=== PATIENT | female | born 1955 | race Caucasian/White ===

== ENCOUNTER 2021-04-16 10:25 | Outpatient (REF) | payer MEDICARE, MEDICAID, SELFPAY ==
--- NOTE | ~2021-04-16 | CT_ITS ---
EXAMINATION: CT HEAD WITHOUT CONTRAST CLINICAL INFORMATION: Hyponatremia. COMPARISON: None TECHNIQUE: Contiguous axial imaging was performed from the skull base to vertex without intravenous administration of contrast. This CT examination was performed using dose optimization techniques as appropriate, variously including the following: *Automated exposure control *Adjustment of mA and/or kV according to patient size (this includes techniques or standardized protocols for targeted exams where dose is matched to indication/reason for exam; i.e. extremities or head) *Use of iterative reconstruction technique DLP: 783 mGy-cm FINDINGS: There is no evidence of acute intracranial hemorrhage or territorial infarction. No abnormal mass effect or midline shift is seen. Sawyer to white matter differentiation is well preserved. No extra-axial fluid collections are identified. The ventricles are normal in size. There is no abnormal attenuation within the brain parenchyma. Cavernous carotid calcifications. The osseous structures and soft tissues are normal. Right maxillary sinus hyperostosis. Mucosal thickening partially imaged within the inferior maxillary sinus, polypoid. Remainder of the paranasal sinuses are clear. Mastoid air cells are pneumatized. CT/CT head/brain wo con IMPRESSION: Unremarkable CT imaging appearance of the brain. Chronic changes of the right maxillary sinus indicative of chronic sinusitis, without significant active inflammation.
== END 2021-04-16 10:26 | disposition home or self-care (01) ==
LOC: HO.CT 10:25
PROVIDERS: PCP Hospitalist; Visit Provider Hospitalist
DX: E87.1 Hypo-osmolality and hyponatremia (principal)
CPT/HCPCS: 70450

== ENCOUNTER 2021-04-23 12:23 | Outpatient (REF) | payer MEDICARE, MEDICAID, SELFPAY ==
--- NOTE | ~2021-04-23 | MM_ITS ---
EXAMINATION: MM SCREENING DIGITAL BREAST TOMOSYNTHESIS, BILATERAL CLINICAL INFORMATION: Screening. Asymptomatic. Benign left breast surgery 2008. The lifetime risk of breast cancer based on the Tyrer-Cuzick Model is 5%. COMPARISON: Mammography: 07/25/2019, 07/10/2018, 05/26/2017 TECHNIQUE: Digital breast tomosynthesis is performed in both the craniocaudal and mediolateral oblique views along with computer-aided detection (CAD). Synthesized 2D images are generated from the tomosynthesis. FINDINGS: There are scattered areas of fibroglandular density (ACR BI-RADS breast composition Category b). There are no significant masses, abnormal calcifications, or other abnormalities. Parenchymal pattern is similar to prior exams. There is no developing density. No significant changes. The axilla are unremarkable. MM/MM tomosynthesis screening BI IMPRESSION: No mammographic evidence of malignancy. ASSESSMENT: BI-RADS 1: Negative RECOMMENDATION: Routine annual mammography screening. This patient's information was entered into a reminder system with a target due date for their next mammogram.
== END 2021-04-23 12:24 | disposition home or self-care (01) ==
LOC: HO.MAMMO 12:23
PROVIDERS: Visit Provider Hospitalist
DX: Z12.31 Encounter for screening mammogram for malignant neoplasm of breast (principal)
CPT/HCPCS: 77063; 77067

== ENCOUNTER 2021-11-24 19:43 | Inpatient (IN) | payer MEDICARE, MEDICAID, SELFPAY ==
--- NOTE | ~2021-11-24 | CT_ITS ---
EXAMINATION: CT HEAD WITHOUT CONTRAST CLINICAL INFORMATION: Encephalopathy. Rule out intracranial process. COMPARISON: 04/16/2021 TECHNIQUE: Contiguous axial imaging was performed from the skull base to vertex without intravenous contrast. This CT examination was performed using dose optimization techniques as appropriate, variously including the following: * Automated exposure control * Adjustment of mA and/or kV according to patient size (this includes techniques or standardized protocols for targeted exams where dose is matched to indication/reason for exam; i.e. extremities or head) Use of iterative reconstruction technique DLP: 748 mGy-cm. FINDINGS: There is no evidence of acute intracranial hemorrhage or territorial infarction. No abnormal mass effect or midline shift is seen. Sawyer to white matter differentiation is well preserved. No extra-axial fluid collections are identified. No hydrocephalus. Proportional prominence of the ventricles and sulcal spaces is consistent with mild volume loss. There is no abnormal attenuation within the brain parenchyma. The osseous structures and soft tissues are normal. Mild opacification of the right maxillary sinus and right ethmoid air cells. Significant opacification of the frontal sinuses. The mastoid air cells and visualized portions of the paranasal sinuses are otherwise well aerated. CT/CT head/brain wo con IMPRESSION: No acute intracranial pathology. Paranasal sinus opacification.
--- NOTE | ~2021-11-24 | XR_ITS ---
EXAMINATION: XR CHEST CLINICAL INFORMATION: Respiratory distress COMPARISON: Chest 11/27/2021 TECHNIQUE: Frontal view of the chest was obtained. FINDINGS: The lungs are hypoexpanded with bilateral parahilar increased markings and opacification likely CHF. Underlying interstitial pneumonitis cannot be excluded. There is dense left lower lobe opacity at this time could be secondary to underexposure. There is a right central venous catheter with its tip in proximal to mid SVC. Endotracheal tube and enteric tube have been removed. XR/XR chest 1V IMPRESSION: Findings suggestive of CHF. Interstitial pneumonitis cannot be excluded. There is dense levels lower lobe consolidation. Endotracheal tube and enteric tube have been removed. Right jugular central venous catheter tip remains in proximal to mid SVC.
--- NOTE | ~2021-11-24 | CT_ITS ---
EXAMINATION: CT ABDOMEN AND PELVIS WITH CONTRAST CLINICAL INFORMATION: Query fistula COMPARISON: CT abdomen pelvis 12/08/2021 TECHNIQUE: Multidetector volumetric images were obtained from the superior aspect of the liver through the pubic symphysis following administration 85 mL of Omnipaque 350 intravenous contrast. Sagittal and coronal reformatted images were obtained on the technologist's workstation. Oral contrast: No This CT examination was performed using dose optimization techniques as appropriate, variously including the following: *Automated exposure control *Adjustment of mA and/or kV according to patient size (this includes techniques or standardized protocols for targeted exams where dose is matched to indication/reason for exam; i.e. extremities or head) *Use of iterative reconstruction technique DLP: 678 mGy-cm FINDINGS: LUNG BASES: Trace right pleural effusion, decreased from prior. ABDOMINAL AND PELVIC WALL: Skin thickening over the ventral abdominal and pelvic wall with infiltration of the underlying subcutaneous fat, recommend correlation with direct visualization to exclude soft tissue infection. Subcutaneous defect with surgical drain and presumed packing material noted in the gluteal cleft soft tissues overlying the sacrum with multiple foci of subcutaneous gas, without sai underlying fluid collection. LIVER AND BILIARY TREE: The liver is normal in size, shape, and attenuation. GALLBLADDER: Cholelithiasis. Motion degradation somewhat limits evaluation of the gallbladder, making wall thickening or subtle inflammatory change difficult to exclude. PANCREAS: Unremarkable SPLEEN: Unremarkable ADRENAL GLANDS: Unremarkable. KIDNEYS AND URETERS: Unremarkable. UPPER GASTROINTESTINAL TRACT: Small hiatal hernia. VASCULAR: Unremarkable. LYMPH NODES/PERITONEUM: No lymphadenopathy. FREE FLUID: No free fluid. BLADDER: Arias catheter decompresses the bladder. PELVIC VISCERA: A 4.7 x 3.7 cm unilocular right adnexal simple cyst, previously 5.1 x 2.4 cm. LOWER GASTROINTESTINAL TRACT: A tract of soft tissue with subtle gas is noted tracking posteriorly from the rectum at 6:00, 3:77 into the gluteal musculature, left lateral to the sacrum suggestive of a fistulous track, communicating with the gluteal defect. OSSEOUS STRUCTURES: Unremarkable. CT/CT abdomen pelvis w con IMPRESSION: Subcutaneous defect with surgical drain and presumed packing material noted in the gluteal cleft soft tissues overlying the sacrum with multiple foci of subcutaneous gas, without sai underlying fluid collection. A tract of soft tissue with subtle gas is noted tracking posteriorly from the rectum at 6:00 into the gluteal musculature, left lateral to the sacrum suggestive of a fistulous track, communicating with the gluteal defect. Skin thickening over the ventral abdominal and pelvic wall with infiltration of the underlying subcutaneous fat, recommend correlation with direct visualization to exclude soft tissue infection. Cholelithiasis. Motion degradation somewhat limits evaluation of the gallbladder, making wall thickening or subtle inflammatory change difficult to exclude on the basis of this exam and if any clinical concern an ultrasound could be obtained. A 4.7 cm unilocular simple appearing right adnexal cyst. Recommend follow-up ultrasound in 6-12 months. Trace right pleural effusion decreased from prior.
--- NOTE | ~2021-11-24 | XR_ITS ---
EXAMINATION: XR CHEST CLINICAL INFORMATION: NG tube. ET tube. COMPARISON: None TECHNIQUE: Frontal portable view of the chest was obtained. 8:43 PM FINDINGS: Tubes and lines: 1. Endotracheal tube catheter 2.5 cm above gisselle. 2. Right IJ catheter. 4 cm above the cavoatrial junction. This is unchanged since prior study. 3. NG tube. Catheter passes down into the stomach. Catheter tip below lower margin of the film. There is continued dense left mid and lower lung with silhouetting of the left diaphragm. Central pulmonary vascular prominence remains unchanged. No pneumothorax. XR/XR chest 1V IMPRESSION: 1. Endotracheal tube catheter 2.5 cm above gisselle. 2. Right IJ catheter. 4 cm above the cavoatrial junction. 3. NG tube. Catheter passes down into the stomach. Catheter tip below lower margin of the film. 4. Persistent pulmonary vascular congestion. 5. Persistent dense left mid and lower lung.
--- NOTE | ~2021-11-24 | XR_ITS ---
EXAMINATION: XR CHEST CLINICAL INFORMATION: Chest COMPARISON: 06/24/2012 TECHNIQUE: Frontal view of the chest was obtained. FINDINGS: Since 2012, the heart size is increased but is still within normal limits. Increased patchy density seen at the right lung base and to a lesser extent left. A small left pleural effusion may be present. There is mild upper zone redistribution suggesting mild pulmonary vascular congestion but no gross edema. XR/XR chest 1V IMPRESSION: Mild pulmonary vascular congestion with right basilar patchy opacity in question of small left pleural effusion.
--- NOTE | ~2021-11-24 | CT_ITS ---
EXAMINATION: CT ABDOMEN AND PELVIS WITHOUT CONTRAST CLINICAL INFORMATION: Abdominal pain COMPARISON: 06/27/2018 TECHNIQUE: Multidetector volumetric imaging was performed from the superior aspect of the liver through the pubic symphysis. Sagittal and coronal reformatted images were obtained on the technologist's workstation. This CT examination was performed using dose optimization techniques as appropriate, variously including the following: *Automated exposure control *Adjustment of mA and/or kV according to patient size (this includes techniques or standardized protocols for targeted exams where dose is matched to indication/reason for exam; i.e. extremities or head) *Use of iterative reconstruction technique DLP: 1238 mGy-cm FINDINGS: LUNG BASES: Small right pleural effusion with accompanying atelectasis. LIVER, GALLBLADDER, AND BILIARY TREE: The liver is normal in size, shape, and attenuation. No focal hepatic lesion or biliary ductal dilatation is present. Cholelithiasis.. Small perihepatic ascites. PANCREAS: Unremarkable. SPLEEN: Unremarkable. ADRENAL GLANDS: Unremarkable. KIDNEYS AND URETERS: The kidneys are normal in size, shape, and attenuation. No hydronephrosis, hydroureter, or calculi seen. No perinephric stranding. BLADDER: Unremarkable. GASTROINTESTINAL TRACT: No bowel related abnormalities. Small ascites. ABDOMINAL WALL: No hernias. Anasarca. LYMPH NODES: Normal. VASCULAR: Aorta is mildly atherosclerotic but normal caliber. PELVIC VISCERA: Uterus and left adnexa unremarkable. Interval increase in size of a cyst within the right adnexa measuring 5.2 x 3.9 x 4.5 cm, previously 3.2 x 2.2 x 2.8 cm by my measurements. Small volume pelvic free fluid OSSEOUS STRUCTURES: Unremarkable. CT/CT abdomen pelvis wo con IMPRESSION: * No acute findings within the abdomen or pelvis to definitively explain the patient's symptomatology. * Cholelithiasis. If there is concern for cholecystitis, consider right upper quadrant ultrasound. * Anasarca and small ascites. * Small right pleural effusion with accompanying atelectasis. * Interval increase in size of a simple fluid attenuating cyst within the right adnexa now measuring up to 5.2 cm, previously 3.2 cm in 2018. Recommend pelvic ultrasound for further evaluation.
--- NOTE | ~2021-11-24 | XR_ITS ---
EXAMINATION: XR CHEST CLINICAL INFORMATION: TLC placement COMPARISON: Chest x-ray 11/27/2019 TECHNIQUE: Frontal portable view of the chest was obtained. 2100 hours FINDINGS: Tubes and lines: 1. CVP catheter tip in superior vena cava approximately 4 cm proximal to the caval atrial junction. There is no pneumothorax. 2. Gastric tube tip and sidehole in stomach. Persistent moderate central pulmonary vascular prominence. Persistent hazy opacity at the mid and right lower lung. This may be due to airspace disease and pleural effusion. XR/XR chest 1V IMPRESSION: 1. CVP catheter tip in superior vena cava approximately 4 cm proximal to the caval atrial junction. There is no pneumothorax. 2. Gastric tube tip and sidehole in stomach. 3. Persistent hazy density right lung base due to airspace disease and pleural effusion.
--- NOTE | ~2021-11-24 | XR_ITS ---
EXAMINATION: XR CHEST CLINICAL INFORMATION: Hypoxia COMPARISON: None TECHNIQUE: Frontal view of the chest was obtained. FINDINGS: There is cardiomegaly with prominent pulmonary vascularity suggestive of CHF/pulmonary edema. Right jugular central venous catheter tip remains in mid SVC. The lungs are expanded and clear. No gross bony abnormality seen. XR/XR chest 1V IMPRESSION: Cardiomegaly with mild CHF. Right jugular central venous catheter is in proximal SVC. No change from previous exam 12/17/2021.
--- NOTE | ~2021-11-24 | XR_ITS ---
EXAMINATION: XR CHEST CLINICAL INFORMATION: Hypoxia COMPARISON: Previous chest x-ray most recent 12/31/[address] 12/08/2021 TECHNIQUE: Frontal view of the chest was obtained. FINDINGS: The cardiac silhouette is enlarged but stable. There is volume loss to the left hemithorax. There is improvement in the previously identified left lower lobe pneumonia. There is right-sided pulmonary venous redistribution and increased perihilar markings. Findings are questionable for mild CHF versus pneumonia. There is no pleural effusion. There is no pneumothorax. There is a right upper extremity PICC line with tip projecting over the distal right subclavian vein/very proximal SVC. There are degenerative changes of the spine. XR/XR chest 1V IMPRESSION: Volume loss to the left hemithorax. Improving left lower lobe pneumonia. Stable enlargement of the cardiac silhouette. Right perihilar airspace disease. Differential would include pulmonary edema and pneumonia.
--- NOTE | ~2021-11-24 | XR_ITS ---
EXAMINATION: XR CHEST CLINICAL INFORMATION: Shortness of breath COMPARISON: 12/13/2021 TECHNIQUE: Frontal view of the chest was obtained. FINDINGS: Right IJ central line tip lies in the region of the upper to mid SVC. Lung volumes are symmetric. Central vasculature appears mildly prominent. Possible small left pleural effusion. No appreciable pneumothorax. The cardiomediastinal silhouette is stable. No acute osseous findings are seen. XR/XR chest 1V IMPRESSION: Mild prominence of the central vasculature may reflect a degree of congestion. Possible small left pleural effusion.
--- NOTE | ~2021-11-24 | XR_ITS ---
EXAMINATION: XR CHEST CLINICAL INFORMATION: Shortness of breath COMPARISON: Chest x-rays of 11/24/2021 and 06/24/2012 TECHNIQUE: Frontal view of the chest was obtained. FINDINGS: The cardiomediastinal silhouette is unchanged. The patient is mildly rotated to the left. No abnormal tracheal deviation. Lungs are hypoexpanded. Hazy opacification in the right mid and lower lung zone is not significantly changed compared to last x-ray of 11/24/2021. Small right pleural effusion is noted on the CT scan of the abdomen and pelvis of 11/25/2021. No evidence of from pulmonary edema or pneumothorax. No acute osseous abnormality. XR/XR chest 1V IMPRESSION: No significant interval change is noted in the appearance of the chest compared to previous x-ray of 11/24/2021. Hazy opacification in the right mid and lower lung zone likely represent combination of layering pleural effusion and associated airspace opacities.
--- NOTE | ~2021-11-24 | XR_ITS ---
EXAMINATION: XR CHEST CLINICAL INFORMATION: Follow-up bronchoscopy for mucous plug of the left lower lobe COMPARISON: 12/06/2021 and 12/08/2021 TECHNIQUE: Frontal view of the chest was obtained. FINDINGS: Endotracheal tube terminates 4 cm above the gisselle. Enteric tube extends into the stomach. Right internal jugular central venous catheter terminates over the mid SVC. Cardiac leads overlie the chest. The lungs are well expanded. There is a persistent retrocardiac opacity which may represent left lower lobe atelectasis. There is improved aeration of the left midlung. Patchy opacity of the right midlung again noted, as seen on prior. No pneumothorax. The cardiomediastinal silhouette it is unchanged. XR/XR chest 1V IMPRESSION: Improved aeration of the left midlung with persistent retrocardiac opacity which may represent residual left lower lobe atelectasis. Similar right lung opacities. Endotracheal tube terminates 4 cm above the gisselle.
--- NOTE | ~2021-11-24 | XR_ITS ---
EXAMINATION: XR CHEST CLINICAL INFORMATION: Dyspnea. COMPARISON: Chest 12/11/2021 TECHNIQUE: Frontal view of the chest was obtained. FINDINGS: The lungs are well-expanded with prominent bilateral interstitial markings question mild CHF versus interstitial pneumonitis. Patchy opacity in the left lung base is stable. There is a right jugular central venous catheter stable. Endotracheal tube and enteric tube have been removed. No gross bony abnormality seen. XR/XR chest 1V IMPRESSION: Endotracheal tube and enteric tube have been removed. Bilateral parahilar prominent interstitial markings and patchy opacity in the left lung base is unchanged.
--- NOTE | ~2021-11-24 | XR_ITS ---
EXAMINATION: XR CHEST CLINICAL INFORMATION: Increased work of breathing. COMPARISON: Chest radiograph from earlier today at 4:38 AM. TECHNIQUE: AP view of the chest was obtained. FINDINGS: A right IJ CVC terminates at the level of the cavoatrial junction. Stable cardiomegaly. Mildly increased central vasculature engorgement, more apparent in the right hilum. No large pleural effusion. No pneumothorax. No acute osseous abnormalities. XR/XR chest 1V IMPRESSION: Suspect worsening pulmonary edema manifested by increased interstitial and vascular markings centrally.
--- NOTE | ~2021-11-24 | XR_ITS ---
EXAMINATION: XR CHEST CLINICAL INFORMATION: Right internal jugular replacement COMPARISON: 12/09/2021 TECHNIQUE: Frontal view of the chest was obtained. FINDINGS: Endotracheal tube terminates 5 cm above the gisselle. Enteric tube extends into the stomach. Right internal jugular central venous catheter terminates over the mid SVC. Cardiac leads overlie the chest. The lungs are well expanded. Persistent small left pleural effusion with retrocardiac opacity. Hazy opacity at the right base is unchanged. Increasing opacification of the right upper lung. No pneumothorax. The cardiomediastinal silhouette remains prominent. XR/XR chest 1V IMPRESSION: Endotracheal tube terminates 5 cm above the gisselle. There is a right internal jugular central venous catheter terminating over the mid SVC. No pneumothorax. Increasing hazy opacification of the right upper lung with persistent right basilar opacity. Persistent retrocardiac opacity likely representing comminution of pleural effusion with atelectasis/pneumonia.
--- NOTE | ~2021-11-24 | CT_ITS ---
EXAMINATION: CT CHEST, ABDOMEN AND PELVIS WITHOUT CONTRAST CLINICAL INFORMATION: Worsening hypoxia and abdominal distention COMPARISON: CT abdomen pelvis 11/25/2021 and multiple prior chest radiographs TECHNIQUE: Multidetector volumetric imaging was performed from the thoracic inlet through the pubic symphysis without IV contrast. Sagittal and coronal reformatted images were obtained on the technologist's workstation. This CT examination was performed using dose optimization techniques as appropriate, variously including the following: *Automated exposure control *Adjustment of mA and/or kV according to patient size (this includes techniques or standardized protocols for targeted exams where dose is matched to indication/reason for exam; i.e. extremities or head) *Use of iterative reconstruction technique DLP: 1545 mGy-cm FINDINGS: CHEST: Lung: The endotracheal tube protrudes just slightly into the very proximal portion of the right mainstem bronchus and should be pulled back by at least 3 cm. There is left lower lobe collapse/consolidation with diffuse patchy infiltrates involving the right upper lobe and right lower lobe. Some focal patchy infiltrates also present in the left upper lobe. Mediastinum: Endotracheal tube as above. Right IJ line with tip in SVC. Main pulmonary artery dilated at 3.5 cm suggesting pulmonary hypertension. Small mediastinal lymph nodes are present but there is no mediastinal or hilar lymphadenopathy seen. Pericardium/Pleura: A small left pleural effusion is seen and a trace right pleural effusion is present. Chest Wall/Axilla: Unremarkable ABDOMEN/PELVIS: Peritoneal Space: A small amount of ascites is present. Liver, Gallbladder, Biliary Tree: The liver is normal in size, shape, and attenuation. No focal hepatic lesion or biliary ductal dilatation is present. The gallbladder contains at least one dependent gallstone but is otherwise unremarkable with no evidence of gallbladder wall thickening, or obvious pericholecystic inflammatory changes. Pancreas: Unremarkable Spleen: Unremarkable Adrenal Glands: Unremarkable Kidneys and Ureters: The kidneys are normal in size, shape, and attenuation. No hydronephrosis, hydroureter, or calculi seen. No perinephric stranding. Bladder: Arias catheter in the bladder which is empty. Gastrointestinal Tract: The NG tube is present with its tip in the duodenum. A rectal tube is in place. A large amount of fluid is present in a dilated right colon measuring about 9 cm. There is mild gaseous distention of the transverse colon. A focal point of obstruction is not seen. Large amount of fluid is present in distal jejunal loops as well. No focal point of obstruction is not seen. Findings more suggestive of ileus. The appendix is not seen but there is no evidence of appendicitis. Abdominal Wall: No significant hernia is appreciated. Lymph Nodes: No lymphadenopathy. Vascular: The aorta demonstrates calcific atherosclerotic plaque without aneurysm... The IVC appears unremarkable. PELVIC VISCERA: Surgically absent OSSEUS STRUCTURES: Mild degenerative changes are noted in the spine. No bony destructive lesions are seen. CT/CT abdomen pelvis wo con IMPRESSION: * ET tube protrudes into the right mainstem bronchus slightly and should be pulled back at least 3 cm. * Bilateral multifocal infiltrates with small left effusion and trace right effusion. Collapse/consolidation left lower lobe. * Cholelithiasis. * Dilated fluid-filled colon and some mildly dilated. Small is small bowel. Focal point of obstruction is not seen. Findings may represent an ileus. This critical result was discussed with Dr. Mehta, at 12:45 AM on 12/08/2021 and it was ascertained that the content and urgency of the report was understood at the time of direct communication.
--- NOTE | ~2021-11-24 | IR_ITS ---
PROCEDURE: IR INSERTION OF PICC CLINICAL INFORMATION: Difficult patient failed attempt of PICC line insertion by nursing. COMPARISON: None TECHNIQUE: Following obtaining consent from the referring physician, patient was placed on fluoroscopy table and limited ultrasound imaging was obtained through the right arm. An optimal site was selected and marked on the upper arm. The marked site was cleaned and draped in usual sterile manner 1% lidocaine was injected at the puncture site. Under sterile ultrasound guidance a single wall needle was advanced and right basilic vein was punctured. After obtaining venous return a thin guidewire was advanced under fluoroscopy and placed in SVC and the needle withdrawn. A 5-Chilean dilator sheath was introduced over the guidewire. The guidewire and the dilator were removed and a precut 5-Chilean single-lumen PICC catheter was advanced over the guidewire and through the peel-away sheath into the SVC. The guidewire and the peel-away sheath were removed and a single image obtained over the chest for documentation. The catheter was flushed with saline followed by heparin. Simple dressing applied at the puncture site. All elements of maximal sterile barrier technique followed including use of cap, mask, sterile gown, sterile gloves, a sterile full body drape and hand hygiene. Also followed skin preparation with 2% chlorhexidine for cutaneous antisepsis, and sterile ultrasound preparation with sterile gel and probe cover when applicable. Dr. Rony Hogan was present during the exam for sedation. FLUOROSCOPY TIME: 0.7 minutes. DOSE AREA PRODUCT: 275 cGycm2 FINDINGS: On preliminary ultrasound imaging there is a very small cephalic vein. The basilic vein and the brachial veins are patent. Approximately 35 cm long single-lumen PICC catheter was advanced through the right basilic vein with its tip in proximal SVC. Patient tolerated procedure extremely well. IR/IR cvc insert peripheral IMPRESSION: Successful ultrasound and fluoroscopy-guided placement of right PICC catheter, 35 cm long, with its tip in proximal SVC, ready for use.
[2021-11-24 20:03] VITALS: BP 125/89; BP 170/110; PULSE 149; PULSE 150; RESP 25; TEMP 37; O2SAT 97; O2SAT 98; BMI 61.2
--- NOTE | 2021-11-24 20:09 | ECG_ITS ---
Test Reason : DYSRYTHMIA Blood Pressure : / mmHG Vent. Rate : 134 BPM Atrial Rate : 000 BPM P-R Int : 000 ms QRS Dur : 076 ms QT Int : 266 ms P-R-T Axes : 000 080 095 degrees QTc Int : 397 ms Atrial flutter with rapid rate Low voltage QRS Abnormal ECG When compared with ECG of 14-APR-2018 00:09, rhythm change Referred By: Generic ED Physician Electronically Signed By:NAZANIN GARDNER
--- NOTE | 2021-11-24 20:12 | ED.CHESTPAIN ---
HPI - Chest Pain General Chief Complaint: Chest Pain Stated Complaint: Weakness Time Seen by Provider: 11/24/21 20:12 Source: patient Mode of arrival: EMS Limitations: no limitations History of Present Illness HPI narrative: Patient's history of alcoholic cirrhosis dementia hyponatremia and chronic renal disease schizoaffective disorder asthma came from the shelter for palpitation and shortness of breath started prior to arrival when EMS reached was between 90-150 AFib. Patient felt dizzy and lightheaded never had similar episode in the past palpitations started before the chest pain no fever no chills also patient has leg swelling which is going on for last few days Related Data Allergies Allergy/AdvReac Type Severity Reaction Status Date / Time Sulfa (Sulfonamide Allergy Intermediate HIVES Verified 11/24/21 20:49 Antibiotics) Review of Systems Review of Systems: Yes all other systems are reviewed and are negative [facility] Social History Social History Advance Directives: No Physical Exam Vital Signs: Vital Signs: Last Vital Signs Temp 98.6 F 11/24/21 20:03 Pulse 79 11/24/21 22:11 Resp 24 H 11/24/21 22:11 BP 106/62 11/24/21 22:11 Pulse Ox 92 11/24/21 22:11 BMI result Body Mass Index 61.2 Appearance: Alert. Oriented X3. No acute distress. Eyes: No pallor/icterus ENT: Pharynx normal. Oral Mucosa moist Neck: Normal inspection. Neck supple. CVS: Tachycardia irregular irregular no murmur rub or gallop, Pulses normal. Respiratory: No respiratory distress. Equal air entry bilateral, no wheezing/rales/rhonchi Abdomen: Soft and nontender. Bowel sounds are present, no mass palpable, no CVA tenderness Skin: Skin warm and dry. Normal skin color. Normal skin turgor. Extremities: 2+ lower extremity edema. No calf tenderness Neuro: Oriented X 3. No motor deficit. No sensory deficit.No cerebellar signs , cranial nerves II-XII intact MDM - Chest Pain MDM Narrative Medical decision making narrative: 00 Patient new onset of atrial fibrillation heart rate 162 at 8 am [place] feeling much better will give him got CardizemX2 plan to admit had a Blake score of 3 will start her on Eliquis patient labs showed elevated potassium and low sodium patient never had high potassium in the past looks like lab error will repeat the potassium also check the magnesium and TSH 0030 patient received 2 doses of Cardizem is still heart rate increased to 140 will start on Cardizem drip patient has elevated WBC count chest x-ray showed possible infiltrate likely pneumonia patient been complaining of cough for last 2 days with mucopurulent phlegm but will start her on antibiotics for possible pneumonia will do the CT scan of the abdomen as patient also complaining of diffuse abdominal pain. Patient has low sodium which seems to be chronic with SIADH will do the fluid restrictions had hyperkalemia of a potassium 5.8 was given calcium gluconate Lab Data Attestation: I reviewed the patient's lab results. Result diagrams: 11/24/21 20:38 11/24/21 22:10 Labs: Lab Results 11/24/21 11/24/21 11/24/21 Range/Units 20:38 20:38 20:38 WBC 17.9 H (4.8-10.8) X10*3/uL RBC 5.14 (4.20-5.50) X10*6/uL Hgb 9.8 L (12.0-16.0) g/dl Hct 33.7 L (37.0-47.0) % MCV 65.6 L (80.0-98.0) fL MCH 19.1 L (27.0-33.0) pg MCHC 29.1 L (31.0-35.0) g/dl RDW 20.6 H (11.0-16.0) % Plt Count 395 (160-400) X10*3/uL MPV 8.8 L (9.4-12.3) fL Immature Gran % (Auto) Cancelled Neut % (Auto) Cancelled Lymph % (Auto) Cancelled [place] % (Auto) Cancelled Eos % (Auto) Cancelled Baso % (Auto) Cancelled Lymph # (Auto) Cancelled [place] # (Auto) Cancelled Eos # (Auto) Cancelled Baso # (Auto) Cancelled Abs Immat Gran (auto) Cancelled Absolute Neuts (auto) Cancelled Absolute Nucleated RBC 0.140 H (0.0-0.012) X10*3/uL Nucleated RBC % (auto) 0.8 H (0.0-0.2) /100WBC Neutrophils % (Manual) 89 H (45-73) % Band Neutrophils % 2 L (3-5) % Lymphocytes % (Manual) 6 L (20-40) % Monocytes % (Manual) 3 (2-11) % Abs Neuts (Manual) 16.3 H (2.0-8.3) X10*3/uL Lymphocytes # (Manual) 1.1 L (1.2-4.9) X10*3/uL Monocytes # (Manual) 0.5 (0.1-1.2) X10*3/uL Platelet Estimate NORMAL (NORMAL) Plt Morphology Comment NORMAL RBC Morphology NOTED Acanthocytes (Spur) 1+ (0-2) /OIF PT (9.9-13.0) SEC INR (0.9-1.1) APTT (24.1-38.0) SEC Sodium 122 L (135-145) mmol/L Potassium 6.5 H* (3.3-5.1) mmol/L Chloride 89 L (96-108) mmol/L Carbon Dioxide 27 (22-29) mmol/L Anion Gap 13 (12-20) BUN 14 (9-16) mg/dL Creatinine 0.84 (0.5-1.4) mg/dL Estim Creat Clear Calc 81.9 Estimated GFR > 60 Random Glucose 90 (60-115) mg/dL Osmolality (281-305) mosm/kg Calcium 8.8 (8.4-10.2) mg/dL Magnesium 1.9 (1.6-2.6) mg/dL Troponin I High Sens 4.1 (<3.5-17.0) ng/L B-Natriuretic Peptide 78 (<100) pg/mL TSH 1.76 (0.32-4.0) uIU/mL Urine Color Urine Appearance Urine pH (5.0-8.0) Ur Specific [place] (1.005-1.025) Urine Protein (NEG-TRACE) MG/DL Urine Glucose (UA) (NEG) MG/DL Urine Ketones (NEG) MG/DL Urine Blood (NEG) Urine Nitrite (NEG) Ur Leukocyte Esterase (NEG) Urine RBC (0) /HPF Urine WBC (0-4) /HPF Ur Squamous Epith Cells /LPF Urine Bacteria /LPF Urine Mucus /LPF COVID-19 (JESSY) (Negative) COVID-19 Clin Com 11/24/21 11/24/21 11/24/21 Range/Units 20:38 20:38 20:38 WBC (4.8-10.8) X10*3/uL RBC (4.20-5.50) X10*6/uL Hgb (12.0-16.0) g/dl Hct (37.0-47.0) % MCV (80.0-98.0) fL MCH (27.0-33.0) pg MCHC (31.0-35.0) g/dl RDW (11.0-16.0) % Plt Count (160-400) X10*3/uL MPV (9.4-12.3) fL Immature Gran % (Auto) Neut % (Auto) Lymph % (Auto) [place] % (Auto) Eos % (Auto) Baso % (Auto) Lymph # (Auto) [place] # (Auto) Eos # (Auto) Baso # (Auto) Abs Immat Gran (auto) Absolute Neuts (auto) Absolute Nucleated RBC (0.0-0.012) X10*3/uL Nucleated RBC % (auto) (0.0-0.2) /100WBC Neutrophils % (Manual) (45-73) % Band Neutrophils % (3-5) % Lymphocytes % (Manual) (20-40) % Monocytes % (Manual) (2-11) % Abs Neuts (Manual) (2.0-8.3) X10*3/uL Lymphocytes # (Manual) (1.2-4.9) X10*3/uL Monocytes # (Manual) (0.1-1.2) X10*3/uL Platelet Estimate (NORMAL) Plt Morphology Comment RBC Morphology Acanthocytes (Spur) /OIF PT 14.7 H (9.9-13.0) SEC INR 1.3 H (0.9-1.1) APTT 38.7 H (24.1-38.0) SEC Sodium (135-145) mmol/L Potassium (3.3-5.1) mmol/L Chloride (96-108) mmol/L Carbon Dioxide (22-29) mmol/L Anion Gap (12-20) BUN (9-16) mg/dL Creatinine (0.5-1.4) mg/dL Estim Creat Clear Calc Estimated GFR Random Glucose (60-115) mg/dL Osmolality 256 L (281-305) mosm/kg Calcium (8.4-10.2) mg/dL Magnesium (1.6-2.6) mg/dL Troponin I High Sens (<3.5-17.0) ng/L B-Natriuretic Peptide (<100) pg/mL TSH (0.32-4.0) uIU/mL Urine Color Urine Appearance Urine pH (5.0-8.0) Ur Specific [place] (1.005-1.025) Urine Protein (NEG-TRACE) MG/DL Urine Glucose (UA) (NEG) MG/DL Urine Ketones (NEG) MG/DL Urine Blood (NEG) Urine Nitrite (NEG) Ur Leukocyte Esterase (NEG) Urine RBC (0) /HPF Urine WBC (0-4) /HPF Ur Squamous Epith Cells /LPF Urine Bacteria /LPF Urine Mucus /LPF COVID-19 (JESSY) Negative (Negative) COVID-19 Clin Com See Note 11/24/21 11/25/21 Range/Units 22:10 00:40 WBC (4.8-10.8) X10*3/uL RBC (4.20-5.50) X10*6/uL Hgb (12.0-16.0) g/dl Hct (37.0-47.0) % MCV (80.0-98.0) fL MCH (27.0-33.0) pg MCHC (31.0-35.0) g/dl RDW (11.0-16.0) % Plt Count (160-400) X10*3/uL MPV (9.4-12.3) fL Immature Gran % (Auto) Neut % (Auto) Lymph % (Auto) [place] % (Auto) Eos % (Auto) Baso % (Auto) Lymph # (Auto) [place] # (Auto) Eos # (Auto) Baso # (Auto) Abs Immat Gran (auto) Absolute Neuts (auto) Absolute Nucleated RBC (0.0-0.012) X10*3/uL Nucleated RBC % (auto) (0.0-0.2) /100WBC Neutrophils % (Manual) (45-73) % Band Neutrophils % (3-5) % Lymphocytes % (Manual) (20-40) % Monocytes % (Manual) (2-11) % Abs Neuts (Manual) (2.0-8.3) X10*3/uL Lymphocytes # (Manual) (1.2-4.9) X10*3/uL Monocytes # (Manual) (0.1-1.2) X10*3/uL Platelet Estimate (NORMAL) Plt Morphology Comment RBC Morphology Acanthocytes (Spur) /OIF PT (9.9-13.0) SEC INR (0.9-1.1) APTT (24.1-38.0) SEC Sodium 121 L (135-145) mmol/L Potassium 5.8 H (3.3-5.1) mmol/L Chloride 89 L (96-108) mmol/L Carbon Dioxide 27 (22-29) mmol/L Anion Gap 11 L (12-20) BUN (9-16) mg/dL Creatinine (0.5-1.4) mg/dL Estim Creat Clear Calc Estimated GFR Random Glucose (60-115) mg/dL Osmolality (281-305) mosm/kg Calcium (8.4-10.2) mg/dL Magnesium (1.6-2.6) mg/dL Troponin I High Sens (<3.5-17.0) ng/L B-Natriuretic Peptide (<100) pg/mL TSH (0.32-4.0) uIU/mL Urine Color DK YELLOW Urine Appearance HAZY Urine pH 5.5 (5.0-8.0) Ur Specific [place] >= 1.030 H (1.005-1.025) Urine Protein 2+ H (NEG-TRACE) MG/DL Urine Glucose (UA) NEG (NEG) MG/DL Urine Ketones NEG (NEG) MG/DL Urine Blood NEG (NEG) Urine Nitrite NEG (NEG) Ur Leukocyte Esterase NEG (NEG) Urine RBC 0 (0) /HPF Urine WBC 10-14 H (0-4) /HPF Ur Squamous Epith Cells 3+ /LPF Urine Bacteria 3+ /LPF Urine Mucus 2+ /LPF COVID-19 (JESSY) (Negative) COVID-19 Clin Com ECG Data ECG #1: Attestation: I personally reviewed and interpreted this ECG as follows: Interpretation: Atrial fibrillation with heart rate 134 beats per minute low voltage no acute STT wave changes no acute ischemia Critical Care Time Critical Care Time Critical Care Time: Yes Total Critical Care Time: 60 Attestation: I spent 60 minutes of critical care, with interventions, assessments, speaking to patient, consultants, Discharge Plan Discharge Clinical Impression: Atrial fibrillation with RVR, Chronic hyponatremia, Acute hyperkalemia Pneumonia Qualifiers: Pneumonia type: due to unspecified organism Laterality: right Lung location: lower lobe of lung Qualified Code(s): J18.9 - Pneumonia, unspecified organism Patient Disposition: Admitted As Inpatient
[2021-11-24 20:45] LABS: Hematocrit 33.7 % (37.0-47.0); Hemoglobin 9.8 g/dl (12.0-16.0); Mean Corpuscular HGB Conc 29.1 g/dl (31.0-35.0); Mean Corpuscular Hemoglobin 19.1 pg (27.0-33.0); Mean Corpuscular Volume 65.6 fL (80.0-98.0); Mean Platelet Volume 8.8 fL (9.4-12.3); NRBC Pct Auto 0.8 /100WBC (0.0-0.2); Platelet Count 395 X10*3/uL (160-400); Red Blood Count 5.14 X10*6/uL (4.20-5.50); Red Cell Distribution Width 20.6 % (11.0-16.0)
[2021-11-24] MEDS: dilTIAZem HCL 50 MG/10 ML VIAL 10 MG IVPUSH ×2 (20:50→22:02)
[2021-11-24 20:51] LABS: WBC ABN SCTR FOR CBC 1
[2021-11-24 20:53] VITALS: BP 125/70; PULSE 92; RESP 19; O2SAT 95
--- NOTE | 2021-11-24 20:56 | PC.NURSE ---
PT medicated with Diltiazem. PT reported decreased CP and SOB at this time. PT VSS.
[2021-11-24 21:00] LABS: COVID-19 Test Negative (Negative)
[2021-11-24 21:03] LABS: Band Neutrophils Percent 2 % (3-5); Lymphocytes Absolute Manual 1.1 X10*3/uL (1.2-4.9); Lymphocytes Percent Manual 6 % (20-40); Monocytes Absolute Manual 0.5 X10*3/uL (0.1-1.2); Monocytes Percent Manual 3 % (2-11); Neutrophils Absolute Manual 16.3 X10*3/uL (2.0-8.3); Neutrophils Percent Manual 89 % (45-73); White Blood Count 17.9 X10*3/uL (4.8-10.8)
[2021-11-24 21:04] LABS: Acanthocytes 1+ (0-2) /OIF; Platelet Estimate NORMAL (NORMAL); Platelet Morphology Comment NORMAL; RBC Morphology NOTED; Troponin-I High Sensitivity 4.1 ng/L (<3.5-17.0)
[2021-11-24 21:08] LABS: Anion Gap 13 (12-20); Blood Urea Nitrogen 14 mg/dL (9-16); Calcium 8.8 mg/dL (8.4-10.2); Carbon Dioxide 27 mmol/L (22-29); Chloride 89 mmol/L (96-108); Creatinine Clr Calc Pharmacy 81.9; Estimated Glomerular Filt Rate > 60; Glucose Random 90 mg/dL (60-115); Potassium 6.5 mmol/L (3.3-5.1); Sodium 122 mmol/L (135-145)
[2021-11-24 21:12] LABS: INTERNATIONAL NORM RATIO 1.3 (0.9-1.1); Prothrombin Time 14.7 SEC (9.9-13.0)
[2021-11-24 21:14] LABS: Partial Thromboplastin Time 38.7 SEC (24.1-38.0)
[2021-11-24 21:35] VITALS: PULSE 102; RESP 18; O2SAT 96
[2021-11-24 21:57] LABS: Magnesium 1.9 mg/dL (1.6-2.6)
[2021-11-24] MEDS: Apixaban 5 MG TABLET PO (22:01)
[2021-11-24 22:05] VITALS: BP 116/80; PULSE 130; RESP 22; O2SAT 94
[2021-11-24 22:11] VITALS: BP 106/62; PULSE 79; RESP 24; O2SAT 92
[2021-11-24 22:17] LABS: Thyroid Stimulating Hormone 1.76 uIU/mL (0.32-4.0)
[2021-11-24 22:32] LABS: Anion Gap 11 (12-20); Carbon Dioxide 27 mmol/L (22-29); Chloride 89 mmol/L (96-108); Potassium 5.8 mmol/L (3.3-5.1); Sodium 121 mmol/L (135-145)
[2021-11-24 22:37] LABS: Osmolality, Serum 256 mosm/kg (281-305)
[2021-11-24] MEDS: Calcium Gluconate/NaCl,Iso-Osm 2 GM/100 ML PLAST..BAG IV (23:31)
[2021-11-25] VITALS (8 sets, daily range): BP systolic 108–146; BP diastolic 50–92; PULSE 77–159; RESP 17–30; TEMP 36.4–36.6; O2SAT 91–97
[2021-11-25 00:09] LABS: B Type Natriuretic Peptide 78 pg/mL (<100)
[2021-11-25 00:46] LABS: Appearance Urine HAZY; Color Urine DK YELLOW; Glucose Urine UA NEG (NEG); Leukocyte Esterase Urine NEG (NEG); Nitrite Urine NEG (NEG); PH 5.5 (5.0-8.0); Specific Gravity - Urine >= 1.030 (1.005-1.025); UACC Culture Trigger NO; Urine Blood NEG (NEG); Urine Ketones NEG (NEG); Urine Protein 2+ MG/DL (NEG-TRACE)
[2021-11-25 00:53] LABS: Bacteria Urine 3+ /LPF; RBC Urine 0 /HPF (0); Squamous Epithelial Cell Urine 3+ /LPF
[2021-11-25 00:54] LABS: Mucus Urine 2+ /LPF; UACC CULT NO
[2021-11-25 02:07] LABS: Lactic Acid 1.2 mmol/L (0.5-2.0)
--- NOTE | 2021-11-25 02:14 | P.HPHOSP_ITS ---
History of Present Illness Date of Service: 11/25/21 Chief Complaint: shortness of breath, palpitations this is a 58-year-old female past medical history of alcoholic cirrhosis, dementia, hyponatremia, chronic renal disease, schizoaffective disorder, asthma who presents to the hospital from care home with complaints of palpitations and shortness of breath. Patient is also complaining back and abdominal pain that started today. she is vague about her symptoms but reports chronic back pain that is causing her a lot of pain now. She reports dyspnea on minimal exertion, lower extremity swelling for the past few days, denies any orthopnea or PND. She denies any cough, no fever or chills. no nausea or vomiting. no diarhea or constipation. No urinary symptoms/ On arrival of EMS at care home pt found to have HR ranging from 90-150s in A fib with RVR. No hx of such On arrival to ED pt found to have HR of 149, no other abnormal vitals. labs are significant for WBC count of 17.9, hemoglobin of 9.8 with dropped from 11.2, no problem INR of 1.3, potassium of 6.8, sodium of 121, potassium of 6.5 that improved to 5.8 see if no EKG changes glucose of 30 had, asthma of 256, UA positive for WBC with no nitrites or leukocyte Estrace. Abdominal CT shows no acute finding within the abdomen or pelvis, cholelithiasis, anasarca and small ascites. Small right pleural effusion with accompanying atelectasis. pt given one dose of Lovenox as well as diltiazem and will be admitted for further managemen Review of Systems Review of Systems: Yes all other systems are reviewed and are negative PENDING SALE TO [facility] Medical History (Updated 11/25/21 @ 07:11 by Tia Clay MD) Alcoholic cirrhosis of liver Asthma CKD (chronic kidney disease) Hyponatremia Schizoaffective disorder Pertinent family history: No history of CAD Surgical History (Updated 11/25/21 @ 07:10 by Tia Clay MD) No pertinent past surgical history Social History Advance Directives: No Meds Allergies Allergy/AdvReac Type Severity Reaction Status Date / Time Sulfa (Sulfonamide Allergy Intermediate HIVES Verified 11/24/21 20:49 Antibiotics) Active Medications: Current Medications Diltiazem HCl 125 mg/ Sodium (Chloride) 125 mls @ 0 mls/hr IVCONT .Q0M GINGER; Protocol Physical Exam Vital Signs and Narrative: Vital Signs: Last Vital Signs Temp 98.6 F 11/24/21 20:03 Pulse 79 11/24/21 22:11 Resp 24 H 11/24/21 22:11 BP 106/62 11/24/21 22:11 Pulse Ox 92 11/24/21 22:11 BMI result Body Mass Index 61.2 Const: General: cooperative and no acute distress Orientation/consciousness: patient oriented x3 Eyes: General: appearance normal, both eyes and all related structures Pupils: Equal, round and reactive pupils present Resp: Effort & Inspection: normal respiratory effort Auscultation: clear to auscultation bilaterally Cardio: Rate: regular rate Rhythm: regular rhythm GI: Other: no tenderness, no rebound or guarding Palpation (GI): Soft to palpation Auscultation: normal bowel sounds Skin: General skin exam: no rashes or lesions noted Neuro: General: patient oriented x3 Cranial nerves: Yes Equal, round and reactive pupils present Cognition (Neuro): normal cognition Extrem: Other: 1+ pitting edema General: Yes normal to inspection and Yes no pedal edema Results Labs CBC and Chem 7: 11/24/21 20:38 11/24/21 22:10 Labs: Laboratory Results - last 24 hr 11/24/21 11/24/21 11/24/21 20:38 20:38 20:38 MCV 65.6 L MCH 19.1 L MCHC 29.1 L RDW 20.6 H Plt Count 395 MPV 8.8 L Immature Gran % (Auto) Cancelled Neut % (Auto) Cancelled Lymph % (Auto) Cancelled [place] % (Auto) Cancelled Eos % (Auto) Cancelled Baso % (Auto) Cancelled Lymph # (Auto) Cancelled [place] # (Auto) Cancelled Eos # (Auto) Cancelled Baso # (Auto) Cancelled Abs Immat Gran (auto) Cancelled Absolute Neuts (auto) Cancelled Absolute Nucleated RBC 0.140 H Nucleated RBC % (auto) 0.8 H Neutrophils % (Manual) 89 H Band Neutrophils % 2 L Lymphocytes % (Manual) 6 L Monocytes % (Manual) 3 Abs Neuts (Manual) 16.3 H Lymphocytes # (Manual) 1.1 L Monocytes # (Manual) 0.5 Platelet Estimate NORMAL Plt Morphology Comment NORMAL RBC Morphology NOTED Acanthocytes (Spur) 1+ (0-2) PT INR APTT Anion Gap 13 Estim Creat Clear Calc 81.9 Estimated GFR > 60 Random Glucose 90 Osmolality Lactic Acid Calcium 8.8 Magnesium 1.9 Troponin I High Sens 4.1 B-Natriuretic Peptide 78 TSH 1.76 Urine Color Urine Appearance Urine pH Ur Specific [place] Urine Protein Urine Glucose (UA) Urine Ketones Urine Blood Urine Nitrite Ur Leukocyte Esterase Urine RBC Urine WBC Ur Squamous Epith Cells Urine Bacteria Urine Mucus COVID-19 (JESSY) COVID-19 Clin Com 11/24/21 11/24/21 11/24/21 20:38 20:38 20:38 MCV MCH MCHC RDW Plt Count MPV Immature Gran % (Auto) Neut % (Auto) Lymph % (Auto) [place] % (Auto) Eos % (Auto) Baso % (Auto) Lymph # (Auto) [place] # (Auto) Eos # (Auto) Baso # (Auto) Abs Immat Gran (auto) Absolute Neuts (auto) Absolute Nucleated RBC Nucleated RBC % (auto) Neutrophils % (Manual) Band Neutrophils % Lymphocytes % (Manual) Monocytes % (Manual) Abs Neuts (Manual) Lymphocytes # (Manual) Monocytes # (Manual) Platelet Estimate Plt Morphology Comment RBC Morphology Acanthocytes (Spur) PT 14.7 H INR 1.3 H APTT 38.7 H Anion Gap Estim Creat Clear Calc Estimated GFR Random Glucose Osmolality 256 L Lactic Acid Calcium Magnesium Troponin I High Sens B-Natriuretic Peptide TSH Urine Color Urine Appearance Urine pH Ur Specific [place] Urine Protein Urine Glucose (UA) Urine Ketones Urine Blood Urine Nitrite Ur Leukocyte Esterase Urine RBC Urine WBC Ur Squamous Epith Cells Urine Bacteria Urine Mucus COVID-19 (JESSY) Negative COVID-19 Clin Com See Note 11/24/21 11/25/21 11/25/21 22:10 00:40 01:47 MCV MCH MCHC RDW Plt Count MPV Immature Gran % (Auto) Neut % (Auto) Lymph % (Auto) [place] % (Auto) Eos % (Auto) Baso % (Auto) Lymph # (Auto) [place] # (Auto) Eos # (Auto) Baso # (Auto) Abs Immat Gran (auto) Absolute Neuts (auto) Absolute Nucleated RBC Nucleated RBC % (auto) Neutrophils % (Manual) Band Neutrophils % Lymphocytes % (Manual) Monocytes % (Manual) Abs Neuts (Manual) Lymphocytes # (Manual) Monocytes # (Manual) Platelet Estimate Plt Morphology Comment RBC Morphology Acanthocytes ([place]) PT INR APTT Anion Gap 11 L Estim Creat Clear Calc Estimated GFR Random Glucose Osmolality Lactic Acid 1.2 Calcium Magnesium Troponin I High Sens B-Natriuretic Peptide TSH Urine Color DK YELLOW Urine Appearance HAZY Urine pH 5.5 Ur Specific [place] >= 1.030 H Urine Protein 2+ H Urine Glucose (UA) NEG Urine Ketones NEG Urine Blood NEG Urine Nitrite NEG Ur Leukocyte Esterase NEG Urine RBC 0 Urine WBC 10-14 H Ur Squamous Epith Cells 3+ Urine Bacteria 3+ Urine Mucus 2+ COVID-19 (JESSY) COVID-19 Clin Com ECG Interpretation: AFib with RVR Imaging Radiologist's Impressions: Impressions Chest X-Ray 11/24/21 20:16 IMPRESSION: Mild pulmonary vascular congestion with right basilar patchy opacity in question of small left pleural effusion. Abdomen/Pelvis CT 11/25/21 00:50 IMPRESSION: * No acute findings within the abdomen or pelvis to definitively explain the patient's symptomatology. * Cholelithiasis. If there is concern for cholecystitis, consider right upper quadrant ultrasound. * Anasarca and small ascites. * Small right pleural effusion with accompanying atelectasis. * Interval increase in size of a simple fluid attenuating cyst within the right adnexa now measuring up to 5.2 cm, previously 3.2 cm in 2018. Recommend pelvic ultrasound for further evaluation. Assessment and Plan (1) Atrial fibrillation with RVR: Status: Acute (2) Hyponatremia: Status: Acute (3) Acute hyperkalemia: Status: Acute (4) Dyspnea: Status: Acute 66-year-old female with past medical history of alcoholic liver cirrhosis, dementia, hyponatremia presents to the hospital with AFib with RVR # AFib with RVR - new onset - CHADSVASC score of 2 - recevied dilt IV pushes with improvement in HR - will start her on PO metoprolol - ECho - cardiology consulted # Dyspnea - possibly 2/2 CHF although uncertain - has edema, pleural effusion on chest xray - no hx of CHF documented - BNP is not elevated - will give one dose of Lasix and hold off further treatment of CHF until evaluated by Cardiology - echocardiogram # hyperkalemia - no EKG changes - unclear etiology - will give kayexalate - follow BMP # Hyponatremia - likely 2/2 SIADH as well as psych meds - will fluid restrict - consult nephrology - follow bmp dvt ppx; lovenox Quality Stroke Does the patient have a stroke diagnosis?: No VTE Prior VTE?: No VTE Risk Level:: Medical - moderate - high VTE Device Contraindication: Treatment Not Indicated VTE Drug Contraindication: N/A - Med Ordered
--- NOTE | 2021-11-25 02:28 | PC.NURSE ---
PT found to be diaphoretic and complaining of extreme hunger. PT POC checked and found to be 30. PT given 2 orange juices and a turkey sandwich. Hospitalist notified.
[2021-11-25] MEDS: cefTRIAXone sodium 1 GM in 0.9 % Sodium Chloride 50 ML IV ×2 (03:21→21:45)
[2021-11-25 03:26] LABS: Glucose, Whole Blood 30 mg/dL (60-115)
[2021-11-25 03:38] LABS: Glucose, Whole Blood 29 mg/dL (60-115)
[2021-11-25] MEDS: dilTIAZem HCL 125 MG in 0.9 % Sodium Chloride 100 ML 10 MG IVCONT (05:21)
--- NOTE | 2021-11-25 05:25 | PC.NURSE ---
PT's HR started to fluctuate between 100 and 130. Diltiazem drip started at 10 mL/hr.
[2021-11-25 05:50] LABS: Glucose, Whole Blood 72 mg/dL (60-115)
--- NOTE | 2021-11-25 07:42 | PHA.MEDREC ---
Pharmacy Consult ? Medication Reconciliation Pharmacy has completed the medication reconciliation. Patient came from [facility] with a medication list. Wendy Weir, AvD
[2021-11-25] MEDS: Furosemide 40 MG/4 ML VIAL IVPUSH (07:59)
[2021-11-25] MEDS: Sodium Polystyrene Sulfon/Sorb 15 GM/60 ML ORAL.SUSP 30 GM PO (07:59)
[2021-11-25] MEDS: oxyCODONE HCl Immed Release 5 MG TABLET PO ×2 (08:00→14:34)
[2021-11-25] MEDS: Metoprolol Tartrate 12.5 MG HALFTAB PO ×2 (08:00→21:45)
[2021-11-25] MEDS: Acetaminophen 325 MG TABLET 650 MG PO (08:01)
[2021-11-25 08:44] LABS: Glucose, Whole Blood 107 mg/dL (60-115)
[2021-11-25 08:50] LABS: MANUAL DIFF FLAG NO
[2021-11-25 08:54] LABS: Basophils Percent Auto 0.2 % (0-2); Eosinophils Absolute Auto 0.1 X10*3/uL (0.0-0.4); Eosinophils Percent Auto 0.3 % (0-4); Hematocrit 32.4 % (37.0-47.0); Hemoglobin 9.3 g/dl (12.0-16.0); Imm Gran Abs Auto 0.18 X10*3/uL (0.00-0.03); Imm Gran Pct Auto 1.1 % (0.0-0.4); Lymphocytes Absolute Auto 1.4 X10*3/uL (1.2-4.9); Lymphocytes Percent Auto 8.6 % (20-40); Mean Corpuscular HGB Conc 28.7 g/dl (31.0-35.0); Mean Corpuscular Hemoglobin 19.1 pg (27.0-33.0); Mean Corpuscular Volume 66.7 fL (80.0-98.0); Mean Platelet Volume 9.6 fL (9.4-12.3); Monocytes Absolute Auto 1.1 X10*3/uL (0.1-1.2); Monocytes Percent Auto 6.4 % (2-11); NRBC Pct Auto 0.4 /100WBC (0.0-0.2); Neutrophils Absolute Auto 13.9 x10*3/uL (2.0-8.3); Neutrophils Percent Auto 83.4 % (45-73); Platelet Count 372 X10*3/uL (160-400); Red Blood Count 4.86 X10*6/uL (4.20-5.50); Red Cell Distribution Width 20.8 % (11.0-16.0); White Blood Count 16.6 X10*3/uL (4.8-10.8)
[2021-11-25] MEDS: Azithromycin 500 MG in 0.9 % Sodium Chloride 250 ML 125 MG IV ×2 (09:27→22:48)
[2021-11-25 09:29] LABS: Anion Gap 12 (12-20); Blood Urea Nitrogen 13 mg/dL (9-16); Calcium 9.1 mg/dL (8.4-10.2); Carbon Dioxide 26 mmol/L (22-29); Chloride 87 mmol/L (96-108); Creatinine Clr Calc Pharmacy 89.3; Estimated Glomerular Filt Rate > 60; Glucose Random 96 mg/dL (60-115); Potassium 5.4 mmol/L (3.3-5.1); Sodium 120 mmol/L (135-145)
--- NOTE | 2021-11-25 11:00 | PM.CNNEP ---
History of Present Illness Reason for Consult Consult date: 11/25/21 Chief Complaint Chief complaint: Hyponatremia History of Present Illness Narrative: 58-year-old female past medical history of alcoholic cirrhosis, dementia, hyponatremia, chronic renal disease, schizoaffective disorder, asthma who presents to the hospital from longterm with complaints of palpitations and shortness of breath.? Patient? is also complaining back and abdominal pain that started today. she is vague about her symptoms but reports chronic back pain that is causing her a lot of pain now. She reports dyspnea on minimal exertion, lower extremity swelling for the past few days, denies any orthopnea or PND. She denies any cough, no fever or chills. no nausea or vomiting. no diarhea or constipation. No urinary symptoms/ Usually sees h/o chronic hyponatremia Review of Systems Review of Systems Yes all other systems are reviewed and are negative [facility] Past Medical History Medical History (Updated 11/25/21 @ 07:11 by Tia Clay MD) Alcoholic cirrhosis of liver Asthma CKD (chronic kidney disease) Hyponatremia Schizoaffective disorder Family History Pertinent family history: No history of CAD Surgical History Surgical History (Updated 11/25/21 @ 07:10 by Tia Clay MD) No pertinent past surgical history Social History Social History Advance Directives: No Meds Allergies Allergy/AdvReac Type Severity Reaction Status Date / Time Sulfa (Sulfonamide Allergy Intermediate HIVES Verified 11/24/21 20:49 Antibiotics) Active Medications: Current Medications Acetaminophen (Acetaminophen 325 Mg Tablet) 650 mg PO Q6H PRN PRN Reason: Pain, Mild (Pain Scale 1-3) Last Admin: 11/25/21 08:01 Dose: 650 mg Documented by: Dextrose (Dextrose 50 % 25 Gm/50 Ml Vial) 25 gm IVPUSH Q15M PRN PRN Reason: per Hypoglycemia Standing Ord. Diltiazem HCl 125 mg/ Sodium (Chloride) 125 mls @ 0 mls/hr IVCONT .Q0M GINGER; Protocol Last Admin: 11/25/21 05:21 Dose: 10 mg/hr, 10 mls/hr Documented by: Ceftriaxone Sodium 1 gm/ (Sodium Chloride) 50 mls @ 100 mls/hr IV Q24H GINGER Azithromycin 500 mg/ Sodium (Chloride) 250 mls @ 125 mls/hr IV Q24H [facility] Metoprolol Tartrate (Metoprolol Tartrate 12.5 Mg Halftab) 12.5 mg PO BID [facility]; Protocol Last Admin: 11/25/21 08:00 Dose: 12.5 mg Documented by: Ondansetron HCl (Ondansetron Hcl 4 Mg/2 Ml Vial) 4 mg IVPUSH Q8H PRN PRN Reason: Nausea and Vomiting Oxycodone HCl (Oxycodone Hcl Immed Release 5 Mg Tablet) 5 mg PO Q6H PRN PRN Reason: Pain, Severe (Pain Scale 7-10) Last Admin: 11/25/21 08:00 Dose: 5 mg Documented by: Pharmacy Consult (Consult Rx Perform Med Rec) 1 each MISCELLANE ONCE PRN PRN Reason: Consult order Sodium Chloride (0.9 % Sodium Chloride Flush 3 Ml Syringe) 3 ml IVFLUSH QSHIFT [facility] Last Admin: 11/25/21 09:31 Dose: Not Given Documented by: Home Medications Medication Instructions Recorded Confirmed Last Taken Type Saccharomyces boulardii 250 mg 250 mg PO BID 11/25/21 11/25/21 11/24/21 History capsule (Florastor) acetaminophen 325 mg tablet 650 mg PO Q4H PRN 11/25/21 11/25/21 11/23/21 History albuterol sulfate 90 mcg/actuation 2 puff INHALATION Q4H PRN 11/25/21 11/25/21 11/22/21 History aerosol inhaler (ProAir HFA) aluminum-mag hydroxide-simethicone 30 ml PO Q4H PRN 11/25/21 11/25/21 11/16/21 History 200 mg-200 mg-20 mg/5 mL oral susp ([place]) atorvastatin 10 mg tablet 1 tab PO DAILY 11/25/21 11/25/21 11/24/21 History azathioprine 50 mg tablet 2 tab PO DAILY 11/25/21 11/25/21 11/24/21 History calcitonin (salmon) 200 1 spray INTRANASAL DAILY 11/25/21 11/25/21 11/24/21 History unit/actuation nasal spray calcium carbonate 600 mg-vitamin 1 tab PO DAILY 11/25/21 11/25/21 11/24/21 History D3 5 mcg (200 unit) tablet (Calcium 600 + D(3)) cranberry fruit 450 mg tablet 450 mg PO BID 11/25/21 11/25/21 11/24/21 History (cranberry) cyclobenzaprine 10 mg tablet 1 tab PO Q24H PRN 11/25/21 11/25/21 11/21/21 History docusate sodium 100 mg tablet 100 mg PO BID 11/25/21 11/25/21 11/24/21 History dulaglutide 1.5 mg/0.5 mL 1.5 mg SUBCUT TU 11/25/21 11/25/21 11/23/21 History subcutaneous pen injector (Trulicity) gabapentin 100 mg capsule 1 cap PO TID 11/25/21 11/25/21 11/24/21 History haloperidol 5 mg tablet 5 mg PO BID 11/25/21 11/25/21 11/24/21 History hydroxyzine HCl 25 mg tablet 25 mg PO QID 11/25/21 11/25/21 11/24/21 History insulin detemir U-100 100 unit/mL 110 unit SUBCUT BID@0630,1630 11/25/21 11/25/21 11/24/21 History (3 mL) subcutaneous pen insulin regular human 100 unit/mL 1 sliding scale dose SUBCUT 11/25/21 11/25/21 11/24/21 History injection solution (Novolin R USEASDIRECTD Regular U-100 Insulin) ipratropium 20 mcg-albuterol 100 1 puff INHALATION BID 11/25/21 11/25/21 11/24/21 History mcg/actuation mist for inhalation (Combivent Respimat) lanolin alcohols-mineral 1 appl TOPICAL DAILY 11/25/21 11/25/21 Unknown History oil-w.petrolatum-ceresin topical cream (Minerin Creme) lisinopril 5 mg tablet 5 mg PO DAILY 11/25/21 11/25/21 11/24/21 History menthol 5 % topical patch (Bengay 1 patch TOPICAL DAILY PRN 11/25/21 11/25/21 Unknown History Ultra Strength (menthol)) metformin 1,000 mg tablet 1,000 mg PO BID 11/25/21 11/25/21 11/24/21 History mirtazapine 15 mg tablet 1 tab PO BEDTIME 11/25/21 11/25/21 11/23/21 History multivitamin 1 tab PO DAILY 11/25/21 11/25/21 11/24/21 History nicotine 7 mg/24 hr daily 1 patch TRANSDERMAL Q24H PRN 11/25/21 11/25/21 Unknown History transdermal patch nitrofurantoin macrocrystal 50 mg 1 cap PO BEDTIME 11/25/21 11/25/21 11/23/21 History capsule nitroglycerin 0.4 mg sublingual 0.4 mg SUBLINGUAL Q5M PRN 11/25/21 11/25/21 Unknown History tablet nystatin 100,000 unit/gram topical 1 appl TOPICAL BID 11/25/21 11/25/21 Unknown History powder omeprazole 20 mg tablet,delayed 20 mg PO BID 11/25/21 11/25/21 11/24/21 History release oxycodone-acetaminophen 5 mg-325 1 tab PO QID 11/25/21 11/25/21 11/24/21 History mg tablet sennosides 8.6 mg tablet (senna) 8.6 mg PO DAILY 11/25/21 11/25/21 11/24/21 History sennosides 8.6 mg tablet (senna) 17.2 mg PO BEDTIME 11/25/21 11/25/21 11/23/21 History sitagliptin 100 mg tablet (Januvia) 100 mg PO DAILY 11/25/21 11/25/21 11/24/21 History sodium chloride 0.65 % nasal spray 2 spray INTRANASAL Q4H PRN 11/25/21 11/25/21 11/24/21 History aerosol ([place] Nasal) sodium chloride 1,000 mg soluble 1,000 mg PO TID 11/25/21 11/25/21 11/24/21 History tablet tolterodine 4 mg capsule,extended 4 mg PO DAILY 11/25/21 11/25/21 11/24/21 History release 24 hr Physical Exam Vital Signs: Last Vital Signs Temp 97.5 F 11/25/21 08:35 Pulse 77 11/25/21 08:35 Resp 17 11/25/21 08:35 BP 144/58 H 11/25/21 08:35 Pulse Ox 97 11/25/21 08:35 BMI result Body Mass Index 61.2 Const General: cooperative and no acute distress Orientation/consciousness: patient oriented x3 Eyes General: appearance normal, both eyes and all related structures Pupils: Equal, round and reactive pupils present Resp Effort & Inspection: normal respiratory effort Auscultation: clear to auscultation bilaterally Cardio Rate: regular rate Rhythm: regular rhythm GI Other: no tenderness, no rebound or guarding Palpation (GI): Soft to palpation Auscultation: normal bowel sounds Skin General skin exam: no rashes or lesions noted Neuro General: patient oriented x3 Cranial nerves: Yes Equal, round and reactive pupils present Cognition (Neuro): normal cognition Extrem Other: 1+ pitting edema General: Yes normal to inspection and Yes no pedal edema Results Lab Results Result Diagrams: 11/26/21 06:32 11/26/21 06:32 Lab results: Chemistry 11/24/21 11/24/21 11/25/21 20:38 22:10 08:24 Sodium 122 L 121 L 120 L* Potassium 6.5 H* 5.8 H 5.4 H Carbon Dioxide 27 27 26 BUN 14 13 Creatinine 0.84 0.77 Calcium 8.8 9.1 Hematology 11/24/21 11/25/21 20:38 08:24 WBC 17.9 H 16.6 H Hgb 9.8 L 9.3 L Plt Count 395 372 Urinalysis 11/25/21 00:40 Urine Color DK YELLOW Urine Appearance HAZY Urine pH 5.5 Ur Specific [place] >= 1.030 H Urine Protein 2+ H Urine Glucose (UA) NEG Urine Ketones NEG Urine Blood NEG Urine Nitrite NEG Ur Leukocyte Esterase NEG Urine RBC 0 Urine WBC 10-14 H Ur Squamous Epith Cells 3+ Assessment and Plan (1) Atrial fibrillation with RVR: Status: Acute (2) Hyponatremia: Status: Acute (3) Acute hyperkalemia: Status: Acute (4) Dyspnea: Status: Acute 66-year-old female with past medical history of alcoholic liver cirrhosis, dementia, hyponatremia presents to the hospital with AFib with RVR Chronic hypnatremia Most likely has euvolemic hyponatremia Keep PO water restriction Hyperkalemia due to decreased K excretion Suggest Check Urine Na/Osm Serum Osm and TSH, Cortisol Restrict PO waer intake to 1 L per 24 hrs Goal Na > 130 over next 24- 24 hours Add Urea powder 15 gm qd x2 doses ( done) Procedures Date of Service Date of Service: 11/25/21
--- NOTE | 2021-11-25 11:35 | P.CONCA_ITS ---
History of Present Illness History of Present Illness Date of Service: 11/25/21 Chief complaint: Hyponatremia Narrative: This is a cardiology consultation regarding atrial fibrillation. Per history, has a history of alcoholic cirrhosis, dementia, hyponatremia and chronic kidney disease. Also apparently has schizoaffective disorder. Per H and P, described to have palpitations and shortness of breath. However, when I questioned her about any cardiac symptoms she is denying them. Apparently rare sensations of heart fluttering but otherwise she has no shortness of breath or chest pain or in fact any cardiac symptoms at all. Hence history is very variable. Denies any previous cardiac issues including coronary disease or myocardial infarction or cardiomyopathy. Review of Systems Review of Systems: Yes all other systems are reviewed and are negative Cardiovascular: Cardiovascular: Reports as per HPI, Reports no additional cardiovascular complaints, Denies acrocyanosis, Denies cool extremities, Denies painful fingertips, Denies chest pain, Denies chest pain at rest, Denies diaphoresis, Denies syncope, Denies irregular heart rhythm, Denies claudication, Denies leg edema, Denies lightheadedness, Reports palpitations and Denies dyspnea Respiratory: Respiratory: Denies dyspnea Neurologic: Denies syncope Endocrine: Endocrine: Reports palpitations PMFSH Past Medical History Medical History (Updated 11/25/21 @ 07:11 by Tia Clay MD) Alcoholic cirrhosis of liver Asthma CKD (chronic kidney disease) Hyponatremia Schizoaffective disorder Family History Pertinent family history: Denies any significant family history of cardiac issues. Surgical History Surgical History (Updated 11/25/21 @ 07:10 by Tia Clay MD) No pertinent past surgical history Social History Social History Advance Directives: No Meds Allergies Allergy/AdvReac Type Severity Reaction Status Date / Time Sulfa (Sulfonamide Allergy Intermediate HIVES Verified 11/24/21 20:49 Antibiotics) Active Medications: Current Medications Acetaminophen (Acetaminophen 325 Mg Tablet) 650 mg PO Q6H PRN PRN Reason: Pain, Mild (Pain Scale 1-3) Last Admin: 11/25/21 08:01 Dose: 650 mg Documented by: Dextrose (Dextrose 50 % 25 Gm/50 Ml Vial) 25 gm IVPUSH Q15M PRN PRN Reason: per Hypoglycemia Standing Ord. Diltiazem HCl 125 mg/ Sodium (Chloride) 125 mls @ 0 mls/hr IVCONT .Q0M [facility]; Protocol Last Admin: 11/25/21 05:21 Dose: 10 mg/hr, 10 mls/hr Documented by: Ceftriaxone Sodium 1 gm/ (Sodium Chloride) 50 mls @ 100 mls/hr IV Q24H [facility] Azithromycin 500 mg/ Sodium (Chloride) 250 mls @ 125 mls/hr IV Q24H [facility] Metoprolol Tartrate (Metoprolol Tartrate 12.5 Mg Halftab) 12.5 mg PO BID [facility]; Protocol Last Admin: 11/25/21 08:00 Dose: 12.5 mg Documented by: Ondansetron HCl (Ondansetron Hcl 4 Mg/2 Ml Vial) 4 mg IVPUSH Q8H PRN PRN Reason: Nausea and Vomiting Oxycodone HCl (Oxycodone Hcl Immed Release 5 Mg Tablet) 5 mg PO Q6H PRN PRN Reason: Pain, Severe (Pain Scale 7-10) Last Admin: 11/25/21 08:00 Dose: 5 mg Documented by: Pharmacy Consult (Consult Rx Perform Med Rec) 1 each MISCELLANE ONCE PRN PRN Reason: Consult order Sodium Chloride (0.9 % Sodium Chloride Flush 3 Ml Syringe) 3 ml IVFLUSH QSHIFT [facility] Last Admin: 11/25/21 09:31 Dose: Not Given Documented by: Urea (Urea 15 Gm Powder) 15 gm PO DAILY [facility] Stop: 11/27/21 23:59 Home Medications Medication Instructions Recorded Confirmed Last Taken Type Saccharomyces boulardii 250 mg 250 mg PO BID 11/25/21 11/25/21 11/24/21 History capsule (Florastor) acetaminophen 325 mg tablet 650 mg PO Q4H PRN 11/25/21 11/25/21 11/23/21 History albuterol sulfate 90 mcg/actuation 2 puff INHALATION Q4H PRN 11/25/21 11/25/21 11/22/21 History aerosol inhaler (ProAir HFA) aluminum-mag hydroxide-simethicone 30 ml PO Q4H PRN 11/25/21 11/25/21 11/16/21 History 200 mg-200 mg-20 mg/5 mL oral susp (Morena-Lanta) atorvastatin 10 mg tablet 1 tab PO DAILY 11/25/21 11/25/21 11/24/21 History azathioprine 50 mg tablet 2 tab PO DAILY 11/25/21 11/25/21 11/24/21 History calcitonin (salmon) 200 1 spray INTRANASAL DAILY 11/25/21 11/25/21 11/24/21 History unit/actuation nasal spray calcium carbonate 600 mg-vitamin 1 tab PO DAILY 11/25/21 11/25/21 11/24/21 History D3 5 mcg (200 unit) tablet (Calcium 600 + D(3)) cranberry fruit 450 mg tablet 450 mg PO BID 11/25/21 11/25/21 11/24/21 History (cranberry) cyclobenzaprine 10 mg tablet 1 tab PO Q24H PRN 11/25/21 11/25/21 11/21/21 History docusate sodium 100 mg tablet 100 mg PO BID 11/25/21 11/25/21 11/24/21 History dulaglutide 1.5 mg/0.5 mL 1.5 mg SUBCUT TU 11/25/21 11/25/21 11/23/21 History subcutaneous pen injector (Trulicity) gabapentin 100 mg capsule 1 cap PO TID 11/25/21 11/25/21 11/24/21 History haloperidol 5 mg tablet 5 mg PO BID 11/25/21 11/25/21 11/24/21 History hydroxyzine HCl 25 mg tablet 25 mg PO QID 11/25/21 11/25/21 11/24/21 History insulin detemir U-100 100 unit/mL 110 unit SUBCUT BID@0630,1630 11/25/21 11/25/21 11/24/21 History (3 mL) subcutaneous pen insulin regular human 100 unit/mL 1 sliding scale dose SUBCUT 11/25/21 11/25/21 11/24/21 History injection solution (Novolin R USEASDIRECTD Regular U-100 Insulin) ipratropium 20 mcg-albuterol 100 1 puff INHALATION BID 11/25/21 11/25/21 11/24/21 History mcg/actuation mist for inhalation (Combivent Respimat) lanolin alcohols-mineral 1 appl TOPICAL DAILY 11/25/21 11/25/21 Unknown History oil-w.petrolatum-ceresin topical cream (Minerin Creme) lisinopril 5 mg tablet 5 mg PO DAILY 11/25/21 11/25/21 11/24/21 History menthol 5 % topical patch (Bengay 1 patch TOPICAL DAILY PRN 11/25/21 11/25/21 Unknown History Ultra Strength (menthol)) metformin 1,000 mg tablet 1,000 mg PO BID 11/25/21 11/25/21 11/24/21 History mirtazapine 15 mg tablet 1 tab PO BEDTIME 11/25/21 11/25/21 11/23/21 History multivitamin 1 tab PO DAILY 11/25/21 11/25/21 11/24/21 History nicotine 7 mg/24 hr daily 1 patch TRANSDERMAL Q24H PRN 11/25/21 11/25/21 Unknown History transdermal patch nitrofurantoin macrocrystal 50 mg 1 cap PO BEDTIME 11/25/21 11/25/21 11/23/21 History capsule nitroglycerin 0.4 mg sublingual 0.4 mg SUBLINGUAL Q5M PRN 11/25/21 11/25/21 Unknown History tablet nystatin 100,000 unit/gram topical 1 appl TOPICAL BID 11/25/21 11/25/21 Unknown History powder omeprazole 20 mg tablet,delayed 20 mg PO BID 11/25/21 11/25/21 11/24/21 History release oxycodone-acetaminophen 5 mg-325 1 tab PO QID 11/25/21 11/25/21 11/24/21 History mg tablet sennosides 8.6 mg tablet (senna) 8.6 mg PO DAILY 11/25/21 11/25/21 11/24/21 History sennosides 8.6 mg tablet (senna) 17.2 mg PO BEDTIME 11/25/21 11/25/21 11/23/21 History sitagliptin 100 mg tablet (Januvia) 100 mg PO DAILY 11/25/21 11/25/21 11/24/21 H istory sodium chloride 0.65 % nasal spray 2 spray INTRANASAL Q4H PRN 11/25/21 11/25/21 11/24/21 History aerosol (Deep Sea Nasal) sodium chloride 1,000 mg soluble 1,000 mg PO TID 11/25/21 11/25/21 11/24/21 History tablet tolterodine 4 mg capsule,extended 4 mg PO DAILY 11/25/21 11/25/21 11/24/21 History release 24 hr Physical Exam Vital Signs: Vital Signs: Last Vital Signs Temp 97.5 F 11/25/21 08:35 Pulse 77 11/25/21 08:35 Resp 17 11/25/21 08:35 BP 144/58 H 11/25/21 08:35 Pulse Ox 97 11/25/21 08:35 BMI result Body Mass Index 61.2 Const: General: no acute distress HENMT: Other: Unremarkable Neck: Neck: Yes normal visual inspection Chest: Chest palpation & inspection: normal inspection of the chest Resp: Auscultation: no crackles and no wheezes Cardio: Palpation: normal PMI Heart sounds: S1 normal heart sound present, S2 normal heart sound present, no gallops, Murmur heart sound present (2/6 MAGDY+; 1/6 EDM) and no rubs GI: Palpation (GI): Soft to palpation Back/Spine/Pelvis: Other: unremarkable Skin: Lesions: other Neuro: Cranial nerves: Yes Other cranial nerve findings present Extrem: General: Yes pedal edema (1+) Psych: Mental Status: other Objective Labs and Meds Result diagrams: 11/25/21 08:24 11/25/21 08:24 Lab results: Laboratory Results - last 24 hr 11/24/21 11/24/21 11/24/21 20:38 20:38 20:38 WBC 17.9 H RBC 5.14 Hgb 9.8 L Hct 33.7 L MCV 65.6 L MCH 19.1 L MCHC 29.1 L RDW 20.6 H Plt Count 395 MPV 8.8 L Immature Gran % (Auto) Cancelled Neut % (Auto) Cancelled Lymph % (Auto) Cancelled Reagan % (Auto) Cancelled Eos % (Auto) Cancelled Baso % (Auto) Cancelled Lymph # (Auto) Cancelled Reagan # (Auto) Cancelled Eos # (Auto) Cancelled Baso # (Auto) Cancelled Abs Immat Gran (auto) Cancelled Absolute Neuts (auto) Cancelled Absolute Nucleated RBC 0.140 H Nucleated RBC % (auto) 0.8 H Neutrophils % (Manual) 89 H Band Neutrophils % 2 L Lymphocytes % (Manual) 6 L Monocytes % (Manual) 3 Abs Neuts (Manual) 16.3 H Lymphocytes # (Manual) 1.1 L Monocytes # (Manual) 0.5 Platelet Estimate NORMAL Plt Morphology Comment NORMAL RBC Morphology NOTED Acanthocytes (Spur) 1+ (0-2) PT INR APTT Sodium 122 L Potassium 6.5 H* Chloride 89 L Carbon Dioxide 27 Anion Gap 13 BUN 14 Creatinine 0.84 Estim Creat Clear Calc 81.9 Estimated GFR > 60 POC Glucose Random Glucose 90 Osmolality Lactic Acid Calcium 8.8 Magnesium 1.9 Troponin I High Sens 4.1 B-Natriuretic Peptide 78 TSH 1.76 Urine Color Urine Appearance Urine pH Ur Specific [place] Urine Protein Urine Glucose (UA) Urine Ketones Urine Blood Urine Nitrite Ur Leukocyte Esterase Urine RBC Urine WBC Ur Squamous Epith Cells Urine Bacteria Urine Mucus COVID-19 (JESSY) COVID-19 [facility] 11/24/21 11/24/21 11/24/21 20:38 20:38 20:38 WBC RBC Hgb Hct MCV MCH MCHC RDW Plt Count MPV Immature Gran % (Auto) Neut % (Auto) Lymph % (Auto) Reagan % (Auto) Eos % (Auto) Baso % (Auto) Lymph # (Auto) Reagan # (Auto) Eos # (Auto) Baso # (Auto) Abs Immat Gran (auto) Absolute Neuts (auto) Absolute Nucleated RBC Nucleated RBC % (auto) Neutrophils % (Manual) Band Neutrophils % Lymphocytes % (Manual) Monocytes % (Manual) Abs Neuts (Manual) Lymphocytes # (Manual) Monocytes # (Manual) Platelet Estimate Plt Morphology Comment RBC Morphology Acanthocytes (Spur) PT 14.7 H INR 1.3 H APTT 38.7 H Sodium Potassium Chloride Carbon Dioxide Anion Gap BUN Creatinine Estim Creat Clear Calc Estimated GFR POC Glucose Random Glucose Osmolality 256 L Lactic Acid Calcium Magnesium Troponin I High Sens B-Natriuretic Peptide TSH Urine Color Urine Appearance Urine pH Ur Specific [place] Urine Protein Urine Glucose (UA) Urine Ketones Urine Blood Urine Nitrite Ur Leukocyte Esterase Urine RBC Urine WBC Ur Squamous Epith Cells Urine Bacteria Urine Mucus COVID-19 (JESSY) Negative COVID-19 [employer] [facility] See Note 11/24/21 11/25/21 11/25/21 22:10 00:40 01:47 WBC RBC Hgb Hct MCV MCH MCHC RDW Plt Count MPV Immature Gran % (Auto) Neut % (Auto) Lymph % (Auto) Reagan % (Auto) Eos % (Auto) Baso % (Auto) Lymph # (Auto) Reagan # (Auto) Eos # (Auto) Baso # (Auto) Abs Immat Gran (auto) Absolute Neuts (auto) Absolute Nucleated RBC Nucleated RBC % (auto) Neutrophils % (Manual) Band Neutrophils % Lymphocytes % (Manual) Monocytes % (Manual) Abs Neuts (Manual) Lymphocytes # (Manual) Monocytes # (Manual) Platelet Estimate Plt Morphology Comment RBC Morphology Acanthocytes (Spur) PT INR APTT Sodium 121 L Potassium 5.8 H Chloride 89 L Carbon Dioxide 27 Anion Gap 11 L BUN Creatinine Estim Creat Clear Calc Estimated GFR POC Glucose Random Glucose Osmolality Lactic Acid 1.2 Calcium Magnesium Troponin I High Sens B-Natriuretic Peptide TSH Urine Color DK YELLOW Urine Appearance HAZY Urine pH 5.5 Ur Specific [place] >= 1.030 H Urine Protein 2+ H Urine Glucose (UA) NEG Urine Ketones NEG Urine Blood NEG Urine Nitrite NEG Ur Leukocyte Esterase NEG Urine RBC 0 Urine WBC 10-14 H Ur Squamous Epith Cells 3+ Urine Bacteria 3+ Urine Mucus 2+ COVID-19 (JESSY) COVID-19 [facility] 11/25/21 11/25/21 11/25/21 02:24 03:34 05:46 WBC RBC Hgb Hct MCV MCH MCHC RDW Plt Count MPV Immature Gran % (Auto) Neut % (Auto) Lymph % (Auto) Reagan % (Auto) Eos % (Auto) Baso % (Auto) Lymph # (Auto) Reagan # (Auto) Eos # (Auto) Baso # (Auto) Abs Immat Gran (auto) Absolute Neuts (auto) Absolute Nucleated RBC Nucleated RBC % (auto) Neutrophils % (Manual) Band Neutrophils % Lymphocytes % (Manual) Monocytes % (Manual) Abs Neuts (Manual) Lymphocytes # (Manual) Monocytes # (Manual) Platelet Estimate Plt Morphology Comment RBC Morphology Acanthocytes (Spur) PT INR APTT Sodium Potassium Chloride Carbon Dioxide Anion Gap BUN Creatinine Estim Creat Clear Calc Estimated GFR POC Glucose 30 L* 29 L* 72 Random Glucose Osmolality Lactic Acid Calcium Magnesium Troponin I High Sens B-Natriuretic Peptide TSH Urine Color Urine Appearance Urine pH Ur Specific [place] Urine Protein Urine Glucose (UA) Urine Ketones Urine Blood Urine Nitrite Ur Leukocyte Esterase Urine RBC Urine WBC Ur Squamous Epith Cells Urine Bacteria Urine Mucus COVID-19 (JESSY) COVID-19 [facility] 11/25/21 11/25/21 11/25/21 08:24 08:24 08:29 WBC 16.6 H RBC 4.86 Hgb 9.3 L Hct 32.4 L MCV 66.7 L MCH 19.1 L MCHC 28.7 L RDW 20.8 H Plt Count 372 MPV 9.6 Immature Gran % (Auto) 1.1 H Neut % (Auto) 83.4 H Lymph % (Auto) 8.6 L Reagan % (Auto) 6.4 Eos % (Auto) 0.3 Baso % (Auto) 0.2 Lymph # (Auto) 1.4 Reagan # (Auto) 1.1 Eos # (Auto) 0.1 Baso # (Auto) 0.0 Abs Immat Gran (auto) 0.18 H Absolute Neuts (auto) 13.9 H Absolute Nucleated RBC 0.070 H Nucleated RBC % (auto) 0.4 H Neutrophils % (Manual) Band Neutrophils % Lymphocytes % (Manual) Monocytes % (Manual) Abs Neuts (Manual) Lymphocytes # (Manual) Monocytes # (Manual) Platelet Estimate Plt Morphology Comment RBC Morphology Acanthocytes (Spur) PT INR APTT Sodium 120 L* Potassium 5.4 H Chloride 87 L Carbon Dioxide 26 Anion Gap 12 BUN 13 Creatinine 0.77 Estim Creat Clear Calc 89.3 Estimated GFR > 60 POC Glucose 107 Random Glucose 96 Osmolality Lactic Acid Calcium 9.1 Magnesium Troponin I High Sens B-Natriuretic Peptide TSH Urine Color Urine Appearance Urine pH Ur Specific [place] Urine Protein Urine Glucose (UA) Urine Ketones Urine Blood Urine Nitrite Ur Leukocyte Esterase Urine RBC Urine WBC Ur Squamous Epith Cells Urine Bacteria Urine Mucus COVID-19 (JESSY) COVID-19 Clin Com ECG Interpretation: EKG with a narrow complex tachycardia at 134/Min. Possibly atrial flutter based on atrial rate of about 300. Imaging Radiologist's impression: Impressions Chest X-Ray 11/24/21 20:16 IMPRESSION: Mild pulmonary vascular congestion with right basilar patchy opacity in question of small left pleural effusion. Abdomen/Pelvis CT 11/25/21 00:50 IMPRESSION: * No acute findings within the abdomen or pelvis to definitively explain the patient's symptomatology. * Cholelithiasis. If there is concern for cholecystitis, consider right upper quadrant ultrasound. * Anasarca and small ascites. * Small right pleural effusion with accompanying atelectasis. * Interval increase in size of a simple fluid attenuating cyst within the right adnexa now measuring up to 5.2 cm, previously 3.2 cm in 2018. Recommend pelvic ultrasound for further evaluation. Assessment and Plan (1) Atrial fibrillation with RVR: Status: Acute EKG/telemetry difficult to assess. Some areas look like atrial fibrillation with rapid rate. In the EKG itself, atrial rate is about 300 which could indicate atrial flutter. Less likely multifocal atrial tachycardia with a could also be possible or mixed in with the above. There are some sinus with PACs as well. Can use oral diltiazem for rate control. If no clear contraindications for anticoagulation, then Eliquis. Echocardiogram. We will follow up with you. Procedures Date of Service Date of Service: 11/25/21
[2021-11-25 11:45] LABS: Potassium Urine Random 79.7 mmol/L; Sodium Urine Random < 20.0 mmol/L
[2021-11-25 11:53] LABS: Osmolality Urine 549 mosm/kg (373-1093)
--- NOTE | 2021-11-25 14:12 | PC.NURSE ---
called pharmacy for cardizem 60mg
[2021-11-25] MEDS: Apixaban 5 MG TABLET PO ×2 (14:34→21:45)
[2021-11-25] MEDS: dilTIAZem HCL 60 MG TABLET PO ×3 (14:58→21:45)
--- NOTE | 2021-11-25 15:08 | PM.EVENT ---
Event Note Date of Service: 11/25/21 Event Note: Chart reviewed patient examined; Exam essentially unchanged from this a.m.. Has been off Cardizem drip as heart rate was controlled however now that ambulatory heart rate is poorly controlled with exertion. Appreciate Cardiology input; oral diltiazem added. Follow-up was response. May need to be digitalized. Seen by Renal for sodium of 120; appreciate input. Urea started. Will restrict fluid to 1 L for 24 hours and follow sodium in a.m.. Patient well known to me from [facility]; chronic pain issue. Will treat aggressively here and follow-up care 1.
[2021-11-25] MEDS: Digoxin 0.5 MG/2 ML AMPUL 0.25 MG IVPUSH ×2 (16:20→22:48)
[2021-11-25] MEDS: Morphine Sulfate 4 MG/ML CARTRIDGE IVPUSH (16:20)
--- NOTE | 2021-11-25 16:21 | PC.NURSE ---
PT HR ONE-TEENS TO ONE-SIXTY, md ZHANG MADE AWARE. INNA ORDERED
[2021-11-25 17:32] LABS: Osmolality, Serum 255 mosm/kg (281-305)
[2021-11-25 17:39] LABS: Thyroid Stimulating Hormone 1.33 uIU/mL (0.32-4.0)
[2021-11-25] MEDS: 0.9 % Sodium Chloride Flush 3 ML SYRINGE IVFLUSH (18:05)
[2021-11-25 20:26] LABS: Glucose, Whole Blood 50 mg/dL (60-115)
[2021-11-25 21:09] LABS: Glucose, Whole Blood 75 mg/dL (60-115)
[2021-11-25 22:40] LABS: Glucose, Whole Blood 99 mg/dL (60-115)
[2021-11-26] VITALS (7 sets, daily range): BP systolic 129–165; BP diastolic 52–79; PULSE 76–89; RESP 16–20; TEMP 36.4; O2SAT 93–99; BMI 48.9
--- NOTE | 2021-11-26 00:19 | PC.NURSE ---
RN made aware by [facility] RN passing by that the patient was up out of bed. Upon arrival to bedside the patient was found sitting on her bedside commode, bilateral bed rails still up and in place with the pt's respirations noted to be labored. Pt's IV tubing was noted to be pulled taughtly and disconnected by this RN in an attempt to save the IV line. Pt was provided with verbal redirection and education regarding need to ask for assistance prior to getting OOB as staff can assist with the process to make it less taxing on the patient and her respiratory status. Pt verbalized understanding. The pt is alert, able to confirm/verify her name and however is unaware of her current location and/or month/year. Pt reports frequency and urgency. Plan at this time is to get the patient settled back in the bed and then provide report to overflow RN for transfer.
[2021-11-26 00:34] LABS: Glucose, Whole Blood 116 mg/dL (60-115)
--- NOTE | 2021-11-26 01:41 | PC.NURSE ---
pt transported via ed stretcher to overflow unit bed 6. Nurse to nurse previously reported by phone to Darlene HANNA. Verbal report provided to Cristiane BANKS
[2021-11-26] MEDS: Digoxin 0.5 MG/2 ML AMPUL 0.25 MG IVPUSH ×2 (03:58→14:14)
--- NOTE | 2021-11-26 05:28 | PC.NURSE ---
This RN took over patient's care at 0150, patient transfered from ED to overflow ED, Room 6. Patient alert, oriented to self, disoriented to place, time, and situation. Patient requires frequent redirection, patient attempts to get oob to bedside commode, does not always ring for assistance. Educated patient on safety and using callbell for assistance when needed.
[2021-11-26 06:36] LABS: MANUAL DIFF FLAG NO
[2021-11-26 06:42] LABS: Basophils Percent Auto 0.1 % (0-2); Eosinophils Percent Auto 0.3 % (0-4); Hematocrit 31.2 % (37.0-47.0); Hemoglobin 9.2 g/dl (12.0-16.0); Imm Gran Abs Auto 0.13 X10*3/uL (0.00-0.03); Imm Gran Pct Auto 0.8 % (0.0-0.4); Lymphocytes Absolute Auto 1.1 X10*3/uL (1.2-4.9); Mean Corpuscular HGB Conc 29.5 g/dl (31.0-35.0); Mean Platelet Volume 9.1 fL (9.4-12.3); Monocytes Absolute Auto 1.3 X10*3/uL (0.1-1.2); Monocytes Percent Auto 8.2 % (2-11); NRBC Pct Auto 0.6 /100WBC (0.0-0.2); Neutrophils Absolute Auto 13.1 x10*3/uL (2.0-8.3); Neutrophils Percent Auto 83.6 % (45-73); Platelet Count 392 X10*3/uL (160-400); Red Blood Count 4.85 X10*6/uL (4.20-5.50); Red Cell Distribution Width 20.1 % (11.0-16.0); White Blood Count 15.7 X10*3/uL (4.8-10.8)
[2021-11-26 07:03] LABS: Mean Corpuscular Volume 64.3 fL (80.0-98.0)
[2021-11-26 07:12] LABS: Alanine Aminotransferase 25 U/L (0-31); Albumin Level 3.7 g/dL (3.5-5.0); Alkaline Phosphatase 114 U/L (39-117); Aspartate Amino Transferase 28 U/L (5-31); Bilirubin Total 0.4 mg/dL (0.0-1.0); Blood Urea Nitrogen 15 mg/dL (9-16); Calcium 8.7 mg/dL (8.4-10.2); Creatinine Clr Calc Pharmacy 88.1; Estimated Glomerular Filt Rate > 60; Glucose Fasting 64 mg/dL (60-99); Total Protein 6.7 g/dL (6.5-8.0)
[2021-11-26 07:31] LABS: Anion Gap 12 (12-20); Carbon Dioxide 27 mmol/L (22-29); Chloride 87 mmol/L (96-108); Sodium 121 mmol/L (135-145)
--- NOTE | 2021-11-26 08:19 | PC.NURSE ---
Pt. ripped off [employer], attempted to re-attach, pt. was non-compliant saying she can't breathe with it on.
--- NOTE | 2021-11-26 08:24 | P.CDIC_ITS ---
CDI Concurrent Query Documentation Clarification: PHYSICIAN'S DOCUMENTATION REQUEST Date of Query: 11/26/21 0825 Patient Name: Valentine Reddy Admit Date: 11/25/21 Dear Doctor, A review of the medical record indicates additional documentation may be needed. Please review below and update the documentation accordingly. Risk Factors/Clinical Indicators/Treatments Body mass index: 61.3 4ft 11in If possible, please provide an associated diagnosis related to the abnormal BMI, such as: For a BMI >= 40: * Overweight * Obesity * Due to excess calories * Drug induced * Due to other cause * Severe or Morbid Obesity * With alveolar hypoventilation * Without alveolar hypoventilation Or: * BMI is not significant * Other (please specify) * Unable to determine Use of terms such as suspected, likely, concern for, or probable (associated with a specific diagnosis that is being evaluated, monitored, or treated as if it exists) are acceptable and can be coded in the inpatient setting, when documented at the time of discharge. Thank you, Claudia Franklin [facility], CDIS Extension: [phone] Please use your independent medical judgment in providing your response. THIS QUERY IS PART OF THE PERMANENT MEDICAL RECORD Provider Response: Other Other Diagnosis: patient is a resident of [facility] where there are no dietary restrictions; BMI greater than 40 is obesity due to excess calories
--- NOTE | 2021-11-26 08:24 | MHC.CDI.CONC ---
CDI Concurrent Query Documentation Clarification: PHYSICIAN'S DOCUMENTATION REQUEST Date of Query: 11/26/21 0825 Patient Name: Valentine Reddy Admit Date: 11/25/21 Dear Doctor, A review of the medical record indicates additional documentation may be needed. Please review below and update the documentation accordingly. Risk Factors/Clinical Indicators/Treatments Body mass index: 61.3 4ft 11in If possible, please provide an associated diagnosis related to the abnormal BMI, such as: For a BMI >= 40: Overweight Obesity Due to excess calories Drug induced Due to other cause Severe or Morbid Obesity With alveolar hypoventilation Without alveolar hypoventilation Or: BMI is not significant Other (please specify) Unable to determine Use of terms such as suspected, likely, concern for, or probable (associated with a specific diagnosis that is being evaluated, monitored, or treated as if it exists) are acceptable and can be coded in the inpatient setting, when documented at the time of discharge. Thank you, Claudia Franklin [facility], CDIS Extension: [phone] Please use your independent medical judgment in providing your response. THIS QUERY IS PART OF THE PERMANENT MEDICAL RECORD Provider Response: Other Other Diagnosis: patient is a resident of [facility] where there are no dietary restrictions; BMI greater than 40 is obesity due to excess calories
--- NOTE | 2021-11-26 09:29 | P.CDIC_ITS ---
CDI Concurrent Query Documentation Clarification: PHYSICIAN'S DOCUMENTATION REQUEST Date of Query: 11/26/21 0929 Patient Name: Valentine Reddy Admit Date: 11/25/21 Dear Doctor, A review of the medical record indicates additional documentation may be needed. Please review below and update the documentation accordingly. Clinical Indicators: The diagnosis of [Diagnosis] was documented on [date] but is not consistently noted in subsequent documentation. Risk Factors/Clinical Indicators/Treatments ED: 11/24 - possible pneumonia, start antibiotics. Chest Xray shows possible infiltrate likely pneumonia. Ceftriaxone, Azithromycin, IV fluids, Cardizem Please clarify the following: Pneumonia - treat, rule out etc. * [Diagnosis] was present on admission and is now resolved * [Diagnosis] was present on admission and is still being monitored, evaluated, or treated * [Diagnosis] was ruled out * [Diagnosis] is still a likely, suspected, probable diagnosis * Other (please specify) * Unable to determine Use of terms such as suspected, likely, concern for, or probable (associated with a specific diagnosis that is being evaluated, monitored, or treated as if it exists) are acceptable and can be coded in the inpatient setting, when documented at the time of discharge. Thank you, Claudia Franklin [facility], CDIS Extension: [phone] Please use your independent medical judgment in providing your response. THIS QUERY IS PART OF THE PERMANENT MEDICAL RECORD Provider Response: Other Other Diagnosis: pneumonia was present on admission is still being monitored and treated
--- NOTE | 2021-11-26 11:33 | P.PNNP_ITS ---
Subjective Subjective Date of Service: 11/26/21 Interval history: Events noted Na remans low Physical Exam Vital Signs: Vital Signs: Last Vital Signs Temp 97.8 F 11/25/21 15:45 Pulse 89 11/26/21 06:00 Resp 20 11/26/21 06:00 BP 146/52 H 11/26/21 06:00 Pulse Ox 94 11/26/21 06:00 BMI result Body Mass Index 61.2 Const: General: cooperative and no acute distress Orientation/consciousness: patient oriented x3 Eyes: General: appearance normal, both eyes and all related structures P upils: Equal, round and reactive pupils present Resp: Effort & Inspection: normal respiratory effort Auscultation: clear to auscultation bilaterally Cardio: Rate: regular rate Rhythm: regular rhythm GI: Other: no tenderness, no rebound or guarding Palpation (GI): Soft to palpation Auscultation: normal bowel sounds Skin: General skin exam: no rashes or lesions noted Neuro: General: patient oriented x3 Cranial nerves: Yes Equal, round and reactive pupils present Cognition (Neuro): normal cognition Extrem: Other: 1+ pitting edema General: Yes normal to inspection and Yes no pedal edema Objective Data Labs CBC & Chem 7: 11/26/21 06:32 11/26/21 06:32 Labs: Laboratory Results - last 24 hr 11/25/21 11/25/21 11/25/21 11:28 11:28 16:51 WBC RBC Hgb Hct MCV MCH MCHC RDW Plt Count MPV Immature Gran % (Auto) Neut % (Auto) Lymph % (Auto) [place] % (Auto) Eos % (Auto) Baso % (Auto) Lymph # (Auto) [place] # (Auto) Eos # (Auto) Baso # (Auto) Abs Immat Gran (auto) Absolute Neuts (auto) Absolute Nucleated RBC Nucleated RBC % (auto) Smear Path Review Sodium Potassium Chloride Carbon Dioxide Anion Gap BUN Creatinine Estim Creat Clear Calc Estimated GFR POC Glucose Fasting Glucose Osmolality 255 L Calcium Total Bilirubin AST ALT Alkaline Phosphatase Total Protein Albumin TSH Urine Osmolality 549 Ur Random Sodium < 20.0 Ur Random Potassium 79.7 11/25/21 11/25/21 11/25/21 16:51 20:22 21:06 WBC RBC Hgb Hct MCV MCH MCHC RDW Plt Count MPV Immature Gran % (Auto) Neut % (Auto) Lymph % (Auto) [place] % (Auto) Eos % (Auto) Baso % (Auto) Lymph # (Auto) [place] # (Auto) Eos # (Auto) Baso # (Auto) Abs Immat Gran (auto) Absolute Neuts (auto) Absolute Nucleated RBC Nucleated RBC % (auto) Smear Path Review Sodium Potassium Chloride Carbon Dioxide Anion Gap BUN Creatinine Estim Creat Clear Calc Estimated GFR POC Glucose 50 L* 75 Fasting Glucose Osmolality Calcium Total Bilirubin AST ALT Alkaline Phosphatase Total Protein Albumin TSH 1.33 Urine Osmolality Ur Random Sodium Ur Random Potassium 11/25/21 11/26/21 11/26/21 22:36 00:18 06:32 WBC 15.7 H RBC 4.85 Hgb 9.2 L Hct 31.2 L MCV 64.3 L MCH 19.0 L MCHC 29.5 L RDW 20.1 H Plt Count 392 MPV 9.1 L Immature Gran % (Auto) 0.8 H Neut % (Auto) 83.6 H Lymph % (Auto) 7.0 L [place] % (Auto) 8.2 Eos % (Auto) 0.3 Baso % (Auto) 0.1 Lymph # (Auto) 1.1 L [place] # (Auto) 1.3 H Eos # (Auto) 0.0 Baso # (Auto) 0.0 Abs Immat Gran (auto) 0.13 H Absolute Neuts (auto) 13.1 H Absolute Nucleated RBC 0.100 H Nucleated RBC % (auto) 0.6 H Smear Path Review SEE NOTE Sodium Potassium Chloride Carbon Dioxide Anion Gap BUN Creatinine Estim Creat Clear Calc Estimated GFR POC Glucose 99 116 H Fasting Glucose Osmolality Calcium Total Bilirubin AST ALT Alkaline Phosphatase Total Protein Albumin TSH Urine Osmolality Ur Random Sodium Ur Random Potassium 11/26/21 06:32 WBC RBC Hgb Hct MCV MCH MCHC RDW Plt Count MPV Immature Gran % (Auto) Neut % (Auto) Lymph % (Auto) [place] % (Auto) Eos % (Auto) Baso % (Auto) Lymph # (Auto) [place] # (Auto) Eos # (Auto) Baso # (Auto) Abs Immat Gran (auto) Absolute Neuts (auto) Absolute Nucleated RBC Nucleated RBC % (auto) Smear Path Review Sodium 121 L Potassium 5.0 Chloride 87 L Carbon Dioxide 27 Anion Gap 12 BUN 15 Creatinine 0.78 Estim Creat Clear Calc 88.1 Estimated GFR > 60 POC Glucose Fasting Glucose 64 Osmolality Calcium 8.7 Total Bilirubin 0.4 AST 28 ALT 25 Alkaline Phosphatase 114 Total Protein 6.7 Albumin 3.7 TSH Urine Osmolality Ur Random Sodium Ur Random Potassium Microbiology Microbiology Results: Microbiology 11/25/21 01:42 Blood - Venous Blood Culture - Preliminary No growth after 24 hours. 11/25/21 01:47 Blood - Venous Blood Culture - Preliminary No growth after 24 hours. Procedures Date of Service Date of Service: 11/26/21 Assessment & Plan Assessment and plan (1) Atrial fibrillation with RVR: Status: Acute (2) Hyponatremia: Status: Acute (3) Acute hyperkalemia: Status: Acute (4) Dyspnea: Status: Acute Assessment and Plan: 66-year-old female with past medical history of alcoholic liver cirrhosis, dementia, hyponatremia presents to the hospital with AFib with RVR Chronic hypnatremia Most likely has euvolemic hyponatremia Keep PO water restriction Hyperkalemia due to decreased K excretion Low Jeancarlos sugestive of hypoperfusion Suggest Check cortisol ( pauline with low Gluocose and low BP) Restrict PO water intake to 1 L per 24 hrs Goal Na > 130 over next 24- 24 hours Urea powder 15 gm qd x2 doses ( done) Lokelma PRN Time Spent With Patient Time: Total time spent is greater than 50% in coordination of care (as documented) at patient's floor/unit and/or counseling patient: Time with patient: 15 - 24 minutes Progress Note: Quality Stroke Does the patient have a stroke diagnosis?: No
--- NOTE | 2021-11-26 12:04 | PM.PNCARD ---
Subjective Subjective Date of Service: 11/26/21 Interval history: States that she feels ok. Denies any cardiac complaints. Review of Systems Review of Systems Yes all other systems are reviewed and are negative Cardiovascular: Reports as per HPI, Reports no additional cardiovascular complaints, Denies acrocyanosis, Denies cool extremities, Denies painful fingertips, Denies chest pain, Denies chest pain at rest, Denies diaphoresis, Denies syncope, Denies irregular heart rhythm, Denies claudication, Denies leg edema, Denies lightheadedness, Reports palpitations and Denies dyspnea Respiratory: Denies dyspnea Denies syncope Endocrine: Reports palpitations Physical Exam Vital Signs: Last Vital Signs Temp 97.8 F 11/25/21 15:45 Pulse 89 11/26/21 06:00 Resp 20 11/26/21 06:00 BP 146/52 H 11/26/21 06:00 Pulse Ox 94 11/26/21 06:00 BMI result Body Mass Index 61.2 Const General: no acute distress HENMT Other: Unremarkable Neck Neck: Yes normal visual inspection Chest Chest palpation & inspection: normal inspection of the chest Resp Auscultation: no crackles and no wheezes Cardio Palpation: normal PMI Heart sounds: S1 normal heart sound present, S2 normal heart sound present, no gallops, Murmur heart sound present (2/6 MAGDY+; 1/6 EDM) and no rubs GI Palpation (GI): Soft to palpation Back/Spine/Pelvis Other: unremarkable Skin Lesions: other Neuro Cranial nerves: Yes Other cranial nerve findings present Extrem General: Yes pedal edema (1+) Psych Mental Status: other Objective Labs and Meds Result diagrams: 11/26/21 06:32 11/26/21 06:32 Lab results: Laboratory Results - last 24 hr 11/25/21 11/25/21 11/25/21 16:51 16:51 20:22 WBC RBC Hgb Hct MCV MCH MCHC RDW Plt Count MPV Immature Gran % (Auto) Neut % (Auto) Lymph % (Auto) [place] % (Auto) Eos % (Auto) Baso % (Auto) Lymph # (Auto) [place] # (Auto) Eos # (Auto) Baso # (Auto) Abs Immat Gran (auto) Absolute Neuts (auto) Absolute Nucleated RBC Nucleated RBC % (auto) Smear Path Review Sodium Potassium Chloride Carbon Dioxide Anion Gap BUN Creatinine Estim Creat Clear Calc Estimated GFR POC Glucose 50 L* Fasting Glucose Osmolality 255 L Calcium Total Bilirubin AST ALT Alkaline Phosphatase Total Protein Albumin TSH 1.33 11/25/21 11/25/21 11/26/21 21:06 22:36 00:18 WBC RBC Hgb Hct MCV MCH MCHC RDW Plt Count MPV Immature Gran % (Auto) Neut % (Auto) Lymph % (Auto) [place] % (Auto) Eos % (Auto) Baso % (Auto) Lymph # (Auto) [place] # (Auto) Eos # (Auto) Baso # (Auto) Abs Immat Gran (auto) Absolute Neuts (auto) Absolute Nucleated RBC Nucleated RBC % (auto) Smear Path Review Sodium Potassium Chloride Carbon Dioxide Anion Gap BUN Creatinine Estim Creat Clear Calc Estimated GFR POC Glucose 75 99 116 H Fasting Glucose Osmolality Calcium Total Bilirubin AST ALT Alkaline Phosphatase Total Protein Albumin [facility] 11/26/21 11/26/21 06:32 06:32 WBC 15.7 H RBC 4.85 Hgb 9.2 L Hct 31.2 L MCV 64.3 L MCH 19.0 L MCHC 29.5 L RDW 20.1 H Plt Count 392 MPV 9.1 L Immature Gran % (Auto) 0.8 H Neut % (Auto) 83.6 H Lymph % (Auto) 7.0 L [place] % (Auto) 8.2 Eos % (Auto) 0.3 Baso % (Auto) 0.1 Lymph # (Auto) 1.1 L [place] # (Auto) 1.3 H Eos # (Auto) 0.0 Baso # (Auto) 0.0 Abs Immat Gran (auto) 0.13 H Absolute Neuts (auto) 13.1 H Absolute Nucleated RBC 0.100 H Nucleated RBC % (auto) 0.6 H Smear Path Review SEE NOTE Sodium 121 L Potassium 5.0 Chloride 87 L Carbon Dioxide 27 Anion Gap 12 BUN 15 Creatinine 0.78 Estim Creat Clear Calc 88.1 Estimated GFR > 60 POC Glucose Fasting Glucose 64 Osmolality Calcium 8.7 Total Bilirubin 0.4 AST 28 ALT 25 Alkaline Phosphatase 114 Total Protein 6.7 Albumin 3.7 TSH Progress Note: A&P Assessment and plan (1) Atrial fibrillation with RVR: Status: Acute Assessment and Plan: EKG/telemetry difficult to assess. Some areas look like atrial fibrillation with rapid rate. In the initial EKG itself, atrial rate is about 300 which could indicate atrial flutter. Currently, looks like atrial fibrillation. Less likely multifocal atrial tachycardia with a could be mixed in with the above. There are some sinus with PACs as well. Can use oral diltiazem for rate control. Digoxin. If no clear contraindications for anticoagulation, then Eliquis. Unable to tolerate echocardiogram. Discussed with , who will follow at facility post discharge. Fall Risk Details Current Medications: Current Medications Acetaminophen (Acetaminophen 325 Mg Tablet) 650 mg PO Q6H PRN PRN Reason: Pain, Mild (Pain Scale 1-3) Last Admin: 11/25/21 08:01 Dose: 650 mg Documented by: Apixaban (Apixaban 5 Mg Tablet) 5 mg PO BID [facility] Last Admin: 11/25/21 21:45 Dose: 5 mg Documented by: Dextrose (Dextrose 50 % 25 Gm/50 Ml Vial) 25 gm IVPUSH Q15M PRN PRN Reason: per Hypoglycemia Standing Ord. Diltiazem HCl (Diltiazem Hcl 60 Mg Tablet) 60 mg PO QID [facility]; Protocol Last Admin: 11/25/21 21:45 Dose: 60 mg Documented by: Ceftriaxone Sodium 1 gm/ (Sodium Chloride) 50 mls @ 100 mls/hr IV Q24H [facility] Last Infusion: 11/25/21 22:25 Dose: Infused Documented by: Azithromycin 500 mg/ Sodium (Chloride) 250 mls @ 125 mls/hr IV Q24H [facility] Last Infusion: 11/26/21 01:51 Dose: Infused Documented by: Metoprolol Tartrate (Metoprolol Tartrate 12.5 Mg Halftab) 12.5 mg PO BID [facility]; Protocol Last Admin: 11/25/21 21:45 Dose: 12.5 mg Documented by: Ondansetron HCl (Ondansetron Hcl 4 Mg/2 Ml Vial) 4 mg IVPUSH Q8H PRN PRN Reason: Nausea and Vomiting Oxycodone HCl (Oxycodone Hcl Immed Release 5 Mg Tablet) 5 mg PO Q6H PRN PRN Reason: Pain, Severe (Pain Scale 7-10) Last Admin: 11/25/21 14:34 Dose: 5 mg Documented by: Pharmacy Consult (Consult Rx Perform Med Rec) 1 each MISCELLANE ONCE PRN PRN Reason: Consult order Sodium Chloride (0.9 % Sodium Chloride Flush 3 Ml Syringe) 3 ml IVFLUSH QSHIFT [facility] Last Admin: 11/26/21 00:14 Dose: Not Given Documented by: Urea (Urea 15 Gm Powder) 15 gm PO DAILY [facility] Stop: 11/27/21 23:59 Time Spent With Patient Time: Total time spent is greater than 50% in coordination of care (as documented) at patient's floor/unit and/or counseling patient: Time with patient: less than 15 minutes Progress Note: Quality Stroke Does the patient have a stroke diagnosis?: No Procedures Date of Service Date of Service: 11/26/21
[2021-11-26] MEDS: Apixaban 5 MG TABLET PO ×2 (12:32→23:07)
[2021-11-26] MEDS: Urea 15 GM POWDER PO (12:32)
[2021-11-26] MEDS: Metoprolol Tartrate 12.5 MG HALFTAB PO ×2 (12:32→23:07)
[2021-11-26] MEDS: 0.9 % Sodium Chloride Flush 3 ML SYRINGE IVFLUSH ×2 (12:33→17:32)
--- NOTE | 2021-11-26 13:18 | MHC.CM.PN ---
PT IS A LTC RESIDENT OF [facility] LEFT A VM MESSAGE FOR PTS LEGAL [facility], JAG VILLA ([phone]) INFORMING HIM OF ADMISSION, MEDICARE RIGHTS, AND PLAN TO DC TOMORROW. IMM ORIGINAL WILL BE MAILED TO [facility], COPY WAS SENT TO [facility] CURRENT DC PLAN IS RETURN TO [facility] [place] TOMORROW VIA S
[2021-11-26 13:30] LABS: Cortisol Random 19.8 ug/dL
--- NOTE | 2021-11-26 14:06 | PC.NURSE ---
PT. continues to be noncompliant with O2 and monitoring of Telementary and O2 Sats. Redirecting as much as possible
[2021-11-26] MEDS: dilTIAZem HCL 60 MG TABLET PO ×2 (14:14→23:07)
--- NOTE | 2021-11-26 15:48 | HO.PM.IMPN ---
Subjective Subjective Date of Service: 11/26/21 Interval History: no acute issues overnight remains in AFib with varied response based on movement Review of Systems denies chest pain Denies shortness of breath Denies nausea vomiting diarrhea Physical Exam Vital Signs: Vital Signs: Last Vital Signs Temp 97.5 F 11/26/21 12:18 Pulse 76 11/26/21 12:18 Resp 19 11/26/21 12:18 BP 147/79 H 11/26/21 12:18 Pulse Ox 99 11/26/21 12:18 BMI result Body Mass Index 61.2 Const: Other: no acute distress Resp: Other: scattered expiratory wheezes all field Cardio: Other: irregularly irregular; no S4 positive S1-S2 no S3 without murmurs or gallops Extrem: Other: no edema bilaterally Objective Data Active Medications Acetaminophen (Acetaminophen 325 Mg Tablet) 650 mg PO Q6H PRN PRN Reason: Pain, Mild (Pain Scale 1-3) Last Admin: 11/25/21 08:01 Dose: 650 mg Documented by: RAMIRO Apixaban (Apixaban 5 Mg Tablet) 5 mg PO BID [facility] Last Admin: 11/26/21 12:32 Dose: 5 mg Documented by: LASHONDA Dextrose (Dextrose 50 % 25 Gm/50 Ml Vial) 25 gm IVPUSH Q15M PRN PRN Reason: per Hypoglycemia Standing Ord. Diltiazem HCl (Diltiazem Hcl 60 Mg Tablet) 60 mg PO QID [facility]; Protocol Last Admin: 11/26/21 14:14 Dose: 60 mg Documented by: LASHONDA Ceftriaxone Sodium 1 gm/ (Sodium Chloride) 50 mls @ 100 mls/hr IV Q24H [facility] Last Infusion: 11/25/21 22:25 Dose: 0 mls/hr Documented by: ANDREW Azithromycin 500 mg/ Sodium (Chloride) 250 mls @ 125 mls/hr IV Q24H [facility] Last Infusion: 11/26/21 01:51 Dose: 0 mls/hr Documented by: DELILAH Metoprolol Tartrate (Metoprolol Tartrate 12.5 Mg Halftab) 12.5 mg PO BID [facility]; Protocol Last Admin: 11/26/21 12:32 Dose: 12.5 mg Documented by: LASHONDA Ondansetron HCl (Ondansetron Hcl 4 Mg/2 Ml Vial) 4 mg IVPUSH Q8H PRN PRN Reason: Nausea and Vomiting Oxycodone HCl (Oxycodone Hcl Immed Release 5 Mg Tablet) 5 mg PO Q6H PRN PRN Reason: Pain, Severe (Pain Scale 7-10) Last Admin: 11/25/21 14:34 Dose: 5 mg Documented by: ANDREW Pharmacy Consult (Consult Rx Perform Med Rec) 1 each MISCELLANE ONCE PRN PRN Reason: Consult order Sodium Chloride (0.9 % Sodium Chloride Flush 3 Ml Syringe) 3 ml IVFLUSH QSHIFT [facility] Last Admin: 11/26/21 12:33 Dose: 3 ml Documented by: LASHONDA Urea (Urea 15 Gm Powder) 15 gm PO DAILY [facility] Stop: 11/27/21 23:59 Last Admin: 11/26/21 12:32 Dose: 15 gm Documented by: LASHONDA Labs CBC & Chem 7: 11/26/21 06:32 11/26/21 06:32 Labs: Laboratory Results - last 24 hr 11/25/21 11/25/21 11/25/21 16:51 16:51 20:22 MCV MCH MCHC RDW Plt Count MPV Immature Gran % (Auto) Neut % (Auto) Lymph % (Auto) [place] % (Auto) Eos % (Auto) Baso % (Auto) Lymph # (Auto) [place] # (Auto) Eos # (Auto) Baso # (Auto) Abs Immat Gran (auto) Absolute Neuts (auto) Absolute Nucleated RBC Nucleated RBC % (auto) Smear Path Review Anion Gap Estim Creat Clear Calc Estimated GFR POC Glucose 50 L* Fasting Glucose Osmolality 255 L Calcium Total Bilirubin AST ALT Alkaline Phosphatase Total Protein Albumin TSH 1.33 Random Cortisol 11/25/21 11/25/21 11/26/21 21:06 22:36 00:18 MCV MCH MCHC RDW Plt Count MPV Immature Gran % (Auto) Neut % (Auto) Lymph % (Auto) [place] % (Auto) Eos % (Auto) Baso % (Auto) Lymph # (Auto) [place] # (Auto) Eos # (Auto) Baso # (Auto) Abs Immat Gran (auto) Absolute Neuts (auto) Absolute Nucleated RBC Nucleated RBC % (auto) Smear Path Review Anion Gap Estim Creat Clear Calc Estimated GFR POC Glucose 75 99 116 H Fasting Glucose Osmolality Calcium Total Bilirubin AST ALT Alkaline Phosphatase Total Protein Albumin TSH Random Cortisol 11/26/21 11/26/21 11/26/21 06:32 06:32 06:32 MCV 64.3 L MCH 19.0 L MCHC 29.5 L RDW 20.1 H Plt Count 392 MPV 9.1 L Immature Gran % (Auto) 0.8 H Neut % (Auto) 83.6 H Lymph % (Auto) 7.0 L [place] % (Auto) 8.2 Eos % (Auto) 0.3 Baso % (Auto) 0.1 Lymph # (Auto) 1.1 L [place] # (Auto) 1.3 H Eos # (Auto) 0.0 Baso # (Auto) 0.0 Abs Immat Gran (auto) 0.13 H Absolute Neuts (auto) 13.1 H Absolute Nucleated RBC 0.100 H Nucleated RBC % (auto) 0.6 H Smear Path Review SEE NOTE Anion Gap 12 Estim Creat Clear Calc 88.1 Estimated GFR > 60 POC Glucose Fasting Glucose 64 Osmolality Calcium 8.7 Total Bilirubin 0.4 AST 28 ALT 25 Alkaline Phosphatase 114 Total Protein 6.7 Albumin 3.7 TSH Random Cortisol 19.8 Microbiology Microbiology Results: Microbiology 11/25/21 01:42 Blood Culture - Preliminary Blood - Venous No growth after 24 hours. 11/25/21 01:47 Blood Culture - Preliminary Blood - Venous No growth after 24 hours. Assessment and Plan (1) Atrial fibrillation with RVR: Status: Acute (2) Hyponatremia: Status: Acute (3) Pneumonia: Status: Acute Assessment and Plan: 66-year-old female with past medical history of alcoholic liver cirrhosis, dementia, hyponatremia presents to the hospital with AFib with RVR and hyponatremia. 1. AFib with RVR -Will continue Cardizem CD as ordered along with Eliquis to. -IV dig load complete, will follow-up with digoxin - echocardiogram as outpatient 2. Hyponatremia - a.m. cortisol added and normal. - urea given. . . Await response - fluid restriction 1 L per 24 hours 3. COPD exacerbated by pneumonia - diffuse wheezing noted; will order pulse dose steroids and follow-up response - continue antibiotics as ordered 4. DM II - sugars drastically changed from [facility]; will cover with sliding scale only and adjust as appropriate Eliquis Full code Quality Stroke Does the patient have a stroke diagnosis?: No VTE Prior VTE?: No VTE Risk Level:: Medical - moderate - high VTE Device Contraindication: Treatment Not Indicated VTE Drug Contraindication: N/A - Med Ordered
--- NOTE | 2021-11-26 16:18 | PC.NURSE ---
Audible wheezing heard upon first assessment. Plan at this time: MD morrow to order nebs and solumedrol. RT AWARE>
--- NOTE | 2021-11-26 17:20 | PC.NURSE ---
Pt during shift assessment, pt was orientated to room and call rosa. Pt continued to refuse education attempts the use of monitoring equipment, and subsequently continued to undress self. Pt began screaming at me saying I KNOW ALL THIS STUFF STOP TELLING ME. Pt was asked multiple times to utilize call rosa and ask for assistance. After the second time the patient was found screaming i need help, and ambulating around ultimating the elevation of a High fall risk status. Due to the escalating behaviors, and inability to maintaing plan of safety, Pt was moved to a high visibility room to RN station and camera on of safety. Nursing mail handlers supervisor notified.
[2021-11-26] MEDS: Morphine Sulfate 4 MG/ML CARTRIDGE IVPUSH (18:15)
[2021-11-26] MEDS: methylPREDNISolone Sod Succ 125 MG/2 ML VIAL 60 MG IVPUSH (18:20)
[2021-11-26] MEDS: Albuterol/Iprat 2.5/0.5MG 3 ML AMPUL.NEB INHALE ×2 (18:20→23:23)
--- NOTE | 2021-11-26 18:26 | PC.NURSE ---
attempted to call report. No answer at special weapons unit officer desk.
--- NOTE | 2021-11-26 18:35 | PC.NURSE ---
Report given. No questions.
[2021-11-26] MEDS: cefTRIAXone sodium 1 GM in 0.9 % Sodium Chloride 50 ML IV (23:02)
[2021-11-26] MEDS: oxyCODONE HCl Immed Release 5 MG TABLET PO (23:07)
[2021-11-26] MEDS: Azithromycin 500 MG in 0.9 % Sodium Chloride 250 ML 125 MG IV (23:47)
[2021-11-27] VITALS (10 sets, daily range): BP systolic 87–166; BP diastolic 33–105; PULSE 70–130; RESP 17–24; TEMP 36.3–36.4; O2SAT 90–100
[2021-11-27] MEDS: methylPREDNISolone Sod Succ 125 MG/2 ML VIAL 60 MG IVPUSH ×5 (00:51→19:15)
[2021-11-27] MEDS: 0.9 % Sodium Chloride Flush 3 ML SYRINGE IVFLUSH ×3 (00:52→16:12)
[2021-11-27] MEDS: LORazepam 2 MG/ML VIAL 1 MG IVPUSH ×3 (03:23→17:08)
[2021-11-27] MEDS: Morphine Sulfate 4 MG/ML CARTRIDGE IVPUSH ×4 (04:49→19:15)
[2021-11-27] MEDS: Albuterol/Iprat 2.5/0.5MG 3 ML AMPUL.NEB INHALE ×3 (06:27→20:27)
--- NOTE | 2021-11-27 06:37 | PM.EVENT ---
Event Note Date of Service: 11/27/21 Event Note: Pt wheezing, increase work of breathing, increased RR pt refusing to have breathing tx. i pleaded with her. she is alert and oriented but cannot tolerate the mask Sating 90% on RA and refusing NC Will obtain chest xray and give morphine to help reduce respiratory work
--- NOTE | 2021-11-27 07:32 | PC.NURSE ---
Pt admitted from the ED overflow at shift change, O2 at 2-3l/min via NC, pt is resless and impulsive and removing O2 cannula most of the time, oriented x2 but cant comprehend compliance to care and safety, very dim LS throughoutand audible wheezing and rhonchi noted, o2 sats on the low 90s and can desats to high 80s if O2 cannula is off, AF on tele can be uncontrolled if pt is resltess, and pt is hardly complying to it also, pt RT early last noc for neb, but pt refused to finished it, redirected frequently, PRN Lorazepam given with shorrt effect, then pt was back to being restless, prn Morphine given also and pt sleptfora few minutes and waking up restless and more comfused, noted with circumoral cyanosis and desating on the low 80s, Dr. Clay was paged to come see the pt, RT called also to come try give neb, MD and RT tried to convince pt but still not tolerating and refusing neb, Morphine 4 mg IV ordered STAT and given, STAT CXR ordered, pt left on the recliner with TABS alarm on.
[2021-11-27] MEDS: Haloperidol Lactate 5 MG/ML VIAL IM ×2 (08:44→17:09)
[2021-11-27] MEDS: Metoprolol Tartrate 12.5 MG HALFTAB PO (08:44)
[2021-11-27] MEDS: dilTIAZem HCL 60 MG TABLET PO ×2 (08:44→14:10)
[2021-11-27] MEDS: Apixaban 5 MG TABLET PO (08:45)
[2021-11-27] MEDS: HaloperidoL 5 MG TABLET PO (08:45)
[2021-11-27] MEDS: Gabapentin 100 MG CAPSULE PO ×2 (08:45→16:12)
[2021-11-27] MEDS: Urea 15 GM POWDER PO (08:45)
[2021-11-27 08:47] LABS: Basophils Percent Auto 0.1 % (0-2); Hematocrit 32.8 % (37.0-47.0); Hemoglobin 9.7 g/dl (12.0-16.0); Imm Gran Abs Auto 0.15 X10*3/uL (0.00-0.03); Imm Gran Pct Auto 1.5 % (0.0-0.4); Lymphocytes Absolute Auto 0.3 X10*3/uL (1.2-4.9); Lymphocytes Percent Auto 2.7 % (20-40); MANUAL DIFF FLAG SCAN; Mean Corpuscular HGB Conc 29.6 g/dl (31.0-35.0); Mean Corpuscular Hemoglobin 18.9 pg (27.0-33.0); Mean Platelet Volume 9.1 fL (9.4-12.3); Monocytes Absolute Auto 0.1 X10*3/uL (0.1-1.2); Monocytes Percent Auto 0.8 % (2-11); NRBC Pct Auto 0.7 /100WBC (0.0-0.2); Neutrophils Absolute Auto 9.8 x10*3/uL (2.0-8.3); Neutrophils Percent Auto 94.9 % (45-73); Platelet Count 401 X10*3/uL (160-400); Red Blood Count 5.13 X10*6/uL (4.20-5.50); Red Cell Distribution Width 20.3 % (11.0-16.0); SCAN SMEAR FLAG 1; White Blood Count 10.3 X10*3/uL (4.8-10.8)
[2021-11-27 08:50] LABS: Mean Corpuscular Volume 63.9 fL (80.0-98.0)
[2021-11-27 09:23] LABS: Alanine Aminotransferase 30 U/L (0-31); Albumin Level 3.8 g/dL (3.5-5.0); Alkaline Phosphatase 121 U/L (39-117); Anion Gap 17 (12-20); Aspartate Amino Transferase 31 U/L (5-31); Bilirubin Total 0.5 mg/dL (0.0-1.0); Blood Urea Nitrogen 26 mg/dL (9-16); Carbon Dioxide 25 mmol/L (22-29); Chloride 88 mmol/L (96-108); Creatinine Clr Calc Pharmacy 92.7; Estimated Glomerular Filt Rate > 60; Glucose Fasting 193 mg/dL (60-99); Potassium 5.7 mmol/L (3.3-5.1); Sodium 124 mmol/L (135-145); Total Protein 6.8 g/dL (6.5-8.0)
[2021-11-27 09:25] LABS: SLIDE REVIEW VERIFIED
--- NOTE | 2021-11-27 12:39 | HO.PM.IMPN ---
Subjective Subjective Date of Service: 11/27/21 Interval History: events of last 24 hours reviewed; worsening behavior related to acute shortness of breath. Responded well to redirection and ultimately medication. Resting comfortably today Review of Systems denies chest pain Breathing improved Denies nausea vomiting diarrhea Physical Exam Vital Signs: Vital Signs: Last Vital Signs Temp 97.4 F 11/27/21 07:32 Pulse 108 H 11/27/21 09:21 Resp 24 H 11/27/21 09:21 BP 156/74 H 11/27/21 07:32 Pulse Ox 94 11/27/21 07:32 BMI result Body Mass Index 48.9 Const: Other: no acute distress Resp: Other: dense expiratory wheezes all martinez Cardio: Other: irregularly irregular; no S4 positive S1-S2 no S3 without murmurs or gallops Extrem: Other: no edema bilaterally Objective Data Active Medications Acetaminophen (Acetaminophen 325 Mg Tablet) 650 mg PO Q6H PRN PRN Reason: Pain, Mild (Pain Scale 1-3) Last Admin: 11/25/21 08:01 Dose: 650 mg Documented by: RAMIRO Albuterol/Ipratropium (Albuterol/Iprat 2.5/0.5mg 3 Ml Ampul.Neb) 3 ml INHALE Q4H PRN PRN Reason: Wheezing Last Admin: 11/27/21 09:21 Dose: 3 ml Documented by: DAYANARA Apixaban (Apixaban 5 Mg Tablet) 5 mg PO BID [facility] Last Admin: 11/27/21 08:45 Dose: 5 mg Documented by: LASHONDA Dextrose (Dextrose 50 % 25 Gm/50 Ml Vial) 25 gm IVPUSH Q15M PRN PRN Reason: per Hypoglycemia Standing Ord. Diltiazem HCl (Diltiazem Hcl 60 Mg Tablet) 60 mg PO QID [facility]; Protocol Last Admin: 11/27/21 08:44 Dose: 60 mg Documented by: LASHONDA Gabapentin (Gabapentin 100 Mg Capsule) 100 mg PO TID [facility] Last Admin: 11/27/21 08:45 Dose: 100 mg Documented by: LASHONDA Haloperidol (Haloperidol 5 Mg Tablet) 5 mg PO BID [facility] Last Admin: 11/27/21 08:45 Dose: 5 mg Documented by: LASHONDA Hydroxyzine HCl (Hydroxyzine Hcl 25 Mg Tablet) 25 mg PO QID [facility] Last Admin: 11/27/21 11:40 Dose: Not Given Documented by: LASHONDA Non-Admin Reason: Patient Refused Ceftriaxone Sodium 1 gm/ (Sodium Chloride) 50 mls @ 100 mls/hr IV Q24H [facility] Last Infusion: 11/26/21 23:56 Dose: 0 mls/hr Documented by: FAUSTINO Azithromycin 500 mg/ Sodium (Chloride) 250 mls @ 125 mls/hr IV Q24H [facility] Last Infusion: 11/27/21 02:01 Dose: 0 mls/hr Documented by: FAUSTINO Lorazepam (Lorazepam 2 Mg/Ml Vial) 1 mg IVPUSH Q4H PRN PRN Reason: anxiety/restlessness Last Admin: 11/27/21 03:23 Dose: 1 mg Documented by: FAUSTINO Methylprednisolone Sodium Succinate (Methylprednisolone Sod Succ 125 Mg/2 Ml Vial) 60 mg IVPUSH Q6H [facility] Last Admin: 11/27/21 06:23 Dose: 60 mg Documented by: FAUSTINO Metoprolol Tartrate (Metoprolol Tartrate 12.5 Mg Halftab) 12.5 mg PO BID [facility]; Protocol Last Admin: 11/27/21 08:44 Dose: 12.5 mg Documented by: LASHONDA Mirtazapine (Mirtazapine 15 Mg Tablet) 15 mg PO BEDTIME [facility] Morphine Sulfate (Morphine Sulfate 4 Mg/Ml Cartridge) 4 mg IVPUSH Q3H PRN; Protocol PRN Reason: Restlessness Last Admin: 11/27/21 04:49 Dose: 4 mg Documented by: Ondansetron HCl (Ondansetron Hcl 4 Mg/2 Ml Vial) 4 mg IVPUSH Q8H PRN PRN Reason: Nausea and Vomiting Oxycodone HCl (Oxycodone Hcl Immed Release 5 Mg Tablet) 5 mg PO Q6H PRN PRN Reason: Pain, Severe (Pain Scale 7-10) Last Admin: 11/26/21 23:07 Dose: 5 mg Documented by: FAUSTINO Pharmacy Consult (Consult Rx Perform Med Rec) 1 each MISCELLANE ONCE PRN PRN Reason: Consult order Sodium Chloride (0.9 % Sodium Chloride Flush 3 Ml Syringe) 3 ml IVFLUSH QSHIFT [facility] Last Admin: 01/15/22 08:45 Dose: 3 ml Documented by: LASHONDA Urea (Urea 15 Gm Powder) 15 gm PO DAILY GINGER Stop: 11/27/21 23:59 Last Admin: 11/27/21 08:45 Dose: 15 gm Documented by: LASHONDA Labs CBC & Chem 7: 11/27/21 08:14 11/27/21 08:14 Labs: Laboratory Results - last 24 hr 11/24/21 11/24/21 11/25/21 20:38 22:10 08:24 MCV MCH MCHC RDW Plt Count MPV Immature Gran % (Auto) Neut % (Auto) Lymph % (Auto) [place] % (Auto) Eos % (Auto) Baso % (Auto) Lymph # (Auto) [place] # (Auto) Eos # (Auto) Baso # (Auto) Abs Immat Gran (auto) Absolute Neuts (auto) Absolute Nucleated RBC Nucleated RBC % (auto) Smear Tech's Comments Potassium 6.5 H* 5.8 H 5.4 H Anion Gap Estim Creat Clear Calc Estimated GFR Fasting Glucose Calcium Total Bilirubin AST ALT Alkaline Phosphatase Total Protein Albumin Random Cortisol 11/26/21 11/26/21 11/27/21 06:32 06:32 08:14 MCV 63.9 L MCH 18.9 L MCHC 29.6 L RDW 20.3 H Plt Count 401 H MPV 9.1 L Immature Gran % (Auto) 1.5 H Neut % (Auto) 94.9 H Lymph % (Auto) 2.7 L [place] % (Auto) 0.8 L Eos % (Auto) 0.0 Baso % (Auto) 0.1 Lymph # (Auto) 0.3 L [place] # (Auto) 0.1 Eos # (Auto) 0.0 Baso # (Auto) 0.0 Abs Immat Gran (auto) 0.15 H Absolute Neuts (auto) 9.8 H Absolute Nucleated RBC 0.070 H Nucleated RBC % (auto) 0.7 H Smear Tech's Comments VERIFIED Potassium 5.0 Anion Gap Estim Creat Clear Calc Estimated GFR Fasting Glucose Calcium Total Bilirubin AST ALT Alkaline Phosphatase Total Protein Albumin Random Cortisol 19.8 11/27/21 08:14 MCV MCH MCHC RDW Plt Count MPV Immature Gran % (Auto) Neut % (Auto) Lymph % (Auto) [place] % (Auto) Eos % (Auto) Baso % (Auto) Lymph # (Auto) [place] # (Auto) Eos # (Auto) Baso # (Auto) Abs Immat Gran (auto) Absolute Neuts (auto) Absolute Nucleated RBC Nucleated RBC % (auto) Smear Tech's Comments Potassium 5.7 H Anion Gap 17 Estim Creat Clear Calc 92.7 Estimated GFR > 60 Fasting Glucose 193 H Calcium 9.0 Total Bilirubin 0.5 AST 31 ALT 30 Alkaline Phosphatase 121 H Total Protein 6.8 Albumin 3.8 Random Cortisol Microbiology Microbiology Results: Microbiology 11/25/21 01:42 Blood Culture - Preliminary Blood - Venous No growth after 48 hours. 11/25/21 01:47 Blood Culture - Preliminary Blood - Venous No growth after 48 hours. Assessment and Plan (1) Atrial fibrillation with RVR: Status: Acute (2) Hyponatremia: Status: Acute (3) Pneumonia: Status: Acute (4) Acute hyperkalemia: Status: Acute Assessment and Plan: 66-year-old female with past medical history of alcoholic liver cirrhosis, dementia, hyponatremia presents to the hospital with AFib with RVR and hyponatremia. return to sinus rhythm over last 24 hours 1. AFib with RVR -Will continue Cardizem CD as ordered along with Eliquis to. - will hold on digitalis dosing - check echo as outpatient; if depressed EF may need Coreg 2. Hyponatremia - a.m. cortisol added and normal. - urea given. . . sodium slowly responding - fluid restriction 1 L per 24 hours 3. COPD exacerbated by pneumonia - diffuse wheezing noted; will order pulse dose steroids and follow-up response - continue antibiotics as ordered 4. DM II - sugars drastically changed from [facility]; will cover with sliding scale only and adjust as appropriate 5. Schizoaffective disorder -Haldol restarted. IM dose given secondary to agitated episode with excellent response Eliquis Full code Quality Stroke Does the patient have a stroke diagnosis?: No VTE Prior VTE?: No VTE Risk Level:: Medical - moderate - high VTE Device Contraindication: Treatment Not Indicated VTE Drug Contraindication: N/A - Med Ordered
--- NOTE | 2021-11-27 12:50 | PM.PNNEP ---
Subjective Subjective Date of Service: 11/28/21 Interval history: Events noted Physical Exam Vital Signs: Vital Signs: Last Vital Signs Temp 97.4 F 11/27/21 07:32 Pulse 108 H 11/27/21 09:21 Resp 24 H 11/27/21 09:21 BP 156/74 H 11/27/21 07:32 Pulse Ox 94 11/27/21 07:32 BMI result Body Mass Index 48.9 Const: General: cooperative and no acute distress Orientation/consciousness: patient oriented x3 Eyes: General: appearance normal, both eyes and all related structures Pupils: Equal, round and reactive pupils present Resp: Effort & Inspection: normal respiratory effort Auscultation: clear to auscultation bilaterally Cardio: Rate: regular rate Rhythm: regular rhythm GI: Other: no tenderness, no rebound or guarding Palpation (GI): Soft to palpation Auscultation: normal bowel sounds Skin: General skin exam: no rashes or lesions noted Neuro: General: patient oriented x3 Cranial nerves: Yes Equal, round and reactive pupils present Cognition (Neuro): normal cognition Extrem: Other: 1+ pitting edema General: Yes normal to inspection and Yes no pedal edema Objective Data Labs CBC & Chem 7: 11/28/21 05:30 11/28/21 05:30 Labs: Laboratory Results - last 24 hr 11/26/21 11/27/21 11/27/21 06:32 08:14 08:14 WBC 10.3 RBC 5.13 Hgb 9.7 L Hct 32.8 L MCV 63.9 L MCH 18.9 L MCHC 29.6 L RDW 20.3 H Plt Count 401 H MPV 9.1 L Immature Gran % (Auto) 1.5 H Neut % (Auto) 94.9 H Lymph % (Auto) 2.7 L [place] % (Auto) 0.8 L Eos % (Auto) 0.0 Baso % (Auto) 0.1 Lymph # (Auto) 0.3 L [place] # (Auto) 0.1 Eos # (Auto) 0.0 Baso # (Auto) 0.0 Abs Immat Gran (auto) 0.15 H Absolute Neuts (auto) 9.8 H Absolute Nucleated RBC 0.070 H Nucleated RBC % (auto) 0.7 H Smear Tech's Comments VERIFIED Sodium 124 L Potassium 5.7 H Chloride 88 L Carbon Dioxide 25 Anion Gap 17 BUN 26 H D Creatinine 0.83 Estim Creat Clear Calc 92.7 Estimated GFR > 60 Fasting Glucose 193 H Calcium 9.0 Total Bilirubin 0.5 AST 31 ALT 30 Alkaline Phosphatase 121 H Total Protein 6.8 Albumin 3.8 Random Cortisol 19.8 Microbiology Microbiology Results: Microbiology 11/25/21 01:42 Blood - Venous Blood Culture - Preliminary No growth after 48 hours. 11/25/21 01:47 Blood - Venous Blood Culture - Preliminary No growth after 48 hours. Procedures Date of Service Date of Service: 11/27/21 Assessment & Plan Assessment and plan (1) Atrial fibrillation with RVR: Status: Acute (2) Hyponatremia: Status: Acute (3) Acute hyperkalemia: Status: Acute (4) Dyspnea: Status: Acute (5) Acute anaphylaxis: Status: Acute Assessment and Plan: 66-year-old female with past medical history of alcoholic liver cirrhosis, dementia, hyponatremia presents to the hospital with AFib with RVR Chronic hypnatremia Most likely has euvolemic hyponatremia Keep PO water restriction Hyperkalemia due to decreased K excretion Low Jeancarlos sugestive of hypoperfusion cortisol 19 Suggest Restrict PO water intake to 1 L per 24 hrs Goal Na > 130 over next 24- 24 hours Urea powder 15 gm QD x2 doses ( done) Kayexalate 15 mg QD 2gm potassium diet Time Spent With Patient Time: Total time spent is greater than 50% in coordination of care (as documented) at patient's floor/unit and/or counseling patient: Time with patient: 15 - 24 minutes Progress Note: Quality Stroke Does the patient have a stroke diagnosis?: No
[2021-11-27] MEDS: hydrOXYzine HCL 25 MG TABLET PO (14:10)
[2021-11-27] MEDS: Sodium Zirconium Cyclosilicate 10 GM POWD.PACK PO (14:10)
[2021-11-27] MEDS: Sodium Polystyrene Sulfon/Sorb 15 GM/60 ML ORAL.SUSP PO (16:12)
[2021-11-27] MEDS: propofoL 200 MG/20 ML VIAL 100 MG IVPUSH (19:20)
[2021-11-27] MEDS: Rocuronium Bromide 50 MG/5 ML VIAL IVPUSH (19:24)
--- NOTE | 2021-11-27 19:32 | MHC.PIE ---
Pt attempting to climb OOB. This RN assisted pt BTB. This RN noticed pt to have severe eye and facial edema bilaterally and pt to be in stridor and wheezing. When asked her name or difficulty breathing, pt did not answer. Rapid response called. Dr Clay present along with [employer]OUN[employer]IP[employer] MECH[employer]IC, resp therapy, and superviser. Benadryl , solumedrol, and morphine IV given by FOUN[employer] EQUIP[employer] MECHANIC per MD order. O2 sats 96-98% on 2L NC. HR via telemonitor 130's. Pt transported to ICU via bed by MD, FOUN[employer] EQUIP[employer] MECHANIC, and Resp therapy.
[2021-11-27] MEDS: EPINEPHrine 1 MG/10 ML SYRINGE IVPUSH (19:36)
[2021-11-27] MEDS: propofoL 1,000 MG/100 ML VIAL 24.77 MG IVCONT (19:50)
--- NOTE | 2021-11-27 19:57 | PM.EVENT ---
Event Note Date of Service: 11/27/21 Event Note: a rapid response was called on the pt due to difficulty breathing, wheezing, as well as swelling around her eyes. pt is having increased respiratory rate, significant expiratory wheezing throughout the lungs,. RT placed pt on NRB, with O2 improving to 97%. Pt given 50 of benadryl, 40 of pepcid and 125 of solu-medrol and morphine. Pt is being transferred to ICU for possible intubation given her angioedema
--- NOTE | 2021-11-27 19:58 | PM.CCN ---
Critical Care Event Note Summary Date of Service: 11/27/21 <Coreen TONY Tian - Last Filed: 11/28/21 03:13> Code activated: No <Coreen Tian TONY - Last Filed: 11/28/21 03:13> Narrative: This case had a high probability of a clinically significant, sudden, or life threatening deterioration of this patient's condition which required my full and direct attention, intervention and personal management. <Coreen Tian PA-C - Last Filed: 11/28/21 03:13> Critical Care Time (minutes): 60 <Coreen Tian PA-C - Last Filed: 11/28/21 03:13> Comment: Patient is a 58-year-old female with a past medical history of alcoholic cirrhosis, dementia, hyponatremia, chronic kidney disease, schizoaffective disorder, morbid obesity and asthma who was admitted to this hospital on November 25 for hyperkalemia, hyponatremia, AFib with RVR and PNA. Patient has been refusing breathing treatments and was found by her nurse this evening wheezing heavily, difficulty breathing and her eyes and lips were extremely swollen. A rapid response was called around 7:15pm, Dr. Mora was at the bedside when I arrived. Soluemdrol, Benadryl and Pepcid were ordered. Pt vitals were not readily available. Physical exam revealed stridor and diffuse inspiratory and expiratory wheezes, pt in respiratory distress but not allowing oxygen mask to be placed on her. Patient was becoming slightly obtunded although this could be her baseline dementia. I decided to bring the patient to the ICU in intubate. Patient was given 1 mg racemic epi in the ICU. Patient was a difficult intubation, Dr. Negro assisted. Pt is currently intubated, sedated and stable. Pt is on lisinopril at home but it doesn't appear she has rec'd it since she has been admitted. Upon investigation with pharmacy, the only new medications she rec'd this afternoon were lokelma/sodium zirconium cyclosilicate and kayexelate. Will have Dr Zee discuss with nephrology tomorrow. Will hold meds for now. Could have been from her dinner as well however the patient ordered a cheeseburger, mashed potatoes and chicken noodle soup but her dinner tray was not touched. Overnight, pt's facial swelling has been reduced. Dr Zee aware of assessment and plan. <Coreen Tian PA-C - Last Filed: 11/28/21 03:13> Critical Care Time Critical Care Time (minutes): 60 <Coreen Tian PA-C - Last Filed: 11/28/21 03:13>
--- NOTE | 2021-11-27 20:48 | W.PM.CCHP ---
Procedures Date of Service Date of Service: 11/27/21 <Coreen Tian PA-C - Last Filed: 11/27/21 20:50> Central Line Placement Right IJ: Central Line Comments: venous access needed <Coreen Tian PA-C - Last Filed: 11/27/21 20:50> Consent for Procedure: Emergent-no informed consent obtained <Coreen Tian PA-C - Last Filed: 11/27/21 20:50> Time out performed: Yes <TONY Watts Last Filed: 11/27/21 20:50> Sterile Technique Used: Yes <Coreen Tian PA-C - Last Filed: 11/27/21 20:50> Patient placed on monitor/pulse ox: Yes <Coreen Tian PA-C - Last Filed: 11/27/21 20:50> MD prep: mask, gown and gloves <Coreen Tian PA-C - Last Filed: 11/27/21 20:50> Central line prep: Chlorhexidine scrub and sterile drapes applied <TONY Watts Last Filed: 11/27/21 20:50> Ultrasound used for placement: Yes <TONY Watts Last Filed: 11/27/21 20:50> Central line lumen inserted: triple <Coreen Tian PA-C - Last Filed: 11/27/21 20:50> Post procedure: sutured in place, good blood return, all ports aspirated, flushed, capped and sterile dressing applied <TONY Watts Last Filed: 11/27/21 20:50> Post procedure x-ray: tip of catheter in good position and no pneumothorax seen <TONY Watts Last Filed: 11/27/21 20:50> Patient tolerated procedure: well and no complications <Coreen Tian PA-C - Last Filed: 11/27/21 20:50> Complications: none <TONY Watts Last Filed: 11/27/21 20:50> Intubation Intubation Comments: Dr real performed as pt had difficult airway <Coreen Tian PA-C - Last Filed: 11/27/21 20:50> Consent for Procedure: Emergent-no informed consent obtained <TONY Watts Last Filed: 11/27/21 20:50> Sedative: propofol <TONY Watts Last Filed: 11/27/21 20:50> Mg given: 100 <Coreen Tian PA-C - Last Filed: 11/27/21 20:50> Paralytic: rocuronium <TONY Watts Last Filed: 11/27/21 20:50> Mg given: 50 <TONY Watts Last Filed: 11/27/21 20:50> Laryngoscope: Tubbs and fiber optic video scope <TONY Watts Last Filed: 11/27/21 20:50> Assist device used: Bougie <TONY Watts Last Filed: 11/27/21 20:50> ET tube size: 7.5 <TONY Watts Last Filed: 11/27/21 20:50> Tube placement confirmation: visualized tube passing through cords, equal breath sounds bilaterally, no breath sounds over epigastrium and confirmation by capnometry <TONY Watts Last Filed: 11/27/21 20:50> Patient tolerated procedure: well and no complications <TONY Watts Last Filed: 11/27/21 20:50> Intubation complications: difficult intubation <TONY Watts Last Filed: 11/27/21 20:50>
[2021-11-27] MEDS: fentaNYL citrate/NS 1,000 MCG/100 ML PLAST..BAG 5 MCG IVCONT (20:56)
[2021-11-27] MEDS: propofoL 1,000 MG/100 ML VIAL 41.28 MG IVCONT ×2 (21:33→23:56)
[2021-11-27 21:39] LABS: Hemoglobin 8.6 g/dl (12.0-16.0); Imm Gran Abs Auto 0.07 X10*3/uL (0.00-0.03); Imm Gran Pct Auto 0.7 % (0.0-0.4); Lymphocytes Absolute Auto 0.2 X10*3/uL (1.2-4.9); Lymphocytes Percent Auto 2.4 % (20-40); MANUAL DIFF FLAG SCAN; Mean Corpuscular HGB Conc 29.7 g/dl (31.0-35.0); Mean Platelet Volume 9.3 fL (9.4-12.3); Monocytes Absolute Auto 0.3 X10*3/uL (0.1-1.2); Monocytes Percent Auto 2.6 % (2-11); Neutrophils Absolute Auto 9.3 x10*3/uL (2.0-8.3); Neutrophils Percent Auto 94.3 % (45-73); Platelet Count 341 X10*3/uL (160-400); Red Blood Count 4.52 X10*6/uL (4.20-5.50); Red Cell Distribution Width 19.9 % (11.0-16.0); SCAN SMEAR FLAG 1; White Blood Count 9.9 X10*3/uL (4.8-10.8)
[2021-11-27 21:42] LABS: Mean Corpuscular Volume 64.2 fL (80.0-98.0)
[2021-11-27 21:45] LABS: INTERNATIONAL NORM RATIO 2.3 (0.9-1.1); Prothrombin Time 26.2 SEC (9.9-13.0)
[2021-11-27 22:10] LABS: Alanine Aminotransferase 26 U/L (0-31); Albumin Level 3.3 g/dL (3.5-5.0); Alkaline Phosphatase 99 U/L (39-117); Anion Gap 16 (12-20); Aspartate Amino Transferase 27 U/L (5-31); Bilirubin Direct 0.3 mg/dL (0.0-0.5); Bilirubin Total 0.5 mg/dL (0.0-1.0); Blood Urea Nitrogen 37 mg/dL (9-16); Calcium 8.7 mg/dL (8.4-10.2); Carbon Dioxide 26 mmol/L (22-29); Chloride 86 mmol/L (96-108); Estimated Glomerular Filt Rate 55; Glucose Random 269 mg/dL (60-115); Phosphorus 3.6 mg/dL (2.7-4.5); Sodium 123 mmol/L (135-145); Total Protein 5.9 g/dL (6.5-8.0)
[2021-11-27 22:10] LABS: Glucose, Whole Blood 215 mg/dL (60-115)
[2021-11-27 22:17] LABS: SLIDE REVIEW VERIFIED
[2021-11-27] MEDS: cefTRIAXone sodium 1 GM in 0.9 % Sodium Chloride 50 ML IV (23:00)
--- NOTE | 2021-11-27 23:23 | PC.NURSE ---
rapid response called at about 1815, this RN to bed side, pt face swollen, wheezing and stidorous. per hospitalist, IVP morphine, solumedrol, and bendryl given. pt put on 15L NRB, pt transfered to ICU. Rocuronium and propofol IVP given per EMAR. Pt intuabted by ER , 1mg IVP epinepherine given per PA. Pt intuyabted at 1930, + color change, vent settings AC rate 18, TV 400, peep 8, fio2 50, 7.5, 25 at the lip. Pt not following commands, difficulty tolerating vent, propofol titrated per emar, fentanyl gtt started. Difficult IV access, multiple RNs attempted, TLC put in by PA,, og and mehta placed by rn, CXR ti confirm placement. Afib on tele, VSS- levophed gtt started per emar. Fungal rash in abd folds, glen area and under breast.
[2021-11-28] VITALS (31 sets, daily range): BP systolic 106–144; BP diastolic 29–59; PULSE 69–113; RESP 17–20; TEMP 34–36; O2SAT 91–100
[2021-11-28] MEDS: methylPREDNISolone Sod Succ 125 MG/2 ML VIAL 60 MG IVPUSH ×4 (00:10→18:16)
[2021-11-28] MEDS: Azithromycin 500 MG in 0.9 % Sodium Chloride 250 ML 125 MG IV (00:10)
[2021-11-28] MEDS: 0.9 % Sodium Chloride Flush 3 ML SYRINGE IVFLUSH ×4 (00:10→20:18)
[2021-11-28 00:31] LABS: Glucose, Whole Blood 225 mg/dL (60-115)
[2021-11-28] MEDS: Albuterol/Iprat 2.5/0.5MG 3 ML AMPUL.NEB INHALE ×6 (01:03→20:44)
[2021-11-28 01:10] LABS: VBG Base Excess 1.6 mmol/L; VBG HCO3 25 mmol/L (22-26); VBG pCO2 35 mmHg; VBG pH 7.46 (7.32-7.43); VBG pO2 40 mmHg
[2021-11-28 01:23] LABS: Venous Blood Gas Refer to POC result
[2021-11-28] MEDS: propofoL 1,000 MG/100 ML VIAL 33.02 MG IVCONT ×7 (02:18→22:19)
[2021-11-28 04:43] LABS: Sodium Urine Random < 20.0 mmol/L
[2021-11-28 05:29] LABS: VBG Base Excess 2.4 mmol/L; VBG HCO3 24 mmol/L (22-26); VBG pCO2 29 mmHg; VBG pH 7.52 (7.32-7.43); VBG pO2 45 mmHg
[2021-11-28 05:38] LABS: Venous Blood Gas Refer to POC result
[2021-11-28 05:41] LABS: MANUAL DIFF FLAG NO
[2021-11-28 05:51] LABS: Basophils Percent Auto 0.1 % (0-2); Hematocrit 28.2 % (37.0-47.0); Hemoglobin 8.5 g/dl (12.0-16.0); Imm Gran Abs Auto 0.12 X10*3/uL (0.00-0.03); Imm Gran Pct Auto 1.1 % (0.0-0.4); Lymphocytes Absolute Auto 0.4 X10*3/uL (1.2-4.9); Mean Corpuscular HGB Conc 30.1 g/dl (31.0-35.0); Mean Corpuscular Hemoglobin 18.9 pg (27.0-33.0); Monocytes Absolute Auto 0.5 X10*3/uL (0.1-1.2); Monocytes Percent Auto 4.8 % (2-11); Neutrophils Absolute Auto 9.7 x10*3/uL (2.0-8.3); Platelet Count 308 X10*3/uL (160-400); Red Cell Distribution Width 19.6 % (11.0-16.0); White Blood Count 10.8 X10*3/uL (4.8-10.8)
[2021-11-28 06:09] LABS: Anion Gap 16 (12-20); Blood Urea Nitrogen 33 mg/dL (9-16); Calcium 8.7 mg/dL (8.4-10.2); Carbon Dioxide 24 mmol/L (22-29); Chloride 88 mmol/L (96-108); Creatinine Clr Calc Pharmacy 93.9; Estimated Glomerular Filt Rate > 60; Glucose Random 238 mg/dL (60-115); Magnesium 1.9 mg/dL (1.6-2.6); Phosphorus 2.6 mg/dL (2.7-4.5); Sodium 123 mmol/L (135-145)
[2021-11-28 06:12] LABS: Mean Corpuscular Volume 62.7 fL (80.0-98.0); NRBC Pct Auto 1.2 /100WBC (0.0-0.2)
[2021-11-28 06:13] LABS: B Type Natriuretic Peptide 170 pg/mL (<100)
[2021-11-28] MEDS: hydrOXYzine HCL 25 MG TABLET PO (09:32)
[2021-11-28] MEDS: Chlorhexidine Gluc Oral Rinse 15 ML MOUTHWASH BUCCAL ×3 (09:32→20:15)
[2021-11-28] MEDS: dilTIAZem HCL 60 MG TABLET PO (09:33)
[2021-11-28] MEDS: Gabapentin 100 MG CAPSULE PO (09:33)
[2021-11-28] MEDS: Apixaban 5 MG TABLET PO ×2 (09:33→20:18)
[2021-11-28 10:10] LABS: Osmolality Urine 539 mosm/kg (373-1093)
--- NOTE | 2021-11-28 10:31 | P.PNCC_ITS ---
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 history of schizoaffective dis. and COPD and hypertension stopped ceftriaxone and lisinopril lung issue looked more like interstitial edema rather than infection ready to wean vent-just need leak test to establish airway adequacy Critical Care Time (minutes): 60 Physical Exam Vital Signs: Vital Signs: Last Vital Signs Temp 96.1 F L 11/28/21 10:00 Pulse 99 11/28/21 10:00 Resp 18 11/28/21 10:00 BP 106/49 L 11/28/21 10:00 Pulse Ox 91 L 11/28/21 10:00 BMI result Body Mass Index 48.9 sedated/intubated-nonfocal NSR with n ormal bedside echo for LV/RV fx. lungs without adventitious sounds abd benign Objective Data Labs CBC & Chem 7: 12/01/21 05:15 12/01/21 05:15 Labs: Laboratory Results - last 24 hr 11/27/21 11/27/21 11/27/21 21:21 21:31 21:31 WBC 9.9 RBC 4.52 Hgb 8.6 L Hct 29.0 L MCV 64.2 L MCH 19.0 L MCHC 29.7 L RDW 19.9 H Plt Count 341 MPV 9.3 L Immature Gran % (Auto) 0.7 H Neut % (Auto) 94.3 H Lymph % (Auto) 2.4 L [place] % (Auto) 2.6 Eos % (Auto) 0.0 Baso % (Auto) 0.0 Lymph # (Auto) 0.2 L [place] # (Auto) 0.3 Eos # (Auto) 0.0 Baso # (Auto) 0.0 Abs Immat Gran (auto) 0.07 H Absolute Neuts (auto) 9.3 H Absolute Nucleated RBC 0.100 H Nucleated RBC % (auto) 1.0 H Smear Tech's Comments VERIFIED PT 26.2 H INR 2.3 H VBG pH VBG pCO2 VBG pO2 VBG HCO3 VBG O2 Saturation VBG Base Excess Sodium Potassium Chloride Carbon Dioxide Anion Gap BUN Creatinine Estim Creat Clear Calc Estimated GFR POC Glucose 215 H Random Glucose Calcium Phosphorus Magnesium Total Bilirubin Direct Bilirubin AST ALT Alkaline Phosphatase B-Natriuretic Peptide Total Protein Albumin Urine Osmolality Ur Random Sodium 11/27/21 11/28/21 11/28/21 21:31 00:19 01:02 WBC RBC Hgb Hct MCV MCH MCHC RDW Plt Count MPV Immature Gran % (Auto) Neut % (Auto) Lymph % (Auto) [place] % (Auto) Eos % (Auto) Baso % (Auto) Lymph # (Auto) [place] # (Auto) Eos # (Auto) Baso # (Auto) Abs Immat Gran (auto) Absolute Neuts (auto) Absolute Nucleated RBC Nucleated RBC % (auto) Smear Tech's Comments PT INR VBG pH 7.46 H VBG pCO2 35 VBG pO2 40 VBG HCO3 25 VBG O2 Saturation 58.0 VBG Base Excess 1.6 Sodium 123 L Potassium 5.0 Chloride 86 L Carbon Dioxide 26 Anion Gap 16 BUN 37 H Creatinine 1.00 Estim Creat Clear Calc 77.0 Estimated GFR 55 POC Glucose 225 H Random Glucose 269 H Calcium 8.7 Phosphorus 3.6 Magnesium 2.0 Total Bilirubin 0.5 Direct Bilirubin 0.3 AST 27 ALT 26 Alkaline Phosphatase 99 B-Natriuretic Peptide Total Protein 5.9 L Albumin 3.3 L Urine Osmolality Ur Random Sodium 11/28/21 11/28/21 11/28/21 03:36 03:37 05:21 WBC RBC Hgb Hct MCV MCH MCHC RDW Plt Count MPV Immature Gran % (Auto) Neut % (Auto) Lymph % (Auto) [place] % (Auto) Eos % (Auto) Baso % (Auto) Lymph # (Auto) [place] # (Auto) Eos # (Auto) Baso # (Auto) Abs Immat Gran (auto) Absolute Neuts (auto) Absolute Nucleated RBC Nucleated RBC % (auto) Smear Tech's Comments PT INR VBG pH 7.52 H VBG pCO2 29 VBG pO2 45 VBG HCO3 24 VBG O2 Saturation 71.0 VBG Base Excess 2.4 Sodium Potassium Chloride Carbon Dioxide Anion Gap BUN Creatinine Estim Creat Clear Calc Estimated GFR POC Glucose Random Glucose Calcium Phosphorus Magnesium Total Bilirubin Direct Bilirubin AST ALT Alkaline Phosphatase B-Natriuretic Peptide Total Protein Albumin Urine Osmolality 539 Ur Random Sodium < 20.0 11/28/21 11/28/21 11/28/21 05:30 05:30 05:30 WBC 10.8 RBC 4.50 Hgb 8.5 L Hct 28.2 L MCV 62.7 L MCH 18.9 L MCHC 30.1 L RDW 19.6 H Plt Count 308 MPV 9.0 L Immature Gran % (Auto) 1.1 H Neut % (Auto) 90.0 H Lymph % (Auto) 4.0 L [place] % (Auto) 4.8 Eos % (Auto) 0.0 Baso % (Auto) 0.1 Lymph # (Auto) 0.4 L [place] # (Auto) 0.5 Eos # (Auto) 0.0 Baso # (Auto) 0.0 Abs Immat Gran (auto) 0.12 H Absolute Neuts (auto) 9.7 H Absolute Nucleated RBC 0.130 H Nucleated RBC % (auto) 1.2 H Smear Tech's Comments PT INR VBG pH VBG pCO2 VBG pO2 VBG HCO3 VBG O2 Saturation VBG Base Excess Sodium 123 L Potassium 5.0 Chloride 88 L Carbon Dioxide 24 Anion Gap 16 BUN 33 H Creatinine 0.82 Estim Creat Clear Calc 93.9 Estimated GFR > 60 POC Glucose Random Glucose 238 H Calcium 8.7 Phosphorus 2.6 L Magnesium 1.9 Total Bilirubin Direct Bilirubin AST ALT Alkaline Phosphatase B-Natriuretic Peptide 170 H Total Protein Albumin Urine Osmolality Ur Random Sodium Microbiology Microbiology Results: Microbiology 11/25/21 01:42 Blood - Venous Blood Culture - Preliminary No growth after 48 hours. 11/25/21 01:47 Blood - Venous Blood Culture - Preliminary No growth after 48 hours. Progress Note: A&P Assessment and plan (1) Acute encephalopathy: Status: Acute (2) Acute respiratory failure: Status: Acute (3) Schizoaffective disorder: Status: Acute (4) CKD (chronic kidney disease): Status: Acute (5) Alcoholic cirrhosis of liver: Status: Acute (6) Angioedema: Status: Acute (7) Acute anaphylaxis: Status: Acute (8) Dyspnea: Status: Acute (9) Hyponatremia: Status: Acute (10) Atrial fibrillation with RVR: Status: Acute (11) Pneumonia: Status: Acute (12) Chronic hyponatremia: Status: Acute (13) Acute hyperkalemia: Status: Acute Assessment and Plan: for hyponatremia, which appears to be inappropriate ADH, started po urea a. fib seems to chronic vent wean in AM if leak test is adequate Quality Stroke Does the patient have a stroke diagnosis?: No VTE Prior VTE?: No VTE Risk Level:: Medical - moderate - high VTE Device Contraindication: Treatment Not Indicated VTE Drug Contraindication: N/A - Med Ordered
[2021-11-28] MEDS: Urea 15 GM POWDER PO (10:42)
[2021-11-28 11:55] LABS: Glucose, Whole Blood 243 mg/dL (60-115)
[2021-11-28] MEDS: propofoL 1,000 MG/100 ML VIAL 41.28 MG IVCONT (12:44)
--- NOTE | 2021-11-28 16:51 | PM.PNNEP ---
Subjective Subjective Date of Service: 11/28/21 Interval history: Events noted Transfered to ICU Intubated Physical Exam Vital Signs: Vital Signs: Last Vital Signs Temp 96.1 F L 11/28/21 15:58 Pulse 105 H 11/28/21 15:58 Resp 18 11/28/21 15:58 BP 134/52 L 11/28/21 15:58 Pulse Ox 99 11/28/21 15:58 BMI result Body Mass Index 48.9 Const: Other: Intubated Objective Data Labs CBC & Chem 7: 11/28/21 05:30 11/28/21 05:30 Labs: Laboratory Results - last 24 hr 11/27/21 11/27/21 11/27/21 21:21 21:31 21:31 WBC 9.9 RBC 4.52 Hgb 8.6 L Hct 29.0 L MCV 64.2 L MCH 19.0 L MCHC 29.7 L RDW 19.9 H Plt Count 341 MPV 9.3 L Immature Gran % (Auto) 0.7 H Neut % (Auto) 94.3 H Lymph % (Auto) 2.4 L [place] % (Auto) 2.6 Eos % (Auto) 0.0 Baso % (Auto) 0.0 Lymph # (Auto) 0.2 L [place] # (Auto) 0.3 Eos # (Auto) 0.0 Baso # (Auto) 0.0 Abs Immat Gran (auto) 0.07 H Absolute Neuts (auto) 9.3 H Absolute Nucleated RBC 0.100 H Nucleated RBC % (auto) 1.0 H Smear Tech's Comments VERIFIED PT 26.2 H INR 2.3 H VBG pH VBG pCO2 VBG pO2 VBG HCO3 VBG O2 Saturation VBG Base Excess Sodium Potassium Chloride Carbon Dioxide Anion Gap BUN Creatinine Estim Creat Clear Calc Estimated GFR POC Glucose 215 H Random Glucose Calcium Phosphorus Magnesium Total Bilirubin Direct Bilirubin AST ALT Alkaline Phosphatase B-Natriuretic Peptide Total Protein Albumin Urine Osmolality Ur Random Sodium 11/27/21 11/28/21 11/28/21 21:31 00:19 01:02 WBC RBC Hgb Hct MCV MCH MCHC RDW Plt Count MPV Immature Gran % (Auto) Neut % (Auto) Lymph % (Auto) [place] % (Auto) Eos % (Auto) Baso % (Auto) Lymph # (Auto) [place] # (Auto) Eos # (Auto) Baso # (Auto) Abs Immat Gran (auto) Absolute Neuts (auto) Absolute Nucleated RBC Nucleated RBC % (auto) Smear Tech's Comments PT INR VBG pH 7.46 H VBG pCO2 35 VBG pO2 40 VBG HCO3 25 VBG O2 Saturation 58.0 VBG Base Excess 1.6 Sodium 123 L Potassium 5.0 Chloride 86 L Carbon Dioxide 26 Anion Gap 16 BUN 37 H Creatinine 1.00 Estim Creat Clear Calc 77.0 Estimated GFR 55 POC Glucose 225 H Random Glucose 269 H Calcium 8.7 Phosphorus 3.6 Magnesium 2.0 Total Bilirubin 0.5 Direct Bilirubin 0.3 AST 27 ALT 26 Alkaline Phosphatase 99 B-Natriuretic Peptide Total Protein 5.9 L Albumin 3.3 L Urine Osmolality Ur Random Sodium 11/28/21 11/28/21 11/28/21 03:36 03:37 05:21 WBC RBC Hgb Hct MCV MCH MCHC RDW Plt Count MPV Immature Gran % (Auto) Neut % (Auto) Lymph % (Auto) [place] % (Auto) Eos % (Auto) Baso % (Auto) Lymph # (Auto) [place] # (Auto) Eos # (Auto) Baso # (Auto) Abs Immat Gran (auto) Absolute Neuts (auto) Absolute Nucleated RBC Nucleated RBC % (auto) Smear Tech's Comments PT INR VBG pH 7.52 H VBG pCO2 29 VBG pO2 45 VBG HCO3 24 VBG O2 Saturation 71.0 VBG Base Excess 2.4 Sodium Potassium Chloride Carbon Dioxide Anion Gap BUN Creatinine Estim Creat Clear Calc Estimated GFR POC Glucose Random Glucose Calcium Phosphorus Magnesium Total Bilirubin Direct Bilirubin AST ALT Alkaline Phosphatase B-Natriuretic Peptide Total Protein Albumin Urine Osmolality 539 Ur Random Sodium < 20.0 11/28/21 11/28/21 11/28/21 05:30 05:30 05:30 WBC 10.8 RBC 4.50 Hgb 8.5 L Hct 28.2 L MCV 62.7 L MCH 18.9 L MCHC 30.1 L RDW 19.6 H Plt Count 308 MPV 9.0 L Immature Gran % (Auto) 1.1 H Neut % (Auto) 90.0 H Lymph % (Auto) 4.0 L [place] % (Auto) 4.8 Eos % (Auto) 0.0 Baso % (Auto) 0.1 Lymph # (Auto) 0.4 L [place] # (Auto) 0.5 Eos # (Auto) 0.0 Baso # (Auto) 0.0 Abs Immat Gran (auto) 0.12 H Absolute Neuts (auto) 9.7 H Absolute Nucleated RBC 0.130 H Nucleated RBC % (auto) 1.2 H Smear Tech's Comments PT INR VBG pH VBG pCO2 VBG pO2 VBG HCO3 VBG O2 Saturation VBG Base Excess Sodium 123 L Potassium 5.0 Chloride 88 L Carbon Dioxide 24 Anion Gap 16 BUN 33 H Creatinine 0.82 Estim Creat Clear Calc 93.9 Estimated GFR > 60 POC Glucose Random Glucose 238 H Calcium 8.7 Phosphorus 2.6 L Magnesium 1.9 Total Bilirubin Direct Bilirubin AST ALT Alkaline Phosphatase B-Natriuretic Peptide 170 H Total Protein Albumin Urine Osmolality Ur Random Sodium 11/28/21 11:51 WBC RBC Hgb Hct MCV MCH MCHC RDW Plt Count MPV Immature Gran % (Auto) Neut % (Auto) Lymph % (Auto) [place] % (Auto) Eos % (Auto) Baso % (Auto) Lymph # (Auto) [place] # (Auto) Eos # (Auto) Baso # (Auto) Abs Immat Gran (auto) Absolute Neuts (auto) Absolute Nucleated RBC Nucleated RBC % (auto) Smear Tech's Comments PT INR VBG pH VBG pCO2 VBG pO2 VBG HCO3 VBG O2 Saturation VBG Base Excess Sodium Potassium Chloride Carbon Dioxide Anion Gap BUN Creatinine Estim Creat Clear Calc Estimated GFR POC Glucose 243 H Random Glucose Calcium Phosphorus Magnesium Total Bilirubin Direct Bilirubin AST ALT Alkaline Phosphatase B-Natriuretic Peptide Total Protein Albumin Urine Osmolality Ur Random Sodium Microbiology Microbiology Results: Microbiology 11/28/21 09:32 Sputum - Suctioned Gram Stain - Final 11/25/21 01:42 Blood - Venous Blood Culture - Preliminary No growth after 48 hours. 11/25/21 01:47 Blood - Venous Blood Culture - Preliminary No growth after 48 hours. Procedures Date of Service Date of Service: 11/28/21 Assessment & Plan Assessment and plan (1) Atrial fibrillation with RVR: Status: Acute (2) Hyponatremia: Status: Acute (3) Acute hyperkalemia: Status: Acute (4) Dyspnea: Status: Acute (5) Acute anaphylaxis: Status: Acute Assessment and Plan: 66-year-old female with past medical history of alcoholic liver cirrhosis, dementia, hyponatremia presents to the hospital with AFib with RVR Chronic hypnatremia Most likely has euvolemic hyponatremia Keep PO water restriction Hyperkalemia due to decreased K excretion Low Jeancarlos sugestive of hypoperfusion cortisol 19 Suggest Restrict PO water intake to 1 L per 24 hrs Goal Na > 130 over next 24- 24 hours Urea powder 15 gm QD x2 doses ( done) Kayexalate 15 mg QD Check urine chloride in view of elevated pH Time Spent With Patient Time: Total time spent is greater than 50% in coordination of care (as documented) at patient's floor/unit and/or counseling patient: Time with patient: 15 - 24 minutes Progress Note: Quality Stroke Does the patient have a stroke diagnosis?: No
[2021-11-28 17:40] LABS: Glucose, Whole Blood 242 mg/dL (60-115)
[2021-11-28] MEDS: Digoxin 0.5 MG/2 ML AMPUL IVPUSH (18:16)
[2021-11-28 20:09] LABS: Chloride Urine Random < 20.0 mmol/L
[2021-11-28 20:27] LABS: Anion Gap 13 (12-20); Blood Urea Nitrogen 36 mg/dL (9-16); Carbon Dioxide 29 mmol/L (22-29); Chloride 88 mmol/L (96-108); Creatinine Clr Calc Pharmacy 90.6; Estimated Glomerular Filt Rate > 60; Glucose Random 282 mg/dL (60-115); Potassium 4.4 mmol/L (3.3-5.1); Sodium 126 mmol/L (135-145)
[2021-11-28] MEDS: fentaNYL citrate/NS 1,000 MCG/100 ML PLAST..BAG 2.5 MCG IVCONT (21:29)
[2021-11-29] VITALS (33 sets, daily range): BP systolic 92–125; BP diastolic 39–78; PULSE 67–159; RESP 15–35; TEMP 34–37.4; O2SAT 85–100; BMI 48.9
[2021-11-29] MEDS: Albuterol/Iprat 2.5/0.5MG 3 ML AMPUL.NEB INHALE ×6 (00:29→22:38)
[2021-11-29] MEDS: methylPREDNISolone Sod Succ 125 MG/2 ML VIAL 60 MG IVPUSH ×2 (00:32→05:20)
[2021-11-29] MEDS: propofoL 1,000 MG/100 ML VIAL 41.28 MG IVCONT ×4 (00:32→07:18)
[2021-11-29] MEDS: dilTIAZem HCL 125 MG in 0.9 % Sodium Chloride 100 ML IVCONT (01:44)
[2021-11-29 05:09] LABS: VBG Base Excess 4.5 mmol/L; VBG HCO3 26 mmol/L (22-26); VBG pCO2 29 mmHg; VBG pH 7.55 (7.32-7.43); VBG pO2 47 mmHg
[2021-11-29 05:29] LABS: Venous Blood Gas Refer to POC result
[2021-11-29 05:50] LABS: Basophils Percent Auto 0.1 % (0-2); Hematocrit 27.9 % (37.0-47.0); Hemoglobin 8.6 g/dl (12.0-16.0); Imm Gran Pct Auto 0.8 % (0.0-0.4); Lymphocytes Absolute Auto 0.2 X10*3/uL (1.2-4.9); Lymphocytes Percent Auto 1.3 % (20-40); MANUAL DIFF FLAG SCAN; Mean Corpuscular HGB Conc 30.8 g/dl (31.0-35.0); Mean Platelet Volume 9.6 fL (9.4-12.3); Monocytes Absolute Auto 0.6 X10*3/uL (0.1-1.2); NRBC Pct Auto 0.8 /100WBC (0.0-0.2); Neutrophils Percent Auto 92.8 % (45-73); Platelet Count 313 X10*3/uL (160-400); Red Blood Count 4.53 X10*6/uL (4.20-5.50); Red Cell Distribution Width 19.9 % (11.0-16.0); SCAN SMEAR FLAG 1; White Blood Count 11.8 X10*3/uL (4.8-10.8)
[2021-11-29 06:00] LABS: Mean Corpuscular Volume 61.6 fL (80.0-98.0)
[2021-11-29 06:06] LABS: B Type Natriuretic Peptide 161 pg/mL (<100)
[2021-11-29 06:11] LABS: Anion Gap 13 (12-20); Blood Urea Nitrogen 33 mg/dL (9-16); Calcium 8.9 mg/dL (8.4-10.2); Carbon Dioxide 28 mmol/L (22-29); Chloride 92 mmol/L (96-108); Creatinine Clr Calc Pharmacy 88.5; Estimated Glomerular Filt Rate > 60; Glucose Random 271 mg/dL (60-115); Magnesium 2.1 mg/dL (1.6-2.6); Phosphorus 2.7 mg/dL (2.7-4.5); Potassium 4.7 mmol/L (3.3-5.1); Sodium 128 mmol/L (135-145)
[2021-11-29 06:18] LABS: SLIDE REVIEW VERIFIED
[2021-11-29] MEDS: Apixaban 5 MG TABLET PO (08:20)
[2021-11-29] MEDS: Chlorhexidine Gluc Oral Rinse 15 ML MOUTHWASH BUCCAL (08:20)
[2021-11-29] MEDS: 0.9 % Sodium Chloride Flush 3 ML SYRINGE IVFLUSH ×3 (08:20→20:36)
[2021-11-29] MEDS: Famotidine/PF 20 MG/2 ML VIAL IVPUSH (08:33)
[2021-11-29] MEDS: Racepinephrine HCL 0.5 ML VIAL.NEB INHALE (10:24)
[2021-11-29] MEDS: Digoxin 0.5 MG/2 ML AMPUL 0.25 MG IVPUSH (10:27)
[2021-11-29] MEDS: methylPREDNISolone Sod Succ 125 MG/2 ML VIAL 40 MG IVPUSH (11:21)
[2021-11-29] MEDS: dexmedeTOMIDidine HCL/NS 400 MCG/100 ML INFUS..BTL 34.4 MCG IVCONT ×3 (11:25→21:39)
[2021-11-29] MEDS: Amiodarone/Dextrose 150 MG/100 ML PLAST..BAG 600 MG IV (11:25)
--- NOTE | 2021-11-29 11:52 | PM.CCPN ---
Subjective Subjective Date of Service: 11/29/21 Interval History: 66-year-old lady with underlying alcoholic cirrhosis, dementia, chronic hypernatremia, chronic renal disease, schizoaffective disorder, asthma [facility] admitted with dyspnea likely secondary to CHF exacerbation on 11/25/2021. Treated with diuresis with improvement in her symptoms but with development of AFib with RVR, hospital course further complicated by development of angioedema on 11/27/2021 requiring intubation and transfer to intensive care unit. Treated with systemic glucocorticoids sent H2 blockers with significant improvement. Extubated on 11/29/2021. However, still with significant AFib with RVR. Critical Care Time (minutes): 45 Physical Exam Vital Signs: Vital Signs: Last Vital Signs Temp 99.3 F 11/29/21 11:00 Pulse 159 H 11/29/21 11:42 Resp 22 H 11/29/21 11:42 BP 99/78 11/29/21 11:00 Pulse Ox 92 11/29/21 11:00 BMI result Body Mass Index 48.9 Const: General: no acute distress, awake and other ( follows commands) Nutritional Appearance: obese Eyes: Sclerae: sclerae normal EOM: EOMs intact bilaterally Neck: Neck: Yes no lymphadenopathy, Yes trachea midline and Yes supple Resp: Effort & Inspection: normal respiratory effort and no respiratory distress Auscultation: crackles ( bibasilar) Cardio: Rate: tachycardic Rhythm: abnormal rhythm irregularly irregular Heart sounds: no gallops, no murmurs and no rubs GI: Palpation (GI): Soft to palpation and Other GI palpation findings present ( Nontender) Auscultation: normal bowel sounds Extrem: General: No clubbing, No cyanosis and Yes pedal edema ( 1+ bilateral) Objective Data Labs CBC & Chem 7: 11/29/21 05:02 11/29/21 05:02 Labs: Laboratory Results - last 24 hr 11/28/21 11/28/21 11/28/21 11:51 13:27 17:30 WBC RBC Hgb Hct MCV MCH MCHC RDW Plt Count MPV Immature Gran % (Auto) Neut % (Auto) Lymph % (Auto) [place] % (Auto) Eos % (Auto) Baso % (Auto) Lymph # (Auto) [place] # (Auto) Eos # (Auto) Baso # (Auto) Abs Immat Gran (auto) Absolute Neuts (auto) Absolute Nucleated RBC Nucleated RBC % (auto) Smear Tech's Comments VBG pH VBG pCO2 VBG pO2 VBG HCO3 VBG O2 Saturation VBG Base Excess Sodium Potassium Chloride Carbon Dioxide Anion Gap BUN Creatinine Estim Creat Clear Calc Estimated GFR POC Glucose 243 H 242 H Random Glucose Calcium Phosphorus Magnesium B-Natriuretic Peptide Ur Random Chloride < 20.0 11/28/21 11/29/21 11/29/21 18:09 05:02 05:02 WBC 11.8 H RBC 4.53 Hgb 8.6 L Hct 27.9 L MCV 61.6 L MCH 19.0 L MCHC 30.8 L RDW 19.9 H Plt Count 313 MPV 9.6 Immature Gran % (Auto) 0.8 H Neut % (Auto) 92.8 H Lymph % (Auto) 1.3 L [place] % (Auto) 5.0 Eos % (Auto) 0.0 Baso % (Auto) 0.1 Lymph # (Auto) 0.2 L [place] # (Auto) 0.6 Eos # (Auto) 0.0 Baso # (Auto) 0.0 Abs Immat Gran (auto) 0.10 H Absolute Neuts (auto) 11.0 H Absolute Nucleated RBC 0.090 H Nucleated RBC % (auto) 0.8 H Smear Tech's Comments VERIFIED VBG pH VBG pCO2 VBG pO2 VBG HCO3 VBG O2 Saturation VBG Base Excess Sodium 126 L 128 L Potassium 4.4 4.7 Chloride 88 L 92 L Carbon Dioxide 29 28 Anion Gap 13 13 BUN 36 H 33 H Creatinine 0.85 0.87 Estim Creat Clear Calc 90.6 88.5 Estimated GFR > 60 > 60 POC Glucose Random Glucose 282 H 271 H Calcium 9.0 8.9 Phosphorus 2.7 Magnesium 2.1 B-Natriuretic Peptide Ur Random Chloride 11/29/21 11/29/21 05:02 05:03 WBC RBC Hgb Hct MCV MCH MCHC RDW Plt Count MPV Immature Gran % (Auto) Neut % (Auto) Lymph % (Auto) [place] % (Auto) Eos % (Auto) Baso % (Auto) Lymph # (Auto) [place] # (Auto) Eos # (Auto) Baso # (Auto) Abs Immat Gran (auto) Absolute Neuts (auto) Absolute Nucleated RBC Nucleated RBC % (auto) Smear Tech's Comments VBG pH 7.55 H VBG pCO2 29 VBG pO2 47 VBG HCO3 26 VBG O2 Saturation 77.0 VBG Base Excess 4.5 Sodium Potassium Chloride Carbon Dioxide Anion Gap BUN Creatinine Estim Creat Clear Calc Estimated GFR POC Glucose Random Glucose Calcium Phosphorus Magnesium B-Natriuretic Peptide 161 H Ur Random Chloride Microbiology Microbiology Results: Microbiology 11/28/21 09:32 Sputum - Suctioned Gram Stain - Final 11/28/21 09:32 Sputum - Suctioned Sputum Culture - Preliminary Yeast 11/25/21 01:42 Blood - Venous Blood Culture - Preliminary No growth after 48 hours. 11/25/21 01:47 Blood - Venous Blood Culture - Preliminary No growth after 48 hours. Progress Note: A&P Assessment and plan (1) Atrial fibrillation with RVR: Status: Acute (2) Angioedema: Status: Acute (3) Chronic hyponatremia: Status: Acute (4) Alcoholic cirrhosis of liver: Status: Acute (5) CKD (chronic kidney disease): Status: Acute (6) Schizoaffective disorder: Status: Acute (7) Acute respiratory failure: Status: Acute Assessment and Plan: Assessment: 66-year-old lady with underlying alcoholic cirrhosis, dementia, schizoaffective disorder a admitted with acute exacerbation of underlying congestive heart failure further complicated by AFib with RVR, and development of angioedema requiring intubation for ventilatory support, extubated 09/29/2022 Plan: Neuro: No acute issues. Cardiac: AFib with RVR, continue with amiodarone, calcium channel geovanny, and digoxin. Continue with diuresis. Pulmonary: Acute respiratory failure secondary to angioedema requiring intubation and ventilatory support for airway protection, intubated this a.m.. Continue to titrate off supplemental oxygen as tolerated. Renal: No acute issues. Chronic hyponatremia. Endo: No acute issues. GI: No acute issues. ID: No acute issues Heme/Onc: No acute issues. Psych: No acute issues. Underlying schizoaffective disorder, continue haldol. Miscellaneous: No acute issues. Prophylaxis: apixaban Diet: pending swallow evaluation Critical care time spent: 45 minutes Quality Stroke Does the patient have a stroke diagnosis?: No VTE Prior VTE?: No VTE Risk Level:: Medical - moderate - high VTE Device Contraindication: Treatment Not Indicated VTE Drug Contraindication: N/A - Med Ordered
[2021-11-29] MEDS: dilTIAZem HCL 125 MG in 0.9 % Sodium Chloride 100 ML 15 MG IVCONT (12:16)
[2021-11-29] MEDS: Amiodarone HCL 900 MG in 0.9 % Sodium Chloride 500 ML 34.53 MG IVCONT (12:16)
--- NOTE | 2021-11-29 13:26 | MHC.CM.PN ---
Pt extubated today and continues with high rate Afib - on amiodorone gtt. Pt is a [facility] resident from [facility] - clincial updates sent: message left for pt's guardian re: d/c plan
[2021-11-29] MEDS: Nystatin Powder 15 GM BOTTLE 1 APPL TOPICAL ×2 (15:00→20:36)
--- NOTE | 2021-11-29 16:38 | PC.NURSE ---
patient awake alert follows simple commands. On precidex gtt. Lungs wheezes throughout on venti mask 55% sao2 95% no distress noted. HR afib rates 70-80's on amioderone gtt. skin has fungal rash abd folds and breast nystatin ordered. mehta patent 5cc/hr dark parvez urine. continue to moniotr.
--- NOTE | 2021-11-29 18:19 | P.PNNP_ITS ---
Subjective Subjective Date of Service: 12/16/21 Interval history: 66-year-old lady with underlying alcoholic cirrhosis, dementia, chronic hypernatremia, chronic renal disease, schizoaffective disorder, In ICU intubated Physical Exam 2 Verdana 4l Vital Signs: Verdana 4d Verdana 4d Vital Signs: Verdana 4d Verdana 4Bd Last Vital Signs Verdana 4d Permit Agent New 4d Permit Agent New 4d Temp 99.3 F 11/29/21 11:00 Permit Agent New 4d Pulse 80 11/29/21 17:27 Permit Agent New 4d Resp 26 H 11/29/21 17:27 BP 93/65 11/29/21 17:27 Pulse Ox 97 11/29/21 17:27 BMI result Body Mass Index 48.9 Const: Other: Intubated General: cooperative and no acute distress Orientation/consciousness: patient oriented x3 Eyes: General: appearance normal, both eyes and all related structures Pupils: Equal, round and reactive pupils present Resp: Effort & Inspection: normal respiratory effort Auscultation: clear to auscultation bilaterally Cardio: Rate: regular rate Rhythm: regular rhythm GI: Other: no tenderness, no rebound or guarding Palpation (GI): Soft to palpation Auscultation: normal bowel sounds Skin: General skin exam: no rashes or lesions noted Neuro: General: patient oriented x3 Cranial nerves: Yes Equal, round and reactive pupils present Cognition (Neuro): normal cognition Extrem: Other: 1+ pitting edema General: Yes normal to inspection and Yes no pedal edema Objective Data Labs CBC & Chem 7: 12/16/21 06:09 12/16/21 06:09 Labs: Laboratory Results - last 24 hr 11/28/21 11/28/21 11/29/21 13:27 18:09 05:02 WBC 11.8 H RBC 4.53 Hgb 8.6 L Hct 27.9 L MCV 61.6 L MCH 19.0 L MCHC 30.8 L RDW 19.9 H Plt Count 313 MPV 9.6 Immature Gran % (Auto) 0.8 H Neut % (Auto) 92.8 H Lymph % (Auto) 1.3 L [place] % (Auto) 5.0 Eos % (Auto) 0.0 Baso % (Auto) 0.1 Lymph # (Auto) 0.2 L [place] # (Auto) 0.6 Eos # (Auto) 0.0 Baso # (Auto) 0.0 Abs Immat Gran (auto) 0.10 H Absolute Neuts (auto) 11.0 H Absolute Nucleated RBC 0.090 H Nucleated RBC % (auto) 0.8 H Smear Tech's Comments VERIFIED VBG pH VBG pCO2 VBG pO2 VBG HCO3 VBG O2 Saturation VBG Base Excess Sodium 126 L Potassium 4.4 Chloride 88 L Carbon Dioxide 29 Anion Gap 13 BUN 36 H Creatinine 0.85 Estim Creat Clear Calc 90.6 Estimated GFR > 60 Random Glucose 282 H Calcium 9.0 Phosphorus Magnesium B-Natriuretic Peptide Ur Random Chloride < 20.0 11/29/21 11/29/21 11/29/21 05:02 05:02 05:03 WBC RBC Hgb Hct MCV MCH MCHC RDW Plt Count MPV Immature Gran % (Auto) Neut % (Auto) Lymph % (Auto) [place] % (Auto) Eos % (Auto) Baso % (Auto) Lymph # (Auto) [place] # (Auto) Eos # (Auto) Baso # (Auto) Abs Immat Gran (auto) Absolute Neuts (auto) Absolute Nucleated RBC Nucleated RBC % (auto) Smear Tech's Comments VBG pH 7.55 H VBG pCO2 29 VBG pO2 47 VBG HCO3 26 VBG O2 Saturation 77.0 VBG Base Excess 4.5 Sodium 128 L Potassium 4.7 Chloride 92 L Carbon Dioxide 28 Anion Gap 13 BUN 33 H Creatinine 0.87 Estim Creat Clear Calc 88.5 Estimated GFR > 60 Random Glucose 271 H Calcium 8.9 Phosphorus 2.7 Magnesium 2.1 B-Natriuretic Peptide 161 H Ur Random Chloride Microbiology Microbiology Results: Microbiology 11/28/21 09:32 Sputum - Suctioned Gram Stain - Final 11/28/21 09:32 Sputum - Suctioned Sputum Culture - Preliminary Yeast 11/25/21 01:42 Blood - Venous Blood Culture - Preliminary No growth after 48 hours. 11/25/21 01:47 Blood - Venous Blood Culture - Preliminary No growth after 48 hours. Procedures Date of Service Date of Service: 12/30/21 Assessment & Plan Assessment and plan (1) Atrial fibrillation with RVR: Status: Acute (2) Hyponatremia: Status: Acute (3) Acute hyperkalemia: Status: Acute (4) Dyspnea: Status: Acute (5) Acute anaphylaxis: Status: Acute Plan 66-year-old female with past medical history of alcoholic liver cirrhosis, dementia, hyponatremia presents to the hospital with AFib with RVR Chronic hyponatremia Most likely has euvolemic hyponatremia Keep PO water restriction Na remains stable. Hyperkalemia due to decreased K excretion K has normalized Low Jeancarlos sugestive of hypoperfusion cortisol 19 Suggest Restrict PO water intake to 1 L per 24 hrs Goal pNa > 130 If pNA stays below 125, can add few doses of Urea powder. Kayexalate PRN if K > 5.2 Time Spent With Patient Time: Total time spent is greater than 50% in coordination of care (as documented) at patient's floor/unit and/or counseling patient: Time with patient: 15 - 24 minutes Progress Note: Quality Stroke Does the patient have a stroke diagnosis?: No
[2021-11-29] MEDS: dexmedeTOMIDidine HCL/NS 400 MCG/100 ML INFUS..BTL 24.08 MCG IVCONT (18:38)
[2021-11-29] MEDS: Haloperidol Lactate 5 MG/ML VIAL IV (20:07)
[2021-11-29] MEDS: LORazepam 2 MG/ML VIAL 1 MG IVPUSH (20:07)
[2021-11-30] VITALS (35 sets, daily range): BP systolic 101–153; BP diastolic 58–87; PULSE 65–153; RESP 14–155; TEMP 36.5–38.2; O2SAT 9–100
[2021-11-30] MEDS: dexmedeTOMIDidine HCL/NS 400 MCG/100 ML INFUS..BTL 41.28 MCG IVCONT (00:18)
[2021-11-30] MEDS: Albuterol/Iprat 2.5/0.5MG 3 ML AMPUL.NEB INHALE ×6 (00:46→20:27)
[2021-11-30] MEDS: LORazepam 2 MG/ML VIAL 1 MG IVPUSH ×4 (00:58→20:30)
[2021-11-30] MEDS: dexmedeTOMIDidine HCL/NS 400 MCG/100 ML INFUS..BTL 51.6 MCG IVCONT ×5 (02:23→14:46)
[2021-11-30 06:03] LABS: Venous Blood Gas Refer to POC result
[2021-11-30 06:03] LABS: VBG Base Excess 3.7 mmol/L; VBG HCO3 28 mmol/L (22-26); VBG pCO2 45 mmHg; VBG pO2 49 mmHg
[2021-11-30 06:16] LABS: Albumin Level 3.4 g/dL (3.5-5.0); Anion Gap 13 (12-20); Blood Urea Nitrogen 43 mg/dL (9-16); Calcium 8.7 mg/dL (8.4-10.2); Carbon Dioxide 30 mmol/L (22-29); Chloride 93 mmol/L (96-108); Creatinine Clr Calc Pharmacy 65.2; Estimated Glomerular Filt Rate 46; Magnesium 2.3 mg/dL (1.6-2.6); Phosphorus 3.8 mg/dL (2.7-4.5); Potassium 5.6 mmol/L (3.3-5.1); Sodium 130 mmol/L (135-145)
[2021-11-30 06:18] LABS: Glucose Random 358 mg/dL (60-115)
[2021-11-30 06:19] LABS: Basophils Percent Auto 0.1 % (0-2); Hematocrit 31.4 % (37.0-47.0); Hemoglobin 9.2 g/dl (12.0-16.0); Imm Gran Abs Auto 0.12 X10*3/uL (0.00-0.03); Imm Gran Pct Auto 0.9 % (0.0-0.4); Lymphocytes Absolute Auto 0.3 X10*3/uL (1.2-4.9); MANUAL DIFF FLAG SCAN; Mean Corpuscular HGB Conc 29.3 g/dl (31.0-35.0); Mean Corpuscular Hemoglobin 18.7 pg (27.0-33.0); Mean Platelet Volume 9.7 fL (9.4-12.3); Monocytes Absolute Auto 0.9 X10*3/uL (0.1-1.2); Monocytes Percent Auto 6.7 % (2-11); NRBC Pct Auto 0.3 /100WBC (0.0-0.2); Neutrophils Absolute Auto 12.3 x10*3/uL (2.0-8.3); Neutrophils Percent Auto 90.3 % (45-73); Platelet Count 295 X10*3/uL (160-400); Red Blood Count 4.91 X10*6/uL (4.20-5.50); Red Cell Distribution Width 20.5 % (11.0-16.0); SCAN SMEAR FLAG 1; White Blood Count 13.7 X10*3/uL (4.8-10.8)
[2021-11-30 06:54] LABS: SLIDE REVIEW VERIFIED
[2021-11-30] MEDS: Furosemide 40 MG/4 ML VIAL IVPUSH (08:23)
[2021-11-30] MEDS: Haloperidol Lactate 5 MG/ML VIAL 10 MG IVPUSH (08:23)
[2021-11-30] MEDS: 0.9 % Sodium Chloride Flush 3 ML SYRINGE IVFLUSH ×2 (08:23→14:48)
--- NOTE | 2021-11-30 09:09 | P.CDIC_ITS ---
CDI Concurrent Query Documentation Clarification: PHYSICIAN'S DOCUMENTATION REQUEST Date of Query: 11/30/21 0909 Patient Name: Valentine Reddy Admit Date: 11/25/21 Dear Doctor, A review of the medical record indicates additional documentation may be needed. Please review below and update the documentation accordingly. Risk Factors/Clinical Indicators/Treatments H&P: 11/25- Dyspnea possibly 2/2 CHF leg swelling, edema BNP 78 170 161 Lasix ICU note 11/29- admitted with dyspnea likely secondary to CHF exacerbation on 11/25. Please provide further specificity regarding the most likely type and acuity of CHF you are evaluating, treating, or monitoring. Examples include: Type: * Systolic * Diastolic * Combined Systolic/Diastolic * Other ? please specify * Unable to determine Acuity: * Acute * Chronic * Acute on chronic * Unable to determine Use of terms such as suspected, likely, concern for, or probable (associated with a specific diagnosis that is being evaluated, monitored, or treated as if it exists) are acceptable and can be coded in the inpatient setting, when documented at the time of discharge. Thank you, Claudia Franklin [facility], [facility] Extension: [phone] Please use your independent medical judgment in providing your response. THIS QUERY IS PART OF THE PERMANENT MEDICAL RECORD Provider Response: Acute-Chronic Diastolic CHF
[2021-11-30] MEDS: Lactulose 20 GM/30 ML SOLUTION 30 GM PO (09:40)
[2021-11-30] MEDS: Nystatin Powder 15 GM BOTTLE 1 APPL TOPICAL ×3 (09:44→20:32)
--- NOTE | 2021-11-30 10:37 | PM.PNNEP ---
Subjective Subjective Date of Service: 11/30/21 Interval history: 66-year-old lady with underlying alcoholic cirrhosis, dementia noted hypoNa and hyperK Physical Exam Vital Signs: Vital Signs: Last Vital Signs Temp 99.0 F 11/30/21 10:00 Pulse 84 11/30/21 10:00 Resp 17 11/30/21 10:00 BP 133/70 11/30/21 10:00 Pulse Ox 95 11/30/21 10:00 BMI result Body Mass Index 48.9 Const: Other: Intubated General: cooperative and no acute distress Orientation/consciousness: patient oriented x3 Eyes: General: appearance normal, both eyes and all related structures Pupils: Equal, round and reactive pupils present Resp: Effort & Inspection: normal respiratory effort Auscultation: clear to auscultation bilaterally Cardio: Rate: regular rate Rhythm: regular rhythm GI: Other: no tenderness, no rebound or guarding Palpation (GI): Soft to palpation Auscultation: normal bowel sounds Skin: General skin exam: no rashes or lesions noted Neuro: General: patient oriented x3 Cranial nerves: Yes Equal, round and reactive pupils present Cognition (Neuro): normal cognition Extrem: Other: 1+ pitting edema General: Yes normal to inspection and Yes no pedal edema Objective Data Labs CBC & Chem 7: 11/30/21 05:46 11/30/21 05:46 Labs: Laboratory Results - last 24 hr 11/30/21 11/30/21 11/30/21 05:46 05:46 05:57 WBC 13.7 H RBC 4.91 Hgb 9.2 L Hct 31.4 L MCV 64.0 L MCH 18.7 L MCHC 29.3 L RDW 20.5 H Plt Count 295 MPV 9.7 Immature Gran % (Auto) 0.9 H Neut % (Auto) 90.3 H Lymph % (Auto) 2.0 L [place] % (Auto) 6.7 Eos % (Auto) 0.0 Baso % (Auto) 0.1 Lymph # (Auto) 0.3 L [place] # (Auto) 0.9 Eos # (Auto) 0.0 Baso # (Auto) 0.0 Abs Immat Gran (auto) 0.12 H Absolute Neuts (auto) 12.3 H Absolute Nucleated RBC 0.040 H Nucleated RBC % (auto) 0.3 H Smear Tech's Comments VERIFIED VBG pH 7.40 VBG pCO2 45 VBG pO2 49 VBG HCO3 28 H VBG O2 Saturation 73.0 VBG Base Excess 3.7 Sodium 130 L Potassium 5.6 H Chloride 93 L Carbon Dioxide 30 H Anion Gap 13 BUN 43 H Creatinine 1.18 Estim Creat Clear Calc 65.2 Estimated GFR 46 Random Glucose 358 H* Calcium 8.7 Phosphorus 3.8 Magnesium 2.3 Albumin 3.4 L Microbiology Microbiology Results: Microbiology 11/28/21 09:32 Sputum - Suctioned Gram Stain - Final 11/28/21 09:32 Sputum - Suctioned Sputum Culture - Preliminary Yeast 11/25/21 01:47 Blood - Venous Blood Culture - Final No growth after 5 days. 11/25/21 01:42 Blood - Venous Blood Culture - Final No growth after 5 days. Procedures Date of Service Date of Service: 11/30/21 Assessment & Plan Assessment and plan (1) Atrial fibrillation with RVR: Status: Acute (2) Hyponatremia: Status: Acute (3) Acute hyperkalemia: Status: Acute (4) Dyspnea: Status: Acute (5) Acute anaphylaxis: Status: Acute Assessment and Plan: 66-year-old female with past medical history of alcoholic liver cirrhosis, dementia, hyponatremia presents to the hospital with AFib with RVR 1. HypoNA: SNa cont to incr gradually; ? h/o chronic hyponatremia 2. HyperK: recurred this am; multifact 3. Resp Failure: angioedema req intubation REC: recejhck K and if cont > 5.3 then give lokelma; track SNa and K level Time Spent With Patient Time: Total time spent is greater than 50% in coordination of care (as documented) at patient's floor/unit and/or counseling patient: Progress Note: Quality Stroke Does the patient have a stroke diagnosis?: No
--- NOTE | 2021-11-30 11:21 | MHC.CLN ---
F/U PT EXTUBATED; NOW ON BIPAP DIET RX: F/L-APPROPRIATE PT WITH INCREASED NUTRITION RISK R/T FRAGILE SKIN MONITOR PO INTAKE CLOSELY IF PO POOR; ADD GLUCERNA BID FOLLOWING
[2021-11-30] MEDS: dexmedeTOMIDidine HCL/NS 400 MCG/100 ML INFUS..BTL 27.52 MCG IVCONT (12:12)
[2021-11-30 12:43] LABS: Anion Gap 14 (12-20); Blood Urea Nitrogen 41 mg/dL (9-16); Calcium 8.7 mg/dL (8.4-10.2); Carbon Dioxide 30 mmol/L (22-29); Chloride 93 mmol/L (96-108); Creatinine Clr Calc Pharmacy 66.4; Estimated Glomerular Filt Rate 46; Glucose Random 351 mg/dL (60-115); Potassium 5.1 mmol/L (3.3-5.1); Sodium 132 mmol/L (135-145)
[2021-11-30] MEDS: Amiodarone HCL 900 MG in 0.9 % Sodium Chloride 500 ML 34.53 MG IVCONT (13:15)
[2021-11-30] MEDS: Insulin Lispro 100 UNIT/ML 3 ML VIAL SUBCUT ×2 (13:20→16:50)
--- NOTE | 2021-11-30 13:39 | PM.CCPN ---
Subjective Subjective Date of Service: 11/30/21 Interval History: 66-year-old lady with underlying alcoholic cirrhosis, dementia, chronic hypernatremia, chronic renal disease, schizoaffective disorder, asthma resident of residential facility admitted with dyspnea likely secondary to CHF exacerbation on 11/25/2021. Treated with diuresis with improvement in her symptoms but with development of AFib with RVR, hospital course further complicated by development of angioedema on 11/27/2021 requiring intubation and transfer to intensive care unit. Treated with systemic glucocorticoids sent H2 blockers with significant improvement. Extubated on 11/29/2021. However, still with significant AFib with RVR requiring amiodarone drip and with significant encephalopathy, likely related to underlying suboptimally controlled schizoaffective disorder. Continues to require Precedex and amiodarone drips. Critical Care Time (minutes): 45 Physical Exam Vital Signs: Vital Signs: Last Vital Signs Temp 99.5 F 11/30/21 13:00 Pulse 100 11/30/21 13:00 Resp 27 H 11/30/21 13:00 BP 103/66 11/30/21 13:00 Pulse Ox 97 11/30/21 13:00 BMI result Body Mass Index 48.9 Const: General: no acute distress and other ( somnolent, arousable to painful stimuli, does not follow commands) Nutritional Appearance: obese Eyes: Sclerae: sclerae normal EOM: EOMs intact bilaterally Neck: Neck: Yes no lymphadenopathy, Yes trachea midline and Yes supple Resp: Effort & Inspection: normal respiratory effort and no respiratory distress Auscultation: clear to auscultation bilaterally Cardio: Rate: regular rate Rhythm: regular rhythm Heart sounds: no gallops, no murmurs and no rubs GI: Palpation (GI): Soft to palpation and Other GI palpation findings present ( Nontender) Auscultation: normal bowel sounds Extrem: General: No clubbing, No cyanosis and Yes pedal edema ( 1+ bilateral) Objective Data Labs CBC & Chem 7: 11/30/21 05:46 11/30/21 12:15 Labs: Laboratory Results - last 24 hr 11/30/21 11/30/21 11/30/21 05:46 05:46 05:57 WBC 13.7 H RBC 4.91 Hgb 9.2 L Hct 31.4 L MCV 64.0 L MCH 18.7 L MCHC 29.3 L RDW 20.5 H Plt Count 295 MPV 9.7 Immature Gran % (Auto) 0.9 H Neut % (Auto) 90.3 H Lymph % (Auto) 2.0 L [place] % (Auto) 6.7 Eos % (Auto) 0.0 Baso % (Auto) 0.1 Lymph # (Auto) 0.3 L [place] # (Auto) 0.9 Eos # (Auto) 0.0 Baso # (Auto) 0.0 Abs Immat Gran (auto) 0.12 H Absolute Neuts (auto) 12.3 H Absolute Nucleated RBC 0.040 H Nucleated RBC % (auto) 0.3 H Smear Tech's Comments VERIFIED VBG pH 7.40 VBG pCO2 45 VBG pO2 49 VBG HCO3 28 H VBG O2 Saturation 73.0 VBG Base Excess 3.7 Sodium 130 L Potassium 5.6 H Chloride 93 L Carbon Dioxide 30 H Anion Gap 13 BUN 43 H Creatinine 1.18 Estim Creat Clear Calc 65.2 Estimated GFR 46 Random Glucose 358 H* Calcium 8.7 Phosphorus 3.8 Magnesium 2.3 Albumin 3.4 L 11/30/21 12:15 WBC RBC Hgb Hct MCV MCH MCHC RDW Plt Count MPV Immature Gran % (Auto) Neut % (Auto) Lymph % (Auto) [place] % (Auto) Eos % (Auto) Baso % (Auto) Lymph # (Auto) [place] # (Auto) Eos # (Auto) Baso # (Auto) Abs Immat Gran (auto) Absolute Neuts (auto) Absolute Nucleated RBC Nucleated RBC % (auto) Smear Tech's Comments VBG pH VBG pCO2 VBG pO2 VBG HCO3 VBG O2 Saturation VBG Base Excess Sodium 132 L Potassium 5.1 Chloride 93 L Carbon Dioxide 30 H Anion Gap 14 BUN 41 H Creatinine 1.16 Estim Creat Clear Calc 66.4 Estimated GFR 46 Random Glucose 351 H* Calcium 8.7 Phosphorus Magnesium Albumin Microbiology Microbiology Results: Microbiology 11/28/21 09:32 Sputum - Suctioned Gram Stain - Final 11/28/21 09:32 Sputum - Suctioned Sputum Culture - Preliminary Yeast 11/25/21 01:47 Blood - Venous Blood Culture - Final No growth after 5 days. 11/25/21 01:42 Blood - Venous Blood Culture - Final No growth after 5 days. Progress Note: A&P Assessment and plan (1) Acute respiratory failure: Status: Acute (2) Schizoaffective disorder: Status: Acute (3) Alcoholic cirrhosis of liver: Status: Acute (4) Angioedema: Status: Acute (5) Atrial fibrillation with RVR: Status: Acute (6) Acute encephalopathy: Status: Acute Assessment and Plan: Assessment: 66-year-old lady with underlying alcoholic cirrhosis, dementia, schizoaffective disorder a admitted with acute exacerbation of underlying congestive heart failure further complicated by AFib with RVR, and development of angioedema requiring intubation for ventilatory support, extubated 09/29/2022 Plan: Neuro: Encephalopathy, I the acute metabolic or related to underlying schizoaffective disorder. Continues to require Precedex drip. Continue to titrate off as tolerated. Cardiac: AFib with RVR, continue with amiodarone. underlying acute on chronic diastolic congestive heart failure improving with diuresis. Pulmonary: Acute respiratory failure secondary to angioedema requiring intubation and ventilatory support for airway protection, extubated 11/29/2021. Continue to titrate off supplemental oxygen as tolerated. Renal: No acute issues. Chronic hyponatremia , improving. Endo: No acute issues. GI: No acute issues. ID: No acute issues Heme/Onc: No acute issues. Psych: No acute issues. Underlying schizoaffective disorder, continue haldol. Miscellaneous: No acute issues. Prophylaxis: apixaban Diet: pending swallow evaluation Critical care time spent: 45 minutes Quality Stroke Does the patient have a stroke diagnosis?: No VTE Prior VTE?: No VTE Risk Level:: Medical - moderate - high VTE Device Contraindication: Treatment Not Indicated VTE Drug Contraindication: N/A - Med Ordered
[2021-11-30] MEDS: Insulin Glargine,Hum.rec.anlog 100 UNIT/ML 10 ML VIAL 20 UNIT SUBCUT (14:00)
[2021-11-30 14:08] LABS: Ammonia 29 umol/L (13-55)
[2021-11-30 16:46] LABS: Glucose, Whole Blood 260 mg/dL (60-115)
[2021-11-30] MEDS: fentaNYL citrate/PF 100 MCG/2 ML VIAL 50 MCG IVPUSH ×2 (19:36→22:26)
[2021-11-30 19:54] LABS: Glucose, Whole Blood 175 mg/dL (60-115)
[2021-11-30] MEDS: Digoxin 0.5 MG/2 ML AMPUL 0.125 MG IVPUSH (20:28)
[2021-11-30] MEDS: Digoxin 0.5 MG/2 ML AMPUL 0.25 MG IVPUSH (22:24)
[2021-12-01] VITALS (30 sets, daily range): BP systolic 99–182; BP diastolic 58–98; PULSE 112–177; RESP 20–48; TEMP 36.3–37.9; O2SAT 88–95
[2021-12-01] MEDS: fentaNYL citrate/PF 100 MCG/2 ML VIAL 50 MCG IVPUSH ×3 (01:27→19:26)
[2021-12-01] MEDS: dilTIAZem HCL 50 MG/10 ML VIAL 10 MG IVPUSH (02:04)
[2021-12-01] MEDS: Amiodarone HCL 900 MG in 0.9 % Sodium Chloride 500 ML 34.53 MG IVCONT ×2 (04:54→19:28)
--- NOTE | 2021-12-01 05:32 | PC.NURSE ---
Pt alert but lethargic, moans- unable to assess orientation, does not follow commands. Afib on tele, HR 120-170s- on amiodarone gtt per emar, given 10 mg IVP cardizem, 0.125mg and 0.25mg IVP digoxin, all with no effect on HR- MOOSE HUNTER aware. Tolerated BiPAP overnight, currently on 26/06/28%, RR 30-40s, new order for 50 mcg IVP fentanyl with some effect. Arias in place, UOP approx 50 ml/hr. Skin- fungal to folds, and bruising throughout. Repositioned as tolerated.
[2021-12-01 05:34] LABS: VBG Base Excess 7.9 mmol/L; VBG HCO3 33 mmol/L (22-26); VBG pCO2 51 mmHg; VBG pH 7.41 (7.32-7.43); VBG pO2 55 mmHg
[2021-12-01 05:37] LABS: Venous Blood Gas Refer to POC result
[2021-12-01 05:42] LABS: Basophils Percent Auto 0.1 % (0-2); Eosinophils Percent Auto 0.1 % (0-4); Hematocrit 32.9 % (37.0-47.0); Hemoglobin 9.5 g/dl (12.0-16.0); Imm Gran Abs Auto 0.16 X10*3/uL (0.00-0.03); Imm Gran Pct Auto 0.8 % (0.0-0.4); Lymphocytes Percent Auto 5.1 % (20-40); MANUAL DIFF FLAG SCAN; Mean Corpuscular HGB Conc 28.9 g/dl (31.0-35.0); Mean Corpuscular Hemoglobin 18.7 pg (27.0-33.0); Mean Platelet Volume 9.1 fL (9.4-12.3); Monocytes Absolute Auto 2.1 X10*3/uL (0.1-1.2); Monocytes Percent Auto 10.2 % (2-11); NRBC Pct Auto 0.4 /100WBC (0.0-0.2); Neutrophils Absolute Auto 16.8 x10*3/uL (2.0-8.3); Neutrophils Percent Auto 83.7 % (45-73); Platelet Count 325 X10*3/uL (160-400); Red Blood Count 5.09 X10*6/uL (4.20-5.50); Red Cell Distribution Width 20.2 % (11.0-16.0); SCAN SMEAR FLAG 1; White Blood Count 20.1 X10*3/uL (4.8-10.8)
[2021-12-01 05:52] LABS: Alanine Aminotransferase 31 U/L (0-31); Albumin Level 3.7 g/dL (3.5-5.0); Alkaline Phosphatase 81 U/L (39-117); Anion Gap 14 (12-20); Aspartate Amino Transferase 32 U/L (5-31); Blood Urea Nitrogen 32 mg/dL (9-16); Calcium 8.9 mg/dL (8.4-10.2); Carbon Dioxide 31 mmol/L (22-29); Chloride 98 mmol/L (96-108); Estimated Glomerular Filt Rate > 60; Glucose Random 110 mg/dL (60-115); Magnesium 2.2 mg/dL (1.6-2.6); Mean Corpuscular Volume 64.6 fL (80.0-98.0); Potassium 4.6 mmol/L (3.3-5.1); Sodium 138 mmol/L (135-145); Total Protein 6.4 g/dL (6.5-8.0)
[2021-12-01 06:28] LABS: SLIDE REVIEW VERIFIED
[2021-12-01] MEDS: 0.9 % Sodium Chloride Flush 3 ML SYRINGE IVFLUSH ×2 (07:29→15:12)
[2021-12-01 07:33] LABS: Glucose, Whole Blood 119 mg/dL (60-115)
[2021-12-01] MEDS: modafiniL 100 MG TABLET 200 MG PO (09:19)
[2021-12-01] MEDS: Insulin Glargine,Hum.rec.anlog 100 UNIT/ML 10 ML VIAL 20 UNIT SUBCUT (10:12)
[2021-12-01] MEDS: Nystatin Powder 15 GM BOTTLE 1 APPL TOPICAL ×3 (10:13→19:32)
--- NOTE | 2021-12-01 10:47 | MHC.CLN ---
F/U PT REMAINS ON BIPAP DISCUSSED AT ROUNDS DIET RX: F/L PT NOT ABLE TO TAKE PO AT THIS TIME DAY 5 OF POOR PO; NOTED ALBUMIN 3.7 CONSIDER PRE-ALBUMIN LEVEL TO MONITOR NUTRITION STATUS MAY NEED PPN FOLLOWING WITH TEAM
[2021-12-01] MEDS: dilTIAZem HCL 125 MG in 0.9 % Sodium Chloride 100 ML IVCONT (11:01)
[2021-12-01 11:48] LABS: Glucose, Whole Blood 150 mg/dL (60-115)
--- NOTE | 2021-12-01 13:17 | P.PNCC_ITS ---
Subjective Subjective Date of Service: 12/01/21 Interval History: 66-year-old lady with underlying alcoholic cirrhosis, dementia, chronic hypernatremia, chronic renal disease, schizoaffective disorder, asthma resident of [facility] facility admitted with dyspnea likely secondary to CHF exacerbation on 11/25/2021. Treated with diuresis with improvement in her symptoms but with development of AFib with RVR, hospital course further complicated by development of angioedema on 11/27/2021 requiring intubation and transfer to intensive care unit. Treated with systemic glucocorticoids sent H2 blockers with significant improvement. Extubated on 11/29/2021. However, still with significant AFib with RVR requiring amiodarone drip and with significant encephalopathy, likely related to underlying suboptimally controlled schizoaffective disorder. No events overnight. In and out AFib with RVR. Mental status improved, however still significantly lethargic. Critical Care Time (minutes): 45 Physical Exam Vital Signs: Vital Signs: Last Vital Signs Temp 135 F H 12/01/21 13:00 Pulse 140 H 12/01/21 13:00 Resp 26 H 12/01/21 13:00 BP 162/81 H 12/01/21 13:00 Pulse Ox 91 L 12/01/21 13:00 BMI result Body Mass Index 48.9 Const: General: no acute distress and lethargic (But follows commands) Orientation/consciousness: lethargic (But follows commands) Eyes: Sclerae: sclerae normal EOM: EOMs intact bilaterally Neck: Neck: Yes no lymphadenopathy, Yes trachea midline and Yes supple Resp: Effort & Inspection: normal respiratory effort and no respiratory distress Auscultation: crackles (Bibasilar) Cardio: Rate: tachycardic Rhythm: abnormal rhythm irregularly irregular Heart sounds: no gallops, no murmurs and no rubs GI: Palpation (GI): Soft to palpation and Other GI palpation findings present ( Nontender) Auscultation: normal bowel sounds Extrem: General: No clubbing, No cyanosis and Yes pedal edema (1+ bilateral) Objective Data Labs CBC & Chem 7: 12/01/21 05:15 12/01/21 05:15 Labs: Laboratory Results - last 24 hr 11/30/21 11/30/21 11/30/21 13:50 16:43 19:50 WBC RBC Hgb Hct MCV MCH MCHC RDW Plt Count MPV Immature Gran % (Auto) Neut % (Auto) Lymph % (Auto) [place] % (Auto) Eos % (Auto) Baso % (Auto) Lymph # (Auto) [place] # (Auto) Eos # (Auto) Baso # (Auto) Abs Immat Gran (auto) Absolute Neuts (auto) Absolute Nucleated RBC Nucleated RBC % (auto) Smear Tech's Comments VBG pH VBG pCO2 VBG pO2 VBG HCO3 VBG O2 Saturation VBG Base Excess Sodium Potassium Chloride Carbon Dioxide Anion Gap BUN Creatinine Estim Creat Clear Calc Estimated GFR POC Glucose 260 H 175 H Random Glucose Calcium Phosphorus Magnesium Total Bilirubin AST ALT Alkaline Phosphatase Ammonia 29 Total Protein Albumin 12/01/21 12/01/21 12/01/21 05:15 05:15 05:29 WBC 20.1 H RBC 5.09 Hgb 9.5 L Hct 32.9 L MCV 64.6 L MCH 18.7 L MCHC 28.9 L RDW 20.2 H Plt Count 325 MPV 9.1 L Immature Gran % (Auto) 0.8 H Neut % (Auto) 83.7 H Lymph % (Auto) 5.1 L [place] % (Auto) 10.2 Eos % (Auto) 0.1 Baso % (Auto) 0.1 Lymph # (Auto) 1.0 L [place] # (Auto) 2.1 H Eos # (Auto) 0.0 Baso # (Auto) 0.0 Abs Immat Gran (auto) 0.16 H Absolute Neuts (auto) 16.8 H Absolute Nucleated RBC 0.090 H Nucleated RBC % (auto) 0.4 H Smear Tech's Comments VERIFIED VBG pH 7.41 VBG pCO2 51 VBG pO2 55 VBG HCO3 33 H VBG O2 Saturation 81.0 VBG Base Excess 7.9 Sodium 138 Potassium 4.6 Chloride 98 Carbon Dioxide 31 H Anion Gap 14 BUN 32 H Creatinine 0.81 Estim Creat Clear Calc 95.0 Estimated GFR > 60 POC Glucose Random Glucose 110 Calcium 8.9 Phosphorus 3.0 Magnesium 2.2 Total Bilirubin 1.0 AST 32 H ALT 31 Alkaline Phosphatase 81 Ammonia Total Protein 6.4 L Albumin 3.7 12/01/21 12/01/21 07:29 11:39 WBC RBC Hgb Hct MCV MCH MCHC RDW Plt Count MPV Immature Gran % (Auto) Neut % (Auto) Lymph % (Auto) [place] % (Auto) Eos % (Auto) Baso % (Auto) Lymph # (Auto) [place] # (Auto) Eos # (Auto) Baso # (Auto) Abs Immat Gran (auto) Absolute Neuts (auto) Absolute Nucleated RBC Nucleated RBC % (auto) Smear Tech's Comments VBG pH VBG pCO2 VBG pO2 VBG HCO3 VBG O2 Saturation VBG Base Excess Sodium Potassium Chloride Carbon Dioxide Anion Gap BUN Creatinine Estim Creat Clear Calc Estimated GFR POC Glucose 119 H 150 H Random Glucose Calcium Phosphorus Magnesium Total Bilirubin AST ALT Alkaline Phosphatase Ammonia Total Protein Albumin Microbiology Microbiology Results: Microbiology 11/28/21 09:32 Sputum - Suctioned Gram Stain - Final 11/28/21 09:32 Sputum - Suctioned Sputum Culture - Final Kimberly albicans 11/25/21 01:47 Blood - Venous Blood Culture - Final No growth after 5 days. 11/25/21 01:42 Blood - Venous Blood Culture - Final No growth after 5 days. Progress Note: A&P Assessment and plan (1) Acute encephalopathy: Status: Acute (2) Acute respiratory failure: Status: Acute (3) Schizoaffective disorder: Status: Acute (4) Alcoholic cirrhosis of liver: Status: Acute (5) Atrial fibrillation with RVR: Status: Acute (6) CKD (chronic kidney disease): Status: Acute Assessment and Plan: Assessment: 66-year-old lady with underlying alcoholic cirrhosis, dementia, schizoaffective disorder a admitted with acute exacerbation of underlying congestive heart failure further complicated by AFib with RVR, and development of angioedema requiring intubation for ventilatory support, extubated 09/29/2022 Plan: Neuro: Encephalopathy, improved related to underlying schizoaffective disorder. Now off Precedex drip. Cardiac: AFib with RVR, continue with amiodarone. underlying acute on chronic diastolic congestive heart failure improving with diuresis. Pulmonary: Acute respiratory failure secondary to angioedema requiring intubation and ventilatory support for airway protection, extubated 11/29/2021. Continue to titrate off supplemental oxygen as tolerated. Renal: No acute issues. Chronic hyponatremia , improving. Endo: No acute issues. GI: No acute issues. ID: No acute issues Heme/Onc: No acute issues. Psych: No acute issues. Underlying schizoaffective disorder, continue haldol. Miscellaneous: No acute issues. Prophylaxis: apixaban Diet: pending swallow evaluation Critical care time spent: 45 minutes Quality Stroke Does the patient have a stroke diagnosis?: No VTE Prior VTE?: No VTE Risk Level:: Medical - moderate - high VTE Device Contraindication: Treatment Not Indicated VTE Drug Contraindication: N/A - Med Ordered
--- NOTE | 2021-12-01 14:31 | MHC.CM.PN ---
Pt extubated but with continued a fib and elevated HR: 130's. to consider med adjustments including Haldol. Pt is a LTC resident from [facility] and a bed hold. CM to follow for changes in d/c plan
[2021-12-01 16:40] LABS: Glucose, Whole Blood 149 mg/dL (60-115)
[2021-12-01] MEDS: dilTIAZem HCL 125 MG in 0.9 % Sodium Chloride 100 ML 10 MG IVCONT (19:27)
[2021-12-01] MEDS: Haloperidol Lactate 5 MG/ML VIAL 3 MG IVPUSH (20:28)
[2021-12-01 21:02] LABS: Glucose, Whole Blood 161 mg/dL (60-115)
[2021-12-01] MEDS: Albuterol/Iprat 2.5/0.5MG 3 ML AMPUL.NEB INHALE (21:30)
[2021-12-02] VITALS (28 sets, daily range): BP systolic 134–180; BP diastolic 51–84; PULSE 102–131; RESP 18–180; TEMP 36.6–38.1; O2SAT 85–93
[2021-12-02] MEDS: fentaNYL citrate/PF 100 MCG/2 ML VIAL 50 MCG IVPUSH ×2 (00:53→05:21)
[2021-12-02] MEDS: Albuterol/Iprat 2.5/0.5MG 3 ML AMPUL.NEB INHALE ×2 (01:51→05:42)
[2021-12-02] MEDS: dilTIAZem HCL 125 MG in 0.9 % Sodium Chloride 100 ML 15 MG IVCONT (03:56)
[2021-12-02 05:43] LABS: Basophils Percent Auto 0.1 % (0-2); Hematocrit 33.2 % (37.0-47.0); Hemoglobin 9.5 g/dl (12.0-16.0); Imm Gran Abs Auto 0.23 X10*3/uL (0.00-0.03); Lymphocytes Absolute Auto 0.5 X10*3/uL (1.2-4.9); Lymphocytes Percent Auto 2.2 % (20-40); MANUAL DIFF FLAG SCAN; Mean Corpuscular HGB Conc 28.6 g/dl (31.0-35.0); Mean Corpuscular Volume 66.4 fL (80.0-98.0); Mean Platelet Volume 9.2 fL (9.4-12.3); Monocytes Absolute Auto 2.3 X10*3/uL (0.1-1.2); Monocytes Percent Auto 10.2 % (2-11); NRBC Pct Auto 0.4 /100WBC (0.0-0.2); Neutrophils Absolute Auto 19.5 x10*3/uL (2.0-8.3); Neutrophils Percent Auto 86.5 % (45-73); Platelet Count 326 X10*3/uL (160-400); Red Cell Distribution Width 21.2 % (11.0-16.0); SCAN SMEAR FLAG 1; White Blood Count 22.6 X10*3/uL (4.8-10.8)
[2021-12-02 06:00] LABS: Albumin Level 3.7 g/dL (3.5-5.0); Anion Gap 16 (12-20); Blood Urea Nitrogen 25 mg/dL (9-16); Calcium 8.9 mg/dL (8.4-10.2); Carbon Dioxide 31 mmol/L (22-29); Chloride 102 mmol/L (96-108); Creatinine Clr Calc Pharmacy 98.7; Estimated Glomerular Filt Rate > 60; Glucose Random 155 mg/dL (60-115); Magnesium 2.4 mg/dL (1.6-2.6); Phosphorus 3.2 mg/dL (2.7-4.5); Potassium 4.6 mmol/L (3.3-5.1); Sodium 144 mmol/L (135-145)
[2021-12-02 07:17] LABS: Glucose, Whole Blood 162 mg/dL (60-115)
[2021-12-02 07:39] LABS: VBG Base Excess 9.9 mmol/L; VBG HCO3 36 mmol/L (22-26); VBG pCO2 61 mmHg; VBG pH 7.38 (7.32-7.43); VBG pO2 46 mmHg
[2021-12-02] MEDS: Insulin Glargine,Hum.rec.anlog 100 UNIT/ML 10 ML VIAL 20 UNIT SUBCUT (07:50)
[2021-12-02] MEDS: lamoTRIgine 25 MG TABLET 50 MG PO ×2 (07:50→21:01)
[2021-12-02] MEDS: Apixaban 5 MG TABLET PO ×2 (07:50→21:01)
[2021-12-02] MEDS: Insulin Lispro 100 UNIT/ML 3 ML VIAL SUBCUT ×3 (07:50→21:16)
[2021-12-02] MEDS: Nystatin Powder 15 GM BOTTLE 1 APPL TOPICAL ×3 (07:58→21:01)
[2021-12-02] MEDS: 0.9 % Sodium Chloride Flush 3 ML SYRINGE IVFLUSH ×2 (08:00→17:11)
[2021-12-02 08:25] LABS: Venous Blood Gas Refer to POC result
[2021-12-02] MEDS: dilTIAZem HCL 60 MG TABLET PO ×4 (08:39→21:01)
[2021-12-02] MEDS: Amiodarone HCL 200 MG TABLET 400 MG PO (08:39)
[2021-12-02 08:40] LABS: SLIDE REVIEW VERIFIED
[2021-12-02] MEDS: Albuterol Sulfate (0.083%) 2.5 MG/3 ML VIAL.NEB INHALE ×2 (08:41→15:22)
[2021-12-02 11:34] LABS: Glucose, Whole Blood 150 mg/dL (60-115)
[2021-12-02] MEDS: Ampicillin Sodium/Sulbactam Na 3 GM in 0.9 % Sodium Chloride 100 ML IV ×3 (11:40→23:45)
--- NOTE | 2021-12-02 13:27 | PM.CCPN ---
Subjective Subjective Date of Service: 12/02/21 Interval History: 66-year-old lady with underlying alcoholic cirrhosis, dementia, chronic hypernatremia, chronic renal disease, schizoaffective disorder, asthma resident of nursing home facility admitted with dyspnea likely secondary to CHF exacerbation on 11/25/2021. Treated with diuresis with improvement in her symptoms but with development of AFib with RVR, hospital course further complicated by development of angioedema on 11/27/2021 requiring intubation and transfer to intensive care unit. Treated with systemic glucocorticoids sent H2 blockers with significant improvement. Extubated on 11/29/2021. Patient still with significant AFib with RVR breakthrough episodes and improving encephalopathy. No events overnight. In and out AFib. Transition to p.o. ME underlying/capped 7. Mental status has significantly improved. Critical Care Time (minutes): 0 Physical Exam Vital Signs: Vital Signs: Last Vital Signs Temp 98.5 F 12/02/21 13:00 Pulse 120 H 12/02/21 13:00 Resp 42 H 12/02/21 13:00 BP 161/69 H 12/02/21 13:00 Pulse Ox 90 L 12/02/21 13:00 Oxygen Flow Rate 30 12/02/21 00:00 BMI result Body Mass Index 48.9 Const: General: no acute distress, alert and awake Nutritional Appearance: obese Eyes: Sclerae: sclerae normal EOM: EOMs intact bilaterally Neck: Neck: Yes no lymphadenopathy, Yes trachea midline and Yes supple Resp: Effort & Inspection: normal respiratory effort and no respiratory distress Auscultation: crackles (Bibasilar) Cardio: Rate: tachycardic Rhythm: abnormal rhythm irregularly irregular Heart sounds: no gallops, no murmurs and no rubs GI: Palpation (GI): Soft to palpation and Other GI palpation findings present ( Nontender) Auscultation: normal bowel sounds Extrem: General: No clubbing, No cyanosis and Yes pedal edema (1+ bilateral) Objective Data Labs CBC & Chem 7: 12/02/21 05:18 12/02/21 05:18 Labs: Laboratory Results - last 24 hr 12/01/21 12/01/21 12/02/21 16:33 20:59 05:18 WBC 22.6 H RBC 5.00 Hgb 9.5 L Hct 33.2 L MCV 66.4 L MCH 19.0 L MCHC 28.6 L RDW 21.2 H Plt Count 326 MPV 9.2 L Immature Gran % (Auto) 1.0 H Neut % (Auto) 86.5 H Lymph % (Auto) 2.2 L [place] % (Auto) 10.2 Eos % (Auto) 0.0 Baso % (Auto) 0.1 Lymph # (Auto) 0.5 L [place] # (Auto) 2.3 H Eos # (Auto) 0.0 Baso # (Auto) 0.0 Abs Immat Gran (auto) 0.23 H Absolute Neuts (auto) 19.5 H Absolute Nucleated RBC 0.090 H Nucleated RBC % (auto) 0.4 H Smear Tech's Comments VERIFIED VBG pH VBG pCO2 VBG pO2 VBG HCO3 VBG O2 Saturation VBG Base Excess Sodium Potassium Chloride Carbon Dioxide Anion Gap BUN Creatinine Estim Creat Clear Calc Estimated GFR POC Glucose 149 H 161 H Random Glucose Calcium Phosphorus Magnesium Albumin 12/02/21 12/02/21 12/02/21 05:18 05:25 07:14 WBC RBC Hgb Hct MCV MCH MCHC RDW Plt Count MPV Immature Gran % (Auto) Neut % (Auto) Lymph % (Auto) [place] % (Auto) Eos % (Auto) Baso % (Auto) Lymph # (Auto) [place] # (Auto) Eos # (Auto) Baso # (Auto) Abs Immat Gran (auto) Absolute Neuts (auto) Absolute Nucleated RBC Nucleated RBC % (auto) Smear Tech's Comments VBG pH 7.38 VBG pCO2 61 VBG pO2 46 VBG HCO3 36 H VBG O2 Saturation 70.0 VBG Base Excess 9.9 Sodium 144 Potassium 4.6 Chloride 102 Carbon Dioxide 31 H Anion Gap 16 BUN 25 H Creatinine 0.78 Estim Creat Clear Calc 98.7 Estimated GFR > 60 POC Glucose 162 H Random Glucose 155 H Calcium 8.9 Phosphorus 3.2 Magnesium 2.4 Albumin 3.7 12/02/21 11:30 WBC RBC Hgb Hct MCV MCH MCHC RDW Plt Count MPV Immature Gran % (Auto) Neut % (Auto) Lymph % (Auto) [place] % (Auto) Eos % (Auto) Baso % (Auto) Lymph # (Auto) [place] # (Auto) Eos # (Auto) Baso # (Auto) Abs Immat Gran (auto) Absolute Neuts (auto) Absolute Nucleated RBC Nucleated RBC % (auto) Smear Tech's Comments VBG pH VBG pCO2 VBG pO2 VBG HCO3 VBG O2 Saturation VBG Base Excess Sodium Potassium Chloride Carbon Dioxide Anion Gap BUN Creatinine Estim Creat Clear Calc Estimated GFR POC Glucose 150 H Random Glucose Calcium Phosphorus Magnesium Albumin Microbiology Microbiology Results: Microbiology 11/28/21 09:32 Sputum - Suctioned Gram Stain - Final 11/28/21 09:32 Sputum - Suctioned Sputum Culture - Final Kimberly albicans 11/25/21 01:47 Blood - Venous Blood Culture - Final No growth after 5 days. 11/25/21 01:42 Blood - Venous Blood Culture - Final No growth after 5 days. Progress Note: A&P Assessment and plan (1) Acute encephalopathy: Status: Acute (2) Acute respiratory failure: Status: Acute (3) Schizoaffective disorder: Status: Acute (4) CKD (chronic kidney disease): Status: Acute (5) Alcoholic cirrhosis of liver: Status: Acute (6) Angioedema: Status: Acute (7) Atrial fibrillation with RVR: Status: Acute Assessment and Plan: Assessment: 66-year-old lady with underlying alcoholic cirrhosis, dementia, schizoaffective disorder a admitted with acute exacerbation of underlying congestive heart failure further complicated by AFib with RVR, and development of angioedema requiring intubation for ventilatory support, extubated 09/29/2022 Plan: Neuro: Encephalopathy, improved significantly, likely related to underlying schizoaffective disorder. Now off Precedex drip. Cardiac: AFib with RVR, continue with amiodarone. underlying acute on chronic diastolic congestive heart failure improving with diuresis. Pulmonary: Acute respiratory failure secondary to angioedema requiring intubation and ventilatory support for airway protection, extubated 11/29/2021. Continue to titrate off supplemental oxygen as tolerated. Renal: No acute issues. Chronic hyponatremia , improving. Endo: No acute issues. GI: No acute issues. ID: Empirically covered for aspiration with Unasyn, to reassess in 48 hours. Heme/Onc: No acute issues. Psych: No acute issues. Underlying schizoaffective disorder, continue haldol and Lamictal Miscellaneous: No acute issues. Prophylaxis: apixaban Diet: Full liquids Critical care time spent: 45 minutes Quality Stroke Does the patient have a stroke diagnosis?: No VTE Prior VTE?: No VTE Risk Level:: Medical - moderate - high VTE Device Contraindication: Treatment Not Indicated VTE Drug Contraindication: N/A - Med Ordered
[2021-12-02] MEDS: Furosemide 20 MG/2 ML VIAL IVPUSH (14:25)
--- NOTE | 2021-12-02 15:31 | PC.NURSE ---
P patient found in respiratory distress by respiratory therapist,resp rate 40 ,sat 84% I patient placed on bipap,30% oxygen,sat 92%,A-fib on a monitor HR 110,patient drowsy but easily aurosable,Dr. James at the bedside assessing patient E will monitor
--- NOTE | 2021-12-02 15:51 | PC.NURSE ---
patient is being transferred back to ICU with assistance of respiratory therapy,RN and nursing script supervisor
[2021-12-02 16:39] LABS: Glucose, Whole Blood 235 mg/dL (60-115)
[2021-12-02 21:17] LABS: Glucose, Whole Blood 179 mg/dL (60-115)
[2021-12-03] VITALS (12 sets, daily range): BP systolic 140–183; BP diastolic 56–86; PULSE 102–124; RESP 13–36; TEMP 36.8–38.4; O2SAT 92–97
[2021-12-03] MEDS: 0.9 % Sodium Chloride Flush 3 ML SYRINGE IVFLUSH ×4 (00:19→21:40)
[2021-12-03] MEDS: Ampicillin Sodium/Sulbactam Na 3 GM in 0.9 % Sodium Chloride 100 ML IV ×4 (05:37→21:40)
[2021-12-03 05:40] LABS: VBG Base Excess 18.9 mmol/L; VBG HCO3 45 mmol/L (22-26); VBG pCO2 62 mmHg; VBG pH 7.47 (7.32-7.43); VBG pO2 53 mmHg
[2021-12-03 05:50] LABS: Basophils Percent Auto 0.1 % (0-2); Eosinophils Percent Auto 0.1 % (0-4); Hematocrit 31.7 % (37.0-47.0); Hemoglobin 8.8 g/dl (12.0-16.0); Imm Gran Abs Auto 0.17 X10*3/uL (0.00-0.03); Imm Gran Pct Auto 0.8 % (0.0-0.4); Lymphocytes Absolute Auto 0.6 X10*3/uL (1.2-4.9); Lymphocytes Percent Auto 3.1 % (20-40); MANUAL DIFF FLAG SCAN; Mean Corpuscular HGB Conc 27.8 g/dl (31.0-35.0); Mean Corpuscular Hemoglobin 18.5 pg (27.0-33.0); Mean Corpuscular Volume 66.7 fL (80.0-98.0); Mean Platelet Volume 9.3 fL (9.4-12.3); Monocytes Absolute Auto 2.1 X10*3/uL (0.1-1.2); Monocytes Percent Auto 10.1 % (2-11); NRBC Pct Auto 0.1 /100WBC (0.0-0.2); Neutrophils Absolute Auto 17.9 x10*3/uL (2.0-8.3); Neutrophils Percent Auto 85.8 % (45-73); Platelet Count 299 X10*3/uL (160-400); Red Blood Count 4.75 X10*6/uL (4.20-5.50); Red Cell Distribution Width 21.1 % (11.0-16.0); SCAN SMEAR FLAG 1; White Blood Count 20.8 X10*3/uL (4.8-10.8)
[2021-12-03 06:15] LABS: Albumin Level 3.2 g/dL (3.5-5.0); Anion Gap 10 (12-20); Blood Urea Nitrogen 21 mg/dL (9-16); Carbon Dioxide 38 mmol/L (22-29); Chloride 106 mmol/L (96-108); Creatinine Clr Calc Pharmacy 108.5; Estimated Glomerular Filt Rate > 60; Glucose Random 151 mg/dL (60-115); Magnesium 2.4 mg/dL (1.6-2.6); Phosphorus 2.3 mg/dL (2.7-4.5); Potassium 4.2 mmol/L (3.3-5.1); Sodium 150 mmol/L (135-145)
[2021-12-03 06:39] LABS: Venous Blood Gas Refer to POC result
[2021-12-03 07:12] LABS: Glucose, Whole Blood 141 mg/dL (60-115)
[2021-12-03] MEDS: Insulin Glargine,Hum.rec.anlog 100 UNIT/ML 10 ML VIAL 20 UNIT SUBCUT (07:50)
[2021-12-03] MEDS: Amiodarone HCL 200 MG TABLET 400 MG PO (07:54)
[2021-12-03] MEDS: Furosemide 20 MG/2 ML VIAL IVPUSH (07:54)
[2021-12-03] MEDS: dilTIAZem HCL 60 MG TABLET PO ×4 (07:54→21:39)
[2021-12-03] MEDS: lamoTRIgine 25 MG TABLET 50 MG PO ×2 (07:54→21:39)
[2021-12-03] MEDS: Apixaban 5 MG TABLET PO ×2 (07:54→21:39)
[2021-12-03] MEDS: Atorvastatin Calcium 10 MG TABLET PO (07:55)
[2021-12-03 08:28] LABS: SLIDE REVIEW VERIFIED
[2021-12-03] MEDS: acetaZOLAMIDE sodium 500 MG VIAL IVPUSH ×2 (09:04→21:39)
[2021-12-03] MEDS: Nystatin Powder 15 GM BOTTLE 1 APPL TOPICAL ×3 (10:20→21:40)
--- NOTE | 2021-12-03 10:47 | MHC.CLN ---
F/U DAY 7 WITH MINIMAL PO INTAKE PT IS ON AND OFF BIPAP WITH DIFFICULTY TAKING PO IF PPN NEEDED; PLEASE CONSULT RD DIET RX: F/L-PT MAY NEED WEEKEND CAREGIVER EVAL R/T CHEWING/SWALLOWING PROBLEMS NOTED CONSIDER PREALBUMIN TO FURTHER ASSESS VISCERAL PROTEIN STORES FOLLOWING
[2021-12-03 11:45] LABS: Glucose, Whole Blood 198 mg/dL (60-115)
[2021-12-03] MEDS: Insulin Lispro 100 UNIT/ML 3 ML VIAL SUBCUT ×3 (11:47→21:39)
--- NOTE | 2021-12-03 12:16 | MHC.CM.PN ---
Patient remains in ICU as [facility] patient. Patient is from [facility]. Patient has guardian. Patient is still on Bipap. Continue to monitor for d/c needs.
[2021-12-03] MEDS: amLODIPine Besylate 10 MG TABLET PO (13:14)
--- NOTE | 2021-12-03 13:36 | P.PNIM_ITS ---
Subjective Subjective Date of Service: 12/03/21 Interval History: Seen in f/u for acute hypoxic resp failure d/t angioedema, and exacerbation of COPD, her respiratory status is much better. She is more alert and more interactive today. She used bipap all night Review of Systems no fever, no cough, +sob Physical Exam Vital Signs: Vital Signs: Last Vital Signs Temp 100.9 F H 12/03/21 12:00 Pulse 120 H 12/03/21 12:00 Resp 30 H 12/03/21 12:00 BP 183/68 H 12/03/21 12:00 Pulse Ox 94 12/03/21 12:00 Oxygen Flow Rate 30 12/02/21 00:00 BMI result Body Mass Index 48.9 Const: Other: General: Alert, oriented to self, not in acute distress, morbidly obese Resp: dimished sounds bilaterally CVS: S1,S2, iregular iregular GI: +BS, NT, no distention Skin: No rash Neuro: motor grossly intact Psych: appropriate affect Objective Data Active Medications Acetazolamide (Acetazolamide Sodium 500 Mg Vial) 500 mg IVPUSH BID [facility] Last Admin: 12/03/21 09:04 Dose: 500 mg Documented by: VERONICA Albuterol Sulfate (Albuterol Sulfate (0.083%) 2.5 Mg/3 Ml Vial.Neb) 2.5 mg INHALE Q6H PRN PRN Reason: wheezing Last Admin: 12/02/21 08:41 Dose: 2.5 mg Documented by: KEM Amiodarone HCl (Amiodarone Hcl 200 Mg Tablet) 400 mg PO DAILY [facility] Last Admin: 12/03/21 07:54 Dose: 400 mg Documented by: VERONICA Amlodipine Besylate (Amlodipine Besylate 10 Mg Tablet) 10 mg PO DAILY [facility]; Protocol Last Admin: 12/03/21 13:14 Dose: 10 mg Documented by: VERONICA Comments: start now per Apixaban (Apixaban 5 Mg Tablet) 5 mg PO BID [facility] Last Admin: 12/03/21 07:54 Dose: 5 mg Documented by: VERONICA Atorvastatin Calcium (Atorvastatin Calcium 10 Mg Tablet) 10 mg PO DAILY [facility] Last Admin: 12/03/21 07:55 Dose: 10 mg Documented by: VERONICA Dextrose (Dextrose 50 % 25 Gm/50 Ml Vial) 25 gm IVPUSH Q15M PRN PRN Reason: per Hypoglycemia Standing Ord. Diltiazem HCl (Diltiazem Hcl 60 Mg Tablet) 60 mg PO QID [facility]; Protocol Last Admin: 12/03/21 13:14 Dose: 60 mg Documented by: VERONICA Fentanyl (Fentanyl Citrate/Pf 100 Mcg/2 Ml Vial) 12.5 mcg IVPUSH Q4H PRN; Protocol PRN Reason: Tachypnea Furosemide (Furosemide 20 Mg/2 Ml Vial) 20 mg IVPUSH DAILY [facility]; Protocol Last Admin: 12/03/21 07:54 Dose: 20 mg Documented by: VERONICA Haloperidol Lactate (Haloperidol Lactate 5 Mg/Ml Vial) 3 mg IVPUSH TID PRN PRN Reason: Anxiety Last Admin: 12/01/21 20:28 Dose: 3 mg Documented by: SOTO Ampicillin Sodium/Sulbactam (Sodium 3 gm/ Sodium Chloride) 100 mls @ 200 mls/hr IV Q6H [facility] Last Infusion: 12/03/21 12:26 Dose: 0 mls/hr Documented by: SHANELL Potassium Phosphate 15 mmol/ (Sodium Chloride) 255 mls @ 63.75 mls/hr IV Q4H [facility] Stop: 12/03/21 16:14 Last Admin: 12/03/21 13:11 Dose: 63.75 mls/hr Documented by: VERONICA Insulin Glargine (Insulin Glargine,Hum.Rec.Anlog 100 Unit/Ml 10 Ml Vial) 20 unit SUBCUT DAILY [facility] Last Admin: 12/03/21 07:50 Dose: 1 unit Documented by: VERONICA Insulin Human Lispro (Insulin Lispro 100 Unit/Ml 3 Ml Vial) 0 unit SUBCUT QIDACHS [facility]; Protocol Last Admin: 12/03/21 11:47 Dose: 2 unit Documented by: SHANELL Lamotrigine (Lamotrigine 25 Mg Tablet) 50 mg PO BID [facility] Last Admin: 12/03/21 07:54 Dose: 50 mg Documented by: VERONICA Naloxone HCl (Naloxone Hcl 0.4 Mg/Ml Vial) 0.2 mg IVPUSH Q2M PRN PRN Reason: Excessive sedation or RR < 8 Nitroglycerin (Nitroglycerin 0.4 Mg Tab.Subl) 0.4 mg SUBLINGUAL Q5M PRN PRN Reason: Chest Pain Nystatin (Nystatin Powder 15 Gm Bottle) 1 appl TOPICAL TID [facility]; Protocol Last Admin: 12/03/21 10:20 Dose: 1 appl Documented by: VERONICA Pharmacy Consult (Consult Rx Perform Med Rec) 1 each MISCELLANE ONCE PRN PRN Reason: Consult order Sodium Chloride (0.9 % Sodium Chloride Flush 3 Ml Syringe) 3 ml IVFLUSH QSHIFT [facility] Last Admin: 12/03/21 07:55 Dose: 3 ml Documented by: VERONICA Labs CBC & Chem 7: 12/03/21 05:30 12/03/21 15:25 Labs: Laboratory Results - last 24 hr 12/02/21 12/02/21 12/03/21 16:35 21:14 05:30 MCV 66.7 L MCH 18.5 L MCHC 27.8 L RDW 21.1 H Plt Count 299 MPV 9.3 L Immature Gran % (Auto) 0.8 H Neut % (Auto) 85.8 H Lymph % (Auto) 3.1 L [place] % (Auto) 10.1 Eos % (Auto) 0.1 Baso % (Auto) 0.1 Lymph # (Auto) 0.6 L [place] # (Auto) 2.1 H Eos # (Auto) 0.0 Baso # (Auto) 0.0 Abs Immat Gran (auto) 0.17 H Absolute Neuts (auto) 17.9 H Absolute Nucleated RBC 0.020 H Nucleated RBC % (auto) 0.1 Smear Tech's Comments VERIFIED VBG pH VBG pCO2 VBG pO2 VBG HCO3 VBG O2 Saturation VBG Base Excess Anion Gap Estim Creat Clear Calc Estimated GFR POC Glucose 235 H 179 H Random Glucose Calcium Phosphorus Magnesium Albumin 12/03/21 12/03/21 12/03/21 05:30 05:33 07:05 MCV MCH MCHC RDW Plt Count MPV Immature Gran % (Auto) Neut % (Auto) Lymph % (Auto) [place] % (Auto) Eos % (Auto) Baso % (Auto) Lymph # (Auto) [place] # (Auto) Eos # (Auto) Baso # (Auto) Abs Immat Gran (auto) Absolute Neuts (auto) Absolute Nucleated RBC Nucleated RBC % (auto) Smear Tech's Comments VBG pH 7.47 H VBG pCO2 62 VBG pO2 53 VBG HCO3 45 H VBG O2 Saturation 83.0 VBG Base Excess 18.9 Anion Gap 10 L Estim Creat Clear Calc 108.5 Estimated GFR > 60 POC Glucose 141 H Random Glucose 151 H Calcium 9.0 Phosphorus 2.3 L Magnesium 2.4 Albumin 3.2 L 12/03/21 11:42 MCV MCH MCHC RDW Plt Count MPV Immature Gran % (Auto) Neut % (Auto) Lymph % (Auto) [place] % (Auto) Eos % (Auto) Baso % (Auto) Lymph # (Auto) [place] # (Auto) Eos # (Auto) Baso # (Auto) Abs Immat Gran (auto) Absolute Neuts (auto) Absolute Nucleated RBC Nucleated RBC % (auto) Smear Tech's Comments VBG pH VBG pCO2 VBG pO2 VBG HCO3 VBG O2 Saturation VBG Base Excess Anion Gap Estim Creat Clear Calc Estimated GFR POC Glucose 198 H Random Glucose Calcium Phosphorus Magnesium Albumin Assessment and Plan (1) Acute encephalopathy: Status: Acute (2) Acute respiratory failure: Status: Acute Assessment and Plan: ? 66-year-old lady with underlying alcoholic cirrhosis, dementia, schizoaffective disorder a admitted with acute? exacerbation of underlying congestive heart failure further complicated by AFib with RVR, and development of angioedema requiring intubation for ventilatory support, extubated 09/29/2022.. #Acute respiratory failure secondary to angioedema requiring intubation and ventilatory support for airway protection,? extubated 11/29/2021.? Continue to titrate off supplemental oxygen as tolerated -BiPAP at night time # AFib with RVR--better -Continue Cardizem CD -Continue Amio -if needed to add dig for better control -Eliquis for stroke prevention #Hyponatremia--corrected and now Hypernatremia--Oral water and follow sodium level #COPD? exacerbated by pneumonia -Bronchodilators, steroid and Unassyn for pneumonia #DM II--Lantus, SSI and follow sugars #. Schizoaffective disorder ?-Haldol restarted. IM dose given secondary to agitated episode with excellent response #Metabolic Alkalosis--Diamox #HLD--Lipitor #leukocytosis--d/t steroid,, monitor # fever, monitor , check for covid Quality Stroke Does the patient have a stroke diagnosis?: No VTE Prior VTE?: No VTE Risk Level:: Medical - moderate - high VTE Device Contraindication: Treatment Not Indicated VTE Drug Contraindication: N/A - Med Ordered
--- NOTE | 2021-12-03 14:59 | P.PNNP_ITS ---
Subjective Subjective Date of Service: 12/03/21 Principal diagnosis: dysnatremia Interval history: seen and examined, events noted Physical Exam Vital Signs: Vital Signs: Last Vital Signs Temp 100.9 F H 12/03/21 12:00 Pulse 120 H 12/03/21 12:00 Resp 30 H 12/03/21 12:00 BP 183/68 H 12/03/21 12:00 Pulse Ox 94 12/03/21 12:00 Oxygen Flow Rate 30 12/02/21 00:00 BMI result Body Mass Index 48.9 Const: Other: Intubated General: cooperative and no acute distress Nutritional Appearance: obese Orientation/consciousness: patient oriented x3 Eyes: General: appearance normal, both eyes and all related structures Sclerae: sclerae normal Pupils: Equal, round and reactive pupils present EOM: EOMs intact bilaterally Neck: Neck: Yes normal visual inspection, Yes no lymphadenopathy, Yes trachea midline and Yes supple Chest: Chest palpation & inspection: normal inspection of the chest Resp: Effort & Inspection: normal respiratory effort Auscultation: clear to auscultation bilaterally Cardio: Palpation: normal PMI Rate: regular rate Rhythm: regular rhythm Heart sounds: S1 normal heart sound present, S2 normal heart sound present, no gallops, no murmurs and no rubs GI: Other: no tenderness, no rebound or guarding Palpation (GI): Soft to p alpation Auscultation: normal bowel sounds Skin: General skin exam: no rashes or lesions noted Lesions: other Neuro: General: patient oriented x3 Cranial nerves: Yes Equal, round and reactive pupils present Cognition (Neuro): normal cognition Extrem: Other: 1+ pitting edema General: Yes normal to inspection and Yes no pedal edema Psych: Mental Status: other Objective Data Labs CBC & Chem 7: 12/03/21 05:30 12/03/21 05:30 Labs: Laboratory Results - last 24 hr 12/02/21 12/02/21 12/03/21 16:35 21:14 05:30 WBC 20.8 H RBC 4.75 Hgb 8.8 L Hct 31.7 L MCV 66.7 L MCH 18.5 L MCHC 27.8 L RDW 21.1 H Plt Count 299 MPV 9.3 L Immature Gran % (Auto) 0.8 H Neut % (Auto) 85.8 H Lymph % (Auto) 3.1 L [place] % (Auto) 10.1 Eos % (Auto) 0.1 Baso % (Auto) 0.1 Lymph # (Auto) 0.6 L [place] # (Auto) 2.1 H Eos # (Auto) 0.0 Baso # (Auto) 0.0 Abs Immat Gran (auto) 0.17 H Absolute Neuts (auto) 17.9 H Absolute Nucleated RBC 0.020 H Nucleated RBC % (auto) 0.1 Smear Tech's Comments VERIFIED VBG pH VBG pCO2 VBG pO2 VBG HCO3 VBG O2 Saturation VBG Base Excess Sodium Potassium Chloride Carbon Dioxide Anion Gap BUN Creatinine Estim Creat Clear Calc Estimated GFR POC Glucose 235 H 179 H Random Glucose Calcium Phosphorus Magnesium Albumin 12/03/21 12/03/21 12/03/21 05:30 05:33 07:05 WBC RBC Hgb Hct MCV MCH MCHC RDW Plt Count MPV Immature Gran % (Auto) Neut % (Auto) Lymph % (Auto) [place] % (Auto) Eos % (Auto) Baso % (Auto) Lymph # (Auto) [place] # (Auto) Eos # (Auto) Baso # (Auto) Abs Immat Gran (auto) Absolute Neuts (auto) Absolute Nucleated RBC Nucleated RBC % (auto) Smear Tech's Comments VBG pH 7.47 H VBG pCO2 62 VBG pO2 53 VBG HCO3 45 H VBG O2 Saturation 83.0 VBG Base Excess 18.9 Sodium 150 H Potassium 4.2 Chloride 106 Carbon Dioxide 38 H Anion Gap 10 L BUN 21 H Creatinine 0.71 Estim Creat Clear Calc 108.5 Estimated GFR > 60 POC Glucose 141 H Random Glucose 151 H Calcium 9.0 Phosphorus 2.3 L Magnesium 2.4 Albumin 3.2 L 12/03/21 11:42 WBC RBC Hgb Hct MCV MCH MCHC RDW Plt Count MPV Immature Gran % (Auto) Neut % (Auto) Lymph % (Auto) [place] % (Auto) Eos % (Auto) Baso % (Auto) Lymph # (Auto) [place] # (Auto) Eos # (Auto) Baso # (Auto) Abs Immat Gran (auto) Absolute Neuts (auto) Absolute Nucleated RBC Nucleated RBC % (auto) Smear Tech's Comments VBG pH VBG pCO2 VBG pO2 VBG HCO3 VBG O2 Saturation VBG Base Excess Sodium Potassium Chloride Carbon Dioxide Anion Gap BUN Creatinine Estim Creat Clear Calc Estimated GFR POC Glucose 198 H Random Glucose Calcium Phosphorus Magnesium Albumin Microbiology Microbiology Results: Microbiology 11/28/21 09:32 Sputum - Suctioned Gram Stain - Final 11/28/21 09:32 Sputum - Suctioned Sputum Culture - Final Kimberly albicans 11/25/21 01:47 Blood - Venous Blood Culture - Final No growth after 5 days. 11/25/21 01:42 Blood - Venous Blood Culture - Final No growth after 5 days. Procedures Date of Service Date of Service: 12/03/21 Assessment & Plan Assessment and plan (1) Atrial fibrillation with RVR: Status: Acute (2) Hyponatremia: Status: Acute (3) Acute hyperkalemia: Status: Acute (4) Dyspnea: Status: Acute (5) Acute anaphylaxis: Status: Acute Assessment and Plan: 66-year-old female with past medical history of alcoholic liver cirrhosis, dementia, hyponatremia presents to the hospital with AFib with RVR 1. HypoNA: SNa cont to incr gradually and now hyperNa ? h/o chronic hyponatremia 2. HyperK: recurred this am; multifact 3. Resp Failure: angioedema req intubation REC: IV D5W cautiously; repeat SNa and track Time Spent With Patient Time: Total time spent is greater than 50% in coordination of care (as documented) at patient's floor/unit and/or counseling patient: Progress Note: Quality Stroke Does the patient have a stroke diagnosis?: No
[2021-12-03] MEDS: Albuterol Sulfate (0.083%) 2.5 MG/3 ML VIAL.NEB INHALE (15:52)
[2021-12-03 15:54] LABS: Anion Gap 9 (12-20); Carbon Dioxide 40 mmol/L (22-29); Chloride 106 mmol/L (96-108); Potassium 3.9 mmol/L (3.3-5.1); Sodium 151 mmol/L (135-145)
[2021-12-03 16:52] LABS: Glucose, Whole Blood 197 mg/dL (60-115)
[2021-12-03 20:25] LABS: Glucose, Whole Blood 213 mg/dL (60-115)
[2021-12-03 22:27] LABS: COVID-19 Test Negative (Negative)
[2021-12-04] VITALS (11 sets, daily range): BP systolic 125–176; BP diastolic 58–80; PULSE 87–124; RESP 18–28; TEMP 36.9–38.4; O2SAT 93–96
[2021-12-04] MEDS: Ampicillin Sodium/Sulbactam Na 3 GM in 0.9 % Sodium Chloride 100 ML IV ×4 (05:38→23:05)
[2021-12-04 08:06] LABS: Glucose, Whole Blood 168 mg/dL (60-115)
[2021-12-04] MEDS: acetaZOLAMIDE sodium 500 MG VIAL IVPUSH ×2 (08:23→19:35)
[2021-12-04] MEDS: Insulin Lispro 100 UNIT/ML 3 ML VIAL SUBCUT ×3 (08:32→17:41)
[2021-12-04] MEDS: Insulin Glargine,Hum.rec.anlog 100 UNIT/ML 10 ML VIAL 20 UNIT SUBCUT (08:33)
[2021-12-04] MEDS: Apixaban 5 MG TABLET PO ×2 (10:14→19:35)
[2021-12-04] MEDS: amLODIPine Besylate 10 MG TABLET PO (10:14)
[2021-12-04] MEDS: Amiodarone HCL 200 MG TABLET 400 MG PO (10:14)
[2021-12-04] MEDS: dilTIAZem HCL 60 MG TABLET PO ×4 (10:14→19:36)
[2021-12-04] MEDS: lamoTRIgine 25 MG TABLET 50 MG PO ×2 (10:15→19:36)
[2021-12-04] MEDS: Nystatin Powder 15 GM BOTTLE 1 APPL TOPICAL ×3 (10:15→20:23)
[2021-12-04] MEDS: 0.9 % Sodium Chloride Flush 3 ML SYRINGE IVFLUSH ×2 (10:15→23:53)
[2021-12-04 12:18] LABS: Glucose, Whole Blood 168 mg/dL (60-115)
--- NOTE | 2021-12-04 12:33 | P.PNIM_ITS ---
Subjective Subjective Date of Service: 12/05/21 Interval History: Seen in f/u for acute hypoxic resp failure d/t angioedema, and exacerbation of COPD, her respiratory status is much better. She is more alert and more interactive today. She used bipap all night Review of Systems no fever, no cough, +sob Physical Exam Vital Signs: Vital Signs: Last Vital Signs Temp 98.5 F 12/04/21 11:50 Pulse 114 H 12/04/21 11:50 Resp 20 12/04/21 11:50 BP 135/64 12/04/21 11:50 Pulse Ox 94 12/04/21 11:50 Oxygen Flow Rate 30 12/02/21 00:00 BMI result Body Mass Index 48.9 Const: Other: General: Alert, oriented to self, not in acute distress, morbidly obese Resp: dimished sounds bilaterally CVS: S1,S2, iregular iregular GI: +BS, NT, no distention Skin: No rash Neuro: motor grossly intact Psych: appropriate affect Objective Data Active Medications Acetazolamide (Acetazolamide Sodium 500 Mg Vial) 500 mg IVPUSH BID [facility] Last Admin: 12/04/21 08:23 Dose: 500 mg Documented by: DONTRELL Albuterol Sulfate (Albuterol Sulfate (0.083%) 2.5 Mg/3 Ml Vial.Neb) 2.5 mg INHALE Q6H PRN PRN Reason: wheezing Last Admin: 12/03/21 15:52 Dose: 2.5 mg Documented by: DAYANARA Amiodarone HCl (Amiodarone Hcl 200 Mg Tablet) 400 mg PO DAILY [facility] Last Admin: 12/04/21 10:14 Dose: 400 mg Documented by: DONTRELL Amlodipine Besylate (Amlodipine Besylate 10 Mg Tablet) 10 mg PO DAILY [facility]; Protocol Last Admin: 12/04/21 10:14 Dose: 10 mg Documented by: DONTRELL Apixaban (Apixaban 5 Mg Tablet) 5 mg PO BID [facility] Last Admin: 12/04/21 10:14 Dose: 5 mg Documented by: DONTRELL Atorvastatin Calcium (Atorvastatin Calcium 10 Mg Tablet) 10 mg PO DAILY [facility] Last Admin: 12/03/21 07:55 Dose: 10 mg Documented by: VERONICA Dextrose (Dextrose 50 % 25 Gm/50 Ml Vial) 25 gm IVPUSH Q15M PRN PRN Reason: per Hypoglycemia Standing Ord. Diltiazem HCl (Diltiazem Hcl 60 Mg Tablet) 60 mg PO QID [facility]; Protocol Last Admin: 12/04/21 10:14 Dose: 60 mg Documented by: DONTRELL Fentanyl (Fentanyl Citrate/Pf 100 Mcg/2 Ml Vial) 12.5 mcg IVPUSH Q4H PRN; Protocol PRN Reason: Tachypnea Furosemide (Furosemide 20 Mg/2 Ml Vial) 20 mg IVPUSH DAILY [facility]; Protocol Last Admin: 12/03/21 07:54 Dose: 20 mg Documented by: VERONICA Haloperidol Lactate (Haloperidol Lactate 5 Mg/Ml Vial) 3 mg IVPUSH TID PRN PRN Reason: Anxiety Last Admin: 12/01/21 20:28 Dose: 3 mg Documented by: SOTO Ampicillin Sodium/Sulbactam (Sodium 3 gm/ Sodium Chloride) 100 mls @ 200 mls/hr IV Q6H [facility] Last Infusion: 12/04/21 11:44 Dose: 0 mls/hr Documented by: DONTRELL Dextrose (D5w) 1,000 mls @ 75 mls/hr IVCONT .[id number] [facility] Last Admin: 12/04/21 05:32 Dose: Not Given Documented by: PATRIA Non-Admin Reason: HELD MED Insulin Glargine (Insulin Glargine,Hum.Rec.Anlog 100 Unit/Ml 10 Ml Vial) 20 unit SUBCUT DAILY [facility] Last Admin: 12/04/21 08:33 Dose: 20 unit Documented by: DONTRELL Insulin Human Lispro (Insulin Lispro 100 Unit/Ml 3 Ml Vial) 0 unit SUBCUT QIDACHS [facility]; Protocol Last Admin: 12/04/21 08:32 Dose: 2 unit Documented by: DONTRELL Lamotrigine (Lamotrigine 25 Mg Tablet) 50 mg PO BID [facility] Last Admin: 12/04/21 10:15 Dose: 50 mg Documented by: DONTRELL Naloxone HCl (Naloxone Hcl 0.4 Mg/Ml Vial) 0.2 mg IVPUSH Q2M PRN PRN Reason: Excessive sedation or RR < 8 Nitroglycerin (Nitroglycerin 0.4 Mg Tab.Subl) 0.4 mg SUBLINGUAL Q5M PRN PRN Reason: Chest Pain Nystatin (Nystatin Powder 15 Gm Bottle) 1 appl TOPICAL TID [facility]; Protocol Last Admin: 12/04/21 10:15 Dose: 1 appl Documented by: DONTRELL Pharmacy Consult (Consult Rx Perform Med Rec) 1 each MISCELLANE ONCE PRN PRN Reason: Consult order Sodium Chloride (0.9 % Sodium Chloride Flush 3 Ml Syringe) 3 ml IVFLUSH QSHIFT [facility] Last Admin: 12/04/21 10:15 Dose: 3 ml Documented by: DONTRELL Labs CBC & Chem 7: 12/05/21 07:27 12/05/21 07:27 Labs: Laboratory Results - last 24 hr 12/03/21 12/03/21 12/03/21 15:25 16:48 20:18 Anion Gap 9 L POC Glucose 197 H 213 H COVID-19 (JESSY) COVID-19 Clin Com 12/03/21 12/04/21 12/04/21 21:30 07:58 11:44 Anion Gap POC Glucose 168 H 168 H COVID-19 (JESSY) Negative COVID-19 Clin Com See Note Assessment and Plan (1) Acute encephalopathy: Status: Acute (2) Acute respiratory failure: Status: Acute Assessment and Plan: ? 66-year-old lady with underlying alcoholic cirrhosis, dementia, schizoaffective disorder a admitted with acute? exacerbation of underlying congestive heart failure further complicated by AFib with RVR, and development of angioedema requiring intubation for ventilatory support, extubated 09/29/2022.. #Acute respiratory failure secondary to angioedema requiring intubation and ventilatory support for airway protection,? extubated 11/29/2021.? Continue to titrate off supplemental oxygen as tolerated -BiPAP at night time # AFib with RVR--variable rate, prsently in 110s -Continue Cardizem CD -Continue Amio -if needed to add dig for better control -Eliquis for stroke prevention #Hyponatremia--corrected and now Hypernatremia--check sodium level #COPD? exacerbated by pneumonia -Bronchodilators, steroid and Unassyn for pneumonia, had fever yesterday but now resolved #DM II--Lantus, SSI and follow sugars #. Schizoaffective disorder ?-Haldol restarted. IM dose given secondary to agitated episode with excellent response #Metabolic Alkalosis--Diamox #HLD--Lipitor #leukocytosis--d/t steroid,, monitor # fever, monitor , check for covid Quality Stroke Does the patient have a stroke diagnosis?: No VTE Prior VTE?: No VTE Risk Level:: Medical - moderate - high VTE Device Contraindication: Treatment Not Indicated VTE Drug Contraindication: N/A - Med Ordered
--- NOTE | 2021-12-04 12:52 | PM.PNNEP ---
Subjective Subjective Date of Service: 12/04/21 Principal diagnosis: dysnatremia Interval history: Seen and examined, events noted Physical Exam Vital Signs: Vital Signs: Last Vital Signs Temp 98.5 F 12/04/21 11:50 Pulse 114 H 12/04/21 11:50 Resp 20 12/04/21 11:50 BP 135/64 12/04/21 11:50 Pulse Ox 94 12/04/21 11:50 Oxygen Flow Rate 30 12/02/21 00:00 BMI result Body Mass Index 48.9 Const: General: cooperative and no acute distress Nutritional Appearance: obese Orientation/consciousness: patient oriented x3 Eyes: General: appearance normal, both eyes and all related structures Sclerae: sclerae normal Pupils: Equal, round and reactive pupils present EOM: EOMs intact bilaterally Neck: Neck: Yes normal visual inspection, Yes no lymphadenopathy, Yes trachea midline and Yes supple Chest: Chest palpation & inspection: normal inspection of the chest Resp: Effort & Inspection: normal respiratory effort Auscultation: clear to auscultation bilaterally Cardio: Palpation: normal PMI Rate: regular rate Rhythm: regular rhythm Heart sounds: S1 normal heart sound present, S2 normal heart sound present, no gallops, no murmurs and no rubs GI: Palpation (GI): Soft to palpation Auscultation: normal bowel sounds Skin: General skin exam: no rashes or lesions noted Lesions: other Neuro: General: patient oriented x3 Cranial nerves: Yes Equal, round and reactive pupils present Cognition (Neuro): normal cognition Extrem: General: Yes normal to inspection and Yes no pedal edema Psych: Mental Status: other Objective Data Labs CBC & Chem 7: 12/03/21 05:30 12/03/21 15:25 Labs: Laboratory Results - last 24 hr 12/03/21 12/03/21 12/03/21 15:25 16:48 20:18 Sodium 151 H Potassium 3.9 Chloride 106 Carbon Dioxide 40 H* Anion Gap 9 L POC Glucose 197 H 213 H COVID-19 (JESSY) COVID-19 Clin Com 12/03/21 12/04/21 12/04/21 21:30 07:58 11:44 Sodium Potassium Chloride Carbon Dioxide Anion Gap POC Glucose 168 H 168 H COVID-19 (JESSY) Negative COVID-19 Clin Com See Note Microbiology Microbiology Results: Microbiology 11/28/21 09:32 Sputum - Suctioned Gram Stain - Final 11/28/21 09:32 Sputum - Suctioned Sputum Culture - Final Kimberly albicans 11/25/21 01:47 Blood - Venous Blood Culture - Final No growth after 5 days. 11/25/21 01:42 Blood - Venous Blood Culture - Final No growth after 5 days. Procedures Date of Service Date of Service: 12/04/21 Assessment & Plan Assessment and plan (1) Atrial fibrillation with RVR: Status: Acute (2) Hyponatremia: Status: Acute (3) Acute hyperkalemia: Status: Acute (4) Dyspnea: Status: Acute (5) Acute anaphylaxis: Status: Acute Assessment and Plan: 66-year-old female with past medical history of alcoholic liver cirrhosis, dementia, hyponatremia presents to the hospital with AFib with RVR 1. HyperNA: earlier in hosp course was hypoNa with grad correction and now hyperNa--poor po intake and on lasix 2. Metabolic alkalosis: c/w contraction alk 3. Resp Failure: angioedema req intubation REC: hold lasix; cont IV D5W and add 1/2 NS; track SNa and HCO3; cont diamox for now Time Spent With Patient Time: Total time spent is greater than 50% in coordination of care (as documented) at patient's floor/unit and/or counseling patient: Progress Note: Quality Stroke Does the patient have a stroke diagnosis?: No
[2021-12-04 13:05] LABS: Hematocrit 33.7 % (37.0-47.0); Hemoglobin 9.2 g/dl (12.0-16.0); Mean Corpuscular HGB Conc 27.3 g/dl (31.0-35.0); Mean Corpuscular Volume 69.8 fL (80.0-98.0); Mean Platelet Volume 9.3 fL (9.4-12.3); NRBC Pct Auto 0.1 /100WBC (0.0-0.2); Platelet Count 314 X10*3/uL (160-400); Red Blood Count 4.83 X10*6/uL (4.20-5.50); Red Cell Distribution Width 22.2 % (11.0-16.0)
[2021-12-04 14:07] LABS: Anion Gap 10 (12-20); Blood Urea Nitrogen 19 mg/dL (9-16); Calcium 8.6 mg/dL (8.4-10.2); Carbon Dioxide 40 mmol/L (22-29); Chloride 107 mmol/L (96-108); Creatinine Clr Calc Pharmacy 96.2; Estimated Glomerular Filt Rate > 60; Glucose Random 175 mg/dL (60-115); Potassium 3.6 mmol/L (3.3-5.1); Sodium 153 mmol/L (135-145)
[2021-12-04] MEDS: Sodium Chloride 0.45 % 1,000 ML 100 ML IVCONT ×2 (14:36→23:04)
[2021-12-04 17:08] LABS: Glucose, Whole Blood 168 mg/dL (60-115)
[2021-12-04] MEDS: Ibuprofen 400 MG TABLET PO (19:35)
[2021-12-04 20:13] LABS: Glucose, Whole Blood 138 mg/dL (60-115)
[2021-12-04 21:57] LABS: Anion Gap 10 (12-20); Carbon Dioxide 38 mmol/L (22-29); Chloride 109 mmol/L (96-108); Potassium 3.8 mmol/L (3.3-5.1); Sodium 153 mmol/L (135-145)
[2021-12-05] VITALS (9 sets, daily range): BP systolic 136–143; BP diastolic 64–68; PULSE 109–135; RESP 16–45; TEMP 36.3–38.7; O2SAT 91–97
[2021-12-05] MEDS: Ampicillin Sodium/Sulbactam Na 3 GM in 0.9 % Sodium Chloride 100 ML IV ×4 (05:07→23:36)
[2021-12-05 07:37] LABS: Glucose, Whole Blood 138 mg/dL (60-115)
[2021-12-05 07:53] LABS: Hematocrit 33.8 % (37.0-47.0); Hemoglobin 8.9 g/dl (12.0-16.0); Mean Corpuscular HGB Conc 26.3 g/dl (31.0-35.0); Mean Corpuscular Hemoglobin 18.6 pg (27.0-33.0); Mean Corpuscular Volume 70.7 fL (80.0-98.0); Platelet Count 290 X10*3/uL (160-400); Red Blood Count 4.78 X10*6/uL (4.20-5.50); Red Cell Distribution Width 22.1 % (11.0-16.0); White Blood Count 18.8 X10*3/uL (4.8-10.8)
[2021-12-05 08:23] LABS: Anion Gap 10 (12-20); Blood Urea Nitrogen 24 mg/dL (9-16); Calcium 8.4 mg/dL (8.4-10.2); Carbon Dioxide 38 mmol/L (22-29); Chloride 109 mmol/L (96-108); Creatinine Clr Calc Pharmacy 88.5; Estimated Glomerular Filt Rate > 60; Glucose Random 131 mg/dL (60-115); Potassium 3.7 mmol/L (3.3-5.1); Sodium 153 mmol/L (135-145)
[2021-12-05] MEDS: dilTIAZem HCL 60 MG TABLET PO ×4 (09:09→21:31)
[2021-12-05] MEDS: lamoTRIgine 25 MG TABLET 50 MG PO ×2 (09:10→21:31)
[2021-12-05] MEDS: Amiodarone HCL 200 MG TABLET 400 MG PO (09:10)
[2021-12-05] MEDS: Insulin Glargine,Hum.rec.anlog 100 UNIT/ML 10 ML VIAL 20 UNIT SUBCUT (09:11)
[2021-12-05] MEDS: Apixaban 5 MG TABLET PO ×2 (09:11→21:31)
[2021-12-05] MEDS: acetaZOLAMIDE sodium 500 MG VIAL IVPUSH ×2 (09:11→21:32)
[2021-12-05] MEDS: 0.9 % Sodium Chloride Flush 3 ML SYRINGE IVFLUSH (09:19)
[2021-12-05] MEDS: Sodium Chloride 0.45 % 1,000 ML 100 ML IVCONT (09:20)
[2021-12-05] MEDS: Nystatin Powder 15 GM BOTTLE 1 APPL TOPICAL ×3 (09:23→21:32)
--- NOTE | 2021-12-05 10:08 | HO.PM.IMPN ---
Subjective Subjective Date of Service: 12/05/21 Interval History: Seen in f/u for acute hypoxic resp failure d/t angioedema, and exacerbation of COPD, her respiratory status if stable, persistent hypernatremia, and tachycardia Review of Systems no fever, no cough, +sob Physical Exam Vital Signs: Vital Signs: Last Vital Signs Temp 98.6 F 12/05/21 08:00 Pulse 135 H 12/05/21 08:00 Resp 20 12/05/21 08:00 BP 139/65 12/05/21 08:00 Pulse Ox 97 12/05/21 08:00 Oxygen Flow Rate 30 12/02/21 00:00 BMI result Body Mass Index 48.9 Const: Other: General: Alert, oriented to self, not in acute distress, morbidly obese Resp: dimished sounds bilaterally CVS: S1,S2, iregular iregular, swelling in the arms, particulary on the left side GI: +BS, NT, no distention Skin: No rash Neuro: motor grossly intact Psych: appropriate affect Objective Data Active Medications Acetazolamide (Acetazolamide Sodium 500 Mg Vial) 500 mg IVPUSH BID [facility] Last Admin: 12/05/21 09:11 Dose: 500 mg Documented by: LATOSHA Amiodarone HCl (Amiodarone Hcl 200 Mg Tablet) 400 mg PO DAILY [facility] Last Admin: 12/05/21 09:10 Dose: 400 mg Documented by: LATOSHA Amlodipine Besylate (Amlodipine Besylate 10 Mg Tablet) 10 mg PO DAILY [facility]; Protocol Last Admin: 12/04/21 10:14 Dose: 10 mg Documented by: DONTRELL Apixaban (Apixaban 5 Mg Tablet) 5 mg PO BID [facility] Last Admin: 12/05/21 09:11 Dose: 5 mg Documented by: LATOSHA Atorvastatin Calcium (Atorvastatin Calcium 10 Mg Tablet) 10 mg PO DAILY [facility] Last Admin: 12/03/21 07:55 Dose: 10 mg Documented by: VERONICA Dextrose (Dextrose 50 % 25 Gm/50 Ml Vial) 25 gm IVPUSH Q15M PRN PRN Reason: per Hypoglycemia Standing Ord. Diltiazem HCl (Diltiazem Hcl 60 Mg Tablet) 60 mg PO QID [facility]; Protocol Last Admin: 12/05/21 09:09 Dose: 60 mg Documented by: LATOSHA Fentanyl (Fentanyl Citrate/Pf 100 Mcg/2 Ml Vial) 12.5 mcg IVPUSH Q4H PRN; Protocol PRN Reason: Tachypnea Haloperidol Lactate (Haloperidol Lactate 5 Mg/Ml Vial) 3 mg IVPUSH TID PRN PRN Reason: Anxiety Last Admin: 12/01/21 20:28 Dose: 3 mg Documented by: SOTO Ampicillin Sodium/Sulbactam (Sodium 3 gm/ Sodium Chloride) 100 mls @ 200 mls/hr IV Q6H [facility] Last Infusion: 12/05/21 05:40 Dose: 0 mls/hr Documented by: ANDREW Dextrose (D5w) 1,000 mls @ 75 mls/hr IVCONT .[id number] [facility] Last Admin: 12/05/21 09:20 Dose: Not Given Documented by: LATOSHA Non-Admin Reason: Physician Held Med Insulin Glargine (Insulin Glargine,Hum.Rec.Anlog 100 Unit/Ml 10 Ml Vial) 20 unit SUBCUT DAILY [facility] Last Admin: 12/05/21 09:11 Dose: 20 unit Documented by: LATOSHA Insulin Human Lispro (Insulin Lispro 100 Unit/Ml 3 Ml Vial) 0 unit SUBCUT QIDACHS [facility]; Protocol Last Admin: 12/05/21 09:19 Dose: Not Given Documented by: LATOSHA Non-Admin Reason: No Insulin Coverage Lamotrigine (Lamotrigine 25 Mg Tablet) 50 mg PO BID [facility] Last Admin: 12/05/21 09:10 Dose: 50 mg Documented by: LATOSHA Naloxone HCl (Naloxone Hcl 0.4 Mg/Ml Vial) 0.2 mg IVPUSH Q2M PRN PRN Reason: Excessive sedation or RR < 8 Nitroglycerin (Nitroglycerin 0.4 Mg Tab.Subl) 0.4 mg SUBLINGUAL Q5M PRN PRN Reason: Chest Pain Nystatin (Nystatin Powder 15 Gm Bottle) 1 appl TOPICAL TID [facility]; Protocol Last Admin: 12/05/21 09:23 Dose: 1 appl Documented by: LATOSHA Pharmacy Consult (Consult Rx Perform Med Rec) 1 each MISCELLANE ONCE PRN PRN Reason: Consult order Sodium Chloride (0.9 % Sodium Chloride Flush 3 Ml Syringe) 3 ml IVFLUSH QSHIFT [facility] Last Admin: 12/05/21 09:19 Dose: 3 ml Documented by: LATOSHA Labs CBC & Chem 7: 12/05/21 07:27 12/05/21 07:27 Labs: Laboratory Results - last 24 hr 12/04/21 12/04/21 12/04/21 11:44 12:44 12:44 MCV 69.8 L MCH 19.0 L MCHC 27.3 L RDW 22.2 H Plt Count 314 MPV 9.3 L Absolute Nucleated RBC 0.020 H Nucleated RBC % (auto) 0.1 Anion Gap 10 L Estim Creat Clear Calc 96.2 Estimated GFR > 60 POC Glucose 168 H Random Glucose 175 H Calcium 8.6 12/04/21 12/04/21 12/04/21 17:03 20:10 21:30 MCV MCH MCHC RDW Plt Count MPV Absolute Nucleated RBC Nucleated RBC % (auto) Anion Gap 10 L Estim Creat Clear Calc Estimated GFR POC Glucose 168 H 138 H Random Glucose Calcium 12/05/21 12/05/21 12/05/21 07:27 07:27 07:30 MCV 70.7 L MCH 18.6 L MCHC 26.3 L RDW 22.1 H Plt Count 290 MPV 10.0 Absolute Nucleated RBC 0.000 Nucleated RBC % (auto) 0.0 Anion Gap 10 L Estim Creat Clear Calc 88.5 Estimated GFR > 60 POC Glucose 138 H Random Glucose 131 H Calcium 8.4 Assessment and Plan (1) Acute encephalopathy: Status: Acute (2) Acute respiratory failure: Status: Acute Assessment and Plan: ? 66-year-old lady with underlying alcoholic cirrhosis, dementia, schizoaffective disorder a admitted with acute? exacerbation of underlying congestive heart failure further complicated by AFib with RVR, and development of angioedema requiring intubation for ventilatory support, extubated 09/29/2022.. #Acute respiratory failure secondary to angioedema requiring intubation and ventilatory support for airway protection,? extubated 11/29/2021.? Continue to titrate off supplemental oxygen as tolerated -BiPAP at night time # AFib with RVR--variable rate, prsently in 110s -Continue Cardizem CD -Continue Amio -if needed to add dig for better control -Eliquis for stroke prevention -ask cardiology to help with rate control #Hyponatremia--resolved. #HypERnatremia--likely from fluid water deficit, lasix #COPD? exacerbated by pneumonia -Bronchodilators, steroid and Unassyn for pneumonia, had fever yesterday but now resolved #DM II--Lantus, SSI and follow sugars #. Schizoaffective disorder ?-Haldol restarted. IM dose given secondary to agitated episode with excellent response #Metabolic Alkalosis--Diamox #HLD--Lipitor #leukocytosis--d/t steroid,, monitor, no more fever Quality Stroke Does the patient have a stroke diagnosis?: No VTE Prior VTE?: No VTE Risk Level:: Medical - moderate - high VTE Device Contraindication: Treatment Not Indicated VTE Drug Contraindication: N/A - Med Ordered
[2021-12-05 10:53] LABS: Glucose, Whole Blood 131 mg/dL (60-115)
--- NOTE | 2021-12-05 11:34 | PM.PNNEP ---
Subjective Subjective Date of Service: 12/05/21 Principal diagnosis: dysnatremia Interval history: Seen and examined, events noted Physical Exam Vital Signs: Vital Signs: Last Vital Signs Temp 98.6 F 12/05/21 08:00 Pulse 135 H 12/05/21 08:00 Resp 20 12/05/21 08:00 BP 139/65 12/05/21 08:00 Pulse Ox 97 12/05/21 08:00 Oxygen Flow Rate 30 12/02/21 00:00 BMI result Body Mass Index 48.9 Const: General: cooperative and no acute distress Nutritional Appearance: obese Orientation/consciousness: patient oriented x3 Eyes: General: appearance normal, both eyes and all related structures Sclerae: sclerae normal Pupils: Equal, round and reactive pupils present EOM: EOMs intact bilaterally Neck: Neck: Yes normal visual inspection, Yes no lymphadenopathy, Yes trachea midline and Yes supple Chest: Chest palpation & inspection: normal inspection of the chest Resp: Effort & Inspection: normal respiratory effort Auscultation: clear to auscultation bilaterally Cardio: Palpation: normal PMI Rate: regular rate Rhythm: regular rhythm Heart sounds: S1 normal heart sound present, S2 normal heart sound present, no gallops, no murmurs and no rubs GI: Palpation (GI): Soft to palpation Auscultation: normal bowel sounds Skin: General skin exam: no rashes or lesions noted Lesions: other Neuro: General: patient oriented x3 Cranial nerves: Yes Equal, round and reactive pupils present Cognition (Neuro): normal cognition Extrem: General: Yes normal to inspection and Yes no pedal edema Psych: Mental Status: other Objective Data Labs CBC & Chem 7: 12/05/21 07:27 12/05/21 07:27 Labs: Laboratory Results - last 24 hr 12/04/21 12/04/21 12/04/21 11:44 12:44 12:44 WBC 22.0 H RBC 4.83 Hgb 9.2 L Hct 33.7 L MCV 69.8 L MCH 19.0 L MCHC 27.3 L RDW 22.2 H Plt Count 314 MPV 9.3 L Absolute Nucleated RBC 0.020 H Nucleated RBC % (auto) 0.1 Sodium 153 H Potassium 3.6 Chloride 107 Carbon Dioxide 40 H* Anion Gap 10 L BUN 19 H Creatinine 0.80 Estim Creat Clear Calc 96.2 Estimated GFR > 60 POC Glucose 168 H Random Glucose 175 H Calcium 8.6 12/04/21 12/04/21 12/04/21 17:03 20:10 21:30 WBC RBC Hgb Hct MCV MCH MCHC RDW Plt Count MPV Absolute Nucleated RBC Nucleated RBC % (auto) Sodium 153 H Potassium 3.8 Chloride 109 H Carbon Dioxide 38 H Anion Gap 10 L BUN Creatinine Estim Creat Clear Calc Estimated GFR POC Glucose 168 H 138 H Random Glucose Calcium 12/05/21 12/05/21 12/05/21 07:27 07:27 07:30 WBC 18.8 H RBC 4.78 Hgb 8.9 L Hct 33.8 L MCV 70.7 L MCH 18.6 L MCHC 26.3 L RDW 22.1 H Plt Count 290 MPV 10.0 Absolute Nucleated RBC 0.000 Nucleated RBC % (auto) 0.0 Sodium 153 H Potassium 3.7 Chloride 109 H Carbon Dioxide 38 H Anion Gap 10 L BUN 24 H Creatinine 0.87 Estim Creat Clear Calc 88.5 Estimated GFR > 60 POC Glucose 138 H Random Glucose 131 H Calcium 8.4 12/05/21 10:39 WBC RBC Hgb Hct MCV MCH MCHC RDW Plt Count MPV Absolute Nucleated RBC Nucleated RBC % (auto) Sodium Potassium Chloride Carbon Dioxide Anion Gap BUN Creatinine Estim Creat Clear Calc Estimated GFR POC Glucose 131 H Random Glucose Calcium Microbiology Microbiology Results: Microbiology 11/28/21 09:32 Sputum - Suctioned Gram Stain - Final 11/28/21 09:32 Sputum - Suctioned Sputum Culture - Final Kimberly albicans 11/25/21 01:47 Blood - Venous Blood Culture - Final No growth after 5 days. 11/25/21 01:42 Blood - Venous Blood Culture - Final No growth after 5 days. Procedures Date of Service Date of Service: 12/05/21 Assessment & Plan Assessment and plan (1) Atrial fibrillation with RVR: Status: Acute (2) Hyponatremia: Status: Acute (3) Acute hyperkalemia: Status: Acute (4) Dyspnea: Status: Acute (5) Acute anaphylaxis: Status: Acute Assessment and Plan: 66-year-old female with past medical history of alcoholic liver cirrhosis, dementia, hyponatremia presents to the hospital with AFib with RVR 1. HyperNA: earlier in hosp course was hypoNa with grad correction and now hyperNa--poor po intake and on lasix 2. Metabolic alkalosis: c/w contraction alk 3. Resp Failure: angioedema req intubation REC: cont to hold lasix; cont IV D5W at incr rate; track SNa and HCO3 Time Spent With Patient Time: Total time spent is greater than 50% in coordination of care (as documented) at patient's floor/unit and/or counseling patient: Progress Note: Quality Stroke Does the patient have a stroke diagnosis?: No
[2021-12-05] MEDS: Metoprolol Tartrate 25 MG TABLET PO ×2 (11:44→21:31)
[2021-12-05] MEDS: amLODIPine Besylate 10 MG TABLET PO (11:45)
[2021-12-05] MEDS: Dextrose 5 % 1,000 ML 75 ML IVCONT ×2 (12:58→21:31)
[2021-12-05 16:55] LABS: Glucose, Whole Blood 208 mg/dL (60-115)
[2021-12-05] MEDS: Insulin Lispro 100 UNIT/ML 3 ML VIAL SUBCUT (17:47)
[2021-12-05 20:16] LABS: Glucose, Whole Blood 148 mg/dL (60-115)
[2021-12-05] MEDS: Ibuprofen 400 MG TABLET PO (21:32)
[2021-12-06] VITALS (19 sets, daily range): BP systolic 94–143; BP diastolic 41–76; PULSE 91–125; RESP 20–49; TEMP 36.4–39.5; O2SAT 90–96; BMI 43.1
--- NOTE | 2021-12-06 04:44 | PC.NURSE ---
at 2100 Patient had a temperature of 101.6. Dr. House notified. Order placed for Ibuprofen and administered by this RN. Ice packs placed on patient. Blood cultures ordered and drawn. Upon reassessment, temperature 98.7.
[2021-12-06] MEDS: Ampicillin Sodium/Sulbactam Na 3 GM in 0.9 % Sodium Chloride 100 ML IV ×4 (04:58→23:47)
[2021-12-06 06:39] LABS: Hematocrit 33.2 % (37.0-47.0); Hemoglobin 8.8 g/dl (12.0-16.0); Mean Corpuscular HGB Conc 26.5 g/dl (31.0-35.0); Mean Corpuscular Hemoglobin 19.2 pg (27.0-33.0); Mean Corpuscular Volume 72.5 fL (80.0-98.0); Mean Platelet Volume 9.8 fL (9.4-12.3); Platelet Count 249 X10*3/uL (160-400); Red Blood Count 4.58 X10*6/uL (4.20-5.50); Red Cell Distribution Width 22.5 % (11.0-16.0); White Blood Count 17.1 X10*3/uL (4.8-10.8)
[2021-12-06 06:48] LABS: Anion Gap 10 (12-20); Blood Urea Nitrogen 33 mg/dL (9-16); Calcium 8.3 mg/dL (8.4-10.2); Carbon Dioxide 38 mmol/L (22-29); Chloride 108 mmol/L (96-108); Creatinine Clr Calc Pharmacy 65.2; Estimated Glomerular Filt Rate 46; Glucose Random 155 mg/dL (60-115); Potassium 3.9 mmol/L (3.3-5.1); Sodium 152 mmol/L (135-145)
[2021-12-06 07:19] LABS: Glucose, Whole Blood 157 mg/dL (60-115)
[2021-12-06] MEDS: acetaZOLAMIDE sodium 500 MG VIAL IVPUSH ×2 (08:36→21:56)
[2021-12-06] MEDS: Insulin Lispro 100 UNIT/ML 3 ML VIAL SUBCUT ×2 (08:37→11:26)
[2021-12-06] MEDS: Metoprolol Tartrate 25 MG TABLET PO ×2 (08:38→21:56)
[2021-12-06] MEDS: dilTIAZem HCL 60 MG TABLET PO ×2 (08:39→21:56)
[2021-12-06] MEDS: amLODIPine Besylate 10 MG TABLET PO (08:39)
[2021-12-06] MEDS: Apixaban 5 MG TABLET PO ×2 (08:39→21:56)
[2021-12-06] MEDS: lamoTRIgine 25 MG TABLET 50 MG PO ×2 (08:39→21:56)
[2021-12-06] MEDS: 0.9 % Sodium Chloride Flush 3 ML SYRINGE IVFLUSH ×2 (08:39→17:56)
[2021-12-06] MEDS: Nystatin Powder 15 GM BOTTLE 1 APPL TOPICAL ×2 (08:47→21:56)
--- NOTE | 2021-12-06 09:44 | PC.NURSE ---
Skin/wound assessment completed today. Patient has fungal rash to breast, groin and abdominal folds. Interdry applied to all areas to wick away moisture and heal rash. No other skin issues noted at this time.
[2021-12-06] MEDS: Dextrose 5 % 1,000 ML 150 ML IVCONT (10:44)
--- NOTE | 2021-12-06 10:54 | PC.NURSE ---
At 1023, nephrology into see patient as well as myself. Patient continues to to be altered and simply moans and does not follow commands. Spoke with Dr. James this morning about the need for a MEREDITH swallow evaluation (did not take pills well. needed prompting and coughed immediately after. i am worried about aspiration.) I made her NPO until swallow eval to be done) Patient now seems more tachypnic and with weak cough. o2 sats 94 % 5LNC. Dr. James aware and ABG done at this time. CXR ordered as well. Will continue to monitor closely.
[2021-12-06 11:02] LABS: ABG Base Excess 17.2 mmol/L; ABG HCO3 46 mmol/L (22-26); ABG pCO2 85 mmHg (32-45); ABG pCO2 TC 84 mmHg (32-45); ABG pH 7.34 (7.35-7.45); ABG pH TC 7.34 (7.35-7.45); ABG pO2 81 mmHg (83-108); ABG pO2 TC 80 (83-108)
--- NOTE | 2021-12-06 11:05 | PC.NURSE ---
Dr. Noh up to evaluate patient status. IVF paused and 40mg lasix ordered/given. Portable CXR done as well
[2021-12-06 11:09] LABS: Glucose, Whole Blood 180 mg/dL (60-115)
--- NOTE | 2021-12-06 11:11 | P.PNIM_ITS ---
Subjective Subjective Date of Service: 12/06/21 Interval History: Seen in f/u for acute hypoxic resp failure d/t angioedema, and exacerbation of COPD. Respiratory status is tenous she is tachypnic, decrease responsivenss, breathing hard. ABG shows increased CO2 85, stat CXR requested. Review of Systems Review of Systems: Yes Unobtainable due to mental status Physical Exam Vital Signs: Vital Signs: Last Vital Signs Temp 99.6 F 12/06/21 11:04 Pulse 99 12/06/21 11:04 Resp 20 12/06/21 07:22 BP 104/55 L 12/06/21 11:04 Pulse Ox 90 L 12/06/21 11:04 Oxygen Flow Rate 30 12/02/21 00:00 BMI result Body Mass Index 48.9 General: decrease responsive, speech hard to understand Resp: rhonchi bilaterally, decrease sound, shallow breaths, markedly edematous especially in the upper extremities. CVS: iregular iregular GI: +BS, NT, no distention Skin: No rash Neuro: motor grossly intact Psych: flat Objective Data Active Medications Acetazolamide (Acetazolamide Sodium 500 Mg Vial) 500 mg IVPUSH BID [facility] Last Admin: 12/06/21 08:36 Dose: 500 mg Documented by: AMANDA Amlodipine Besylate (Amlodipine Besylate 10 Mg Tablet) 10 mg PO DAILY [facility]; Protocol Last Admin: 12/06/21 08:39 Dose: 10 mg Documented by: AMANDA Apixaban (Apixaban 5 Mg Tablet) 5 mg PO BID [facility] Last Admin: 12/06/21 08:39 Dose: 5 mg Documented by: AMANDA Atorvastatin Calcium (Atorvastatin Calcium 10 Mg Tablet) 10 mg PO DAILY [facility] Last Admin: 12/03/21 07:55 Dose: 10 mg Documented by: VERONICA Dextrose (Dextrose 50 % 25 Gm/50 Ml Vial) 25 gm IVPUSH Q15M PRN PRN Reason: per Hypoglycemia Standing Ord. Diltiazem HCl (Diltiazem Hcl 60 Mg Tablet) 60 mg PO QID [facility]; Protocol Last Admin: 12/06/21 08:39 Dose: 60 mg Documented by: AMANDA Fentanyl (Fentanyl Citrate/Pf 100 Mcg/2 Ml Vial) 12.5 mcg IVPUSH Q4H PRN; Protocol PRN Reason: Tachypnea Haloperidol Lactate (Haloperidol Lactate 5 Mg/Ml Vial) 3 mg IVPUSH TID PRN PRN Reason: Anxiety Last Admin: 12/01/21 20:28 Dose: 3 mg Documented by: SOTO Ampicillin Sodium/Sulbactam (Sodium 3 gm/ Sodium Chloride) 100 mls @ 200 mls/hr IV Q6H [facility] Last Infusion: 12/06/21 05:47 Dose: 0 mls/hr Documented by: DONTRELL Dextrose (D5w) 1,000 mls @ 150 mls/hr IVCONT .Q6H40M [facility] Last Infusion: 12/06/21 11:05 Dose: 0 mls/hr Documented by: AMANDA Insulin Glargine (Insulin Glargine,Hum.Rec.Anlog 100 Unit/Ml 10 Ml Vial) 20 unit SUBCUT DAILY [facility] Last Admin: 12/06/21 08:46 Dose: Not Given Documented by: AMANDA Non-Admin Reason: not taking much po. swallow eval ordered Insulin Human Lispro (Insulin Lispro 100 Unit/Ml 3 Ml Vial) 0 unit SUBCUT QIDACHS [facility]; Protocol Last Admin: 12/06/21 08:37 Dose: 2 unit Documented by: AMANDA Lamotrigine (Lamotrigine 25 Mg Tablet) 50 mg PO BID [facility] Last Admin: 12/06/21 08:39 Dose: 50 mg Documented by: AMANDA Metoprolol Tartrate (Metoprolol Tartrate 25 Mg Tablet) 25 mg PO BID [facility]; Protocol Last Admin: 12/06/21 08:38 Dose: 25 mg Documented by: AMANDA Naloxone HCl (Naloxone Hcl 0.4 Mg/Ml Vial) 0.2 mg IVPUSH Q2M PRN PRN Reason: Excessive sedation or RR < 8 Nitroglycerin (Nitroglycerin 0.4 Mg Tab.Subl) 0.4 mg SUBLINGUAL Q5M PRN PRN Reason: Chest Pain Nystatin (Nystatin Powder 15 Gm Bottle) 1 appl TOPICAL TID [facility]; Protocol Last Admin: 12/06/21 08:47 Dose: 1 appl Documented by: AMANDA Pharmacy Consult (Consult Rx Perform Med Rec) 1 each MISCELLANE ONCE PRN PRN Reason: Consult order Sodium Chloride (0.9 % Sodium Chloride Flush 3 Ml Syringe) 3 ml IVFLUSH QSHIFT [facility] Last Admin: 12/06/21 08:39 Dose: 3 ml Documented by: AMANDA Labs CBC & Chem 7: 12/06/21 05:52 12/06/21 05:52 Labs: Laboratory Results - last 24 hr 12/05/21 12/05/21 12/06/21 16:22 20:10 05:52 MCV 72.5 L MCH 19.2 L MCHC 26.5 L RDW 22.5 H Plt Count 249 MPV 9.8 Absolute Nucleated RBC 0.000 Nucleated RBC % (auto) 0.0 O2 Saturation ABG pH at Pt Temp ABG pH (Temp Correct) ABG pCO2 at Pt Temp ABG pCO2 (Temp Corrct ABG pO2 at Pt Temp ABG pO2 (Temp Correct ABG HCO3 ABG Base Excess (Actual) Anion Gap Estim Creat Clear Calc Estimated GFR POC Glucose 208 H 148 H Random Glucose Calcium 12/06/21 12/06/21 12/06/21 05:52 07:13 10:55 MCV MCH MCHC RDW Plt Count MPV Absolute Nucleated RBC Nucleated RBC % (auto) O2 Saturation 95.0 ABG pH at Pt Temp 7.34 L ABG pH (Temp Correct) 7.34 L ABG pCO2 at Pt Temp 85 H* ABG pCO2 (Temp Corrct 84 H* ABG pO2 at Pt Temp 81 L ABG pO2 (Temp Correct 80 L ABG HCO3 46 H ABG Base Excess (Actual) 17.2 Anion Gap 10 L Estim Creat Clear Calc 65.2 Estimated GFR 46 POC Glucose 157 H Random Glucose 155 H Calcium 8.3 L 12/06/21 11:05 MCV MCH MCHC RDW Plt Count MPV Absolute Nucleated RBC Nucleated RBC % (auto) O2 Saturation ABG pH at Pt Temp ABG pH (Temp Correct) ABG pCO2 at Pt Temp ABG pCO2 (Temp Corrct ABG pO2 at Pt Temp ABG pO2 (Temp Correct ABG HCO3 ABG Base Excess (Actual) Anion Gap Estim Creat Clear Calc Estimated GFR POC Glucose 180 H Random Glucose Calcium Assessment and Plan (1) Acute encephalopathy: Status: Acute (2) Acute respiratory failure: Status: Acute Assessment and Plan: ? 66-year-old lady with underlying alcoholic cirrhosis, dementia, schizoaffective disorder a admitted with acute? exacerbation of underlying congestive heart failure further complicated by AFib with RVR, and development of angioedema requiring intubation for ventilatory support, extubated 09/29/2022.. #Acute respiratory failure secondary to angioedema requiring intubation and ventilatory support for airway protection,? extubated 11/29/2021, respiratory status is declining again ABG 7.33/85/95 BE: 17, get CXR rule out aspiration, tried on BiPAP and yet continue to be very somnolent and therefore discussed with ICU for closer monitoring and may need mechanical ventilation, I discussed this with guardian over the phone I spoke to sign board erector Zia and updated him. # AFib with RVR--variable rate, prsently in 110s -Continue Cardizem CD -Cardiology advises d/c Amio -if needed to add dig for better control -Eliquis for stroke prevention -ask cardiology to help with rate control #Hyponatremia--resolved. #HypERnatremia--likely from fluid water deficit, she has been on IVF with D5 #COPD? exacerbated by pneumonia -Bronchodilators, steroid and Unassyn for pneumonia, fever resolved #DM II--Lantus, SSI and follow sugars #. Schizoaffective disorder ?-Haldol restarted. IM dose given secondary to agitated episode with excellent response #Metabolic Alkalosis--Diamox #HLD--Lipitor #leukocytosis--d/t steroid,, monitor, no more fever #Fluid overload--? heart failure--IV Lasix Discussing with ICU Quality Stroke Does the patient have a stroke diagnosis?: No VTE Prior VTE?: No VTE Risk Level:: Medical - moderate - high VTE Device Contraindication: Treatment Not Indicated VTE Drug Contraindication: N/A - Med Ordered
[2021-12-06 11:13] LABS: ABG Refer to POC result
[2021-12-06] MEDS: Furosemide 40 MG/4 ML VIAL IVPUSH (11:24)
--- NOTE | 2021-12-06 11:31 | PC.NURSE ---
patient placed back on BiPap by RT
--- NOTE | 2021-12-06 11:32 | P.PNNP_ITS ---
Subjective Subjective Date of Service: 12/06/21 Principal diagnosis: dysnatremia Interval history: Seen and edxamined, events noted Sever resp distress this am--RN thinks she may have aspirated Physical Exam Vital Signs: Vital Signs: Last Vital Signs Temp 99.6 F 12/06/21 11:04 Pulse 99 12/06/21 11:04 Resp 45 H 12/06/21 11:15 BP 104/55 L 12/06/21 11:04 Pulse Ox 90 L 12/06/21 11:04 Oxygen Flow Rate 30 12/02/21 00:00 BMI result Body Mass Index 48.9 Const: Other: looks very sick with RR 40, tachypnic rhnochi/wheezes RRR abd obses edema General: cooperative and no acute distress Nutritional Appearance: obese Orientation/consciousness: patient oriented x3 Eyes: General: appearance normal, both eyes and all related structures Sclerae: sclerae normal Pupils: Equal, round and reactive pupils present EOM: EOMs intact bilaterally Neck: Neck: Yes normal visual inspection, Yes no lymphadenopathy, Yes trachea midline and Yes supple Chest: Chest palpation & inspection: normal inspection of the chest Resp: Effort & Inspection: normal respiratory effort Auscultation: clear to auscultation bilaterally Cardio: Palpation: normal PMI Rate: regular rate Rhythm: regular rhythm Heart sounds: S1 normal heart sound present, S2 normal heart sound present, no gallops, no murmurs and no rubs GI: Palpation (GI): Soft to palpation Auscultation: normal bowel sounds Skin: General skin exam: no rashes or lesions noted Lesions: other Neuro: General: patient oriented x3 Cranial nerves: Yes Equal, round and reactive pupils present Cognition (Neuro): normal cognition Extrem: General: Yes normal to inspection and Yes no pedal edema Psych: Mental Status: other Objective Data Labs CBC & Chem 7: 12/06/21 05:52 12/06/21 05:52 Labs: Laboratory Results - last 24 hr 12/05/21 12/05/21 12/06/21 16:22 20:10 05:52 WBC 17.1 H RBC 4.58 Hgb 8.8 L Hct 33.2 L MCV 72.5 L MCH 19.2 L MCHC 26.5 L RDW 22.5 H Plt Count 249 MPV 9.8 Absolute Nucleated RBC 0.000 Nucleated RBC % (auto) 0.0 O2 Saturation ABG pH at Pt Temp ABG pH (Temp Correct) ABG pCO2 at Pt Temp ABG pCO2 (Temp Corrct ABG pO2 at Pt Temp ABG pO2 (Temp Correct ABG HCO3 ABG Base Excess (Actual) Sodium Potassium Chloride Carbon Dioxide Anion Gap BUN Creatinine Estim Creat Clear Calc Estimated GFR POC Glucose 208 H 148 H Random Glucose Calcium 12/06/21 12/06/21 12/06/21 05:52 07:13 10:55 WBC RBC Hgb Hct MCV MCH MCHC RDW Plt Count MPV Absolute Nucleated RBC Nucleated RBC % (auto) O2 Saturation 95.0 ABG pH at Pt Temp 7.34 L ABG pH (Temp Correct) 7.34 L ABG pCO2 at Pt Temp 85 H* ABG pCO2 (Temp Corrct 84 H* ABG pO2 at Pt Temp 81 L ABG pO2 (Temp Correct 80 L ABG HCO3 46 H ABG Base Excess (Actual) 17.2 Sodium 152 H Potassium 3.9 Chloride 108 Carbon Dioxide 38 H Anion Gap 10 L BUN 33 H Creatinine 1.18 Estim Creat Clear Calc 65.2 Estimated GFR 46 POC Glucose 157 H Random Glucose 155 H Calcium 8.3 L 12/06/21 11:05 WBC RBC Hgb Hct MCV MCH MCHC RDW Plt Count MPV Absolute Nucleated RBC Nucleated RBC % (auto) O2 Saturation ABG pH at Pt Temp ABG pH (Temp Correct) ABG pCO2 at Pt Temp ABG pCO2 (Temp Corrct ABG pO2 at Pt Temp ABG pO2 (Temp Correct ABG HCO3 ABG Base Excess (Actual) Sodium Potassium Chloride Carbon Dioxide Anion Gap BUN Creatinine Estim Creat Clear Calc Estimated GFR POC Glucose 180 H Random Glucose Calcium Microbiology Microbiology Results: Microbiology 11/28/21 09:32 Sputum - Suctioned Gram Stain - Final 11/28/21 09:32 Sputum - Suctioned Sputum Culture - Final Kimberly albicans 11/25/21 01:47 Blood - Venous Blood Culture - Final No growth after 5 days. 11/25/21 01:42 Blood - Venous Blood Culture - Final No growth after 5 days. Procedures Date of Service Date of Service: 12/06/21 Assessment & Plan Assessment and plan (1) Atrial fibrillation with RVR: Status: Acute (2) Hyponatremia: Status: Acute (3) Acute hyperkalemia: Status: Acute (4) Dyspnea: Status: Acute (5) Acute anaphylaxis: Status: Acute Assessment and Plan: 66-year-old female with past medical history of alcoholic liver cirrhosis, dementia, hyponatremia presents to the hospital with AFib with RVR Developed HyperNa and getting D5W with SNa remainsing 150 and now acute resp distress 1. HyperNA: earlier in hosp course was hypoNa with grad correction and now hyperNa--poor po intake and on lasix 2. Resp Failure: asp vs CHF vs both REC: IV lasix, abg, ICU eval, cont D5W will follow with team Time Spent With Patient Time: Total time spent is greater than 50% in coordination of care (as trudi chahal) at patient's floor/unit and/or counseling patient: Progress Note: Quality Stroke Does the patient have a stroke diagnosis?: No
--- NOTE | 2021-12-06 12:01 | MHC.CLN ---
F/U DAY 10 WITH MINIMAL PO INTAKE PT IS ON AND OFF BIPAP WITH DIFFICULTY TAKING PO DIET RX: F/L-RECOMMEND PINNER PRINTED CIRCUIT BOARDS EVAL R/T CHEWING/SWALLOWING PROBLEMS NOTED RECOMMEND PPN D10 AA4.25 AT 40ML/HR TO START TO PROVIDE 490KCALS, 41G PROTEIN REPLETE LYTES NEEDED; CHECK TRIG LEVELS
--- NOTE | 2021-12-06 12:07 | PC.NURSE ---
Patient appears more restful with less labored breathing. Seems to be tolerating BiPap well. MD aware.
--- NOTE | 2021-12-06 12:20 | MHC.SL.SWA ---
Speech Pathologist Impression Risk of Aspiration Oralpharyngeal Dysphagia Risk of Aspiration Due to: Poor PO Intake Hx of Recent Extubation Reduced Cognition Dysphasia Diet Status: Downgrade Liquid Consistency and Strategies for Safe Swallow: Liquid Intake Recommendation: NPO Solid Food Consistency: Dietary Recommendations: NPO Additional Modifications to Solid Foods: Recommend NPO strict at this time d/t severe oropharyngeal dysphagia and high aspiration risk. Elevate head of bed 30 degrees to reduce risk of microaspiration and continue frequent oral care at least 4 times daily. INSIDE POLISHER will re-evaluate tomorrow morning. Oral Medication Intake: NPO Supervision While Eating and Drinking for Safe Swallow: PO with INSIDE POLISHER Swallowing Recommended Treatments: Compens. Strategy Educat. Recommendation for Speech: Inpatient Speech Therapy Comment: Frequency/Duration: M-F Certified Histologic Technician Clinican/Clinical Fellow: No Supervisory Statement: I have reviewed and agree with the student/clinical fellow's documentation: N/A Speech Language Pathologist: Lisa Bolton M.A., [facility]
--- NOTE | 2021-12-06 16:06 | W.PM.CCCN ---
History of Present Illness Data of Consult Service Date: 12/06/21 Requesting physician: Fidel James Primary Care Provider: Rony Hogan, DO HPI I was asked by Dr. James to look at Mrs. Reddy [facility] of hypercarbia.? She will be transferred down to the ICU bec of altered mental status with gross ventilatory insufficiency. The patient is a 66-year-old female with past medical history of schizoaffective disorder, obesity, alcoholic cirrhosis, dementia, hyponatremia, CKD, and asthma.? She lives at a longterm and has a guardian. The patient was BIBA to the ED from the longterm on November 24 because palpitations and shortness of breath.? At the scene, EMS found a heart rate between 90-150 in atrial fibrillation. In the ED, she was afebrile, tachycardic in Afib, normotensive, and mildly tachypneic, with a sat of 92% on room air.? White count was 17, hemoglobin 9.8, PT 14/1.3, sodium was 122, BUN and creatinine 14/0.8, bicarb 27, potassium 6.5, BNP was 78. CXR showed mild pulmonary vascular congestion with right basilar patchy opacity and possibly a small left pleural effusion.? Abdom, CT done bec of c/o belly pain showed? no acute findings within the abdomen or pelvis.? Compared to the previous CT in 2018, there was interval increase in size of a fluid attenuating cyst within the right adnexa, measuring up to 5.2 cm,? There was cholelithiasis, anasarca and small ascites.? The lung martinez showed small right pleural effusion with accompanying atelectasis. The patient was admitted to Medicine for management of atrial fibrillation with RVR, possible CHF, hyperkalemia, and hyponatremia.? The atrial fibrillation was managed with diltiazem, metoprolol and Eliquis, the hyponatremia was managed with water restriction and urea, and the hyperkalemia in the usual fashion. Hosp course was marked by agitation that responded well to Haldol.? On November 27, she developed what seemed to be angioedema with respiratory distress and required tracheal intubation.? The precipitating factor was unable to be determined.? Treated in the usual fashion.? Able to be extubated on November 29.? She had persistent AFib with RVR, and significant encephalopathy, thought related to underlying suboptimally controlled schizoaffective disorder.? Amiodarone was added resulting in improved rate control.? Lamictal was added to Haldol resulting in improved behavior.? She was started on Unasyn for aspiration on December 02 and started on Diamox.? The patient was transferred out of the ICU on December 02.? S In Dr. James?s note yesterday, he described her respiratory status as much better and commented that she was more alert and more interactive.? She was using her BiPAP at night.? Sat was 94% on 30% oxygen.? On his exam this morning however her respiratory status was tenuous, she was tachypneic with decreased responsiveness.? Arterial blood gas this morning showed 7.34/85/81/+17 (uncertain FiO2). At Dr. James?s request,? I want up to see her this afternoon.? She is awake but lethargic and completely altered.? I can barely get her to respond to any questions.? Chest excursion with each breath that is minimal.? I checked her sat, in was 93% on 5 L oxygen by nasal cannula.? Frankly I was surprised was that good.? The patient was coughing; I advanced a Yankauer down her throat and she basically had no gag.? Neuro exam was nonfocal. I transfer the patient down to ICU for further resp mx. LABORATORY DATA:? Below.? Notably, white count is 17.1, trending down.? Hemoglobin is 8.8, sodium is 152 (steady since December 03), BUN/creatinine 33/1.1 (slightly increased).? Ammonia level was normal on November 30.? Last LFTs on December 01 were normal. IMPRESSION: 1. Underlying schizoaffective disorder and dementia.? I?m told that at baseline, the patient walks and talks. 2. Clearly now acutely encephalopathic.? Most likely toxic/metabolic.? Identifiable contributing factors include her antipsychotics, the hypercarbia, and the hypernatremia.? No clinical evidence to suggest an acute intracranial event. 3. Acute hypercarbic respiratory failure.? Serum bicarb and venous blood gas pCO2 levels from the 1st days of her hospitalization here suggest that the patient is not a CO2 retainer.? The cause of her hypercarbia is undoubtedly the fact that she?s barely breathing.? Why the latter is the case is unclear at this time.? Certainly, her depressed mental status contributes. 4. KIARA.? It looks to me like her renal indices tania with diuresis.? She needs an echo to look at her right heart and volume status. 5. Given her obesity and head and neck habitus, I would not be surprised if the patient has ANGEL and pulmonary hypertension. Given that her mental status is altered, and that she has minimal gag reflex, she is not a candidate for noninvasive ventilation.? She needs to be intubated. Critical care time (including multiple discussions with Dr. James, extended chart review, and full hospital course summary):? 120+ min [facility] Past Medical History Medical History (Updated 11/30/21 @ 13:42 by Parminder Green MD) Alcoholic cirrhosis of liver Asthma CKD (chronic kidney disease) Hyponatremia Schizoaffective disorder Surgical History Surgical History (Updated 11/25/21 @ 07:10 by Tia Clay MD) No pertinent past surgical history Social History Social History Household Members: None Housing: House Patient Tobacco Use Status: Current everyday Tobacco user service: No Meds Allergies Allergy/AdvReac Type Severity Reaction Status Date / Time lisinopril Allergy Severe Angioedema Verified 12/02/21 16:07 Sulfa (Sulfonamide Allergy Intermediate HIVES Verified 11/24/21 20:49 Antibiotics) Active Medications: Current Medications Acetazolamide (Acetazolamide Sodium 500 Mg Vial) 500 mg IVPUSH BID [facility] Last Admin: 12/06/21 08:36 Dose: 500 mg Documented by: Amlodipine Besylate (Amlodipine Besylate 10 Mg Tablet) 10 mg PO DAILY [facility]; Protocol Last Admin: 12/06/21 08:39 Dose: 10 mg Documented by: Apixaban (Apixaban 5 Mg Tablet) 5 mg PO BID [facility] Last Admin: 12/06/21 08:39 Dose: 5 mg Documented by: Atorvastatin Calcium (Atorvastatin Calcium 10 Mg Tablet) 10 mg PO DAILY [facility] Last Admin: 12/03/21 07:55 Dose: 10 mg Documented by: Dextrose (Dextrose 50 % 25 Gm/50 Ml Vial) 25 gm IVPUSH Q15M PRN PRN Reason: per Hypoglycemia Standing Ord. Diltiazem HCl (Diltiazem Hcl 60 Mg Tablet) 60 mg PO QID [facility]; Protocol Last Admin: 12/06/21 13:55 Dose: Not Given Documented by: Fentanyl (Fentanyl Citrate/Pf 100 Mcg/2 Ml Vial) 12.5 mcg IVPUSH Q4H PRN; Protocol PRN Reason: Tachypnea Haloperidol Lactate (Haloperidol Lactate 5 Mg/Ml Vial) 3 mg IVPUSH TID PRN PRN Reason: Anxiety Last Admin: 12/01/21 20:28 Dose: 3 mg Documented by: Ampicillin Sodium/Sulbactam (Sodium 3 gm/ Sodium Chloride) 100 mls @ 200 mls/hr IV Q6H [facility] Last Infusion: 12/06/21 11:45 Dose: Infused Documented by: Multivitamins 21 ml/ Trace Metals 2 ml/ Amino Acids/Electrolytes/Dextrose 960 mls @ 40 mls/hr IV DAILY@1800 [facility] Stop: 12/07/21 17:59 Insulin Glargine (Insulin Glargine,Hum.Rec.Anlog 100 Unit/Ml 10 Ml Vial) 20 unit SUBCUT DAILY [facility] Last Admin: 12/06/21 08:46 Dose: Not Given Documented by: Insulin Human Lispro (Insulin Lispro 100 Unit/Ml 3 Ml Vial) 0 unit SUBCUT QIDACHS [facility]; Protocol Last Admin: 12/06/21 11:26 Dose: 2 unit Documented by: Lamotrigine (Lamotrigine 25 Mg Tablet) 50 mg PO BID [facility] Last Admin: 12/06/21 08:39 Dose: 50 mg Documented by: Metoprolol Tartrate (Metoprolol Tartrate 25 Mg Tablet) 25 mg PO BID [facility]; Protocol Last Admin: 12/06/21 08:38 Dose: 25 mg Documented by: Naloxone HCl (Naloxone Hcl 0.4 Mg/Ml Vial) 0.2 mg IVPUSH Q2M PRN PRN Reason: Excessive sedation or RR < 8 Nitroglycerin (Nitroglycerin 0.4 Mg Tab.Subl) 0.4 mg SUBLINGUAL Q5M PRN PRN Reason: Chest Pain Nystatin (Nystatin Powder 15 Gm Bottle) 1 appl TOPICAL TID [facility]; Protocol Last Admin: 12/06/21 16:03 Dose: Not Given Documented by: Pharmacy Consult (Consult Rx Perform Med Rec) 1 each MISCELLANE ONCE PRN PRN Reason: Consult order Sodium Chloride (0.9 % Sodium Chloride Flush 3 Ml Syringe) 3 ml IVFLUSH QSHIFT [facility] Last Admin: 12/06/21 08:39 Dose: 3 ml Documented by: Home Medications Medication Instructions Recorded Confirmed Last Taken Type Saccharomyces boulardii 250 mg 250 mg PO BID 11/25/21 11/25/21 11/24/21 History capsule (Florastor) acetaminophen 325 mg tablet 650 mg PO Q4H PRN 11/25/21 11/25/21 11/23/21 History albuterol sulfate 90 mcg/actuation 2 puff INHALATION Q4H PRN 11/25/21 11/25/21 11/22/21 History aerosol inhaler (ProAir HFA) aluminum-mag hydroxide-simethicone 30 ml PO Q4H PRN 11/25/21 11/25/21 11/16/21 History 200 mg-200 mg-20 mg/5 mL oral susp (Morena-Lanta) atorvastatin 10 mg tablet 1 tab PO DAILY 11/25/21 11/25/21 11/24/21 History azathioprine 50 mg tablet 2 tab PO DAILY 11/25/21 11/25/21 11/24/21 History calcitonin (salmon) 200 1 spray INTRANASAL DAILY 11/25/21 11/25/21 11/24/21 History unit/actuation nasal spray calcium carbonate 600 mg-vitamin 1 tab PO DAILY 11/25/21 11/25/21 11/24/21 History D3 5 mcg (200 unit) tablet (Calcium 600 + D(3)) cranberry fruit 450 mg tablet 450 mg PO BID 11/25/21 11/25/21 11/24/21 History (cranberry) cyclobenzaprine 10 mg tablet 1 tab PO Q24H PRN 11/25/21 11/25/21 11/21/21 History docusate sodium 100 mg tablet 100 mg PO BID 11/25/21 11/25/21 11/24/21 History dulaglutide 1.5 mg/0.5 mL 1.5 mg SUBCUT TU 11/25/21 11/25/21 11/23/21 History subcutaneous pen injector (Trulicity) gabapentin 100 mg capsule 1 cap PO TID 11/25/21 11/25/21 11/24/21 History haloperidol 5 mg tablet 5 mg PO BID 11/25/21 11/25/21 11/24/21 History hydroxyzine HCl 25 mg tablet 25 mg PO QID 11/25/21 11/25/21 11/24/21 History insulin detemir U-100 100 unit/mL 110 unit SUBCUT BID@0630,1630 11/25/21 11/25/21 11/24/21 History (3 mL) subcutaneous pen insulin regular human 100 unit/mL 1 sliding scale dose SUBCUT 11/25/21 11/25/21 11/24/21 History injection solution (Novolin R USEASDIRECTD Regular U-100 Insulin) ipratropium 20 mcg-albuterol 100 1 puff INHALATION BID 11/25/21 11/25/21 11/24/21 History mcg/actuation mist for inhalation (Combivent Respimat) lanolin alcohols-mineral 1 appl TOPICAL DAILY 11/25/21 11/25/21 Unknown History oil-w.petrolatum-ceresin topical cream (Minerin Creme) lisinopril 5 mg tablet 5 mg PO DAILY 11/25/21 11/25/21 11/24/21 History menthol 5 % topical patch (Bengay 1 patch TOPICAL DAILY PRN 11/25/21 11/25/21 Unknown History Ultra Strength (menthol)) metformin 1,000 mg tablet 1,000 mg PO BID 11/25/21 11/25/21 11/24/21 History mirtazapine 15 mg tablet 1 tab PO BEDTIME 11/25/21 11/25/21 11/23/21 History multivitamin 1 tab PO DAILY 11/25/21 11/25/21 11/24/21 History nicotine 7 mg/24 hr daily 1 patch TRANSDERMAL Q24H PRN 11/25/21 11/25/21 Unknown History transdermal patch nitrofurantoin macrocrystal 50 mg 1 cap PO BEDTIME 11/25/21 11/25/21 11/23/21 History capsule nitroglycerin 0.4 mg sublingual 0.4 mg SUBLINGUAL Q5M PRN 11/25/21 11/25/21 Unknown History tablet nystatin 100,000 unit/gram topical 1 appl TOPICAL BID 11/25/21 11/25/21 Unknown History powder omeprazole 20 mg tablet,delayed 20 mg PO BID 11/25/21 11/25/21 11/24/21 History release oxycodone-acetaminophen 5 mg-325 1 tab PO QID 11/25/21 11/25/21 11/24/21 History mg tablet sennosides 8.6 mg tablet (senna) 8.6 mg PO DAILY 11/25/21 11/25/21 11/24/21 History sennosides 8.6 mg tablet (senna) 17.2 mg PO BEDTIME 11/25/21 11/25/21 11/23/21 History sitagliptin 100 mg tablet (Januvia) 100 mg PO DAILY 11/25/21 11/25/21 11/24/21 History sodium chloride 0.65 % nasal spray 2 spray INTRANASAL Q4H PRN 11/25/21 11/25/21 11/24/21 History aerosol (Deep Sea Nasal) sodium chloride 1,000 mg soluble 1,000 mg PO TID 11/25/21 11/25/21 11/24/21 History tablet tolterodine 4 mg capsule,extended 4 mg PO DAILY 11/25/21 11/25/21 11/24/21 History release 24 hr Physical Exam Vital Signs: Vital Signs: Last Vital Signs Temp 98.8 F 12/06/21 13:53 Pulse 103 H 12/06/21 13:53 Resp 24 H 12/06/21 13:53 BP 104/57 L 12/06/21 13:53 Pulse Ox 93 12/06/21 13:53 Oxygen Flow Rate 30 12/02/21 00:00 BMI result Body Mass Index 48.9 Results Labs CBC & Chem 7: 12/06/21 05:52 12/06/21 05:52 Labs: Short CBC 12/06/21 Range/Units 05:52 WBC 17.1 H (4.8-10.8) X10*3/uL Hgb 8.8 L (12.0-16.0) g/dl Hct 33.2 L (37.0-47.0) % Plt Count 249 (160-400) X10*3/uL BMP 12/06/21 05:52 Sodium 152 H Potassium 3.9 Chloride 108 Carbon Dioxide 38 H BUN 33 H Creatinine 1.18 Calcium 8.3 L Microbiology Microbiology Results: Microbiology 11/28/21 09:32 Sputum - Suctioned Gram Stain - Final 11/28/21 09:32 Sputum - Suctioned Sputum Culture - Final Kimberly albicans 11/25/21 01:47 Blood - Venous Blood Culture - Final No growth after 5 days. 11/25/21 01:42 Blood - Venous Blood Culture - Final No growth after 5 days. Critical Care Time Critical Care Time (minutes): 120
[2021-12-06 16:33] LABS: Glucose, Whole Blood 92 mg/dL (60-115)
--- NOTE | 2021-12-06 16:47 | PC.NURSE ---
Report given to Candace Robledo at 3pm. Dr. Wilson up to evaluate patient for transfer to ICU.
[2021-12-06 18:17] LABS: VBG Base Excess 17.3 mmol/L; VBG HCO3 46 mmol/L (22-26); VBG pCO2 81 mmHg; VBG pH 7.35 (7.32-7.43); VBG pO2 39 mmHg
[2021-12-06 18:32] LABS: Appearance Urine HAZY; Color Urine YELLOW; Glucose Urine UA NEG (NEG); Leukocyte Esterase Urine NEG (NEG); Nitrite Urine NEG (NEG); Specific Gravity - Urine 1.015 (1.005-1.025); Urine Blood 3+ (NEG); Urine Ketones NEG (NEG); Urine Protein TRACE MG/DL (NEG-TRACE)
[2021-12-06 18:38] LABS: Lactic Acid 0.6 mmol/L (0.5-2.0)
[2021-12-06] MEDS: dilTIAZem HCL 125 MG in 0.9 % Sodium Chloride 100 ML 10 MG IVCONT (18:40)
--- NOTE | 2021-12-06 18:42 | PC.NURSE ---
TRANSFERRED TO ICU AT 1745 ON 6L SOTELO CANNULA. EYES OPEN, MOANING/LAUGHING. DOES NOT TRACK OR ANSWER ANY QUESTIONS/FOLLOW COMMANDS. WEAK COUGH, PERRLA. CORE TEMP 102.9. URINE AND LABS COLLECTED. UNABLE TO SWALLOW PO CARDIZEM - CHANGED TO CARDIZEM GTT. SEE EMAR.
[2021-12-06 18:57] LABS: Bacteria Urine TRACE /LPF; RBC Urine 50-75 /HPF (0); Squamous Epithelial Cell Urine TRACE /LPF
[2021-12-06 19:03] LABS: Venous Blood Gas Refer to POC result
--- NOTE | 2021-12-06 20:35 | W.PM.CCHP ---
Procedures Date of Service Date of Service: 12/06/21 <REBECCA Villafana Last Filed: 12/06/21 22:50> Intubation Intubation Comments: Emergent Intubation under propofol sedation for airway protection as the patient has altered mental status and NO gag reflex, likely aspirating. <REBECCA Villafana - Last Filed: 12/06/21 22:50> Consent for Procedure: Emergent-no informed consent obtained <REBECCA Villafana Last Filed: 12/06/21 22:50> Time out performed: Yes <REBECCA Villafana - Last Filed: 12/06/21 22:50> Sedative: propofol <REBECCA Villafana - Last Filed: 12/06/21 22:50> Mg given: 100 <REBECCA Villafana - Last Filed: 12/06/21 22:50> Paralytic: rocuronium <REBECCA Villafana - Last Filed: 12/06/21 22:50> Mg given: 30 <REBECCA Villafana - Last Filed: 12/06/21 22:50> Laryngoscope: fiber optic video scope <REBECCA Villafana - Last Filed: 12/06/21 22:50> ET tube size: 7.5 <REBECCA Villafana - Last Filed: 12/06/21 22:50> ET tube uncuffed: Yes <REBECCA Villafana - Last Filed: 12/06/21 22:50> Tube secured depth (cm): 24 <REBECCA Villafana Last Filed: 12/06/21 22:50> Tube secured location: lips <REBECCA Villafana - Last Filed: 12/06/21 22:50> Tube placement confirmation: visualized tube passing through cords, equal breath sounds bilaterally and confirmation by capnometry <REBECCA Villafana - Last Filed: 12/06/21 22:50> Patient tolerated procedure: well and no complications <REBECCA Villafana - Last Filed: 12/06/21 22:50> Intubation complications: none and other (cxr shows ET at about 2 cm above the gisselle) <REBECCA Villafana - Last Filed: 12/06/21 22:50>
[2021-12-06] MEDS: propofoL 200 MG/20 ML VIAL 100 MG IVPUSH (20:55)
[2021-12-06] MEDS: Rocuronium Bromide 50 MG/5 ML VIAL 30 MG IVPUSH (20:55)
[2021-12-06] MEDS: propofoL 1,000 MG/100 ML VIAL 29.09 MG IVCONT ×2 (20:56→22:44)
[2021-12-06 21:23] LABS: Glucose, Whole Blood 118 mg/dL (60-115)
[2021-12-06] MEDS: Acetaminophen 325 MG TABLET 650 MG PO (21:55)
[2021-12-06] MEDS: fentaNYL citrate/PF 100 MCG/2 ML VIAL IVPUSH (21:55)
[2021-12-06] MEDS: Chlorhexidine Gluc Oral Rinse 15 ML MOUTHWASH BUCCAL (21:56)
[2021-12-06 22:13] LABS: VBG Base Excess 14.2 mmol/L; VBG HCO3 37 mmol/L (22-26); VBG pCO2 43 mmHg; VBG pH 7.55 (7.32-7.43); VBG pO2 33 mmHg
[2021-12-07] VITALS (29 sets, daily range): BP systolic 104–141; BP diastolic 41–74; PULSE 78–108; RESP 17–24; TEMP 33.4–39.4; O2SAT 91–98; BMI 43.0
[2021-12-07 00:49] LABS: Venous Blood Gas Refer to POC result
[2021-12-07] MEDS: propofoL 1,000 MG/100 ML VIAL 25.45 MG IVCONT ×3 (01:51→09:54)
--- NOTE | 2021-12-07 03:33 | PC.NURSE ---
Upon initial assessment at 1930- pt lethargic, difficult to arouse, responds to noxious stimuli. RR 30-40s, SpO2 90 via 5L NC, respirations shallow, unable to manage secretions, no cough/gag, MD/PA aware, decision made to intubate. At approx 1999, pt given propofol 100 mg IVP and rocuronium 30 mg IVP for RSI. ETT #7.5, 24 cm at lip. On ACVC+ 24/450/+5/40%, EtCO2 initially 70s, trending down. LS wheezy throughout, new order for scheduled duonebs. Moderate amount of thick/cream inline secretions, sputum sample sent. Tmax 103.1, given 650 mg acetaminophen OGT x1 and packed with ice with some effect. Pt sedated on propofol gtt, titrated down as tolerated. Restraints placed for safety- reaches for lines/tubes. Afib on tele, HR 80-110s, cardizem gtt running per emar. Levophed gtt ordered and titrated to maintain MAP > 65. +3 generalized anasarca. TPN running per emar. Arias in place, UOP 30 ml/hr. Rectal tube placed for loose stools/skin integrity. DTI noted to B/L buttocks, macerated, pictures taken, put in chart- will update wound RN. Otherwise, fungal infection to B/L breasts/groin. Nystatin powder and interdry applied. Placed on prevalon mattress system, q2hr reposition.
[2021-12-07] MEDS: Albuterol/Iprat 2.5/0.5MG 3 ML AMPUL.NEB INHALE ×3 (04:23→20:16)
[2021-12-07] MEDS: Ampicillin Sodium/Sulbactam Na 3 GM in 0.9 % Sodium Chloride 100 ML IV ×4 (04:50→23:02)
[2021-12-07] MEDS: dilTIAZem HCL 125 MG in 0.9 % Sodium Chloride 100 ML 10 MG IVCONT ×2 (04:51→17:49)
[2021-12-07 05:28] LABS: VBG Base Excess 10.8 mmol/L; VBG HCO3 32 mmol/L (22-26); VBG pCO2 33 mmHg; VBG pH 7.59 (7.32-7.43); VBG pO2 41 mmHg
[2021-12-07 05:30] LABS: Venous Blood Gas Refer to POC result
--- NOTE | 2021-12-07 05:48 | CA_ITS ---
Transthoracic Echocardiogram Patient (Last, First, Middle): Valentine Reddy, Gender: Female Date of : 1955 Age: 66 Procedure Date: 12/07/2021 Procedure Type: Transthoracic Echocardiogram Location: ICU Height: 167.64 cm Weight: 120.66 kg BSA: 2.26 m2 Heart Rate: bpm BP: 114 / 50 mmHg Milk Pasteurizer: MELA Referring MD: Ralph Wilson MD Associate Trainer: Will Uribe MD Symptoms: Acute respiratory failure with hypotension. Study Quality: Technically Difficult due to 266 LB ECG Rhythm: Atrial Fibrillation Conclusions: - 1. Limited study performed without any valvular Dopplers 2. Normal left ventricular systolic function as well as normal RV systolic function by normal TAPSE 3. Small circumferential pericardial effusion Findings Left Ventricle Normal left ventricular size, thickness, and systolic function. The visually estimated ejection fraction is between 60-65%. Regional wall motion abnormalities can not be excluded due to suboptimal endocardial definition. E/E prime ratio is between 8 and 15 consistent with indeterminate filling pressures. Right Ventricle There is normal right ventricular systolic function. Pericardium/Pleural There is a small circumferential pericardial effusion. Measurements 2D Linear Measurements IVSd: 1.12 0.6-0.9/0.6-1.0 cm LVIDd: 4.90 3.9-5.3/4.2-5.9 cm LVIDd Index: 2.17 2.4-3.2/2.2-3.1 cm/m2 LVIDs: 3.25 2.0-3.6 cm LVPWd: 1.11 0.7-1.1 cm LV Mass: 254.61 67-162/88-224 g LV Mass Index: 112.66 43-95/49-115 g/m2 2D Systolic Function EF 4C: 59.00 >55% EF 2C: 67.20 >55% EF BiP: 63.20 >55% Mitral Valve MV Pk E: 1.33 MV Decel Time: 177.00 E'Lateral: 12.40 E'Medial: 8.92 E/E' Med: 14.90 E/E' Lat: 10.70 PHT: 52.00 MVA PHT: 4.23 Decel Sibley: 7.51 Diastolic Function MV Pk E: 1.33 E'Medial: 8.92 E/E' Med: 14.90 E' Laterial: 12.40 E/E' Lat: 10.70 Tricuspid Valve TR Pk Benson: 3.13 TR Pk Grad: 39.00 Updated in Other Vendor System with Status of Final Will Uribe MD electronically signed on 12/07/2021 1:43:17 PM with status of Final
[2021-12-07 05:50] LABS: Basophils Percent Auto 0.1 % (0-2); NRBC Pct Auto 0.1 /100WBC (0.0-0.2); PLT ABN DIST 1; SCAN SMEAR FLAG 1
[2021-12-07 05:52] LABS: Eosinophils Percent Auto 0.1 % (0-4); Hemoglobin 8.1 g/dl (12.0-16.0); Imm Gran Abs Auto 0.21 X10*3/uL (0.00-0.03); Imm Gran Pct Auto 0.9 % (0.0-0.4); Lymphocytes Absolute Auto 1.2 X10*3/uL (1.2-4.9); Lymphocytes Percent Auto 5.3 % (20-40); MANUAL DIFF FLAG SCAN; Mean Corpuscular Hemoglobin 18.9 pg (27.0-33.0); Mean Corpuscular Volume 69.9 fL (80.0-98.0); Mean Platelet Volume 10.3 fL (9.4-12.3); Monocytes Absolute Auto 1.2 X10*3/uL (0.1-1.2); Monocytes Percent Auto 5.4 % (2-11); Neutrophils Absolute Auto 20.1 x10*3/uL (2.0-8.3); Neutrophils Percent Auto 88.2 % (45-73); Platelet Count 233 X10*3/uL (160-400); Red Blood Count 4.29 X10*6/uL (4.20-5.50); Red Cell Distribution Width 22.6 % (11.0-16.0); White Blood Count 22.8 X10*3/uL (4.8-10.8)
[2021-12-07 06:07] LABS: Alanine Aminotransferase 23 U/L (0-31); Albumin Level 2.5 g/dL (3.5-5.0); Alkaline Phosphatase 54 U/L (39-117); Anion Gap 16 (12-20); Aspartate Amino Transferase 82 U/L (5-31); Bilirubin Total 0.9 mg/dL (0.0-1.0); Blood Urea Nitrogen 38 mg/dL (9-16); Calcium 7.8 mg/dL (8.4-10.2); Carbon Dioxide 32 mmol/L (22-29); Chloride 109 mmol/L (96-108); Creatinine Clr Calc Pharmacy 54.5; Estimated Glomerular Filt Rate 40; Glucose Random 257 mg/dL (60-115); Potassium 2.8 mmol/L (3.3-5.1); Sodium 154 mmol/L (135-145); Total Protein 4.9 g/dL (6.5-8.0)
[2021-12-07 06:11] LABS: SLIDE REVIEW VERIFIED
[2021-12-07] MEDS: Albumin Human 25 % 100 ML IV ×2 (06:34→07:53)
[2021-12-07] MEDS: acetaZOLAMIDE sodium 500 MG VIAL IVPUSH ×3 (06:34→21:39)
[2021-12-07] MEDS: Potassium Chloride Packet 20 MEQ PACKET 40 MEQ PO ×2 (06:42→22:58)
[2021-12-07 07:18] LABS: Glucose, Whole Blood 279 mg/dL (60-115)
[2021-12-07] MEDS: Insulin Lispro 100 UNIT/ML 3 ML VIAL SUBCUT ×4 (07:59→21:39)
[2021-12-07] MEDS: Insulin Glargine,Hum.rec.anlog 100 UNIT/ML 10 ML VIAL 20 UNIT SUBCUT ×2 (07:59→22:36)
[2021-12-07] MEDS: Apixaban 5 MG TABLET PO ×2 (08:00→21:38)
[2021-12-07] MEDS: 0.9 % Sodium Chloride Flush 3 ML SYRINGE IVFLUSH ×2 (08:00→14:51)
[2021-12-07] MEDS: Atorvastatin Calcium 10 MG TABLET PO (08:00)
[2021-12-07] MEDS: Metoprolol Tartrate 25 MG TABLET PO ×2 (08:00→21:39)
[2021-12-07] MEDS: dilTIAZem HCL 60 MG TABLET PO ×4 (08:00→21:38)
[2021-12-07] MEDS: Chlorhexidine Gluc Oral Rinse 15 ML MOUTHWASH BUCCAL ×3 (08:08→21:38)
[2021-12-07] MEDS: Nystatin Powder 15 GM BOTTLE 1 APPL TOPICAL ×3 (08:09→21:39)
[2021-12-07 08:57] LABS: Magnesium 2.4 mg/dL (1.6-2.6); Phosphorus 1.4 mg/dL (2.7-4.5)
--- NOTE | 2021-12-07 09:14 | P.CDIC_ITS ---
CDI Concurrent Query Documentation Clarification: PHYSICIAN'S DOCUMENTATION REQUEST Date of Query: 12/07/21 0914 Patient Name: Valentine Reddy Admit Date: 11/25/21 Dear Doctor, A review of the medical record indicates additional documentation may be needed. Please review below and update the documentation accordingly Verdana 4Bd Risk Factors/Clinical Indicators/Treatments Verdana 4d ICU note 11/29 - CKD Nephrology note 11/29 - CKD ICU note 12/06 - KIARA Cr. 1.18 1.31 Gfr >60 46 40 Bun 33 38 Please clarify which of the following accurately represents the patient's renal status: CKD Specifics to documentation: * Acute renal failure * Acute renal failure on Chronic Kidney Disease (CKD)Stage 1-5 etc. * Other (please specify) * Unable to determine Verdana 4Bd Criteria for KIARA* Stages of Chronic Kidney Disease* Verdana 4d 1. Verdana 4Ud c Verdana 4Bd Leve GFR Increase in serum l c Description c creatinine by ? 0.3 mg/dL A Verdana 4d (?26. G1 Normal or High > 90 5 micromol/L) within 48 hours, or 2. Increase in G2 Mildly decreased 60 ? 89 serum creatinine to ?1.5 times baseline, which is G3a Mildly to 45 ? 59 known or presumed moderately to have occurred decreased within 7 days, or 3. Urine volume G3b Moderately to 30 - 44 <0.5 mL/kg/hour severely for six hours decreased G4 Severely 15 ? 29 decreased G5 Kidney failure < 15 *Source: Kidney Disease: Improving Global Outcomes (KDIGO) 2012 Use of terms such as suspected, likely, concern for, or probable (associated with a specific diagnosis that is being evaluated, monitored, or treated as if it exists) are acceptable and can be coded in the inpatient setting, when documented at the time of discharge. Thank you, Claudia Franklin [facility], CDIS Extension: [phone] Please use your independent medical judgment in providing your response. THIS QUERY IS PART OF THE PERMANENT MEDICAL RECORD Provider Response: Other Other Diagnosis: KIARA
--- NOTE | 2021-12-07 09:14 | MHC.CDI.CONC ---
CDI Concurrent Query Documentation Clarification: PHYSICIAN'S DOCUMENTATION REQUEST Date of Query: 12/07/21 0914 Patient Name: Valentine Reddy Admit Date: 11/25/21 Dear Doctor, A review of the medical record indicates additional documentation may be needed. Please review below and update the documentation accordingly Risk Factors/Clinical Indicators/Treatments ICU note 11/29 - CKD Nephrology note 11/29 - CKD ICU note 12/06 - KIARA Cr. 1.18 1.31 Gfr >60 46 40 Bun 33 38 Please clarify which of the following accurately represents the patient's renal status: CKD Specifics to documentation: Acute renal failure Acute renal failure on Chronic Kidney Disease (CKD)Stage 1-5 etc. Other (please specify) Unable to determine Criteria for KIARA* Stages of Chronic Kidney Disease* 1. Increase in serum creatinine by ? 0.3 mg/dL Level Description GFR (?26.5 micromol/L) within 48 hours, or G1 Normal or High > 90 2. Increase in serum creatinine to ?1.5 times baseline, G2 Mildly decreased 60 ? 89 which is known or presumed to have occurred within 7 days, or G3a Mildly to moderately decreased 45 ? 59 3. Urine volume <0.5 mL/kg/hour for six hours G3b Moderately to severely decreased 30 - 44 G4 Severely decreased 15 ? 29 G5 Kidney failure < 15 *Source: Kidney Disease: Improving Global Outcomes (KDIGO) 2012 Use of terms such as suspected, likely, concern for, or probable (associated with a specific diagnosis that is being evaluated, monitored, or treated as if it exists) are acceptable and can be coded in the inpatient setting, when documented at the time of discharge. Thank you, Claudia Franklin [facility], CDIS Extension: [phone] Please use your independent medical judgment in providing your response. THIS QUERY IS PART OF THE PERMANENT MEDICAL RECORD Provider Response: Other Other Diagnosis: KIARA
--- NOTE | 2021-12-07 10:18 | MHC.CM.PN ---
Pt requuired emergent re intubation on 12/06 and is now back in ICU: Pt is full code and a LTC resident of [facility]. Her legal guardian is an city attorney in [place]. Discussed with ICU provider the need for early notification should the pts code status need to change as it will need to go through the court. Clinical updates remitted to [facility] where pt is a bed hold
[2021-12-07 11:35] LABS: Glucose, Whole Blood 289 mg/dL (60-115)
--- NOTE | 2021-12-07 11:43 | MHC.CM.PN ---
This telegraphic typewriter mechanic placed call to [employer] re: expanding guardianship for code status changes. Recommendation to call guardian and discuss his abitilies within the [place] guardianship. If needed [facility] can expand guardianship within he Cook order in [place] if needed.
--- NOTE | 2021-12-07 12:00 | P.PNNP_ITS ---
Subjective Subjective Date of Service: 12/07/21 Principal diagnosis: dysnatremia Interval history: Seen and examined, events noted Now on vent Physical Exam Vital Signs: Vital Signs: Last Vital Signs Temp 102.9 F H 12/07/21 11:00 Pulse 101 H 12/07/21 11:00 Resp 22 H 12/07/21 11:00 BP 133/44 L 12/07/21 11:00 Pulse Ox 95 12/07/21 11:00 Oxygen Flow Rate 30 12/02/21 00:00 BMI result Body Mass Index 43.0 Const: Other: looks very sick with RR 40, tachypnic rhnochi/wheezes RRR abd obses edema General: cooperative and no acute distress Nutritional Appearance: obese Orientation/consciousness: patient oriented x3 Eyes: General: appearance normal, both eyes and all related structures Sclerae: sclerae normal Pupils: Equal, round and reactive pupils present EOM: EOMs intact bilaterally Neck: Neck: Yes normal visual inspection, Yes no lymphadenopathy, Yes trachea midline and Yes supple Chest: Chest palpation & inspection: normal inspection of the chest Resp: Effort & Inspection: normal respiratory effort Auscultation: clear to auscultation bilaterally Cardio: Palpation: normal PMI Rate: regular rate Rhythm: regular rhythm Heart sounds: S1 normal heart sound present, S2 normal heart sound present, no gallops, no murmurs and no rubs GI: Palpation (GI): Soft to palpation Auscultation: normal bowel sounds Skin: General skin exam: no rashes or lesions noted Lesions: other Neuro: General: patient oriented x3 Cranial nerves: Yes Equal, round and reactive pupils present Cognition (Neuro): normal cognition Extrem: General: Yes normal to inspection and Yes no pedal edema Psych: Mental Status: other Objective Data Labs CBC & Chem 7: 12/07/21 05:20 12/07/21 05:20 Labs: Laboratory Results - last 24 hr 12/06/21 12/06/21 12/06/21 16:28 18:10 18:16 WBC RBC Hgb Hct MCV MCH MCHC RDW Plt Count MPV Immature Gran % (Auto) Neut % (Auto) Lymph % (Auto) [place] % (Auto) Eos % (Auto) Baso % (Auto) Lymph # (Auto) [place] # (Auto) Eos # (Auto) Baso # (Auto) Abs Immat Gran (auto) Absolute Neuts (auto) Absolute Nucleated RBC Nucleated RBC % (auto) Smear Tech's Comments VBG pH 7.35 VBG pCO2 81 VBG pO2 39 VBG HCO3 46 H VBG O2 Saturation 62.0 VBG Base Excess 17.3 Sodium Potassium Chloride Carbon Dioxide Anion Gap BUN Creatinine Estim Creat Clear Calc Estimated GFR POC Glucose 92 Random Glucose Lactic Acid Calcium Phosphorus Magnesium Total Bilirubin AST ALT Alkaline Phosphatase Total Protein Albumin Urine Color YELLOW Urine Appearance HAZY Urine pH 6.0 Ur Specific [place] 1.015 Urine Protein TRACE Urine Glucose (UA) NEG Urine Ketones NEG Urine Blood 3+ H Urine Nitrite NEG Ur Leukocyte Esterase NEG Urine RBC 50-75 H Urine WBC 1-4 Ur Squamous Epith Cells TRACE Urine Bacteria TRACE 12/06/21 12/06/21 12/06/21 18:17 21:19 22:01 WBC RBC Hgb Hct MCV MCH MCHC RDW Plt Count MPV Immature Gran % (Auto) Neut % (Auto) Lymph % (Auto) [place] % (Auto) Eos % (Auto) Baso % (Auto) Lymph # (Auto) [place] # (Auto) Eos # (Auto) Baso # (Auto) Abs Immat Gran (auto) Absolute Neuts (auto) Absolute Nucleated RBC Nucleated RBC % (auto) Smear Tech's Comments VBG pH 7.55 H VBG pCO2 43 VBG pO2 33 VBG HCO3 37 H VBG O2 Saturation 66.0 VBG Base Excess 14.2 Sodium Potassium Chloride Carbon Dioxide Anion Gap BUN Creatinine Estim Creat Clear Calc Estimated GFR POC Glucose 118 H Random Glucose Lactic Acid 0.6 Calcium Phosphorus Magnesium Total Bilirubin AST ALT Alkaline Phosphatase Total Protein Albumin Urine Color Urine Appearance Urine pH Ur Specific [place] Urine Protein Urine Glucose (UA) Urine Ketones Urine Blood Urine Nitrite Ur Leukocyte Esterase Urine RBC Urine WBC Ur Squamous Epith Cells Urine Bacteria 12/07/21 12/07/21 12/07/21 05:20 05:20 05:20 WBC 22.8 H RBC 4.29 Hgb 8.1 L Hct 30.0 L MCV 69.9 L MCH 18.9 L MCHC 27.0 L RDW 22.6 H Plt Count 233 MPV 10.3 Immature Gran % (Auto) 0.9 H Neut % (Auto) 88.2 H Lymph % (Auto) 5.3 L [place] % (Auto) 5.4 Eos % (Auto) 0.1 Baso % (Auto) 0.1 Lymph # (Auto) 1.2 [place] # (Auto) 1.2 Eos # (Auto) 0.0 Baso # (Auto) 0.0 Abs Immat Gran (auto) 0.21 H Absolute Neuts (auto) 20.1 H Absolute Nucleated RBC 0.030 H Nucleated RBC % (auto) 0.1 Smear Tech's Comments VERIFIED VBG pH 7.59 H VBG pCO2 33 VBG pO2 41 VBG HCO3 32 H VBG O2 Saturation 79.0 VBG Base Excess 10.8 Sodium 154 H Potassium 2.8 L D Chloride 109 H Carbon Dioxide 32 H Anion Gap 16 BUN 38 H Creatinine 1.31 Estim Creat Clear Calc 54.5 Estimated GFR 40 POC Glucose Random Glucose 257 H Lactic Acid Calcium 7.8 L D Phosphorus 1.4 L Magnesium 2.4 Total Bilirubin 0.9 AST 82 H ALT 23 Alkaline Phosphatase 54 D Total Protein 4.9 L D Albumin 2.5 L D Urine Color Urine Appearance Urine pH Ur Specific [place] Urine Protein Urine Glucose (UA) Urine Ketones Urine Blood Urine Nitrite Ur Leukocyte Esterase Urine RBC Urine WBC Ur Squamous Epith Cells Urine Bacteria 12/07/21 12/07/21 07:15 11:32 WBC RBC Hgb Hct MCV MCH MCHC RDW Plt Count MPV Immature Gran % (Auto) Neut % (Auto) Lymph % (Auto) [place] % (Auto) Eos % (Auto) Baso % (Auto) Lymph # (Auto) [place] # (Auto) Eos # (Auto) Baso # (Auto) Abs Immat Gran (auto) Absolute Neuts (auto) Absolute Nucleated RBC Nucleated RBC % (auto) Smear Tech's Comments VBG pH VBG pCO2 VBG pO2 VBG HCO3 VBG O2 Saturation VBG Base Excess Sodium Potassium Chloride Carbon Dioxide Anion Gap BUN Creatinine Estim Creat Clear Calc Estimated GFR POC Glucose 279 H 289 H Random Glucose Lactic Acid Calcium Phosphorus Magnesium Total Bilirubin AST ALT Alkaline Phosphatase Total Protein Albumin Urine Color Urine Appearance Urine pH Ur Specific [place] Urine Protein Urine Glucose (UA) Urine Ketones Urine Blood Urine Nitrite Ur Leukocyte Esterase Urine RBC Urine WBC Ur Squamous Epith Cells Urine Bacteria Microbiology Microbiology Results: Microbiology 12/06/21 18:16 Urine Catheterized - Arias Catheter Urine Culture - Preliminary No growth to date. 12/06/21 20:12 Sputum - Suctioned Gram Stain - Final 12/06/21 20:12 Sputum - Suctioned Sputum Culture - Preliminary No growth to date. 12/05/21 21:20 Blood - Venous Blood Culture - Preliminary No growth after 24 hours. 12/05/21 21:20 Blood - Venous Blood Culture - Preliminary No growth after 24 hours. 11/28/21 09:32 Sputum - Suctioned Gram Stain - Final 11/28/21 09:32 Sputum - Suctioned Sputum Culture - Final Kimberly albicans 11/25/21 01:47 Blood - Venous Blood Culture - Final No growth after 5 days. 11/25/21 01:42 Blood - Venous Blood Culture - Final No growth after 5 days. Procedures Date of Service Date of Service: 12/07/21 Assessment & Plan Assessment and plan (1) Atrial fibrillation with RVR: Status: Acute (2) Hyponatremia: Status: Acute (3) Acute hyperkalemia: Status: Acute (4) Dyspnea: Status: Acute (5) Acute anaphylaxis: Status: Acute Assessment and Plan: 66-year-old female with past medical history of alcoholic liver cirrhosis, dementia, hyponatremia presents to the hospital with AFib with RVR Developed HyperNa and getting D5W with SNa remainsing 150 and now acute resp distress 1. HyperNA: earlier in hosp course was hypoNa with grad correction and now hyp Mitzi--poor po intake and on lasix 2. Resp Failure: now on vent 3. A/B: metabolic alk with HCO3 decr now down to 32 4. HypoK 5. Vol: ongoing assessent re need for diuretics vs IVF REC: replace K; replace FWD via NGT; d/c diamox for now will follow with team Time Spent With Patient Time: Total time spent is greater than 50% in coordination of care (as documented) at patient's floor/unit and/or counseling patient: Progress Note: Quality Stroke Does the patient have a stroke diagnosis?: No
--- NOTE | 2021-12-07 12:58 | MHC.SLORD ---
Speech Language Pathology Order Status: Attempted to see PT this am for p.o. trials (pt currently npo). Pt had been intubated this a.m. was in ICU. Will follow status.
[2021-12-07] MEDS: Sodium,Potassium Phosphates POWD.PACK 2 PACKET G-TUBE ×3 (13:34→17:54)
[2021-12-07] MEDS: propofoL 1,000 MG/100 ML VIAL 21.82 MG IVCONT ×2 (14:38→17:45)
[2021-12-07 17:47] LABS: Glucose, Whole Blood 290 mg/dL (60-115)
--- NOTE | 2021-12-07 20:51 | PM.CCPN ---
Subjective Subjective Date of Service: 12/07/21 Interval History: Mrs. Reddy was transferred down to the ICU yesterday (Dec 06) bec of altered mental status with gross ventilatory insufficiency. The patient is a 66-year-old female with past medical history of schizoaffective disorder, obesity, alcoholic cirrhosis, dementia, hyponatremia, CKD, and asthma.? She lives at [facility] and has a guardian. The patient was BIBA to the ED from the longterm on November 24 because palpitations and shortness of breath.? At the scene, EMS found a heart rate between 90-150 in atrial fibrillation. In the ED, she was afebrile, tachycardic in Afib, normotensive, and mildly tachypneic, with a sat of 92% on room air.? White count was 17, hemoglobin 9.8, PT 14/1.3, sodium was 122, BUN and creatinine 14/0.8, bicarb 27, potassium 6.5, BNP was 78. CXR showed mild pulmonary vascular congestion with right basilar patchy opacity and possibly a small left pleural effusion.? Abdom, CT done bec of c/o belly pain showed? no acute findings within the abdomen or pelvis.? Compared to the previous CT in 2018, there was interval increase in size of a fluid attenuating cyst within the right adnexa, measuring up to 5.2 cm,? There was cholelithiasis, anasarca and small ascites.? The lung martinez showed small right pleural effusion with accompanying atelectasis. The patient was admitted to Medicine for management of atrial fibrillation with RVR, possible CHF, hyperkalemia, and hyponatremia.? The atrial fibrillation was managed with diltiazem, metoprolol and Eliquis, the hyponatremia was managed with water restriction and urea, and the hyperkalemia in the usual fashion. Hosp course was marked by agitation that responded well to giving her the dose of Haldol that she was taking at [facility].? On November 27, she developed what seemed to be angioedema with respiratory distress and required tracheal intubation.? The precipitating factor was unable to be determined.? Treated in the usual fashion.? Able to be extubated on November 29.? She had persistent AFib with RVR, and significant encephalopathy, thought related to underlying suboptimally controlled schizoaffective disorder.? Amiodarone was added resulting in improved rate control.? Lamictal was added to Haldol resulting in improved behavior.? She was started on Unasyn for aspiration on December 02 and started on Diamox.? The patient was transferred out of the ICU on December 02. In Dr. James?s note of Dec 05, he described her respiratory status as much better and commented that she was more alert and more interactive.? She was using her BiPAP at night.? Sat was 94% on 30% oxygen.? On his exam yesterday morning (Dec 06) however, her respiratory status was tenuous, she was tachypneic with decreased responsiveness.? Arterial blood gas showed 7.34/85/81/+17 (uncertain FiO2).? When I was called to see her, she was awake but lethargic and completely altered, barely resonding to any questions.? Chest excursion with each breath was minimal.? Sat was 93% on 5 L oxygen by nasal cannula.? The patient was coughing and had no gag response to deep sxn with a Yankauer.? Neuro exam was nonfocal. Other labs were generally unremarkable.? The patient was transferred down to the ICU and the trachea was intubated.? The post intubation CXR seems to show left mid and lower lung collapse, with central pulmonary vascular prominence.? Comparing this film to the for other films in her folder between yesterday morning and going back to November 24, each film seems to show more and more of the left mid and lower lung with the left lung most fully expanded on the film from November 24. Overnight we stopped the Lamictal and increased her Diamox.? The Unasyn was continued.? She was given IV diltiazem for rate control.? She was put on propofol and fentanyl for sedation. During the day today, on just propofol 30 mcg, she was arousable and would make eye contact and seemed angry.? Moving all her extremities.? Tmax 102.9?.? HR 90, probably Aflutter, 3:1 block.? BP 140/50 on Levophed 0.08ug, Dilt 10mg gtt.? On VC+ 22/450cc/40%/+5, RR is 22, Ve 9.5 L, PIP 30, ETCO2 31, Sat 96%.? This morning?s CVBG showed 7.59/33/+10.? PERRL, about 3mm.? No JVD at 30 degrees.? Chest is clear to auscultation, with normal expiratory phase.? Heart rate and rhythm are regular with normal-sounding S1, and S2, with no murmur or gallops.? The abdomen is obese, and benign.? She has about 2+ anasarca. LABORATORY DATA:? As below.? Notably, white count up to 22.8.? Sodium is 154, potassium down to 2.8, BUN/creatinine up slightly to 38/1.3, POCs running about 270, phosphorus 1.4, albumin 2.5. MICROBIOLOGY:? Urinalysis from 12/06 negative.? Sputum culture from 12/06 shows no polys, no organisms.? Blood cultures from 12/05 no growth so far. ECHOCARDIOGRAM done by the tool technician today.? I watched at the bedside.? My interpretation: Image quality:? Excellent.? Findings:? Normal LV wall thickness, size, function.? Normal RV size and function.? Tricuspid continuous-wave Doppler measured 3.1 m/sec (gradient 38mm).? IVC 2.2 cm with limited insp collapse.? Estim CVP 15cm.? Estim RVSP 53mm. IMPRESSION: 1. Underlying schizoaffective disorder and dementia.? I?m told that at baseline, the patient walks and talks.? Will find out more information from Dr. Hogan. 2. Clearly now acutely encephalopathic.? Most likely toxic/metabolic.? Identifiable contributing factors include her antipsychotics, the hypercarbia, and the hypernatremia.? No clinical evidence to suggest an acute intracranial event.? We d/c?d the Lamictal.? The hypecarbia is repaired.? And we?re working on the hypernatremia. ? ?The patient is going for a chest CT.? So even though I am very confident that there is nothing in her head accounting for her altered mental status, given the difficulty getting her to a head CT, we might as well do it now just to make sure. 3. Acute hypercarbic respiratory failure.? Serum bicarb and venous blood gas pCO2 levels from the 1st days of her hospitalization here suggest that the patient is not a CO2 retainer.? The cause of her hypercarbia is undoubtedly the fact that she?s barely breathing.? Why the latter is the case is unclear at this time.? Certainly, her depressed mental status contributes.? Once we correct her hypernatremia, we?ll see how she does on PSV.? Right now she?s being overventilated.? I cut the VC rate down to 14 and her spont RR is now 16-17 4. Left lower and mid lung collapse.? We?ll send her to a chest CT to make sure that she didn?t aspirate something. 5. KIARA.? Her renal indices tania with diuresis.? Echo shows moderate pulmon HTN.? It?s almost a certainty that she has right heart failure and cardiorenal syndrome.? The echo shows that her intravascular compartment is volume overloaded.? Her clinical exam shows that she is total body probably at least 10 L ahead. But I?m not sure how much we can get off.? I?ll ask renal to help. 6. Afib/flutter.? Rate is controlled on the dilt and the metoprolol.? I?m certainly not going to try to cardiovert her. 7. Given her obesity and head and neck habitus, I would not be surprised if the patient has ANGEL, and consequent pulmonary hypertension. 8. ID:? This is day 5 of the Unasyn.? Her CXRs don?t show any aspiration pneumonia, but we?ll send her for a CT.? She?s febrile with an elevated WBC.? Very unlikely that the Unasyn is doing her any good.? Will prob d/c tomorrow. 9. Metabolic:? Replete potassium and phosphate. Critical Care Time (minutes): 70 Physical Exam Vital Signs: Vital Signs: Last Vital Signs Temp 101.5 F H 12/07/21 20:00 Pulse 78 12/07/21 20:17 Resp 22 H 12/07/21 20:17 BP 137/58 L 12/07/21 20:00 Pulse Ox 96 12/07/21 20:00 Oxygen Flow Rate 30 12/02/21 00:00 BMI result Body Mass Index 43.0 Objective Data Labs CBC & Chem 7: 12/07/21 05:20 12/07/21 05:20 Labs: Laboratory Results - last 24 hr 01/24/22 01/24/22 01/25/22 21:19 22:01 05:20 WBC 22.8 H RBC 4.29 Hgb 8.1 L Hct 30.0 L MCV 69.9 L MCH 18.9 L MCHC 27.0 L RDW 22.6 H Plt Count 233 MPV 10.3 Immature Gran % (Auto) 0.9 H Neut % (Auto) 88.2 H Lymph % (Auto) 5.3 L [place] % (Auto) 5.4 Eos % (Auto) 0.1 Baso % (Auto) 0.1 Lymph # (Auto) 1.2 [place] # (Auto) 1.2 Eos # (Auto) 0.0 Baso # (Auto) 0.0 Abs Immat Gran (auto) 0.21 H Absolute Neuts (auto) 20.1 H Absolute Nucleated RBC 0.030 H Nucleated RBC % (auto) 0.1 Smear Tech's Comments VERIFIED VBG pH 7.55 H VBG pCO2 43 VBG pO2 33 VBG HCO3 37 H VBG O2 Saturation 66.0 VBG Base Excess 14.2 Sodium Potassium Chloride Carbon Dioxide Anion Gap BUN Creatinine Estim Creat Clear Calc Estimated GFR POC Glucose 118 H Random Glucose Calcium Phosphorus Magnesium Total Bilirubin AST ALT Alkaline Phosphatase Total Protein Albumin 12/07/21 12/07/21 12/07/21 05:20 05:20 07:15 WBC RBC Hgb Hct MCV MCH MCHC RDW Plt Count MPV Immature Gran % (Auto) Neut % (Auto) Lymph % (Auto) [place] % (Auto) Eos % (Auto) Baso % (Auto) Lymph # (Auto) [place] # (Auto) Eos # (Auto) Baso # (Auto) Abs Immat Gran (auto) Absolute Neuts (auto) Absolute Nucleated RBC Nucleated RBC % (auto) Smear Tech's Comments VBG pH 7.59 H VBG pCO2 33 VBG pO2 41 VBG HCO3 32 H VBG O2 Saturation 79.0 VBG Base Excess 10.8 Sodium 154 H Potassium 2.8 L D Chloride 109 H Carbon Dioxide 32 H Anion Gap 16 BUN 38 H Creatinine 1.31 Estim Creat Clear Calc 54.5 Estimated GFR 40 POC Glucose 279 H Random Glucose 257 H Calcium 7.8 L D Phosphorus 1.4 L Magnesium 2.4 Total Bilirubin 0.9 AST 82 H ALT 23 Alkaline Phosphatase 54 D Total Protein 4.9 L D Albumin 2.5 L D 12/07/21 12/07/21 11:32 17:43 WBC RBC Hgb Hct MCV MCH MCHC RDW Plt Count MPV Immature Gran % (Auto) Neut % (Auto) Lymph % (Auto) [place] % (Auto) Eos % (Auto) Baso % (Auto) Lymph # (Auto) [place] # (Auto) Eos # (Auto) Baso # (Auto) Abs Immat Gran (auto) Absolute Neuts (auto) Absolute Nucleated RBC Nucleated RBC % (auto) Smear Tech's Comments VBG pH VBG pCO2 VBG pO2 VBG HCO3 VBG O2 Saturation VBG Base Excess Sodium Potassium Chloride Carbon Dioxide Anion Gap BUN Creatinine Estim Creat Clear Calc Estimated GFR POC Glucose 289 H 290 H Random Glucose Calcium Phosphorus Magnesium Total Bilirubin AST ALT Alkaline Phosphatase Total Protein Albumin Microbiology Microbiology Results: Microbiology 12/06/21 18:16 Urine Catheterized - Arias Catheter Urine Culture - Preliminary No growth to date. 12/06/21 20:12 Sputum - Suctioned Gram Stain - Final 12/06/21 20:12 Sputum - Suctioned Sputum Culture - Preliminary No growth to date. 12/05/21 21:20 Blood - Venous Blood Culture - Preliminary No growth after 24 hours. 12/05/21 21:20 Blood - Venous Blood Culture - Preliminary No growth after 24 hours. 11/28/21 09:32 Sputum - Suctioned Gram Stain - Final 11/28/21 09:32 Sputum - Suctioned Sputum Culture - Final Kimberly albicans 11/25/21 01:47 Blood - Venous Blood Culture - Final No growth after 5 days. 11/25/21 01:42 Blood - Venous Blood Culture - Final No growth after 5 days. Quality Stroke Does the patient have a stroke diagnosis?: No VTE Prior VTE?: No VTE Risk Level:: Medical - moderate - high VTE Device Contraindication: Treatment Not Indicated VTE Drug Contraindication: N/A - Med Ordered Critical Care Time Critical Care Time (minutes): 60
[2021-12-07] MEDS: propofoL 1,000 MG/100 ML VIAL 29.09 MG IVCONT ×2 (21:11→23:27)
[2021-12-07 21:23] LABS: Glucose, Whole Blood 282 mg/dL (60-115)
[2021-12-07 21:29] LABS: Anion Gap 15 (12-20); Blood Urea Nitrogen 32 mg/dL (9-16); Calcium 7.7 mg/dL (8.4-10.2); Carbon Dioxide 29 mmol/L (22-29); Chloride 111 mmol/L (96-108); Estimated Glomerular Filt Rate 45; Glucose Random 296 mg/dL (60-115); Phosphorus 1.5 mg/dL (2.7-4.5); Potassium 2.5 mmol/L (3.3-5.1); Sodium 152 mmol/L (135-145)
[2021-12-07] MEDS: Dextrose 5 % 1,000 ML 50 ML IVCONT (22:38)
[2021-12-08] VITALS (35 sets, daily range): BP systolic 98–146; BP diastolic 41–71; PULSE 16–98; RESP 15–38; TEMP 33.8–38.8; O2SAT 5–99; BMI 58.6
[2021-12-08] MEDS: Albuterol/Iprat 2.5/0.5MG 3 ML AMPUL.NEB INHALE ×4 (00:43→23:15)
[2021-12-08 01:30] LABS: Glucose, Whole Blood 213 mg/dL (60-115)
[2021-12-08] MEDS: Potassium Chloride Packet 20 MEQ PACKET 40 MEQ PO ×3 (01:41→15:46)
[2021-12-08] MEDS: propofoL 1,000 MG/100 ML VIAL 29.09 MG IVCONT ×7 (02:52→23:44)
[2021-12-08 06:16] LABS: Alanine Aminotransferase 23 U/L (0-31); Albumin Level 2.8 g/dL (3.5-5.0); Anion Gap 12 (12-20); Aspartate Amino Transferase 72 U/L (5-31); B Type Natriuretic Peptide 117 pg/mL (<100); Bilirubin Total 0.5 mg/dL (0.0-1.0); Blood Urea Nitrogen 31 mg/dL (9-16); Calcium 7.3 mg/dL (8.4-10.2); Carbon Dioxide 29 mmol/L (22-29); Chloride 111 mmol/L (96-108); Creatinine Clr Calc Pharmacy 71.3; Estimated Glomerular Filt Rate 44; Glucose Random 268 mg/dL (60-115); Phosphorus 3.1 mg/dL (2.7-4.5); Sodium 149 mmol/L (135-145)
[2021-12-08] MEDS: dilTIAZem HCL 125 MG in 0.9 % Sodium Chloride 100 ML 10 MG IVCONT (06:16)
[2021-12-08 06:17] LABS: Alkaline Phosphatase 49 U/L (39-117)
[2021-12-08] MEDS: acetaZOLAMIDE sodium 500 MG VIAL IVPUSH ×2 (06:19→13:21)
[2021-12-08] MEDS: Ampicillin Sodium/Sulbactam Na 3 GM in 0.9 % Sodium Chloride 100 ML IV (06:23)
[2021-12-08 06:41] LABS: Glucose, Whole Blood 253 mg/dL (60-115)
[2021-12-08 07:35] LABS: Glucose, Whole Blood 254 mg/dL (60-115)
[2021-12-08] MEDS: Apixaban 5 MG TABLET PO ×2 (07:42→20:20)
[2021-12-08] MEDS: dilTIAZem HCL 60 MG TABLET PO ×4 (07:42→20:20)
[2021-12-08] MEDS: Atorvastatin Calcium 10 MG TABLET PO (07:42)
[2021-12-08] MEDS: 0.9 % Sodium Chloride Flush 3 ML SYRINGE IVFLUSH ×2 (07:42→15:43)
[2021-12-08] MEDS: Metoprolol Tartrate 25 MG TABLET PO ×2 (07:42→23:47)
[2021-12-08] MEDS: Chlorhexidine Gluc Oral Rinse 15 ML MOUTHWASH BUCCAL ×3 (07:42→20:20)
[2021-12-08] MEDS: Nystatin Powder 15 GM BOTTLE 1 APPL TOPICAL ×3 (07:43→23:54)
[2021-12-08] MEDS: amLODIPine Besylate 10 MG TABLET PO (07:43)
[2021-12-08] MEDS: Insulin Lispro 100 UNIT/ML 3 ML VIAL SUBCUT ×4 (07:46→23:45)
[2021-12-08 08:13] LABS: VBG Base Excess 6.5 mmol/L; VBG HCO3 30 mmol/L (22-26); VBG pCO2 39 mmHg; VBG pH 7.49 (7.32-7.43); VBG pO2 51 mmHg
[2021-12-08 08:30] LABS: Venous Blood Gas Refer to POC result
[2021-12-08] MEDS: Insulin Glargine,Hum.rec.anlog 100 UNIT/ML 10 ML VIAL 20 UNIT SUBCUT ×2 (09:48→20:20)
--- NOTE | 2021-12-08 10:07 | MHC.CLN ---
F/U PT IS NOW INTUBATED AND SEDATED PT IS CURRENTLY RECEIVING TF PROMOTE AT MAX GOAL RATE 30ML/HR WITH 300CC FREE WATER FLUSHES Q 4 HOURS PROVIDES 720KCALS (1488KCALS WITH SEDATION; 25KCALS/KG BASED ON IBW), 45G PROTEIN (.76G/KG), 2404ML TOTAL WATER FROM FORMULA AND FLUSHES (41ML/KG BASED ON IBW) MONITOR TOLERANCE, RESIDUALS AND LYTES PT IS AT POTENTIAL RISK FOR RE-FEEDING R/T 10 DAYS NPO STATUS-CHECK K+, PHOS AND MG NOTED DTI BILAT BUTT REPORTED BY NURSING-WILL INCREASE PROTEIN SLOWLY TO PROMOTE WOUND HEALING
--- NOTE | 2021-12-08 11:26 | P.PNCC_ITS ---
Subjective Subjective Date of Service: 12/08/21 Interval History: Mrs. Reddy was transferred down to the ICU yesterday (Dec 06) bec of altered mental status with gross ventilatory insufficiency. The patient is a 66-year-old female with past medical history of schizoaffective disorder, obesity, alcoholic cirrhosis, dementia, hyponatremia, and asthma. She lives at [facility] and has a guardian.? She is well known by Dr. Rony Hogan.? Spoke with him at length today, and the nurses spoke with the [facility] staff. They all told us that she walks and talks and is a regular person. The patient was BIBA to the ED from the alf on November 24 because palpitations and shortness of breath.? At the scene, EMS found a heart rate between 90-150 in atrial fibrillation. In the ED, she was afebrile, tachycardic in Afib, normotensive, and mildly tachypneic, with a sat of 92% on room air.? White count was 17, hemoglobin 9.8, PT 14/1.3, sodium was 122, BUN and creatinine 14/0.8, bicarb 27, potassium 6.5, BNP was 78. CXR showed mild pulmonary vascular congestion with right basilar patchy opacity and possibly a small left pleural effusion.? Abdom, CT done bec of c/o belly pain showed? no acute findings within the abdomen or pelvis.? Compared to the previous CT in 2018, there was interval increase in size of a fluid attenuating cyst within the right adnexa, measuring up to 5.2 cm,? There was cholelithiasis, anasarca and small ascites.? The lung martinez showed small right pleural effusion with accompanying atelectasis. The patient was admitted to Medicine for management of atrial fibrillation with RVR, possible CHF, hyperkalemia, and hyponatremia.? The atrial fibrillation was managed with diltiazem, metoprolol and Eliquis, the hyponatremia was managed with water restriction and urea, and the hyperkalemia in the usual fashion. Hosp course was marked by agitation that responded well to giving her the dose of Haldol that she was taking at [facility].? On November 27, she developed what seemed to be angioedema with respiratory distress and required tracheal intubation.? The precipitating factor was unable to be determined.? Treated in the usual fashion.? Able to be extubated on November 29.? She had persistent AFib with RVR, and significant encephalopathy, thought related to underlying suboptimally controlled schizoaffective disorder.? Amiodarone was added resulting in improved rate control.? Lamictal was added to Haldol resulting in improved behavior.? She was started on Unasyn for aspiration on December 02 and started on Diamox.? The patient was transferred out of the ICU on December 02. In Dr. James?s note of Dec 05, he described her respiratory status as much better and commented that she was more alert and more interactive.? She was using her BiPAP at night.? Sat was 94% on 30% oxygen.? On his exam on the morning of Dec 06, however, her respiratory status was tenuous, she was tachypneic with decreased responsiveness.? Arterial blood gas showed 7.34/85/81/+17 (uncertain FiO2).? When I was called to see her, eyes were open, but she was lethargic and completely altered, barely resonding to any questions.? Chest excursion with each breath was minimal.? Sat was 93% on 5 L oxygen by nasal cannula.? The patient was coughing and had no gag response to deep sxn with a Yankauer.? Neuro exam was nonfocal. Other labs were generally unremarkable.? The patient was transferred down to the ICU and the trachea was intubated.? The post intubation CXR showed left mid and lower lung collapse, with central pulmonary vascular prominence.? Comparing this film to the for other films in her folder between yesterday morning and going back to November 24, each film seems to show more and more of the left mid and lower lung with the left lung most fully expanded on the film from November 24. Overnight we stopped the Lamictal and the Haldol and increased her Diamox.? The Unasyn was continued.? She was given IV diltiazem for rate control.? She was put on propofol and fentanyl for sedation. Yesterday, we sent her for chest CT because of the left lower lobe collapse, and head CT because of the altered mental status.? Head CT was unremarkable.? Chest CT shows that the endotracheal tube was into the takeoff of the right mainstem bronchus.? There is left lower lobe collapse and some patchy infiltrates in the right upper lobe and right middle lobe.? The endotracheal tube was pulled back.? Incidentally noted was a dilated main pulmonary artery, suggestive of pulmonary hypertension. We turned the propofol off this afternoon.? Eyes opened fairly quickly, but she is completely noninteractive after one hour.? Eyes just staring up at the ceiling.? No tracking, no response to confrontation.? She does have purposeful withdrawal to painful stimulation.? T-max today 101.8.? HR 86, Afib.? BP 103/46 on Levophed 0.05 ug, diltiazem 10 mg/hour.? She is also on diltiazem 60 mg qid and metoprolol 25 mg bid.? On PSV 20/30%/+8, RR is 20, Vt 400cc, Ve 8 L, PIP 28 cm, ETCO2 31 mm, sat 97%.? This morning's CVBG showed 7.49/39/+6.? PER, about 4mm.? No JVD at 30 degrees.? Chest is clear to auscultation, with normal expiratory phase.? Heart rate and rhythm are irregular with normal-sounding S1, and S2, with no murmur or gallops.? The abdomen is obese, and benign.? She has about 2+ anasarca. I examined the patient?s DTI on both her midline buttocks this morning with Dr. Jiménez.? About a 4-5cm diam purpuric area on the midline of both buttocks.? No fluctulent areas.? These are pressure injuries.? The nurses are managing wound appropriately, and the patient is being followed by the wound nurse.? We took a culture today. LABORATORY DATA:? As below.? Notably, white count is down slightly.? Hb down to 7.4.? Platelet count dropping slowly.? Sodium down to 149 on the D5W, BUN/creatinine down slightly, POCs running about 250, BNP down to 117 MICROBIOLOGY:? Urinalysis from 12/06 negative.? Sputum culture from 12/06 shows no polys, no organisms.? Blood cultures from 12/05 no growth so far. ECHOCARDIOGRAM done by the technician anatomic pathology yesterday.? I watched at the bedside.? My interpretation: Image quality:? Excellent.? Findings: ??Normal LV wall thickness, size, function.? Normal RV size and function.? Tricuspid continuous-wave Doppler measured 3.1 m/sec (gradient 38mm).? IVC 2.2 cm with limited insp collapse.? Estim CVP 15cm.? Estim RVSP 53mm. IMPRESSION: 1. Underlying schizoaffective disorder and dementia.? Functional mental status at baseline. 2. Has been encephalopathic since extubation on Nov 29.? Undoubtedly toxic metabolic.? Repeat head CT is negative. ?Unclear why. ?She was given Haldol and started on Lamictal.? Seemed to improve, with a good MS report on Dec 05, but then a very depressed MS on Dec 06, which undoubtedly contributed to her ventilatory insufficiency, which lead to her requiring tracheal intubation. ??? I thought maybe the Lamictal was responsible for the depressed MS.? We stopped that on arrival to ICU.? She?s still encephalopathic.? We?ll try again tomorrow.? Discussed at length with pharmacy. 3. Acute hypercarbic respiratory failure.? Serum bicarb and venous pCO2 levels from the first days of her hospitalization here suggest that the patient is not a CO2 retainer.? The cause of her hypercarbia on Dec 06 was undoubtedly the fact that she was barely breathing.? The cause of the latter was likely rooted in MS depression and/or aspiration, and/or plugging in her left mid and lower lung (the latter of which could have been 2? to aspiration). ? ??At this point, she?s requiring full ventilatory support (PSV 20 cm) so she?s not ready to extubate.? But she?s not having an oxygenation problem. 4. Left lower and mid lung collapse.? Muc plug vs aspiration.? No sign of a foreign body on the CT scan. ?I?ll bronch her today. 5. KIARA.? Her renal indices on admission would suggest that she does not have CKD. ?Her renal indices tania with diuresis.? Echo shows moderate pulmon HTN, which is confirmed by the CT scan.? It?s pretty much a certainty that she has right heart failure and cardiorenal syndrome.? And she is hugely total body fluid overloaded. ?The question is how successful diuresis will be.? I went be surprised if we have to support her blood pressure with Levophed while we?re diuresing her.? Discussed with Dr. Jansen from renal. ?We?ll start with Lasix 40 mg bid, plus Aldactone. 6. Pulmonary HTN.? Given her obesity and head and neck habitus, I would not be surprised if the patient has ANGEL.? That and her obesity are the cause of her pulmonary hypertension. 7. Afib/flutter.? Rate is controlled on the dilt and the metoprolol.? I?m certainly not going to try to cardiovert her.? Continuing Eliquis. 8. ID:? The CT shows LLL collapse, and RUL infiltrate.? This is day 6 of the Unasyn, and she?s still febrile with a high WBC.? Unlikely that the Unasyn is doing her any good.? I?ll d/c and change to vanco and Zosyn.? We?ll also send bronch cultures.? Send stool for CDiff.? Discussed with Dr. Desai. 9. Hypernatremia. ?Resolving on the D5W. 10. Hyperglycemia.? Started her on Lantus and SS Lispro. 12. Metabolic alkalosis.? We started her on Diamox.? I?ll cut the dose way down. 13. Anemia.? Prob ICU related (mult blood draws, hematopoietic failure).? Check stool guiac. Critical care time (excluding procedures):? 75+ min Critical Care Time (minutes): 75 Physical Exam Verdana 4l Vital Signs: Verdana 4d Verdana 4d Vital Signs: Verdana 4d Verdana 4Bd Last Vital Signs Verdana 4d Mirror Department Supervisor New 4d Mirror Department Supervisor New 4d Temp 101.1 F H 12/08/21 11:00 Mirror Department Supervisor New 4d Pulse 78 12/08/21 11:00 Mirror Department Supervisor New 4d Resp 19 12/08/21 11:00 BP 116/53 L 12/08/21 11:00 Pulse Ox 97 12/08/21 11:00 Oxygen Flow Rate 30 12/02/21 00:00 BMI result Body Mass Index 58.6 Objective Data Labs CBC & Chem 7: 12/08/21 11:59 12/08/21 05:25 Labs: Laboratory Results - last 24 hr 12/07/21 12/07/21 12/07/21 11:32 17:43 18:46 WBC RBC Hgb Hct MCV MCH MCHC RDW Plt Count MPV Absolute Nucleated RBC Nucleated RBC % (auto) VBG pH VBG pCO2 VBG pO2 VBG HCO3 VBG O2 Saturation VBG Base Excess Sodium 152 H Potassium 2.5 L* Chloride 111 H Carbon Dioxide 29 Anion Gap 15 BUN 32 H Creatinine 1.19 Estim Creat Clear Calc 60.0 Estimated GFR 45 POC Glucose 289 H 290 H Random Glucose 296 H Calcium 7.7 L Phosphorus 1.5 L Total Bilirubin AST ALT Alkaline Phosphatase B-Natriuretic Peptide Total Protein Albumin 12/07/21 12/08/21 12/08/21 21:19 01:23 05:00 WBC Cancelled RBC Cancelled Hgb Cancelled Hct Cancelled MCV Cancelled MCH Cancelled MCHC Cancelled RDW Cancelled Plt Count Cancelled MPV Cancelled Absolute Nucleated RBC Cancelled Nucleated RBC % (auto) Cancelled VBG pH VBG pCO2 VBG pO2 VBG HCO3 VBG O2 Saturation VBG Base Excess Sodium Potassium Chloride Carbon Dioxide Anion Gap BUN Creatinine Estim Creat Clear Calc Estimated GFR POC Glucose 282 H 213 H Random Glucose Calcium Phosphorus Total Bilirubin AST ALT Alkaline Phosphatase B-Natriuretic Peptide Total Protein Albumin 12/08/21 12/08/21 12/08/21 05:25 05:25 06:37 WBC RBC Hgb Hct MCV MCH MCHC RDW Plt Count MPV Absolute Nucleated RBC Nucleated RBC % (auto) VBG pH VBG pCO2 VBG pO2 VBG HCO3 VBG O2 Saturation VBG Base Excess Sodium 149 H Potassium 3.0 L Chloride 111 H Carbon Dioxide 29 Anion Gap 12 BUN 31 H Creatinine 1.21 Estim Creat Clear Calc 71.3 Estimated GFR 44 POC Glucose 253 H Random Glucose 268 H Calcium 7.3 L Phosphorus 3.1 Total Bilirubin 0.5 AST 72 H ALT 23 Alkaline Phosphatase 49 B-Natriuretic Peptide 117 H Total Protein 5.0 L Albumin 2.8 L 12/08/21 12/08/21 07:32 08:07 WBC RBC Hgb Hct MCV MCH MCHC RDW Plt Count MPV Absolute Nucleated RBC Nucleated RBC % (auto) VBG pH 7.49 H VBG pCO2 39 VBG pO2 51 VBG HCO3 30 H VBG O2 Saturation 84.0 VBG Base Excess 6.5 Sodium Potassium Chloride Carbon Dioxide Anion Gap BUN Creatinine Estim Creat Clear Calc Estimated GFR POC Glucose 254 H Random Glucose Calcium Phosphorus Total Bilirubin AST ALT Alkaline Phosphatase B-Natriuretic Peptide Total Protein Albumin Microbiology Microbiology Results: Microbiology 12/06/21 18:16 Urine Catheterized - Arias Catheter Urine Culture - Final No growth. 12/05/21 21:20 Blood - Venous Blood Culture - Preliminary No growth after 48 hours. 12/05/21 21:20 Blood - Venous Blood Culture - Preliminary No growth after 48 hours. 12/06/21 20:12 Sputum - Suctioned Gram Stain - Final 12/06/21 20:12 Sputum - Suctioned Sputum Culture - Preliminary No growth to date. 11/28/21 09:32 Sputum - Suctioned Gram Stain - Final 11/28/21 09:32 Sputum - Suctioned Sputum Culture - Final Kimberly albicans 11/25/21 01:47 Blood - Venous Blood Culture - Final No growth after 5 days. 11/25/21 01:42 Blood - Venous Blood Culture - Final No growth after 5 days. Quality Stroke Does the patient have a stroke diagnosis?: No VTE Prior VTE?: No VTE Risk Level:: Medical - moderate - high VTE Device Contraindication: Treatment Not Indicated VTE Drug Contraindication: N/A - Med Ordered Critical Care Time Critical Care Time (minutes): 90
[2021-12-08 12:03] LABS: Glucose, Whole Blood 208 mg/dL (60-115)
[2021-12-08 12:13] LABS: Hematocrit 26.8 % (37.0-47.0); Hemoglobin 7.4 g/dl (12.0-16.0); Mean Corpuscular HGB Conc 27.6 g/dl (31.0-35.0); Mean Corpuscular Hemoglobin 18.9 pg (27.0-33.0); Mean Corpuscular Volume 68.4 fL (80.0-98.0); NRBC Pct Auto 0.1 /100WBC (0.0-0.2); Platelet Count 186 X10*3/uL (160-400); Red Blood Count 3.92 X10*6/uL (4.20-5.50); Red Cell Distribution Width 22.9 % (11.0-16.0); White Blood Count 19.2 X10*3/uL (4.8-10.8)
--- NOTE | 2021-12-08 12:29 | P.PNNP_ITS ---
Subjective Subjective Date of Service: 12/08/21 Principal diagnosis: dysnatremia Interval history: Seen and exmained, events noted Bedside U/S shows IVC 2.2 cm andnn-collapsing Physical Exam Verdana 4l Vital Signs: Verdana 4d Verdana 4d Vital Signs: Verdana 4d Verdana 4Bd Last Vital Signs Verdana 4d Search Specialist New 4d Search Specialist New 4d Temp 101.1 F H 12/08/21 12:00 Search Specialist New 4d Pulse 77 12/08/21 12:03 Search Specialist New 4d Resp 24 H 12/08/21 12:03 BP 115/59 L 12/08/21 12:00 Pulse Ox 97 12/08/21 12:00 Oxygen Flow Rate 30 12/02/21 00:00 BMI result Body Mass Index 58.6 on vent/pressors BS decr bases RRR abd obese edema Const: Other: looks very sick with RR 40, tachypnic rhnochi/wheezes RRR abd obses edema General: cooperative and no acute distress Nutritional Appearance: obese Orientation/consciousness: patient oriented x3 Eyes: General: appearance normal, both eyes and all related structures Sclerae: sclerae normal Pupils: Equal, round and reactive pupils present EOM: EOMs intact bilaterally Neck: Neck: Yes normal visual inspection, Yes no lymphadenopathy, Yes trachea midline and Yes supple Chest: Chest palpation & inspection: normal inspection of the chest Resp: Effort & Inspection: normal respiratory effort Auscultation: clear to auscultation bilaterally Cardio: Palpation: normal PMI Rate: regular rate Rhythm: regular rhythm Heart sounds: S1 normal heart sound present, S2 normal heart sound present, no gallops, no murmurs and no rubs GI: Palpation (GI): Soft to palpation Auscultation: normal bowel sounds Skin: General skin exam: no rashes or lesions noted Lesions: other Neuro: General: patient oriented x3 Cranial nerves: Yes Equal, round and reactive pupils present Cognition (Neuro): normal cognition Extrem: General: Yes normal to inspection and Yes no pedal edema Psych: Mental Status: other Objective Data Labs CBC & Chem 7: 12/08/21 11:59 12/08/21 05:25 Labs: Laboratory Results - last 24 hr 12/07/21 12/07/21 12/07/21 17:43 18:46 21:19 WBC RBC Hgb Hct MCV MCH MCHC RDW Plt Count MPV Absolute Nucleated RBC Nucleated RBC % (auto) VBG pH VBG pCO2 VBG pO2 VBG HCO3 VBG O2 Saturation VBG Base Excess Sodium 152 H Potassium 2.5 L* Chloride 111 H Carbon Dioxide 29 Anion Gap 15 BUN 32 H Creatinine 1.19 Estim Creat Clear Calc 60.0 Estimated GFR 45 POC Glucose 290 H 282 H Random Glucose 296 H Calcium 7.7 L Phosphorus 1.5 L Total Bilirubin AST ALT Alkaline Phosphatase B-Natriuretic Peptide Total Protein Albumin 12/08/21 12/08/21 12/08/21 01:23 05:00 05:25 WBC Cancelled RBC Cancelled Hgb Cancelled Hct Cancelled MCV Cancelled MCH Cancelled MCHC Cancelled RDW Cancelled Plt Count Cancelled MPV Cancelled Absolute Nucleated RBC Cancelled Nucleated RBC % (auto) Cancelled VBG pH VBG pCO2 VBG pO2 VBG HCO3 VBG O2 Saturation VBG Base Excess Sodium 149 H Potassium 3.0 L Chloride 111 H Carbon Dioxide 29 Anion Gap 12 BUN 31 H Creatinine 1.21 Estim Creat Clear Calc 71.3 Estimated GFR 44 POC Glucose 213 H Random Glucose 268 H Calcium 7.3 L Phosphorus 3.1 Total Bilirubin 0.5 AST 72 H ALT 23 Alkaline Phosphatase 49 B-Natriuretic Peptide Total Protein 5.0 L Albumin 2.8 L 12/08/21 12/08/21 12/08/21 05:25 06:37 07:32 WBC RBC Hgb Hct MCV MCH MCHC RDW Plt Count MPV Absolute Nucleated RBC Nucleated RBC % (auto) VBG pH VBG pCO2 VBG pO2 VBG HCO3 VBG O2 Saturation VBG Base Excess Sodium Potassium Chloride Carbon Dioxide Anion Gap BUN Creatinine Estim Creat Clear Calc Estimated GFR POC Glucose 253 H 254 H Random Glucose Calcium Phosphorus Total Bilirubin AST ALT Alkaline Phosphatase B-Natriuretic Peptide 117 H Total Protein Albumin 12/08/21 12/08/21 12/08/21 08:07 11:53 11:59 WBC 19.2 H RBC 3.92 L Hgb 7.4 L Hct 26.8 L MCV 68.4 L MCH 18.9 L MCHC 27.6 L RDW 22.9 H Plt Count 186 MPV Not Reportable Absolute Nucleated RBC 0.020 H Nucleated RBC % (auto) 0.1 VBG pH 7.49 H VBG pCO2 39 VBG pO2 51 VBG HCO3 30 H VBG O2 Saturation 84.0 VBG Base Excess 6.5 Sodium Potassium Chloride Carbon Dioxide Anion Gap BUN Creatinine Estim Creat Clear Calc Estimated GFR POC Glucose 208 H Random Glucose Calcium Phosphorus Total Bilirubin AST ALT Alkaline Phosphatase B-Natriuretic Peptide Total Protein Albumin Microbiology Microbiology Results: Microbiology 12/06/21 18:16 Urine Catheterized - Arias Catheter Urine Culture - Final No growth. 12/05/21 21:20 Blood - Venous Blood Culture - Preliminary No growth after 48 hours. 12/05/21 21:20 Blood - Venous Blood Culture - Preliminary No growth after 48 hours. 12/06/21 20:12 Sputum - Suctioned Gram Stain - Final 12/06/21 20:12 Sputum - Suctioned Sputum Culture - Preliminary No growth to date. 11/28/21 09:32 Sputum - Suctioned Gram Stain - Final 11/28/21 09:32 Sputum - Suctioned Sputum Culture - Final Kimberly albicans 11/25/21 01:47 Blood - Venous Blood Culture - Final No growth after 5 days. 11/25/21 01:42 Blood - Venous Blood Culture - Final No growth after 5 days. Procedures Date of Service Date of Service: 12/08/21 Assessment & Plan Assessment and plan (1) Atrial fibrillation with RVR: Status: Acute (2) Hyponatremia: Status: Acute (3) Acute hyperkalemia: Status: Acute (4) Dyspnea: Status: Acute (5) Acute anaphylaxis: Status: Acute Plan 66-year-old female with past medical history of alcoholic liver cirrhosis, dementia, hyponatremia presents to the hospital with AFib with RVR Developed HyperNa and getting D5W and now acute resp distress with ECHO c/w incr intravasc volume and 3 L positive fluid balance past 24 hrs 1. HyperNA: SNa 149now on D5W and NGT free water 2. Hypervol: 3L pos past 24 hrs 3. HypoK REC: replace K, d/c norvasc; [id number] ivq 8hrs; [id number] qd; track UOP/renal funcandK level will follow with team Time Spent With Patient Time: Total time spent is greater than 50% in coordination of care (as documented) at patient's floor/unit and/or counseling patient: Progress Note: Quality Stroke Does the patient have a stroke diagnosis?: No
[2021-12-08] MEDS: fentaNYL citrate/PF 100 MCG/2 ML VIAL IVPUSH (13:20)
[2021-12-08] MEDS: Spironolactone 25 MG TABLET PO (13:21)
--- NOTE | 2021-12-08 15:33 | P.CNID_ITS ---
History of Present Illness Data of Consult Service Date: 12/08/21 Requesting physician: Ralph Wilson Primary Care Provider: Rony Hogan DO HPI Reason for consult: fever of unknown origin in ICU She presents to hospital 18 days ago with lightheadedness from [facility] She also had generalized abdominal pain mentioned on admission. She has cirrhosis and CRI as well as dementia. She did have concern over aspiration pneumonia and was given amp/sulbactam 12/02- 12/07 when it was stopped. She had intermittent temperatures over 101 about every 18-24 hours over last 4-5 days and then since yesterday near constant temperatures over 101. She was transferred to ICU on 12/06/2021 due to respiratory distress and subsequently intubated. She is currently not on antibiotics Medication review was done and she has not had any psychiatric regular medication discontinued except Remeron possibly. She has had CT chest/abdomen and pelvis done overnight and showed possible ileus,some cholelithiasis with no obvious obstruction. She has slightly increased SGOT to 72 She has rectal tube with profuse liquid brown stool and Arias catheter. She also has edematous areas buttock with some drainage and Dr Berry from Surgery looked at them. Review of Systems Verdana 4l Review of Systems: Yes unobtainable due to endotracheal Verdana 4d tube PMFSH Past Medical History Medical History (Updated 12/08/21 @ 15:45 by Sabi Desai MD) Alcoholic cirrhosis of liver Asthma CKD (chronic kidney disease) Fever of unknown origin Hyponatremia Schizoaffective disorder Family History Family history: reviewed and not pertinent Surgical History Surgical History No pertinent past surgical history Social History Social History Household Members: None Housing: House Patient Tobacco Use Status: Current everyday Tobacco user service: No Meds Allergies Allergy/AdvReac Type Severity Reaction Status Date / Time lisinopril Allergy Severe Angioedema Verified 12/02/21 16:07 Sulfa (Sulfonamide Allergy Intermediate HIVES Verified 11/24/21 20:49 Antibiotics) Active Medications: Current Medications Acetazolamide (Acetazolamide Sodium 500 Mg Vial) 500 mg IVPUSH Q8H GINGER Last Admin: 12/08/21 13:21 Dose: 500 mg Documented by: Albuterol/Ipratropium (Albuterol/Iprat 2.5/0.5mg 3 Ml Ampul.Neb) 3 ml INHALE RQ6H [facility] Last Admin: 12/08/21 11:52 Dose: 3 ml Documented by: Apixaban (Apixaban 5 Mg Tablet) 5 mg PO BID [facility] Last Admin: 12/08/21 07:42 Dose: 5 mg Documented by: Atorvastatin Calcium (Atorvastatin Calcium 10 Mg Tablet) 10 mg PO DAILY [facility] Last Admin: 12/08/21 07:42 Dose: 10 mg Documented by: Chlorhexidine Gluconate (Chlorhexidine Gluc Oral Rinse 15 Ml Mouthwash) 15 ml BUCCAL TID [facility] Last Admin: 12/08/21 13:21 Dose: 15 ml Documented by: Diltiazem HCl (Diltiazem Hcl 60 Mg Tablet) 60 mg PO QID [facility]; Protocol Last Admin: 12/08/21 12:09 Dose: 60 mg Documented by: Fentanyl (Fentanyl Citrate/Pf 100 Mcg/2 Ml Vial) 50 mcg IVPUSH Q5M PRN; Protocol PRN Reason: pain or WOB Fentanyl (Fentanyl Citrate/Pf 100 Mcg/2 Ml Vial) 100 mcg IVPUSH Q5M PRN; Protocol PRN Reason: severe WOB Last Admin: 12/08/21 13:20 Dose: 100 mcg Documented by: Diltiazem HCl 125 mg/ Sodium (Chloride) 125 mls @ 0 mls/hr IVCONT .Q0M [facility]; Protocol Last Titration: 12/08/21 14:11 Dose: 5 mg/hr, 5 mls/hr Documented by: Propofol (Diprivan) 1,000 mg in 100 mls @ 0 mls/hr IVCONT .Q0M [facility]; Protocol Last Titration: 12/08/21 14:42 Dose: 40 mcg/kg/min, 29.09 mls/hr Documented by: Norepinephrine Bitartrate (Levophed) 8 mg in 250 mls @ 0 mls/hr IVCONT .Q0M [facility]; Protocol Last Titration: 12/08/21 15:31 Dose: 0.07 mcg/kg/min, 15.91 mls/hr Documented by: Dextrose (D5w) 1,000 mls @ 50 mls/hr IVCONT .Q20H [facility] Last Admin: 12/07/21 22:38 Dose: 50 mls/hr Documented by: Insulin Glargine (Insulin Glargine,Hum.Rec.Anlog 100 Unit/Ml 10 Ml Vial) 20 unit SUBCUT BID [facility] Last Admin: 12/08/21 09:48 Dose: 20 unit Documented by: Insulin Human Lispro (Insulin Lispro 100 Unit/Ml 3 Ml Vial) 0 unit SUBCUT QIDACHS [facility]; Protocol Last Admin: 12/08/21 12:11 Dose: 8 unit Documented by: Metoprolol Tartrate (Metoprolol Tartrate 25 Mg Tablet) 25 mg PO BID [facility]; Protocol Last Admin: 12/08/21 07:42 Dose: 25 mg Documented by: Nystatin (Nystatin Powder 15 Gm Bottle) 1 appl TOPICAL TID [facility]; Protocol Last Admin: 12/08/21 07:43 Dose: 1 appl Documented by: Pharmacy Consult (Consult Rx Perform Med Rec) 1 each MISCELLANE ONCE PRN PRN Reason: Consult order Sodium Chloride (0.9 % Sodium Chloride Flush 3 Ml Syringe) 3 ml IVFLUSH QSHIFT [facility] Last Admin: 12/08/21 07:42 Dose: 3 ml Documented by: Spironolactone (Spironolactone 25 Mg Tablet) 25 mg PO DAILY [facility]; Protocol Last Admin: 12/08/21 13:21 Dose: 25 mg Documented by: Home Medications Medication Instructions Recorded Confirmed Last Taken Type Saccharomyces 250 mg PO BID 11/25/21 11/25/21 11/24/21 History boulardii 250 mg capsule (Florastor) acetaminophen 325 650 mg PO Q4H 11/25/21 11/25/21 11/23/21 History mg tablet PRN albuterol sulfate 2 puff 11/25/21 11/25/21 11/22/21 History 90 mcg/actuation INHALATION Q4H PRN aerosol inhaler (ProAir HFA) aluminum-mag 30 ml PO Q4H PRN 11/25/21 11/25/21 11/16/21 History hydroxide-simethi cone 200 mg-200 mg-20 mg/5 mL oral susp (Morena-Lanta) atorvastatin 10 1 tab PO DAILY 11/25/21 11/25/21 11/24/21 History mg tablet azathioprine 50 2 tab PO DAILY 11/25/21 11/25/2111/24/22 History mg tablet calcitonin 1 spray 11/25/21 11/25/21 11/24/21 History (salmon) 200 INTRANASAL DAILY unit/actuation nasal spray calcium carbonate 1 tab PO DAILY 11/25/21 11/25/21 11/24/21 History 600 mg-vitamin D3 5 mcg (200 unit) tablet (Calcium 600 + D(3)) cranberry fruit 450 mg PO BID 11/25/21 11/25/21 11/24/21 History 450 mg tablet (cranberry) cyclobenzaprine 1 tab PO Q24H 11/25/21 11/25/21 11/21/21 History 10 mg tablet PRN docusate sodium 100 mg PO BID 11/25/21 11/25/21 11/24/21 History 100 mg tablet dulaglutide 1.5 1.5 mg SUBCUT TU 11/25/21 11/25/21 11/23/21 History mg/0.5 mL subcutaneous pen injector (Trulicity) gabapentin 100 mg 1 cap PO TID 11/25/21 11/25/21 11/24/21 History capsule haloperidol 5 mg 5 mg PO BID 11/25/21 11/25/21 11/24/21 History tablet hydroxyzine HCl 25 mg PO QID 11/25/21 11/25/21 11/24/21 History 25 mg tablet insulin detemir 110 unit SUBCUT 11/25/21 11/25/21 11/24/21 History U-100 100 unit/mL BID@0630,1630 (3 mL) subcutaneous pen insulin regular 1 sliding scale 11/25/21 11/25/21 11/24/21 History human 100 unit/mL dose SUBCUT injection USEASDIRECTD solution (Novolin R Regular U-100 Insulin) ipratropium 20 1 puff 11/25/21 11/25/21 11/24/21 History mcg-albuterol 100 INHALATION BID mcg/actuation mist for inhalation (Combivent Respimat) lanolin 1 appl TOPICAL 11/25/21 11/25/21 Unknown History alcohols-mineral DAILY oil-w.petrolatum- ceresin topical cream (Minerin Creme) lisinopril 5 mg 5 mg PO DAILY 11/25/21 11/25/21 11/24/21 History tablet menthol 5 % 1 patch TOPICAL 11/25/21 11/25/21 Unknown History topical patch DAILY PRN (Bengay Ultra Strength (menthol)) metformin 1,000 1,000 mg PO BID 11/25/21 11/25/21 11/24/21 History mg tablet mirtazapine 15 mg 1 tab PO BEDTIME 11/25/21 11/25/21 11/23/21 History tablet multivitamin 1 tab PO DAILY 11/25/21 11/25/21 11/24/21 History nicotine 7 mg/24 1 patch 11/25/21 11/25/21 Unknown History hr daily TRANSDERMAL Q24H PRN transdermal patch nitrofurantoin 1 cap PO BEDTIME 11/25/21 11/25/21 11/23/21 History macrocrystal 50 mg capsule nitroglycerin 0.4 0.4 mg 11/25/21 11/25/21 Unknown History mg sublingual SUBLINGUAL Q5M PRN tablet nystatin 100,000 1 appl TOPICAL 11/25/21 11/25/21 Unknown History unit/gram topical BID powder omeprazole 20 mg 20 mg PO BID 11/25/21 11/25/21 11/24/21 History tablet,delayed release oxycodone-acetami 1 tab PO QID 11/25/21 11/25/21 11/24/21 History nophen 5 mg-325 mg tablet sennosides 8.6 mg 8.6 mg PO DAILY 11/25/21 11/25/21 11/24/21 History tablet (senna) sennosides 8.6 mg 17.2 mg PO 11/25/21 11/25/21 11/23/21 History tablet (senna) BEDTIME sitagliptin 100 100 mg PO DAILY 11/25/21 11/25/21 11/24/21 History mg tablet (Januvia) sodium chloride 2 spray 11/25/21 11/25/21 11/24/21 History 0.65 % nasal INTRANASAL Q4H spray PRN aerosol (Deep Sea Nasal) sodium chloride 1,000 mg PO TID 11/25/21 11/25/21 11/24/21 History 1,000 mg soluble tablet tolterodine 4 mg 4 mg PO DAILY 11/25/21 11/25/21 11/24/21 History capsule,extended release 24 hr Physical Exam Verdana 4l Vital Signs: Verdana 4d Verdana 4d Vital Signs: Verdana 4d Verdana 4Bd Last Vital Signs Verdana 4d Vein Access Technician New 4d Vein Access Technician New 4d Temp 100.8 F H 12/08/21 14:00 Vein Access Technician New 4d Pulse 88 12/08/21 14:00 Vein Access Technician New 4d Resp 15 12/08/21 14:00 BP 103/46 L 12/08/21 14:00 Pulse Ox 96 12/08/21 14:00 Oxygen Flow Rate 30 12/02/21 00:00 BMI result Body Mass Index 58.6 Const: General: cooperative Eyes: Pupils: Equal, round and reactive pupils present Resp: Effort & Inspection: normal respiratory effort Cardio: Rate: regular rate Rhythm: regular rhythm Heart sounds: Murmur heart sound present (12/19) systolic GI: Palpation (GI): Soft to palpation and nontender Skin: General skin exam: no rashes or lesions noted Wounds: wounds noted (buttock area,unstageable,no deep to bone) Neuro: Cranial nerves: Yes Equal, round and reactive pupils present Results Labs CBC & Chem 7: 12/08/21 11:59 12/08/21 05:25 Labs: Short CBC 12/08/21 12/08/21 Range/Units 05:00 11:59 WBC Cancelled 19.2 H Hgb Cancelled 7.4 L Hct Cancelled 26.8 L Plt Count Cancelled 186 BMP 12/07/21 12/08/21 18:46 05:25 Sodium 152 H 149 H Potassium 2.5 L* 3.0 L Chloride 111 H 111 H Carbon Dioxide 29 29 BUN 32 H 31 H Creatinine 1.19 1.21 Calcium 7.7 L 7.3 L Liver Function 12/08/21 Range/Units 05:25 Total Bilirubin 0.5 (0.0-1.0) mg/dL AST 72 H (5-31) U/L ALT 23 (0-31) U/L Alkaline Phosphatase 49 (39-117) U/L Albumin 2.8 L (3.5-5.0) g/dL Microbiology Microbiology Results: Microbiology 12/06/21 20:12 Sputum - Suctioned Gram Stain - Final 12/06/21 20:12 Sputum - Suctioned Sputum Culture - Final 12/06/21 18:16 Urine Catheterized - Arias Catheter Urine Culture - Final No growth. 01/23/22 21:20 Blood - Venous Blood Culture - Preliminary No growth after 48 hours. 12/05/21 21:20 Blood - Venous Blood Culture - Preliminary No growth after 48 hours. 11/28/21 09:32 Sputum - Suctioned Gram Stain - Final 11/28/21 09:32 Sputum - Suctioned Sputum Culture - Final Kimberly albicans 11/25/21 01:47 Blood - Venous Blood Culture - Final No growth after 5 days. 11/25/21 01:42 Blood - Venous Blood Culture - Final No growth after 5 days. Assessment and Plan (1) Fever of unknown origin: Status: Acute This is a fever of unknown origin case in ICU. Causes particular to this patient include possible ileus possible Cdiff lines (look clear) cholecystitis drugs (doubt) pneumonia ?MRSA aspiration?ARDS developing/pulmonary fibrosis,doubt COVID since negative twice buttock ulcers Suggest Recheck COVID test with flu platform Check nares MRSA and consider empiric Vancomycin and antifungal Check stool Cdiff U/S gallbladder evaluate for possible cholelithiasis (2) Acute encephalopathy: Status: Acute (3) Acute respiratory failure: Status: Acute
--- NOTE | 2021-12-08 15:33 | W.PM.IDCN ---
History of Present Illness Data of Consult Service Date: 12/08/21 Requesting physician: Ralph Wilson Primary Care Provider: Rony Hogan DO HPI Reason for consult: fever of unknown origin in ICU She presents to hospital 18 days ago with lightheadedness from [facility] She also had generalized abdominal pain mentioned on admission. She has cirrhosis and CRI as well as dementia. She did have concern over aspiration pneumonia and was given amp/sulbactam 12/02-12/07 when it was stopped. She had intermittent temperatures over 101 about every 18-24 hours over last 4-5 days and then since yesterday near constant temperatures over 101. She was transferred to ICU on 12/06/2021 due to respiratory distress and subsequently intubated. She is currently not on antibiotics Medication review was done and she has not had any psychiatric regular medication discontinued except Remeron possibly. She has had CT chest/abdomen and pelvis done overnight and showed possible ileus,some cholelithiasis with no obvious obstruction. She has slightly increased SGOT to 72 She has rectal tube with profuse liquid brown stool and Arias catheter. She also has edematous areas buttock with some drainage and Dr Berry from Surgery looked at them. Review of Systems Review of Systems: Yes unobtainable due to endotracheal tube PMFSH Past Medical History Medical History (Updated 12/08/21 @ 15:45 by Sabi Desai MD) Alcoholic cirrhosis of liver Asthma CKD (chronic kidney disease) Fever of unknown origin Hyponatremia Schizoaffective disorder Family History Family history: reviewed and not pertinent Surgical History Surgical History No pertinent past surgical history Social History Social History Household Members: None Housing: House Patient Tobacco Use Status: Current everyday Tobacco user service: No Meds Allergies Allergy/AdvReac Type Severity Reaction Status Date / Time lisinopril Allergy Severe Angioedema Verified 12/02/21 16:07 Sulfa (Sulfonamide Allergy Intermediate HIVES Verified 11/24/21 20:49 Antibiotics) Active Medications: Current Medications Acetazolamide (Acetazolamide Sodium 500 Mg Vial) 500 mg IVPUSH Q8H [facility] Last Admin: 12/08/21 13:21 Dose: 500 mg Documented by: Albuterol/Ipratropium (Albuterol/Iprat 2.5/0.5mg 3 Ml Ampul.Neb) 3 ml INHALE RQ6H [facility] Last Admin: 12/08/21 11:52 Dose: 3 ml Documented by: Apixaban (Apixaban 5 Mg Tablet) 5 mg PO BID [facility] Last Admin: 12/08/21 07:42 Dose: 5 mg Documented by: Atorvastatin Calcium (Atorvastatin Calcium 10 Mg Tablet) 10 mg PO DAILY [facility] Last Admin: 12/08/21 07:42 Dose: 10 mg Documented by: Chlorhexidine Gluconate (Chlorhexidine Gluc Oral Rinse 15 Ml Mouthwash) 15 ml BUCCAL TID [facility] Last Admin: 12/08/21 13:21 Dose: 15 ml Documented by: Diltiazem HCl (Diltiazem Hcl 60 Mg Tablet) 60 mg PO QID [facility]; Protocol Last Admin: 12/08/21 12:09 Dose: 60 mg Documented by: Fentanyl (Fentanyl Citrate/Pf 100 Mcg/2 Ml Vial) 50 mcg IVPUSH Q5M PRN; Protocol PRN Reason: pain or WOB Fentanyl (Fentanyl Citrate/Pf 100 Mcg/2 Ml Vial) 100 mcg IVPUSH Q5M PRN; Protocol PRN Reason: severe WOB Last Admin: 12/08/21 13:20 Dose: 100 mcg Documented by: Diltiazem HCl 125 mg/ Sodium (Chloride) 125 mls @ 0 mls/hr IVCONT .Q0M [facility]; Protocol Last Titration: 12/08/21 14:11 Dose: 5 mg/hr, 5 mls/hr Documented by: Propofol (Diprivan) 1,000 mg in 100 mls @ 0 mls/hr IVCONT .Q0M [facility]; Protocol Last Titration: 12/08/21 14:42 Dose: 40 mcg/kg/min, 29.09 mls/hr Documented by: Norepinephrine Bitartrate (Levophed) 8 mg in 250 mls @ 0 mls/hr IVCONT .Q0M [facility]; Protocol Last Titration: 12/08/21 15:31 Dose: 0.07 mcg/kg/min, 15.91 mls/hr Documented by: Dextrose (D5w) 1,000 mls @ 50 mls/hr IVCONT .Q20H [facility] Last Admin: 12/07/21 22:38 Dose: 50 mls/hr Documented by: Insulin Glargine (Insulin Glargine,Hum.Rec.Anlog 100 Unit/Ml 10 Ml Vial) 20 unit SUBCUT BID [facility] Last Admin: 12/08/21 09:48 Dose: 20 unit Documented by: Insulin Human Lispro (Insulin Lispro 100 Unit/Ml 3 Ml Vial) 0 unit SUBCUT QIDACHS [facility]; Protocol Last Admin: 12/08/21 12:11 Dose: 8 unit Documented by: Metoprolol Tartrate (Metoprolol Tartrate 25 Mg Tablet) 25 mg PO BID [facility]; Protocol Last Admin: 12/08/21 07:42 Dose: 25 mg Documented by: Nystatin (Nystatin Powder 15 Gm Bottle) 1 appl TOPICAL TID [facility]; Protocol Last Admin: 12/08/21 07:43 Dose: 1 appl Documented by: Pharmacy Consult (Consult Rx Perform Med Rec) 1 each MISCELLANE ONCE PRN PRN Reason: Consult order Sodium Chloride (0.9 % Sodium Chloride Flush 3 Ml Syringe) 3 ml IVFLUSH QSHIFT [facility] Last Admin: 12/08/21 07:42 Dose: 3 ml Documented by: Spironolactone (Spironolactone 25 Mg Tablet) 25 mg PO DAILY [facility]; Protocol Last Admin: 12/08/21 13:21 Dose: 25 mg Documented by: Home Medications Medication Instructions Recorded Confirmed Last Taken Type Saccharomyces boulardii 250 mg 250 mg PO BID 11/25/21 11/25/21 11/24/21 History capsule (Florastor) acetaminophen 325 mg tablet 650 mg PO Q4H PRN 11/25/21 11/25/21 11/23/21 History albuterol sulfate 90 mcg/actuation 2 puff INHALATION Q4H PRN 11/25/21 11/25/21 11/22/21 History aerosol inhaler (ProAir HFA) aluminum-mag hydroxide-simethicone 30 ml PO Q4H PRN 11/25/21 11/25/21 11/16/21 History 200 mg-200 mg-20 mg/5 mL oral susp (Morena-Lanta) atorvastatin 10 mg tablet 1 tab PO DAILY 11/25/21 11/25/21 11/24/21 History azathioprine 50 mg tablet 2 tab PO DAILY 11/25/21 11/25/21 11/24/21 History calcitonin (salmon) 200 1 spray INTRANASAL DAILY 11/25/21 11/25/21 11/24/21 History unit/actuation nasal spray calcium carbonate 600 mg-vitamin 1 tab PO DAILY 11/25/21 11/25/21 11/24/21 History D3 5 mcg (200 unit) tablet (Calcium 600 + D(3)) cranberry fruit 450 mg tablet 450 mg PO BID 11/25/21 11/25/21 11/24/21 History (cranberry) cyclobenzaprine 10 mg tablet 1 tab PO Q24H PRN 11/25/21 11/25/21 11/21/21 History docusate sodium 100 mg tablet 100 mg PO BID 11/25/21 11/25/21 11/24/21 History dulaglutide 1.5 mg/0.5 mL 1.5 mg SUBCUT TU 11/25/21 11/25/21 11/23/21 History subcutaneous pen injector (Trulicity) gabapentin 100 mg capsule 1 cap PO TID 11/25/21 11/25/21 11/24/21 History haloperidol 5 mg tablet 5 mg PO BID 11/25/21 11/25/21 11/24/21 History hydroxyzine HCl 25 mg tablet 25 mg PO QID 11/25/21 11/25/21 11/24/21 History insulin detemir U-100 100 unit/mL 110 unit SUBCUT BID@0630,1630 11/25/21 11/25/21 11/24/21 History (3 mL) subcutaneous pen insulin regular human 100 unit/mL 1 sliding scale dose SUBCUT 11/25/21 11/25/21 11/24/21 History injection solution (Novolin R USEASDIRECTD Regular U-100 Insulin) ipratropium 20 mcg-albuterol 100 1 puff INHALATION BID 11/25/21 11/25/21 11/24/21 History mcg/actuation mist for inhalation (Combivent Respimat) lanolin alcohols-mineral 1 appl TOPICAL DAILY 11/25/21 11/25/21 Unknown History oil-w.petrolatum-ceresin topical cream (Minerin Creme) lisinopril 5 mg tablet 5 mg PO DAILY 11/25/21 11/25/21 11/24/21 History menthol 5 % topical patch (Bengay 1 patch TOPICAL DAILY PRN 11/25/21 11/25/21 Unknown History Ultra Strength (menthol)) metformin 1,000 mg tablet 1,000 mg PO BID 11/25/21 11/25/21 11/24/21 History mirtazapine 15 mg tablet 1 tab PO BEDTIME 11/25/21 11/25/21 11/23/21 History multivitamin 1 tab PO DAILY 11/25/21 11/25/21 11/24/21 History nicotine 7 mg/24 hr daily 1 patch TRANSDERMAL Q24H PRN 11/25/21 11/25/21 Unknown History transdermal patch nitrofurantoin macrocrystal 50 mg 1 cap PO BEDTIME 11/25/21 11/25/21 11/23/21 History capsule nitroglycerin 0.4 mg sublingual 0.4 mg SUBLINGUAL Q5M PRN 11/25/21 11/25/21 Unknown History tablet nystatin 100,000 unit/gram topical 1 appl TOPICAL BID 11/25/21 11/25/21 Unknown History powder omeprazole 20 mg tablet,delayed 20 mg PO BID 11/25/21 11/25/21 11/24/21 History release oxycodone-acetaminophen 5 mg-325 1 tab PO QID 11/25/21 11/25/21 11/24/21 History mg tablet sennosides 8.6 mg tablet (senna) 8.6 mg PO DAILY 11/25/21 11/25/21 11/24/21 History sennosides 8.6 mg tablet (senna) 17.2 mg PO BEDTIME 11/25/21 11/25/21 11/23/21 History sitagliptin 100 mg tablet (Januvia) 100 mg PO DAILY 11/25/21 11/25/21 11/24/21 History sodium chloride 0.65 % nasal spray 2 spray INTRANASAL Q4H PRN 11/25/21 11/25/21 11/24/21 History aerosol (Deep Sea Nasal) sodium chloride 1,000 mg soluble 1,000 mg PO TID 11/25/21 11/25/21 11/24/21 History tablet tolterodine 4 mg capsule,extended 4 mg PO DAILY 11/25/21 11/25/21 11/24/21 History release 24 hr Physical Exam Vital Signs: Vital Signs: Last Vital Signs Temp 100.8 F H 12/08/21 14:00 Pulse 88 12/08/21 14:00 Resp 15 12/08/21 14:00 BP 103/46 L 12/08/21 14:00 Pulse Ox 96 12/08/21 14:00 Oxygen Flow Rate 30 12/02/21 00:00 BMI result Body Mass Index 58.6 Const: General: cooperative Eyes: Pupils: Equal, round and reactive pupils present Resp: Effort & Inspection: normal respiratory effort Cardio: Rate: regular rate Rhythm: regular rhythm Heart sounds: Murmur heart sound present (2/6) systolic GI: Palpation (GI): Soft to palpation and nontender Skin: General skin exam: no rashes or lesions noted Wounds: wounds noted (buttock area,unstageable,no deep to bone) Neuro: Cranial nerves: Yes Equal, round and reactive pupils present Results Labs CBC & Chem 7: 12/08/21 11:59 12/08/21 05:25 Labs: Short CBC 12/08/21 12/08/21 Range/Units 05:00 11:59 WBC Cancelled 19.2 H Hgb Cancelled 7.4 L Hct Cancelled 26.8 L Plt Count Cancelled 186 BMP 12/07/21 12/08/21 18:46 05:25 Sodium 152 H 149 H Potassium 2.5 L* 3.0 L Chloride 111 H 111 H Carbon Dioxide 29 29 BUN 32 H 31 H Creatinine 1.19 1.21 Calcium 7.7 L 7.3 L Liver Function 12/08/21 Range/Units 05:25 Total Bilirubin 0.5 (0.0-1.0) mg/dL AST 72 H (5-31) U/L ALT 23 (0-31) U/L Alkaline Phosphatase 49 (39-117) U/L Albumin 2.8 L (3.5-5.0) g/dL Microbiology Microbiology Results: Microbiology 12/06/21 20:12 Sputum - Suctioned Gram Stain - Final 12/06/21 20:12 Sputum - Suctioned Sputum Culture - Final 12/06/21 18:16 Urine Catheterized - Arias Catheter Urine Culture - Final No growth. 12/05/21 21:20 Blood - Venous Blood Culture - Preliminary No growth after 48 hours. 12/05/21 21:20 Blood - Venous Blood Culture - Preliminary No growth after 48 hours. 11/28/21 09:32 Sputum - Suctioned Gram Stain - Final 11/28/21 09:32 Sputum - Suctioned Sputum Culture - Final Kimberly albicans 11/25/21 01:47 Blood - Venous Blood Culture - Final No growth after 5 days. 11/25/21 01:42 Blood - Venous Blood Culture - Final No growth after 5 days. Assessment and Plan (1) Fever of unknown origin: Status: Acute This is a fever of unknown origin case in ICU. Causes particular to this patient include possible ileus possible Cdiff lines (look clear) cholecystitis drugs (doubt) pneumonia ?MRSA aspiration?ARDS developing/pulmonary fibrosis,doubt COVID since negative twice buttock ulcers Suggest Recheck COVID test with flu platform Check nares MRSA and consider empiric Vancomycin and antifungal Check stool Cdiff U/S gallbladder evaluate for possible cholelithiasis (2) Acute encephalopathy: Status: Acute (3) Acute respiratory failure: Status: Acute
[2021-12-08 16:42] LABS: Glucose, Whole Blood 174 mg/dL (60-115)
[2021-12-08] MEDS: Piperacillin Sodium/Tazobactam 4.5 GM in 0.9 % Sodium Chloride 100 ML IV (17:00)
[2021-12-08] MEDS: Dextrose 5 % 1,000 ML 50 ML IVCONT (17:17)
[2021-12-08 17:25] LABS: OBS Int Ctl Valid YES; OBS1 POSITIVE (NEGATIVE)
[2021-12-08 17:33] LABS: Leukocytes Stool Qualitative NEGATIVE (NEGATIVE)
[2021-12-08 17:34] LABS: CDiff Gene PCR NEGATIVE (Negative)
[2021-12-08] MEDS: vancomycin HCL 1,500 MG in 0.9 % Sodium Chloride 500 ML 333.33 MG IV (17:41)
--- NOTE | 2021-12-08 18:33 | PHA.PROG ---
Admission Date/Time: November 25, 2021 02:13 Indication: Weight in k.9 kg Adjusted body weight in K.5 kg [place] body weight in K.3 kg Obesity Dosing Indication % IBW: Serum Creatinine - Last 168 Hours 12/02/21 12/03/21 12/04/21 05:18 05:30 12:44 Creatinine 0.78 0.71 0.80 12/05/21 12/06/21 12/07/21 07:27 05:52 05:20 Creatinine 0.87 1.18 1.31 12/07/21 12/08/21 18:46 05:25 Creatinine 1.19 1.21 Estimated CrCl and GFR - Last 168 Hours 12/02/21 12/03/21 12/04/21 05:18 05:30 12:44 Estim Creat Clear Calc 98.7 108.5 96.2 Estimated GFR > 60 > 60 > 60 12/05/21 12/06/21 12/07/21 07:27 05:52 05:20 Estim Creat Clear Calc 88.5 65.2 54.5 Estimated GFR > 60 46 40 12/07/21 12/08/21 18:46 05:25 Estim Creat Clear Calc 60.0 71.3 Estimated GFR 45 44 Vancomycin Loading Dose: 1500 mg Current Vancomycin Dosing Regimen: 1250 mg q24 Vancomycin Monitoring using AUC goal of 400 - 600 range with trough as surrogate marker: auc 449, trough 11.3 Date and Time for next Vancomycin Level to be drawn: 12/10 @1600 Pharmacist Comments on Vancomycin Plan: Vancomycin dosing will take advantage of [employer] as a clinical decision support tool that uses Bayesian modeling to calculate individual patient's pharmacokinetic parameters and forecast the patient's drug concentration time course with the target goal AUC 24 range of 400 - 600 mg/L/hr.
--- NOTE | 2021-12-08 19:12 | PC.NURSE ---
TMAX 101.1, BP SUPPORTED WITH LEVOPHED GTT - SEE EMAR. BRIEF SEDATION VACATION: 1307 - 1442. BEDSIDE BRONCH WITH SAMPLES COLLECTED AND SENT TO LAB. SURGEON BEDSIDE TO ASSESS SKIN - SAMPLE COLLECTED AND SENT TO LAB. RECTAL TUBE OUTPUT 1,100 ML, BROWN, LIQUID. CONTINUED TO LEAK/?HOLE IN TUBING. NEW RECTAL TUBE PLACED. NO LEAKING NOTED SINCE CHANGE. MANCIA OUTPUT DECREASED - MD AWARE, WILL CONTINUE TO MONITOR. Q2HR REPO, PREVALON MATTRESS, PILLOWS AND WEDGES USED, BARRIER/TRIAD CREAM WITH PINK FOAM TO BUTTOCK. CAREONE UPDATED BY THIS RN.
[2021-12-08 20:35] LABS: Glucose, Whole Blood 220 mg/dL (60-115)
[2021-12-08] MEDS: dilTIAZem HCL 125 MG in 0.9 % Sodium Chloride 100 ML IVCONT (23:46)
[2021-12-09] VITALS (36 sets, daily range): BP systolic 113–152; BP diastolic 49–67; PULSE 70–97; RESP 16–33; TEMP 33.6–38.4; O2SAT 93–98; BMI 57.7
[2021-12-09] MEDS: Piperacillin Sodium/Tazobactam 4.5 GM in 0.9 % Sodium Chloride 100 ML IV ×4 (00:50→19:24)
[2021-12-09] MEDS: acetaZOLAMIDE sodium 500 MG VIAL 250 MG IVPUSH ×2 (02:30→14:16)
[2021-12-09] MEDS: 0.9 % Sodium Chloride Flush 3 ML SYRINGE IVFLUSH (02:31)
[2021-12-09] MEDS: propofoL 1,000 MG/100 ML VIAL 29.09 MG IVCONT ×2 (03:19→05:43)
[2021-12-09] MEDS: Albuterol/Iprat 2.5/0.5MG 3 ML AMPUL.NEB INHALE ×3 (05:14→18:00)
[2021-12-09 05:24] LABS: VBG Base Excess 4.3 mmol/L; VBG HCO3 28 mmol/L (22-26); VBG pCO2 40 mmHg; VBG pH 7.45 (7.32-7.43); VBG pO2 42 mmHg
[2021-12-09 05:42] LABS: Mean Corpuscular Hemoglobin 18.8 pg (27.0-33.0); NRBC Pct Auto 0.2 /100WBC (0.0-0.2); PLT ABN DIST 1; Venous Blood Gas Refer to POC result
[2021-12-09 05:44] LABS: Hematocrit 25.2 % (37.0-47.0); Mean Corpuscular HGB Conc 27.8 g/dl (31.0-35.0); Mean Corpuscular Volume 67.6 fL (80.0-98.0); Platelet Count 164 X10*3/uL (160-400); Red Blood Count 3.73 X10*6/uL (4.20-5.50); Red Cell Distribution Width 22.9 % (11.0-16.0); White Blood Count 16.5 X10*3/uL (4.8-10.8)
[2021-12-09 05:48] LABS: Prothrombin Time 22.5 SEC (9.9-13.0)
[2021-12-09 06:15] LABS: Anion Gap 10 (12-20); Blood Urea Nitrogen 29 mg/dL (9-16); Calcium 7.1 mg/dL (8.4-10.2); Carbon Dioxide 29 mmol/L (22-29); Chloride 106 mmol/L (96-108); Creatinine Clr Calc Pharmacy 76.2; Estimated Glomerular Filt Rate 48; Glucose Random 268 mg/dL (60-115); Magnesium 2.1 mg/dL (1.6-2.6); Potassium 3.1 mmol/L (3.3-5.1); Sodium 142 mmol/L (135-145)
[2021-12-09] MEDS: dilTIAZem HCL 125 MG in 0.9 % Sodium Chloride 100 ML IVCONT (06:37)
[2021-12-09 07:19] LABS: Glucose, Whole Blood 255 mg/dL (60-115)
[2021-12-09 07:21] LABS: Procalcitonin 0.15 ng/mL
--- NOTE | 2021-12-09 08:31 | W.PM.CCHP ---
Procedures Date of Service Date of Service: 12/08/21 Bronchoscopy Bronchoscopy Comments: PROCEDURE NOTE:? Fiberoptic bronchoscopy INDICATIONS:? LLL collapse with acute respiratory failure. PROCEDURE:? The bronchoscope was introduced without incident.? At the junction of the lingular and LLL bronchi, mucus plugging in both lobes was immediately apparent. In the lingula, a plug was suctioned out that was so thick, it obstructed the suction channel of the bronchoscope and could not be sucked out or injected out. The suction channel needed to be cleared with a brush. The lingula and the LL were then suctioned until clear. Following that, mucus in the right side was sucked out till clear. The patient tolerated the procedure well without complications Consent for Procedure: Emergent-no informed consent obtained
[2021-12-09] MEDS: Insulin Glargine,Hum.rec.anlog 100 UNIT/ML 10 ML VIAL 20 UNIT SUBCUT (09:28)
[2021-12-09] MEDS: Insulin Lispro 100 UNIT/ML 3 ML VIAL SUBCUT ×3 (09:28→21:49)
[2021-12-09] MEDS: fentaNYL citrate/PF 100 MCG/2 ML VIAL IVPUSH (10:29)
[2021-12-09] MEDS: Furosemide 40 MG/4 ML VIAL IVPUSH ×2 (10:40→21:50)
--- NOTE | 2021-12-09 10:47 | P.PNNP_ITS ---
Subjective Subjective Date of Service: 12/09/21 Principal diagnosis: dysnatremia, hypervol Interval history: Seen and examined, evets noted Physical Exam Verdana 4l Vital Signs: Verdana 4d Verdana 4d Vital Signs: Verdana 4d Verdana 4Bd Last Vital Signs Verdana 4d Land Title Examiner New 4d Land Title Examiner New 4d Temp 100.9 F H 12/09/21 10:00 Land Title Examiner New 4d Pulse 91 12/09/21 10:00 Land Title Examiner New 4d Resp 19 12/09/21 10:00 BP 125/50 L 12/09/21 10:00 Pulse Ox 96 12/09/21 10:00 Oxygen Flow Rate 30 12/02/21 00:00 BMI result Body Mass Index 57.7 Const: Other: looks very sick with RR 40, tachypnic rhnochi/wheezes RRR abd obses edema General: cooperative and no acute distress Nutritional Appearance: obese Orientation/consciousness: patient oriented x3 Eyes: General: appearance normal, both eyes and all related structures Sclerae: sclerae normal Pupils: Equal, round and reactive pupils present EOM: EOMs intact bilaterally Neck: Neck: Yes normal visual inspection, Yes no lymphadenopathy, Yes trachea midline and Yes supple Chest: Chest palpation & inspection: normal inspection of the chest Resp: Effort & Inspection: normal respiratory effort Auscultation: clear to auscultation bilaterally Cardio: Palpation: normal PMI Rate: regular rate Rhythm: regular rhythm Heart sounds: S1 normal heart sound present, S2 normal heart sound present, no gallops, no murmurs and no rubs GI: Palpation (GI): Soft to palpation Auscultation: normal bowel sounds Skin: General skin exam: no rashes or lesions noted Lesions: other Neuro: General: patient oriented x3 Cranial nerves: Yes Equal, round and reactive pupils present Cognition (Neuro): normal cognition Extrem: General: Yes normal to inspection and Yes no pedal edema Psych: Mental Status: other Objective Data Labs CBC & Chem 7: 12/09/21 05:20 12/09/21 05:20 Labs: Laboratory Results - last 24 hr 12/08/21 12/08/21 12/08/21 11:53 11:59 15:41 WBC 19.2 H RBC 3.92 L Hgb 7.4 L Hct 26.8 L MCV 68.4 L MCH 18.9 L MCHC 27.6 L RDW 22.9 H Plt Count 186 MPV Not Reportable Absolute Nucleated RBC 0.020 H Nucleated RBC % (auto) 0.1 PT INR VBG pH VBG pCO2 VBG pO2 VBG HCO3 VBG O2 Saturation VBG Base Excess Sodium Potassium Chloride Carbon Dioxide Anion Gap BUN Creatinine Estim Creat Clear Calc Estimated GFR POC Glucose 208 H Random Glucose Calcium Phosphorus Magnesium Procalcitonin Stool Occult Blood Stool Leukocytes, Qual C. difficile Tox B Gene NEGATIVE Blood Type Antibody Screen Crossmatch 12/08/21 12/08/21 12/08/21 16:31 16:31 16:37 WBC RBC Hgb Hct MCV MCH MCHC RDW Plt Count MPV Absolute Nucleated RBC Nucleated RBC % (auto) PT INR VBG pH VBG pCO2 VBG pO2 VBG HCO3 VBG O2 Saturation VBG Base Excess Sodium Potassium Chloride Carbon Dioxide Anion Gap BUN Creatinine Estim Creat Clear Calc Estimated GFR POC Glucose 174 H Random Glucose Calcium Phosphorus Magnesium Procalcitonin Stool Occult Blood POSITIVE Stool Leukocytes, Qual NEGATIVE C. difficile Tox B Gene Blood Type Antibody Screen Crossmatch 12/08/21 12/09/21 12/09/21 20:32 05:18 05:20 WBC RBC Hgb Hct MCV MCH MCHC RDW Plt Count MPV Absolute Nucleated RBC Nucleated RBC % (auto) PT 22.5 H INR 2.0 H VBG pH 7.45 H VBG pCO2 40 VBG pO2 42 VBG HCO3 28 H VBG O2 Saturation 69.0 VBG Base Excess 4.3 Sodium Potassium Chloride Carbon Dioxide Anion Gap BUN Creatinine Estim Creat Clear Calc Estimated GFR POC Glucose 220 H Random Glucose Calcium Phosphorus Magnesium Procalcitonin Stool Occult Blood Stool Leukocytes, Qual C. difficile Tox B Gene Blood Type Antibody Screen Crossmatch 12/09/21 12/09/21 12/09/21 05:20 05:20 05:20 WBC 16.5 H RBC 3.73 L Hgb 7.0 L* Hct 25.2 L MCV 67.6 L MCH 18.8 L MCHC 27.8 L RDW 22.9 H Plt Count 164 MPV TNP Absolute Nucleated RBC 0.040 H Nucleated RBC % (auto) 0.2 PT INR VBG pH VBG pCO2 VBG pO2 VBG HCO3 VBG O2 Saturation VBG Base Excess Sodium 142 Potassium 3.1 L Chloride 106 Carbon Dioxide 29 Anion Gap 10 L BUN 29 H Creatinine 1.12 Estim Creat Clear Calc 76.2 Estimated GFR 48 POC Glucose Random Glucose 268 H Calcium 7.1 L Phosphorus 3.0 Magnesium 2.1 Procalcitonin 0.15 Stool Occult Blood Stool Leukocytes, Qual C. difficile Tox B Gene Blood Type Antibody Screen Crossmatch 12/09/21 12/09/21 06:46 07:14 WBC RBC Hgb Hct MCV MCH MCHC RDW Plt Count MPV Absolute Nucleated RBC Nucleated RBC % (auto) PT INR VBG pH VBG pCO2 VBG pO2 VBG HCO3 VBG O2 Saturation VBG Base Excess Sodium Potassium Chloride Carbon Dioxide Anion Gap BUN Creatinine Estim Creat Clear Calc Estimated GFR POC Glucose 255 H Random Glucose Calcium Phosphorus Magnesium Procalcitonin Stool Occult Blood Stool Leukocytes, Qual C. difficile Tox B Gene Blood Type A Positive Antibody Screen NEGATIVE Crossmatch See Detail Microbiology Microbiology Results: Microbiology 12/08/21 15:40 Bronch Lll Gram Stain - Final 12/08/21 Unknown Buttock Right Gram Stain - Final 12/06/21 20:12 Sputum - Suctioned Gram Stain - Final 12/06/21 20:12 Sputum - Suctioned Sputum Culture - Final 12/06/21 18:16 Urine Catheterized - Arias Catheter Urine Culture - Final No growth. 12/05/21 21:20 Blood - Venous Blood Culture - Preliminary No growth after 48 hours. 12/05/21 21:20 Blood - Venous Blood Culture - Preliminary No growth after 48 hours. 11/28/21 09:32 Sputum - Suctioned Gram Stain - Final 11/28/21 09:32 Sputum - Suctioned Sputum Culture - Final Kimberly albicans 11/25/21 01:47 Blood - Venous Blood Culture - Final No growth after 5 days. 11/25/21 01:42 Blood - Venous Blood Culture - Final No growth after 5 days. Procedures Date of Service Date of Service: 12/09/21 Assessment & Plan Assessment and plan (1) Atrial fibrillation with RVR: Status: Acute (2) Hyponatremia: Status: Acute (3) Acute hyperkalemia: Status: Acute (4) Dyspnea: Status: Acute (5) Acute anaphylaxis: Status: Acute Plan 66-year-old female with past medical history of alcoholic liver cirrhosis, dementia, hyponatremia presents to the hospital with AFib with RVR Developed HyperNa and getting D5W and now acute resp distress with ECHO c/w incr intravasc volume and 3 L positive fluid balance past 24 hrs 1. HyperNA: SNa 149now on D5W and NGT free water 2. Hypervol: again net 3.6 L pos past 24 hrs 3. HypoK REC: replace K, d/c norvasc; lasix40 ivq 8hrs; incr aldactone 50 qd; track UOP/renal func and K level will follow with team Time Spent With Patient Time: Total time spent is greater than 50% in coordination of care (as documented) at patient's floor/unit and/or counseling patient: Progress Note: Quality Stroke Does the patient have a stroke diagnosis?: No
[2021-12-09] MEDS: Apixaban 5 MG TABLET PO ×2 (11:33→21:50)
[2021-12-09] MEDS: dilTIAZem HCL 60 MG TABLET PO ×4 (11:34→21:50)
[2021-12-09] MEDS: Spironolactone 25 MG TABLET PO (11:34)
[2021-12-09] MEDS: Nystatin Powder 15 GM BOTTLE 1 APPL TOPICAL ×3 (11:34→22:13)
[2021-12-09] MEDS: Chlorhexidine Gluc Oral Rinse 15 ML MOUTHWASH BUCCAL ×3 (11:34→21:50)
[2021-12-09] MEDS: Metoprolol Tartrate 25 MG TABLET PO ×2 (11:34→21:50)
[2021-12-09] MEDS: Atorvastatin Calcium 10 MG TABLET PO (11:34)
[2021-12-09 11:47] LABS: Glucose, Whole Blood 233 mg/dL (60-115)
[2021-12-09] MEDS: Potassium Chloride Packet 20 MEQ PACKET 40 MEQ PO ×2 (11:50→14:23)
[2021-12-09] MEDS: Dextrose 5 % 1,000 ML 50 ML IVCONT (13:58)
[2021-12-09 16:15] LABS: Glucose, Whole Blood 182 mg/dL (60-115)
[2021-12-09] MEDS: dexmedeTOMIDidine HCL/NS 400 MCG/100 ML INFUS..BTL 20.3 MCG IVCONT ×2 (19:22→22:08)
--- NOTE | 2021-12-09 19:36 | PC.NURSE ---
Patient has fungal infections under breast and abdominal folds also to groin, Interdry applied. Patient has blister to right inner thigh covered with foam. Also has Stage2 to bilateral buttocks, Triad applied.
[2021-12-09] MEDS: vancomycin HCL 1,250 MG in 0.9 % Sodium Chloride 250 ML 166.67 MG IV (20:35)
[2021-12-09 21:09] LABS: Glucose, Whole Blood 220 mg/dL (60-115)
[2021-12-09] MEDS: Insulin Glargine,Hum.rec.anlog 100 UNIT/ML 10 ML VIAL 30 UNIT SUBCUT (21:49)
--- NOTE | 2021-12-09 22:38 | W.PM.CCHP ---
Procedures Date of Service Date of Service: 12/09/21 <REBECCA Villafana - Last Filed: 12/09/21 22:41> Central Line Placement Right IJ: Central Line Comments: A quick time-out was made for clarification and proper patient identification, patient was positioned, landmarks were identified, US used to locate a large compressible IJ. The right neck was widely prepped and draped in a full sterile fashion. Ultrasound was used to locate again the right IJ, the vein was cannulated on the 1st pass with an 18 gauge thin needle, dark nonpulsatile blood return was obtained. The wire was threaded, a small incision was made at its base and dilator inserted. A triple-lumen 16 F central venous catheter was advanced into the vein up to the hub without problems, wired was removed. Ports had good blood return and flushed x3. The catheter was secured with 3 sutures at 3 sites, a Biopatch and dry sterile dressing were applied. Post procedure chest x-ray showed the line to be in good position without pneumothorax. No bleeding or complications noted. <REBECCA Villafana - Last Filed: 12/09/21 22:41> Consent for Procedure: Elective - informed consent obtained (From the patient and the patient's daughter) <REBECCA Villafana Last Filed: 12/09/21 22:41> Time out performed: Yes <REBECCA Villafana Last Filed: 12/09/21 22:41> Sterile Technique Used: Yes <REBECCA Villafana Last Filed: 12/09/21 22:41> Patient placed on monitor/pulse ox: Yes <REBECCA Villafana Last Filed: 12/09/21 22:41> MD prep: mask, gown and gloves <REBECCA Villafana Last Filed: 12/09/21 22:41> Central line prep: Chlorhexidine scrub <REBECCA Villafana Last Filed: 12/09/21 22:41> Local anesthesia used: lidocaine 2% <REBECCA Villafana Last Filed: 12/09/21 22:41> Amount of anesthesia used (ml): 5 <REBECCA Villafana Last Filed: 12/09/21 22:41> Ultrasound used for placement: Yes <REBECCA Villafana - Last Filed: 12/09/21 22:41> Central line lumen inserted: triple <REBECCA Villafana - Last Filed: 12/09/21 22:41> Post procedure: sutured in place, good blood return, all ports aspirated, flushed, capped and sterile dressing applied <REBECCA Villafana - Last Filed: 12/09/21 22:41> Post procedure x-ray: tip of catheter in good position and no pneumothorax seen <REBECCA Villafana - Last Filed: 12/09/21 22:41> Patient tolerated procedure: well <REBECCA Villafana - Last Filed: 12/09/21 22:41> Complications: none <REBECCA Villafana - Last Filed: 12/09/21 22:41>
--- NOTE | 2021-12-09 23:00 | P.PNCC_ITS ---
Subjective Subjective Date of Service: 12/09/21 Interval History: Mrs. Reddy was transferred down to the ICU and intubated Dec 06 [facility] of altered mental status with gross ventilatory insufficiency. The patient is a 66-year-old female with past medical history of schizoaffective disorder, obesity, alcoholic cirrhosis, dementia, hyponatremia, and asthma. She lives at [facility] and has a guardian.? She is well known by Dr. Rony Hogan.? He and the [facility] staff told us that she walks and talks and is a regular person. The patient was [facility] ED from the [facility] on November 24 because palpitations and shortness of breath.? In the ED, she was afebrile, tachycardic in Afib, normotensive, and mildly tachypneic, with a sat of 92% on room air.? White count was 17, hemoglobin 9.8, sodium was 122, BUN and creatinine 14/0.8, BNP was 78. CXR showed mild pulmonary vascular congestion with right basilar patchy opacity and possibly a small left pleural effusion.? Abdom, CT done bec of c/o belly pain showed? no acute findings within the abdomen or pelvis.? Compared to the previous CT in 2018, there was interval increase in size of a fluid attenuating cyst within the right adnexa, measuring up to 5.2 cm,? There was cholelithiasis, anasarca, and small ascites.? The lung martinez showed small right pleural effusion with accompanying atelectasis. The patient was admitted to Medicine for management of atrial fibrillation with RVR, possible CHF, hyperkalemia, and hyponatremia.? The atrial fibrillation was managed with diltiazem, metoprolol and Eliquis, the hyponatremia was managed with water restriction and urea, and the hyperkalemia in the usual fashion. Hosp course was marked by agitation that responded well to giving her the dose of Haldol that she was taking at [facility].? On November 27, she developed what seemed to be angioedema with respiratory distress that required tracheal intubation.? The precipitating factor was unable to be determined.? Treated in the usual fashion.? Able to be extubated on November 29.? She had persistent AFib with RVR, and significant encephalopathy, thought related to underlying suboptimally controlled schizoaffective disorder.? Amiodarone was added resulting in improved rate control.? Lamictal was added to Haldol resulting in improved behavior.? She was started on Unasyn for aspiration on December 02 and started on Diamox.? The patient was transferred out of the ICU on December 02. In Dr. James?s note of Dec 05, he described her respiratory status as much better and commented that she was more alert and more interactive.? She was u sing her BiPAP at night.? Sat was 94% on 30% oxygen.? On his exam on the morning of Dec 06, however, her respiratory status was tenuous, she was tachypneic with decreased responsiveness.? Arterial blood gas showed 7.34/85/81/+17 (uncertain FiO2).? Her eyes were open, but she was lethargic and completely altered, barely resonding to any questions.? Chest excursion with each breath was minimal.? Sat was 93% on 5 L oxygen by nasal cannula.? The patient was coughing and had no gag response to deep sxn with a Yankauer.? Neuro exam was nonfocal. Other labs were generally unremarkable.? The patient was transferred down to the ICU and the trachea was intubated.? The post intubation CXR showed left mid and lower lung collapse, with central pulmonary vascular prominence.? Comparing this film to the for other films in her folder between yesterday morning and going back to November 24, each film seems to show less and less of the left mid and lower lung with the left lung most fully expanded on the film from November 24. In the ICU, the Lamictal and Haldol were discontinued and the Diamox was increased.? The Unasyn was continued.? She was given IV diltiazem for rate control.? She was put on propofol and fentanyl for sedation. A chest CT was done because of the left lower lobe collapse, and head CT because of the altered mental status.? Head CT was unremarkable.? Chest CT showed that the endotracheal tube was into the takeoff of the right mainstem bronchus.? There was left lower lobe collapse and some patchy infiltrates in the right upper lobe and right middle lobe.? The endotracheal tube was pulled back.? Incidentally noted was a dilated main pulmonary artery, suggestive of pulmonary hypertension. We gave her a long propofol holiday yesterday.? Eyes opened fairly quickly, but she was completely noninteractive.? Eyes just staring up at the ceiling.? No tracking, no response to confrontation.? She did have purposeful withdrawal to painful stimulation.? We bronch?ed her and sucked out a left sided mucus plug.? CXR this morning is much better expanded on the left. We changed her to Precedex yesterday, and turned the Precedex off for number of hours today.? Her eyes were open fairly early, but it took a couple of hours for her to start being interactive.? After a while, she reliably nodded her head yes and no to questions. ?She went on to pressure support ventilation with no problem, but required 15 cm pressure support to achieve tidal volume in the mid 300s.? Her minute volume tania.? So we terminated the trial and put her back on Precedex to try again tomorrow. Yesterday, Unasyn was d/c?d and she was changed to Vanco and Zosyn bec of persistent fever and leukocytosis.? T-max today down to 101.1.? HR 80, Afib.? BP 130/55 on Levophed 0.05 ug.? She?s also on diltiazem 60 mg qid and metoprolol 25 mg bid.? Sat 96% on 30%/+6.? This morning's CVBG showed 7.45/40/+4.? No JVD at 30 degrees.? Chest is clear to auscultation, with normal expiratory phase.? Heart rate and rhythm are irregular with normal-sounding S1, and S2, with no mu rmur or gallops.? The abdomen is obese, and benign.? She has about 2+ anasarca. LABORATORY DATA:? Below.? Notably, white count is down.? Hb down to 7.0.? Platelet count dropping slowly.? BUN/creatinine down slightly, POCs running about 250, BNP down to 117 MICROBIOLOGY:? Urinalysis from 12/06 negative.? Sputum culture from 12/06 shows no polys, no organisms.? Blood cultures from 12/05 no growth so far.? Bronch spec from 12/08 is negative.? Stool for CDiff tox was negative. ECHOCARDIOGRAM done by the computer service technician Dec 07.? My interpretation: Normal LV wall thickness, size, function.? Normal RV size and function.? Tricuspid CWD measured 3.1 m/sec (gradient 38mm).? IVC 2.2 cm with limited insp collapse.? Estim CVP 15cm.? Estim RVSP 53mm. IMPRESSION: 1. Underlying schizoaffective disorder and dementia.? Functional mental status at baseline. 2. Has been encephalopathic since extubation on Nov 29.? Unclear why.? Undoubtedly toxic metabolic.? She was given Haldol and started on Lamictal.? Her MS seemed to improve, with a good MS report on Dec 05, but then a very depressed MS on Dec 06, which undoubtedly contributed to her ventilatory insufficiency, which lead to her requiring tracheal intubation. ??? I thought maybe the Lamictal was responsible for the depressed MS.? We stopped that on arrival to ICU.? Repeat head CT was negative.? Mental status today finally became interactive.? Put her back on Precedex, pending improvement in her ventilatory capacity. 3. Acute hypercarbic respiratory failure.? Serum bicarb and venous pCO2 levels from the first days of her hospitalization here suggest that the patient is not a CO2 retainer.? The cause of her hypercarbia on Dec 06 was undoubtedly the fact that she was barely breathing.? The cause of the latter was likely rooted in MS depression and/or aspiration, and/or plugging in her left mid and lower lung (the latter of which could have been 2? to aspiration). ??? At this point, she?s requiring almost full ventilatory support (PSV > 15 cm) so she?s not ready to extubate.? But she?s not having an oxygenation problem. 4. Left lower and mid lung collapse.? Muc plug vs aspiration.? No sign of a foreign body on the CT scan.? Post bronch, her left lung aeration is considerably improved. 5. KIARA.? Her renal indices on admission would suggest that she does not have CKD.? Her renal indices tania with diuresis.? Echo shows moderate pulmon HTN, which is confirmed by the CT scan.? It?s a certainty that she has right heart failure and cardiorenal syndrome.? And she is hugely total body fluid overloaded. ?The question is how successful diuresis will be.? I wouldn?t be surprised if we have to support her blood pressure with Levophed while we?re diuresing her.? Discussed with Dr. Jansen from renal.? We?re starting with Lasix 40 mg bid, plus Aldactone. 6. Pulmonary HTN.? Given her obesity and head and neck habitus, I would not be surprised if the patient has ANGEL.? That and her obesity are the cause of her pulmonary hypertension. 7. Afib/flutter.? Rate is controlled on the diltiazem and the metoprolol.? I?m certainly not going to try to cardiovert her.? Continuing Eliquis. 8. ID:? Fever and WBC are improving on day 1 of the vanco and Zosyn.? We?ll continue that.? The source of infection, if there is any, hasn?t been identified. ?She does have a known DTI. 9. DTI on her buttocks was examined yesterday with Dr. Jiménez.? About a 4-5cm diam purpuric area on the midline of both buttocks.? No fluctulent areas.? Those are pressure injuries.? The nurses are managing the wound appropriately, and the patient is being followed by the wound nurse.? A culture grew skin sharda. 9. Hypernatremia. ?Resolved on the D5W. 10. Hyperglycemia.? Started her on Lantus and SS Lispro.? I?ll incr the Lantus to 30 u bid. 11. Metabolic alkalosis.? BE was up to 19.? We started her on Diamox.? Now much improved.? I cut the dose way down. 12. Anemia.? Stool guiac was positive yest, but stool is brown.? She?s not on any PPI.? And she? on Eliquis.? I?ll start bid PPI. Critical Care Time (minutes): 60 Physical Exam Verdana 4l Vital Signs: Verdana 4d Verdana 4d Vital Signs: Verdana 4d Verdana 4Bd Last Vital Signs Verdana 4d Mailing Section Clerk New 4d Mailing Section Clerk New 4d Temp 100.6 F H 12/09/21 21:58 Mailing Section Clerk New 4d Pulse 82 12/09/21 21:58 Mailing Section Clerk New 4d Resp 20 12/09/21 21:58 BP 152/67 H 12/09/21 21:58 Pulse Ox 96 12/09/21 21:58 Oxygen Flow Rate 30 12/02/21 00:00 BMI result Body Mass Index 57.7 Objective Data Labs CBC & Chem 7: 12/09/21 05:20 12/09/21 05:20 Labs: Laboratory Results - last 24 hr 12/09/21 12/09/21 12/09/21 05:18 05:20 05:20 WBC 16.5 H RBC 3.73 L Hgb 7.0 L* Hct 25.2 L MCV 67.6 L MCH 18.8 L MCHC 27.8 L RDW 22.9 H Plt Count 164 MPV TNP Absolute Nucleated RBC 0.040 H Nucleated RBC % (auto) 0.2 PT 22.5 H INR 2.0 H VBG pH 7.45 H VBG pCO2 40 VBG pO2 42 VBG HCO3 28 H VBG O2 Saturation 69.0 VBG Base Excess 4.3 Sodium Potassium Chloride Carbon Dioxide Anion Gap BUN Creatinine Estim Creat Clear Calc Estimated GFR POC Glucose Random Glucose Calcium Phosphorus Magnesium Procalcitonin Blood Type Antibody Screen Crossmatch 12/09/21 12/09/21 12/09/21 05:20 05:20 06:46 WBC RBC Hgb Hct MCV MCH MCHC RDW Plt Count MPV Absolute Nucleated RBC Nucleated RBC % (auto) PT INR VBG pH VBG pCO2 VBG pO2 VBG HCO3 VBG O2 Saturation VBG Base Excess Sodium 142 Potassium 3.1 L Chloride 106 Carbon Dioxide 29 Anion Gap 10 L BUN 29 H Creatinine 1.12 Estim Creat Clear Calc 76.2 Estimated GFR 48 POC Glucose Random Glucose 268 H Calcium 7.1 L Phosphorus 3.0 Magnesium 2.1 Procalcitonin 0.15 Blood Type A Positive Antibody Screen NEGATIVE Crossmatch See Detail 12/09/21 12/09/21 12/09/21 07:14 11:32 16:12 WBC RBC Hgb Hct MCV MCH MCHC RDW Plt Count MPV Absolute Nucleated RBC Nucleated RBC % (auto) PT INR VBG pH VBG pCO2 VBG pO2 VBG HCO3 VBG O2 Saturation VBG Base Excess Sodium Potassium Chloride Carbon Dioxide Anion Gap BUN Creatinine Estim Creat Clear Calc Estimated GFR POC Glucose 255 H 233 H 182 H Random Glucose Calcium Phosphorus Magnesium Procalcitonin Blood Type Antibody Screen Crossmatch 12/09/21 21:05 WBC RBC Hgb Hct MCV MCH MCHC RDW Plt Count MPV Absolute Nucleated RBC Nucleated RBC % (auto) PT INR VBG pH VBG pCO2 VBG pO2 VBG HCO3 VBG O2 Saturation VBG Base Excess Sodium Potassium Chloride Carbon Dioxide Anion Gap BUN Creatinine Estim Creat Clear Calc Estimated GFR POC Glucose 220 H Random Glucose Calcium Phosphorus Magnesium Procalcitonin Blood Type Antibody Screen Crossmatch Microbiology Microbiology Results: Microbiology 12/08/21 15:40 Bronch Lll Gram Stain - Final 12/08/21 15:40 Bronch Lll Routine Culture - Preliminary No growth to date. 12/08/21 Unknown Buttock Right Gram Stain - Final 12/08/21 Unknown Buttock Right Routine Culture - Preliminary 12/06/21 20:12 Sputum - Suctioned Gram Stain - Final 12/06/21 20:12 Sputum - Suctioned Sputum Culture - Final 12/06/21 18:16 Urine Catheterized - Arias Catheter Urine Culture - Final No growth. 12/05/21 21:20 Blood - Venous Blood Culture - Preliminary No growth after 48 hours. 12/05/21 21:20 Blood - Venous Blood Culture - Preliminary No growth after 48 hours. 11/28/21 09:32 Sputum - Suctioned Gram Stain - Final 11/28/21 09:32 Sputum - Suctioned Sputum Culture - Final Kimberly albicans 11/25/21 01:47 Blood - Venous Blood Culture - Final No growth after 5 days. 11/25/21 01:42 Blood - Venous Blood Culture - Final No growth after 5 days. Quality Stroke Does the patient have a stroke diagnosis?: No VTE Prior VTE?: No VTE Risk Level:: Medical - moderate - high VTE Device Contraindication: Treatment Not Indicated VTE Drug Contraindication: N/A - Med Ordered Critical Care Time Critical Care Time (minutes): 60
[2021-12-09] MEDS: Alteplase Cath Clear 2 MG VIAL 4 MG INTRACATH (23:30)
[2021-12-10] VITALS (37 sets, daily range): BP systolic 96–154; BP diastolic 40–70; PULSE 68–95; RESP 15–31; TEMP 33.4–38.8; O2SAT 91–97; BMI 60.2
[2021-12-10] MEDS: dexmedeTOMIDidine HCL/NS 400 MCG/100 ML INFUS..BTL 20.3 MCG IVCONT ×3 (00:42→17:45)
[2021-12-10] MEDS: Piperacillin Sodium/Tazobactam 4.5 GM in 0.9 % Sodium Chloride 100 ML IV ×5 (01:53→23:20)
[2021-12-10] MEDS: acetaZOLAMIDE sodium 500 MG VIAL 250 MG IVPUSH ×2 (02:03→15:09)
[2021-12-10] MEDS: 0.9 % Sodium Chloride Flush 3 ML SYRINGE IVFLUSH (02:04)
--- NOTE | 2021-12-10 03:53 | PC.NURSE ---
Assumed care of pt at 1900. Pt on AC vent settings and tolerating well. Lightly sedated on Precedex IV drip. Opens eyes to name but does not follow commands. Monitor shows afib, rate 70's-80's. BP stable to levophed and started to wean drip, currently 0.04 mcg/kg/min. Cardizem drip continues at 2.5 mcg/hr. Temp high 101.1 core. Tube feeds shut off due to high aspirant 280 ml. REBECCA Partida aware of tube feeds and said to leave off as the plan is to extubate in the morning, Pt turned and repos q2 hr.
[2021-12-10 05:13] LABS: Glucose, Whole Blood 193 mg/dL (60-115)
[2021-12-10] MEDS: Albuterol/Iprat 2.5/0.5MG 3 ML AMPUL.NEB INHALE ×4 (05:23→16:56)
[2021-12-10 05:44] LABS: VBG Base Excess 3.4 mmol/L; VBG HCO3 26 mmol/L (22-26); VBG pCO2 34 mmHg; VBG pH 7.49 (7.32-7.43); VBG pO2 41 mmHg
[2021-12-10 05:52] LABS: Venous Blood Gas Refer to POC result
[2021-12-10 05:54] LABS: Mean Corpuscular HGB Conc 29.8 g/dl (31.0-35.0); Mean Corpuscular Hemoglobin 20.8 pg (27.0-33.0); Mean Corpuscular Volume 69.8 fL (80.0-98.0); PLT ABN DIST 1
[2021-12-10 05:56] LABS: Hematocrit 32.2 % (37.0-47.0); Hemoglobin 9.6 g/dl (12.0-16.0); NRBC Pct Auto 0.5 /100WBC (0.0-0.2); Platelet Count 173 X10*3/uL (160-400); Red Blood Count 4.61 X10*6/uL (4.20-5.50); Red Cell Distribution Width 25.6 % (11.0-16.0); White Blood Count 16.6 X10*3/uL (4.8-10.8)
[2021-12-10 06:14] LABS: Anion Gap 12 (12-20); Blood Urea Nitrogen 18 mg/dL (9-16); Calcium 7.6 mg/dL (8.4-10.2); Carbon Dioxide 25 mmol/L (22-29); Chloride 109 mmol/L (96-108); Creatinine Clr Calc Pharmacy 98.6; Estimated Glomerular Filt Rate > 60; Glucose Random 195 mg/dL (60-115); Phosphorus 2.3 mg/dL (2.7-4.5); Sodium 143 mmol/L (135-145)
--- NOTE | 2021-12-10 07:16 | P.CDIC_ITS ---
CDI Concurrent Query Documentation Clarification: PHYSICIAN'S DOCUMENTATION REQUEST Date of Query: 12/10/21 0717 Patient Name: Valentine Reddy Admit Date: 11/25/21 Dear Doctor, A review of the medical record indicates additional documentation may be indicated. Please review below and update the documentation accordingly. Clinical Indicators: Verdana 4Bd Risk Factors/Clinical Indicators/Treatments Verdana 4d Wound care assessment notes 12/08 - Pressure Injury Stage II bilateral buttocks. deep tissue injury, edematous, peeling skin, slough. Foam dressing in place, Triad. Wound care notes 12/06 - pressure injury found after transfer to ICU from [facility] to b/l buttocks, skin purple, macerated. Based on the above, could you please provide, in the Progress Notes, further information regarding the ulcer/wound: Specifics: stage and POA * If a pressure ulcer, please also include the stage* of the ulcer: * Stage 1 * Stage 2 * Stage 3 * Stage 4 * Unstageable * Suspected deep tissue injury * Unable to determine *Source: National Pressure Ulcer Advisory Panel (NPUAP) Use of terms such as suspected, likely, concern for, or probable (associated with a specific diagnosis that is being evaluated, monitored, or treated as if it exists) are acceptable and can be coded in the inpatient setting, when documented at the time of discharge. Thank you, Claudia Franklin [facility], CDIS Extension: [phone] Please use your independent medical judgment in providing your response. THIS QUERY IS PART OF THE PERMANENT MEDICAL RECORD Provider Response: Other Other Diagnosis: It is stated clearly in my notes that the patient has a DTI.
[2021-12-10] MEDS: dilTIAZem HCL 60 MG TABLET PO ×4 (07:17→21:41)
[2021-12-10] MEDS: Metoprolol Tartrate 25 MG TABLET PO ×2 (07:17→21:41)
[2021-12-10] MEDS: Apixaban 5 MG TABLET PO ×2 (07:18→21:41)
[2021-12-10] MEDS: Atorvastatin Calcium 10 MG TABLET PO (07:18)
[2021-12-10] MEDS: Spironolactone 25 MG TABLET PO (07:18)
[2021-12-10] MEDS: Chlorhexidine Gluc Oral Rinse 15 ML MOUTHWASH BUCCAL ×3 (07:18→21:41)
[2021-12-10] MEDS: dexmedeTOMIDidine HCL/NS 400 MCG/100 ML INFUS..BTL 12.18 MCG IVCONT (07:18)
[2021-12-10] MEDS: Insulin Glargine,Hum.rec.anlog 100 UNIT/ML 10 ML VIAL 30 UNIT SUBCUT ×2 (07:19→21:41)
[2021-12-10] MEDS: Nystatin Powder 15 GM BOTTLE 1 APPL TOPICAL ×3 (07:20→22:25)
[2021-12-10] MEDS: Insulin Lispro 100 UNIT/ML 3 ML VIAL SUBCUT ×2 (07:25→13:02)
[2021-12-10 07:27] LABS: Glucose, Whole Blood 194 mg/dL (60-115)
[2021-12-10] MEDS: Potassium Chloride Packet 20 MEQ PACKET 40 MEQ PO ×3 (08:55→15:09)
[2021-12-10] MEDS: Furosemide 40 MG/4 ML VIAL IVPUSH (08:56)
[2021-12-10 11:26] LABS: Glucose, Whole Blood 173 mg/dL (60-115)
--- NOTE | 2021-12-10 12:38 | MHC.CM.PN ---
Pt is a LTC resident of [facility] and continues in ICU on ventilatory support secondary to respiratory failure. Pt will be weaned and hopefully extubated this weekend and will eventually return to [facility]. Message left for her guardian, Eden Lizarraga in [place] and clinical updates remitted to [facility]. Pt is a fullcode per her previously expressed wishes. CM to follow
--- NOTE | 2021-12-10 12:58 | P.PNNP_ITS ---
Subjective Subjective Date of Service: 12/10/21 Principal diagnosis: dysnatremia, hypervol Interval history: Mrs. Reddy was transferred down to the ICU and intubated Dec 06 [facility] of altered mental status with gross ventilatory insufficiency. The patient is a 66-year-old female with past medical history of schizoaffective disorder, obesity, alcoholic cirrhosis, dementia, hyponatremia, and asthma. She lives at [facility] and has a guardian.? She is well known by Dr. Rony Hogan.? He and the [facility] staff told us that she walks and talks and is a regular person. The [facility] because palpitations and shortness of breath.? In the ED, she was afebrile, tachycardic in Afib, normotensive, and mildly tachypneic, with a sat of 92% on room air.? White count was 17, hemoglobin 9.8, sodium was 122, BUN and creatinine 14/0.8, BNP was 78. CXR showed mild pulmonary vascular congestion with right basilar patchy opacity and possibly a small left pleural effusion.? Abdom, CT done bec of c/o belly pain showed? no acute findings within the abdomen or pelvis.? Compared to the previous CT in 2018, there was interval increase in size of a fluid attenuating cyst within the right adnexa, measuring up to 5.2 cm,? There was cholelithiasis, anasarca, and small ascites.? The lung martinez showed small right pleural effusion with accompanying atelectasis. The patient was admitted to Medicine for management of atrial fibrillation with RVR, possible CHF, hyperkalemia, and hyponatremia.? The atrial fibrillation was managed with diltiazem, metoprolol and Eliquis, the hyponatremia was managed with water restriction and urea, and the hyperkalemia in the usual fashion. Hosp course was marked by agitation that responded well to giving her the dose of Haldol that she was taking at [facility].? On November 27, she developed what seemed to be angioedema with respiratory distress that required tracheal intubation.? The precipitating factor was unable to be determined.? Treated in the usual fashion.? Able to be extubated on November 29.? She had persistent AFib with RVR, and significant encephalopathy, thought related to underlying suboptimally controlled schizoaffective disorder.? Amiodarone was added resulting in improved rate control.? Lamictal was added to Haldol resulting in improved behavior.? She was started on Unasyn for aspiration on December 02 and started on Diamox.? The patient was transferred out of the ICU on December 02. In Dr. James?s note of Dec 05, he described her respiratory status as much better and commented that she was more alert and more interactive.? She was using her BiPAP at night.? Sat was 94% on 30% oxygen.? On his exam on the morning of Dec 06, however, her respiratory status was tenuous, she was tachypneic with decreased responsiveness.? Arterial blood gas showed 7.34/85/81/+17 (uncertain FiO2).? Her eyes were open, but she was lethargic and completely altered, barely resonding to any questions.? Chest excursion with each breath was minimal.? Sat was 93% on 5 L oxygen by nasal cannula.? The patient was coughing and had no gag response to deep sxn with a Yankauer.? Neuro exam was nonfocal. Other labs were generally unremarkable.? The patient was transferred down to the ICU and the trachea was intubated.? The post intubation CXR showed left mid and lower lung collapse, with central pulmonary vascular prominence.? Comparing this film to the for other films in her folder between yesterday morning and going back to November 24, each film seems to show less and less of the left mid and lower lung with the left lung most fully expanded on the film from November 24. In the ICU, the Lamictal and Haldol were discontinued and the Diamox was increased.? The Unasyn was continued.? She was given IV diltiazem for rate control.? She was put on propofol and fentanyl for sedation. A chest CT was done because of the left lower lobe collapse, and head CT because of the altered mental status.? Head CT was unremarkable.? Chest CT showed that the endotracheal tube was into the takeoff of the right mainstem bronchus.? There was left lower lobe collapse and some patchy infiltrates in the right upper lobe and right middle lobe.? The endotracheal tube was pulled back.? Incidentally noted was a dilated main pulmonary artery, suggestive of pulmonary hypertension. We gave her a long propofol holiday yesterday.? Eyes opened fairly quickly, but she was completely noninteractive.? Eyes just staring up at the ceiling.? No tracking, no response to confrontation.? She did have purposeful withdrawal to painful stimulation.? We bronch?ed her and sucked out a left sided mucus plug.? CXR this morning is much better expanded on the left. We changed her to Precedex yesterday, and turned the Precedex off for number of hours today.? Her eyes were open fairly early, but it took a couple of hours for her to start being interactive.? After a while, she reliably nodded her head yes and no to questions. ?She went on to pressure support ventilation with no problem, but required 15 cm pressure support to achieve tidal volume in the mid 300s.? Her minute volume tania.? So we terminated the trial and put her back on Precedex to try again tomorrow. Yesterday, Unasyn was d/c?d and she was changed to Vanco and Zosyn bec of persistent fever and leukocytosis.? T-max today down to 101.1.? HR 80, Afib.? BP 130/55 on Levophed 0.05 ug.? She?s also on diltiazem 60 mg qid and metoprolol 25 mg bid.? Sat 96% on 30%/+6.? This morning's CVBG showed 7.45/40/+4.? No JVD at 30 degrees.? Chest is clear to auscultation, with normal expiratory phase.? Heart rate and rhythm are irregular with normal-sounding S1, and S2, with no murmur or gallops.? The abdomen is obese, and benign.? She has about 2+ anasarca. LABORATORY DATA:? Below.? Notably, white count is down.? Hb down to 7.0.? Platelet count dropping slowly.? BUN/creatinine down slightly, POCs running about 250, BNP down to 117 MICROBIOLOGY:? Urinalysis from 12/06 negative.? Sputum culture from 12/06 shows no polys, no organisms.? Blood cultures from 12/05 no growth so far.? Bronch spec from 12/08 is negative.? Stool for CDiff tox was negative. ECHOCARDIOGRAM done by the fish and wildlife technician Dec 07.? My interpretation: Normal LV wall thickness, size, function.? Normal RV size and function.? Tricuspid CWD measured 3.1 m/sec (gradient 38mm).? IVC 2.2 cm with limited insp collapse.? Estim CVP 15cm.? Estim RVSP 53mm. IMPRESSION: 1. Underlying schizoaffective disorder and dementia.? Functional mental status at baseline. 2. Has been encephalopathic since extubation on Nov 29.? Unclear why.? Undoubtedly toxic metabolic.? She was given Haldol and started on Lamictal.? Her MS seemed to improve, with a good MS report on Dec 05, but then a very depressed MS on Dec 06, which undoubtedly contributed to her ventilatory insufficiency, which lead to her requiring tracheal intubation. ??? I thought maybe the Lamictal was responsible for the depressed MS.? We stopped that on arrival to ICU.? Repeat head CT was negative.? Mental status today finally became interactive.? Put her back on Precedex, pending improvement in her ventilatory capacity. 3. Acute hypercarbic respiratory failure.? Serum bicarb and venous pCO2 levels from the first days of her hospitalization here suggest that the patient is not a CO2 retainer.? The cause of her hypercarbia on Dec 06 was undoubtedly the fact that she was barely breathing.? The cause of the latter was likely rooted in MS depression and/or aspiration, and/or plugging in her left mid and lower lung (the latter of which could have been 2? to aspiration). ??? At this point, she?s requiring almost full ventilatory support (PSV > 15 cm) so she?s not ready to extubate.? But she?s not having an oxygenation problem. 4. Left lower and mid lung collapse.? Muc plug vs aspiration.? No sign of a foreign body on the CT scan.? Post bronch, her left lung aeration is consider ably improved. 5. KIARA.? Her renal indices on admission would suggest that she does not have CKD.? Her renal indices tania with diuresis.? Echo shows moderate pulmon HTN, which is confirmed by the CT scan.? It?s a certainty that she has right heart failure and cardiorenal syndrome.? And she is hugely total body fluid overloaded. ?The question is how successful diuresis will be.? I wouldn?t be surprised if we have to support her blood pressure with Levophed while we?re diuresing her.? Discussed with Dr. Jansen from renal.? We?re starting with Lasix 40 mg bid, plus Aldactone. 6. Pulmonary HTN.? Given her obesity and head and neck habitus, I would not be surprised if the patient has ANGEL.? That and her obesity are the cause of her pulmonary hypertension. 7. Afib/flutter.? Rate is controlled on the diltiazem and the metoprolol.? I?m certainly not going to try to cardiovert her.? Continuing Eliquis. 8. ID:? Fever and WBC are improving on day 1 of the vanco and Zosyn.? We?ll continue that.? The source of infection, if there is any, hasn?t been identified. ?She does have a known DTI. 9. DTI on her buttocks was examined yesterday with Dr. Jiménez.? About a 4-5cm diam purpuric area on the midline of both buttocks.? No fluctulent areas.? Those are pressure injuries.? The nurses are managing the wound appropriately, and the patient is being followed by the wound nurse.? A culture grew skin sharda. 9. Hypernatremia. ?Resolved on the D5W. 10. Hyperglycemia.? Started her on Lantus and SS Lispro.? I?ll incr the Lantus to 30 u bid. 11. Metabolic alkalosis.? BE was up to 19.? We started her on Diamox.? Now much improved.? I cut the dose way down. 12. Anemia.? Stool guiac was positive yest, but stool is brown.? She?s not on any PPI.? And she? on Eliquis.? I?ll start bid PPI. Physical Exam Verdana 4l Vital Signs: Verdana 4d Verdana 4d Vital Signs: Verdana 4d Verdana 4Bd Last Vital Signs Verdana 4d Clocksmith New 4d Clocksmith New 4d Temp 100.8 F H 12/10/21 12:00 Clocksmith New 4d Pulse 93 12/10/21 12:00 Clocksmith New 4d Resp 29 H 12/10/21 12:00 BP 124/58 L 12/10/21 12:00 Pulse Ox 94 12/10/21 12:00 Oxygen Flow Rate 30 12/02/21 00:00 BMI result Body Mass Index 60.2 Const: Other: looks very sick with RR 40, tachypnic rhnochi/wheezes RRR abd obses edema General: cooperative, no acute distress, alert, awake, lethargic (But follows commands) and other ( somnolent, arousable to painful stimuli, does not follow commands) Nutritional Appearance: obese Orientation/consciousness: patient oriented x3 and lethargic (But follows commands) Eyes: General: appearance normal, both eyes and all related structures Sclerae: sclerae normal Pupils: Equal, round and reactive pupils present EOM: EOMs intact bilaterally Neck: Neck: Yes normal visual inspection, Yes no lymphadenopathy, Yes trachea midline and Yes supple Chest: Chest palpation & inspection: normal inspection of the chest Resp: Effort & Inspection: normal respiratory effort and no respiratory distress Auscultation: clear to auscultation bilaterally, crackles (Bibasilar) and no wheezes Cardio: Palpation: normal PMI Rate: regular rate and tachycardic Rhythm: regular rhythm and abnormal rhythm irregularly irregular Heart sounds: S1 normal heart sound present, S2 normal heart sound present, no gallops, no murmurs and no rubs GI: Palpation (GI): Soft to palpation, nontender and Other GI palpation findings pre sent ( Nontender) Auscultation: normal bowel sounds Skin: General skin exam: no rashes or lesions noted Lesions: other Wounds: wounds noted (buttock area,unstageable,no deep to bone) Neuro: General: patient oriented x3 Cranial nerves: Yes Equal, round and reactive pupils present and Yes Other cranial nerve findings present Cognition (Neuro): normal cognition Extrem: General: Yes normal to inspection, Yes no pedal edema, No clubbing, No cyanosis and Yes pedal edema (1+ bilateral) Psych: Mental Status: other Objective Data Labs CBC & Chem 7: 12/10/21 05:30 12/10/21 05:30 Labs: Laboratory Results - last 24 hr 12/09/21 12/09/21 12/09/21 06:46 16:12 21:05 WBC RBC Hgb Hct MCV MCH MCHC RDW Plt Count MPV Absolute Nucleated RBC Nucleated RBC % (auto) VBG pH VBG pCO2 VBG pO2 VBG HCO3 VBG O2 Saturation VBG Base Excess Sodium Potassium Chloride Carbon Dioxide Anion Gap BUN Creatinine Estim Creat Clear Calc Estimated GFR POC Glucose 182 H 220 H Random Glucose Calcium Phosphorus Magnesium Blood Type A Positive Antibody Screen NEGATIVE Crossmatch See Detail 12/10/21 12/10/21 12/10/21 05:09 05:30 05:30 WBC 16.6 H RBC 4.61 D Hgb 9.6 L D Hct 32.2 L D MCV 69.8 L MCH 20.8 L MCHC 29.8 L RDW 25.6 H Plt Count 173 MPV TNP Absolute Nucleated RBC 0.090 H Nucleated RBC % (auto) 0.5 H VBG pH VBG pCO2 VBG pO2 VBG HCO3 VBG O2 Saturation VBG Base Excess Sodium 143 Potassium 3.0 L Chloride 109 H Carbon Dioxide 25 Anion Gap 12 BUN 18 H Creatinine 0.89 Estim Creat Clear Calc 98.6 Estimated GFR > 60 POC Glucose 193 H Random Glucose 195 H Calcium 7.6 L D Phosphorus 2.3 L Magnesium 2.0 Blood Type Antibody Screen Crossmatch 12/10/21 12/10/21 12/10/21 05:37 07:23 11:22 WBC RBC Hgb Hct MCV MCH MCHC RDW Plt Count MPV Absolute Nucleated RBC Nucleated RBC % (auto) VBG pH 7.49 H VBG pCO2 34 VBG pO2 41 VBG HCO3 26 VBG O2 Saturation 70.0 VBG Base Excess 3.4 Sodium Potassium Chloride Carbon Dioxide Anion Gap BUN Creatinine Estim Creat Clear Calc Estimated GFR POC Glucose 194 H 173 H Random Glucose Calcium Phosphorus Magnesium Blood Type Antibody Screen Crossmatch Microbiology Microbiology Results: Microbiology 12/08/21 Unknown Buttock Right Gram Stain - Final 12/08/21 Unknown Buttock Right Routine Culture - Final 12/08/21 15:40 Bronch Lll Gram Stain - Final 12/08/21 15:40 Bronch Lll Routine Culture - Preliminary No growth to date. 12/06/21 20:12 Sputum - Suctioned Gram Stain - Final 12/06/21 20:12 Sputum - Suctioned Sputum Culture - Final 12/06/21 18:16 Urine Catheterized - Arias Catheter Urine Culture - Final No growth. 12/05/21 21:20 Blood - Venous Blood Culture - Preliminary No growth after 48 hours. 12/05/21 21:20 Blood - Venous Blood Culture - Preliminary No growth after 48 hours. 11/28/21 09:32 Sputum - Suctioned Gram Stain - Final 11/28/21 09:32 Sputum - Suctioned Sputum Culture - Final Kimberly albicans 11/25/21 01:47 Blood - Venous Blood Culture - Final No growth after 5 days. 11/25/21 01:42 Blood - Venous Blood Culture - Final No growth after 5 days. Procedures Date of Service Date of Service: 12/10/21 Assessment & Plan Assessment and plan (1) Atrial fibrillation with RVR: Status: Acute (2) Hyponatremia: Status: Acute Assessment and Plan: resolved (3) Acute hyperkalemia: Status: Acute Assessment and Plan: K now low needs replacement (4) Dyspnea: Status: Acute (5) Acute anaphylaxis: Status: Acute Plan 66-year-old female with past medical history of alcoholic liver cirrhosis, dementia, hyponatremia presents to the hospital with AFib with RVR Developed HyperNa and getting D5W and now acute resp distress with ECHO c/w incr intravasc volume and 3 L positive fluid balance past 24 hrs will sign off na now normal Time Spent With Patient Time: Total time spent is greater than 50% in coordination of care (as documented) at patient's floor/unit and/or counseling patient: Progress Note: Quality Stroke Does the patient have a stroke diagnosis?: No
[2021-12-10] MEDS: Furosemide 200 MG in 0.9 % Sodium Chloride 80 ML IVCONT (13:00)
[2021-12-10] MEDS: Magnesium Sulfate/D5W 1 GM/100 ML PIGGYBACK IV ×2 (13:01→15:48)
--- NOTE | 2021-12-10 14:04 | MHC.CLN ---
F/U CONTINUES TO BE INTUBATED AND SEDATED. TUBE FEED CURRENTLY PAUSED DUE TO HIGH RESIDUAL. RESUME TF WHEN ABLE. ORDER FOR PROMOTE AT MAX GOAL RATE 30 ML/HOUR, FLUSH 300 ML EVERY 4 HOURS PROVIDES: 720 KCALS, 1488 KCALS WITH SEDATION, (25 KCALS/KG BASED ON IBW), 45 G PROTEIN (.76 G/KG), 2404 ML TOTAL WATER FROM FORMULA AND FLUSHES (41 ML/KG BASED ON IBW). PER MD ROUNDS, PLAN TODAY FOR DIURESIS AND MAXIMIZE TF FLUSH. MONITOR FOR RE-FEEDING. SKIN WITH PRESSURE INJURY, STAGE II TO BILATERAL BUTTOCKS. INCREASE PROTEIN SLOWLY TO PROMOTE WOUND HEALING. MONITOR TOLERANCE, RESIDUALS, AND LYTES.
[2021-12-10] MEDS: Sodium,Potassium Phosphates POWD.PACK 2 PACKET PO ×2 (15:10→23:19)
--- NOTE | 2021-12-10 15:29 | P.PNCC_ITS ---
Subjective Subjective Date of Service: 12/10/21 Interval History: Mrs. Reddy was transferred to the ICU and intubated Dec 06 [facility] of altered mental status with gross ventilatory insufficiency. The patient is a 66-year-old female with past medical history of schizoaffective disorder, obesity, alcoholic cirrhosis, dementia, hyponatremia, and asthma. She lives at [facility] and has a guardian.? She is well known by Dr. Rony Hogan.? He and the [facility] staff told us that she walks and talks and is a regular person. The patient was BIBA to the ED from the snf on November 24 because p alpitations and shortness of breath.? In the ED, she was afebrile, tachycardic in Afib, normotensive, and mildly tachypneic, with a sat of 92% on room air.? White count was 17, sodium was 122, BUN and creatinine 14/0.8, BNP was 78. CXR showed mild pulmonary vascular congestion with right basilar patchy opacity and possibly a small left pleural effusion.? Abdom, CT done bec of c/o belly pain showed? no acute findings within the abdomen or pelvis.? Compared to the previous CT in 2018, there was interval increase in size of a fluid attenuating cyst within the right adnexa, measuring up to 5.2 cm,? There was cholelithiasis, anasarca, and small ascites.? The lung martinez showed small right pleural effusion with accompanying atelectasis. The patient was admitted to Medicine for management of atrial fibrillation with RVR, possible CHF, hyperkalemia, and hyponatremia.? The atrial fibrillation was managed with diltiazem, metoprolol and Eliquis, the hyponatremia was managed with water restriction and urea, and the hyperkalemia in the usual fashion. Hosp course was marked by agitation that responded well to giving her the dose of Haldol that she was taking at [facility].? On November 27, she developed what seemed to be angioedema with respiratory distress that required tracheal intubation.? The precipitating factor was unable to be determined.? Treated in the usual fashion.? Able to be extubated on November 29.? But she had persistent AFib with RVR, and significant encephalopathy, thought related to underlying suboptimally controlled schizoaffective disorder.? Amiodarone was added resulting in improved rate control.? Lamictal was added to Haldol resulting in improved behavior.? She was started on Unasyn for aspiration on December 02 and started on Diamox.? The patient was transferred out of the ICU on December 02. In Dr. James?s note of Dec 05, he described her respiratory status as much better and commented that she was more alert and more interactive.? She was using her BiPAP at night.? Sat was 94% on 30% oxygen.? On his exam on the morning of Dec 06, however, her respiratory status was tenuous, she was tachypneic with decreased responsiveness.? Arterial blood gas showed 7.3 4/85/81/+17 (uncertain FiO2).? Her eyes were open, but she was lethargic and completely altered, barely resonding to any questions.? Chest excursion with each breath was minimal.? Sat was 93% on 5 L oxygen by nasal cannula.? The patient was coughing and had no gag response to deep sxn with a Yankauer.? Neuro exam was nonfocal.? Other labs were generally unremarkable. The patient was transferred down to the ICU and the trachea was intubated.? The post intubation CXR showed left mid and lower lung collapse, with central pulmonary vascular prominence.? Comparing this film to the for other films in her folder starting with November 24, each film seemed to show less and less of the left mid and lower lung with the left lung most fully expanded on the film from November 24. In the ICU, the Lamictal and Haldol were discontinued and the Diamox was in creased.? The Unasyn was continued.? She was given IV diltiazem for rate control.? She was put on propofol and fentanyl for sedation. A chest CT was done because of the left lower lobe collapse, and head CT because of the altered mental status.? Head CT was unremarkable.? Chest CT showed that the endotracheal tube was into the takeoff of the right mainstem bronchus.? There was left lower lobe collapse and some patchy infiltrates in the right upper lobe and right middle lobe.? The endotracheal tube was pulled back.? Incidentally noted was a dilated main pulmonary artery, suggestive of pulmonary hypertension. She underwent bronchoscopy which suctioned out mucus plugs in the left lung.? Subsequent to that, aeration of her left lung on the chest x-ray improved significantly, as did her oxygenation. ?Subsequently, we changed her to Precedex, and during the sedation holidays, the patient has been waking up fully and been fully and appropriately responsive.? She?s been breathing easy, but has not been extubated since her tidal volumes dropped on anything less than full pressure support.? We started diuresing her, her edema is noticeably shrinking, and her renal indices are improving. Yesterday, Unasyn was discontinued and she was changed to vancomycin and Zosyn because of persistent fever and leukocytosis.? We switched her to a Lasix drip 5mg/hr this morning.? This afternoon, with the Precedex off for at least 6 ho urs, she is fully awake, responsive, and calm. ?T-max 101.3 degrees. ?Heart rate is 89, chronic atrial fibrillation.? Blood pressure is 134/41, on Levophed 0.05 mics. She?s also on diltiazem 60 mg qid and metoprolol 25 mg bid. ?On PSV , RR is 26, Vt 250-400cc, Ve7-8.5L, PIP 25cm, ETCO2 33mm, Sat 95%.? When the PSV was lowered to 15 cm, her tidal volumes dropped and her minute volume tania. ?CVBG this morning showed 7.49/34/3.? No JVD at 30 degrees.? Chest is clear to auscultation, with normal expiratory phase.? Heart rate and rhythm are irregular with normal-sounding S1, and S2, with no murmur or gallops.? The abdomen is obese, and benign.? She has still about 2+ anasarca. LABORATORY DATA:? Below.? Notably, white count steady.? Hb up to 9.6 after tx of 2 units RBCs.? BUN/creatinine down slightly, POCs running about 190. MICROBIOLOGY:? Urinalysis from 12/06 negative.? Sputum culture from 12/06 shows no polys, no organisms.? Blood cultures from 12/05 no growth so far.? Bronch spec from 12/08 is negative.? Stool for CDiff tox was negative. ECHOCARDIOGRAM done by the biosolids management technician Dec 07.? My interpretation: Normal LV wall thickness, size, function.? Normal RV size and function.? Tricuspid CWD measured 3.1 m/sec (gradient 38mm).? IVC 2.2 cm with limited insp collapse.? Estim CVP 15cm.? Estim RVSP 53mm. IMPRESSION: 1. Underlying schizoaffective disorder and dementia.? She has a functional mental status at baseline. 2. Was encephalopathic post-extubation on Nov 29.? Unclear why.? Undoubtedly toxic metabolic.? She was given Haldol and started on Lamictal.? Her MS seemed to improve, with a good MS report on Dec 05, but then a very depressed MS on Dec 06, which undoubtedly contributed to her ventilatory insufficiency, which lead to her requiring tracheal intubation. ??? I thought maybe the Lamictal was responsible for the depressed MS.? We stopped that on arrival to ICU.? Repeat head CT was negative.? Mental status today finally became interactive yesterday, and it looks fully normal today.? Hopefully she?ll be extubatable tomorrow. 3. Acute hypercarbic respiratory failure.? Serum bicarb and venous pCO2 levels from the first days of her hospitalization here suggest that the patient is not a CO2 retainer.? The cause of her hypercarbia on Dec 06 was undoubtedly the fact that she was barely breathing.? The cause of the latter was likely rooted in MS depression and/or aspiration, and/or plugging in her left mid and lower lung (the latter of which could have been 2? to aspiration). ??? Her ventilatory capacity is slightly improved today vs yesterday.? Hopefully if we diurese her another 3-5 liters over the next 24 hrs, she?ll be extubatable tomorrow.? She?s not having any oxygenation problem. 4. Left lower and mid lung collapse.? Muc plug vs aspiration. ?No sign of a foreign body on the CT scan.? Post bronch, her left lung aeration is considerably improved. 5. KIARA.? Her renal indices on admission would suggest that she does not have CKD.? Her renal indices tania with diuresis.? Echo shows moderate pulmon HTN, which is confirmed by the CT scan.? It?s a certainty that she has right heart failure and cardiorenal syndrome.? And she is hugely total body fluid overloaded. ?The question is how successful diuresis will be.? So far w Lasix and aldactone, it?s going much better than expected, renal indices are dropping with diuresis.? Not surprised that we need to support her blood pressure with Levophed while we?re diuresing her. 6. Pulmonary HTN.? Given her obesity and head and neck habitus, I would not be surprised if the patient has ANGEL.? That and her obesity are the cause of her pulmonary hypertension. 7. Afib/flutter.? Rate is controlled on the diltiazem and the metoprolol.? I?m certainly not going to try to cardiovert her.? Continuing Eliquis. 8. ID:? Fever and WBC have plateau?d on day 2 of the vanco and Zosyn.? We?ll continue that.? The source of infection, if there is any, hasn?t been identified.? She does have a known DTI. 9. DTI on her buttocks was examined May [address] Jiménez.? About a 4-5cm diameter purpuric area on the midline of both buttocks.? No fluctulent areas.? Those are DTI pressure injuries.? The nurses are managing the wound appropriately, and the patient is being followed by the wound nurse.? A culture grew skin sharda. 9. Hypernatremia. ?Resolved on the D5W. 10. Hyperglycemia.? Started her on Lantus and SS Lispro.? Lantus is at 30 u bid. 11. Metabolic alkalosis.? BE was up to 19.? We started her on Diamox.? Now much improved.? I cut the dose way down.? The BE might rise again w aggressive diuresis. 12. Anemia.? Stool guiac was positive on Dec 08, but stool is brown.? She?s on Eliquis.? I started bid PPI. Critical Care Time (minutes): 55 Physical Exam Verdana 4l Vital Signs: Verdana 4d Verdana 4d Vital Signs: Verdana 4d Verdana 4Bd Last Vital Signs Verdana 4d Telecommunications Specialist New 4d Telecommunications Specialist New 4d Temp 100.6 F H 12/10/21 15:00 Telecommunications Specialist New 4d Pulse 78 12/10/21 15:00 Telecommunications Specialist New 4d Resp 29 H 12/10/21 15:00 BP 113/66 12/10/21 15:00 Pulse Ox 95 12/10/21 15:00 Oxygen Flow Rate 30 01/20/22 00:00 BMI result Body Mass Index 60.2 Objective Data Labs CBC & Chem 7: 12/10/21 05:30 12/10/21 05:30 Labs: Laboratory Results - last 24 hr 12/09/21 12/09/21 12/09/21 06:46 16:12 21:05 WBC RBC Hgb Hct MCV MCH MCHC RDW Plt Count MPV Absolute Nucleated RBC Nucleated RBC % (auto) VBG pH VBG pCO2 VBG pO2 VBG HCO3 VBG O2 Saturation VBG Base Excess Sodium Potassium Chloride Carbon Dioxide Anion Gap BUN Creatinine Estim Creat Clear Calc Estimated GFR POC Glucose 182 H 220 H Random Glucose Calcium Phosphorus Magnesium Crossmatch See Detail 12/10/21 12/10/21 12/10/21 05:09 05:30 05:30 WBC 16.6 H RBC 4.61 D Hgb 9.6 L D Hct 32.2 L D MCV 69.8 L MCH 20.8 L MCHC 29.8 L RDW 25.6 H Plt Count 173 MPV TNP Absolute Nucleated RBC 0.090 H Nucleated RBC % (auto) 0.5 H VBG pH VBG pCO2 VBG pO2 VBG HCO3 VBG O2 Saturation VBG Base Excess Sodium 143 Potassium 3.0 L Chloride 109 H Carbon Dioxide 25 Anion Gap 12 BUN 18 H Creatinine 0.89 Estim Creat Clear Calc 98.6 Estimated GFR > 60 POC Glucose 193 H Random Glucose 195 H Calcium 7.6 L D Phosphorus 2.3 L Magnesium 2.0 Crossmatch 12/10/21 12/10/21 12/10/21 05:37 07:23 11:22 WBC RBC Hgb Hct MCV MCH MCHC RDW Plt Count MPV Absolute Nucleated RBC Nucleated RBC % (auto) VBG pH 7.49 H VBG pCO2 34 VBG pO2 41 VBG HCO3 26 VBG O2 Saturation 70.0 VBG Base Excess 3.4 Sodium Potassium Chloride Carbon Dioxide Anion Gap BUN Creatinine Estim Creat Clear Calc Estimated GFR POC Glucose 194 H 173 H Random Glucose Calcium Phosphorus Magnesium Crossmatch Microbiology Microbiology Results: Microbiology 12/08/21 Unknown Buttock Right Gram Stain - Final 12/08/21 Unknown Buttock Right Routine Culture - Final 12/08/21 15:40 Bronch Lll Gram Stain - Final 12/08/21 15:40 Bronch Lll Routine Culture - Preliminary No growth to date. 12/06/21 20:12 Sputum - Suctioned Gram Stain - Final 12/06/21 20:12 Sputum - Suctioned Sputum Culture - Final 12/06/21 18:16 Urine Catheterized - Arias Catheter Urine Culture - Final No growth. 12/05/21 21:20 Blood - Venous Blood Culture - Preliminary No growth after 48 hours. 12/05/21 21:20 Blood - Venous Blood Culture - Preliminary No growth after 48 hours. 11/28/21 09:32 Sputum - Suctioned Gram Stain - Final 11/28/21 09:32 Sputum - Suctioned Sputum Culture - Final Kimberly albicans 11/25/21 01:47 Blood - Venous Blood Culture - Final No growth after 5 days. 11/25/21 01:42 Blood - Venous Blood Culture - Final No growth after 5 days. Quality Stroke Does the patient have a stroke diagnosis?: No VTE Prior VTE?: No VTE Risk Level:: Medical - moderate - high VTE Device Contraindication: Treatment Not Indicated VTE Drug Contraindication: N/A - Med Ordered Critical Care Time Critical Care Time (minutes): 60
[2021-12-10 16:18] LABS: Glucose, Whole Blood 140 mg/dL (60-115)
[2021-12-10 16:24] LABS: Vancomycin Random 10.1 mcg/mL (15-20)
--- NOTE | 2021-12-10 17:09 | PHA.PROG ---
Admission Date/Time: November 25, 2021 02:13 Indication: Weight in k.2 kg Adjusted body weight in Kg: [place] Loring body weight in Kg: Obesity Dosing Indication % IBW: Serum Creatinine - Last 168 Hours 12/04/21 12/05/21 12/06/21 12:44 07:27 05:52 Creatinine 0.80 0.87 1.18 12/07/21 12/07/21 12/08/21 05:20 18:46 05:25 Creatinine 1.31 1.19 1.21 12/09/21 12/10/21 05:20 05:30 Creatinine 1.12 0.89 Estimated CrCl and GFR - Last 168 Hours 12/04/21 12/05/21 12/06/21 12:44 07:27 05:52 Estim Creat Clear Calc 96.2 88.5 65.2 Estimated GFR > 60 > 60 46 12/07/21 12/07/21 12/08/21 05:20 18:46 05:25 Estim Creat Clear Calc 54.5 60.0 71.3 Estimated GFR 40 45 44 12/09/21 12/10/21 05:20 05:30 Estim Creat Clear Calc 76.2 98.6 Estimated GFR 48 > 60 Vancomycin Loading Dose: Current Vancomycin Dosing Regimen: Vancomycin Monitoring using AUC goal of 400 - 600 range with trough as surrogate marker: Date and Time for next Vancomycin Level to be drawn: Pharmacist Comments on Vancomycin Plan: Increase dose to 1500 mg random trough before third dose. Predicted [id number] Vancomycin dosing will take advantage of [employer] as a clinical decision support tool that uses Bayesian modeling to calculate individual patient's pharmacokinetic parameters and forecast the patient's drug concentration time course with the target goal AUC 24 range of 400 - 600 mg/L/hr.
[2021-12-10] MEDS: vancomycin HCL 1,500 MG in 0.9 % Sodium Chloride 500 ML 333.33 MG IV (17:44)
[2021-12-10 18:23] LABS: Anion Gap 11 (12-20); Blood Urea Nitrogen 17 mg/dL (9-16); Calcium 7.6 mg/dL (8.4-10.2); Carbon Dioxide 26 mmol/L (22-29); Chloride 111 mmol/L (96-108); Creatinine Clr Calc Pharmacy 95.4; Estimated Glomerular Filt Rate > 60; Glucose Random 134 mg/dL (60-115); Magnesium 2.5 mg/dL (1.6-2.6); Phosphorus 2.3 mg/dL (2.7-4.5); Sodium 144 mmol/L (135-145)
[2021-12-10 18:30] LABS: Potassium 3.8 mmol/L (3.3-5.1)
[2021-12-10] MEDS: dexmedeTOMIDidine HCL/NS 400 MCG/100 ML INFUS..BTL 40.6 MCG IVCONT ×3 (19:42→23:20)
[2021-12-10 21:40] LABS: Glucose, Whole Blood 117 mg/dL (60-115)
[2021-12-10] MEDS: Acetaminophen 325 MG TABLET 650 MG PO (21:43)
[2021-12-10] MEDS: Potassium Chloride Packet 20 MEQ PACKET 40 MEQ G-TUBE (21:43)
[2021-12-11] VITALS (33 sets, daily range): BP systolic 89–165; BP diastolic 38–88; PULSE 68–89; RESP 14–30; TEMP 32.1–38.9; O2SAT 94–100; BMI 59.3
[2021-12-11] MEDS: Albuterol/Iprat 2.5/0.5MG 3 ML AMPUL.NEB INHALE ×4 (00:44→17:36)
[2021-12-11] MEDS: dexmedeTOMIDidine HCL/NS 400 MCG/100 ML INFUS..BTL 40.6 MCG IVCONT ×9 (00:52→19:41)
[2021-12-11] MEDS: Potassium Chloride Packet 20 MEQ PACKET 40 MEQ G-TUBE (00:53)
[2021-12-11] MEDS: acetaZOLAMIDE sodium 500 MG VIAL 250 MG IVPUSH ×2 (02:02→14:57)
[2021-12-11] MEDS: Piperacillin Sodium/Tazobactam 4.5 GM in 0.9 % Sodium Chloride 100 ML IV ×4 (04:28→23:24)
--- NOTE | 2021-12-11 06:02 | P.PCNCC_ITS ---
Procedures Date of Service Date of Service: 12/11/21 Central Line Placement Right IJ: Central Line Comments: It was informed to me? by the patient's nurse that 1 of the catheter ports (white) appears to have a leak, noted when they tried to flush it.? The decision to change these catheter was made at the time. A quick time-out was made for clarification and proper patient identification, patient was positioned, all surrounding areas of the patient's neck around the catheter,? the catheters themselves as well as the hubs were all cleaned with chlorhexidine.? ?Precedex 1 microgram/kilogram IV push x1 ( 160mcg) was given for procedure sedation while all the medications were stopped as there is no peripheral IV access. In a sterile manner I accessed the brown port of the patient's current catheter and right through it a new guidewire?was advanced.? Gently the current catheter was removed? and replaced with a 16 [place] triple-lumen catheter which was advanced into the vein up to the hub without problems, the wired was removed. Ports had? good blood return and flushed x3.? The catheter was secured with 3 sutures at 3 sites, a Biopatch and dry sterile dressing were applied. Post procedure chest x-ray showed the line to be in good position without pneumothorax.? No bleeding or complications noted. Consent for Procedure: Emergent-no informed consent obtained Time out performed: Yes Sterile Technique Used: Yes Patient placed on monitor/pulse ox: Yes prep: mask, gown and gloves Central line prep: Chlorhexidine scrub Local anesthesia used: other anesthetic (Precedex) Amount of anesthesia used (ml): 40 Ultrasound used for placement: No Central line lumen inserted: triple Post procedure: sutured in place, good blood return, all ports aspirated, flushed, capped and sterile dressing applied Post procedure x-ray: tip of catheter in good position and no pneumothorax seen Patient tolerated procedure: well Complications: none
[2021-12-11 06:36] LABS: VBG Base Excess 2.9 mmol/L; VBG HCO3 26 mmol/L (22-26); VBG pCO2 36 mmHg; VBG pH 7.46 (7.32-7.43); VBG pO2 34 mmHg
[2021-12-11 06:45] LABS: Basophils Percent Auto 0.1 % (0-2); Hemoglobin 8.6 g/dl (12.0-16.0); Monocytes Percent Auto 5.5 % (2-11); Red Cell Distribution Width 26.3 % (11.0-16.0); SCAN SMEAR FLAG 1
[2021-12-11 06:47] LABS: Eosinophils Absolute Auto 0.1 X10*3/uL (0.0-0.4); Eosinophils Percent Auto 0.9 % (0-4); Hematocrit 29.2 % (37.0-47.0); Imm Gran Abs Auto 0.13 X10*3/uL (0.00-0.03); Lymphocytes Absolute Auto 1.3 X10*3/uL (1.2-4.9); Lymphocytes Percent Auto 9.7 % (20-40); MANUAL DIFF FLAG SCAN; Mean Corpuscular HGB Conc 29.5 g/dl (31.0-35.0); Mean Corpuscular Hemoglobin 20.8 pg (27.0-33.0); Mean Corpuscular Volume 70.5 fL (80.0-98.0); Monocytes Absolute Auto 0.7 X10*3/uL (0.1-1.2); NRBC Pct Auto 0.1 /100WBC (0.0-0.2); Neutrophils Absolute Auto 11.1 x10*3/uL (2.0-8.3); Neutrophils Percent Auto 82.8 % (45-73); Platelet Count 200 X10*3/uL (160-400); Red Blood Count 4.14 X10*6/uL (4.20-5.50); White Blood Count 13.4 X10*3/uL (4.8-10.8)
[2021-12-11 06:48] LABS: PLT ABN DIST 1
--- NOTE | 2021-12-11 07:01 | PC.NURSE ---
Initial contact.Pt a&ox2. Pupils perrl, responds appropriately to most questions. As the night progressed pt became more confused. at 0500 pt was noticibly more lethargic and confused. Throughout the night pt would call for random family members or talk about things that were not relevant to current situation. Confusion progressed through the night. Cardiac, pt is in afib (100-130s) and would have small runs of 3-6 pvcs throughout the night. pt does have generalized 3-4 edema. Pt does weep in the lower ext. Provider is aware. Resp- LS clear pt on moreno NC at 5L. GI- no bm, pt does have ruq surigcal site with GISELLE drain, brown drainage with reddish tint 60mls. abd tender. pt did recieve two doese of 0.5mg dilaudid with good effect. - pt has mehta pt had total ouput for 12 hours of 5-10mls of orange concentrated urine. Skin, pt has redness on coccyx beginning of stage one. pt has large amount of bruising on left posterior forearm and arm. Pt has dark discoloration in the lower exts bilat. Pt muskulo skeletal is generally weak, pt needs frequent help repositioning.
[2021-12-11 07:07] LABS: Alanine Aminotransferase 19 U/L (0-31); Albumin Level 2.5 g/dL (3.5-5.0); Alkaline Phosphatase 52 U/L (39-117); Anion Gap 11 (12-20); Aspartate Amino Transferase 29 U/L (5-31); Bilirubin Total 0.8 mg/dL (0.0-1.0); Blood Urea Nitrogen 17 mg/dL (9-16); Calcium 7.4 mg/dL (8.4-10.2); Carbon Dioxide 26 mmol/L (22-29); Chloride 110 mmol/L (96-108); Creatinine Clr Calc Pharmacy 98.8; Estimated Glomerular Filt Rate > 60; Glucose Random 95 mg/dL (60-115); Potassium 3.6 mmol/L (3.3-5.1); Sodium 143 mmol/L (135-145); Total Protein 4.7 g/dL (6.5-8.0)
[2021-12-11 07:13] LABS: Glucose, Whole Blood 91 mg/dL (60-115)
[2021-12-11 07:29] LABS: Venous Blood Gas Refer to POC result
[2021-12-11 07:38] LABS: SLIDE REVIEW VERIFIED
[2021-12-11] MEDS: 0.9 % Sodium Chloride Flush 3 ML SYRINGE IVFLUSH ×2 (07:57→14:58)
[2021-12-11] MEDS: Atorvastatin Calcium 10 MG TABLET PO (07:59)
[2021-12-11] MEDS: Metoprolol Tartrate 25 MG TABLET PO ×2 (07:59→22:00)
[2021-12-11] MEDS: dilTIAZem HCL 60 MG TABLET PO ×4 (07:59→22:00)
[2021-12-11] MEDS: Apixaban 5 MG TABLET PO ×2 (08:00→22:00)
[2021-12-11] MEDS: Spironolactone 25 MG TABLET PO (08:00)
[2021-12-11] MEDS: Chlorhexidine Gluc Oral Rinse 15 ML MOUTHWASH BUCCAL ×3 (08:00→22:00)
[2021-12-11] MEDS: Nystatin Powder 15 GM BOTTLE 1 APPL TOPICAL ×3 (08:04→22:15)
[2021-12-11] MEDS: Insulin Glargine,Hum.rec.anlog 100 UNIT/ML 10 ML VIAL 30 UNIT SUBCUT (09:42)
[2021-12-11] MEDS: Furosemide 200 MG in 0.9 % Sodium Chloride 80 ML IVCONT (09:49)
--- NOTE | 2021-12-11 11:08 | P.PNCC_ITS ---
Subjective Subjective Date of Service: 12/11/21 Interval History: Mrs. Reddy was transferred to the ICU and intubated Dec 06 [facility] of altered mental status with gross ventilatory insufficiency. The patient is a 66-year-old female with past medical history of schizoaffective disorder, obesity, alcoholic cirrhosis, dementia, hyponatremia, and asthma. She lives at [facility] and has a guardian.? She is well known by Dr. Rony Hogan.? He and the [facility] staff told us that she walks and talks and is a regular person. The patient was [facility]IBA to the ED from the [facility] on November 24 because p alpitations and shortness of breath.? In the ED, she was afebrile, tachycardic in Afib, normotensive, and mildly tachypneic, with a sat of 92% on room air.? White count was 17, sodium was 122, BUN and creatinine 14/0.8, BNP was 78. CXR showed mild pulmonary vascular congestion with right basilar patchy opacity and possibly a small left pleural effusion.? Abdom, CT done bec of c/o belly pain showed? no acute findings within the abdomen or pelvis.? Compared to the previous CT in 2018, there was interval increase in size of a fluid attenuating cyst within the right adnexa, measuring up to 5.2 cm,? There was cholelithiasis, anasarca, and small ascites.? The lung martinez showed small right pleural effusion with accompanying atelectasis. The patient was admitted to Medicine for management of atrial fibrillation with RVR, possible CHF, hyperkalemia, and hyponatremia.? The atrial fibrillation was managed with diltiazem, metoprolol and Eliquis, the hyponatremia was managed with water restriction and urea, and the hyperkalemia in the usual fashion. Hosp course was marked by agitation that responded well to giving her the dose of Haldol that she was taking at [facility].? On November 27, she developed what seemed to be angioedema with respiratory distress that required tracheal intubation.? The precipitating factor was unable to be determined.? Treated in the usual fashion.? Able to be extubated on November 29.? But she had persistent AFib with RVR, and significant encephalopathy, thought related to underlying suboptimally controlled schizoaffective disorder.? Amiodarone was added resulting in improved rate control.? Lamictal was added to Haldol resulting in improved behavior.? She was started on Unasyn for aspiration on December 02 and started on Diamox.? The patient was transferred out of the ICU on December 02. In Dr. James?s note of Dec 05, he described her respiratory status as much better and commented that she was more alert and more interactive.? She was using her BiPAP at night.? Sat was 94% on 30% oxygen.? On his exam on the morning of Dec 06, however, her respiratory status was tenuous, she was tachypneic with decreased responsiveness.? Arterial blood gas showed 7.3 4/85/81/+17 (uncertain FiO2).? Her eyes were open, but she was lethargic and completely altered, barely resonding to any questions.? Chest excursion with each breath was minimal.? Sat was 93% on 5 L oxygen by nasal cannula.? The patient was coughing and had no gag response to deep sxn with a Yankauer.? Neuro exam was nonfocal.? Other labs were generally unremarkable. The patient was transferred down to the ICU and the trachea was intubated.? The post intubation CXR showed left mid and lower lung collapse, with central pulmonary vascular prominence.? Comparing this film to the for other films in her folder starting with November 24, each film seemed to show less and less of the left mid and lower lung with the left lung most fully expanded on the film from November 24. In the ICU, the Lamictal and Haldol were discontinued and the Diamox was in creased.? A chest CT was done because of the left lower lobe collapse, and head CT because of the altered mental status.? Head CT was unremarkable.? Chest CT showed that there was left lower lobe collapse and some patchy infiltrates in the right upper lobe and right middle lobe.? The endotracheal tube was pulled back.? Incidentally noted was a dilated main pulmonary artery, suggestive of pulmonary hypertension. She underwent bronchoscopy which suctioned out mucus plugs in the left lung.? Subsequent to that, aeration of her left lung on the chest x-ray improved significantly, as did her oxygenation.? Subsequently, we changed her to Precedex, and during the sedation holidays, the patient has been waking up fully and been fully and appropriately responsive.? She?s been breathing easy, but has not been extubated since her tidal volumes have been insufficient on anything less than full pressure support.? We started diuresing her; her edema is noticeably shrinking, and her renal indices are improving. On Dec 09, we changed the Unasyn to vancomycin and Zosyn because of persistent fever and leukocytosis, and switched her to a Lasix drip 5mg/hr.? This afternoon, with the Precedex off for 3 hours, she is fully awake, responsive, and calm.? T-max 102 degrees.? Heart rate is 73, chronic atrial fibrillation.? Blood pressure is 110/45 on Levophed 0.02ug. She?s also on diltiazem 60 mg qid and metoprolol 25 mg bid. ?On PSV 20/25/+5, RR is 14, Vt 390cc, Ve6L, PIP 25cm, ETCO2 32mm, Sat 98%.? When the PSV was lowered to 15 cm, her tidal volumes dr opped and her minute volume tania.? CVBG this morning showed 7.46/36/+2.? No JVD at 30 degrees.? Chest is clear to auscultation, with normal expiratory phase.? Heart rate and rhythm are irregular with normal-sounding S1, and S2, with no murmur or gallops.? The abdomen is obese, and benign.? She has still about 2+ anasarca. LABORATORY DATA:? Below.? Notably, white count down to 13.? Hb down 1gram again.? Last stool was positive for occ blood on 12/08.? POCs running 90-150. MICROBIOLOGY:? Urinalysis from 12/06 negative.? Sputum culture from 12/06 shows no polys, no organisms.? Blood cultures from 12/05 no growth so far.? Bronch spec from 12/08 is negative.? Stool for CDiff tox was negative. ECHOCARDIOGRAM done by the armored service technician Dec 07.? My interpretation: Normal LV wall thickness, size, function.? Normal RV size and function.? Tricuspid CWD measured 3.1 m/sec (gradient 38mm).? IVC 2.2 cm with limited insp collapse.? Estim CVP 15cm.? Estim RVSP 53mm. IMPRESSION: 1. Underlying schizoaffective disorder and dementia.? She has a functional mental status at baseline. 2. Was encephalopathic post-extubation on Nov 29.? Unclear why.? Undoubtedly toxic metabolic.? She was given Haldol and started on Lamictal.? Her MS seemed to improve, with a good MS report on Dec 05, but then a very depressed MS on Dec 06, which undoubtedly contributed to her ventilatory insufficiency, which lead to her requiring tracheal intubation. ??? I thought maybe the Lamictal was responsible for the depressed MS.? We s topped that on arrival to ICU.? Repeat head CT was negative.? Mental status finally became interactive on Dec 09, and was even better yesterday.? Hopefully she?ll be extubatable tomorrow, once we diurese her some more. 3. Acute hypercarbic respiratory failure.? Serum bicarb and venous pCO2 levels from the first days of her hospitalization here suggest that this patient is not a CO2 retainer.? The cause of her hypercarbia on Dec 06 was undoubtedly the fact that she was barely breathing.? The cause of the latter was likely rooted in MS depression and/or aspiration, and/or plugging in her left mid and lower lung (the latter of which could have been 2? to aspiration). ??? Her ventilatory capacity is slightly improved today vs yesterday.? Hopefully if we diurese her another 3-5 liters over the next 24 hrs, she?ll be extubatable tomorrow.? She?s not having any oxygenation problem. 4. Left lower and mid lung collapse.? Muc plug vs aspiration.? No sign of a foreign body on the CT scan.? Post bronch, her left lung aeration and oxygenation are considerably improved. 5. KIARA.? Her renal indices on admission would suggest that she does not have CKD.? Her renal indices initially tania with diuresis.? Echo shows moderate pulmon HTN, which is confirmed by the CT scan.? It?s a certainty that she has right heart failure and cardiorenal syndrome.? And she is hugely total body fluid overloaded. ?So far w Lasix and aldactone, diuresis is going much better than expected, and renal indices are dropping.? Not surprised that we need to support her blood pressure with Levophed while we?re diuresing her. 6. Pulmonary HTN.? Given her obesity and head and neck habitus, I would not be surprised if the patient has ANGEL.? That and her obesity are the cause of her pulmonary hypertension. 7. Afib/flutter.? Rate is controlled on the diltiazem and the metoprolol.? I?m certainly not going to try to cardiovert her.? Continuing Eliquis. 8. ID:? Still febrile altho WBC coming down.? The source of infection, if there is any, hasn?t been identified.? She does have a known DTI.? I?ll reculture turner te.? Continue vanco and Zoysn for now. 9. DTI on her buttocks was examined May [address] Jiménez.? About a 4-5cm diameter purpuric area on the midline of both buttocks.? No fluctulent areas.? T hose are DTI pressure injuries.? The nurses are managing the wound appropriately, and the patient is being followed by the wound nurse.? A culture grew skin sharda. 10. Hypernatremia. ?Resolved on the D5W. 11. Hyperglycemia.? Started her on Lantus and SS Lispro.? Drop Lantus to 25u bid. 12. Metabolic alkalosis.? BE was up to 19.? We started her on Diamox.? Now much improved.? I cut the dose way down.? The BE might rise again w aggressive diuresis. 13. Anemia.? Stool guiac was positive on Dec 08, but stool is brown.? She?s on Eliquis.? I started bid PPI. Critical Care Time (minutes): 60 Physical Exam Verdana 4l Vital Signs: Verdana 4d Verdana 4d Vital Signs: Verdana 4d Verdana 4Bd Last Vital Signs Verdana 4d Office Manager New 4d Office Manager New 4d Temp 96.9 F 12/11/21 09:00 Office Manager New 4d Pulse 69 12/11/21 10:00 Office Manager New 4d Resp 25 H 12/11/21 10:00 BP 120/46 L 12/11/21 10:00 Pulse Ox 97 12/11/21 10:00 Oxygen Flow Rate 30 12/02/21 00:00 BMI result Body Mass Index 59.3 Objective Data Labs CBC & Chem 7: 12/11/21 06:30 12/11/21 06:30 Labs: Laboratory Results - last 24 hr 12/10/21 12/10/21 12/10/21 11:22 15:53 16:14 WBC RBC Hgb Hct MCV MCH MCHC RDW Plt Count MPV Immature Gran % (Auto) Neut % (Auto) Lymph % (Auto) [place] % (Auto) Eos % (Auto) Baso % (Auto) Lymph # (Auto) [place] # (Auto) Eos # (Auto) Baso # (Auto) Abs Immat Gran (auto) Absolute Neuts (auto) Absolute Nucleated RBC Nucleated RBC % (auto) Smear Tech's Comments VBG pH VBG pCO2 VBG pO2 VBG HCO3 VBG O2 Saturation VBG Base Excess Sodium Potassium Chloride Carbon Dioxide Anion Gap BUN Creatinine Estim Creat Clear Calc Estimated GFR POC Glucose 173 H 140 H Random Glucose Calcium Phosphorus Magnesium Total Bilirubin AST ALT Alkaline Phosphatase Total Protein Albumin Random Vancomycin 10.1 L 12/10/21 12/10/21 12/11/21 17:46 21:36 06:30 WBC 13.4 H RBC 4.14 L Hgb 8.6 L Hct 29.2 L MCV 70.5 L MCH 20.8 L MCHC 29.5 L RDW 26.3 H Plt Count 200 MPV Not Reportable Immature Gran % (Auto) 1.0 H Neut % (Auto) 82.8 H Lymph % (Auto) 9.7 L [place] % (Auto) 5.5 Eos % (Auto) 0.9 Baso % (Auto) 0.1 Lymph # (Auto) 1.3 [place] # (Auto) 0.7 Eos # (Auto) 0.1 Baso # (Auto) 0.0 Abs Immat Gran (auto) 0.13 H Absolute Neuts (auto) 11.1 H Absolute Nucleated RBC 0.020 H Nucleated RBC % (auto) 0.1 Smear Tech's Comments VERIFIED VBG pH VBG pCO2 VBG pO2 VBG HCO3 VBG O2 Saturation VBG Base Excess Sodium 144 Potassium 3.8 D Chloride 111 H Carbon Dioxide 26 Anion Gap 11 L BUN 17 H Creatinine 0.92 Estim Creat Clear Calc 95.4 Estimated GFR > 60 POC Glucose 117 H Random Glucose 134 H Calcium 7.6 L Phosphorus 2.3 L Magnesium 2.5 Total Bilirubin AST ALT Alkaline Phosphatase Total Protein Albumin Random Vancomycin 12/11/21 12/11/21 12/11/21 06:30 06:30 07:10 WBC RBC Hgb Hct MCV MCH MCHC RDW Plt Count MPV Immature Gran % (Auto) Neut % (Auto) Lymph % (Auto) [place] % (Auto) Eos % (Auto) Baso % (Auto) Lymph # (Auto) [place] # (Auto) Eos # (Auto) Baso # (Auto) Abs Immat Gran (auto) Absolute Neuts (auto) Absolute Nucleated RBC Nucleated RBC % (auto) Smear Tech's Comments VBG pH 7.46 H VBG pCO2 36 VBG pO2 34 VBG HCO3 26 VBG O2 Saturation 55.0 VBG Base Excess 2.9 Sodium 143 Potassium 3.6 Chloride 110 H Carbon Dioxide 26 Anion Gap 11 L BUN 17 H Creatinine 0.88 Estim Creat Clear Calc 98.8 Estimated GFR > 60 POC Glucose 91 Random Glucose 95 Calcium 7.4 L Phosphorus Magnesium Total Bilirubin 0.8 AST 29 D ALT 19 Alkaline Phosphatase 52 Total Protein 4.7 L Albumin 2.5 L Random Vancomycin Microbiology Microbiology Results: Microbiology 12/05/21 21:20 Blood - Venous Blood Culture - Final No growth after 5 days. 12/05/21 21:20 Blood - Venous Blood Culture - Final No growth after 5 days. 12/08/21 Unknown Buttock Right Gram Stain - Final 12/08/21 Unknown Buttock Right Routine Culture - Final 12/08/21 15:40 Bronch Lll Gram Stain - Final 12/08/21 15:40 Bronch Lll Routine Culture - Preliminary No growth to date. 12/06/21 20:12 Sputum - Suctioned Gram Stain - Final 12/06/21 20:12 Sputum - Suctioned Sputum Culture - Final 12/06/21 18:16 Urine Catheterized - Arias Catheter Urine Culture - Final No growth. 11/28/21 09:32 Sputum - Suctioned Gram Stain - Final 11/28/21 09:32 Sputum - Suctioned Sputum Culture - Final Kimberly albicans 11/25/21 01:47 Blood - Venous Blood Culture - Final No growth after 5 days. 11/25/21 01:42 Blood - Venous Blood Culture - Final No growth after 5 days. Quality Stroke Does the patient have a stroke diagnosis?: No VTE Prior VTE?: No VTE Risk Level:: Medical - moderate - high VTE Device Contraindication: Treatment Not Indicated VTE Drug Contraindication: N/A - Med Ordered Critical Care Time Critical Care Time (minutes): 60
[2021-12-11 11:31] LABS: Glucose, Whole Blood 148 mg/dL (60-115)
--- NOTE | 2021-12-11 13:11 | P.PNNP_ITS ---
Subjective Subjective Date of Service: 12/11/21 Principal diagnosis: dysnatremia, hypervol Interval history: Mrs. Reddy was transferred to the ICU and intubated Dec 06 of altered mental status with gross ventilatory insufficiency. The patient is a 66-year-old female with past medical history of schizoaffective disorder, obesity, alcoholic cirrhosis, dementia, hyponatremia, and asthma. the wound nurse.? A culture grew skin sharda. 9. Hypernatremia. ?Resolved on the D5W. 10. Hyperglycemia.? Started her on Lantus and SS Lispro.? Lantus is at 30 u bid. 11. Metabolic alkalosis.? BE was up to 19.? We started her on Diamox.? Now much improved.? I cut the dose way down.? The BE might rise again w aggressive diuresis. 12. Anemia.? Stool guiac was positive on Dec 08, but stool is brown.? She?s on Eliquis.? I started bid PPI. will sign off Physical Exam Verdana 4l Vital Signs: Verdana 4d Verdana 4d Vital Signs: Verdana 4d Verdana 4Bd Last Vital Signs Verdana 4d Stem Roller Operator New 4d Stem Roller Operator New 4d Temp 96.8 F 12/11/21 12:00 Stem Roller Operator New 4d Pulse 74 12/11/21 13:00 Stem Roller Operator New 4d Resp 18 12/11/21 13:00 BP 114/41 L 12/11/21 13:00 Pulse Ox 97 12/11/21 13:00 Oxygen Flow Rate 30 12/02/21 00:00 BMI result Body Mass Index 59.3 Const: Other: looks very sick with RR 40, tachypnic rhnochi/wheezes RRR abd obses edema General: cooperative, no acute distress, alert, awake, lethargic (But follows commands) and other ( somnolent, arousable to painful stimuli, does not follow commands) Nutritional Appearance: obese Orientation/consciousness: patient oriented x3 and lethargic (But follows commands) Eyes: General: appearance normal, both eyes and all related structures Sclerae: sclerae normal Pupils: Equal, round and reactive pupils present EOM: EOMs intact bilaterally Neck: Neck: Yes normal visual inspection, Yes no lymphadenopathy, Yes trachea midline and Yes supple Chest: Chest palpation & inspection: normal inspection of the chest Resp: Effort & Inspection: normal respiratory effort and no respiratory distress Auscultation: clear to auscultation bilaterally, crackles (Bibasilar) and no wheezes Cardio: Palpation: normal PMI Rate: regular rate and tachycardic Rhythm: regular rhythm and abnormal rhythm irregularly irregular Heart sounds: S1 normal heart sound present, S2 normal heart sound present, no gallops, no murmurs and no rubs GI: Palpation (GI): Soft to palpation, nontender and Other GI palpation findings present ( Nontender) Auscultation: normal bowel sounds Skin: General skin exam: no rashes or lesions noted Lesions: other Wounds: wounds noted (buttock area,unstageable,no deep to bone) Neuro: General: patient oriented x3 Cranial nerves: Yes Equal, round and reactive pupils present and Yes Other cranial nerve findings present Cognition (Neuro): normal cognition Extrem: General: Yes normal to inspection, Yes no pedal edema, No clubbing, No cyanosis and Yes pedal edema (1+ bilateral) Psych: Mental Status: other Objective Data Labs CBC & Chem 7: 12/11/21 06:30 12/11/21 06:30 Labs: Laboratory Results - last 24 hr 12/10/21 12/10/21 12/10/21 15:53 16:14 17:46 WBC RBC Hgb Hct MCV MCH MCHC RDW Plt Count MPV Immature Gran % (Auto) Neut % (Auto) Lymph % (Auto) [place] % (Auto) Eos % (Auto) Baso % (Auto) Lymph # (Auto) [place] # (Auto) Eos # (Auto) Baso # (Auto) Abs Immat Gran (auto) Absolute Neuts (auto) Absolute Nucleated RBC Nucleated RBC % (auto) Smear Tech's Comments VBG pH VBG pCO2 VBG pO2 VBG HCO3 VBG O2 Saturation VBG Base Excess Sodium 144 Potassium 3.8 D Chloride 111 H Carbon Dioxide 26 Anion Gap 11 L BUN 17 H Creatinine 0.92 Estim Creat Clear Calc 95.4 Estimated GFR > 60 POC Glucose 140 H Random Glucose 134 H Calcium 7.6 L Phosphorus 2.3 L Magnesium 2.5 Total Bilirubin AST ALT Alkaline Phosphatase Total Protein Albumin Random Vancomycin 10.1 L 12/10/21 12/11/21 12/11/21 21:36 06:30 06:30 WBC 13.4 H RBC 4.14 L Hgb 8.6 L Hct 29.2 L MCV 70.5 L MCH 20.8 L MCHC 29.5 L RDW 26.3 H Plt Count 200 MPV Not Reportable Immature Gran % (Auto) 1.0 H Neut % (Auto) 82.8 H Lymph % (Auto) 9.7 L [place] % (Auto) 5.5 Eos % (Auto) 0.9 Baso % (Auto) 0.1 Lymph # (Auto) 1.3 [place] # (Auto) 0.7 Eos # (Auto) 0.1 Baso # (Auto) 0.0 Abs Immat Gran (auto) 0.13 H Absolute Neuts (auto) 11.1 H Absolute Nucleated RBC 0.020 H Nucleated RBC % (auto) 0.1 Smear Tech's Comments VERIFIED VBG pH VBG pCO2 VBG pO2 VBG HCO3 VBG O2 Saturation VBG Base Excess Sodium 143 Potassium 3.6 Chloride 110 H Carbon Dioxide 26 Anion Gap 11 L BUN 17 H Creatinine 0.88 Estim Creat Clear Calc 98.8 Estimated GFR > 60 POC Glucose 117 H Random Glucose 95 Calcium 7.4 L Phosphorus Magnesium Total Bilirubin 0.8 AST 29 D ALT 19 Alkaline Phosphatase 52 Total Protein 4.7 L Albumin 2.5 L Random Vancomycin 12/11/21 12/11/21 12/11/21 06:30 07:10 11:28 WBC RBC Hgb Hct MCV MCH MCHC RDW Plt Count MPV Immature Gran % (Auto) Neut % (Auto) Lymph % (Auto) [place] % (Auto) Eos % (Auto) Baso % (Auto) Lymph # (Auto) [place] # (Auto) Eos # (Auto) Baso # (Auto) Abs Immat Gran (auto) Absolute Neuts (auto) Absolute Nucleated RBC Nucleated RBC % (auto) Smear Tech's Comments VBG pH 7.46 H VBG pCO2 36 VBG pO2 34 VBG HCO3 26 VBG O2 Saturation 55.0 VBG Base Excess 2.9 Sodium Potassium Chloride Carbon Dioxide Anion Gap BUN Creatinine Estim Creat Clear Calc Estimated GFR POC Glucose 91 148 H Random Glucose Calcium Phosphorus Magnesium Total Bilirubin AST ALT Alkaline Phosphatase Total Protein Albumin Random Vancomycin Microbiology Microbiology Results: Microbiology 12/08/21 15:40 Bronch Lll Gram Stain - Final 12/08/21 15:40 Bronch Lll Routine Culture - Final No growth after 2 days 12/05/21 21:20 Blood - Venous Blood Culture - Final No growth after 5 days. 12/05/21 21:20 Blood - Venous Blood Culture - Final No growth after 5 days. 12/08/21 Unknown Buttock Right Gram Stain - Final 12/08/21 Unknown Buttock Right Routine Culture - Final 12/06/21 20:12 Sputum - Suctioned Gram Stain - Final 12/06/21 20:12 Sputum - Suctioned Sputum Culture - Final 12/06/21 18:16 Urine Catheterized - Arias Catheter Urine Culture - Final No growth. 11/28/21 09:32 Sputum - Suctioned Gram Stain - Final 11/28/21 09:32 Sputum - Suctioned Sputum Culture - Final Kimberly albicans 11/25/21 01:47 Blood - Venous Blood Culture - Final No growth after 5 days. 11/25/21 01:42 Blood - Venous Blood Culture - Final No growth after 5 days. Procedures Date of Service Date of Service: 12/11/21 Assessment & Plan Assessment and plan (1) Atrial fibrillation with RVR: Status: Acute (2) Hyponatremia: Status: Acute Assessment and Plan: resolved (3) Acute hyperkalemia: Status: Acute Assessment and Plan: K now low needs replacement (4) Dyspnea: Status: Acute (5) Acute anaphylaxis: Status: Acute Plan 66-year-old female with past medical history of alcoholic liver cirrhosis, dementia, hyponatremia presents to the hospital with AFib with RVR Developed HyperNa and getting D5W and now acute resp distress with ECHO c/w incr intravasc volume and 3 L positive fluid balance past 24 hrs will sign off na now normal Time Spent With Patient Time: Total time spent is greater than 50% in coordination of care (as documented) at patient's floor/unit and/or counseling patient: Progress Note: Quality Stroke Does the patient have a stroke diagnosis?: No
[2021-12-11 16:33] LABS: Glucose, Whole Blood 191 mg/dL (60-115)
[2021-12-11] MEDS: Insulin Lispro 100 UNIT/ML 3 ML VIAL SUBCUT ×2 (16:45→22:01)
[2021-12-11] MEDS: vancomycin HCL 1,500 MG in 0.9 % Sodium Chloride 500 ML 333.33 MG IV (17:59)
[2021-12-11] MEDS: Potassium Chloride Packet 20 MEQ PACKET 40 MEQ PO ×2 (19:41→23:24)
[2021-12-11 19:52] LABS: Influenza A PCR NEGATIVE (Negative); Influenza B PCR NEGATIVE (Negative); Resp Syncy Virus RNA Qual PCR NEGATIVE (Negative); SARS COV2 PCR INHOUSE NEGATIVE (Negative)
[2021-12-11 20:33] LABS: Lactic Acid 0.9 mmol/L (0.5-2.0)
[2021-12-11 21:41] LABS: Glucose, Whole Blood 184 mg/dL (60-115)
[2021-12-11] MEDS: dexmedeTOMIDidine HCL/NS 400 MCG/100 ML INFUS..BTL 52.78 MCG IVCONT (21:59)
[2021-12-11] MEDS: Insulin Glargine,Hum.rec.anlog 100 UNIT/ML 10 ML VIAL 25 UNIT SUBCUT (22:00)
[2021-12-12] VITALS (37 sets, daily range): BP systolic 82–165; BP diastolic 42–72; PULSE 65–119; RESP 12–28; TEMP 32.9–37.9; O2SAT 82–98; BMI 58.3
[2021-12-12] MEDS: Albuterol/Iprat 2.5/0.5MG 3 ML AMPUL.NEB INHALE ×5 (00:58→23:38)
[2021-12-12] MEDS: dexmedeTOMIDidine HCL/NS 400 MCG/100 ML INFUS..BTL 40.6 MCG IVCONT ×4 (02:11→08:13)
[2021-12-12 02:13] LABS: Appearance Urine CLEAR; Color Urine YELLOW; Glucose Urine UA NEG (NEG); Leukocyte Esterase Urine NEG (NEG); Nitrite Urine NEG (NEG); Specific Gravity - Urine 1.015 (1.005-1.025); UACC Culture Trigger NO; Urine Blood 1+ (NEG); Urine Ketones NEG (NEG); Urine Protein NEG (NEG-TRACE)
[2021-12-12] MEDS: acetaZOLAMIDE sodium 500 MG VIAL 250 MG IVPUSH ×2 (02:13→13:08)
[2021-12-12 02:47] LABS: OBS Int Ctl Valid YES; OBS1 POSITIVE (NEGATIVE)
[2021-12-12 02:50] LABS: Bacteria Urine 1+ /LPF; Squamous Epithelial Cell Urine 1+ /LPF
[2021-12-12] MEDS: Piperacillin Sodium/Tazobactam 4.5 GM in 0.9 % Sodium Chloride 100 ML IV ×2 (04:36→12:22)
[2021-12-12 05:31] LABS: VBG Base Excess 2.1 mmol/L; VBG HCO3 25 mmol/L (22-26); VBG pCO2 36 mmHg; VBG pH 7.46 (7.32-7.43); VBG pO2 37 mmHg
[2021-12-12 05:41] LABS: Hemoglobin 9.2 g/dl (12.0-16.0); Mean Corpuscular Hemoglobin 21.1 pg (27.0-33.0); Monocytes Absolute Auto 0.8 X10*3/uL (0.1-1.2); Monocytes Percent Auto 4.6 % (2-11); Red Blood Count 4.37 X10*6/uL (4.20-5.50); SCAN SMEAR FLAG 1
[2021-12-12 05:43] LABS: Basophils Absolute Auto 0.1 X10*3/uL (0.0-0.2); Basophils Percent Auto 0.3 % (0-2); Eosinophils Absolute Auto 0.2 X10*3/uL (0.0-0.4); Hematocrit 30.9 % (37.0-47.0); Imm Gran Abs Auto 0.17 X10*3/uL (0.00-0.03); Lymphocytes Absolute Auto 1.2 X10*3/uL (1.2-4.9); Lymphocytes Percent Auto 6.9 % (20-40); MANUAL DIFF FLAG SCAN; Mean Corpuscular HGB Conc 29.8 g/dl (31.0-35.0); Mean Corpuscular Volume 70.7 fL (80.0-98.0); NRBC Pct Auto 0.2 /100WBC (0.0-0.2); Neutrophils Absolute Auto 14.8 x10*3/uL (2.0-8.3); Neutrophils Percent Auto 86.2 % (45-73); Red Cell Distribution Width 27.7 % (11.0-16.0); White Blood Count 17.2 X10*3/uL (4.8-10.8)
[2021-12-12 05:48] LABS: PLT ABN DIST 1
[2021-12-12 05:55] LABS: Venous Blood Gas Refer to POC result
[2021-12-12 06:05] LABS: Alanine Aminotransferase 23 U/L (0-31); Albumin Level 2.7 g/dL (3.5-5.0); Alkaline Phosphatase 60 U/L (39-117); Anion Gap 14 (12-20); Aspartate Amino Transferase 25 U/L (5-31); Bilirubin Total 0.8 mg/dL (0.0-1.0); Blood Urea Nitrogen 19 mg/dL (9-16); Calcium 7.8 mg/dL (8.4-10.2); Carbon Dioxide 25 mmol/L (22-29); Chloride 102 mmol/L (96-108); Creatinine Clr Calc Pharmacy 90.5; Estimated Glomerular Filt Rate 58; Glucose Random 233 mg/dL (60-115); Sodium 137 mmol/L (135-145); Total Protein 5.3 g/dL (6.5-8.0)
[2021-12-12] MEDS: dexmedeTOMIDidine HCL/NS 400 MCG/100 ML INFUS..BTL 52.78 MCG IVCONT (06:08)
[2021-12-12 06:09] LABS: SLIDE REVIEW VERIFIED
[2021-12-12 07:33] LABS: Glucose, Whole Blood 219 mg/dL (60-115)
[2021-12-12] MEDS: Insulin Glargine,Hum.rec.anlog 100 UNIT/ML 10 ML VIAL 25 UNIT SUBCUT (07:56)
[2021-12-12] MEDS: Insulin Lispro 100 UNIT/ML 3 ML VIAL SUBCUT ×2 (07:57→12:24)
[2021-12-12] MEDS: dilTIAZem HCL 60 MG TABLET PO ×3 (07:58→21:27)
[2021-12-12] MEDS: 0.9 % Sodium Chloride Flush 3 ML SYRINGE IVFLUSH ×2 (07:58→15:27)
[2021-12-12] MEDS: Atorvastatin Calcium 10 MG TABLET PO (07:58)
[2021-12-12] MEDS: Apixaban 5 MG TABLET PO ×2 (07:58→21:27)
[2021-12-12] MEDS: Chlorhexidine Gluc Oral Rinse 15 ML MOUTHWASH BUCCAL ×2 (07:58→21:27)
[2021-12-12] MEDS: Metoprolol Tartrate 25 MG TABLET PO ×2 (07:59→21:27)
[2021-12-12] MEDS: Spironolactone 25 MG TABLET PO (07:59)
[2021-12-12] MEDS: Nystatin Powder 15 GM BOTTLE 1 APPL TOPICAL ×3 (07:59→21:28)
[2021-12-12] MEDS: Furosemide 200 MG in 0.9 % Sodium Chloride 80 ML IVCONT (09:17)
[2021-12-12] MEDS: dexmedeTOMIDidine HCL/NS 400 MCG/100 ML INFUS..BTL 56.84 MCG IVCONT (10:18)
[2021-12-12 10:45] LABS: Phosphorus 3.5 mg/dL (2.7-4.5)
[2021-12-12 11:15] LABS: Glucose, Whole Blood 211 mg/dL (60-115)
--- NOTE | 2021-12-12 12:22 | P.PNCC_ITS ---
Subjective Subjective Date of Service: 12/12/21 Interval History: Mrs. Reddy was transferred to the ICU and intubated Dec 06 [facility] of altered mental status with gross ventilatory insufficiency. The patient is a 66-year-old female with past medical history of schizoaffective disorder, obesity, alcoholic cirrhosis, dementia, hyponatremia, and asthma. She lives at [facility] and has a guardian.? She is well known by Dr. Rony Hogan.? He and the [facility] staff told us that she walks and talks and is a regular person. The patient was BIBA to the ED from the [facility] on November 24 because p alpitations and shortness of breath.? In the ED, she was afebrile, tachycardic in Afib, normotensive, and mildly tachypneic, with a sat of 92% on room air.? White count was 17, sodium was 122, BUN and creatinine 14/0.8, BNP was 78. CXR showed mild pulmonary vascular congestion with right basilar patchy opacity and possibly a small left pleural effusion.? Abdom, CT done bec of c/o belly pain showed? no acute findings within the abdomen or pelvis.? Compared to the previous CT in 2018, there was interval increase in size of a fluid attenuating cyst within the right adnexa, measuring up to 5.2 cm,? There was cholelithiasis, anasarca, and small ascites.? The lung martinez showed small right pleural effusion with accompanying atelectasis. The patient was admitted to Medicine for management of atrial fibrillation with RVR, possible CHF, hyperkalemia, and hyponatremia.? The atrial fibrillation was managed with diltiazem, metoprolol and Eliquis, the hyponatremia was managed with water restriction and urea, and the hyperkalemia in the usual fashion. Hosp course was marked by agitation that responded well to giving her the dose of Haldol that she was taking at [facility].? On November 27, she developed what seemed to be angioedema with respiratory distress that required tracheal intubation.? The precipitating factor was unable to be determined.? Treated in the usual fashion.? Able to be extubated on November 29.? But she had persistent AFib with RVR, and significant encephalopathy, thought related to underlying suboptimally controlled schizoaffective disorder.? Amiodarone was added resulting in improved rate control.? Lamictal was added to Haldol resulting in improved behavior.? She was started on Unasyn for aspiration on December 02 and started on Diamox.? The patient was transferred out of the ICU on December 02. In Dr. James?s note of Dec 05, he described her respiratory status as much better and commented that she was more alert and more interactive.? She was using her BiPAP at night.? Sat was 94% on 30% oxygen.? On his exam on the morning of Dec 06, however, her respiratory status was tenuous, she was tachypneic with decreased responsiveness.? Arterial blood gas showed 7.3 4/85/81/+17 (uncertain FiO2).? Her eyes were open, but she was lethargic and completely altered, barely resonding to any questions.? Chest excursion with each breath was minimal.? Sat was 93% on 5 L oxygen by nasal cannula.? The patient was coughing and had no gag response to deep sxn with a Yankauer.? Neuro exam was nonfocal.? Other labs were generally unremarkable. The patient was transferred down to the ICU and the trachea was intubated.? The post intubation CXR showed left mid and lower lung collapse, with central pulmonary vascular prominence.? Comparing this film to the for other films in her folder starting with November 24, each film seemed to show less and less of the left mid and lower lung with the left lung most fully expanded on the film from November 24. In the ICU, the Lamictal and Haldol were discontinued and the Diamox was in creased.? A chest CT was done because of the left lower lobe collapse, and head CT because of the altered mental status.? Head CT was unremarkable.? Chest CT showed that there was left lower lobe collapse and some patchy infiltrates in the right upper lobe and right middle lobe.? The endotracheal tube was pulled back.? Incidentally noted was a dilated main pulmonary artery, suggestive of pulmonary hypertension. She underwent bronchoscopy which suctioned out mucus plugs in the left lung.? Subsequent to that, aeration of her left lung on the chest x-ray improved significantly, as did her oxygenation.? Subsequently, we changed her to Precedex, and during the sedation holidays, the patient has been waking up fully and been fully and appropriately responsive.? She?s been breathing easy, but has not been extubated since her tidal volumes have been insufficient on anything less than full pressure support.? We started diuresing her; her edema is noticeably shrinking, and her renal indices are improving. On Dec 09, we changed the Unasyn to vancomycin and Zosyn because of persistent fever and leukocytosis, and switched her to a Lasix drip 5mg/hr.? Since then, during eacy daily wakeup from Precedex, she was more and more awake, and her spont tidal vols on PSV were getting better and better. This morning, on Precedex 1.4ug, HR 92, afib. ?BP 120/51.? She?s on diltiazem 60 mg qid, and metoprolol 25 mg bid. ?On PSV 20/21%/+5, RR 12, Vt 488, ETCO2 32, Sat 94%.? This morning's CVBG showed 7.46/36/2.? Tmax 100.2.? No jugular venous distention at 30 degrees.? Chest is clear to auscultation, with a normal expiratory phase.? Iregular rate and rhythm, normal-sounding S1 and S2, with no murmur or gallops.? The abdomen is benign. ?She has still at least 2+ anasarca.? Urine output averaging greater than 150 cc/hour. This afternoon, after the Precedex has been off and getting Provigil 200 mg, she was very awake, calm, and appropriately interactive.? On PSV 15cm, RR was 14-18, Vt 360cc.? We extubated to BiPAP.? On 27/03/25%, RR is 18, Vt avg 800, SpO2 96%.? She?s calm, breathing easy, and appropriately responsive. LABORATORY DATA:? Below.? Notably, white count up to 17.? Hb up slightly.? Stool today is brown, hemocc positive.? The patient is on Eliquis.? POC avg about 210. MICROBIOLOGY:? Urinalysis from last night negative.? Sputum culture from 12/06 shows no polys, no organisms.? Blood cultures from last night no growth so far.? Bronch spec from 12/08 is negative.? Stool for CDiff tox was negative.? Repeat resp panel with influenza an SARS COV 2 PCRs negative. ECHOCARDIOGRAM done by the production maintenance technician Dec 07.? My interpretation: Normal LV wall thickness, size, function.? Normal RV size and function.? Tricuspid CWD measured 3.1 m/sec (gradient 38mm).? IVC 2.2 cm with limited insp collapse.? Estim CVP 15cm.? Estim RVSP 53mm. IMPRESSION: 1. Underlying schizoaffective disorder and dementia.? She has a functional mental status at baseline.? She?s calm and appropriate at this time. 2. Was encephalopathic post-extubation on Nov 29.? Unclear why.? Undoubtedly toxic metabolic.? She was given Haldol and started on Lamictal.? Her MS seemed to improve, with a good MS report on Dec 05, but then a very depressed MS on Dec 06, which undoubtedly contributed to her ventilatory insufficiency, which lead to her requiring tracheal intubation. ??? I thought maybe the Lamictal was responsible for the depressed MS.? We stopped that on arrival to ICU.? Repeat head CT was negative.? Mental status finally became interactive on Dec 09, and was even better yesterday.? Hopefully she?ll be extubatable tomorrow, once we diurese her some more. 3. Acute hypercarbic respiratory failure.? Serum bicarb and venous pCO2 levels from the first days of her hospitalization here suggest that this patient is not a CO2 retainer.? The cause of her hypercarbia on Dec 06 was undoubtedly the fact that she was barely breathing.? The cause of the latter was likely rooted in MS depression and/or aspiration, and/or plugging in her left mid and lower lung (the latter of which could have been 2? to aspiration). ??? Her ventilatory capacity is slightly improved today vs yesterday.? Hopefully if we diurese her another 3-5 liters over the next 24 hrs, she?ll be extubatable tomorrow.? She?s not having any oxygenation problem. 4. Left lower and mid lung collapse.? Muc plug vs aspiration.? No sign of a foreign body on the CT scan.? Post bronch, her left lung aeration and oxygenation are considerably improved. 5. KIARA.? Her renal indices on admission would suggest that she does not have CKD.? Her renal indices initially tania with diuresis.? Echo shows moderate pulmon HTN, which is confirmed by the CT scan.? It?s a certainty that she has right heart failure and cardiorenal syndrome.? And she is hugely total body fluid overloaded. ?So far w Lasix and aldactone, diuresis is going much better than expected, and renal indices are dropping.? Not surprised that we need to support her blood pressure with Levophed while we?re diuresing her. 6. Pulmonary HTN.? Given her obesity and head and neck habitus, I would not be surprised if the patient has ANGEL.? That and her obesity are the cause of her pulmonary hypertension. 7. Afib/flutter.? Rate is controlled on the diltiazem and the metoprolol.? I?m certainly not going to try to cardiovert her.? Continuing Eliquis. 8. ID:? On Vanco and Zosyn.? Still febrile.? WBC waxes and wanes.? The source of infection, if there is any, hasn?t been identified.? She does have a known DTI.? Recultured yesterday, everything negative.? I?m going to stop the abx now. 9. DTI on her buttocks was examined May [address] Jiménez.? About a 4-5cm diameter purpuric area on the midline of both buttocks.? No fluctulent areas.? Those are DTI pressure injuries.? The nurses are managing the wound appropriately, and the patient is being followed by the wound nurse.? A culture grew skin sharda. 10. Hypernatremia. ?Resolved on the D5W. 11. Hyperglycemia.? Started her on Lantus and SS Lispro.? We pulled her OGT with extubation and she won?t be fed, so I?ll stop the Lantus. 12. Metabolic alkalosis.? BE was up to 19.? Started on Diamox, now much improved.? I cut the dose way down.? The BE might rise again w aggressive diuresis. 13. Anemia.? Stool guiac was positive again today, but stool is brown.? She?s on Eliquis and bid PPI. Critical care time:? 60 min. Critical Care Time (minutes): 60 Physical Exam Verdana 4l Vital Signs: Verdana 4d Verdana 4d Vital Signs: Verdana 4d Verdana 4Bd Last Vital Signs Verdana 4d Manager Terminal New 4d Manager Terminal New 4d Temp 99.1 F 12/12/21 12:00 Manager Terminal New 4d Pulse 101 H 12/12/21 12:00 Manager Terminal New 4d Resp 25 H 12/12/21 12:00 BP 120/51 L 12/12/21 12:00 Pulse Ox 93 12/12/21 12:00 Oxygen Flow Rate 30 12/02/21 00:00 BMI result Body Mass Index 58.3 Objective Data Labs CBC & Chem 7: 12/12/21 05:20 12/12/21 05:20 Labs: Laboratory Results - last 24 hr 12/11/21 12/11/21 12/11/21 01:30 16:29 19:09 WBC RBC Hgb Hct MCV MCH MCHC RDW Plt Count MPV Immature Gran % (Auto) Neut % (Auto) Lymph % (Auto) Haskell % (Auto) Eos % (Auto) Baso % (Auto) Lymph # (Auto) Haskell # (Auto) Eos # (Auto) Baso # (Auto) Abs Immat Gran (auto) Absolute Neuts (auto) Absolute Nucleated RBC Nucleated RBC % (auto) Smear Tech's Comments VBG pH VBG pCO2 VBG pO2 VBG HCO3 VBG O2 Saturation VBG Base Excess Sodium Potassium Chloride Carbon Dioxide Anion Gap BUN Creatinine Estim Creat Clear Calc Estimated GFR POC Glucose 191 H Random Glucose Lactic Acid Calcium Phosphorus Magnesium Total Bilirubin AST ALT Alkaline Phosphatase Total Protein Albumin Urine Color YELLOW Urine Appearance CLEAR Urine pH 6.0 Ur Specific Lawrence 1.015 Urine Protein NEG Urine Glucose (UA) NEG Urine Ketones NEG Urine Blood 1+ H Urine Nitrite NEG Ur Leukocyte Esterase NEG Urine RBC 5-9 H Urine WBC 1-4 Ur Squamous Epith Cells 1+ Urine Bacteria 1+ Stool Occult Blood Influenza Type A (PCR) NEGATIVE Influenza Type B (PCR) NEGATIVE RSV RNA Qual (PCR) NEGATIVE SARS-CoV-2 RNA (RT-PCR) NEGATIVE 12/11/21 12/11/21 12/12/21 19:58 21:37 02:35 WBC RBC Hgb Hct MCV MCH MCHC RDW Plt Count MPV Immature Gran % (Auto) Neut % (Auto) Lymph % (Auto) Haskell % (Auto) Eos % (Auto) Baso % (Auto) Lymph # (Auto) Haskell # (Auto) Eos # (Auto) Baso # (Auto) Abs Immat Gran (auto) Absolute Neuts (auto) Absolute Nucleated RBC Nucleated RBC % (auto) Smear Tech's Comments VBG pH VBG pCO2 VBG pO2 VBG HCO3 VBG O2 Saturation VBG Base Excess Sodium Potassium Chloride Carbon Dioxide Anion Gap BUN Creatinine Estim Creat Clear Calc Estimated GFR POC Glucose 184 H Random Glucose Lactic Acid 0.9 Calcium Phosphorus Magnesium Total Bilirubin AST ALT Alkaline Phosphatase Total Protein Albumin Urine Color Urine Appearance Urine pH Ur Specific Lawrence Urine Protein Urine Glucose (UA) Urine Ketones Urine Blood Urine Nitrite Ur Leukocyte Esterase Urine RBC Urine WBC Ur Squamous Epith Cells Urine Bacteria Stool Occult Blood POSITIVE Influenza Type A (PCR) Influenza Type B (PCR) RSV RNA Qual (PCR) SARS-CoV-2 RNA (RT-PCR) 12/12/21 12/12/21 12/12/21 05:20 05:20 05:24 WBC 17.2 H RBC 4.37 Hgb 9.2 L Hct 30.9 L MCV 70.7 L MCH 21.1 L MCHC 29.8 L RDW 27.7 H Plt Count Not Reportable MPV Not Reportable Immature Gran % (Auto) 1.0 H Neut % (Auto) 86.2 H Lymph % (Auto) 6.9 L Haskell % (Auto) 4.6 Eos % (Auto) 1.0 Baso % (Auto) 0.3 Lymph # (Auto) 1.2 Haskell # (Auto) 0.8 Eos # (Auto) 0.2 Baso # (Auto) 0.1 Abs Immat Gran (auto) 0.17 H Absolute Neuts (auto) 14.8 H Absolute Nucleated RBC 0.030 H Nucleated RBC % (auto) 0.2 Smear Tech's Comments VERIFIED VBG pH 7.46 H VBG pCO2 36 VBG pO2 37 VBG HCO3 25 VBG O2 Saturation 59.0 VBG Base Excess 2.1 Sodium 137 Potassium 4.0 Chloride 102 Carbon Dioxide 25 Anion Gap 14 BUN 19 H Creatinine 0.96 Estim Creat Clear Calc 90.5 Estimated GFR 58 POC Glucose Random Glucose 233 H Lactic Acid Calcium 7.8 L Phosphorus 3.5 Magnesium 2.0 Total Bilirubin 0.8 AST 25 ALT 23 Alkaline Phosphatase 60 Total Protein 5.3 L Albumin 2.7 L Urine Color Urine Appearance Urine pH Ur Specific Lawrence Urine Protein Urine Glucose (UA) Urine Ketones Urine Blood Urine Nitrite Ur Leukocyte Esterase Urine RBC Urine WBC Ur Squamous Epith Cells Urine Bacteria Stool Occult Blood Influenza Type A (PCR) Influenza Type B (PCR) RSV RNA Qual (PCR) SARS-CoV-2 RNA (RT-PCR) 12/12/21 12/12/21 07:28 11:11 WBC RBC Hgb Hct MCV MCH MCHC RDW Plt Count MPV Immature Gran % (Auto) Neut % (Auto) Lymph % (Auto) Haskell % (Auto) Eos % (Auto) Baso % (Auto) Lymph # (Auto) Haskell # (Auto) Eos # (Auto) Baso # (Auto) Abs Immat Gran (auto) Absolute Neuts (auto) Absolute Nucleated RBC Nucleated RBC % (auto) Smear Tech's Comments VBG pH VBG pCO2 VBG pO2 VBG HCO3 VBG O2 Saturation VBG Base Excess Sodium Potassium Chloride Carbon Dioxide Anion Gap BUN Creatinine Estim Creat Clear Calc Estimated GFR POC Glucose 219 H 211 H Random Glucose Lactic Acid Calcium Phosphorus Magnesium Total Bilirubin AST ALT Alkaline Phosphatase Total Protein Albumin Urine Color Urine Appearance Urine pH Ur Specific Lawrence Urine Protein Urine Glucose (UA) Urine Ketones Urine Blood Urine Nitrite Ur Leukocyte Esterase Urine RBC Urine WBC Ur Squamous Epith Cells Urine Bacteria Stool Occult Blood Influenza Type A (PCR) Influenza Type B (PCR) RSV RNA Qual (PCR) SARS-CoV-2 RNA (RT-PCR) Microbiology Microbiology Results: Microbiology 12/08/21 15:40 Bronch Lll Gram Stain - Final 12/08/21 15:40 Bronch Lll Routine Culture - Final No growth after 2 days 12/05/21 21:20 Blood - Venous Blood Culture - Final No growth after 5 days. 12/05/21 21:20 Blood - Venous Blood Culture - Final No growth after 5 days. 12/08/21 Unknown Buttock Right Gram Stain - Final 12/08/21 Unknown Buttock Right Routine Culture - Final 12/06/21 20:12 Sputum - Suctioned Gram Stain - Final 12/06/21 20:12 Sputum - Suctioned Sputum Culture - Final 12/06/21 18:16 Urine Catheterized - Arias Catheter Urine Culture - Final No growth. 11/28/21 09:32 Sputum - Suctioned Gram Stain - Final 11/28/21 09:32 Sputum - Suctioned Sputum Culture - Final Kimberly albicans 11/25/21 01:47 Blood - Venous Blood Culture - Final No growth after 5 days. 11/25/21 01:42 Blood - Venous Blood Culture - Final No growth after 5 days. Quality Stroke Does the patient have a stroke diagnosis?: No VTE Prior VTE?: No VTE Risk Level:: Medical - moderate - high VTE Device Contraindication: Treatment Not Indicated VTE Drug Contraindication: N/A - Med Ordered Critical Care Time Critical Care Time (minutes): 60
[2021-12-12] MEDS: modafiniL 100 MG TABLET 200 MG PO (13:06)
[2021-12-12 16:31] LABS: Glucose, Whole Blood 126 mg/dL (60-115)
[2021-12-12] MEDS: Pantoprazole Sodium 40 MG/10 ML VIAL IVPUSH (17:33)
[2021-12-12] MEDS: HYDROmorphone HCl 1 MG/ML SYRINGE 0.5 MG IVPUSH ×2 (19:18→21:41)
[2021-12-12 20:49] LABS: Glucose, Whole Blood 65 mg/dL (60-115)
[2021-12-13] VITALS (29 sets, daily range): BP systolic 95–145; BP diastolic 42–108; PULSE 87–138; RESP 13–28; TEMP 35.4–37.5; O2SAT 90–98; BMI 57.1
[2021-12-13] MEDS: 0.9 % Sodium Chloride Flush 3 ML SYRINGE IVFLUSH ×2 (00:01→08:06)
[2021-12-13] MEDS: HYDROmorphone HCl 1 MG/ML SYRINGE 0.5 MG IVPUSH (00:09)
[2021-12-13] MEDS: acetaZOLAMIDE sodium 500 MG VIAL 250 MG IVPUSH (02:19)
[2021-12-13] MEDS: Metoprolol Tartrate 5 MG/5 ML VIAL IVPUSH (04:13)
[2021-12-13] MEDS: Albuterol/Iprat 2.5/0.5MG 3 ML AMPUL.NEB INHALE ×3 (04:53→23:55)
--- NOTE | 2021-12-13 04:55 | PC.NURSE ---
CARE ASSUMED 23:15...REMAINS ON BIPAP 10/5 AND FIO2 24%..RR 24...Ve 10-12 L/M...ATRIAL FIB HR 110'S AT HS...LEVOPHED DRIP 0.02 MCG/KG/MIN WEANED OFF OVERNIGHT...CONTINUES LASIX DRIP 5 MG/HR...MEDICATED X1 WITH PRN DILAUDID IV FOR C/O BACK/LEG PAIN WITH RELIEF...INCREASED HR TO 130'S OVERNIGHT..SCHEDULED CARDIZEM/LOPRESSOR PO NOT DUE UNTIL DAY SHIFT...ICU PA PRESENT AND AWARE...LOPRESSOR 5 MG IV X1 GIVEN FOR ELEVATED HR ...REMAINS ATRIAL FIB HR 100'S-110'S POST-LOPRESSOR...RECTAL TUBE WITH LIQUIED BROWN STOOL AND SOME LEAKAGE...DENIES PAIN OR SOB AT PRESENT
[2021-12-13 05:30] LABS: VBG Base Excess 4.8 mmol/L; VBG HCO3 30 mmol/L (22-26); VBG pCO2 51 mmHg; VBG pH 7.38 (7.32-7.43); VBG pO2 42 mmHg
[2021-12-13 05:35] LABS: Venous Blood Gas Refer to POC result
[2021-12-13 05:39] LABS: MANUAL DIFF FLAG NO
[2021-12-13 05:49] LABS: Basophils Percent Auto 0.3 % (0-2); Eosinophils Absolute Auto 0.2 X10*3/uL (0.0-0.4); Eosinophils Percent Auto 1.1 % (0-4); Hematocrit 29.1 % (37.0-47.0); Hemoglobin 8.5 g/dl (12.0-16.0); Imm Gran Abs Auto 0.11 X10*3/uL (0.00-0.03); Imm Gran Pct Auto 0.7 % (0.0-0.4); Lymphocytes Absolute Auto 0.8 X10*3/uL (1.2-4.9); Lymphocytes Percent Auto 5.6 % (20-40); Mean Corpuscular HGB Conc 29.2 g/dl (31.0-35.0); Mean Platelet Volume 11.2 fL (9.4-12.3); Monocytes Absolute Auto 0.9 X10*3/uL (0.1-1.2); Monocytes Percent Auto 6.3 % (2-11); Neutrophils Absolute Auto 12.8 x10*3/uL (2.0-8.3); Platelet Count 325 X10*3/uL (160-400); Red Blood Count 4.04 X10*6/uL (4.20-5.50); Red Cell Distribution Width 27.8 % (11.0-16.0); SCAN SMEAR FLAG 1; White Blood Count 14.9 X10*3/uL (4.8-10.8)
[2021-12-13 05:50] LABS: PLT ABN DIST 1
[2021-12-13] MEDS: Pantoprazole Sodium 40 MG/10 ML VIAL IVPUSH ×2 (06:00→14:45)
[2021-12-13 06:01] LABS: Alanine Aminotransferase 25 U/L (0-31); Albumin Level 2.7 g/dL (3.5-5.0); Alkaline Phosphatase 60 U/L (39-117); Anion Gap 14 (12-20); Aspartate Amino Transferase 36 U/L (5-31); Bilirubin Total 0.7 mg/dL (0.0-1.0); Blood Urea Nitrogen 18 mg/dL (9-16); Calcium 7.9 mg/dL (8.4-10.2); Carbon Dioxide 27 mmol/L (22-29); Chloride 103 mmol/L (96-108); Creatinine Clr Calc Pharmacy 88.3; Estimated Glomerular Filt Rate 58; Glucose Random 60 mg/dL (60-115); Phosphorus 4.4 mg/dL (2.7-4.5); Potassium 3.1 mmol/L (3.3-5.1); Sodium 141 mmol/L (135-145); Total Protein 5.2 g/dL (6.5-8.0)
[2021-12-13 07:51] LABS: Glucose, Whole Blood 57 mg/dL (60-115)
[2021-12-13] MEDS: Dextrose 50 % 25 GM/50 ML SYRINGE IVPUSH ×2 (07:55→16:30)
[2021-12-13] MEDS: dilTIAZem HCL 60 MG TABLET PO (08:05)
[2021-12-13] MEDS: Atorvastatin Calcium 10 MG TABLET PO (08:05)
[2021-12-13] MEDS: Apixaban 5 MG TABLET PO ×2 (08:05→23:01)
[2021-12-13] MEDS: Metoprolol Tartrate 25 MG TABLET PO (08:05)
[2021-12-13] MEDS: Chlorhexidine Gluc Oral Rinse 15 ML MOUTHWASH BUCCAL ×2 (08:06→14:45)
[2021-12-13] MEDS: Nystatin Powder 15 GM BOTTLE 1 APPL TOPICAL ×3 (08:07→23:17)
[2021-12-13] MEDS: Spironolactone 25 MG TABLET PO (08:07)
[2021-12-13] MEDS: modafiniL 100 MG TABLET 200 MG PO (08:16)
[2021-12-13 08:32] LABS: Glucose, Whole Blood 122 mg/dL (60-115)
[2021-12-13] MEDS: Potassium Chloride/H20 10 MEQ/100 ML PIGGYBACK 100 MEQ IV ×4 (08:41→13:06)
[2021-12-13] MEDS: Digoxin 0.25 MG TABLET 0.5 MG PO (09:16)
--- NOTE | 2021-12-13 11:23 | MHC.CLN ---
RE: CONSULT PT EXTUBATED 12/12 WILL CHANGE DIET ORDER TO NPO AT THIS TIME PT WITH INCREASED NUTRITION RISK R/T PRESSURE INJURY WHEN DIET TO ADVANCE, RECOMMEND ADDING ENSURE BID TO INCREASE KCALS AND PROMOTE WOUND HEALING MONITOR PO INTAKE CLOSELY SEE ALSO CLINICAL NUTRITION ASSESSMENT
[2021-12-13 11:57] LABS: Glucose, Whole Blood 85 mg/dL (60-115)
--- NOTE | 2021-12-13 13:47 | MHC.SL.SWA ---
Speech Pathologist Impression: Risk of Aspiration Oralpharyngeal Dysphagia Risk of Aspiration Due to: Poor PO Intake Hx of Recent Extubation Reduced Cognition Dysphasia Diet Status: Upgrade Liquid Consistency and Strategies for Safe Swallow: Liquid Intake Recommendation: Honey Thick Liquid Intake Strategies: Small Sips No Straws Solid Food Consistency: Dietary Recommendations: Pureed (NDD1) Additional Modifications to Solid Foods: Recommend PUREED (NDD1) solids and HONEY THICK liquids, pills CRUSHED in PUREE. Patient requires 1:1 assistance feeding. Recommend strict aspiration precautions and close monitoring during meals. Noonan message sent to RN, RD, MD. IRON PILER will continue to follow. Oral Medication Intake: Crushed with Puree Compensatory Strategies and Precautions to be Taken for Safe Swallow: Sitting Upright (90 deg) No Straw Small Bites and Sips Rate of Ingestion Change Oral Check Supervision While Eating and Drinking for Safe Swallow: Total Assistance Swallowing Recommended Treatments: Compens. Strategy Educat. Recommendation for Speech: Inpatient Speech Therapy Log Stacker Operator Clinican/Clinical Fellow: No Supervisory Statement: I have reviewed and agree with the student/clinical fellow's documentation: N/A Speech Language Pathologist: Lisa Bolton M.A., CCC-IRON PILER
[2021-12-13 15:28] LABS: VBG Base Excess 8.3 mmol/L; VBG HCO3 31 mmol/L (22-26); VBG pCO2 38 mmHg; VBG pH 7.52 (7.32-7.43); VBG pO2 48 mmHg
[2021-12-13 16:31] LABS: Glucose, Whole Blood 57 mg/dL (60-115)
--- NOTE | 2021-12-13 16:40 | MHC.CM.PN ---
Patient remains in ICU. Extubated 12/12. Patient is intermediate card tender care resident of [place] with guardian in [place]. Continue to monitor for d/c needs.
[2021-12-13 16:47] LABS: Glucose, Whole Blood 82 mg/dL (60-115)
--- NOTE | 2021-12-13 17:36 | P.PNCC_ITS ---
Subjective Subjective Date of Service: 12/13/21 Interval History: 66-year-old female recently extubated after originally presenting with a angioneurotic edema picture compromised airway with tongue swelling we do not know the precipitating reason only that she was on lisinopril but also has evidence of a significant diastolic dysfunction and chronic atrial fibrillation probably at least class 3 diastolic dysfunction so normal ejection fraction and that it did have CHF manifestation is well she got a background of schizoaffective disorder chronic hyponatremia always presumed to be related to alcoholic cirrhosis she was reintubated after the 1st attempted extubation still has an an elevated CVP of almost 20 has a respiratory pattern that is unusual utilizing for inspiration her accessory muscles yet it appear she has got very little chest excursion so I do not know if it represents intercostal dysfunction verses diaphragmatic dysfunction which remains ill-defined in etiology but she disclaimer dyspnea maintaining good oxygen saturation on room air has a fairly clean chest x-ray and bedside cardiac function shows preserved ejection fraction with no primary valve or pericardial disease a and I maintained the continuous IV Lasix drip until the CVP did come down to a certain level and paste the back on BiPAP which allowed her to further diurese naturally because of the potassium depletion that she already had Critical Care Time (minutes): 60 Physical Exam Verdana 4l Vital Signs: Verdana 4d Verdana 4d Vital Signs: Verdana 4d Verdana 4Bd Last Vital Signs Verdana 4d C2 Tactical Analysis Technician New 4d C2 Tactical Analysis Technician New 4d Temp 97.7 F 12/13/21 16:00 C2 Tactical Analysis Technician New 4d Pulse 100 12/13/21 17:00 C2 Tactical Analysis Technician New 4d Resp 20 12/13/21 17:00 BP 129/57 L 12/13/21 17:00 Pulse Ox 98 12/13/21 17:00 Oxygen Flow Rate 30 12/02/21 00:00 BMI result Body Mass Index 57.1 awake and answering questions and nonfocal neurologically elevated CVP modestly elevated heart rate in atrial fibrillation being slowed down now with digoxin at this point and because of the accessory muscle effort and the diaphragmatic effort with prolonged next for linda time I felt that fluid overload was partly responsible and is no stridor it does not appear she is pulling against an upper airway obstruction I at think it represents weakness of her respiratory muscles and this could have been because of prolonged steroids abdomen benign soft with no organomegaly Objective Data Labs CBC & Chem 7: 12/14/21 04:48 12/14/21 04:48 Labs: Laboratory Results - last 24 hr 12/08/21 12/12/21 12/13/21 05:27 20:46 05:20 WBC 14.9 H RBC 4.04 L Hgb 8.5 L Hct 29.1 L MCV 72.0 L MCH 21.0 L MCHC 29.2 L RDW 27.8 H Plt Count 325 D MPV 11.2 Immature Gran % (Auto) 0.7 H Neut % (Auto) 86.0 H Lymph % (Auto) 5.6 L [place] % (Auto) 6.3 Eos % (Auto) 1.1 Baso % (Auto) 0.3 Lymph # (Auto) 0.8 L [place] # (Auto) 0.9 Eos # (Auto) 0.2 Baso # (Auto) 0.0 Abs Immat Gran (auto) 0.11 H Absolute Neuts (auto) 12.8 H Absolute Nucleated RBC 0.000 Nucleated RBC % (auto) 0.0 VBG pH 7.52 H VBG pCO2 38 VBG pO2 48 VBG HCO3 31 H VBG O2 Saturation 79.0 VBG Base Excess 8.3 Sodium Potassium Chloride Carbon Dioxide Anion Gap BUN Creatinine Estim Creat Clear Calc Estimated GFR POC Glucose 65 Random Glucose Calcium Phosphorus Total Bilirubin AST ALT Alkaline Phosphatase Total Protein Albumin 12/13/21 12/13/21 12/13/21 05:20 05:23 07:40 WBC RBC Hgb Hct MCV MCH MCHC RDW Plt Count MPV Immature Gran % (Auto) Neut % (Auto) Lymph % (Auto) [place] % (Auto) Eos % (Auto) Baso % (Auto) Lymph # (Auto) [place] # (Auto) Eos # (Auto) Baso # (Auto) Abs Immat Gran (auto) Absolute Neuts (auto) Absolute Nucleated RBC Nucleated RBC % (auto) VBG pH 7.38 VBG pCO2 51 VBG pO2 42 VBG HCO3 30 H VBG O2 Saturation 66.0 VBG Base Excess 4.8 Sodium 141 Potassium 3.1 L D Chloride 103 Carbon Dioxide 27 Anion Gap 14 BUN 18 H Creatinine 0.96 Estim Creat Clear Calc 88.3 Estimated GFR 58 POC Glucose 57 L* Random Glucose 60 Calcium 7.9 L Phosphorus 4.4 Total Bilirubin 0.7 AST 36 H D ALT 25 Alkaline Phosphatase 60 Total Protein 5.2 L Albumin 2.7 L 12/13/21 12/13/21 12/13/21 08:30 11:44 16:22 WBC RBC Hgb Hct MCV MCH MCHC RDW Plt Count MPV Immature Gran % (Auto) Neut % (Auto) Lymph % (Auto) [place] % (Auto) Eos % (Auto) Baso % (Auto) Lymph # (Auto) [place] # (Auto) Eos # (Auto) Baso # (Auto) Abs Immat Gran (auto) Absolute Neuts (auto) Absolute Nucleated RBC Nucleated RBC % (auto) VBG pH VBG pCO2 VBG pO2 VBG HCO3 VBG O2 Saturation VBG Base Excess Sodium Potassium Chloride Carbon Dioxide Anion Gap BUN Creatinine Estim Creat Clear Calc Estimated GFR POC Glucose 122 H 85 57 L* Random Glucose Calcium Phosphorus Total Bilirubin AST ALT Alkaline Phosphatase Total Protein Albumin 12/13/21 16:43 WBC RBC Hgb Hct MCV MCH MCHC RDW Plt Count MPV Immature Gran % (Auto) Neut % (Auto) Lymph % (Auto) [place] % (Auto) Eos % (Auto) Baso % (Auto) Lymph # (Auto) [place] # (Auto) Eos # (Auto) Baso # (Auto) Abs Immat Gran (auto) Absolute Neuts (auto) Absolute Nucleated RBC Nucleated RBC % (auto) VBG pH VBG pCO2 VBG pO2 VBG HCO3 VBG O2 Saturation VBG Base Excess Sodium Potassium Chloride Carbon Dioxide Anion Gap BUN Creatinine Estim Creat Clear Calc Estimated GFR POC Glucose 82 Random Glucose Calcium Phosphorus Total Bilirubin AST ALT Alkaline Phosphatase Total Protein Albumin Microbiology Microbiology Results: Microbiology 12/12/21 02:35 Urine Catheterized - Airas Catheter Urine Culture - Final No growth. 12/11/21 19:58 Blood - Venous Blood Culture - Preliminary No growth after 24 hours. 12/11/21 19:58 Blood - Venous Blood Culture - Preliminary No growth after 24 hours. 12/08/21 15:40 Bronch Lll Gram Stain - Final 12/08/21 15:40 Bronch Lll Routine Culture - Final No growth after 2 days 12/05/21 21:20 Blood - Venous Blood Culture - Final No growth after 5 days. 12/05/21 21:20 Blood - Venous Blood Culture - Final No growth after 5 days. 12/08/21 Unknown Buttock Right Gram Stain - Final 12/08/21 Unknown Buttock Right Routine Culture - Final 12/06/21 20:12 Sputum - Suctioned Gram Stain - Final 12/06/21 20:12 Sputum - Suctioned Sputum Culture - Final 12/06/21 18:16 Urine Catheterized - Arias Catheter Urine Culture - Final No growth. 11/28/21 09:32 Sputum - Suctioned Gram Stain - Final 11/28/21 09:32 Sputum - Suctioned Sputum Culture - Final Kimberly albicans 11/25/21 01:47 Blood - Venous Blood Culture - Final No growth after 5 days. 11/25/21 01:42 Blood - Venous Blood Culture - Final No growth after 5 days. Progress Note: A&P Assessment and plan (1) Fever of unknown origin: Status: Acute (2) Acute encephalopathy: Status: Acute (3) Acute respiratory failure: Status: Acute (4) Schizoaffective disorder: Status: Acute (5) CKD (chronic kidney disease): Status: Acute (6) Alcoholic cirrhosis of liver: Status: Acute (7) Angioedema: Status: Acute (8) Acute anaphylaxis: Status: Acute (9) Dyspnea: Status: Acute (10) Hyponatremia: Status: Acute (11) Atrial fibrillation with RVR: Status: Acute (12) Pneumonia: Status: Acute (13) Chronic hyponatremia: Status: Acute (14) Acute hyperkalemia: Status: Acute (15) CHF exacerbation: Status: Acute (16) Diastolic CHF with preserved left ventricular function, NYHA class 2: Status: Acute Plan plan is to rest her through the afternoon and introduce food that she has been cleared for by swallow in the morning to promote auto diuresis to keep her euvolemic and reassess her off BiPAP in the morning because little by little her pCO2 levels are coming down so clearly alveolar ventilation is improving Quality Stroke Does the patient have a stroke diagnosis?: No VTE Prior VTE?: No VTE Risk Level:: Medical - moderate - high VTE Device Contraindication: Treatment Not Indicated VTE Drug Contraindication: N/A - Med Ordered
[2021-12-13 18:03] LABS: Glucose, Whole Blood 108 mg/dL (60-115)
[2021-12-13 20:55] LABS: Glucose, Whole Blood 79 mg/dL (60-115)
[2021-12-13] MEDS: Digoxin 0.25 MG TABLET PO (23:01)
[2021-12-13] MEDS: Metoprolol Tartrate 50 MG TABLET PO (23:03)
[2021-12-14] VITALS (28 sets, daily range): BP systolic 105–158; BP diastolic 31–117; PULSE 89–120; RESP 13–34; TEMP 35.7–37.7; O2SAT 89–98; BMI 56.6
[2021-12-14] MEDS: 0.9 % Sodium Chloride Flush 3 ML SYRINGE IVFLUSH (00:22)
[2021-12-14 05:04] LABS: VBG Base Excess 3.5 mmol/L; VBG HCO3 28 mmol/L (22-26); VBG pCO2 42 mmHg; VBG pH 7.42 (7.32-7.43); VBG pO2 41 mmHg
[2021-12-14 05:11] LABS: MANUAL DIFF FLAG NO
[2021-12-14 05:18] LABS: Venous Blood Gas Refer to POC result
[2021-12-14 05:19] LABS: Basophils Percent Auto 0.2 % (0-2); Eosinophils Absolute Auto 0.1 X10*3/uL (0.0-0.4); Eosinophils Percent Auto 1.3 % (0-4); Hemoglobin 8.2 g/dl (12.0-16.0); Imm Gran Abs Auto 0.08 X10*3/uL (0.00-0.03); Imm Gran Pct Auto 0.8 % (0.0-0.4); Lymphocytes Absolute Auto 0.7 X10*3/uL (1.2-4.9); Lymphocytes Percent Auto 6.7 % (20-40); Mean Corpuscular HGB Conc 29.3 g/dl (31.0-35.0); Mean Corpuscular Hemoglobin 21.1 pg (27.0-33.0); Mean Platelet Volume 10.8 fL (9.4-12.3); Monocytes Absolute Auto 0.8 X10*3/uL (0.1-1.2); Monocytes Percent Auto 7.8 % (2-11); Neutrophils Absolute Auto 8.6 x10*3/uL (2.0-8.3); Neutrophils Percent Auto 83.2 % (45-73); Platelet Count 420 X10*3/uL (160-400); Red Blood Count 3.89 X10*6/uL (4.20-5.50); Red Cell Distribution Width 27.8 % (11.0-16.0); White Blood Count 10.3 X10*3/uL (4.8-10.8)
[2021-12-14 05:34] LABS: INTERNATIONAL NORM RATIO 1.9 (0.9-1.1); Prothrombin Time 22.4 SEC (9.9-13.0)
[2021-12-14 05:36] LABS: Partial Thromboplastin Time 44.5 SEC (24.1-38.0)
[2021-12-14 05:39] LABS: B Type Natriuretic Peptide 253 pg/mL (<100)
[2021-12-14 05:41] LABS: Alanine Aminotransferase 25 U/L (0-31); Albumin Level 2.6 g/dL (3.5-5.0); Alkaline Phosphatase 61 U/L (39-117); Anion Gap 8 (12-20); Aspartate Amino Transferase 30 U/L (5-31); Bilirubin Direct 0.5 mg/dL (0.0-0.5); Bilirubin Total 0.6 mg/dL (0.0-1.0); Blood Urea Nitrogen 15 mg/dL (9-16); Calcium 8.2 mg/dL (8.4-10.2); Carbon Dioxide 30 mmol/L (22-29); Chloride 105 mmol/L (96-108); Creatinine Clr Calc Pharmacy 111.5; Estimated Glomerular Filt Rate > 60; Glucose Random 66 mg/dL (60-115); Magnesium 2.1 mg/dL (1.6-2.6); Phosphorus 2.7 mg/dL (2.7-4.5); Sodium 140 mmol/L (135-145)
[2021-12-14] MEDS: Pantoprazole Sodium 40 MG/10 ML VIAL IVPUSH (06:24)
--- NOTE | 2021-12-14 06:30 | PC.NURSE ---
Shift eval 11p-7a - Patient alert, oriented to name, place - situation vague. Patient cooperative - tolerated bipap through night. Mouth care done. Patient had copious amt of liquid brown stool - incont - inserted rectal tube r/t skin integrity issues. foam dressing on coccyx changed x2. necrotic tissue noted in wound bed. Reposition Q2H.
[2021-12-14 07:26] LABS: Glucose, Whole Blood 72 mg/dL (60-115)
[2021-12-14] MEDS: Spironolactone 25 MG TABLET PO (08:53)
[2021-12-14] MEDS: Atorvastatin Calcium 10 MG TABLET PO (08:53)
[2021-12-14] MEDS: Metoprolol Tartrate 50 MG TABLET PO ×2 (08:53→20:56)
[2021-12-14] MEDS: Apixaban 5 MG TABLET PO ×2 (08:53→20:56)
[2021-12-14] MEDS: Nystatin Powder 15 GM BOTTLE 1 APPL TOPICAL ×3 (08:54→22:33)
[2021-12-14] MEDS: Potassium Chloride Packet 20 MEQ PACKET 40 MEQ PO (08:59)
[2021-12-14] MEDS: Digoxin 0.25 MG TABLET PO (09:01)
[2021-12-14 11:23] LABS: Glucose, Whole Blood 71 mg/dL (60-115)
--- NOTE | 2021-12-14 11:46 | MHC.CLN ---
F/U RESEARCH NURSE REC PUREED WITH HT LIQ SEE REC 12/13 DISCUSSED AT ROUNDS WITH MD WILL ADVANCE DIET TO PUREED WITH HT LIQ WILL START ENSURE BID TO PROVIDE 700KCALS, 40G PROTEIN SUPP TO PROMOTE WOUND HEALING MONITOR PO INTAKE CLOSELY
[2021-12-14 16:20] LABS: Glucose, Whole Blood 72 mg/dL (60-115)
--- NOTE | 2021-12-14 16:59 | P.PNCC_ITS ---
Subjective Subjective Date of Service: 12/14/21 Interval History: 66-year-old female status post angioneurotic edema with intubation for compromised airway also has background of chronic atrial fibrillation and heart failure with normal ejection fraction with severe diastolic dysfunction and currently doing well appears to be euvolemic still has a modestly elevated CVP of approximately 10 which is still much better than where she had been diuresed well just by wearing the BiPAP last night and she has been off the Lasix drip now for 24 hours pCO2 levels are coming down meaning alveolar ventilation is improving still has that pattern of inspiration using accessory muscles and I think it is compensating for weakness of her intercostals of overt or even her diaphragm to a degree nonetheless she does not complain of dyspnea not a terribly tachypneic respiratory rate stable id in the range of 20 with room air oxygen saturations in the mid 90s Critical Care Time (minutes): 45 Physical Exam Verdana 4l Vital Signs: Verdana 4d Verdana 4d Vital Signs: Verdana 4d Verdana 4Bd Last Vital Signs Verdana 4d Tread Cutter New 4d Tread Cutter New 4d Temp 98.1 F 12/14/21 15:00 Tread Cutter New 4d Pulse 106 H 12/14/21 16:00 Tread Cutter New 4d Resp 26 H 12/14/21 16:00 BP 141/117 H 12/14/21 16:00 Pulse Ox 97 12/14/21 16:00 Oxygen Flow Rate 30 12/02/21 00:00 BMI result Body Mass Index 56.6 stable cognitive function and able to answer no agitation completely oriented and n onfocal no wheezing no diaphragmatic effort but accessory muscle use I believe compensating for into costal weakness cardiac exam by bedside echo stable normal ejection fraction abdomen benign no again a megaly she has a is superficial ulcer overlying coccyx but physical therapy is now mobilizing her out of bed Objective Data Labs CBC & Chem 7: 12/14/21 04:48 12/14/21 04:48 Labs: Laboratory Results - last 24 hr 12/13/21 12/13/21 12/14/21 17:44 20:49 04:48 WBC 10.3 RBC 3.89 L Hgb 8.2 L Hct 28.0 L MCV 72.0 L MCH 21.1 L MCHC 29.3 L RDW 27.8 H Plt Count 420 H D MPV 10.8 Immature Gran % (Auto) 0.8 H Neut % (Auto) 83.2 H Lymph % (Auto) 6.7 L [place] % (Auto) 7.8 Eos % (Auto) 1.3 Baso % (Auto) 0.2 Lymph # (Auto) 0.7 L [place] # (Auto) 0.8 Eos # (Auto) 0.1 Baso # (Auto) 0.0 Abs Immat Gran (auto) 0.08 H Absolute Neuts (auto) 8.6 H Absolute Nucleated RBC 0.000 Nucleated RBC % (auto) 0.0 PT INR APTT VBG pH VBG pCO2 VBG pO2 VBG HCO3 VBG O2 Saturation VBG Base Excess Sodium Potassium Chloride Carbon Dioxide Anion Gap BUN Creatinine Estim Creat Clear Calc Estimated GFR POC Glucose 108 79 Random Glucose Calcium Phosphorus Magnesium Total Bilirubin Direct Bilirubin AST ALT Alkaline Phosphatase B-Natriuretic Peptide Total Protein Albumin 12/14/21 12/14/21 12/14/21 04:48 04:48 04:48 WBC RBC Hgb Hct MCV MCH MCHC RDW Plt Count MPV Immature Gran % (Auto) Neut % (Auto) Lymph % (Auto) [place] % (Auto) Eos % (Auto) Baso % (Auto) Lymph # (Auto) [place] # (Auto) Eos # (Auto) Baso # (Auto) Abs Immat Gran (auto) Absolute Neuts (auto) Absolute Nucleated RBC Nucleated RBC % (auto) PT 22.4 H INR 1.9 H APTT 44.5 H VBG pH VBG pCO2 VBG pO2 VBG HCO3 VBG O2 Saturation VBG Base Excess Sodium 140 Potassium 3.0 L Chloride 105 Carbon Dioxide 30 H Anion Gap 8 L BUN 15 Creatinine 0.76 Estim Creat Clear Calc 111.5 Estimated GFR > 60 POC Glucose Random Glucose 66 Calcium 8.2 L Phosphorus 2.7 Magnesium 2.1 Total Bilirubin 0.6 Direct Bilirubin 0.5 AST 30 ALT 25 Alkaline Phosphatase 61 B-Natriuretic Peptide 253 H Total Protein 5.0 L Albumin 2.6 L 12/14/21 12/14/21 12/14/21 04:57 07:13 11:20 WBC RBC Hgb Hct MCV MCH MCHC RDW Plt Count MPV Immature Gran % (Auto) Neut % (Auto) Lymph % (Auto) [place] % (Auto) Eos % (Auto) Baso % (Auto) Lymph # (Auto) [place] # (Auto) Eos # (Auto) Baso # (Auto) Abs Immat Gran (auto) Absolute Neuts (auto) Absolute Nucleated RBC Nucleated RBC % (auto) PT INR APTT VBG pH 7.42 VBG pCO2 42 VBG pO2 41 VBG HCO3 28 H VBG O2 Saturation 61.0 VBG Base Excess 3.5 Sodium Potassium Chloride Carbon Dioxide Anion Gap BUN Creatinine Estim Creat Clear Calc Estimated GFR POC Glucose 72 71 Random Glucose Calcium Phosphorus Magnesium Total Bilirubin Direct Bilirubin AST ALT Alkaline Phosphatase B-Natriuretic Peptide Total Protein Albumin 12/14/21 16:17 WBC RBC Hgb Hct MCV MCH MCHC RDW Plt Count MPV Immature Gran % (Auto) Neut % (Auto) Lymph % (Auto) [place] % (Auto) Eos % (Auto) Baso % (Auto) Lymph # (Auto) [place] # (Auto) Eos # (Auto) Baso # (Auto) Abs Immat Gran (auto) Absolute Neuts (auto) Absolute Nucleated RBC Nucleated RBC % (auto) PT INR APTT VBG pH VBG pCO2 VBG pO2 VBG HCO3 VBG O2 Saturation VBG Base Excess Sodium Potassium Chloride Carbon Dioxide Anion Gap BUN Creatinine Estim Creat Clear Calc Estimated GFR POC Glucose 72 Random Glucose Calcium Phosphorus Magnesium Total Bilirubin Direct Bilirubin AST ALT Alkaline Phosphatase B-Natriuretic Peptide Total Protein Albumin Microbiology Microbiology Results: Microbiology 12/11/21 19:58 Blood - Venous Blood Culture - Preliminary No growth after 48 hours. 12/11/21 19:58 Blood - Venous Blood Culture - Preliminary No growth after 48 hours. 12/12/21 02:35 Urine Catheterized - Arias Catheter Urine Culture - Final No growth. 12/08/21 15:40 Bronch Lll Gram Stain - Final 12/08/21 15:40 Bronch Lll Routine Culture - Final No growth after 2 days 12/05/21 21:20 Blood - Venous Blood Culture - Final No growth after 5 days. 12/05/21 21:20 Blood - Venous Blood Culture - Final No growth after 5 days. 12/08/21 Unknown Buttock Right Gram Stain - Final 12/08/21 Unknown Buttock Right Routine Culture - Final 12/06/21 20:12 Sputum - Suctioned Gram Stain - Final 12/06/21 20:12 Sputum - Suctioned Sputum Culture - Final 12/06/21 18:16 Urine Catheterized - Arias Catheter Urine Culture - Final No growth. 11/28/21 09:32 Sputum - Suctioned Gram Stain - Final 11/28/21 09:32 Sputum - Suctioned Sputum Culture - Final Kimberly albicans 11/25/21 01:47 Blood - Venous Blood Culture - Final No growth after 5 days. 11/25/21 01:42 Blood - Venous Blood Culture - Final No growth after 5 days. Progress Note: A&P Assessment and plan (1) Diastolic CHF with preserved left ventricular function, NYHA class 2: Status: Acute (2) CHF exacerbation: Status: Acute (3) Fever of unknown origin: Status: Acute (4) Acute encephalopathy: Status: Acute (5) Acute respiratory failure: Status: Acute (6) Schizoaffective disorder: Status: Acute (7) CKD (chronic kidney disease): Status: Acute (8) Alcoholic cirrhosis of liver: Status: Acute (9) Angioedema: Status: Acute (10) Acute anaphylaxis: Status: Acute (11) Dyspnea: Status: Acute (12) Hyponatremia: Status: Acute (13) Atrial fibrillation with RVR: Status: Acute (14) Pneumonia: Status: Acute (15) Chronic hyponatremia: Status: Acute (16) Acute hyperkalemia: Status: Acute Plan plan is to rest her again overnight with BiPAP and if she could stay off all day we could transfer up to the floor and were feeding her limited diet now and working with physical therapy and reassess her respiratory effort in the morning Quality Stroke Does the patient have a stroke diagnosis?: No VTE Prior VTE?: No VTE Risk Level:: Medical - moderate - high VTE Device Contraindication: Treatment Not Indicated VTE Drug Contraindication: N/A - Med Ordered
[2021-12-14 20:34] LABS: Glucose, Whole Blood 79 mg/dL (60-115)
[2021-12-15] VITALS (24 sets, daily range): BP systolic 120–175; BP diastolic 47–85; PULSE 97–126; RESP 16–36; TEMP 37.2–38.1; O2SAT 91–95; BMI 55.1
[2021-12-15] MEDS: 0.9 % Sodium Chloride Flush 3 ML SYRINGE IVFLUSH ×4 (01:04→20:57)
[2021-12-15 05:31] LABS: MANUAL DIFF FLAG NO
[2021-12-15 05:40] LABS: Basophils Percent Auto 0.2 % (0-2); Eosinophils Absolute Auto 0.1 X10*3/uL (0.0-0.4); Eosinophils Percent Auto 1.3 % (0-4); Hematocrit 30.6 % (37.0-47.0); Hemoglobin 8.9 g/dl (12.0-16.0); Imm Gran Abs Auto 0.06 X10*3/uL (0.00-0.03); Imm Gran Pct Auto 0.6 % (0.0-0.4); Lymphocytes Absolute Auto 0.7 X10*3/uL (1.2-4.9); Lymphocytes Percent Auto 7.3 % (20-40); Mean Corpuscular HGB Conc 29.1 g/dl (31.0-35.0); Mean Corpuscular Hemoglobin 21.3 pg (27.0-33.0); Mean Corpuscular Volume 73.2 fL (80.0-98.0); Mean Platelet Volume 9.8 fL (9.4-12.3); Monocytes Absolute Auto 0.8 X10*3/uL (0.1-1.2); Monocytes Percent Auto 7.8 % (2-11); Neutrophils Percent Auto 82.8 % (45-73); Platelet Count 562 X10*3/uL (160-400); Red Blood Count 4.18 X10*6/uL (4.20-5.50); Red Cell Distribution Width 28.6 % (11.0-16.0); White Blood Count 9.7 X10*3/uL (4.8-10.8)
[2021-12-15 05:47] LABS: INTERNATIONAL NORM RATIO 2.1 (0.9-1.1); Prothrombin Time 24.2 SEC (9.9-13.0)
[2021-12-15 05:50] LABS: Partial Thromboplastin Time 39.5 SEC (24.1-38.0)
[2021-12-15 05:55] LABS: B Type Natriuretic Peptide 433 pg/mL (<100)
[2021-12-15 05:58] LABS: Alanine Aminotransferase 31 U/L (0-31); Albumin Level 2.7 g/dL (3.5-5.0); Alkaline Phosphatase 65 U/L (39-117); Anion Gap 11 (12-20); Aspartate Amino Transferase 33 U/L (5-31); Bilirubin Direct 0.4 mg/dL (0.0-0.5); Bilirubin Total 0.7 mg/dL (0.0-1.0); Blood Urea Nitrogen 13 mg/dL (9-16); Calcium 8.1 mg/dL (8.4-10.2); Carbon Dioxide 26 mmol/L (22-29); Chloride 109 mmol/L (96-108); Creatinine Clr Calc Pharmacy 122.2; Estimated Glomerular Filt Rate > 60; Glucose Random 78 mg/dL (60-115); Magnesium 2.2 mg/dL (1.6-2.6); Phosphorus 2.4 mg/dL (2.7-4.5); Potassium 3.3 mmol/L (3.3-5.1); Sodium 143 mmol/L (135-145); Total Protein 5.2 g/dL (6.5-8.0)
[2021-12-15 07:31] LABS: Glucose, Whole Blood 82 mg/dL (60-115)
[2021-12-15] MEDS: Digoxin 0.25 MG TABLET PO (08:23)
[2021-12-15] MEDS: Spironolactone 25 MG TABLET PO (08:23)
[2021-12-15] MEDS: Apixaban 5 MG TABLET PO ×2 (08:23→20:53)
[2021-12-15] MEDS: Atorvastatin Calcium 10 MG TABLET PO (08:24)
[2021-12-15] MEDS: Metoprolol Tartrate 50 MG TABLET PO (08:24)
[2021-12-15] MEDS: Nystatin Powder 15 GM BOTTLE 1 APPL TOPICAL ×3 (08:25→20:57)
[2021-12-15] MEDS: Potassium Chloride/H20 10 MEQ/100 ML PIGGYBACK 100 MEQ IV (09:00)
[2021-12-15 09:46] LABS: VBG Base Excess 0.1 mmol/L; VBG HCO3 23 mmol/L (22-26); VBG pCO2 34 mmHg; VBG pH 7.44 (7.32-7.43); VBG pO2 84 mmHg
--- NOTE | 2021-12-15 10:31 | PC.NURSE ---
Skin/wound assessment completed today. patient has pressure ulcers to bilateral buttocks- edges are pink with bleeding then into stage 2 with sheldon/white areas which progresses to necrotic unstageable tissue to coccyx. A surgical consult has been entered for debridement of area. Will continue to follow.
[2021-12-15 10:59] LABS: Venous Blood Gas Refer to POC result
[2021-12-15 11:27] LABS: Glucose, Whole Blood 86 mg/dL (60-115)
--- NOTE | 2021-12-15 12:45 | P.PNCC_ITS ---
Subjective Subjective Date of Service: 12/15/21 Interval History: Year old female who is a type 2 diabetic and morbidly obese background history of smoking related COPD she has a background of alcoholic cirrhosis but has not been a drinker for a while and she has a schizoaffective disorder as well and apparently had been on azathioprine because of a background history of Crohn's disease and does have chronic anemia but a very stable hemoglobin but this continued occult blood positivity but last hemoglobin today 8.9 and and improvement over earlier in the week which she was 8.2 and she came in because of acute respiratory failure but in part based on angioneurotic edema presumed to be the lisinopril that she was taking for her of hypertension but she was also given ceftriaxone possibly before hospitalization for his presumed to have been a respiratory infection so a could be either 1 of those 2 issues treated with steroids and fresh frozen plasma in case of C1 esterase deficiency and she was extubated and then again required in it and intubation and in the beginning my theory about the the interstitial infiltrates on her chest x-ray was that she was creating a very large negative inspiratory intrapleural pressure to breathe against the obstruction and might have created a negative pressure pulmonary edema and in addition she has got significant diastolic CHF with pre served ejection fraction which I have documented bedside with multiple echoes and no primary valve or pericardial disease but the combination of atrial fibrillation and severe diastolic dysfunction of the ventricle is part of her dyspnea issue along with her COPD but there is significant question of obstructive sleep apnea so again I recommend the note that she have nocturnal BiPAP and daytime she could be on even room air with her oxygen saturations in the mid 90s she would simply need heart rate control with maintenance digoxin as well as maintenance metoprolol titrated to heart rates been 80-100 which is sufficient at rest no evidence of active Crohn's issues and she is cleared for a nectar thick liquid and puree diet as she is edentulous with no evidence of aspiration and for her schizoaffective disorder she has been doing very well behavioral Roxy very comfortable capable of answering questions etc. she was aggressively diuresed here and is only on spironolactone 25 mg daily and we are replacing her total body potassium deficit which was in induced by the Lasix that had since been discontinued Critical Care Time (minutes): 45 Physical Exam Verdana 4l Vital Signs: Verdana 4d Verdana 4d Vital Signs: Verdana 4d Verdana 4Bd Last Vital Signs Verdana 4d Fishing Hand New 4d Fishing Hand New 4d Temp 100.4 F 12/15/21 12:00 Fishing Hand New 4d Pulse 110 H 12/15/21 12:00 Fishing Hand New 4d Resp 20 12/15/21 12:00 BP 155/66 H 12/15/21 12:00 Pulse Ox 93 12/15/21 12:00 Oxygen Flow Rate 30 12/02/21 00:00 BMI result Body Mass Index 55.1 I watched her an extra 1 or 2 days post extubation because she was using accessory muscles for inspiration mental little diaphragmatic effort and I believe that was still reflecting elevated left heart filling pressure she is no longer doing that at this point peers to be very comfortable and very cooperative with nocturnal BiPAP neurologically intact abdomen benign with no again a megaly no signs of portal hypertension nor of hepatic insufficiency she is on apixaban full 5 mg b.i.d. because of chronic atrial fibrillation chest with without adventitious sounds bedside echo for cardiac shows preserved ejection fraction Objective Data Labs CBC & Chem 7: 12/15/21 05:20 12/15/21 05:20 Labs: Laboratory Results - last 24 hr 12/14/21 12/14/21 12/15/21 16:17 20:30 05:20 WBC 9.7 RBC 4.18 L Hgb 8.9 L Hct 30.6 L MCV 73.2 L MCH 21.3 L MCHC 29.1 L RDW 28.6 H Plt Count 562 H D MPV 9.8 Immature Gran % (Auto) 0.6 H Neut % (Auto) 82.8 H Lymph % (Auto) 7.3 L Churchill % (Auto) 7.8 Eos % (Auto) 1.3 Baso % (Auto) 0.2 Lymph # (Auto) 0.7 L [place] # (Auto) 0.8 Eos # (Auto) 0.1 Baso # (Auto) 0.0 Abs Immat Gran (auto) 0.06 H Absolute Neuts (auto) 8.0 Absolute Nucleated RBC 0.000 Nucleated RBC % (auto) 0.0 PT INR APTT VBG pH VBG pCO2 VBG pO2 VBG HCO3 VBG O2 Saturation VBG Base Excess Sodium Potassium Chloride Carbon Dioxide Anion Gap BUN Creatinine Estim Creat Clear Calc Estimated GFR POC Glucose 72 79 Random Glucose Calcium Phosphorus Magnesium Total Bilirubin Direct Bilirubin AST ALT Alkaline Phosphatase B-Natriuretic Peptide Total Protein Albumin 12/15/21 12/15/21 12/15/21 05:20 05:20 05:20 WBC RBC Hgb Hct MCV MCH MCHC RDW Plt Count MPV Immature Gran % (Auto) Neut % (Auto) Lymph % (Auto) Churchill % (Auto) Eos % (Auto) Baso % (Auto) Lymph # (Auto) Churchill # (Auto) Eos # (Auto) Baso # (Auto) Abs Immat Gran (auto) Absolute Neuts (auto) Absolute Nucleated RBC Nucleated RBC % (auto) PT 24.2 H INR 2.1 H APTT 39.5 H VBG pH VBG pCO2 VBG pO2 VBG HCO3 VBG O2 Saturation VBG Base Excess Sodium 143 Potassium 3.3 Chloride 109 H Carbon Dioxide 26 Anion Gap 11 L BUN 13 Creatinine 0.69 Estim Creat Clear Calc 122.2 Estimated GFR > 60 POC Glucose Random Glucose 78 Calcium 8.1 L Phosphorus 2.4 L Magnesium 2.2 Total Bilirubin 0.7 Direct Bilirubin 0.4 AST 33 H ALT 31 Alkaline Phosphatase 65 B-Natriuretic Peptide 433 H Total Protein 5.2 L Albumin 2.7 L 12/15/21 12/15/21 12/15/21 07:28 09:41 11:24 WBC RBC Hgb Hct MCV MCH MCHC RDW Plt Count MPV Immature Gran % (Auto) Neut % (Auto) Lymph % (Auto) Churchill % (Auto) Eos % (Auto) Baso % (Auto) Lymph # (Auto) Churchill # (Auto) Eos # (Auto) Baso # (Auto) Abs Immat Gran (auto) Absolute Neuts (auto) Absolute Nucleated RBC Nucleated RBC % (auto) PT INR APTT VBG pH 7.44 H VBG pCO2 34 VBG pO2 84 VBG HCO3 23 VBG O2 Saturation 96.0 VBG Base Excess 0.1 Sodium Potassium Chloride Carbon Dioxide Anion Gap BUN Creatinine Estim Creat Clear Calc Estimated GFR POC Glucose 82 86 Random Glucose Calcium Phosphorus Magnesium Total Bilirubin Direct Bilirubin AST ALT Alkaline Phosphatase B-Natriuretic Peptide Total Protein Albumin Microbiology Microbiology Results: Microbiology 12/11/21 19:58 Blood - Venous Blood Culture - Preliminary No growth after 48 hours. 12/11/21 19:58 Blood - Venous Blood Culture - Preliminary No growth after 48 hours. 12/12/21 02:35 Urine Catheterized - Arias Catheter Urine Culture - Final No growth. 12/08/21 15:40 Bronch Lll Gram Stain - Final 12/08/21 15:40 Bronch Lll Routine Culture - Final No growth after 2 days 12/05/21 21:20 Blood - Venous Blood Culture - Final No growth after 5 days. 12/05/21 21:20 Blood - Venous Blood Culture - Final No growth after 5 days. 12/08/21 Unknown Buttock Right Gram Stain - Final 12/08/21 Unknown Buttock Right Routine Culture - Final 12/06/21 20:12 Sputum - Suctioned Gram Stain - Final 12/06/21 20:12 Sputum - Suctioned Sputum Culture - Final 12/06/21 18:16 Urine Catheterized - Arias Catheter Urine Culture - Final No growth. 11/28/21 09:32 Sputum - Suctioned Gram Stain - Final 11/28/21 09:32 Sputum - Suctioned Sputum Culture - Final Kimberly albicans 11/25/21 01:47 Blood - Venous Blood Culture - Final No growth after 5 days. 11/25/21 01:42 Blood - Venous Blood Culture - Final No growth after 5 days. Progress Note: A&P Assessment and plan (1) Diastolic CHF with preserved left ventricular function, NYHA class 2: Status: Acute (2) CHF exacerbation: Status: Acute (3) Fever of unknown origin: Status: Acute (4) Acute encephalopathy: Status: Acute (5) Acute respiratory failure: Status: Acute (6) Schizoaffective disorder: Status: Acute (7) Alcoholic cirrhosis of liver: Status: Acute (8) Angioedema: Status: Acute (9) Acute anaphylaxis: Status: Acute (10) Dyspnea: Status: Acute (11) Hyponatremia: Status: Acute (12) Atrial fibrillation with RVR: Status: Acute (13) Chronic hyponatremia: Status: Acute (14) Acute hyperkalemia: Status: Acute (15) Anemia: Status: Acute (16) Hyponatremia: Status: Acute Plan the anemia has not required any therapy and she has not the been seen by a psychiatry but really has not required any religious of medications for her schizoaffective disorder she needs p.r.n. nebulized bronchodilator therapy and she is on spironolactone and she might need intermittent use of Lasix in conjunction to maintain volume and she will need digoxin and metoprolol combination for heart rate control and were starting with physical therapy to mobilize and swallow is following her on on this an ischial of puree diet hyponatremia has now resolved and she displayed features of probable appropriate ADH related to her combination of underlying cardiac issues and her cirrhosis and that has no longer been inactive problem Quality Stroke Does the patient have a stroke diagnosis?: No VTE Prior VTE?: No VTE Risk Level:: Medical - moderate - high VTE Device Contraindication: Treatment Not Indicated VTE Drug Contraindication: N/A - Med Ordered
[2021-12-15] MEDS: Metoprolol Tartrate 25 MG TABLET PO (12:53)
[2021-12-15] MEDS: Metoprolol Tartrate 5 MG/5 ML VIAL IVPUSH (12:54)
[2021-12-15 16:13] LABS: Glucose, Whole Blood 79 mg/dL (60-115)
[2021-12-15 19:33] LABS: Glucose, Whole Blood 107 mg/dL (60-115)
[2021-12-15] MEDS: Acetaminophen 325 MG TABLET 650 MG PO (20:53)
[2021-12-15] MEDS: Metoprolol Tartrate 25 MG TABLET 75 MG PO (20:53)
[2021-12-16] VITALS (9 sets, daily range): BP systolic 134–167; BP diastolic 65–79; PULSE 101–129; RESP 16–28; TEMP 36.4–37.2; O2SAT 91–95; BMI 55.2
[2021-12-16 06:21] LABS: MANUAL DIFF FLAG NO
[2021-12-16 06:23] LABS: Venous Blood Gas Refer to POC result
[2021-12-16 06:23] LABS: VBG Base Excess 1.8 mmol/L; VBG HCO3 25 mmol/L (22-26); VBG pCO2 36 mmHg; VBG pH 7.45 (7.32-7.43); VBG pO2 53 mmHg
[2021-12-16 06:28] LABS: Basophils Percent Auto 0.4 % (0-2); Eosinophils Absolute Auto 0.1 X10*3/uL (0.0-0.4); Eosinophils Percent Auto 1.4 % (0-4); Hematocrit 32.3 % (37.0-47.0); Hemoglobin 9.4 g/dl (12.0-16.0); Imm Gran Abs Auto 0.08 X10*3/uL (0.00-0.03); Imm Gran Pct Auto 0.8 % (0.0-0.4); Lymphocytes Absolute Auto 0.8 X10*3/uL (1.2-4.9); Mean Corpuscular HGB Conc 29.1 g/dl (31.0-35.0); Mean Corpuscular Hemoglobin 21.1 pg (27.0-33.0); Mean Corpuscular Volume 72.6 fL (80.0-98.0); Mean Platelet Volume 9.6 fL (9.4-12.3); Monocytes Absolute Auto 0.8 X10*3/uL (0.1-1.2); Monocytes Percent Auto 7.6 % (2-11); Neutrophils Absolute Auto 8.3 x10*3/uL (2.0-8.3); Neutrophils Percent Auto 81.8 % (45-73); Platelet Count 671 X10*3/uL (160-400); Red Blood Count 4.45 X10*6/uL (4.20-5.50); Red Cell Distribution Width 29.2 % (11.0-16.0); White Blood Count 10.1 X10*3/uL (4.8-10.8)
[2021-12-16 06:32] LABS: INTERNATIONAL NORM RATIO 2.1 (0.9-1.1); Prothrombin Time 24.2 SEC (9.9-13.0)
[2021-12-16 06:35] LABS: Partial Thromboplastin Time 41.5 SEC (24.1-38.0)
[2021-12-16 06:42] LABS: Alanine Aminotransferase 37 U/L (0-31); Albumin Level 2.9 g/dL (3.5-5.0); Alkaline Phosphatase 70 U/L (39-117); Anion Gap 13 (12-20); Aspartate Amino Transferase 34 U/L (5-31); Bilirubin Direct 0.5 mg/dL (0.0-0.5); Bilirubin Total 0.8 mg/dL (0.0-1.0); Blood Urea Nitrogen 12 mg/dL (9-16); Calcium 8.3 mg/dL (8.4-10.2); Carbon Dioxide 28 mmol/L (22-29); Chloride 110 mmol/L (96-108); Creatinine Clr Calc Pharmacy 122.1; Estimated Glomerular Filt Rate > 60; Glucose Random 118 mg/dL (60-115); Magnesium 2.3 mg/dL (1.6-2.6); Phosphorus 2.5 mg/dL (2.7-4.5); Potassium 3.6 mmol/L (3.3-5.1); Sodium 147 mmol/L (135-145); Total Protein 5.6 g/dL (6.5-8.0)
[2021-12-16 06:45] LABS: B Type Natriuretic Peptide 407 pg/mL (<100)
[2021-12-16 07:17] LABS: Glucose, Whole Blood 117 mg/dL (60-115)
--- NOTE | 2021-12-16 07:49 | P.CONGS_ITS ---
History of Present Illness Consult details Consult date: 12/16/21 Requesting physician: Fidel James Narrative: 66-year-old female patient presenting to the emergency department on 11/24/2021 with multiple medical issues including alcoholic cirrhosis, dementia, will disease, schizoaffective disorder, asthma presenting with palpitations and shortness of breath. Patient was found to be in atrial fibrillation with rapid ventricular response. She has had a prolonged hospital stay requiring ICU care and intubation. Patient was found to have an area of skin necrosis in of the sacrum and coccyx at the midline. surgical consultation is requested for possible debridement of this area of sacral skin necrosis. Patient is currently extubated and on IMC. Patient is on Eliquis for AFib. Review of Systems Verdana 4l Review of Systems: Yes Unobtainable due to mental Verdana 4d condition PMFSH Past Medical History Medical History Alcoholic cirrhosis of liver Anemia Asthma CKD (chronic kidney disease) Crohn's disease Diastolic CHF with preserved left ventricular function, NYHA class 2 Fever of unknown origin Hyponatremia Hyponatremia Schizoaffective disorder Family History Family history: reviewed and not pertinent Surgical History Surgical History No pertinent past surgical history Social History Social History Household Members: None Housing: House Patient Tobacco Use Status: Current everyday Tobacco user service: No Meds Allergies Allergy/AdvReac Type Severity Reaction Status Date / Time lisinopril Allergy Severe Angioedema Verified 12/02/21 16:07 Sulfa (Sulfonamide Allergy Intermediate HIVES Verified 11/24/21 20:49 Antibiotics) Active Medications: Current Medications Acetaminophen (Acetaminophen 325 Mg Tablet) 650 mg PO Q6H PRN PRN Reason: Fever Last Admin: 12/15/21 20:53 Dose: 650 mg Documented by: Apixaban (Apixaban 5 Mg Tablet) 5 mg PO BID [facility] Last Admin: 12/15/21 20:53 Dose: 5 mg Documented by: Atorvastatin Calcium (Atorvastatin Calcium 10 Mg Tablet) 10 mg PO DAILY [facility] Last Admin: 12/15/21 08:24 Dose: 10 mg Documented by: Digoxin (Digoxin 0.25 Mg Tablet) 0.25 mg PO DAILY [facility] Last Admin: 12/15/21 08:23 Dose: 0.25 mg Documented by: Insulin Human Lispro (Insulin Lispro 100 Unit/Ml 3 Ml Vial) 0 unit SUBCUT QIDACHS [facility]; Protocol Last Admin: 12/15/21 21:01 Dose: Not Given Documented by: Metoprolol Tartrate (Metoprolol Tartrate 25 Mg Tablet) 75 mg PO BID [facility]; Protocol Last Admin: 12/15/21 20:53 Dose: 75 mg Documented by: Nystatin (Nystatin Powder 15 Gm Bottle) 1 appl TOPICAL TID [facility]; Protocol Last Admin: 12/15/21 20:57 Dose: 1 appl Documented by: Pharmacy Consult (Consult Rx Perform Med Rec) 1 each MISCELLANE ONCE PRN PRN Reason: Consult order Sodium Chloride (0.9 % Sodium Chloride Flush 3 Ml Syringe) 3 ml IVFLUSH QSHIFT [facility] Last Admin: 12/15/21 20:57 Dose: 3 ml Documented by: Spironolactone (Spironolactone 25 Mg Tablet) 25 mg PO DAILY [facility]; Protocol Last Admin: 12/15/21 08:23 Dose: 25 mg Documented by: Home Medications Medication Instructions Recorded Confirmed Last Taken Type Saccharomyces 250 mg PO BID 11/25/21 11/25/21 11/24/21 History boulardii 250 mg capsule (Florastor) acetaminophen 325 650 mg PO Q4H 11/25/21 11/25/21 11/23/21 History mg tablet PRN albuterol sulfate 2 puff 11/25/21 11/25/21 11/22/21 History 90 mcg/actuation INHALATION Q4H PRN aerosol inhaler (ProAir HFA) aluminum-mag 30 ml PO Q4H PRN 11/25/21 11/25/21 11/16/21 History hydroxide-simethi cone 200 mg-200 mg-20 mg/5 mL oral susp (Morena-Lanta) atorvastatin 10 1 tab PO DAILY 11/25/21 11/25/21 11/24/21 History mg tablet azathioprine 50 2 tab PO DAILY 11/25/21 11/25/21 11/24/21 History mg tablet calcitonin 1 spray 11/25/21 11/25/21 11/24/21 History (salmon) 200 INTRANASAL DAILY unit/actuation nasal spray calcium carbonate 1 tab PO DAILY 11/25/21 11/25/21 11/24/21 History 600 mg-vitamin D3 5 mcg (200 unit) tablet (Calcium 600 + D(3)) cranberry fruit 450 mg PO BID 11/25/21 11/25/21 11/24/21 History 450 mg tablet (cranberry) cyclobenzaprine 1 tab PO Q24H 11/25/21 11/25/21 11/21/21 History 10 mg tablet PRN docusate sodium 100 mg PO BID 11/25/21 11/25/21 11/24/21 History 100 mg tablet dulaglutide 1.5 1.5 mg SUBCUT TU 11/25/21 11/25/21 11/23/21 History mg/0.5 mL subcutaneous pen injector (Trulicity) gabapentin 100 mg 1 cap PO TID 11/25/21 11/25/21 11/24/21 History capsule haloperidol 5 mg 5 mg PO BID 11/25/21 11/25/21 11/24/21 History tablet hydroxyzine HCl 25 mg PO QID 11/25/21 11/25/21 11/24/21 History 25 mg tablet insulin detemir 110 unit SUBCUT 11/25/21 11/25/21 11/24/21 History U-100 100 unit/mL BID@0630,1630 (3 mL) subcutaneous pen insulin regular 1 sliding scale 11/25/21 11/25/21 11/24/21 History human 100 unit/mL dose SUBCUT injection USEASDIRECTD solution (Novolin R Regular U-100 Insulin) ipratropium 20 1 puff 11/25/21 11/25/21 11/24/21 History mcg-albuterol 100 INHALATION BID mcg/actuation mist for inhalation (Combivent Respimat) lanolin 1 appl TOPICAL 11/25/21 11/25/21 Unknown History alcohols-mineral DAILY oil-w.petrolatum- ceresin topical cream (Minerin Creme) lisinopril 5 mg 5 mg PO DAILY 11/25/21 11/25/21 11/24/21 History tablet menthol 5 % 1 patch TOPICAL 11/25/21 11/25/21 Unknown History topical patch DAILY PRN (Bengay Ultra Strength (menthol)) metformin 1,000 1,000 mg PO BID 11/25/21 11/25/21 11/24/21 History mg tablet mirtazapine 15 mg 1 tab PO BEDTIME 11/25/21 11/25/21 11/23/21 History tablet multivitamin 1 tab PO DAILY 11/25/21 11/25/21 11/24/21 History nicotine 7 mg/24 1 patch 11/25/21 11/25/21 Unknown History hr daily TRANSDERMAL Q24H PRN transdermal patch nitrofurantoin 1 cap PO BEDTIME 11/25/21 11/25/21 11/23/21 History macrocrystal 50 mg capsule nitroglycerin 0.4 0.4 mg 11/25/21 11/25/21 Unknown History mg sublingual SUBLINGUAL Q5M PRN tablet nystatin 100,000 1 appl TOPICAL 11/25/21 11/25/21 Unknown History unit/gram topical BID powder omeprazole 20 mg 20 mg PO BID 11/25/21 11/25/21 11/24/21 History tablet,delayed release oxycodone-acetami 1 tab PO QID 11/25/21 11/25/21 11/24/21 History nophen 5 mg-325 mg tablet sennosides 8.6 mg 8.6 mg PO DAILY 11/25/21 11/25/21 11/24/21 History tablet (senna) sennosides 8.6 mg 17.2 mg PO 11/25/21 11/25/21 11/23/21 History tablet (senna) BEDTIME sitagliptin 100 100 mg PO DAILY 11/25/21 11/25/21 11/24/21 History mg tablet (Januvia) sodium chloride 2 spray 11/25/21 11/25/21 11/24/21 History 0.65 % nasal INTRANASAL Q4H spray PRN aerosol (Deep Sea Nasal) sodium chloride 1,000 mg PO TID 11/25/21 11/25/21 11/24/21 History 1,000 mg soluble tablet tolterodine 4 mg 4 mg PO DAILY 11/25/21 11/25/21 11/24/21 History capsule,extended release 24 hr Physical Exam Verdana 4l Vital Signs: Verdana 4d Verdana 4d Vital Signs: Verdana 4d Verdana 4Bd Last Vital Signs Verdana 4d Manager Balance New 4d Manager Balance New 4d Temp 98.9 F 12/16/21 07:09 Manager Balance New 4d Pulse 129 H 12/16/21 07:09 Manager Balance New 4d Resp 25 H 12/16/21 07:09 BP 134/75 12/16/21 07:09 Pulse Ox 93 12/16/21 07:09 Oxygen Flow Rate 30 12/02/21 00:00 BMI result Body Mass Index 55.2 Const: Other: General: ill appearing and patient obtunded Nutritional Appearance: obese Orientation/consciousness: patient obtunded Limitations: altered mental status HENMT: Head: Yes normocephalic and Yes atraumatic Resp: Effort & Inspection: tachypneic Cardio: Rhythm: abnormal rhythm GI: Inspection: Yes Abdominal panniculus present and Yes obesity Palpation (GI): Soft to palpation Back/Spine/Pelvis: Other: Large sacral decubitus with full thickness necrotic skin 15 x 16 cm, lifting at margins, fecal soilage at lower wound. Necrotic skin and subcutaneous tissue excised down to viable tissue, 15 x 16 cm. using scissors and forceps. Wounds covered with pink foam dressing. Viable tissue noted at the wound base. Neuro: General: patient obtunded Extrem: General: Yes pedal edema Results Labs Result diagrams: 12/17/21 04:47 12/17/21 04:48 Labs: Abnormal lab results 12/15/21 12/16/21 12/16/21 Range/Units 09:41 06:09 06:09 Hgb 9.4 L (12.0-16.0) g/dl Hct 32.3 L (37.0-47.0) % MCV 72.6 L (80.0-98.0) fL MCH 21.1 L (27.0-33.0) pg MCHC 29.1 L (31.0-35.0) g/dl RDW 29.2 H (11.0-16.0) % Plt Count 671 H (160-400) X10*3/uL Immature Gran % (Auto) 0.8 H (0.0-0.4) % Neut % (Auto) 81.8 H (45-73) % Lymph % (Auto) 8.0 L (20-40) % Lymph # (Auto) 0.8 L (1.2-4.9) X10*3/uL Abs Immat Gran (auto) 0.08 H (0.00-0.03) X10*3/uL PT 24.2 H (9.9-13.0) SEC INR 2.1 H (0.9-1.1) APTT 41.5 H (24.1-38.0) SEC VBG pH 7.44 H (7.32-7.43) Sodium (135-145) mmol/L Chloride (96-108) mmol/L POC Glucose (60-115) mg/dL Random Glucose (60-115) mg/dL Calcium (8.4-10.2) mg/dL Phosphorus (2.7-4.5) mg/dL AST (5-31) U/L ALT (0-31) U/L B-Natriuretic Peptide (<100) pg/mL Total Protein (6.5-8.0) g/dL Albumin (3.5-5.0) g/dL 12/16/21 12/16/21 12/16/21 Range/Units 06:09 06:09 06:15 Hgb (12.0-16.0) g/dl Hct (37.0-47.0) % MCV (80.0-98.0) fL MCH (27.0-33.0) pg MCHC (31.0-35.0) g/dl RDW (11.0-16.0) % Plt Count (160-400) X10*3/uL Immature Gran % (Auto) (0.0-0.4) % Neut % (Auto) (45-73) % Lymph % (Auto) (20-40) % Lymph # (Auto) (1.2-4.9) X10*3/uL Abs Immat Gran (auto) (0.00-0.03) X10*3/uL PT (9.9-13.0) SEC INR (0.9-1.1) APTT (24.1-38.0) SEC VBG pH 7.45 H (7.32-7.43) Sodium 147 H (135-145) mmol/L Chloride 110 H (96-108) mmol/L POC Glucose (60-115) mg/dL Random Glucose 118 H (60-115) mg/dL Calcium 8.3 L (8.4-10.2) mg/dL Phosphorus 2.5 L (2.7-4.5) mg/dL AST 34 H (5-31) U/L ALT 37 H (0-31) U/L B-Natriuretic Peptide 407 H (<100) pg/mL Total Protein 5.6 L (6.5-8.0) g/dL Albumin 2.9 L (3.5-5.0) g/dL 12/16/21 Range/Units 07:13 Hgb (12.0-16.0) g/dl Hct (37.0-47.0) % MCV (80.0-98.0) fL MCH (27.0-33.0) pg MCHC (31.0-35.0) g/dl RDW (11.0-16.0) % Plt Count (160-400) X10*3/uL Immature Gran % (Auto) (0.0-0.4) % Neut % (Auto) (45-73) % Lymph % (Auto) (20-40) % Lymph # (Auto) (1.2-4.9) X10*3/uL Abs Immat Gran (auto) (0.00-0.03) X10*3/uL PT (9.9-13.0) SEC INR (0.9-1.1) APTT (24.1-38.0) SEC VBG pH (7.32-7.43) Sodium (135-145) mmol/L Chloride (96-108) mmol/L POC Glucose 117 H (60-115) mg/dL Random Glucose (60-115) mg/dL Calcium (8.4-10.2) mg/dL Phosphorus (2.7-4.5) mg/dL AST (5-31) U/L ALT (0-31) U/L B-Natriuretic Peptide (<100) pg/mL Total Protein (6.5-8.0) g/dL Albumin (3.5-5.0) g/dL Short CBC 12/16/21 Range/Units 06:09 WBC 10.1 (4.8-10.8) X10*3/uL Hgb 9.4 L (12.0-16.0) g/dl Hct 32.3 L (37.0-47.0) % Plt Count 671 H (160-400) X10*3/uL BMP 12/16/21 06:09 Sodium 147 H Potassium 3.6 Chloride 110 H Carbon Dioxide 28 BUN 12 Creatinine 0.68 Calcium 8.3 L Liver Function 12/16/21 Range/Units 06:09 Total Bilirubin 0.8 (0.0-1.0) mg/dL Direct Bilirubin 0.5 (0.0-0.5) mg/dL AST 34 H (5-31) U/L ALT 37 H (0-31) U/L Alkaline Phosphatase 70 (39-117) U/L Albumin 2.9 L (3.5-5.0) g/dL Urine 11/25/21 12/06/21 12/11/21 Range/Units 00:40 18:16 01:30 Urine Color DK YELLOW YELLOW YELLOW Urine Appearance HAZY HAZY CLEAR Urine pH 5.5 6.0 6.0 (5.0-8.0) Ur Specific [place] >= 1.030 H 1.015 1.015 (1.005-1.025) Urine Protein 2+ H TRACE NEG (NEG-TRACE) MG/DL Urine Glucose (UA) NEG NEG NEG (NEG) MG/DL All other labs normal. Assessment and Plan (1) Sacral decubitus ulcer: Status: Acute Plan Large sacral decubitus ulcer with necrotic skin and subc, excised at the bedside today. Viable subcut. noted below. Wounds redressed with sponge dressing. Keep all pressure off the wound, roll side to side, air mattress. Change dressings daily and prn. Reevauation with wound care nurse. Procedures Date of Service Date of Service: 12/17/21
--- NOTE | 2021-12-16 07:49 | PM.CNGS ---
History of Present Illness Consult details Consult date: 12/16/21 Requesting physician: Fidel James Narrative: 66-year-old female patient presenting to the emergency department on 11/24/2021 with multiple medical issues including alcoholic cirrhosis, dementia, will disease, schizoaffective disorder, asthma presenting with palpitations and shortness of breath. Patient was found to be in atrial fibrillation with rapid ventricular response. She has had a prolonged hospital stay requiring ICU care and intubation. Patient was found to have an area of skin necrosis in of the sacrum and coccyx at the midline. surgical consultation is requested for possible debridement of this area of sacral skin necrosis. Patient is currently extubated and on IMC. Patient is on Eliquis for AFib. Review of Systems Review of Systems: Yes Unobtainable due to mental condition PMFSH Past Medical History Medical History Alcoholic cirrhosis of liver Anemia Asthma CKD (chronic kidney disease) Crohn's disease Diastolic CHF with preserved left ventricular function, NYHA class 2 Fever of unknown origin Hyponatremia Hyponatremia Schizoaffective disorder Family History Family history: reviewed and not pertinent Surgical History Surgical History No pertinent past surgical history Social History Social History Household Members: None Housing: House Patient Tobacco Use Status: Current everyday Tobacco user service: No Meds Allergies Allergy/AdvReac Type Severity Reaction Status Date / Time lisinopril Allergy Severe Angioedema Verified 12/02/21 16:07 Sulfa (Sulfonamide Allergy Intermediate HIVES Verified 11/24/21 20:49 Antibiotics) Active Medications: Current Medications Acetaminophen (Acetaminophen 325 Mg Tablet) 650 mg PO Q6H PRN PRN Reason: Fever Last Admin: 12/15/21 20:53 Dose: 650 mg Documented by: Apixaban (Apixaban 5 Mg Tablet) 5 mg PO BID [facility] Last Admin: 12/15/21 20:53 Dose: 5 mg Documented by: Atorvastatin Calcium (Atorvastatin Calcium 10 Mg Tablet) 10 mg PO DAILY [facility] Last Admin: 12/15/21 08:24 Dose: 10 mg Documented by: Digoxin (Digoxin 0.25 Mg Tablet) 0.25 mg PO DAILY [facility] Last Admin: 12/15/21 08:23 Dose: 0.25 mg Documented by: Insulin Human Lispro (Insulin Lispro 100 Unit/Ml 3 Ml Vial) 0 unit SUBCUT QIDACHS [facility]; Protocol Last Admin: 12/15/21 21:01 Dose: Not Given Documented by: Metoprolol Tartrate (Metoprolol Tartrate 25 Mg Tablet) 75 mg PO BID [facility]; Protocol Last Admin: 12/15/21 20:53 Dose: 75 mg Documented by: Nystatin (Nystatin Powder 15 Gm Bottle) 1 appl TOPICAL TID [facility]; Protocol Last Admin: 12/15/21 20:57 Dose: 1 appl Documented by: Pharmacy Consult (Consult Rx Perform Med Rec) 1 each MISCELLANE ONCE PRN PRN Reason: Consult order Sodium Chloride (0.9 % Sodium Chloride Flush 3 Ml Syringe) 3 ml IVFLUSH QSHIFT [facility] Last Admin: 12/15/21 20:57 Dose: 3 ml Documented by: Spironolactone (Spironolactone 25 Mg Tablet) 25 mg PO DAILY [facility]; Protocol Last Admin: 12/15/21 08:23 Dose: 25 mg Documented by: Home Medications Medication Instructions Recorded Confirmed Last Taken Type Saccharomyces boulardii 250 mg 250 mg PO BID 11/25/21 11/25/21 11/24/21 History capsule (Florastor) acetaminophen 325 mg tablet 650 mg PO Q4H PRN 11/25/21 11/25/21 11/23/21 History albuterol sulfate 90 mcg/actuation 2 puff INHALATION Q4H PRN 11/25/21 11/25/21 11/22/21 History aerosol inhaler (ProAir HFA) aluminum-mag hydroxide-simethicone 30 ml PO Q4H PRN 11/25/21 11/25/21 11/16/21 History 200 mg-200 mg-20 mg/5 mL oral susp (Morena-Lanta) atorvastatin 10 mg tablet 1 tab PO DAILY 11/25/21 11/25/21 11/24/21 History azathioprine 50 mg tablet 2 tab PO DAILY 11/25/21 11/25/21 11/24/21 History calcitonin (salmon) 200 1 spray INTRANASAL DAILY 11/25/21 11/25/21 11/24/21 History unit/actuation nasal spray calcium carbonate 600 mg-vitamin 1 tab PO DAILY 11/25/21 11/25/21 11/24/21 History D3 5 mcg (200 unit) tablet (Calcium 600 + D(3)) cranberry fruit 450 mg tablet 450 mg PO BID 11/25/21 11/25/21 11/24/21 History (cranberry) cyclobenzaprine 10 mg tablet 1 tab PO Q24H PRN 11/25/21 11/25/21 11/21/21 History docusate sodium 100 mg tablet 100 mg PO BID 11/25/21 11/25/21 11/24/21 History dulaglutide 1.5 mg/0.5 mL 1.5 mg SUBCUT TU 11/25/21 11/25/21 11/23/21 History subcutaneous pen injector (Trulicity) gabapentin 100 mg capsule 1 cap PO TID 11/25/21 11/25/21 11/24/21 History haloperidol 5 mg tablet 5 mg PO BID 11/25/21 11/25/21 11/24/21 History hydroxyzine HCl 25 mg tablet 25 mg PO QID 11/25/21 11/25/21 11/24/21 History insulin detemir U-100 100 unit/mL 110 unit SUBCUT BID@0630,1630 11/25/21 11/25/21 11/24/21 History (3 mL) subcutaneous pen insulin regular human 100 unit/mL 1 sliding scale dose SUBCUT 11/25/21 11/25/21 11/24/21 History injection solution (Novolin R USEASDIRECTD Regular U-100 Insulin) ipratropium 20 mcg-albuterol 100 1 puff INHALATION BID 11/25/21 11/25/21 11/24/21 History mcg/actuation mist for inhalation (Combivent Respimat) lanolin alcohols-mineral 1 appl TOPICAL DAILY 11/25/21 11/25/21 Unknown History oil-w.petrolatum-ceresin topical cream (Minerin Creme) lisinopril 5 mg tablet 5 mg PO DAILY 11/25/21 11/25/21 11/24/21 History menthol 5 % topical patch (Bengay 1 patch TOPICAL DAILY PRN 11/25/21 11/25/21 Unknown History Ultra Strength (menthol)) metformin 1,000 mg tablet 1,000 mg PO BID 11/25/21 11/25/2122 History mirtazapine 15 mg tablet 1 tab PO BEDTIME 11/25/21 11/25/21 11/23/21 History multivitamin 1 tab PO DAILY 11/25/21 11/25/21 11/24/21 History nicotine 7 mg/24 hr daily 1 patch TRANSDERMAL Q24H PRN 11/25/21 11/25/21 Unknown History transdermal patch nitrofurantoin macrocrystal 50 mg 1 cap PO BEDTIME 11/25/21 11/25/21 11/23/21 History capsule nitroglycerin 0.4 mg sublingual 0.4 mg SUBLINGUAL Q5M PRN 11/25/21 11/25/21 Unknown History tablet nystatin 100,000 unit/gram topical 1 appl TOPICAL BID 11/25/21 11/25/21 Unknown History powder omeprazole 20 mg tablet,delayed 20 mg PO BID 11/25/21 11/25/21 11/24/21 History release oxycodone-acetaminophen 5 mg-325 1 tab PO QID 11/25/21 11/25/21 11/24/21 History mg tablet sennosides 8.6 mg tablet (senna) 8.6 mg PO DAILY 11/25/21 11/25/21 11/24/21 History sennosides 8.6 mg tablet (senna) 17.2 mg PO BEDTIME 11/25/21 11/25/21 11/23/21 History sitagliptin 100 mg tablet (Januvia) 100 mg PO DAILY 11/25/21 11/25/21 11/24/21 History sodium chloride 0.65 % nasal spray 2 spray INTRANASAL Q4H PRN 11/25/21 11/25/21 11/24/21 History aerosol (Deep Sea Nasal) sodium chloride 1,000 mg soluble 1,000 mg PO TID 11/25/21 11/25/21 11/24/21 History tablet tolterodine 4 mg capsule,extended 4 mg PO DAILY 11/25/21 11/25/21 11/24/21 History release 24 hr Physical Exam Vital Signs: Vital Signs: Last Vital Signs Temp 98.9 F 12/16/21 07:09 Pulse 129 H 12/16/21 07:09 Resp 25 H 12/16/21 07:09 BP 134/75 12/16/21 07:09 Pulse Ox 93 12/16/21 07:09 Oxygen Flow Rate 30 12/02/21 00:00 BMI result Body Mass Index 55.2 Const: Other: General: ill appearing and patient obtunded Nutritional Appearance: obese Orientation/consciousness: patient obtunded Limitations: altered mental status HENMT: Head: Yes normocephalic and Yes atraumatic Resp: Effort & Inspection: tachypneic Cardio: Rhythm: abnormal rhythm GI: Inspection: Yes Abdominal panniculus present and Yes obesity Palpation (GI): Soft to palpation Back/Spine/Pelvis: Other: Large sacral decubitus with full thickness necrotic skin 15 x 16 cm, lifting at margins, fecal soilage at lower wound. Necrotic skin and subcutaneous tissue excised down to viable tissue, 15 x 16 cm. using scissors and forceps. Wounds covered with pink foam dressing. Viable tissue noted at the wound base. Neuro: General: patient obtunded Extrem: General: Yes pedal edema Results Labs Result diagrams: 12/17/21 04:47 12/17/21 04:48 Labs: Abnormal lab results 12/15/21 12/16/21 12/16/21 Range/Units 09:41 06:09 06:09 Hgb 9.4 L (12.0-16.0) g/dl Hct 32.3 L (37.0-47.0) % MCV 72.6 L (80.0-98.0) fL MCH 21.1 L (27.0-33.0) pg MCHC 29.1 L (31.0-35.0) g/dl RDW 29.2 H (11.0-16.0) % Plt Count 671 H (160-400) X10*3/uL Immature Gran % (Auto) 0.8 H (0.0-0.4) % Neut % (Auto) 81.8 H (45-73) % Lymph % (Auto) 8.0 L (20-40) % Lymph # (Auto) 0.8 L (1.2-4.9) X10*3/uL Abs Immat Gran (auto) 0.08 H (0.00-0.03) X10*3/uL PT 24.2 H (9.9-13.0) SEC INR 2.1 H (0.9-1.1) APTT 41.5 H (24.1-38.0) SEC VBG pH 7.44 H (7.32-7.43) Sodium (135-145) mmol/L Chloride (96-108) mmol/L POC Glucose (60-115) mg/dL Random Glucose (60-115) mg/dL Calcium (8.4-10.2) mg/dL Phosphorus (2.7-4.5) mg/dL AST (5-31) U/L ALT (0-31) U/L B-Natriuretic Peptide (<100) pg/mL Total Protein (6.5-8.0) g/dL Albumin (3.5-5.0) g/dL 12/16/21 12/16/21 12/16/21 Range/Units 06:09 06:09 06:15 Hgb (12.0-16.0) g/dl Hct (37.0-47.0) % MCV (80.0-98.0) fL MCH (27.0-33.0) pg MCHC (31.0-35.0) g/dl RDW (11.0-16.0) % Plt Count (160-400) X10*3/uL Immature Gran % (Auto) (0.0-0.4) % Neut % (Auto) (45-73) % Lymph % (Auto) (20-40) % Lymph # (Auto) (1.2-4.9) X10*3/uL Abs Immat Gran (auto) (0.00-0.03) X10*3/uL PT (9.9-13.0) SEC INR (0.9-1.1) APTT (24.1-38.0) SEC VBG pH 7.45 H (7.32-7.43) Sodium 147 H (135-145) mmol/L Chloride 110 H (96-108) mmol/L POC Glucose (60-115) mg/dL Random Glucose 118 H (60-115) mg/dL Calcium 8.3 L (8.4-10.2) mg/dL Phosphorus 2.5 L (2.7-4.5) mg/dL AST 34 H (5-31) U/L ALT 37 H (0-31) U/L B-Natriuretic Peptide 407 H (<100) pg/mL Total Protein 5.6 L (6.5-8.0) g/dL Albumin 2.9 L (3.5-5.0) g/dL 12/16/21 Range/Units 07:13 Hgb (12.0-16.0) g/dl Hct (37.0-47.0) % MCV (80.0-98.0) fL MCH (27.0-33.0) pg MCHC (31.0-35.0) g/dl RDW (11.0-16.0) % Plt Count (160-400) X10*3/uL Immature Gran % (Auto) (0.0-0.4) % Neut % (Auto) (45-73) % Lymph % (Auto) (20-40) % Lymph # (Auto) (1.2-4.9) X10*3/uL Abs Immat Gran (auto) (0.00-0.03) X10*3/uL PT (9.9-13.0) SEC INR (0.9-1.1) APTT (24.1-38.0) SEC VBG pH (7.32-7.43) Sodium (135-145) mmol/L Chloride (96-108) mmol/L POC Glucose 117 H (60-115) mg/dL Random Glucose (60-115) mg/dL Calcium (8.4-10.2) mg/dL Phosphorus (2.7-4.5) mg/dL AST (5-31) U/L ALT (0-31) U/L B-Natriuretic Peptide (<100) pg/mL Total Protein (6.5-8.0) g/dL Albumin (3.5-5.0) g/dL Short CBC 12/16/21 Range/Units 06:09 WBC 10.1 (4.8-10.8) X10*3/uL Hgb 9.4 L (12.0-16.0) g/dl Hct 32.3 L (37.0-47.0) % Plt Count 671 H (160-400) X10*3/uL BMP 12/16/21 06:09 Sodium 147 H Potassium 3.6 Chloride 110 H Carbon Dioxide 28 BUN 12 Creatinine 0.68 Calcium 8.3 L Liver Function 12/16/21 Range/Units 06:09 Total Bilirubin 0.8 (0.0-1.0) mg/dL Direct Bilirubin 0.5 (0.0-0.5) mg/dL AST 34 H (5-31) U/L ALT 37 H (0-31) U/L Alkaline Phosphatase 70 (39-117) U/L Albumin 2.9 L (3.5-5.0) g/dL Urine 11/25/21 12/06/21 12/11/21 Range/Units 00:40 18:16 01:30 Urine Color DK YELLOW YELLOW YELLOW Urine Appearance HAZY HAZY CLEAR Urine pH 5.5 6.0 6.0 (5.0-8.0) Ur Specific [place] >= 1.030 H 1.015 1.015 (1.005-1.025) Urine Protein 2+ H TRACE NEG (NEG-TRACE) MG/DL Urine Glucose (UA) NEG NEG NEG (NEG) MG/DL All other labs normal. Assessment and Plan (1) Sacral decubitus ulcer: Status: Acute Plan Large sacral decubitus ulcer with necrotic skin and subc, excised at the bedside today. Viable subcut. noted below. Wounds redressed with sponge dressing. Keep all pressure off the wound, roll side to side, air mattress. Change dressings daily and prn. Reevauation with wound care nurse. Procedures Date of Service Date of Service: 12/17/21
[2021-12-16] MEDS: Apixaban 5 MG TABLET PO ×2 (09:37→21:42)
[2021-12-16] MEDS: Metoprolol Tartrate 25 MG TABLET 75 MG PO ×2 (09:37→21:42)
[2021-12-16] MEDS: Digoxin 0.25 MG TABLET PO (09:37)
[2021-12-16] MEDS: Atorvastatin Calcium 10 MG TABLET PO (09:37)
[2021-12-16] MEDS: Spironolactone 25 MG TABLET PO (09:37)
[2021-12-16] MEDS: 0.9 % Sodium Chloride Flush 3 ML SYRINGE IVFLUSH ×3 (09:38→23:04)
--- NOTE | 2021-12-16 10:11 | P.PNIM_ITS ---
Subjective Subjective Date of Service: 12/16/21 Interval History: Seen in f/u for acute hypoxic resp failure d/t angioedema, and exacerbation of COPD, heart failure--Intubated and managed in ICU twice and seems better this time arounds. No respiratory distress. Review of Systems No fever no sob Physical Exam Verdana 4l Vital Signs: Verdana 4d Verdana 4d Vital Signs: Verdana 4d Verdana 4Bd Last Vital Signs Verdana 4d Tele Grout Sewer Line Repairer New 4d Tele Grout Sewer Line Repairer New 4d Temp 98.9 F 12/16/21 07:09 Tele Grout Sewer Line Repairer New 4d Pulse 129 H 12/16/21 07:09 Tele Grout Sewer Line Repairer New 4d Resp 25 H 12/16/21 07:09 BP 134/75 12/16/21 07:09 Pulse Ox 93 12/16/21 07:09 Oxygen Flow Rate 30 12/02/21 00:00 BMI result Body Mass Index 55.2 Const: Other: General: Alert, oriented to self, not in acute distress, morbidly obese Resp: dimished sounds bilaterally CVS: S1,S2, iregular iregular, swelling in the arms, no swelling in legs GI: +BS, NT, no distention Skin: No rash Neuro: motor grossly intact Psych: appropriate affect Objective Data Active Medications Acetaminophen (Acetaminophen 325 Mg Tablet) 650 mg PO Q6H PRN PRN Reason: Fever Last Admin: 12/15/21 20:53 Dose: 650 mg Documented by: KENA Apixaban (Apixaban 5 Mg Tablet) 5 mg PO BID [facility] Last Admin: 12/16/21 09:37 Dose: 5 mg Documented by: JOURDAN Atorvastatin Calcium (Atorvastatin Calcium 10 Mg Tablet) 10 mg PO DAILY [facility] Last Admin: 12/16/21 09:37 Dose: 10 mg Documented by: JOURDAN Digoxin (Digoxin 0.25 Mg Tablet) 0.25 mg PO DAILY [facility] Last Admin: 12/16/21 09:37 Dose: 0.25 mg Documented by: JOURDAN Insulin Human Lispro (Insulin Lispro 100 Unit/Ml 3 Ml Vial) 0 unit SUBCUT QIDACHS [facility]; Protocol Last Admin: 12/16/21 09:38 Dose: Not Given Documented by: JOURDAN Non-Admin Reason: No Insulin Coverage Metoprolol Tartrate (Metoprolol Tartrate 25 Mg Tablet) 75 mg PO BID [facility]; Protocol Last Admin: 12/16/21 09:37 Dose: 75 mg Documented by: JOURDAN Nystatin (Nystatin Powder 15 Gm Bottle) 1 appl TOPICAL TID [facility]; Protocol Last Admin: 12/15/21 20:57 Dose: 1 appl Documented by: KENA Pharmacy Consult (Consult Rx Perform Med Rec) 1 each MISCELLANE ONCE PRN PRN Reason: Consult order Sodium Chloride (0.9 % Sodium Chloride Flush 3 Ml Syringe) 3 ml IVFLUSH QSHIFT [facility] Last Admin: 12/16/21 09:38 Dose: 3 ml Documented by: JOURDAN Spironolactone (Spironolactone 25 Mg Tablet) 25 mg PO DAILY [facility]; Protocol Last Admin: 12/16/21 09:37 Dose: 25 mg Documented by: JOURDAN Labs CBC & Chem 7: 12/16/21 06:09 12/16/21 06:09 Labs: Laboratory Results - last 24 hr 12/15/21 12/15/21 12/15/21 11:24 16:10 19:27 MCV MCH MCHC RDW Plt Count MPV Immature Gran % (Auto) Neut % (Auto) Lymph % (Auto) [place] % (Auto) Eos % (Auto) Baso % (Auto) Lymph # (Auto) [place] # (Auto) Eos # (Auto) Baso # (Auto) Abs Immat Gran (auto) Absolute Neuts (auto) Absolute Nucleated RBC Nucleated RBC % (auto) PT INR APTT VBG pH VBG pCO2 VBG pO2 VBG HCO3 VBG O2 Saturation VBG Base Excess Anion Gap Estim Creat Clear Calc Estimated GFR POC Glucose 86 79 107 Random Glucose Calcium Phosphorus Magnesium Total Bilirubin Direct Bilirubin AST ALT Alkaline Phosphatase B-Natriuretic Peptide Total Protein Albumin 12/16/21 12/16/21 12/16/21 06:09 06:09 06:09 MCV 72.6 L MCH 21.1 L MCHC 29.1 L RDW 29.2 H Plt Count 671 H MPV 9.6 Immature Gran % (Auto) 0.8 H Neut % (Auto) 81.8 H Lymph % (Auto) 8.0 L [place] % (Auto) 7.6 Eos % (Auto) 1.4 Baso % (Auto) 0.4 Lymph # (Auto) 0.8 L [place] # (Auto) 0.8 Eos # (Auto) 0.1 Baso # (Auto) 0.0 Abs Immat Gran (auto) 0.08 H Absolute Neuts (auto) 8.3 Absolute Nucleated RBC 0.000 Nucleated RBC % (auto) 0.0 PT 24.2 H INR 2.1 H APTT 41.5 H VBG pH VBG pCO2 VBG pO2 VBG HCO3 VBG O2 Saturation VBG Base Excess Anion Gap 13 Estim Creat Clear Calc 122.1 Estimated GFR > 60 POC Glucose Random Glucose 118 H Calcium 8.3 L Phosphorus 2.5 L Magnesium 2.3 Total Bilirubin 0.8 Direct Bilirubin 0.5 AST 34 H ALT 37 H Alkaline Phosphatase 70 B-Natriuretic Peptide Total Protein 5.6 L Albumin 2.9 L 12/16/21 12/16/21 12/16/21 06:09 06:15 07:13 MCV MCH MCHC RDW Plt Count MPV Immature Gran % (Auto) Neut % (Auto) Lymph % (Auto) [place] % (Auto) Eos % (Auto) Baso % (Auto) Lymph # (Auto) [place] # (Auto) Eos # (Auto) Baso # (Auto) Abs Immat Gran (auto) Absolute Neuts (auto) Absolute Nucleated RBC Nucleated RBC % (auto) PT INR APTT VBG pH 7.45 H VBG pCO2 36 VBG pO2 53 VBG HCO3 25 VBG O2 Saturation 83.0 VBG Base Excess 1.8 Anion Gap Estim Creat Clear Calc Estimated GFR POC Glucose 117 H Random Glucose Calcium Phosphorus Magnesium Total Bilirubin Direct Bilirubin AST ALT Alkaline Phosphatase B-Natriuretic Peptide 407 H Total Protein Albumin Assessment and Plan (1) Acute encephalopathy: Status: Acute (2) Acute respiratory failure: Status: Acute Plan ? 66-year-old lady with underlying alcoholic cirrhosis, dementia, schizoaffective disorder a admitted with acute? 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 On 12/06 she again developped respiratory failure nearly obtunded with no gag reflex and was transfered yet again to ICU and again was intubated and mechanically ventilated and extubated again and transfer back to [facility] on 12/15 #Acute respiratory failure secondary to angioedema requiring intubation and ventilatory support for airway protection intubated on 11/27,? extubated 11/29/2021, reintubated on 12/06 and extubated 12/13. Respiratory failure of of multifactorial etiology including COPD, possible pneumonia and heart failure. Overall respiratoy failure has improved and presently sating 93 on room air. and Should be using BiPAP at night for underlying obesity hypoventilation at night. # AFib with RVR--variable rate, but overall high.. -She is on Metoprolol 75, and Digoxine, will get cardiology to help. Mechellequis for anticoagoagultion #Chronic diastolic heart failure--she seems compensated, she was on IV diuretic in ICU including Lasix drip, her edema looks better but the record shows that she has only diuresed 160 ml total. Will follow clinically #Hyponatremia--resolved, now hypernatremia.. Sodium 147, will follow closely #HypERnatremia--Monitor #COPD? exacerbated by pneumonia -Bronchodilators, steroid and has completed course of Zosyn and Unassyn for pneumonia, fever resolved #DM II--SSI, off Lantus sugars on low side #. Schizoaffective disorder--She was on Haldol PRN but all meds dc since ICU #Metabolic Alkalosis--Resolved #HLD--Lipitor #leukocytosis--d/t steroid,, resolved #PT eval and plan to dischcarge soon Discussing with ICU Quality Stroke Does the patient have a stroke diagnosis?: No VTE Prior VTE?: No VTE Risk Level:: Medical - moderate - high VTE Device Contraindication: Treatment Not Indicated VTE Drug Contraindication: N/A - Med Ordered
--- NOTE | 2021-12-16 10:36 | MHC.SL.SWA ---
Speech Pathologist Impression: Risk of Aspiration Oralpharyngeal Dysphagia Risk of Aspiration Due to: Poor PO Intake Hx of Recent Extubation Reduced Cognition Dysphasia Diet Status: Downgrade Liquid Consistency and Strategies for Safe Swallow: Liquid Intake Recommendation: Honey Thick Liquid Intake Strategies: Small Sips No Straws Solid Food Consistency: Dietary Recommendations: Pureed (NDD1) Additional Modifications to Solid Foods: Recommend PUREED (NDD1) solids and HONEY THICK liquids, pills CRUSHED in PUREE. Patient requires 1:1 assistance feeding. Recommend strict aspiration precautions and close monitoring during meal. Oral Medication Intake: Crushed with Puree Compensatory Strategies and Precautions to be Taken for Safe Swallow: Sitting Upright (90 deg) No Straw Small Bites and Sips Rate of Ingestion Change Oral Check Supervision While Eating and Drinking for Safe Swallow: Total Assistance Foods to Avoid: Swallowing Recommended Treatments: Compens. Strategy Educat. Recommendation for Speech: Inpatient Speech Therapy Comment: Pt seen this a.m. for re-assessment of swallow. Pt appeared to short of breath, with open mouth breathing evident. Pt did not have cannula at time of assessment. Pt began to answer y/n questions after delay, accepted trial of honey thick liquid by spoon. Pt protruded tongue on presentation of spoon, but then stripped spoon w/ lips. Pt had mild delay of oral phase, mild delay initiating swallow w/incomplete laryngeal elevation on swallow. Pt accepted second presentation w/ similar results. After two tsps, Pt requested that trials stop, continued to mouth breath, effortful breathing. Recommend continue on Diet of HONEY THICK liquids w/PUREED (NDD1) Solids. Pt will need full assist for all meals w/close supervision for signs of aspiration, periodic confirmation of swallow. Pt may need more frequent smaller meals if endurance for eating continues to be limited. TECHNICAL EXPERT will continue to follow. Frequency/Duration: M-F Date Range for Service Req: Timeline to reassess: Gm Clinican/Clinical Fellow: No Supervisory Statement: I have reviewed and agree with the student/clinical fellow's documentation: N/A Speech Language Pathologist: Gayathri Pollard M.A., [facility]-TECHNICAL EXPERT
[2021-12-16 11:02] LABS: Glucose, Whole Blood 223 mg/dL (60-115)
[2021-12-16] MEDS: Insulin Lispro 100 UNIT/ML 3 ML VIAL SUBCUT ×2 (12:10→21:43)
[2021-12-16] MEDS: Nystatin Powder 15 GM BOTTLE 1 APPL TOPICAL ×3 (12:10→22:01)
--- NOTE | 2021-12-16 12:28 | MHC.CLN ---
F/U NOTED ELEVAED SERUM NA TRIAGE ASSISTANT CONTINUES TO RECOMMEND PUREED WITH HT LIQ PT RECEIVING ENSURE BID TO PROVIDE 700KCALS, 40G PROTEIN SUPP TO PROMOTE WOUND HEALING MONITOR PO INTAKE CLOSELY
[2021-12-16 15:49] LABS: Glucose, Whole Blood 182 mg/dL (60-115)
[2021-12-16 20:14] LABS: Glucose, Whole Blood 171 mg/dL (60-115)
[2021-12-16] MEDS: Metoprolol Tartrate 5 MG/5 ML VIAL IVPUSH (23:04)
[2021-12-17] VITALS (9 sets, daily range): BP systolic 140–169; BP diastolic 62–75; PULSE 106–140; RESP 17–32; TEMP 36.1–38.6; O2SAT 87–94; BMI 55.0
--- NOTE | 2021-12-17 04:30 | PM.EVENT ---
Event Note Date of Service: 12/17/21 Event Note: acute respiratory failure: Patient removed her BiPAP, followed by appeared to be in respiratory distress. Placed her on the BiPAP back again with improvement in respiratory rate. Will give 1 dose of morphine for anxiety. Will obtain stat ABG, chest x-ray, proBNP.
[2021-12-17] MEDS: Morphine Sulfate 2 MG/ML CARTRIDGE 1 MG IVPUSH ×2 (04:41→20:42)
[2021-12-17 04:54] LABS: MANUAL DIFF FLAG NO
[2021-12-17 04:56] LABS: Basophils Percent Auto 0.3 % (0-2); Eosinophils Absolute Auto 0.1 X10*3/uL (0.0-0.4); Eosinophils Percent Auto 1.2 % (0-4); Hematocrit 33.5 % (37.0-47.0); Hemoglobin 9.6 g/dl (12.0-16.0); Imm Gran Abs Auto 0.06 X10*3/uL (0.00-0.03); Imm Gran Pct Auto 0.5 % (0.0-0.4); Lymphocytes Absolute Auto 0.9 X10*3/uL (1.2-4.9); Lymphocytes Percent Auto 7.6 % (20-40); Mean Corpuscular HGB Conc 28.7 g/dl (31.0-35.0); Mean Corpuscular Hemoglobin 21.2 pg (27.0-33.0); Mean Platelet Volume 9.2 fL (9.4-12.3); Monocytes Absolute Auto 0.8 X10*3/uL (0.1-1.2); Monocytes Percent Auto 6.4 % (2-11); Neutrophils Absolute Auto 9.9 x10*3/uL (2.0-8.3); Platelet Count 664 X10*3/uL (160-400); Red Blood Count 4.53 X10*6/uL (4.20-5.50); Red Cell Distribution Width 29.8 % (11.0-16.0); White Blood Count 11.8 X10*3/uL (4.8-10.8)
[2021-12-17 04:58] LABS: Venous Blood Gas Refer to POC result
[2021-12-17 04:58] LABS: VBG Base Excess 4.4 mmol/L; VBG HCO3 28 mmol/L (22-26); VBG pCO2 37 mmHg; VBG pH 7.48 (7.32-7.43); VBG pO2 53 mmHg
--- NOTE | 2021-12-17 04:59 | MHC.PIE ---
P: she consented to wear the bipap rather late in the night, and I went to check on her at about 4 am, and her respiratory rate was 45-50 RPM. She looked uncomfortable, we took off the bipap. Now, at 4 am, with Bipap off, her respiratory rate is 32. She is satting 92% on room air, and we added continuous oxygen sat monitoring. She looks like she cannot breathe in deeply though, and is tachypneic. She hasn't really been able to breathe in deeply all night. She denies discomfort. I wondered if maybe she needs a CXR or blood gasses? She has lung sounds bilaterally, but they are very diminished throughout, and sounds like maybe even a pleural friction rub on right side. Bipap was on from 00:00 until 04:00 per RT. settings at 04:00 IPAP 10; EPAP 5; FiO2 21%; I: contacted RT; removed Bipap; continuous sat monitor added, 92% on room air, with RR 32, and accessory muscle use/guppy-breathing. Notified Dr. House, as well as nursing lasting room supervisor, as well as ICU E: ordered stat ABG, BMP, 1 mg IV morphine; may use Bipap if respiratory distress continues; Report given to CYNDI Maria.
[2021-12-17 05:01] LABS: INTERNATIONAL NORM RATIO 2.4 (0.9-1.1); Prothrombin Time 27.6 SEC (9.9-13.0)
[2021-12-17 05:04] LABS: ABG Base Excess 6.4 mmol/L; ABG HCO3 29 mmol/L (22-26); ABG pCO2 38 mmHg (32-45); ABG pH 7.49 (7.35-7.45); ABG pO2 63 mmHg (83-108)
[2021-12-17 05:04] LABS: Partial Thromboplastin Time 44.9 SEC (24.1-38.0)
[2021-12-17 05:24] LABS: B Type Natriuretic Peptide 376 pg/mL (<100)
[2021-12-17 05:26] LABS: Alanine Aminotransferase 34 U/L (0-31); Albumin Level 2.9 g/dL (3.5-5.0); Alkaline Phosphatase 69 U/L (39-117); Anion Gap 13 (12-20); Aspartate Amino Transferase 31 U/L (5-31); Bilirubin Direct 0.4 mg/dL (0.0-0.5); Bilirubin Total 0.7 mg/dL (0.0-1.0); Blood Urea Nitrogen 9 mg/dL (9-16); Calcium 8.2 mg/dL (8.4-10.2); Carbon Dioxide 28 mmol/L (22-29); Chloride 113 mmol/L (96-108); Creatinine Clr Calc Pharmacy 125.7; Estimated Glomerular Filt Rate > 60; Glucose Random 185 mg/dL (60-115); Magnesium 2.2 mg/dL (1.6-2.6); Phosphorus 2.4 mg/dL (2.7-4.5); Potassium 3.8 mmol/L (3.3-5.1); Sodium 150 mmol/L (135-145); Total Protein 5.7 g/dL (6.5-8.0)
[2021-12-17 06:02] LABS: ABG Refer to POC result
[2021-12-17] MEDS: Metoprolol Tartrate 5 MG/5 ML VIAL IVPUSH (06:10)
[2021-12-17 07:31] LABS: Glucose, Whole Blood 178 mg/dL (60-115)
--- NOTE | 2021-12-17 07:39 | PC.NURSE ---
Patients heart elevated to 130's with rapid shallow breathing. MD made aware- 5 mg of Metorpolol ordered and given.
[2021-12-17] MEDS: Atorvastatin Calcium 10 MG TABLET PO (07:56)
[2021-12-17] MEDS: Insulin Lispro 100 UNIT/ML 3 ML VIAL SUBCUT ×4 (07:56→20:26)
[2021-12-17] MEDS: Metoprolol Tartrate 25 MG TABLET 75 MG PO ×2 (07:56→20:26)
[2021-12-17] MEDS: Digoxin 0.25 MG TABLET PO (07:56)
[2021-12-17] MEDS: Spironolactone 25 MG TABLET PO (07:56)
[2021-12-17] MEDS: 0.9 % Sodium Chloride Flush 3 ML SYRINGE IVFLUSH ×2 (07:56→20:27)
[2021-12-17] MEDS: Apixaban 5 MG TABLET PO ×2 (07:56→20:26)
[2021-12-17] MEDS: Nystatin Powder 15 GM BOTTLE 1 APPL TOPICAL ×3 (07:57→20:27)
--- NOTE | 2021-12-17 09:49 | P.PNIM_ITS ---
Subjective Subjective Date of Service: 12/18/21 Interval History: Seen in f/u for acute hypoxic resp failure d/t angioedema, and exacerbation of COPD, heart failure--Intubated and managed in ICU twice and seems better this time arounds. No respiratory distress. Review of Systems No fever no sob Physical Exam Verdana 4l Vital Signs: Verdana 4d Verdana 4d Vital Signs: Verdana 4d Verdana 4Bd Last Vital Signs Verdana 4d Chemistry Quality Control Analyst New 4d Chemistry Quality Control Analyst New 4d Temp 96.9 F 12/17/21 07:49 Chemistry Quality Control Analyst New 4d Pulse 131 H 12/17/21 07:49 Chemistry Quality Control Analyst New 4d Resp 20 12/17/21 07:49 BP 153/75 H 12/17/21 07:49 Pulse Ox 92 12/17/21 07:49 Oxygen Flow Rate 30 12/02/21 00:00 BMI result Body Mass Index 55.0 Const: Other: General: AO X 3, no acute distress Resp: CTA bilateral CVS: S1,S2,RRR GI: +BS, NT, no distention Skin: No rash, decub ulcer as in the picture Neuro: motor grossly intact Psych: appropriate affect Objective Data Active Medications Acetaminophen (Acetaminophen 325 Mg Tablet) 650 mg PO Q6H PRN PRN Reason: Fever Last Admin: 12/15/21 20:53 Dose: 650 mg Documented by: KENA Apixaban (Apixaban 5 Mg Tablet) 5 mg PO BID [facility] Last Admin: 12/17/21 07:56 Dose: 5 mg Documented by: DEBBIE Atorvastatin Calcium (Atorvastatin Calcium 10 Mg Tablet) 10 mg PO DAILY [facility] Last Admin: 12/17/21 07:56 Dose: 10 mg Documented by: DEBBIE Digoxin (Digoxin 0.25 Mg Tablet) 0.25 mg PO DAILY [facility] Last Admin: 12/17/21 07:56 Dose: 0.25 mg Documented by: DEBBIE Insulin Human Lispro (Insulin Lispro 100 Unit/Ml 3 Ml Vial) 0 unit SUBCUT QIDACHS [facility]; Protocol Last Admin: 12/17/21 07:56 Dose: 4 unit Documented by: DEBBIE Metoprolol Tartrate (Metoprolol Tartrate 25 Mg Tablet) 75 mg PO BID [facility]; Protocol Last Admin: 12/17/21 07:56 Dose: 75 mg Documented by: DEBBIE Morphine Sulfate (Morphine Sulfate 2 Mg/Ml Cartridge) 1 mg IVPUSH Q4H PRN; Protocol PRN Reason: pain/SOB Last Admin: 12/17/21 04:41 Dose: 1 mg Documented by: KATHI Nystatin (Nystatin Powder 15 Gm Bottle) 1 appl TOPICAL TID [facility]; Protocol Last Admin: 12/17/21 07:57 Dose: 1 appl Documented by: DEBBIE Pharmacy Consult (Consult Rx Perform Med Rec) 1 each MISCELLANE ONCE PRN PRN Reason: Consult order Sodium Chloride (0.9 % Sodium Chloride Flush 3 Ml Syringe) 3 ml IVFLUSH QSHIFT [facility] Last Admin: 12/17/21 07:56 Dose: 3 ml Documented by: DEBBIE Spironolactone (Spironolactone 25 Mg Tablet) 25 mg PO DAILY [facility]; Protocol Last Admin: 12/17/21 07:56 Dose: 25 mg Documented by: DEBBIE Labs CBC & Chem 7: 12/18/21 05:58 12/18/21 05:58 Labs: Laboratory Results - last 24 hr 12/16/21 12/16/21 12/16/21 10:58 15:45 20:11 MCV MCH MCHC RDW Plt Count MPV Immature Gran % (Auto) Neut % (Auto) Lymph % (Auto) [place] % (Auto) Eos % (Auto) Baso % (Auto) Lymph # (Auto) [place] # (Auto) Eos # (Auto) Baso # (Auto) Abs Immat Gran (auto) Absolute Neuts (auto) Absolute Nucleated RBC Nucleated RBC % (auto) PT INR APTT O2 Saturation ABG pH at Pt Temp ABG pCO2 at Pt Temp ABG pO2 at Pt Temp ABG HCO3 ABG Base Excess (Actual) VBG pH VBG pCO2 VBG pO2 VBG HCO3 VBG O2 Saturation VBG Base Excess Anion Gap Estim Creat Clear Calc Estimated GFR POC Glucose 223 H 182 H 171 H Random Glucose Calcium Phosphorus Magnesium Total Bilirubin Direct Bilirubin AST ALT Alkaline Phosphatase B-Natriuretic Peptide Total Protein Albumin 12/17/21 12/17/21 12/17/21 04:47 04:47 04:47 MCV 74.0 L MCH 21.2 L MCHC 28.7 L RDW 29.8 H Plt Count 664 H MPV 9.2 L Immature Gran % (Auto) 0.5 H Neut % (Auto) 84.0 H Lymph % (Auto) 7.6 L [place] % (Auto) 6.4 Eos % (Auto) 1.2 Baso % (Auto) 0.3 Lymph # (Auto) 0.9 L [place] # (Auto) 0.8 Eos # (Auto) 0.1 Baso # (Auto) 0.0 Abs Immat Gran (auto) 0.06 H Absolute Neuts (auto) 9.9 H Absolute Nucleated RBC 0.000 Nucleated RBC % (auto) 0.0 PT 27.6 H INR 2.4 H APTT 44.9 H O2 Saturation ABG pH at Pt Temp ABG pCO2 at Pt Temp ABG pO2 at Pt Temp ABG HCO3 ABG Base Excess (Actual) VBG pH VBG pCO2 VBG pO2 VBG HCO3 VBG O2 Saturation VBG Base Excess Anion Gap Cancelled Estim Creat Clear Calc Cancelled Estimated GFR Cancelled POC Glucose Random Glucose Cancelled Calcium Cancelled Phosphorus Magnesium Total Bilirubin Direct Bilirubin AST ALT Alkaline Phosphatase B-Natriuretic Peptide Total Protein Albumin 12/17/21 12/17/21 12/17/21 04:47 04:48 04:52 MCV MCH MCHC RDW Plt Count MPV Immature Gran % (Auto) Neut % (Auto) Lymph % (Auto) [place] % (Auto) Eos % (Auto) Baso % (Auto) Lymph # (Auto) [place] # (Auto) Eos # (Auto) Baso # (Auto) Abs Immat Gran (auto) Absolute Neuts (auto) Absolute Nucleated RBC Nucleated RBC % (auto) PT INR APTT O2 Saturation ABG pH at Pt Temp ABG pCO2 at Pt Temp ABG pO2 at Pt Temp ABG HCO3 ABG Base Excess (Actual) VBG pH 7.48 H VBG pCO2 37 VBG pO2 53 VBG HCO3 28 H VBG O2 Saturation 83.0 VBG Base Excess 4.4 Anion Gap 13 Estim Creat Clear Calc 125.7 Estimated GFR > 60 POC Glucose Random Glucose 185 H Calcium 8.2 L Phosphorus 2.4 L Magnesium 2.2 Total Bilirubin 0.7 Direct Bilirubin 0.4 AST 31 ALT 34 H Alkaline Phosphatase 69 B-Natriuretic Peptide 376 H Total Protein 5.7 L Albumin 2.9 L 12/17/21 12/17/21 04:57 07:16 MCV MCH MCHC RDW Plt Count MPV Immature Gran % (Auto) Neut % (Auto) Lymph % (Auto) [place] % (Auto) Eos % (Auto) Baso % (Auto) Lymph # (Auto) [place] # (Auto) Eos # (Auto) Baso # (Auto) Abs Immat Gran (auto) Absolute Neuts (auto) Absolute Nucleated RBC Nucleated RBC % (auto) PT INR APTT O2 Saturation 90.0 ABG pH at Pt Temp 7.49 H ABG pCO2 at Pt Temp 38 ABG pO2 at Pt Temp 63 L ABG HCO3 29 H ABG Base Excess (Actual) 6.4 VBG pH VBG pCO2 VBG pO2 VBG HCO3 VBG O2 Saturation VBG Base Excess Anion Gap Estim Creat Clear Calc Estimated GFR POC Glucose 178 H Random Glucose Calcium Phosphorus Magnesium Total Bilirubin Direct Bilirubin AST ALT Alkaline Phosphatase B-Natriuretic Peptide Total Protein Albumin Microbiology Microbiology Results: Microbiology 12/11/21 19:58 Blood Culture - Final Blood - Venous No growth after 5 days. 12/11/21 19:58 Blood Culture - Final Blood - Venous No growth after 5 days. Assessment and Plan (1) Acute encephalopathy: Status: Acute (2) Acute respiratory failure: Status: Acute Plan ? 66-year-old lady with underlying alcoholic cirrhosis, dementia, schizoaffective disorder a admitted with acute? 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 On 12/06 she again developped respiratory failure nearly obtunded with no gag reflex and was transfered yet again to ICU and again was intubated and mechanically ventilated and extubated again and transfer back to medical floor on 12/15 #Acute respiratory failure secondary to angioedema requiring intubation and ventilatory support for airway protection intubated on 11/27,? extubated 11/29/2021, reintubated on 12/06 and extubated 12/13. Respiratory failure of of multifactorial etiology including COPD, possible pneumonia and heart failure. Overall respiratoy failure has improved and presently sating 93 on room air. and Should be using BiPAP at night for underlying obesity hypoventilation at night. # AFib with RVR--variable rate, but overall high.. -Increase Metoprolol 100 bid, and Digoxin, will get cardiology to help. Elizaneis for anticoagoagultion #Chronic diastolic heart failure--she seems compensated, she was on IV diuretic in ICU including Lasix drip, her edema looks better but the record shows that she has only diuresed 160 ml total. Will follow clinically-- #Hyponatremia--resolved, now hypernatremia.. Sodium 147, will follow closely #HypERnatremia--sodium is trending up again, 150 now will get Nephrology involved again #COPD? exacerbated by pneumonia -Bronchodilators, steroid and has completed course of Zosyn and Unassyn for pneumonia, fever resolved #DM II--SSI, off Lantus sugars on low side #. Schizoaffective disorder--She was on Haldol PRN but all meds dc since ICU #Metabolic Alkalosis--Resolved #HLD--Lipitor #leukocytosis--d/t steroid,, resolved #PT eval and plan to dischcarge soon #Decub ulcer as noted in picture and evaluated by surgery with the following remarks:Large sacral decubitus ulcer with necrotic skin and subc, excised at the bedside today.? Viable subcut. noted below.? Wounds redressed with sponge dressing.? Keep all pressure off the wound, roll side to side, air mattress.? Change dressings daily and prn.? Reevauation with wound care nurse--Dr. Jiménez Quality Stroke Does the patient have a stroke diagnosis?: No VTE Prior VTE?: No VTE Risk Level:: Medical - moderate - high VTE Device Contraindication: Treatment Not Indicated VTE Drug Contraindication: N/A - Med Ordered
[2021-12-17 11:00] LABS: Glucose, Whole Blood 274 mg/dL (60-115)
--- NOTE | 2021-12-17 12:38 | MHC.SLORD ---
Speech Language Pathology Order Status: reduced awareness and interest in PO since admission but continues to tolerate current diet. We will DC at this time with plan to re-refer if changes occur.
--- NOTE | 2021-12-17 14:19 | MHC.CLN ---
F/U PO INTAKE VERY POOR DISCUSSED WITH NSG -ATE HER BREAKFAST BUT DIDN'T WANT LUNCH NOTED SERUM NA DIET RX: PUREED WITH HT LIQ-APPROPRIATE ENSURE BID IN PLACE PROVIDES 700KCALS, 40G PROTEIN BUT PT NOT ACCEPTING VERY MUCH PO AT THIS TIME NEPHRO CONSULTED PER STRICT PO MONITORING
--- NOTE | 2021-12-17 14:22 | P.PNNP_ITS ---
Subjective Subjective Date of Service: 12/17/21 Principal diagnosis: dysnatremia, hypervol Interval history: Seen in f/u for Hypernatremia Reconsulted Has h/o heart failure--Intubated and managed in ICU twice and seems better this time arounds. Mild respiratory distress. Physical Exam Verdana 4l Vital Signs: Verdana 4d Verdana 4d Vital Signs: Verdana 4d Verdana 4Bd Last Vital Signs Verdana 4d Gas Engine Repairer New 4d Gas Engine Repairer New 4d Temp 97.8 F 12/17/21 11:44 Gas Engine Repairer New 4d Pulse 106 H 12/17/21 11:44 Gas Engine Repairer New 4d Resp 20 12/17/21 11:44 BP 157/73 H 12/17/21 11:44 Pulse Ox 87 L 12/17/21 11:44 Oxygen Flow Rate 30 12/02/21 00:00 BMI result Body Mass Index 55.0 General: AO X 3, no acute distress Resp:? CTA bilateral CVS: S1,S2,RRR GI: +BS, NT, no distention Skin: No rash, decub ulcer as in the picture Neuro:? motor grossly intact Psych: appropriate affect Objective Data Labs CBC & Chem 7: 12/17/21 04:47 12/17/21 04:48 Labs: Laboratory Results - last 24 hr 12/16/21 12/16/21 12/17/21 15:45 20:11 04:47 WBC 11.8 H RBC 4.53 Hgb 9.6 L Hct 33.5 L MCV 74.0 L MCH 21.2 L MCHC 28.7 L RDW 29.8 H Plt Count 664 H MPV 9.2 L Immature Gran % (Auto) 0.5 H Neut % (Auto) 84.0 H Lymph % (Auto) 7.6 L [place] % (Auto) 6.4 Eos % (Auto) 1.2 Baso % (Auto) 0.3 Lymph # (Auto) 0.9 L [place] # (Auto) 0.8 Eos # (Auto) 0.1 Baso # (Auto) 0.0 Abs Immat Gran (auto) 0.06 H Absolute Neuts (auto) 9.9 H Absolute Nucleated RBC 0.000 Nucleated RBC % (auto) 0.0 PT INR APTT O2 Saturation ABG pH at Pt Temp ABG pCO2 at Pt Temp ABG pO2 at Pt Temp ABG HCO3 ABG Base Excess (Actual) VBG pH VBG pCO2 VBG pO2 VBG HCO3 VBG O2 Saturation VBG Base Excess Sodium Potassium Chloride Carbon Dioxide Anion Gap BUN Creatinine Estim Creat Clear Calc Estimated GFR POC Glucose 182 H 171 H Random Glucose Calcium Phosphorus Magnesium Total Bilirubin Direct Bilirubin AST ALT Alkaline Phosphatase B-Natriuretic Peptide Total Protein Albumin 12/17/21 12/17/21 12/17/21 04:47 04:47 04:47 WBC RBC Hgb Hct MCV MCH MCHC RDW Plt Count MPV Immature Gran % (Auto) Neut % (Auto) Lymph % (Auto) [place] % (Auto) Eos % (Auto) Baso % (Auto) Lymph # (Auto) [place] # (Auto) Eos # (Auto) Baso # (Auto) Abs Immat Gran (auto) Absolute Neuts (auto) Absolute Nucleated RBC Nucleated RBC % (auto) PT 27.6 H INR 2.4 H APTT 44.9 H O2 Saturation ABG pH at Pt Temp ABG pCO2 at Pt Temp ABG pO2 at Pt Temp ABG HCO3 ABG Base Excess (Actual) VBG pH VBG pCO2 VBG pO2 VBG HCO3 VBG O2 Saturation VBG Base Excess Sodium Cancelled Potassium Cancelled Chloride Cancelled Carbon Dioxide Cancelled Anion Gap Cancelled BUN Cancelled Creatinine Cancelled Estim Creat Clear Calc Cancelled Estimated GFR Cancelled POC Glucose Random Glucose Cancelled Calcium Cancelled Phosphorus Magnesium Total Bilirubin Direct Bilirubin AST ALT Alkaline Phosphatase B-Natriuretic Peptide 376 H Total Protein Albumin 12/17/21 12/17/21 12/17/21 04:48 04:52 04:57 WBC RBC Hgb Hct MCV MCH MCHC RDW Plt Count MPV Immature Gran % (Auto) Neut % (Auto) Lymph % (Auto) [place] % (Auto) Eos % (Auto) Baso % (Auto) Lymph # (Auto) [place] # (Auto) Eos # (Auto) Baso # (Auto) Abs Immat Gran (auto) Absolute Neuts (auto) Absolute Nucleated RBC Nucleated RBC % (auto) PT INR APTT O2 Saturation 90.0 ABG pH at Pt Temp 7.49 H ABG pCO2 at Pt Temp 38 ABG pO2 at Pt Temp 63 L ABG HCO3 29 H ABG Base Excess (Actual) 6.4 VBG pH 7.48 H VBG pCO2 37 VBG pO2 53 VBG HCO3 28 H VBG O2 Saturation 83.0 VBG Base Excess 4.4 Sodium 150 H Potassium 3.8 Chloride 113 H Carbon Dioxide 28 Anion Gap 13 BUN 9 Creatinine 0.66 Estim Creat Clear Calc 125.7 Estimated GFR > 60 POC Glucose Random Glucose 185 H Calcium 8.2 L Phosphorus 2.4 L Magnesium 2.2 Total Bilirubin 0.7 Direct Bilirubin 0.4 AST 31 ALT 34 H Alkaline Phosphatase 69 B-Natriuretic Peptide Total Protein 5.7 L Albumin 2.9 L 12/17/21 12/17/21 07:16 10:47 WBC RBC Hgb Hct MCV MCH MCHC RDW Plt Count MPV Immature Gran % (Auto) Neut % (Auto) Lymph % (Auto) [place] % (Auto) Eos % (Auto) Baso % (Auto) Lymph # (Auto) [place] # (Auto) Eos # (Auto) Baso # (Auto) Abs Immat Gran (auto) Absolute Neuts (auto) Absolute Nucleated RBC Nucleated RBC % (auto) PT INR APTT O2 Saturation ABG pH at Pt Temp ABG pCO2 at Pt Temp ABG pO2 at Pt Temp ABG HCO3 ABG Base Excess (Actual) VBG pH VBG pCO2 VBG pO2 VBG HCO3 VBG O2 Saturation VBG Base Excess Sodium Potassium Chloride Carbon Dioxide Anion Gap BUN Creatinine Estim Creat Clear Calc Estimated GFR POC Glucose 178 H 274 H Random Glucose Calcium Phosphorus Magnesium Total Bilirubin Direct Bilirubin AST ALT Alkaline Phosphatase B-Natriuretic Peptide Total Protein Albumin Microbiology Microbiology Results: Microbiology 12/11/21 19:58 Blood - Venous Blood Culture - Final No growth after 5 days. 12/11/21 19:58 Blood - Venous Blood Culture - Final No growth after 5 days. 12/12/21 02:35 Urine Catheterized - Arias Catheter Urine Culture - Final No growth. 12/08/21 15:40 Bronch Lll Gram Stain - Final 12/08/21 15:40 Bronch Lll Routine Culture - Final No growth after 2 days 12/05/21 21:20 Blood - Venous Blood Culture - Final No growth after 5 days. 12/05/21 21:20 Blood - Venous Blood Culture - Final No growth after 5 days. 12/08/21 Unknown Buttock Right Gram Stain - Final 12/08/21 Unknown Buttock Right Routine Culture - Final 12/06/21 20:12 Sputum - Suctioned Gram Stain - Final 12/06/21 20:12 Sputum - Suctioned Sputum Culture - Final 12/06/21 18:16 Urine Catheterized - Arias Catheter Urine Culture - Final No growth. 11/28/21 09:32 Sputum - Suctioned Gram Stain - Final 11/28/21 09:32 Sputum - Suctioned Sputum Culture - Final Kimberly albicans 11/25/21 01:47 Blood - Venous Blood Culture - Final No growth after 5 days. 11/25/21 01:42 Blood - Venous Blood Culture - Final No growth after 5 days. Procedures Date of Service Date of Service: 12/17/21 Assessment & Plan Assessment and plan (1) CKD (chronic kidney disease): Status: Acute Assessment and Plan: 66-year-old female with past medical history of alcoholic liver cirrhosis, dementia, hyponatremia presents to the hospital with AFib with RVR Recurrent H- Free water deficit + Loop diuretic use yperNa 150 ml of D5W Check Na in AM (2) Schizoaffective disorder: Status: Acute Time Spent With Patient Time: Total time spent is greater than 50% in coordination of care (as documented) at patient's floor/unit and/or counseling patient: Progress Note: Quality Stroke Does the patient have a stroke diagnosis?: No
[2021-12-17] MEDS: Dextrose 5 % and 0.45 % NaCl 1,000 ML 150 ML IVCONT (15:19)
--- NOTE | 2021-12-17 16:13 | MHC.CM.PN ---
pt tachardic cardiolgy adjusting meds
[2021-12-17 16:28] LABS: Glucose, Whole Blood 171 mg/dL (60-115)
[2021-12-17 20:07] LABS: Glucose, Whole Blood 197 mg/dL (60-115)
[2021-12-17] MEDS: Acetaminophen 325 MG TABLET 650 MG PO (21:00)
[2021-12-18] VITALS (15 sets, daily range): BP systolic 127–136; BP diastolic 59–77; PULSE 105–133; RESP 18–45; TEMP 36.6–37.7; O2SAT 89–97; BMI 54.7
--- NOTE | 2021-12-18 00:02 | PM.EVENT ---
Event Note Date of Service: 12/18/21 Event Note: SOB: Patient became acutely short of breath, with the respiratory rate in 30s; patient has been on IV fluids for hyponatremia. Chest x-ray showed pulmonary congestion. Ordered Lasix x1. Given morphine x1. Respiratory rate improved. Held IV fluids. Update: Resp Failure: after 2.5hours from the time the Lasix was given patient put out like 800cc of fluid. on BiPAP patient respiratory rate was 40s. given 0.5 inch nitro patch, extra dose of morphine. spoke to circulator Dr. Zee-> who suggested to change the settings on the BiPAP to 15/8, given extra [address] Zee's project manager/team coach came to assess the patient. 1/2hour after setting changes in BiPAP machine patient respiratory rate was 38. VBG pending. patient put out another 200 cc of urine-totaling 1000 cc from midnight to 03:30AM. spoke to Dr. Zee followed by, continue current management
[2021-12-18] MEDS: Furosemide 20 MG/2 ML VIAL IVPUSH ×2 (00:18→03:08)
[2021-12-18] MEDS: Morphine Sulfate 2 MG/ML CARTRIDGE 1 MG IVPUSH ×2 (00:19→03:25)
[2021-12-18 00:43] LABS: Anion Gap 10 (12-20); Blood Urea Nitrogen 8 mg/dL (9-16); Calcium 8.3 mg/dL (8.4-10.2); Carbon Dioxide 31 mmol/L (22-29); Chloride 114 mmol/L (96-108); Creatinine Clr Calc Pharmacy 127.3; Estimated Glomerular Filt Rate > 60; Glucose Random 168 mg/dL (60-115); Potassium 3.6 mmol/L (3.3-5.1); Sodium 151 mmol/L (135-145)
[2021-12-18] MEDS: Nitroglycerin 2 % Oint 1 GM Packet 0.5 INCH TRANSDERMA (02:44)
[2021-12-18 04:04] LABS: Venous Blood Gas Refer to POC result
[2021-12-18 04:05] LABS: VBG Base Excess 9.6 mmol/L; VBG HCO3 34 mmol/L (22-26); VBG pCO2 47 mmHg; VBG pH 7.46 (7.32-7.43); VBG pO2 50 mmHg
[2021-12-18 04:53] LABS: Venous Blood Gas Refer to POC result
[2021-12-18 04:53] LABS: VBG Base Excess 11.4 mmol/L; VBG HCO3 37 mmol/L (22-26); VBG pCO2 55 mmHg; VBG pH 7.43 (7.32-7.43); VBG pO2 53 mmHg
[2021-12-18 05:09] LABS: Anion Gap 12 (12-20); Blood Urea Nitrogen 9 mg/dL (9-16); Calcium 8.2 mg/dL (8.4-10.2); Carbon Dioxide 33 mmol/L (22-29); Chloride 111 mmol/L (96-108); Creatinine Clr Calc Pharmacy 119.9; Estimated Glomerular Filt Rate > 60; Glucose Random 198 mg/dL (60-115); Potassium 3.6 mmol/L (3.3-5.1); Sodium 152 mmol/L (135-145)
[2021-12-18 06:07] LABS: MANUAL DIFF FLAG NO
[2021-12-18 06:09] LABS: Venous Blood Gas Refer to POC result
[2021-12-18 06:10] LABS: VBG Base Excess 12.2 mmol/L; VBG HCO3 38 mmol/L (22-26); VBG pCO2 54 mmHg; VBG pH 7.45 (7.32-7.43); VBG pO2 71 mmHg
[2021-12-18 06:12] LABS: Basophils Absolute Auto 0.1 X10*3/uL (0.0-0.2); Basophils Percent Auto 0.6 % (0-2); Eosinophils Absolute Auto 0.2 X10*3/uL (0.0-0.4); Eosinophils Percent Auto 1.7 % (0-4); Hematocrit 33.3 % (37.0-47.0); Hemoglobin 9.4 g/dl (12.0-16.0); Imm Gran Abs Auto 0.06 X10*3/uL (0.00-0.03); Imm Gran Pct Auto 0.6 % (0.0-0.4); Lymphocytes Absolute Auto 1.1 X10*3/uL (1.2-4.9); Mean Corpuscular HGB Conc 28.2 g/dl (31.0-35.0); Mean Corpuscular Hemoglobin 21.3 pg (27.0-33.0); Mean Corpuscular Volume 75.3 fL (80.0-98.0); Mean Platelet Volume 9.4 fL (9.4-12.3); Monocytes Absolute Auto 0.6 X10*3/uL (0.1-1.2); Monocytes Percent Auto 5.4 % (2-11); Neutrophils Absolute Auto 8.4 x10*3/uL (2.0-8.3); Neutrophils Percent Auto 80.7 % (45-73); Platelet Count 593 X10*3/uL (160-400); Red Blood Count 4.42 X10*6/uL (4.20-5.50); Red Cell Distribution Width 29.4 % (11.0-16.0); White Blood Count 10.4 X10*3/uL (4.8-10.8)
[2021-12-18 06:20] LABS: INTERNATIONAL NORM RATIO 2.7 (0.9-1.1); Prothrombin Time 31.6 SEC (9.9-13.0)
[2021-12-18 06:23] LABS: Partial Thromboplastin Time 46.4 SEC (24.1-38.0)
[2021-12-18 06:32] LABS: B Type Natriuretic Peptide 185 pg/mL (<100)
[2021-12-18 06:38] LABS: Alanine Aminotransferase 27 U/L (0-31); Albumin Level 2.8 g/dL (3.5-5.0); Alkaline Phosphatase 65 U/L (39-117); Anion Gap 11 (12-20); Aspartate Amino Transferase 21 U/L (5-31); Bilirubin Direct 0.4 mg/dL (0.0-0.5); Bilirubin Total 0.7 mg/dL (0.0-1.0); Blood Urea Nitrogen 9 mg/dL (9-16); Calcium 8.1 mg/dL (8.4-10.2); Carbon Dioxide 33 mmol/L (22-29); Chloride 111 mmol/L (96-108); Creatinine Clr Calc Pharmacy 119.6; Estimated Glomerular Filt Rate > 60; Glucose Random 187 mg/dL (60-115); Magnesium 2.1 mg/dL (1.6-2.6); Potassium 3.6 mmol/L (3.3-5.1); Sodium 151 mmol/L (135-145); Total Protein 5.5 g/dL (6.5-8.0)
--- NOTE | 2021-12-18 07:02 | PC.NURSE ---
Pt overnight had increased work of breathing, RR in the 30s-40s, shallow, rhonchi throughout, moist cough, and anasarca. MD was made aware, IVF were D/Cas, PRN Morphine given, stat Chest XR showed worsening pulmonary edema. ordered one time dose of 20mg IV lasix. About 0230: Dr House, respiratory and ICU PA Rama at bedside due to continued increased work of breathing. Pt on Bipap, RR in the 40s, pt sating 89%. Lacy ordered nitro paste, a second dose of 20mg IV lasix, and VBGs. Output of 700cc since 0000. FiO2 increased to 30%, pt now sating 96%, RR 35. Pt on continuous tele and O2 monitoring.
[2021-12-18 07:39] LABS: Glucose, Whole Blood 162 mg/dL (60-115)
[2021-12-18] MEDS: Insulin Lispro 100 UNIT/ML 3 ML VIAL SUBCUT ×4 (08:20→20:56)
--- NOTE | 2021-12-18 09:04 | P.PNIM_ITS ---
Subjective Subjective Date of Service: 12/19/21 Interval History: Seen in f/u for acute hypoxic resp failure d/t angioedema, and exacerbation of COPD, heart failure, PNA--Intubated and managed in ICU twice...Has seemed better in generally but overnight reported developped acute respiratory distress attributed IVF given for Hypernatermia and given lasix and put on BiPAP with some improvement Review of Systems Still on bipap, soem sob, Physical Exam Verdana 4l Vital Signs: Verdana 4d Verdana 4d Vital Signs: Verdana 4d Verdana 4Bd Last Vital Signs Verdana 4d Insecticide Expert New 4d Insecticide Expert New 4d Temp 98.4 F 12/18/21 07:11 Insecticide Expert New 4d Pulse 126 H 12/18/21 07:11 Insecticide Expert New 4d Resp 33 H 12/18/21 07:31 BP 136/64 12/18/21 07:11 Pulse Ox 96 12/18/21 07:11 Oxygen Flow Rate 30 12/02/21 00:00 BMI result Body Mass Index 54.7 Const: Other: General: AO X 3, no acute distress Resp: CTA bilateral CVS: S1,S2,RRR GI: +BS, NT, no distention Skin: No rash, decub ulcer as in the picture Neuro: motor grossly intact Psych: appropriate affect Objective Data Active Medications Acetaminophen (Acetaminophen 325 Mg Tablet) 650 mg PO Q6H PRN PRN Reason: Fever Last Admin: 12/17/21 21:00 Dose: 650 mg Documented by: LUANA Apixaban (Apixaban 5 Mg Tablet) 5 mg PO BID [facility] Last Admin: 12/17/21 20:26 Dose: 5 mg Documented by: LUANA Atorvastatin Calcium (Atorvastatin Calcium 10 Mg Tablet) 10 mg PO DAILY [facility] Last Admin: 12/17/21 07:56 Dose: 10 mg Documented by: BROGilmer Digoxin (Digoxin 0.25 Mg Tablet) 0.25 mg PO DAILY [facility] Last Admin: 12/17/21 07:56 Dose: 0.25 mg Documented by: DEBBIE Insulin Human Lispro (Insulin Lispro 100 Unit/Ml 3 Ml Vial) 0 unit SUBCUT QIDACHS [facility]; Protocol Last Admin: 12/18/21 08:20 Dose: 4 unit Documented by: DEBBIE Metoprolol Tartrate (Metoprolol Tartrate 25 Mg Tablet) 75 mg PO BID [facility]; Protocol Last Admin: 12/17/21 20:26 Dose: 75 mg Documented by: LUANA Morphine Sulfate (Morphine Sulfate 2 Mg/Ml Cartridge) 1 mg IVPUSH Q4H PRN; Protocol PRN Reason: pain/SOB Last Admin: 12/18/21 03:25 Dose: 1 mg Documented by: LUANA Comments: johnathan House, give Morphine now Nystatin (Nystatin Powder 15 Gm Bottle) 1 appl TOPICAL TID [facility]; Protocol Last Admin: 12/17/21 20:27 Dose: 1 appl Documented by: LUANA Pharmacy Consult (Consult Rx Perform Med Rec) 1 each MISCELLANE ONCE PRN PRN Reason: Consult order Sodium Chloride (0.9 % Sodium Chloride Flush 3 Ml Syringe) 3 ml IVFLUSH QSHIFT [facility] Last Admin: 12/17/21 20:27 Dose: 3 ml Documented by: LUANA Spironolactone (Spironolactone 25 Mg Tablet) 25 mg PO DAILY [facility]; Protocol Last Admin: 12/17/21 07:56 Dose: 25 mg Documented by: DEBBIE Labs CBC & Chem 7: 12/19/21 05:53 12/19/21 05:53 Labs: Laboratory Results - last 24 hr 12/17/21 12/17/21 12/17/21 10:47 16:22 20:01 MCV MCH MCHC RDW Plt Count MPV Immature Gran % (Auto) Neut % (Auto) Lymph % (Auto) [place] % (Auto) Eos % (Auto) Baso % (Auto) Lymph # (Auto) [place] # (Auto) Eos # (Auto) Baso # (Auto) Abs Immat Gran (auto) Absolute Neuts (auto) Absolute Nucleated RBC Nucleated RBC % (auto) PT INR APTT VBG pH VBG pCO2 VBG pO2 VBG HCO3 VBG O2 Saturation VBG Base Excess Anion Gap Estim Creat Clear Calc Estimated GFR POC Glucose 274 H 171 H 197 H Random Glucose Calcium Phosphorus Magnesium Total Bilirubin Direct Bilirubin AST ALT Alkaline Phosphatase B-Natriuretic Peptide Total Protein Albumin 12/18/21 12/18/21 12/18/21 00:14 03:58 04:44 MCV MCH MCHC RDW Plt Count MPV Immature Gran % (Auto) Neut % (Auto) Lymph % (Auto) [place] % (Auto) Eos % (Auto) Baso % (Auto) Lymph # (Auto) [place] # (Auto) Eos # (Auto) Baso # (Auto) Abs Immat Gran (auto) Absolute Neuts (auto) Absolute Nucleated RBC Nucleated RBC % (auto) PT INR APTT VBG pH 7.46 H VBG pCO2 47 VBG pO2 50 VBG HCO3 34 H VBG O2 Saturation 78.0 VBG Base Excess 9.6 Anion Gap 10 L 12 Estim Creat Clear Calc 127.3 119.9 Estimated GFR > 60 > 60 POC Glucose Random Glucose 168 H 198 H Calcium 8.3 L 8.2 L Phosphorus Magnesium Total Bilirubin Direct Bilirubin AST ALT Alkaline Phosphatase B-Natriuretic Peptide Total Protein Albumin 12/18/21 12/18/21 12/18/21 04:46 05:58 05:58 MCV 75.3 L MCH 21.3 L MCHC 28.2 L RDW 29.4 H Plt Count 593 H MPV 9.4 Immature Gran % (Auto) 0.6 H Neut % (Auto) 80.7 H Lymph % (Auto) 11.0 L [place] % (Auto) 5.4 Eos % (Auto) 1.7 Baso % (Auto) 0.6 Lymph # (Auto) 1.1 L [place] # (Auto) 0.6 Eos # (Auto) 0.2 Baso # (Auto) 0.1 Abs Immat Gran (auto) 0.06 H Absolute Neuts (auto) 8.4 H Absolute Nucleated RBC 0.000 Nucleated RBC % (auto) 0.0 PT 31.6 H INR 2.7 H APTT 46.4 H VBG pH 7.43 VBG pCO2 55 VBG pO2 53 VBG HCO3 37 H VBG O2 Saturation 79.0 VBG Base Excess 11.4 Anion Gap Estim Creat Clear Calc Estimated GFR POC Glucose Random Glucose Calcium Phosphorus Magnesium Total Bilirubin Direct Bilirubin AST ALT Alkaline Phosphatase B-Natriuretic Peptide Total Protein Albumin 12/18/21 12/18/21 12/18/21 05:58 05:58 06:02 MCV MCH MCHC RDW Plt Count MPV Immature Gran % (Auto) Neut % (Auto) Lymph % (Auto) [place] % (Auto) Eos % (Auto) Baso % (Auto) Lymph # (Auto) [place] # (Auto) Eos # (Auto) Baso # (Auto) Abs Immat Gran (auto) Absolute Neuts (auto) Absolute Nucleated RBC Nucleated RBC % (auto) PT INR APTT VBG pH 7.45 H VBG pCO2 54 VBG pO2 71 VBG HCO3 38 H VBG O2 Saturation 93.0 VBG Base Excess 12.2 Anion Gap 11 L Estim Creat Clear Calc 119.6 Estimated GFR > 60 POC Glucose Random Glucose 187 H Calcium 8.1 L Phosphorus 3.0 Magnesium 2.1 Total Bilirubin 0.7 Direct Bilirubin 0.4 AST 21 ALT 27 Alkaline Phosphatase 65 B-Natriuretic Peptide 185 H Total Protein 5.5 L Albumin 2.8 L 12/18/21 07:17 MCV MCH MCHC RDW Plt Count MPV Immature Gran % (Auto) Neut % (Auto) Lymph % (Auto) [place] % (Auto) Eos % (Auto) Baso % (Auto) Lymph # (Auto) [place] # (Auto) Eos # (Auto) Baso # (Auto) Abs Immat Gran (auto) Absolute Neuts (auto) Absolute Nucleated RBC Nucleated RBC % (auto) PT INR APTT VBG pH VBG pCO2 VBG pO2 VBG HCO3 VBG O2 Saturation VBG Base Excess Anion Gap Estim Creat Clear Calc Estimated GFR POC Glucose 162 H Random Glucose Calcium Phosphorus Magnesium Total Bilirubin Direct Bilirubin AST ALT Alkaline Phosphatase B-Natriuretic Peptide Total Protein Albumin Assessment and Plan (1) Acute encephalopathy: Status: Acute (2) Acute respiratory failure: Status: Acute Plan ? 66-year-old lady with underlying alcoholic cirrhosis, dementia, schizoaffective disorder a admitted with acute? 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 On 12/06 she again developped respiratory failure nearly obtunded with no gag reflex and was transfered yet again to ICU and again was intubated and mechanically ventilated and extubated again and transfer back to medical floor on 12/15 #Acute respiratory failure secondary to angioedema requiring intubation and ventilatory support for airway protection intubated on 11/27,? extubated 11/29/2021, reintubated on 12/06 and extubated 12/13. Respiratory failure of of multifactorial etiology including COPD, possible pneumonia and heart failure and Pneumonia, Overall respiratoy failure has improved but was back on BiPAP ov ernight possibly due to fluid overload and given Lasix and put back on BiPAP.. get an ABG and if not doing well should go back to ICU # AFib with RVR--variable rate, but overall high.. -Increase Metoprolol 100 bid, and Digoxin, will get cardiology to help. Eliquis for anticoagoagultion #Chronic diastolic heart failure--she seems compensated, she was on IV diuretic in ICU including Lasix drip, her edema looks better but the record shows that she has only diuresed 160 ml total. Will follow clinically-- #Hyponatremia--resolved, now hypernatremia.. Sodium 151.. #HypERnatremia--sodium is trending up again, 151, management challenging due to IVF causing fluid overload and heart failure #COPD? exacerbated by pneumonia -Bronchodilators, steroid and has completed course of Zosyn and Unassyn for pneumonia, fever resolved #DM II--SSI, off Lantus sugars on low side #. Schizoaffective disorder--She was on Haldol PRN but all meds dc since ICU #Metabolic Alkalosis--Resolved #HLD--Lipitor #leukocytosis--d/t steroid,, resolved #PT eval and plan to dischcarge soon #Decub ulcer as noted in picture and evaluated by surgery with the following remarks:Large sacral decubitus ulcer with necrotic skin and subc, excised at the bedside today.? Viable subcut. noted below.? Wounds redressed with sponge dressing.? Keep all pressure off the wound, roll side to side, air mattress.? Change dressings daily and prn.? Reevauation with wound care nurse--Dr. Jiménez. Wound RN to follow Quality Stroke Does the patient have a stroke diagnosis?: No VTE Prior VTE?: No VTE Risk Level:: Medical - moderate - high VTE Device Contraindication: Treatment Not Indicated VTE Drug Contraindication: N/A - Med Ordered
[2021-12-18 09:30] LABS: ABG Base Excess 13.1 mmol/L; ABG HCO3 37 mmol/L (22-26); ABG pCO2 48 mmHg (32-45); ABG pH 7.49 (7.35-7.45); ABG pO2 63 mmHg (83-108)
[2021-12-18] MEDS: 0.9 % Sodium Chloride Flush 3 ML SYRINGE IVFLUSH ×2 (10:08→15:02)
[2021-12-18] MEDS: Metoprolol Tartrate 25 MG TABLET 75 MG PO ×2 (10:08→20:50)
[2021-12-18] MEDS: Digoxin 0.25 MG TABLET PO (10:09)
[2021-12-18] MEDS: Atorvastatin Calcium 10 MG TABLET PO (10:09)
[2021-12-18] MEDS: Spironolactone 25 MG TABLET PO (10:09)
[2021-12-18] MEDS: Apixaban 5 MG TABLET PO ×2 (10:09→20:50)
[2021-12-18] MEDS: Nystatin Powder 15 GM BOTTLE 1 APPL TOPICAL ×3 (10:09→20:50)
[2021-12-18 11:08] LABS: Glucose, Whole Blood 217 mg/dL (60-115)
[2021-12-18 13:29] LABS: ABG Refer to POC result
--- NOTE | 2021-12-18 14:51 | P.PNNP_ITS ---
Subjective Subjective Date of Service: 12/18/21 Principal diagnosis: dysnatremia, hypervol Interval history: Seen in f/u for Hypernatremia Pt with acute hypoxic resp failure d/t angioedema, and exacerbation of COPD, heart failure, PNA--Intubated and managed in ICU twice... D5 w as d/c'd overnight Physical Exam Verdana 4l Vital Signs: Verdana 4d Verdana 4d Vital Signs: Verdana 4d Verdana 4Bd Last Vital Signs Verdana 4d Preassembler Printed Circuit Board New 4d Preassembler [employer] New 4d Temp 98.2 F 12/18/21 10:59 Preassembler [employer]ed [employer] Board New 4d Pulse 109 H 12/18/21 10:59 Preassembler [employer]ed [employer] Board New 4d Resp 20 12/18/21 10:59 BP 132/73 12/18/21 10:59 Pulse Ox 93 12/18/21 10:59 Oxygen Flow Rate 30 12/02/21 00:00 BMI result Body Mass Index 54.7 General: AO X 3, no acute distress Resp:? CTA bilateral CVS: S1,S2,RRR GI: +BS, NT, no distention Skin: No rash, decub ulcer as in the picture Neuro:? motor grossly intact Psych: appropriate affect Objective Data Labs CBC & Chem 7: 12/18/21 05:58 12/18/21 05:58 Labs: Laboratory Results - last 24 hr 12/17/21 12/17/21 12/18/21 16:22 20:01 00:14 WBC RBC Hgb Hct MCV MCH MCHC RDW Plt Count MPV Immature Gran % (Auto) Neut % (Auto) Lymph % (Auto) [place] % (Auto) Eos % (Auto) Baso % (Auto) Lymph # (Auto) [place] # (Auto) Eos # (Auto) Baso # (Auto) Abs Immat Gran (auto) Absolute Neuts (auto) Absolute Nucleated RBC Nucleated RBC % (auto) PT INR APTT O2 Saturation ABG pH at Pt Temp ABG pCO2 at Pt Temp ABG pO2 at Pt Temp ABG HCO3 ABG Base Excess (Actual) VBG pH VBG pCO2 VBG pO2 VBG HCO3 VBG O2 Saturation VBG Base Excess Sodium 151 H Potassium 3.6 Chloride 114 H Carbon Dioxide 31 H Anion Gap 10 L BUN 8 L Creatinine 0.65 Estim Creat Clear Calc 127.3 Estimated GFR > 60 POC Glucose 171 H 197 H Random Glucose 168 H Calcium 8.3 L Phosphorus Magnesium Total Bilirubin Direct Bilirubin AST ALT Alkaline Phosphatase B-Natriuretic Peptide Total Protein Albumin 12/18/21 12/18/21 12/18/21 03:58 04:44 04:46 WBC RBC Hgb Hct MCV MCH MCHC RDW Plt Count MPV Immature Gran % (Auto) Neut % (Auto) Lymph % (Auto) [place] % (Auto) Eos % (Auto) Baso % (Auto) Lymph # (Auto) [place] # (Auto) Eos # (Auto) Baso # (Auto) Abs Immat Gran (auto) Absolute Neuts (auto) Absolute Nucleated RBC Nucleated RBC % (auto) PT INR APTT O2 Saturation ABG pH at Pt Temp ABG pCO2 at Pt Temp ABG pO2 at Pt Temp ABG HCO3 ABG Base Excess (Actual) VBG pH 7.46 H 7.43 VBG pCO2 47 55 VBG pO2 50 53 VBG HCO3 34 H 37 H VBG O2 Saturation 78.0 79.0 VBG Base Excess 9.6 11.4 Sodium 152 H Potassium 3.6 Chloride 111 H Carbon Dioxide 33 H Anion Gap 12 BUN 9 Creatinine 0.69 Estim Creat Clear Calc 119.9 Estimated GFR > 60 POC Glucose Random Glucose 198 H Calcium 8.2 L Phosphorus Magnesium Total Bilirubin Direct Bilirubin AST ALT Alkaline Phosphatase B-Natriuretic Peptide Total Protein Albumin 12/18/21 12/18/21 12/18/21 05:58 05:58 05:58 WBC 10.4 RBC 4.42 Hgb 9.4 L Hct 33.3 L MCV 75.3 L MCH 21.3 L MCHC 28.2 L RDW 29.4 H Plt Count 593 H MPV 9.4 Immature Gran % (Auto) 0.6 H Neut % (Auto) 80.7 H Lymph % (Auto) 11.0 L [place] % (Auto) 5.4 Eos % (Auto) 1.7 Baso % (Auto) 0.6 Lymph # (Auto) 1.1 L [place] # (Auto) 0.6 Eos # (Auto) 0.2 Baso # (Auto) 0.1 Abs Immat Gran (auto) 0.06 H Absolute Neuts (auto) 8.4 H Absolute Nucleated RBC 0.000 Nucleated RBC % (auto) 0.0 PT 31.6 H INR 2.7 H APTT 46.4 H O2 Saturation ABG pH at Pt Temp ABG pCO2 at Pt Temp ABG pO2 at Pt Temp ABG HCO3 ABG Base Excess (Actual) VBG pH VBG pCO2 VBG pO2 VBG HCO3 VBG O2 Saturation VBG Base Excess Sodium 151 H Potassium 3.6 Chloride 111 H Carbon Dioxide 33 H Anion Gap 11 L BUN 9 Creatinine 0.69 Estim Creat Clear Calc 119.6 Estimated GFR > 60 POC Glucose Random Glucose 187 H Calcium 8.1 L Phosphorus 3.0 Magnesium 2.1 Total Bilirubin 0.7 Direct Bilirubin 0.4 AST 21 ALT 27 Alkaline Phosphatase 65 B-Natriuretic Peptide Total Protein 5.5 L Albumin 2.8 L 12/18/21 12/18/21 12/18/21 05:58 06:02 07:17 WBC RBC Hgb Hct MCV MCH MCHC RDW Plt Count MPV Immature Gran % (Auto) Neut % (Auto) Lymph % (Auto) [place] % (Auto) Eos % (Auto) Baso % (Auto) Lymph # (Auto) [place] # (Auto) Eos # (Auto) Baso # (Auto) Abs Immat Gran (auto) Absolute Neuts (auto) Absolute Nucleated RBC Nucleated RBC % (auto) PT INR APTT O2 Saturation ABG pH at Pt Temp ABG pCO2 at Pt Temp ABG pO2 at Pt Temp ABG HCO3 ABG Base Excess (Actual) VBG pH 7.45 H VBG pCO2 54 VBG pO2 71 VBG HCO3 38 H VBG O2 Saturation 93.0 VBG Base Excess 12.2 Sodium Potassium Chloride Carbon Dioxide Anion Gap BUN Creatinine Estim Creat Clear Calc Estimated GFR POC Glucose 162 H Random Glucose Calcium Phosphorus Magnesium Total Bilirubin Direct Bilirubin AST ALT Alkaline Phosphatase B-Natriuretic Peptide 185 H Total Protein Albumin 12/18/21 12/18/21 09:23 10:57 WBC RBC Hgb Hct MCV MCH MCHC RDW Plt Count MPV Immature Gran % (Auto) Neut % (Auto) Lymph % (Auto) [place] % (Auto) Eos % (Auto) Baso % (Auto) Lymph # (Auto) [place] # (Auto) Eos # (Auto) Baso # (Auto) Abs Immat Gran (auto) Absolute Neuts (auto) Absolute Nucleated RBC Nucleated RBC % (auto) PT INR APTT O2 Saturation 90.0 ABG pH at Pt Temp 7.49 H ABG pCO2 at Pt Temp 48 H ABG pO2 at Pt Temp 63 L ABG HCO3 37 H ABG Base Excess (Actual) 13.1 VBG pH VBG pCO2 VBG pO2 VBG HCO3 VBG O2 Saturation VBG Base Excess Sodium Potassium Chloride Carbon Dioxide Anion Gap BUN Creatinine Estim Creat Clear Calc Estimated GFR POC Glucose 217 H Random Glucose Calcium Phosphorus Magnesium Total Bilirubin Direct Bilirubin AST ALT Alkaline Phosphatase B-Natriuretic Peptide Total Protein Albumin Microbiology Microbiology Results: Microbiology 12/11/21 19:58 Blood - Venous Blood Culture - Final No growth after 5 days. 12/11/21 19:58 Blood - Venous Blood Culture - Final No growth after 5 days. 12/12/21 02:35 Urine Catheterized - Arias Catheter Urine Culture - Final No growth. 12/08/21 15:40 Bronch Lll Gram Stain - Final 12/08/21 15:40 Bronch Lll Routine Culture - Final No growth after 2 days 12/05/21 21:20 Blood - Venous Blood Culture - Final No growth after 5 days. 12/05/21 21:20 Blood - Venous Blood Culture - Final No growth after 5 days. 12/08/21 Unknown Buttock Right Gram Stain - Final 12/08/21 Unknown Buttock Right Routine Culture - Final 12/06/21 20:12 Sputum - Suctioned Gram Stain - Final 12/06/21 20:12 Sputum - Suctioned Sputum Culture - Final 12/06/21 18:16 Urine Catheterized - Arias Catheter Urine Culture - Final No growth. 11/28/21 09:32 Sputum - Suctioned Gram Stain - Final 11/28/21 09:32 Sputum - Suctioned Sputum Culture - Final Kimberly albicans 11/25/21 01:47 Blood - Venous Blood Culture - Final No growth after 5 days. 11/25/21 01:42 Blood - Venous Blood Culture - Final No growth after 5 days. Procedures Date of Service Date of Service: 12/18/21 Assessment & Plan Assessment and plan (1) Hypernatremia: Status: Acute Plan (1)Hyperatremia ?Assessment and Plan: 66-year-old female with past medical history of alcoholic liver cirrhosis, dementia, hyponatremia presents to the hospital with AFib with RVR Recurrent? H- Free water deficit + Loop diuretic use ]with Hypernatremia 70- 80 ml of? D5W Check Na in AM Can use thiazide diuretic for SOB ie Diuril 250 or 500 mg IV If not available use HCTZ 50 mg Time Spent With Patient Time: Total time spent is greater than 50% in coordination of care (as documented) at patient's floor/unit and/or counseling patient: Progress Note: Quality Stroke Does the patient have a stroke diagnosis?: No
[2021-12-18] MEDS: Dextrose 5 % 1,000 ML 75 ML IVCONT (15:03)
[2021-12-18] MEDS: hydroCHLOROthiazide 25 MG TABLET PO (16:02)
[2021-12-18 16:53] LABS: Glucose, Whole Blood 208 mg/dL (60-115)
[2021-12-18 20:27] LABS: Glucose, Whole Blood 153 mg/dL (60-115)
[2021-12-19] VITALS (12 sets, daily range): BP systolic 124–154; BP diastolic 66–76; PULSE 20–122; RESP 17–93; TEMP 36.3–36.9; O2SAT 89–98; BMI 54.4
[2021-12-19] MEDS: Dextrose 5 % 1,000 ML 75 ML IVCONT ×2 (03:17→16:10)
[2021-12-19 06:00] LABS: MANUAL DIFF FLAG NO
[2021-12-19 06:06] LABS: VBG Base Excess 15.2 mmol/L; VBG HCO3 41 mmol/L (22-26); VBG pCO2 58 mmHg; VBG pH 7.45 (7.32-7.43); VBG pO2 62 mmHg
[2021-12-19 06:07] LABS: Basophils Absolute Auto 0.1 X10*3/uL (0.0-0.2); Basophils Percent Auto 0.5 % (0-2); Eosinophils Absolute Auto 0.3 X10*3/uL (0.0-0.4); Eosinophils Percent Auto 3.1 % (0-4); Hematocrit 32.4 % (37.0-47.0); Imm Gran Abs Auto 0.07 X10*3/uL (0.00-0.03); Imm Gran Pct Auto 0.6 % (0.0-0.4); Lymphocytes Absolute Auto 1.3 X10*3/uL (1.2-4.9); Lymphocytes Percent Auto 11.5 % (20-40); Mean Corpuscular HGB Conc 27.8 g/dl (31.0-35.0); Mean Corpuscular Hemoglobin 21.1 pg (27.0-33.0); Mean Corpuscular Volume 76.1 fL (80.0-98.0); Mean Platelet Volume 9.4 fL (9.4-12.3); Monocytes Absolute Auto 0.5 X10*3/uL (0.1-1.2); Monocytes Percent Auto 4.4 % (2-11); Neutrophils Absolute Auto 8.8 x10*3/uL (2.0-8.3); Neutrophils Percent Auto 79.9 % (45-73); Platelet Count 488 X10*3/uL (160-400); Red Blood Count 4.26 X10*6/uL (4.20-5.50); Red Cell Distribution Width 29.3 % (11.0-16.0); Venous Blood Gas Refer to POC result
[2021-12-19 06:12] LABS: INTERNATIONAL NORM RATIO 2.3 (0.9-1.1); Prothrombin Time 26.6 SEC (9.9-13.0)
[2021-12-19 06:15] LABS: Partial Thromboplastin Time 41.3 SEC (24.1-38.0)
[2021-12-19 06:31] LABS: B Type Natriuretic Peptide 112 pg/mL (<100)
[2021-12-19 06:37] LABS: Alanine Aminotransferase 24 U/L (0-31); Albumin Level 2.7 g/dL (3.5-5.0); Alkaline Phosphatase 60 U/L (39-117); Anion Gap 8 (12-20); Aspartate Amino Transferase 21 U/L (5-31); Bilirubin Direct 0.4 mg/dL (0.0-0.5); Bilirubin Total 0.7 mg/dL (0.0-1.0); Blood Urea Nitrogen 9 mg/dL (9-16); Calcium 8.2 mg/dL (8.4-10.2); Carbon Dioxide 36 mmol/L (22-29); Chloride 106 mmol/L (96-108); Creatinine Clr Calc Pharmacy 134.8; Estimated Glomerular Filt Rate > 60; Glucose Random 174 mg/dL (60-115); Magnesium 2.1 mg/dL (1.6-2.6); Phosphorus 2.7 mg/dL (2.7-4.5); Potassium 3.4 mmol/L (3.3-5.1); Sodium 147 mmol/L (135-145); Total Protein 5.2 g/dL (6.5-8.0)
[2021-12-19 07:21] LABS: Glucose, Whole Blood 154 mg/dL (60-115)
[2021-12-19] MEDS: Metoprolol Tartrate 25 MG TABLET 75 MG PO ×2 (08:41→20:33)
[2021-12-19] MEDS: Spironolactone 25 MG TABLET PO (08:41)
[2021-12-19] MEDS: Apixaban 5 MG TABLET PO ×2 (08:41→20:33)
[2021-12-19] MEDS: Insulin Lispro 100 UNIT/ML 3 ML VIAL SUBCUT ×3 (08:41→20:33)
[2021-12-19] MEDS: hydroCHLOROthiazide 25 MG TABLET PO (08:41)
[2021-12-19] MEDS: Digoxin 0.25 MG TABLET PO (08:41)
[2021-12-19] MEDS: Atorvastatin Calcium 10 MG TABLET PO (08:41)
[2021-12-19] MEDS: Nystatin Powder 15 GM BOTTLE 1 APPL TOPICAL ×3 (08:42→20:34)
[2021-12-19] MEDS: 0.9 % Sodium Chloride Flush 3 ML SYRINGE IVFLUSH ×2 (08:42→20:36)
--- NOTE | 2021-12-19 09:44 | P.PNIM_ITS ---
Subjective Subjective Date of Service: 12/19/21 Interval History: f/u on hypernatremia, underlying respiratory issues...afib, decub ulcer, underlying psychiatric issues. She is more alert today and breathing easy Review of Systems no sob, more alert, no confusion Physical Exam Verdana 4l Vital Signs: Verdana 4d Verdana 4d Vital Signs: Verdana 4d Verdana 4Bd Last Vital Signs Verdana 4d Drilling Contractor New 4d Drilling Contractor New 4d Temp 98.1 F 12/19/21 07:43 Drilling Contractor New 4d Pulse 107 H 12/19/21 07:43 Drilling Contractor New 4d Resp 18 12/19/21 07:46 BP 154/76 H 12/19/21 07:43 Pulse Ox 97 12/19/21 07:43 Oxygen Flow Rate 30 12/02/21 00:00 BMI result Body Mass Index 54.4 Const: Other: General: AO X 3, no acute distress Resp: CTA bilateral CVS: S1,S2,RRR GI: +BS, NT, no distention Skin: No rash, decub ulcer as in the picture Neuro: motor grossly intact Psych: appropriate affect Objective Data Active Medications Acetaminophen (Acetaminophen 325 Mg Tablet) 650 mg PO Q6H PRN PRN Reason: Fever Last Admin: 12/17/21 21:00 Dose: 650 mg Documented by: LUANA Apixaban (Apixaban 5 Mg Tablet) 5 mg PO BID [facility] Last Admin: 12/19/21 08:41 Dose: 5 mg Documented by: DEBBIE Atorvastatin Calcium (Atorvastatin Calcium 10 Mg Tablet) 10 mg PO DAILY [facility] Last Admin: 12/19/21 08:41 Dose: 10 mg Documented by: DEBBIE Digoxin (Digoxin 0.25 Mg Tablet) 0.25 mg PO DAILY [facility] Last Admin: 12/19/21 08:41 Dose: 0.25 mg Documented by: DEBBIE Hydrochlorothiazide (Hydrochlorothiazide 25 Mg Tablet) 25 mg PO DAILY [facility]; Protocol Stop: 12/20/21 09:01 Last Admin: 12/19/21 08:41 Dose: 25 mg Documented by: DEBBIE Dextrose (D5w) 1,000 mls @ 75 mls/hr IVCONT .[id number] [facility] Last Admin: 12/19/21 03:17 Dose: 75 mls/hr Documented by: LUANA Insulin Human Lispro (Insulin Lispro 100 Unit/Ml 3 Ml Vial) 0 unit SUBCUT QIDACHS [facility]; Protocol Last Admin: 12/19/21 08:41 Dose: 4 unit Documented by: DEBBIE Metoprolol Tartrate (Metoprolol Tartrate 25 Mg Tablet) 75 mg PO BID [facility]; Protocol Last Admin: 12/19/21 08:41 Dose: 75 mg Documented by: DEBBIE Morphine Sulfate (Morphine Sulfate 2 Mg/Ml Cartridge) 1 mg IVPUSH Q4H PRN; Protocol PRN Reason: pain/SOB Last Admin: 12/18/21 03:25 Dose: 1 mg Documented by: LUANA Comments: johnathan House, give Morphine now Nystatin (Nystatin Powder 15 Gm Bottle) 1 appl TOPICAL TID [facility]; Protocol Last Admin: 12/19/21 08:42 Dose: 1 appl Documented by: DEBBIE Pharmacy Consult (Consult Rx Perform Med Rec) 1 each MISCELLANE ONCE PRN PRN Reason: Consult order Sodium Chloride (0.9 % Sodium Chloride Flush 3 Ml Syringe) 3 ml IVFLUSH QSHIFT [facility] Last Admin: 12/19/21 08:42 Dose: 3 ml Documented by: DEBBIE Spironolactone (Spironolactone 25 Mg Tablet) 25 mg PO DAILY [facility]; Protocol Last Admin: 12/19/21 08:41 Dose: 25 mg Documented by: DEBBIE Labs CBC & Chem 7: 12/19/21 05:53 12/19/21 05:53 Labs: Laboratory Results - last 24 hr 12/18/21 12/18/21 12/18/21 10:57 16:25 20:16 MCV MCH MCHC RDW Plt Count MPV Immature Gran % (Auto) Neut % (Auto) Lymph % (Auto) [place] % (Auto) Eos % (Auto) Baso % (Auto) Lymph # (Auto) [place] # (Auto) Eos # (Auto) Baso # (Auto) Abs Immat Gran (auto) Absolute Neuts (auto) Absolute Nucleated RBC Nucleated RBC % (auto) PT INR APTT VBG pH VBG pCO2 VBG pO2 VBG HCO3 VBG O2 Saturation VBG Base Excess Anion Gap Estim Creat Clear Calc Estimated GFR POC Glucose 217 H 208 H 153 H Random Glucose Calcium Phosphorus Magnesium Total Bilirubin Direct Bilirubin AST ALT Alkaline Phosphatase B-Natriuretic Peptide Total Protein Albumin 12/19/21 12/19/21 12/19/21 05:53 05:53 05:53 MCV Cancelled 76.1 L MCH Cancelled 21.1 L MCHC Cancelled 27.8 L RDW Cancelled 29.3 H Plt Count Cancelled 488 H MPV Cancelled 9.4 Immature Gran % (Auto) 0.6 H Neut % (Auto) 79.9 H Lymph % (Auto) 11.5 L [place] % (Auto) 4.4 Eos % (Auto) 3.1 Baso % (Auto) 0.5 Lymph # (Auto) 1.3 [place] # (Auto) 0.5 Eos # (Auto) 0.3 Baso # (Auto) 0.1 Abs Immat Gran (auto) 0.07 H Absolute Neuts (auto) 8.8 H Absolute Nucleated RBC Cancelled 0.000 Nucleated RBC % (auto) Cancelled 0.0 PT INR APTT VBG pH VBG pCO2 VBG pO2 VBG HCO3 VBG O2 Saturation VBG Base Excess Anion Gap Cancelled Estim Creat Clear Calc Cancelled Estimated GFR Cancelled POC Glucose Random Glucose Cancelled Calcium Cancelled Phosphorus Magnesium Total Bilirubin Direct Bilirubin AST ALT Alkaline Phosphatase B-Natriuretic Peptide Total Protein Albumin 12/19/21 12/19/21 12/19/21 05:53 05:53 05:53 MCV MCH MCHC RDW Plt Count MPV Immature Gran % (Auto) Neut % (Auto) Lymph % (Auto) [place] % (Auto) Eos % (Auto) Baso % (Auto) Lymph # (Auto) [place] # (Auto) Eos # (Auto) Baso # (Auto) Abs Immat Gran (auto) Absolute Neuts (auto) Absolute Nucleated RBC Nucleated RBC % (auto) PT 26.6 H INR 2.3 H APTT 41.3 H VBG pH VBG pCO2 VBG pO2 VBG HCO3 VBG O2 Saturation VBG Base Excess Anion Gap 8 L Estim Creat Clear Calc 134.8 Estimated GFR > 60 POC Glucose Random Glucose 174 H Calcium 8.2 L Phosphorus 2.7 Magnesium 2.1 Total Bilirubin 0.7 Direct Bilirubin 0.4 AST 21 ALT 24 Alkaline Phosphatase 60 B-Natriuretic Peptide 112 H Total Protein 5.2 L Albumin 2.7 L 12/19/21 12/19/21 06:00 07:14 MCV MCH MCHC RDW Plt Count MPV Immature Gran % (Auto) Neut % (Auto) Lymph % (Auto) [place] % (Auto) Eos % (Auto) Baso % (Auto) Lymph # (Auto) [place] # (Auto) Eos # (Auto) Baso # (Auto) Abs Immat Gran (auto) Absolute Neuts (auto) Absolute Nucleated RBC Nucleated RBC % (auto) PT INR APTT VBG pH 7.45 H VBG pCO2 58 VBG pO2 62 VBG HCO3 41 H VBG O2 Saturation 88.0 VBG Base Excess 15.2 Anion Gap Estim Creat Clear Calc Estimated GFR POC Glucose 154 H Random Glucose Calcium Phosphorus Magnesium Total Bilirubin Direct Bilirubin AST ALT Alkaline Phosphatase B-Natriuretic Peptide Total Protein Albumin Assessment and Plan (1) Acute encephalopathy: Status: Acute (2) Acute respiratory failure: Status: Acute Plan ? 66-year-old lady with underlying alcoholic cirrhosis, dementia, schizoaffective disorder a admitted with acute? 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 On 12/06 she again developped respiratory failure nearly obtunded with no gag reflex and was transfered yet again to ICU and again was intubated and mechanically ventilated and extubated again and transfer back to medical floor on 12/15 #Acute respiratory failure secondary to angioedema requiring intubation and ventilatory support for airway protection intubated on 11/27,? extubated 11/29/2021, reintubated on 12/06 and extubated 12/13. Respiratory failure of of multifactorial etiology including COPD, possible pneumonia and heart failure and Pneumonia. Respiratory status is much better now, she is prone to fluid overload # AFib with RVR--variable rate, but overall seems better -Increase Metoprolol 100 bid, and continue Digoxin, will get cardiology to help. Eliquis for anticoagoagultion #Chronic diastolic heart failure--she seems compensated, she was on IV diuretic in ICU including Lasix drip, her edema looks better but the record shows that she has only diuresed 1300 ml total. Will follow clinically-- #Hyponatremia--resolved, now hypernatremia.. Sodium 151.. #HypERnatremia--sodium is improving, 147 now, continue d5 with HCTZ #COPD? exacerbated by pneumonia -Bronchodilators, steroid and has completed course of Zosyn and Unassyn for pneumonia, fever resolved #DM II--SSI, off Lantus sugars on low side #. Schizoaffective disorder--She was on Haldol PRN but all meds dc since ICU #Metabolic Alkalosis--Resolved #HLD--Lipitor #leukocytosis--d/t steroid,, resolved #PT eval and plan to dischcarge soon #Decub ulcer as noted in picture and evaluated by surgery with the following remarks:Large sacral decubitus ulcer with necrotic skin and subc, excised at the bedside today.? Viable subcut. noted below.? Wounds redressed with sponge dressing.? Keep all pressure off the wound, roll side to side, air mattress.? Change dressings daily and prn.? Reevauation with wound care nurse--Dr. Jiménez. Wound RN to follow #Malnutrition--speech/nutrition eval tomorrow Quality Stroke Does the patient have a stroke diagnosis?: No VTE Prior VTE?: No VTE Risk Level:: Medical - moderate - high VTE Device Contraindication: Treatment Not Indicated VTE Drug Contraindication: N/A - Med Ordered
--- NOTE | 2021-12-19 11:06 | P.PNCA_ITS ---
Subjective Subjective Date of Service: 12/19/21 Principal diagnosis: dysnatremia, hypervol Interval history: Denies any acute cardiac complaints at this time. Review of Systems Review of Systems Yes all other systems are reviewed and are negative Cardiovascular: Reports as per HPI, Reports no additional cardiovascular complaints, Denies acrocyanosis, Denies cool extremities, Denies chest pain, Denies diaphoresis, Denies syncope, Denies claudication, Denies leg edema, Denie s lightheadedness, Denies palpitations and Denies dyspnea Respiratory: Denies dyspnea Denies syncope Endocrine: Denies palpitations Physical Exam Vital Signs: Last Vital Signs Temp 98.5 F 12/19/21 10:53 Pulse 95 12/19/21 10:53 Resp 20 12/19/21 10:53 BP 146/66 H 12/19/21 10:53 Pulse Ox 92 12/19/21 10:53 Verdana 4 Oxygen Flow Verdana 4 30 Verdana 4 12/02/21 Rate Verdana 4 00:00 Verdana 4 Verdana 4 BMI result Verdana 4 Body Mass Index Verdana 4 54.4 Verdana 4 Verdana 4 Const General: comfortable HENMT Other: Unremarkable Neck Neck: Yes normal visual inspection Chest Chest palpation & inspection: normal inspection of the chest Resp Other: Difficult to auscultate and limited because of her body habitus as well as positioning. Possibly diminished breath sounds. Cardio Palpation: normal PMI Heart sounds: S1 normal heart sound present, S2 normal heart sound present, no gallops, no murmurs and no rubs GI Palpation (GI): Soft to palpation Back/Spine/Pelvis Other: unremarkable Skin Lesions: other Neuro General: other Extrem General: Yes other Psych Mental Status: other Objective Labs and Meds Result diagrams: 12/19/21 05:53 12/19/21 05:53 Lab results: Laboratory Results - last 24 hr 12/18/21 12/18/21 12/18/21 10:57 16:25 20:16 WBC RBC Hgb Hct MCV MCH MCHC RDW Plt Count MPV Immature Gran % (Auto) Neut % (Auto) Lymph % (Auto) [place] % (Auto) Eos % (Auto) Baso % (Auto) Lymph # (Auto) [place] # (Auto) Eos # (Auto) Baso # (Auto) Abs Immat Gran (auto) Absolute Neuts (auto) Absolute Nucleated RBC Nucleated RBC % (auto) PT INR APTT VBG pH VBG pCO2 VBG pO2 VBG HCO3 VBG O2 Saturation VBG Base Excess Sodium Potassium Chloride Carbon Dioxide Anion Gap BUN Creatinine Estim Creat Clear Calc Estimated GFR POC Glucose 217 H 208 H 153 H Random Glucose Calcium Phosphorus Magnesium Total Bilirubin Direct Bilirubin AST ALT Alkaline Phosphatase B-Natriuretic Peptide Total Protein Albumin 12/19/21 12/19/21 12/19/21 05:53 05:53 05:53 WBC Cancelled 11.0 H RBC Cancelled 4.26 Hgb Cancelled 9.0 L Hct Cancelled 32.4 L MCV Cancelled 76.1 L MCH Cancelled 21.1 L MCHC Cancelled 27.8 L RDW Cancelled 29.3 H Plt Count Cancelled 488 H MPV Cancelled 9.4 Immature Gran % (Auto) 0.6 H Neut % (Auto) 79.9 H Lymph % (Auto) 11.5 L [place] % (Auto) 4.4 Eos % (Auto) 3.1 Baso % (Auto) 0.5 Lymph # (Auto) 1.3 [place] # (Auto) 0.5 Eos # (Auto) 0.3 Baso # (Auto) 0.1 Abs Immat Gran (auto) 0.07 H Absolute Neuts (auto) 8.8 H Absolute Nucleated RBC Cancelled 0.000 Nucleated RBC % (auto) Cancelled 0.0 PT INR APTT VBG pH VBG pCO2 VBG pO2 VBG HCO3 VBG O2 Saturation VBG Base Excess Sodium Cancelled Potassium Cancelled Chloride Cancelled Carbon Dioxide Cancelled Anion Gap Cancelled BUN Cancelled Creatinine Cancelled Estim Creat Clear Calc Cancelled Estimated GFR Cancelled POC Glucose Random Glucose Cancelled Calcium Cancelled Phosphorus Magnesium Total Bilirubin Direct Bilirubin AST ALT Alkaline Phosphatase B-Natriuretic Peptide Total Protein Albumin 12/19/21 12/19/21 12/19/21 05:53 05:53 05:53 WBC RBC Hgb Hct MCV MCH MCHC RDW Plt Count MPV Immature Gran % (Auto) Neut % (Auto) Lymph % (Auto) [place] % (Auto) Eos % (Auto) Baso % (Auto) Lymph # (Auto) [place] # (Auto) Eos # (Auto) Baso # (Auto) Abs Immat Gran (auto) Absolute Neuts (auto) Absolute Nucleated RBC Nucleated RBC % (auto) PT 26.6 H INR 2.3 H APTT 41.3 H VBG pH VBG pCO2 VBG pO2 VBG HCO3 VBG O2 Saturation VBG Base Excess Sodium 147 H Potassium 3.4 Chloride 106 Carbon Dioxide 36 H Anion Gap 8 L BUN 9 Creatinine 0.61 Estim Creat Clear Calc 134.8 Estimated GFR > 60 POC Glucose Random Glucose 174 H Calcium 8.2 L Phosphorus 2.7 Magnesium 2.1 Total Bilirubin 0.7 Direct Bilirubin 0.4 AST 21 ALT 24 Alkaline Phosphatase 60 B-Natriuretic Peptide 112 H Total Protein 5.2 L Albumin 2.7 L 12/19/21 12/19/21 06:00 07:14 WBC RBC Hgb Hct MCV MCH MCHC RDW Plt Count MPV Immature Gran % (Auto) Neut % (Auto) Lymph % (Auto) [place] % (Auto) Eos % (Auto) Baso % (Auto) Lymph # (Auto) [place] # (Auto) Eos # (Auto) Baso # (Auto) Abs Immat Gran (auto) Absolute Neuts (auto) Absolute Nucleated RBC Nucleated RBC % (auto) PT INR APTT VBG pH 7.45 H VBG pCO2 58 VBG pO2 62 VBG HCO3 41 H VBG O2 Saturation 88.0 VBG Base Excess 15.2 Sodium Potassium Chloride Carbon Dioxide Anion Gap BUN Creatinine Estim Creat Clear Calc Estimated GFR POC Glucose 154 H Random Glucose Calcium Phosphorus Magnesium Total Bilirubin Direct Bilirubin AST ALT Alkaline Phosphatase B-Natriuretic Peptide Total Protein Albumin Progress Note: A&P Assessment and plan (1) Atrial fibrillation with RVR: Status: Acute (2) Acute on chronic diastolic (congestive) heart failure: Status: Acute Plan On telemetry with, she is in atrial fibrillation with controlled rate in the 80s and 90s. Complicated hospitalization course reviewed with intubations and extubations, angioedema, psychiatric issues among others. At this time, she is on beta-blockers at metoprolol as well as digoxin. Rate seems reasonable at about 90/Min at this time. Previously, it was higher at low 100s. She is also on Eliquis for anticoagulation. Check Dig level. With regard to question of congestive heart failure, it seems that she has received Lasix drip but at this time on oral hydrochlorothiazide. Clinically, difficult to assess mainly due to body habitus and comorbidities. Her cardiac BNP today's only 112. 3 days ago, it was for 433. There is also issue of hypernatremia. Hence, it seems she is on HCTZ per renal. Echocardiogram with preserved LVEF, 60-65% , small pericardial effusion and otherwise unremarkable. Fall Risk Details Current Medications: Current Medications Acetaminophen (Acetaminophen 325 Mg Tablet) 650 mg PO Q6H PRN PRN Reason: Fever Last Admin: 12/17/21 21:00 Dose: 650 mg Documented by: Apixaban (Apixaban 5 Mg Tablet) 5 mg PO BID [facility] Last Admin: 12/19/21 08:41 Dose: 5 mg Documented by: Atorvastatin Calcium (Atorvastatin Calcium 10 Mg Tablet) 10 mg PO DAILY [facility] Last Admin: 12/19/21 08:41 Dose: 10 mg Documented by: Digoxin (Digoxin 0.25 Mg Tablet) 0.25 mg PO DAILY [facility] Last Admin: 12/19/21 08:41 Dose: 0.25 mg Documented by: Hydrochlorothiazide (Hydrochlorothiazide 25 Mg Tablet) 25 mg PO DAILY [facility]; Protocol Stop: 12/20/21 09:01 Last Admin: 12/19/21 08:41 Dose: 25 mg Documented by: Dextrose (D5w) 1,000 mls @ 75 mls/hr IVCONT .[id number] [facility] Last Admin: 12/19/21 03:17 Dose: 75 mls/hr Documented by: Insulin Human Lispro (Insulin Lispro 100 Unit/Ml 3 Ml Vial) 0 unit SUBCUT QIDACHS [facility]; Protocol Last Admin: 12/19/21 08:41 Dose: 4 unit Documented by: Metoprolol Tartrate (Metoprolol Tartrate 25 Mg Tablet) 75 mg PO BID [facility]; Protocol Last Admin: 12/19/21 08:41 Dose: 75 mg Documented by: Morphine Sulfate (Morphine Sulfate 2 Mg/Ml Cartridge) 1 mg IVPUSH Q4H PRN; P rotocol PRN Reason: pain/SOB Last Admin: 12/18/21 03:25 Dose: 1 mg Documented by: Nystatin (Nystatin Powder 15 Gm Bottle) 1 appl TOPICAL TID [facility]; Protocol Last Admin: 12/19/21 08:42 Dose: 1 appl Documented by: Pharmacy Consult (Consult Rx Perform Med Rec) 1 each MISCELLANE ONCE PRN PRN Reason: Consult order Sodium Chloride (0.9 % Sodium Chloride Flush 3 Ml Syringe) 3 ml IVFLUSH QSHIFT [facility] Last Admin: 12/19/21 08:42 Dose: 3 ml Documented by: Spironolactone (Spironolactone 25 Mg Tablet) 25 mg PO DAILY [facility]; Protocol Last Admin: 12/19/21 08:41 Dose: 25 mg Documented by: Time Spent With Patient Time: Total time spent is greater than 50% in coordination of care (as documented) at patient's floor/unit and/or counseling patient: Time with patient: less than 15 minutes Progress Note: Quality Stroke Does the patient have a stroke diagnosis?: No Procedures Date of Service Date of Service: 12/19/21
[2021-12-19 11:44] LABS: Glucose, Whole Blood 163 mg/dL (60-115)
--- NOTE | 2021-12-19 13:01 | P.PNNP_ITS ---
Subjective Subjective Date of Service: 12/19/21 Principal diagnosis: dysnatremia, hypervol Interval history: f/u on hypernatremia, underlying respiratory issues...afib, decub ulcer, underlying psychiatric issues. She is more alert today and breathing easy Na is better Physical Exam Verdana 4l Vital Signs: Verdana 4d Verdana 4d Vital Signs: Verdana 4d Verdana 4Bd Last Vital Signs Verdana 4d Dragger Out New 4d Dragger Out New 4d Temp 98.5 F 12/19/21 10:53 Dragger Out New 4d Pulse 95 12/19/21 10:53 Dragger Out New 4d Resp 93 H 12/19/21 11:50 BP 146/66 H 12/19/21 10:53 Pulse Ox 92 12/19/21 10:53 Oxygen Flow Rate 30 12/02/21 00:00 BMI result Body Mass Index 54.4 Const General:?comfortable HENMT Other: Unremarkable Neck Neck:?Yes normal visual inspection Chest Chest palpation & inspection:?normal inspection of the chest Resp Other: Difficult to auscultate and limited because of her body habitus as well as positioning.? Possibly diminished breath sounds. Cardio Palpation:?normal PMI Heart sounds:?S1 normal heart sound present, S2 normal heart sound present, no gallops, no murmurs and no rubs GI Palpation (GI):?Soft to palpation Back/Spine/Pelvis Other: unremarkable Skin Lesions:?other Neuro General:?other Extrem General:?Yes other Psych Mental Status:?other Objective Data Labs CBC & Chem 7: 12/19/21 05:53 12/19/21 05:53 Labs: Laboratory Results - last 24 hr 12/18/21 12/18/21 12/19/21 16:25 20:16 05:53 WBC Cancelled RBC Cancelled Hgb Cancelled Hct Cancelled MCV Cancelled MCH Cancelled MCHC Cancelled RDW Cancelled Plt Count Cancelled MPV Cancelled Immature Gran % (Auto) Neut % (Auto) Lymph % (Auto) [place] % (Auto) Eos % (Auto) Baso % (Auto) Lymph # (Auto) [place] # (Auto) Eos # (Auto) Baso # (Auto) Abs Immat Gran (auto) Absolute Neuts (auto) Absolute Nucleated RBC Cancelled Nucleated RBC % (auto) Cancelled PT INR APTT VBG pH VBG pCO2 VBG pO2 VBG HCO3 VBG O2 Saturation VBG Base Excess Sodium Potassium Chloride Carbon Dioxide Anion Gap BUN Creatinine Estim Creat Clear Calc Estimated GFR POC Glucose 208 H 153 H Random Glucose Calcium Phosphorus Magnesium Total Bilirubin Direct Bilirubin AST ALT Alkaline Phosphatase B-Natriuretic Peptide Total Protein Albumin 12/19/21 12/19/21 12/19/21 05:53 05:53 05:53 WBC 11.0 H RBC 4.26 Hgb 9.0 L Hct 32.4 L MCV 76.1 L MCH 21.1 L MCHC 27.8 L RDW 29.3 H Plt Count 488 H MPV 9.4 Immature Gran % (Auto) 0.6 H Neut % (Auto) 79.9 H Lymph % (Auto) 11.5 L [place] % (Auto) 4.4 Eos % (Auto) 3.1 Baso % (Auto) 0.5 Lymph # (Auto) 1.3 [place] # (Auto) 0.5 Eos # (Auto) 0.3 Baso # (Auto) 0.1 Abs Immat Gran (auto) 0.07 H Absolute Neuts (auto) 8.8 H Absolute Nucleated RBC 0.000 Nucleated RBC % (auto) 0.0 PT 26.6 H INR 2.3 H APTT 41.3 H VBG pH VBG pCO2 VBG pO2 VBG HCO3 VBG O2 Saturation VBG Base Excess Sodium Cancelled Potassium Cancelled Chloride Cancelled Carbon Dioxide Cancelled Anion Gap Cancelled BUN Cancelled Creatinine Cancelled Estim Creat Clear Calc Cancelled Estimated GFR Cancelled POC Glucose Random Glucose Cancelled Calcium Cancelled Phosphorus Magnesium Total Bilirubin Direct Bilirubin AST ALT Alkaline Phosphatase B-Natriuretic Peptide Total Protein Albumin 12/19/21 12/19/21 12/19/21 05:53 05:53 06:00 WBC RBC Hgb Hct MCV MCH MCHC RDW Plt Count MPV Immature Gran % (Auto) Neut % (Auto) Lymph % (Auto) [place] % (Auto) Eos % (Auto) Baso % (Auto) Lymph # (Auto) [place] # (Auto) Eos # (Auto) Baso # (Auto) Abs Immat Gran (auto) Absolute Neuts (auto) Absolute Nucleated RBC Nucleated RBC % (auto) PT INR APTT VBG pH 7.45 H VBG pCO2 58 VBG pO2 62 VBG HCO3 41 H VBG O2 Saturation 88.0 VBG Base Excess 15.2 Sodium 147 H Potassium 3.4 Chloride 106 Carbon Dioxide 36 H Anion Gap 8 L BUN 9 Creatinine 0.61 Estim Creat Clear Calc 134.8 Estimated GFR > 60 POC Glucose Random Glucose 174 H Calcium 8.2 L Phosphorus 2.7 Magnesium 2.1 Total Bilirubin 0.7 Direct Bilirubin 0.4 AST 21 ALT 24 Alkaline Phosphatase 60 B-Natriuretic Peptide 112 H Total Protein 5.2 L Albumin 2.7 L 12/19/21 12/19/21 07:14 10:52 WBC RBC Hgb Hct MCV MCH MCHC RDW Plt Count MPV Immature Gran % (Auto) Neut % (Auto) Lymph % (Auto) [place] % (Auto) Eos % (Auto) Baso % (Auto) Lymph # (Auto) [place] # (Auto) Eos # (Auto) Baso # (Auto) Abs Immat Gran (auto) Absolute Neuts (auto) Absolute Nucleated RBC Nucleated RBC % (auto) PT INR APTT VBG pH VBG pCO2 VBG pO2 VBG HCO3 VBG O2 Saturation VBG Base Excess Sodium Potassium Chloride Carbon Dioxide Anion Gap BUN Creatinine Estim Creat Clear Calc Estimated GFR POC Glucose 154 H 163 H Random Glucose Calcium Phosphorus Magnesium Total Bilirubin Direct Bilirubin AST ALT Alkaline Phosphatase B-Natriuretic Peptide Total Protein Albumin Microbiology Microbiology Results: Microbiology 12/11/21 19:58 Blood - Venous Blood Culture - Final No growth after 5 days. 12/11/21 19:58 Blood - Venous Blood Culture - Final No growth after 5 days. 12/12/21 02:35 Urine Catheterized - Arias Catheter Urine Culture - Final No growth. 12/08/21 15:40 Bronch Lll Gram Stain - Final 12/08/21 15:40 Bronch Lll Routine Culture - Final No growth after 2 days 12/05/21 21:20 Blood - Venous Blood Culture - Final No growth after 5 days. 12/05/21 21:20 Blood - Venous Blood Culture - Final No growth after 5 days. 12/08/21 Unknown Buttock Right Gram Stain - Final 12/08/21 Unknown Buttock Right Routine Culture - Final 12/06/21 20:12 Sputum - Suctioned Gram Stain - Final 12/06/21 20:12 Sputum - Suctioned Sputum Culture - Final 12/06/21 18:16 Urine Catheterized - Arias Catheter Urine Culture - Final No growth. 11/28/21 09:32 Sputum - Suctioned Gram Stain - Final 11/28/21 09:32 Sputum - Suctioned Sputum Culture - Final Kimberly albicans 11/25/21 01:47 Blood - Venous Blood Culture - Final No growth after 5 days. 11/25/21 01:42 Blood - Venous Blood Culture - Final No growth after 5 days. Procedures Date of Service Date of Service: 12/19/21 Assessment & Plan Assessment and plan (1) Hypernatremia: Status: Acute Assessment and Plan: 66-year-old female with past medical history of alcoholic liver cirrhosis, dementia, hyponatremia presents to the hospital with AFib with RVR Recurrent? H- Free water deficit + Loop diuretic use ]with Hypernatremia 70? ml of? D5W Check Na in AM Can use thiazide diuretic for SOB OnHCTZ 25 mg/ Pt also on Aldactone (2) Acute on chronic diastolic (congestive) heart failure: Status: Acute Time Spent With Patient Time: Total time spent is greater than 50% in coordination of care (as documented) at patient's floor/unit and/or counseling patient: Progress Note: Quality Stroke Does the patient have a stroke diagnosis?: No
[2021-12-19] MEDS: Morphine Sulfate 2 MG/ML CARTRIDGE 1 MG IVPUSH ×3 (14:26→22:08)
[2021-12-19 16:06] LABS: Glucose, Whole Blood 146 mg/dL (60-115)
[2021-12-19 20:00] LABS: Glucose, Whole Blood 243 mg/dL (60-115)
[2021-12-19] MEDS: Acetaminophen 325 MG TABLET 650 MG PO (22:07)
[2021-12-20] VITALS (9 sets, daily range): BP systolic 120–168; BP diastolic 59–80; PULSE 76–95; RESP 18–31; TEMP 36.1–36.9; O2SAT 90–95
[2021-12-20] MEDS: Dextrose 5 % 1,000 ML 75 ML IVCONT (05:39)
[2021-12-20 06:20] LABS: Mean Corpuscular Hemoglobin 21.4 pg (27.0-33.0); Mean Corpuscular Volume 75.1 fL (80.0-98.0); PLT CLUMP 1; SCAN SMEAR FLAG 1
[2021-12-20 06:22] LABS: Basophils Absolute Auto 0.1 X10*3/uL (0.0-0.2); Basophils Percent Auto 0.5 % (0-2); Eosinophils Absolute Auto 0.4 X10*3/uL (0.0-0.4); Eosinophils Percent Auto 3.6 % (0-4); Hematocrit 34.1 % (37.0-47.0); Hemoglobin 9.7 g/dl (12.0-16.0); Imm Gran Abs Auto 0.06 X10*3/uL (0.00-0.03); Imm Gran Pct Auto 0.5 % (0.0-0.4); Lymphocytes Absolute Auto 1.4 X10*3/uL (1.2-4.9); Lymphocytes Percent Auto 11.7 % (20-40); Mean Corpuscular HGB Conc 28.4 g/dl (31.0-35.0); Monocytes Absolute Auto 0.6 X10*3/uL (0.1-1.2); Monocytes Percent Auto 4.9 % (2-11); Neutrophils Absolute Auto 9.3 x10*3/uL (2.0-8.3); Neutrophils Percent Auto 78.8 % (45-73); Red Blood Count 4.54 X10*6/uL (4.20-5.50); Red Cell Distribution Width 28.9 % (11.0-16.0)
[2021-12-20 06:24] LABS: Venous Blood Gas Refer to POC result
[2021-12-20 06:24] LABS: VBG Base Excess 15.5 mmol/L; VBG HCO3 41 mmol/L (22-26); VBG pCO2 53 mmHg; VBG pH 7.49 (7.32-7.43); VBG pO2 56 mmHg
[2021-12-20 06:25] LABS: INTERNATIONAL NORM RATIO 2.2 (0.9-1.1); Prothrombin Time 24.9 SEC (9.9-13.0)
[2021-12-20 06:27] LABS: Partial Thromboplastin Time 38.2 SEC (24.1-38.0)
[2021-12-20 06:29] LABS: MANUAL DIFF FLAG NO; White Blood Count 11.8 X10*3/uL (4.8-10.8)
[2021-12-20 06:45] LABS: Platelet Count 317 X10*3/uL (160-400)
[2021-12-20 06:48] LABS: B Type Natriuretic Peptide 124 pg/mL (<100)
[2021-12-20 07:06] LABS: Alanine Aminotransferase 20 U/L (0-31); Albumin Level 2.6 g/dL (3.5-5.0); Alkaline Phosphatase 64 U/L (39-117); Anion Gap 9 (12-20); Aspartate Amino Transferase 16 U/L (5-31); Bilirubin Direct 0.4 mg/dL (0.0-0.5); Bilirubin Total 0.8 mg/dL (0.0-1.0); Blood Urea Nitrogen 10 mg/dL (9-16); Calcium 8.4 mg/dL (8.4-10.2); Carbon Dioxide 37 mmol/L (22-29); Chloride 99 mmol/L (96-108); Creatinine Clr Calc Pharmacy 149.5; Estimated Glomerular Filt Rate > 60; Glucose Random 169 mg/dL (60-115); Phosphorus 2.9 mg/dL (2.7-4.5); Potassium 3.3 mmol/L (3.3-5.1); Sodium 142 mmol/L (135-145); Total Protein 5.1 g/dL (6.5-8.0)
[2021-12-20 07:22] LABS: Glucose, Whole Blood 172 mg/dL (60-115)
[2021-12-20] MEDS: Insulin Lispro 100 UNIT/ML 3 ML VIAL SUBCUT ×2 (08:23→12:36)
[2021-12-20] MEDS: Metoprolol Tartrate 25 MG TABLET 75 MG PO ×2 (08:23→21:54)
[2021-12-20] MEDS: Digoxin 0.25 MG TABLET PO (08:24)
[2021-12-20] MEDS: Spironolactone 25 MG TABLET PO (08:24)
[2021-12-20] MEDS: Atorvastatin Calcium 10 MG TABLET PO (08:25)
[2021-12-20] MEDS: Apixaban 5 MG TABLET PO ×2 (08:25→21:54)
[2021-12-20] MEDS: hydroCHLOROthiazide 25 MG TABLET PO (08:26)
[2021-12-20] MEDS: Nystatin Powder 15 GM BOTTLE 1 APPL TOPICAL ×3 (08:27→22:21)
[2021-12-20] MEDS: 0.9 % Sodium Chloride Flush 3 ML SYRINGE IVFLUSH ×2 (08:27→17:10)
--- NOTE | 2021-12-20 10:33 | P.PNIM_ITS ---
Subjective Subjective Date of Service: 12/20/21 Interval History: f/u on hypernatremia, underlying respiratory issues...afib, decub ulcer, underlying psychiatric issues. She is more alert today and breathing easy Na is normal Review of Systems no sob, more alert, no confusion Physical Exam Verdana 4l Vital Signs: Verdana 4d Verdana 4d Vital Signs: Verdana 4d Verdana 4Bd Last Vital Signs Verdana 4d Gold Leaf Gilder New 4d Gold Leaf Gilder New 4d Temp 97.9 F 12/20/21 07:58 Gold Leaf Gilder New 4d Pulse 94 12/20/21 07:58 Gold Leaf Gilder New 4d Resp 20 12/20/21 07:58 BP 130/73 12/20/21 07:58 Pulse Ox 95 12/20/21 07:58 Oxygen Flow Rate 30 12/02/21 00:00 BMI result Body Mass Index 54.4 Const: Other: General: AO X 3, no acute distress Resp: CTA bilateral CVS: S1,S2,RRR GI: +BS, NT, no distention Skin: No rash, decub ulcer as in the picture Neuro: motor grossly intact Psych: appropriate affect Objective Data Active Medications Acetaminophen (Acetaminophen 325 Mg Tablet) 650 mg PO Q6H PRN PRN Reason: Fever Last Admin: 12/19/21 22:07 Dose: 650 mg Documented by: GORAN Apixaban (Apixaban 5 Mg Tablet) 5 mg PO BID [facility] Last Admin: 12/20/21 08:25 Dose: 5 mg Documented by: MABLE Atorvastatin Calcium (Atorvastatin Calcium 10 Mg Tablet) 10 mg PO DAILY [facility] Last Admin: 12/20/21 08:25 Dose: 10 mg Documented by: MABLE Digoxin (Digoxin 0.25 Mg Tablet) 0.25 mg PO DAILY [facility] Last Admin: 12/20/21 08:24 Dose: 0.25 mg Documented by: MABLE Dextrose (D5w) 1,000 mls @ 75 mls/hr IVCONT .[id number] [facility] Last Admin: 12/20/21 05:39 Dose: 75 mls/hr Documented by: GORAN Insulin Human Lispro (Insulin Lispro 100 Unit/Ml 3 Ml Vial) 0 unit SUBCUT QIDACHS [facility]; Protocol Last Admin: 12/20/21 08:23 Dose: 4 unit Documented by: MABLE Metoprolol Tartrate (Metoprolol Tartrate 25 Mg Tablet) 75 mg PO BID [facility]; Protocol Last Admin: 12/20/21 08:23 Dose: 75 mg Documented by: MABLE Morphine Sulfate (Morphine Sulfate 2 Mg/Ml Cartridge) 1 mg IVPUSH Q4H PRN; Protocol PRN Reason: pain/SOB Last Admin: 12/19/21 22:08 Dose: 1 mg Documented by: GORAN Nystatin (Nystatin Powder 15 Gm Bottle) 1 appl TOPICAL TID [facility]; Protocol Last Admin: 12/20/21 08:27 Dose: 1 appl Documented by: MABLE Pharmacy Consult (Consult Rx Perform Med Rec) 1 each MISCELLANE ONCE PRN PRN Reason: Consult order Sodium Chloride (0.9 % Sodium Chloride Flush 3 Ml Syringe) 3 ml IVFLUSH QSHIFT [facility] Last Admin: 12/20/21 08:27 Dose: 3 ml Documented by: MABLE Spironolactone (Spironolactone 25 Mg Tablet) 25 mg PO DAILY [facility]; Protocol Last Admin: 12/20/21 08:24 Dose: 25 mg Documented by: MABLE Labs CBC & Chem 7: 12/20/21 06:10 12/20/21 06:10 Labs: Laboratory Results - last 24 hr 12/19/21 12/19/21 12/19/21 10:52 15:57 19:48 MCV MCH MCHC RDW Plt Count MPV Immature Gran % (Auto) Neut % (Auto) Lymph % (Auto) [facility] % (Auto) Eos % (Auto) Baso % (Auto) Lymph # (Auto) [facility] # (Auto) Eos # (Auto) Baso # (Auto) Abs Immat Gran (auto) Absolute Neuts (auto) Absolute Nucleated RBC Nucleated RBC % (auto) PT INR APTT VBG pH VBG pCO2 VBG pO2 VBG HCO3 VBG O2 Saturation VBG Base Excess Anion Gap Estim Creat Clear Calc Estimated GFR POC Glucose 163 H 146 H 243 H Random Glucose Calcium Phosphorus Total Bilirubin Direct Bilirubin AST ALT Alkaline Phosphatase B-Natriuretic Peptide Total Protein Albumin 12/20/21 12/20/21 12/20/21 06:10 06:10 06:10 MCV 75.1 L MCH 21.4 L MCHC 28.4 L RDW 28.9 H Plt Count 317 D MPV 10.0 Immature Gran % (Auto) 0.5 H Neut % (Auto) 78.8 H Lymph % (Auto) 11.7 L [facility] % (Auto) 4.9 Eos % (Auto) 3.6 Baso % (Auto) 0.5 Lymph # (Auto) 1.4 [facility] # (Auto) 0.6 Eos # (Auto) 0.4 Baso # (Auto) 0.1 Abs Immat Gran (auto) 0.06 H Absolute Neuts (auto) 9.3 H Absolute Nucleated RBC 0.000 Nucleated RBC % (auto) 0.0 PT 24.9 H INR 2.2 H APTT 38.2 H VBG pH VBG pCO2 VBG pO2 VBG HCO3 VBG O2 Saturation VBG Base Excess Anion Gap 9 L Estim Creat Clear Calc 149.5 Estimated GFR > 60 POC Glucose Random Glucose 169 H Calcium 8.4 Phosphorus 2.9 Total Bilirubin 0.8 Direct Bilirubin 0.4 AST 16 ALT 20 Alkaline Phosphatase 64 B-Natriuretic Peptide Total Protein 5.1 L Albumin 2.6 L 12/20/21 12/20/21 12/20/21 06:10 06:18 07:14 MCV MCH MCHC RDW Plt Count MPV Immature Gran % (Auto) Neut % (Auto) Lymph % (Auto) [facility] % (Auto) Eos % (Auto) Baso % (Auto) Lymph # (Auto) [facility] # (Auto) Eos # (Auto) Baso # (Auto) Abs Immat Gran (auto) Absolute Neuts (auto) Absolute Nucleated RBC Nucleated RBC % (auto) PT INR APTT VBG pH 7.49 H VBG pCO2 53 VBG pO2 56 VBG HCO3 41 H VBG O2 Saturation 85.0 VBG Base Excess 15.5 Anion Gap Estim Creat Clear Calc Estimated GFR POC Glucose 172 H Random Glucose Calcium Phosphorus Total Bilirubin Direct Bilirubin AST ALT Alkaline Phosphatase B-Natriuretic Peptide 124 H Total Protein Albumin Assessment and Plan (1) Acute encephalopathy: Status: Acute (2) Acute respiratory failure: Status: Acute Plan ? 66-year-old lady with underlying alcoholic cirrhosis, dementia, schizoaffective disorder a admitted with acute? 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 On 12/06 she again developped respiratory failure nearly obtunded with no gag reflex and was transfered yet again to ICU and again was intubated and mechanically ventilated and extubated again and transfer back to medical floor on 12/15 #Acute respiratory failure secondary to angioedema requiring intubation and ventilatory support for airway protection intubated on 11/27,? extubated 11/29/2021, reintubated on 12/06 and extubated 12/13. Respiratory failure of of multifactorial etiology including COPD, possible pneumonia and heart failure and Pneumonia. Respiratory status is much better now, she is prone to fluid overload # AFib with RVR--variable rate, but overall seems better -Rate is better, continue Metoprolol 75 bid, digoxin, check level #Chronic diastolic heart failure--she seems compensated, she was on IV diuretic in ICU including Lasix drip, her edema looks better but the record shows that she has only diuresed 1300 ml total. Will follow clinically-- #Hyponatremia--resolved, now hypernatremia.. Resolved #HypERnatremia--sodium is normal. Stop d5 #COPD? exacerbated by pneumonia -Bronchodilators, steroid and has completed course of Zosyn and Unassyn for pneumonia, fever resolved #DM II--SSI, off Lantus sugars on low side #. Schizoaffective disorder--She was on Haldol PRN but all meds dc since ICU #Metabolic Alkalosis--Resolved #HLD--Lipitor #leukocytosis--d/t steroid,, resolved #PT eval and plan to dischcarge soon #Decub ulcer as noted in picture and evaluated by surgery with the following remarks:Large sacral decubitus ulcer with necrotic skin and subc, excised at the bedside today.? Viable subcut. noted below.? Wounds redressed with sponge dressing.? Keep all pressure off the wound, roll side to side, air mattress.? Change dressings daily and prn.? Reevauation with wound care nurse--Dr. Jiménez. Wound RN to follow #Malnutrition--speech/nutrition eval today anticipatated dc soon Quality Stroke Does the patient have a stroke diagnosis?: No VTE Prior VTE?: No VTE Risk Level:: Medical - moderate - high VTE Device Contraindication: Treatment Not Indicated VTE Drug Contraindication: N/A - Med Ordered
[2021-12-20] MEDS: Morphine Sulfate 2 MG/ML CARTRIDGE 1 MG IVPUSH ×2 (10:54→21:58)
--- NOTE | 2021-12-20 10:57 | MHC.CLN ---
F/U PO INTAKE REMAINS VERY POOR PT RECEIVED IVF DIET RX: PUREED WITH HT LIQ-APPROPRIATE ENSURE BID IN PLACE PROVIDES 700KCALS, 40G PROTEIN BUT PT NOT ACCEPTING VERY MUCH PO AT THIS TIME RECOMMEND ADDING LELAND TO PROMOTE WOUND HEALING STRICT PO MONITORING
[2021-12-20 11:13] LABS: Glucose, Whole Blood 152 mg/dL (60-115)
[2021-12-20 11:13] LABS: Glucose, Whole Blood 152 mg/dL (60-115)
--- NOTE | 2021-12-20 11:28 | P.PNNP_ITS ---
Subjective Subjective Date of Service: 12/20/21 Principal diagnosis: dysnatremia, hypervol Interval history: Seen and examined, events noted Physical Exam Verdana 4l Vital Signs: Verdana 4d Verdana 4d Vital Signs: Verdana 4d Verdana 4Bd Last Vital Signs Verdana 4d Delivery Driver/Supervisor New 4d Delivery Driver/Supervisor New 4d Temp 97.9 F 12/20/21 07:58 Delivery Driver/Supervisor New 4d Pulse 94 12/20/21 07:58 Delivery Driver/Supervisor New 4d Resp 20 12/20/21 07:58 BP 130/73 12/20/21 07:58 Pulse Ox 95 12/20/21 07:58 Oxygen Flow Rate 30 12/02/21 00:00 BMI result Body Mass Index 54.4 Const: Other: looks very sick with RR 40, tachypnic rhnochi/wheezes RRR abd obses edema General: cooperative, no acute distress, alert, awake, lethargic (But follows commands) and other ( somnolent, arousable to painful stimuli, does not follow commands) Nutritional Appearance: obese Orientation/consciousness: patient oriented x3 and lethargic (But follows commands) Eyes: General: appearance normal, both eyes and all related structures Sclerae: sclerae normal Pupils: Equal, round and reactive pupils present EOM: EOMs intact bilaterally Neck: Neck: Yes normal visual inspection, Yes no lymphadenopathy, Yes trachea midline and Yes supple Chest: Chest palpation & inspection: normal inspection of the chest Resp: Effort & Inspection: normal respiratory effort and no respiratory distress Auscultation: clear to auscultation bilaterally, crackles (Bibasilar) and no wheezes Cardio: Palpation: normal PMI Rate: regular rate and tachycardic Rhythm: regular rhythm and abnormal rhythm irregularly irregular Heart sounds: S1 normal heart sound present, S2 normal heart sound present, no gallops, no murmurs and no rubs GI: Palpation (GI): Soft to palpation, nontender and Other GI palpation findings present ( Nontender) Auscultation: normal bowel sounds Skin: General skin exam: no rashes or lesions noted Lesions: other Wounds: wounds noted (buttock area,unstageable,no deep to bone) Neuro: General: patient oriented x3 Cranial nerves: Yes Equal, round and reactive pupils present and Yes Other cranial nerve findings present Cognition (Neuro): normal cognition Extrem: General: Yes normal to inspection, Yes no pedal edema, No clubbing, No cyanosis and Yes pedal edema (1+ bilateral) Psych: Mental Status: other Objective Data Labs CBC & Chem 7: 12/20/21 06:10 12/20/21 06:10 Labs: Laboratory Results - last 24 hr 12/19/21 12/19/21 12/19/21 10:52 15:57 19:48 WBC RBC Hgb Hct MCV MCH MCHC RDW Plt Count MPV Immature Gran % (Auto) Neut % (Auto) Lymph % (Auto) [place] % (Auto) Eos % (Auto) Baso % (Auto) Lymph # (Auto) [place] # (Auto) Eos # (Auto) Baso # (Auto) Abs Immat Gran (auto) Absolute Neuts (auto) Absolute Nucleated RBC Nucleated RBC % (auto) PT INR APTT VBG pH VBG pCO2 VBG pO2 VBG HCO3 VBG O2 Saturation VBG Base Excess Sodium Potassium Chloride Carbon Dioxide Anion Gap BUN Creatinine Estim Creat Clear Calc Estimated GFR POC Glucose 163 H 146 H 243 H Random Glucose Calcium Phosphorus Total Bilirubin Direct Bilirubin AST ALT Alkaline Phosphatase B-Natriuretic Peptide Total Protein Albumin 12/20/21 12/20/21 12/20/21 06:10 06:10 06:10 WBC 11.8 H RBC 4.54 Hgb 9.7 L Hct 34.1 L MCV 75.1 L MCH 21.4 L MCHC 28.4 L RDW 28.9 H Plt Count 317 D MPV 10.0 Immature Gran % (Auto) 0.5 H Neut % (Auto) 78.8 H Lymph % (Auto) 11.7 L [place] % (Auto) 4.9 Eos % (Auto) 3.6 Baso % (Auto) 0.5 Lymph # (Auto) 1.4 [place] # (Auto) 0.6 Eos # (Auto) 0.4 Baso # (Auto) 0.1 Abs Immat Gran (auto) 0.06 H Absolute Neuts (auto) 9.3 H Absolute Nucleated RBC 0.000 Nucleated RBC % (auto) 0.0 PT 24.9 H INR 2.2 H APTT 38.2 H VBG pH VBG pCO2 VBG pO2 VBG HCO3 VBG O2 Saturation VBG Base Excess Sodium 142 Potassium 3.3 Chloride 99 Carbon Dioxide 37 H Anion Gap 9 L BUN 10 Creatinine 0.55 Estim Creat Clear Calc 149.5 Estimated GFR > 60 POC Glucose Random Glucose 169 H Calcium 8.4 Phosphorus 2.9 Total Bilirubin 0.8 Direct Bilirubin 0.4 AST 16 ALT 20 Alkaline Phosphatase 64 B-Natriuretic Peptide Total Protein 5.1 L Albumin 2.6 L 12/20/21 12/20/21 12/20/21 06:10 06:18 07:14 WBC RBC Hgb Hct MCV MCH MCHC RDW Plt Count MPV Immature Gran % (Auto) Neut % (Auto) Lymph % (Auto) [place] % (Auto) Eos % (Auto) Baso % (Auto) Lymph # (Auto) [place] # (Auto) Eos # (Auto) Baso # (Auto) Abs Immat Gran (auto) Absolute Neuts (auto) Absolute Nucleated RBC Nucleated RBC % (auto) PT INR APTT VBG pH 7.49 H VBG pCO2 53 VBG pO2 56 VBG HCO3 41 H VBG O2 Saturation 85.0 VBG Base Excess 15.5 Sodium Potassium Chloride Carbon Dioxide Anion Gap BUN Creatinine Estim Creat Clear Calc Estimated GFR POC Glucose 172 H Random Glucose Calcium Phosphorus Total Bilirubin Direct Bilirubin AST ALT Alkaline Phosphatase B-Natriuretic Peptide 124 H Total Protein Albumin 12/20/21 12/20/21 10:51 10:56 WBC RBC Hgb Hct MCV MCH MCHC RDW Plt Count MPV Immature Gran % (Auto) Neut % (Auto) Lymph % (Auto) [place] % (Auto) Eos % (Auto) Baso % (Auto) Lymph # (Auto) [place] # (Auto) Eos # (Auto) Baso # (Auto) Abs Immat Gran (auto) Absolute Neuts (auto) Absolute Nucleated RBC Nucleated RBC % (auto) PT INR APTT VBG pH VBG pCO2 VBG pO2 VBG HCO3 VBG O2 Saturation VBG Base Excess Sodium Potassium Chloride Carbon Dioxide Anion Gap BUN Creatinine Estim Creat Clear Calc Estimated GFR POC Glucose 152 H 152 H Random Glucose Calcium Phosphorus Total Bilirubin Direct Bilirubin AST ALT Alkaline Phosphatase B-Natriuretic Peptide Total Protein Albumin Microbiology Microbiology Results: Microbiology 12/11/21 19:58 Blood - Venous Blood Culture - Final No growth after 5 days. 12/11/21 19:58 Blood - Venous Blood Culture - Final No growth after 5 days. 12/12/21 02:35 Urine Catheterized - Arias Catheter Urine Culture - Final No growth. 12/08/21 15:40 Bronch Lll Gram Stain - Final 12/08/21 15:40 Bronch Lll Routine Culture - Final No growth after 2 days 12/05/21 21:20 Blood - Venous Blood Culture - Final No growth after 5 days. 12/05/21 21:20 Blood - Venous Blood Culture - Final No growth after 5 days. 12/08/21 Unknown Buttock Right Gram Stain - Final 12/08/21 Unknown Buttock Right Routine Culture - Final 12/06/21 20:12 Sputum - Suctioned Gram Stain - Final 12/06/21 20:12 Sputum - Suctioned Sputum Culture - Final 12/06/21 18:16 Urine Catheterized - Arias Catheter Urine Culture - Final No growth. 11/28/21 09:32 Sputum - Suctioned Gram Stain - Final 11/28/21 09:32 Sputum - Suctioned Sputum Culture - Final Kimberly albicans 11/25/21 01:47 Blood - Venous Blood Culture - Final No growth after 5 days. 11/25/21 01:42 Blood - Venous Blood Culture - Final No growth after 5 days. Procedures Date of Service Date of Service: 12/20/21 Assessment & Plan Assessment and plan (1) Hypernatremia: Status: Acute Assessment and Plan: 66-year-old female with past medical history of alcoholic liver cirrhosis, dementia, hyponatremia presents to the hospital with AFib with RVR 1. HyperNa: stands corrected at this time 2. Incr HCO3: d/t ongoing diuresis as no mention of vomiting REC: check venous pH and will need to consider diamox short term (2) Acute on chronic diastolic (congestive) heart failure: Status: Acute Time Spent With Patient Time: Total time spent is greater than 50% in coordination of care (as documented) at patient's floor/unit and/or counseling patient: Progress Note: Quality Stroke Does the patient have a stroke diagnosis?: No
[2021-12-20 11:50] LABS: Digoxin 0.6 ng/mL (0.8-2.0)
[2021-12-20 12:26] LABS: VBG Base Excess 17.8 mmol/L; VBG HCO3 44 mmol/L (22-26); VBG pCO2 59 mmHg; VBG pH 7.47 (7.32-7.43); VBG pO2 47 mmHg
[2021-12-20 12:37] LABS: Venous Blood Gas Refer to POC result
--- NOTE | 2021-12-20 15:23 | MHC.CM.PN ---
per rounds md needs to check nutritional staus before pt can be dcd back to [facility]
--- NOTE | 2021-12-20 15:38 | MHC.SLORD ---
Speech Language Pathology Order Status: Patient recently discharged from [facility] on recommendation PUREED solids (NDD1)/HONEY THICK liquids. Another order for repeat bedside dysphagia evaluation placed this morning. RN approached FIRE CONTROL TECHNICIAN B on floor requesting patient to be re-evaluated for potential upgrade as patient has been refusing these consistencies. FIRE CONTROL TECHNICIAN B attempted to see patient- explained rationale of evaluation, offered several different food and drink items, but patient refused. Will re-attempt tomorrow morning.
[2021-12-20 16:16] LABS: Glucose, Whole Blood 111 mg/dL (60-115)
[2021-12-20] MEDS: Sodium Chloride 0.45 % 1,000 ML 80 ML IVCONT (17:06)
[2021-12-20 20:03] LABS: Glucose, Whole Blood 145 mg/dL (60-115)
[2021-12-21] VITALS (10 sets, daily range): BP systolic 119–176; BP diastolic 57–77; PULSE 67–89; RESP 18–31; TEMP 36.3–37; O2SAT 91–98; BMI 54.4
[2021-12-21] MEDS: 0.9 % Sodium Chloride Flush 3 ML SYRINGE IVFLUSH ×4 (00:13→21:51)
[2021-12-21] MEDS: Sodium Chloride 0.45 % 1,000 ML 80 ML IVCONT ×2 (05:54→18:05)
[2021-12-21 07:26] LABS: Glucose, Whole Blood 140 mg/dL (60-115)
--- NOTE | 2021-12-21 07:35 | PC.NURSE ---
Patient's mehta had minimal output overnight, bladder scanned for 523 ml . Hospitalist notified and ordered to irrigate; Mehta now draining dark yellow urine. 600 ml of urine in mehta bag after irrrigation. Will continue to monitor.
[2021-12-21] MEDS: Spironolactone 25 MG TABLET PO (09:00)
[2021-12-21] MEDS: Metoprolol Tartrate 25 MG TABLET 75 MG PO ×2 (09:00→21:50)
[2021-12-21] MEDS: Nystatin Powder 15 GM BOTTLE 1 APPL TOPICAL ×3 (09:01→21:51)
[2021-12-21] MEDS: Atorvastatin Calcium 10 MG TABLET PO (09:02)
[2021-12-21] MEDS: Digoxin 0.25 MG TABLET PO (09:02)
[2021-12-21] MEDS: Apixaban 5 MG TABLET PO ×2 (09:03→21:50)
[2021-12-21 11:01] LABS: Glucose, Whole Blood 277 mg/dL (60-115)
--- NOTE | 2021-12-21 11:04 | PC.NURSE ---
Skin/Wound assessment completed today. Patient has stage 3 to bilateral buttocks/coccyx. Triad applied to area covered with gauze and foam dressing. She has redness in her glen area, and groin. Barrier cream to glen area and interdry to groin and abdominal folds.
--- NOTE | 2021-12-21 11:55 | MHC.SL.SWA ---
Speech Pathologist Impression: Risk of Aspiration Oralpharyngeal Dysphagia Risk of Aspiration Due to: Poor PO Intake Hx of Recent Extubation Reduced Cognition Dysphasia Diet Status: Downgrade Liquid Consistency and Strategies for Safe Swallow: Liquid Intake Recommendation: Bowlegs Thick Liquid Intake Strategies: Small Sips No Straws Solid Food Consistency: Dietary Recommendations: Pureed (NDD1) Additional Modifications to Solid Foods: Recommend PUREED (NDD1) solids with UPGRADE to NECTAR THICK liquids, pills CRUSHED in PUREE. Patient requires 1:1 assistance feeding. Recommend strict aspiration precautions and close monitoring during meals. Liquid consistency upgraded in Diet orders by FULL STACK PHP DEVELOPER. FULL STACK PHP DEVELOPER will continue to follow. Oral Medication Intake: Crushed with Puree Compensatory Strategies and Precautions to be Taken for Safe Swallow: Sitting Upright (90 deg) No Straw Liquids from Spoon Alternate Liquids/Solids Oral Check Supervision While Eating and Drinking for Safe Swallow: Total Supervision (1:1) Foods to Avoid: Swallowing Recommended Treatments: Compens. Strategy Educat. Recommendation for Speech: Inpatient Speech Therapy Comment: Pt seen this a.m. for re-assessment of swallow. Pt continues to have open mouth breathing evident. Pt has had poor P.O. intake, MD requested re-eval to hopefully advance diet. Pt denied eating Breakfast this a.m. Pt was offered thickened juice, but it was declined. She accepted spoonful of puree (pudding), and had mild delay of oral phase, and delay initiating swallow w/ reduced laryngeal transit on swallow. Pt is edentulous. Pt had Ensure at bedside, and accepted by tsp. Pt protrudes tongue when food/liquid is presented, but then closed lips on spoon and stripped spoon. Pt had mild delay initiating swallow, no clinical signs of aspiration. Pt accepted two tsps then requested that trials stop. Recommend UPGRADE of Diet to NECTAR THICK liquids continue w/PUREED (NDD1) Solids. FULL STACK PHP DEVELOPER entered upgrade in diet orders for liquid consistencies. Pt will need full assist for all meals w/close supervision for signs of aspiration, periodic confirmation of swallow. Pt may need more frequent smaller meals if endurance for eating continues to be limited. FULL STACK PHP DEVELOPER will continue to follow. Frequency/Duration: M-F Date Range for Service Req: Timeline to reassess: Shield Operator Clinican/Clinical Fellow: No Supervisory Statement: I have reviewed and agree with the student/clinical fellow's documentation: N/A Speech Language Pathologist: Gayathri Pollard M.A., [facility]-FULL STACK PHP DEVELOPER
[2021-12-21] MEDS: Insulin Lispro 100 UNIT/ML 3 ML VIAL SUBCUT (12:38)
--- NOTE | 2021-12-21 15:11 | HO.PM.IMPN ---
Subjective Subjective Date of Service: 12/22/21 Interval History: f/u on hypernatremia, underlying respiratory issues...afib, decub ulcer, underlying psychiatric? issues. Review of Systems no sob, more alert, no confusion Physical Exam Vital Signs: Vital Signs: Last Vital Signs Temp 98.6 F 12/21/21 11:37 Pulse 78 12/21/21 11:37 Resp 18 12/21/21 11:39 BP 146/63 H 12/21/21 11:37 Pulse Ox 95 12/21/21 11:37 Oxygen Flow Rate 30 12/02/21 00:00 BMI result Body Mass Index 54.4 General: AO X 3, no acute distress Resp:? CTA bilateral CVS: S1,S2,RRR GI: +BS, NT, no distention Skin: No rash, decub ulcer as in the picture( yesterday-s/p debridement yesterday) Neuro:? motor grossly intact Psych: appropriate affect Objective Data Active Medications Acetaminophen (Acetaminophen 325 Mg Tablet) 650 mg PO Q6H PRN PRN Reason: Fever Last Admin: 12/19/21 22:07 Dose: 650 mg Documented by: GORAN Apixaban (Apixaban 5 Mg Tablet) 5 mg PO BID [facility] Last Admin: 12/21/21 09:03 Dose: 5 mg Documented by: LATOSHA Atorvastatin Calcium (Atorvastatin Calcium 10 Mg Tablet) 10 mg PO DAILY [facility] Last Admin: 12/21/21 09:02 Dose: 10 mg Documented by: LATOSHA Digoxin (Digoxin 0.25 Mg Tablet) 0.25 mg PO DAILY [facility] Last Admin: 12/21/21 09:02 Dose: 0.25 mg Documented by: LATOSHA Sodium Chloride () 1,000 mls @ 80 mls/hr IVCONT .[id number] [facility] Last Admin: 12/21/21 05:54 Dose: 80 mls/hr Documented by: JONATAN Insulin Human Lispro (Insulin Lispro 100 Unit/Ml 3 Ml Vial) 0 unit SUBCUT QIDACHS [facility]; Protocol Last Admin: 12/21/21 12:38 Dose: 12 unit Documented by: LATOSHA Metoprolol Tartrate (Metoprolol Tartrate 25 Mg Tablet) 75 mg PO BID [facility]; Protocol Last Admin: 12/21/21 09:00 Dose: 75 mg Documented by: LATOSHA Morphine Sulfate (Morphine Sulfate 2 Mg/Ml Cartridge) 1 mg IVPUSH Q4H PRN; Protocol PRN Reason: pain/SOB Last Admin: 12/20/21 21:58 Dose: 1 mg Documented by: JONATAN Nystatin (Nystatin Powder 15 Gm Bottle) 1 appl TOPICAL TID GINGER; Protocol Last Admin: 12/21/21 09:01 Dose: 1 appl Documented by: LATOSHA Pharmacy Consult (Consult Rx Perform Med Rec) 1 each MISCELLANE ONCE PRN PRN Reason: Consult order Sodium Chloride (0.9 % Sodium Chloride Flush 3 Ml Syringe) 3 ml IVFLUSH QSHIFT [facility] Last Admin: 12/21/21 09:03 Dose: 3 ml Documented by: LATOSHA Spironolactone (Spironolactone 25 Mg Tablet) 25 mg PO DAILY [facility]; Protocol Last Admin: 12/21/21 09:00 Dose: 25 mg Documented by: LATOSHA Labs CBC & Chem 7: 12/20/21 06:10 12/22/21 06:17 Labs: Laboratory Results - last 24 hr 12/20/21 12/20/21 12/21/21 16:02 19:28 07:18 POC Glucose 111 145 H 140 H 12/21/21 10:52 POC Glucose 277 H Assessment and Plan (1) Acute on chronic diastolic (congestive) heart failure: Status: Acute (2) Sacral decubitus ulcer: Status: Acute Plan 66-year-old lady with underlying alcoholic cirrhosis, dementia, schizoaffective disorder a admitted with acute? 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 On 12/06 she again developped respiratory failure nearly obtunded with no gag reflex and was transfered yet again to ICU and again was intubated and mechanically ventilated? and extubated again and transfer back to medical floor on 12/15 1.Acute respiratory failure secondary to angioedema requiring intubation and ventilatory support for airway protection intubated on 11/27,? extubated 11/29/2021, reintubated on 12/06 and extubated 12/13. Respiratory failure of of multifactorial etiology including COPD,? possible pneumonia and heart failure and Pneumonia. Respiratory status is much better now, she is prone to fluid overload 2.AFib with RVR--variable rate, but overall seems better -Rate is better, continue Metoprolol 75 bid, digoxin, check level: 0.6 (last 12/19/21) 3.Chronic diastolic heart failure--she seems compensated, she was on IV diuretic in ICU including Lasix drip, her edema looks better but the record shows that she has only diuresed 1300 ml total. ef : 60-65% limited echo 4.Hyponatremia--resolved, now hypernatremia.. Resolved 5.Hypernatremia--sodium is normal. off d5. 6.COPD? exacerbated by pneumonia-Bronchodilators, steroid and has completed course of Zosyn and? Unassyn for pneumonia, fever resolved 7.DM II--SSI, off Lantus sugars on low side 8. Schizoaffective disorder--She was on Haldol PRN but all meds dc since ICU 9.Metabolic Alkalosis--Resolved 10.HLD--Lipitor 11.leukocytosis-improving, noted to d/t steroids. 12.PT eval and plan to dischcarge soon 13.Decub ulcer as noted in picture and evaluated by surgery with the following remarks:Large sacral decubitus ulcer with necrotic skin and subc, excised at the bedside today.? Viable subcut. noted below.? Wounds redressed with sponge dressing.? Keep all pressure off the wound, roll side to side, air mattress.? Change dressings daily and prn.? Reevauation with wound care nurse--Dr. Jiménez. Wound RN to follow 14.Malnutrition--speech/nutrition eval today anticipatated dc soon Quality Stroke Does the patient have a stroke diagnosis?: No VTE Prior VTE?: No VTE Risk Level:: Medical - moderate - high VTE Device Contraindication: Treatment Not Indicated VTE Drug Contraindication: N/A - Med Ordered
--- NOTE | 2021-12-21 15:58 | MHC.CM.NN ---
pt to be dcd to [facility] 12/22 message left for guardian re anticapted dc for 12/22 imm updated
[2021-12-21 16:14] LABS: Glucose, Whole Blood 153 mg/dL (60-115)
[2021-12-21 17:41] LABS: COVID-19 Test Negative (Negative)
--- NOTE | 2021-12-21 18:36 | PM.PNNEP ---
Subjective Subjective Date of Service: 12/21/21 Principal diagnosis: dysnatremia, hypervol Interval history: seen and examined, events noted Physical Exam Vital Signs: Vital Signs: Last Vital Signs Temp 97.8 F 12/21/21 15:15 Pulse 89 12/21/21 15:15 Resp 18 12/21/21 15:15 BP 119/59 L 12/21/21 15:15 Pulse Ox 98 12/21/21 15:15 Oxygen Flow Rate 30 12/02/21 00:00 BMI result Body Mass Index 54.4 Const: Other: looks very sick with RR 40, tachypnic rhnochi/wheezes RRR abd obses edema General: cooperative, no acute distress, alert, awake, lethargic (But follows commands) and other ( somnolent, arousable to painful stimuli, does not follow commands) Nutritional Appearance: obese Orientation/consciousness: patient oriented x3 and lethargic (But follows commands) Eyes: General: appearance normal, both eyes and all related structures Sclerae: sclerae normal Pupils: Equal, round and reactive pupils present EOM: EOMs intact bilaterally Neck: Neck: Yes normal visual inspection, Yes no lymphadenopathy, Yes trachea midline and Yes supple Chest: Chest palpation & inspection: normal inspection of the chest Resp: Effort & Inspection: normal respiratory effort and no respiratory distress Auscultation: clear to auscultation bilaterally, crackles (Bibasilar) and no wheezes Cardio: Palpation: normal PMI Rate: regular rate and tachycardic Rhythm: regular rhythm and abnormal rhythm irregularly irregular Heart sounds: S1 normal heart sound present, S2 normal heart sound present, no gallops, no murmurs and no rubs GI: Palpation (GI): Soft to palpation, nontender and Other GI palpation findings present ( Nontender) Auscultation: normal bowel sounds Skin: General skin exam: no rashes or lesions noted Lesions: other Wounds: wounds noted (buttock area,unstageable,no deep to bone) Neuro: General: patient oriented x3 Cranial nerves: Yes Equal, round and reactive pupils present and Yes Other cranial nerve findings present Cognition (Neuro): normal cognition Extrem: General: Yes normal to inspection, Yes no pedal edema, No clubbing, No cyanosis and Yes pedal edema (1+ bilateral) Psych: Mental Status: other Objective Data Labs CBC & Chem 7: 12/20/21 06:10 12/20/21 06:10 Labs: Laboratory Results - last 24 hr 12/20/21 12/21/21 12/21/21 19:28 07:18 10:52 POC Glucose 145 H 140 H 277 H COVID-19 (JESSY) COVID-19 Clin Com 12/21/21 12/21/21 16:11 16:54 POC Glucose 153 H COVID-19 (JESSY) Negative COVID-19 Clin Com See Note Microbiology Microbiology Results: Microbiology 12/11/21 19:58 Blood - Venous Blood Culture - Final No growth after 5 days. 12/11/21 19:58 Blood - Venous Blood Culture - Final No growth after 5 days. 12/12/21 02:35 Urine Catheterized - Arias Catheter Urine Culture - Final No growth. 12/08/21 15:40 Bronch Lll Gram Stain - Final 12/08/21 15:40 Bronch Lll Routine Culture - Final No growth after 2 days 12/05/21 21:20 Blood - Venous Blood Culture - Final No growth after 5 days. 12/05/21 21:20 Blood - Venous Blood Culture - Final No growth after 5 days. 12/08/21 Unknown Buttock Right Gram Stain - Final 12/08/21 Unknown Buttock Right Routine Culture - Final 12/06/21 20:12 Sputum - Suctioned Gram Stain - Final 12/06/21 20:12 Sputum - Suctioned Sputum Culture - Final 12/06/21 18:16 Urine Catheterized - Arias Catheter Urine Culture - Final No growth. 11/28/21 09:32 Sputum - Suctioned Gram Stain - Final 11/28/21 09:32 Sputum - Suctioned Sputum Culture - Final Kimberly albicans 11/25/21 01:47 Blood - Venous Blood Culture - Final No growth after 5 days. 11/25/21 01:42 Blood - Venous Blood Culture - Final No growth after 5 days. Procedures Date of Service Date of Service: 12/21/21 Assessment & Plan Assessment and plan (1) Hypernatremia: Status: Acute Assessment and Plan: 66-year-old female with past medical history of alcoholic liver cirrhosis, dementia, hyponatremia presents to the hospital with AFib with RVR 1. HyperNa: stands corrected at this time 2. Incr HCO3: d/t ongoing diuresis as no mention of vomiting h/o acute pulm edema and challenging vol assessments REC: check venous pH and urine studies ( Ur chloridde), will need to consider diamox short term (2) Acute on chronic diastolic (congestive) heart failure: Status: Acute Time Spent With Patient Time: Total time spent is greater than 50% in coordination of care (as documented) at patient's floor/unit and/or counseling patient: Progress Note: Quality Stroke Does the patient have a stroke diagnosis?: No
[2021-12-21 19:44] LABS: Glucose, Whole Blood 139 mg/dL (60-115)
[2021-12-22] VITALS (10 sets, daily range): BP systolic 127–149; BP diastolic 59–67; PULSE 67–80; RESP 16–31; TEMP 36.3–36.8; O2SAT 77–100; BMI 54.6
[2021-12-22] MEDS: Sodium Chloride 0.45 % 1,000 ML 80 ML IVCONT ×2 (06:10→17:36)
[2021-12-22 06:50] LABS: Anion Gap 12 (12-20); Blood Urea Nitrogen 8 mg/dL (9-16); Carbon Dioxide 32 mmol/L (22-29); Chloride 95 mmol/L (96-108); Creatinine Clr Calc Pharmacy 155.5; Estimated Glomerular Filt Rate > 60; Potassium 4.1 mmol/L (3.3-5.1); Sodium 135 mmol/L (135-145)
[2021-12-22 07:12] LABS: Glucose, Whole Blood 118 mg/dL (60-115)
[2021-12-22] MEDS: Digoxin 0.25 MG TABLET PO (08:55)
[2021-12-22] MEDS: Metoprolol Tartrate 25 MG TABLET 75 MG PO ×2 (08:55→21:21)
[2021-12-22] MEDS: Spironolactone 25 MG TABLET PO (08:55)
[2021-12-22] MEDS: Nystatin Powder 15 GM BOTTLE 1 APPL TOPICAL ×3 (08:56→21:21)
[2021-12-22] MEDS: Apixaban 5 MG TABLET PO ×2 (08:56→21:21)
[2021-12-22] MEDS: 0.9 % Sodium Chloride Flush 3 ML SYRINGE IVFLUSH ×3 (08:56→21:26)
[2021-12-22] MEDS: Atorvastatin Calcium 10 MG TABLET PO (08:56)
[2021-12-22 11:03] LABS: Glucose, Whole Blood 133 mg/dL (60-115)
--- NOTE | 2021-12-22 11:35 | PM.PNNEP ---
Subjective Subjective Date of Service: 12/22/21 Principal diagnosis: dysnatremia, hypervol Interval history: seen and examined, events noted Physical Exam Vital Signs: Vital Signs: Last Vital Signs Temp 98.3 F 12/22/21 11:06 Pulse 72 12/22/21 11:06 Resp 20 12/22/21 11:06 BP 135/61 12/22/21 11:06 Pulse Ox 100 12/22/21 11:06 Oxygen Flow Rate 30 12/02/21 00:00 BMI result Body Mass Index 54.6 Const: Other: looks very sick with RR 40, tachypnic rhnochi/wheezes RRR abd obses edema General: cooperative, no acute distress, alert, awake, lethargic (But follows commands) and other ( somnolent, arousable to painful stimuli, does not follow commands) Nutritional Appearance: obese Orientation/consciousness: patient oriented x3 and lethargic (But follows commands) Eyes: General: appearance normal, both eyes and all related structures Sclerae: sclerae normal Pupils: Equal, round and reactive pupils present EOM: EOMs intact bilaterally Neck: Neck: Yes normal visual inspection, Yes no lymphadenopathy, Yes trachea midline and Yes supple Chest: Chest palpation & inspection: normal inspection of the chest Resp: Effort & Inspection: normal respiratory effort and no respiratory distress Auscultation: clear to auscultation bilaterally, crackles (Bibasilar) and no wheezes Cardio: Palpation: normal PMI Rate: regular rate and tachycardic Rhythm: regular rhythm and abnormal rhythm irregularly irregular Heart sounds: S1 normal heart sound present, S2 normal heart sound present, no gallops, no murmurs and no rubs GI: Palpation (GI): Soft to palpation, nontender and Other GI palpation findings present ( Nontender) Auscultation: normal bowel sounds Skin: General skin exam: no rashes or lesions noted Lesions: other Wounds: wounds noted (buttock area,unstageable,no deep to bone) Neuro: General: patient oriented x3 Cranial nerves: Yes Equal, round and reactive pupils present and Yes Other cranial nerve findings present Cognition (Neuro): normal cognition Extrem: General: Yes normal to inspection, Yes no pedal edema, No clubbing, No cyanosis and Yes pedal edema (1+ bilateral) Psych: Mental Status: other Objective Data Labs CBC & Chem 7: 12/20/21 06:10 12/22/21 06:17 Labs: Laboratory Results - last 24 hr 12/21/21 12/21/21 12/21/21 16:11 16:54 19:20 Sodium Potassium Chloride Carbon Dioxide Anion Gap BUN Creatinine Estim Creat Clear Calc Estimated GFR POC Glucose 153 H 139 H COVID-19 (JESSY) Negative COVID-19 Clin Com See Note 12/22/21 12/22/21 12/22/21 06:17 07:03 10:59 Sodium 135 Potassium 4.1 D Chloride 95 L Carbon Dioxide 32 H Anion Gap 12 BUN 8 L Creatinine 0.53 Estim Creat Clear Calc 155.5 Estimated GFR > 60 POC Glucose 118 H 133 H COVID-19 (JESSY) COVID-19 Clin Com Microbiology Microbiology Results: Microbiology 12/11/21 19:58 Blood - Venous Blood Culture - Final No growth after 5 days. 12/11/21 19:58 Blood - Venous Blood Culture - Final No growth after 5 days. 12/12/21 02:35 Urine Catheterized - Arias Catheter Urine Culture - Final No growth. 12/08/21 15:40 Bronch Lll Gram Stain - Final 12/08/21 15:40 Bronch Lll Routine Culture - Final No growth after 2 days 12/05/21 21:20 Blood - Venous Blood Culture - Final No growth after 5 days. 12/05/21 21:20 Blood - Venous Blood Culture - Final No growth after 5 days. 12/08/21 Unknown Buttock Right Gram Stain - Final 12/08/21 Unknown Buttock Right Routine Culture - Final 12/06/21 20:12 Sputum - Suctioned Gram Stain - Final 12/06/21 20:12 Sputum - Suctioned Sputum Culture - Final 12/06/21 18:16 Urine Catheterized - Arias Catheter Urine Culture - Final No growth. 11/28/21 09:32 Sputum - Suctioned Gram Stain - Final 11/28/21 09:32 Sputum - Suctioned Sputum Culture - Final Kimberly albicans 11/25/21 01:47 Blood - Venous Blood Culture - Final No growth after 5 days. 11/25/21 01:42 Blood - Venous Blood Culture - Final No growth after 5 days. Procedures Date of Service Date of Service: 12/22/21 Assessment & Plan Assessment and plan (1) Hypernatremia: Status: Acute Assessment and Plan: 66-year-old female with past medical history of alcoholic liver cirrhosis, dementia, hyponatremia presents to the hospital with AFib with RVR 1. HyperNa: stands corrected at this time 2. Incr HCO3: decr; d/t ongoing diuresis as no mention of vomiting 3. Vol status: loooks good on exam today h/o acute pulm edema and challenging vol assessments REC: r/s lasix in next 2-3 days 20 mg; no need for diamox given decr HCO3 (2) Acute on chronic diastolic (congestive) heart failure: Status: Acute Time Spent With Patient Time: Total time spent is greater than 50% in coordination of care (as documented) at patient's floor/unit and/or counseling patient: Progress Note: Quality Stroke Does the patient have a stroke diagnosis?: No
--- NOTE | 2021-12-22 11:44 | MHC.CDI.CONC ---
CDI Concurrent Query Documentation Clarification: PHYSICIAN'S DOCUMENTATION REQUEST Date of Query: 12/22/21 1144 Patient Name: Valentine Reddy Admit Date: 11/25/21 Dear Doctor, A review of the medical record indicates additional documentation may be needed. Please review below and update the documentation accordingly. Clinical Indicators: Documentation includes the diagnosis of malnutrition. Additional clinical indicators from the record include: Risk Factors/Clinical Indicators/Treatments Nutrition assessment notes 12/20 - intake remains very poor, Ensure bid in place. Recommends adding Edy to promote wound healing. PN: 12/20 Assessment/plan: malnutrition, speech/nutrition eval ASPEN Criteria* Acute Illness Chronic Illness Clinical Characteristic Non-Severe (2 or more criteria present) Severe (2 or more criteria present) Non-Severe (2 or more criteria present) Severe (2 or more criteria present) Energy Intake <75% for >7 days <=50% for >=5 days <75% for >=1 month <=75% for >=1 month Weight Loss 1 week 1 ? 2% >2% N/A N/A 1 month 5% >5% 5% >5% 3 months 7.5 % >7.5% 7.5% >7.5% 6 months N/A N/A 10% >10% 1 year N/A N/A 20% >20% Body Fat Mild Moderate Mild Severe Muscle Mass Mild Moderate Mild Severe Fluid Accumulation Mild Moderate to Severe Mild Severe Reduced Pipe Line Maintenance Supervisor Strength N/A Measurably Reduced N/A Measurably Reduced *[facility] Hospitalist, 2017 If possible, please provide in your progress notes, additional specificity regarding the severity of the malnutrition using the above information: Mild Moderate Severe Other (please specify) Unable to determine Use of terms such as suspected, likely, concern for, or probable (associated with a specific diagnosis that is being evaluated, monitored, or treated as if it exists) are acceptable and can be coded in the inpatient setting, when documented at the time of discharge. Thank you, Claudia Franklin [facility], CDIS Extension: [phone] Please use your independent medical judgment in providing your response. THIS QUERY IS PART OF THE PERMANENT MEDICAL RECORD Provider Response: Other Other Diagnosis: mild malnutrition
--- NOTE | 2021-12-22 11:45 | MHC.CM.PN ---
pts guardian notified of cancelled dc message left for ever julio [phone]
--- NOTE | 2021-12-22 12:09 | MHC.CLN ---
F/U PO INTAKE SLIGHTLY IMPROVED SERUM NA WNL DIET RX: PUREED WITH NT LIQ-APPROPRIATE ENSURE BID AND LELAND BID IN PLACE PROVIDES 860KCALS, 45G PROTEIN FOR INCREASE KCALS AND PROMOTE WOUND HEALING CONTINUE STRICT PO MONITORING
[2021-12-22] MEDS: Acetaminophen 325 MG TABLET 650 MG PO (12:16)
[2021-12-22] MEDS: ondansetron HCL 4 MG/2 ML VIAL IVPUSH (12:16)
--- NOTE | 2021-12-22 13:12 | MHC.SLORD ---
Speech Language Pathology Order Status: Attempted to see patient this morning for dysphagia treatment- Patient unavailable, receiving other care. Patient is currently on PUREED (NDD1) solids/ NECTAR THICK liquids.
--- NOTE | 2021-12-22 14:14 | P.PNIM_ITS ---
Subjective Subjective Date of Service: 12/22/21 Interval History: f/u po intake ,flactuating hypo/hypernatremia,underlying respiratory issues...afib, decub ulcer, underlying psychiatric? issues. Review of Systems seems similar yesterday, wound care at bedside denies nay new c/o Physical Exam Vital Signs: Vital Signs: Last Vital Signs Temp 98.3 F 12/22/21 11:06 Pulse 72 12/22/21 11:06 Resp 20 12/22/21 11:06 BP 135/61 12/22/21 11:06 Pulse Ox 100 12/22/21 11:06 Oxygen Flow Rate 30 12/02/21 00:00 BMI result Body Mass Index 54.6 General: AO X 3, no acute distress Resp:? CTA bilateral CVS: S1,S2,RRR GI: +BS, NT, no distention Skin: No rash, decub ulcer as in the picture( yesterday-s/p debridement 12/20) Neuro:? motor grossly intact Psych: appropriate affect Objective Data Active Medications Acetaminophen (Acetaminophen 325 Mg Tablet) 650 mg PO Q6H PRN PRN Reason: Fever Last Admin: 12/22/21 12:16 Dose: 650 mg Documented by: LISSA Apixaban (Apixaban 5 Mg Tablet) 5 mg PO BID [facility] Last Admin: 12/22/21 08:56 Dose: 5 mg Documented by: LISSA Atorvastatin Calcium (Atorvastatin Calcium 10 Mg Tablet) 10 mg PO DAILY [facility] Last Admin: 12/22/21 08:56 Dose: 10 mg Documented by: LISSA Digoxin (Digoxin 0.25 Mg Tablet) 0.25 mg PO DAILY [facility] Last Admin: 12/22/21 08:55 Dose: 0.25 mg Documented by: LISSA Sodium Chloride () 1,000 mls @ 80 mls/hr IVCONT .[id number] [facility] Last Admin: 12/22/21 06:10 Dose: 80 mls/hr Documented by: TALON Insulin Human Lispro (Insulin Lispro 100 Unit/Ml 3 Ml Vial) 0 unit SUBCUT QIDACHS [facility]; Protocol Last Admin: 12/22/21 11:23 Dose: Not Given Documented by: LISSA Non-Admin Reason: No Insulin Coverage Metoprolol Tartrate (Metoprolol Tartrate 25 Mg Tablet) 75 mg PO BID [facility]; Protocol Last Admin: 12/22/21 08:55 Dose: 75 mg Documented by: LISSA Nystatin (Nystatin Powder 15 Gm Bottle) 1 appl TOPICAL TID [facility]; Protocol Last Admin: 12/22/21 08:56 Dose: 1 appl Documented by: LISSA Ondansetron HCl (Ondansetron Hcl 4 Mg/2 Ml Vial) 4 mg IVPUSH Q8H PRN PRN Reason: Nausea Last Admin: 12/22/21 12:16 Dose: 4 mg Documented by: LISSA Pharmacy Consult (Consult Rx Perform Med Rec) 1 each MISCELLANE ONCE PRN PRN Reason: Consult order Sodium Chloride (0.9 % Sodium Chloride Flush 3 Ml Syringe) 3 ml IVFLUSH QSHIFT [facility] Last Admin: 12/22/21 08:56 Dose: 3 ml Documented by: LISSA Spironolactone (Spironolactone 25 Mg Tablet) 25 mg PO DAILY [facility]; Protocol Last Admin: 12/22/21 08:55 Dose: 25 mg Documented by: LISSA Labs CBC & Chem 7: 12/20/21 06:10 12/22/21 06:17 Labs: Laboratory Results - last 24 hr 12/21/21 12/21/21 12/21/21 16:11 16:54 19:20 Anion Gap Estim Creat Clear Calc Estimated GFR POC Glucose 153 H 139 H COVID-19 (JESSY) Negative COVID-19 Clin Com See Note 12/22/21 12/22/21 12/22/21 06:17 07:03 10:59 Anion Gap 12 Estim Creat Clear Calc 155.5 Estimated GFR > 60 POC Glucose 118 H 133 H COVID-19 (JESSY) COVID-19 Clin Com Assessment and Plan (1) Acute on chronic diastolic (congestive) heart failure: Status: Acute (2) Sacral decubitus ulcer: Status: Acute Plan 66-year-old lady with underlying alcoholic cirrhosis, dementia, schizoaffective disorder a admitted with acute? 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 On 12/06 she again developped respiratory failure nearly obtunded with no gag reflex and was transfered yet again to ICU and again was intubated and mechanically ventilated? and extubated again and transfer back to medical floor on 12/15 1.Acute respiratory failure secondary to angioedema requiring intubation and ventilatory support for airway protection intubated on 11/27,? extubated 11/29/2021, reintubated on 12/06 and extubated 12/13. Respiratory failure of of multifactorial etiology including COPD,? possible pneumonia and heart failure and Pneumonia. Respiratory status is much better now, she is prone to fluid overload 2.AFib with RVR--variable rate, but overall seems better -Rate is better, continue Metoprolol 75 bid, digoxin, check level: 0.6 (last 12/19/21) 3.Chronic diastolic heart failure--she seems compensated, she was on IV diuretic in ICU including Lasix drip, her edema looks better but the record shows that she has only diuresed 1300 ml total. ef : 60-65% limited echo 4.Hyponatremia--resolved, now hypernatremia.. Resolved 5.Hypernatremia--sodium is normal. off d5. 6.COPD? exacerbated by pneumonia-Bronchodilators, steroid and has completed course of Zosyn and? Unassyn for pneumonia, fever resolved 7.DM II--SSI, off Lantus sugars on low side 8. Schizoaffective disorder--She was on Haldol PRN but all meds dc since ICU 9.Metabolic Alkalosis--Resolved 10.HLD--Lipitor 11.leukocytosis-improving, noted to d/t steroids. 12.PT eval and plan to dischcarge soon 13.Decub ulcer as noted in picture and evaluated by surgery with the following remarks:Large sacral decubitus ulcer with necrotic skin and subc, excised at the bedside today.? Viable subcut. noted below.? Wounds redressed with sponge dressing.? Keep all pressure off the wound, roll side to side, air mattress.? Change dressings daily and prn.? Reevauation with wound care nurse--Dr. Jiménez. Wound RN to follow 14.Malnutrition--speech/nutrition eval today anticipatated dc soon Quality Stroke Does the patient have a stroke diagnosis?: No VTE Prior VTE?: No VTE Risk Level:: Medical - moderate - high VTE Device Contraindication: Treatment Not Indicated VTE Drug Contraindication: N/A - Med Ordered
--- NOTE | 2021-12-22 15:15 | PM.CCN ---
Critical Care Event Note Summary Date of Service: 12/22/21 Code activated: No Narrative: 66-year-old lady with underlying alcoholic cirrhosis, dementia, chronic hypernatremia, chronic renal disease, schizoaffective disorder, asthma obesity, and likely obstructive sleep apnea now with prolonged hospitalization secondary to AHF exacerbation and metabolic encephalopathy. Patient has significantly improved, however considering her underlying super morbid obesity with BMI of 55 and evidence of CO2 retention, she continues to require BiPAP support overnight likely secondary to underlying obstructive sleep apnea with obesity hypoventilation syndrome. Patient would benefit from outpatient sleep study and continued nocturnal support with BiPAP. Critical Care Time (minutes): 0
[2021-12-22 16:01] LABS: Glucose, Whole Blood 136 mg/dL (60-115)
[2021-12-22 19:50] LABS: VBG Base Excess 16.1 mmol/L; VBG HCO3 43 mmol/L (22-26); VBG pCO2 65 mmHg; VBG pH 7.42 (7.32-7.43); VBG pO2 61 mmHg
[2021-12-22 19:53] LABS: Venous Blood Gas Refer to POC result
[2021-12-22 19:53] LABS: Glucose, Whole Blood 138 mg/dL (60-115)
[2021-12-23] VITALS (7 sets, daily range): BP systolic 114–169; BP diastolic 57–71; PULSE 66–78; RESP 13–36; TEMP 36.1–37; O2SAT 90–96
[2021-12-23] MEDS: Sodium Chloride 0.45 % 1,000 ML 80 ML IVCONT (05:49)
[2021-12-23] MEDS: Acetaminophen 325 MG TABLET 650 MG PO (05:50)
[2021-12-23 07:00] LABS: Glucose, Whole Blood 120 mg/dL (60-115)
[2021-12-23] MEDS: Atorvastatin Calcium 10 MG TABLET PO (08:35)
[2021-12-23] MEDS: Metoprolol Tartrate 25 MG TABLET 75 MG PO ×2 (08:35→19:55)
[2021-12-23] MEDS: Apixaban 5 MG TABLET PO ×2 (08:35→19:52)
[2021-12-23] MEDS: 0.9 % Sodium Chloride Flush 3 ML SYRINGE IVFLUSH ×3 (08:35→19:55)
[2021-12-23] MEDS: Spironolactone 25 MG TABLET PO (08:36)
[2021-12-23] MEDS: Nystatin Powder 15 GM BOTTLE 1 APPL TOPICAL ×3 (08:36→19:55)
[2021-12-23] MEDS: Digoxin 0.25 MG TABLET PO (08:36)
[2021-12-23 11:06] LABS: Glucose, Whole Blood 182 mg/dL (60-115)
[2021-12-23] MEDS: Insulin Lispro 100 UNIT/ML 3 ML VIAL SUBCUT (11:18)
--- NOTE | 2021-12-23 11:24 | MHC.SLORD ---
Speech Language Pathology Order Status: Attempted to see PT this am to re-assess swallow. Pt was agitated and confused about toileting (has janine) and refused liquid/food trials. Nursing was presented to attempt to calm and orient Pt, however Pt continued agitated. Will re-attempt in the a.m.
--- NOTE | 2021-12-23 14:48 | HO.PM.IMPN ---
Subjective Subjective Date of Service: 12/23/21 Interval History: no acute issues overnight Review of Systems denies chest pain Breathing improved ...still mild SOB Denies nausea vomiting diarrhea Physical Exam Vital Signs: Vital Signs: Last Vital Signs Temp 97.8 F 12/23/21 11:03 Pulse 67 12/23/21 11:03 Resp 18 12/23/21 11:03 BP 114/64 12/23/21 11:03 Pulse Ox 95 12/23/21 11:03 Oxygen Flow Rate 30 12/02/21 00:00 BMI result Body Mass Index 54.6 Const: Other: no acute distress Resp: Other: scattered expiratory wheezes all martinez Cardio: Other: irregularly irregular; no S4 positive S1-S2 no S3 without murmurs or gallops Skin: Other: stage III sacral decub Extrem: Other: no edema bilaterally Objective Data Active Medications Acetaminophen (Acetaminophen 325 Mg Tablet) 650 mg PO Q6H PRN PRN Reason: Fever Last Admin: 12/23/21 05:50 Dose: 650 mg Documented by: TALON Apixaban (Apixaban 5 Mg Tablet) 5 mg PO BID [facility] Last Admin: 12/23/21 08:35 Dose: 5 mg Documented by: LISSA Atorvastatin Calcium (Atorvastatin Calcium 10 Mg Tablet) 10 mg PO DAILY [facility] Last Admin: 12/23/21 08:35 Dose: 10 mg Documented by: LISSA Digoxin (Digoxin 0.25 Mg Tablet) 0.25 mg PO DAILY [facility] Last Admin: 12/23/21 08:36 Dose: 0.25 mg Documented by: LISSA Sodium Chloride () 1,000 mls @ 80 mls/hr IVCONT .[id number] [facility] Last Admin: 12/23/21 05:49 Dose: 80 mls/hr Documented by: TALON Insulin Human Lispro (Insulin Lispro 100 Unit/Ml 3 Ml Vial) 0 unit SUBCUT QIDACHS [facility]; Protocol Last Admin: 12/23/21 11:18 Dose: 4 unit Documented by: LISSA Metoprolol Tartrate (Metoprolol Tartrate 25 Mg Tablet) 75 mg PO BID [facility]; Protocol Last Admin: 12/23/21 08:35 Dose: 75 mg Documented by: LISSA Morphine Sulfate (Morphine Sulfate 4 Mg/Ml Cartridge) 3 mg IVPUSH Q3H PRN; Protocol PRN Reason: Pain, Moderate (Pain Scale 4-6 Nystatin (Nystatin Powder 15 Gm Bottle) 1 appl TOPICAL TID [facility]; Protocol Last Admin: 12/23/21 08:36 Dose: 1 appl Documented by: LISSA Ondansetron HCl (Ondansetron Hcl 4 Mg/2 Ml Vial) 4 mg IVPUSH Q8H PRN PRN Reason: Nausea Last Admin: 12/22/21 12:16 Dose: 4 mg Documented by: LISSA Pharmacy Consult (Consult Rx Perform Med Rec) 1 each MISCELLANE ONCE PRN PRN Reason: Consult order Sodium Chloride (0.9 % Sodium Chloride Flush 3 Ml Syringe) 3 ml IVFLUSH QSHIFT [facility] Last Admin: 12/23/21 08:35 Dose: 3 ml Documented by: LISSA Spironolactone (Spironolactone 25 Mg Tablet) 25 mg PO DAILY [facility]; Protocol Last Admin: 12/23/21 08:36 Dose: 25 mg Documented by: LISSA Labs CBC & Chem 7: 12/20/21 06:10 12/22/21 06:17 Labs: Laboratory Results - last 24 hr 12/22/21 12/22/21 12/22/21 15:50 19:45 19:50 VBG pH 7.42 VBG pCO2 65 VBG pO2 61 VBG HCO3 43 H VBG O2 Saturation 87.0 VBG Base Excess 16.1 POC Glucose 136 H 138 H 12/23/21 12/23/21 06:57 11:02 VBG pH VBG pCO2 VBG pO2 VBG HCO3 VBG O2 Saturation VBG Base Excess POC Glucose 120 H 182 H Assessment and Plan (1) Acute respiratory failure: Status: Acute (2) Diastolic CHF with preserved left ventricular function, NYHA class 2: Status: Acute (3) Atrial fibrillation with RVR: Status: Acute Plan 66-year-old lady with underlying alcoholic cirrhosis, dementia, schizoaffective disorder a admitted with acute? 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 On 12/06 she again developped respiratory failure nearly obtunded with no gag reflex and was transfered yet again to ICU and again was intubated and mechanically ventilated? and extubated again and transfer back to medical floor on 12/15 1.Acute respiratory failure secondary to angioedema requiring intubation and ventilatory support for airway protection intubated on 11/27,? extubated 11/29/2021, reintubated on 12/06 and extubated 12/13. Respiratory failure of of multifactorial etiology including COPD,? possible pneumonia and heart failure and Pneumonia. -check overnight oximetry..will likely nee BiPAP 2.Chronic AFib -Rate conttrol adequate on Metoprolol 75 bid/Digoxin, - adjust as indicated 3.Chronic diastolic CHF ( well compensated) - Continue HCTZ/Aldactone 4COPD exacerbation -Bronchodilators/Steroids - titrate O2. Overnight oximetry 5.DMII - Acceeptable control on current therapies 8. Schizoaffective disorder - restart outpatieent meds 9.Stage III coccyx decub -return with wound vac to [facility]. -Wound care as per facility regimen Cassandra Full Code Quality Stroke Does the patient have a stroke diagnosis?: No VTE Prior VTE?: No VTE Risk Level:: Medical - moderate - high VTE Device Contraindication: Treatment Not Indicated VTE Drug Contraindication: N/A - Med Ordered
[2021-12-23] MEDS: Morphine Sulfate 4 MG/ML CARTRIDGE 3 MG IVPUSH ×2 (15:34→19:52)
[2021-12-23 16:22] LABS: Glucose, Whole Blood 117 mg/dL (60-115)
[2021-12-23 19:47] LABS: Glucose, Whole Blood 119 mg/dL (60-115)
[2021-12-24] VITALS (7 sets, daily range): BP systolic 119–175; BP diastolic 58–77; PULSE 65–83; RESP 16–22; TEMP 36.2–37.5; O2SAT 89–96; BMI 54.4
[2021-12-24 07:51] LABS: Glucose, Whole Blood 124 mg/dL (60-115)
[2021-12-24] MEDS: Apixaban 5 MG TABLET PO ×2 (08:03→20:26)
[2021-12-24] MEDS: Metoprolol Tartrate 25 MG TABLET 75 MG PO ×2 (08:03→20:26)
[2021-12-24] MEDS: Atorvastatin Calcium 10 MG TABLET PO (08:03)
[2021-12-24] MEDS: Morphine Sulfate 4 MG/ML CARTRIDGE 3 MG IVPUSH ×2 (08:03→20:25)
[2021-12-24] MEDS: Spironolactone 25 MG TABLET PO (08:03)
[2021-12-24] MEDS: Digoxin 0.25 MG TABLET PO (08:03)
[2021-12-24] MEDS: 0.9 % Sodium Chloride Flush 3 ML SYRINGE IVFLUSH ×3 (08:03→20:26)
[2021-12-24] MEDS: Nystatin Powder 15 GM BOTTLE 1 APPL TOPICAL ×2 (08:04→20:31)
--- NOTE | 2021-12-24 10:58 | MHC.SLORD ---
Speech Language Pathology Order Status: INFORMATION TECHNOLOGY ANALYST attempted to see patient for dysphagia treatment this morning. INFORMATION TECHNOLOGY ANALYST provided education and encouragement, but patient refused to participate. Patient is on pureed (NDD1) solids and nectar thick liquids- INFORMATION TECHNOLOGY ANALYST will continue to follow.
--- NOTE | 2021-12-24 11:05 | MHC.CLN ---
F/U PO INTAKE SLIGHTLY IMPROVED DIET RX: PUREED WITH NT LIQ-APPROPRIATE ENSURE BID AND [facility]ELAND BID IN PLACE PROVIDES 860KCALS, 45G PROTEIN FOR INCREASE KCALS AND PROMOTE WOUND HEALING BLUEPRINT CLERK CONTINUES TO ATTEMPT TO WORK WITH PT CONTINUE STRICT PO MONITORING
[2021-12-24 11:44] LABS: Glucose, Whole Blood 133 mg/dL (60-115)
--- NOTE | 2021-12-24 11:58 | PC.NURSE ---
Wound assessment completed. Patient has a stage 3 pressure wound on coccyx/bilateral buttocks. Veraflo wound vacuum system applied to area. To be changed M-W-. Patient has dry pink patches to the side of right breast to under breast. Cream applied.
--- NOTE | 2021-12-24 14:44 | HO.PM.IMPN ---
Subjective Subjective Date of Service: 12/24/21 Interval History: no acute issues overnight Review of Systems denies chest pain Breathing improved ...still mild SOB Denies nausea vomiting diarrhea Physical Exam Vital Signs: Vital Signs: Last Vital Signs Temp 99.5 F 12/24/21 11:41 Pulse 72 12/24/21 11:41 Resp 19 12/24/21 11:41 BP 119/58 L 12/24/21 11:41 Pulse Ox 96 12/24/21 11:41 Oxygen Flow Rate 30 12/02/21 00:00 BMI result Body Mass Index 54.4 Const: Other: no acute distress Resp: Other: scattered expiratory wheezes all martinez Cardio: Other: irregularly irregular; no S4 positive S1-S2 no S3 without murmurs or gallops Skin: Other: stage III sacral decub Extrem: Other: no edema bilaterally Objective Data Active Medications Acetaminophen (Acetaminophen 325 Mg Tablet) 650 mg PO Q6H PRN PRN Reason: Fever Last Admin: 12/23/21 05:50 Dose: 650 mg Documented by: TALON Apixaban (Apixaban 5 Mg Tablet) 5 mg PO BID [facility] Last Admin: 12/24/21 08:03 Dose: 5 mg Documented by: SHANELL Atorvastatin Calcium (Atorvastatin Calcium 10 Mg Tablet) 10 mg PO DAILY [facility] Last Admin: 12/24/21 08:03 Dose: 10 mg Documented by: SHANELL Digoxin (Digoxin 0.25 Mg Tablet) 0.25 mg PO DAILY [facility] Last Admin: 12/24/21 08:03 Dose: 0.25 mg Documented by: SHANELL Insulin Human Lispro (Insulin Lispro 100 Unit/Ml 3 Ml Vial) 0 unit SUBCUT QIDACHS [facility]; Protocol Last Admin: 12/24/21 12:12 Dose: Not Given Documented by: SHANELL Non-Admin Reason: bs 138 Metoprolol Tartrate (Metoprolol Tartrate 25 Mg Tablet) 75 mg PO BID [facility]; Protocol Last Admin: 12/24/21 08:03 Dose: 75 mg Documented by: SHANELL Morphine Sulfate (Morphine Sulfate 4 Mg/Ml Cartridge) 3 mg IVPUSH Q3H PRN; Protocol PRN Reason: Pain, Moderate (Pain Scale 4-6 Last Admin: 12/24/21 08:03 Dose: 3 mg Documented by: SHANELL Nystatin (Nystatin Powder 15 Gm Bottle) 1 appl TOPICAL TID [facility]; Protocol Last Admin: 12/24/21 08:04 Dose: 1 appl Documented by: SHANELL Ondansetron HCl (Ondansetron Hcl 4 Mg/2 Ml Vial) 4 mg IVPUSH Q8H PRN PRN Reason: Nausea Last Admin: 12/22/21 12:16 Dose: 4 mg Documented by: LISSA Pharmacy Consult (Consult Rx Perform Med Rec) 1 each MISCELLANE ONCE PRN PRN Reason: Consult order Sodium Chloride (0.9 % Sodium Chloride Flush 3 Ml Syringe) 3 ml IVFLUSH QSHIFT [facility] Last Admin: 12/24/21 08:03 Dose: 3 ml Documented by: SHANELL Spironolactone (Spironolactone 25 Mg Tablet) 25 mg PO DAILY [facility]; Protocol Last Admin: 12/24/21 08:03 Dose: 25 mg Documented by: SHANELL Labs CBC & Chem 7: 12/20/21 06:10 12/22/21 06:17 Labs: Laboratory Results - last 24 hr 12/23/21 12/23/21 12/24/21 16:13 19:40 07:14 POC Glucose 117 H 119 H 124 H 12/24/21 11:40 POC Glucose 133 H Assessment and Plan (1) Angioedema: Status: Acute (2) Atrial fibrillation with RVR: Status: Acute (3) CKD (chronic kidney disease): Status: Acute Plan 66-year-old lady with underlying alcoholic cirrhosis, dementia, schizoaffective disorder a admitted with acute? 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 On 12/06 she again developped respiratory failure nearly obtunded with no gag reflex and was transfered yet again to ICU and again was intubated and mechanically ventilated? and extubated again and transfer back to medical floor on 12/15 1.Acute respiratory failure secondary to angioedema requiring intubation and ventilatory support for airway protection intubated on 11/27,? extubated 11/29/2021, reintubated on 12/06 and extubated 12/13. Respiratory failure of of multifactorial etiology including COPD,? possible pneumonia and heart failure and Pneumonia. -overnight oximetry..will need overnight O2/likely CPaP -will arrange at [facility] 2.Chronic AFib -Rate conttrol adequate on Metoprolol 75 bid/Digoxin, - adjust as indicated 3.Chronic diastolic CHF ( well compensated) - Continue HCTZ/Aldactone 4COPD exacerbation -Bronchodilators/Steroids - titrate O2. Overnight oximetry 5.DMII - Acceeptable control on current therapies 8. Schizoaffective disorder - restart outpatieent meds 9.Stage III coccyx decub -[facility] -Wound care as per facility regimen Cassandra Full Code Quality Stroke Does the patient have a stroke diagnosis?: No VTE Prior VTE?: No VTE Risk Level:: Medical - moderate - high VTE Device Contraindication: Treatment Not Indicated VTE Drug Contraindication: N/A - Med Ordered
[2021-12-24 16:53] LABS: Glucose, Whole Blood 135 mg/dL (60-115)
[2021-12-24 20:33] LABS: Glucose, Whole Blood 112 mg/dL (60-115)
--- NOTE | 2021-12-25 | ECG_ITS ---
Test Reason : qt Blood Pressure : / mmHG Vent. Rate : 086 BPM Atrial Rate : 086 BPM P-R Int : 152 ms QRS Dur : 066 ms QT Int : 308 ms P-R-T Axes : 075 067 204 degrees QTc Int : 368 ms Normal sinus rhythm ST & T wave abnormality, consider inferolateral ischemia Abnormal ECG When compared with ECG of 24-NOV-2021 20:21, Previous ECG has undetermined rhythm, needs review T wave inversion now evident in Inferior leads T wave inversion now evident in Anterolateral leads Referred By: Tia Clay Electronically Signed By:Sebastián Helm
[2021-12-25 04:00] VITALS: BP 115/58; PULSE 85; RESP 20; TEMP 36.7; O2SAT 86
--- NOTE | 2021-12-25 06:02 | PC.NURSE ---
Patient refusing to keep on oxygen.Multiple attempts have been made between staff members and three various ways of receiving oxygen. Patient O2 staying between 83%-89%
[2021-12-25 07:14] LABS: MANUAL DIFF FLAG NO
[2021-12-25 07:18] LABS: Basophils Absolute Auto 0.1 X10*3/uL (0.0-0.2); Basophils Percent Auto 0.4 % (0-2); Eosinophils Absolute Auto 0.2 X10*3/uL (0.0-0.4); Eosinophils Percent Auto 1.6 % (0-4); Hematocrit 30.8 % (37.0-47.0); Imm Gran Abs Auto 0.23 X10*3/uL (0.00-0.03); Lymphocytes Absolute Auto 1.1 X10*3/uL (1.2-4.9); Lymphocytes Percent Auto 9.8 % (20-40); Mean Corpuscular HGB Conc 29.2 g/dl (31.0-35.0); Mean Corpuscular Hemoglobin 22.2 pg (27.0-33.0); Monocytes Absolute Auto 1.1 X10*3/uL (0.1-1.2); Monocytes Percent Auto 9.6 % (2-11); NRBC Pct Auto 0.2 /100WBC (0.0-0.2); Neutrophils Absolute Auto 8.9 x10*3/uL (2.0-8.3); Neutrophils Percent Auto 76.6 % (45-73); Platelet Count 245 X10*3/uL (160-400); Red Blood Count 4.05 X10*6/uL (4.20-5.50); Red Cell Distribution Width 28.9 % (11.0-16.0); White Blood Count 11.6 X10*3/uL (4.8-10.8)
[2021-12-25 07:26] VITALS: BP 158/69; PULSE 83; RESP 23; TEMP 36.4; O2SAT 100
[2021-12-25 08:03] LABS: Alanine Aminotransferase 11 U/L (0-31); Albumin Level 2.6 g/dL (3.5-5.0); Alkaline Phosphatase 85 U/L (39-117); Anion Gap 11 (12-20); Aspartate Amino Transferase 14 U/L (5-31); Bilirubin Total 0.8 mg/dL (0.0-1.0); Blood Urea Nitrogen 6 mg/dL (9-16); Carbon Dioxide 35 mmol/L (22-29); Chloride 95 mmol/L (96-108); Creatinine Clr Calc Pharmacy 164.6; Estimated Glomerular Filt Rate > 60; Glucose Fasting 129 mg/dL (60-99); Potassium 3.6 mmol/L (3.3-5.1); Sodium 137 mmol/L (135-145); Total Protein 5.2 g/dL (6.5-8.0)
[2021-12-25 08:03] LABS: Glucose, Whole Blood 133 mg/dL (60-115)
[2021-12-25] MEDS: Digoxin 0.25 MG TABLET PO (10:00)
[2021-12-25] MEDS: Metoprolol Tartrate 25 MG TABLET 75 MG PO ×2 (10:00→20:04)
[2021-12-25] MEDS: Atorvastatin Calcium 10 MG TABLET PO (10:01)
[2021-12-25] MEDS: Apixaban 5 MG TABLET PO ×2 (10:01→20:05)
[2021-12-25] MEDS: 0.9 % Sodium Chloride Flush 3 ML SYRINGE IVFLUSH ×2 (10:01→20:05)
[2021-12-25] MEDS: Spironolactone 25 MG TABLET PO (10:02)
[2021-12-25] MEDS: Nystatin Powder 15 GM BOTTLE 1 APPL TOPICAL ×3 (10:02→20:06)
[2021-12-25] MEDS: Morphine Sulfate 4 MG/ML CARTRIDGE 3 MG IVPUSH ×2 (10:05→20:03)
--- NOTE | 2021-12-25 11:30 | P.PNIM_ITS ---
Subjective Subjective Date of Service: 12/25/21 Interval History: no acute issues overnight Review of Systems denies chest pain Breathing improved ...still mild SOB Denies nausea vomiting diarrhea Physical Exam Vital Signs: Vital Signs: Last Vital Signs Temp 97.6 F 12/25/21 07:26 Pulse 83 12/25/21 07:26 Resp 23 H 12/25/21 07:26 BP 158/69 H 12/25/21 07:26 Pulse Ox 100 12/25/21 07:26 Oxygen Flow Rate 30 12/02/21 00:00 BMI result Body Mass Index 54.4 Const: Other: no acute distress Resp: Other: scattered expiratory wheezes all martinez Cardio: Other: irregularly irregular; no S4 positive S1-S2 no S3 without murmurs or gallops Skin: Other: stage III sacral decub Extrem: Other: no edema bilaterally Objective Data Active Medications Acetaminophen (Acetaminophen 325 Mg Tablet) 650 mg PO Q6H PRN PRN Reason: Fever Last Admin: 12/23/21 05:50 Dose: 650 mg Documented by: TALON Apixaban (Apixaban 5 Mg Tablet) 5 mg PO BID [facility] Last Admin: 12/25/21 10:01 Dose: 5 mg Documented by: CHRISTIANO Atorvastatin Calcium (Atorvastatin Calcium 10 Mg Tablet) 10 mg PO DAILY [facility] Last Admin: 12/25/21 10:01 Dose: 10 mg Documented by: CHRISTIANO Digoxin (Digoxin 0.25 Mg Tablet) 0.25 mg PO DAILY [facility] Last Admin: 12/25/21 10:00 Dose: 0.25 mg Documented by: CHRISTIANO Insulin Human Lispro (Insulin Lispro 100 Unit/Ml 3 Ml Vial) 0 unit SUBCUT QIDACHS [facility]; Protocol Last Admin: 12/25/21 08:05 Dose: Not Given Documented by: CHRISTIANO Non-Admin Reason: No Insulin Coverage Metoprolol Tartrate (Metoprolol Tartrate 25 Mg Tablet) 75 mg PO BID [facility]; Protocol Last Admin: 12/25/21 10:00 Dose: 75 mg Documented by: CHRISTIANO Morphine Sulfate (Morphine Sulfate 4 Mg/Ml Cartridge) 3 mg IVPUSH Q3H PRN; Protocol PRN Reason: Pain, Moderate (Pain Scale 4-6 Last Admin: 12/25/21 10:05 Dose: 3 mg Documented by: CHRISTIANO Nystatin (Nystatin Powder 15 Gm Bottle) 1 appl TOPICAL TID [facility]; Protocol Last Admin: 12/25/21 10:02 Dose: 1 appl Documented by: CHRISTIANO Ondansetron HCl (Ondansetron Hcl 4 Mg/2 Ml Vial) 4 mg IVPUSH Q8H PRN PRN Reason: Nausea Last Admin: 12/22/21 12:16 Dose: 4 mg Documented by: LISSA Pharmacy Consult (Consult Rx Perform Med Rec) 1 each MISCELLANE ONCE PRN PRN Reason: Consult order Sodium Chloride (0.9 % Sodium Chloride Flush 3 Ml Syringe) 3 ml IVFLUSH QSHIFT [facility] Last Admin: 12/25/21 10:01 Dose: 3 ml Documented by: CHRISTIANO Spironolactone (Spironolactone 25 Mg Tablet) 25 mg PO DAILY [facility]; Protocol Last Admin: 12/25/21 10:02 Dose: 25 mg Documented by: CHRISTIANO Labs CBC & Chem 7: 12/25/21 06:40 12/25/21 06:40 Labs: Laboratory Results - last 24 hr 12/24/21 12/24/21 12/24/21 11:40 16:49 20:24 MCV MCH MCHC RDW Plt Count MPV Immature Gran % (Auto) Neut % (Auto) Lymph % (Auto) [place] % (Auto) Eos % (Auto) Baso % (Auto) Lymph # (Auto) [place] # (Auto) Eos # (Auto) Baso # (Auto) Abs Immat Gran (auto) Absolute Neuts (auto) Absolute Nucleated RBC Nucleated RBC % (auto) Anion Gap Estim Creat Clear Calc Estimated GFR POC Glucose 133 H 135 H 112 Fasting Glucose Calcium Total Bilirubin AST ALT Alkaline Phosphatase Total Protein Albumin 12/25/21 12/25/21 12/25/21 06:40 06:40 07:30 MCV 76.0 L MCH 22.2 L MCHC 29.2 L RDW 28.9 H Plt Count 245 MPV 10.0 Immature Gran % (Auto) 2.0 H Neut % (Auto) 76.6 H Lymph % (Auto) 9.8 L [place] % (Auto) 9.6 Eos % (Auto) 1.6 Baso % (Auto) 0.4 Lymph # (Auto) 1.1 L [place] # (Auto) 1.1 Eos # (Auto) 0.2 Baso # (Auto) 0.1 Abs Immat Gran (auto) 0.23 H Absolute Neuts (auto) 8.9 H Absolute Nucleated RBC 0.020 H Nucleated RBC % (auto) 0.2 Anion Gap 11 L Estim Creat Clear Calc 164.6 Estimated GFR > 60 POC Glucose 133 H Fasting Glucose 129 H Calcium 8.0 L Total Bilirubin 0.8 AST 14 ALT 11 Alkaline Phosphatase 85 D Total Protein 5.2 L Albumin 2.6 L Assessment and Plan (1) Acute respiratory failure: Status: Acute (2) Atrial fibrillation with RVR: Status: Acute (3) Sacral decubitus ulcer: Status: Acute Plan 66-year-old lady with underlying alcoholic cirrhosis, dementia, schizoaffective disorder a admitted with acute? 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 On 12/06 she again developped respiratory failure nearly obtunded with no gag reflex and was transfered yet again to ICU and again was intubated and mechanically ventilated? and extubated again and transfer back to medical floor on 12/15 1.Acute respiratory failure secondary to angioedema requiring intubation and ventilatory support for airway protection intubated on 11/27,? extubated 11/29/2021, reintubated on 12/06 and extubated 12/13. Respiratory failure of of multifactorial etiology including COPD,? possible pneumonia and heart failure and Pneumonia. -overnight oximetry..will need overnight O2/likely CPaP -will arrange at [facility] 2.Chronic AFib -Rate conttrol adequate on Metoprolol 75 bid/Digoxin, - adjust as indicated 3.Chronic diastolic CHF ( well compensated) - Continue HCTZ/Aldactone 4COPD exacerbation -Bronchodilators/Steroids - titrate O2. Overnight oximetry 5.DMII - Acceeptable control on current therapies 8. Schizoaffective disorder - restart outpatieent meds 9.Stage III coccyx decub -return with new wound vac to [facility]...likely 12/27/20 -Wound care as per facility regimen Cassandra Full Code Quality Stroke Does the patient have a stroke diagnosis?: No VTE Prior VTE?: No VTE Risk Level:: Medical - moderate - high VTE Device Contraindication: Treatment Not Indicated VTE Drug Contraindication: N/A - Med Ordered
[2021-12-25 12:00] VITALS: BP 165/72; PULSE 74; RESP 25; TEMP 36.3; O2SAT 94
[2021-12-25 12:51] LABS: Glucose, Whole Blood 119 mg/dL (60-115)
[2021-12-25 15:13] VITALS: BP 146/64; PULSE 78; RESP 18; TEMP 36.4; O2SAT 98
[2021-12-25 16:11] LABS: Glucose, Whole Blood 144 mg/dL (60-115)
[2021-12-25 19:07] VITALS: BP 134/72; PULSE 94; RESP 19; TEMP 36.9; O2SAT 95
[2021-12-25] MEDS: Insulin Lispro 100 UNIT/ML 3 ML VIAL SUBCUT (20:05)
[2021-12-25 20:08] LABS: Glucose, Whole Blood 151 mg/dL (60-115)
[2021-12-25] MEDS: Haloperidol Lactate 5 MG/ML VIAL 2.5 MG IVPUSH (22:00)
[2021-12-25 23:27] VITALS: BP 172/74; PULSE 86; RESP 24; TEMP 36.1; O2SAT 96
[2021-12-26 03:34] VITALS: BP 139/63; PULSE 89; RESP 20; TEMP 36.4; O2SAT 92
[2021-12-26] MEDS: Morphine Sulfate 4 MG/ML CARTRIDGE 3 MG IVPUSH ×4 (03:50→21:01)
[2021-12-26 07:28] LABS: Alanine Aminotransferase 9 U/L (0-31); Albumin Level 2.7 g/dL (3.5-5.0); Alkaline Phosphatase 86 U/L (39-117); Anion Gap 11 (12-20); Aspartate Amino Transferase 12 U/L (5-31); Bilirubin Total 0.9 mg/dL (0.0-1.0); Blood Urea Nitrogen 6 mg/dL (9-16); Calcium 8.3 mg/dL (8.4-10.2); Carbon Dioxide 36 mmol/L (22-29); Chloride 95 mmol/L (96-108); Creatinine Clr Calc Pharmacy 161.3; Estimated Glomerular Filt Rate > 60; Glucose Fasting 141 mg/dL (60-99); Potassium 3.9 mmol/L (3.3-5.1); Sodium 138 mmol/L (135-145); Total Protein 5.3 g/dL (6.5-8.0)
[2021-12-26 07:32] LABS: Glucose, Whole Blood 138 mg/dL (60-115)
[2021-12-26 08:00] VITALS: BP 168/71; PULSE 94; RESP 20; TEMP 35.8; O2SAT 100
[2021-12-26] MEDS: Spironolactone 25 MG TABLET PO (09:45)
[2021-12-26] MEDS: Apixaban 5 MG TABLET PO ×2 (09:45→20:55)
[2021-12-26] MEDS: Atorvastatin Calcium 10 MG TABLET PO (09:45)
[2021-12-26] MEDS: Digoxin 0.25 MG TABLET PO (09:45)
[2021-12-26] MEDS: Metoprolol Tartrate 25 MG TABLET 75 MG PO ×2 (09:45→20:57)
[2021-12-26] MEDS: Nystatin Powder 15 GM BOTTLE 1 APPL TOPICAL ×2 (09:47→16:05)
[2021-12-26] MEDS: 0.9 % Sodium Chloride Flush 3 ML SYRINGE IVFLUSH ×3 (09:50→21:08)
[2021-12-26 11:31] LABS: Glucose, Whole Blood 140 mg/dL (60-115)
[2021-12-26 11:48] VITALS: BP 167/69; PULSE 77; RESP 20; TEMP 36.5; O2SAT 97
[2021-12-26] MEDS: ondansetron HCL 4 MG/2 ML VIAL IVPUSH (13:26)
[2021-12-26] MEDS: Acetaminophen 325 MG TABLET 650 MG PO (13:26)
--- NOTE | 2021-12-26 13:32 | P.PNIM_ITS ---
Subjective Subjective Date of Service: 12/26/21 Interval History: no acute issues overnight Review of Systems denies chest pain Breathing improved ...still mild SOB Denies nausea vomiting diarrhea Physical Exam Vital Signs: Vital Signs: Last Vital Signs Temp 97.7 F 12/26/21 11:48 Pulse 77 12/26/21 11:48 Resp 20 12/26/21 11:48 BP 167/69 H 12/26/21 11:48 Pulse Ox 97 12/26/21 11:48 Oxygen Flow Rate 30 12/02/21 00:00 BMI result Body Mass Index 54.4 Const: Other: no acute distress Resp: Other: scattered expiratory wheezes all martinez Cardio: Other: irregularly irregular; no S4 positive S1-S2 no S3 without murmurs or gallops Skin: Other: stage III sacral decub Extrem: Other: no edema bilaterally Objective Data Active Medications Acetaminophen (Acetaminophen 325 Mg Tablet) 650 mg PO Q6H PRN PRN Reason: Fever Last Admin: 12/26/21 13:26 Dose: 650 mg Documented by: CHRISTIANO Apixaban (Apixaban 5 Mg Tablet) 5 mg PO BID [facility] Last Admin: 12/26/21 09:45 Dose: 5 mg Documented by: CHRISTIANO Atorvastatin Calcium (Atorvastatin Calcium 10 Mg Tablet) 10 mg PO DAILY [facility] Last Admin: 12/26/21 09:45 Dose: 10 mg Documented by: CHRISTIANO Digoxin (Digoxin 0.25 Mg Tablet) 0.25 mg PO DAILY [facility] Last Admin: 12/26/21 09:45 Dose: 0.25 mg Documented by: CHRISTIANO Insulin Human Lispro (Insulin Lispro 100 Unit/Ml 3 Ml Vial) 0 unit SUBCUT QIDACHS [facility]; Protocol Last Admin: 12/26/21 11:43 Dose: Not Given Documented by: CHRISTIANO Non-Admin Reason: No Insulin Coverage Metoprolol Tartrate (Metoprolol Tartrate 25 Mg Tablet) 75 mg PO BID [facility]; Protocol Last Admin: 12/26/21 09:45 Dose: 75 mg Documented by: CHRISTIANO Morphine Sulfate (Morphine Sulfate 4 Mg/Ml Cartridge) 3 mg IVPUSH Q3H PRN; Protocol PRN Reason: Pain, Moderate (Pain Scale 4-6 Last Admin: 12/26/21 13:26 Dose: 3 mg Documented by: CHRISTIANO Nystatin (Nystatin Powder 15 Gm Bottle) 1 appl TOPICAL TID [facility]; Protocol Last Admin: 12/26/21 09:47 Dose: 1 appl Documented by: CHRISTIANO Ondansetron HCl (Ondansetron Hcl 4 Mg/2 Ml Vial) 4 mg IVPUSH Q8H PRN PRN Reason: Nausea Last Admin: 12/26/21 13:26 Dose: 4 mg Documented by: CHRISTIANO Pharmacy Consult (Consult Rx Perform Med Rec) 1 each MISCELLANE ONCE PRN PRN Reason: Consult order Sodium Chloride (0.9 % Sodium Chloride Flush 3 Ml Syringe) 3 ml IVFLUSH QSHIFT [facility] Last Admin: 12/26/21 09:50 Dose: 3 ml Documented by: CHRISTIANO Spironolactone (Spironolactone 25 Mg Tablet) 25 mg PO DAILY [facility]; Protocol Last Admin: 12/26/21 09:45 Dose: 25 mg Documented by: CHRISTIANO Labs CBC & Chem 7: 12/25/21 06:40 12/26/21 06:05 Labs: Laboratory Results - last 24 hr 12/25/21 12/25/21 12/26/21 15:55 19:57 06:05 Anion Gap 11 L Estim Creat Clear Calc 161.3 Estimated GFR > 60 POC Glucose 144 H 151 H Fasting Glucose 141 H Calcium 8.3 L Total Bilirubin 0.9 AST 12 ALT 9 Alkaline Phosphatase 86 Total Protein 5.3 L Albumin 2.7 L 12/26/21 12/26/21 07:21 11:24 Anion Gap Estim Creat Clear Calc Estimated GFR POC Glucose 138 H 140 H Fasting Glucose Calcium Total Bilirubin AST ALT Alkaline Phosphatase Total Protein Albumin Assessment and Plan (1) Acute respiratory failure: Status: Acute (2) Acute on chronic diastolic (congestive) heart failure: Status: Acute (3) CKD (chronic kidney disease): Status: Acute Plan 66-year-old lady with underlying alcoholic cirrhosis, dementia, schizoaffective disorder a admitted with acute? 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 On 12/06 she again developped respiratory failure nearly obtunded with no gag reflex and was transfered yet again to ICU and again was intubated and mechanically ventilated? and extubated again and transfer back to medical floor on 12/15 1.Acute respiratory failure secondary to angioedema requiring intubation and ventilatory support for airway protection intubated on 11/27,? extubated 11/29/2021, reintubated on 12/06 and extubated 12/13. Respiratory failure of of multifactorial etiology including COPD,? possible pneumonia and heart failure and Pneumonia. -overnight oximetry..will need overnight O2/likely CPaP -will arrange at [facility] 2.Chronic AFib -Rate conttrol adequate on Metoprolol 75 bid/Digoxin, - adjust as indicated 3.Chronic diastolic CHF ( well compensated) - Continue HCTZ/Aldactone 4COPD exacerbation -Bronchodilators/Steroids - titrate O2. Overnight oximetry 5.DMII - Acceeptable control on current therapies 8. Schizoaffective disorder - restart outpatieent meds 9.Stage III coccyx decub -return with new wound vac to [facility]...supplies ordered -Wound care as per facility regimen Cassandra Full Code Quality Stroke Does the patient have a stroke diagnosis?: No VTE Prior VTE?: No VTE Risk Level:: Medical - moderate - high VTE Device Contraindication: Treatment Not Indicated VTE Drug Contraindication: N/A - Med Ordered
[2021-12-26 15:41] VITALS: BP 137/63; PULSE 81; RESP 18; TEMP 37.1; O2SAT 98
[2021-12-26 15:47] LABS: Glucose, Whole Blood 139 mg/dL (60-115)
[2021-12-26 20:03] LABS: Glucose, Whole Blood 116 mg/dL (60-115)
[2021-12-26 21:01] VITALS: RESP 18
[2021-12-26 21:09] VITALS: BP 143/61; PULSE 86; RESP 18; O2SAT 99
[2021-12-27] VITALS (9 sets, daily range): BP systolic 102–162; BP diastolic 44–67; PULSE 68–94; RESP 16–26; TEMP 36.7–37.6; O2SAT 86–99
[2021-12-27] MEDS: Morphine Sulfate 4 MG/ML CARTRIDGE 3 MG IVPUSH ×3 (06:15→20:57)
[2021-12-27 07:12] LABS: Glucose, Whole Blood 120 mg/dL (60-115)
[2021-12-27 07:20] LABS: MANUAL DIFF FLAG NO
[2021-12-27 07:22] LABS: Basophils Percent Auto 0.4 % (0-2); Eosinophils Absolute Auto 0.3 X10*3/uL (0.0-0.4); Eosinophils Percent Auto 2.9 % (0-4); Hematocrit 31.4 % (37.0-47.0); Hemoglobin 8.9 g/dl (12.0-16.0); Imm Gran Abs Auto 0.25 X10*3/uL (0.00-0.03); Imm Gran Pct Auto 2.6 % (0.0-0.4); Lymphocytes Absolute Auto 0.9 X10*3/uL (1.2-4.9); Lymphocytes Percent Auto 8.9 % (20-40); Mean Corpuscular HGB Conc 28.3 g/dl (31.0-35.0); Mean Corpuscular Hemoglobin 22.3 pg (27.0-33.0); Mean Corpuscular Volume 78.7 fL (80.0-98.0); Mean Platelet Volume 10.3 fL (9.4-12.3); Monocytes Percent Auto 10.2 % (2-11); NRBC Pct Auto 0.2 /100WBC (0.0-0.2); Neutrophils Absolute Auto 7.3 x10*3/uL (2.0-8.3); Platelet Count 248 X10*3/uL (160-400); Red Blood Count 3.99 X10*6/uL (4.20-5.50); Red Cell Distribution Width 28.9 % (11.0-16.0); White Blood Count 9.8 X10*3/uL (4.8-10.8)
[2021-12-27 07:38] LABS: Alanine Aminotransferase 9 U/L (0-31); Albumin Level 2.6 g/dL (3.5-5.0); Alkaline Phosphatase 86 U/L (39-117); Anion Gap 12 (12-20); Aspartate Amino Transferase 12 U/L (5-31); Bilirubin Total 0.8 mg/dL (0.0-1.0); Blood Urea Nitrogen 7 mg/dL (9-16); Calcium 8.5 mg/dL (8.4-10.2); Carbon Dioxide 37 mmol/L (22-29); Chloride 97 mmol/L (96-108); Creatinine Clr Calc Pharmacy 164.6; Estimated Glomerular Filt Rate > 60; Glucose Fasting 123 mg/dL (60-99); Sodium 142 mmol/L (135-145); Total Protein 5.4 g/dL (6.5-8.0)
[2021-12-27] MEDS: 0.9 % Sodium Chloride Flush 3 ML SYRINGE IVFLUSH ×2 (09:37→16:19)
[2021-12-27] MEDS: Spironolactone 25 MG TABLET PO (09:37)
[2021-12-27] MEDS: Atorvastatin Calcium 10 MG TABLET PO (09:37)
[2021-12-27] MEDS: Digoxin 0.25 MG TABLET PO (09:37)
[2021-12-27] MEDS: Apixaban 5 MG TABLET PO ×2 (09:37→20:53)
[2021-12-27] MEDS: Metoprolol Tartrate 25 MG TABLET 75 MG PO ×2 (09:37→20:53)
[2021-12-27] MEDS: Morphine Sulfate 4 MG/ML CARTRIDGE IVPUSH (09:38)
[2021-12-27] MEDS: Nystatin Powder 15 GM BOTTLE 1 APPL TOPICAL ×3 (09:39→20:53)
--- NOTE | 2021-12-27 09:41 | MHC.CM.PN ---
pt to be dcd today at 9;30 TO [facility] LEFT MESSAGE FOR PTS GUARDIAN VALENTÍN JOHN BOOKED FOR 2
[2021-12-27 11:14] LABS: Glucose, Whole Blood 154 mg/dL (60-115)
--- NOTE | 2021-12-27 11:19 | P.PNGS_ITS ---
Subjective Subjective Date of Service: 12/27/21 Interval history: Patient reporting pain from decubitus ulcer on back Physical Exam Vital Signs: Vital Signs: Last Vital Signs Temp 99.2 F 12/27/21 08:00 Pulse 88 12/27/21 08:00 Resp 20 12/27/21 08:00 BP 162/63 H 12/27/21 08:00 Pulse Ox 96 12/27/21 08:00 Oxygen Flow Rate 30 12/02/21 00:00 BMI result Body Mass Index 54.4 Const: General: awake and confusion Nutritional Appearance: obese Orientation/consciousness: confusion Resp: Effort & Inspection: normal respiratory effort Back/Spine/Pelvis: Back/spine/pelvis image: 1. Site of decubitus ulcer with tunneling extending up back at the superior portion of the wound. Granulation tissue noted at the margins however central portion contains necrotic tissue. Skin: Other: As noted above Neuro: General: confusion Extrem: Right upper extremity: edema Objective Data Active Medications Acetaminophen (Acetaminophen 325 Mg Tablet) 650 mg PO Q6H PRN PRN Reason: Fever Last Admin: 12/26/21 13:26 Dose: 650 mg Documented by: CHRISTIANO Apixaban (Apixaban 5 Mg Tablet) 5 mg PO BID [facility] Last Admin: 12/27/21 09:37 Dose: 5 mg Documented by: AMANDA Atorvastatin Calcium (Atorvastatin Calcium 10 Mg Tablet) 10 mg PO DAILY [facility] Last Admin: 12/27/21 09:37 Dose: 10 mg Documented by: AMANDA Digoxin (Digoxin 0.25 Mg Tablet) 0.25 mg PO DAILY [facility] Last Admin: 12/27/21 09:37 Dose: 0.25 mg Documented by: AMANDA Insulin Human Lispro (Insulin Lispro 100 Unit/Ml 3 Ml Vial) 0 unit SUBCUT QIDACHS [facility]; Protocol Last Admin: 12/27/21 09:37 Dose: Not Given Documented by: AMANDA Non-Admin Reason: No Insulin Coverage Metoprolol Tartrate (Metoprolol Tartrate 25 Mg Tablet) 75 mg PO BID [facility]; Protocol Last Admin: 12/27/21 09:37 Dose: 75 mg Documented by: AMANDA Morphine Sulfate (Morphine Sulfate 4 Mg/Ml Cartridge) 3 mg IVPUSH Q3H PRN; Protocol PRN Reason: Pain, Moderate (Pain Scale 4-6 Last Admin: 12/27/21 06:15 Dose: 3 mg Documented by: JOE Morphine Sulfate (Morphine Sulfate 4 Mg/Ml Cartridge) 4 mg IVPUSH ONCE PRN; Protocol PRN Reason: Pain, Severe (Pain Scale 7-10) Last Admin: 12/27/21 09:38 Dose: 4 mg Documented by: AMANDA Nystatin (Nystatin Powder 15 Gm Bottle) 1 appl TOPICAL TID [facility]; Protocol Last Admin: 12/27/21 09:39 Dose: 1 appl Documented by: AMANDA Ondansetron HCl (Ondansetron Hcl 4 Mg/2 Ml Vial) 4 mg IVPUSH Q8H PRN PRN Reason: Nausea Last Admin: 12/26/21 13:26 Dose: 4 mg Documented by: CHRISTIANO Pharmacy Consult (Consult Rx Perform Med Rec) 1 each MISCELLANE ONCE PRN PRN Reason: Consult order Sodium Chloride (0.9 % Sodium Chloride Flush 3 Ml Syringe) 3 [facility] Last Admin: 12/27/21 09:37 Dose: 3 ml Documented by: AMANDA Spironolactone (Spironolactone 25 Mg Tablet) 25 mg PO DAILY [facility]; Protocol Last Admin: 12/27/21 09:37 Dose: 25 mg Documented by: AMANDA Labs CBC & Chem 7: 12/27/21 06:51 12/27/21 06:51 Labs: Laboratory Results - last 24 hr 12/26/21 12/26/21 12/26/21 11:24 15:43 19:58 MCV MCH MCHC RDW Plt Count MPV Immature Gran % (Auto) Neut % (Auto) Lymph % (Auto) [place] % (Auto) Eos % (Auto) Baso % (Auto) Lymph # (Auto) [place] # (Auto) Eos # (Auto) Baso # (Auto) Abs Immat Gran (auto) Absolute Neuts (auto) Absolute Nucleated RBC Nucleated RBC % (auto) Anion Gap Estim Creat Clear Calc Estimated GFR POC Glucose 140 H 139 H 116 H Fasting Glucose Calcium Total Bilirubin AST ALT Alkaline Phosphatase Total Protein Albumin 12/27/21 12/27/21 12/27/21 06:51 06:51 07:05 MCV 78.7 L MCH 22.3 L MCHC 28.3 L RDW 28.9 H Plt Count 248 MPV 10.3 Immature Gran % (Auto) 2.6 H Neut % (Auto) 75.0 H Lymph % (Auto) 8.9 L [place] % (Auto) 10.2 Eos % (Auto) 2.9 Baso % (Auto) 0.4 Lymph # (Auto) 0.9 L [place] # (Auto) 1.0 Eos # (Auto) 0.3 Baso # (Auto) 0.0 Abs Immat Gran (auto) 0.25 H Absolute Neuts (auto) 7.3 Absolute Nucleated RBC 0.020 H Nucleated RBC % (auto) 0.2 Anion Gap 12 Estim Creat Clear Calc 164.6 Estimated GFR > 60 POC Glucose 120 H Fasting Glucose 123 H Calcium 8.5 Total Bilirubin 0.8 AST 12 ALT 9 Alkaline Phosphatase 86 Total Protein 5.4 L Albumin 2.6 L 12/27/21 11:10 MCV MCH MCHC RDW Plt Count MPV Immature Gran % (Auto) Neut % (Auto) Lymph % (Auto) [place] % (Auto) Eos % (Auto) Baso % (Auto) Lymph # (Auto) [place] # (Auto) Eos # (Auto) Baso # (Auto) Abs Immat Gran (auto) Absolute Neuts (auto) Absolute Nucleated RBC Nucleated RBC % (auto) Anion Gap Estim Creat Clear Calc Estimated GFR POC Glucose 154 H Fasting Glucose Calcium Total Bilirubin AST ALT Alkaline Phosphatase Total Protein Albumin Procedures Date of Service Date of Service: 12/27/21 Progress Note: A&P Assessment and plan (1) Sacral decubitus ulcer: Status: Acute Plan 66-year-old female patient with multiple medical problems with a large sacral decubitus ulcer currently treated with wound VAC however central portion of the wound continues to have some necrotic tissue which cannot be easily debrided at the bedside. I discussed the finding in detail with patient's guardian, Akil Lizarraga ). After discussion of the procedure, risks, and alternatives, he consents to the surgery. She has been added onto the operative schedule for tomorrow. Fall Risk Details Current Medications: Current Medications Acetaminophen (Acetaminophen 325 Mg Tablet) 650 mg PO Q6H PRN PRN Reason: Fever Last Admin: 12/26/21 13:26 Dose: 650 mg Documented by: Apixaban (Apixaban 5 Mg Tablet) 5 mg PO BID [facility] Last Admin: 12/27/21 09:37 Dose: 5 mg Documented by: Atorvastatin Calcium (Atorvastatin Calcium 10 Mg Tablet) 10 mg PO DAILY [facility] Last Admin: 12/27/21 09:37 Dose: 10 mg Documented by: Digoxin (Digoxin 0.25 Mg Tablet) 0.25 mg PO DAILY [facility] Last Admin: 12/27/21 09:37 Dose: 0.25 mg Documented by: Insulin Human Lispro (Insulin Lispro 100 Unit/Ml 3 Ml Vial) 0 unit SUBCUT QIDACHS [facility]; Protocol Last Admin: 12/27/21 09:37 Dose: Not Given Documented by: Metoprolol Tartrate (Metoprolol Tartrate 25 Mg Tablet) 75 mg PO BID [facility]; Protocol Last Admin: 12/27/21 09:37 Dose: 75 mg Documented by: Morphine Sulfate (Morphine Sulfate 4 Mg/Ml Cartridge) 3 mg IVPUSH Q3H PRN; Protocol PRN Reason: Pain, Moderate (Pain Scale 4-6 Last Admin: 12/27/21 06:15 Dose: 3 mg Documented by: Morphine Sulfate (Morphine Sulfate 4 Mg/Ml Cartridge) 4 mg IVPUSH ONCE PRN; Protocol PRN Reason: Pain, Severe (Pain Scale 7-10) Last Admin: 12/27/21 09:38 Dose: 4 mg Documented by: Nystatin (Nystatin Powder 15 Gm Bottle) 1 appl TOPICAL TID [facility]; Protocol Last Admin: 12/27/21 09:39 Dose: 1 appl Documented by: Ondansetron HCl (Ondansetron Hcl 4 Mg/2 Ml Vial) 4 mg IVPUSH Q8H PRN PRN Reason: Nausea Last Admin: 12/26/21 13:26 Dose: 4 mg Documented by: Pharmacy Consult (Consult Rx Perform Med Rec) 1 each MISCELLANE ONCE PRN PRN Reason: Consult order Sodium Chloride (0.9 % Sodium Chloride Flush 3 Ml Syringe) [facility] Last Admin: 12/27/21 09:37 Dose: 3 ml Documented by: Spironolactone (Spironolactone 25 Mg Tablet) 25 mg PO DAILY [facility]; Protocol Last Admin: 12/27/21 09:37 Dose: 25 mg Documented by: Time Spent With Patient Time: Total time spent is greater than 50% in coordination of care (as documented) at patient's floor/unit and/or counseling patient: Time with patient: 15 - 24 minutes Quality Stroke Does the patient have a stroke diagnosis?: No VTE Prior VTE?: No VTE Risk Level:: Medical - moderate - high VTE Device Contraindication: Treatment Not Indicated VTE Drug Contraindication: N/A - Med Ordered
--- NOTE | 2021-12-27 11:28 | MHC.CM.PN ---
dc cancelled atty nori notified
[2021-12-27] MEDS: Insulin Lispro 100 UNIT/ML 3 ML VIAL SUBCUT ×2 (11:45→17:00)
--- NOTE | 2021-12-27 12:32 | P.PNIM_ITS ---
Subjective Subjective Date of Service: 12/27/21 Interval History: no acute issues overnight Physical Exam Vital Signs: Vital Signs: Last Vital Signs Temp 98.5 F 12/27/21 11:15 Pulse 80 12/27/21 11:15 Resp 16 12/27/21 11:15 BP 121/44 L 12/27/21 11:15 Pulse Ox 93 12/27/21 11:15 Oxygen Flow Rate 30 12/02/21 00:00 BMI result Body Mass Index 54.4 Const: Other: no acute distress Resp: Other: scattered expiratory wheezes all martinez Cardio: Other: irregularly irregular; no S4 positive S1-S2 no S3 without murmurs or gallops Skin: Other: stage III sacral decub Extrem: Other: no edema bilaterally Objective Data Active Medications Acetaminophen (Acetaminophen 325 Mg Tablet) 650 mg PO Q6H PRN PRN Reason: Fever Last Admin: 12/26/21 13:26 Dose: 650 mg Documented by: CHRISTIANO Apixaban (Apixaban 5 Mg Tablet) 5 mg PO BID [facility] Last Admin: 12/27/21 09:37 Dose: 5 mg Documented by: AMANDA Atorvastatin Calcium (Atorvastatin Calcium 10 Mg Tablet) 10 mg PO DAILY [facility] Last Admin: 12/27/21 09:37 Dose: 10 mg Documented by: AMANDA Digoxin (Digoxin 0.25 Mg Tablet) 0.25 mg PO DAILY [facility] Last Admin: 12/27/21 09:37 Dose: 0.25 mg Documented by: AMANDA Insulin Human Lispro (Insulin Lispro 100 Unit/Ml 3 Ml Vial) 0 unit SUBCUT QIDACHS [facility]; Protocol Last Admin: 12/27/21 11:45 Dose: 4 unit Documented by: AMANDA Metoprolol Tartrate (Metoprolol Tartrate 25 Mg Tablet) 75 mg PO BID [facility]; Protocol Last Admin: 12/27/21 09:37 Dose: 75 mg Documented by: AMANDA Morphine Sulfate (Morphine Sulfate 4 Mg/Ml Cartridge) 3 mg IVPUSH Q3H PRN; Protocol PRN Reason: Pain, Moderate (Pain Scale 4-6 Last Admin: 12/27/21 06:15 Dose: 3 mg Documented by: JOE Morphine Sulfate (Morphine Sulfate 4 Mg/Ml Cartridge) 4 mg IVPUSH ONCE PRN; Protocol PRN Reason: Pain, Severe (Pain Scale 7-10) Last Admin: 12/27/21 09:38 Dose: 4 mg Documented by: AMANDA Nystatin (Nystatin Powder 15 Gm Bottle) 1 appl TOPICAL TID [facility]; Protocol Last Admin: 12/27/21 09:39 Dose: 1 appl Documented by: AMANDA Ondansetron HCl (Ondansetron Hcl 4 Mg/2 Ml Vial) 4 mg IVPUSH Q8H PRN PRN Reason: Nausea Last Admin: 12/26/21 13:26 Dose: 4 mg Documented by: CHRISTIANO Pharmacy Consult (Consult Rx Perform Med Rec) 1 each MISCELLANE ONCE PRN PRN Reason: Consult order Sodium Chloride (0.9 % Sodium Chloride Flush 3 Ml Syringe) 3 ml IVFLUSH QSHIFT [facility] Last Admin: 12/27/21 09:37 Dose: 3 ml Documented by: AMANDA Spironolactone (Spironolactone 25 Mg Tablet) 25 mg PO DAILY [facility]; Protocol Last Admin: 12/27/21 09:37 Dose: 25 mg Documented by: AMANDA Labs CBC & Chem 7: 12/27/21 06:51 12/27/21 06:51 Labs: Laboratory Results - last 24 hr 12/26/21 12/26/21 12/27/21 15:43 19:58 06:51 MCV MCH MCHC RDW Plt Count MPV Immature Gran % (Auto) Neut % (Auto) Lymph % (Auto) [place] % (Auto) Eos % (Auto) Baso % (Auto) Lymph # (Auto) [place] # (Auto) Eos # (Auto) Baso # (Auto) Abs Immat Gran (auto) Absolute Neuts (auto) Absolute Nucleated RBC Nucleated RBC % (auto) Anion Gap 12 Estim Creat Clear Calc 164.6 Estimated GFR > 60 POC Glucose 139 H 116 H Fasting Glucose 123 H Calcium 8.5 Total Bilirubin 0.8 AST 12 ALT 9 Alkaline Phosphatase 86 Total Protein 5.4 L Albumin 2.6 L 12/27/21 12/27/21 12/27/21 06:51 07:05 11:10 MCV 78.7 L MCH 22.3 L MCHC 28.3 L RDW 28.9 H Plt Count 248 MPV 10.3 Immature Gran % (Auto) 2.6 H Neut % (Auto) 75.0 H Lymph % (Auto) 8.9 L [place] % (Auto) 10.2 Eos % (Auto) 2.9 Baso % (Auto) 0.4 Lymph # (Auto) 0.9 L [place] # (Auto) 1.0 Eos # (Auto) 0.3 Baso # (Auto) 0.0 Abs Immat Gran (auto) 0.25 H Absolute Neuts (auto) 7.3 Absolute Nucleated RBC 0.020 H Nucleated RBC % (auto) 0.2 Anion Gap Estim Creat Clear Calc Estimated GFR POC Glucose 120 H 154 H Fasting Glucose Calcium Total Bilirubin AST ALT Alkaline Phosphatase Total Protein Albumin Assessment and Plan (1) Acute respiratory failure: Status: Acute (2) Sacral decubitus ulcer: Status: Acute (3) Atrial fibrillation with RVR: Status: Acute Plan 66-year-old lady with underlying alcoholic cirrhosis, dementia, schizoaffective disorder a admitted with acute? 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 On 12/06 she again developped respiratory failure nearly obtunded with no gag reflex and was transfered yet again to ICU and again was intubated and mechanically ventilated? and extubated again and transfer back to medical floor on 12/15 1.Acute respiratory failure secondary to angioedema requiring intubation and ventilatory support for airway protection intubated on 11/27,? extubated , reintubated on 12/06 and extubated 12/13. Respiratory failure of of multifactorial etiology including COPD,? possible pneumonia and heart failure and Pneumonia. -overnight oximetry..will need overnight O2/likely CPaP -will arrange at [facility] 2.Stage III coccyx decub - worsening despite Vac. - Dr Jiménez tot take to OR in am for debridement 3.Chronic AFib -Rate conttrol adequate on Metoprolol 75 bid/Digoxin, - adjust as indicated 4.Chronic diastolic CHF ( well compensated) - Continue HCTZ/Aldactone 5.COPD exacerbation -Bronchodilators/Steroids - titrate O2. Overnight oximetry 6.DMII - Acceeptable control on current therapies 7. Schizoaffective disorder - restart outpatieent meds Cassandra Full Code Quality Stroke Does the patient have a stroke diagnosis?: No VTE Prior VTE?: No VTE Risk Level:: Medical - moderate - high VTE Device Contraindication: Treatment Not Indicated VTE Drug Contraindication: N/A - Med Ordered
--- NOTE | 2021-12-27 13:39 | MHC.SLORD ---
Speech Language Pathology Order Status: REAL ESTATE PHOTOGRAPHER spoke with RN this morning- Patient positioned on her side at this time and will be NPO at midnight for a procedure- Patient is on PUREED (NDD1) solids and NECTAR THICK liquids. REAL ESTATE PHOTOGRAPHER will continue to follow.
--- NOTE | 2021-12-27 13:47 | MHC.CLN ---
F/U PO INTAKE VERY POOR; RECORDED 0% DIET RX: NPO PENDING PROCEDURE IN OR RECOMMEND WHEN DIET TO ADVANCE, RE-START ENSURE BID AND LELAND BID TO PROVIDE [id number], 45G PROTEIN FOR INCREASE KCALS AND PROMOTE WOUND HEALING GARDENER FLORIST CONTINUES TO ATTEMPT TO WORK WITH PT CONTINUE STRICT PO MONITORING
--- NOTE | 2021-12-27 13:54 | PC.NURSE ---
Wound assessment completed. Patient has a stage 3 coccyx/ buttocks pressure ulcer. Veraflo wound vac was applied on Monday which was on all weekend. When being changed on Monday morning, there was a very strong odor and necrotic tissue in center of wound with granulation on outer edges. This nurse immediately notified Dr. Hogan and Dr. Jiménez. Both came to the room within minutes of each other and agreed with this nurse that a surgical debridement needed to be done in the OR. She is scheduled for tomorrow 10/27/22.
[2021-12-27 16:13] LABS: Glucose, Whole Blood 214 mg/dL (60-115)
[2021-12-27 20:18] LABS: Glucose, Whole Blood 131 mg/dL (60-115)
[2021-12-27] MEDS: Acetaminophen 325 MG TABLET 650 MG PO (20:53)
[2021-12-27] MEDS: 0.9 % Sodium Chloride 1,000 ML 100 ML IVCONT (20:53)
[2021-12-28] VITALS (18 sets, daily range): BP systolic 127–182; BP diastolic 45–75; PULSE 73–95; RESP 16–28; TEMP 36.7–37.3; O2SAT 97–100; BMI 54.5
[2021-12-28] MEDS: 0.9 % Sodium Chloride 1,000 ML 100 ML IVCONT ×2 (05:17→16:31)
[2021-12-28] MEDS: Morphine Sulfate 4 MG/ML CARTRIDGE 3 MG IVPUSH (06:21)
[2021-12-28 06:32] LABS: MANUAL DIFF FLAG NO
[2021-12-28 06:47] LABS: Basophils Absolute Auto 0.1 X10*3/uL (0.0-0.2); Basophils Percent Auto 0.4 % (0-2); Eosinophils Absolute Auto 0.2 X10*3/uL (0.0-0.4); Eosinophils Percent Auto 1.9 % (0-4); Hematocrit 34.3 % (37.0-47.0); Hemoglobin 9.7 g/dl (12.0-16.0); Imm Gran Pct Auto 2.4 % (0.0-0.4); Lymphocytes Percent Auto 7.9 % (20-40); Mean Corpuscular HGB Conc 28.3 g/dl (31.0-35.0); Mean Corpuscular Hemoglobin 22.2 pg (27.0-33.0); Mean Corpuscular Volume 78.7 fL (80.0-98.0); Monocytes Absolute Auto 1.1 X10*3/uL (0.1-1.2); NRBC Pct Auto 0.2 /100WBC (0.0-0.2); Neutrophils Absolute Auto 9.7 x10*3/uL (2.0-8.3); Neutrophils Percent Auto 78.4 % (45-73); Platelet Count 256 X10*3/uL (160-400); Red Blood Count 4.36 X10*6/uL (4.20-5.50); Red Cell Distribution Width 28.9 % (11.0-16.0); White Blood Count 12.4 X10*3/uL (4.8-10.8)
[2021-12-28 07:19] LABS: Alanine Aminotransferase 9 U/L (0-31); Albumin Level 2.5 g/dL (3.5-5.0); Alkaline Phosphatase 92 U/L (39-117); Anion Gap 11 (12-20); Aspartate Amino Transferase 14 U/L (5-31); Bilirubin Total 0.7 mg/dL (0.0-1.0); Blood Urea Nitrogen 11 mg/dL (9-16); Calcium 8.2 mg/dL (8.4-10.2); Carbon Dioxide 37 mmol/L (22-29); Chloride 99 mmol/L (96-108); Creatinine Clr Calc Pharmacy 158.3; Estimated Glomerular Filt Rate > 60; Glucose Fasting 129 mg/dL (60-99); Potassium 4.2 mmol/L (3.3-5.1); Sodium 143 mmol/L (135-145); Total Protein 5.3 g/dL (6.5-8.0)
[2021-12-28 07:26] LABS: Glucose, Whole Blood 134 mg/dL (60-115)
[2021-12-28] MEDS: 0.9 % Sodium Chloride Flush 3 ML SYRINGE IVFLUSH ×2 (09:40→16:32)
[2021-12-28] MEDS: Nystatin Powder 15 GM BOTTLE 1 APPL TOPICAL ×3 (09:40→21:21)
--- NOTE | 2021-12-28 10:05 | MHC.SLORD ---
Speech Language Pathology Order Status: Pt NPO this a.m. pending surgery for decubitus ulcer. Will re-attempt tomorrow.
[2021-12-28 10:52] LABS: Glucose, Whole Blood 119 mg/dL (60-115)
--- NOTE | 2021-12-28 12:11 | HO.ANESPROP2 ---
HPI - Anesthesia Eval Consult details Narrative: 66 F for debridement of Sacral Decubitis ulcer . [facility] Active Problems Active Problems: All Active Problems (Updated 12/19/21 @ 11:13 by Ibrahima Brown MD) Acute on chronic diastolic (congestive) heart failure (Acute) Hypernatremia (Acute) Sacral decubitus ulcer (Acute) Hyponatremia (Acute) Anemia (Acute) Diastolic CHF with preserved left ventricular function, NYHA class 2 (Acute) CHF exacerbation (Acute) Fever of unknown origin (Acute) Acute encephalopathy (Acute) Acute respiratory failure (Acute) Schizoaffective disorder (Acute) CKD (chronic kidney disease) (Acute) Alcoholic cirrhosis of liver (Acute) Angioedema (Acute) Acute anaphylaxis (Acute) Dyspnea (Acute) Hyponatremia (Acute) Atrial fibrillation with RVR (Acute) Pneumonia (Acute) Chronic hyponatremia (Acute) Acute hyperkalemia (Acute) Past Medical History Medical History Alcoholic cirrhosis of liver Anemia Asthma CKD (chronic kidney disease) Crohn's disease Diastolic CHF with preserved left ventricular function, NYHA class 2 Fever of unknown origin Hyponatremia Hyponatremia Schizoaffective disorder Family History Family history of problems with anesthesia: Unobtainable Surgical History Surgical History No pertinent past surgical history History of Problems with Anesthesia: No (Patient denies prior anesthesia ) Social History Social History Household Members: None Housing: House Patient Tobacco Use Status: Current everyday Tobacco user service: No Meds Allergies Allergy/AdvReac Type Severity Reaction Status Date / Time lisinopril Allergy Severe Angioedema Verified 12/02/21 16:07 Sulfa (Sulfonamide Allergy Intermediate HIVES Verified 11/24/21 20:49 Antibiotics) Active Medications: Current Medications Acetaminophen (Acetaminophen 325 Mg Tablet) 650 mg PO Q6H PRN PRN Reason: Fever Last Admin: 12/27/21 20:53 Dose: 650 mg Documented by: Apixaban (Apixaban 5 Mg Tablet) 5 mg PO BID [facility] Last Admin: 12/27/21 20:53 Dose: 5 mg Documented by: Atorvastatin Calcium (Atorvastatin Calcium 10 Mg Tablet) 10 mg PO DAILY [facility] Last Admin: 12/27/21 09:37 Dose: 10 mg Documented by: Digoxin (Digoxin 0.25 Mg Tablet) 0.25 mg PO DAILY [facility] Last Admin: 12/27/21 09:37 Dose: 0.25 mg Documented by: Sodium Chloride (Ns) 1,000 mls @ 100 mls/hr IVCONT .Q10H [facility] Last Admin: 12/28/21 05:17 Dose: 100 mls/hr Documented by: Insulin Human Lispro (Insulin Lispro 100 Unit/Ml 3 Ml Vial) 0 unit SUBCUT QIDACHS [facility]; Protocol Last Admin: 12/28/21 11:19 Dose: Not Given Documented by: Metoprolol Tartrate (Metoprolol Tartrate 25 Mg Tablet) 75 mg PO BID [facility]; Protocol Last Admin: 12/27/21 20:53 Dose: 75 mg Documented by: Morphine Sulfate (Morphine Sulfate 4 Mg/Ml Cartridge) 4 mg IVPUSH ONCE PRN; Protocol PRN Reason: Pain, Severe (Pain Scale 7-10) Last Admin: 12/27/21 09:38 Dose: 4 mg Documented by: Nystatin (Nystatin Powder 15 Gm Bottle) 1 appl TOPICAL TID [facility]; Protocol Last Admin: 12/28/21 09:40 Dose: 1 appl Documented by: Ondansetron HCl (Ondansetron Hcl 4 Mg/2 Ml Vial) 4 mg IVPUSH Q8H PRN PRN Reason: Nausea Last Admin: 12/26/21 13:26 Dose: 4 mg Documented by: Pharmacy Consult (Consult Rx Perform Med Rec) 1 each MISCELLANE ONCE PRN PRN Reason: Consult order Sodium Chloride (0.9 % Sodium Chloride Flush 3 Ml Syringe) 3 ml IVFLUSH QSHIFT [facility] Last Admin: 12/28/21 09:40 Dose: 3 ml Documented by: Spironolactone (Spironolactone 25 Mg Tablet) 25 mg PO DAILY [facility]; Protocol Last Admin: 12/27/21 09:37 Dose: 25 mg Documented by: Home Medications Medication Instructions Recorded Confirmed Last Taken Type Saccharomyces boulardii 250 mg 250 mg PO BID 11/25/21 11/25/21 11/24/21 History capsule (Florastor) acetaminophen 325 mg tablet 650 mg PO Q4H PRN 11/25/21 11/25/21 11/23/21 History albuterol sulfate 90 mcg/actuation 2 puff INHALATION Q4H PRN 11/25/21 11/25/21 11/22/21 History aerosol inhaler (ProAir HFA) aluminum-mag hydroxide-simethicone 30 ml PO Q4H PRN 11/25/21 11/25/21 11/16/21 History 200 mg-200 mg-20 mg/5 mL oral susp ([place]) atorvastatin 10 mg tablet 1 tab PO DAILY 11/25/21 11/25/21 11/24/21 History azathioprine 50 mg tablet 2 tab PO DAILY 11/25/21 11/25/21 11/24/21 History calcitonin (salmon) 200 1 spray INTRANASAL DAILY 11/25/21 11/25/21 11/24/21 History unit/actuation nasal spray calcium carbonate 600 mg-vitamin 1 tab PO DAILY 11/25/21 11/25/21 11/24/21 History D3 5 mcg (200 unit) tablet (Calcium 600 + D(3)) cranberry fruit 450 mg tablet 450 mg PO BID 11/25/21 11/25/21 11/24/21 History (cranberry) cyclobenzaprine 10 mg tablet 1 tab PO Q24H PRN 11/25/21 11/25/21 11/21/21 History docusate sodium 100 mg tablet 100 mg PO BID 11/25/21 11/25/21 11/24/21 History dulaglutide 1.5 mg/0.5 mL 1.5 mg SUBCUT TU 11/25/21 11/25/21 11/23/21 History subcutaneous pen injector (Trulicity) gabapentin 100 mg capsule 1 cap PO TID 11/25/21 11/25/21 11/24/21 History haloperidol 5 mg tablet 5 mg PO BID 11/25/21 11/25/21 11/24/21 History hydroxyzine HCl 25 mg tablet 25 mg PO QID 11/25/21 11/25/21 11/24/21 History insulin detemir U-100 100 unit/mL 110 unit SUBCUT BID@0630,1630 11/25/21 11/25/21 11/24/21 History (3 mL) subcutaneous pen insulin regular human 100 unit/mL 1 sliding scale dose SUBCUT 11/25/21 11/25/21 11/24/21 History injection solution (Novolin R USEASDIRECTD Regular U-100 Insulin) ipratropium 20 mcg-albuterol 100 1 puff INHALATION BID 11/25/21 11/25/21 11/24/21 History mcg/actuation mist for inhalation (Combivent Respimat) lanolin alcohols-mineral 1 appl TOPICAL DAILY 11/25/21 11/25/21 Unknown History oil-w.petrolatum-ceresin topical cream (Minerin Creme) lisinopril 5 mg tablet 5 mg PO DAILY 11/25/21 11/25/21 11/24/21 History menthol 5 % topical patch (Bengay 1 patch TOPICAL DAILY PRN 11/25/21 11/25/21 Unknown History Ultra Strength (menthol)) metformin 1,000 mg tablet 1,000 mg PO BID 11/25/21 11/25/21 11/24/21 History mirtazapine 15 mg tablet 1 tab PO BEDTIME 11/25/21 11/25/21 11/23/21 History multivitamin 1 tab PO DAILY 11/25/21 11/25/21 11/24/21 History nicotine 7 mg/24 hr daily 1 patch TRANSDERMAL Q24H PRN 11/25/21 11/25/21 Unknown History transdermal patch nitrofurantoin macrocrystal 50 mg 1 cap PO BEDTIME 11/25/21 11/25/21 11/23/21 History capsule nitroglycerin 0.4 mg sublingual 0.4 mg SUBLINGUAL Q5M PRN 11/25/21 11/25/21 Unknown History tablet nystatin 100,000 unit/gram topical 1 appl TOPICAL BID 11/25/21 11/25/21 Unknown History powder omeprazole 20 mg tablet,delayed 20 mg PO BID 11/25/21 11/25/21 11/24/21 History release oxycodone-acetaminophen 5 mg-325 1 tab PO QID 11/25/21 11/25/21 11/24/21 History mg tablet sennosides 8.6 mg tablet (senna) 8.6 mg PO DAILY 11/25/21 11/25/21 11/24/21 History sennosides 8.6 mg tablet (senna) 17.2 mg PO BEDTIME 11/25/21 11/25/21 11/23/21 History sitagliptin 100 mg tablet (Januvia) 100 mg PO DAILY 11/25/21 11/25/21 11/24/21 History sodium chloride 0.65 % nasal spray 2 spray INTRANASAL Q4H PRN 11/25/21 11/25/21 11/24/21 History aerosol (Deep Sea Nasal) sodium chloride 1,000 mg soluble 1,000 mg PO TID 11/25/21 11/25/21 11/24/21 History tablet tolterodine 4 mg capsule,extended 4 mg PO DAILY 11/25/21 11/25/21 11/24/21 History release 24 hr Exam Exam Date and Time: December 28, 2021 1211 Height,Weight and Vital Signs: Height 5 ft 6 in Weight 153.2 kg Last Vital Signs Temp 98.4 F 12/28/21 11:25 Pulse 94 12/28/21 11:25 Resp 18 12/28/21 11:25 BP 153/59 H 12/28/21 11:25 Pulse Ox 99 12/28/21 11:25 Oxygen Flow Rate 30 12/02/21 00:00 Pertinent Lab Results Pertinent Lab Results: Laboratory Tests 11/24/21 11/24/21 11/24/21 20:38 20:38 20:38 WBC 17.9 H RBC 5.14 Hgb 9.8 L Hct 33.7 L MCV 65.6 L MCH 19.1 L MCHC 29.1 L RDW 20.6 H Plt Count 395 MPV 8.8 L Immature Gran % (Auto) Cancelled Neut % (Auto) Cancelled Lymph % (Auto) Cancelled Bradley % (Auto) Cancelled Eos % (Auto) Cancelled Baso % (Auto) Cancelled Lymph # (Auto) Cancelled Bradley # (Auto) Cancelled Eos # (Auto) Cancelled Baso # (Auto) Cancelled Abs Immat Gran (auto) Cancelled Absolute Neuts (auto) Cancelled Absolute Nucleated RBC 0.140 H Nucleated RBC % (auto) 0.8 H Neutrophils % (Manual) 89 H Band Neutrophils % 2 L Lymphocytes % (Manual) 6 L Monocytes % (Manual) 3 Abs Neuts (Manual) 16.3 H Lymphocytes # (Manual) 1.1 L Monocytes # (Manual) 0.5 Platelet Estimate NORMAL Plt Morphology Comment NORMAL RBC Morphology NOTED Acanthocytes (Spur) 1+ (0-2) Smear Tech's Comments Smear Path Review PT INR APTT O2 Saturation ABG pH at Pt Temp ABG pH (Temp Correct) ABG pCO2 at Pt Temp ABG pCO2 (Temp Corrct ABG pO2 at Pt Temp ABG pO2 (Temp Correct ABG HCO3 ABG Base Excess (Actual) VBG pH VBG pCO2 VBG pO2 VBG HCO3 VBG O2 Saturation VBG Base Excess Sodium 122 L Potassium 6.5 H* Chloride 89 L Carbon Dioxide 27 Anion Gap 13 BUN 14 Creatinine 0.84 Estim Creat Clear Calc 81.9 Estimated GFR > 60 POC Glucose Random Glucose 90 Fasting Glucose Osmolality Lactic Acid Calcium 8.8 Phosphorus Magnesium 1.9 Total Bilirubin Direct Bilirubin AST ALT Alkaline Phosphatase Ammonia Troponin I High Sens 4.1 B-Natriuretic Peptide 78 Total Protein Albumin Procalcitonin TSH 1.76 Random Cortisol Urine Color Urine Appearance Urine pH Ur Specific [place] Urine Protein Urine Glucose (UA) Urine Ketones Urine Blood Urine Nitrite Ur Leukocyte Esterase Urine RBC Urine WBC Ur Squamous Epith Cells Urine Bacteria Urine Mucus Urine Osmolality Ur Random Sodium Ur Random Potassium Ur Random Chloride Stool Occult Blood Stool Leukocytes, Qual Random Vancomycin Digoxin C. difficile Tox B Gene COVID-19 ([facility]ESS[facility]) COVID-19 Clin Com Influenza Type A (PCR) Influenza Type B (PCR) RSV RNA Qual (PCR) SARS-CoV-2 RNA (RT-PCR) Blood Type Antibody Screen Crossmatch 11/24/21 11/24/21 11/24/21 20:38 20:38 20:38 WBC RBC Hgb Hct MCV MCH MCHC RDW Plt Count MPV Immature Gran % (Auto) Neut % (Auto) Lymph % (Auto) Bradley % (Auto) Eos % (Auto) Baso % (Auto) Lymph # (Auto) Bradley # (Auto) Eos # (Auto) Baso # (Auto) Abs Immat Gran (auto) Absolute Neuts (auto) Absolute Nucleated RBC Nucleated RBC % (auto) Neutrophils % (Manual) Band Neutrophils % Lymphocytes % (Manual) Monocytes % (Manual) Abs Neuts (Manual) Lymphocytes # (Manual) Monocytes # (Manual) Platelet Estimate Plt Morphology Comment RBC Morphology Acanthocytes (Spur) Smear Tech's Comments Smear Path Review PT 14.7 H INR 1.3 H APTT 38.7 H O2 Saturation ABG pH at Pt Temp ABG pH (Temp Correct) ABG pCO2 at Pt Temp ABG pCO2 (Temp Corrct ABG pO2 at Pt Temp ABG pO2 (Temp Correct ABG HCO3 ABG Base Excess (Actual) VBG pH VBG pCO2 VBG pO2 VBG HCO3 VBG O2 Saturation VBG Base Excess Sodium Potassium Chloride Carbon Dioxide Anion Gap BUN Creatinine Estim Creat Clear Calc Estimated GFR POC Glucose Random Glucose Fasting Glucose Osmolality 256 L Lactic Acid Calcium Phosphorus Magnesium Total Bilirubin Direct Bilirubin AST ALT Alkaline Phosphatase Ammonia Troponin I High Sens B-Natriuretic Peptide Total Protein Albumin Procalcitonin TSH Random Cortisol Urine Color Urine Appearance Urine pH Ur Specific [place] Urine Protein Urine Glucose (UA) Urine Ketones Urine Blood Urine Nitrite Ur Leukocyte Esterase Urine RBC Urine WBC Ur Squamous Epith Cells Urine Bacteria Urine Mucus Urine Osmolality Ur Random Sodium Ur Random Potassium Ur Random Chloride Stool Occult Blood Stool Leukocytes, Qual Random Vancomycin Digoxin C. difficile Tox B Gene COVID-19 (JESSY) Negative COVID-19 Clin Com See Note Influenza Type A (PCR) Influenza Type B (PCR) RSV RNA Qual (PCR) SARS-CoV-2 RNA (RT-PCR) Blood Type Antibody Screen Crossmatch 11/24/21 11/25/21 11/25/21 22:10 00:40 01:47 WBC RBC Hgb Hct MCV MCH MCHC RDW Plt Count MPV Immature Gran % (Auto) Neut % (Auto) Lymph % (Auto) Bradley % (Auto) Eos % (Auto) Baso % (Auto) Lymph # (Auto) Bradley # (Auto) Eos # (Auto) Baso # (Auto) Abs Immat Gran (auto) Absolute Neuts (auto) Absolute Nucleated RBC Nucleated RBC % (auto) Neutrophils % (Manual) Band Neutrophils % Lymphocytes % (Manual) Monocytes % (Manual) Abs Neuts (Manual) Lymphocytes # (Manual) Monocytes # (Manual) Platelet Estimate Plt Morphology Comment RBC Morphology Acanthocytes (Spur) Smear Tech's Comments Smear Path Review PT INR APTT O2 Saturation ABG pH at Pt Temp ABG pH (Temp Correct) ABG pCO2 at Pt Temp ABG pCO2 (Temp Corrct ABG pO2 at Pt Temp ABG pO2 (Temp Correct ABG HCO3 ABG Base Excess (Actual) VBG pH VBG pCO2 VBG pO2 VBG HCO3 VBG O2 Saturation VBG Base Excess Sodium 121 L Potassium 5.8 H Chloride 89 L Carbon Dioxide 27 Anion Gap 11 L BUN Creatinine Estim Creat Clear Calc Estimated GFR POC Glucose Random Glucose Fasting Glucose Osmolality Lactic Acid 1.2 Calcium Phosphorus Magnesium Total Bilirubin Direct Bilirubin AST ALT Alkaline Phosphatase Ammonia Troponin I High Sens B-Natriuretic Peptide Total Protein Albumin Procalcitonin TSH Random Cortisol Urine Color DK YELLOW Urine Appearance HAZY Urine pH 5.5 Ur Specific [place] >= 1.030 H Urine Protein 2+ H Urine Glucose (UA) NEG Urine Ketones NEG Urine Blood NEG Urine Nitrite NEG Ur Leukocyte Esterase NEG Urine RBC 0 Urine WBC 10-14 H Ur Squamous Epith Cells 3+ Urine Bacteria 3+ Urine Mucus 2+ Urine Osmolality Ur Random Sodium Ur Random Potassium Ur Random Chloride Stool Occult Blood Stool Leukocytes, Qual Random Vancomycin Digoxin C. difficile Tox B Gene COVID-19 ([facility]ESSY) COVID-19 Clin Com Influenza Type A (PCR) Influenza Type B (PCR) RSV RNA Qual (PCR) SARS-CoV-2 RNA (RT-PCR) Blood Type Antibody Screen Crossmatch 11/25/21 11/25/21 11/25/21 02:24 03:34 05:46 WBC RBC Hgb Hct MCV MCH MCHC RDW Plt Count MPV Immature Gran % (Auto) Neut % (Auto) Lymph % (Auto) Bradley % (Auto) Eos % (Auto) Baso % (Auto) Lymph # (Auto) Bradley # (Auto) Eos # (Auto) Baso # (Auto) Abs Immat Gran (auto) Absolute Neuts (auto) Absolute Nucleated RBC Nucleated RBC % (auto) Neutrophils % (Manual) Band Neutrophils % Lymphocytes % (Manual) Monocytes % (Manual) Abs Neuts (Manual) Lymphocytes # (Manual) Monocytes # (Manual) Platelet Estimate Plt Morphology Comment RBC Morphology Acanthocytes (Spur) Smear Tech's Comments Smear Path Review PT INR APTT O2 Saturation ABG pH at Pt Temp ABG pH (Temp Correct) ABG pCO2 at Pt Temp ABG pCO2 (Temp Corrct ABG pO2 at Pt Temp ABG pO2 (Temp Correct ABG HCO3 ABG Base Excess (Actual) VBG pH VBG pCO2 VBG pO2 VBG HCO3 VBG O2 Saturation VBG Base Excess Sodium Potassium Chloride Carbon Dioxide Anion Gap BUN Creatinine Estim Creat Clear Calc Estimated GFR POC Glucose 30 L* 29 L* 72 Random Glucose Fasting Glucose Osmolality Lactic Acid Calcium Phosphorus Magnesium Total Bilirubin Direct Bilirubin AST ALT Alkaline Phosphatase Ammonia Troponin I High Sens B-Natriuretic Peptide Total Protein Albumin Procalcitonin TSH Random Cortisol Urine Color Urine Appearance Urine pH Ur Specific [place] Urine Protein Urine Glucose (UA) Urine Ketones Urine Blood Urine Nitrite Ur Leukocyte Esterase Urine RBC Urine WBC Ur Squamous Epith Cells Urine Bacteria Urine Mucus Urine Osmolality Ur Random Sodium Ur Random Potassium Ur Random Chloride Stool Occult Blood Stool Leukocytes, Qual Random Vancomycin Digoxin C. difficile Tox B Gene COVID-19 (JESSY) COVID-19 Clin Com Influenza Type A (PCR) Influenza Type B (PCR) RSV RNA Qual (PCR) SARS-CoV-2 RNA (RT-PCR) Blood Type Antibody Screen Crossmatch 11/25/21 11/25/21 11/25/21 08:24 08:24 08:29 WBC 16.6 H RBC 4.86 Hgb 9.3 L Hct 32.4 L MCV 66.7 L MCH 19.1 L MCHC 28.7 L RDW 20.8 H Plt Count 372 MPV 9.6 Immature Gran % (Auto) 1.1 H Neut % (Auto) 83.4 H Lymph % (Auto) 8.6 L [place] % (Auto) 6.4 Eos % (Auto) 0.3 Baso % (Auto) 0.2 Lymph # (Auto) 1.4 [place] # (Auto) 1.1 Eos # (Auto) 0.1 Baso # (Auto) 0.0 Abs Immat Gran (auto) 0.18 H Absolute Neuts (auto) 13.9 H Absolute Nucleated RBC 0.070 H Nucleated RBC % (auto) 0.4 H Neutrophils % (Manual) Band Neutrophils % Lymphocytes % (Manual) Monocytes % (Manual) Abs Neuts (Manual) Lymphocytes # (Manual) Monocytes # (Manual) Platelet Estimate Plt Morphology Comment RBC Morphology Acanthocytes (Spur) Smear Tech's Comments Smear Path Review PT INR APTT O2 Saturation ABG pH at Pt Temp ABG pH (Temp Correct) ABG pCO2 at Pt Temp ABG pCO2 (Temp Corrct ABG pO2 at Pt Temp ABG pO2 (Temp Correct ABG HCO3 ABG Base Excess (Actual) VBG pH VBG pCO2 VBG pO2 VBG HCO3 VBG O2 Saturation VBG Base Excess Sodium 120 L* Potassium 5.4 H Chloride 87 L Carbon Dioxide 26 Anion Gap 12 BUN 13 Creatinine 0.77 Estim Creat Clear Calc 89.3 Estimated GFR > 60 POC Glucose 107 Random Glucose 96 Fasting Glucose Osmolality Lactic Acid Calcium 9.1 Phosphorus Magnesium Total Bilirubin Direct Bilirubin AST ALT Alkaline Phosphatase Ammonia Troponin I High Sens B-Natriuretic Peptide Total Protein Albumin Procalcitonin TSH Random Cortisol Urine Color Urine Appearance Urine pH Ur Specific [place] Urine Protein Urine Glucose (UA) Urine Ketones Urine Blood Urine Nitrite Ur Leukocyte Esterase Urine RBC Urine WBC Ur Squamous Epith Cells Urine Bacteria Urine Mucus Urine Osmolality Ur Random Sodium Ur Random Potassium Ur Random Chloride Stool Occult Blood Stool Leukocytes, Qual Random Vancomycin Digoxin C. difficile Tox B Gene COVID-19 (JESSY) COVID-19 Clin Com Influenza Type A (PCR) Influenza Type B (PCR) RSV RNA Qual (PCR) SARS-CoV-2 RNA (RT-PCR) Blood Type Antibody Screen Crossmatch 11/25/21 11/25/21 11/25/21 11:28 11:28 16:51 WBC RBC Hgb Hct MCV MCH MCHC RDW Plt Count MPV Immature Gran % (Auto) Neut % (Auto) Lymph % (Auto) [place] % (Auto) Eos % (Auto) Baso % (Auto) Lymph # (Auto) [place] # (Auto) Eos # (Auto) Baso # (Auto) Abs Immat Gran (auto) Absolute Neuts (auto) Absolute Nucleated RBC Nucleated RBC % (auto) Neutrophils % (Manual) Band Neutrophils % Lymphocytes % (Manual) Monocytes % (Manual) Abs Neuts (Manual) Lymphocytes # (Manual) Monocytes # (Manual) Platelet Estimate Plt Morphology Comment RBC Morphology Acanthocytes (Spur) Smear Tech's Comments Smear Path Review PT INR APTT O2 Saturation ABG pH at Pt Temp ABG pH (Temp Correct) ABG pCO2 at Pt Temp ABG pCO2 (Temp Corrct ABG pO2 at Pt Temp ABG pO2 (Temp Correct ABG HCO3 ABG Base Excess (Actual) VBG pH VBG pCO2 VBG pO2 VBG HCO3 VBG O2 Saturation VBG Base Excess Sodium Potassium Chloride Carbon Dioxide Anion Gap BUN Creatinine Estim Creat Clear Calc Estimated GFR POC Glucose Random Glucose Fasting Glucose Osmolality 255 L Lactic Acid Calcium Phosphorus Magnesium Total Bilirubin Direct Bilirubin AST ALT Alkaline Phosphatase Ammonia Troponin I High Sens B-Natriuretic Peptide Total Protein Albumin Procalcitonin TSH Random Cortisol Urine Color Urine Appearance Urine pH Ur Specific [place] Urine Protein Urine Glucose (UA) Urine Ketones Urine Blood Urine Nitrite Ur Leukocyte Esterase Urine RBC Urine WBC Ur Squamous Epith Cells Urine Bacteria Urine Mucus Urine Osmolality 549 Ur Random Sodium < 20.0 Ur Random Potassium 79.7 Ur Random Chloride Stool Occult Blood Stool Leukocytes, Qual Random Vancomycin Digoxin C. difficile Tox B Gene COVID-19 ([facility]ESSY) COVID-19 Clin Com Influenza Type A (PCR) Influenza Type B (PCR) RSV RNA Qual (PCR) SARS-CoV-2 RNA (RT-PCR) Blood Type Antibody Screen Crossmatch 11/25/21 11/25/21 11/25/21 16:51 20:22 21:06 WBC RBC Hgb Hct MCV MCH MCHC RDW Plt Count MPV Immature Gran % (Auto) Neut % (Auto) Lymph % (Auto) [place] % (Auto) Eos % (Auto) Baso % (Auto) Lymph # (Auto) [place] # (Auto) Eos # (Auto) Baso # (Auto) Abs Immat Gran (auto) Absolute Neuts (auto) Absolute Nucleated RBC Nucleated RBC % (auto) Neutrophils % (Manual) Band Neutrophils % Lymphocytes % (Manual) Monocytes % (Manual) Abs Neuts (Manual) Lymphocytes # (Manual) Monocytes # (Manual) Platelet Estimate Plt Morphology Comment RBC Morphology Acanthocytes (Spur) Smear Tech's Comments Smear Path Review PT INR APTT O2 Saturation ABG pH at Pt Temp ABG pH (Temp Correct) ABG pCO2 at Pt Temp ABG pCO2 (Temp Corrct ABG pO2 at Pt Temp ABG pO2 (Temp Correct ABG HCO3 ABG Base Excess (Actual) VBG pH VBG pCO2 VBG pO2 VBG HCO3 VBG O2 Saturation VBG Base Excess Sodium Potassium Chloride Carbon Dioxide Anion Gap BUN Creatinine Estim Creat Clear Calc Estimated GFR POC Glucose 50 L* 75 Random Glucose Fasting Glucose Osmolality Lactic Acid Calcium Phosphorus Magnesium Total Bilirubin Direct Bilirubin AST ALT Alkaline Phosphatase Ammonia Troponin I High Sens B-Natriuretic Peptide Total Protein Albumin Procalcitonin TSH 1.33 Random Cortisol Urine Color Urine Appearance Urine pH Ur Specific [place] Urine Protein Urine Glucose (UA) Urine Ketones Urine Blood Urine Nitrite Ur Leukocyte Esterase Urine RBC Urine WBC Ur Squamous Epith Cells Urine Bacteria Urine Mucus Urine Osmolality Ur Random Sodium Ur Random Potassium Ur Random Chloride Stool Occult Blood Stool Leukocytes, Qual Random Vancomycin Digoxin C. difficile Tox B Gene COVID-19 (JESSY) COVID-19 Clin Com Influenza Type A (PCR) Influenza Type B (PCR) RSV RNA Qual (PCR) SARS-CoV-2 RNA (RT-PCR) Blood Type Antibody Screen Crossmatch 11/25/21 11/26/21 11/26/21 22:36 00:18 06:32 WBC 15.7 H RBC 4.85 Hgb 9.2 L Hct 31.2 L MCV 64.3 L MCH 19.0 L MCHC 29.5 L RDW 20.1 H Plt Count 392 MPV 9.1 L Immature Gran % (Auto) 0.8 H Neut % (Auto) 83.6 H Lymph % (Auto) 7.0 L [place] % (Auto) 8.2 Eos % (Auto) 0.3 Baso % (Auto) 0.1 Lymph # (Auto) 1.1 L [place] # (Auto) 1.3 H Eos # (Auto) 0.0 Baso # (Auto) 0.0 Abs Immat Gran (auto) 0.13 H Absolute Neuts (auto) 13.1 H Absolute Nucleated RBC 0.100 H Nucleated RBC % (auto) 0.6 H Neutrophils % (Manual) Band Neutrophils % Lymphocytes % (Manual) Monocytes % (Manual) Abs Neuts (Manual) Lymphocytes # (Manual) Monocytes # (Manual) Platelet Estimate Plt Morphology Comment RBC Morphology Acanthocytes (Spur) Smear Tech's Comments Smear Path Review SEE NOTE PT INR APTT O2 Saturation ABG pH at Pt Temp ABG pH (Temp Correct) ABG pCO2 at Pt Temp ABG pCO2 (Temp Corrct ABG pO2 at Pt Temp ABG pO2 (Temp Correct ABG HCO3 ABG Base Excess (Actual) VBG pH VBG pCO2 VBG pO2 VBG HCO3 VBG O2 Saturation VBG Base Excess Sodium Potassium Chloride Carbon Dioxide Anion Gap BUN Creatinine Estim Creat Clear Calc Estimated GFR POC Glucose 99 116 H Random Glucose Fasting Glucose Osmolality Lactic Acid Calcium Phosphorus Magnesium Total Bilirubin Direct Bilirubin AST ALT Alkaline Phosphatase Ammonia Troponin I High Sens B-Natriuretic Peptide Total Protein Albumin Procalcitonin TSH Random Cortisol Urine Color Urine Appearance Urine pH Ur Specific [place] Urine Protein Urine Glucose (UA) Urine Ketones Urine Blood Urine Nitrite Ur Leukocyte Esterase Urine RBC Urine WBC Ur Squamous Epith Cells Urine Bacteria Urine Mucus Urine Osmolality Ur Random Sodium Ur Random Potassium Ur Random Chloride Stool Occult Blood Stool Leukocytes, Qual Random Vancomycin Digoxin C. difficile Tox B Gene COVID-19 (JESSY) COVID-19 Clin Com Influenza Type A (PCR) Influenza Type B (PCR) RSV RNA Qual (PCR) SARS-CoV-2 RNA (RT-PCR) Blood Type Antibody Screen Crossmatch 11/26/21 11/26/21 11/27/21 06:32 06:32 08:14 WBC 10.3 RBC 5.13 Hgb 9.7 L Hct 32.8 L MCV 63.9 L MCH 18.9 L MCHC 29.6 L RDW 20.3 H Plt Count 401 H MPV 9.1 L Immature Gran % (Auto) 1.5 H Neut % (Auto) 94.9 H Lymph % (Auto) 2.7 L [place] % (Auto) 0.8 L Eos % (Auto) 0.0 Baso % (Auto) 0.1 Lymph # (Auto) 0.3 L [place] # (Auto) 0.1 Eos # (Auto) 0.0 Baso # (Auto) 0.0 Abs Immat Gran (auto) 0.15 H Absolute Neuts (auto) 9.8 H Absolute Nucleated RBC 0.070 H Nucleated RBC % (auto) 0.7 H Neutrophils % (Manual) Band Neutrophils % Lymphocytes % (Manual) Monocytes % (Manual) Abs Neuts (Manual) Lymphocytes # (Manual) Monocytes # (Manual) Platelet Estimate Plt Morphology Comment RBC Morphology Acanthocytes (Spur) Smear Tech's Comments VERIFIED Smear Path Review PT INR APTT O2 Saturation ABG pH at Pt Temp ABG pH (Temp Correct) ABG pCO2 at Pt Temp ABG pCO2 (Temp Corrct ABG pO2 at Pt Temp ABG pO2 (Temp Correct ABG HCO3 ABG Base Excess (Actual) VBG pH VBG pCO2 VBG pO2 VBG HCO3 VBG O2 Saturation VBG Base Excess Sodium 121 L Potassium 5.0 Chloride 87 L Carbon Dioxide 27 Anion Gap 12 BUN 15 Creatinine 0.78 Estim Creat Clear Calc 88.1 Estimated GFR > 60 POC Glucose Random Glucose Fasting Glucose 64 Osmolality Lactic Acid Calcium 8.7 Phosphorus Magnesium Total Bilirubin 0.4 Direct Bilirubin AST 28 ALT 25 Alkaline Phosphatase 114 Ammonia Troponin I High Sens B-Natriuretic Peptide Total Protein 6.7 Albumin 3.7 Procalcitonin TSH Random Cortisol 19.8 Urine Color Urine Appearance Urine pH Ur Specific [place] Urine Protein Urine Glucose (UA) Urine Ketones Urine Blood Urine Nitrite Ur Leukocyte Esterase Urine RBC Urine WBC Ur Squamous Epith Cells Urine Bacteria Urine Mucus Urine Osmolality Ur Random Sodium Ur Random Potassium Ur Random Chloride Stool Occult Blood Stool Leukocytes, Qual Random Vancomycin Digoxin C. difficile Tox B Gene COVID-19 (JESSY) COVID-19 Clin Com Influenza Type A (PCR) Influenza Type B (PCR) RSV RNA Qual (PCR) SARS-CoV-2 RNA (RT-PCR) Blood Type Antibody Screen Crossmatch 11/27/21 11/27/21 11/27/21 08:14 21:21 21:31 WBC 9.9 RBC 4.52 Hgb 8.6 L Hct 29.0 L MCV 64.2 L MCH 19.0 L MCHC 29.7 L RDW 19.9 H Plt Count 341 MPV 9.3 L Immature Gran % (Auto) 0.7 H Neut % (Auto) 94.3 H Lymph % (Auto) 2.4 L [place] % (Auto) 2.6 Eos % (Auto) 0.0 Baso % (Auto) 0.0 Lymph # (Auto) 0.2 L [place] # (Auto) 0.3 Eos # (Auto) 0.0 Baso # (Auto) 0.0 Abs Immat Gran (auto) 0.07 H Absolute Neuts (auto) 9.3 H Absolute Nucleated RBC 0.100 H Nucleated RBC % (auto) 1.0 H Neutrophils % (Manual) Band Neutrophils % Lymphocytes % (Manual) Monocytes % (Manual) Abs Neuts (Manual) Lymphocytes # (Manual) Monocytes # (Manual) Platelet Estimate Plt Morphology Comment RBC Morphology Acanthocytes (Spur) Smear Tech's Comments VERIFIED Smear Path Review PT INR APTT O2 Saturation ABG pH at Pt Temp ABG pH (Temp Correct) ABG pCO2 at Pt Temp ABG pCO2 (Temp Corrct ABG pO2 at Pt Temp ABG pO2 (Temp Correct ABG HCO3 ABG Base Excess (Actual) VBG pH VBG pCO2 VBG pO2 VBG HCO3 VBG O2 Saturation VBG Base Excess Sodium 124 L Potassium 5.7 H Chloride 88 L Carbon Dioxide 25 Anion Gap 17 BUN 26 H D Creatinine 0.83 Estim Creat Clear Calc 92.7 Estimated GFR > 60 POC Glucose 215 H Random Glucose Fasting Glucose 193 H Osmolality Lactic Acid Calcium 9.0 Phosphorus Magnesium Total Bilirubin 0.5 Direct Bilirubin AST 31 ALT 30 Alkaline Phosphatase 121 H Ammonia Troponin I High Sens B-Natriuretic Peptide Total Protein 6.8 Albumin 3.8 Procalcitonin TSH Random Cortisol Urine Color Urine Appearance Urine pH Ur Specific [place] Urine Protein Urine Glucose (UA) Urine Ketones Urine Blood Urine Nitrite Ur Leukocyte Esterase Urine RBC Urine WBC Ur Squamous Epith Cells Urine Bacteria Urine Mucus Urine Osmolality Ur Random Sodium Ur Random Potassium Ur Random Chloride Stool Occult Blood Stool Leukocytes, Qual Random Vancomycin Digoxin C. difficile Tox B Gene COVID-19 (JESSY) COVID-19 Clin Com Influenza Type A (PCR) Influenza Type B (PCR) RSV RNA Qual (PCR) SARS-CoV-2 RNA (RT-PCR) Blood Type Antibody Screen Crossmatch 11/27/21 11/27/21 11/28/21 21:31 21:31 00:19 WBC RBC Hgb Hct MCV MCH MCHC RDW Plt Count MPV Immature Gran % (Auto) Neut % (Auto) Lymph % (Auto) [place] % (Auto) Eos % (Auto) Baso % (Auto) Lymph # (Auto) [place] # (Auto) Eos # (Auto) Baso # (Auto) Abs Immat Gran (auto) Absolute Neuts (auto) Absolute Nucleated RBC Nucleated RBC % (auto) Neutrophils % (Manual) Band Neutrophils % Lymphocytes % (Manual) Monocytes % (Manual) Abs Neuts (Manual) Lymphocytes # (Manual) Monocytes # (Manual) Platelet Estimate Plt Morphology Comment RBC Morphology Acanthocytes (Spur) Smear Tech's Comments Smear Path Review PT 26.2 H INR 2.3 H APTT O2 Saturation ABG pH at Pt Temp ABG pH (Temp Correct) ABG pCO2 at Pt Temp ABG pCO2 (Temp Corrct ABG pO2 at Pt Temp ABG pO2 (Temp Correct ABG HCO3 ABG Base Excess (Actual) VBG pH VBG pCO2 VBG pO2 VBG HCO3 VBG O2 Saturation VBG Base Excess Sodium 123 L Potassium 5.0 Chloride 86 L Carbon Dioxide 26 Anion Gap 16 BUN 37 H Creatinine 1.00 Estim Creat Clear Calc 77.0 Estimated GFR 55 POC Glucose 225 H Random Glucose 269 H Fasting Glucose Osmolality Lactic Acid Calcium 8.7 Phosphorus 3.6 Magnesium 2.0 Total Bilirubin 0.5 Direct Bilirubin 0.3 AST 27 ALT 26 Alkaline Phosphatase 99 Ammonia Troponin I High Sens B-Natriuretic Peptide Total Protein 5.9 L Albumin 3.3 L Procalcitonin TSH Random Cortisol Urine Color Urine Appearance Urine pH Ur Specific [place] Urine Protein Urine Glucose (UA) Urine Ketones Urine Blood Urine Nitrite Ur Leukocyte Esterase Urine RBC Urine WBC Ur Squamous Epith Cells Urine Bacteria Urine Mucus Urine Osmolality Ur Random Sodium Ur Random Potassium Ur Random Chloride Stool Occult Blood Stool Leukocytes, Qual Random Vancomycin Digoxin C. difficile Tox B Gene COVID-19 (JESSY) COVID-19 Clin Com Influenza Type A (PCR) Influenza Type B (PCR) RSV RNA Qual (PCR) SARS-CoV-2 RNA (RT-PCR) Blood Type Antibody Screen Crossmatch 11/28/21 11/28/21 11/28/21 01:02 03:36 03:37 WBC RBC Hgb Hct MCV MCH MCHC RDW Plt Count MPV Immature Gran % (Auto) Neut % (Auto) Lymph % (Auto) [place] % (Auto) Eos % (Auto) Baso % (Auto) Lymph # (Auto) [place] # (Auto) Eos # (Auto) Baso # (Auto) Abs Immat Gran (auto) Absolute Neuts (auto) Absolute Nucleated RBC Nucleated RBC % (auto) Neutrophils % (Manual) Band Neutrophils % Lymphocytes % (Manual) Monocytes % (Manual) Abs Neuts (Manual) Lymphocytes # (Manual) Monocytes # (Manual) Platelet Estimate Plt Morphology Comment RBC Morphology Acanthocytes (Spur) Smear Tech's Comments Smear Path Review PT INR APTT O2 Saturation ABG pH at Pt Temp ABG pH (Temp Correct) ABG pCO2 at Pt Temp ABG pCO2 (Temp Corrct ABG pO2 at Pt Temp ABG pO2 (Temp Correct ABG HCO3 ABG Base Excess (Actual) VBG pH 7.46 H VBG pCO2 35 VBG pO2 40 VBG HCO3 25 VBG O2 Saturation 58.0 VBG Base Excess 1.6 Sodium Potassium Chloride Carbon Dioxide Anion Gap BUN Creatinine Estim Creat Clear Calc Estimated GFR POC Glucose Random Glucose Fasting Glucose Osmolality Lactic Acid Calcium Phosphorus Magnesium Total Bilirubin Direct Bilirubin AST ALT Alkaline Phosphatase Ammonia Troponin I High Sens B-Natriuretic Peptide Total Protein Albumin Procalcitonin TSH Random Cortisol Urine Color Urine Appearance Urine pH Ur Specific [place] Urine Protein Urine Glucose (UA) Urine Ketones Urine Blood Urine Nitrite Ur Leukocyte Esterase Urine RBC Urine WBC Ur Squamous Epith Cells Urine Bacteria Urine Mucus Urine Osmolality 539 Ur Random Sodium < 20.0 Ur Random Potassium Ur Random Chloride Stool Occult Blood Stool Leukocytes, Qual Random Vancomycin Digoxin C. difficile Tox B Gene COVID-19 (JESSY) COVID-19 Clin Com Influenza Type A (PCR) Influenza Type B (PCR) RSV RNA Qual (PCR) SARS-CoV-2 RNA (RT-PCR) Blood Type Antibody Screen Crossmatch 11/28/21 11/28/21 11/28/21 05:21 05:30 05:30 WBC 10.8 RBC 4.50 Hgb 8.5 L Hct 28.2 L MCV 62.7 L MCH 18.9 L MCHC 30.1 L RDW 19.6 H Plt Count 308 MPV 9.0 L Immature Gran % (Auto) 1.1 H Neut % (Auto) 90.0 H Lymph % (Auto) 4.0 L [place] % (Auto) 4.8 Eos % (Auto) 0.0 Baso % (Auto) 0.1 Lymph # (Auto) 0.4 L [place] # (Auto) 0.5 Eos # (Auto) 0.0 Baso # (Auto) 0.0 Abs Immat Gran (auto) 0.12 H Absolute Neuts (auto) 9.7 H Absolute Nucleated RBC 0.130 H Nucleated RBC % (auto) 1.2 H Neutrophils % (Manual) Band Neutrophils % Lymphocytes % (Manual) Monocytes % (Manual) Abs Neuts (Manual) Lymphocytes # (Manual) Monocytes # (Manual) Platelet Estimate Plt Morphology Comment RBC Morphology Acanthocytes (Spur) Smear Tech's Comments Smear Path Review PT INR APTT O2 Saturation ABG pH at Pt Temp ABG pH (Temp Correct) ABG pCO2 at Pt Temp ABG pCO2 (Temp Corrct ABG pO2 at Pt Temp ABG pO2 (Temp Correct ABG HCO3 ABG Base Excess (Actual) VBG pH 7.52 H VBG pCO2 29 VBG pO2 45 VBG HCO3 24 VBG O2 Saturation 71.0 VBG Base Excess 2.4 Sodium 123 L Potassium 5.0 Chloride 88 L Carbon Dioxide 24 Anion Gap 16 BUN 33 H Creatinine 0.82 Estim Creat Clear Calc 93.9 Estimated GFR > 60 POC Glucose Random Glucose 238 H Fasting Glucose Osmolality Lactic Acid Calcium 8.7 Phosphorus 2.6 L Magnesium 1.9 Total Bilirubin Direct Bilirubin AST ALT Alkaline Phosphatase Ammonia Troponin I High Sens B-Natriuretic Peptide Total Protein Albumin Procalcitonin TSH Random Cortisol Urine Color Urine Appearance Urine pH Ur Specific [place] Urine Protein Urine Glucose (UA) Urine Ketones Urine Blood Urine Nitrite Ur Leukocyte Esterase Urine RBC Urine WBC Ur Squamous Epith Cells Urine Bacteria Urine Mucus Urine Osmolality Ur Random Sodium Ur Random Potassium Ur Random Chloride Stool Occult Blood Stool Leukocytes, Qual Random Vancomycin Digoxin C. difficile Tox B Gene COVID-19 (JESSY) COVID-19 Clin Com Influenza Type A (PCR) Influenza Type B (PCR) RSV RNA Qual (PCR) SARS-CoV-2 RNA (RT-PCR) Blood Type Antibody Screen Crossmatch 11/28/21 11/28/21 11/28/21 05:30 11:51 13:27 WBC RBC Hgb Hct MCV MCH MCHC RDW Plt Count MPV Immature Gran % (Auto) Neut % (Auto) Lymph % (Auto) [place] % (Auto) Eos % (Auto) Baso % (Auto) Lymph # (Auto) [place] # (Auto) Eos # (Auto) Baso # (Auto) Abs Immat Gran (auto) Absolute Neuts (auto) Absolute Nucleated RBC Nucleated RBC % (auto) Neutrophils % (Manual) Band Neutrophils % Lymphocytes % (Manual) Monocytes % (Manual) Abs Neuts (Manual) Lymphocytes # (Manual) Monocytes # (Manual) Platelet Estimate Plt Morphology Comment RBC Morphology Acanthocytes (Spur) Smear Tech's Comments Smear Path Review PT INR APTT O2 Saturation ABG pH at Pt Temp ABG pH (Temp Correct) ABG pCO2 at Pt Temp ABG pCO2 (Temp Corrct ABG pO2 at Pt Temp ABG pO2 (Temp Correct ABG HCO3 ABG Base Excess (Actual) VBG pH VBG pCO2 VBG pO2 VBG HCO3 VBG O2 Saturation VBG Base Excess Sodium Potassium Chloride Carbon Dioxide Anion Gap BUN Creatinine Estim Creat Clear Calc Estimated GFR POC Glucose 243 H Random Glucose Fasting Glucose Osmolality Lactic Acid Calcium Phosphorus Magnesium Total Bilirubin Direct Bilirubin AST ALT Alkaline Phosphatase Ammonia Troponin I High Sens B-Natriuretic Peptide 170 H Total Protein Albumin Procalcitonin TSH Random Cortisol Urine Color Urine Appearance Urine pH Ur Specific [place] Urine Protein Urine Glucose (UA) Urine Ketones Urine Blood Urine Nitrite Ur Leukocyte Esterase Urine RBC Urine WBC Ur Squamous Epith Cells Urine Bacteria Urine Mucus Urine Osmolality Ur Random Sodium Ur Random Potassium Ur Random Chloride < 20.0 Stool Occult Blood Stool Leukocytes, Qual Random Vancomycin Digoxin C. difficile Tox B Gene COVID-19 (JESSY) COVID-19 Clin Com Influenza Type A (PCR) Influenza Type B (PCR) RSV RNA Qual (PCR) SARS-CoV-2 RNA (RT-PCR) Blood Type Antibody Screen Crossmatch 11/28/21 11/28/21 11/29/21 17:30 18:09 05:02 WBC 11.8 H RBC 4.53 Hgb 8.6 L Hct 27.9 L MCV 61.6 L MCH 19.0 L MCHC 30.8 L RDW 19.9 H Plt Count 313 MPV 9.6 Immature Gran % (Auto) 0.8 H Neut % (Auto) 92.8 H Lymph % (Auto) 1.3 L [place] % (Auto) 5.0 Eos % (Auto) 0.0 Baso % (Auto) 0.1 Lymph # (Auto) 0.2 L [place] # (Auto) 0.6 Eos # (Auto) 0.0 Baso # (Auto) 0.0 Abs Immat Gran (auto) 0.10 H Absolute Neuts (auto) 11.0 H Absolute Nucleated RBC 0.090 H Nucleated RBC % (auto) 0.8 H Neutrophils % (Manual) Band Neutrophils % Lymphocytes % (Manual) Monocytes % (Manual) Abs Neuts (Manual) Lymphocytes # (Manual) Monocytes # (Manual) Platelet Estimate Plt Morphology Comment RBC Morphology Acanthocytes (Spur) Smear Tech's Comments VERIFIED Smear Path Review PT INR APTT O2 Saturation ABG pH at Pt Temp ABG pH (Temp Correct) ABG pCO2 at Pt Temp ABG pCO2 (Temp Corrct ABG pO2 at Pt Temp ABG pO2 (Temp Correct ABG HCO3 ABG Base Excess (Actual) VBG pH VBG pCO2 VBG pO2 VBG HCO3 VBG O2 Saturation VBG Base Excess Sodium 126 L Potassium 4.4 Chloride 88 L Carbon Dioxide 29 Anion Gap 13 BUN 36 H Creatinine 0.85 Estim Creat Clear Calc 90.6 Estimated GFR > 60 POC Glucose 242 H Random Glucose 282 H Fasting Glucose Osmolality Lactic Acid Calcium 9.0 Phosphorus Magnesium Total Bilirubin Direct Bilirubin AST ALT Alkaline Phosphatase Ammonia Troponin I High Sens B-Natriuretic Peptide Total Protein Albumin Procalcitonin TSH Random Cortisol Urine Color Urine Appearance Urine pH Ur Specific [place] Urine Protein Urine Glucose (UA) Urine Ketones Urine Blood Urine Nitrite Ur Leukocyte Esterase Urine RBC Urine WBC Ur Squamous Epith Cells Urine Bacteria Urine Mucus Urine Osmolality Ur Random Sodium Ur Random Potassium Ur Random Chloride Stool Occult Blood Stool Leukocytes, Qual Random Vancomycin Digoxin C. difficile Tox B Gene COVID-19 (JESSY) COVID-19 Clin Com Influenza Type A (PCR) Influenza Type B (PCR) RSV RNA Qual (PCR) SARS-CoV-2 RNA (RT-PCR) Blood Type Antibody Screen Crossmatch 11/29/21 11/29/21 11/29/21 05:02 05:02 05:03 WBC RBC Hgb Hct MCV MCH MCHC RDW Plt Count MPV Immature Gran % (Auto) Neut % (Auto) Lymph % (Auto) [place] % (Auto) Eos % (Auto) Baso % (Auto) Lymph # (Auto) [place] # (Auto) Eos # (Auto) Baso # (Auto) Abs Immat Gran (auto) Absolute Neuts (auto) Absolute Nucleated RBC Nucleated RBC % (auto) Neutrophils % (Manual) Band Neutrophils % Lymphocytes % (Manual) Monocytes % (Manual) Abs Neuts (Manual) Lymphocytes # (Manual) Monocytes # (Manual) Platelet Estimate Plt Morphology Comment RBC Morphology Acanthocytes (Spur) Smear Tech's Comments Smear Path Review PT INR APTT O2 Saturation ABG pH at Pt Temp ABG pH (Temp Correct) ABG pCO2 at Pt Temp ABG pCO2 (Temp Corrct ABG pO2 at Pt Temp ABG pO2 (Temp Correct ABG HCO3 ABG Base Excess (Actual) VBG pH 7.55 H VBG pCO2 29 VBG pO2 47 VBG HCO3 26 VBG O2 Saturation 77.0 VBG Base Excess 4.5 Sodium 128 L Potassium 4.7 Chloride 92 L Carbon Dioxide 28 Anion Gap 13 BUN 33 H Creatinine 0.87 Estim Creat Clear Calc 88.5 Estimated GFR > 60 POC Glucose Random Glucose 271 H Fasting Glucose Osmolality Lactic Acid Calcium 8.9 Phosphorus 2.7 Magnesium 2.1 Total Bilirubin Direct Bilirubin AST ALT Alkaline Phosphatase Ammonia Troponin I High Sens B-Natriuretic Peptide 161 H Total Protein Albumin Procalcitonin TSH Random Cortisol Urine Color Urine Appearance Urine pH Ur Specific [place] Urine Protein Urine Glucose (UA) Urine Ketones Urine Blood Urine Nitrite Ur Leukocyte Esterase Urine RBC Urine WBC Ur Squamous Epith Cells Urine Bacteria Urine Mucus Urine Osmolality Ur Random Sodium Ur Random Potassium Ur Random Chloride Stool Occult Blood Stool Leukocytes, Qual Random Vancomycin Digoxin C. difficile Tox B Gene COVID-19 (JESSY) COVID-19 Clin Com Influenza Type A (PCR) Influenza Type B (PCR) RSV RNA Qual (PCR) SARS-CoV-2 RNA (RT-PCR) Blood Type Antibody Screen Crossmatch 11/30/21 11/30/21 11/30/21 05:46 05:46 05:57 WBC 13.7 H RBC 4.91 Hgb 9.2 L Hct 31.4 L MCV 64.0 L MCH 18.7 L MCHC 29.3 L RDW 20.5 H Plt Count 295 MPV 9.7 Immature Gran % (Auto) 0.9 H Neut % (Auto) 90.3 H Lymph % (Auto) 2.0 L [place] % (Auto) 6.7 Eos % (Auto) 0.0 Baso % (Auto) 0.1 Lymph # (Auto) 0.3 L [place] # (Auto) 0.9 Eos # (Auto) 0.0 Baso # (Auto) 0.0 Abs Immat Gran (auto) 0.12 H Absolute Neuts (auto) 12.3 H Absolute Nucleated RBC 0.040 H Nucleated RBC % (auto) 0.3 H Neutrophils % (Manual) Band Neutrophils % Lymphocytes % (Manual) Monocytes % (Manual) Abs Neuts (Manual) Lymphocytes # (Manual) Monocytes # (Manual) Platelet Estimate Plt Morphology Comment RBC Morphology Acanthocytes (Spur) Smear Tech's Comments VERIFIED Smear Path Review PT INR APTT O2 Saturation ABG pH at Pt Temp ABG pH (Temp Correct) ABG pCO2 at Pt Temp ABG pCO2 (Temp Corrct ABG pO2 at Pt Temp ABG pO2 (Temp Correct ABG HCO3 ABG Base Excess (Actual) VBG pH 7.40 VBG pCO2 45 VBG pO2 49 VBG HCO3 28 H VBG O2 Saturation 73.0 VBG Base Excess 3.7 Sodium 130 L Potassium 5.6 H Chloride 93 L Carbon Dioxide 30 H Anion Gap 13 BUN 43 H Creatinine 1.18 Estim Creat Clear Calc 65.2 Estimated GFR 46 POC Glucose Random Glucose 358 H* Fasting Glucose Osmolality Lactic Acid Calcium 8.7 Phosphorus 3.8 Magnesium 2.3 Total Bilirubin Direct Bilirubin AST ALT Alkaline Phosphatase Ammonia Troponin I High Sens B-Natriuretic Peptide Total Protein Albumin 3.4 L Procalcitonin TSH Random Cortisol Urine Color Urine Appearance Urine pH Ur Specific [place] Urine Protein Urine Glucose (UA) Urine Ketones Urine Blood Urine Nitrite Ur Leukocyte Esterase Urine RBC Urine WBC Ur Squamous Epith Cells Urine Bacteria Urine Mucus Urine Osmolality Ur Random Sodium Ur Random Potassium Ur Random Chloride Stool Occult Blood Stool Leukocytes, Qual Random Vancomycin Digoxin C. difficile Tox B Gene COVID-19 (JESSY) COVID-19 Clin Com Influenza Type A (PCR) Influenza Type B (PCR) RSV RNA Qual (PCR) SARS-CoV-2 RNA (RT-PCR) Blood Type Antibody Screen Crossmatch 11/30/21 11/30/21 11/30/21 12:15 13:50 16:43 WBC RBC Hgb Hct MCV MCH MCHC RDW Plt Count MPV Immature Gran % (Auto) Neut % (Auto) Lymph % (Auto) [place] % (Auto) Eos % (Auto) Baso % (Auto) Lymph # (Auto) [place] # (Auto) Eos # (Auto) Baso # (Auto) Abs Immat Gran (auto) Absolute Neuts (auto) Absolute Nucleated RBC Nucleated RBC % (auto) Neutrophils % (Manual) Band Neutrophils % Lymphocytes % (Manual) Monocytes % (Manual) Abs Neuts (Manual) Lymphocytes # (Manual) Monocytes # (Manual) Platelet Estimate Plt Morphology Comment RBC Morphology Acanthocytes (Spur) Smear Tech's Comments Smear Path Review PT INR APTT O2 Saturation ABG pH at Pt Temp ABG pH (Temp Correct) ABG pCO2 at Pt Temp ABG pCO2 (Temp Corrct ABG pO2 at Pt Temp ABG pO2 (Temp Correct ABG HCO3 ABG Base Excess (Actual) VBG pH VBG pCO2 VBG pO2 VBG HCO3 VBG O2 Saturation VBG Base Excess Sodium 132 L Potassium 5.1 Chloride 93 L Carbon Dioxide 30 H Anion Gap 14 BUN 41 H Creatinine 1.16 Estim Creat Clear Calc 66.4 Estimated GFR 46 POC Glucose 260 H Random Glucose 351 H* Fasting Glucose Osmolality Lactic Acid Calcium 8.7 Phosphorus Magnesium Total Bilirubin Direct Bilirubin AST ALT Alkaline Phosphatase Ammonia 29 Troponin I High Sens B-Natriuretic Peptide Total Protein Albumin Procalcitonin TSH Random Cortisol Urine Color Urine Appearance Urine pH Ur Specific [place] Urine Protein Urine Glucose (UA) Urine Ketones Urine Blood Urine Nitrite Ur Leukocyte Esterase Urine RBC Urine WBC Ur Squamous Epith Cells Urine Bacteria Urine Mucus Urine Osmolality Ur Random Sodium Ur Random Potassium Ur Random Chloride Stool Occult Blood Stool Leukocytes, Qual Random Vancomycin Digoxin C. difficile Tox B Gene COVID-19 (JESSY) COVID-19 Clin Com Influenza Type A (PCR) Influenza Type B (PCR) RSV RNA Qual (PCR) SARS-CoV-2 RNA (RT-PCR) Blood Type Antibody Screen Crossmatch 11/30/21 12/01/21 12/01/21 19:50 05:15 05:15 WBC 20.1 H RBC 5.09 Hgb 9.5 L Hct 32.9 L MCV 64.6 L MCH 18.7 L MCHC 28.9 L RDW 20.2 H Plt Count 325 MPV 9.1 L Immature Gran % (Auto) 0.8 H Neut % (Auto) 83.7 H Lymph % (Auto) 5.1 L [place] % (Auto) 10.2 Eos % (Auto) 0.1 Baso % (Auto) 0.1 Lymph # (Auto) 1.0 L [place] # (Auto) 2.1 H Eos # (Auto) 0.0 Baso # (Auto) 0.0 Abs Immat Gran (auto) 0.16 H Absolute Neuts (auto) 16.8 H Absolute Nucleated RBC 0.090 H Nucleated RBC % (auto) 0.4 H Neutrophils % (Manual) Band Neutrophils % Lymphocytes % (Manual) Monocytes % (Manual) Abs Neuts (Manual) Lymphocytes # (Manual) Monocytes # (Manual) Platelet Estimate Plt Morphology Comment RBC Morphology Acanthocytes (Spur) Smear Tech's Comments VERIFIED Smear Path Review PT INR APTT O2 Saturation ABG pH at Pt Temp ABG pH (Temp Correct) ABG pCO2 at Pt Temp ABG pCO2 (Temp Corrct ABG pO2 at Pt Temp ABG pO2 (Temp Correct ABG HCO3 ABG Base Excess (Actual) VBG pH VBG pCO2 VBG pO2 VBG HCO3 VBG O2 Saturation VBG Base Excess Sodium 138 Potassium 4.6 Chloride 98 Carbon Dioxide 31 H Anion Gap 14 BUN 32 H Creatinine 0.81 Estim Creat Clear Calc 95.0 Estimated GFR > 60 POC Glucose 175 H Random Glucose 110 Fasting Glucose Osmolality Lactic Acid Calcium 8.9 Phosphorus 3.0 Magnesium 2.2 Total Bilirubin 1.0 Direct Bilirubin AST 32 H ALT 31 Alkaline Phosphatase 81 Ammonia Troponin I High Sens B-Natriuretic Peptide Total Protein 6.4 L Albumin 3.7 Procalcitonin TSH Random Cortisol Urine Color Urine Appearance Urine pH Ur Specific [place] Urine Protein Urine Glucose (UA) Urine Ketones Urine Blood Urine Nitrite Ur Leukocyte Esterase Urine RBC Urine WBC Ur Squamous Epith Cells Urine Bacteria Urine Mucus Urine Osmolality Ur Random Sodium Ur Random Potassium Ur Random Chloride Stool Occult Blood Stool Leukocytes, Qual Random Vancomycin Digoxin C. difficile Tox B Gene COVID-19 (JESSY) COVID-19 Clin Com Influenza Type A (PCR) Influenza Type B (PCR) RSV RNA Qual (PCR) SARS-CoV-2 RNA (RT-PCR) Blood Type Antibody Screen Crossmatch 12/01/21 12/01/21 12/01/21 05:29 07:29 11:39 WBC RBC Hgb Hct MCV MCH MCHC RDW Plt Count MPV Immature Gran % (Auto) Neut % (Auto) Lymph % (Auto) [place] % (Auto) Eos % (Auto) Baso % (Auto) Lymph # (Auto) [place] # (Auto) Eos # (Auto) Baso # (Auto) Abs Immat Gran (auto) Absolute Neuts (auto) Absolute Nucleated RBC Nucleated RBC % (auto) Neutrophils % (Manual) Band Neutrophils % Lymphocytes % (Manual) Monocytes % (Manual) Abs Neuts (Manual) Lymphocytes # (Manual) Monocytes # (Manual) Platelet Estimate Plt Morphology Comment RBC Morphology Acanthocytes (Spur) Smear Tech's Comments Smear Path Review PT INR APTT O2 Saturation ABG pH at Pt Temp ABG pH (Temp Correct) ABG pCO2 at Pt Temp ABG pCO2 (Temp Corrct ABG pO2 at Pt Temp ABG pO2 (Temp Correct ABG HCO3 ABG Base Excess (Actual) VBG pH 7.41 VBG pCO2 51 VBG pO2 55 VBG HCO3 33 H VBG O2 Saturation 81.0 VBG Base Excess 7.9 Sodium Potassium Chloride Carbon Dioxide Anion Gap BUN Creatinine Estim Creat Clear Calc Estimated GFR POC Glucose 119 H 150 H Random Glucose Fasting Glucose Osmolality Lactic Acid Calcium Phosphorus Magnesium Total Bilirubin Direct Bilirubin AST ALT Alkaline Phosphatase Ammonia Troponin I High Sens B-Natriuretic Peptide Total Protein Albumin Procalcitonin TSH Random Cortisol Urine Color Urine Appearance Urine pH Ur Specific [place] Urine Protein Urine Glucose (UA) Urine Ketones Urine Blood Urine Nitrite Ur Leukocyte Esterase Urine RBC Urine WBC Ur Squamous Epith Cells Urine Bacteria Urine Mucus Urine Osmolality Ur Random Sodium Ur Random Potassium Ur Random Chloride Stool Occult Blood Stool Leukocytes, Qual Random Vancomycin Digoxin C. difficile Tox B Gene COVID-19 (JESSY) COVID-19 Clin Com Influenza Type A (PCR) Influenza Type B (PCR) RSV RNA Qual (PCR) SARS-CoV-2 RNA (RT-PCR) Blood Type Antibody Screen Crossmatch 12/01/21 12/01/21 12/02/21 16:33 20:59 05:18 WBC 22.6 H RBC 5.00 Hgb 9.5 L Hct 33.2 L MCV 66.4 L MCH 19.0 L MCHC 28.6 L RDW 21.2 H Plt Count 326 MPV 9.2 L Immature Gran % (Auto) 1.0 H Neut % (Auto) 86.5 H Lymph % (Auto) 2.2 L [place] % (Auto) 10.2 Eos % (Auto) 0.0 Baso % (Auto) 0.1 Lymph # (Auto) 0.5 L [place] # (Auto) 2.3 H Eos # (Auto) 0.0 Baso # (Auto) 0.0 Abs Immat Gran (auto) 0.23 H Absolute Neuts (auto) 19.5 H Absolute Nucleated RBC 0.090 H Nucleated RBC % (auto) 0.4 H Neutrophils % (Manual) Band Neutrophils % Lymphocytes % (Manual) Monocytes % (Manual) Abs Neuts (Manual) Lymphocytes # (Manual) Monocytes # (Manual) Platelet Estimate Plt Morphology Comment RBC Morphology Acanthocytes (Spur) Smear Tech's Comments VERIFIED Smear Path Review PT INR APTT O2 Saturation ABG pH at Pt Temp ABG pH (Temp Correct) ABG pCO2 at Pt Temp ABG pCO2 (Temp Corrct ABG pO2 at Pt Temp ABG pO2 (Temp Correct ABG HCO3 ABG Base Excess (Actual) VBG pH VBG pCO2 VBG pO2 VBG HCO3 VBG O2 Saturation VBG Base Excess Sodium Potassium Chloride Carbon Dioxide Anion Gap BUN Creatinine Estim Creat Clear Calc Estimated GFR POC Glucose 149 H 161 H Random Glucose Fasting Glucose Osmolality Lactic Acid Calcium Phosphorus Magnesium Total Bilirubin Direct Bilirubin AST ALT Alkaline Phosphatase Ammonia Troponin I High Sens B-Natriuretic Peptide Total Protein Albumin Procalcitonin TSH Random Cortisol Urine Color Urine Appearance Urine pH Ur Specific [place] Urine Protein Urine Glucose (UA) Urine Ketones Urine Blood Urine Nitrite Ur Leukocyte Esterase Urine RBC Urine WBC Ur Squamous Epith Cells Urine Bacteria Urine Mucus Urine Osmolality Ur Random Sodium Ur Random Potassium Ur Random Chloride Stool Occult Blood Stool Leukocytes, Qual Random Vancomycin Digoxin C. difficile Tox B Gene COVID-19 (JESSY) COVID-19 Clin Com Influenza Type A (PCR) Influenza Type B (PCR) RSV RNA Qual (PCR) SARS-CoV-2 RNA (RT-PCR) Blood Type Antibody Screen Crossmatch 12/02/21 12/02/21 12/02/21 05:18 05:25 07:14 WBC RBC Hgb Hct MCV MCH MCHC RDW Plt Count MPV Immature Gran % (Auto) Neut % (Auto) Lymph % (Auto) [place] % (Auto) Eos % (Auto) Baso % (Auto) Lymph # (Auto) [place] # (Auto) Eos # (Auto) Baso # (Auto) Abs Immat Gran (auto) Absolute Neuts (auto) Absolute Nucleated RBC Nucleated RBC % (auto) Neutrophils % (Manual) Band Neutrophils % Lymphocytes % (Manual) Monocytes % (Manual) Abs Neuts (Manual) Lymphocytes # (Manual) Monocytes # (Manual) Platelet Estimate Plt Morphology Comment RBC Morphology Acanthocytes (Spur) Smear Tech's Comments Smear Path Review PT INR APTT O2 Saturation ABG pH at Pt Temp ABG pH (Temp Correct) ABG pCO2 at Pt Temp ABG pCO2 (Temp Corrct ABG pO2 at Pt Temp ABG pO2 (Temp Correct ABG HCO3 ABG Base Excess (Actual) VBG pH 7.38 VBG pCO2 61 VBG pO2 46 VBG HCO3 36 H VBG O2 Saturation 70.0 VBG Base Excess 9.9 Sodium 144 Potassium 4.6 Chloride 102 Carbon Dioxide 31 H Anion Gap 16 BUN 25 H Creatinine 0.78 Estim Creat Clear Calc 98.7 Estimated GFR > 60 POC Glucose 162 H Random Glucose 155 H Fasting Glucose Osmolality Lactic Acid Calcium 8.9 Phosphorus 3.2 Magnesium 2.4 Total Bilirubin Direct Bilirubin AST ALT Alkaline Phosphatase Ammonia Troponin I High Sens B-Natriuretic Peptide Total Protein Albumin 3.7 Procalcitonin TSH Random Cortisol Urine Color Urine Appearance Urine pH Ur Specific [place] Urine Protein Urine Glucose (UA) Urine Ketones Urine Blood Urine Nitrite Ur Leukocyte Esterase Urine RBC Urine WBC Ur Squamous Epith Cells Urine Bacteria Urine Mucus Urine Osmolality Ur Random Sodium Ur Random Potassium Ur Random Chloride Stool Occult Blood Stool Leukocytes, Qual Random Vancomycin Digoxin C. difficile Tox B Gene COVID-19 (JESSY) COVID-19 Clin Com Influenza Type A (PCR) Influenza Type B (PCR) RSV RNA Qual (PCR) SARS-CoV-2 RNA (RT-PCR) Blood Type Antibody Screen Crossmatch 12/02/21 12/02/21 12/02/21 11:30 16:35 21:14 WBC RBC Hgb Hct MCV MCH MCHC RDW Plt Count MPV Immature Gran % (Auto) Neut % (Auto) Lymph % (Auto) [place] % (Auto) Eos % (Auto) Baso % (Auto) Lymph # (Auto) [place] # (Auto) Eos # (Auto) Baso # (Auto) Abs Immat Gran (auto) Absolute Neuts (auto) Absolute Nucleated RBC Nucleated RBC % (auto) Neutrophils % (Manual) Band Neutrophils % Lymphocytes % (Manual) Monocytes % (Manual) Abs Neuts (Manual) Lymphocytes # (Manual) Monocytes # (Manual) Platelet Estimate Plt Morphology Comment RBC Morphology Acanthocytes (Spur) Smear Tech's Comments Smear Path Review PT INR APTT O2 Saturation ABG pH at Pt Temp ABG pH (Temp Correct) ABG pCO2 at Pt Temp ABG pCO2 (Temp Corrct ABG pO2 at Pt Temp ABG pO2 (Temp Correct ABG HCO3 ABG Base Excess (Actual) VBG pH VBG pCO2 VBG pO2 VBG HCO3 VBG O2 Saturation VBG Base Excess Sodium Potassium Chloride Carbon Dioxide Anion Gap BUN Creatinine Estim Creat Clear Calc Estimated GFR POC Glucose 150 H 235 H 179 H Random Glucose Fasting Glucose Osmolality Lactic Acid Calcium Phosphorus Magnesium Total Bilirubin Direct Bilirubin AST ALT Alkaline Phosphatase Ammonia Troponin I High Sens B-Natriuretic Peptide Total Protein Albumin Procalcitonin TSH Random Cortisol Urine Color Urine Appearance Urine pH Ur Specific [place] Urine Protein Urine Glucose (UA) Urine Ketones Urine Blood Urine Nitrite Ur Leukocyte Esterase Urine RBC Urine WBC Ur Squamous Epith Cells Urine Bacteria Urine Mucus Urine Osmolality Ur Random Sodium Ur Random Potassium Ur Random Chloride Stool Occult Blood Stool Leukocytes, Qual Random Vancomycin Digoxin C. difficile Tox B Gene COVID-19 (JESSY) COVID-19 Clin Com Influenza Type A (PCR) Influenza Type B (PCR) RSV RNA Qual (PCR) SARS-CoV-2 RNA (RT-PCR) Blood Type Antibody Screen Crossmatch 12/03/21 12/03/21 12/03/21 05:30 05:30 05:33 WBC 20.8 H RBC 4.75 Hgb 8.8 L Hct 31.7 L MCV 66.7 L MCH 18.5 L MCHC 27.8 L RDW 21.1 H Plt Count 299 MPV 9.3 L Immature Gran % (Auto) 0.8 H Neut % (Auto) 85.8 H Lymph % (Auto) 3.1 L [place] % (Auto) 10.1 Eos % (Auto) 0.1 Baso % (Auto) 0.1 Lymph # (Auto) 0.6 L [place] # (Auto) 2.1 H Eos # (Auto) 0.0 Baso # (Auto) 0.0 Abs Immat Gran (auto) 0.17 H Absolute Neuts (auto) 17.9 H Absolute Nucleated RBC 0.020 H Nucleated RBC % (auto) 0.1 Neutrophils % (Manual) Band Neutrophils % Lymphocytes % (Manual) Monocytes % (Manual) Abs Neuts (Manual) Lymphocytes # (Manual) Monocytes # (Manual) Platelet Estimate Plt Morphology Comment RBC Morphology Acanthocytes (Spur) Smear Tech's Comments VERIFIED Smear Path Review PT INR APTT O2 Saturation ABG pH at Pt Temp ABG pH (Temp Correct) ABG pCO2 at Pt Temp ABG pCO2 (Temp Corrct ABG pO2 at Pt Temp ABG pO2 (Temp Correct ABG HCO3 ABG Base Excess (Actual) VBG pH 7.47 H VBG pCO2 62 VBG pO2 53 VBG HCO3 45 H VBG O2 Saturation 83.0 VBG Base Excess 18.9 Sodium 150 H Potassium 4.2 Chloride 106 Carbon Dioxide 38 H Anion Gap 10 L BUN 21 H Creatinine 0.71 Estim Creat Clear Calc 108.5 Estimated GFR > 60 POC Glucose Random Glucose 151 H Fasting Glucose Osmolality Lactic Acid Calcium 9.0 Phosphorus 2.3 L Magnesium 2.4 Total Bilirubin Direct Bilirubin AST ALT Alkaline Phosphatase Ammonia Troponin I High Sens B-Natriuretic Peptide Total Protein Albumin 3.2 L Procalcitonin TSH Random Cortisol Urine Color Urine Appearance Urine pH Ur Specific [place] Urine Protein Urine Glucose (UA) Urine Ketones Urine Blood Urine Nitrite Ur Leukocyte Esterase Urine RBC Urine WBC Ur Squamous Epith Cells Urine Bacteria Urine Mucus Urine Osmolality Ur Random Sodium Ur Random Potassium Ur Random Chloride Stool Occult Blood Stool Leukocytes, Qual Random Vancomycin Digoxin C. difficile Tox B Gene COVID-19 (JESSY) COVID-19 Clin Com Influenza Type A (PCR) Influenza Type B (PCR) RSV RNA Qual (PCR) SARS-CoV-2 RNA (RT-PCR) Blood Type Antibody Screen Crossmatch 12/03/21 12/03/21 12/03/21 07:05 11:42 15:25 WBC RBC Hgb Hct MCV MCH MCHC RDW Plt Count MPV Immature Gran % (Auto) Neut % (Auto) Lymph % (Auto) [place] % (Auto) Eos % (Auto) Baso % (Auto) Lymph # (Auto) [place] # (Auto) Eos # (Auto) Baso # (Auto) Abs Immat Gran (auto) Absolute Neuts (auto) Absolute Nucleated RBC Nucleated RBC % (auto) Neutrophils % (Manual) Band Neutrophils % Lymphocytes % (Manual) Monocytes % (Manual) Abs Neuts (Manual) Lymphocytes # (Manual) Monocytes # (Manual) Platelet Estimate Plt Morphology Comment RBC Morphology Acanthocytes (Spur) Smear Tech's Comments Smear Path Review PT INR APTT O2 Saturation ABG pH at Pt Temp ABG pH (Temp Correct) ABG pCO2 at Pt Temp ABG pCO2 (Temp Corrct ABG pO2 at Pt Temp ABG pO2 (Temp Correct ABG HCO3 ABG Base Excess (Actual) VBG pH VBG pCO2 VBG pO2 VBG HCO3 VBG O2 Saturation VBG Base Excess Sodium 151 H Potassium 3.9 Chloride 106 Carbon Dioxide 40 H* Anion Gap 9 L BUN Creatinine Estim Creat Clear Calc Estimated GFR POC Glucose 141 H 198 H Random Glucose Fasting Glucose Osmolality Lactic Acid Calcium Phosphorus Magnesium Total Bilirubin Direct Bilirubin AST ALT Alkaline Phosphatase Ammonia Troponin I High Sens B-Natriuretic Peptide Total Protein Albumin Procalcitonin TSH Random Cortisol Urine Color Urine Appearance Urine pH Ur Specific [place] Urine Protein Urine Glucose (UA) Urine Ketones Urine Blood Urine Nitrite Ur Leukocyte Esterase Urine RBC Urine WBC Ur Squamous Epith Cells Urine Bacteria Urine Mucus Urine Osmolality Ur Random Sodium Ur Random Potassium Ur Random Chloride Stool Occult Blood Stool Leukocytes, Qual Random Vancomycin Digoxin C. difficile Tox B Gene COVID-19 (JESSY) COVID-19 Clin Com Influenza Type A (PCR) Influenza Type B (PCR) RSV RNA Qual (PCR) SARS-CoV-2 RNA (RT-PCR) Blood Type Antibody Screen Crossmatch 12/03/21 12/03/21 12/03/21 16:48 20:18 21:30 WBC RBC Hgb Hct MCV MCH MCHC RDW Plt Count MPV Immature Gran % (Auto) Neut % (Auto) Lymph % (Auto) [place] % (Auto) Eos % (Auto) Baso % (Auto) Lymph # (Auto) [place] # (Auto) Eos # (Auto) Baso # (Auto) Abs Immat Gran (auto) Absolute Neuts (auto) Absolute Nucleated RBC Nucleated RBC % (auto) Neutrophils % (Manual) Band Neutrophils % Lymphocytes % (Manual) Monocytes % (Manual) Abs Neuts (Manual) Lymphocytes # (Manual) Monocytes # (Manual) Platelet Estimate Plt Morphology Comment RBC Morphology Acanthocytes (Spur) Smear Tech's Comments Smear Path Review PT INR APTT O2 Saturation ABG pH at Pt Temp ABG pH (Temp Correct) ABG pCO2 at Pt Temp ABG pCO2 (Temp Corrct ABG pO2 at Pt Temp ABG pO2 (Temp Correct ABG HCO3 ABG Base Excess (Actual) VBG pH VBG pCO2 VBG pO2 VBG HCO3 VBG O2 Saturation VBG Base Excess Sodium Potassium Chloride Carbon Dioxide Anion Gap BUN Creatinine Estim Creat Clear Calc Estimated GFR POC Glucose 197 H 213 H Random Glucose Fasting Glucose Osmolality Lactic Acid Calcium Phosphorus Magnesium Total Bilirubin Direct Bilirubin AST ALT Alkaline Phosphatase Ammonia Troponin I High Sens B-Natriuretic Peptide Total Protein Albumin Procalcitonin TSH Random Cortisol Urine Color Urine Appearance Urine pH Ur Specific [place] Urine Protein Urine Glucose (UA) Urine Ketones Urine Blood Urine Nitrite Ur Leukocyte Esterase Urine RBC Urine WBC Ur Squamous Epith Cells Urine Bacteria Urine Mucus Urine Osmolality Ur Random Sodium Ur Random Potassium Ur Random Chloride Stool Occult Blood Stool Leukocytes, Qual Random Vancomycin Digoxin C. difficile Tox B Gene COVID-19 (JESSY) Negative COVID-19 Clin Com See Note Influenza Type A (PCR) Influenza Type B (PCR) RSV RNA Qual (PCR) SARS-CoV-2 RNA (RT-PCR) Blood Type Antibody Screen Crossmatch 12/04/21 12/04/21 12/04/21 07:58 11:44 12:44 WBC RBC Hgb Hct MCV MCH MCHC RDW Plt Count MPV Immature Gran % (Auto) Neut % (Auto) Lymph % (Auto) [place] % (Auto) Eos % (Auto) Baso % (Auto) Lymph # (Auto) [place] # (Auto) Eos # (Auto) Baso # (Auto) Abs Immat Gran (auto) Absolute Neuts (auto) Absolute Nucleated RBC Nucleated RBC % (auto) Neutrophils % (Manual) Band Neutrophils % Lymphocytes % (Manual) Monocytes % (Manual) Abs Neuts (Manual) Lymphocytes # (Manual) Monocytes # (Manual) Platelet Estimate Plt Morphology Comment RBC Morphology Acanthocytes (Spur) Smear Tech's Comments Smear Path Review PT INR APTT O2 Saturation ABG pH at Pt Temp ABG pH (Temp Correct) ABG pCO2 at Pt Temp ABG pCO2 (Temp Corrct ABG pO2 at Pt Temp ABG pO2 (Temp Correct ABG HCO3 ABG Base Excess (Actual) VBG pH VBG pCO2 VBG pO2 VBG HCO3 VBG O2 Saturation VBG Base Excess Sodium 153 H Potassium 3.6 Chloride 107 Carbon Dioxide 40 H* Anion Gap 10 L BUN 19 H Creatinine 0.80 Estim Creat Clear Calc 96.2 Estimated GFR > 60 POC Glucose 168 H 168 H Random Glucose 175 H Fasting Glucose Osmolality Lactic Acid Calcium 8.6 Phosphorus Magnesium Total Bilirubin Direct Bilirubin AST ALT Alkaline Phosphatase Ammonia Troponin I High Sens B-Natriuretic Peptide Total Protein Albumin Procalcitonin TSH Random Cortisol Urine Color Urine Appearance Urine pH Ur Specific [place] Urine Protein Urine Glucose (UA) Urine Ketones Urine Blood Urine Nitrite Ur Leukocyte Esterase Urine RBC Urine WBC Ur Squamous Epith Cells Urine Bacteria Urine Mucus Urine Osmolality Ur Random Sodium Ur Random Potassium Ur Random Chloride Stool Occult Blood Stool Leukocytes, Qual Random Vancomycin Digoxin C. difficile Tox B Gene COVID-19 (JESSY) COVID-19 Clin Com Influenza Type A (PCR) Influenza Type B (PCR) RSV RNA Qual (PCR) SARS-CoV-2 RNA (RT-PCR) Blood Type Antibody Screen Crossmatch 12/04/21 12/04/21 12/04/21 12:44 17:03 20:10 WBC 22.0 H RBC 4.83 Hgb 9.2 L Hct 33.7 L MCV 69.8 L MCH 19.0 L MCHC 27.3 L RDW 22.2 H Plt Count 314 MPV 9.3 L Immature Gran % (Auto) Neut % (Auto) Lymph % (Auto) [place] % (Auto) Eos % (Auto) Baso % (Auto) Lymph # (Auto) [place] # (Auto) Eos # (Auto) Baso # (Auto) Abs Immat Gran (auto) Absolute Neuts (auto) Absolute Nucleated RBC 0.020 H Nucleated RBC % (auto) 0.1 Neutrophils % (Manual) Band Neutrophils % Lymphocytes % (Manual) Monocytes % (Manual) Abs Neuts (Manual) Lymphocytes # (Manual) Monocytes # (Manual) Platelet Estimate Plt Morphology Comment RBC Morphology Acanthocytes (Spur) Smear Tech's Comments Smear Path Review PT INR APTT O2 Saturation ABG pH at Pt Temp ABG pH (Temp Correct) ABG pCO2 at Pt Temp ABG pCO2 (Temp Corrct ABG pO2 at Pt Temp ABG pO2 (Temp Correct ABG HCO3 ABG Base Excess (Actual) VBG pH VBG pCO2 VBG pO2 VBG HCO3 VBG O2 Saturation VBG Base Excess Sodium Potassium Chloride Carbon Dioxide Anion Gap BUN Creatinine Estim Creat Clear Calc Estimated GFR POC Glucose 168 H 138 H Random Glucose Fasting Glucose Osmolality Lactic Acid Calcium Phosphorus Magnesium Total Bilirubin Direct Bilirubin AST ALT Alkaline Phosphatase Ammonia Troponin I High Sens B-Natriuretic Peptide Total Protein Albumin Procalcitonin TSH Random Cortisol Urine Color Urine Appearance Urine pH Ur Specific [place] Urine Protein Urine Glucose (UA) Urine Ketones Urine Blood Urine Nitrite Ur Leukocyte Esterase Urine RBC Urine WBC Ur Squamous Epith Cells Urine Bacteria Urine Mucus Urine Osmolality Ur Random Sodium Ur Random Potassium Ur Random Chloride Stool Occult Blood Stool Leukocytes, Qual Random Vancomycin Digoxin C. difficile Tox B Gene COVID-19 (JESSY) COVID-19 Clin Com Influenza Type A (PCR) Influenza Type B (PCR) RSV RNA Qual (PCR) SARS-CoV-2 RNA (RT-PCR) Blood Type Antibody Screen Crossmatch 12/04/21 12/05/21 12/05/21 21:30 07:27 07:27 WBC 18.8 H RBC 4.78 Hgb 8.9 L Hct 33.8 L MCV 70.7 L MCH 18.6 L MCHC 26.3 L RDW 22.1 H Plt Count 290 MPV 10.0 Immature Gran % (Auto) Neut % (Auto) Lymph % (Auto) [place] % (Auto) Eos % (Auto) Baso % (Auto) Lymph # (Auto) [place] # (Auto) Eos # (Auto) Baso # (Auto) Abs Immat Gran (auto) Absolute Neuts (auto) Absolute Nucleated RBC 0.000 Nucleated RBC % (auto) 0.0 Neutrophils % (Manual) Band Neutrophils % Lymphocytes % (Manual) Monocytes % (Manual) Abs Neuts (Manual) Lymphocytes # (Manual) Monocytes # (Manual) Platelet Estimate Plt Morphology Comment RBC Morphology Acanthocytes (Spur) Smear Tech's Comments Smear Path Review PT INR APTT O2 Saturation ABG pH at Pt Temp ABG pH (Temp Correct) ABG pCO2 at Pt Temp ABG pCO2 (Temp Corrct ABG pO2 at Pt Temp ABG pO2 (Temp Correct ABG HCO3 ABG Base Excess (Actual) VBG pH VBG pCO2 VBG pO2 VBG HCO3 VBG O2 Saturation VBG Base Excess Sodium 153 H 153 H Potassium 3.8 3.7 Chloride 109 H 109 H Carbon Dioxide 38 H 38 H Anion Gap 10 L 10 L BUN 24 H Creatinine 0.87 Estim Creat Clear Calc 88.5 Estimated GFR > 60 POC Glucose Random Glucose 131 H Fasting Glucose Osmolality Lactic Acid Calcium 8.4 Phosphorus Magnesium Total Bilirubin Direct Bilirubin AST ALT Alkaline Phosphatase Ammonia Troponin I High Sens B-Natriuretic Peptide Total Protein Albumin Procalcitonin TSH Random Cortisol Urine Color Urine Appearance Urine pH Ur Specific [place] Urine Protein Urine Glucose (UA) Urine Ketones Urine Blood Urine Nitrite Ur Leukocyte Esterase Urine RBC Urine WBC Ur Squamous Epith Cells Urine Bacteria Urine Mucus Urine Osmolality Ur Random Sodium Ur Random Potassium Ur Random Chloride Stool Occult Blood Stool Leukocytes, Qual Random Vancomycin Digoxin C. difficile Tox B Gene COVID-19 (JESSY) COVID-19 Clin Com Influenza Type A (PCR) Influenza Type B (PCR) RSV RNA Qual (PCR) SARS-CoV-2 RNA (RT-PCR) Blood Type Antibody Screen Crossmatch 12/05/21 12/05/21 12/05/21 07:30 10:39 16:22 WBC RBC Hgb Hct MCV MCH MCHC RDW Plt Count MPV Immature Gran % (Auto) Neut % (Auto) Lymph % (Auto) [place] % (Auto) Eos % (Auto) Baso % (Auto) Lymph # (Auto) [place] # (Auto) Eos # (Auto) Baso # (Auto) Abs Immat Gran (auto) Absolute Neuts (auto) Absolute Nucleated RBC Nucleated RBC % (auto) Neutrophils % (Manual) Band Neutrophils % Lymphocytes % (Manual) Monocytes % (Manual) Abs Neuts (Manual) Lymphocytes # (Manual) Monocytes # (Manual) Platelet Estimate Plt Morphology Comment RBC Morphology Acanthocytes (Spur) Smear Tech's Comments Smear Path Review PT INR APTT O2 Saturation ABG pH at Pt Temp ABG pH (Temp Correct) ABG pCO2 at Pt Temp ABG pCO2 (Temp Corrct ABG pO2 at Pt Temp ABG pO2 (Temp Correct ABG HCO3 ABG Base Excess (Actual) VBG pH VBG pCO2 VBG pO2 VBG HCO3 VBG O2 Saturation VBG Base Excess Sodium Potassium Chloride Carbon Dioxide Anion Gap BUN Creatinine Estim Creat Clear Calc Estimated GFR POC Glucose 138 H 131 H 208 H Random Glucose Fasting Glucose Osmolality Lactic Acid Calcium Phosphorus Magnesium Total Bilirubin Direct Bilirubin AST ALT Alkaline Phosphatase Ammonia Troponin I High Sens B-Natriuretic Peptide Total Protein Albumin Procalcitonin TSH Random Cortisol Urine Color Urine Appearance Urine pH Ur Specific [place] Urine Protein Urine Glucose (UA) Urine Ketones Urine Blood Urine Nitrite Ur Leukocyte Esterase Urine RBC Urine WBC Ur Squamous Epith Cells Urine Bacteria Urine Mucus Urine Osmolality Ur Random Sodium Ur Random Potassium Ur Random Chloride Stool Occult Blood Stool Leukocytes, Qual Random Vancomycin Digoxin C. difficile Tox B Gene COVID-19 (JESSY) COVID-19 Clin Com Influenza Type A (PCR) Influenza Type B (PCR) RSV RNA Qual (PCR) SARS-CoV-2 RNA (RT-PCR) Blood Type Antibody Screen Crossmatch 12/05/21 12/06/21 12/06/21 20:10 05:52 05:52 WBC 17.1 H RBC 4.58 Hgb 8.8 L Hct 33.2 L MCV 72.5 L MCH 19.2 L MCHC 26.5 L RDW 22.5 H Plt Count 249 MPV 9.8 Immature Gran % (Auto) Neut % (Auto) Lymph % (Auto) [place] % (Auto) Eos % (Auto) Baso % (Auto) Lymph # (Auto) [place] # (Auto) Eos # (Auto) Baso # (Auto) Abs Immat Gran (auto) Absolute Neuts (auto) Absolute Nucleated RBC 0.000 Nucleated RBC % (auto) 0.0 Neutrophils % (Manual) Band Neutrophils % Lymphocytes % (Manual) Monocytes % (Manual) Abs Neuts (Manual) Lymphocytes # (Manual) Monocytes # (Manual) Platelet Estimate Plt Morphology Comment RBC Morphology Acanthocytes (Spur) Smear Tech's Comments Smear Path Review PT INR APTT O2 Saturation ABG pH at Pt Temp ABG pH (Temp Correct) ABG pCO2 at Pt Temp ABG pCO2 (Temp Corrct ABG pO2 at Pt Temp ABG pO2 (Temp Correct ABG HCO3 ABG Base Excess (Actual) VBG pH VBG pCO2 VBG pO2 VBG HCO3 VBG O2 Saturation VBG Base Excess Sodium 152 H Potassium 3.9 Chloride 108 Carbon Dioxide 38 H Anion Gap 10 L BUN 33 H Creatinine 1.18 Estim Creat Clear Calc 65.2 Estimated GFR 46 POC Glucose 148 H Random Glucose 155 H Fasting Glucose Osmolality Lactic Acid Calcium 8.3 L Phosphorus Magnesium Total Bilirubin Direct Bilirubin AST ALT Alkaline Phosphatase Ammonia Troponin I High Sens B-Natriuretic Peptide Total Protein Albumin Procalcitonin TSH Random Cortisol Urine Color Urine Appearance Urine pH Ur Specific [place] Urine Protein Urine Glucose (UA) Urine Ketones Urine Blood Urine Nitrite Ur Leukocyte Esterase Urine RBC Urine WBC Ur Squamous Epith Cells Urine Bacteria Urine Mucus Urine Osmolality Ur Random Sodium Ur Random Potassium Ur Random Chloride Stool Occult Blood Stool Leukocytes, Qual Random Vancomycin Digoxin C. difficile Tox B Gene COVID-19 (JESSY) COVID-19 Clin Com Influenza Type A (PCR) Influenza Type B (PCR) RSV RNA Qual (PCR) SARS-CoV-2 RNA (RT-PCR) Blood Type Antibody Screen Crossmatch 12/06/21 12/06/21 12/06/21 07:13 10:55 11:05 WBC RBC Hgb Hct MCV MCH MCHC RDW Plt Count MPV Immature Gran % (Auto) Neut % (Auto) Lymph % (Auto) [place] % (Auto) Eos % (Auto) Baso % (Auto) Lymph # (Auto) [place] # (Auto) Eos # (Auto) Baso # (Auto) Abs Immat Gran (auto) Absolute Neuts (auto) Absolute Nucleated RBC Nucleated RBC % (auto) Neutrophils % (Manual) Band Neutrophils % Lymphocytes % (Manual) Monocytes % (Manual) Abs Neuts (Manual) Lymphocytes # (Manual) Monocytes # (Manual) Platelet Estimate Plt Morphology Comment RBC Morphology Acanthocytes (Spur) Smear Tech's Comments Smear Path Review PT INR APTT O2 Saturation 95.0 ABG pH at Pt Temp 7.34 L ABG pH (Temp Correct) 7.34 L ABG pCO2 at Pt Temp 85 H* ABG pCO2 (Temp Corrct 84 H* ABG pO2 at Pt Temp 81 L ABG pO2 (Temp Correct 80 L ABG HCO3 46 H ABG Base Excess (Actual) 17.2 VBG pH VBG pCO2 VBG pO2 VBG HCO3 VBG O2 Saturation VBG Base Excess Sodium Potassium Chloride Carbon Dioxide Anion Gap BUN Creatinine Estim Creat Clear Calc Estimated GFR POC Glucose 157 H 180 H Random Glucose Fasting Glucose Osmolality Lactic Acid Calcium Phosphorus Magnesium Total Bilirubin Direct Bilirubin AST ALT Alkaline Phosphatase Ammonia Troponin I High Sens B-Natriuretic Peptide Total Protein Albumin Procalcitonin TSH Random Cortisol Urine Color Urine Appearance Urine pH Ur Specific [place] Urine Protein Urine Glucose (UA) Urine Ketones Urine Blood Urine Nitrite Ur Leukocyte Esterase Urine RBC Urine WBC Ur Squamous Epith Cells Urine Bacteria Urine Mucus Urine Osmolality Ur Random Sodium Ur Random Potassium Ur Random Chloride Stool Occult Blood Stool Leukocytes, Qual Random Vancomycin Digoxin C. difficile Tox B Gene COVID-19 (JESSY) COVID-19 Clin Com Influenza Type A (PCR) Influenza Type B (PCR) RSV RNA Qual (PCR) SARS-CoV-2 RNA (RT-PCR) Blood Type Antibody Screen Crossmatch 12/06/21 12/06/21 12/06/21 16:28 18:10 18:16 WBC RBC Hgb Hct MCV MCH MCHC RDW Plt Count MPV Immature Gran % (Auto) Neut % (Auto) Lymph % (Auto) [place] % (Auto) Eos % (Auto) Baso % (Auto) Lymph # (Auto) [place] # (Auto) Eos # (Auto) Baso # (Auto) Abs Immat Gran (auto) Absolute Neuts (auto) Absolute Nucleated RBC Nucleated RBC % (auto) Neutrophils % (Manual) Band Neutrophils % Lymphocytes % (Manual) Monocytes % (Manual) Abs Neuts (Manual) Lymphocytes # (Manual) Monocytes # (Manual) Platelet Estimate Plt Morphology Comment RBC Morphology Acanthocytes (Spur) Smear Tech's Comments Smear Path Review PT INR APTT O2 Saturation ABG pH at Pt Temp ABG pH (Temp Correct) ABG pCO2 at Pt Temp ABG pCO2 (Temp Corrct ABG pO2 at Pt Temp ABG pO2 (Temp Correct ABG HCO3 ABG Base Excess (Actual) VBG pH 7.35 VBG pCO2 81 VBG pO2 39 VBG HCO3 46 H VBG O2 Saturation 62.0 VBG Base Excess 17.3 Sodium Potassium Chloride Carbon Dioxide Anion Gap BUN Creatinine Estim Creat Clear Calc Estimated GFR POC Glucose 92 Random Glucose Fasting Glucose Osmolality Lactic Acid Calcium Phosphorus Magnesium Total Bilirubin Direct Bilirubin AST ALT Alkaline Phosphatase Ammonia Troponin I High Sens B-Natriuretic Peptide Total Protein Albumin Procalcitonin TSH Random Cortisol Urine Color YELLOW Urine Appearance HAZY Urine pH 6.0 Ur Specific [place] 1.015 Urine Protein TRACE Urine Glucose (UA) NEG Urine Ketones NEG Urine Blood 3+ H Urine Nitrite NEG Ur Leukocyte Esterase NEG Urine RBC 50-75 H Urine WBC 1-4 Ur Squamous Epith Cells TRACE Urine Bacteria TRACE Urine Mucus Urine Osmolality Ur Random Sodium Ur Random Potassium Ur Random Chloride Stool Occult Blood Stool Leukocytes, Qual Random Vancomycin Digoxin C. difficile Tox B Gene COVID-19 (JESSY) COVID-19 Clin Com Influenza Type A (PCR) Influenza Type B (PCR) RSV RNA Qual (PCR) SARS-CoV-2 RNA (RT-PCR) Blood Type Antibody Screen Crossmatch 12/06/21 12/06/21 12/06/21 18:17 21:19 22:01 WBC RBC Hgb Hct MCV MCH MCHC RDW Plt Count MPV Immature Gran % (Auto) Neut % (Auto) Lymph % (Auto) [place] % (Auto) Eos % (Auto) Baso % (Auto) Lymph # (Auto) [place] # (Auto) Eos # (Auto) Baso # (Auto) Abs Immat Gran (auto) Absolute Neuts (auto) Absolute Nucleated RBC Nucleated RBC % (auto) Neutrophils % (Manual) Band Neutrophils % Lymphocytes % (Manual) Monocytes % (Manual) Abs Neuts (Manual) Lymphocytes # (Manual) Monocytes # (Manual) Platelet Estimate Plt Morphology Comment RBC Morphology Acanthocytes (Spur) Smear Tech's Comments Smear Path Review PT INR APTT O2 Saturation ABG pH at Pt Temp ABG pH (Temp Correct) ABG pCO2 at Pt Temp ABG pCO2 (Temp Corrct ABG pO2 at Pt Temp ABG pO2 (Temp Correct ABG HCO3 ABG Base Excess (Actual) VBG pH 7.55 H VBG pCO2 43 VBG pO2 33 VBG HCO3 37 H VBG O2 Saturation 66.0 VBG Base Excess 14.2 Sodium Potassium Chloride Carbon Dioxide Anion Gap BUN Creatinine Estim Creat Clear Calc Estimated GFR POC Glucose 118 H Random Glucose Fasting Glucose Osmolality Lactic Acid 0.6 Calcium Phosphorus Magnesium Total Bilirubin Direct Bilirubin AST ALT Alkaline Phosphatase Ammonia Troponin I High Sens B-Natriuretic Peptide Total Protein Albumin Procalcitonin TSH Random Cortisol Urine Color Urine Appearance Urine pH Ur Specific [place] Urine Protein Urine Glucose (UA) Urine Ketones Urine Blood Urine Nitrite Ur Leukocyte Esterase Urine RBC Urine WBC Ur Squamous Epith Cells Urine Bacteria Urine Mucus Urine Osmolality Ur Random Sodium Ur Random Potassium Ur Random Chloride Stool Occult Blood Stool Leukocytes, Qual Random Vancomycin Digoxin C. difficile Tox B Gene COVID-19 (JESSY) COVID-19 Clin Com Influenza Type A (PCR) Influenza Type B (PCR) RSV RNA Qual (PCR) SARS-CoV-2 RNA (RT-PCR) Blood Type Antibody Screen Crossmatch 12/07/21 12/07/21 12/07/21 05:20 05:20 05:20 WBC 22.8 H RBC 4.29 Hgb 8.1 L Hct 30.0 L MCV 69.9 L MCH 18.9 L MCHC 27.0 L RDW 22.6 H Plt Count 233 MPV 10.3 Immature Gran % (Auto) 0.9 H Neut % (Auto) 88.2 H Lymph % (Auto) 5.3 L [place] % (Auto) 5.4 Eos % (Auto) 0.1 Baso % (Auto) 0.1 Lymph # (Auto) 1.2 Bradley # (Auto) 1.2 Eos # (Auto) 0.0 Baso # (Auto) 0.0 Abs Immat Gran (auto) 0.21 H Absolute Neuts (auto) 20.1 H Absolute Nucleated RBC 0.030 H Nucleated RBC % (auto) 0.1 Neutrophils % (Manual) Band Neutrophils % Lymphocytes % (Manual) Monocytes % (Manual) Abs Neuts (Manual) Lymphocytes # (Manual) Monocytes # (Manual) Platelet Estimate Plt Morphology Comment RBC Morphology Acanthocytes (Spur) Smear Tech's Comments VERIFIED Smear Path Review PT INR APTT O2 Saturation ABG pH at Pt Temp ABG pH (Temp Correct) ABG pCO2 at Pt Temp ABG pCO2 (Temp Corrct ABG pO2 at Pt Temp ABG pO2 (Temp Correct ABG HCO3 ABG Base Excess (Actual) VBG pH 7.59 H VBG pCO2 33 VBG pO2 41 VBG HCO3 32 H VBG O2 Saturation 79.0 VBG Base Excess 10.8 Sodium 154 H Potassium 2.8 L D Chloride 109 H Carbon Dioxide 32 H Anion Gap 16 BUN 38 H Creatinine 1.31 Estim Creat Clear Calc 54.5 Estimated GFR 40 POC Glucose Random Glucose 257 H Fasting Glucose Osmolality Lactic Acid Calcium 7.8 L D Phosphorus 1.4 L Magnesium 2.4 Total Bilirubin 0.9 Direct Bilirubin AST 82 H ALT 23 Alkaline Phosphatase 54 D Ammonia Troponin I High Sens B-Natriuretic Peptide Total Protein 4.9 L D Albumin 2.5 L D Procalcitonin TSH Random Cortisol Urine Color Urine Appearance Urine pH Ur Specific [place] Urine Protein Urine Glucose (UA) Urine Ketones Urine Blood Urine Nitrite Ur Leukocyte Esterase Urine RBC Urine WBC Ur Squamous Epith Cells Urine Bacteria Urine Mucus Urine Osmolality Ur Random Sodium Ur Random Potassium Ur Random Chloride Stool Occult Blood Stool Leukocytes, Qual Random Vancomycin Digoxin C. difficile Tox B Gene COVID-19 (JESSY) COVID-19 Clin Com Influenza Type A (PCR) Influenza Type B (PCR) RSV RNA Qual (PCR) SARS-CoV-2 RNA (RT-PCR) Blood Type Antibody Screen Crossmatch 0112/07/21 12/07/21 07:15 11:32 17:43 WBC RBC Hgb Hct MCV MCH MCHC RDW Plt Count MPV Immature Gran % (Auto) Neut % (Auto) Lymph % (Auto) [place] % (Auto) Eos % (Auto) Baso % (Auto) Lymph # (Auto) [place] # (Auto) Eos # (Auto) Baso # (Auto) Abs Immat Gran (auto) Absolute Neuts (auto) Absolute Nucleated RBC Nucleated RBC % (auto) Neutrophils % (Manual) Band Neutrophils % Lymphocytes % (Manual) Monocytes % (Manual) Abs Neuts (Manual) Lymphocytes # (Manual) Monocytes # (Manual) Platelet Estimate Plt Morphology Comment RBC Morphology Acanthocytes (Spur) Smear Tech's Comments Smear Path Review PT INR APTT O2 Saturation ABG pH at Pt Temp ABG pH (Temp Correct) ABG pCO2 at Pt Temp ABG pCO2 (Temp Corrct ABG pO2 at Pt Temp ABG pO2 (Temp Correct ABG HCO3 ABG Base Excess (Actual) VBG pH VBG pCO2 VBG pO2 VBG HCO3 VBG O2 Saturation VBG Base Excess Sodium Potassium Chloride Carbon Dioxide Anion Gap BUN Creatinine Estim Creat Clear Calc Estimated GFR POC Glucose 279 H 289 H 290 H Random Glucose Fasting Glucose Osmolality Lactic Acid Calcium Phosphorus Magnesium Total Bilirubin Direct Bilirubin AST ALT Alkaline Phosphatase Ammonia Troponin I High Sens B-Natriuretic Peptide Total Protein Albumin Procalcitonin TSH Random Cortisol Urine Color Urine Appearance Urine pH Ur Specific [place] Urine Protein Urine Glucose (UA) Urine Ketones Urine Blood Urine Nitrite Ur Leukocyte Esterase Urine RBC Urine WBC Ur Squamous Epith Cells Urine Bacteria Urine Mucus Urine Osmolality Ur Random Sodium Ur Random Potassium Ur Random Chloride Stool Occult Blood Stool Leukocytes, Qual Random Vancomycin Digoxin C. difficile Tox B Gene COVID-19 (JESSY) COVID-19 Clin Com Influenza Type A (PCR) Influenza Type B (PCR) RSV RNA Qual (PCR) SARS-CoV-2 RNA (RT-PCR) Blood Type Antibody Screen Crossmatch 12/07/21 12/07/21 12/08/21 18:46 21:19 01:23 WBC RBC Hgb Hct MCV MCH MCHC RDW Plt Count MPV Immature Gran % (Auto) Neut % (Auto) Lymph % (Auto) [place] % (Auto) Eos % (Auto) Baso % (Auto) Lymph # (Auto) [place] # (Auto) Eos # (Auto) Baso # (Auto) Abs Immat Gran (auto) Absolute Neuts (auto) Absolute Nucleated RBC Nucleated RBC % (auto) Neutrophils % (Manual) Band Neutrophils % Lymphocytes % (Manual) Monocytes % (Manual) Abs Neuts (Manual) Lymphocytes # (Manual) Monocytes # (Manual) Platelet Estimate Plt Morphology Comment RBC Morphology Acanthocytes (Spur) Smear Tech's Comments Smear Path Review PT INR APTT O2 Saturation ABG pH at Pt Temp ABG pH (Temp Correct) ABG pCO2 at Pt Temp ABG pCO2 (Temp Corrct ABG pO2 at Pt Temp ABG pO2 (Temp Correct ABG HCO3 ABG Base Excess (Actual) VBG pH VBG pCO2 VBG pO2 VBG HCO3 VBG O2 Saturation VBG Base Excess Sodium 152 H Potassium 2.5 L* Chloride 111 H Carbon Dioxide 29 Anion Gap 15 BUN 32 H Creatinine 1.19 Estim Creat Clear Calc 60.0 Estimated GFR 45 POC Glucose 282 H 213 H Random Glucose 296 H Fasting Glucose Osmolality Lactic Acid Calcium 7.7 L Phosphorus 1.5 L Magnesium Total Bilirubin Direct Bilirubin AST ALT Alkaline Phosphatase Ammonia Troponin I High Sens B-Natriuretic Peptide Total Protein Albumin Procalcitonin TSH Random Cortisol Urine Color Urine Appearance Urine pH Ur Specific [place] Urine Protein Urine Glucose (UA) Urine Ketones Urine Blood Urine Nitrite Ur Leukocyte Esterase Urine RBC Urine WBC Ur Squamous Epith Cells Urine Bacteria Urine Mucus Urine Osmolality Ur Random Sodium Ur Random Potassium Ur Random Chloride Stool Occult Blood Stool Leukocytes, Qual Random Vancomycin Digoxin C. difficile Tox B Gene COVID-19 (JESSY) COVID-19 Clin Com Influenza Type A (PCR) Influenza Type B (PCR) RSV RNA Qual (PCR) SARS-CoV-2 RNA (RT-PCR) Blood Type Antibody Screen Crossmatch 12/08/21 12/08/21 12/08/21 05:00 05:25 05:25 WBC Cancelled RBC Cancelled Hgb Cancelled Hct Cancelled MCV Cancelled MCH Cancelled MCHC Cancelled RDW Cancelled Plt Count Cancelled MPV Cancelled Immature Gran % (Auto) Neut % (Auto) Lymph % (Auto) [place] % (Auto) Eos % (Auto) Baso % (Auto) Lymph # (Auto) [place] # (Auto) Eos # (Auto) Baso # (Auto) Abs Immat Gran (auto) Absolute Neuts (auto) Absolute Nucleated RBC Cancelled Nucleated RBC % (auto) Cancelled Neutrophils % (Manual) Band Neutrophils % Lymphocytes % (Manual) Monocytes % (Manual) Abs Neuts (Manual) Lymphocytes # (Manual) Monocytes # (Manual) Platelet Estimate Plt Morphology Comment RBC Morphology Acanthocytes (Spur) Smear Tech's Comments Smear Path Review PT INR APTT O2 Saturation ABG pH at Pt Temp ABG pH (Temp Correct) ABG pCO2 at Pt Temp ABG pCO2 (Temp Corrct ABG pO2 at Pt Temp ABG pO2 (Temp Correct ABG HCO3 ABG Base Excess (Actual) VBG pH VBG pCO2 VBG pO2 VBG HCO3 VBG O2 Saturation VBG Base Excess Sodium 149 H Potassium 3.0 L Chloride 111 H Carbon Dioxide 29 Anion Gap 12 BUN 31 H Creatinine 1.21 Estim Creat Clear Calc 71.3 Estimated GFR 44 POC Glucose Random Glucose 268 H Fasting Glucose Osmolality Lactic Acid Calcium 7.3 L Phosphorus 3.1 Magnesium Total Bilirubin 0.5 Direct Bilirubin AST 72 H ALT 23 Alkaline Phosphatase 49 Ammonia Troponin I High Sens B-Natriuretic Peptide 117 H Total Protein 5.0 L Albumin 2.8 L Procalcitonin TSH Random Cortisol Urine Color Urine Appearance Urine pH Ur Specific [place] Urine Protein Urine Glucose (UA) Urine Ketones Urine Blood Urine Nitrite Ur Leukocyte Esterase Urine RBC Urine WBC Ur Squamous Epith Cells Urine Bacteria Urine Mucus Urine Osmolality Ur Random Sodium Ur Random Potassium Ur Random Chloride Stool Occult Blood Stool Leukocytes, Qual Random Vancomycin Digoxin C. difficile Tox B Gene COVID-19 (JESSY) COVID-19 Clin Com Influenza Type A (PCR) Influenza Type B (PCR) RSV RNA Qual (PCR) SARS-CoV-2 RNA (RT-PCR) Blood Type Antibody Screen Crossmatch 12/08/21 12/08/21 12/08/21 05:27 06:37 07:32 WBC RBC Hgb Hct MCV MCH MCHC RDW Plt Count MPV Immature Gran % (Auto) Neut % (Auto) Lymph % (Auto) [place] % (Auto) Eos % (Auto) Baso % (Auto) Lymph # (Auto) [place] # (Auto) Eos # (Auto) Baso # (Auto) Abs Immat Gran (auto) Absolute Neuts (auto) Absolute Nucleated RBC Nucleated RBC % (auto) Neutrophils % (Manual) Band Neutrophils % Lymphocytes % (Manual) Monocytes % (Manual) Abs Neuts (Manual) Lymphocytes # (Manual) Monocytes # (Manual) Platelet Estimate Plt Morphology Comment RBC Morphology Acanthocytes (Spur) Smear Tech's Comments Smear Path Review PT INR APTT O2 Saturation ABG pH at Pt Temp ABG pH (Temp Correct) ABG pCO2 at Pt Temp ABG pCO2 (Temp Corrct ABG pO2 at Pt Temp ABG pO2 (Temp Correct ABG HCO3 ABG Base Excess (Actual) VBG pH 7.52 H VBG pCO2 38 VBG pO2 48 VBG HCO3 31 H VBG O2 Saturation 79.0 VBG Base Excess 8.3 Sodium Potassium Chloride Carbon Dioxide Anion Gap BUN Creatinine Estim Creat Clear Calc Estimated GFR POC Glucose 253 H 254 H Random Glucose Fasting Glucose Osmolality Lactic Acid Calcium Phosphorus Magnesium Total Bilirubin Direct Bilirubin AST ALT Alkaline Phosphatase Ammonia Troponin I High Sens B-Natriuretic Peptide Total Protein Albumin Procalcitonin TSH Random Cortisol Urine Color Urine Appearance Urine pH Ur Specific [place] Urine Protein Urine Glucose (UA) Urine Ketones Urine Blood Urine Nitrite Ur Leukocyte Esterase Urine RBC Urine WBC Ur Squamous Epith Cells Urine Bacteria Urine Mucus Urine Osmolality Ur Random Sodium Ur Random Potassium Ur Random Chloride Stool Occult Blood Stool Leukocytes, Qual Random Vancomycin Digoxin C. difficile Tox B Gene COVID-19 (JESSY) COVID-19 Clin Com Influenza Type A (PCR) Influenza Type B (PCR) RSV RNA Qual (PCR) SARS-CoV-2 RNA (RT-PCR) Blood Type Antibody Screen Crossmatch 12/08/21 12/08/21 12/08/21 08:07 11:53 11:59 WBC 19.2 H RBC 3.92 L Hgb 7.4 L Hct 26.8 L MCV 68.4 L MCH 18.9 L MCHC 27.6 L RDW 22.9 H Plt Count 186 MPV Not Reportable Immature Gran % (Auto) Neut % (Auto) Lymph % (Auto) [place] % (Auto) Eos % (Auto) Baso % (Auto) Lymph # (Auto) [place] # (Auto) Eos # (Auto) Baso # (Auto) Abs Immat Gran (auto) Absolute Neuts (auto) Absolute Nucleated RBC 0.020 H Nucleated RBC % (auto) 0.1 Neutrophils % (Manual) Band Neutrophils % Lymphocytes % (Manual) Monocytes % (Manual) Abs Neuts (Manual) Lymphocytes # (Manual) Monocytes # (Manual) Platelet Estimate Plt Morphology Comment RBC Morphology Acanthocytes (Spur) Smear Tech's Comments Smear Path Review PT INR APTT O2 Saturation ABG pH at Pt Temp ABG pH (Temp Correct) ABG pCO2 at Pt Temp ABG pCO2 (Temp Corrct ABG pO2 at Pt Temp ABG pO2 (Temp Correct ABG HCO3 ABG Base Excess (Actual) VBG pH 7.49 H VBG pCO2 39 VBG pO2 51 VBG HCO3 30 H VBG O2 Saturation 84.0 VBG Base Excess 6.5 Sodium Potassium Chloride Carbon Dioxide Anion Gap BUN Creatinine Estim Creat Clear Calc Estimated GFR POC Glucose 208 H Random Glucose Fasting Glucose Osmolality Lactic Acid Calcium Phosphorus Magnesium Total Bilirubin Direct Bilirubin AST ALT Alkaline Phosphatase Ammonia Troponin I High Sens B-Natriuretic Peptide Total Protein Albumin Procalcitonin TSH Random Cortisol Urine Color Urine Appearance Urine pH Ur Specific [place] Urine Protein Urine Glucose (UA) Urine Ketones Urine Blood Urine Nitrite Ur Leukocyte Esterase Urine RBC Urine WBC Ur Squamous Epith Cells Urine Bacteria Urine Mucus Urine Osmolality Ur Random Sodium Ur Random Potassium Ur Random Chloride Stool Occult Blood Stool Leukocytes, Qual Random Vancomycin Digoxin C. difficile Tox B Gene COVID-19 (JESSY) COVID-19 Clin Com Influenza Type A (PCR) Influenza Type B (PCR) RSV RNA Qual (PCR) SARS-CoV-2 RNA (RT-PCR) Blood Type Antibody Screen Crossmatch 12/08/21 12/08/21 12/08/21 15:41 16:31 16:31 WBC RBC Hgb Hct MCV MCH MCHC RDW Plt Count MPV Immature Gran % (Auto) Neut % (Auto) Lymph % (Auto) [place] % (Auto) Eos % (Auto) Baso % (Auto) Lymph # (Auto) [place] # (Auto) Eos # (Auto) Baso # (Auto) Abs Immat Gran (auto) Absolute Neuts (auto) Absolute Nucleated RBC Nucleated RBC % (auto) Neutrophils % (Manual) Band Neutrophils % Lymphocytes % (Manual) Monocytes % (Manual) Abs Neuts (Manual) Lymphocytes # (Manual) Monocytes # (Manual) Platelet Estimate Plt Morphology Comment RBC Morphology Acanthocytes (Spur) Smear Tech's Comments Smear Path Review PT INR APTT O2 Saturation ABG pH at Pt Temp ABG pH (Temp Correct) ABG pCO2 at Pt Temp ABG pCO2 (Temp Corrct ABG pO2 at Pt Temp ABG pO2 (Temp Correct ABG HCO3 ABG Base Excess (Actual) VBG pH VBG pCO2 VBG pO2 VBG HCO3 VBG O2 Saturation VBG Base Excess Sodium Potassium Chloride Carbon Dioxide Anion Gap BUN Creatinine Estim Creat Clear Calc Estimated GFR POC Glucose Random Glucose Fasting Glucose Osmolality Lactic Acid Calcium Phosphorus Magnesium Total Bilirubin Direct Bilirubin AST ALT Alkaline Phosphatase Ammonia Troponin I High Sens B-Natriuretic Peptide Total Protein Albumin Procalcitonin TSH Random Cortisol Urine Color Urine Appearance Urine pH Ur Specific [place] Urine Protein Urine Glucose (UA) Urine Ketones Urine Blood Urine Nitrite Ur Leukocyte Esterase Urine RBC Urine WBC Ur Squamous Epith Cells Urine Bacteria Urine Mucus Urine Osmolality Ur Random Sodium Ur Random Potassium Ur Random Chloride Stool Occult Blood POSITIVE Stool Leukocytes, Qual NEGATIVE Random Vancomycin Digoxin C. difficile Tox B Gene NEGATIVE COVID-19 (JESSY) COVID-19 Clin Com Influenza Type A (PCR) Influenza Type B (PCR) RSV RNA Qual (PCR) SARS-CoV-2 RNA (RT-PCR) Blood Type Antibody Screen Crossmatch 12/08/21 12/08/21 12/09/21 16:37 20:32 05:18 WBC RBC Hgb Hct MCV MCH MCHC RDW Plt Count MPV Immature Gran % (Auto) Neut % (Auto) Lymph % (Auto) [place] % (Auto) Eos % (Auto) Baso % (Auto) Lymph # (Auto) [place] # (Auto) Eos # (Auto) Baso # (Auto) Abs Immat Gran (auto) Absolute Neuts (auto) Absolute Nucleated RBC Nucleated RBC % (auto) Neutrophils % (Manual) Band Neutrophils % Lymphocytes % (Manual) Monocytes % (Manual) Abs Neuts (Manual) Lymphocytes # (Manual) Monocytes # (Manual) Platelet Estimate Plt Morphology Comment RBC Morphology Acanthocytes (Spur) Smear Tech's Comments Smear Path Review PT INR APTT O2 Saturation ABG pH at Pt Temp ABG pH (Temp Correct) ABG pCO2 at Pt Temp ABG pCO2 (Temp Corrct ABG pO2 at Pt Temp ABG pO2 (Temp Correct ABG HCO3 ABG Base Excess (Actual) VBG pH 7.45 H VBG pCO2 40 VBG pO2 42 VBG HCO3 28 H VBG O2 Saturation 69.0 VBG Base Excess 4.3 Sodium Potassium Chloride Carbon Dioxide Anion Gap BUN Creatinine Estim Creat Clear Calc Estimated GFR POC Glucose 174 H 220 H Random Glucose Fasting Glucose Osmolality Lactic Acid Calcium Phosphorus Magnesium Total Bilirubin Direct Bilirubin AST ALT Alkaline Phosphatase Ammonia Troponin I High Sens B-Natriuretic Peptide Total Protein Albumin Procalcitonin TSH Random Cortisol Urine Color Urine Appearance Urine pH Ur Specific [place] Urine Protein Urine Glucose (UA) Urine Ketones Urine Blood Urine Nitrite Ur Leukocyte Esterase Urine RBC Urine WBC Ur Squamous Epith Cells Urine Bacteria Urine Mucus Urine Osmolality Ur Random Sodium Ur Random Potassium Ur Random Chloride Stool Occult Blood Stool Leukocytes, Qual Random Vancomycin Digoxin C. difficile Tox B Gene COVID-19 (JESSY) COVID-19 Clin Com Influenza Type A (PCR) Influenza Type B (PCR) RSV RNA Qual (PCR) SARS-CoV-2 RNA (RT-PCR) Blood Type Antibody Screen Crossmatch 12/09/21 12/09/21 12/09/21 05:20 05:20 05:20 WBC 16.5 H RBC 3.73 L Hgb 7.0 L* Hct 25.2 L MCV 67.6 L MCH 18.8 L MCHC 27.8 L RDW 22.9 H Plt Count 164 MPV TNP Immature Gran % (Auto) Neut % (Auto) Lymph % (Auto) [place] % (Auto) Eos % (Auto) Baso % (Auto) Lymph # (Auto) [place] # (Auto) Eos # (Auto) Baso # (Auto) Abs Immat Gran (auto) Absolute Neuts (auto) Absolute Nucleated RBC 0.040 H Nucleated RBC % (auto) 0.2 Neutrophils % (Manual) Band Neutrophils % Lymphocytes % (Manual) Monocytes % (Manual) Abs Neuts (Manual) Lymphocytes # (Manual) Monocytes # (Manual) Platelet Estimate Plt Morphology Comment RBC Morphology Acanthocytes (Spur) Smear Tech's Comments Smear Path Review PT 22.5 H INR 2.0 H APTT O2 Saturation ABG pH at Pt Temp ABG pH (Temp Correct) ABG pCO2 at Pt Temp ABG pCO2 (Temp Corrct ABG pO2 at Pt Temp ABG pO2 (Temp Correct ABG HCO3 ABG Base Excess (Actual) VBG pH VBG pCO2 VBG pO2 VBG HCO3 VBG O2 Saturation VBG Base Excess Sodium 142 Potassium 3.1 L Chloride 106 Carbon Dioxide 29 Anion Gap 10 L BUN 29 H Creatinine 1.12 Estim Creat Clear Calc 76.2 Estimated GFR 48 POC Glucose Random Glucose 268 H Fasting Glucose Osmolality Lactic Acid Calcium 7.1 L Phosphorus 3.0 Magnesium 2.1 Total Bilirubin Direct Bilirubin AST ALT Alkaline Phosphatase Ammonia Troponin I High Sens B-Natriuretic Peptide Total Protein Albumin Procalcitonin TSH Random Cortisol Urine Color Urine Appearance Urine pH Ur Specific [place] Urine Protein Urine Glucose (UA) Urine Ketones Urine Blood Urine Nitrite Ur Leukocyte Esterase Urine RBC Urine WBC Ur Squamous Epith Cells Urine Bacteria Urine Mucus Urine Osmolality Ur Random Sodium Ur Random Potassium Ur Random Chloride Stool Occult Blood Stool Leukocytes, Qual Random Vancomycin Digoxin C. difficile Tox B Gene COVID-19 (JESSY) COVID-19 Clin Com Influenza Type A (PCR) Influenza Type B (PCR) RSV RNA Qual (PCR) SARS-CoV-2 RNA (RT-PCR) Blood Type Antibody Screen Crossmatch 12/09/21 12/09/21 12/09/21 05:20 06:46 07:14 WBC RBC Hgb Hct MCV MCH MCHC RDW Plt Count MPV Immature Gran % (Auto) Neut % (Auto) Lymph % (Auto) [place] % (Auto) Eos % (Auto) Baso % (Auto) Lymph # (Auto) [place] # (Auto) Eos # (Auto) Baso # (Auto) Abs Immat Gran (auto) Absolute Neuts (auto) Absolute Nucleated RBC Nucleated RBC % (auto) Neutrophils % (Manual) Band Neutrophils % Lymphocytes % (Manual) Monocytes % (Manual) Abs Neuts (Manual) Lymphocytes # (Manual) Monocytes # (Manual) Platelet Estimate Plt Morphology Comment RBC Morphology Acanthocytes (Spur) Smear Tech's Comments Smear Path Review PT INR APTT O2 Saturation ABG pH at Pt Temp ABG pH (Temp Correct) ABG pCO2 at Pt Temp ABG pCO2 (Temp Corrct ABG pO2 at Pt Temp ABG pO2 (Temp Correct ABG HCO3 ABG Base Excess (Actual) VBG pH VBG pCO2 VBG pO2 VBG HCO3 VBG O2 Saturation VBG Base Excess Sodium Potassium Chloride Carbon Dioxide Anion Gap BUN Creatinine Estim Creat Clear Calc Estimated GFR POC Glucose 255 H Random Glucose Fasting Glucose Osmolality Lactic Acid Calcium Phosphorus Magnesium Total Bilirubin Direct Bilirubin AST ALT Alkaline Phosphatase Ammonia Troponin I High Sens B-Natriuretic Peptide Total Protein Albumin Procalcitonin 0.15 TSH Random Cortisol Urine Color Urine Appearance Urine pH Ur Specific [place] Urine Protein Urine Glucose (UA) Urine Ketones Urine Blood Urine Nitrite Ur Leukocyte Esterase Urine RBC Urine WBC Ur Squamous Epith Cells Urine Bacteria Urine Mucus Urine Osmolality Ur Random Sodium Ur Random Potassium Ur Random Chloride Stool Occult Blood Stool Leukocytes, Qual Random Vancomycin Digoxin C. difficile Tox B Gene COVID-19 (JESSY) COVID-19 Clin Com Influenza Type A (PCR) Influenza Type B (PCR) RSV RNA Qual (PCR) SARS-CoV-2 RNA (RT-PCR) Blood Type A Positive Antibody Screen NEGATIVE Crossmatch See Detail 12/09/21 12/09/21 12/09/21 11:32 16:12 21:05 WBC RBC Hgb Hct MCV MCH MCHC RDW Plt Count MPV Immature Gran % (Auto) Neut % (Auto) Lymph % (Auto) [place] % (Auto) Eos % (Auto) Baso % (Auto) Lymph # (Auto) [place] # (Auto) Eos # (Auto) Baso # (Auto) Abs Immat Gran (auto) Absolute Neuts (auto) Absolute Nucleated RBC Nucleated RBC % (auto) Neutrophils % (Manual) Band Neutrophils % Lymphocytes % (Manual) Monocytes % (Manual) Abs Neuts (Manual) Lymphocytes # (Manual) Monocytes # (Manual) Platelet Estimate Plt Morphology Comment RBC Morphology Acanthocytes (Spur) Smear Tech's Comments Smear Path Review PT INR APTT O2 Saturation ABG pH at Pt Temp ABG pH (Temp Correct) ABG pCO2 at Pt Temp ABG pCO2 (Temp Corrct ABG pO2 at Pt Temp ABG pO2 (Temp Correct ABG HCO3 ABG Base Excess (Actual) VBG pH VBG pCO2 VBG pO2 VBG HCO3 VBG O2 Saturation VBG Base Excess Sodium Potassium Chloride Carbon Dioxide Anion Gap BUN Creatinine Estim Creat Clear Calc Estimated GFR POC Glucose 233 H 182 H 220 H Random Glucose Fasting Glucose Osmolality Lactic Acid Calcium Phosphorus Magnesium Total Bilirubin Direct Bilirubin AST ALT Alkaline Phosphatase Ammonia Troponin I High Sens B-Natriuretic Peptide Total Protein Albumin Procalcitonin TSH Random Cortisol Urine Color Urine Appearance Urine pH Ur Specific [place] Urine Protein Urine Glucose (UA) Urine Ketones Urine Blood Urine Nitrite Ur Leukocyte Esterase Urine RBC Urine WBC Ur Squamous Epith Cells Urine Bacteria Urine Mucus Urine Osmolality Ur Random Sodium Ur Random Potassium Ur Random Chloride Stool Occult Blood Stool Leukocytes, Qual Random Vancomycin Digoxin C. difficile Tox B Gene COVID-19 (JESSY) COVID-19 Clin Com Influenza Type A (PCR) Influenza Type B (PCR) RSV RNA Qual (PCR) SARS-CoV-2 RNA (RT-PCR) Blood Type Antibody Screen Crossmatch 12/10/21 12/10/21 12/10/21 05:09 05:30 05:30 WBC 16.6 H RBC 4.61 D Hgb 9.6 L D Hct 32.2 L D MCV 69.8 L MCH 20.8 L MCHC 29.8 L RDW 25.6 H Plt Count 173 MPV TNP Immature Gran % (Auto) Neut % (Auto) Lymph % (Auto) [place] % (Auto) Eos % (Auto) Baso % (Auto) Lymph # (Auto) [place] # (Auto) Eos # (Auto) Baso # (Auto) Abs Immat Gran (auto) Absolute Neuts (auto) Absolute Nucleated RBC 0.090 H Nucleated RBC % (auto) 0.5 H Neutrophils % (Manual) Band Neutrophils % Lymphocytes % (Manual) Monocytes % (Manual) Abs Neuts (Manual) Lymphocytes # (Manual) Monocytes # (Manual) Platelet Estimate Plt Morphology Comment RBC Morphology Acanthocytes (Spur) Smear Tech's Comments Smear Path Review PT INR APTT O2 Saturation ABG pH at Pt Temp ABG pH (Temp Correct) ABG pCO2 at Pt Temp ABG pCO2 (Temp Corrct ABG pO2 at Pt Temp ABG pO2 (Temp Correct ABG HCO3 ABG Base Excess (Actual) VBG pH VBG pCO2 VBG pO2 VBG HCO3 VBG O2 Saturation VBG Base Excess Sodium 143 Potassium 3.0 L Chloride 109 H Carbon Dioxide 25 Anion Gap 12 BUN 18 H Creatinine 0.89 Estim Creat Clear Calc 98.6 Estimated GFR > 60 POC Glucose 193 H Random Glucose 195 H Fasting Glucose Osmolality Lactic Acid Calcium 7.6 L D Phosphorus 2.3 L Magnesium 2.0 Total Bilirubin Direct Bilirubin AST ALT Alkaline Phosphatase Ammonia Troponin I High Sens B-Natriuretic Peptide Total Protein Albumin Procalcitonin TSH Random Cortisol Urine Color Urine Appearance Urine pH Ur Specific [place] Urine Protein Urine Glucose (UA) Urine Ketones Urine Blood Urine Nitrite Ur Leukocyte Esterase Urine RBC Urine WBC Ur Squamous Epith Cells Urine Bacteria Urine Mucus Urine Osmolality Ur Random Sodium Ur Random Potassium Ur Random Chloride Stool Occult Blood Stool Leukocytes, Qual Random Vancomycin Digoxin C. difficile Tox B Gene COVID-19 (JESSY) COVID-19 Clin Com Influenza Type A (PCR) Influenza Type B (PCR) RSV RNA Qual (PCR) SARS-CoV-2 RNA (RT-PCR) Blood Type Antibody Screen Crossmatch 12/10/21 12/10/21 12/10/21 05:37 07:23 11:22 WBC RBC Hgb Hct MCV MCH MCHC RDW Plt Count MPV Immature Gran % (Auto) Neut % (Auto) Lymph % (Auto) [place] % (Auto) Eos % (Auto) Baso % (Auto) Lymph # (Auto) [place] # (Auto) Eos # (Auto) Baso # (Auto) Abs Immat Gran (auto) Absolute Neuts (auto) Absolute Nucleated RBC Nucleated RBC % (auto) Neutrophils % (Manual) Band Neutrophils % Lymphocytes % (Manual) Monocytes % (Manual) Abs Neuts (Manual) Lymphocytes # (Manual) Monocytes # (Manual) Platelet Estimate Plt Morphology Comment RBC Morphology Acanthocytes (Spur) Smear Tech's Comments Smear Path Review PT INR APTT O2 Saturation ABG pH at Pt Temp ABG pH (Temp Correct) ABG pCO2 at Pt Temp ABG pCO2 (Temp Corrct ABG pO2 at Pt Temp ABG pO2 (Temp Correct ABG HCO3 ABG Base Excess (Actual) VBG pH 7.49 H VBG pCO2 34 VBG pO2 41 VBG HCO3 26 VBG O2 Saturation 70.0 VBG Base Excess 3.4 Sodium Potassium Chloride Carbon Dioxide Anion Gap BUN Creatinine Estim Creat Clear Calc Estimated GFR POC Glucose 194 H 173 H Random Glucose Fasting Glucose Osmolality Lactic Acid Calcium Phosphorus Magnesium Total Bilirubin Direct Bilirubin AST ALT Alkaline Phosphatase Ammonia Troponin I High Sens B-Natriuretic Peptide Total Protein Albumin Procalcitonin TSH Random Cortisol Urine Color Urine Appearance Urine pH Ur Specific [place] Urine Protein Urine Glucose (UA) Urine Ketones Urine Blood Urine Nitrite Ur Leukocyte Esterase Urine RBC Urine WBC Ur Squamous Epith Cells Urine Bacteria Urine Mucus Urine Osmolality Ur Random Sodium Ur Random Potassium Ur Random Chloride Stool Occult Blood Stool Leukocytes, Qual Random Vancomycin Digoxin C. difficile Tox B Gene COVID-19 (JESSY) COVID-19 Clin Com Influenza Type A (PCR) Influenza Type B (PCR) RSV RNA Qual (PCR) SARS-CoV-2 RNA (RT-PCR) Blood Type Antibody Screen Crossmatch 12/10/21 12/10/21 12/10/21 15:53 16:14 17:46 WBC RBC Hgb Hct MCV MCH MCHC RDW Plt Count MPV Immature Gran % (Auto) Neut % (Auto) Lymph % (Auto) [place] % (Auto) Eos % (Auto) Baso % (Auto) Lymph # (Auto) [place] # (Auto) Eos # (Auto) Baso # (Auto) Abs Immat Gran (auto) Absolute Neuts (auto) Absolute Nucleated RBC Nucleated RBC % (auto) Neutrophils % (Manual) Band Neutrophils % Lymphocytes % (Manual) Monocytes % (Manual) Abs Neuts (Manual) Lymphocytes # (Manual) Monocytes # (Manual) Platelet Estimate Plt Morphology Comment RBC Morphology Acanthocytes (Spur) Smear Tech's Comments Smear Path Review PT INR APTT O2 Saturation ABG pH at Pt Temp ABG pH (Temp Correct) ABG pCO2 at Pt Temp ABG pCO2 (Temp Corrct ABG pO2 at Pt Temp ABG pO2 (Temp Correct ABG HCO3 ABG Base Excess (Actual) VBG pH VBG pCO2 VBG pO2 VBG HCO3 VBG O2 Saturation VBG Base Excess Sodium 144 Potassium 3.8 D Chloride 111 H Carbon Dioxide 26 Anion Gap 11 L BUN 17 H Creatinine 0.92 Estim Creat Clear Calc 95.4 Estimated GFR > 60 POC Glucose 140 H Random Glucose 134 H Fasting Glucose Osmolality Lactic Acid Calcium 7.6 L Phosphorus 2.3 L Magnesium 2.5 Total Bilirubin Direct Bilirubin AST ALT Alkaline Phosphatase Ammonia Troponin I High Sens B-Natriuretic Peptide Total Protein Albumin Procalcitonin TSH Random Cortisol Urine Color Urine Appearance Urine pH Ur Specific [place] Urine Protein Urine Glucose (UA) Urine Ketones Urine Blood Urine Nitrite Ur Leukocyte Esterase Urine RBC Urine WBC Ur Squamous Epith Cells Urine Bacteria Urine Mucus Urine Osmolality Ur Random Sodium Ur Random Potassium Ur Random Chloride Stool Occult Blood Stool Leukocytes, Qual Random Vancomycin 10.1 L Digoxin C. difficile Tox B Gene COVID-19 (JESSY) COVID-19 Clin Com Influenza Type A (PCR) Influenza Type B (PCR) RSV RNA Qual (PCR) SARS-CoV-2 RNA (RT-PCR) Blood Type Antibody Screen Crossmatch 12/10/21 12/11/21 12/11/21 21:36 01:30 06:30 WBC 13.4 H RBC 4.14 L Hgb 8.6 L Hct 29.2 L MCV 70.5 L MCH 20.8 L MCHC 29.5 L RDW 26.3 H Plt Count 200 MPV Not Reportable Immature Gran % (Auto) 1.0 H Neut % (Auto) 82.8 H Lymph % (Auto) 9.7 L [place] % (Auto) 5.5 Eos % (Auto) 0.9 Baso % (Auto) 0.1 Lymph # (Auto) 1.3 Bradley # (Auto) 0.7 Eos # (Auto) 0.1 Baso # (Auto) 0.0 Abs Immat Gran (auto) 0.13 H Absolute Neuts (auto) 11.1 H Absolute Nucleated RBC 0.020 H Nucleated RBC % (auto) 0.1 Neutrophils % (Manual) Band Neutrophils % Lymphocytes % (Manual) Monocytes % (Manual) Abs Neuts (Manual) Lymphocytes # (Manual) Monocytes # (Manual) Platelet Estimate Plt Morphology Comment RBC Morphology Acanthocytes (Spur) Smear Tech's Comments VERIFIED Smear Path Review PT INR APTT O2 Saturation ABG pH at Pt Temp ABG pH (Temp Correct) ABG pCO2 at Pt Temp ABG pCO2 (Temp Corrct ABG pO2 at Pt Temp ABG pO2 (Temp Correct ABG HCO3 ABG Base Excess (Actual) VBG pH VBG pCO2 VBG pO2 VBG HCO3 VBG O2 Saturation VBG Base Excess Sodium Potassium Chloride Carbon Dioxide Anion Gap BUN Creatinine Estim Creat Clear Calc Estimated GFR POC Glucose 117 H Random Glucose Fasting Glucose Osmolality Lactic Acid Calcium Phosphorus Magnesium Total Bilirubin Direct Bilirubin AST ALT Alkaline Phosphatase Ammonia Troponin I High Sens B-Natriuretic Peptide Total Protein Albumin Procalcitonin TSH Random Cortisol Urine Color YELLOW Urine Appearance CLEAR Urine pH 6.0 Ur Specific [place] 1.015 Urine Protein NEG Urine Glucose (UA) NEG Urine Ketones NEG Urine Blood 1+ H Urine Nitrite NEG Ur Leukocyte Esterase NEG Urine RBC 5-9 H Urine WBC 1-4 Ur Squamous Epith Cells 1+ Urine Bacteria 1+ Urine Mucus Urine Osmolality Ur Random Sodium Ur Random Potassium Ur Random Chloride Stool Occult Blood Stool Leukocytes, Qual Random Vancomycin Digoxin C. difficile Tox B Gene COVID-19 (JESSY) COVID-19 Clin Com Influenza Type A (PCR) Influenza Type B (PCR) RSV RNA Qual (PCR) SARS-CoV-2 RNA (RT-PCR) Blood Type Antibody Screen Crossmatch 12/11/21 12/11/21 12/11/21 06:30 06:30 07:10 WBC RBC Hgb Hct MCV MCH MCHC RDW Plt Count MPV Immature Gran % (Auto) Neut % (Auto) Lymph % (Auto) [place] % (Auto) Eos % (Auto) Baso % (Auto) Lymph # (Auto) [place] # (Auto) Eos # (Auto) Baso # (Auto) Abs Immat Gran (auto) Absolute Neuts (auto) Absolute Nucleated RBC Nucleated RBC % (auto) Neutrophils % (Manual) Band Neutrophils % Lymphocytes % (Manual) Monocytes % (Manual) Abs Neuts (Manual) Lymphocytes # (Manual) Monocytes # (Manual) Platelet Estimate Plt Morphology Comment RBC Morphology Acanthocytes (Spur) Smear Tech's Comments Smear Path Review PT INR APTT O2 Saturation ABG pH at Pt Temp ABG pH (Temp Correct) ABG pCO2 at Pt Temp ABG pCO2 (Temp Corrct ABG pO2 at Pt Temp ABG pO2 (Temp Correct ABG HCO3 ABG Base Excess (Actual) VBG pH 7.46 H VBG pCO2 36 VBG pO2 34 VBG HCO3 26 VBG O2 Saturation 55.0 VBG Base Excess 2.9 Sodium 143 Potassium 3.6 Chloride 110 H Carbon Dioxide 26 Anion Gap 11 L BUN 17 H Creatinine 0.88 Estim Creat Clear Calc 98.8 Estimated GFR > 60 POC Glucose 91 Random Glucose 95 Fasting Glucose Osmolality Lactic Acid Calcium 7.4 L Phosphorus Magnesium Total Bilirubin 0.8 Direct Bilirubin AST 29 D ALT 19 Alkaline Phosphatase 52 Ammonia Troponin I High Sens B-Natriuretic Peptide Total Protein 4.7 L Albumin 2.5 L Procalcitonin TSH Random Cortisol Urine Color Urine Appearance Urine pH Ur Specific [place] Urine Protein Urine Glucose (UA) Urine Ketones Urine Blood Urine Nitrite Ur Leukocyte Esterase Urine RBC Urine WBC Ur Squamous Epith Cells Urine Bacteria Urine Mucus Urine Osmolality Ur Random Sodium Ur Random Potassium Ur Random Chloride Stool Occult Blood Stool Leukocytes, Qual Random Vancomycin Digoxin C. difficile Tox B Gene COVID-19 (JESSY) COVID-19 Clin Com Influenza Type A (PCR) Influenza Type B (PCR) RSV RNA Qual (PCR) SARS-CoV-2 RNA (RT-PCR) Blood Type Antibody Screen Crossmatch 12/11/21 12/11/21 12/11/21 11:28 16:29 19:09 WBC RBC Hgb Hct MCV MCH MCHC RDW Plt Count MPV Immature Gran % (Auto) Neut % (Auto) Lymph % (Auto) [place] % (Auto) Eos % (Auto) Baso % (Auto) Lymph # (Auto) [place] # (Auto) Eos # (Auto) Baso # (Auto) Abs Immat Gran (auto) Absolute Neuts (auto) Absolute Nucleated RBC Nucleated RBC % (auto) Neutrophils % (Manual) Band Neutrophils % Lymphocytes % (Manual) Monocytes % (Manual) Abs Neuts (Manual) Lymphocytes # (Manual) Monocytes # (Manual) Platelet Estimate Plt Morphology Comment RBC Morphology Acanthocytes (Spur) Smear Tech's Comments Smear Path Review PT INR APTT O2 Saturation ABG pH at Pt Temp ABG pH (Temp Correct) ABG pCO2 at Pt Temp ABG pCO2 (Temp Corrct ABG pO2 at Pt Temp ABG pO2 (Temp Correct ABG HCO3 ABG Base Excess (Actual) VBG pH VBG pCO2 VBG pO2 VBG HCO3 VBG O2 Saturation VBG Base Excess Sodium Potassium Chloride Carbon Dioxide Anion Gap BUN Creatinine Estim Creat Clear Calc Estimated GFR POC Glucose 148 H 191 H Random Glucose Fasting Glucose Osmolality Lactic Acid Calcium Phosphorus Magnesium Total Bilirubin Direct Bilirubin AST ALT Alkaline Phosphatase Ammonia Troponin I High Sens B-Natriuretic Peptide Total Protein Albumin Procalcitonin TSH Random Cortisol Urine Color Urine Appearance Urine pH Ur Specific [place] Urine Protein Urine Glucose (UA) Urine Ketones Urine Blood Urine Nitrite Ur Leukocyte Esterase Urine RBC Urine WBC Ur Squamous Epith Cells Urine Bacteria Urine Mucus Urine Osmolality Ur Random Sodium Ur Random Potassium Ur Random Chloride Stool Occult Blood Stool Leukocytes, Qual Random Vancomycin Digoxin C. difficile Tox B Gene COVID-19 (JESSY) COVID-19 Clin Com Influenza Type A (PCR) NEGATIVE Influenza Type B (PCR) NEGATIVE RSV RNA Qual (PCR) NEGATIVE SARS-CoV-2 RNA (RT-PCR) NEGATIVE Blood Type Antibody Screen Crossmatch 12/11/21 12/11/21 12/12/21 19:58 21:37 02:35 WBC RBC Hgb Hct MCV MCH MCHC RDW Plt Count MPV Immature Gran % (Auto) Neut % (Auto) Lymph % (Auto) [place] % (Auto) Eos % (Auto) Baso % (Auto) Lymph # (Auto) [place] # (Auto) Eos # (Auto) Baso # (Auto) Abs Immat Gran (auto) Absolute Neuts (auto) Absolute Nucleated RBC Nucleated RBC % (auto) Neutrophils % (Manual) Band Neutrophils % Lymphocytes % (Manual) Monocytes % (Manual) Abs Neuts (Manual) Lymphocytes # (Manual) Monocytes # (Manual) Platelet Estimate Plt Morphology Comment RBC Morphology Acanthocytes (Spur) Smear Tech's Comments Smear Path Review PT INR APTT O2 Saturation ABG pH at Pt Temp ABG pH (Temp Correct) ABG pCO2 at Pt Temp ABG pCO2 (Temp Corrct ABG pO2 at Pt Temp ABG pO2 (Temp Correct ABG HCO3 ABG Base Excess (Actual) VBG pH VBG pCO2 VBG pO2 VBG HCO3 VBG O2 Saturation VBG Base Excess Sodium Potassium Chloride Carbon Dioxide Anion Gap BUN Creatinine Estim Creat Clear Calc Estimated GFR POC Glucose 184 H Random Glucose Fasting Glucose Osmolality Lactic Acid 0.9 Calcium Phosphorus Magnesium Total Bilirubin Direct Bilirubin AST ALT Alkaline Phosphatase Ammonia Troponin I High Sens B-Natriuretic Peptide Total Protein Albumin Procalcitonin TSH Random Cortisol Urine Color Urine Appearance Urine pH Ur Specific [place] Urine Protein Urine Glucose (UA) Urine Ketones Urine Blood Urine Nitrite Ur Leukocyte Esterase Urine RBC Urine WBC Ur Squamous Epith Cells Urine Bacteria Urine Mucus Urine Osmolality Ur Random Sodium Ur Random Potassium Ur Random Chloride Stool Occult Blood POSITIVE Stool Leukocytes, Qual Random Vancomycin Digoxin C. difficile Tox B Gene COVID-19 (EJSSY) COVID-19 Clin Com Influenza Type A (PCR) Influenza Type B (PCR) RSV RNA Qual (PCR) SARS-CoV-2 RNA (RT-PCR) Blood Type Antibody Screen Crossmatch 12/12/21 12/12/21 12/12/21 05:20 05:20 05:24 WBC 17.2 H RBC 4.37 Hgb 9.2 L Hct 30.9 L MCV 70.7 L MCH 21.1 L MCHC 29.8 L RDW 27.7 H Plt Count Not Reportable MPV Not Reportable Immature Gran % (Auto) 1.0 H Neut % (Auto) 86.2 H Lymph % (Auto) 6.9 L [place] % (Auto) 4.6 Eos % (Auto) 1.0 Baso % (Auto) 0.3 Lymph # (Auto) 1.2 [place] # (Auto) 0.8 Eos # (Auto) 0.2 Baso # (Auto) 0.1 Abs Immat Gran (auto) 0.17 H Absolute Neuts (auto) 14.8 H Absolute Nucleated RBC 0.030 H Nucleated RBC % (auto) 0.2 Neutrophils % (Manual) Band Neutrophils % Lymphocytes % (Manual) Monocytes % (Manual) Abs Neuts (Manual) Lymphocytes # (Manual) Monocytes # (Manual) Platelet Estimate Plt Morphology Comment RBC Morphology Acanthocytes (Spur) Smear Tech's Comments VERIFIED Smear Path Review PT INR APTT O2 Saturation ABG pH at Pt Temp ABG pH (Temp Correct) ABG pCO2 at Pt Temp ABG pCO2 (Temp Corrct ABG pO2 at Pt Temp ABG pO2 (Temp Correct ABG HCO3 ABG Base Excess (Actual) VBG pH 7.46 H VBG pCO2 36 VBG pO2 37 VBG HCO3 25 VBG O2 Saturation 59.0 VBG Base Excess 2.1 Sodium 137 Potassium 4.0 Chloride 102 Carbon Dioxide 25 Anion Gap 14 BUN 19 H Creatinine 0.96 Estim Creat Clear Calc 90.5 Estimated GFR 58 POC Glucose Random Glucose 233 H Fasting Glucose Osmolality Lactic Acid Calcium 7.8 L Phosphorus 3.5 Magnesium 2.0 Total Bilirubin 0.8 Direct Bilirubin AST 25 ALT 23 Alkaline Phosphatase 60 Ammonia Troponin I High Sens B-Natriuretic Peptide Total Protein 5.3 L Albumin 2.7 L Procalcitonin TSH Random Cortisol Urine Color Urine Appearance Urine pH Ur Specific [place] Urine Protein Urine Glucose (UA) Urine Ketones Urine Blood Urine Nitrite Ur Leukocyte Esterase Urine RBC Urine WBC Ur Squamous Epith Cells Urine Bacteria Urine Mucus Urine Osmolality Ur Random Sodium Ur Random Potassium Ur Random Chloride Stool Occult Blood Stool Leukocytes, Qual Random Vancomycin Digoxin C. difficile Tox B Gene COVID-19 (JESSY) COVID-19 Clin Com Influenza Type A (PCR) Influenza Type B (PCR) RSV RNA Qual (PCR) SARS-CoV-2 RNA (RT-PCR) Blood Type Antibody Screen Crossmatch 12/12/21 12/12/21 12/12/21 07:28 11:11 16:17 WBC RBC Hgb Hct MCV MCH MCHC RDW Plt Count MPV Immature Gran % (Auto) Neut % (Auto) Lymph % (Auto) [place] % (Auto) Eos % (Auto) Baso % (Auto) Lymph # (Auto) [place] # (Auto) Eos # (Auto) Baso # (Auto) Abs Immat Gran (auto) Absolute Neuts (auto) Absolute Nucleated RBC Nucleated RBC % (auto) Neutrophils % (Manual) Band Neutrophils % Lymphocytes % (Manual) Monocytes % (Manual) Abs Neuts (Manual) Lymphocytes # (Manual) Monocytes # (Manual) Platelet Estimate Plt Morphology Comment RBC Morphology Acanthocytes (Spur) Smear Tech's Comments Smear Path Review PT INR APTT O2 Saturation ABG pH at Pt Temp ABG pH (Temp Correct) ABG pCO2 at Pt Temp ABG pCO2 (Temp Corrct ABG pO2 at Pt Temp ABG pO2 (Temp Correct ABG HCO3 ABG Base Excess (Actual) VBG pH VBG pCO2 VBG pO2 VBG HCO3 VBG O2 Saturation VBG Base Excess Sodium Potassium Chloride Carbon Dioxide Anion Gap BUN Creatinine Estim Creat Clear Calc Estimated GFR POC Glucose 219 H 211 H 126 H Random Glucose Fasting Glucose Osmolality Lactic Acid Calcium Phosphorus Magnesium Total Bilirubin Direct Bilirubin AST ALT Alkaline Phosphatase Ammonia Troponin I High Sens B-Natriuretic Peptide Total Protein Albumin Procalcitonin TSH Random Cortisol Urine Color Urine Appearance Urine pH Ur Specific [place] Urine Protein Urine Glucose (UA) Urine Ketones Urine Blood Urine Nitrite Ur Leukocyte Esterase Urine RBC Urine WBC Ur Squamous Epith Cells Urine Bacteria Urine Mucus Urine Osmolality Ur Random Sodium Ur Random Potassium Ur Random Chloride Stool Occult Blood Stool Leukocytes, Qual Random Vancomycin Digoxin C. difficile Tox B Gene COVID-19 (JESSY) COVID-19 Clin Com Influenza Type A (PCR) Influenza Type B (PCR) RSV RNA Qual (PCR) SARS-CoV-2 RNA (RT-PCR) Blood Type Antibody Screen Crossmatch 12/12/21 12/13/21 12/13/21 20:46 05:20 05:20 WBC 14.9 H RBC 4.04 L Hgb 8.5 L Hct 29.1 L MCV 72.0 L MCH 21.0 L MCHC 29.2 L RDW 27.8 H Plt Count 325 D MPV 11.2 Immature Gran % (Auto) 0.7 H Neut % (Auto) 86.0 H Lymph % (Auto) 5.6 L [place] % (Auto) 6.3 Eos % (Auto) 1.1 Baso % (Auto) 0.3 Lymph # (Auto) 0.8 L [place] # (Auto) 0.9 Eos # (Auto) 0.2 Baso # (Auto) 0.0 Abs Immat Gran (auto) 0.11 H Absolute Neuts (auto) 12.8 H Absolute Nucleated RBC 0.000 Nucleated RBC % (auto) 0.0 Neutrophils % (Manual) Band Neutrophils % Lymphocytes % (Manual) Monocytes % (Manual) Abs Neuts (Manual) Lymphocytes # (Manual) Monocytes # (Manual) Platelet Estimate Plt Morphology Comment RBC Morphology Acanthocytes (Spur) Smear Tech's Comments Smear Path Review PT INR APTT O2 Saturation ABG pH at Pt Temp ABG pH (Temp Correct) ABG pCO2 at Pt Temp ABG pCO2 (Temp Corrct ABG pO2 at Pt Temp ABG pO2 (Temp Correct ABG HCO3 ABG Base Excess (Actual) VBG pH VBG pCO2 VBG pO2 VBG HCO3 VBG O2 Saturation VBG Base Excess Sodium 141 Potassium 3.1 L D Chloride 103 Carbon Dioxide 27 Anion Gap 14 BUN 18 H Creatinine 0.96 Estim Creat Clear Calc 88.3 Estimated GFR 58 POC Glucose 65 Random Glucose 60 Fasting Glucose Osmolality Lactic Acid Calcium 7.9 L Phosphorus 4.4 Magnesium Total Bilirubin 0.7 Direct Bilirubin AST 36 H D ALT 25 Alkaline Phosphatase 60 Ammonia Troponin I High Sens B-Natriuretic Peptide Total Protein 5.2 L Albumin 2.7 L Procalcitonin TSH Random Cortisol Urine Color Urine Appearance Urine pH Ur Specific [place] Urine Protein Urine Glucose (UA) Urine Ketones Urine Blood Urine Nitrite Ur Leukocyte Esterase Urine RBC Urine WBC Ur Squamous Epith Cells Urine Bacteria Urine Mucus Urine Osmolality Ur Random Sodium Ur Random Potassium Ur Random Chloride Stool Occult Blood Stool Leukocytes, Qual Random Vancomycin Digoxin C. difficile Tox B Gene COVID-19 (JESSY) COVID-19 Clin Com Influenza Type A (PCR) Influenza Type B (PCR) RSV RNA Qual (PCR) SARS-CoV-2 RNA (RT-PCR) Blood Type Antibody Screen Crossmatch 12/13/21 12/13/21 12/13/21 05:23 07:40 08:30 WBC RBC Hgb Hct MCV MCH MCHC RDW Plt Count MPV Immature Gran % (Auto) Neut % (Auto) Lymph % (Auto) [place] % (Auto) Eos % (Auto) Baso % (Auto) Lymph # (Auto) [place] # (Auto) Eos # (Auto) Baso # (Auto) Abs Immat Gran (auto) Absolute Neuts (auto) Absolute Nucleated RBC Nucleated RBC % (auto) Neutrophils % (Manual) Band Neutrophils % Lymphocytes % (Manual) Monocytes % (Manual) Abs Neuts (Manual) Lymphocytes # (Manual) Monocytes # (Manual) Platelet Estimate Plt Morphology Comment RBC Morphology Acanthocytes (Spur) Smear Tech's Comments Smear Path Review PT INR APTT O2 Saturation ABG pH at Pt Temp ABG pH (Temp Correct) ABG pCO2 at Pt Temp ABG pCO2 (Temp Corrct ABG pO2 at Pt Temp ABG pO2 (Temp Correct ABG HCO3 ABG Base Excess (Actual) VBG pH 7.38 VBG pCO2 51 VBG pO2 42 VBG HCO3 30 H VBG O2 Saturation 66.0 VBG Base Excess 4.8 Sodium Potassium Chloride Carbon Dioxide Anion Gap BUN Creatinine Estim Creat Clear Calc Estimated GFR POC Glucose 57 L* 122 H Random Glucose Fasting Glucose Osmolality Lactic Acid Calcium Phosphorus Magnesium Total Bilirubin Direct Bilirubin AST ALT Alkaline Phosphatase Ammonia Troponin I High Sens B-Natriuretic Peptide Total Protein Albumin Procalcitonin TSH Random Cortisol Urine Color Urine Appearance Urine pH Ur Specific [place] Urine Protein Urine Glucose (UA) Urine Ketones Urine Blood Urine Nitrite Ur Leukocyte Esterase Urine RBC Urine WBC Ur Squamous Epith Cells Urine Bacteria Urine Mucus Urine Osmolality Ur Random Sodium Ur Random Potassium Ur Random Chloride Stool Occult Blood Stool Leukocytes, Qual Random Vancomycin Digoxin C. difficile Tox B Gene COVID-19 (JESSY) COVID-19 Clin Com Influenza Type A (PCR) Influenza Type B (PCR) RSV RNA Qual (PCR) SARS-CoV-2 RNA (RT-PCR) Blood Type Antibody Screen Crossmatch 12/13/21 12/13/21 12/13/21 11:44 16:22 16:43 WBC RBC Hgb Hct MCV MCH MCHC RDW Plt Count MPV Immature Gran % (Auto) Neut % (Auto) Lymph % (Auto) [place] % (Auto) Eos % (Auto) Baso % (Auto) Lymph # (Auto) [place] # (Auto) Eos # (Auto) Baso # (Auto) Abs Immat Gran (auto) Absolute Neuts (auto) Absolute Nucleated RBC Nucleated RBC % (auto) Neutrophils % (Manual) Band Neutrophils % Lymphocytes % (Manual) Monocytes % (Manual) Abs Neuts (Manual) Lymphocytes # (Manual) Monocytes # (Manual) Platelet Estimate Plt Morphology Comment RBC Morphology Acanthocytes (Spur) Smear Tech's Comments Smear Path Review PT INR APTT O2 Saturation ABG pH at Pt Temp ABG pH (Temp Correct) ABG pCO2 at Pt Temp ABG pCO2 (Temp Corrct ABG pO2 at Pt Temp ABG pO2 (Temp Correct ABG HCO3 ABG Base Excess (Actual) VBG pH VBG pCO2 VBG pO2 VBG HCO3 VBG O2 Saturation VBG Base Excess Sodium Potassium Chloride Carbon Dioxide Anion Gap BUN Creatinine Estim Creat Clear Calc Estimated GFR POC Glucose 85 57 L* 82 Random Glucose Fasting Glucose Osmolality Lactic Acid Calcium Phosphorus Magnesium Total Bilirubin Direct Bilirubin AST ALT Alkaline Phosphatase Ammonia Troponin I High Sens B-Natriuretic Peptide Total Protein Albumin Procalcitonin TSH Random Cortisol Urine Color Urine Appearance Urine pH Ur Specific [place] Urine Protein Urine Glucose (UA) Urine Ketones Urine Blood Urine Nitrite Ur Leukocyte Esterase Urine RBC Urine WBC Ur Squamous Epith Cells Urine Bacteria Urine Mucus Urine Osmolality Ur Random Sodium Ur Random Potassium Ur Random Chloride Stool Occult Blood Stool Leukocytes, Qual Random Vancomycin Digoxin C. difficile Tox B Gene COVID-19 (JESSY) COVID-19 Clin Com Influenza Type A (PCR) Influenza Type B (PCR) RSV RNA Qual (PCR) SARS-CoV-2 RNA (RT-PCR) Blood Type Antibody Screen Crossmatch 12/13/21 12/13/21 12/14/21 17:44 20:49 04:48 WBC 10.3 RBC 3.89 L Hgb 8.2 L Hct 28.0 L MCV 72.0 L MCH 21.1 L MCHC 29.3 L RDW 27.8 H Plt Count 420 H D MPV 10.8 Immature Gran % (Auto) 0.8 H Neut % (Auto) 83.2 H Lymph % (Auto) 6.7 L [place] % (Auto) 7.8 Eos % (Auto) 1.3 Baso % (Auto) 0.2 Lymph # (Auto) 0.7 L [place] # (Auto) 0.8 Eos # (Auto) 0.1 Baso # (Auto) 0.0 Abs Immat Gran (auto) 0.08 H Absolute Neuts (auto) 8.6 H Absolute Nucleated RBC 0.000 Nucleated RBC % (auto) 0.0 Neutrophils % (Manual) Band Neutrophils % Lymphocytes % (Manual) Monocytes % (Manual) Abs Neuts (Manual) Lymphocytes # (Manual) Monocytes # (Manual) Platelet Estimate Plt Morphology Comment RBC Morphology Acanthocytes (Spur) Smear Tech's Comments Smear Path Review PT INR APTT O2 Saturation ABG pH at Pt Temp ABG pH (Temp Correct) ABG pCO2 at Pt Temp ABG pCO2 (Temp Corrct ABG pO2 at Pt Temp ABG pO2 (Temp Correct ABG HCO3 ABG Base Excess (Actual) VBG pH VBG pCO2 VBG pO2 VBG HCO3 VBG O2 Saturation VBG Base Excess Sodium Potassium Chloride Carbon Dioxide Anion Gap BUN Creatinine Estim Creat Clear Calc Estimated GFR POC Glucose 108 79 Random Glucose Fasting Glucose Osmolality Lactic Acid Calcium Phosphorus Magnesium Total Bilirubin Direct Bilirubin AST ALT Alkaline Phosphatase Ammonia Troponin I High Sens B-Natriuretic Peptide Total Protein Albumin Procalcitonin TSH Random Cortisol Urine Color Urine Appearance Urine pH Ur Specific [place] Urine Protein Urine Glucose (UA) Urine Ketones Urine Blood Urine Nitrite Ur Leukocyte Esterase Urine RBC Urine WBC Ur Squamous Epith Cells Urine Bacteria Urine Mucus Urine Osmolality Ur Random Sodium Ur Random Potassium Ur Random Chloride Stool Occult Blood Stool Leukocytes, Qual Random Vancomycin Digoxin C. difficile Tox B Gene COVID-19 (JESSY) COVID-19 Clin Com Influenza Type A (PCR) Influenza Type B (PCR) RSV RNA Qual (PCR) SARS-CoV-2 RNA (RT-PCR) Blood Type Antibody Screen Crossmatch 12/14/21 12/14/21 12/14/21 04:48 04:48 04:48 WBC RBC Hgb Hct MCV MCH MCHC RDW Plt Count MPV Immature Gran % (Auto) Neut % (Auto) Lymph % (Auto) [place] % (Auto) Eos % (Auto) Baso % (Auto) Lymph # (Auto) [place] # (Auto) Eos # (Auto) Baso # (Auto) Abs Immat Gran (auto) Absolute Neuts (auto) Absolute Nucleated RBC Nucleated RBC % (auto) Neutrophils % (Manual) Band Neutrophils % Lymphocytes % (Manual) Monocytes % (Manual) Abs Neuts (Manual) Lymphocytes # (Manual) Monocytes # (Manual) Platelet Estimate Plt Morphology Comment RBC Morphology Acanthocytes (Spur) Smear Tech's Comments Smear Path Review PT 22.4 H INR 1.9 H APTT 44.5 H O2 Saturation ABG pH at Pt Temp ABG pH (Temp Correct) ABG pCO2 at Pt Temp ABG pCO2 (Temp Corrct ABG pO2 at Pt Temp ABG pO2 (Temp Correct ABG HCO3 ABG Base Excess (Actual) VBG pH VBG pCO2 VBG pO2 VBG HCO3 VBG O2 Saturation VBG Base Excess Sodium 140 Potassium 3.0 L Chloride 105 Carbon Dioxide 30 H Anion Gap 8 L BUN 15 Creatinine 0.76 Estim Creat Clear Calc 111.5 Estimated GFR > 60 POC Glucose Random Glucose 66 Fasting Glucose Osmolality Lactic Acid Calcium 8.2 L Phosphorus 2.7 Magnesium 2.1 Total Bilirubin 0.6 Direct Bilirubin 0.5 AST 30 ALT 25 Alkaline Phosphatase 61 Ammonia Troponin I High Sens B-Natriuretic Peptide 253 H Total Protein 5.0 L Albumin 2.6 L Procalcitonin TSH Random Cortisol Urine Color Urine Appearance Urine pH Ur Specific [place] Urine Protein Urine Glucose (UA) Urine Ketones Urine Blood Urine Nitrite Ur Leukocyte Esterase Urine RBC Urine WBC Ur Squamous Epith Cells Urine Bacteria Urine Mucus Urine Osmolality Ur Random Sodium Ur Random Potassium Ur Random Chloride Stool Occult Blood Stool Leukocytes, Qual Random Vancomycin Digoxin C. difficile Tox B Gene COVID-19 (JESSY) COVID-19 Clin Com Influenza Type A (PCR) Influenza Type B (PCR) RSV RNA Qual (PCR) SARS-CoV-2 RNA (RT-PCR) Blood Type Antibody Screen Crossmatch 12/14/21 12/14/21 12/14/21 04:57 07:13 11:20 WBC RBC Hgb Hct MCV MCH MCHC RDW Plt Count MPV Immature Gran % (Auto) Neut % (Auto) Lymph % (Auto) [place] % (Auto) Eos % (Auto) Baso % (Auto) Lymph # (Auto) [place] # (Auto) Eos # (Auto) Baso # (Auto) Abs Immat Gran (auto) Absolute Neuts (auto) Absolute Nucleated RBC Nucleated RBC % (auto) Neutrophils % (Manual) Band Neutrophils % Lymphocytes % (Manual) Monocytes % (Manual) Abs Neuts (Manual) Lymphocytes # (Manual) Monocytes # (Manual) Platelet Estimate Plt Morphology Comment RBC Morphology Acanthocytes (Spur) Smear Tech's Comments Smear Path Review PT INR APTT O2 Saturation ABG pH at Pt Temp ABG pH (Temp Correct) ABG pCO2 at Pt Temp ABG pCO2 (Temp Corrct ABG pO2 at Pt Temp ABG pO2 (Temp Correct ABG HCO3 ABG Base Excess (Actual) VBG pH 7.42 VBG pCO2 42 VBG pO2 41 VBG HCO3 28 H VBG O2 Saturation 61.0 VBG Base Excess 3.5 Sodium Potassium Chloride Carbon Dioxide Anion Gap BUN Creatinine Estim Creat Clear Calc Estimated GFR POC Glucose 72 71 Random Glucose Fasting Glucose Osmolality Lactic Acid Calcium Phosphorus Magnesium Total Bilirubin Direct Bilirubin AST ALT Alkaline Phosphatase Ammonia Troponin I High Sens B-Natriuretic Peptide Total Protein Albumin Procalcitonin TSH Random Cortisol Urine Color Urine Appearance Urine pH Ur Specific [place] Urine Protein Urine Glucose (UA) Urine Ketones Urine Blood Urine Nitrite Ur Leukocyte Esterase Urine RBC Urine WBC Ur Squamous Epith Cells Urine Bacteria Urine Mucus Urine Osmolality Ur Random Sodium Ur Random Potassium Ur Random Chloride Stool Occult Blood Stool Leukocytes, Qual Random Vancomycin Digoxin C. difficile Tox B Gene COVID-19 (JESSY) COVID-19 Clin Com Influenza Type A (PCR) Influenza Type B (PCR) RSV RNA Qual (PCR) SARS-CoV-2 RNA (RT-PCR) Blood Type Antibody Screen Crossmatch 12/14/21 12/14/21 12/15/21 16:17 20:30 05:20 WBC 9.7 RBC 4.18 L Hgb 8.9 L Hct 30.6 L MCV 73.2 L MCH 21.3 L MCHC 29.1 L RDW 28.6 H Plt Count 562 H D MPV 9.8 Immature Gran % (Auto) 0.6 H Neut % (Auto) 82.8 H Lymph % (Auto) 7.3 L Bradley % (Auto) 7.8 Eos % (Auto) 1.3 Baso % (Auto) 0.2 Lymph # (Auto) 0.7 L [place] # (Auto) 0.8 Eos # (Auto) 0.1 Baso # (Auto) 0.0 Abs Immat Gran (auto) 0.06 H Absolute Neuts (auto) 8.0 Absolute Nucleated RBC 0.000 Nucleated RBC % (auto) 0.0 Neutrophils % (Manual) Band Neutrophils % Lymphocytes % (Manual) Monocytes % (Manual) Abs Neuts (Manual) Lymphocytes # (Manual) Monocytes # (Manual) Platelet Estimate Plt Morphology Comment RBC Morphology Acanthocytes (Spur) Smear Tech's Comments Smear Path Review PT INR APTT O2 Saturation ABG pH at Pt Temp ABG pH (Temp Correct) ABG pCO2 at Pt Temp ABG pCO2 (Temp Corrct ABG pO2 at Pt Temp ABG pO2 (Temp Correct ABG HCO3 ABG Base Excess (Actual) VBG pH VBG pCO2 VBG pO2 VBG HCO3 VBG O2 Saturation VBG Base Excess Sodium Potassium Chloride Carbon Dioxide Anion Gap BUN Creatinine Estim Creat Clear Calc Estimated GFR POC Glucose 72 79 Random Glucose Fasting Glucose Osmolality Lactic Acid Calcium Phosphorus Magnesium Total Bilirubin Direct Bilirubin AST ALT Alkaline Phosphatase Ammonia Troponin I High Sens B-Natriuretic Peptide Total Protein Albumin Procalcitonin TSH Random Cortisol Urine Color Urine Appearance Urine pH Ur Specific [place] Urine Protein Urine Glucose (UA) Urine Ketones Urine Blood Urine Nitrite Ur Leukocyte Esterase Urine RBC Urine WBC Ur Squamous Epith Cells Urine Bacteria Urine Mucus Urine Osmolality Ur Random Sodium Ur Random Potassium Ur Random Chloride Stool Occult Blood Stool Leukocytes, Qual Random Vancomycin Digoxin C. difficile Tox B Gene COVID-19 (JESSY) COVID-19 Clin Com Influenza Type A (PCR) Influenza Type B (PCR) RSV RNA Qual (PCR) SARS-CoV-2 RNA (RT-PCR) Blood Type Antibody Screen Crossmatch 12/15/21 12/15/21 12/15/21 05:20 05:20 05:20 WBC RBC Hgb Hct MCV MCH MCHC RDW Plt Count MPV Immature Gran % (Auto) Neut % (Auto) Lymph % (Auto) [place] % (Auto) Eos % (Auto) Baso % (Auto) Lymph # (Auto) [place] # (Auto) Eos # (Auto) Baso # (Auto) Abs Immat Gran (auto) Absolute Neuts (auto) Absolute Nucleated RBC Nucleated RBC % (auto) Neutrophils % (Manual) Band Neutrophils % Lymphocytes % (Manual) Monocytes % (Manual) Abs Neuts (Manual) Lymphocytes # (Manual) Monocytes # (Manual) Platelet Estimate Plt Morphology Comment RBC Morphology Acanthocytes (Spur) Smear Tech's Comments Smear Path Review PT 24.2 H INR 2.1 H APTT 39.5 H O2 Saturation ABG pH at Pt Temp ABG pH (Temp Correct) ABG pCO2 at Pt Temp ABG pCO2 (Temp Corrct ABG pO2 at Pt Temp ABG pO2 (Temp Correct ABG HCO3 ABG Base Excess (Actual) VBG pH VBG pCO2 VBG pO2 VBG HCO3 VBG O2 Saturation VBG Base Excess Sodium 143 Potassium 3.3 Chloride 109 H Carbon Dioxide 26 Anion Gap 11 L BUN 13 Creatinine 0.69 Estim Creat Clear Calc 122.2 Estimated GFR > 60 POC Glucose Random Glucose 78 Fasting Glucose Osmolality Lactic Acid Calcium 8.1 L Phosphorus 2.4 L Magnesium 2.2 Total Bilirubin 0.7 Direct Bilirubin 0.4 AST 33 H ALT 31 Alkaline Phosphatase 65 Ammonia Troponin I High Sens B-Natriuretic Peptide 433 H Total Protein 5.2 L Albumin 2.7 L Procalcitonin TSH Random Cortisol Urine Color Urine Appearance Urine pH Ur Specific [place] Urine Protein Urine Glucose (UA) Urine Ketones Urine Blood Urine Nitrite Ur Leukocyte Esterase Urine RBC Urine WBC Ur Squamous Epith Cells Urine Bacteria Urine Mucus Urine Osmolality Ur Random Sodium Ur Random Potassium Ur Random Chloride Stool Occult Blood Stool Leukocytes, Qual Random Vancomycin Digoxin C. difficile Tox B Gene COVID-19 (JESSY) COVID-19 Clin Com Influenza Type A (PCR) Influenza Type B (PCR) RSV RNA Qual (PCR) SARS-CoV-2 RNA (RT-PCR) Blood Type Antibody Screen Crossmatch 12/15/21 12/15/21 12/15/21 07:28 09:41 11:24 WBC RBC Hgb Hct MCV MCH MCHC RDW Plt Count MPV Immature Gran % (Auto) Neut % (Auto) Lymph % (Auto) [place] % (Auto) Eos % (Auto) Baso % (Auto) Lymph # (Auto) [place] # (Auto) Eos # (Auto) Baso # (Auto) Abs Immat Gran (auto) Absolute Neuts (auto) Absolute Nucleated RBC Nucleated RBC % (auto) Neutrophils % (Manual) Band Neutrophils % Lymphocytes % (Manual) Monocytes % (Manual) Abs Neuts (Manual) Lymphocytes # (Manual) Monocytes # (Manual) Platelet Estimate Plt Morphology Comment RBC Morphology Acanthocytes (Spur) Smear Tech's Comments Smear Path Review PT INR APTT O2 Saturation ABG pH at Pt Temp ABG pH (Temp Correct) ABG pCO2 at Pt Temp ABG pCO2 (Temp Corrct ABG pO2 at Pt Temp ABG pO2 (Temp Correct ABG HCO3 ABG Base Excess (Actual) VBG pH 7.44 H VBG pCO2 34 VBG pO2 84 VBG HCO3 23 VBG O2 Saturation 96.0 VBG Base Excess 0.1 Sodium Potassium Chloride Carbon Dioxide Anion Gap BUN Creatinine Estim Creat Clear Calc Estimated GFR POC Glucose 82 86 Random Glucose Fasting Glucose Osmolality Lactic Acid Calcium Phosphorus Magnesium Total Bilirubin Direct Bilirubin AST ALT Alkaline Phosphatase Ammonia Troponin I High Sens B-Natriuretic Peptide Total Protein Albumin Procalcitonin TSH Random Cortisol Urine Color Urine Appearance Urine pH Ur Specific [place] Urine Protein Urine Glucose (UA) Urine Ketones Urine Blood Urine Nitrite Ur Leukocyte Esterase Urine RBC Urine WBC Ur Squamous Epith Cells Urine Bacteria Urine Mucus Urine Osmolality Ur Random Sodium Ur Random Potassium Ur Random Chloride Stool Occult Blood Stool Leukocytes, Qual Random Vancomycin Digoxin C. difficile Tox B Gene COVID-19 (JESSY) COVID-19 Clin Com Influenza Type A (PCR) Influenza Type B (PCR) RSV RNA Qual (PCR) SARS-CoV-2 RNA (RT-PCR) Blood Type Antibody Screen Crossmatch 12/15/21 12/15/21 12/16/21 16:10 19:27 06:09 WBC 10.1 RBC 4.45 Hgb 9.4 L Hct 32.3 L MCV 72.6 L MCH 21.1 L MCHC 29.1 L RDW 29.2 H Plt Count 671 H MPV 9.6 Immature Gran % (Auto) 0.8 H Neut % (Auto) 81.8 H Lymph % (Auto) 8.0 L [place] % (Auto) 7.6 Eos % (Auto) 1.4 Baso % (Auto) 0.4 Lymph # (Auto) 0.8 L [place] # (Auto) 0.8 Eos # (Auto) 0.1 Baso # (Auto) 0.0 Abs Immat Gran (auto) 0.08 H Absolute Neuts (auto) 8.3 Absolute Nucleated RBC 0.000 Nucleated RBC % (auto) 0.0 Neutrophils % (Manual) Band Neutrophils % Lymphocytes % (Manual) Monocytes % (Manual) Abs Neuts (Manual) Lymphocytes # (Manual) Monocytes # (Manual) Platelet Estimate Plt Morphology Comment RBC Morphology Acanthocytes (Spur) Smear Tech's Comments Smear Path Review PT INR APTT O2 Saturation ABG pH at Pt Temp ABG pH (Temp Correct) ABG pCO2 at Pt Temp ABG pCO2 (Temp Corrct ABG pO2 at Pt Temp ABG pO2 (Temp Correct ABG HCO3 ABG Base Excess (Actual) VBG pH VBG pCO2 VBG pO2 VBG HCO3 VBG O2 Saturation VBG Base Excess Sodium Potassium Chloride Carbon Dioxide Anion Gap BUN Creatinine Estim Creat Clear Calc Estimated GFR POC Glucose 79 107 Random Glucose Fasting Glucose Osmolality Lactic Acid Calcium Phosphorus Magnesium Total Bilirubin Direct Bilirubin AST ALT Alkaline Phosphatase Ammonia Troponin I High Sens B-Natriuretic Peptide Total Protein Albumin Procalcitonin TSH Random Cortisol Urine Color Urine Appearance Urine pH Ur Specific [place] Urine Protein Urine Glucose (UA) Urine Ketones Urine Blood Urine Nitrite Ur Leukocyte Esterase Urine RBC Urine WBC Ur Squamous Epith Cells Urine Bacteria Urine Mucus Urine Osmolality Ur Random Sodium Ur Random Potassium Ur Random Chloride Stool Occult Blood Stool Leukocytes, Qual Random Vancomycin Digoxin C. difficile Tox B Gene COVID-19 (JESSY) COVID-19 Clin Com Influenza Type A (PCR) Influenza Type B (PCR) RSV RNA Qual (PCR) SARS-CoV-2 RNA (RT-PCR) Blood Type Antibody Screen Crossmatch 12/16/21 12/16/21 12/16/21 06:09 06:09 06:09 WBC RBC Hgb Hct MCV MCH MCHC RDW Plt Count MPV Immature Gran % (Auto) Neut % (Auto) Lymph % (Auto) [place] % (Auto) Eos % (Auto) Baso % (Auto) Lymph # (Auto) [place] # (Auto) Eos # (Auto) Baso # (Auto) Abs Immat Gran (auto) Absolute Neuts (auto) Absolute Nucleated RBC Nucleated RBC % (auto) Neutrophils % (Manual) Band Neutrophils % Lymphocytes % (Manual) Monocytes % (Manual) Abs Neuts (Manual) Lymphocytes # (Manual) Monocytes # (Manual) Platelet Estimate Plt Morphology Comment RBC Morphology Acanthocytes (Spur) Smear Tech's Comments Smear Path Review PT 24.2 H INR 2.1 H APTT 41.5 H O2 Saturation ABG pH at Pt Temp ABG pH (Temp Correct) ABG pCO2 at Pt Temp ABG pCO2 (Temp Corrct ABG pO2 at Pt Temp ABG pO2 (Temp Correct ABG HCO3 ABG Base Excess (Actual) VBG pH VBG pCO2 VBG pO2 VBG HCO3 VBG O2 Saturation VBG Base Excess Sodium 147 H Potassium 3.6 Chloride 110 H Carbon Dioxide 28 Anion Gap 13 BUN 12 Creatinine 0.68 Estim Creat Clear Calc 122.1 Estimated GFR > 60 POC Glucose Random Glucose 118 H Fasting Glucose Osmolality Lactic Acid Calcium 8.3 L Phosphorus 2.5 L Magnesium 2.3 Total Bilirubin 0.8 Direct Bilirubin 0.5 AST 34 H ALT 37 H Alkaline Phosphatase 70 Ammonia Troponin I High Sens B-Natriuretic Peptide 407 H Total Protein 5.6 L Albumin 2.9 L Procalcitonin TSH Random Cortisol Urine Color Urine Appearance Urine pH Ur Specific [place] Urine Protein Urine Glucose (UA) Urine Ketones Urine Blood Urine Nitrite Ur Leukocyte Esterase Urine RBC Urine WBC Ur Squamous Epith Cells Urine Bacteria Urine Mucus Urine Osmolality Ur Random Sodium Ur Random Potassium Ur Random Chloride Stool Occult Blood Stool Leukocytes, Qual Random Vancomycin Digoxin C. difficile Tox B Gene COVID-19 (JESSY) COVID-19 Clin Com Influenza Type A (PCR) Influenza Type B (PCR) RSV RNA Qual (PCR) SARS-CoV-2 RNA (RT-PCR) Blood Type Antibody Screen Crossmatch 12/16/21 12/16/21 12/16/21 06:15 07:13 10:58 WBC RBC Hgb Hct MCV MCH MCHC RDW Plt Count MPV Immature Gran % (Auto) Neut % (Auto) Lymph % (Auto) [place] % (Auto) Eos % (Auto) Baso % (Auto) Lymph # (Auto) [place] # (Auto) Eos # (Auto) Baso # (Auto) Abs Immat Gran (auto) Absolute Neuts (auto) Absolute Nucleated RBC Nucleated RBC % (auto) Neutrophils % (Manual) Band Neutrophils % Lymphocytes % (Manual) Monocytes % (Manual) Abs Neuts (Manual) Lymphocytes # (Manual) Monocytes # (Manual) Platelet Estimate Plt Morphology Comment RBC Morphology Acanthocytes (Spur) Smear Tech's Comments Smear Path Review PT INR APTT O2 Saturation ABG pH at Pt Temp ABG pH (Temp Correct) ABG pCO2 at Pt Temp ABG pCO2 (Temp Corrct ABG pO2 at Pt Temp ABG pO2 (Temp Correct ABG HCO3 ABG Base Excess (Actual) VBG pH 7.45 H VBG pCO2 36 VBG pO2 53 VBG HCO3 25 VBG O2 Saturation 83.0 VBG Base Excess 1.8 Sodium Potassium Chloride Carbon Dioxide Anion Gap BUN Creatinine Estim Creat Clear Calc Estimated GFR POC Glucose 117 H 223 H Random Glucose Fasting Glucose Osmolality Lactic Acid Calcium Phosphorus Magnesium Total Bilirubin Direct Bilirubin AST ALT Alkaline Phosphatase Ammonia Troponin I High Sens B-Natriuretic Peptide Total Protein Albumin Procalcitonin TSH Random Cortisol Urine Color Urine Appearance Urine pH Ur Specific [place] Urine Protein Urine Glucose (UA) Urine Ketones Urine Blood Urine Nitrite Ur Leukocyte Esterase Urine RBC Urine WBC Ur Squamous Epith Cells Urine Bacteria Urine Mucus Urine Osmolality Ur Random Sodium Ur Random Potassium Ur Random Chloride Stool Occult Blood Stool Leukocytes, Qual Random Vancomycin Digoxin C. difficile Tox B Gene COVID-19 (JESSY) COVID-19 Clin Com Influenza Type A (PCR) Influenza Type B (PCR) RSV RNA Qual (PCR) SARS-CoV-2 RNA (RT-PCR) Blood Type Antibody Screen Crossmatch 12/16/21 12/16/21 12/17/21 15:45 20:11 04:47 WBC 11.8 H RBC 4.53 Hgb 9.6 L Hct 33.5 L MCV 74.0 L MCH 21.2 L MCHC 28.7 L RDW 29.8 H Plt Count 664 H MPV 9.2 L Immature Gran % (Auto) 0.5 H Neut % (Auto) 84.0 H Lymph % (Auto) 7.6 L [place] % (Auto) 6.4 Eos % (Auto) 1.2 Baso % (Auto) 0.3 Lymph # (Auto) 0.9 L [place] # (Auto) 0.8 Eos # (Auto) 0.1 Baso # (Auto) 0.0 Abs Immat Gran (auto) 0.06 H Absolute Neuts (auto) 9.9 H Absolute Nucleated RBC 0.000 Nucleated RBC % (auto) 0.0 Neutrophils % (Manual) Band Neutrophils % Lymphocytes % (Manual) Monocytes % (Manual) Abs Neuts (Manual) Lymphocytes # (Manual) Monocytes # (Manual) Platelet Estimate Plt Morphology Comment RBC Morphology Acanthocytes (Spur) Smear Tech's Comments Smear Path Review PT INR APTT O2 Saturation ABG pH at Pt Temp ABG pH (Temp Correct) ABG pCO2 at Pt Temp ABG pCO2 (Temp Corrct ABG pO2 at Pt Temp ABG pO2 (Temp Correct ABG HCO3 ABG Base Excess (Actual) VBG pH VBG pCO2 VBG pO2 VBG HCO3 VBG O2 Saturation VBG Base Excess Sodium Potassium Chloride Carbon Dioxide Anion Gap BUN Creatinine Estim Creat Clear Calc Estimated GFR POC Glucose 182 H 171 H Random Glucose Fasting Glucose Osmolality Lactic Acid Calcium Phosphorus Magnesium Total Bilirubin Direct Bilirubin AST ALT Alkaline Phosphatase Ammonia Troponin I High Sens B-Natriuretic Peptide Total Protein Albumin Procalcitonin TSH Random Cortisol Urine Color Urine Appearance Urine pH Ur Specific [place] Urine Protein Urine Glucose (UA) Urine Ketones Urine Blood Urine Nitrite Ur Leukocyte Esterase Urine RBC Urine WBC Ur Squamous Epith Cells Urine Bacteria Urine Mucus Urine Osmolality Ur Random Sodium Ur Random Potassium Ur Random Chloride Stool Occult Blood Stool Leukocytes, Qual Random Vancomycin Digoxin C. difficile Tox B Gene COVID-19 (JESSY) COVID-19 Clin Com Influenza Type A (PCR) Influenza Type B (PCR) RSV RNA Qual (PCR) SARS-CoV-2 RNA (RT-PCR) Blood Type Antibody Screen Crossmatch 12/17/21 12/17/21 12/17/21 04:47 04:47 04:47 WBC RBC Hgb Hct MCV MCH MCHC RDW Plt Count MPV Immature Gran % (Auto) Neut % (Auto) Lymph % (Auto) [place] % (Auto) Eos % (Auto) Baso % (Auto) Lymph # (Auto) [place] # (Auto) Eos # (Auto) Baso # (Auto) Abs Immat Gran (auto) Absolute Neuts (auto) Absolute Nucleated RBC Nucleated RBC % (auto) Neutrophils % (Manual) Band Neutrophils % Lymphocytes % (Manual) Monocytes % (Manual) Abs Neuts (Manual) Lymphocytes # (Manual) Monocytes # (Manual) Platelet Estimate Plt Morphology Comment RBC Morphology Acanthocytes (Spur) Smear Tech's Comments Smear Path Review PT 27.6 H INR 2.4 H APTT 44.9 H O2 Saturation ABG pH at Pt Temp ABG pH (Temp Correct) ABG pCO2 at Pt Temp ABG pCO2 (Temp Corrct ABG pO2 at Pt Temp ABG pO2 (Temp Correct ABG HCO3 ABG Base Excess (Actual) VBG pH VBG pCO2 VBG pO2 VBG HCO3 VBG O2 Saturation VBG Base Excess Sodium Cancelled Potassium Cancelled Chloride Cancelled Carbon Dioxide Cancelled Anion Gap Cancelled BUN Cancelled Creatinine Cancelled Estim Creat Clear Calc Cancelled Estimated GFR Cancelled POC Glucose Random Glucose Cancelled Fasting Glucose Osmolality Lactic Acid Calcium Cancelled Phosphorus Magnesium Total Bilirubin Direct Bilirubin AST ALT Alkaline Phosphatase Ammonia Troponin I High Sens B-Natriuretic Peptide 376 H Total Protein Albumin Procalcitonin TSH Random Cortisol Urine Color Urine Appearance Urine pH Ur Specific [place] Urine Protein Urine Glucose (UA) Urine Ketones Urine Blood Urine Nitrite Ur Leukocyte Esterase Urine RBC Urine WBC Ur Squamous Epith Cells Urine Bacteria Urine Mucus Urine Osmolality Ur Random Sodium Ur Random Potassium Ur Random Chloride Stool Occult Blood Stool Leukocytes, Qual Random Vancomycin Digoxin C. difficile Tox B Gene COVID-19 (JESSY) COVID-19 Clin Com Influenza Type A (PCR) Influenza Type B (PCR) RSV RNA Qual (PCR) SARS-CoV-2 RNA (RT-PCR) Blood Type Antibody Screen Crossmatch 12/17/21 12/17/21 12/17/21 04:48 04:52 04:57 WBC RBC Hgb Hct MCV MCH MCHC RDW Plt Count MPV Immature Gran % (Auto) Neut % (Auto) Lymph % (Auto) [place] % (Auto) Eos % (Auto) Baso % (Auto) Lymph # (Auto) [place] # (Auto) Eos # (Auto) Baso # (Auto) Abs Immat Gran (auto) Absolute Neuts (auto) Absolute Nucleated RBC Nucleated RBC % (auto) Neutrophils % (Manual) Band Neutrophils % Lymphocytes % (Manual) Monocytes % (Manual) Abs Neuts (Manual) Lymphocytes # (Manual) Monocytes # (Manual) Platelet Estimate Plt Morphology Comment RBC Morphology Acanthocytes (Spur) Smear Tech's Comments Smear Path Review PT INR APTT O2 Saturation 90.0 ABG pH at Pt Temp 7.49 H ABG pH (Temp Correct) ABG pCO2 at Pt Temp 38 ABG pCO2 (Temp Corrct ABG pO2 at Pt Temp 63 L ABG pO2 (Temp Correct ABG HCO3 29 H ABG Base Excess (Actual) 6.4 VBG pH 7.48 H VBG pCO2 37 VBG pO2 53 VBG HCO3 28 H VBG O2 Saturation 83.0 VBG Base Excess 4.4 Sodium 150 H Potassium 3.8 Chloride 113 H Carbon Dioxide 28 Anion Gap 13 BUN 9 Creatinine 0.66 Estim Creat Clear Calc 125.7 Estimated GFR > 60 POC Glucose Random Glucose 185 H Fasting Glucose Osmolality Lactic Acid Calcium 8.2 L Phosphorus 2.4 L Magnesium 2.2 Total Bilirubin 0.7 Direct Bilirubin 0.4 AST 31 ALT 34 H Alkaline Phosphatase 69 Ammonia Troponin I High Sens B-Natriuretic Peptide Total Protein 5.7 L Albumin 2.9 L Procalcitonin TSH Random Cortisol Urine Color Urine Appearance Urine pH Ur Specific [place] Urine Protein Urine Glucose (UA) Urine Ketones Urine Blood Urine Nitrite Ur Leukocyte Esterase Urine RBC Urine WBC Ur Squamous Epith Cells Urine Bacteria Urine Mucus Urine Osmolality Ur Random Sodium Ur Random Potassium Ur Random Chloride Stool Occult Blood Stool Leukocytes, Qual Random Vancomycin Digoxin C. difficile Tox B Gene COVID-19 (JESSY) COVID-19 Clin Com Influenza Type A (PCR) Influenza Type B (PCR) RSV RNA Qual (PCR) SARS-CoV-2 RNA (RT-PCR) Blood Type Antibody Screen Crossmatch 12/17/21 12/17/21 12/17/21 07:16 10:47 16:22 WBC RBC Hgb Hct MCV MCH MCHC RDW Plt Count MPV Immature Gran % (Auto) Neut % (Auto) Lymph % (Auto) [place] % (Auto) Eos % (Auto) Baso % (Auto) Lymph # (Auto) [place] # (Auto) Eos # (Auto) Baso # (Auto) Abs Immat Gran (auto) Absolute Neuts (auto) Absolute Nucleated RBC Nucleated RBC % (auto) Neutrophils % (Manual) Band Neutrophils % Lymphocytes % (Manual) Monocytes % (Manual) Abs Neuts (Manual) Lymphocytes # (Manual) Monocytes # (Manual) Platelet Estimate Plt Morphology Comment RBC Morphology Acanthocytes (Spur) Smear Tech's Comments Smear Path Review PT INR APTT O2 Saturation ABG pH at Pt Temp ABG pH (Temp Correct) ABG pCO2 at Pt Temp ABG pCO2 (Temp Corrct ABG pO2 at Pt Temp ABG pO2 (Temp Correct ABG HCO3 ABG Base Excess (Actual) VBG pH VBG pCO2 VBG pO2 VBG HCO3 VBG O2 Saturation VBG Base Excess Sodium Potassium Chloride Carbon Dioxide Anion Gap BUN Creatinine Estim Creat Clear Calc Estimated GFR POC Glucose 178 H 274 H 171 H Random Glucose Fasting Glucose Osmolality Lactic Acid Calcium Phosphorus Magnesium Total Bilirubin Direct Bilirubin AST ALT Alkaline Phosphatase Ammonia Troponin I High Sens B-Natriuretic Peptide Total Protein Albumin Procalcitonin TSH Random Cortisol Urine Color Urine Appearance Urine pH Ur Specific [place] Urine Protein Urine Glucose (UA) Urine Ketones Urine Blood Urine Nitrite Ur Leukocyte Esterase Urine RBC Urine WBC Ur Squamous Epith Cells Urine Bacteria Urine Mucus Urine Osmolality Ur Random Sodium Ur Random Potassium Ur Random Chloride Stool Occult Blood Stool Leukocytes, Qual Random Vancomycin Digoxin C. difficile Tox B Gene COVID-19 (JESSY) COVID-19 Clin Com Influenza Type A (PCR) Influenza Type B (PCR) RSV RNA Qual (PCR) SARS-CoV-2 RNA (RT-PCR) Blood Type Antibody Screen Crossmatch 12/17/21 12/18/21 12/18/21 20:01 00:14 03:58 WBC RBC Hgb Hct MCV MCH MCHC RDW Plt Count MPV Immature Gran % (Auto) Neut % (Auto) Lymph % (Auto) [place] % (Auto) Eos % (Auto) Baso % (Auto) Lymph # (Auto) [place] # (Auto) Eos # (Auto) Baso # (Auto) Abs Immat Gran (auto) Absolute Neuts (auto) Absolute Nucleated RBC Nucleated RBC % (auto) Neutrophils % (Manual) Band Neutrophils % Lymphocytes % (Manual) Monocytes % (Manual) Abs Neuts (Manual) Lymphocytes # (Manual) Monocytes # (Manual) Platelet Estimate Plt Morphology Comment RBC Morphology Acanthocytes (Spur) Smear Tech's Comments Smear Path Review PT INR APTT O2 Saturation ABG pH at Pt Temp ABG pH (Temp Correct) ABG pCO2 at Pt Temp ABG pCO2 (Temp Corrct ABG pO2 at Pt Temp ABG pO2 (Temp Correct ABG HCO3 ABG Base Excess (Actual) VBG pH 7.46 H VBG pCO2 47 VBG pO2 50 VBG HCO3 34 H VBG O2 Saturation 78.0 VBG Base Excess 9.6 Sodium 151 H Potassium 3.6 Chloride 114 H Carbon Dioxide 31 H Anion Gap 10 L BUN 8 L Creatinine 0.65 Estim Creat Clear Calc 127.3 Estimated GFR > 60 POC Glucose 197 H Random Glucose 168 H Fasting Glucose Osmolality Lactic Acid Calcium 8.3 L Phosphorus Magnesium Total Bilirubin Direct Bilirubin AST ALT Alkaline Phosphatase Ammonia Troponin I High Sens B-Natriuretic Peptide Total Protein Albumin Procalcitonin TSH Random Cortisol Urine Color Urine Appearance Urine pH Ur Specific [place] Urine Protein Urine Glucose (UA) Urine Ketones Urine Blood Urine Nitrite Ur Leukocyte Esterase Urine RBC Urine WBC Ur Squamous Epith Cells Urine Bacteria Urine Mucus Urine Osmolality Ur Random Sodium Ur Random Potassium Ur Random Chloride Stool Occult Blood Stool Leukocytes, Qual Random Vancomycin Digoxin C. difficile Tox B Gene COVID-19 (JESSY) COVID-19 Clin Com Influenza Type A (PCR) Influenza Type B (PCR) RSV RNA Qual (PCR) SARS-CoV-2 RNA (RT-PCR) Blood Type Antibody Screen Crossmatch 12/18/21 12/18/21 12/18/21 04:44 04:46 05:58 WBC 10.4 RBC 4.42 Hgb 9.4 L Hct 33.3 L MCV 75.3 L MCH 21.3 L MCHC 28.2 L RDW 29.4 H Plt Count 593 H MPV 9.4 Immature Gran % (Auto) 0.6 H Neut % (Auto) 80.7 H Lymph % (Auto) 11.0 L [place] % (Auto) 5.4 Eos % (Auto) 1.7 Baso % (Auto) 0.6 Lymph # (Auto) 1.1 L [place] # (Auto) 0.6 Eos # (Auto) 0.2 Baso # (Auto) 0.1 Abs Immat Gran (auto) 0.06 H Absolute Neuts (auto) 8.4 H Absolute Nucleated RBC 0.000 Nucleated RBC % (auto) 0.0 Neutrophils % (Manual) Band Neutrophils % Lymphocytes % (Manual) Monocytes % (Manual) Abs Neuts (Manual) Lymphocytes # (Manual) Monocytes # (Manual) Platelet Estimate Plt Morphology Comment RBC Morphology Acanthocytes (Spur) Smear Tech's Comments Smear Path Review PT INR APTT O2 Saturation ABG pH at Pt Temp ABG pH (Temp Correct) ABG pCO2 at Pt Temp ABG pCO2 (Temp Corrct ABG pO2 at Pt Temp ABG pO2 (Temp Correct ABG HCO3 ABG Base Excess (Actual) VBG pH 7.43 VBG pCO2 55 VBG pO2 53 VBG HCO3 37 H VBG O2 Saturation 79.0 VBG Base Excess 11.4 Sodium 152 H Potassium 3.6 Chloride 111 H Carbon Dioxide 33 H Anion Gap 12 BUN 9 Creatinine 0.69 Estim Creat Clear Calc 119.9 Estimated GFR > 60 POC Glucose Random Glucose 198 H Fasting Glucose Osmolality Lactic Acid Calcium 8.2 L Phosphorus Magnesium Total Bilirubin Direct Bilirubin AST ALT Alkaline Phosphatase Ammonia Troponin I High Sens B-Natriuretic Peptide Total Protein Albumin Procalcitonin TSH Random Cortisol Urine Color Urine Appearance Urine pH Ur Specific [place] Urine Protein Urine Glucose (UA) Urine Ketones Urine Blood Urine Nitrite Ur Leukocyte Esterase Urine RBC Urine WBC Ur Squamous Epith Cells Urine Bacteria Urine Mucus Urine Osmolality Ur Random Sodium Ur Random Potassium Ur Random Chloride Stool Occult Blood Stool Leukocytes, Qual Random Vancomycin Digoxin C. difficile Tox B Gene COVID-19 (JESSY) COVID-19 Clin Com Influenza Type A (PCR) Influenza Type B (PCR) RSV RNA Qual (PCR) SARS-CoV-2 RNA (RT-PCR) Blood Type Antibody Screen Crossmatch 12/18/21 12/18/21 12/18/21 05:58 05:58 05:58 WBC RBC Hgb Hct MCV MCH MCHC RDW Plt Count MPV Immature Gran % (Auto) Neut % (Auto) Lymph % (Auto) [place] % (Auto) Eos % (Auto) Baso % (Auto) Lymph # (Auto) [place] # (Auto) Eos # (Auto) Baso # (Auto) Abs Immat Gran (auto) Absolute Neuts (auto) Absolute Nucleated RBC Nucleated RBC % (auto) Neutrophils % (Manual) Band Neutrophils % Lymphocytes % (Manual) Monocytes % (Manual) Abs Neuts (Manual) Lymphocytes # (Manual) Monocytes # (Manual) Platelet Estimate Plt Morphology Comment RBC Morphology Acanthocytes (Spur) Smear Tech's Comments Smear Path Review PT 31.6 H INR 2.7 H APTT 46.4 H O2 Saturation ABG pH at Pt Temp ABG pH (Temp Correct) ABG pCO2 at Pt Temp ABG pCO2 (Temp Corrct ABG pO2 at Pt Temp ABG pO2 (Temp Correct ABG HCO3 ABG Base Excess (Actual) VBG pH VBG pCO2 VBG pO2 VBG HCO3 VBG O2 Saturation VBG Base Excess Sodium 151 H Potassium 3.6 Chloride 111 H Carbon Dioxide 33 H Anion Gap 11 L BUN 9 Creatinine 0.69 Estim Creat Clear Calc 119.6 Estimated GFR > 60 POC Glucose Random Glucose 187 H Fasting Glucose Osmolality Lactic Acid Calcium 8.1 L Phosphorus 3.0 Magnesium 2.1 Total Bilirubin 0.7 Direct Bilirubin 0.4 AST 21 ALT 27 Alkaline Phosphatase 65 Ammonia Troponin I High Sens B-Natriuretic Peptide 185 H Total Protein 5.5 L Albumin 2.8 L Procalcitonin TSH Random Cortisol Urine Color Urine Appearance Urine pH Ur Specific [place] Urine Protein Urine Glucose (UA) Urine Ketones Urine Blood Urine Nitrite Ur Leukocyte Esterase Urine RBC Urine WBC Ur Squamous Epith Cells Urine Bacteria Urine Mucus Urine Osmolality Ur Random Sodium Ur Random Potassium Ur Random Chloride Stool Occult Blood Stool Leukocytes, Qual Random Vancomycin Digoxin C. difficile Tox B Gene COVID-19 (JESSY) COVID-19 Clin Com Influenza Type A (PCR) Influenza Type B (PCR) RSV RNA Qual (PCR) SARS-CoV-2 RNA (RT-PCR) Blood Type Antibody Screen Crossmatch 12/18/21 12/18/21 12/18/21 06:02 07:17 09:23 WBC RBC Hgb Hct MCV MCH MCHC RDW Plt Count MPV Immature Gran % (Auto) Neut % (Auto) Lymph % (Auto) [place] % (Auto) Eos % (Auto) Baso % (Auto) Lymph # (Auto) [place] # (Auto) Eos # (Auto) Baso # (Auto) Abs Immat Gran (auto) Absolute Neuts (auto) Absolute Nucleated RBC Nucleated RBC % (auto) Neutrophils % (Manual) Band Neutrophils % Lymphocytes % (Manual) Monocytes % (Manual) Abs Neuts (Manual) Lymphocytes # (Manual) Monocytes # (Manual) Platelet Estimate Plt Morphology Comment RBC Morphology Acanthocytes (Spur) Smear Tech's Comments Smear Path Review PT INR APTT O2 Saturation 90.0 ABG pH at Pt Temp 7.49 H ABG pH (Temp Correct) ABG pCO2 at Pt Temp 48 H ABG pCO2 (Temp Corrct ABG pO2 at Pt Temp 63 L ABG pO2 (Temp Correct ABG HCO3 37 H ABG Base Excess (Actual) 13.1 VBG pH 7.45 H VBG pCO2 54 VBG pO2 71 VBG HCO3 38 H VBG O2 Saturation 93.0 VBG Base Excess 12.2 Sodium Potassium Chloride Carbon Dioxide Anion Gap BUN Creatinine Estim Creat Clear Calc Estimated GFR POC Glucose 162 H Random Glucose Fasting Glucose Osmolality Lactic Acid Calcium Phosphorus Magnesium Total Bilirubin Direct Bilirubin AST ALT Alkaline Phosphatase Ammonia Troponin I High Sens B-Natriuretic Peptide Total Protein Albumin Procalcitonin TSH Random Cortisol Urine Color Urine Appearance Urine pH Ur Specific [place] Urine Protein Urine Glucose (UA) Urine Ketones Urine Blood Urine Nitrite Ur Leukocyte Esterase Urine RBC Urine WBC Ur Squamous Epith Cells Urine Bacteria Urine Mucus Urine Osmolality Ur Random Sodium Ur Random Potassium Ur Random Chloride Stool Occult Blood Stool Leukocytes, Qual Random Vancomycin Digoxin C. difficile Tox B Gene COVID-19 (JESSY) COVID-19 Clin Com Influenza Type A (PCR) Influenza Type B (PCR) RSV RNA Qual (PCR) SARS-CoV-2 RNA (RT-PCR) Blood Type Antibody Screen Crossmatch 12/18/21 12/18/21 12/18/21 10:57 16:25 20:16 WBC RBC Hgb Hct MCV MCH MCHC RDW Plt Count MPV Immature Gran % (Auto) Neut % (Auto) Lymph % (Auto) [place] % (Auto) Eos % (Auto) Baso % (Auto) Lymph # (Auto) [place] # (Auto) Eos # (Auto) Baso # (Auto) Abs Immat Gran (auto) Absolute Neuts (auto) Absolute Nucleated RBC Nucleated RBC % (auto) Neutrophils % (Manual) Band Neutrophils % Lymphocytes % (Manual) Monocytes % (Manual) Abs Neuts (Manual) Lymphocytes # (Manual) Monocytes # (Manual) Platelet Estimate Plt Morphology Comment RBC Morphology Acanthocytes (Spur) Smear Tech's Comments Smear Path Review PT INR APTT O2 Saturation ABG pH at Pt Temp ABG pH (Temp Correct) ABG pCO2 at Pt Temp ABG pCO2 (Temp Corrct ABG pO2 at Pt Temp ABG pO2 (Temp Correct ABG HCO3 ABG Base Excess (Actual) VBG pH VBG pCO2 VBG pO2 VBG HCO3 VBG O2 Saturation VBG Base Excess Sodium Potassium Chloride Carbon Dioxide Anion Gap BUN Creatinine Estim Creat Clear Calc Estimated GFR POC Glucose 217 H 208 H 153 H Random Glucose Fasting Glucose Osmolality Lactic Acid Calcium Phosphorus Magnesium Total Bilirubin Direct Bilirubin AST ALT Alkaline Phosphatase Ammonia Troponin I High Sens B-Natriuretic Peptide Total Protein Albumin Procalcitonin TSH Random Cortisol Urine Color Urine Appearance Urine pH Ur Specific [place] Urine Protein Urine Glucose (UA) Urine Ketones Urine Blood Urine Nitrite Ur Leukocyte Esterase Urine RBC Urine WBC Ur Squamous Epith Cells Urine Bacteria Urine Mucus Urine Osmolality Ur Random Sodium Ur Random Potassium Ur Random Chloride Stool Occult Blood Stool Leukocytes, Qual Random Vancomycin Digoxin C. difficile Tox B Gene COVID-19 (JESSY) COVID-19 Clin Com Influenza Type A (PCR) Influenza Type B (PCR) RSV RNA Qual (PCR) SARS-CoV-2 RNA (RT-PCR) Blood Type Antibody Screen Crossmatch 12/19/21 12/19/21 12/19/21 05:53 05:53 05:53 WBC Cancelled 11.0 H RBC Cancelled 4.26 Hgb Cancelled 9.0 L Hct Cancelled 32.4 L MCV Cancelled 76.1 L MCH Cancelled 21.1 L MCHC Cancelled 27.8 L RDW Cancelled 29.3 H Plt Count Cancelled 488 H MPV Cancelled 9.4 Immature Gran % (Auto) 0.6 H Neut % (Auto) 79.9 H Lymph % (Auto) 11.5 L [place] % (Auto) 4.4 Eos % (Auto) 3.1 Baso % (Auto) 0.5 Lymph # (Auto) 1.3 [place] # (Auto) 0.5 Eos # (Auto) 0.3 Baso # (Auto) 0.1 Abs Immat Gran (auto) 0.07 H Absolute Neuts (auto) 8.8 H Absolute Nucleated RBC Cancelled 0.000 Nucleated RBC % (auto) Cancelled 0.0 Neutrophils % (Manual) Band Neutrophils % Lymphocytes % (Manual) Monocytes % (Manual) Abs Neuts (Manual) Lymphocytes # (Manual) Monocytes # (Manual) Platelet Estimate Plt Morphology Comment RBC Morphology Acanthocytes (Spur) Smear Tech's Comments Smear Path Review PT INR APTT O2 Saturation ABG pH at Pt Temp ABG pH (Temp Correct) ABG pCO2 at Pt Temp ABG pCO2 (Temp Corrct ABG pO2 at Pt Temp ABG pO2 (Temp Correct ABG HCO3 ABG Base Excess (Actual) VBG pH VBG pCO2 VBG pO2 VBG HCO3 VBG O2 Saturation VBG Base Excess Sodium Cancelled Potassium Cancelled Chloride Cancelled Carbon Dioxide Cancelled Anion Gap Cancelled BUN Cancelled Creatinine Cancelled Estim Creat Clear Calc Cancelled Estimated GFR Cancelled POC Glucose Random Glucose Cancelled Fasting Glucose Osmolality Lactic Acid Calcium Cancelled Phosphorus Magnesium Total Bilirubin Direct Bilirubin AST ALT Alkaline Phosphatase Ammonia Troponin I High Sens B-Natriuretic Peptide Total Protein Albumin Procalcitonin TSH Random Cortisol Urine Color Urine Appearance Urine pH Ur Specific [place] Urine Protein Urine Glucose (UA) Urine Ketones Urine Blood Urine Nitrite Ur Leukocyte Esterase Urine RBC Urine WBC Ur Squamous Epith Cells Urine Bacteria Urine Mucus Urine Osmolality Ur Random Sodium Ur Random Potassium Ur Random Chloride Stool Occult Blood Stool Leukocytes, Qual Random Vancomycin Digoxin C. difficile Tox B Gene COVID-19 (JESSY) COVID-19 Clin Com Influenza Type A (PCR) Influenza Type B (PCR) RSV RNA Qual (PCR) SARS-CoV-2 RNA (RT-PCR) Blood Type Antibody Screen Crossmatch 12/19/21 12/19/21 12/19/21 05:53 05:53 05:53 WBC RBC Hgb Hct MCV MCH MCHC RDW Plt Count MPV Immature Gran % (Auto) Neut % (Auto) Lymph % (Auto) [place] % (Auto) Eos % (Auto) Baso % (Auto) Lymph # (Auto) [place] # (Auto) Eos # (Auto) Baso # (Auto) Abs Immat Gran (auto) Absolute Neuts (auto) Absolute Nucleated RBC Nucleated RBC % (auto) Neutrophils % (Manual) Band Neutrophils % Lymphocytes % (Manual) Monocytes % (Manual) Abs Neuts (Manual) Lymphocytes # (Manual) Monocytes # (Manual) Platelet Estimate Plt Morphology Comment RBC Morphology Acanthocytes (Spur) Smear Tech's Comments Smear Path Review PT 26.6 H INR 2.3 H APTT 41.3 H O2 Saturation ABG pH at Pt Temp ABG pH (Temp Correct) ABG pCO2 at Pt Temp ABG pCO2 (Temp Corrct ABG pO2 at Pt Temp ABG pO2 (Temp Correct ABG HCO3 ABG Base Excess (Actual) VBG pH VBG pCO2 VBG pO2 VBG HCO3 VBG O2 Saturation VBG Base Excess Sodium 147 H Potassium 3.4 Chloride 106 Carbon Dioxide 36 H Anion Gap 8 L BUN 9 Creatinine 0.61 Estim Creat Clear Calc 134.8 Estimated GFR > 60 POC Glucose Random Glucose 174 H Fasting Glucose Osmolality Lactic Acid Calcium 8.2 L Phosphorus 2.7 Magnesium 2.1 Total Bilirubin 0.7 Direct Bilirubin 0.4 AST 21 ALT 24 Alkaline Phosphatase 60 Ammonia Troponin I High Sens B-Natriuretic Peptide 112 H Total Protein 5.2 L Albumin 2.7 L Procalcitonin TSH Random Cortisol Urine Color Urine Appearance Urine pH Ur Specific [place] Urine Protein Urine Glucose (UA) Urine Ketones Urine Blood Urine Nitrite Ur Leukocyte Esterase Urine RBC Urine WBC Ur Squamous Epith Cells Urine Bacteria Urine Mucus Urine Osmolality Ur Random Sodium Ur Random Potassium Ur Random Chloride Stool Occult Blood Stool Leukocytes, Qual Random Vancomycin Digoxin C. difficile Tox B Gene COVID-19 (JESSY) COVID-19 Clin Com Influenza Type A (PCR) Influenza Type B (PCR) RSV RNA Qual (PCR) SARS-CoV-2 RNA (RT-PCR) Blood Type Antibody Screen Crossmatch 12/19/21 12/19/21 12/19/21 06:00 07:14 10:52 WBC RBC Hgb Hct MCV MCH MCHC RDW Plt Count MPV Immature Gran % (Auto) Neut % (Auto) Lymph % (Auto) [place] % (Auto) Eos % (Auto) Baso % (Auto) Lymph # (Auto) [place] # (Auto) Eos # (Auto) Baso # (Auto) Abs Immat Gran (auto) Absolute Neuts (auto) Absolute Nucleated RBC Nucleated RBC % (auto) Neutrophils % (Manual) Band Neutrophils % Lymphocytes % (Manual) Monocytes % (Manual) Abs Neuts (Manual) Lymphocytes # (Manual) Monocytes # (Manual) Platelet Estimate Plt Morphology Comment RBC Morphology Acanthocytes (Spur) Smear Tech's Comments Smear Path Review PT INR APTT O2 Saturation ABG pH at Pt Temp ABG pH (Temp Correct) ABG pCO2 at Pt Temp ABG pCO2 (Temp Corrct ABG pO2 at Pt Temp ABG pO2 (Temp Correct ABG HCO3 ABG Base Excess (Actual) VBG pH 7.45 H VBG pCO2 58 VBG pO2 62 VBG HCO3 41 H VBG O2 Saturation 88.0 VBG Base Excess 15.2 Sodium Potassium Chloride Carbon Dioxide Anion Gap BUN Creatinine Estim Creat Clear Calc Estimated GFR POC Glucose 154 H 163 H Random Glucose Fasting Glucose Osmolality Lactic Acid Calcium Phosphorus Magnesium Total Bilirubin Direct Bilirubin AST ALT Alkaline Phosphatase Ammonia Troponin I High Sens B-Natriuretic Peptide Total Protein Albumin Procalcitonin TSH Random Cortisol Urine Color Urine Appearance Urine pH Ur Specific [place] Urine Protein Urine Glucose (UA) Urine Ketones Urine Blood Urine Nitrite Ur Leukocyte Esterase Urine RBC Urine WBC Ur Squamous Epith Cells Urine Bacteria Urine Mucus Urine Osmolality Ur Random Sodium Ur Random Potassium Ur Random Chloride Stool Occult Blood Stool Leukocytes, Qual Random Vancomycin Digoxin C. difficile Tox B Gene COVID-19 (JESSY) COVID-19 Clin Com Influenza Type A (PCR) Influenza Type B (PCR) RSV RNA Qual (PCR) SARS-CoV-2 RNA (RT-PCR) Blood Type Antibody Screen Crossmatch 12/19/21 12/19/21 12/20/21 15:57 19:48 06:10 WBC 11.8 H RBC 4.54 Hgb 9.7 L Hct 34.1 L MCV 75.1 L MCH 21.4 L MCHC 28.4 L RDW 28.9 H Plt Count 317 D MPV 10.0 Immature Gran % (Auto) 0.5 H Neut % (Auto) 78.8 H Lymph % (Auto) 11.7 L [place] % (Auto) 4.9 Eos % (Auto) 3.6 Baso % (Auto) 0.5 Lymph # (Auto) 1.4 [place] # (Auto) 0.6 Eos # (Auto) 0.4 Baso # (Auto) 0.1 Abs Immat Gran (auto) 0.06 H Absolute Neuts (auto) 9.3 H Absolute Nucleated RBC 0.000 Nucleated RBC % (auto) 0.0 Neutrophils % (Manual) Band Neutrophils % Lymphocytes % (Manual) Monocytes % (Manual) Abs Neuts (Manual) Lymphocytes # (Manual) Monocytes # (Manual) Platelet Estimate Plt Morphology Comment RBC Morphology Acanthocytes (Spur) Smear Tech's Comments Smear Path Review PT INR APTT O2 Saturation ABG pH at Pt Temp ABG pH (Temp Correct) ABG pCO2 at Pt Temp ABG pCO2 (Temp Corrct ABG pO2 at Pt Temp ABG pO2 (Temp Correct ABG HCO3 ABG Base Excess (Actual) VBG pH VBG pCO2 VBG pO2 VBG HCO3 VBG O2 Saturation VBG Base Excess Sodium Potassium Chloride Carbon Dioxide Anion Gap BUN Creatinine Estim Creat Clear Calc Estimated GFR POC Glucose 146 H 243 H Random Glucose Fasting Glucose Osmolality Lactic Acid Calcium Phosphorus Magnesium Total Bilirubin Direct Bilirubin AST ALT Alkaline Phosphatase Ammonia Troponin I High Sens B-Natriuretic Peptide Total Protein Albumin Procalcitonin TSH Random Cortisol Urine Color Urine Appearance Urine pH Ur Specific [place] Urine Protein Urine Glucose (UA) Urine Ketones Urine Blood Urine Nitrite Ur Leukocyte Esterase Urine RBC Urine WBC Ur Squamous Epith Cells Urine Bacteria Urine Mucus Urine Osmolality Ur Random Sodium Ur Random Potassium Ur Random Chloride Stool Occult Blood Stool Leukocytes, Qual Random Vancomycin Digoxin C. difficile Tox B Gene COVID-19 (JESSY) COVID-19 Clin Com Influenza Type A (PCR) Influenza Type B (PCR) RSV RNA Qual (PCR) SARS-CoV-2 RNA (RT-PCR) Blood Type Antibody Screen Crossmatch 12/20/21 12/20/21 12/20/21 06:10 06:10 06:10 WBC RBC Hgb Hct MCV MCH MCHC RDW Plt Count MPV Immature Gran % (Auto) Neut % (Auto) Lymph % (Auto) [place] % (Auto) Eos % (Auto) Baso % (Auto) Lymph # (Auto) [place] # (Auto) Eos # (Auto) Baso # (Auto) Abs Immat Gran (auto) Absolute Neuts (auto) Absolute Nucleated RBC Nucleated RBC % (auto) Neutrophils % (Manual) Band Neutrophils % Lymphocytes % (Manual) Monocytes % (Manual) Abs Neuts (Manual) Lymphocytes # (Manual) Monocytes # (Manual) Platelet Estimate Plt Morphology Comment RBC Morphology Acanthocytes (Spur) Smear Tech's Comments Smear Path Review PT 24.9 H INR 2.2 H APTT 38.2 H O2 Saturation ABG pH at Pt Temp ABG pH (Temp Correct) ABG pCO2 at Pt Temp ABG pCO2 (Temp Corrct ABG pO2 at Pt Temp ABG pO2 (Temp Correct ABG HCO3 ABG Base Excess (Actual) VBG pH VBG pCO2 VBG pO2 VBG HCO3 VBG O2 Saturation VBG Base Excess Sodium 142 Potassium 3.3 Chloride 99 Carbon Dioxide 37 H Anion Gap 9 L BUN 10 Creatinine 0.55 Estim Creat Clear Calc 149.5 Estimated GFR > 60 POC Glucose Random Glucose 169 H Fasting Glucose Osmolality Lactic Acid Calcium 8.4 Phosphorus 2.9 Magnesium Total Bilirubin 0.8 Direct Bilirubin 0.4 AST 16 ALT 20 Alkaline Phosphatase 64 Ammonia Troponin I High Sens B-Natriuretic Peptide 124 H Total Protein 5.1 L Albumin 2.6 L Procalcitonin TSH Random Cortisol Urine Color Urine Appearance Urine pH Ur Specific [place] Urine Protein Urine Glucose (UA) Urine Ketones Urine Blood Urine Nitrite Ur Leukocyte Esterase Urine RBC Urine WBC Ur Squamous Epith Cells Urine Bacteria Urine Mucus Urine Osmolality Ur Random Sodium Ur Random Potassium Ur Random Chloride Stool Occult Blood Stool Leukocytes, Qual Random Vancomycin Digoxin C. difficile Tox B Gene COVID-19 (JESSY) COVID-19 Clin Com Influenza Type A (PCR) Influenza Type B (PCR) RSV RNA Qual (PCR) SARS-CoV-2 RNA (RT-PCR) Blood Type Antibody Screen Crossmatch 12/20/21 12/20/21 12/20/21 06:14 06:18 07:14 WBC RBC Hgb Hct MCV MCH MCHC RDW Plt Count MPV Immature Gran % (Auto) Neut % (Auto) Lymph % (Auto) [place] % (Auto) Eos % (Auto) Baso % (Auto) Lymph # (Auto) [place] # (Auto) Eos # (Auto) Baso # (Auto) Abs Immat Gran (auto) Absolute Neuts (auto) Absolute Nucleated RBC Nucleated RBC % (auto) Neutrophils % (Manual) Band Neutrophils % Lymphocytes % (Manual) Monocytes % (Manual) Abs Neuts (Manual) Lymphocytes # (Manual) Monocytes # (Manual) Platelet Estimate Plt Morphology Comment RBC Morphology Acanthocytes (Spur) Smear Tech's Comments Smear Path Review PT INR APTT O2 Saturation ABG pH at Pt Temp ABG pH (Temp Correct) ABG pCO2 at Pt Temp ABG pCO2 (Temp Corrct ABG pO2 at Pt Temp ABG pO2 (Temp Correct ABG HCO3 ABG Base Excess (Actual) VBG pH 7.49 H VBG pCO2 53 VBG pO2 56 VBG HCO3 41 H VBG O2 Saturation 85.0 VBG Base Excess 15.5 Sodium Potassium Chloride Carbon Dioxide Anion Gap BUN Creatinine Estim Creat Clear Calc Estimated GFR POC Glucose 172 H Random Glucose Fasting Glucose Osmolality Lactic Acid Calcium Phosphorus Magnesium Total Bilirubin Direct Bilirubin AST ALT Alkaline Phosphatase Ammonia Troponin I High Sens B-Natriuretic Peptide Total Protein Albumin Procalcitonin TSH Random Cortisol Urine Color Urine Appearance Urine pH Ur Specific [place] Urine Protein Urine Glucose (UA) Urine Ketones Urine Blood Urine Nitrite Ur Leukocyte Esterase Urine RBC Urine WBC Ur Squamous Epith Cells Urine Bacteria Urine Mucus Urine Osmolality Ur Random Sodium Ur Random Potassium Ur Random Chloride Stool Occult Blood Stool Leukocytes, Qual Random Vancomycin Digoxin 0.6 L C. difficile Tox B Gene COVID-19 (JESSY) COVID-19 Clin Com Influenza Type A (PCR) Influenza Type B (PCR) RSV RNA Qual (PCR) SARS-CoV-2 RNA (RT-PCR) Blood Type Antibody Screen Crossmatch 12/20/21 12/20/21 12/20/21 10:51 10:56 12:21 WBC RBC Hgb Hct MCV MCH MCHC RDW Plt Count MPV Immature Gran % (Auto) Neut % (Auto) Lymph % (Auto) [place] % (Auto) Eos % (Auto) Baso % (Auto) Lymph # (Auto) [place] # (Auto) Eos # (Auto) Baso # (Auto) Abs Immat Gran (auto) Absolute Neuts (auto) Absolute Nucleated RBC Nucleated RBC % (auto) Neutrophils % (Manual) Band Neutrophils % Lymphocytes % (Manual) Monocytes % (Manual) Abs Neuts (Manual) Lymphocytes # (Manual) Monocytes # (Manual) Platelet Estimate Plt Morphology Comment RBC Morphology Acanthocytes (Spur) Smear Tech's Comments Smear Path Review PT INR APTT O2 Saturation ABG pH at Pt Temp ABG pH (Temp Correct) ABG pCO2 at Pt Temp ABG pCO2 (Temp Corrct ABG pO2 at Pt Temp ABG pO2 (Temp Correct ABG HCO3 ABG Base Excess (Actual) VBG pH 7.47 H VBG pCO2 59 VBG pO2 47 VBG HCO3 44 H VBG O2 Saturation 75.0 VBG Base Excess 17.8 Sodium Potassium Chloride Carbon Dioxide Anion Gap BUN Creatinine Estim Creat Clear Calc Estimated GFR POC Glucose 152 H 152 H Random Glucose Fasting Glucose Osmolality Lactic Acid Calcium Phosphorus Magnesium Total Bilirubin Direct Bilirubin AST ALT Alkaline Phosphatase Ammonia Troponin I High Sens B-Natriuretic Peptide Total Protein Albumin Procalcitonin TSH Random Cortisol Urine Color Urine Appearance Urine pH Ur Specific [place] Urine Protein Urine Glucose (UA) Urine Ketones Urine Blood Urine Nitrite Ur Leukocyte Esterase Urine RBC Urine WBC Ur Squamous Epith Cells Urine Bacteria Urine Mucus Urine Osmolality Ur Random Sodium Ur Random Potassium Ur Random Chloride Stool Occult Blood Stool Leukocytes, Qual Random Vancomycin Digoxin C. difficile Tox B Gene COVID-19 (JESSY) COVID-19 Clin Com Influenza Type A (PCR) Influenza Type B (PCR) RSV RNA Qual (PCR) SARS-CoV-2 RNA (RT-PCR) Blood Type Antibody Screen Crossmatch 12/20/21 12/20/21 12/21/21 16:02 19:28 07:18 WBC RBC Hgb Hct MCV MCH MCHC RDW Plt Count MPV Immature Gran % (Auto) Neut % (Auto) Lymph % (Auto) [place] % (Auto) Eos % (Auto) Baso % (Auto) Lymph # (Auto) [place] # (Auto) Eos # (Auto) Baso # (Auto) Abs Immat Gran (auto) Absolute Neuts (auto) Absolute Nucleated RBC Nucleated RBC % (auto) Neutrophils % (Manual) Band Neutrophils % Lymphocytes % (Manual) Monocytes % (Manual) Abs Neuts (Manual) Lymphocytes # (Manual) Monocytes # (Manual) Platelet Estimate Plt Morphology Comment RBC Morphology Acanthocytes (Spur) Smear Tech's Comments Smear Path Review PT INR APTT O2 Saturation ABG pH at Pt Temp ABG pH (Temp Correct) ABG pCO2 at Pt Temp ABG pCO2 (Temp Corrct ABG pO2 at Pt Temp ABG pO2 (Temp Correct ABG HCO3 ABG Base Excess (Actual) VBG pH VBG pCO2 VBG pO2 VBG HCO3 VBG O2 Saturation VBG Base Excess Sodium Potassium Chloride Carbon Dioxide Anion Gap BUN Creatinine Estim Creat Clear Calc Estimated GFR POC Glucose 111 145 H 140 H Random Glucose Fasting Glucose Osmolality Lactic Acid Calcium Phosphorus Magnesium Total Bilirubin Direct Bilirubin AST ALT Alkaline Phosphatase Ammonia Troponin I High Sens B-Natriuretic Peptide Total Protein Albumin Procalcitonin TSH Random Cortisol Urine Color Urine Appearance Urine pH Ur Specific [place] Urine Protein Urine Glucose (UA) Urine Ketones Urine Blood Urine Nitrite Ur Leukocyte Esterase Urine RBC Urine WBC Ur Squamous Epith Cells Urine Bacteria Urine Mucus Urine Osmolality Ur Random Sodium Ur Random Potassium Ur Random Chloride Stool Occult Blood Stool Leukocytes, Qual Random Vancomycin Digoxin C. difficile Tox B Gene COVID-19 (JESSY) COVID-19 Clin Com Influenza Type A (PCR) Influenza Type B (PCR) RSV RNA Qual (PCR) SARS-CoV-2 RNA (RT-PCR) Blood Type Antibody Screen Crossmatch 12/21/21 12/21/21 12/21/21 10:52 16:11 16:54 WBC RBC Hgb Hct MCV MCH MCHC RDW Plt Count MPV Immature Gran % (Auto) Neut % (Auto) Lymph % (Auto) [place] % (Auto) Eos % (Auto) Baso % (Auto) Lymph # (Auto) [place] # (Auto) Eos # (Auto) Baso # (Auto) Abs Immat Gran (auto) Absolute Neuts (auto) Absolute Nucleated RBC Nucleated RBC % (auto) Neutrophils % (Manual) Band Neutrophils % Lymphocytes % (Manual) Monocytes % (Manual) Abs Neuts (Manual) Lymphocytes # (Manual) Monocytes # (Manual) Platelet Estimate Plt Morphology Comment RBC Morphology Acanthocytes (Spur) Smear Tech's Comments Smear Path Review PT INR APTT O2 Saturation ABG pH at Pt Temp ABG pH (Temp Correct) ABG pCO2 at Pt Temp ABG pCO2 (Temp Corrct ABG pO2 at Pt Temp ABG pO2 (Temp Correct ABG HCO3 ABG Base Excess (Actual) VBG pH VBG pCO2 VBG pO2 VBG HCO3 VBG O2 Saturation VBG Base Excess Sodium Potassium Chloride Carbon Dioxide Anion Gap BUN Creatinine Estim Creat Clear Calc Estimated GFR POC Glucose 277 H 153 H Random Glucose Fasting Glucose Osmolality Lactic Acid Calcium Phosphorus Magnesium Total Bilirubin Direct Bilirubin AST ALT Alkaline Phosphatase Ammonia Troponin I High Sens B-Natriuretic Peptide Total Protein Albumin Procalcitonin TSH Random Cortisol Urine Color Urine Appearance Urine pH Ur Specific [place] Urine Protein Urine Glucose (UA) Urine Ketones Urine Blood Urine Nitrite Ur Leukocyte Esterase Urine RBC Urine WBC Ur Squamous Epith Cells Urine Bacteria Urine Mucus Urine Osmolality Ur Random Sodium Ur Random Potassium Ur Random Chloride Stool Occult Blood Stool Leukocytes, Qual Random Vancomycin Digoxin C. difficile Tox B Gene COVID-19 (JESSY) Negative COVID-19 Clin Com See Note Influenza Type A (PCR) Influenza Type B (PCR) RSV RNA Qual (PCR) SARS-CoV-2 RNA (RT-PCR) Blood Type Antibody Screen Crossmatch 12/21/21 12/22/21 12/22/21 19:20 06:17 07:03 WBC RBC Hgb Hct MCV MCH MCHC RDW Plt Count MPV Immature Gran % (Auto) Neut % (Auto) Lymph % (Auto) [place] % (Auto) Eos % (Auto) Baso % (Auto) Lymph # (Auto) [place] # (Auto) Eos # (Auto) Baso # (Auto) Abs Immat Gran (auto) Absolute Neuts (auto) Absolute Nucleated RBC Nucleated RBC % (auto) Neutrophils % (Manual) Band Neutrophils % Lymphocytes % (Manual) Monocytes % (Manual) Abs Neuts (Manual) Lymphocytes # (Manual) Monocytes # (Manual) Platelet Estimate Plt Morphology Comment RBC Morphology Acanthocytes (Spur) Smear Tech's Comments Smear Path Review PT INR APTT O2 Saturation ABG pH at Pt Temp ABG pH (Temp Correct) ABG pCO2 at Pt Temp ABG pCO2 (Temp Corrct ABG pO2 at Pt Temp ABG pO2 (Temp Correct ABG HCO3 ABG Base Excess (Actual) VBG pH VBG pCO2 VBG pO2 VBG HCO3 VBG O2 Saturation VBG Base Excess Sodium 135 Potassium 4.1 D Chloride 95 L Carbon Dioxide 32 H Anion Gap 12 BUN 8 L Creatinine 0.53 Estim Creat Clear Calc 155.5 Estimated GFR > 60 POC Glucose 139 H 118 H Random Glucose Fasting Glucose Osmolality Lactic Acid Calcium Phosphorus Magnesium Total Bilirubin Direct Bilirubin AST ALT Alkaline Phosphatase Ammonia Troponin I High Sens B-Natriuretic Peptide Total Protein Albumin Procalcitonin TSH Random Cortisol Urine Color Urine Appearance Urine pH Ur Specific [place] Urine Protein Urine Glucose (UA) Urine Ketones Urine Blood Urine Nitrite Ur Leukocyte Esterase Urine RBC Urine WBC Ur Squamous Epith Cells Urine Bacteria Urine Mucus Urine Osmolality Ur Random Sodium Ur Random Potassium Ur Random Chloride Stool Occult Blood Stool Leukocytes, Qual Random Vancomycin Digoxin C. difficile Tox B Gene COVID-19 (JESSY) COVID-19 Clin Com Influenza Type A (PCR) Influenza Type B (PCR) RSV RNA Qual (PCR) SARS-CoV-2 RNA (RT-PCR) Blood Type Antibody Screen Crossmatch 12/22/21 12/22/21 12/22/21 10:59 15:50 19:45 WBC RBC Hgb Hct MCV MCH MCHC RDW Plt Count MPV Immature Gran % (Auto) Neut % (Auto) Lymph % (Auto) [place] % (Auto) Eos % (Auto) Baso % (Auto) Lymph # (Auto) [place] # (Auto) Eos # (Auto) Baso # (Auto) Abs Immat Gran (auto) Absolute Neuts (auto) Absolute Nucleated RBC Nucleated RBC % (auto) Neutrophils % (Manual) Band Neutrophils % Lymphocytes % (Manual) Monocytes % (Manual) Abs Neuts (Manual) Lymphocytes # (Manual) Monocytes # (Manual) Platelet Estimate Plt Morphology Comment RBC Morphology Acanthocytes (Spur) Smear Tech's Comments Smear Path Review PT INR APTT O2 Saturation ABG pH at Pt Temp ABG pH (Temp Correct) ABG pCO2 at Pt Temp ABG pCO2 (Temp Corrct ABG pO2 at Pt Temp ABG pO2 (Temp Correct ABG HCO3 ABG Base Excess (Actual) VBG pH 7.42 VBG pCO2 65 VBG pO2 61 VBG HCO3 43 H VBG O2 Saturation 87.0 VBG Base Excess 16.1 Sodium Potassium Chloride Carbon Dioxide Anion Gap BUN Creatinine Estim Creat Clear Calc Estimated GFR POC Glucose 133 H 136 H Random Glucose Fasting Glucose Osmolality Lactic Acid Calcium Phosphorus Magnesium Total Bilirubin Direct Bilirubin AST ALT Alkaline Phosphatase Ammonia Troponin I High Sens B-Natriuretic Peptide Total Protein Albumin Procalcitonin TSH Random Cortisol Urine Color Urine Appearance Urine pH Ur Specific [place] Urine Protein Urine Glucose (UA) Urine Ketones Urine Blood Urine Nitrite Ur Leukocyte Esterase Urine RBC Urine WBC Ur Squamous Epith Cells Urine Bacteria Urine Mucus Urine Osmolality Ur Random Sodium Ur Random Potassium Ur Random Chloride Stool Occult Blood Stool Leukocytes, Qual Random Vancomycin Digoxin C. difficile Tox B Gene COVID-19 (JESSY) COVID-19 Clin Com Influenza Type A (PCR) Influenza Type B (PCR) RSV RNA Qual (PCR) SARS-CoV-2 RNA (RT-PCR) Blood Type Antibody Screen Crossmatch 12/22/21 12/23/21 12/23/21 19:50 06:57 11:02 WBC RBC Hgb Hct MCV MCH MCHC RDW Plt Count MPV Immature Gran % (Auto) Neut % (Auto) Lymph % (Auto) [place] % (Auto) Eos % (Auto) Baso % (Auto) Lymph # (Auto) [place] # (Auto) Eos # (Auto) Baso # (Auto) Abs Immat Gran (auto) Absolute Neuts (auto) Absolute Nucleated RBC Nucleated RBC % (auto) Neutrophils % (Manual) Band Neutrophils % Lymphocytes % (Manual) Monocytes % (Manual) Abs Neuts (Manual) Lymphocytes # (Manual) Monocytes # (Manual) Platelet Estimate Plt Morphology Comment RBC Morphology Acanthocytes (Spur) Smear Tech's Comments Smear Path Review PT INR APTT O2 Saturation ABG pH at Pt Temp ABG pH (Temp Correct) ABG pCO2 at Pt Temp ABG pCO2 (Temp Corrct ABG pO2 at Pt Temp ABG pO2 (Temp Correct ABG HCO3 ABG Base Excess (Actual) VBG pH VBG pCO2 VBG pO2 VBG HCO3 VBG O2 Saturation VBG Base Excess Sodium Potassium Chloride Carbon Dioxide Anion Gap BUN Creatinine Estim Creat Clear Calc Estimated GFR POC Glucose 138 H 120 H 182 H Random Glucose Fasting Glucose Osmolality Lactic Acid Calcium Phosphorus Magnesium Total Bilirubin Direct Bilirubin AST ALT Alkaline Phosphatase Ammonia Troponin I High Sens B-Natriuretic Peptide Total Protein Albumin Procalcitonin TSH Random Cortisol Urine Color Urine Appearance Urine pH Ur Specific [place] Urine Protein Urine Glucose (UA) Urine Ketones Urine Blood Urine Nitrite Ur Leukocyte Esterase Urine RBC Urine WBC Ur Squamous Epith Cells Urine Bacteria Urine Mucus Urine Osmolality Ur Random Sodium Ur Random Potassium Ur Random Chloride Stool Occult Blood Stool Leukocytes, Qual Random Vancomycin Digoxin C. difficile Tox B Gene COVID-19 (JESSY) COVID-19 Clin Com Influenza Type A (PCR) Influenza Type B (PCR) RSV RNA Qual (PCR) SARS-CoV-2 RNA (RT-PCR) Blood Type Antibody Screen Crossmatch 12/23/21 12/23/21 12/24/21 16:13 19:40 07:14 WBC RBC Hgb Hct MCV MCH MCHC RDW Plt Count MPV Immature Gran % (Auto) Neut % (Auto) Lymph % (Auto) [place] % (Auto) Eos % (Auto) Baso % (Auto) Lymph # (Auto) [place] # (Auto) Eos # (Auto) Baso # (Auto) Abs Immat Gran (auto) Absolute Neuts (auto) Absolute Nucleated RBC Nucleated RBC % (auto) Neutrophils % (Manual) Band Neutrophils % Lymphocytes % (Manual) Monocytes % (Manual) Abs Neuts (Manual) Lymphocytes # (Manual) Monocytes # (Manual) Platelet Estimate Plt Morphology Comment RBC Morphology Acanthocytes (Spur) Smear Tech's Comments Smear Path Review PT INR APTT O2 Saturation ABG pH at Pt Temp ABG pH (Temp Correct) ABG pCO2 at Pt Temp ABG pCO2 (Temp Corrct ABG pO2 at Pt Temp ABG pO2 (Temp Correct ABG HCO3 ABG Base Excess (Actual) VBG pH VBG pCO2 VBG pO2 VBG HCO3 VBG O2 Saturation VBG Base Excess Sodium Potassium Chloride Carbon Dioxide Anion Gap BUN Creatinine Estim Creat Clear Calc Estimated GFR POC Glucose 117 H 119 H 124 H Random Glucose Fasting Glucose Osmolality Lactic Acid Calcium Phosphorus Magnesium Total Bilirubin Direct Bilirubin AST ALT Alkaline Phosphatase Ammonia Troponin I High Sens B-Natriuretic Peptide Total Protein Albumin Procalcitonin TSH Random Cortisol Urine Color Urine Appearance Urine pH Ur Specific [place] Urine Protein Urine Glucose (UA) Urine Ketones Urine Blood Urine Nitrite Ur Leukocyte Esterase Urine RBC Urine WBC Ur Squamous Epith Cells Urine Bacteria Urine Mucus Urine Osmolality Ur Random Sodium Ur Random Potassium Ur Random Chloride Stool Occult Blood Stool Leukocytes, Qual Random Vancomycin Digoxin C. difficile Tox B Gene COVID-19 (JESSY) COVID-19 Clin Com Influenza Type A (PCR) Influenza Type B (PCR) RSV RNA Qual (PCR) SARS-CoV-2 RNA (RT-PCR) Blood Type Antibody Screen Crossmatch 02/10/0412/24/21 12/24/21 11:40 16:49 20:24 WBC RBC Hgb Hct MCV MCH MCHC RDW Plt Count MPV Immature Gran % (Auto) Neut % (Auto) Lymph % (Auto) [place] % (Auto) Eos % (Auto) Baso % (Auto) Lymph # (Auto) [place] # (Auto) Eos # (Auto) Baso # (Auto) Abs Immat Gran (auto) Absolute Neuts (auto) Absolute Nucleated RBC Nucleated RBC % (auto) Neutrophils % (Manual) Band Neutrophils % Lymphocytes % (Manual) Monocytes % (Manual) Abs Neuts (Manual) Lymphocytes # (Manual) Monocytes # (Manual) Platelet Estimate Plt Morphology Comment RBC Morphology Acanthocytes (Spur) Smear Tech's Comments Smear Path Review PT INR APTT O2 Saturation ABG pH at Pt Temp ABG pH (Temp Correct) ABG pCO2 at Pt Temp ABG pCO2 (Temp Corrct ABG pO2 at Pt Temp ABG pO2 (Temp Correct ABG HCO3 ABG Base Excess (Actual) VBG pH VBG pCO2 VBG pO2 VBG HCO3 VBG O2 Saturation VBG Base Excess Sodium Potassium Chloride Carbon Dioxide Anion Gap BUN Creatinine Estim Creat Clear Calc Estimated GFR POC Glucose 133 H 135 H 112 Random Glucose Fasting Glucose Osmolality Lactic Acid Calcium Phosphorus Magnesium Total Bilirubin Direct Bilirubin AST ALT Alkaline Phosphatase Ammonia Troponin I High Sens B-Natriuretic Peptide Total Protein Albumin Procalcitonin TSH Random Cortisol Urine Color Urine Appearance Urine pH Ur Specific [place] Urine Protein Urine Glucose (UA) Urine Ketones Urine Blood Urine Nitrite Ur Leukocyte Esterase Urine RBC Urine WBC Ur Squamous Epith Cells Urine Bacteria Urine Mucus Urine Osmolality Ur Random Sodium Ur Random Potassium Ur Random Chloride Stool Occult Blood Stool Leukocytes, Qual Random Vancomycin Digoxin C. difficile Tox B Gene COVID-19 (JESSY) COVID-19 Clin Com Influenza Type A (PCR) Influenza Type B (PCR) RSV RNA Qual (PCR) SARS-CoV-2 RNA (RT-PCR) Blood Type Antibody Screen Crossmatch 12/25/21 12/25/21 12/25/21 06:40 06:40 07:30 WBC 11.6 H RBC 4.05 L Hgb 9.0 L Hct 30.8 L MCV 76.0 L MCH 22.2 L MCHC 29.2 L RDW 28.9 H Plt Count 245 MPV 10.0 Immature Gran % (Auto) 2.0 H Neut % (Auto) 76.6 H Lymph % (Auto) 9.8 L [place] % (Auto) 9.6 Eos % (Auto) 1.6 Baso % (Auto) 0.4 Lymph # (Auto) 1.1 L [place] # (Auto) 1.1 Eos # (Auto) 0.2 Baso # (Auto) 0.1 Abs Immat Gran (auto) 0.23 H Absolute Neuts (auto) 8.9 H Absolute Nucleated RBC 0.020 H Nucleated RBC % (auto) 0.2 Neutrophils % (Manual) Band Neutrophils % Lymphocytes % (Manual) Monocytes % (Manual) Abs Neuts (Manual) Lymphocytes # (Manual) Monocytes # (Manual) Platelet Estimate Plt Morphology Comment RBC Morphology Acanthocytes (Spur) Smear Tech's Comments Smear Path Review PT INR APTT O2 Saturation ABG pH at Pt Temp ABG pH (Temp Correct) ABG pCO2 at Pt Temp ABG pCO2 (Temp Corrct ABG pO2 at Pt Temp ABG pO2 (Temp Correct ABG HCO3 ABG Base Excess (Actual) VBG pH VBG pCO2 VBG pO2 VBG HCO3 VBG O2 Saturation VBG Base Excess Sodium 137 Potassium 3.6 Chloride 95 L Carbon Dioxide 35 H Anion Gap 11 L BUN 6 L Creatinine 0.50 Estim Creat Clear Calc 164.6 Estimated GFR > 60 POC Glucose 133 H Random Glucose Fasting Glucose 129 H Osmolality Lactic Acid Calcium 8.0 L Phosphorus Magnesium Total Bilirubin 0.8 Direct Bilirubin AST 14 ALT 11 Alkaline Phosphatase 85 D Ammonia Troponin I High Sens B-Natriuretic Peptide Total Protein 5.2 L Albumin 2.6 L Procalcitonin TSH Random Cortisol Urine Color Urine Appearance Urine pH Ur Specific [place] Urine Protein Urine Glucose (UA) Urine Ketones Urine Blood Urine Nitrite Ur Leukocyte Esterase Urine RBC Urine WBC Ur Squamous Epith Cells Urine Bacteria Urine Mucus Urine Osmolality Ur Random Sodium Ur Random Potassium Ur Random Chloride Stool Occult Blood Stool Leukocytes, Qual Random Vancomycin Digoxin C. difficile Tox B Gene COVID-19 (JESSY) COVID-19 Clin Com Influenza Type A (PCR) Influenza Type B (PCR) RSV RNA Qual (PCR) SARS-CoV-2 RNA (RT-PCR) Blood Type Antibody Screen Crossmatch 12/25/21 12/25/21 12/25/21 12:47 15:55 19:57 WBC RBC Hgb Hct MCV MCH MCHC RDW Plt Count MPV Immature Gran % (Auto) Neut % (Auto) Lymph % (Auto) [place] % (Auto) Eos % (Auto) Baso % (Auto) Lymph # (Auto) [place] # (Auto) Eos # (Auto) Baso # (Auto) Abs Immat Gran (auto) Absolute Neuts (auto) Absolute Nucleated RBC Nucleated RBC % (auto) Neutrophils % (Manual) Band Neutrophils % Lymphocytes % (Manual) Monocytes % (Manual) Abs Neuts (Manual) Lymphocytes # (Manual) Monocytes # (Manual) Platelet Estimate Plt Morphology Comment RBC Morphology Acanthocytes (Spur) Smear Tech's Comments Smear Path Review PT INR APTT O2 Saturation ABG pH at Pt Temp ABG pH (Temp Correct) ABG pCO2 at Pt Temp ABG pCO2 (Temp Corrct ABG pO2 at Pt Temp ABG pO2 (Temp Correct ABG HCO3 ABG Base Excess (Actual) VBG pH VBG pCO2 VBG pO2 VBG HCO3 VBG O2 Saturation VBG Base Excess Sodium Potassium Chloride Carbon Dioxide Anion Gap BUN Creatinine Estim Creat Clear Calc Estimated GFR POC Glucose 119 H 144 H 151 H Random Glucose Fasting Glucose Osmolality Lactic Acid Calcium Phosphorus Magnesium Total Bilirubin Direct Bilirubin AST ALT Alkaline Phosphatase Ammonia Troponin I High Sens B-Natriuretic Peptide Total Protein Albumin Procalcitonin TSH Random Cortisol Urine Color Urine Appearance Urine pH Ur Specific [place] Urine Protein Urine Glucose (UA) Urine Ketones Urine Blood Urine Nitrite Ur Leukocyte Esterase Urine RBC Urine WBC Ur Squamous Epith Cells Urine Bacteria Urine Mucus Urine Osmolality Ur Random Sodium Ur Random Potassium Ur Random Chloride Stool Occult Blood Stool Leukocytes, Qual Random Vancomycin Digoxin C. difficile Tox B Gene COVID-19 (JESSY) COVID-19 Clin Com Influenza Type A (PCR) Influenza Type B (PCR) RSV RNA Qual (PCR) SARS-CoV-2 RNA (RT-PCR) Blood Type Antibody Screen Crossmatch 12/26/21 12/26/21 12/26/21 06:05 07:21 11:24 WBC RBC Hgb Hct MCV MCH MCHC RDW Plt Count MPV Immature Gran % (Auto) Neut % (Auto) Lymph % (Auto) [place] % (Auto) Eos % (Auto) Baso % (Auto) Lymph # (Auto) [place] # (Auto) Eos # (Auto) Baso # (Auto) Abs Immat Gran (auto) Absolute Neuts (auto) Absolute Nucleated RBC Nucleated RBC % (auto) Neutrophils % (Manual) Band Neutrophils % Lymphocytes % (Manual) Monocytes % (Manual) Abs Neuts (Manual) Lymphocytes # (Manual) Monocytes # (Manual) Platelet Estimate Plt Morphology Comment RBC Morphology Acanthocytes (Spur) Smear Tech's Comments Smear Path Review PT INR APTT O2 Saturation ABG pH at Pt Temp ABG pH (Temp Correct) ABG pCO2 at Pt Temp ABG pCO2 (Temp Corrct ABG pO2 at Pt Temp ABG pO2 (Temp Correct ABG HCO3 ABG Base Excess (Actual) VBG pH VBG pCO2 VBG pO2 VBG HCO3 VBG O2 Saturation VBG Base Excess Sodium 138 Potassium 3.9 Chloride 95 L Carbon Dioxide 36 H Anion Gap 11 L BUN 6 L Creatinine 0.51 Estim Creat Clear Calc 161.3 Estimated GFR > 60 POC Glucose 138 H 140 H Random Glucose Fasting Glucose 141 H Osmolality Lactic Acid Calcium 8.3 L Phosphorus Magnesium Total Bilirubin 0.9 Direct Bilirubin AST 12 ALT 9 Alkaline Phosphatase 86 Ammonia Troponin I High Sens B-Natriuretic Peptide Total Protein 5.3 L Albumin 2.7 L Procalcitonin TSH Random Cortisol Urine Color Urine Appearance Urine pH Ur Specific [place] Urine Protein Urine Glucose (UA) Urine Ketones Urine Blood Urine Nitrite Ur Leukocyte Esterase Urine RBC Urine WBC Ur Squamous Epith Cells Urine Bacteria Urine Mucus Urine Osmolality Ur Random Sodium Ur Random Potassium Ur Random Chloride Stool Occult Blood Stool Leukocytes, Qual Random Vancomycin Digoxin C. difficile Tox B Gene COVID-19 (JESSY) COVID-19 Clin Com Influenza Type A (PCR) Influenza Type B (PCR) RSV RNA Qual (PCR) SARS-CoV-2 RNA (RT-PCR) Blood Type Antibody Screen Crossmatch 12/26/21 12/26/21 12/27/21 15:43 19:58 06:51 WBC RBC Hgb Hct MCV MCH MCHC RDW Plt Count MPV Immature Gran % (Auto) Neut % (Auto) Lymph % (Auto) [place] % (Auto) Eos % (Auto) Baso % (Auto) Lymph # (Auto) [place] # (Auto) Eos # (Auto) Baso # (Auto) Abs Immat Gran (auto) Absolute Neuts (auto) Absolute Nucleated RBC Nucleated RBC % (auto) Neutrophils % (Manual) Band Neutrophils % Lymphocytes % (Manual) Monocytes % (Manual) Abs Neuts (Manual) Lymphocytes # (Manual) Monocytes # (Manual) Platelet Estimate Plt Morphology Comment RBC Morphology Acanthocytes (Spur) Smear Tech's Comments Smear Path Review PT INR APTT O2 Saturation ABG pH at Pt Temp ABG pH (Temp Correct) ABG pCO2 at Pt Temp ABG pCO2 (Temp Corrct ABG pO2 at Pt Temp ABG pO2 (Temp Correct ABG HCO3 ABG Base Excess (Actual) VBG pH VBG pCO2 VBG pO2 VBG HCO3 VBG O2 Saturation VBG Base Excess Sodium 142 Potassium 4.0 Chloride 97 Carbon Dioxide 37 H Anion Gap 12 BUN 7 L Creatinine 0.50 Estim Creat Clear Calc 164.6 Estimated GFR > 60 POC Glucose 139 H 116 H Random Glucose Fasting Glucose 123 H Osmolality Lactic Acid Calcium 8.5 Phosphorus Magnesium Total Bilirubin 0.8 Direct Bilirubin AST 12 ALT 9 Alkaline Phosphatase 86 Ammonia Troponin I High Sens B-Natriuretic Peptide Total Protein 5.4 L Albumin 2.6 L Procalcitonin TSH Random Cortisol Urine Color Urine Appearance Urine pH Ur Specific [place] Urine Protein Urine Glucose (UA) Urine Ketones Urine Blood Urine Nitrite Ur Leukocyte Esterase Urine RBC Urine WBC Ur Squamous Epith Cells Urine Bacteria Urine Mucus Urine Osmolality Ur Random Sodium Ur Random Potassium Ur Random Chloride Stool Occult Blood Stool Leukocytes, Qual Random Vancomycin Digoxin C. difficile Tox B Gene COVID-19 (JESSY) COVID-19 Clin Com Influenza Type A (PCR) Influenza Type B (PCR) RSV RNA Qual (PCR) SARS-CoV-2 RNA (RT-PCR) Blood Type Antibody Screen Crossmatch 12/27/21 12/27/21 12/27/21 06:51 07:05 11:10 WBC 9.8 RBC 3.99 L Hgb 8.9 L Hct 31.4 L MCV 78.7 L MCH 22.3 L MCHC 28.3 L RDW 28.9 H Plt Count 248 MPV 10.3 Immature Gran % (Auto) 2.6 H Neut % (Auto) 75.0 H Lymph % (Auto) 8.9 L [place] % (Auto) 10.2 Eos % (Auto) 2.9 Baso % (Auto) 0.4 Lymph # (Auto) 0.9 L [place] # (Auto) 1.0 Eos # (Auto) 0.3 Baso # (Auto) 0.0 Abs Immat Gran (auto) 0.25 H Absolute Neuts (auto) 7.3 Absolute Nucleated RBC 0.020 H Nucleated RBC % (auto) 0.2 Neutrophils % (Manual) Band Neutrophils % Lymphocytes % (Manual) Monocytes % (Manual) Abs Neuts (Manual) Lymphocytes # (Manual) Monocytes # (Manual) Platelet Estimate Plt Morphology Comment RBC Morphology Acanthocytes (Spur) Smear Tech's Comments Smear Path Review PT INR APTT O2 Saturation ABG pH at Pt Temp ABG pH (Temp Correct) ABG pCO2 at Pt Temp ABG pCO2 (Temp Corrct ABG pO2 at Pt Temp ABG pO2 (Temp Correct ABG HCO3 ABG Base Excess (Actual) VBG pH VBG pCO2 VBG pO2 VBG HCO3 VBG O2 Saturation VBG Base Excess Sodium Potassium Chloride Carbon Dioxide Anion Gap BUN Creatinine Estim Creat Clear Calc Estimated GFR POC Glucose 120 H 154 H Random Glucose Fasting Glucose Osmolality Lactic Acid Calcium Phosphorus Magnesium Total Bilirubin Direct Bilirubin AST ALT Alkaline Phosphatase Ammonia Troponin I High Sens B-Natriuretic Peptide Total Protein Albumin Procalcitonin TSH Random Cortisol Urine Color Urine Appearance Urine pH Ur Specific [place] Urine Protein Urine Glucose (UA) Urine Ketones Urine Blood Urine Nitrite Ur Leukocyte Esterase Urine RBC Urine WBC Ur Squamous Epith Cells Urine Bacteria Urine Mucus Urine Osmolality Ur Random Sodium Ur Random Potassium Ur Random Chloride Stool Occult Blood Stool Leukocytes, Qual Random Vancomycin Digoxin C. difficile Tox B Gene COVID-19 (JESSY) COVID-19 Clin Com Influenza Type A (PCR) Influenza Type B (PCR) RSV RNA Qual (PCR) SARS-CoV-2 RNA (RT-PCR) Blood Type Antibody Screen Crossmatch 12/27/21 12/27/21 12/28/21 15:58 20:00 06:09 WBC 12.4 H RBC 4.36 Hgb 9.7 L Hct 34.3 L MCV 78.7 L MCH 22.2 L MCHC 28.3 L RDW 28.9 H Plt Count 256 MPV 10.0 Immature Gran % (Auto) 2.4 H Neut % (Auto) 78.4 H Lymph % (Auto) 7.9 L [place] % (Auto) 9.0 Eos % (Auto) 1.9 Baso % (Auto) 0.4 Lymph # (Auto) 1.0 L [place] # (Auto) 1.1 Eos # (Auto) 0.2 Baso # (Auto) 0.1 Abs Immat Gran (auto) 0.30 H Absolute Neuts (auto) 9.7 H Absolute Nucleated RBC 0.020 H Nucleated RBC % (auto) 0.2 Neutrophils % (Manual) Band Neutrophils % Lymphocytes % (Manual) Monocytes % (Manual) Abs Neuts (Manual) Lymphocytes # (Manual) Monocytes # (Manual) Platelet Estimate Plt Morphology Comment RBC Morphology Acanthocytes (Spur) Smear Tech's Comments Smear Path Review PT INR APTT O2 Saturation ABG pH at Pt Temp ABG pH (Temp Correct) ABG pCO2 at Pt Temp ABG pCO2 (Temp Corrct ABG pO2 at Pt Temp ABG pO2 (Temp Correct ABG HCO3 ABG Base Excess (Actual) VBG pH VBG pCO2 VBG pO2 VBG HCO3 VBG O2 Saturation VBG Base Excess Sodium Potassium Chloride Carbon Dioxide Anion Gap BUN Creatinine Estim Creat Clear Calc Estimated GFR POC Glucose 214 H 131 H Random Glucose Fasting Glucose Osmolality Lactic Acid Calcium Phosphorus Magnesium Total Bilirubin Direct Bilirubin AST ALT Alkaline Phosphatase Ammonia Troponin I High Sens B-Natriuretic Peptide Total Protein Albumin Procalcitonin TSH Random Cortisol Urine Color Urine Appearance Urine pH Ur Specific [place] Urine Protein Urine Glucose (UA) Urine Ketones Urine Blood Urine Nitrite Ur Leukocyte Esterase Urine RBC Urine WBC Ur Squamous Epith Cells Urine Bacteria Urine Mucus Urine Osmolality Ur Random Sodium Ur Random Potassium Ur Random Chloride Stool Occult Blood Stool Leukocytes, Qual Random Vancomycin Digoxin C. difficile Tox B Gene COVID-19 (JESSY) COVID-19 Clin Com Influenza Type A (PCR) Influenza Type B (PCR) RSV RNA Qual (PCR) SARS-CoV-2 RNA (RT-PCR) Blood Type Antibody Screen Crossmatch 12/28/21 12/28/21 12/28/21 06:09 07:17 10:48 WBC RBC Hgb Hct MCV MCH MCHC RDW Plt Count MPV Immature Gran % (Auto) Neut % (Auto) Lymph % (Auto) [place] % (Auto) Eos % (Auto) Baso % (Auto) Lymph # (Auto) [place] # (Auto) Eos # (Auto) Baso # (Auto) Abs Immat Gran (auto) Absolute Neuts (auto) Absolute Nucleated RBC Nucleated RBC % (auto) Neutrophils % (Manual) Band Neutrophils % Lymphocytes % (Manual) Monocytes % (Manual) Abs Neuts (Manual) Lymphocytes # (Manual) Monocytes # (Manual) Platelet Estimate Plt Morphology Comment RBC Morphology Acanthocytes (Spur) Smear Tech's Comments Smear Path Review PT INR APTT O2 Saturation ABG pH at Pt Temp ABG pH (Temp Correct) ABG pCO2 at Pt Temp ABG pCO2 (Temp Corrct ABG pO2 at Pt Temp ABG pO2 (Temp Correct ABG HCO3 ABG Base Excess (Actual) VBG pH VBG pCO2 VBG pO2 VBG HCO3 VBG O2 Saturation VBG Base Excess Sodium 143 Potassium 4.2 Chloride 99 Carbon Dioxide 37 H Anion Gap 11 L BUN 11 D Creatinine 0.52 Estim Creat Clear Calc 158.3 Estimated GFR > 60 POC Glucose 134 H 119 H Random Glucose Fasting Glucose 129 H Osmolality Lactic Acid Calcium 8.2 L Phosphorus Magnesium Total Bilirubin 0.7 Direct Bilirubin AST 14 ALT 9 Alkaline Phosphatase 92 Ammonia Troponin I High Sens B-Natriuretic Peptide Total Protein 5.3 L Albumin 2.5 L Procalcitonin TSH Random Cortisol Urine Color Urine Appearance Urine pH Ur Specific [place] Urine Protein Urine Glucose (UA) Urine Ketones Urine Blood Urine Nitrite Ur Leukocyte Esterase Urine RBC Urine WBC Ur Squamous Epith Cells Urine Bacteria Urine Mucus Urine Osmolality Ur Random Sodium Ur Random Potassium Ur Random Chloride Stool Occult Blood Stool Leukocytes, Qual Random Vancomycin Digoxin C. difficile Tox B Gene COVID-19 (JESSY) COVID-19 Clin Com Influenza Type A (PCR) Influenza Type B (PCR) RSV RNA Qual (PCR) SARS-CoV-2 RNA (RT-PCR) Blood Type Antibody Screen Crossmatch Airway Mallampati Class: III Neck ROM: Full Loose/Missing/Broken Teeth: Yes Heart: irregular Lungs: distant breath sounds Assessment and Plan Assessment Anesthesia Assessment: Anesthesia Plan Discussed (With Guardian) and Chart Reviewed Final Anesthetic Review Family History of Problems with Anesthesia: Unobtainable History of Problems with Anesthesia: No (Patient denies prior anesthesia ) NPO: Yes ASA Class: IV Final Preanesthetic Review: Meds/Allgs Chart Reviewed, Consent Obtained/Reviewed (court appointed guardian ) and Anes Risks/Benef Reviewed Patient Risk: High Procedure Risk: Intermediate Anesthetic Plan Anesthetic Plan: MAC: Disposition: Inp. Admit - Standard Bed
--- NOTE | 2021-12-28 12:28 | PC.NURSE ---
pt arrived to [facility] at 1120. pt yelling out I need to go, I need to pee. Reassured pt she has mehta catheter and to just go. pt insisted she has to use the bathroom. Mehta catheter upon assessment not draining, tubing blocked at site of mehta closest to balloon inserted into patient with thick yellow drainage. odorous smell coming from mehta and vaginal area. Pt complaining of discomfort of mehta. bladder scanned for 847. Mehta catheter pulled and placed in red bag. Ramírez Hniojosa, employment law specialist notified and specimen given to her.
--- NOTE | 2021-12-28 13:27 | P.PNIM_ITS ---
Subjective Subjective Date of Service: 12/28/21 Interval History: no acute issues overnight Review of Systems denies chest pain Breathing improved ...still mild SOB Denies nausea vomiting diarrhea Physical Exam Vital Signs: Vital Signs: Last Vital Signs Temp 98.4 F 12/28/21 11:25 Pulse 94 12/28/21 11:25 Resp 18 12/28/21 11:25 BP 153/59 H 12/28/21 11:25 Pulse Ox 99 12/28/21 11:25 Oxygen Flow Rate 30 12/02/21 00:00 BMI result Body Mass Index 54.5 Const: Other: no acute distress Resp: Other: scattered expiratory wheezes all martinez Cardio: Other: irregularly irregular; no S4 positive S1-S2 no S3 without murmurs or gallops Skin: Other: stage III sacral decub Extrem: Other: no edema bilaterally Objective Data Active Medications Acetaminophen (Acetaminophen 325 Mg Tablet) 650 mg PO Q6H PRN PRN Reason: Fever Last Admin: 12/27/21 20:53 Dose: 650 mg Documented by: CHRISTIANO Apixaban (Apixaban 5 Mg Tablet) 5 mg PO BID [facility] Last Admin: 12/27/21 20:53 Dose: 5 mg Documented by: CHRISTIANO Atorvastatin Calcium (Atorvastatin Calcium 10 Mg Tablet) 10 mg PO DAILY [facility] Last Admin: 12/27/21 09:37 Dose: 10 mg Documented by: AMANDA Digoxin (Digoxin 0.25 Mg Tablet) 0.25 mg PO DAILY [facility] Last Admin: 12/27/21 09:37 Dose: 0.25 mg Documented by: AMANDA Sodium Chloride (Ns) 1,000 mls @ 100 mls/hr IVCONT .Q10H [facility] Last Admin: 12/28/21 05:17 Dose: 100 mls/hr Documented by: CHRISTIANO Insulin Human Lispro (Insulin Lispro 100 Unit/Ml 3 Ml Vial) 0 unit SUBCUT QIDACHS [facility]; Protocol Last Admin: 12/28/21 11:19 Dose: Not Given Documented by: LISSA Non-Admin Reason: No Insulin Coverage Metoprolol Tartrate (Metoprolol Tartrate 25 Mg Tablet) 75 mg PO BID [facility]; Protocol Last Admin: 12/27/21 20:53 Dose: 75 mg Documented by: CHRISTIANO Morphine Sulfate (Morphine Sulfate 4 Mg/Ml Cartridge) 4 mg IVPUSH ONCE PRN; Pro tocol PRN Reason: Pain, Severe (Pain Scale 7-10) Last Admin: 12/27/21 09:38 Dose: 4 mg Documented by: AMANDA Nystatin (Nystatin Powder 15 Gm Bottle) 1 appl TOPICAL TID [facility]; Protocol Last Admin: 12/28/21 09:40 Dose: 1 appl Documented by: LISSA Ondansetron HCl (Ondansetron Hcl 4 Mg/2 Ml Vial) 4 mg IVPUSH Q8H PRN PRN Reason: Nausea Last Admin: 12/26/21 13:26 Dose: 4 mg Documented by: CHRISTIANO Pharmacy Consult (Consult Rx Perform Med Rec) 1 each MISCELLANE ONCE PRN PRN Reason: Consult order Sodium Chloride (0.9 % Sodium Chloride Flush 3 Ml Syringe) [facility] Last Admin: 12/28/21 09:40 Dose: 3 ml Documented by: LISSA Spironolactone (Spironolactone 25 Mg Tablet) 25 mg PO DAILY [facility]; Protocol Last Admin: 12/27/21 09:37 Dose: 25 mg Documented by: AMANDA Labs CBC & Chem 7: 12/28/21 06:09 12/28/21 06:09 Labs: Laboratory Results - last 24 hr 12/27/21 12/27/21 12/28/21 15:58 20:00 06:09 MCV 78.7 L MCH 22.2 L MCHC 28.3 L RDW 28.9 H Plt Count 256 MPV 10.0 Immature Gran % (Auto) 2.4 H Neut % (Auto) 78.4 H Lymph % (Auto) 7.9 L Walsh % (Auto) 9.0 Eos % (Auto) 1.9 Baso % (Auto) 0.4 Lymph # (Auto) 1.0 L Walsh # (Auto) 1.1 Eos # (Auto) 0.2 Baso # (Auto) 0.1 Abs Immat Gran (auto) 0.30 H Absolute Neuts (auto) 9.7 H Absolute Nucleated RBC 0.020 H Nucleated RBC % (auto) 0.2 Anion Gap Estim Creat Clear Calc Estimated GFR POC Glucose 214 H 131 H Fasting Glucose Calcium Total Bilirubin AST ALT Alkaline Phosphatase Total Protein Albumin 12/28/21 12/28/21 12/28/21 06:09 07:17 10:48 MCV MCH MCHC RDW Plt Count MPV Immature Gran % (Auto) Neut % (Auto) Lymph % (Auto) Walsh % (Auto) Eos % (Auto) Baso % (Auto) Lymph # (Auto) Walsh # (Auto) Eos # (Auto) Baso # (Auto) Abs Immat Gran (auto) Absolute Neuts (auto) Absolute Nucleated RBC Nucleated RBC % (auto) Anion Gap 11 L Estim Creat Clear Calc 158.3 Estimated GFR > 60 POC Glucose 134 H 119 H Fasting Glucose 129 H Calcium 8.2 L Total Bilirubin 0.7 AST 14 ALT 9 Alkaline Phosphatase 92 Total Protein 5.3 L Albumin 2.5 L Assessment and Plan (1) Acute respiratory failure: Status: Acute (2) Sacral decubitus ulcer: Status: Acute (3) Atrial fibrillation with RVR: Status: Acute Plan 66-year-old lady with underlying alcoholic cirrhosis, dementia, schizoaffective disorder a admitted with acute? 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 On 12/06 she again developped respiratory failure nearly obtunded with no gag reflex and was transfered yet again to ICU and again was intubated and mechanically ventilated? and extubated again and transfer back to medical floor on 12/15 1.Acute respiratory failure secondary to angioedema requiring intubation and ventilatory support for airway protection intubated on 11/27,? extubated 11/29/2021, reintubated on 12/06 and extubated 12/13. Respiratory failure of of multifactorial etiology including COPD,? possible pneumonia and heart failure and Pneumonia. -overnight oximetry..will need overnight O2/likely CPaP -will arrange at [facility] 2.Stage III coccyx decub - worsening despite Vac. - Dr Jiménez tot take to OR this afternoon 3.Chronic AFib -Rate conttrol adequate on Metoprolol 75 bid/Digoxin, - adjust as indicated 4.Chronic diastolic CHF ( well compensated) - Continue HCTZ/Aldactone 5.COPD exacerbation -Bronchodilators/Steroids - titrate O2. Overnight oximetry 6.DMII - Acceeptable control on current therapies 7. Schizoaffective disorder - restart outpatieent [facility] Full Code Quality Stroke Does the patient have a stroke diagnosis?: No VTE Prior VTE?: No VTE Risk Level:: Medical - moderate - high VTE Device Contraindication: Treatment Not Indicated VTE Drug Contraindication: N/A - Med Ordered
--- NOTE | 2021-12-28 13:41 | P.OP_ITS ---
Operative Note Operative Note Date of Service: 12/28/21 Narrative: Preoperative diagnosis:Sacral decubitus ulcer Postoperative diagnosis:same Procedure:Wide Debridement sacral decubitus ulcer Surgeon: Julio Jiménez MD Manager Operational: Wanda Bah PA-C Anesthesia:MAC Indications for procedure:Large sacral decubitus ulcer with necrotic tissue at the wound base, 15 x 15 xm by 3 cm deep Operative findings:Viable tissue at wound base; debrided skin, subcutaneous tissue and muscle Specimen: sacral decubitus debrided tissue Estimated blood loss: 20 mls Complications: none Procedure details: Patient was brought to the OR and left in her bed. She was administered light sedation in then placed in a left lateral decubitus position. The large sacral decubitus ulcer was prepped with Betadine and draped in a sterile fashion. Local anesthesia consisting of 1% lidocaine with epinephrine was then infiltrated circumferentially around the ulceration. A large area of necrosis was noted in the central wound measuring approximately 15 x 15 cm. A 15 blade scalpel was then used to excise necrotic skin, subcutaneous tissue, and muscle down to viable healthy bleeding tissue. No bone was encountered during the debridement. Debrided tissue measured 15 x 15 x 3 cm. The wounds were then packed with Betadine and saline soaked dressings, wet to dry followed by ABD pads. The patient tolerated the procedure well. At the conclusion of the procedure a Arias catheter was inserted. Approximately 900 mL of dark, cloudy urine was evacuated. The patient was awoken in the OR, and transported to PACU in stable condition.
[2021-12-28] MEDS: fentaNYL citrate/PF 100 MCG/2 ML VIAL 25 MCG IVPUSH ×3 (13:55→14:05)
[2021-12-28] MEDS: Atorvastatin Calcium 10 MG TABLET PO (16:12)
[2021-12-28] MEDS: Digoxin 0.25 MG TABLET PO (16:12)
[2021-12-28] MEDS: Spironolactone 25 MG TABLET PO (16:12)
[2021-12-28 17:03] LABS: Glucose, Whole Blood 125 mg/dL (60-115)
[2021-12-28 20:04] LABS: Glucose, Whole Blood 121 mg/dL (60-115)
[2021-12-28] MEDS: Acetaminophen 325 MG TABLET 650 MG PO (21:15)
[2021-12-28] MEDS: Metoprolol Tartrate 25 MG TABLET 75 MG PO (21:15)
[2021-12-28] MEDS: Apixaban 5 MG TABLET PO (21:16)
[2021-12-29] MEDS: 0.9 % Sodium Chloride 1,000 ML 100 ML IVCONT ×2 (01:41→17:57)
[2021-12-29 04:00] VITALS: BP 159/69; PULSE 84; RESP 18; TEMP 36.8; O2SAT 99
[2021-12-29 06:24] LABS: MANUAL DIFF FLAG NO
[2021-12-29 06:33] LABS: Basophils Percent Auto 0.3 % (0-2); Eosinophils Absolute Auto 0.3 X10*3/uL (0.0-0.4); Eosinophils Percent Auto 1.9 % (0-4); Hematocrit 29.7 % (37.0-47.0); Hemoglobin 8.4 g/dl (12.0-16.0); Imm Gran Abs Auto 0.24 X10*3/uL (0.00-0.03); Imm Gran Pct Auto 1.9 % (0.0-0.4); Lymphocytes Absolute Auto 1.1 X10*3/uL (1.2-4.9); Lymphocytes Percent Auto 8.8 % (20-40); Mean Corpuscular HGB Conc 28.3 g/dl (31.0-35.0); Mean Corpuscular Hemoglobin 22.6 pg (27.0-33.0); Mean Corpuscular Volume 79.8 fL (80.0-98.0); Mean Platelet Volume 10.4 fL (9.4-12.3); Monocytes Percent Auto 7.4 % (2-11); Neutrophils Absolute Auto 10.2 x10*3/uL (2.0-8.3); Neutrophils Percent Auto 79.7 % (45-73); Platelet Count 281 X10*3/uL (160-400); Red Blood Count 3.72 X10*6/uL (4.20-5.50); Red Cell Distribution Width 28.5 % (11.0-16.0); White Blood Count 12.9 X10*3/uL (4.8-10.8)
[2021-12-29 07:02] LABS: Glucose, Whole Blood 115 mg/dL (60-115)
[2021-12-29 07:06] LABS: Alanine Aminotransferase 10 U/L (0-31); Albumin Level 2.3 g/dL (3.5-5.0); Alkaline Phosphatase 77 U/L (39-117); Anion Gap 10 (12-20); Aspartate Amino Transferase 17 U/L (5-31); Bilirubin Total 0.4 mg/dL (0.0-1.0); Blood Urea Nitrogen 8 mg/dL (9-16); Calcium 7.9 mg/dL (8.4-10.2); Carbon Dioxide 38 mmol/L (22-29); Chloride 100 mmol/L (96-108); Creatinine Clr Calc Pharmacy 182.9; Estimated Glomerular Filt Rate > 60; Glucose Fasting 122 mg/dL (60-99); Potassium 3.9 mmol/L (3.3-5.1); Sodium 144 mmol/L (135-145)
[2021-12-29 07:42] VITALS: BP 169/75; PULSE 81; RESP 24; TEMP 37.2; O2SAT 100
--- NOTE | 2021-12-29 08:00 | HO.POSTANES ---
Post Anesthesia Evaluation Post Anesthesia Evaluation Vital Signs: Vital Signs Temp Pulse Resp BP Pulse Ox 12/29/21 07:42 98.9 F 81 24 H 169/75 H 100 12/29/21 04:00 98.3 F 84 18 159/69 H 99 12/28/21 23:57 98.5 F 74 20 143/65 H 99 12/28/21 23:49 98.5 F 74 18 143/65 H 99 Anesthesia: Monitored Mental Status: Awake Pain Control: Satisfactory Nausea/Vomiting: None Hydration: Adequate Anesthesia-Related Issues: No Anes. Related Issues
[2021-12-29] MEDS: Acetaminophen 325 MG TABLET 650 MG PO (08:42)
[2021-12-29] MEDS: Atorvastatin Calcium 10 MG TABLET PO (08:42)
[2021-12-29] MEDS: Metoprolol Tartrate 25 MG TABLET 75 MG PO ×2 (08:43→21:40)
[2021-12-29] MEDS: Digoxin 0.25 MG TABLET PO (08:43)
[2021-12-29] MEDS: Spironolactone 25 MG TABLET PO (08:43)
[2021-12-29] MEDS: Apixaban 5 MG TABLET PO ×2 (08:43→21:40)
[2021-12-29] MEDS: Nystatin Powder 15 GM BOTTLE 1 APPL TOPICAL ×3 (09:00→21:41)
[2021-12-29] MEDS: Multivitamin TABLET 1 TAB PO (09:01)
--- NOTE | 2021-12-29 09:56 | MHC.CLN ---
F/U PO INTAKE 75% X2 MEALS DIET RX: 2000DM PUREED WITH NT LIQ-APPROPRIATE IF PO INTAKE DECLINES; CONSIDER LIBERALIZING TO REGULAR TO INCREASE VARIETY WILL RE-START ENSURE BID AND LELAND BID TO PROVIDE 860KCALS, 45G PROTEIN FOR INCREASE KCALS AND PROMOTE WOUND HEALING BLADE BENDER FURNACE TENDER CONTINUES TO ATTEMPT TO WORK WITH PT CONTINUE STRICT PO MONITORING
--- NOTE | 2021-12-29 09:57 | MHC.INPTTRAN ---
Addendum entered by Candace Perry RN 12/29/21 10:36: Has F/C, changed on , draining parvez urine. Also has rectal tube for stool incont. Sm amt brown stool in bag. Needs 2 assist to repos. Calls out freq. Original Note: 02 on at 3L via N/C. cristino diet, Has puree and thickened liquids. Takes meds in applesauce, crushed. Dsg changed today. Is on air loss bed.
--- NOTE | 2021-12-29 10:01 | PC.NURSE ---
Wound assessment completed today. Patient now has a Stage 4 pressure injury after debridement on 12/28, subcutaneous tissue and muscle showing. Wound is bandaged and patient will return to [facility] today. At [facility] a wound vac will be applied and changed . Recommended patient go to wound clinic once a week for follow ups. She also has blisters to left thigh covered with foam dressings. Her perineal area and inner thighs have rash and raw areas. Triad being applied.
[2021-12-29 11:00] LABS: Glucose, Whole Blood 163 mg/dL (60-115)
[2021-12-29 11:15] VITALS: BP 167/70; PULSE 67; RESP 20; TEMP 36.4; O2SAT 96
[2021-12-29 11:55] LABS: COVID-19 Test Negative (Negative)
[2021-12-29] MEDS: Insulin Lispro 100 UNIT/ML 3 ML VIAL SUBCUT ×2 (12:04→17:00)
--- NOTE | 2021-12-29 12:23 | MHC.SL.SWA ---
Speech Pathologist Impression: Risk of Aspiration Oralpharyngeal Dysphagia Risk of Aspiration Due to: Poor PO Intake Hx of Recent Extubation Reduced Cognition Dysphasia Diet Status: Upgrade Liquid Consistency and Strategies for Safe Swallow: Liquid Intake Recommendation: Thin Liquid Intake Strategies: Small Sips No Straws Solid Food Consistency: Dietary Recommendations: Grnd/Mech Altered (NDD2) Recommend UPGRADE to GROUND/MECH ALTERED (NDD2) solids and THIN liquids, pills CRUSHED in PUREE. [facility] updated diet order in [facility]- RN, RD, and MD notified of upgrade. Pt will need full assist for all meals w/close supervision for signs of aspiration. Continue aspiration precautions. Pt may need more frequent smaller meals if endurance for eating continues to be limited. PREC[facility]ON[facility] will continue to follow. Oral Medication Intake: Crushed with Puree Compensatory Strategies and Precautions to be Taken for Safe Swallow: Sitting Upright (90 deg) No Straw Small Bites and Sips Alternate Liquids/Solids Rate of Ingestion Change Oral Check Supervision While Eating and Drinking for Safe Swallow: Total Assistance Swallowing Recommended Treatments: Compens. Strategy Educat. Recommendation for Speech: Re-assess for potential upgrade Autism Tutor Clinican/Clinical Fellow: No Supervisory Statement: I have reviewed and agree with the student/clinical fellow's documentation: N/A Speech Language Pathologist: Lisa Bolton M.A., [facility]
--- NOTE | 2021-12-29 13:45 | PM.PNGS ---
Subjective Subjective Date of Service: 12/29/21 Interval history: Late entry: Patient reports pain at sacral wound. Mehta catheter draining clear urine. Rectal mehta with more solid stool. Physical Exam Vital Signs: Vital Signs: Last Vital Signs Temp 98.6 F 12/30/21 07:28 Pulse 86 12/30/21 07:28 Resp 18 12/30/21 07:28 BP 165/77 H 12/30/21 07:28 Pulse Ox 92 12/30/21 07:28 Oxygen Flow Rate 3 12/29/21 13:53 BMI result Body Mass Index 54.5 Const: Other: Awake and talking, answering questions. Resp: Effort & Inspection: normal respiratory effort and no respiratory distress Back/Spine/Pelvis: Other: Some granulation tissue noted at the margins of the wound. Central wound is fatty with no significant bleeding noted today. No granulation tissue noted in the central wound. No new necrosis however. Wounds dressed with Hydrofera blue sponge, as per wound care nurse. Objective Data Active Medications Acetaminophen (Acetaminophen 325 Mg Tablet) 650 mg PO Q6H PRN PRN Reason: Fever Last Admin: 12/29/21 08:42 Dose: 650 mg Documented by: FRED Apixaban (Apixaban 5 Mg Tablet) 5 mg PO BID [facility] Last Admin: 12/29/21 21:40 Dose: 5 mg Documented by: GORAN Atorvastatin Calcium (Atorvastatin Calcium 10 Mg Tablet) 10 mg PO DAILY [facility] Last Admin: 12/29/21 08:42 Dose: 10 mg Documented by: FRED Digoxin (Digoxin 0.25 Mg Tablet) 0.25 mg PO DAILY [facility] Last Admin: 12/29/21 08:43 Dose: 0.25 mg Documented by: FRED Fentanyl (Fentanyl Citrate/Pf 100 Mcg/2 Ml Vial) 25 mcg IVPUSH Q5M PRN; Protocol PRN Reason: Pain, Moderate (Pain Scale 4-6 Last Admin: 12/28/21 14:05 Dose: 25 mcg Documented by: TUAN Sodium Chloride (Ns) 1,000 mls @ 100 mls/hr IVCONT .Q10H [facility] Last Admin: 12/30/21 03:19 Dose: 100 mls/hr Documented by: GORAN Insulin Human Lispro (Insulin Lispro 100 Unit/Ml 3 Ml Vial) 0 unit SUBCUT QIDACHS [facility]; Protocol Last Admin: 12/29/21 21:42 Dose: Not Given Documented by: GORAN Non-Admin Reason: No Insulin Coverage Metoprolol Tartrate (Metoprolol Tartrate 25 Mg Tablet) 75 mg PO BID [facility]; Protocol Last Admin: 12/29/21 21:40 Dose: 75 mg Documented by: GORAN Morphine Sulfate (Morphine Sulfate 4 Mg/Ml Cartridge) 4 mg IVPUSH ONCE PRN; Protocol PRN Reason: Pain, Severe (Pain Scale 7-10) Last Admin: 12/27/21 09:38 Dose: 4 mg Documented by: AMANDA Morphine Sulfate (Morphine Sulfate 2 Mg/Ml Cartridge) 2 mg IVPUSH Q2H PRN; Protocol PRN Reason: severe pain Last Admin: 12/30/21 00:27 Dose: 2 mg Documented by: GORAN Multivitamins/Vitamin C (Multivitamin Tablet) 1 tab PO DAILY [facility] Last Admin: 12/29/21 09:01 Dose: 1 tab Documented by: FRED Nystatin (Nystatin Powder 15 Gm Bottle) 1 appl TOPICAL TID [facility]; Protocol Last Admin: 12/29/21 21:41 Dose: 1 appl Documented by: GORAN Ondansetron HCl (Ondansetron Hcl 4 Mg/2 Ml Vial) 4 mg IVPUSH Q8H PRN PRN Reason: Nausea Last Admin: 12/26/21 13:26 Dose: 4 mg Documented by: CHRISTIANO Oxycodone HCl (Oxycodone Hcl Immed Release 5 Mg Tablet) 5 mg PO Q6H PRN PRN Reason: moderate pain Pharmacy Consult (Consult Rx Perform Med Rec) 1 each MISCELLANE ONCE PRN PRN Reason: Consult order Sodium Chloride (0.9 % Sodium Chloride Flush 3 Ml Syringe) 3 ml IVFLUSH QSHIFT [facility] Last Admin: 12/29/21 21:41 Dose: 3 ml Documented by: GORAN Spironolactone (Spironolactone 25 Mg Tablet) 25 mg PO DAILY [facility]; Protocol Last Admin: 12/29/21 08:43 Dose: 25 mg Documented by: FRED Labs CBC & Chem 7: 12/30/21 06:23 12/30/21 06:23 Labs: Laboratory Results - last 24 hr 12/29/21 12/29/21 12/29/21 10:53 11:30 16:12 MCV MCH MCHC RDW Plt Count MPV Immature Gran % (Auto) Neut % (Auto) Lymph % (Auto) [place] % (Auto) Eos % (Auto) Baso % (Auto) Lymph # (Auto) [place] # (Auto) Eos # (Auto) Baso # (Auto) Abs Immat Gran (auto) Absolute Neuts (auto) Absolute Nucleated RBC Nucleated RBC % (auto) Anion Gap Estim Creat Clear Calc Estimated GFR POC Glucose 163 H 158 H Fasting Glucose Calcium Total Bilirubin AST ALT Alkaline Phosphatase Total Protein Albumin COVID-19 (JESSY) Negative COVID-19 Clin Com See Note 12/29/21 12/30/21 12/30/21 20:26 06:23 06:23 MCV 78.6 L MCH 22.4 L MCHC 28.6 L RDW 28.8 H Plt Count 303 MPV 9.8 Immature Gran % (Auto) 4.3 H Neut % (Auto) 75.9 H Lymph % (Auto) 10.8 L [place] % (Auto) 6.6 Eos % (Auto) 1.8 Baso % (Auto) 0.6 Lymph # (Auto) 1.5 [place] # (Auto) 0.9 Eos # (Auto) 0.3 Baso # (Auto) 0.1 Abs Immat Gran (auto) 0.58 H Absolute Neuts (auto) 10.3 H Absolute Nucleated RBC 0.000 Nucleated RBC % (auto) 0.0 Anion Gap 9 L Estim Creat Clear Calc 178.9 Estimated GFR > 60 POC Glucose 107 Fasting Glucose 109 H Calcium 8.2 L Total Bilirubin 0.6 AST 12 ALT 6 Alkaline Phosphatase 83 Total Protein 5.3 L Albumin 2.6 L COVID-19 (JESSY) COVID-19 Clin Com Procedures Date of Service Date of Service: 12/29/21 Progress Note: A&P Assessment and plan (1) Sacral decubitus ulcer: Status: Acute Assessment and Plan: Wounds re-examined today (12/29/2021) with wound care nurse. No necrotic tissue identified and margins of the wound have some new granulation tissue noted. Patient would benefit from wound VAC placement. If she is to stay in the hospital wound VAC should be placed now however if she is soon to be transported to a nursing facility, VAC placement can be held until after transport. It may be best to remove the rectal Mehta now that her bowels are more solid, especially if a wound VAC is in place. Patient must have pressure reducing measures in place including air mattress, and rotation from side the side keep pressure off the midline. Fall Risk Details Current Medications: Current Medications Acetaminophen (Acetaminophen 325 Mg Tablet) 650 mg PO Q6H PRN PRN Reason: Fever Last Admin: 12/29/21 08:42 Dose: 650 mg Documented by: Apixaban (Apixaban 5 Mg Tablet) 5 mg PO BID [facility] Last Admin: 12/29/21 21:40 Dose: 5 mg Documented by: Atorvastatin Calcium (Atorvastatin Calcium 10 Mg Tablet) 10 mg PO DAILY [facility] Last Admin: 12/29/21 08:42 Dose: 10 mg Documented by: Digoxin (Digoxin 0.25 Mg Tablet) 0.25 mg PO DAILY [facility] Last Admin: 12/29/21 08:43 Dose: 0.25 mg Documented by: Fentanyl (Fentanyl Citrate/Pf 100 Mcg/2 Ml Vial) 25 mcg IVPUSH Q5M PRN; Protocol PRN Reason: Pain, Moderate (Pain Scale 4-6 Last Admin: 12/28/21 14:05 Dose: 25 mcg Documented by: Sodium Chloride (Ns) 1,000 mls @ 100 mls/hr IVCONT .Q10H [facility] Last Admin: 12/30/21 03:19 Dose: 100 mls/hr Documented by: Insulin Human Lispro (Insulin Lispro 100 Unit/Ml 3 Ml Vial) 0 unit SUBCUT QIDACHS [facility]; Protocol Last Admin: 12/29/21 21:42 Dose: Not Given Documented by: Metoprolol Tartrate (Metoprolol Tartrate 25 Mg Tablet) 75 mg PO BID [facility]; Protocol Last Admin: 12/29/21 21:40 Dose: 75 mg Documented by: Morphine Sulfate (Morphine Sulfate 4 Mg/Ml Cartridge) 4 mg IVPUSH ONCE PRN; Protocol PRN Reason: Pain, Severe (Pain Scale 7-10) Last Admin: 12/27/21 09:38 Dose: 4 mg Documented by: Morphine Sulfate (Morphine Sulfate 2 Mg/Ml Cartridge) 2 mg IVPUSH Q2H PRN; Protocol PRN Reason: severe pain Last Admin: 12/30/21 00:27 Dose: 2 mg Documented by: Multivitamins/Vitamin C (Multivitamin Tablet) 1 tab PO DAILY [facility] Last Admin: 12/29/21 09:01 Dose: 1 tab Documented by: Nystatin (Nystatin Powder 15 Gm Bottle) 1 appl TOPICAL TID [facility]; Protocol Last Admin: 12/29/21 21:41 Dose: 1 appl Documented by: Ondansetron HCl (Ondansetron Hcl 4 Mg/2 Ml Vial) 4 mg IVPUSH Q8H PRN PRN Reason: Nausea Last Admin: 12/26/21 13:26 Dose: 4 mg Documented by: Oxycodone HCl (Oxycodone Hcl Immed Release 5 Mg Tablet) 5 mg PO Q6H PRN PRN Reason: moderate pain Pharmacy Consult (Consult Rx Perform Med Rec) 1 each MISCELLANE ONCE PRN PRN Reason: Consult order Sodium Chloride (0.9 % Sodium Chloride Flush 3 Ml Syringe) 3 ml IVFLUSH QSHIFT [facility] Last Admin: 12/29/21 21:41 Dose: 3 ml Documented by: Spironolactone (Spironolactone 25 Mg Tablet) 25 mg PO DAILY [facility]; Protocol Last Admin: 12/29/21 08:43 Dose: 25 mg Documented by: Time Spent With Patient Time: Total time spent is greater than 50% in coordination of care (as documented) at patient's floor/unit and/or counseling patient: Time with patient: 15 - 24 minutes Quality Stroke Does the patient have a stroke diagnosis?: No VTE Prior VTE?: No VTE Risk Level:: Medical - moderate - high VTE Device Contraindication: Treatment Not Indicated VTE Drug Contraindication: N/A - Med Ordered
[2021-12-29 13:53] VITALS: O2SAT 96
--- NOTE | 2021-12-29 14:55 | MHC.CM.PN ---
DP return to [facility]. [facility] rep Abdiel, reports that equipment and education will not be provided until [facility] settles previous bill. Spoke with YANDEL PRATT. She is aware of the situation. She is not sure where they are in the process. Text message to MDs and CM leadership. Dr Hogan has spoken with the college administrator. They are actively working to correct the problem. The Patient requires the Wound Vac for Healing per MD. The wound is very large and will not heal sans Wound Vac. No further info has been received.
[2021-12-29 15:19] VITALS: BP 177/77; PULSE 83; RESP 13; TEMP 36.7; O2SAT 95
--- NOTE | 2021-12-29 16:01 | P.PNIM_ITS ---
Subjective Subjective Date of Service: 12/29/21 Interval History: POD#1 debridement plan wound VAC tomorrow at [facility] no dyspnea no nausea Review of Systems Review of Systems: Yes all other systems are reviewed and are negative Physical Exam Vital Signs: Vital Signs: Last Vital Signs Temp 98.0 F 12/29/21 15:19 Pulse 83 12/29/21 15:19 Resp 13 12/29/21 15:19 BP 177/77 H 12/29/21 15:19 Pulse Ox 95 12/29/21 15:19 Oxygen Flow Rate 3 12/29/21 13:53 BMI result Body Mass Index 54.5 Gen: in no acute distress HEENT: sclera anicteric, moist mucus membranes Neck: supple Lungs: clear to auscultation bilaterally Heart: irregular, no murmurs Abd: soft, non-tender, non-distended Ext: no edema Skin: warm/well-perfused, large stage 3 sacral decubitus ulcer Neuro: alert and oriented x3, no focal findings Psych: appropriate affect Objective Data Active Medications Acetaminophen (Acetaminophen 325 Mg Tablet) 650 mg PO Q6H PRN PRN Reason: Fever Last Admin: 12/29/21 08:42 Dose: 650 mg Documented by: FRED Apixaban (Apixaban 5 Mg Tablet) 5 mg PO BID [facility] Last Admin: 12/29/21 08:43 Dose: 5 mg Documented by: FRED Atorvastatin Calcium (Atorvastatin Calcium 10 Mg Tablet) 10 mg PO DAILY [facility] Last Admin: 12/29/21 08:42 Dose: 10 mg Documented by: FRED Digoxin (Digoxin 0.25 Mg Tablet) 0.25 mg PO DAILY [facility] Last Admin: 12/29/21 08:43 Dose: 0.25 mg Documented by: FRED Fentanyl (Fentanyl Citrate/Pf 100 Mcg/2 Ml Vial) 25 mcg IVPUSH Q5M PRN; Protocol PRN Reason: Pain, Moderate (Pain Scale 4-6 Last Admin: 12/28/21 14:05 Dose: 25 mcg Documented by: TUAN Sodium Chloride (Ns) 1,000 mls @ 100 mls/hr IVCONT .Q10H [facility] Last Infusion: 12/29/21 12:07 Dose: 0 mls/hr Documented by: FRED Insulin Human Lispro (Insulin Lispro 100 Unit/Ml 3 Ml Vial) 0 unit SUBCUT QIDACHS [facility]; Protocol Last Admin: 12/29/21 12:04 Dose: 4 unit Documented by: FRED Metoprolol Tartrate (Metoprolol Tartrate 25 Mg Tablet) 75 mg PO BID [facility]; Protocol Last Admin: 12/29/21 08:43 Dose: 75 mg Documented by: FRED Morphine Sulfate (Morphine Sulfate 4 Mg/Ml Cartridge) 4 mg IVPUSH ONCE PRN; Protocol PRN Reason: Pain, Severe (Pain Scale 7-10) Last Admin: 12/27/21 09:38 Dose: 4 mg Documented by: AMANDA Multivitamins/Vitamin C (Multivitamin Tablet) 1 tab PO DAILY [facility] Last Admin: 12/29/21 09:01 Dose: 1 tab Documented by: FRED Nystatin (Nystatin Powder 15 Gm Bottle) 1 appl TOPICAL TID [facility]; Protocol Last Admin: 12/29/21 09:00 Dose: 1 appl Documented by: FRED Ondansetron HCl (Ondansetron Hcl 4 Mg/2 Ml Vial) 4 mg IVPUSH Q8H PRN PRN Reason: Nausea Last Admin: 12/26/21 13:26 Dose: 4 mg Documented by: CHRISTIANO Pharmacy Consult (Consult Rx Perform Med Rec) 1 each MISCELLANE ONCE PRN PRN Reason: Consult order Sodium Chloride (0.9 % Sodium Chloride Flush 3 Ml Syringe) 3 ml IVFLUSH QSHIFT [facility] Last Admin: 12/29/21 08:43 Dose: Not Given Documented by: FRED Non-Admin Reason: IV Running Spironolactone (Spironolactone 25 Mg Tablet) 25 mg PO DAILY [facility]; Protocol Last Admin: 12/29/21 08:43 Dose: 25 mg Documented by: FRED Labs CBC & Chem 7: 12/29/21 06:01 12/29/21 06:01 Labs: Laboratory Results - last 24 hr 12/28/21 12/28/21 12/29/21 16:57 19:49 06:01 MCV 79.8 L MCH 22.6 L MCHC 28.3 L RDW 28.5 H Plt Count 281 MPV 10.4 Immature Gran % (Auto) 1.9 H Neut % (Auto) 79.7 H Lymph % (Auto) 8.8 L [place] % (Auto) 7.4 Eos % (Auto) 1.9 Baso % (Auto) 0.3 Lymph # (Auto) 1.1 L [place] # (Auto) 1.0 Eos # (Auto) 0.3 Baso # (Auto) 0.0 Abs Immat Gran (auto) 0.24 H Absolute Neuts (auto) 10.2 H Absolute Nucleated RBC 0.000 Nucleated RBC % (auto) 0.0 Anion Gap Estim Creat Clear Calc Estimated GFR POC Glucose 125 H 121 H Fasting Glucose Calcium Total Bilirubin AST ALT Alkaline Phosphatase Total Protein Albumin COVID-19 (JESSY) COVID-19 Clin Com 12/29/21 12/29/21 12/29/21 06:01 06:55 10:53 MCV MCH MCHC RDW Plt Count MPV Immature Gran % (Auto) Neut % (Auto) Lymph % (Auto) [place] % (Auto) Eos % (Auto) Baso % (Auto) Lymph # (Auto) [place] # (Auto) Eos # (Auto) Baso # (Auto) Abs Immat Gran (auto) Absolute Neuts (auto) Absolute Nucleated RBC Nucleated RBC % (auto) Anion Gap 10 L Estim Creat Clear Calc 182.9 Estimated GFR > 60 POC Glucose 115 163 H Fasting Glucose 122 H Calcium 7.9 L Total Bilirubin 0.4 AST 17 ALT 10 Alkaline Phosphatase 77 Total Protein 5.0 L Albumin 2.3 L COVID-19 (JESSY) COVID-19 Clin Com 12/29/21 11:30 MCV MCH MCHC RDW Plt Count MPV Immature Gran % (Auto) Neut % (Auto) Lymph % (Auto) [place] % (Auto) Eos % (Auto) Baso % (Auto) Lymph # (Auto) [place] # (Auto) Eos # (Auto) Baso # (Auto) Abs Immat Gran (auto) Absolute Neuts (auto) Absolute Nucleated RBC Nucleated RBC % (auto) Anion Gap Estim Creat Clear Calc Estimated GFR POC Glucose Fasting Glucose Calcium Total Bilirubin AST ALT Alkaline Phosphatase Total Protein Albumin COVID-19 (JESSY) Negative COVID-19 Clin Com See Note Assessment and Plan (1) Acute respiratory failure: Status: Acute (2) Sacral decubitus ulcer: Status: Acute (3) Atrial fibrillation with RVR: Status: Acute Plan hospital d#35 66-year-old lady from [facility] with underlying alcoholic cirrhosis, dementia, schizoaffective disorder a admitted with acute?exacerbation of underlying conges tive heart failure further complicated by AFib with RVR, COPD exacerbation and development of angioedema requiring intubation for ventilatory support on 11/27, extubated 11/29/2021--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 On 12/06 she again developed respiratory failure nearly obtunded with no gag reflex and was transferred yet again to ICU and again was intubated and m echanically ventilated? and extubated again 12/13 and transfer back to medical floor on 12/15 # Acute respiratory failure secondary to angioedema requiring intubation and ventilatory support for airway protection intubated on 11/27,? extubated 11/29/2021, reintubated on 12/06 and extubated 12/13. Respiratory failure of of multifactorial etiology including COPD,heart failure, and PNA on background of likely CPAP -overnight oximetry for likely CPAP need to be arranged at [facility] # Stage III coccygeal decubitus ulcer - POD#1 debridement - VAC to be placed tomorrow at [facility] + changed qTuThSa with [facility]/u # AF - rate-controlled on metoprolol + digoxin - anticoagulated with apixaban # HFpEF, [id number] - continue HCTZ, spironolactone # COPD exacerbation - nebulizer treatments; weaned off steroids # DM2 - correction-dose lispro # schizoaffective disorder - restart medications upon discharge # VTE ppx - apixaban Quality Stroke Does the patient have a stroke diagnosis?: No VTE Prior VTE?: No VTE Risk Level:: Medical - moderate - high VTE Device Contraindication: Treatment Not Indicated VTE Drug Contraindication: N/A - Med Ordered
[2021-12-29 16:38] LABS: Glucose, Whole Blood 158 mg/dL (60-115)
[2021-12-29] MEDS: Morphine Sulfate 2 MG/ML CARTRIDGE IVPUSH (17:55)
[2021-12-29] MEDS: 0.9 % Sodium Chloride Flush 3 ML SYRINGE IVFLUSH ×2 (17:56→21:41)
[2021-12-29 19:14] VITALS: BP 150/63; PULSE 85; RESP 14; TEMP 37; O2SAT 93
[2021-12-29 20:30] LABS: Glucose, Whole Blood 107 mg/dL (60-115)
[2021-12-30] VITALS (12 sets, daily range): BP systolic 126–165; BP diastolic 51–85; PULSE 72–93; RESP 16–43; TEMP 35.6–37; O2SAT 56–95
[2021-12-30] MEDS: Morphine Sulfate 2 MG/ML CARTRIDGE IVPUSH ×2 (00:27→11:57)
[2021-12-30] MEDS: 0.9 % Sodium Chloride 1,000 ML 100 ML IVCONT ×2 (03:19→18:06)
[2021-12-30 06:44] LABS: MANUAL DIFF FLAG NO
[2021-12-30 06:49] LABS: Basophils Absolute Auto 0.1 X10*3/uL (0.0-0.2); Basophils Percent Auto 0.6 % (0-2); Eosinophils Absolute Auto 0.3 X10*3/uL (0.0-0.4); Eosinophils Percent Auto 1.8 % (0-4); Hematocrit 30.8 % (37.0-47.0); Hemoglobin 8.8 g/dl (12.0-16.0); Imm Gran Abs Auto 0.58 X10*3/uL (0.00-0.03); Imm Gran Pct Auto 4.3 % (0.0-0.4); Lymphocytes Absolute Auto 1.5 X10*3/uL (1.2-4.9); Lymphocytes Percent Auto 10.8 % (20-40); Mean Corpuscular HGB Conc 28.6 g/dl (31.0-35.0); Mean Corpuscular Hemoglobin 22.4 pg (27.0-33.0); Mean Corpuscular Volume 78.6 fL (80.0-98.0); Mean Platelet Volume 9.8 fL (9.4-12.3); Monocytes Absolute Auto 0.9 X10*3/uL (0.1-1.2); Monocytes Percent Auto 6.6 % (2-11); Neutrophils Absolute Auto 10.3 x10*3/uL (2.0-8.3); Neutrophils Percent Auto 75.9 % (45-73); Platelet Count 303 X10*3/uL (160-400); Red Blood Count 3.92 X10*6/uL (4.20-5.50); Red Cell Distribution Width 28.8 % (11.0-16.0); White Blood Count 13.6 X10*3/uL (4.8-10.8)
[2021-12-30 07:14] LABS: Alanine Aminotransferase 6 U/L (0-31); Albumin Level 2.6 g/dL (3.5-5.0); Alkaline Phosphatase 83 U/L (39-117); Anion Gap 9 (12-20); Aspartate Amino Transferase 12 U/L (5-31); Bilirubin Total 0.6 mg/dL (0.0-1.0); Blood Urea Nitrogen 7 mg/dL (9-16); Calcium 8.2 mg/dL (8.4-10.2); Carbon Dioxide 39 mmol/L (22-29); Chloride 100 mmol/L (96-108); Creatinine Clr Calc Pharmacy 178.9; Estimated Glomerular Filt Rate > 60; Glucose Fasting 109 mg/dL (60-99); Potassium 3.6 mmol/L (3.3-5.1); Sodium 144 mmol/L (135-145); Total Protein 5.3 g/dL (6.5-8.0)
[2021-12-30 07:53] LABS: Glucose, Whole Blood 106 mg/dL (60-115)
[2021-12-30] MEDS: 0.9 % Sodium Chloride Flush 3 ML SYRINGE IVFLUSH ×3 (09:05→21:53)
[2021-12-30] MEDS: Spironolactone 25 MG TABLET PO (09:05)
[2021-12-30] MEDS: Digoxin 0.25 MG TABLET PO (09:05)
[2021-12-30] MEDS: Metoprolol Tartrate 25 MG TABLET 75 MG PO ×2 (09:05→21:46)
[2021-12-30] MEDS: Atorvastatin Calcium 10 MG TABLET PO (09:05)
[2021-12-30] MEDS: Multivitamin TABLET 1 TAB PO (09:05)
[2021-12-30] MEDS: Apixaban 5 MG TABLET PO ×2 (09:05→21:46)
[2021-12-30] MEDS: Nystatin Powder 15 GM BOTTLE 1 APPL TOPICAL ×3 (09:05→21:46)
[2021-12-30 11:12] LABS: Glucose, Whole Blood 118 mg/dL (60-115)
--- NOTE | 2021-12-30 11:20 | MHC.SL.SWA ---
Speech Pathologist Impression: Risk of Aspiration Oralpharyngeal Dysphagia Risk of Aspiration Due to: Poor PO Intake Hx of Recent Extubation Reduced Cognition Dysphasia Diet Status: Downgrade Liquid Consistency and Strategies for Safe Swallow: Liquid Intake Recommendation: Thin Liquid Intake Strategies: Small Sips No Straws Solid Food Consistency: Dietary Recommendations: Grnd/Mech Altered (NDD2) Additional Modifications to Solid Foods: Recommend PUREED (NDD1) solids and HONEY THICK liquids, pills CRUSHED in PUREE. Patient requires 1:1 assistance feeding. Recommend strict aspiration precautions and close monitoring during meals. [employer] message sent to RN, RD, MD. TRAVEL COORDINATOR will continue to follow. Oral Medication Intake: Crushed with Puree Compensatory Strategies and Precautions to be Taken for Safe Swallow: Sitting Upright (90 deg) No Straw Small Bites and Sips Alternate Liquids/Solids Rate of Ingestion Change Oral Check Supervision While Eating and Drinking for Safe Swallow: Total Assistance Foods to Avoid: Swallowing Recommended Treatments: Compens. Strategy Educat. Recommendation for Speech: Inpatient Speech Therapy Comment: Pt will need full assist for all meals w/close supervision for signs of aspiration. Continue aspiration precautions. Pt may need more frequent smaller meals if endurance for eating continues to be limited. Frequency/Duration: M-F Date Range for Service Req: Timeline to reassess: Marketing Services Manager Clinican/Clinical Fellow: No Supervisory Statement: I have reviewed and agree with the student/clinical fellow's documentation: N/A Speech Language Pathologist: Lynne Barahona M.A., CCC-TRAVEL COORDINATOR
--- NOTE | 2021-12-30 11:25 | PC.NURSE ---
Wound assessment completed today. Patient has a stage 4 pressure injury to coccyx/bilateral buttocks. A wound vac was placed this morning and functioning properly, no leakage. Patient was placed on left lateral side with a wedge placed behind her back. Patient was also placed on a Sizewise pulsating air bed. Patient has blisters to right thigh covered with foam dressing. Triad was applied to glen area and around anal area with an ABD pad placed under rectal tube to absorb leakage. Pillow placed in between knees.
[2021-12-30] MEDS: Acetaminophen 325 MG TABLET 650 MG PO (11:57)
--- NOTE | 2021-12-30 13:34 | HO.PM.IMPN ---
Subjective Subjective Date of Service: 12/30/21 Interval History: Wound VAC placed this AM No N/V No chest pain Pulled off O2 and became cyanotic, SaO2 down to 50s Placed on BiPAP, fiO2 100% titrated down to 30% Review of Systems Review of Systems: Yes all other systems are reviewed and are negative Physical Exam Vital Signs: Vital Signs: Last Vital Signs Temp 97.4 F 12/30/21 11:07 Pulse 93 12/30/21 11:07 Resp 43 H 12/30/21 12:49 BP 143/51 H 12/30/21 11:07 Pulse Ox 94 12/30/21 11:07 Oxygen Flow Rate 3 12/29/21 13:53 BMI result Body Mass Index 54.5 Gen: comfortable on BiPAP HEENT: sclera anicteric, moist mucus membranes Neck: supple Lungs: diminished bilaterally Heart: irregular, no murmurs Abd: soft, non-tender, non-distended, obese with pannus, rectal tube in place Ext: no edema Skin: warm/well-perfused, very large stage 4 sacral decubitus ulcer at least 15cm in diameter Neuro: alert Psych: impaired insight Objective Data Active Medications Acetaminophen (Acetaminophen 325 Mg Tablet) 650 mg PO Q6H PRN PRN Reason: Fever Last Admin: 12/30/21 11:57 Dose: 650 mg Documented by: CHRISTIANO Apixaban (Apixaban 5 Mg Tablet) 5 mg PO BID [facility] Last Admin: 12/30/21 09:05 Dose: 5 mg Documented by: CHRISTIANO Atorvastatin Calcium (Atorvastatin Calcium 10 Mg Tablet) 10 mg PO DAILY [facility] Last Admin: 12/30/21 09:05 Dose: 10 mg Documented by: CHRISTIANO Digoxin (Digoxin 0.25 Mg Tablet) 0.25 mg PO DAILY [facility] Last Admin: 12/30/21 09:05 Dose: 0.25 mg Documented by: CHRISTIANO Fentanyl (Fentanyl Citrate/Pf 100 Mcg/2 Ml Vial) 25 mcg IVPUSH Q5M PRN; Protocol PRN Reason: Pain, Moderate (Pain Scale 4-6 Last Admin: 12/28/21 14:05 Dose: 25 mcg Documented by: TUAN Sodium Chloride (Ns) 1,000 mls @ 100 mls/hr IVCONT .Q10H [facility] Last Admin: 12/30/21 03:19 Dose: 100 mls/hr Documented by: GORAN Insulin Human Lispro (Insulin Lispro 100 Unit/Ml 3 Ml Vial) 0 unit SUBCUT QIDACHS [facility]; Protocol Last Admin: 12/30/21 12:00 Dose: Not Given Documented by: CHRISTIANO Non-Admin Reason: No Insulin Coverage Metoprolol Tartrate (Metoprolol Tartrate 25 Mg Tablet) 75 mg PO BID [facility]; Protocol Last Admin: 12/30/21 09:05 Dose: 75 mg Documented by: CHRISTIANO Morphine Sulfate (Morphine Sulfate 4 Mg/Ml Cartridge) 4 mg IVPUSH ONCE PRN; Protocol PRN Reason: Pain, Severe (Pain Scale 7-10) Last Admin: 12/27/21 09:38 Dose: 4 mg Documented by: AMANDA Morphine Sulfate (Morphine Sulfate 2 Mg/Ml Cartridge) 2 mg IVPUSH Q2H PRN; Protocol PRN Reason: severe pain Last Admin: 12/30/21 11:57 Dose: 2 mg Documented by: CHRISTIANO Multivitamins/Vitamin C (Multivitamin Tablet) 1 tab PO DAILY [facility] Last Admin: 12/30/21 09:05 Dose: 1 tab Documented by: CHRISTIANO Nystatin (Nystatin Powder 15 Gm Bottle) 1 appl TOPICAL TID [facility]; Protocol Last Admin: 12/30/21 09:05 Dose: 1 appl Documented by: CHRISTIANO Ondansetron HCl (Ondansetron Hcl 4 Mg/2 Ml Vial) 4 mg IVPUSH Q8H PRN PRN Reason: Nausea Last Admin: 12/26/21 13:26 Dose: 4 mg Documented by: CHRISTIANO Oxycodone HCl (Oxycodone Hcl Immed Release 5 Mg Tablet) 5 mg PO Q6H PRN PRN Reason: moderate pain Pharmacy Consult (Consult Rx Perform Med Rec) 1 each MISCELLANE ONCE PRN PRN Reason: Consult order Sodium Chloride (0.9 % Sodium Chloride Flush 3 Ml Syringe) 3 ml IVFLUSH QSHIFT [facility] Last Admin: 12/30/21 09:05 Dose: 3 ml Documented by: CHRISTIANO Spironolactone (Spironolactone 25 Mg Tablet) 25 mg PO DAILY [facility]; Protocol Last Admin: 12/30/21 09:05 Dose: 25 mg Documented by: CHRISTIANO Labs CBC & Chem 7: 12/30/21 06:23 12/30/21 06:23 Labs: Laboratory Results - last 24 hr 12/29/21 12/29/21 12/30/21 16:12 20:26 06:23 MCV 78.6 L MCH 22.4 L MCHC 28.6 L RDW 28.8 H Plt Count 303 MPV 9.8 Immature Gran % (Auto) 4.3 H Neut % (Auto) 75.9 H Lymph % (Auto) 10.8 L [place] % (Auto) 6.6 Eos % (Auto) 1.8 Baso % (Auto) 0.6 Lymph # (Auto) 1.5 [place] # (Auto) 0.9 Eos # (Auto) 0.3 Baso # (Auto) 0.1 Abs Immat Gran (auto) 0.58 H Absolute Neuts (auto) 10.3 H Absolute Nucleated RBC 0.000 Nucleated RBC % (auto) 0.0 Anion Gap Estim Creat Clear Calc Estimated GFR POC Glucose 158 H 107 Fasting Glucose Calcium Total Bilirubin AST ALT Alkaline Phosphatase Total Protein Albumin 12/30/21 12/30/21 12/30/21 06:23 07:32 11:02 MCV MCH MCHC RDW Plt Count MPV Immature Gran % (Auto) Neut % (Auto) Lymph % (Auto) [place] % (Auto) Eos % (Auto) Baso % (Auto) Lymph # (Auto) [place] # (Auto) Eos # (Auto) Baso # (Auto) Abs Immat Gran (auto) Absolute Neuts (auto) Absolute Nucleated RBC Nucleated RBC % (auto) Anion Gap 9 L Estim Creat Clear Calc 178.9 Estimated GFR > 60 POC Glucose 106 118 H Fasting Glucose 109 H Calcium 8.2 L Total Bilirubin 0.6 AST 12 ALT 6 Alkaline Phosphatase 83 Total Protein 5.3 L Albumin 2.6 L Assessment and Plan (1) Acute respiratory failure: Status: Acute (2) Sacral decubitus ulcer: Status: Acute (3) Atrial fibrillation with RVR: Status: Acute Plan hospital d#36 66-year-old F sent in from [facility], PMHx of alcoholic cirrhosis, dementia, schizoaffective disorder admitted for acute?exacerbation of underlying congestive heart failure further complicated by AF/RVR, COPD exacerbation and development of angioedema requiring intubation for ventilatory support on 11/27 extubated 11/29. 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 extubated 11/29/2021, reintubated on 12/06 and extubated 12/13 - multifactorial etiology including COPD, heart failure, and PNA on background of likely CPAP/OHS - overnight oximetry for likely CPAP need to be arranged at [facility] but for now on BiPAP, high risk of remaining intubated after OR tomorrow # Stage IV coccygeal decubitus ulcer - POD#2 operative debridement - pt placed on pulsating air mattress on her side, with wedge behind back - VAC placed today, trying to arrange VAC services at [facility], will need [facility] - Wound RN following - at multidisciplinary meeting this am, consensus is that pt's wound would best heal with diversion of stool [she is incontinent of liquid stool] and as such, will proceed with diverting colostomy # AF - rate-controlled on metoprolol + digoxin - anticoagulated with apixaban # HFpEF, [id number] - continue HCTZ, spironolactone # COPD exacerbation - nebulizer treatments; weaned off steroids # DM2 - correction-dose lispro # schizoaffective disorder - restart medications as outpt in stepwise fashion # VTE ppx - apixaban Quality Stroke Does the patient have a stroke diagnosis?: No VTE Prior VTE?: No VTE Risk Level:: Medical - moderate - high VTE Device Contraindication: Treatment Not Indicated VTE Drug Contraindication: N/A - Med Ordered
[2021-12-30 17:13] LABS: Glucose, Whole Blood 207 mg/dL (60-115)
[2021-12-30] MEDS: Insulin Lispro 100 UNIT/ML 3 ML VIAL SUBCUT (17:28)
--- NOTE | 2021-12-30 20:06 | PC.NURSE ---
Rescue Bipap Pt keeps taking her NC off, Pt eventually desatted to the 50s , Respiratory alerted amd rescued Bipap placed. made aware. Camera room instructed to stat when she removes O2
[2021-12-30 20:33] LABS: Glucose, Whole Blood 102 mg/dL (60-115)
[2021-12-31] VITALS (18 sets, daily range): BP systolic 115–213; BP diastolic 57–120; PULSE 72–120; RESP 16–43; TEMP 36.3–36.8; O2SAT 92–99
[2021-12-31 07:51] LABS: Glucose, Whole Blood 153 mg/dL (60-115)
--- NOTE | 2021-12-31 09:42 | MHC.CLN ---
F/U PO INTAKE REMAINS VARIABLE DIET RX: 2000DM GRD M/S-RECOMMEND LIBERALIZING TO REGULAR TO INCREASE VARIETY PT RECEIVING ENSURE BID AND LELAND BID TO PROVIDE 860KCALS, 45G PROTEIN FOR INCREASE KCALS AND PROMOTE WOUND HEALING CONTINUE STRICT PO MONITORING
[2021-12-31 09:49] LABS: Hematocrit 31.7 % (37.0-47.0); Mean Corpuscular HGB Conc 28.4 g/dl (31.0-35.0); Mean Corpuscular Volume 77.5 fL (80.0-98.0); Mean Platelet Volume 9.5 fL (9.4-12.3); NRBC Pct Auto 0.3 /100WBC (0.0-0.2); Platelet Count 350 X10*3/uL (160-400); Red Blood Count 4.09 X10*6/uL (4.20-5.50); Red Cell Distribution Width 28.2 % (11.0-16.0); White Blood Count 13.9 X10*3/uL (4.8-10.8)
[2021-12-31 09:50] LABS: VBG HCO3 40 mmol/L (22-26); VBG pCO2 63 mmHg; VBG pH 7.42 (7.32-7.43); VBG pO2 62 mmHg
[2021-12-31 09:50] LABS: Venous Blood Gas Refer to POC result
[2021-12-31 10:01] LABS: Anion Gap 11 (12-20); Blood Urea Nitrogen 7 mg/dL (9-16); Calcium 8.1 mg/dL (8.4-10.2); Carbon Dioxide 35 mmol/L (22-29); Chloride 99 mmol/L (96-108); Creatinine Clr Calc Pharmacy 152.4; Estimated Glomerular Filt Rate > 60; Glucose Random 148 mg/dL (60-115); Potassium 4.1 mmol/L (3.3-5.1); Sodium 141 mmol/L (135-145)
[2021-12-31 10:09] LABS: B Type Natriuretic Peptide 339 pg/mL (<100)
--- NOTE | 2021-12-31 10:18 | P.PNGS_ITS ---
Subjective Subjective Date of Service: 12/31/21 Interval history: Patient reports feeling more comfortable this morning. No new complaints Physical Exam Vital Signs: Vital Signs: Last Vital Signs Temp 98.0 F 12/31/21 07:15 Pulse 98 12/31/21 07:44 Resp 19 12/31/21 07:15 BP 150/83 H 12/31/21 07:44 Pulse Ox 98 12/31/21 07:15 Oxygen Flow Rate 3 12/30/21 13:00 BMI result Body Mass Index 54.5 Const: Other: awake, alert, response to questioning Resp: Other: breathing comfortably, mild shortness of breath Back/Spine/Pelvis: Other: wounds examined with wound care nurse. Increased granulation noted at the margins however the base of the wound which contain fatty tissue is now more necrotic appearing. No evidence of granulation tissue the central wound. There is some tunneling extending superiorly with necrotic subcutaneous tissue. See photo below Skin: Other: see back above. Objective Data Active Medications Acetaminophen (Acetaminophen 325 Mg Tablet) 650 mg PO Q6H PRN PRN Reason: Fever Last Admin: 12/30/21 11:57 Dose: 650 mg Documented by: CHRISTIANO Amlodipine Besylate (Amlodipine Besylate 5 Mg Tablet) 5 mg PO DAILY [facility]; Protocol Apixaban (Apixaban 5 Mg Tablet) 5 mg PO BID [facility] Last Admin: 12/31/21 07:54 Dose: Not Given Documented by: DONTRELL Non-Admin Reason: NPO Atorvastatin Calcium (Atorvastatin Calcium 10 Mg Tablet) 10 mg PO DAILY [facility] Last Admin: 12/30/21 09:05 Dose: 10 mg Documented by: CHRISTIANO Digoxin (Digoxin 0.25 Mg Tablet) 0.25 mg PO DAILY [facility] Last Admin: 12/30/21 09:05 Dose: 0.25 mg Documented by: CHRISTIANO Fentanyl (Fentanyl Citrate/Pf 100 Mcg/2 Ml Vial) 25 mcg IVPUSH Q5M PRN; Protocol PRN Reason: Pain, Moderate (Pain Scale 4-6 Last Admin: 12/28/21 14:05 Dose: 25 mcg Documented by: TUAN Insulin Human Lispro (Insulin Lispro 100 Unit/Ml 3 Ml Vial) 0 unit SUBCUT QIDACHS [facility]; Protocol Last Admin: 12/31/21 07:54 Dose: Not Given Documented by: DONTRELL Non-Admin Reason: NPO Metoprolol Tartrate (Metoprolol Tartrate 25 Mg Tablet) 75 mg PO BID [facility]; Protocol Last Admin: 12/30/21 21:46 Dose: 75 mg Documented by: SYL Morphine Sulfate (Morphine Sulfate 4 Mg/Ml Cartridge) 4 mg IVPUSH ONCE PRN; Protocol PRN Reason: Pain, Severe (Pain Scale 7-10) Last Admin: 12/27/21 09:38 Dose: 4 mg Documented by: AMANDA Morphine Sulfate (Morphine Sulfate 2 Mg/Ml Cartridge) 2 mg IVPUSH Q2H PRN; Protocol PRN Reason: severe pain Last Admin: 12/30/21 11:57 Dose: 2 mg Documented by: CHRISTIANO Multivitamins/Vitamin C (Multivitamin Tablet) 1 tab PO DAILY [facility] Last Admin: 12/30/21 09:05 Dose: 1 tab Documented by: CHRISTIANO Nystatin (Nystatin Powder 15 Gm Bottle) 1 appl TOPICAL TID [facility]; Protocol Last Admin: 12/30/21 21:46 Dose: 1 appl Documented by: SYL Ondansetron HCl (Ondansetron Hcl 4 Mg/2 Ml Vial) 4 mg IVPUSH Q8H PRN PRN Reason: Nausea Last Admin: 12/26/21 13:26 Dose: 4 mg Documented by: CHRISTIANO Oxycodone HCl (Oxycodone Hcl Immed Release 5 Mg Tablet) 5 mg PO Q6H PRN PRN Reason: moderate pain Pharmacy Consult (Consult Rx Perform Med Rec) 1 each MISCELLANE ONCE PRN PRN Reason: Consult order Sodium Chloride (0.9 % Sodium Chloride Flush 3 Ml Syringe) 3 ml IVFLUSH QSHIFT [facility] Last Admin: 12/30/21 21:53 Dose: 3 ml Documented by: SYL Spironolactone (Spironolactone 25 Mg Tablet) 25 mg PO DAILY [facility]; Protocol Last Admin: 12/30/21 09:05 Dose: 25 mg Documented by: CHRISTIANO Labs CBC & Chem 7: 12/31/21 09:32 12/31/21 09:32 Labs: Laboratory Results - last 24 hr 12/30/21 12/30/21 12/30/21 11:02 16:56 20:17 MCV MCH MCHC RDW Plt Count MPV Absolute Nucleated RBC Nucleated RBC % (auto) VBG pH VBG pCO2 VBG pO2 VBG HCO3 VBG O2 Saturation VBG Base Excess Anion Gap Estim Creat Clear Calc Estimated GFR POC Glucose 118 H 207 H 102 Random Glucose Calcium B-Natriuretic Peptide 12/31/21 12/31/21 12/31/21 07:18 09:32 09:32 MCV 77.5 L MCH 22.0 L MCHC 28.4 L RDW 28.2 H Plt Count 350 MPV 9.5 Absolute Nucleated RBC 0.040 H Nucleated RBC % (auto) 0.3 H VBG pH VBG pCO2 VBG pO2 VBG HCO3 VBG O2 Saturation VBG Base Excess Anion Gap 11 L Estim Creat Clear Calc 152.4 Estimated GFR > 60 POC Glucose 153 H Random Glucose 148 H Calcium 8.1 L B-Natriuretic Peptide 12/31/21 12/31/21 09:32 09:45 MCV MCH MCHC RDW Plt Count MPV Absolute Nucleated RBC Nucleated RBC % (auto) VBG pH 7.42 VBG pCO2 63 VBG pO2 62 VBG HCO3 40 H VBG O2 Saturation 85.0 VBG Base Excess 14.0 Anion Gap Estim Creat Clear Calc Estimated GFR POC Glucose Random Glucose Calcium B-Natriuretic Peptide 339 H Procedures Date of Service Date of Service: 12/31/21 Progress Note: A&P Assessment and plan (1) Sacral decubitus ulcer: Status: Acute Plan 66-year-old female patient with multiple medical problems including congestive heart failure, chronic kidney disease, alcoholic cirrhosis, presenting with a sacral decubitus ulcer previously debrided but with new areas necrotic tissue. Discussion with the care team yesterday raise the possibility of performing a diverting colostomy to prevent fecal soilage of the wound. This would need to be done under general anesthesia with intubation, and there is a high likelihood of needing prolonged intubation because of this. Examination of the wounds today revealed new areas necrosis at the base of the wound. The margins appear improved with new granulation however the base of the wound has necrotic fat. I am unable to debride this at the bedside given the patient's discomfort. I feel the best plan of action at this point is to perform other wound debridement in the OR today down to healthy viable tissue and reapply the wound VAC in the OR. Attempts will be made to isolate the anus from the surrounding wound to prevent fecal soilage. I reviewed the options in detail with the patient's guardian (Akil Lizarraga Esq ). We discussed the options of diverting colostomy verses wound debridement under local along with the relative risks and benefits. He wishes to proceed with the wound debridement and avoid the colostomy. After discussion of the procedure, risks, and alternatives, he consents to the surgery. She has been added onto the operative schedule for today. Fall Risk Details Current Medications: Current Medications Acetaminophen (Acetaminophen 325 Mg Tablet) 650 mg PO Q6H PRN PRN Reason: Fever Last Admin: 12/30/21 11:57 Dose: 650 mg Documented by: Amlodipine Besylate (Amlodipine Besylate 5 Mg Tablet) 5 mg PO DAILY [facility]; Protocol Apixaban (Apixaban 5 Mg Tablet) 5 mg PO BID [facility] Last Admin: 12/31/21 07:54 Dose: Not Given Documented by: Atorvastatin Calcium (Atorvastatin Calcium 10 Mg Tablet) 10 mg PO DAILY [facility] Last Admin: 12/30/21 09:05 Dose: 10 mg Documented by: Digoxin (Digoxin 0.25 Mg Tablet) 0.25 mg PO DAILY [facility] Last Admin: 12/30/21 09:05 Dose: 0.25 mg Documented by: Fentanyl (Fentanyl Citrate/Pf 100 Mcg/2 Ml Vial) 25 mcg IVPUSH Q5M PRN; Protocol PRN Reason: Pain, Moderate (Pain Scale 4-6 Last Admin: 12/28/21 14:05 Dose: 25 mcg Documented by: Insulin Human Lispro (Insulin Lispro 100 Unit/Ml 3 Ml Vial) 0 unit SUBCUT QIDACHS [facility]; Protocol Last Admin: 12/31/21 07:54 Dose: Not Given Documented by: Metoprolol Tartrate (Metoprolol Tartrate 25 Mg Tablet) 75 mg PO BID [facility]; Protocol Last Admin: 12/30/21 21:46 Dose: 75 mg Documented by: Morphine Sulfate (Morphine Sulfate 4 Mg/Ml Cartridge) 4 mg IVPUSH ONCE PRN; Protocol PRN Reason: Pain, Severe (Pain Scale 7-10) Last Admin: 12/27/21 09:38 Dose: 4 mg Documented by: Morphine Sulfate (Morphine Sulfate 2 Mg/Ml Cartridge) 2 mg IVPUSH Q2H PRN; Protocol PRN Reason: severe pain Last Admin: 12/30/21 11:57 Dose: 2 mg Documented by: Multivitamins/Vitamin C (Multivitamin Tablet) 1 tab PO DAILY [facility] Last Admin: 12/30/21 09:05 Dose: 1 tab Documented by: Nystatin (Nystatin Powder 15 Gm Bottle) 1 appl TOPICAL TID [facility]; Protocol Last Admin: 12/30/21 21:46 Dose: 1 appl Documented by: Ondansetron HCl (Ondansetron Hcl 4 Mg/2 Ml Vial) 4 mg IVPUSH Q8H PRN PRN Reason: Nausea Last Admin: 12/26/21 13:26 Dose: 4 mg Documented by: Oxycodone HCl (Oxycodone Hcl Immed Release 5 Mg Tablet) 5 mg PO Q6H PRN PRN Reason: moderate pain Pharmacy Consult (Consult Rx Perform Med Rec) 1 each MISCELLANE ONCE PRN PRN Reason: Consult order Sodium Chloride (0.9 % Sodium Chloride Flush 3 Ml Syringe) [facility] Last Admin: 12/30/21 21:53 Dose: 3 ml Documented by: Spironolactone (Spironolactone 25 Mg Tablet) 25 mg PO DAILY [facility]; Protocol Last Admin: 12/30/21 09:05 Dose: 25 mg Documented by: Time Spent With Patient Time: Total time spent is greater than 50% in coordination of care (as documented) at patient's floor/unit and/or counseling patient: Time with patient: 15 - 24 minutes Quality Stroke Does the patient have a stroke diagnosis?: No VTE Prior VTE?: No VTE Risk Level:: Medical - moderate - high VTE Device Contraindication: Treatment Not Indicated VTE Drug Contraindication: N/A - Med Ordered
--- NOTE | 2021-12-31 10:22 | HO.ANESPROP2 ---
[facility] Active Problems Active Problems: All Active Problems (Updated 12/19/21 @ 11:13 by Ibrahima Brown MD) Acute on chronic diastolic (congestive) heart failure (Acute) Hypernatremia (Acute) Sacral decubitus ulcer (Acute) Hyponatremia (Acute) Anemia (Acute) Diastolic CHF with preserved left ventricular function, NYHA class 2 (Acute) CHF exacerbation (Acute) Fever of unknown origin (Acute) Acute encephalopathy (Acute) Acute respiratory failure (Acute) Schizoaffective disorder (Acute) CKD (chronic kidney disease) (Acute) Alcoholic cirrhosis of liver (Acute) Angioedema (Acute) Acute anaphylaxis (Acute) Dyspnea (Acute) Hyponatremia (Acute) Atrial fibrillation with RVR (Acute) Pneumonia (Acute) Chronic hyponatremia (Acute) Acute hyperkalemia (Acute) Past Medical History Medical History Alcoholic cirrhosis of liver Anemia Asthma CKD (chronic kidney disease) Crohn's disease Diastolic CHF with preserved left ventricular function, NYHA class 2 Fever of unknown origin Hyponatremia Hyponatremia Schizoaffective disorder Family History Family history of problems with anesthesia: Unobtainable Surgical History Surgical History No pertinent past surgical history History of Problems with Anesthesia: No (Patient denies prior anesthesia ) Social History Social History Household Members: None Housing: House Patient Tobacco Use Status: Current everyday Tobacco user service: No Meds Allergies Allergy/AdvReac Type Severity Reaction Status Date / Time lisinopril Allergy Severe Angioedema Verified 12/02/21 16:07 Sulfa (Sulfonamide Allergy Intermediate HIVES Verified 11/24/21 20:49 Antibiotics) Active Medications: Current Medications Acetaminophen (Acetaminophen 325 Mg Tablet) 650 mg PO Q6H PRN PRN Reason: Fever Last Admin: 12/30/21 11:57 Dose: 650 mg Documented by: Amlodipine Besylate (Amlodipine Besylate 5 Mg Tablet) 5 mg PO DAILY [facility]; Protocol Apixaban (Apixaban 5 Mg Tablet) 5 mg PO BID [facility] Last Admin: 12/31/21 07:54 Dose: Not Given Documented by: Atorvastatin Calcium (Atorvastatin Calcium 10 Mg Tablet) 10 mg PO DAILY [facility] Last Admin: 12/30/21 09:05 Dose: 10 mg Documented by: Digoxin (Digoxin 0.25 Mg Tablet) 0.25 mg PO DAILY [facility] Last Admin: 12/30/21 09:05 Dose: 0.25 mg Documented by: Fentanyl (Fentanyl Citrate/Pf 100 Mcg/2 Ml Vial) 25 mcg IVPUSH Q5M PRN; Protocol PRN Reason: Pain, Moderate (Pain Scale 4-6 Last Admin: 12/28/21 14:05 Dose: 25 mcg Documented by: Insulin Human Lispro (Insulin Lispro 100 Unit/Ml 3 Ml Vial) 0 unit SUBCUT QIDACHS [facility]; Protocol Last Admin: 12/31/21 07:54 Dose: Not Given Documented by: Metoprolol Tartrate (Metoprolol Tartrate 25 Mg Tablet) 75 mg PO BID [facility]; Protocol Last Admin: 12/30/21 21:46 Dose: 75 mg Documented by: Morphine Sulfate (Morphine Sulfate 4 Mg/Ml Cartridge) 4 mg IVPUSH ONCE PRN; Protocol PRN Reason: Pain, Severe (Pain Scale 7-10) Last Admin: 12/27/21 09:38 Dose: 4 mg Documented by: Morphine Sulfate (Morphine Sulfate 2 Mg/Ml Cartridge) 2 mg IVPUSH Q2H PRN; Protocol PRN Reason: severe pain Last Admin: 12/30/21 11:57 Dose: 2 mg Documented by: Multivitamins/Vitamin C (Multivitamin Tablet) 1 tab PO DAILY [facility] Last Admin: 12/30/21 09:05 Dose: 1 tab Documented by: Nystatin (Nystatin Powder 15 Gm Bottle) 1 appl TOPICAL TID [facility]; Protocol Last Admin: 12/30/21 21:46 Dose: 1 appl Documented by: Ondansetron HCl (Ondansetron Hcl 4 Mg/2 Ml Vial) 4 mg IVPUSH Q8H PRN PRN Reason: Nausea Last Admin: 12/26/21 13:26 Dose: 4 mg Documented by: Oxycodone HCl (Oxycodone Hcl Immed Release 5 Mg Tablet) 5 mg PO Q6H PRN PRN Reason: moderate pain Pharmacy Consult (Consult Rx Perform Med Rec) 1 each MISCELLANE ONCE PRN PRN Reason: Consult order Sodium Chloride (0.9 % Sodium Chloride Flush 3 Ml Syringe) 3 ml IVFLUSH QSHIFT [facility] Last Admin: 12/30/21 21:53 Dose: 3 ml Documented by: Spironolactone (Spironolactone 25 Mg Tablet) 25 mg PO DAILY [facility]; Protocol Last Admin: 12/30/21 09:05 Dose: 25 mg Documented by: Home Medications Medication Instructions Recorded Confirmed Last Taken Type Saccharomyces boulardii 250 mg 250 mg PO BID 11/25/21 11/25/21 11/24/21 History capsule (Florastor) acetaminophen 325 mg tablet 650 mg PO Q4H PRN 11/25/21 11/25/21 11/23/21 History albuterol sulfate 90 mcg/actuation 2 puff INHALATION Q4H PRN 11/25/21 11/25/21 11/22/21 History aerosol inhaler (ProAir HFA) aluminum-mag hydroxide-simethicone 30 ml PO Q4H PRN 11/25/21 11/25/21 11/16/21 History 200 mg-200 mg-20 mg/5 mL oral susp ([place]) atorvastatin 10 mg tablet 1 tab PO DAILY 11/25/21 11/25/21 11/24/21 History azathioprine 50 mg tablet 2 tab PO DAILY 11/25/21 11/25/21 11/24/21 History calcitonin (salmon) 200 1 spray INTRANASAL DAILY 11/25/21 11/25/21 11/24/21 History unit/actuation nasal spray calcium carbonate 600 mg-vitamin 1 tab PO DAILY 11/25/21 11/25/21 11/24/21 History D3 5 mcg (200 unit) tablet (Calcium 600 + D(3)) cranberry fruit 450 mg tablet 450 mg PO BID 11/25/21 11/25/21 11/24/21 History (cranberry) cyclobenzaprine 10 mg tablet 1 tab PO Q24H PRN 11/25/21 11/25/21 11/21/21 History docusate sodium 100 mg tablet 100 mg PO BID 11/25/21 11/25/21 11/24/21 History dulaglutide 1.5 mg/0.5 mL 1.5 mg SUBCUT TU 11/25/21 11/25/21 11/23/21 History subcutaneous pen injector (Trulicity) gabapentin 100 mg capsule 1 cap PO TID 11/25/21 11/25/21 11/24/21 History haloperidol 5 mg tablet 5 mg PO BID 11/25/21 11/25/21 11/24/21 History hydroxyzine HCl 25 mg tablet 25 mg PO QID 11/25/21 11/25/21 11/24/21 History insulin detemir U-100 100 unit/mL 110 unit SUBCUT BID@0630,1630 11/25/21 11/25/21 11/24/21 History (3 mL) subcutaneous pen insulin regular human 100 unit/mL 1 sliding scale dose SUBCUT 11/25/21 11/25/21 11/24/21 History injection solution (Novolin R USEASDIRECTD Regular U-100 Insulin) ipratropium 20 mcg-albuterol 100 1 puff INHALATION BID 11/25/21 11/25/21 11/24/21 History mcg/actuation mist for inhalation (Combivent Respimat) lanolin alcohols-mineral 1 appl TOPICAL DAILY 11/25/21 11/25/21 Unknown History oil-w.petrolatum-ceresin topical cream (Minerin Creme) lisinopril 5 mg tablet 5 mg PO DAILY 11/25/21 11/25/21 11/24/21 History menthol 5 % topical patch (Bengay 1 patch TOPICAL DAILY PRN 11/25/21 11/25/21 Unknown History Ultra Strength (menthol)) metformin 1,000 mg tablet 1,000 mg PO BID 11/25/21 11/25/21 11/24/21 History mirtazapine 15 mg tablet 1 tab PO BEDTIME 11/25/21 11/25/21 11/23/21 History multivitamin 1 tab PO DAILY 11/25/21 11/25/21 11/24/21 History nicotine 7 mg/24 hr daily 1 patch TRANSDERMAL Q24H PRN 11/25/21 11/25/21 Unknown History transdermal patch nitrofurantoin macrocrystal 50 mg 1 cap PO BEDTIME 11/25/21 11/25/21 11/23/21 History capsule nitroglycerin 0.4 mg sublingual 0.4 mg SUBLINGUAL Q5M PRN 11/25/21 11/25/21 Unknown History tablet nystatin 100,000 unit/gram topical 1 appl TOPICAL BID 11/25/21 11/25/21 Unknown History powder omeprazole 20 mg tablet,delayed 20 mg PO BID 11/25/21 11/25/21 11/24/21 History release oxycodone-acetaminophen 5 mg-325 1 tab PO QID 11/25/21 11/25/21 11/24/21 History mg tablet sennosides 8.6 mg tablet (senna) 8.6 mg PO DAILY 11/25/21 11/25/21 11/24/21 History sennosides 8.6 mg tablet (senna) 17.2 mg PO BEDTIME 11/25/21 11/25/21 11/23/21 History sitagliptin 100 mg tablet (Januvia) 100 mg PO DAILY 11/25/21 11/25/21 11/24/21 History sodium chloride 0.65 % nasal spray 2 spray INTRANASAL Q4H PRN 11/25/21 11/25/21 11/24/21 History aerosol (Deep Sea Nasal) sodium chloride 1,000 mg soluble 1,000 mg PO TID 11/25/21 11/25/21 11/24/21 History tablet tolterodine 4 mg capsule,extended 4 mg PO DAILY 11/25/21 11/25/21 11/24/21 History release 24 hr Exam Exam Date and Time: December 31, 2021 1022 Height,Weight and Vital Signs: Height 5 ft 6 in Weight 153.2 kg Last Vital Signs Temp 98.0 F 12/31/21 07:15 Pulse 98 12/31/21 07:44 Resp 19 12/31/21 07:15 BP 150/83 H 12/31/21 07:44 Pulse Ox 98 12/31/21 07:15 Oxygen Flow Rate 3 12/30/21 13:00 Pertinent Lab Results Pertinent Lab Results: Laboratory Tests 11/24/21 11/24/21 11/24/21 20:38 20:38 20:38 WBC 17.9 H RBC 5.14 Hgb 9.8 L Hct 33.7 L MCV 65.6 L MCH 19.1 L MCHC 29.1 L RDW 20.6 H Plt Count 395 MPV 8.8 L Immature Gran % (Auto) Cancelled Neut % (Auto) Cancelled Lymph % (Auto) Cancelled [place] % (Auto) Cancelled Eos % (Auto) Cancelled Baso % (Auto) Cancelled Lymph # (Auto) Cancelled [place] # (Auto) Cancelled Eos # (Auto) Cancelled Baso # (Auto) Cancelled Abs Immat Gran (auto) Cancelled Absolute Neuts (auto) Cancelled Absolute Nucleated RBC 0.140 H Nucleated RBC % (auto) 0.8 H Neutrophils % (Manual) 89 H Band Neutrophils % 2 L Lymphocytes % (Manual) 6 L Monocytes % (Manual) 3 Abs Neuts (Manual) 16.3 H Lymphocytes # (Manual) 1.1 L Monocytes # (Manual) 0.5 Platelet Estimate NORMAL Plt Morphology Comment NORMAL RBC Morphology NOTED Acanthocytes (Spur) 1+ (0-2) Smear Tech's Comments Smear Path Review PT INR APTT O2 Saturation ABG pH at Pt Temp ABG pH (Temp Correct) ABG pCO2 at Pt Temp ABG pCO2 (Temp Corrct ABG pO2 at Pt Temp ABG pO2 (Temp Correct ABG HCO3 ABG Base Excess (Actual) VBG pH VBG pCO2 VBG pO2 VBG HCO3 VBG O2 Saturation VBG Base Excess Sodium 122 L Potassium 6.5 H* Chloride 89 L Carbon Dioxide 27 Anion Gap 13 BUN 14 Creatinine 0.84 Estim Creat Clear Calc 81.9 Estimated GFR > 60 POC Glucose Random Glucose 90 Fasting Glucose Osmolality Lactic Acid Calcium 8.8 Phosphorus Magnesium 1.9 Total Bilirubin Direct Bilirubin AST ALT Alkaline Phosphatase Ammonia Troponin I High Sens 4.1 B-Natriuretic Peptide 78 Total Protein Albumin Procalcitonin TSH 1.76 Random Cortisol Urine Color Urine Appearance Urine pH Ur Specific [place] Urine Protein Urine Glucose (UA) Urine Ketones Urine Blood Urine Nitrite Ur Leukocyte Esterase Urine RBC Urine WBC Ur Squamous Epith Cells Urine Bacteria Urine Mucus Urine Osmolality Ur Random Sodium Ur Random Potassium Ur Random Chloride Stool Occult Blood Stool Leukocytes, Qual Random Vancomycin Digoxin C. difficile Tox B Gene COVID-19 ([facility]) COVID-19 Clin Com Influenza Type A (PCR) Influenza Type B (PCR) RSV RNA Qual (PCR) SARS-CoV-2 RNA (RT-PCR) Blood Type Antibody Screen Crossmatch 11/24/21 11/24/21 11/24/21 20:38 20:38 20:38 WBC RBC Hgb Hct MCV MCH MCHC RDW Plt Count MPV Immature Gran % (Auto) Neut % (Auto) Lymph % (Auto) [place] % (Auto) Eos % (Auto) Baso % (Auto) Lymph # (Auto) [place] # (Auto) Eos # (Auto) Baso # (Auto) Abs Immat Gran (auto) Absolute Neuts (auto) Absolute Nucleated RBC Nucleated RBC % (auto) Neutrophils % (Manual) Band Neutrophils % Lymphocytes % (Manual) Monocytes % (Manual) Abs Neuts (Manual) Lymphocytes # (Manual) Monocytes # (Manual) Platelet Estimate Plt Morphology Comment RBC Morphology Acanthocytes (Spur) Smear Tech's Comments Smear Path Review PT 14.7 H INR 1.3 H APTT 38.7 H O2 Saturation ABG pH at Pt Temp ABG pH (Temp Correct) ABG pCO2 at Pt Temp ABG pCO2 (Temp Corrct ABG pO2 at Pt Temp ABG pO2 (Temp Correct ABG HCO3 ABG Base Excess (Actual) VBG pH VBG pCO2 VBG pO2 VBG HCO3 VBG O2 Saturation VBG Base Excess Sodium Potassium Chloride Carbon Dioxide Anion Gap BUN Creatinine Estim Creat Clear Calc Estimated GFR POC Glucose Random Glucose Fasting Glucose Osmolality 256 L Lactic Acid Calcium Phosphorus Magnesium Total Bilirubin Direct Bilirubin AST ALT Alkaline Phosphatase Ammonia Troponin I High Sens B-Natriuretic Peptide Total Protein Albumin Procalcitonin TSH Random Cortisol Urine Color Urine Appearance Urine pH Ur Specific [place] Urine Protein Urine Glucose (UA) Urine Ketones Urine Blood Urine Nitrite Ur Leukocyte Esterase Urine RBC Urine WBC Ur Squamous Epith Cells Urine Bacteria Urine Mucus Urine Osmolality Ur Random Sodium Ur Random Potassium Ur Random Chloride Stool Occult Blood Stool Leukocytes, Qual Random Vancomycin Digoxin C. difficile Tox B Gene COVID-19 (JESSY) Negative COVID-19 Clin Com See Note Influenza Type A (PCR) Influenza Type B (PCR) RSV RNA Qual (PCR) SARS-CoV-2 RNA (RT-PCR) Blood Type Antibody Screen Crossmatch 11/24/21 11/25/21 11/25/21 22:10 00:40 01:47 WBC RBC Hgb Hct MCV MCH MCHC RDW Plt Count MPV Immature Gran % (Auto) Neut % (Auto) Lymph % (Auto) [place] % (Auto) Eos % (Auto) Baso % (Auto) Lymph # (Auto) [place] # (Auto) Eos # (Auto) Baso # (Auto) Abs Immat Gran (auto) Absolute Neuts (auto) Absolute Nucleated RBC Nucleated RBC % (auto) Neutrophils % (Manual) Band Neutrophils % Lymphocytes % (Manual) Monocytes % (Manual) Abs Neuts (Manual) Lymphocytes # (Manual) Monocytes # (Manual) Platelet Estimate Plt Morphology Comment RBC Morphology Acanthocytes (Spur) Smear Tech's Comments Smear Path Review PT INR APTT O2 Saturation ABG pH at Pt Temp ABG pH (Temp Correct) ABG pCO2 at Pt Temp ABG pCO2 (Temp Corrct ABG pO2 at Pt Temp ABG pO2 (Temp Correct ABG HCO3 ABG Base Excess (Actual) VBG pH VBG pCO2 VBG pO2 VBG HCO3 VBG O2 Saturation VBG Base Excess Sodium 121 L Potassium 5.8 H Chloride 89 L Carbon Dioxide 27 Anion Gap 11 L BUN Creatinine Estim Creat Clear Calc Estimated GFR POC Glucose Random Glucose Fasting Glucose Osmolality Lactic Acid 1.2 Calcium Phosphorus Magnesium Total Bilirubin Direct Bilirubin AST ALT Alkaline Phosphatase Ammonia Troponin I High Sens B-Natriuretic Peptide Total Protein Albumin Procalcitonin TSH Random Cortisol Urine Color DK YELLOW Urine Appearance HAZY Urine pH 5.5 Ur Specific [place] >= 1.030 H Urine Protein 2+ H Urine Glucose (UA) NEG Urine Ketones NEG Urine Blood NEG Urine Nitrite NEG Ur Leukocyte Esterase NEG Urine RBC 0 Urine WBC 10-14 H Ur Squamous Epith Cells 3+ Urine Bacteria 3+ Urine Mucus 2+ Urine Osmolality Ur Random Sodium Ur Random Potassium Ur Random Chloride Stool Occult Blood Stool Leukocytes, Qual Random Vancomycin Digoxin C. difficile Tox B Gene COVID-19 ([facility]ESSY) COVID-19 Clin Com Influenza Type A (PCR) Influenza Type B (PCR) RSV RNA Qual (PCR) SARS-CoV-2 RNA (RT-PCR) Blood Type Antibody Screen Crossmatch 11/25/21 11/25/21 11/25/21 02:24 03:34 05:46 WBC RBC Hgb Hct MCV MCH MCHC RDW Plt Count MPV Immature Gran % (Auto) Neut % (Auto) Lymph % (Auto) [place] % (Auto) Eos % (Auto) Baso % (Auto) Lymph # (Auto) [place] # (Auto) Eos # (Auto) Baso # (Auto) Abs Immat Gran (auto) Absolute Neuts (auto) Absolute Nucleated RBC Nucleated RBC % (auto) Neutrophils % (Manual) Band Neutrophils % Lymphocytes % (Manual) Monocytes % (Manual) Abs Neuts (Manual) Lymphocytes # (Manual) Monocytes # (Manual) Platelet Estimate Plt Morphology Comment RBC Morphology Acanthocytes (Spur) Smear Tech's Comments Smear Path Review PT INR APTT O2 Saturation ABG pH at Pt Temp ABG pH (Temp Correct) ABG pCO2 at Pt Temp ABG pCO2 (Temp Corrct ABG pO2 at Pt Temp ABG pO2 (Temp Correct ABG HCO3 ABG Base Excess (Actual) VBG pH VBG pCO2 VBG pO2 VBG HCO3 VBG O2 Saturation VBG Base Excess Sodium Potassium Chloride Carbon Dioxide Anion Gap BUN Creatinine Estim Creat Clear Calc Estimated GFR POC Glucose 30 L* 29 L* 72 Random Glucose Fasting Glucose Osmolality Lactic Acid Calcium Phosphorus Magnesium Total Bilirubin Direct Bilirubin AST ALT Alkaline Phosphatase Ammonia Troponin I High Sens B-Natriuretic Peptide Total Protein Albumin Procalcitonin TSH Random Cortisol Urine Color Urine Appearance Urine pH Ur Specific [place] Urine Protein Urine Glucose (UA) Urine Ketones Urine Blood Urine Nitrite Ur Leukocyte Esterase Urine RBC Urine WBC Ur Squamous Epith Cells Urine Bacteria Urine Mucus Urine Osmolality Ur Random Sodium Ur Random Potassium Ur Random Chloride Stool Occult Blood Stool Leukocytes, Qual Random Vancomycin Digoxin C. difficile Tox B Gene COVID-19 (JESSY) COVID-19 Clin Com Influenza Type A (PCR) Influenza Type B (PCR) RSV RNA Qual (PCR) SARS-CoV-2 RNA (RT-PCR) Blood Type Antibody Screen Crossmatch 11/25/21 11/25/21 11/25/21 08:24 08:24 08:29 WBC 16.6 H RBC 4.86 Hgb 9.3 L Hct 32.4 L MCV 66.7 L MCH 19.1 L MCHC 28.7 L RDW 20.8 H Plt Count 372 MPV 9.6 Immature Gran % (Auto) 1.1 H Neut % (Auto) 83.4 H Lymph % (Auto) 8.6 L [place] % (Auto) 6.4 Eos % (Auto) 0.3 Baso % (Auto) 0.2 Lymph # (Auto) 1.4 [place] # (Auto) 1.1 Eos # (Auto) 0.1 Baso # (Auto) 0.0 Abs Immat Gran (auto) 0.18 H Absolute Neuts (auto) 13.9 H Absolute Nucleated RBC 0.070 H Nucleated RBC % (auto) 0.4 H Neutrophils % (Manual) Band Neutrophils % Lymphocytes % (Manual) Monocytes % (Manual) Abs Neuts (Manual) Lymphocytes # (Manual) Monocytes # (Manual) Platelet Estimate Plt Morphology Comment RBC Morphology Acanthocytes (Spur) Smear Tech's Comments Smear Path Review PT INR APTT O2 Saturation ABG pH at Pt Temp ABG pH (Temp Correct) ABG pCO2 at Pt Temp ABG pCO2 (Temp Corrct ABG pO2 at Pt Temp ABG pO2 (Temp Correct ABG HCO3 ABG Base Excess (Actual) VBG pH VBG pCO2 VBG pO2 VBG HCO3 VBG O2 Saturation VBG Base Excess Sodium 120 L* Potassium 5.4 H Chloride 87 L Carbon Dioxide 26 Anion Gap 12 BUN 13 Creatinine 0.77 Estim Creat Clear Calc 89.3 Estimated GFR > 60 POC Glucose 107 Random Glucose 96 Fasting Glucose Osmolality Lactic Acid Calcium 9.1 Phosphorus Magnesium Total Bilirubin Direct Bilirubin AST ALT Alkaline Phosphatase Ammonia Troponin I High Sens B-Natriuretic Peptide Total Protein Albumin Procalcitonin TSH Random Cortisol Urine Color Urine Appearance Urine pH Ur Specific [place] Urine Protein Urine Glucose (UA) Urine Ketones Urine Blood Urine Nitrite Ur Leukocyte Esterase Urine RBC Urine WBC Ur Squamous Epith Cells Urine Bacteria Urine Mucus Urine Osmolality Ur Random Sodium Ur Random Potassium Ur Random Chloride Stool Occult Blood Stool Leukocytes, Qual Random Vancomycin Digoxin C. difficile Tox B Gene COVID-19 (JESSY) COVID-19 Clin Com Influenza Type A (PCR) Influenza Type B (PCR) RSV RNA Qual (PCR) SARS-CoV-2 RNA (RT-PCR) Blood Type Antibody Screen Crossmatch 11/25/21 11/25/21 11/25/21 11:28 11:28 16:51 WBC RBC Hgb Hct MCV MCH MCHC RDW Plt Count MPV Immature Gran % (Auto) Neut % (Auto) Lymph % (Auto) [place] % (Auto) Eos % (Auto) Baso % (Auto) Lymph # (Auto) [place] # (Auto) Eos # (Auto) Baso # (Auto) Abs Immat Gran (auto) Absolute Neuts (auto) Absolute Nucleated RBC Nucleated RBC % (auto) Neutrophils % (Manual) Band Neutrophils % Lymphocytes % (Manual) Monocytes % (Manual) Abs Neuts (Manual) Lymphocytes # (Manual) Monocytes # (Manual) Platelet Estimate Plt Morphology Comment RBC Morphology Acanthocytes (Spur) Smear Tech's Comments Smear Path Review PT INR APTT O2 Saturation ABG pH at Pt Temp ABG pH (Temp Correct) ABG pCO2 at Pt Temp ABG pCO2 (Temp Corrct ABG pO2 at Pt Temp ABG pO2 (Temp Correct ABG HCO3 ABG Base Excess (Actual) VBG pH VBG pCO2 VBG pO2 VBG HCO3 VBG O2 Saturation VBG Base Excess Sodium Potassium Chloride Carbon Dioxide Anion Gap BUN Creatinine Estim Creat Clear Calc Estimated GFR POC Glucose Random Glucose Fasting Glucose Osmolality 255 L Lactic Acid Calcium Phosphorus Magnesium Total Bilirubin Direct Bilirubin AST ALT Alkaline Phosphatase Ammonia Troponin I High Sens B-Natriuretic Peptide Total Protein Albumin Procalcitonin TSH Random Cortisol Urine Color Urine Appearance Urine pH Ur Specific [place] Urine Protein Urine Glucose (UA) Urine Ketones Urine Blood Urine Nitrite Ur Leukocyte Esterase Urine RBC Urine WBC Ur Squamous Epith Cells Urine Bacteria Urine Mucus Urine Osmolality 549 Ur Random Sodium < 20.0 Ur Random Potassium 79.7 Ur Random Chloride Stool Occult Blood Stool Leukocytes, Qual Random Vancomycin Digoxin C. difficile Tox B Gene COVID-19 (JESSY) COVID-19 Clin Com Influenza Type A (PCR) Influenza Type B (PCR) RSV RNA Qual (PCR) SARS-CoV-2 RNA (RT-PCR) Blood Type Antibody Screen Crossmatch 11/25/21 11/25/21 11/25/21 16:51 20:22 21:06 WBC RBC Hgb Hct MCV MCH MCHC RDW Plt Count MPV Immature Gran % (Auto) Neut % (Auto) Lymph % (Auto) [place] % (Auto) Eos % (Auto) Baso % (Auto) Lymph # (Auto) [place] # (Auto) Eos # (Auto) Baso # (Auto) Abs Immat Gran (auto) Absolute Neuts (auto) Absolute Nucleated RBC Nucleated RBC % (auto) Neutrophils % (Manual) Band Neutrophils % Lymphocytes % (Manual) Monocytes % (Manual) Abs Neuts (Manual) Lymphocytes # (Manual) Monocytes # (Manual) Platelet Estimate Plt Morphology Comment RBC Morphology Acanthocytes (Spur) Smear Tech's Comments Smear Path Review PT INR APTT O2 Saturation ABG pH at Pt Temp ABG pH (Temp Correct) ABG pCO2 at Pt Temp ABG pCO2 (Temp Corrct ABG pO2 at Pt Temp ABG pO2 (Temp Correct ABG HCO3 ABG Base Excess (Actual) VBG pH VBG pCO2 VBG pO2 VBG HCO3 VBG O2 Saturation VBG Base Excess Sodium Potassium Chloride Carbon Dioxide Anion Gap BUN Creatinine Estim Creat Clear Calc Estimated GFR POC Glucose 50 L* 75 Random Glucose Fasting Glucose Osmolality Lactic Acid Calcium Phosphorus Magnesium Total Bilirubin Direct Bilirubin AST ALT Alkaline Phosphatase Ammonia Troponin I High Sens B-Natriuretic Peptide Total Protein Albumin Procalcitonin TSH 1.33 Random Cortisol Urine Color Urine Appearance Urine pH Ur Specific [place] Urine Protein Urine Glucose (UA) Urine Ketones Urine Blood Urine Nitrite Ur Leukocyte Esterase Urine RBC Urine WBC Ur Squamous Epith Cells Urine Bacteria Urine Mucus Urine Osmolality Ur Random Sodium Ur Random Potassium Ur Random Chloride Stool Occult Blood Stool Leukocytes, Qual Random Vancomycin Digoxin C. difficile Tox B Gene COVID-19 (JESSY) COVID-19 Clin Com Influenza Type A (PCR) Influenza Type B (PCR) RSV RNA Qual (PCR) SARS-CoV-2 RNA (RT-PCR) Blood Type Antibody Screen Crossmatch 11/25/21 11/26/21 11/26/21 22:36 00:18 06:32 WBC 15.7 H RBC 4.85 Hgb 9.2 L Hct 31.2 L MCV 64.3 L MCH 19.0 L MCHC 29.5 L RDW 20.1 H Plt Count 392 MPV 9.1 L Immature Gran % (Auto) 0.8 H Neut % (Auto) 83.6 H Lymph % (Auto) 7.0 L [place] % (Auto) 8.2 Eos % (Auto) 0.3 Baso % (Auto) 0.1 Lymph # (Auto) 1.1 L [place] # (Auto) 1.3 H Eos # (Auto) 0.0 Baso # (Auto) 0.0 Abs Immat Gran (auto) 0.13 H Absolute Neuts (auto) 13.1 H Absolute Nucleated RBC 0.100 H Nucleated RBC % (auto) 0.6 H Neutrophils % (Manual) Band Neutrophils % Lymphocytes % (Manual) Monocytes % (Manual) Abs Neuts (Manual) Lymphocytes # (Manual) Monocytes # (Manual) Platelet Estimate Plt Morphology Comment RBC Morphology Acanthocytes (Spur) Smear Tech's Comments Smear Path Review SEE NOTE PT INR APTT O2 Saturation ABG pH at Pt Temp ABG pH (Temp Correct) ABG pCO2 at Pt Temp ABG pCO2 (Temp Corrct ABG pO2 at Pt Temp ABG pO2 (Temp Correct ABG HCO3 ABG Base Excess (Actual) VBG pH VBG pCO2 VBG pO2 VBG HCO3 VBG O2 Saturation VBG Base Excess Sodium Potassium Chloride Carbon Dioxide Anion Gap BUN Creatinine Estim Creat Clear Calc Estimated GFR POC Glucose 99 116 H Random Glucose Fasting Glucose Osmolality Lactic Acid Calcium Phosphorus Magnesium Total Bilirubin Direct Bilirubin AST ALT Alkaline Phosphatase Ammonia Troponin I High Sens B-Natriuretic Peptide Total Protein Albumin Procalcitonin TSH Random Cortisol Urine Color Urine Appearance Urine pH Ur Specific [place] Urine Protein Urine Glucose (UA) Urine Ketones Urine Blood Urine Nitrite Ur Leukocyte Esterase Urine RBC Urine WBC Ur Squamous Epith Cells Urine Bacteria Urine Mucus Urine Osmolality Ur Random Sodium Ur Random Potassium Ur Random Chloride Stool Occult Blood Stool Leukocytes, Qual Random Vancomycin Digoxin C. difficile Tox B Gene COVID-19 (JESSY) COVID-19 Clin Com Influenza Type A (PCR) Influenza Type B (PCR) RSV RNA Qual (PCR) SARS-CoV-2 RNA (RT-PCR) Blood Type Antibody Screen Crossmatch 11/26/21 11/26/21 11/27/21 06:32 06:32 08:14 WBC 10.3 RBC 5.13 Hgb 9.7 L Hct 32.8 L MCV 63.9 L MCH 18.9 L MCHC 29.6 L RDW 20.3 H Plt Count 401 H MPV 9.1 L Immature Gran % (Auto) 1.5 H Neut % (Auto) 94.9 H Lymph % (Auto) 2.7 L [place] % (Auto) 0.8 L Eos % (Auto) 0.0 Baso % (Auto) 0.1 Lymph # (Auto) 0.3 L [place] # (Auto) 0.1 Eos # (Auto) 0.0 Baso # (Auto) 0.0 Abs Immat Gran (auto) 0.15 H Absolute Neuts (auto) 9.8 H Absolute Nucleated RBC 0.070 H Nucleated RBC % (auto) 0.7 H Neutrophils % (Manual) Band Neutrophils % Lymphocytes % (Manual) Monocytes % (Manual) Abs Neuts (Manual) Lymphocytes # (Manual) Monocytes # (Manual) Platelet Estimate Plt Morphology Comment RBC Morphology Acanthocytes (Spur) Smear Tech's Comments VERIFIED Smear Path Review PT INR APTT O2 Saturation ABG pH at Pt Temp ABG pH (Temp Correct) ABG pCO2 at Pt Temp ABG pCO2 (Temp Corrct ABG pO2 at Pt Temp ABG pO2 (Temp Correct ABG HCO3 ABG Base Excess (Actual) VBG pH VBG pCO2 VBG pO2 VBG HCO3 VBG O2 Saturation VBG Base Excess Sodium 121 L Potassium 5.0 Chloride 87 L Carbon Dioxide 27 Anion Gap 12 BUN 15 Creatinine 0.78 Estim Creat Clear Calc 88.1 Estimated GFR > 60 POC Glucose Random Glucose Fasting Glucose 64 Osmolality Lactic Acid Calcium 8.7 Phosphorus Magnesium Total Bilirubin 0.4 Direct Bilirubin AST 28 ALT 25 Alkaline Phosphatase 114 Ammonia Troponin I High Sens B-Natriuretic Peptide Total Protein 6.7 Albumin 3.7 Procalcitonin TSH Random Cortisol 19.8 Urine Color Urine Appearance Urine pH Ur Specific [place] Urine Protein Urine Glucose (UA) Urine Ketones Urine Blood Urine Nitrite Ur Leukocyte Esterase Urine RBC Urine WBC Ur Squamous Epith Cells Urine Bacteria Urine Mucus Urine Osmolality Ur Random Sodium Ur Random Potassium Ur Random Chloride Stool Occult Blood Stool Leukocytes, Qual Random Vancomycin Digoxin C. difficile Tox B Gene COVID-19 (JESSY) COVID-19 Clin Com Influenza Type A (PCR) Influenza Type B (PCR) RSV RNA Qual (PCR) SARS-CoV-2 RNA (RT-PCR) Blood Type Antibody Screen Crossmatch 11/27/21 11/27/21 11/27/21 08:14 21:21 21:31 WBC 9.9 RBC 4.52 Hgb 8.6 L Hct 29.0 L MCV 64.2 L MCH 19.0 L MCHC 29.7 L RDW 19.9 H Plt Count 341 MPV 9.3 L Immature Gran % (Auto) 0.7 H Neut % (Auto) 94.3 H Lymph % (Auto) 2.4 L [place] % (Auto) 2.6 Eos % (Auto) 0.0 Baso % (Auto) 0.0 Lymph # (Auto) 0.2 L [place] # (Auto) 0.3 Eos # (Auto) 0.0 Baso # (Auto) 0.0 Abs Immat Gran (auto) 0.07 H Absolute Neuts (auto) 9.3 H Absolute Nucleated RBC 0.100 H Nucleated RBC % (auto) 1.0 H Neutrophils % (Manual) Band Neutrophils % Lymphocytes % (Manual) Monocytes % (Manual) Abs Neuts (Manual) Lymphocytes # (Manual) Monocytes # (Manual) Platelet Estimate Plt Morphology Comment RBC Morphology Acanthocytes (Spur) Smear Tech's Comments VERIFIED Smear Path Review PT INR APTT O2 Saturation ABG pH at Pt Temp ABG pH (Temp Correct) ABG pCO2 at Pt Temp ABG pCO2 (Temp Corrct ABG pO2 at Pt Temp ABG pO2 (Temp Correct ABG HCO3 ABG Base Excess (Actual) VBG pH VBG pCO2 VBG pO2 VBG HCO3 VBG O2 Saturation VBG Base Excess Sodium 124 L Potassium 5.7 H Chloride 88 L Carbon Dioxide 25 Anion Gap 17 BUN 26 H D Creatinine 0.83 Estim Creat Clear Calc 92.7 Estimated GFR > 60 POC Glucose 215 H Random Glucose Fasting Glucose 193 H Osmolality Lactic Acid Calcium 9.0 Phosphorus Magnesium Total Bilirubin 0.5 Direct Bilirubin AST 31 ALT 30 Alkaline Phosphatase 121 H Ammonia Troponin I High Sens B-Natriuretic Peptide Total Protein 6.8 Albumin 3.8 Procalcitonin TSH Random Cortisol Urine Color Urine Appearance Urine pH Ur Specific [place] Urine Protein Urine Glucose (UA) Urine Ketones Urine Blood Urine Nitrite Ur Leukocyte Esterase Urine RBC Urine WBC Ur Squamous Epith Cells Urine Bacteria Urine Mucus Urine Osmolality Ur Random Sodium Ur Random Potassium Ur Random Chloride Stool Occult Blood Stool Leukocytes, Qual Random Vancomycin Digoxin C. difficile Tox B Gene COVID-19 (JESSY) COVID-19 Clin Com Influenza Type A (PCR) Influenza Type B (PCR) RSV RNA Qual (PCR) SARS-CoV-2 RNA (RT-PCR) Blood Type Antibody Screen Crossmatch 11/27/21 11/27/21 11/28/21 21:31 21:31 00:19 WBC RBC Hgb Hct MCV MCH MCHC RDW Plt Count MPV Immature Gran % (Auto) Neut % (Auto) Lymph % (Auto) [place] % (Auto) Eos % (Auto) Baso % (Auto) Lymph # (Auto) [place] # (Auto) Eos # (Auto) Baso # (Auto) Abs Immat Gran (auto) Absolute Neuts (auto) Absolute Nucleated RBC Nucleated RBC % (auto) Neutrophils % (Manual) Band Neutrophils % Lymphocytes % (Manual) Monocytes % (Manual) Abs Neuts (Manual) Lymphocytes # (Manual) Monocytes # (Manual) Platelet Estimate Plt Morphology Comment RBC Morphology Acanthocytes (Spur) Smear Tech's Comments Smear Path Review PT 26.2 H INR 2.3 H APTT O2 Saturation ABG pH at Pt Temp ABG pH (Temp Correct) ABG pCO2 at Pt Temp ABG pCO2 (Temp Corrct ABG pO2 at Pt Temp ABG pO2 (Temp Correct ABG HCO3 ABG Base Excess (Actual) VBG pH VBG pCO2 VBG pO2 VBG HCO3 VBG O2 Saturation VBG Base Excess Sodium 123 L Potassium 5.0 Chloride 86 L Carbon Dioxide 26 Anion Gap 16 BUN 37 H Creatinine 1.00 Estim Creat Clear Calc 77.0 Estimated GFR 55 POC Glucose 225 H Random Glucose 269 H Fasting Glucose Osmolality Lactic Acid Calcium 8.7 Phosphorus 3.6 Magnesium 2.0 Total Bilirubin 0.5 Direct Bilirubin 0.3 AST 27 ALT 26 Alkaline Phosphatase 99 Ammonia Troponin I High Sens B-Natriuretic Peptide Total Protein 5.9 L Albumin 3.3 L Procalcitonin TSH Random Cortisol Urine Color Urine Appearance Urine pH Ur Specific [place] Urine Protein Urine Glucose (UA) Urine Ketones Urine Blood Urine Nitrite Ur Leukocyte Esterase Urine RBC Urine WBC Ur Squamous Epith Cells Urine Bacteria Urine Mucus Urine Osmolality Ur Random Sodium Ur Random Potassium Ur Random Chloride Stool Occult Blood Stool Leukocytes, Qual Random Vancomycin Digoxin C. difficile Tox B Gene COVID-19 (JESSY) COVID-19 Clin Com Influenza Type A (PCR) Influenza Type B (PCR) RSV RNA Qual (PCR) SARS-CoV-2 RNA (RT-PCR) Blood Type Antibody Screen Crossmatch 11/28/21 11/28/21 11/28/21 01:02 03:36 03:37 WBC RBC Hgb Hct MCV MCH MCHC RDW Plt Count MPV Immature Gran % (Auto) Neut % (Auto) Lymph % (Auto) [place] % (Auto) Eos % (Auto) Baso % (Auto) Lymph # (Auto) [place] # (Auto) Eos # (Auto) Baso # (Auto) Abs Immat Gran (auto) Absolute Neuts (auto) Absolute Nucleated RBC Nucleated RBC % (auto) Neutrophils % (Manual) Band Neutrophils % Lymphocytes % (Manual) Monocytes % (Manual) Abs Neuts (Manual) Lymphocytes # (Manual) Monocytes # (Manual) Platelet Estimate Plt Morphology Comment RBC Morphology Acanthocytes (Spur) Smear Tech's Comments Smear Path Review PT INR APTT O2 Saturation ABG pH at Pt Temp ABG pH (Temp Correct) ABG pCO2 at Pt Temp ABG pCO2 (Temp Corrct ABG pO2 at Pt Temp ABG pO2 (Temp Correct ABG HCO3 ABG Base Excess (Actual) VBG pH 7.46 H VBG pCO2 35 VBG pO2 40 VBG HCO3 25 VBG O2 Saturation 58.0 VBG Base Excess 1.6 Sodium Potassium Chloride Carbon Dioxide Anion Gap BUN Creatinine Estim Creat Clear Calc Estimated GFR POC Glucose Random Glucose Fasting Glucose Osmolality Lactic Acid Calcium Phosphorus Magnesium Total Bilirubin Direct Bilirubin AST ALT Alkaline Phosphatase Ammonia Troponin I High Sens B-Natriuretic Peptide Total Protein Albumin Procalcitonin TSH Random Cortisol Urine Color Urine Appearance Urine pH Ur Specific [place] Urine Protein Urine Glucose (UA) Urine Ketones Urine Blood Urine Nitrite Ur Leukocyte Esterase Urine RBC Urine WBC Ur Squamous Epith Cells Urine Bacteria Urine Mucus Urine Osmolality 539 Ur Random Sodium < 20.0 Ur Random Potassium Ur Random Chloride Stool Occult Blood Stool Leukocytes, Qual Random Vancomycin Digoxin C. difficile Tox B Gene COVID-19 (JESSY) COVID-19 Clin Com Influenza Type A (PCR) Influenza Type B (PCR) RSV RNA Qual (PCR) SARS-CoV-2 RNA (RT-PCR) Blood Type Antibody Screen Crossmatch 11/28/21 11/28/21 11/28/21 05:21 05:30 05:30 WBC 10.8 RBC 4.50 Hgb 8.5 L Hct 28.2 L MCV 62.7 L MCH 18.9 L MCHC 30.1 L RDW 19.6 H Plt Count 308 MPV 9.0 L Immature Gran % (Auto) 1.1 H Neut % (Auto) 90.0 H Lymph % (Auto) 4.0 L [place] % (Auto) 4.8 Eos % (Auto) 0.0 Baso % (Auto) 0.1 Lymph # (Auto) 0.4 L [place] # (Auto) 0.5 Eos # (Auto) 0.0 Baso # (Auto) 0.0 Abs Immat Gran (auto) 0.12 H Absolute Neuts (auto) 9.7 H Absolute Nucleated RBC 0.130 H Nucleated RBC % (auto) 1.2 H Neutrophils % (Manual) Band Neutrophils % Lymphocytes % (Manual) Monocytes % (Manual) Abs Neuts (Manual) Lymphocytes # (Manual) Monocytes # (Manual) Platelet Estimate Plt Morphology Comment RBC Morphology Acanthocytes (Spur) Smear Tech's Comments Smear Path Review PT INR APTT O2 Saturation ABG pH at Pt Temp ABG pH (Temp Correct) ABG pCO2 at Pt Temp ABG pCO2 (Temp Corrct ABG pO2 at Pt Temp ABG pO2 (Temp Correct ABG HCO3 ABG Base Excess (Actual) VBG pH 7.52 H VBG pCO2 29 VBG pO2 45 VBG HCO3 24 VBG O2 Saturation 71.0 VBG Base Excess 2.4 Sodium 123 L Potassium 5.0 Chloride 88 L Carbon Dioxide 24 Anion Gap 16 BUN 33 H Creatinine 0.82 Estim Creat Clear Calc 93.9 Estimated GFR > 60 POC Glucose Random Glucose 238 H Fasting Glucose Osmolality Lactic Acid Calcium 8.7 Phosphorus 2.6 L Magnesium 1.9 Total Bilirubin Direct Bilirubin AST ALT Alkaline Phosphatase Ammonia Troponin I High Sens B-Natriuretic Peptide Total Protein Albumin Procalcitonin TSH Random Cortisol Urine Color Urine Appearance Urine pH Ur Specific [place] Urine Protein Urine Glucose (UA) Urine Ketones Urine Blood Urine Nitrite Ur Leukocyte Esterase Urine RBC Urine WBC Ur Squamous Epith Cells Urine Bacteria Urine Mucus Urine Osmolality Ur Random Sodium Ur Random Potassium Ur Random Chloride Stool Occult Blood Stool Leukocytes, Qual Random Vancomycin Digoxin C. difficile Tox B Gene COVID-19 (JESSY) COVID-19 Clin Com Influenza Type A (PCR) Influenza Type B (PCR) RSV RNA Qual (PCR) SARS-CoV-2 RNA (RT-PCR) Blood Type Antibody Screen Crossmatch 11/28/21 11/28/21 11/28/21 05:30 11:51 13:27 WBC RBC Hgb Hct MCV MCH MCHC RDW Plt Count MPV Immature Gran % (Auto) Neut % (Auto) Lymph % (Auto) [place] % (Auto) Eos % (Auto) Baso % (Auto) Lymph # (Auto) [place] # (Auto) Eos # (Auto) Baso # (Auto) Abs Immat Gran (auto) Absolute Neuts (auto) Absolute Nucleated RBC Nucleated RBC % (auto) Neutrophils % (Manual) Band Neutrophils % Lymphocytes % (Manual) Monocytes % (Manual) Abs Neuts (Manual) Lymphocytes # (Manual) Monocytes # (Manual) Platelet Estimate Plt Morphology Comment RBC Morphology Acanthocytes (Spur) Smear Tech's Comments Smear Path Review PT INR APTT O2 Saturation ABG pH at Pt Temp ABG pH (Temp Correct) ABG pCO2 at Pt Temp ABG pCO2 (Temp Corrct ABG pO2 at Pt Temp ABG pO2 (Temp Correct ABG HCO3 ABG Base Excess (Actual) VBG pH VBG pCO2 VBG pO2 VBG HCO3 VBG O2 Saturation VBG Base Excess Sodium Potassium Chloride Carbon Dioxide Anion Gap BUN Creatinine Estim Creat Clear Calc Estimated GFR POC Glucose 243 H Random Glucose Fasting Glucose Osmolality Lactic Acid Calcium Phosphorus Magnesium Total Bilirubin Direct Bilirubin AST ALT Alkaline Phosphatase Ammonia Troponin I High Sens B-Natriuretic Peptide 170 H Total Protein Albumin Procalcitonin TSH Random Cortisol Urine Color Urine Appearance Urine pH Ur Specific [place] Urine Protein Urine Glucose (UA) Urine Ketones Urine Blood Urine Nitrite Ur Leukocyte Esterase Urine RBC Urine WBC Ur Squamous Epith Cells Urine Bacteria Urine Mucus Urine Osmolality Ur Random Sodium Ur Random Potassium Ur Random Chloride < 20.0 Stool Occult Blood Stool Leukocytes, Qual Random Vancomycin Digoxin C. difficile Tox B Gene COVID-19 (JESSY) COVID-19 Clin Com Influenza Type A (PCR) Influenza Type B (PCR) RSV RNA Qual (PCR) SARS-CoV-2 RNA (RT-PCR) Blood Type Antibody Screen Crossmatch 11/28/21 11/28/21 11/29/21 17:30 18:09 05:02 WBC 11.8 H RBC 4.53 Hgb 8.6 L Hct 27.9 L MCV 61.6 L MCH 19.0 L MCHC 30.8 L RDW 19.9 H Plt Count 313 MPV 9.6 Immature Gran % (Auto) 0.8 H Neut % (Auto) 92.8 H Lymph % (Auto) 1.3 L [place] % (Auto) 5.0 Eos % (Auto) 0.0 Baso % (Auto) 0.1 Lymph # (Auto) 0.2 L [place] # (Auto) 0.6 Eos # (Auto) 0.0 Baso # (Auto) 0.0 Abs Immat Gran (auto) 0.10 H Absolute Neuts (auto) 11.0 H Absolute Nucleated RBC 0.090 H Nucleated RBC % (auto) 0.8 H Neutrophils % (Manual) Band Neutrophils % Lymphocytes % (Manual) Monocytes % (Manual) Abs Neuts (Manual) Lymphocytes # (Manual) Monocytes # (Manual) Platelet Estimate Plt Morphology Comment RBC Morphology Acanthocytes (Spur) Smear Tech's Comments VERIFIED Smear Path Review PT INR APTT O2 Saturation ABG pH at Pt Temp ABG pH (Temp Correct) ABG pCO2 at Pt Temp ABG pCO2 (Temp Corrct ABG pO2 at Pt Temp ABG pO2 (Temp Correct ABG HCO3 ABG Base Excess (Actual) VBG pH VBG pCO2 VBG pO2 VBG HCO3 VBG O2 Saturation VBG Base Excess Sodium 126 L Potassium 4.4 Chloride 88 L Carbon Dioxide 29 Anion Gap 13 BUN 36 H Creatinine 0.85 Estim Creat Clear Calc 90.6 Estimated GFR > 60 POC Glucose 242 H Random Glucose 282 H Fasting Glucose Osmolality Lactic Acid Calcium 9.0 Phosphorus Magnesium Total Bilirubin Direct Bilirubin AST ALT Alkaline Phosphatase Ammonia Troponin I High Sens B-Natriuretic Peptide Total Protein Albumin Procalcitonin TSH Random Cortisol Urine Color Urine Appearance Urine pH Ur Specific [place] Urine Protein Urine Glucose (UA) Urine Ketones Urine Blood Urine Nitrite Ur Leukocyte Esterase Urine RBC Urine WBC Ur Squamous Epith Cells Urine Bacteria Urine Mucus Urine Osmolality Ur Random Sodium Ur Random Potassium Ur Random Chloride Stool Occult Blood Stool Leukocytes, Qual Random Vancomycin Digoxin C. difficile Tox B Gene COVID-19 (JESSY) COVID-19 Clin Com Influenza Type A (PCR) Influenza Type B (PCR) RSV RNA Qual (PCR) SARS-CoV-2 RNA (RT-PCR) Blood Type Antibody Screen Crossmatch 11/29/21 11/29/21 11/29/21 05:02 05:02 05:03 WBC RBC Hgb Hct MCV MCH MCHC RDW Plt Count MPV Immature Gran % (Auto) Neut % (Auto) Lymph % (Auto) [place] % (Auto) Eos % (Auto) Baso % (Auto) Lymph # (Auto) [place] # (Auto) Eos # (Auto) Baso # (Auto) Abs Immat Gran (auto) Absolute Neuts (auto) Absolute Nucleated RBC Nucleated RBC % (auto) Neutrophils % (Manual) Band Neutrophils % Lymphocytes % (Manual) Monocytes % (Manual) Abs Neuts (Manual) Lymphocytes # (Manual) Monocytes # (Manual) Platelet Estimate Plt Morphology Comment RBC Morphology Acanthocytes (Spur) Smear Tech's Comments Smear Path Review PT INR APTT O2 Saturation ABG pH at Pt Temp ABG pH (Temp Correct) ABG pCO2 at Pt Temp ABG pCO2 (Temp Corrct ABG pO2 at Pt Temp ABG pO2 (Temp Correct ABG HCO3 ABG Base Excess (Actual) VBG pH 7.55 H VBG pCO2 29 VBG pO2 47 VBG HCO3 26 VBG O2 Saturation 77.0 VBG Base Excess 4.5 Sodium 128 L Potassium 4.7 Chloride 92 L Carbon Dioxide 28 Anion Gap 13 BUN 33 H Creatinine 0.87 Estim Creat Clear Calc 88.5 Estimated GFR > 60 POC Glucose Random Glucose 271 H Fasting Glucose Osmolality Lactic Acid Calcium 8.9 Phosphorus 2.7 Magnesium 2.1 Total Bilirubin Direct Bilirubin AST ALT Alkaline Phosphatase Ammonia Troponin I High Sens B-Natriuretic Peptide 161 H Total Protein Albumin Procalcitonin TSH Random Cortisol Urine Color Urine Appearance Urine pH Ur Specific [place] Urine Protein Urine Glucose (UA) Urine Ketones Urine Blood Urine Nitrite Ur Leukocyte Esterase Urine RBC Urine WBC Ur Squamous Epith Cells Urine Bacteria Urine Mucus Urine Osmolality Ur Random Sodium Ur Random Potassium Ur Random Chloride Stool Occult Blood Stool Leukocytes, Qual Random Vancomycin Digoxin C. difficile Tox B Gene COVID-19 (JESSY) COVID-19 Clin Com Influenza Type A (PCR) Influenza Type B (PCR) RSV RNA Qual (PCR) SARS-CoV-2 RNA (RT-PCR) Blood Type Antibody Screen Crossmatch 11/30/21 11/30/21 11/30/21 05:46 05:46 05:57 WBC 13.7 H RBC 4.91 Hgb 9.2 L Hct 31.4 L MCV 64.0 L MCH 18.7 L MCHC 29.3 L RDW 20.5 H Plt Count 295 MPV 9.7 Immature Gran % (Auto) 0.9 H Neut % (Auto) 90.3 H Lymph % (Auto) 2.0 L [place] % (Auto) 6.7 Eos % (Auto) 0.0 Baso % (Auto) 0.1 Lymph # (Auto) 0.3 L [place] # (Auto) 0.9 Eos # (Auto) 0.0 Baso # (Auto) 0.0 Abs Immat Gran (auto) 0.12 H Absolute Neuts (auto) 12.3 H Absolute Nucleated RBC 0.040 H Nucleated RBC % (auto) 0.3 H Neutrophils % (Manual) Band Neutrophils % Lymphocytes % (Manual) Monocytes % (Manual) Abs Neuts (Manual) Lymphocytes # (Manual) Monocytes # (Manual) Platelet Estimate Plt Morphology Comment RBC Morphology Acanthocytes (Spur) Smear Tech's Comments VERIFIED Smear Path Review PT INR APTT O2 Saturation ABG pH at Pt Temp ABG pH (Temp Correct) ABG pCO2 at Pt Temp ABG pCO2 (Temp Corrct ABG pO2 at Pt Temp ABG pO2 (Temp Correct ABG HCO3 ABG Base Excess (Actual) VBG pH 7.40 VBG pCO2 45 VBG pO2 49 VBG HCO3 28 H VBG O2 Saturation 73.0 VBG Base Excess 3.7 Sodium 130 L Potassium 5.6 H Chloride 93 L Carbon Dioxide 30 H Anion Gap 13 BUN 43 H Creatinine 1.18 Estim Creat Clear Calc 65.2 Estimated GFR 46 POC Glucose Random Glucose 358 H* Fasting Glucose Osmolality Lactic Acid Calcium 8.7 Phosphorus 3.8 Magnesium 2.3 Total Bilirubin Direct Bilirubin AST ALT Alkaline Phosphatase Ammonia Troponin I High Sens B-Natriuretic Peptide Total Protein Albumin 3.4 L Procalcitonin TSH Random Cortisol Urine Color Urine Appearance Urine pH Ur Specific [place] Urine Protein Urine Glucose (UA) Urine Ketones Urine Blood Urine Nitrite Ur Leukocyte Esterase Urine RBC Urine WBC Ur Squamous Epith Cells Urine Bacteria Urine Mucus Urine Osmolality Ur Random Sodium Ur Random Potassium Ur Random Chloride Stool Occult Blood Stool Leukocytes, Qual Random Vancomycin Digoxin C. difficile Tox B Gene COVID-19 (JESSY) COVID-19 Clin Com Influenza Type A (PCR) Influenza Type B (PCR) RSV RNA Qual (PCR) SARS-CoV-2 RNA (RT-PCR) Blood Type Antibody Screen Crossmatch 11/30/21 11/30/21 11/30/21 12:15 13:50 16:43 WBC RBC Hgb Hct MCV MCH MCHC RDW Plt Count MPV Immature Gran % (Auto) Neut % (Auto) Lymph % (Auto) [place] % (Auto) Eos % (Auto) Baso % (Auto) Lymph # (Auto) [place] # (Auto) Eos # (Auto) Baso # (Auto) Abs Immat Gran (auto) Absolute Neuts (auto) Absolute Nucleated RBC Nucleated RBC % (auto) Neutrophils % (Manual) Band Neutrophils % Lymphocytes % (Manual) Monocytes % (Manual) Abs Neuts (Manual) Lymphocytes # (Manual) Monocytes # (Manual) Platelet Estimate Plt Morphology Comment RBC Morphology Acanthocytes (Spur) Smear Tech's Comments Smear Path Review PT INR APTT O2 Saturation ABG pH at Pt Temp ABG pH (Temp Correct) ABG pCO2 at Pt Temp ABG pCO2 (Temp Corrct ABG pO2 at Pt Temp ABG pO2 (Temp Correct ABG HCO3 ABG Base Excess (Actual) VBG pH VBG pCO2 VBG pO2 VBG HCO3 VBG O2 Saturation VBG Base Excess Sodium 132 L Potassium 5.1 Chloride 93 L Carbon Dioxide 30 H Anion Gap 14 BUN 41 H Creatinine 1.16 Estim Creat Clear Calc 66.4 Estimated GFR 46 POC Glucose 260 H Random Glucose 351 H* Fasting Glucose Osmolality Lactic Acid Calcium 8.7 Phosphorus Magnesium Total Bilirubin Direct Bilirubin AST ALT Alkaline Phosphatase Ammonia 29 Troponin I High Sens B-Natriuretic Peptide Total Protein Albumin Procalcitonin TSH Random Cortisol Urine Color Urine Appearance Urine pH Ur Specific [place] Urine Protein Urine Glucose (UA) Urine Ketones Urine Blood Urine Nitrite Ur Leukocyte Esterase Urine RBC Urine WBC Ur Squamous Epith Cells Urine Bacteria Urine Mucus Urine Osmolality Ur Random Sodium Ur Random Potassium Ur Random Chloride Stool Occult Blood Stool Leukocytes, Qual Random Vancomycin Digoxin C. difficile Tox B Gene COVID-19 (JESSY) COVID-19 Clin Com Influenza Type A (PCR) Influenza Type B (PCR) RSV RNA Qual (PCR) SARS-CoV-2 RNA (RT-PCR) Blood Type Antibody Screen Crossmatch 11/30/21 12/01/21 12/01/21 19:50 05:15 05:15 WBC 20.1 H RBC 5.09 Hgb 9.5 L Hct 32.9 L MCV 64.6 L MCH 18.7 L MCHC 28.9 L RDW 20.2 H Plt Count 325 MPV 9.1 L Immature Gran % (Auto) 0.8 H Neut % (Auto) 83.7 H Lymph % (Auto) 5.1 L [place] % (Auto) 10.2 Eos % (Auto) 0.1 Baso % (Auto) 0.1 Lymph # (Auto) 1.0 L [place] # (Auto) 2.1 H Eos # (Auto) 0.0 Baso # (Auto) 0.0 Abs Immat Gran (auto) 0.16 H Absolute Neuts (auto) 16.8 H Absolute Nucleated RBC 0.090 H Nucleated RBC % (auto) 0.4 H Neutrophils % (Manual) Band Neutrophils % Lymphocytes % (Manual) Monocytes % (Manual) Abs Neuts (Manual) Lymphocytes # (Manual) Monocytes # (Manual) Platelet Estimate Plt Morphology Comment RBC Morphology Acanthocytes (Spur) Smear Tech's Comments VERIFIED Smear Path Review PT INR APTT O2 Saturation ABG pH at Pt Temp ABG pH (Temp Correct) ABG pCO2 at Pt Temp ABG pCO2 (Temp Corrct ABG pO2 at Pt Temp ABG pO2 (Temp Correct ABG HCO3 ABG Base Excess (Actual) VBG pH VBG pCO2 VBG pO2 VBG HCO3 VBG O2 Saturation VBG Base Excess Sodium 138 Potassium 4.6 Chloride 98 Carbon Dioxide 31 H Anion Gap 14 BUN 32 H Creatinine 0.81 Estim Creat Clear Calc 95.0 Estimated GFR > 60 POC Glucose 175 H Random Glucose 110 Fasting Glucose Osmolality Lactic Acid Calcium 8.9 Phosphorus 3.0 Magnesium 2.2 Total Bilirubin 1.0 Direct Bilirubin AST 32 H ALT 31 Alkaline Phosphatase 81 Ammonia Troponin I High Sens B-Natriuretic Peptide Total Protein 6.4 L Albumin 3.7 Procalcitonin TSH Random Cortisol Urine Color Urine Appearance Urine pH Ur Specific [place] Urine Protein Urine Glucose (UA) Urine Ketones Urine Blood Urine Nitrite Ur Leukocyte Esterase Urine RBC Urine WBC Ur Squamous Epith Cells Urine Bacteria Urine Mucus Urine Osmolality Ur Random Sodium Ur Random Potassium Ur Random Chloride Stool Occult Blood Stool Leukocytes, Qual Random Vancomycin Digoxin C. difficile Tox B Gene COVID-19 (JESSY) COVID-19 Clin Com Influenza Type A (PCR) Influenza Type B (PCR) RSV RNA Qual (PCR) SARS-CoV-2 RNA (RT-PCR) Blood Type Antibody Screen Crossmatch 12/01/21 12/01/21 12/01/21 05:29 07:29 11:39 WBC RBC Hgb Hct MCV MCH MCHC RDW Plt Count MPV Immature Gran % (Auto) Neut % (Auto) Lymph % (Auto) [place] % (Auto) Eos % (Auto) Baso % (Auto) Lymph # (Auto) [place] # (Auto) Eos # (Auto) Baso # (Auto) Abs Immat Gran (auto) Absolute Neuts (auto) Absolute Nucleated RBC Nucleated RBC % (auto) Neutrophils % (Manual) Band Neutrophils % Lymphocytes % (Manual) Monocytes % (Manual) Abs Neuts (Manual) Lymphocytes # (Manual) Monocytes # (Manual) Platelet Estimate Plt Morphology Comment RBC Morphology Acanthocytes (Spur) Smear Tech's Comments Smear Path Review PT INR APTT O2 Saturation ABG pH at Pt Temp ABG pH (Temp Correct) ABG pCO2 at Pt Temp ABG pCO2 (Temp Corrct ABG pO2 at Pt Temp ABG pO2 (Temp Correct ABG HCO3 ABG Base Excess (Actual) VBG pH 7.41 VBG pCO2 51 VBG pO2 55 VBG HCO3 33 H VBG O2 Saturation 81.0 VBG Base Excess 7.9 Sodium Potassium Chloride Carbon Dioxide Anion Gap BUN Creatinine Estim Creat Clear Calc Estimated GFR POC Glucose 119 H 150 H Random Glucose Fasting Glucose Osmolality Lactic Acid Calcium Phosphorus Magnesium Total Bilirubin Direct Bilirubin AST ALT Alkaline Phosphatase Ammonia Troponin I High Sens B-Natriuretic Peptide Total Protein Albumin Procalcitonin TSH Random Cortisol Urine Color Urine Appearance Urine pH Ur Specific [place] Urine Protein Urine Glucose (UA) Urine Ketones Urine Blood Urine Nitrite Ur Leukocyte Esterase Urine RBC Urine WBC Ur Squamous Epith Cells Urine Bacteria Urine Mucus Urine Osmolality Ur Random Sodium Ur Random Potassium Ur Random Chloride Stool Occult Blood Stool Leukocytes, Qual Random Vancomycin Digoxin C. difficile Tox B Gene COVID-19 (JESSY) COVID-19 Clin Com Influenza Type A (PCR) Influenza Type B (PCR) RSV RNA Qual (PCR) SARS-CoV-2 RNA (RT-PCR) Blood Type Antibody Screen Crossmatch 12/01/21 12/01/21 12/02/21 16:33 20:59 05:18 WBC 22.6 H RBC 5.00 Hgb 9.5 L Hct 33.2 L MCV 66.4 L MCH 19.0 L MCHC 28.6 L RDW 21.2 H Plt Count 326 MPV 9.2 L Immature Gran % (Auto) 1.0 H Neut % (Auto) 86.5 H Lymph % (Auto) 2.2 L [place] % (Auto) 10.2 Eos % (Auto) 0.0 Baso % (Auto) 0.1 Lymph # (Auto) 0.5 L [place] # (Auto) 2.3 H Eos # (Auto) 0.0 Baso # (Auto) 0.0 Abs Immat Gran (auto) 0.23 H Absolute Neuts (auto) 19.5 H Absolute Nucleated RBC 0.090 H Nucleated RBC % (auto) 0.4 H Neutrophils % (Manual) Band Neutrophils % Lymphocytes % (Manual) Monocytes % (Manual) Abs Neuts (Manual) Lymphocytes # (Manual) Monocytes # (Manual) Platelet Estimate Plt Morphology Comment RBC Morphology Acanthocytes (Spur) Smear Tech's Comments VERIFIED Smear Path Review PT INR APTT O2 Saturation ABG pH at Pt Temp ABG pH (Temp Correct) ABG pCO2 at Pt Temp ABG pCO2 (Temp Corrct ABG pO2 at Pt Temp ABG pO2 (Temp Correct ABG HCO3 ABG Base Excess (Actual) VBG pH VBG pCO2 VBG pO2 VBG HCO3 VBG O2 Saturation VBG Base Excess Sodium Potassium Chloride Carbon Dioxide Anion Gap BUN Creatinine Estim Creat Clear Calc Estimated GFR POC Glucose 149 H 161 H Random Glucose Fasting Glucose Osmolality Lactic Acid Calcium Phosphorus Magnesium Total Bilirubin Direct Bilirubin AST ALT Alkaline Phosphatase Ammonia Troponin I High Sens B-Natriuretic Peptide Total Protein Albumin Procalcitonin TSH Random Cortisol Urine Color Urine Appearance Urine pH Ur Specific [place] Urine Protein Urine Glucose (UA) Urine Ketones Urine Blood Urine Nitrite Ur Leukocyte Esterase Urine RBC Urine WBC Ur Squamous Epith Cells Urine Bacteria Urine Mucus Urine Osmolality Ur Random Sodium Ur Random Potassium Ur Random Chloride Stool Occult Blood Stool Leukocytes, Qual Random Vancomycin Digoxin C. difficile Tox B Gene COVID-19 (JESSY) COVID-19 Clin Com Influenza Type A (PCR) Influenza Type B (PCR) RSV RNA Qual (PCR) SARS-CoV-2 RNA (RT-PCR) Blood Type Antibody Screen Crossmatch 12/02/21 12/02/21 12/02/21 05:18 05:25 07:14 WBC RBC Hgb Hct MCV MCH MCHC RDW Plt Count MPV Immature Gran % (Auto) Neut % (Auto) Lymph % (Auto) [place] % (Auto) Eos % (Auto) Baso % (Auto) Lymph # (Auto) [place] # (Auto) Eos # (Auto) Baso # (Auto) Abs Immat Gran (auto) Absolute Neuts (auto) Absolute Nucleated RBC Nucleated RBC % (auto) Neutrophils % (Manual) Band Neutrophils % Lymphocytes % (Manual) Monocytes % (Manual) Abs Neuts (Manual) Lymphocytes # (Manual) Monocytes # (Manual) Platelet Estimate Plt Morphology Comment RBC Morphology Acanthocytes (Spur) Smear Tech's Comments Smear Path Review PT INR APTT O2 Saturation ABG pH at Pt Temp ABG pH (Temp Correct) ABG pCO2 at Pt Temp ABG pCO2 (Temp Corrct ABG pO2 at Pt Temp ABG pO2 (Temp Correct ABG HCO3 ABG Base Excess (Actual) VBG pH 7.38 VBG pCO2 61 VBG pO2 46 VBG HCO3 36 H VBG O2 Saturation 70.0 VBG Base Excess 9.9 Sodium 144 Potassium 4.6 Chloride 102 Carbon Dioxide 31 H Anion Gap 16 BUN 25 H Creatinine 0.78 Estim Creat Clear Calc 98.7 Estimated GFR > 60 POC Glucose 162 H Random Glucose 155 H Fasting Glucose Osmolality Lactic Acid Calcium 8.9 Phosphorus 3.2 Magnesium 2.4 Total Bilirubin Direct Bilirubin AST ALT Alkaline Phosphatase Ammonia Troponin I High Sens B-Natriuretic Peptide Total Protein Albumin 3.7 Procalcitonin TSH Random Cortisol Urine Color Urine Appearance Urine pH Ur Specific [place] Urine Protein Urine Glucose (UA) Urine Ketones Urine Blood Urine Nitrite Ur Leukocyte Esterase Urine RBC Urine WBC Ur Squamous Epith Cells Urine Bacteria Urine Mucus Urine Osmolality Ur Random Sodium Ur Random Potassium Ur Random Chloride Stool Occult Blood Stool Leukocytes, Qual Random Vancomycin Digoxin C. difficile Tox B Gene COVID-19 (JESSY) COVID-19 Clin Com Influenza Type A (PCR) Influenza Type B (PCR) RSV RNA Qual (PCR) SARS-CoV-2 RNA (RT-PCR) Blood Type Antibody Screen Crossmatch 12/02/21 12/02/21 12/02/21 11:30 16:35 21:14 WBC RBC Hgb Hct MCV MCH MCHC RDW Plt Count MPV Immature Gran % (Auto) Neut % (Auto) Lymph % (Auto) [place] % (Auto) Eos % (Auto) Baso % (Auto) Lymph # (Auto) [place] # (Auto) Eos # (Auto) Baso # (Auto) Abs Immat Gran (auto) Absolute Neuts (auto) Absolute Nucleated RBC Nucleated RBC % (auto) Neutrophils % (Manual) Band Neutrophils % Lymphocytes % (Manual) Monocytes % (Manual) Abs Neuts (Manual) Lymphocytes # (Manual) Monocytes # (Manual) Platelet Estimate Plt Morphology Comment RBC Morphology Acanthocytes (Spur) Smear Tech's Comments Smear Path Review PT INR APTT O2 Saturation ABG pH at Pt Temp ABG pH (Temp Correct) ABG pCO2 at Pt Temp ABG pCO2 (Temp Corrct ABG pO2 at Pt Temp ABG pO2 (Temp Correct ABG HCO3 ABG Base Excess (Actual) VBG pH VBG pCO2 VBG pO2 VBG HCO3 VBG O2 Saturation VBG Base Excess Sodium Potassium Chloride Carbon Dioxide Anion Gap BUN Creatinine Estim Creat Clear Calc Estimated GFR POC Glucose 150 H 235 H 179 H Random Glucose Fasting Glucose Osmolality Lactic Acid Calcium Phosphorus Magnesium Total Bilirubin Direct Bilirubin AST ALT Alkaline Phosphatase Ammonia Troponin I High Sens B-Natriuretic Peptide Total Protein Albumin Procalcitonin TSH Random Cortisol Urine Color Urine Appearance Urine pH Ur Specific [place] Urine Protein Urine Glucose (UA) Urine Ketones Urine Blood Urine Nitrite Ur Leukocyte Esterase Urine RBC Urine WBC Ur Squamous Epith Cells Urine Bacteria Urine Mucus Urine Osmolality Ur Random Sodium Ur Random Potassium Ur Random Chloride Stool Occult Blood Stool Leukocytes, Qual Random Vancomycin Digoxin C. difficile Tox B Gene COVID-19 (JESSY) COVID-19 Clin Com Influenza Type A (PCR) Influenza Type B (PCR) RSV RNA Qual (PCR) SARS-CoV-2 RNA (RT-PCR) Blood Type Antibody Screen Crossmatch 12/03/21 12/03/21 12/03/21 05:30 05:30 05:33 WBC 20.8 H RBC 4.75 Hgb 8.8 L Hct 31.7 L MCV 66.7 L MCH 18.5 L MCHC 27.8 L RDW 21.1 H Plt Count 299 MPV 9.3 L Immature Gran % (Auto) 0.8 H Neut % (Auto) 85.8 H Lymph % (Auto) 3.1 L [place] % (Auto) 10.1 Eos % (Auto) 0.1 Baso % (Auto) 0.1 Lymph # (Auto) 0.6 L [place] # (Auto) 2.1 H Eos # (Auto) 0.0 Baso # (Auto) 0.0 Abs Immat Gran (auto) 0.17 H Absolute Neuts (auto) 17.9 H Absolute Nucleated RBC 0.020 H Nucleated RBC % (auto) 0.1 Neutrophils % (Manual) Band Neutrophils % Lymphocytes % (Manual) Monocytes % (Manual) Abs Neuts (Manual) Lymphocytes # (Manual) Monocytes # (Manual) Platelet Estimate Plt Morphology Comment RBC Morphology Acanthocytes (Spur) Smear Tech's Comments VERIFIED Smear Path Review PT INR APTT O2 Saturation ABG pH at Pt Temp ABG pH (Temp Correct) ABG pCO2 at Pt Temp ABG pCO2 (Temp Corrct ABG pO2 at Pt Temp ABG pO2 (Temp Correct ABG HCO3 ABG Base Excess (Actual) VBG pH 7.47 H VBG pCO2 62 VBG pO2 53 VBG HCO3 45 H VBG O2 Saturation 83.0 VBG Base Excess 18.9 Sodium 150 H Potassium 4.2 Chloride 106 Carbon Dioxide 38 H Anion Gap 10 L BUN 21 H Creatinine 0.71 Estim Creat Clear Calc 108.5 Estimated GFR > 60 POC Glucose Random Glucose 151 H Fasting Glucose Osmolality Lactic Acid Calcium 9.0 Phosphorus 2.3 L Magnesium 2.4 Total Bilirubin Direct Bilirubin AST ALT Alkaline Phosphatase Ammonia Troponin I High Sens B-Natriuretic Peptide Total Protein Albumin 3.2 L Procalcitonin TSH Random Cortisol Urine Color Urine Appearance Urine pH Ur Specific [place] Urine Protein Urine Glucose (UA) Urine Ketones Urine Blood Urine Nitrite Ur Leukocyte Esterase Urine RBC Urine WBC Ur Squamous Epith Cells Urine Bacteria Urine Mucus Urine Osmolality Ur Random Sodium Ur Random Potassium Ur Random Chloride Stool Occult Blood Stool Leukocytes, Qual Random Vancomycin Digoxin C. difficile Tox B Gene COVID-19 (JESSY) COVID-19 Clin Com Influenza Type A (PCR) Influenza Type B (PCR) RSV RNA Qual (PCR) SARS-CoV-2 RNA (RT-PCR) Blood Type Antibody Screen Crossmatch 12/03/21 12/03/21 12/03/21 07:05 11:42 15:25 WBC RBC Hgb Hct MCV MCH MCHC RDW Plt Count MPV Immature Gran % (Auto) Neut % (Auto) Lymph % (Auto) [place] % (Auto) Eos % (Auto) Baso % (Auto) Lymph # (Auto) [place] # (Auto) Eos # (Auto) Baso # (Auto) Abs Immat Gran (auto) Absolute Neuts (auto) Absolute Nucleated RBC Nucleated RBC % (auto) Neutrophils % (Manual) Band Neutrophils % Lymphocytes % (Manual) Monocytes % (Manual) Abs Neuts (Manual) Lymphocytes # (Manual) Monocytes # (Manual) Platelet Estimate Plt Morphology Comment RBC Morphology Acanthocytes (Spur) Smear Tech's Comments Smear Path Review PT INR APTT O2 Saturation ABG pH at Pt Temp ABG pH (Temp Correct) ABG pCO2 at Pt Temp ABG pCO2 (Temp Corrct ABG pO2 at Pt Temp ABG pO2 (Temp Correct ABG HCO3 ABG Base Excess (Actual) VBG pH VBG pCO2 VBG pO2 VBG HCO3 VBG O2 Saturation VBG Base Excess Sodium 151 H Potassium 3.9 Chloride 106 Carbon Dioxide 40 H* Anion Gap 9 L BUN Creatinine Estim Creat Clear Calc Estimated GFR POC Glucose 141 H 198 H Random Glucose Fasting Glucose Osmolality Lactic Acid Calcium Phosphorus Magnesium Total Bilirubin Direct Bilirubin AST ALT Alkaline Phosphatase Ammonia Troponin I High Sens B-Natriuretic Peptide Total Protein Albumin Procalcitonin TSH Random Cortisol Urine Color Urine Appearance Urine pH Ur Specific [place] Urine Protein Urine Glucose (UA) Urine Ketones Urine Blood Urine Nitrite Ur Leukocyte Esterase Urine RBC Urine WBC Ur Squamous Epith Cells Urine Bacteria Urine Mucus Urine Osmolality Ur Random Sodium Ur Random Potassium Ur Random Chloride Stool Occult Blood Stool Leukocytes, Qual Random Vancomycin Digoxin C. difficile Tox B Gene COVID-19 (JESSY) COVID-19 Clin Com Influenza Type A (PCR) Influenza Type B (PCR) RSV RNA Qual (PCR) SARS-CoV-2 RNA (RT-PCR) Blood Type Antibody Screen Crossmatch 12/03/21 12/03/21 12/03/21 16:48 20:18 21:30 WBC RBC Hgb Hct MCV MCH MCHC RDW Plt Count MPV Immature Gran % (Auto) Neut % (Auto) Lymph % (Auto) [place] % (Auto) Eos % (Auto) Baso % (Auto) Lymph # (Auto) [place] # (Auto) Eos # (Auto) Baso # (Auto) Abs Immat Gran (auto) Absolute Neuts (auto) Absolute Nucleated RBC Nucleated RBC % (auto) Neutrophils % (Manual) Band Neutrophils % Lymphocytes % (Manual) Monocytes % (Manual) Abs Neuts (Manual) Lymphocytes # (Manual) Monocytes # (Manual) Platelet Estimate Plt Morphology Comment RBC Morphology Acanthocytes (Spur) Smear Tech's Comments Smear Path Review PT INR APTT O2 Saturation ABG pH at Pt Temp ABG pH (Temp Correct) ABG pCO2 at Pt Temp ABG pCO2 (Temp Corrct ABG pO2 at Pt Temp ABG pO2 (Temp Correct ABG HCO3 ABG Base Excess (Actual) VBG pH VBG pCO2 VBG pO2 VBG HCO3 VBG O2 Saturation VBG Base Excess Sodium Potassium Chloride Carbon Dioxide Anion Gap BUN Creatinine Estim Creat Clear Calc Estimated GFR POC Glucose 197 H 213 H Random Glucose Fasting Glucose Osmolality Lactic Acid Calcium Phosphorus Magnesium Total Bilirubin Direct Bilirubin AST ALT Alkaline Phosphatase Ammonia Troponin I High Sens B-Natriuretic Peptide Total Protein Albumin Procalcitonin TSH Random Cortisol Urine Color Urine Appearance Urine pH Ur Specific [place] Urine Protein Urine Glucose (UA) Urine Ketones Urine Blood Urine Nitrite Ur Leukocyte Esterase Urine RBC Urine WBC Ur Squamous Epith Cells Urine Bacteria Urine Mucus Urine Osmolality Ur Random Sodium Ur Random Potassium Ur Random Chloride Stool Occult Blood Stool Leukocytes, Qual Random Vancomycin Digoxin C. difficile Tox B Gene COVID-19 (JESSY) Negative COVID-19 Clin Com See Note Influenza Type A (PCR) Influenza Type B (PCR) RSV RNA Qual (PCR) SARS-CoV-2 RNA (RT-PCR) Blood Type Antibody Screen Crossmatch 12/04/21 12/04/21 12/04/21 07:58 11:44 12:44 WBC RBC Hgb Hct MCV MCH MCHC RDW Plt Count MPV Immature Gran % (Auto) Neut % (Auto) Lymph % (Auto) [place] % (Auto) Eos % (Auto) Baso % (Auto) Lymph # (Auto) [place] # (Auto) Eos # (Auto) Baso # (Auto) Abs Immat Gran (auto) Absolute Neuts (auto) Absolute Nucleated RBC Nucleated RBC % (auto) Neutrophils % (Manual) Band Neutrophils % Lymphocytes % (Manual) Monocytes % (Manual) Abs Neuts (Manual) Lymphocytes # (Manual) Monocytes # (Manual) Platelet Estimate Plt Morphology Comment RBC Morphology Acanthocytes (Spur) Smear Tech's Comments Smear Path Review PT INR APTT O2 Saturation ABG pH at Pt Temp ABG pH (Temp Correct) ABG pCO2 at Pt Temp ABG pCO2 (Temp Corrct ABG pO2 at Pt Temp ABG pO2 (Temp Correct ABG HCO3 ABG Base Excess (Actual) VBG pH VBG pCO2 VBG pO2 VBG HCO3 VBG O2 Saturation VBG Base Excess Sodium 153 H Potassium 3.6 Chloride 107 Carbon Dioxide 40 H* Anion Gap 10 L BUN 19 H Creatinine 0.80 Estim Creat Clear Calc 96.2 Estimated GFR > 60 POC Glucose 168 H 168 H Random Glucose 175 H Fasting Glucose Osmolality Lactic Acid Calcium 8.6 Phosphorus Magnesium Total Bilirubin Direct Bilirubin AST ALT Alkaline Phosphatase Ammonia Troponin I High Sens B-Natriuretic Peptide Total Protein Albumin Procalcitonin TSH Random Cortisol Urine Color Urine Appearance Urine pH Ur Specific [place] Urine Protein Urine Glucose (UA) Urine Ketones Urine Blood Urine Nitrite Ur Leukocyte Esterase Urine RBC Urine WBC Ur Squamous Epith Cells Urine Bacteria Urine Mucus Urine Osmolality Ur Random Sodium Ur Random Potassium Ur Random Chloride Stool Occult Blood Stool Leukocytes, Qual Random Vancomycin Digoxin C. difficile Tox B Gene COVID-19 (JESSY) COVID-19 Clin Com Influenza Type A (PCR) Influenza Type B (PCR) RSV RNA Qual (PCR) SARS-CoV-2 RNA (RT-PCR) Blood Type Antibody Screen Crossmatch 12/04/21 12/04/21 12/04/21 12:44 17:03 20:10 WBC 22.0 H RBC 4.83 Hgb 9.2 L Hct 33.7 L MCV 69.8 L MCH 19.0 L MCHC 27.3 L RDW 22.2 H Plt Count 314 MPV 9.3 L Immature Gran % (Auto) Neut % (Auto) Lymph % (Auto) [place] % (Auto) Eos % (Auto) Baso % (Auto) Lymph # (Auto) [place] # (Auto) Eos # (Auto) Baso # (Auto) Abs Immat Gran (auto) Absolute Neuts (auto) Absolute Nucleated RBC 0.020 H Nucleated RBC % (auto) 0.1 Neutrophils % (Manual) Band Neutrophils % Lymphocytes % (Manual) Monocytes % (Manual) Abs Neuts (Manual) Lymphocytes # (Manual) Monocytes # (Manual) Platelet Estimate Plt Morphology Comment RBC Morphology Acanthocytes (Spur) Smear Tech's Comments Smear Path Review PT INR APTT O2 Saturation ABG pH at Pt Temp ABG pH (Temp Correct) ABG pCO2 at Pt Temp ABG pCO2 (Temp Corrct ABG pO2 at Pt Temp ABG pO2 (Temp Correct ABG HCO3 ABG Base Excess (Actual) VBG pH VBG pCO2 VBG pO2 VBG HCO3 VBG O2 Saturation VBG Base Excess Sodium Potassium Chloride Carbon Dioxide Anion Gap BUN Creatinine Estim Creat Clear Calc Estimated GFR POC Glucose 168 H 138 H Random Glucose Fasting Glucose Osmolality Lactic Acid Calcium Phosphorus Magnesium Total Bilirubin Direct Bilirubin AST ALT Alkaline Phosphatase Ammonia Troponin I High Sens B-Natriuretic Peptide Total Protein Albumin Procalcitonin TSH Random Cortisol Urine Color Urine Appearance Urine pH Ur Specific [place] Urine Protein Urine Glucose (UA) Urine Ketones Urine Blood Urine Nitrite Ur Leukocyte Esterase Urine RBC Urine WBC Ur Squamous Epith Cells Urine Bacteria Urine Mucus Urine Osmolality Ur Random Sodium Ur Random Potassium Ur Random Chloride Stool Occult Blood Stool Leukocytes, Qual Random Vancomycin Digoxin C. difficile Tox B Gene COVID-19 (JESSY) COVID-19 Clin Com Influenza Type A (PCR) Influenza Type B (PCR) RSV RNA Qual (PCR) SARS-CoV-2 RNA (RT-PCR) Blood Type Antibody Screen Crossmatch 12/04/21 12/05/21 12/05/21 21:30 07:27 07:27 WBC 18.8 H RBC 4.78 Hgb 8.9 L Hct 33.8 L MCV 70.7 L MCH 18.6 L MCHC 26.3 L RDW 22.1 H Plt Count 290 MPV 10.0 Immature Gran % (Auto) Neut % (Auto) Lymph % (Auto) [place] % (Auto) Eos % (Auto) Baso % (Auto) Lymph # (Auto) [place] # (Auto) Eos # (Auto) Baso # (Auto) Abs Immat Gran (auto) Absolute Neuts (auto) Absolute Nucleated RBC 0.000 Nucleated RBC % (auto) 0.0 Neutrophils % (Manual) Band Neutrophils % Lymphocytes % (Manual) Monocytes % (Manual) Abs Neuts (Manual) Lymphocytes # (Manual) Monocytes # (Manual) Platelet Estimate Plt Morphology Comment RBC Morphology Acanthocytes (Spur) Smear Tech's Comments Smear Path Review PT INR APTT O2 Saturation ABG pH at Pt Temp ABG pH (Temp Correct) ABG pCO2 at Pt Temp ABG pCO2 (Temp Corrct ABG pO2 at Pt Temp ABG pO2 (Temp Correct ABG HCO3 ABG Base Excess (Actual) VBG pH VBG pCO2 VBG pO2 VBG HCO3 VBG O2 Saturation VBG Base Excess Sodium 153 H 153 H Potassium 3.8 3.7 Chloride 109 H 109 H Carbon Dioxide 38 H 38 H Anion Gap 10 L 10 L BUN 24 H Creatinine 0.87 Estim Creat Clear Calc 88.5 Estimated GFR > 60 POC Glucose Random Glucose 131 H Fasting Glucose Osmolality Lactic Acid Calcium 8.4 Phosphorus Magnesium Total Bilirubin Direct Bilirubin AST ALT Alkaline Phosphatase Ammonia Troponin I High Sens B-Natriuretic Peptide Total Protein Albumin Procalcitonin TSH Random Cortisol Urine Color Urine Appearance Urine pH Ur Specific [place] Urine Protein Urine Glucose (UA) Urine Ketones Urine Blood Urine Nitrite Ur Leukocyte Esterase Urine RBC Urine WBC Ur Squamous Epith Cells Urine Bacteria Urine Mucus Urine Osmolality Ur Random Sodium Ur Random Potassium Ur Random Chloride Stool Occult Blood Stool Leukocytes, Qual Random Vancomycin Digoxin C. difficile Tox B Gene COVID-19 (JESSY) COVID-19 Clin Com Influenza Type A (PCR) Influenza Type B (PCR) RSV RNA Qual (PCR) SARS-CoV-2 RNA (RT-PCR) Blood Type Antibody Screen Crossmatch 12/05/21 12/05/21 12/05/21 07:30 10:39 16:22 WBC RBC Hgb Hct MCV MCH MCHC RDW Plt Count MPV Immature Gran % (Auto) Neut % (Auto) Lymph % (Auto) [place] % (Auto) Eos % (Auto) Baso % (Auto) Lymph # (Auto) [place] # (Auto) Eos # (Auto) Baso # (Auto) Abs Immat Gran (auto) Absolute Neuts (auto) Absolute Nucleated RBC Nucleated RBC % (auto) Neutrophils % (Manual) Band Neutrophils % Lymphocytes % (Manual) Monocytes % (Manual) Abs Neuts (Manual) Lymphocytes # (Manual) Monocytes # (Manual) Platelet Estimate Plt Morphology Comment RBC Morphology Acanthocytes (Spur) Smear Tech's Comments Smear Path Review PT INR APTT O2 Saturation ABG pH at Pt Temp ABG pH (Temp Correct) ABG pCO2 at Pt Temp ABG pCO2 (Temp Corrct ABG pO2 at Pt Temp ABG pO2 (Temp Correct ABG HCO3 ABG Base Excess (Actual) VBG pH VBG pCO2 VBG pO2 VBG HCO3 VBG O2 Saturation VBG Base Excess Sodium Potassium Chloride Carbon Dioxide Anion Gap BUN Creatinine Estim Creat Clear Calc Estimated GFR POC Glucose 138 H 131 H 208 H Random Glucose Fasting Glucose Osmolality Lactic Acid Calcium Phosphorus Magnesium Total Bilirubin Direct Bilirubin AST ALT Alkaline Phosphatase Ammonia Troponin I High Sens B-Natriuretic Peptide Total Protein Albumin Procalcitonin TSH Random Cortisol Urine Color Urine Appearance Urine pH Ur Specific [place] Urine Protein Urine Glucose (UA) Urine Ketones Urine Blood Urine Nitrite Ur Leukocyte Esterase Urine RBC Urine WBC Ur Squamous Epith Cells Urine Bacteria Urine Mucus Urine Osmolality Ur Random Sodium Ur Random Potassium Ur Random Chloride Stool Occult Blood Stool Leukocytes, Qual Random Vancomycin Digoxin C. difficile Tox B Gene COVID-19 (JESSY) COVID-19 Clin Com Influenza Type A (PCR) Influenza Type B (PCR) RSV RNA Qual (PCR) SARS-CoV-2 RNA (RT-PCR) Blood Type Antibody Screen Crossmatch 12/05/21 12/06/21 12/06/21 20:10 05:52 05:52 WBC 17.1 H RBC 4.58 Hgb 8.8 L Hct 33.2 L MCV 72.5 L MCH 19.2 L MCHC 26.5 L RDW 22.5 H Plt Count 249 MPV 9.8 Immature Gran % (Auto) Neut % (Auto) Lymph % (Auto) [place] % (Auto) Eos % (Auto) Baso % (Auto) Lymph # (Auto) [place] # (Auto) Eos # (Auto) Baso # (Auto) Abs Immat Gran (auto) Absolute Neuts (auto) Absolute Nucleated RBC 0.000 Nucleated RBC % (auto) 0.0 Neutrophils % (Manual) Band Neutrophils % Lymphocytes % (Manual) Monocytes % (Manual) Abs Neuts (Manual) Lymphocytes # (Manual) Monocytes # (Manual) Platelet Estimate Plt Morphology Comment RBC Morphology Acanthocytes (Spur) Smear Tech's Comments Smear Path Review PT INR APTT O2 Saturation ABG pH at Pt Temp ABG pH (Temp Correct) ABG pCO2 at Pt Temp ABG pCO2 (Temp Corrct ABG pO2 at Pt Temp ABG pO2 (Temp Correct ABG HCO3 ABG Base Excess (Actual) VBG pH VBG pCO2 VBG pO2 VBG HCO3 VBG O2 Saturation VBG Base Excess Sodium 152 H Potassium 3.9 Chloride 108 Carbon Dioxide 38 H Anion Gap 10 L BUN 33 H Creatinine 1.18 Estim Creat Clear Calc 65.2 Estimated GFR 46 POC Glucose 148 H Random Glucose 155 H Fasting Glucose Osmolality Lactic Acid Calcium 8.3 L Phosphorus Magnesium Total Bilirubin Direct Bilirubin AST ALT Alkaline Phosphatase Ammonia Troponin I High Sens B-Natriuretic Peptide Total Protein Albumin Procalcitonin TSH Random Cortisol Urine Color Urine Appearance Urine pH Ur Specific [place] Urine Protein Urine Glucose (UA) Urine Ketones Urine Blood Urine Nitrite Ur Leukocyte Esterase Urine RBC Urine WBC Ur Squamous Epith Cells Urine Bacteria Urine Mucus Urine Osmolality Ur Random Sodium Ur Random Potassium Ur Random Chloride Stool Occult Blood Stool Leukocytes, Qual Random Vancomycin Digoxin C. difficile Tox B Gene COVID-19 (JESSY) COVID-19 Clin Com Influenza Type A (PCR) Influenza Type B (PCR) RSV RNA Qual (PCR) SARS-CoV-2 RNA (RT-PCR) Blood Type Antibody Screen Crossmatch 12/06/21 12/06/21 12/06/21 07:13 10:55 11:05 WBC RBC Hgb Hct MCV MCH MCHC RDW Plt Count MPV Immature Gran % (Auto) Neut % (Auto) Lymph % (Auto) [place] % (Auto) Eos % (Auto) Baso % (Auto) Lymph # (Auto) [place] # (Auto) Eos # (Auto) Baso # (Auto) Abs Immat Gran (auto) Absolute Neuts (auto) Absolute Nucleated RBC Nucleated RBC % (auto) Neutrophils % (Manual) Band Neutrophils % Lymphocytes % (Manual) Monocytes % (Manual) Abs Neuts (Manual) Lymphocytes # (Manual) Monocytes # (Manual) Platelet Estimate Plt Morphology Comment RBC Morphology Acanthocytes (Spur) Smear Tech's Comments Smear Path Review PT INR APTT O2 Saturation 95.0 ABG pH at Pt Temp 7.34 L ABG pH (Temp Correct) 7.34 L ABG pCO2 at Pt Temp 85 H* ABG pCO2 (Temp Corrct 84 H* ABG pO2 at Pt Temp 81 L ABG pO2 (Temp Correct 80 L ABG HCO3 46 H ABG Base Excess (Actual) 17.2 VBG pH VBG pCO2 VBG pO2 VBG HCO3 VBG O2 Saturation VBG Base Excess Sodium Potassium Chloride Carbon Dioxide Anion Gap BUN Creatinine Estim Creat Clear Calc Estimated GFR POC Glucose 157 H 180 H Random Glucose Fasting Glucose Osmolality Lactic Acid Calcium Phosphorus Magnesium Total Bilirubin Direct Bilirubin AST ALT Alkaline Phosphatase Ammonia Troponin I High Sens B-Natriuretic Peptide Total Protein Albumin Procalcitonin TSH Random Cortisol Urine Color Urine Appearance Urine pH Ur Specific [place] Urine Protein Urine Glucose (UA) Urine Ketones Urine Blood Urine Nitrite Ur Leukocyte Esterase Urine RBC Urine WBC Ur Squamous Epith Cells Urine Bacteria Urine Mucus Urine Osmolality Ur Random Sodium Ur Random Potassium Ur Random Chloride Stool Occult Blood Stool Leukocytes, Qual Random Vancomycin Digoxin C. difficile Tox B Gene COVID-19 (JESSY) COVID-19 Clin Com Influenza Type A (PCR) Influenza Type B (PCR) RSV RNA Qual (PCR) SARS-CoV-2 RNA (RT-PCR) Blood Type Antibody Screen Crossmatch 12/06/21 12/06/21 12/06/21 16:28 18:10 18:16 WBC RBC Hgb Hct MCV MCH MCHC RDW Plt Count MPV Immature Gran % (Auto) Neut % (Auto) Lymph % (Auto) [place] % (Auto) Eos % (Auto) Baso % (Auto) Lymph # (Auto) [place] # (Auto) Eos # (Auto) Baso # (Auto) Abs Immat Gran (auto) Absolute Neuts (auto) Absolute Nucleated RBC Nucleated RBC % (auto) Neutrophils % (Manual) Band Neutrophils % Lymphocytes % (Manual) Monocytes % (Manual) Abs Neuts (Manual) Lymphocytes # (Manual) Monocytes # (Manual) Platelet Estimate Plt Morphology Comment RBC Morphology Acanthocytes (Spur) Smear Tech's Comments Smear Path Review PT INR APTT O2 Saturation ABG pH at Pt Temp ABG pH (Temp Correct) ABG pCO2 at Pt Temp ABG pCO2 (Temp Corrct ABG pO2 at Pt Temp ABG pO2 (Temp Correct ABG HCO3 ABG Base Excess (Actual) VBG pH 7.35 VBG pCO2 81 VBG pO2 39 VBG HCO3 46 H VBG O2 Saturation 62.0 VBG Base Excess 17.3 Sodium Potassium Chloride Carbon Dioxide Anion Gap BUN Creatinine Estim Creat Clear Calc Estimated GFR POC Glucose 92 Random Glucose Fasting Glucose Osmolality Lactic Acid Calcium Phosphorus Magnesium Total Bilirubin Direct Bilirubin AST ALT Alkaline Phosphatase Ammonia Troponin I High Sens B-Natriuretic Peptide Total Protein Albumin Procalcitonin TSH Random Cortisol Urine Color YELLOW Urine Appearance HAZY Urine pH 6.0 Ur Specific [place] 1.015 Urine Protein TRACE Urine Glucose (UA) NEG Urine Ketones NEG Urine Blood 3+ H Urine Nitrite NEG Ur Leukocyte Esterase NEG Urine RBC 50-75 H Urine WBC 1-4 Ur Squamous Epith Cells TRACE Urine Bacteria TRACE Urine Mucus Urine Osmolality Ur Random Sodium Ur Random Potassium Ur Random Chloride Stool Occult Blood Stool Leukocytes, Qual Random Vancomycin Digoxin C. difficile Tox B Gene COVID-19 (JESSY) COVID-19 Clin Com Influenza Type A (PCR) Influenza Type B (PCR) RSV RNA Qual (PCR) SARS-CoV-2 RNA (RT-PCR) Blood Type Antibody Screen Crossmatch 12/06/21 12/06/21 12/06/21 18:17 21:19 22:01 WBC RBC Hgb Hct MCV MCH MCHC RDW Plt Count MPV Immature Gran % (Auto) Neut % (Auto) Lymph % (Auto) [place] % (Auto) Eos % (Auto) Baso % (Auto) Lymph # (Auto) [place] # (Auto) Eos # (Auto) Baso # (Auto) Abs Immat Gran (auto) Absolute Neuts (auto) Absolute Nucleated RBC Nucleated RBC % (auto) Neutrophils % (Manual) Band Neutrophils % Lymphocytes % (Manual) Monocytes % (Manual) Abs Neuts (Manual) Lymphocytes # (Manual) Monocytes # (Manual) Platelet Estimate Plt Morphology Comment RBC Morphology Acanthocytes (Spur) Smear Tech's Comments Smear Path Review PT INR APTT O2 Saturation ABG pH at Pt Temp ABG pH (Temp Correct) ABG pCO2 at Pt Temp ABG pCO2 (Temp Corrct ABG pO2 at Pt Temp ABG pO2 (Temp Correct ABG HCO3 ABG Base Excess (Actual) VBG pH 7.55 H VBG pCO2 43 VBG pO2 33 VBG HCO3 37 H VBG O2 Saturation 66.0 VBG Base Excess 14.2 Sodium Potassium Chloride Carbon Dioxide Anion Gap BUN Creatinine Estim Creat Clear Calc Estimated GFR POC Glucose 118 H Random Glucose Fasting Glucose Osmolality Lactic Acid 0.6 Calcium Phosphorus Magnesium Total Bilirubin Direct Bilirubin AST ALT Alkaline Phosphatase Ammonia Troponin I High Sens B-Natriuretic Peptide Total Protein Albumin Procalcitonin TSH Random Cortisol Urine Color Urine Appearance Urine pH Ur Specific [place] Urine Protein Urine Glucose (UA) Urine Ketones Urine Blood Urine Nitrite Ur Leukocyte Esterase Urine RBC Urine WBC Ur Squamous Epith Cells Urine Bacteria Urine Mucus Urine Osmolality Ur Random Sodium Ur Random Potassium Ur Random Chloride Stool Occult Blood Stool Leukocytes, Qual Random Vancomycin Digoxin C. difficile Tox B Gene COVID-19 (JESSY) COVID-19 Clin Com Influenza Type A (PCR) Influenza Type B (PCR) RSV RNA Qual (PCR) SARS-CoV-2 RNA (RT-PCR) Blood Type Antibody Screen Crossmatch 12/07/21 12/07/21 12/07/21 05:20 05:20 05:20 WBC 22.8 H RBC 4.29 Hgb 8.1 L Hct 30.0 L MCV 69.9 L MCH 18.9 L MCHC 27.0 L RDW 22.6 H Plt Count 233 MPV 10.3 Immature Gran % (Auto) 0.9 H Neut % (Auto) 88.2 H Lymph % (Auto) 5.3 L [place] % (Auto) 5.4 Eos % (Auto) 0.1 Baso % (Auto) 0.1 Lymph # (Auto) 1.2 [place] # (Auto) 1.2 Eos # (Auto) 0.0 Baso # (Auto) 0.0 Abs Immat Gran (auto) 0.21 H Absolute Neuts (auto) 20.1 H Absolute Nucleated RBC 0.030 H Nucleated RBC % (auto) 0.1 Neutrophils % (Manual) Band Neutrophils % Lymphocytes % (Manual) Monocytes % (Manual) Abs Neuts (Manual) Lymphocytes # (Manual) Monocytes # (Manual) Platelet Estimate Plt Morphology Comment RBC Morphology Acanthocytes (Spur) Smear Tech's Comments VERIFIED Smear Path Review PT INR APTT O2 Saturation ABG pH at Pt Temp ABG pH (Temp Correct) ABG pCO2 at Pt Temp ABG pCO2 (Temp Corrct ABG pO2 at Pt Temp ABG pO2 (Temp Correct ABG HCO3 ABG Base Excess (Actual) VBG pH 7.59 H VBG pCO2 33 VBG pO2 41 VBG HCO3 32 H VBG O2 Saturation 79.0 VBG Base Excess 10.8 Sodium 154 H Potassium 2.8 L D Chloride 109 H Carbon Dioxide 32 H Anion Gap 16 BUN 38 H Creatinine 1.31 Estim Creat Clear Calc 54.5 Estimated GFR 40 POC Glucose Random Glucose 257 H Fasting Glucose Osmolality Lactic Acid Calcium 7.8 L D Phosphorus 1.4 L Magnesium 2.4 Total Bilirubin 0.9 Direct Bilirubin AST 82 H ALT 23 Alkaline Phosphatase 54 D Ammonia Troponin I High Sens B-Natriuretic Peptide Total Protein 4.9 L D Albumin 2.5 L D Procalcitonin TSH Random Cortisol Urine Color Urine Appearance Urine pH Ur Specific [place] Urine Protein Urine Glucose (UA) Urine Ketones Urine Blood Urine Nitrite Ur Leukocyte Esterase Urine RBC Urine WBC Ur Squamous Epith Cells Urine Bacteria Urine Mucus Urine Osmolality Ur Random Sodium Ur Random Potassium Ur Random Chloride Stool Occult Blood Stool Leukocytes, Qual Random Vancomycin Digoxin C. difficile Tox B Gene COVID-19 (JESSY) COVID-19 Clin Com Influenza Type A (PCR) Influenza Type B (PCR) RSV RNA Qual (PCR) SARS-CoV-2 RNA (RT-PCR) Blood Type Antibody Screen Crossmatch 12/07/21 12/07/21 12/07/21 07:15 11:32 17:43 WBC RBC Hgb Hct MCV MCH MCHC RDW Plt Count MPV Immature Gran % (Auto) Neut % (Auto) Lymph % (Auto) [place] % (Auto) Eos % (Auto) Baso % (Auto) Lymph # (Auto) [place] # (Auto) Eos # (Auto) Baso # (Auto) Abs Immat Gran (auto) Absolute Neuts (auto) Absolute Nucleated RBC Nucleated RBC % (auto) Neutrophils % (Manual) Band Neutrophils % Lymphocytes % (Manual) Monocytes % (Manual) Abs Neuts (Manual) Lymphocytes # (Manual) Monocytes # (Manual) Platelet Estimate Plt Morphology Comment RBC Morphology Acanthocytes (Spur) Smear Tech's Comments Smear Path Review PT INR APTT O2 Saturation ABG pH at Pt Temp ABG pH (Temp Correct) ABG pCO2 at Pt Temp ABG pCO2 (Temp Corrct ABG pO2 at Pt Temp ABG pO2 (Temp Correct ABG HCO3 ABG Base Excess (Actual) VBG pH VBG pCO2 VBG pO2 VBG HCO3 VBG O2 Saturation VBG Base Excess Sodium Potassium Chloride Carbon Dioxide Anion Gap BUN Creatinine Estim Creat Clear Calc Estimated GFR POC Glucose 279 H 289 H 290 H Random Glucose Fasting Glucose Osmolality Lactic Acid Calcium Phosphorus Magnesium Total Bilirubin Direct Bilirubin AST ALT Alkaline Phosphatase Ammonia Troponin I High Sens B-Natriuretic Peptide Total Protein Albumin Procalcitonin TSH Random Cortisol Urine Color Urine Appearance Urine pH Ur Specific [place] Urine Protein Urine Glucose (UA) Urine Ketones Urine Blood Urine Nitrite Ur Leukocyte Esterase Urine RBC Urine WBC Ur Squamous Epith Cells Urine Bacteria Urine Mucus Urine Osmolality Ur Random Sodium Ur Random Potassium Ur Random Chloride Stool Occult Blood Stool Leukocytes, Qual Random Vancomycin Digoxin C. difficile Tox B Gene COVID-19 (JESSY) COVID-19 Clin Com Influenza Type A (PCR) Influenza Type B (PCR) RSV RNA Qual (PCR) SARS-CoV-2 RNA (RT-PCR) Blood Type Antibody Screen Crossmatch 12/07/21 12/07/21 12/08/21 18:46 21:19 01:23 WBC RBC Hgb Hct MCV MCH MCHC RDW Plt Count MPV Immature Gran % (Auto) Neut % (Auto) Lymph % (Auto) [place] % (Auto) Eos % (Auto) Baso % (Auto) Lymph # (Auto) [place] # (Auto) Eos # (Auto) Baso # (Auto) Abs Immat Gran (auto) Absolute Neuts (auto) Absolute Nucleated RBC Nucleated RBC % (auto) Neutrophils % (Manual) Band Neutrophils % Lymphocytes % (Manual) Monocytes % (Manual) Abs Neuts (Manual) Lymphocytes # (Manual) Monocytes # (Manual) Platelet Estimate Plt Morphology Comment RBC Morphology Acanthocytes (Spur) Smear Tech's Comments Smear Path Review PT INR APTT O2 Saturation ABG pH at Pt Temp ABG pH (Temp Correct) ABG pCO2 at Pt Temp ABG pCO2 (Temp Corrct ABG pO2 at Pt Temp ABG pO2 (Temp Correct ABG HCO3 ABG Base Excess (Actual) VBG pH VBG pCO2 VBG pO2 VBG HCO3 VBG O2 Saturation VBG Base Excess Sodium 152 H Potassium 2.5 L* Chloride 111 H Carbon Dioxide 29 Anion Gap 15 BUN 32 H Creatinine 1.19 Estim Creat Clear Calc 60.0 Estimated GFR 45 POC Glucose 282 H 213 H Random Glucose 296 H Fasting Glucose Osmolality Lactic Acid Calcium 7.7 L Phosphorus 1.5 L Magnesium Total Bilirubin Direct Bilirubin AST ALT Alkaline Phosphatase Ammonia Troponin I High Sens B-Natriuretic Peptide Total Protein Albumin Procalcitonin TSH Random Cortisol Urine Color Urine Appearance Urine pH Ur Specific [place] Urine Protein Urine Glucose (UA) Urine Ketones Urine Blood Urine Nitrite Ur Leukocyte Esterase Urine RBC Urine WBC Ur Squamous Epith Cells Urine Bacteria Urine Mucus Urine Osmolality Ur Random Sodium Ur Random Potassium Ur Random Chloride Stool Occult Blood Stool Leukocytes, Qual Random Vancomycin Digoxin C. difficile Tox B Gene COVID-19 (JESSY) COVID-19 Clin Com Influenza Type A (PCR) Influenza Type B (PCR) RSV RNA Qual (PCR) SARS-CoV-2 RNA (RT-PCR) Blood Type Antibody Screen Crossmatch 0112/08/21 12/08/21 05:00 05:25 05:25 WBC Cancelled RBC Cancelled Hgb Cancelled Hct Cancelled MCV Cancelled MCH Cancelled MCHC Cancelled RDW Cancelled Plt Count Cancelled MPV Cancelled Immature Gran % (Auto) Neut % (Auto) Lymph % (Auto) [place] % (Auto) Eos % (Auto) Baso % (Auto) Lymph # (Auto) [place] # (Auto) Eos # (Auto) Baso # (Auto) Abs Immat Gran (auto) Absolute Neuts (auto) Absolute Nucleated RBC Cancelled Nucleated RBC % (auto) Cancelled Neutrophils % (Manual) Band Neutrophils % Lymphocytes % (Manual) Monocytes % (Manual) Abs Neuts (Manual) Lymphocytes # (Manual) Monocytes # (Manual) Platelet Estimate Plt Morphology Comment RBC Morphology Acanthocytes (Spur) Smear Tech's Comments Smear Path Review PT INR APTT O2 Saturation ABG pH at Pt Temp ABG pH (Temp Correct) ABG pCO2 at Pt Temp ABG pCO2 (Temp Corrct ABG pO2 at Pt Temp ABG pO2 (Temp Correct ABG HCO3 ABG Base Excess (Actual) VBG pH VBG pCO2 VBG pO2 VBG HCO3 VBG O2 Saturation VBG Base Excess Sodium 149 H Potassium 3.0 L Chloride 111 H Carbon Dioxide 29 Anion Gap 12 BUN 31 H Creatinine 1.21 Estim Creat Clear Calc 71.3 Estimated GFR 44 POC Glucose Random Glucose 268 H Fasting Glucose Osmolality Lactic Acid Calcium 7.3 L Phosphorus 3.1 Magnesium Total Bilirubin 0.5 Direct Bilirubin AST 72 H ALT 23 Alkaline Phosphatase 49 Ammonia Troponin I High Sens B-Natriuretic Peptide 117 H Total Protein 5.0 L Albumin 2.8 L Procalcitonin TSH Random Cortisol Urine Color Urine Appearance Urine pH Ur Specific [place] Urine Protein Urine Glucose (UA) Urine Ketones Urine Blood Urine Nitrite Ur Leukocyte Esterase Urine RBC Urine WBC Ur Squamous Epith Cells Urine Bacteria Urine Mucus Urine Osmolality Ur Random Sodium Ur Random Potassium Ur Random Chloride Stool Occult Blood Stool Leukocytes, Qual Random Vancomycin Digoxin C. difficile Tox B Gene COVID-19 (JESSY) COVID-19 Clin Com Influenza Type A (PCR) Influenza Type B (PCR) RSV RNA Qual (PCR) SARS-CoV-2 RNA (RT-PCR) Blood Type Antibody Screen Crossmatch 01/26/22 01/26/22 01/26/22 05:27 06:37 07:32 WBC RBC Hgb Hct MCV MCH MCHC RDW Plt Count MPV Immature Gran % (Auto) Neut % (Auto) Lymph % (Auto) [place] % (Auto) Eos % (Auto) Baso % (Auto) Lymph # (Auto) [place] # (Auto) Eos # (Auto) Baso # (Auto) Abs Immat Gran (auto) Absolute Neuts (auto) Absolute Nucleated RBC Nucleated RBC % (auto) Neutrophils % (Manual) Band Neutrophils % Lymphocytes % (Manual) Monocytes % (Manual) Abs Neuts (Manual) Lymphocytes # (Manual) Monocytes # (Manual) Platelet Estimate Plt Morphology Comment RBC Morphology Acanthocytes (Spur) Smear Tech's Comments Smear Path Review PT INR APTT O2 Saturation ABG pH at Pt Temp ABG pH (Temp Correct) ABG pCO2 at Pt Temp ABG pCO2 (Temp Corrct ABG pO2 at Pt Temp ABG pO2 (Temp Correct ABG HCO3 ABG Base Excess (Actual) VBG pH 7.52 H VBG pCO2 38 VBG pO2 48 VBG HCO3 31 H VBG O2 Saturation 79.0 VBG Base Excess 8.3 Sodium Potassium Chloride Carbon Dioxide Anion Gap BUN Creatinine Estim Creat Clear Calc Estimated GFR POC Glucose 253 H 254 H Random Glucose Fasting Glucose Osmolality Lactic Acid Calcium Phosphorus Magnesium Total Bilirubin Direct Bilirubin AST ALT Alkaline Phosphatase Ammonia Troponin I High Sens B-Natriuretic Peptide Total Protein Albumin Procalcitonin TSH Random Cortisol Urine Color Urine Appearance Urine pH Ur Specific [place] Urine Protein Urine Glucose (UA) Urine Ketones Urine Blood Urine Nitrite Ur Leukocyte Esterase Urine RBC Urine WBC Ur Squamous Epith Cells Urine Bacteria Urine Mucus Urine Osmolality Ur Random Sodium Ur Random Potassium Ur Random Chloride Stool Occult Blood Stool Leukocytes, Qual Random Vancomycin Digoxin C. difficile Tox B Gene COVID-19 (JESSY) COVID-19 Clin Com Influenza Type A (PCR) Influenza Type B (PCR) RSV RNA Qual (PCR) SARS-CoV-2 RNA (RT-PCR) Blood Type Antibody Screen Crossmatch 12/08/21 12/08/21 12/08/21 08:07 11:53 11:59 WBC 19.2 H RBC 3.92 L Hgb 7.4 L Hct 26.8 L MCV 68.4 L MCH 18.9 L MCHC 27.6 L RDW 22.9 H Plt Count 186 MPV Not Reportable Immature Gran % (Auto) Neut % (Auto) Lymph % (Auto) [place] % (Auto) Eos % (Auto) Baso % (Auto) Lymph # (Auto) [place] # (Auto) Eos # (Auto) Baso # (Auto) Abs Immat Gran (auto) Absolute Neuts (auto) Absolute Nucleated RBC 0.020 H Nucleated RBC % (auto) 0.1 Neutrophils % (Manual) Band Neutrophils % Lymphocytes % (Manual) Monocytes % (Manual) Abs Neuts (Manual) Lymphocytes # (Manual) Monocytes # (Manual) Platelet Estimate Plt Morphology Comment RBC Morphology Acanthocytes (Spur) Smear Tech's Comments Smear Path Review PT INR APTT O2 Saturation ABG pH at Pt Temp ABG pH (Temp Correct) ABG pCO2 at Pt Temp ABG pCO2 (Temp Corrct ABG pO2 at Pt Temp ABG pO2 (Temp Correct ABG HCO3 ABG Base Excess (Actual) VBG pH 7.49 H VBG pCO2 39 VBG pO2 51 VBG HCO3 30 H VBG O2 Saturation 84.0 VBG Base Excess 6.5 Sodium Potassium Chloride Carbon Dioxide Anion Gap BUN Creatinine Estim Creat Clear Calc Estimated GFR POC Glucose 208 H Random Glucose Fasting Glucose Osmolality Lactic Acid Calcium Phosphorus Magnesium Total Bilirubin Direct Bilirubin AST ALT Alkaline Phosphatase Ammonia Troponin I High Sens B-Natriuretic Peptide Total Protein Albumin Procalcitonin TSH Random Cortisol Urine Color Urine Appearance Urine pH Ur Specific [place] Urine Protein Urine Glucose (UA) Urine Ketones Urine Blood Urine Nitrite Ur Leukocyte Esterase Urine RBC Urine WBC Ur Squamous Epith Cells Urine Bacteria Urine Mucus Urine Osmolality Ur Random Sodium Ur Random Potassium Ur Random Chloride Stool Occult Blood Stool Leukocytes, Qual Random Vancomycin Digoxin C. difficile Tox B Gene COVID-19 (JESSY) COVID-19 Clin Com Influenza Type A (PCR) Influenza Type B (PCR) RSV RNA Qual (PCR) SARS-CoV-2 RNA (RT-PCR) Blood Type Antibody Screen Crossmatch 12/08/21 12/08/21 12/08/21 15:41 16:31 16:31 WBC RBC Hgb Hct MCV MCH MCHC RDW Plt Count MPV Immature Gran % (Auto) Neut % (Auto) Lymph % (Auto) [place] % (Auto) Eos % (Auto) Baso % (Auto) Lymph # (Auto) [place] # (Auto) Eos # (Auto) Baso # (Auto) Abs Immat Gran (auto) Absolute Neuts (auto) Absolute Nucleated RBC Nucleated RBC % (auto) Neutrophils % (Manual) Band Neutrophils % Lymphocytes % (Manual) Monocytes % (Manual) Abs Neuts (Manual) Lymphocytes # (Manual) Monocytes # (Manual) Platelet Estimate Plt Morphology Comment RBC Morphology Acanthocytes (Spur) Smear Tech's Comments Smear Path Review PT INR APTT O2 Saturation ABG pH at Pt Temp ABG pH (Temp Correct) ABG pCO2 at Pt Temp ABG pCO2 (Temp Corrct ABG pO2 at Pt Temp ABG pO2 (Temp Correct ABG HCO3 ABG Base Excess (Actual) VBG pH VBG pCO2 VBG pO2 VBG HCO3 VBG O2 Saturation VBG Base Excess Sodium Potassium Chloride Carbon Dioxide Anion Gap BUN Creatinine Estim Creat Clear Calc Estimated GFR POC Glucose Random Glucose Fasting Glucose Osmolality Lactic Acid Calcium Phosphorus Magnesium Total Bilirubin Direct Bilirubin AST ALT Alkaline Phosphatase Ammonia Troponin I High Sens B-Natriuretic Peptide Total Protein Albumin Procalcitonin TSH Random Cortisol Urine Color Urine Appearance Urine pH Ur Specific [place] Urine Protein Urine Glucose (UA) Urine Ketones Urine Blood Urine Nitrite Ur Leukocyte Esterase Urine RBC Urine WBC Ur Squamous Epith Cells Urine Bacteria Urine Mucus Urine Osmolality Ur Random Sodium Ur Random Potassium Ur Random Chloride Stool Occult Blood POSITIVE Stool Leukocytes, Qual NEGATIVE Random Vancomycin Digoxin C. difficile Tox B Gene NEGATIVE COVID-19 (JESSY) COVID-19 Clin Com Influenza Type A (PCR) Influenza Type B (PCR) RSV RNA Qual (PCR) SARS-CoV-2 RNA (RT-PCR) Blood Type Antibody Screen Crossmatch 12/08/21 12/08/21 12/09/21 16:37 20:32 05:18 WBC RBC Hgb Hct MCV MCH MCHC RDW Plt Count MPV Immature Gran % (Auto) Neut % (Auto) Lymph % (Auto) [place] % (Auto) Eos % (Auto) Baso % (Auto) Lymph # (Auto) [place] # (Auto) Eos # (Auto) Baso # (Auto) Abs Immat Gran (auto) Absolute Neuts (auto) Absolute Nucleated RBC Nucleated RBC % (auto) Neutrophils % (Manual) Band Neutrophils % Lymphocytes % (Manual) Monocytes % (Manual) Abs Neuts (Manual) Lymphocytes # (Manual) Monocytes # (Manual) Platelet Estimate Plt Morphology Comment RBC Morphology Acanthocytes (Spur) Smear Tech's Comments Smear Path Review PT INR APTT O2 Saturation ABG pH at Pt Temp ABG pH (Temp Correct) ABG pCO2 at Pt Temp ABG pCO2 (Temp Corrct ABG pO2 at Pt Temp ABG pO2 (Temp Correct ABG HCO3 ABG Base Excess (Actual) VBG pH 7.45 H VBG pCO2 40 VBG pO2 42 VBG HCO3 28 H VBG O2 Saturation 69.0 VBG Base Excess 4.3 Sodium Potassium Chloride Carbon Dioxide Anion Gap BUN Creatinine Estim Creat Clear Calc Estimated GFR POC Glucose 174 H 220 H Random Glucose Fasting Glucose Osmolality Lactic Acid Calcium Phosphorus Magnesium Total Bilirubin Direct Bilirubin AST ALT Alkaline Phosphatase Ammonia Troponin I High Sens B-Natriuretic Peptide Total Protein Albumin Procalcitonin TSH Random Cortisol Urine Color Urine Appearance Urine pH Ur Specific [place] Urine Protein Urine Glucose (UA) Urine Ketones Urine Blood Urine Nitrite Ur Leukocyte Esterase Urine RBC Urine WBC Ur Squamous Epith Cells Urine Bacteria Urine Mucus Urine Osmolality Ur Random Sodium Ur Random Potassium Ur Random Chloride Stool Occult Blood Stool Leukocytes, Qual Random Vancomycin Digoxin C. difficile Tox B Gene COVID-19 (JESSY) COVID-19 Clin Com Influenza Type A (PCR) Influenza Type B (PCR) RSV RNA Qual (PCR) SARS-CoV-2 RNA (RT-PCR) Blood Type Antibody Screen Crossmatch 12/09/21 12/09/21 12/09/21 05:20 05:20 05:20 WBC 16.5 H RBC 3.73 L Hgb 7.0 L* Hct 25.2 L MCV 67.6 L MCH 18.8 L MCHC 27.8 L RDW 22.9 H Plt Count 164 MPV TNP Immature Gran % (Auto) Neut % (Auto) Lymph % (Auto) [place] % (Auto) Eos % (Auto) Baso % (Auto) Lymph # (Auto) [place] # (Auto) Eos # (Auto) Baso # (Auto) Abs Immat Gran (auto) Absolute Neuts (auto) Absolute Nucleated RBC 0.040 H Nucleated RBC % (auto) 0.2 Neutrophils % (Manual) Band Neutrophils % Lymphocytes % (Manual) Monocytes % (Manual) Abs Neuts (Manual) Lymphocytes # (Manual) Monocytes # (Manual) Platelet Estimate Plt Morphology Comment RBC Morphology Acanthocytes (Spur) Smear Tech's Comments Smear Path Review PT 22.5 H INR 2.0 H APTT O2 Saturation ABG pH at Pt Temp ABG pH (Temp Correct) ABG pCO2 at Pt Temp ABG pCO2 (Temp Corrct ABG pO2 at Pt Temp ABG pO2 (Temp Correct ABG HCO3 ABG Base Excess (Actual) VBG pH VBG pCO2 VBG pO2 VBG HCO3 VBG O2 Saturation VBG Base Excess Sodium 142 Potassium 3.1 L Chloride 106 Carbon Dioxide 29 Anion Gap 10 L BUN 29 H Creatinine 1.12 Estim Creat Clear Calc 76.2 Estimated GFR 48 POC Glucose Random Glucose 268 H Fasting Glucose Osmolality Lactic Acid Calcium 7.1 L Phosphorus 3.0 Magnesium 2.1 Total Bilirubin Direct Bilirubin AST ALT Alkaline Phosphatase Ammonia Troponin I High Sens B-Natriuretic Peptide Total Protein Albumin Procalcitonin TSH Random Cortisol Urine Color Urine Appearance Urine pH Ur Specific [place] Urine Protein Urine Glucose (UA) Urine Ketones Urine Blood Urine Nitrite Ur Leukocyte Esterase Urine RBC Urine WBC Ur Squamous Epith Cells Urine Bacteria Urine Mucus Urine Osmolality Ur Random Sodium Ur Random Potassium Ur Random Chloride Stool Occult Blood Stool Leukocytes, Qual Random Vancomycin Digoxin C. difficile Tox B Gene COVID-19 (JESSY) COVID-19 Clin Com Influenza Type A (PCR) Influenza Type B (PCR) RSV RNA Qual (PCR) SARS-CoV-2 RNA (RT-PCR) Blood Type Antibody Screen Crossmatch 12/09/21 12/09/21 12/09/21 05:20 06:46 07:14 WBC RBC Hgb Hct MCV MCH MCHC RDW Plt Count MPV Immature Gran % (Auto) Neut % (Auto) Lymph % (Auto) [place] % (Auto) Eos % (Auto) Baso % (Auto) Lymph # (Auto) [place] # (Auto) Eos # (Auto) Baso # (Auto) Abs Immat Gran (auto) Absolute Neuts (auto) Absolute Nucleated RBC Nucleated RBC % (auto) Neutrophils % (Manual) Band Neutrophils % Lymphocytes % (Manual) Monocytes % (Manual) Abs Neuts (Manual) Lymphocytes # (Manual) Monocytes # (Manual) Platelet Estimate Plt Morphology Comment RBC Morphology Acanthocytes (Spur) Smear Tech's Comments Smear Path Review PT INR APTT O2 Saturation ABG pH at Pt Temp ABG pH (Temp Correct) ABG pCO2 at Pt Temp ABG pCO2 (Temp Corrct ABG pO2 at Pt Temp ABG pO2 (Temp Correct ABG HCO3 ABG Base Excess (Actual) VBG pH VBG pCO2 VBG pO2 VBG HCO3 VBG O2 Saturation VBG Base Excess Sodium Potassium Chloride Carbon Dioxide Anion Gap BUN Creatinine Estim Creat Clear Calc Estimated GFR POC Glucose 255 H Random Glucose Fasting Glucose Osmolality Lactic Acid Calcium Phosphorus Magnesium Total Bilirubin Direct Bilirubin AST ALT Alkaline Phosphatase Ammonia Troponin I High Sens B-Natriuretic Peptide Total Protein Albumin Procalcitonin 0.15 TSH Random Cortisol Urine Color Urine Appearance Urine pH Ur Specific [place] Urine Protein Urine Glucose (UA) Urine Ketones Urine Blood Urine Nitrite Ur Leukocyte Esterase Urine RBC Urine WBC Ur Squamous Epith Cells Urine Bacteria Urine Mucus Urine Osmolality Ur Random Sodium Ur Random Potassium Ur Random Chloride Stool Occult Blood Stool Leukocytes, Qual Random Vancomycin Digoxin C. difficile Tox B Gene COVID-19 (JESSY) COVID-19 Clin Com Influenza Type A (PCR) Influenza Type B (PCR) RSV RNA Qual (PCR) SARS-CoV-2 RNA (RT-PCR) Blood Type A Positive Antibody Screen NEGATIVE Crossmatch See Detail 12/09/21 12/09/21 12/09/21 11:32 16:12 21:05 WBC RBC Hgb Hct MCV MCH MCHC RDW Plt Count MPV Immature Gran % (Auto) Neut % (Auto) Lymph % (Auto) [place] % (Auto) Eos % (Auto) Baso % (Auto) Lymph # (Auto) [place] # (Auto) Eos # (Auto) Baso # (Auto) Abs Immat Gran (auto) Absolute Neuts (auto) Absolute Nucleated RBC Nucleated RBC % (auto) Neutrophils % (Manual) Band Neutrophils % Lymphocytes % (Manual) Monocytes % (Manual) Abs Neuts (Manual) Lymphocytes # (Manual) Monocytes # (Manual) Platelet Estimate Plt Morphology Comment RBC Morphology Acanthocytes (Spur) Smear Tech's Comments Smear Path Review PT INR APTT O2 Saturation ABG pH at Pt Temp ABG pH (Temp Correct) ABG pCO2 at Pt Temp ABG pCO2 (Temp Corrct ABG pO2 at Pt Temp ABG pO2 (Temp Correct ABG HCO3 ABG Base Excess (Actual) VBG pH VBG pCO2 VBG pO2 VBG HCO3 VBG O2 Saturation VBG Base Excess Sodium Potassium Chloride Carbon Dioxide Anion Gap BUN Creatinine Estim Creat Clear Calc Estimated GFR POC Glucose 233 H 182 H 220 H Random Glucose Fasting Glucose Osmolality Lactic Acid Calcium Phosphorus Magnesium Total Bilirubin Direct Bilirubin AST ALT Alkaline Phosphatase Ammonia Troponin I High Sens B-Natriuretic Peptide Total Protein Albumin Procalcitonin TSH Random Cortisol Urine Color Urine Appearance Urine pH Ur Specific [place] Urine Protein Urine Glucose (UA) Urine Ketones Urine Blood Urine Nitrite Ur Leukocyte Esterase Urine RBC Urine WBC Ur Squamous Epith Cells Urine Bacteria Urine Mucus Urine Osmolality Ur Random Sodium Ur Random Potassium Ur Random Chloride Stool Occult Blood Stool Leukocytes, Qual Random Vancomycin Digoxin C. difficile Tox B Gene COVID-19 (JESSY) COVID-19 Clin Com Influenza Type A (PCR) Influenza Type B (PCR) RSV RNA Qual (PCR) SARS-CoV-2 RNA (RT-PCR) Blood Type Antibody Screen Crossmatch 12/10/21 12/10/21 12/10/21 05:09 05:30 05:30 WBC 16.6 H RBC 4.61 D Hgb 9.6 L D Hct 32.2 L D MCV 69.8 L MCH 20.8 L MCHC 29.8 L RDW 25.6 H Plt Count 173 MPV TNP Immature Gran % (Auto) Neut % (Auto) Lymph % (Auto) [place] % (Auto) Eos % (Auto) Baso % (Auto) Lymph # (Auto) [place] # (Auto) Eos # (Auto) Baso # (Auto) Abs Immat Gran (auto) Absolute Neuts (auto) Absolute Nucleated RBC 0.090 H Nucleated RBC % (auto) 0.5 H Neutrophils % (Manual) Band Neutrophils % Lymphocytes % (Manual) Monocytes % (Manual) Abs Neuts (Manual) Lymphocytes # (Manual) Monocytes # (Manual) Platelet Estimate Plt Morphology Comment RBC Morphology Acanthocytes (Spur) Smear Tech's Comments Smear Path Review PT INR APTT O2 Saturation ABG pH at Pt Temp ABG pH (Temp Correct) ABG pCO2 at Pt Temp ABG pCO2 (Temp Corrct ABG pO2 at Pt Temp ABG pO2 (Temp Correct ABG HCO3 ABG Base Excess (Actual) VBG pH VBG pCO2 VBG pO2 VBG HCO3 VBG O2 Saturation VBG Base Excess Sodium 143 Potassium 3.0 L Chloride 109 H Carbon Dioxide 25 Anion Gap 12 BUN 18 H Creatinine 0.89 Estim Creat Clear Calc 98.6 Estimated GFR > 60 POC Glucose 193 H Random Glucose 195 H Fasting Glucose Osmolality Lactic Acid Calcium 7.6 L D Phosphorus 2.3 L Magnesium 2.0 Total Bilirubin Direct Bilirubin AST ALT Alkaline Phosphatase Ammonia Troponin I High Sens B-Natriuretic Peptide Total Protein Albumin Procalcitonin TSH Random Cortisol Urine Color Urine Appearance Urine pH Ur Specific [place] Urine Protein Urine Glucose (UA) Urine Ketones Urine Blood Urine Nitrite Ur Leukocyte Esterase Urine RBC Urine WBC Ur Squamous Epith Cells Urine Bacteria Urine Mucus Urine Osmolality Ur Random Sodium Ur Random Potassium Ur Random Chloride Stool Occult Blood Stool Leukocytes, Qual Random Vancomycin Digoxin C. difficile Tox B Gene COVID-19 (JESSY) COVID-19 Clin Com Influenza Type A (PCR) Influenza Type B (PCR) RSV RNA Qual (PCR) SARS-CoV-2 RNA (RT-PCR) Blood Type Antibody Screen Crossmatch 12/10/21 12/10/21 12/10/21 05:37 07:23 11:22 WBC RBC Hgb Hct MCV MCH MCHC RDW Plt Count MPV Immature Gran % (Auto) Neut % (Auto) Lymph % (Auto) [place] % (Auto) Eos % (Auto) Baso % (Auto) Lymph # (Auto) [place] # (Auto) Eos # (Auto) Baso # (Auto) Abs Immat Gran (auto) Absolute Neuts (auto) Absolute Nucleated RBC Nucleated RBC % (auto) Neutrophils % (Manual) Band Neutrophils % Lymphocytes % (Manual) Monocytes % (Manual) Abs Neuts (Manual) Lymphocytes # (Manual) Monocytes # (Manual) Platelet Estimate Plt Morphology Comment RBC Morphology Acanthocytes (Spur) Smear Tech's Comments Smear Path Review PT INR APTT O2 Saturation ABG pH at Pt Temp ABG pH (Temp Correct) ABG pCO2 at Pt Temp ABG pCO2 (Temp Corrct ABG pO2 at Pt Temp ABG pO2 (Temp Correct ABG HCO3 ABG Base Excess (Actual) VBG pH 7.49 H VBG pCO2 34 VBG pO2 41 VBG HCO3 26 VBG O2 Saturation 70.0 VBG Base Excess 3.4 Sodium Potassium Chloride Carbon Dioxide Anion Gap BUN Creatinine Estim Creat Clear Calc Estimated GFR POC Glucose 194 H 173 H Random Glucose Fasting Glucose Osmolality Lactic Acid Calcium Phosphorus Magnesium Total Bilirubin Direct Bilirubin AST ALT Alkaline Phosphatase Ammonia Troponin I High Sens B-Natriuretic Peptide Total Protein Albumin Procalcitonin TSH Random Cortisol Urine Color Urine Appearance Urine pH Ur Specific [place] Urine Protein Urine Glucose (UA) Urine Ketones Urine Blood Urine Nitrite Ur Leukocyte Esterase Urine RBC Urine WBC Ur Squamous Epith Cells Urine Bacteria Urine Mucus Urine Osmolality Ur Random Sodium Ur Random Potassium Ur Random Chloride Stool Occult Blood Stool Leukocytes, Qual Random Vancomycin Digoxin C. difficile Tox B Gene COVID-19 (JESSY) COVID-19 Clin Com Influenza Type A (PCR) Influenza Type B (PCR) RSV RNA Qual (PCR) SARS-CoV-2 RNA (RT-PCR) Blood Type Antibody Screen Crossmatch 12/10/21 12/10/21 12/10/21 15:53 16:14 17:46 WBC RBC Hgb Hct MCV MCH MCHC RDW Plt Count MPV Immature Gran % (Auto) Neut % (Auto) Lymph % (Auto) [place] % (Auto) Eos % (Auto) Baso % (Auto) Lymph # (Auto) [place] # (Auto) Eos # (Auto) Baso # (Auto) Abs Immat Gran (auto) Absolute Neuts (auto) Absolute Nucleated RBC Nucleated RBC % (auto) Neutrophils % (Manual) Band Neutrophils % Lymphocytes % (Manual) Monocytes % (Manual) Abs Neuts (Manual) Lymphocytes # (Manual) Monocytes # (Manual) Platelet Estimate Plt Morphology Comment RBC Morphology Acanthocytes (Spur) Smear Tech's Comments Smear Path Review PT INR APTT O2 Saturation ABG pH at Pt Temp ABG pH (Temp Correct) ABG pCO2 at Pt Temp ABG pCO2 (Temp Corrct ABG pO2 at Pt Temp ABG pO2 (Temp Correct ABG HCO3 ABG Base Excess (Actual) VBG pH VBG pCO2 VBG pO2 VBG HCO3 VBG O2 Saturation VBG Base Excess Sodium 144 Potassium 3.8 D Chloride 111 H Carbon Dioxide 26 Anion Gap 11 L BUN 17 H Creatinine 0.92 Estim Creat Clear Calc 95.4 Estimated GFR > 60 POC Glucose 140 H Random Glucose 134 H Fasting Glucose Osmolality Lactic Acid Calcium 7.6 L Phosphorus 2.3 L Magnesium 2.5 Total Bilirubin Direct Bilirubin AST ALT Alkaline Phosphatase Ammonia Troponin I High Sens B-Natriuretic Peptide Total Protein Albumin Procalcitonin TSH Random Cortisol Urine Color Urine Appearance Urine pH Ur Specific [place] Urine Protein Urine Glucose (UA) Urine Ketones Urine Blood Urine Nitrite Ur Leukocyte Esterase Urine RBC Urine WBC Ur Squamous Epith Cells Urine Bacteria Urine Mucus Urine Osmolality Ur Random Sodium Ur Random Potassium Ur Random Chloride Stool Occult Blood Stool Leukocytes, Qual Random Vancomycin 10.1 L Digoxin C. difficile Tox B Gene COVID-19 (JESSY) COVID-19 Clin Com Influenza Type A (PCR) Influenza Type B (PCR) RSV RNA Qual (PCR) SARS-CoV-2 RNA (RT-PCR) Blood Type Antibody Screen Crossmatch 01/12/11/21 12/11/21 21:36 01:30 06:30 WBC 13.4 H RBC 4.14 L Hgb 8.6 L Hct 29.2 L MCV 70.5 L MCH 20.8 L MCHC 29.5 L RDW 26.3 H Plt Count 200 MPV Not Reportable Immature Gran % (Auto) 1.0 H Neut % (Auto) 82.8 H Lymph % (Auto) 9.7 L [place] % (Auto) 5.5 Eos % (Auto) 0.9 Baso % (Auto) 0.1 Lymph # (Auto) 1.3 [place] # (Auto) 0.7 Eos # (Auto) 0.1 Baso # (Auto) 0.0 Abs Immat Gran (auto) 0.13 H Absolute Neuts (auto) 11.1 H Absolute Nucleated RBC 0.020 H Nucleated RBC % (auto) 0.1 Neutrophils % (Manual) Band Neutrophils % Lymphocytes % (Manual) Monocytes % (Manual) Abs Neuts (Manual) Lymphocytes # (Manual) Monocytes # (Manual) Platelet Estimate Plt Morphology Comment RBC Morphology Acanthocytes (Spur) Smear Tech's Comments VERIFIED Smear Path Review PT INR APTT O2 Saturation ABG pH at Pt Temp ABG pH (Temp Correct) ABG pCO2 at Pt Temp ABG pCO2 (Temp Corrct ABG pO2 at Pt Temp ABG pO2 (Temp Correct ABG HCO3 ABG Base Excess (Actual) VBG pH VBG pCO2 VBG pO2 VBG HCO3 VBG O2 Saturation VBG Base Excess Sodium Potassium Chloride Carbon Dioxide Anion Gap BUN Creatinine Estim Creat Clear Calc Estimated GFR POC Glucose 117 H Random Glucose Fasting Glucose Osmolality Lactic Acid Calcium Phosphorus Magnesium Total Bilirubin Direct Bilirubin AST ALT Alkaline Phosphatase Ammonia Troponin I High Sens B-Natriuretic Peptide Total Protein Albumin Procalcitonin TSH Random Cortisol Urine Color YELLOW Urine Appearance CLEAR Urine pH 6.0 Ur Specific [place] 1.015 Urine Protein NEG Urine Glucose (UA) NEG Urine Ketones NEG Urine Blood 1+ H Urine Nitrite NEG Ur Leukocyte Esterase NEG Urine RBC 5-9 H Urine WBC 1-4 Ur Squamous Epith Cells 1+ Urine Bacteria 1+ Urine Mucus Urine Osmolality Ur Random Sodium Ur Random Potassium Ur Random Chloride Stool Occult Blood Stool Leukocytes, Qual Random Vancomycin Digoxin C. difficile Tox B Gene COVID-19 (JESSY) COVID-19 Clin Com Influenza Type A (PCR) Influenza Type B (PCR) RSV RNA Qual (PCR) SARS-CoV-2 RNA (RT-PCR) Blood Type Antibody Screen Crossmatch 12/11/21 12/11/21 12/11/21 06:30 06:30 07:10 WBC RBC Hgb Hct MCV MCH MCHC RDW Plt Count MPV Immature Gran % (Auto) Neut % (Auto) Lymph % (Auto) [place] % (Auto) Eos % (Auto) Baso % (Auto) Lymph # (Auto) [place] # (Auto) Eos # (Auto) Baso # (Auto) Abs Immat Gran (auto) Absolute Neuts (auto) Absolute Nucleated RBC Nucleated RBC % (auto) Neutrophils % (Manual) Band Neutrophils % Lymphocytes % (Manual) Monocytes % (Manual) Abs Neuts (Manual) Lymphocytes # (Manual) Monocytes # (Manual) Platelet Estimate Plt Morphology Comment RBC Morphology Acanthocytes (Spur) Smear Tech's Comments Smear Path Review PT INR APTT O2 Saturation ABG pH at Pt Temp ABG pH (Temp Correct) ABG pCO2 at Pt Temp ABG pCO2 (Temp Corrct ABG pO2 at Pt Temp ABG pO2 (Temp Correct ABG HCO3 ABG Base Excess (Actual) VBG pH 7.46 H VBG pCO2 36 VBG pO2 34 VBG HCO3 26 VBG O2 Saturation 55.0 VBG Base Excess 2.9 Sodium 143 Potassium 3.6 Chloride 110 H Carbon Dioxide 26 Anion Gap 11 L BUN 17 H Creatinine 0.88 Estim Creat Clear Calc 98.8 Estimated GFR > 60 POC Glucose 91 Random Glucose 95 Fasting Glucose Osmolality Lactic Acid Calcium 7.4 L Phosphorus Magnesium Total Bilirubin 0.8 Direct Bilirubin AST 29 D ALT 19 Alkaline Phosphatase 52 Ammonia Troponin I High Sens B-Natriuretic Peptide Total Protein 4.7 L Albumin 2.5 L Procalcitonin TSH Random Cortisol Urine Color Urine Appearance Urine pH Ur Specific [place] Urine Protein Urine Glucose (UA) Urine Ketones Urine Blood Urine Nitrite Ur Leukocyte Esterase Urine RBC Urine WBC Ur Squamous Epith Cells Urine Bacteria Urine Mucus Urine Osmolality Ur Random Sodium Ur Random Potassium Ur Random Chloride Stool Occult Blood Stool Leukocytes, Qual Random Vancomycin Digoxin C. difficile Tox B Gene COVID-19 (JESSY) COVID-19 Clin Com Influenza Type A (PCR) Influenza Type B (PCR) RSV RNA Qual (PCR) SARS-CoV-2 RNA (RT-PCR) Blood Type Antibody Screen Crossmatch 12/11/21 12/11/21 12/11/21 11:28 16:29 19:09 WBC RBC Hgb Hct MCV MCH MCHC RDW Plt Count MPV Immature Gran % (Auto) Neut % (Auto) Lymph % (Auto) [place] % (Auto) Eos % (Auto) Baso % (Auto) Lymph # (Auto) [place] # (Auto) Eos # (Auto) Baso # (Auto) Abs Immat Gran (auto) Absolute Neuts (auto) Absolute Nucleated RBC Nucleated RBC % (auto) Neutrophils % (Manual) Band Neutrophils % Lymphocytes % (Manual) Monocytes % (Manual) Abs Neuts (Manual) Lymphocytes # (Manual) Monocytes # (Manual) Platelet Estimate Plt Morphology Comment RBC Morphology Acanthocytes (Spur) Smear Tech's Comments Smear Path Review PT INR APTT O2 Saturation ABG pH at Pt Temp ABG pH (Temp Correct) ABG pCO2 at Pt Temp ABG pCO2 (Temp Corrct ABG pO2 at Pt Temp ABG pO2 (Temp Correct ABG HCO3 ABG Base Excess (Actual) VBG pH VBG pCO2 VBG pO2 VBG HCO3 VBG O2 Saturation VBG Base Excess Sodium Potassium Chloride Carbon Dioxide Anion Gap BUN Creatinine Estim Creat Clear Calc Estimated GFR POC Glucose 148 H 191 H Random Glucose Fasting Glucose Osmolality Lactic Acid Calcium Phosphorus Magnesium Total Bilirubin Direct Bilirubin AST ALT Alkaline Phosphatase Ammonia Troponin I High Sens B-Natriuretic Peptide Total Protein Albumin Procalcitonin TSH Random Cortisol Urine Color Urine Appearance Urine pH Ur Specific [place] Urine Protein Urine Glucose (UA) Urine Ketones Urine Blood Urine Nitrite Ur Leukocyte Esterase Urine RBC Urine WBC Ur Squamous Epith Cells Urine Bacteria Urine Mucus Urine Osmolality Ur Random Sodium Ur Random Potassium Ur Random Chloride Stool Occult Blood Stool Leukocytes, Qual Random Vancomycin Digoxin C. difficile Tox B Gene COVID-19 (JESSY) COVID-19 Clin Com Influenza Type A (PCR) NEGATIVE Influenza Type B (PCR) NEGATIVE RSV RNA Qual (PCR) NEGATIVE SARS-CoV-2 RNA (RT-PCR) NEGATIVE Blood Type Antibody Screen Crossmatch 12/11/21 12/11/21 12/12/21 19:58 21:37 02:35 WBC RBC Hgb Hct MCV MCH MCHC RDW Plt Count MPV Immature Gran % (Auto) Neut % (Auto) Lymph % (Auto) [place] % (Auto) Eos % (Auto) Baso % (Auto) Lymph # (Auto) [place] # (Auto) Eos # (Auto) Baso # (Auto) Abs Immat Gran (auto) Absolute Neuts (auto) Absolute Nucleated RBC Nucleated RBC % (auto) Neutrophils % (Manual) Band Neutrophils % Lymphocytes % (Manual) Monocytes % (Manual) Abs Neuts (Manual) Lymphocytes # (Manual) Monocytes # (Manual) Platelet Estimate Plt Morphology Comment RBC Morphology Acanthocytes (Spur) Smear Tech's Comments Smear Path Review PT INR APTT O2 Saturation ABG pH at Pt Temp ABG pH (Temp Correct) ABG pCO2 at Pt Temp ABG pCO2 (Temp Corrct ABG pO2 at Pt Temp ABG pO2 (Temp Correct ABG HCO3 ABG Base Excess (Actual) VBG pH VBG pCO2 VBG pO2 VBG HCO3 VBG O2 Saturation VBG Base Excess Sodium Potassium Chloride Carbon Dioxide Anion Gap BUN Creatinine Estim Creat Clear Calc Estimated GFR POC Glucose 184 H Random Glucose Fasting Glucose Osmolality Lactic Acid 0.9 Calcium Phosphorus Magnesium Total Bilirubin Direct Bilirubin AST ALT Alkaline Phosphatase Ammonia Troponin I High Sens B-Natriuretic Peptide Total Protein Albumin Procalcitonin TSH Random Cortisol Urine Color Urine Appearance Urine pH Ur Specific [place] Urine Protein Urine Glucose (UA) Urine Ketones Urine Blood Urine Nitrite Ur Leukocyte Esterase Urine RBC Urine WBC Ur Squamous Epith Cells Urine Bacteria Urine Mucus Urine Osmolality Ur Random Sodium Ur Random Potassium Ur Random Chloride Stool Occult Blood POSITIVE Stool Leukocytes, Qual Random Vancomycin Digoxin C. difficile Tox B Gene COVID-19 (JESSY) COVID-19 Clin Com Influenza Type A (PCR) Influenza Type B (PCR) RSV RNA Qual (PCR) SARS-CoV-2 RNA (RT-PCR) Blood Type Antibody Screen Crossmatch 12/12/21 12/12/21 12/12/21 05:20 05:20 05:24 WBC 17.2 H RBC 4.37 Hgb 9.2 L Hct 30.9 L MCV 70.7 L MCH 21.1 L MCHC 29.8 L RDW 27.7 H Plt Count Not Reportable MPV Not Reportable Immature Gran % (Auto) 1.0 H Neut % (Auto) 86.2 H Lymph % (Auto) 6.9 L [place] % (Auto) 4.6 Eos % (Auto) 1.0 Baso % (Auto) 0.3 Lymph # (Auto) 1.2 [place] # (Auto) 0.8 Eos # (Auto) 0.2 Baso # (Auto) 0.1 Abs Immat Gran (auto) 0.17 H Absolute Neuts (auto) 14.8 H Absolute Nucleated RBC 0.030 H Nucleated RBC % (auto) 0.2 Neutrophils % (Manual) Band Neutrophils % Lymphocytes % (Manual) Monocytes % (Manual) Abs Neuts (Manual) Lymphocytes # (Manual) Monocytes # (Manual) Platelet Estimate Plt Morphology Comment RBC Morphology Acanthocytes (Spur) Smear Tech's Comments VERIFIED Smear Path Review PT INR APTT O2 Saturation ABG pH at Pt Temp ABG pH (Temp Correct) ABG pCO2 at Pt Temp ABG pCO2 (Temp Corrct ABG pO2 at Pt Temp ABG pO2 (Temp Correct ABG HCO3 ABG Base Excess (Actual) VBG pH 7.46 H VBG pCO2 36 VBG pO2 37 VBG HCO3 25 VBG O2 Saturation 59.0 VBG Base Excess 2.1 Sodium 137 Potassium 4.0 Chloride 102 Carbon Dioxide 25 Anion Gap 14 BUN 19 H Creatinine 0.96 Estim Creat Clear Calc 90.5 Estimated GFR 58 POC Glucose Random Glucose 233 H Fasting Glucose Osmolality Lactic Acid Calcium 7.8 L Phosphorus 3.5 Magnesium 2.0 Total Bilirubin 0.8 Direct Bilirubin AST 25 ALT 23 Alkaline Phosphatase 60 Ammonia Troponin I High Sens B-Natriuretic Peptide Total Protein 5.3 L Albumin 2.7 L Procalcitonin TSH Random Cortisol Urine Color Urine Appearance Urine pH Ur Specific [place] Urine Protein Urine Glucose (UA) Urine Ketones Urine Blood Urine Nitrite Ur Leukocyte Esterase Urine RBC Urine WBC Ur Squamous Epith Cells Urine Bacteria Urine Mucus Urine Osmolality Ur Random Sodium Ur Random Potassium Ur Random Chloride Stool Occult Blood Stool Leukocytes, Qual Random Vancomycin Digoxin C. difficile Tox B Gene COVID-19 (JESSY) COVID-19 Clin Com Influenza Type A (PCR) Influenza Type B (PCR) RSV RNA Qual (PCR) SARS-CoV-2 RNA (RT-PCR) Blood Type Antibody Screen Crossmatch 12/12/21 12/12/21 12/12/21 07:28 11:11 16:17 WBC RBC Hgb Hct MCV MCH MCHC RDW Plt Count MPV Immature Gran % (Auto) Neut % (Auto) Lymph % (Auto) [place] % (Auto) Eos % (Auto) Baso % (Auto) Lymph # (Auto) [place] # (Auto) Eos # (Auto) Baso # (Auto) Abs Immat Gran (auto) Absolute Neuts (auto) Absolute Nucleated RBC Nucleated RBC % (auto) Neutrophils % (Manual) Band Neutrophils % Lymphocytes % (Manual) Monocytes % (Manual) Abs Neuts (Manual) Lymphocytes # (Manual) Monocytes # (Manual) Platelet Estimate Plt Morphology Comment RBC Morphology Acanthocytes (Spur) Smear Tech's Comments Smear Path Review PT INR APTT O2 Saturation ABG pH at Pt Temp ABG pH (Temp Correct) ABG pCO2 at Pt Temp ABG pCO2 (Temp Corrct ABG pO2 at Pt Temp ABG pO2 (Temp Correct ABG HCO3 ABG Base Excess (Actual) VBG pH VBG pCO2 VBG pO2 VBG HCO3 VBG O2 Saturation VBG Base Excess Sodium Potassium Chloride Carbon Dioxide Anion Gap BUN Creatinine Estim Creat Clear Calc Estimated GFR POC Glucose 219 H 211 H 126 H Random Glucose Fasting Glucose Osmolality Lactic Acid Calcium Phosphorus Magnesium Total Bilirubin Direct Bilirubin AST ALT Alkaline Phosphatase Ammonia Troponin I High Sens B-Natriuretic Peptide Total Protein Albumin Procalcitonin TSH Random Cortisol Urine Color Urine Appearance Urine pH Ur Specific [place] Urine Protein Urine Glucose (UA) Urine Ketones Urine Blood Urine Nitrite Ur Leukocyte Esterase Urine RBC Urine WBC Ur Squamous Epith Cells Urine Bacteria Urine Mucus Urine Osmolality Ur Random Sodium Ur Random Potassium Ur Random Chloride Stool Occult Blood Stool Leukocytes, Qual Random Vancomycin Digoxin C. difficile Tox B Gene COVID-19 (JESSY) COVID-19 Clin Com Influenza Type A (PCR) Influenza Type B (PCR) RSV RNA Qual (PCR) SARS-CoV-2 RNA (RT-PCR) Blood Type Antibody Screen Crossmatch 12/12/21 12/13/21 12/13/21 20:46 05:20 05:20 WBC 14.9 H RBC 4.04 L Hgb 8.5 L Hct 29.1 L MCV 72.0 L MCH 21.0 L MCHC 29.2 L RDW 27.8 H Plt Count 325 D MPV 11.2 Immature Gran % (Auto) 0.7 H Neut % (Auto) 86.0 H Lymph % (Auto) 5.6 L [place] % (Auto) 6.3 Eos % (Auto) 1.1 Baso % (Auto) 0.3 Lymph # (Auto) 0.8 L [place] # (Auto) 0.9 Eos # (Auto) 0.2 Baso # (Auto) 0.0 Abs Immat Gran (auto) 0.11 H Absolute Neuts (auto) 12.8 H Absolute Nucleated RBC 0.000 Nucleated RBC % (auto) 0.0 Neutrophils % (Manual) Band Neutrophils % Lymphocytes % (Manual) Monocytes % (Manual) Abs Neuts (Manual) Lymphocytes # (Manual) Monocytes # (Manual) Platelet Estimate Plt Morphology Comment RBC Morphology Acanthocytes (Spur) Smear Tech's Comments Smear Path Review PT INR APTT O2 Saturation ABG pH at Pt Temp ABG pH (Temp Correct) ABG pCO2 at Pt Temp ABG pCO2 (Temp Corrct ABG pO2 at Pt Temp ABG pO2 (Temp Correct ABG HCO3 ABG Base Excess (Actual) VBG pH VBG pCO2 VBG pO2 VBG HCO3 VBG O2 Saturation VBG Base Excess Sodium 141 Potassium 3.1 L D Chloride 103 Carbon Dioxide 27 Anion Gap 14 BUN 18 H Creatinine 0.96 Estim Creat Clear Calc 88.3 Estimated GFR 58 POC Glucose 65 Random Glucose 60 Fasting Glucose Osmolality Lactic Acid Calcium 7.9 L Phosphorus 4.4 Magnesium Total Bilirubin 0.7 Direct Bilirubin AST 36 H D ALT 25 Alkaline Phosphatase 60 Ammonia Troponin I High Sens B-Natriuretic Peptide Total Protein 5.2 L Albumin 2.7 L Procalcitonin TSH Random Cortisol Urine Color Urine Appearance Urine pH Ur Specific [place] Urine Protein Urine Glucose (UA) Urine Ketones Urine Blood Urine Nitrite Ur Leukocyte Esterase Urine RBC Urine WBC Ur Squamous Epith Cells Urine Bacteria Urine Mucus Urine Osmolality Ur Random Sodium Ur Random Potassium Ur Random Chloride Stool Occult Blood Stool Leukocytes, Qual Random Vancomycin Digoxin C. difficile Tox B Gene COVID-19 (JESSY) COVID-19 Clin Com Influenza Type A (PCR) Influenza Type B (PCR) RSV RNA Qual (PCR) SARS-CoV-2 RNA (RT-PCR) Blood Type Antibody Screen Crossmatch 12/13/21 12/13/21 12/13/21 05:23 07:40 08:30 WBC RBC Hgb Hct MCV MCH MCHC RDW Plt Count MPV Immature Gran % (Auto) Neut % (Auto) Lymph % (Auto) [place] % (Auto) Eos % (Auto) Baso % (Auto) Lymph # (Auto) [place] # (Auto) Eos # (Auto) Baso # (Auto) Abs Immat Gran (auto) Absolute Neuts (auto) Absolute Nucleated RBC Nucleated RBC % (auto) Neutrophils % (Manual) Band Neutrophils % Lymphocytes % (Manual) Monocytes % (Manual) Abs Neuts (Manual) Lymphocytes # (Manual) Monocytes # (Manual) Platelet Estimate Plt Morphology Comment RBC Morphology Acanthocytes (Spur) Smear Tech's Comments Smear Path Review PT INR APTT O2 Saturation ABG pH at Pt Temp ABG pH (Temp Correct) ABG pCO2 at Pt Temp ABG pCO2 (Temp Corrct ABG pO2 at Pt Temp ABG pO2 (Temp Correct ABG HCO3 ABG Base Excess (Actual) VBG pH 7.38 VBG pCO2 51 VBG pO2 42 VBG HCO3 30 H VBG O2 Saturation 66.0 VBG Base Excess 4.8 Sodium Potassium Chloride Carbon Dioxide Anion Gap BUN Creatinine Estim Creat Clear Calc Estimated GFR POC Glucose 57 L* 122 H Random Glucose Fasting Glucose Osmolality Lactic Acid Calcium Phosphorus Magnesium Total Bilirubin Direct Bilirubin AST ALT Alkaline Phosphatase Ammonia Troponin I High Sens B-Natriuretic Peptide Total Protein Albumin Procalcitonin TSH Random Cortisol Urine Color Urine Appearance Urine pH Ur Specific [place] Urine Protein Urine Glucose (UA) Urine Ketones Urine Blood Urine Nitrite Ur Leukocyte Esterase Urine RBC Urine WBC Ur Squamous Epith Cells Urine Bacteria Urine Mucus Urine Osmolality Ur Random Sodium Ur Random Potassium Ur Random Chloride Stool Occult Blood Stool Leukocytes, Qual Random Vancomycin Digoxin C. difficile Tox B Gene COVID-19 (JESSY) COVID-19 Clin Com Influenza Type A (PCR) Influenza Type B (PCR) RSV RNA Qual (PCR) SARS-CoV-2 RNA (RT-PCR) Blood Type Antibody Screen Crossmatch 12/13/21 12/13/21 12/13/21 11:44 16:22 16:43 WBC RBC Hgb Hct MCV MCH MCHC RDW Plt Count MPV Immature Gran % (Auto) Neut % (Auto) Lymph % (Auto) [place] % (Auto) Eos % (Auto) Baso % (Auto) Lymph # (Auto) [place] # (Auto) Eos # (Auto) Baso # (Auto) Abs Immat Gran (auto) Absolute Neuts (auto) Absolute Nucleated RBC Nucleated RBC % (auto) Neutrophils % (Manual) Band Neutrophils % Lymphocytes % (Manual) Monocytes % (Manual) Abs Neuts (Manual) Lymphocytes # (Manual) Monocytes # (Manual) Platelet Estimate Plt Morphology Comment RBC Morphology Acanthocytes (Spur) Smear Tech's Comments Smear Path Review PT INR APTT O2 Saturation ABG pH at Pt Temp ABG pH (Temp Correct) ABG pCO2 at Pt Temp ABG pCO2 (Temp Corrct ABG pO2 at Pt Temp ABG pO2 (Temp Correct ABG HCO3 ABG Base Excess (Actual) VBG pH VBG pCO2 VBG pO2 VBG HCO3 VBG O2 Saturation VBG Base Excess Sodium Potassium Chloride Carbon Dioxide Anion Gap BUN Creatinine Estim Creat Clear Calc Estimated GFR POC Glucose 85 57 L* 82 Random Glucose Fasting Glucose Osmolality Lactic Acid Calcium Phosphorus Magnesium Total Bilirubin Direct Bilirubin AST ALT Alkaline Phosphatase Ammonia Troponin I High Sens B-Natriuretic Peptide Total Protein Albumin Procalcitonin TSH Random Cortisol Urine Color Urine Appearance Urine pH Ur Specific [place] Urine Protein Urine Glucose (UA) Urine Ketones Urine Blood Urine Nitrite Ur Leukocyte Esterase Urine RBC Urine WBC Ur Squamous Epith Cells Urine Bacteria Urine Mucus Urine Osmolality Ur Random Sodium Ur Random Potassium Ur Random Chloride Stool Occult Blood Stool Leukocytes, Qual Random Vancomycin Digoxin C. difficile Tox B Gene COVID-19 (JESSY) COVID-19 Clin Com Influenza Type A (PCR) Influenza Type B (PCR) RSV RNA Qual (PCR) SARS-CoV-2 RNA (RT-PCR) Blood Type Antibody Screen Crossmatch 12/13/21 12/13/21 12/14/21 17:44 20:49 04:48 WBC 10.3 RBC 3.89 L Hgb 8.2 L Hct 28.0 L MCV 72.0 L MCH 21.1 L MCHC 29.3 L RDW 27.8 H Plt Count 420 H D MPV 10.8 Immature Gran % (Auto) 0.8 H Neut % (Auto) 83.2 H Lymph % (Auto) 6.7 L [place] % (Auto) 7.8 Eos % (Auto) 1.3 Baso % (Auto) 0.2 Lymph # (Auto) 0.7 L [place] # (Auto) 0.8 Eos # (Auto) 0.1 Baso # (Auto) 0.0 Abs Immat Gran (auto) 0.08 H Absolute Neuts (auto) 8.6 H Absolute Nucleated RBC 0.000 Nucleated RBC % (auto) 0.0 Neutrophils % (Manual) Band Neutrophils % Lymphocytes % (Manual) Monocytes % (Manual) Abs Neuts (Manual) Lymphocytes # (Manual) Monocytes # (Manual) Platelet Estimate Plt Morphology Comment RBC Morphology Acanthocytes (Spur) Smear Tech's Comments Smear Path Review PT INR APTT O2 Saturation ABG pH at Pt Temp ABG pH (Temp Correct) ABG pCO2 at Pt Temp ABG pCO2 (Temp Corrct ABG pO2 at Pt Temp ABG pO2 (Temp Correct ABG HCO3 ABG Base Excess (Actual) VBG pH VBG pCO2 VBG pO2 VBG HCO3 VBG O2 Saturation VBG Base Excess Sodium Potassium Chloride Carbon Dioxide Anion Gap BUN Creatinine Estim Creat Clear Calc Estimated GFR POC Glucose 108 79 Random Glucose Fasting Glucose Osmolality Lactic Acid Calcium Phosphorus Magnesium Total Bilirubin Direct Bilirubin AST ALT Alkaline Phosphatase Ammonia Troponin I High Sens B-Natriuretic Peptide Total Protein Albumin Procalcitonin TSH Random Cortisol Urine Color Urine Appearance Urine pH Ur Specific [place] Urine Protein Urine Glucose (UA) Urine Ketones Urine Blood Urine Nitrite Ur Leukocyte Esterase Urine RBC Urine WBC Ur Squamous Epith Cells Urine Bacteria Urine Mucus Urine Osmolality Ur Random Sodium Ur Random Potassium Ur Random Chloride Stool Occult Blood Stool Leukocytes, Qual Random Vancomycin Digoxin C. difficile Tox B Gene COVID-19 (JESSY) COVID-19 Clin Com Influenza Type A (PCR) Influenza Type B (PCR) RSV RNA Qual (PCR) SARS-CoV-2 RNA (RT-PCR) Blood Type Antibody Screen Crossmatch 12/14/21 12/14/21 12/14/21 04:48 04:48 04:48 WBC RBC Hgb Hct MCV MCH MCHC RDW Plt Count MPV Immature Gran % (Auto) Neut % (Auto) Lymph % (Auto) [place] % (Auto) Eos % (Auto) Baso % (Auto) Lymph # (Auto) [place] # (Auto) Eos # (Auto) Baso # (Auto) Abs Immat Gran (auto) Absolute Neuts (auto) Absolute Nucleated RBC Nucleated RBC % (auto) Neutrophils % (Manual) Band Neutrophils % Lymphocytes % (Manual) Monocytes % (Manual) Abs Neuts (Manual) Lymphocytes # (Manual) Monocytes # (Manual) Platelet Estimate Plt Morphology Comment RBC Morphology Acanthocytes (Spur) Smear Tech's Comments Smear Path Review PT 22.4 H INR 1.9 H APTT 44.5 H O2 Saturation ABG pH at Pt Temp ABG pH (Temp Correct) ABG pCO2 at Pt Temp ABG pCO2 (Temp Corrct ABG pO2 at Pt Temp ABG pO2 (Temp Correct ABG HCO3 ABG Base Excess (Actual) VBG pH VBG pCO2 VBG pO2 VBG HCO3 VBG O2 Saturation VBG Base Excess Sodium 140 Potassium 3.0 L Chloride 105 Carbon Dioxide 30 H Anion Gap 8 L BUN 15 Creatinine 0.76 Estim Creat Clear Calc 111.5 Estimated GFR > 60 POC Glucose Random Glucose 66 Fasting Glucose Osmolality Lactic Acid Calcium 8.2 L Phosphorus 2.7 Magnesium 2.1 Total Bilirubin 0.6 Direct Bilirubin 0.5 AST 30 ALT 25 Alkaline Phosphatase 61 Ammonia Troponin I High Sens B-Natriuretic Peptide 253 H Total Protein 5.0 L Albumin 2.6 L Procalcitonin TSH Random Cortisol Urine Color Urine Appearance Urine pH Ur Specific [place] Urine Protein Urine Glucose (UA) Urine Ketones Urine Blood Urine Nitrite Ur Leukocyte Esterase Urine RBC Urine WBC Ur Squamous Epith Cells Urine Bacteria Urine Mucus Urine Osmolality Ur Random Sodium Ur Random Potassium Ur Random Chloride Stool Occult Blood Stool Leukocytes, Qual Random Vancomycin Digoxin C. difficile Tox B Gene COVID-19 (JESSY) COVID-19 Clin Com Influenza Type A (PCR) Influenza Type B (PCR) RSV RNA Qual (PCR) SARS-CoV-2 RNA (RT-PCR) Blood Type Antibody Screen Crossmatch 12/14/21 12/14/21 12/14/21 04:57 07:13 11:20 WBC RBC Hgb Hct MCV MCH MCHC RDW Plt Count MPV Immature Gran % (Auto) Neut % (Auto) Lymph % (Auto) [place] % (Auto) Eos % (Auto) Baso % (Auto) Lymph # (Auto) [place] # (Auto) Eos # (Auto) Baso # (Auto) Abs Immat Gran (auto) Absolute Neuts (auto) Absolute Nucleated RBC Nucleated RBC % (auto) Neutrophils % (Manual) Band Neutrophils % Lymphocytes % (Manual) Monocytes % (Manual) Abs Neuts (Manual) Lymphocytes # (Manual) Monocytes # (Manual) Platelet Estimate Plt Morphology Comment RBC Morphology Acanthocytes (Spur) Smear Tech's Comments Smear Path Review PT INR APTT O2 Saturation ABG pH at Pt Temp ABG pH (Temp Correct) ABG pCO2 at Pt Temp ABG pCO2 (Temp Corrct ABG pO2 at Pt Temp ABG pO2 (Temp Correct ABG HCO3 ABG Base Excess (Actual) VBG pH 7.42 VBG pCO2 42 VBG pO2 41 VBG HCO3 28 H VBG O2 Saturation 61.0 VBG Base Excess 3.5 Sodium Potassium Chloride Carbon Dioxide Anion Gap BUN Creatinine Estim Creat Clear Calc Estimated GFR POC Glucose 72 71 Random Glucose Fasting Glucose Osmolality Lactic Acid Calcium Phosphorus Magnesium Total Bilirubin Direct Bilirubin AST ALT Alkaline Phosphatase Ammonia Troponin I High Sens B-Natriuretic Peptide Total Protein Albumin Procalcitonin TSH Random Cortisol Urine Color Urine Appearance Urine pH Ur Specific [place] Urine Protein Urine Glucose (UA) Urine Ketones Urine Blood Urine Nitrite Ur Leukocyte Esterase Urine RBC Urine WBC Ur Squamous Epith Cells Urine Bacteria Urine Mucus Urine Osmolality Ur Random Sodium Ur Random Potassium Ur Random Chloride Stool Occult Blood Stool Leukocytes, Qual Random Vancomycin Digoxin C. difficile Tox B Gene COVID-19 (JESSY) COVID-19 Clin Com Influenza Type A (PCR) Influenza Type B (PCR) RSV RNA Qual (PCR) SARS-CoV-2 RNA (RT-PCR) Blood Type Antibody Screen Crossmatch 12/14/21 12/14/21 12/15/21 16:17 20:30 05:20 WBC 9.7 RBC 4.18 L Hgb 8.9 L Hct 30.6 L MCV 73.2 L MCH 21.3 L MCHC 29.1 L RDW 28.6 H Plt Count 562 H D MPV 9.8 Immature Gran % (Auto) 0.6 H Neut % (Auto) 82.8 H Lymph % (Auto) 7.3 L [place] % (Auto) 7.8 Eos % (Auto) 1.3 Baso % (Auto) 0.2 Lymph # (Auto) 0.7 L [place] # (Auto) 0.8 Eos # (Auto) 0.1 Baso # (Auto) 0.0 Abs Immat Gran (auto) 0.06 H Absolute Neuts (auto) 8.0 Absolute Nucleated RBC 0.000 Nucleated RBC % (auto) 0.0 Neutrophils % (Manual) Band Neutrophils % Lymphocytes % (Manual) Monocytes % (Manual) Abs Neuts (Manual) Lymphocytes # (Manual) Monocytes # (Manual) Platelet Estimate Plt Morphology Comment RBC Morphology Acanthocytes (Spur) Smear Tech's Comments Smear Path Review PT INR APTT O2 Saturation ABG pH at Pt Temp ABG pH (Temp Correct) ABG pCO2 at Pt Temp ABG pCO2 (Temp Corrct ABG pO2 at Pt Temp ABG pO2 (Temp Correct ABG HCO3 ABG Base Excess (Actual) VBG pH VBG pCO2 VBG pO2 VBG HCO3 VBG O2 Saturation VBG Base Excess Sodium Potassium Chloride Carbon Dioxide Anion Gap BUN Creatinine Estim Creat Clear Calc Estimated GFR POC Glucose 72 79 Random Glucose Fasting Glucose Osmolality Lactic Acid Calcium Phosphorus Magnesium Total Bilirubin Direct Bilirubin AST ALT Alkaline Phosphatase Ammonia Troponin I High Sens B-Natriuretic Peptide Total Protein Albumin Procalcitonin TSH Random Cortisol Urine Color Urine Appearance Urine pH Ur Specific [place] Urine Protein Urine Glucose (UA) Urine Ketones Urine Blood Urine Nitrite Ur Leukocyte Esterase Urine RBC Urine WBC Ur Squamous Epith Cells Urine Bacteria Urine Mucus Urine Osmolality Ur Random Sodium Ur Random Potassium Ur Random Chloride Stool Occult Blood Stool Leukocytes, Qual Random Vancomycin Digoxin C. difficile Tox B Gene COVID-19 (JESSY) COVID-19 Clin Com Influenza Type A (PCR) Influenza Type B (PCR) RSV RNA Qual (PCR) SARS-CoV-2 RNA (RT-PCR) Blood Type Antibody Screen Crossmatch 12/15/21 12/15/21 12/15/21 05:20 05:20 05:20 WBC RBC Hgb Hct MCV MCH MCHC RDW Plt Count MPV Immature Gran % (Auto) Neut % (Auto) Lymph % (Auto) [place] % (Auto) Eos % (Auto) Baso % (Auto) Lymph # (Auto) [place] # (Auto) Eos # (Auto) Baso # (Auto) Abs Immat Gran (auto) Absolute Neuts (auto) Absolute Nucleated RBC Nucleated RBC % (auto) Neutrophils % (Manual) Band Neutrophils % Lymphocytes % (Manual) Monocytes % (Manual) Abs Neuts (Manual) Lymphocytes # (Manual) Monocytes # (Manual) Platelet Estimate Plt Morphology Comment RBC Morphology Acanthocytes (Spur) Smear Tech's Comments Smear Path Review PT 24.2 H INR 2.1 H APTT 39.5 H O2 Saturation ABG pH at Pt Temp ABG pH (Temp Correct) ABG pCO2 at Pt Temp ABG pCO2 (Temp Corrct ABG pO2 at Pt Temp ABG pO2 (Temp Correct ABG HCO3 ABG Base Excess (Actual) VBG pH VBG pCO2 VBG pO2 VBG HCO3 VBG O2 Saturation VBG Base Excess Sodium 143 Potassium 3.3 Chloride 109 H Carbon Dioxide 26 Anion Gap 11 L BUN 13 Creatinine 0.69 Estim Creat Clear Calc 122.2 Estimated GFR > 60 POC Glucose Random Glucose 78 Fasting Glucose Osmolality Lactic Acid Calcium 8.1 L Phosphorus 2.4 L Magnesium 2.2 Total Bilirubin 0.7 Direct Bilirubin 0.4 AST 33 H ALT 31 Alkaline Phosphatase 65 Ammonia Troponin I High Sens B-Natriuretic Peptide 433 H Total Protein 5.2 L Albumin 2.7 L Procalcitonin TSH Random Cortisol Urine Color Urine Appearance Urine pH Ur Specific [place] Urine Protein Urine Glucose (UA) Urine Ketones Urine Blood Urine Nitrite Ur Leukocyte Esterase Urine RBC Urine WBC Ur Squamous Epith Cells Urine Bacteria Urine Mucus Urine Osmolality Ur Random Sodium Ur Random Potassium Ur Random Chloride Stool Occult Blood Stool Leukocytes, Qual Random Vancomycin Digoxin C. difficile Tox B Gene COVID-19 (JESSY) COVID-19 Clin Com Influenza Type A (PCR) Influenza Type B (PCR) RSV RNA Qual (PCR) SARS-CoV-2 RNA (RT-PCR) Blood Type Antibody Screen Crossmatch 12/15/21 12/15/21 12/15/21 07:28 09:41 11:24 WBC RBC Hgb Hct MCV MCH MCHC RDW Plt Count MPV Immature Gran % (Auto) Neut % (Auto) Lymph % (Auto) [place] % (Auto) Eos % (Auto) Baso % (Auto) Lymph # (Auto) [place] # (Auto) Eos # (Auto) Baso # (Auto) Abs Immat Gran (auto) Absolute Neuts (auto) Absolute Nucleated RBC Nucleated RBC % (auto) Neutrophils % (Manual) Band Neutrophils % Lymphocytes % (Manual) Monocytes % (Manual) Abs Neuts (Manual) Lymphocytes # (Manual) Monocytes # (Manual) Platelet Estimate Plt Morphology Comment RBC Morphology Acanthocytes (Spur) Smear Tech's Comments Smear Path Review PT INR APTT O2 Saturation ABG pH at Pt Temp ABG pH (Temp Correct) ABG pCO2 at Pt Temp ABG pCO2 (Temp Corrct ABG pO2 at Pt Temp ABG pO2 (Temp Correct ABG HCO3 ABG Base Excess (Actual) VBG pH 7.44 H VBG pCO2 34 VBG pO2 84 VBG HCO3 23 VBG O2 Saturation 96.0 VBG Base Excess 0.1 Sodium Potassium Chloride Carbon Dioxide Anion Gap BUN Creatinine Estim Creat Clear Calc Estimated GFR POC Glucose 82 86 Random Glucose Fasting Glucose Osmolality Lactic Acid Calcium Phosphorus Magnesium Total Bilirubin Direct Bilirubin AST ALT Alkaline Phosphatase Ammonia Troponin I High Sens B-Natriuretic Peptide Total Protein Albumin Procalcitonin TSH Random Cortisol Urine Color Urine Appearance Urine pH Ur Specific [place] Urine Protein Urine Glucose (UA) Urine Ketones Urine Blood Urine Nitrite Ur Leukocyte Esterase Urine RBC Urine WBC Ur Squamous Epith Cells Urine Bacteria Urine Mucus Urine Osmolality Ur Random Sodium Ur Random Potassium Ur Random Chloride Stool Occult Blood Stool Leukocytes, Qual Random Vancomycin Digoxin C. difficile Tox B Gene COVID-19 (JESSY) COVID-19 Clin Com Influenza Type A (PCR) Influenza Type B (PCR) RSV RNA Qual (PCR) SARS-CoV-2 RNA (RT-PCR) Blood Type Antibody Screen Crossmatch 12/15/21 12/15/21 12/16/21 16:10 19:27 06:09 WBC 10.1 RBC 4.45 Hgb 9.4 L Hct 32.3 L MCV 72.6 L MCH 21.1 L MCHC 29.1 L RDW 29.2 H Plt Count 671 H MPV 9.6 Immature Gran % (Auto) 0.8 H Neut % (Auto) 81.8 H Lymph % (Auto) 8.0 L [place] % (Auto) 7.6 Eos % (Auto) 1.4 Baso % (Auto) 0.4 Lymph # (Auto) 0.8 L [place] # (Auto) 0.8 Eos # (Auto) 0.1 Baso # (Auto) 0.0 Abs Immat Gran (auto) 0.08 H Absolute Neuts (auto) 8.3 Absolute Nucleated RBC 0.000 Nucleated RBC % (auto) 0.0 Neutrophils % (Manual) Band Neutrophils % Lymphocytes % (Manual) Monocytes % (Manual) Abs Neuts (Manual) Lymphocytes # (Manual) Monocytes # (Manual) Platelet Estimate Plt Morphology Comment RBC Morphology Acanthocytes (Spur) Smear Tech's Comments Smear Path Review PT INR APTT O2 Saturation ABG pH at Pt Temp ABG pH (Temp Correct) ABG pCO2 at Pt Temp ABG pCO2 (Temp Corrct ABG pO2 at Pt Temp ABG pO2 (Temp Correct ABG HCO3 ABG Base Excess (Actual) VBG pH VBG pCO2 VBG pO2 VBG HCO3 VBG O2 Saturation VBG Base Excess Sodium Potassium Chloride Carbon Dioxide Anion Gap BUN Creatinine Estim Creat Clear Calc Estimated GFR POC Glucose 79 107 Random Glucose Fasting Glucose Osmolality Lactic Acid Calcium Phosphorus Magnesium Total Bilirubin Direct Bilirubin AST ALT Alkaline Phosphatase Ammonia Troponin I High Sens B-Natriuretic Peptide Total Protein Albumin Procalcitonin TSH Random Cortisol Urine Color Urine Appearance Urine pH Ur Specific [place] Urine Protein Urine Glucose (UA) Urine Ketones Urine Blood Urine Nitrite Ur Leukocyte Esterase Urine RBC Urine WBC Ur Squamous Epith Cells Urine Bacteria Urine Mucus Urine Osmolality Ur Random Sodium Ur Random Potassium Ur Random Chloride Stool Occult Blood Stool Leukocytes, Qual Random Vancomycin Digoxin C. difficile Tox B Gene COVID-19 (JESSY) COVID-19 Clin Com Influenza Type A (PCR) Influenza Type B (PCR) RSV RNA Qual (PCR) SARS-CoV-2 RNA (RT-PCR) Blood Type Antibody Screen Crossmatch 12/16/21 12/16/21 12/16/21 06:09 06:09 06:09 WBC RBC Hgb Hct MCV MCH MCHC RDW Plt Count MPV Immature Gran % (Auto) Neut % (Auto) Lymph % (Auto) [place] % (Auto) Eos % (Auto) Baso % (Auto) Lymph # (Auto) [place] # (Auto) Eos # (Auto) Baso # (Auto) Abs Immat Gran (auto) Absolute Neuts (auto) Absolute Nucleated RBC Nucleated RBC % (auto) Neutrophils % (Manual) Band Neutrophils % Lymphocytes % (Manual) Monocytes % (Manual) Abs Neuts (Manual) Lymphocytes # (Manual) Monocytes # (Manual) Platelet Estimate Plt Morphology Comment RBC Morphology Acanthocytes (Spur) Smear Tech's Comments Smear Path Review PT 24.2 H INR 2.1 H APTT 41.5 H O2 Saturation ABG pH at Pt Temp ABG pH (Temp Correct) ABG pCO2 at Pt Temp ABG pCO2 (Temp Corrct ABG pO2 at Pt Temp ABG pO2 (Temp Correct ABG HCO3 ABG Base Excess (Actual) VBG pH VBG pCO2 VBG pO2 VBG HCO3 VBG O2 Saturation VBG Base Excess Sodium 147 H Potassium 3.6 Chloride 110 H Carbon Dioxide 28 Anion Gap 13 BUN 12 Creatinine 0.68 Estim Creat Clear Calc 122.1 Estimated GFR > 60 POC Glucose Random Glucose 118 H Fasting Glucose Osmolality Lactic Acid Calcium 8.3 L Phosphorus 2.5 L Magnesium 2.3 Total Bilirubin 0.8 Direct Bilirubin 0.5 AST 34 H ALT 37 H Alkaline Phosphatase 70 Ammonia Troponin I High Sens B-Natriuretic Peptide 407 H Total Protein 5.6 L Albumin 2.9 L Procalcitonin TSH Random Cortisol Urine Color Urine Appearance Urine pH Ur Specific [place] Urine Protein Urine Glucose (UA) Urine Ketones Urine Blood Urine Nitrite Ur Leukocyte Esterase Urine RBC Urine WBC Ur Squamous Epith Cells Urine Bacteria Urine Mucus Urine Osmolality Ur Random Sodium Ur Random Potassium Ur Random Chloride Stool Occult Blood Stool Leukocytes, Qual Random Vancomycin Digoxin C. difficile Tox B Gene COVID-19 (JESSY) COVID-19 Clin Com Influenza Type A (PCR) Influenza Type B (PCR) RSV RNA Qual (PCR) SARS-CoV-2 RNA (RT-PCR) Blood Type Antibody Screen Crossmatch 12/16/21 12/16/21 12/16/21 06:15 07:13 10:58 WBC RBC Hgb Hct MCV MCH MCHC RDW Plt Count MPV Immature Gran % (Auto) Neut % (Auto) Lymph % (Auto) [place] % (Auto) Eos % (Auto) Baso % (Auto) Lymph # (Auto) [place] # (Auto) Eos # (Auto) Baso # (Auto) Abs Immat Gran (auto) Absolute Neuts (auto) Absolute Nucleated RBC Nucleated RBC % (auto) Neutrophils % (Manual) Band Neutrophils % Lymphocytes % (Manual) Monocytes % (Manual) Abs Neuts (Manual) Lymphocytes # (Manual) Monocytes # (Manual) Platelet Estimate Plt Morphology Comment RBC Morphology Acanthocytes (Spur) Smear Tech's Comments Smear Path Review PT INR APTT O2 Saturation ABG pH at Pt Temp ABG pH (Temp Correct) ABG pCO2 at Pt Temp ABG pCO2 (Temp Corrct ABG pO2 at Pt Temp ABG pO2 (Temp Correct ABG HCO3 ABG Base Excess (Actual) VBG pH 7.45 H VBG pCO2 36 VBG pO2 53 VBG HCO3 25 VBG O2 Saturation 83.0 VBG Base Excess 1.8 Sodium Potassium Chloride Carbon Dioxide Anion Gap BUN Creatinine Estim Creat Clear Calc Estimated GFR POC Glucose 117 H 223 H Random Glucose Fasting Glucose Osmolality Lactic Acid Calcium Phosphorus Magnesium Total Bilirubin Direct Bilirubin AST ALT Alkaline Phosphatase Ammonia Troponin I High Sens B-Natriuretic Peptide Total Protein Albumin Procalcitonin TSH Random Cortisol Urine Color Urine Appearance Urine pH Ur Specific [place] Urine Protein Urine Glucose (UA) Urine Ketones Urine Blood Urine Nitrite Ur Leukocyte Esterase Urine RBC Urine WBC Ur Squamous Epith Cells Urine Bacteria Urine Mucus Urine Osmolality Ur Random Sodium Ur Random Potassium Ur Random Chloride Stool Occult Blood Stool Leukocytes, Qual Random Vancomycin Digoxin C. difficile Tox B Gene COVID-19 (JESSY) COVID-19 Clin Com Influenza Type A (PCR) Influenza Type B (PCR) RSV RNA Qual (PCR) SARS-CoV-2 RNA (RT-PCR) Blood Type Antibody Screen Crossmatch 12/16/21 12/16/21 12/17/21 15:45 20:11 04:47 WBC 11.8 H RBC 4.53 Hgb 9.6 L Hct 33.5 L MCV 74.0 L MCH 21.2 L MCHC 28.7 L RDW 29.8 H Plt Count 664 H MPV 9.2 L Immature Gran % (Auto) 0.5 H Neut % (Auto) 84.0 H Lymph % (Auto) 7.6 L [place] % (Auto) 6.4 Eos % (Auto) 1.2 Baso % (Auto) 0.3 Lymph # (Auto) 0.9 L [place] # (Auto) 0.8 Eos # (Auto) 0.1 Baso # (Auto) 0.0 Abs Immat Gran (auto) 0.06 H Absolute Neuts (auto) 9.9 H Absolute Nucleated RBC 0.000 Nucleated RBC % (auto) 0.0 Neutrophils % (Manual) Band Neutrophils % Lymphocytes % (Manual) Monocytes % (Manual) Abs Neuts (Manual) Lymphocytes # (Manual) Monocytes # (Manual) Platelet Estimate Plt Morphology Comment RBC Morphology Acanthocytes (Spur) Smear Tech's Comments Smear Path Review PT INR APTT O2 Saturation ABG pH at Pt Temp ABG pH (Temp Correct) ABG pCO2 at Pt Temp ABG pCO2 (Temp Corrct ABG pO2 at Pt Temp ABG pO2 (Temp Correct ABG HCO3 ABG Base Excess (Actual) VBG pH VBG pCO2 VBG pO2 VBG HCO3 VBG O2 Saturation VBG Base Excess Sodium Potassium Chloride Carbon Dioxide Anion Gap BUN Creatinine Estim Creat Clear Calc Estimated GFR POC Glucose 182 H 171 H Random Glucose Fasting Glucose Osmolality Lactic Acid Calcium Phosphorus Magnesium Total Bilirubin Direct Bilirubin AST ALT Alkaline Phosphatase Ammonia Troponin I High Sens B-Natriuretic Peptide Total Protein Albumin Procalcitonin TSH Random Cortisol Urine Color Urine Appearance Urine pH Ur Specific [place] Urine Protein Urine Glucose (UA) Urine Ketones Urine Blood Urine Nitrite Ur Leukocyte Esterase Urine RBC Urine WBC Ur Squamous Epith Cells Urine Bacteria Urine Mucus Urine Osmolality Ur Random Sodium Ur Random Potassium Ur Random Chloride Stool Occult Blood Stool Leukocytes, Qual Random Vancomycin Digoxin C. difficile Tox B Gene COVID-19 (JESSY) COVID-19 Clin Com Influenza Type A (PCR) Influenza Type B (PCR) RSV RNA Qual (PCR) SARS-CoV-2 RNA (RT-PCR) Blood Type Antibody Screen Crossmatch 12/17/21 12/17/21 12/17/21 04:47 04:47 04:47 WBC RBC Hgb Hct MCV MCH MCHC RDW Plt Count MPV Immature Gran % (Auto) Neut % (Auto) Lymph % (Auto) [place] % (Auto) Eos % (Auto) Baso % (Auto) Lymph # (Auto) [place] # (Auto) Eos # (Auto) Baso # (Auto) Abs Immat Gran (auto) Absolute Neuts (auto) Absolute Nucleated RBC Nucleated RBC % (auto) Neutrophils % (Manual) Band Neutrophils % Lymphocytes % (Manual) Monocytes % (Manual) Abs Neuts (Manual) Lymphocytes # (Manual) Monocytes # (Manual) Platelet Estimate Plt Morphology Comment RBC Morphology Acanthocytes (Spur) Smear Tech's Comments Smear Path Review PT 27.6 H INR 2.4 H APTT 44.9 H O2 Saturation ABG pH at Pt Temp ABG pH (Temp Correct) ABG pCO2 at Pt Temp ABG pCO2 (Temp Corrct ABG pO2 at Pt Temp ABG pO2 (Temp Correct ABG HCO3 ABG Base Excess (Actual) VBG pH VBG pCO2 VBG pO2 VBG HCO3 VBG O2 Saturation VBG Base Excess Sodium Cancelled Potassium Cancelled Chloride Cancelled Carbon Dioxide Cancelled Anion Gap Cancelled BUN Cancelled Creatinine Cancelled Estim Creat Clear Calc Cancelled Estimated GFR Cancelled POC Glucose Random Glucose Cancelled Fasting Glucose Osmolality Lactic Acid Calcium Cancelled Phosphorus Magnesium Total Bilirubin Direct Bilirubin AST ALT Alkaline Phosphatase Ammonia Troponin I High Sens B-Natriuretic Peptide 376 H Total Protein Albumin Procalcitonin TSH Random Cortisol Urine Color Urine Appearance Urine pH Ur Specific [place] Urine Protein Urine Glucose (UA) Urine Ketones Urine Blood Urine Nitrite Ur Leukocyte Esterase Urine RBC Urine WBC Ur Squamous Epith Cells Urine Bacteria Urine Mucus Urine Osmolality Ur Random Sodium Ur Random Potassium Ur Random Chloride Stool Occult Blood Stool Leukocytes, Qual Random Vancomycin Digoxin C. difficile Tox B Gene COVID-19 (JESSY) COVID-19 Clin Com Influenza Type A (PCR) Influenza Type B (PCR) RSV RNA Qual (PCR) SARS-CoV-2 RNA (RT-PCR) Blood Type Antibody Screen Crossmatch 12/17/21 12/17/21 12/17/21 04:48 04:52 04:57 WBC RBC Hgb Hct MCV MCH MCHC RDW Plt Count MPV Immature Gran % (Auto) Neut % (Auto) Lymph % (Auto) [place] % (Auto) Eos % (Auto) Baso % (Auto) Lymph # (Auto) [place] # (Auto) Eos # (Auto) Baso # (Auto) Abs Immat Gran (auto) Absolute Neuts (auto) Absolute Nucleated RBC Nucleated RBC % (auto) Neutrophils % (Manual) Band Neutrophils % Lymphocytes % (Manual) Monocytes % (Manual) Abs Neuts (Manual) Lymphocytes # (Manual) Monocytes # (Manual) Platelet Estimate Plt Morphology Comment RBC Morphology Acanthocytes (Spur) Smear Tech's Comments Smear Path Review PT INR APTT O2 Saturation 90.0 ABG pH at Pt Temp 7.49 H ABG pH (Temp Correct) ABG pCO2 at Pt Temp 38 ABG pCO2 (Temp Corrct ABG pO2 at Pt Temp 63 L ABG pO2 (Temp Correct ABG HCO3 29 H ABG Base Excess (Actual) 6.4 VBG pH 7.48 H VBG pCO2 37 VBG pO2 53 VBG HCO3 28 H VBG O2 Saturation 83.0 VBG Base Excess 4.4 Sodium 150 H Potassium 3.8 Chloride 113 H Carbon Dioxide 28 Anion Gap 13 BUN 9 Creatinine 0.66 Estim Creat Clear Calc 125.7 Estimated GFR > 60 POC Glucose Random Glucose 185 H Fasting Glucose Osmolality Lactic Acid Calcium 8.2 L Phosphorus 2.4 L Magnesium 2.2 Total Bilirubin 0.7 Direct Bilirubin 0.4 AST 31 ALT 34 H Alkaline Phosphatase 69 Ammonia Troponin I High Sens B-Natriuretic Peptide Total Protein 5.7 L Albumin 2.9 L Procalcitonin TSH Random Cortisol Urine Color Urine Appearance Urine pH Ur Specific [place] Urine Protein Urine Glucose (UA) Urine Ketones Urine Blood Urine Nitrite Ur Leukocyte Esterase Urine RBC Urine WBC Ur Squamous Epith Cells Urine Bacteria Urine Mucus Urine Osmolality Ur Random Sodium Ur Random Potassium Ur Random Chloride Stool Occult Blood Stool Leukocytes, Qual Random Vancomycin Digoxin C. difficile Tox B Gene COVID-19 (JESSY) COVID-19 Clin Com Influenza Type A (PCR) Influenza Type B (PCR) RSV RNA Qual (PCR) SARS-CoV-2 RNA (RT-PCR) Blood Type Antibody Screen Crossmatch 12/17/21 12/17/21 12/17/21 07:16 10:47 16:22 WBC RBC Hgb Hct MCV MCH MCHC RDW Plt Count MPV Immature Gran % (Auto) Neut % (Auto) Lymph % (Auto) [place] % (Auto) Eos % (Auto) Baso % (Auto) Lymph # (Auto) [place] # (Auto) Eos # (Auto) Baso # (Auto) Abs Immat Gran (auto) Absolute Neuts (auto) Absolute Nucleated RBC Nucleated RBC % (auto) Neutrophils % (Manual) Band Neutrophils % Lymphocytes % (Manual) Monocytes % (Manual) Abs Neuts (Manual) Lymphocytes # (Manual) Monocytes # (Manual) Platelet Estimate Plt Morphology Comment RBC Morphology Acanthocytes (Spur) Smear Tech's Comments Smear Path Review PT INR APTT O2 Saturation ABG pH at Pt Temp ABG pH (Temp Correct) ABG pCO2 at Pt Temp ABG pCO2 (Temp Corrct ABG pO2 at Pt Temp ABG pO2 (Temp Correct ABG HCO3 ABG Base Excess (Actual) VBG pH VBG pCO2 VBG pO2 VBG HCO3 VBG O2 Saturation VBG Base Excess Sodium Potassium Chloride Carbon Dioxide Anion Gap BUN Creatinine Estim Creat Clear Calc Estimated GFR POC Glucose 178 H 274 H 171 H Random Glucose Fasting Glucose Osmolality Lactic Acid Calcium Phosphorus Magnesium Total Bilirubin Direct Bilirubin AST ALT Alkaline Phosphatase Ammonia Troponin I High Sens B-Natriuretic Peptide Total Protein Albumin Procalcitonin TSH Random Cortisol Urine Color Urine Appearance Urine pH Ur Specific [place] Urine Protein Urine Glucose (UA) Urine Ketones Urine Blood Urine Nitrite Ur Leukocyte Esterase Urine RBC Urine WBC Ur Squamous Epith Cells Urine Bacteria Urine Mucus Urine Osmolality Ur Random Sodium Ur Random Potassium Ur Random Chloride Stool Occult Blood Stool Leukocytes, Qual Random Vancomycin Digoxin C. difficile Tox B Gene COVID-19 (JESSY) COVID-19 Clin Com Influenza Type A (PCR) Influenza Type B (PCR) RSV RNA Qual (PCR) SARS-CoV-2 RNA (RT-PCR) Blood Type Antibody Screen Crossmatch 12/17/21 12/18/21 12/18/21 20:01 00:14 03:58 WBC RBC Hgb Hct MCV MCH MCHC RDW Plt Count MPV Immature Gran % (Auto) Neut % (Auto) Lymph % (Auto) [place] % (Auto) Eos % (Auto) Baso % (Auto) Lymph # (Auto) [place] # (Auto) Eos # (Auto) Baso # (Auto) Abs Immat Gran (auto) Absolute Neuts (auto) Absolute Nucleated RBC Nucleated RBC % (auto) Neutrophils % (Manual) Band Neutrophils % Lymphocytes % (Manual) Monocytes % (Manual) Abs Neuts (Manual) Lymphocytes # (Manual) Monocytes # (Manual) Platelet Estimate Plt Morphology Comment RBC Morphology Acanthocytes (Spur) Smear Tech's Comments Smear Path Review PT INR APTT O2 Saturation ABG pH at Pt Temp ABG pH (Temp Correct) ABG pCO2 at Pt Temp ABG pCO2 (Temp Corrct ABG pO2 at Pt Temp ABG pO2 (Temp Correct ABG HCO3 ABG Base Excess (Actual) VBG pH 7.46 H VBG pCO2 47 VBG pO2 50 VBG HCO3 34 H VBG O2 Saturation 78.0 VBG Base Excess 9.6 Sodium 151 H Potassium 3.6 Chloride 114 H Carbon Dioxide 31 H Anion Gap 10 L BUN 8 L Creatinine 0.65 Estim Creat Clear Calc 127.3 Estimated GFR > 60 POC Glucose 197 H Random Glucose 168 H Fasting Glucose Osmolality Lactic Acid Calcium 8.3 L Phosphorus Magnesium Total Bilirubin Direct Bilirubin AST ALT Alkaline Phosphatase Ammonia Troponin I High Sens B-Natriuretic Peptide Total Protein Albumin Procalcitonin TSH Random Cortisol Urine Color Urine Appearance Urine pH Ur Specific [place] Urine Protein Urine Glucose (UA) Urine Ketones Urine Blood Urine Nitrite Ur Leukocyte Esterase Urine RBC Urine WBC Ur Squamous Epith Cells Urine Bacteria Urine Mucus Urine Osmolality Ur Random Sodium Ur Random Potassium Ur Random Chloride Stool Occult Blood Stool Leukocytes, Qual Random Vancomycin Digoxin C. difficile Tox B Gene COVID-19 (JESSY) COVID-19 Clin Com Influenza Type A (PCR) Influenza Type B (PCR) RSV RNA Qual (PCR) SARS-CoV-2 RNA (RT-PCR) Blood Type Antibody Screen Crossmatch 12/18/21 12/18/21 12/18/21 04:44 04:46 05:58 WBC 10.4 RBC 4.42 Hgb 9.4 L Hct 33.3 L MCV 75.3 L MCH 21.3 L MCHC 28.2 L RDW 29.4 H Plt Count 593 H MPV 9.4 Immature Gran % (Auto) 0.6 H Neut % (Auto) 80.7 H Lymph % (Auto) 11.0 L [place] % (Auto) 5.4 Eos % (Auto) 1.7 Baso % (Auto) 0.6 Lymph # (Auto) 1.1 L [place] # (Auto) 0.6 Eos # (Auto) 0.2 Baso # (Auto) 0.1 Abs Immat Gran (auto) 0.06 H Absolute Neuts (auto) 8.4 H Absolute Nucleated RBC 0.000 Nucleated RBC % (auto) 0.0 Neutrophils % (Manual) Band Neutrophils % Lymphocytes % (Manual) Monocytes % (Manual) Abs Neuts (Manual) Lymphocytes # (Manual) Monocytes # (Manual) Platelet Estimate Plt Morphology Comment RBC Morphology Acanthocytes (Spur) Smear Tech's Comments Smear Path Review PT INR APTT O2 Saturation ABG pH at Pt Temp ABG pH (Temp Correct) ABG pCO2 at Pt Temp ABG pCO2 (Temp Corrct ABG pO2 at Pt Temp ABG pO2 (Temp Correct ABG HCO3 ABG Base Excess (Actual) VBG pH 7.43 VBG pCO2 55 VBG pO2 53 VBG HCO3 37 H VBG O2 Saturation 79.0 VBG Base Excess 11.4 Sodium 152 H Potassium 3.6 Chloride 111 H Carbon Dioxide 33 H Anion Gap 12 BUN 9 Creatinine 0.69 Estim Creat Clear Calc 119.9 Estimated GFR > 60 POC Glucose Random Glucose 198 H Fasting Glucose Osmolality Lactic Acid Calcium 8.2 L Phosphorus Magnesium Total Bilirubin Direct Bilirubin AST ALT Alkaline Phosphatase Ammonia Troponin I High Sens B-Natriuretic Peptide Total Protein Albumin Procalcitonin TSH Random Cortisol Urine Color Urine Appearance Urine pH Ur Specific [place] Urine Protein Urine Glucose (UA) Urine Ketones Urine Blood Urine Nitrite Ur Leukocyte Esterase Urine RBC Urine WBC Ur Squamous Epith Cells Urine Bacteria Urine Mucus Urine Osmolality Ur Random Sodium Ur Random Potassium Ur Random Chloride Stool Occult Blood Stool Leukocytes, Qual Random Vancomycin Digoxin C. difficile Tox B Gene COVID-19 (JESSY) COVID-19 Clin Com Influenza Type A (PCR) Influenza Type B (PCR) RSV RNA Qual (PCR) SARS-CoV-2 RNA (RT-PCR) Blood Type Antibody Screen Crossmatch 12/18/21 12/18/21 12/18/21 05:58 05:58 05:58 WBC RBC Hgb Hct MCV MCH MCHC RDW Plt Count MPV Immature Gran % (Auto) Neut % (Auto) Lymph % (Auto) [place] % (Auto) Eos % (Auto) Baso % (Auto) Lymph # (Auto) [place] # (Auto) Eos # (Auto) Baso # (Auto) Abs Immat Gran (auto) Absolute Neuts (auto) Absolute Nucleated RBC Nucleated RBC % (auto) Neutrophils % (Manual) Band Neutrophils % Lymphocytes % (Manual) Monocytes % (Manual) Abs Neuts (Manual) Lymphocytes # (Manual) Monocytes # (Manual) Platelet Estimate Plt Morphology Comment RBC Morphology Acanthocytes (Spur) Smear Tech's Comments Smear Path Review PT 31.6 H INR 2.7 H APTT 46.4 H O2 Saturation ABG pH at Pt Temp ABG pH (Temp Correct) ABG pCO2 at Pt Temp ABG pCO2 (Temp Corrct ABG pO2 at Pt Temp ABG pO2 (Temp Correct ABG HCO3 ABG Base Excess (Actual) VBG pH VBG pCO2 VBG pO2 VBG HCO3 VBG O2 Saturation VBG Base Excess Sodium 151 H Potassium 3.6 Chloride 111 H Carbon Dioxide 33 H Anion Gap 11 L BUN 9 Creatinine 0.69 Estim Creat Clear Calc 119.6 Estimated GFR > 60 POC Glucose Random Glucose 187 H Fasting Glucose Osmolality Lactic Acid Calcium 8.1 L Phosphorus 3.0 Magnesium 2.1 Total Bilirubin 0.7 Direct Bilirubin 0.4 AST 21 ALT 27 Alkaline Phosphatase 65 Ammonia Troponin I High Sens B-Natriuretic Peptide 185 H Total Protein 5.5 L Albumin 2.8 L Procalcitonin TSH Random Cortisol Urine Color Urine Appearance Urine pH Ur Specific [place] Urine Protein Urine Glucose (UA) Urine Ketones Urine Blood Urine Nitrite Ur Leukocyte Esterase Urine RBC Urine WBC Ur Squamous Epith Cells Urine Bacteria Urine Mucus Urine Osmolality Ur Random Sodium Ur Random Potassium Ur Random Chloride Stool Occult Blood Stool Leukocytes, Qual Random Vancomycin Digoxin C. difficile Tox B Gene COVID-19 (JESSY) COVID-19 Clin Com Influenza Type A (PCR) Influenza Type B (PCR) RSV RNA Qual (PCR) SARS-CoV-2 RNA (RT-PCR) Blood Type Antibody Screen Crossmatch 12/18/21 12/18/21 12/18/21 06:02 07:17 09:23 WBC RBC Hgb Hct MCV MCH MCHC RDW Plt Count MPV Immature Gran % (Auto) Neut % (Auto) Lymph % (Auto) [place] % (Auto) Eos % (Auto) Baso % (Auto) Lymph # (Auto) [place] # (Auto) Eos # (Auto) Baso # (Auto) Abs Immat Gran (auto) Absolute Neuts (auto) Absolute Nucleated RBC Nucleated RBC % (auto) Neutrophils % (Manual) Band Neutrophils % Lymphocytes % (Manual) Monocytes % (Manual) Abs Neuts (Manual) Lymphocytes # (Manual) Monocytes # (Manual) Platelet Estimate Plt Morphology Comment RBC Morphology Acanthocytes (Spur) Smear Tech's Comments Smear Path Review PT INR APTT O2 Saturation 90.0 ABG pH at Pt Temp 7.49 H ABG pH (Temp Correct) ABG pCO2 at Pt Temp 48 H ABG pCO2 (Temp Corrct ABG pO2 at Pt Temp 63 L ABG pO2 (Temp Correct ABG HCO3 37 H ABG Base Excess (Actual) 13.1 VBG pH 7.45 H VBG pCO2 54 VBG pO2 71 VBG HCO3 38 H VBG O2 Saturation 93.0 VBG Base Excess 12.2 Sodium Potassium Chloride Carbon Dioxide Anion Gap BUN Creatinine Estim Creat Clear Calc Estimated GFR POC Glucose 162 H Random Glucose Fasting Glucose Osmolality Lactic Acid Calcium Phosphorus Magnesium Total Bilirubin Direct Bilirubin AST ALT Alkaline Phosphatase Ammonia Troponin I High Sens B-Natriuretic Peptide Total Protein Albumin Procalcitonin TSH Random Cortisol Urine Color Urine Appearance Urine pH Ur Specific [place] Urine Protein Urine Glucose (UA) Urine Ketones Urine Blood Urine Nitrite Ur Leukocyte Esterase Urine RBC Urine WBC Ur Squamous Epith Cells Urine Bacteria Urine Mucus Urine Osmolality Ur Random Sodium Ur Random Potassium Ur Random Chloride Stool Occult Blood Stool Leukocytes, Qual Random Vancomycin Digoxin C. difficile Tox B Gene COVID-19 (JESSY) COVID-19 Clin Com Influenza Type A (PCR) Influenza Type B (PCR) RSV RNA Qual (PCR) SARS-CoV-2 RNA (RT-PCR) Blood Type Antibody Screen Crossmatch 12/18/21 12/18/21 12/18/21 10:57 16:25 20:16 WBC RBC Hgb Hct MCV MCH MCHC RDW Plt Count MPV Immature Gran % (Auto) Neut % (Auto) Lymph % (Auto) [place] % (Auto) Eos % (Auto) Baso % (Auto) Lymph # (Auto) [place] # (Auto) Eos # (Auto) Baso # (Auto) Abs Immat Gran (auto) Absolute Neuts (auto) Absolute Nucleated RBC Nucleated RBC % (auto) Neutrophils % (Manual) Band Neutrophils % Lymphocytes % (Manual) Monocytes % (Manual) Abs Neuts (Manual) Lymphocytes # (Manual) Monocytes # (Manual) Platelet Estimate Plt Morphology Comment RBC Morphology Acanthocytes (Spur) Smear Tech's Comments Smear Path Review PT INR APTT O2 Saturation ABG pH at Pt Temp ABG pH (Temp Correct) ABG pCO2 at Pt Temp ABG pCO2 (Temp Corrct ABG pO2 at Pt Temp ABG pO2 (Temp Correct ABG HCO3 ABG Base Excess (Actual) VBG pH VBG pCO2 VBG pO2 VBG HCO3 VBG O2 Saturation VBG Base Excess Sodium Potassium Chloride Carbon Dioxide Anion Gap BUN Creatinine Estim Creat Clear Calc Estimated GFR POC Glucose 217 H 208 H 153 H Random Glucose Fasting Glucose Osmolality Lactic Acid Calcium Phosphorus Magnesium Total Bilirubin Direct Bilirubin AST ALT Alkaline Phosphatase Ammonia Troponin I High Sens B-Natriuretic Peptide Total Protein Albumin Procalcitonin TSH Random Cortisol Urine Color Urine Appearance Urine pH Ur Specific [place] Urine Protein Urine Glucose (UA) Urine Ketones Urine Blood Urine Nitrite Ur Leukocyte Esterase Urine RBC Urine WBC Ur Squamous Epith Cells Urine Bacteria Urine Mucus Urine Osmolality Ur Random Sodium Ur Random Potassium Ur Random Chloride Stool Occult Blood Stool Leukocytes, Qual Random Vancomycin Digoxin C. difficile Tox B Gene COVID-19 (JESSY) COVID-19 Clin Com Influenza Type A (PCR) Influenza Type B (PCR) RSV RNA Qual (PCR) SARS-CoV-2 RNA (RT-PCR) Blood Type Antibody Screen Crossmatch 12/19/21 12/19/21 12/19/21 05:53 05:53 05:53 WBC Cancelled 11.0 H RBC Cancelled 4.26 Hgb Cancelled 9.0 L Hct Cancelled 32.4 L MCV Cancelled 76.1 L MCH Cancelled 21.1 L MCHC Cancelled 27.8 L RDW Cancelled 29.3 H Plt Count Cancelled 488 H MPV Cancelled 9.4 Immature Gran % (Auto) 0.6 H Neut % (Auto) 79.9 H Lymph % (Auto) 11.5 L [place] % (Auto) 4.4 Eos % (Auto) 3.1 Baso % (Auto) 0.5 Lymph # (Auto) 1.3 [place] # (Auto) 0.5 Eos # (Auto) 0.3 Baso # (Auto) 0.1 Abs Immat Gran (auto) 0.07 H Absolute Neuts (auto) 8.8 H Absolute Nucleated RBC Cancelled 0.000 Nucleated RBC % (auto) Cancelled 0.0 Neutrophils % (Manual) Band Neutrophils % Lymphocytes % (Manual) Monocytes % (Manual) Abs Neuts (Manual) Lymphocytes # (Manual) Monocytes # (Manual) Platelet Estimate Plt Morphology Comment RBC Morphology Acanthocytes (Spur) Smear Tech's Comments Smear Path Review PT INR APTT O2 Saturation ABG pH at Pt Temp ABG pH (Temp Correct) ABG pCO2 at Pt Temp ABG pCO2 (Temp Corrct ABG pO2 at Pt Temp ABG pO2 (Temp Correct ABG HCO3 ABG Base Excess (Actual) VBG pH VBG pCO2 VBG pO2 VBG HCO3 VBG O2 Saturation VBG Base Excess Sodium Cancelled Potassium Cancelled Chloride Cancelled Carbon Dioxide Cancelled Anion Gap Cancelled BUN Cancelled Creatinine Cancelled Estim Creat Clear Calc Cancelled Estimated GFR Cancelled POC Glucose Random Glucose Cancelled Fasting Glucose Osmolality Lactic Acid Calcium Cancelled Phosphorus Magnesium Total Bilirubin Direct Bilirubin AST ALT Alkaline Phosphatase Ammonia Troponin I High Sens B-Natriuretic Peptide Total Protein Albumin Procalcitonin TSH Random Cortisol Urine Color Urine Appearance Urine pH Ur Specific [place] Urine Protein Urine Glucose (UA) Urine Ketones Urine Blood Urine Nitrite Ur Leukocyte Esterase Urine RBC Urine WBC Ur Squamous Epith Cells Urine Bacteria Urine Mucus Urine Osmolality Ur Random Sodium Ur Random Potassium Ur Random Chloride Stool Occult Blood Stool Leukocytes, Qual Random Vancomycin Digoxin C. difficile Tox B Gene COVID-19 (JESSY) COVID-19 Clin Com Influenza Type A (PCR) Influenza Type B (PCR) RSV RNA Qual (PCR) SARS-CoV-2 RNA (RT-PCR) Blood Type Antibody Screen Crossmatch 12/19/21 12/19/21 12/19/21 05:53 05:53 05:53 WBC RBC Hgb Hct MCV MCH MCHC RDW Plt Count MPV Immature Gran % (Auto) Neut % (Auto) Lymph % (Auto) [place] % (Auto) Eos % (Auto) Baso % (Auto) Lymph # (Auto) [place] # (Auto) Eos # (Auto) Baso # (Auto) Abs Immat Gran (auto) Absolute Neuts (auto) Absolute Nucleated RBC Nucleated RBC % (auto) Neutrophils % (Manual) Band Neutrophils % Lymphocytes % (Manual) Monocytes % (Manual) Abs Neuts (Manual) Lymphocytes # (Manual) Monocytes # (Manual) Platelet Estimate Plt Morphology Comment RBC Morphology Acanthocytes (Spur) Smear Tech's Comments Smear Path Review PT 26.6 H INR 2.3 H APTT 41.3 H O2 Saturation ABG pH at Pt Temp ABG pH (Temp Correct) ABG pCO2 at Pt Temp ABG pCO2 (Temp Corrct ABG pO2 at Pt Temp ABG pO2 (Temp Correct ABG HCO3 ABG Base Excess (Actual) VBG pH VBG pCO2 VBG pO2 VBG HCO3 VBG O2 Saturation VBG Base Excess Sodium 147 H Potassium 3.4 Chloride 106 Carbon Dioxide 36 H Anion Gap 8 L BUN 9 Creatinine 0.61 Estim Creat Clear Calc 134.8 Estimated GFR > 60 POC Glucose Random Glucose 174 H Fasting Glucose Osmolality Lactic Acid Calcium 8.2 L Phosphorus 2.7 Magnesium 2.1 Total Bilirubin 0.7 Direct Bilirubin 0.4 AST 21 ALT 24 Alkaline Phosphatase 60 Ammonia Troponin I High Sens B-Natriuretic Peptide 112 H Total Protein 5.2 L Albumin 2.7 L Procalcitonin TSH Random Cortisol Urine Color Urine Appearance Urine pH Ur Specific [place] Urine Protein Urine Glucose (UA) Urine Ketones Urine Blood Urine Nitrite Ur Leukocyte Esterase Urine RBC Urine WBC Ur Squamous Epith Cells Urine Bacteria Urine Mucus Urine Osmolality Ur Random Sodium Ur Random Potassium Ur Random Chloride Stool Occult Blood Stool Leukocytes, Qual Random Vancomycin Digoxin C. difficile Tox B Gene COVID-19 (JESSY) COVID-19 Clin Com Influenza Type A (PCR) Influenza Type B (PCR) RSV RNA Qual (PCR) SARS-CoV-2 RNA (RT-PCR) Blood Type Antibody Screen Crossmatch 12/19/21 12/19/21 12/19/21 06:00 07:14 10:52 WBC RBC Hgb Hct MCV MCH MCHC RDW Plt Count MPV Immature Gran % (Auto) Neut % (Auto) Lymph % (Auto) [place] % (Auto) Eos % (Auto) Baso % (Auto) Lymph # (Auto) [place] # (Auto) Eos # (Auto) Baso # (Auto) Abs Immat Gran (auto) Absolute Neuts (auto) Absolute Nucleated RBC Nucleated RBC % (auto) Neutrophils % (Manual) Band Neutrophils % Lymphocytes % (Manual) Monocytes % (Manual) Abs Neuts (Manual) Lymphocytes # (Manual) Monocytes # (Manual) Platelet Estimate Plt Morphology Comment RBC Morphology Acanthocytes (Spur) Smear Tech's Comments Smear Path Review PT INR APTT O2 Saturation ABG pH at Pt Temp ABG pH (Temp Correct) ABG pCO2 at Pt Temp ABG pCO2 (Temp Corrct ABG pO2 at Pt Temp ABG pO2 (Temp Correct ABG HCO3 ABG Base Excess (Actual) VBG pH 7.45 H VBG pCO2 58 VBG pO2 62 VBG HCO3 41 H VBG O2 Saturation 88.0 VBG Base Excess 15.2 Sodium Potassium Chloride Carbon Dioxide Anion Gap BUN Creatinine Estim Creat Clear Calc Estimated GFR POC Glucose 154 H 163 H Random Glucose Fasting Glucose Osmolality Lactic Acid Calcium Phosphorus Magnesium Total Bilirubin Direct Bilirubin AST ALT Alkaline Phosphatase Ammonia Troponin I High Sens B-Natriuretic Peptide Total Protein Albumin Procalcitonin TSH Random Cortisol Urine Color Urine Appearance Urine pH Ur Specific [place] Urine Protein Urine Glucose (UA) Urine Ketones Urine Blood Urine Nitrite Ur Leukocyte Esterase Urine RBC Urine WBC Ur Squamous Epith Cells Urine Bacteria Urine Mucus Urine Osmolality Ur Random Sodium Ur Random Potassium Ur Random Chloride Stool Occult Blood Stool Leukocytes, Qual Random Vancomycin Digoxin C. difficile Tox B Gene COVID-19 (JESSY) COVID-19 Clin Com Influenza Type A (PCR) Influenza Type B (PCR) RSV RNA Qual (PCR) SARS-CoV-2 RNA (RT-PCR) Blood Type Antibody Screen Crossmatch 12/19/21 12/19/21 12/20/21 15:57 19:48 06:10 WBC 11.8 H RBC 4.54 Hgb 9.7 L Hct 34.1 L MCV 75.1 L MCH 21.4 L MCHC 28.4 L RDW 28.9 H Plt Count 317 D MPV 10.0 Immature Gran % (Auto) 0.5 H Neut % (Auto) 78.8 H Lymph % (Auto) 11.7 L [place] % (Auto) 4.9 Eos % (Auto) 3.6 Baso % (Auto) 0.5 Lymph # (Auto) 1.4 [place] # (Auto) 0.6 Eos # (Auto) 0.4 Baso # (Auto) 0.1 Abs Immat Gran (auto) 0.06 H Absolute Neuts (auto) 9.3 H Absolute Nucleated RBC 0.000 Nucleated RBC % (auto) 0.0 Neutrophils % (Manual) Band Neutrophils % Lymphocytes % (Manual) Monocytes % (Manual) Abs Neuts (Manual) Lymphocytes # (Manual) Monocytes # (Manual) Platelet Estimate Plt Morphology Comment RBC Morphology Acanthocytes (Spur) Smear Tech's Comments Smear Path Review PT INR APTT O2 Saturation ABG pH at Pt Temp ABG pH (Temp Correct) ABG pCO2 at Pt Temp ABG pCO2 (Temp Corrct ABG pO2 at Pt Temp ABG pO2 (Temp Correct ABG HCO3 ABG Base Excess (Actual) VBG pH VBG pCO2 VBG pO2 VBG HCO3 VBG O2 Saturation VBG Base Excess Sodium Potassium Chloride Carbon Dioxide Anion Gap BUN Creatinine Estim Creat Clear Calc Estimated GFR POC Glucose 146 H 243 H Random Glucose Fasting Glucose Osmolality Lactic Acid Calcium Phosphorus Magnesium Total Bilirubin Direct Bilirubin AST ALT Alkaline Phosphatase Ammonia Troponin I High Sens B-Natriuretic Peptide Total Protein Albumin Procalcitonin TSH Random Cortisol Urine Color Urine Appearance Urine pH Ur Specific [place] Urine Protein Urine Glucose (UA) Urine Ketones Urine Blood Urine Nitrite Ur Leukocyte Esterase Urine RBC Urine WBC Ur Squamous Epith Cells Urine Bacteria Urine Mucus Urine Osmolality Ur Random Sodium Ur Random Potassium Ur Random Chloride Stool Occult Blood Stool Leukocytes, Qual Random Vancomycin Digoxin C. difficile Tox B Gene COVID-19 (JESSY) COVID-19 Clin Com Influenza Type A (PCR) Influenza Type B (PCR) RSV RNA Qual (PCR) SARS-CoV-2 RNA (RT-PCR) Blood Type Antibody Screen Crossmatch 12/20/21 12/20/21 12/20/21 06:10 06:10 06:10 WBC RBC Hgb Hct MCV MCH MCHC RDW Plt Count MPV Immature Gran % (Auto) Neut % (Auto) Lymph % (Auto) [place] % (Auto) Eos % (Auto) Baso % (Auto) Lymph # (Auto) [place] # (Auto) Eos # (Auto) Baso # (Auto) Abs Immat Gran (auto) Absolute Neuts (auto) Absolute Nucleated RBC Nucleated RBC % (auto) Neutrophils % (Manual) Band Neutrophils % Lymphocytes % (Manual) Monocytes % (Manual) Abs Neuts (Manual) Lymphocytes # (Manual) Monocytes # (Manual) Platelet Estimate Plt Morphology Comment RBC Morphology Acanthocytes (Spur) Smear Tech's Comments Smear Path Review PT 24.9 H INR 2.2 H APTT 38.2 H O2 Saturation ABG pH at Pt Temp ABG pH (Temp Correct) ABG pCO2 at Pt Temp ABG pCO2 (Temp Corrct ABG pO2 at Pt Temp ABG pO2 (Temp Correct ABG HCO3 ABG Base Excess (Actual) VBG pH VBG pCO2 VBG pO2 VBG HCO3 VBG O2 Saturation VBG Base Excess Sodium 142 Potassium 3.3 Chloride 99 Carbon Dioxide 37 H Anion Gap 9 L BUN 10 Creatinine 0.55 Estim Creat Clear Calc 149.5 Estimated GFR > 60 POC Glucose Random Glucose 169 H Fasting Glucose Osmolality Lactic Acid Calcium 8.4 Phosphorus 2.9 Magnesium Total Bilirubin 0.8 Direct Bilirubin 0.4 AST 16 ALT 20 Alkaline Phosphatase 64 Ammonia Troponin I High Sens B-Natriuretic Peptide 124 H Total Protein 5.1 L Albumin 2.6 L Procalcitonin TSH Random Cortisol Urine Color Urine Appearance Urine pH Ur Specific [place] Urine Protein Urine Glucose (UA) Urine Ketones Urine Blood Urine Nitrite Ur Leukocyte Esterase Urine RBC Urine WBC Ur Squamous Epith Cells Urine Bacteria Urine Mucus Urine Osmolality Ur Random Sodium Ur Random Potassium Ur Random Chloride Stool Occult Blood Stool Leukocytes, Qual Random Vancomycin Digoxin C. difficile Tox B Gene COVID-19 (JESSY) COVID-19 Clin Com Influenza Type A (PCR) Influenza Type B (PCR) RSV RNA Qual (PCR) SARS-CoV-2 RNA (RT-PCR) Blood Type Antibody Screen Crossmatch 12/20/21 12/20/21 12/20/21 06:14 06:18 07:14 WBC RBC Hgb Hct MCV MCH MCHC RDW Plt Count MPV Immature Gran % (Auto) Neut % (Auto) Lymph % (Auto) [place] % (Auto) Eos % (Auto) Baso % (Auto) Lymph # (Auto) [place] # (Auto) Eos # (Auto) Baso # (Auto) Abs Immat Gran (auto) Absolute Neuts (auto) Absolute Nucleated RBC Nucleated RBC % (auto) Neutrophils % (Manual) Band Neutrophils % Lymphocytes % (Manual) Monocytes % (Manual) Abs Neuts (Manual) Lymphocytes # (Manual) Monocytes # (Manual) Platelet Estimate Plt Morphology Comment RBC Morphology Acanthocytes (Spur) Smear Tech's Comments Smear Path Review PT INR APTT O2 Saturation ABG pH at Pt Temp ABG pH (Temp Correct) ABG pCO2 at Pt Temp ABG pCO2 (Temp Corrct ABG pO2 at Pt Temp ABG pO2 (Temp Correct ABG HCO3 ABG Base Excess (Actual) VBG pH 7.49 H VBG pCO2 53 VBG pO2 56 VBG HCO3 41 H VBG O2 Saturation 85.0 VBG Base Excess 15.5 Sodium Potassium Chloride Carbon Dioxide Anion Gap BUN Creatinine Estim Creat Clear Calc Estimated GFR POC Glucose 172 H Random Glucose Fasting Glucose Osmolality Lactic Acid Calcium Phosphorus Magnesium Total Bilirubin Direct Bilirubin AST ALT Alkaline Phosphatase Ammonia Troponin I High Sens B-Natriuretic Peptide Total Protein Albumin Procalcitonin TSH Random Cortisol Urine Color Urine Appearance Urine pH Ur Specific [place] Urine Protein Urine Glucose (UA) Urine Ketones Urine Blood Urine Nitrite Ur Leukocyte Esterase Urine RBC Urine WBC Ur Squamous Epith Cells Urine Bacteria Urine Mucus Urine Osmolality Ur Random Sodium Ur Random Potassium Ur Random Chloride Stool Occult Blood Stool Leukocytes, Qual Random Vancomycin Digoxin 0.6 L C. difficile Tox B Gene COVID-19 (JESSY) COVID-19 Clin Com Influenza Type A (PCR) Influenza Type B (PCR) RSV RNA Qual (PCR) SARS-CoV-2 RNA (RT-PCR) Blood Type Antibody Screen Crossmatch 12/20/21 12/20/21 12/20/21 10:51 10:56 12:21 WBC RBC Hgb Hct MCV MCH MCHC RDW Plt Count MPV Immature Gran % (Auto) Neut % (Auto) Lymph % (Auto) [place] % (Auto) Eos % (Auto) Baso % (Auto) Lymph # (Auto) [place] # (Auto) Eos # (Auto) Baso # (Auto) Abs Immat Gran (auto) Absolute Neuts (auto) Absolute Nucleated RBC Nucleated RBC % (auto) Neutrophils % (Manual) Band Neutrophils % Lymphocytes % (Manual) Monocytes % (Manual) Abs Neuts (Manual) Lymphocytes # (Manual) Monocytes # (Manual) Platelet Estimate Plt Morphology Comment RBC Morphology Acanthocytes (Spur) Smear Tech's Comments Smear Path Review PT INR APTT O2 Saturation ABG pH at Pt Temp ABG pH (Temp Correct) ABG pCO2 at Pt Temp ABG pCO2 (Temp Corrct ABG pO2 at Pt Temp ABG pO2 (Temp Correct ABG HCO3 ABG Base Excess (Actual) VBG pH 7.47 H VBG pCO2 59 VBG pO2 47 VBG HCO3 44 H VBG O2 Saturation 75.0 VBG Base Excess 17.8 Sodium Potassium Chloride Carbon Dioxide Anion Gap BUN Creatinine Estim Creat Clear Calc Estimated GFR POC Glucose 152 H 152 H Random Glucose Fasting Glucose Osmolality Lactic Acid Calcium Phosphorus Magnesium Total Bilirubin Direct Bilirubin AST ALT Alkaline Phosphatase Ammonia Troponin I High Sens B-Natriuretic Peptide Total Protein Albumin Procalcitonin TSH Random Cortisol Urine Color Urine Appearance Urine pH Ur Specific [place] Urine Protein Urine Glucose (UA) Urine Ketones Urine Blood Urine Nitrite Ur Leukocyte Esterase Urine RBC Urine WBC Ur Squamous Epith Cells Urine Bacteria Urine Mucus Urine Osmolality Ur Random Sodium Ur Random Potassium Ur Random Chloride Stool Occult Blood Stool Leukocytes, Qual Random Vancomycin Digoxin C. difficile Tox B Gene COVID-19 (JESSY) COVID-19 Clin Com Influenza Type A (PCR) Influenza Type B (PCR) RSV RNA Qual (PCR) SARS-CoV-2 RNA (RT-PCR) Blood Type Antibody Screen Crossmatch 12/20/21 12/20/21 12/21/21 16:02 19:28 07:18 WBC RBC Hgb Hct MCV MCH MCHC RDW Plt Count MPV Immature Gran % (Auto) Neut % (Auto) Lymph % (Auto) [place] % (Auto) Eos % (Auto) Baso % (Auto) Lymph # (Auto) [place] # (Auto) Eos # (Auto) Baso # (Auto) Abs Immat Gran (auto) Absolute Neuts (auto) Absolute Nucleated RBC Nucleated RBC % (auto) Neutrophils % (Manual) Band Neutrophils % Lymphocytes % (Manual) Monocytes % (Manual) Abs Neuts (Manual) Lymphocytes # (Manual) Monocytes # (Manual) Platelet Estimate Plt Morphology Comment RBC Morphology Acanthocytes (Spur) Smear Tech's Comments Smear Path Review PT INR APTT O2 Saturation ABG pH at Pt Temp ABG pH (Temp Correct) ABG pCO2 at Pt Temp ABG pCO2 (Temp Corrct ABG pO2 at Pt Temp ABG pO2 (Temp Correct ABG HCO3 ABG Base Excess (Actual) VBG pH VBG pCO2 VBG pO2 VBG HCO3 VBG O2 Saturation VBG Base Excess Sodium Potassium Chloride Carbon Dioxide Anion Gap BUN Creatinine Estim Creat Clear Calc Estimated GFR POC Glucose 111 145 H 140 H Random Glucose Fasting Glucose Osmolality Lactic Acid Calcium Phosphorus Magnesium Total Bilirubin Direct Bilirubin AST ALT Alkaline Phosphatase Ammonia Troponin I High Sens B-Natriuretic Peptide Total Protein Albumin Procalcitonin TSH Random Cortisol Urine Color Urine Appearance Urine pH Ur Specific [place] Urine Protein Urine Glucose (UA) Urine Ketones Urine Blood Urine Nitrite Ur Leukocyte Esterase Urine RBC Urine WBC Ur Squamous Epith Cells Urine Bacteria Urine Mucus Urine Osmolality Ur Random Sodium Ur Random Potassium Ur Random Chloride Stool Occult Blood Stool Leukocytes, Qual Random Vancomycin Digoxin C. difficile Tox B Gene COVID-19 (JESSY) COVID-19 Clin Com Influenza Type A (PCR) Influenza Type B (PCR) RSV RNA Qual (PCR) SARS-CoV-2 RNA (RT-PCR) Blood Type Antibody Screen Crossmatch 12/21/21 12/21/21 12/21/21 10:52 16:11 16:54 WBC RBC Hgb Hct MCV MCH MCHC RDW Plt Count MPV Immature Gran % (Auto) Neut % (Auto) Lymph % (Auto) [place] % (Auto) Eos % (Auto) Baso % (Auto) Lymph # (Auto) [place] # (Auto) Eos # (Auto) Baso # (Auto) Abs Immat Gran (auto) Absolute Neuts (auto) Absolute Nucleated RBC Nucleated RBC % (auto) Neutrophils % (Manual) Band Neutrophils % Lymphocytes % (Manual) Monocytes % (Manual) Abs Neuts (Manual) Lymphocytes # (Manual) Monocytes # (Manual) Platelet Estimate Plt Morphology Comment RBC Morphology Acanthocytes (Spur) Smear Tech's Comments Smear Path Review PT INR APTT O2 Saturation ABG pH at Pt Temp ABG pH (Temp Correct) ABG pCO2 at Pt Temp ABG pCO2 (Temp Corrct ABG pO2 at Pt Temp ABG pO2 (Temp Correct ABG HCO3 ABG Base Excess (Actual) VBG pH VBG pCO2 VBG pO2 VBG HCO3 VBG O2 Saturation VBG Base Excess Sodium Potassium Chloride Carbon Dioxide Anion Gap BUN Creatinine Estim Creat Clear Calc Estimated GFR POC Glucose 277 H 153 H Random Glucose Fasting Glucose Osmolality Lactic Acid Calcium Phosphorus Magnesium Total Bilirubin Direct Bilirubin AST ALT Alkaline Phosphatase Ammonia Troponin I High Sens B-Natriuretic Peptide Total Protein Albumin Procalcitonin TSH Random Cortisol Urine Color Urine Appearance Urine pH Ur Specific [place] Urine Protein Urine Glucose (UA) Urine Ketones Urine Blood Urine Nitrite Ur Leukocyte Esterase Urine RBC Urine WBC Ur Squamous Epith Cells Urine Bacteria Urine Mucus Urine Osmolality Ur Random Sodium Ur Random Potassium Ur Random Chloride Stool Occult Blood Stool Leukocytes, Qual Random Vancomycin Digoxin C. difficile Tox B Gene COVID-19 (JESSY) Negative COVID-19 Clin Com See Note Influenza Type A (PCR) Influenza Type B (PCR) RSV RNA Qual (PCR) SARS-CoV-2 RNA (RT-PCR) Blood Type Antibody Screen Crossmatch 12/21/21 12/22/21 12/22/21 19:20 06:17 07:03 WBC RBC Hgb Hct MCV MCH MCHC RDW Plt Count MPV Immature Gran % (Auto) Neut % (Auto) Lymph % (Auto) [place] % (Auto) Eos % (Auto) Baso % (Auto) Lymph # (Auto) [place] # (Auto) Eos # (Auto) Baso # (Auto) Abs Immat Gran (auto) Absolute Neuts (auto) Absolute Nucleated RBC Nucleated RBC % (auto) Neutrophils % (Manual) Band Neutrophils % Lymphocytes % (Manual) Monocytes % (Manual) Abs Neuts (Manual) Lymphocytes # (Manual) Monocytes # (Manual) Platelet Estimate Plt Morphology Comment RBC Morphology Acanthocytes (Spur) Smear Tech's Comments Smear Path Review PT INR APTT O2 Saturation ABG pH at Pt Temp ABG pH (Temp Correct) ABG pCO2 at Pt Temp ABG pCO2 (Temp Corrct ABG pO2 at Pt Temp ABG pO2 (Temp Correct ABG HCO3 ABG Base Excess (Actual) VBG pH VBG pCO2 VBG pO2 VBG HCO3 VBG O2 Saturation VBG Base Excess Sodium 135 Potassium 4.1 D Chloride 95 L Carbon Dioxide 32 H Anion Gap 12 BUN 8 L Creatinine 0.53 Estim Creat Clear Calc 155.5 Estimated GFR > 60 POC Glucose 139 H 118 H Random Glucose Fasting Glucose Osmolality Lactic Acid Calcium Phosphorus Magnesium Total Bilirubin Direct Bilirubin AST ALT Alkaline Phosphatase Ammonia Troponin I High Sens B-Natriuretic Peptide Total Protein Albumin Procalcitonin TSH Random Cortisol Urine Color Urine Appearance Urine pH Ur Specific [place] Urine Protein Urine Glucose (UA) Urine Ketones Urine Blood Urine Nitrite Ur Leukocyte Esterase Urine RBC Urine WBC Ur Squamous Epith Cells Urine Bacteria Urine Mucus Urine Osmolality Ur Random Sodium Ur Random Potassium Ur Random Chloride Stool Occult Blood Stool Leukocytes, Qual Random Vancomycin Digoxin C. difficile Tox B Gene COVID-19 (JESSY) COVID-19 Clin Com Influenza Type A (PCR) Influenza Type B (PCR) RSV RNA Qual (PCR) SARS-CoV-2 RNA (RT-PCR) Blood Type Antibody Screen Crossmatch 12/22/21 12/22/21 12/22/21 10:59 15:50 19:45 WBC RBC Hgb Hct MCV MCH MCHC RDW Plt Count MPV Immature Gran % (Auto) Neut % (Auto) Lymph % (Auto) [place] % (Auto) Eos % (Auto) Baso % (Auto) Lymph # (Auto) [place] # (Auto) Eos # (Auto) Baso # (Auto) Abs Immat Gran (auto) Absolute Neuts (auto) Absolute Nucleated RBC Nucleated RBC % (auto) Neutrophils % (Manual) Band Neutrophils % Lymphocytes % (Manual) Monocytes % (Manual) Abs Neuts (Manual) Lymphocytes # (Manual) Monocytes # (Manual) Platelet Estimate Plt Morphology Comment RBC Morphology Acanthocytes (Spur) Smear Tech's Comments Smear Path Review PT INR APTT O2 Saturation ABG pH at Pt Temp ABG pH (Temp Correct) ABG pCO2 at Pt Temp ABG pCO2 (Temp Corrct ABG pO2 at Pt Temp ABG pO2 (Temp Correct ABG HCO3 ABG Base Excess (Actual) VBG pH 7.42 VBG pCO2 65 VBG pO2 61 VBG HCO3 43 H VBG O2 Saturation 87.0 VBG Base Excess 16.1 Sodium Potassium Chloride Carbon Dioxide Anion Gap BUN Creatinine Estim Creat Clear Calc Estimated GFR POC Glucose 133 H 136 H Random Glucose Fasting Glucose Osmolality Lactic Acid Calcium Phosphorus Magnesium Total Bilirubin Direct Bilirubin AST ALT Alkaline Phosphatase Ammonia Troponin I High Sens B-Natriuretic Peptide Total Protein Albumin Procalcitonin TSH Random Cortisol Urine Color Urine Appearance Urine pH Ur Specific [place] Urine Protein Urine Glucose (UA) Urine Ketones Urine Blood Urine Nitrite Ur Leukocyte Esterase Urine RBC Urine WBC Ur Squamous Epith Cells Urine Bacteria Urine Mucus Urine Osmolality Ur Random Sodium Ur Random Potassium Ur Random Chloride Stool Occult Blood Stool Leukocytes, Qual Random Vancomycin Digoxin C. difficile Tox B Gene COVID-19 (JESSY) COVID-19 Clin Com Influenza Type A (PCR) Influenza Type B (PCR) RSV RNA Qual (PCR) SARS-CoV-2 RNA (RT-PCR) Blood Type Antibody Screen Crossmatch 12/22/21 12/23/21 12/23/21 19:50 06:57 11:02 WBC RBC Hgb Hct MCV MCH MCHC RDW Plt Count MPV Immature Gran % (Auto) Neut % (Auto) Lymph % (Auto) [place] % (Auto) Eos % (Auto) Baso % (Auto) Lymph # (Auto) [place] # (Auto) Eos # (Auto) Baso # (Auto) Abs Immat Gran (auto) Absolute Neuts (auto) Absolute Nucleated RBC Nucleated RBC % (auto) Neutrophils % (Manual) Band Neutrophils % Lymphocytes % (Manual) Monocytes % (Manual) Abs Neuts (Manual) Lymphocytes # (Manual) Monocytes # (Manual) Platelet Estimate Plt Morphology Comment RBC Morphology Acanthocytes (Spur) Smear Tech's Comments Smear Path Review PT INR APTT O2 Saturation ABG pH at Pt Temp ABG pH (Temp Correct) ABG pCO2 at Pt Temp ABG pCO2 (Temp Corrct ABG pO2 at Pt Temp ABG pO2 (Temp Correct ABG HCO3 ABG Base Excess (Actual) VBG pH VBG pCO2 VBG pO2 VBG HCO3 VBG O2 Saturation VBG Base Excess Sodium Potassium Chloride Carbon Dioxide Anion Gap BUN Creatinine Estim Creat Clear Calc Estimated GFR POC Glucose 138 H 120 H 182 H Random Glucose Fasting Glucose Osmolality Lactic Acid Calcium Phosphorus Magnesium Total Bilirubin Direct Bilirubin AST ALT Alkaline Phosphatase Ammonia Troponin I High Sens B-Natriuretic Peptide Total Protein Albumin Procalcitonin TSH Random Cortisol Urine Color Urine Appearance Urine pH Ur Specific [place] Urine Protein Urine Glucose (UA) Urine Ketones Urine Blood Urine Nitrite Ur Leukocyte Esterase Urine RBC Urine WBC Ur Squamous Epith Cells Urine Bacteria Urine Mucus Urine Osmolality Ur Random Sodium Ur Random Potassium Ur Random Chloride Stool Occult Blood Stool Leukocytes, Qual Random Vancomycin Digoxin C. difficile Tox B Gene COVID-19 (JESSY) COVID-19 Clin Com Influenza Type A (PCR) Influenza Type B (PCR) RSV RNA Qual (PCR) SARS-CoV-2 RNA (RT-PCR) Blood Type Antibody Screen Crossmatch 12/23/21 12/23/21 12/24/21 16:13 19:40 07:14 WBC RBC Hgb Hct MCV MCH MCHC RDW Plt Count MPV Immature Gran % (Auto) Neut % (Auto) Lymph % (Auto) [place] % (Auto) Eos % (Auto) Baso % (Auto) Lymph # (Auto) [place] # (Auto) Eos # (Auto) Baso # (Auto) Abs Immat Gran (auto) Absolute Neuts (auto) Absolute Nucleated RBC Nucleated RBC % (auto) Neutrophils % (Manual) Band Neutrophils % Lymphocytes % (Manual) Monocytes % (Manual) Abs Neuts (Manual) Lymphocytes # (Manual) Monocytes # (Manual) Platelet Estimate Plt Morphology Comment RBC Morphology Acanthocytes (Spur) Smear Tech's Comments Smear Path Review PT INR APTT O2 Saturation ABG pH at Pt Temp ABG pH (Temp Correct) ABG pCO2 at Pt Temp ABG pCO2 (Temp Corrct ABG pO2 at Pt Temp ABG pO2 (Temp Correct ABG HCO3 ABG Base Excess (Actual) VBG pH VBG pCO2 VBG pO2 VBG HCO3 VBG O2 Saturation VBG Base Excess Sodium Potassium Chloride Carbon Dioxide Anion Gap BUN Creatinine Estim Creat Clear Calc Estimated GFR POC Glucose 117 H 119 H 124 H Random Glucose Fasting Glucose Osmolality Lactic Acid Calcium Phosphorus Magnesium Total Bilirubin Direct Bilirubin AST ALT Alkaline Phosphatase Ammonia Troponin I High Sens B-Natriuretic Peptide Total Protein Albumin Procalcitonin TSH Random Cortisol Urine Color Urine Appearance Urine pH Ur Specific [place] Urine Protein Urine Glucose (UA) Urine Ketones Urine Blood Urine Nitrite Ur Leukocyte Esterase Urine RBC Urine WBC Ur Squamous Epith Cells Urine Bacteria Urine Mucus Urine Osmolality Ur Random Sodium Ur Random Potassium Ur Random Chloride Stool Occult Blood Stool Leukocytes, Qual Random Vancomycin Digoxin C. difficile Tox B Gene COVID-19 (JESSY) COVID-19 Clin Com Influenza Type A (PCR) Influenza Type B (PCR) RSV RNA Qual (PCR) SARS-CoV-2 RNA (RT-PCR) Blood Type Antibody Screen Crossmatch 12/24/21 12/24/21 12/24/21 11:40 16:49 20:24 WBC RBC Hgb Hct MCV MCH MCHC RDW Plt Count MPV Immature Gran % (Auto) Neut % (Auto) Lymph % (Auto) [place] % (Auto) Eos % (Auto) Baso % (Auto) Lymph # (Auto) [place] # (Auto) Eos # (Auto) Baso # (Auto) Abs Immat Gran (auto) Absolute Neuts (auto) Absolute Nucleated RBC Nucleated RBC % (auto) Neutrophils % (Manual) Band Neutrophils % Lymphocytes % (Manual) Monocytes % (Manual) Abs Neuts (Manual) Lymphocytes # (Manual) Monocytes # (Manual) Platelet Estimate Plt Morphology Comment RBC Morphology Acanthocytes (Spur) Smear Tech's Comments Smear Path Review PT INR APTT O2 Saturation ABG pH at Pt Temp ABG pH (Temp Correct) ABG pCO2 at Pt Temp ABG pCO2 (Temp Corrct ABG pO2 at Pt Temp ABG pO2 (Temp Correct ABG HCO3 ABG Base Excess (Actual) VBG pH VBG pCO2 VBG pO2 VBG HCO3 VBG O2 Saturation VBG Base Excess Sodium Potassium Chloride Carbon Dioxide Anion Gap BUN Creatinine Estim Creat Clear Calc Estimated GFR POC Glucose 133 H 135 H 112 Random Glucose Fasting Glucose Osmolality Lactic Acid Calcium Phosphorus Magnesium Total Bilirubin Direct Bilirubin AST ALT Alkaline Phosphatase Ammonia Troponin I High Sens B-Natriuretic Peptide Total Protein Albumin Procalcitonin TSH Random Cortisol Urine Color Urine Appearance Urine pH Ur Specific [place] Urine Protein Urine Glucose (UA) Urine Ketones Urine Blood Urine Nitrite Ur Leukocyte Esterase Urine RBC Urine WBC Ur Squamous Epith Cells Urine Bacteria Urine Mucus Urine Osmolality Ur Random Sodium Ur Random Potassium Ur Random Chloride Stool Occult Blood Stool Leukocytes, Qual Random Vancomycin Digoxin C. difficile Tox B Gene COVID-19 (JESSY) COVID-19 Clin Com Influenza Type A (PCR) Influenza Type B (PCR) RSV RNA Qual (PCR) SARS-CoV-2 RNA (RT-PCR) Blood Type Antibody Screen Crossmatch 12/25/21 12/25/21 12/25/21 06:40 06:40 07:30 WBC 11.6 H RBC 4.05 L Hgb 9.0 L Hct 30.8 L MCV 76.0 L MCH 22.2 L MCHC 29.2 L RDW 28.9 H Plt Count 245 MPV 10.0 Immature Gran % (Auto) 2.0 H Neut % (Auto) 76.6 H Lymph % (Auto) 9.8 L [place] % (Auto) 9.6 Eos % (Auto) 1.6 Baso % (Auto) 0.4 Lymph # (Auto) 1.1 L [place] # (Auto) 1.1 Eos # (Auto) 0.2 Baso # (Auto) 0.1 Abs Immat Gran (auto) 0.23 H Absolute Neuts (auto) 8.9 H Absolute Nucleated RBC 0.020 H Nucleated RBC % (auto) 0.2 Neutrophils % (Manual) Band Neutrophils % Lymphocytes % (Manual) Monocytes % (Manual) Abs Neuts (Manual) Lymphocytes # (Manual) Monocytes # (Manual) Platelet Estimate Plt Morphology Comment RBC Morphology Acanthocytes (Spur) Smear Tech's Comments Smear Path Review PT INR APTT O2 Saturation ABG pH at Pt Temp ABG pH (Temp Correct) ABG pCO2 at Pt Temp ABG pCO2 (Temp Corrct ABG pO2 at Pt Temp ABG pO2 (Temp Correct ABG HCO3 ABG Base Excess (Actual) VBG pH VBG pCO2 VBG pO2 VBG HCO3 VBG O2 Saturation VBG Base Excess Sodium 137 Potassium 3.6 Chloride 95 L Carbon Dioxide 35 H Anion Gap 11 L BUN 6 L Creatinine 0.50 Estim Creat Clear Calc 164.6 Estimated GFR > 60 POC Glucose 133 H Random Glucose Fasting Glucose 129 H Osmolality Lactic Acid Calcium 8.0 L Phosphorus Magnesium Total Bilirubin 0.8 Direct Bilirubin AST 14 ALT 11 Alkaline Phosphatase 85 D Ammonia Troponin I High Sens B-Natriuretic Peptide Total Protein 5.2 L Albumin 2.6 L Procalcitonin TSH Random Cortisol Urine Color Urine Appearance Urine pH Ur Specific [place] Urine Protein Urine Glucose (UA) Urine Ketones Urine Blood Urine Nitrite Ur Leukocyte Esterase Urine RBC Urine WBC Ur Squamous Epith Cells Urine Bacteria Urine Mucus Urine Osmolality Ur Random Sodium Ur Random Potassium Ur Random Chloride Stool Occult Blood Stool Leukocytes, Qual Random Vancomycin Digoxin C. difficile Tox B Gene COVID-19 (JESSY) COVID-19 Clin Com Influenza Type A (PCR) Influenza Type B (PCR) RSV RNA Qual (PCR) SARS-CoV-2 RNA (RT-PCR) Blood Type Antibody Screen Crossmatch 12/25/21 12/25/21 12/25/21 12:47 15:55 19:57 WBC RBC Hgb Hct MCV MCH MCHC RDW Plt Count MPV Immature Gran % (Auto) Neut % (Auto) Lymph % (Auto) [place] % (Auto) Eos % (Auto) Baso % (Auto) Lymph # (Auto) [place] # (Auto) Eos # (Auto) Baso # (Auto) Abs Immat Gran (auto) Absolute Neuts (auto) Absolute Nucleated RBC Nucleated RBC % (auto) Neutrophils % (Manual) Band Neutrophils % Lymphocytes % (Manual) Monocytes % (Manual) Abs Neuts (Manual) Lymphocytes # (Manual) Monocytes # (Manual) Platelet Estimate Plt Morphology Comment RBC Morphology Acanthocytes (Spur) Smear Tech's Comments Smear Path Review PT INR APTT O2 Saturation ABG pH at Pt Temp ABG pH (Temp Correct) ABG pCO2 at Pt Temp ABG pCO2 (Temp Corrct ABG pO2 at Pt Temp ABG pO2 (Temp Correct ABG HCO3 ABG Base Excess (Actual) VBG pH VBG pCO2 VBG pO2 VBG HCO3 VBG O2 Saturation VBG Base Excess Sodium Potassium Chloride Carbon Dioxide Anion Gap BUN Creatinine Estim Creat Clear Calc Estimated GFR POC Glucose 119 H 144 H 151 H Random Glucose Fasting Glucose Osmolality Lactic Acid Calcium Phosphorus Magnesium Total Bilirubin Direct Bilirubin AST ALT Alkaline Phosphatase Ammonia Troponin I High Sens B-Natriuretic Peptide Total Protein Albumin Procalcitonin TSH Random Cortisol Urine Color Urine Appearance Urine pH Ur Specific [place] Urine Protein Urine Glucose (UA) Urine Ketones Urine Blood Urine Nitrite Ur Leukocyte Esterase Urine RBC Urine WBC Ur Squamous Epith Cells Urine Bacteria Urine Mucus Urine Osmolality Ur Random Sodium Ur Random Potassium Ur Random Chloride Stool Occult Blood Stool Leukocytes, Qual Random Vancomycin Digoxin C. difficile Tox B Gene COVID-19 (JESSY) COVID-19 Clin Com Influenza Type A (PCR) Influenza Type B (PCR) RSV RNA Qual (PCR) SARS-CoV-2 RNA (RT-PCR) Blood Type Antibody Screen Crossmatch 12/26/21 12/26/21 12/26/21 06:05 07:21 11:24 WBC RBC Hgb Hct MCV MCH MCHC RDW Plt Count MPV Immature Gran % (Auto) Neut % (Auto) Lymph % (Auto) [place] % (Auto) Eos % (Auto) Baso % (Auto) Lymph # (Auto) [place] # (Auto) Eos # (Auto) Baso # (Auto) Abs Immat Gran (auto) Absolute Neuts (auto) Absolute Nucleated RBC Nucleated RBC % (auto) Neutrophils % (Manual) Band Neutrophils % Lymphocytes % (Manual) Monocytes % (Manual) Abs Neuts (Manual) Lymphocytes # (Manual) Monocytes # (Manual) Platelet Estimate Plt Morphology Comment RBC Morphology Acanthocytes (Spur) Smear Tech's Comments Smear Path Review PT INR APTT O2 Saturation ABG pH at Pt Temp ABG pH (Temp Correct) ABG pCO2 at Pt Temp ABG pCO2 (Temp Corrct ABG pO2 at Pt Temp ABG pO2 (Temp Correct ABG HCO3 ABG Base Excess (Actual) VBG pH VBG pCO2 VBG pO2 VBG HCO3 VBG O2 Saturation VBG Base Excess Sodium 138 Potassium 3.9 Chloride 95 L Carbon Dioxide 36 H Anion Gap 11 L BUN 6 L Creatinine 0.51 Estim Creat Clear Calc 161.3 Estimated GFR > 60 POC Glucose 138 H 140 H Random Glucose Fasting Glucose 141 H Osmolality Lactic Acid Calcium 8.3 L Phosphorus Magnesium Total Bilirubin 0.9 Direct Bilirubin AST 12 ALT 9 Alkaline Phosphatase 86 Ammonia Troponin I High Sens B-Natriuretic Peptide Total Protein 5.3 L Albumin 2.7 L Procalcitonin TSH Random Cortisol Urine Color Urine Appearance Urine pH Ur Specific [place] Urine Protein Urine Glucose (UA) Urine Ketones Urine Blood Urine Nitrite Ur Leukocyte Esterase Urine RBC Urine WBC Ur Squamous Epith Cells Urine Bacteria Urine Mucus Urine Osmolality Ur Random Sodium Ur Random Potassium Ur Random Chloride Stool Occult Blood Stool Leukocytes, Qual Random Vancomycin Digoxin C. difficile Tox B Gene COVID-19 (JESSY) COVID-19 Clin Com Influenza Type A (PCR) Influenza Type B (PCR) RSV RNA Qual (PCR) SARS-CoV-2 RNA (RT-PCR) Blood Type Antibody Screen Crossmatch 12/26/21 12/26/21 12/27/21 15:43 19:58 06:51 WBC RBC Hgb Hct MCV MCH MCHC RDW Plt Count MPV Immature Gran % (Auto) Neut % (Auto) Lymph % (Auto) [place] % (Auto) Eos % (Auto) Baso % (Auto) Lymph # (Auto) [place] # (Auto) Eos # (Auto) Baso # (Auto) Abs Immat Gran (auto) Absolute Neuts (auto) Absolute Nucleated RBC Nucleated RBC % (auto) Neutrophils % (Manual) Band Neutrophils % Lymphocytes % (Manual) Monocytes % (Manual) Abs Neuts (Manual) Lymphocytes # (Manual) Monocytes # (Manual) Platelet Estimate Plt Morphology Comment RBC Morphology Acanthocytes (Spur) Smear Tech's Comments Smear Path Review PT INR APTT O2 Saturation ABG pH at Pt Temp ABG pH (Temp Correct) ABG pCO2 at Pt Temp ABG pCO2 (Temp Corrct ABG pO2 at Pt Temp ABG pO2 (Temp Correct ABG HCO3 ABG Base Excess (Actual) VBG pH VBG pCO2 VBG pO2 VBG HCO3 VBG O2 Saturation VBG Base Excess Sodium 142 Potassium 4.0 Chloride 97 Carbon Dioxide 37 H Anion Gap 12 BUN 7 L Creatinine 0.50 Estim Creat Clear Calc 164.6 Estimated GFR > 60 POC Glucose 139 H 116 H Random Glucose Fasting Glucose 123 H Osmolality Lactic Acid Calcium 8.5 Phosphorus Magnesium Total Bilirubin 0.8 Direct Bilirubin AST 12 ALT 9 Alkaline Phosphatase 86 Ammonia Troponin I High Sens B-Natriuretic Peptide Total Protein 5.4 L Albumin 2.6 L Procalcitonin TSH Random Cortisol Urine Color Urine Appearance Urine pH Ur Specific [place] Urine Protein Urine Glucose (UA) Urine Ketones Urine Blood Urine Nitrite Ur Leukocyte Esterase Urine RBC Urine WBC Ur Squamous Epith Cells Urine Bacteria Urine Mucus Urine Osmolality Ur Random Sodium Ur Random Potassium Ur Random Chloride Stool Occult Blood Stool Leukocytes, Qual Random Vancomycin Digoxin C. difficile Tox B Gene COVID-19 (JESSY) COVID-19 Clin Com Influenza Type A (PCR) Influenza Type B (PCR) RSV RNA Qual (PCR) SARS-CoV-2 RNA (RT-PCR) Blood Type Antibody Screen Crossmatch 12/27/21 12/27/21 12/27/21 06:51 07:05 11:10 WBC 9.8 RBC 3.99 L Hgb 8.9 L Hct 31.4 L MCV 78.7 L MCH 22.3 L MCHC 28.3 L RDW 28.9 H Plt Count 248 MPV 10.3 Immature Gran % (Auto) 2.6 H Neut % (Auto) 75.0 H Lymph % (Auto) 8.9 L [place] % (Auto) 10.2 Eos % (Auto) 2.9 Baso % (Auto) 0.4 Lymph # (Auto) 0.9 L [place] # (Auto) 1.0 Eos # (Auto) 0.3 Baso # (Auto) 0.0 Abs Immat Gran (auto) 0.25 H Absolute Neuts (auto) 7.3 Absolute Nucleated RBC 0.020 H Nucleated RBC % (auto) 0.2 Neutrophils % (Manual) Band Neutrophils % Lymphocytes % (Manual) Monocytes % (Manual) Abs Neuts (Manual) Lymphocytes # (Manual) Monocytes # (Manual) Platelet Estimate Plt Morphology Comment RBC Morphology Acanthocytes (Spur) Smear Tech's Comments Smear Path Review PT INR APTT O2 Saturation ABG pH at Pt Temp ABG pH (Temp Correct) ABG pCO2 at Pt Temp ABG pCO2 (Temp Corrct ABG pO2 at Pt Temp ABG pO2 (Temp Correct ABG HCO3 ABG Base Excess (Actual) VBG pH VBG pCO2 VBG pO2 VBG HCO3 VBG O2 Saturation VBG Base Excess Sodium Potassium Chloride Carbon Dioxide Anion Gap BUN Creatinine Estim Creat Clear Calc Estimated GFR POC Glucose 120 H 154 H Random Glucose Fasting Glucose Osmolality Lactic Acid Calcium Phosphorus Magnesium Total Bilirubin Direct Bilirubin AST ALT Alkaline Phosphatase Ammonia Troponin I High Sens B-Natriuretic Peptide Total Protein Albumin Procalcitonin TSH Random Cortisol Urine Color Urine Appearance Urine pH Ur Specific [place] Urine Protein Urine Glucose (UA) Urine Ketones Urine Blood Urine Nitrite Ur Leukocyte Esterase Urine RBC Urine WBC Ur Squamous Epith Cells Urine Bacteria Urine Mucus Urine Osmolality Ur Random Sodium Ur Random Potassium Ur Random Chloride Stool Occult Blood Stool Leukocytes, Qual Random Vancomycin Digoxin C. difficile Tox B Gene COVID-19 (JESSY) COVID-19 Clin Com Influenza Type A (PCR) Influenza Type B (PCR) RSV RNA Qual (PCR) SARS-CoV-2 RNA (RT-PCR) Blood Type Antibody Screen Crossmatch 12/27/21 12/27/21 12/28/21 15:58 20:00 06:09 WBC 12.4 H RBC 4.36 Hgb 9.7 L Hct 34.3 L MCV 78.7 L MCH 22.2 L MCHC 28.3 L RDW 28.9 H Plt Count 256 MPV 10.0 Immature Gran % (Auto) 2.4 H Neut % (Auto) 78.4 H Lymph % (Auto) 7.9 L [place] % (Auto) 9.0 Eos % (Auto) 1.9 Baso % (Auto) 0.4 Lymph # (Auto) 1.0 L [place] # (Auto) 1.1 Eos # (Auto) 0.2 Baso # (Auto) 0.1 Abs Immat Gran (auto) 0.30 H Absolute Neuts (auto) 9.7 H Absolute Nucleated RBC 0.020 H Nucleated RBC % (auto) 0.2 Neutrophils % (Manual) Band Neutrophils % Lymphocytes % (Manual) Monocytes % (Manual) Abs Neuts (Manual) Lymphocytes # (Manual) Monocytes # (Manual) Platelet Estimate Plt Morphology Comment RBC Morphology Acanthocytes (Spur) Smear Tech's Comments Smear Path Review PT INR APTT O2 Saturation ABG pH at Pt Temp ABG pH (Temp Correct) ABG pCO2 at Pt Temp ABG pCO2 (Temp Corrct ABG pO2 at Pt Temp ABG pO2 (Temp Correct ABG HCO3 ABG Base Excess (Actual) VBG pH VBG pCO2 VBG pO2 VBG HCO3 VBG O2 Saturation VBG Base Excess Sodium Potassium Chloride Carbon Dioxide Anion Gap BUN Creatinine Estim Creat Clear Calc Estimated GFR POC Glucose 214 H 131 H Random Glucose Fasting Glucose Osmolality Lactic Acid Calcium Phosphorus Magnesium Total Bilirubin Direct Bilirubin AST ALT Alkaline Phosphatase Ammonia Troponin I High Sens B-Natriuretic Peptide Total Protein Albumin Procalcitonin TSH Random Cortisol Urine Color Urine Appearance Urine pH Ur Specific [place] Urine Protein Urine Glucose (UA) Urine Ketones Urine Blood Urine Nitrite Ur Leukocyte Esterase Urine RBC Urine WBC Ur Squamous Epith Cells Urine Bacteria Urine Mucus Urine Osmolality Ur Random Sodium Ur Random Potassium Ur Random Chloride Stool Occult Blood Stool Leukocytes, Qual Random Vancomycin Digoxin C. difficile Tox B Gene COVID-19 (JESSY) COVID-19 Clin Com Influenza Type A (PCR) Influenza Type B (PCR) RSV RNA Qual (PCR) SARS-CoV-2 RNA (RT-PCR) Blood Type Antibody Screen Crossmatch 12/28/21 12/28/21 12/28/21 06:09 07:17 10:48 WBC RBC Hgb Hct MCV MCH MCHC RDW Plt Count MPV Immature Gran % (Auto) Neut % (Auto) Lymph % (Auto) [place] % (Auto) Eos % (Auto) Baso % (Auto) Lymph # (Auto) [place] # (Auto) Eos # (Auto) Baso # (Auto) Abs Immat Gran (auto) Absolute Neuts (auto) Absolute Nucleated RBC Nucleated RBC % (auto) Neutrophils % (Manual) Band Neutrophils % Lymphocytes % (Manual) Monocytes % (Manual) Abs Neuts (Manual) Lymphocytes # (Manual) Monocytes # (Manual) Platelet Estimate Plt Morphology Comment RBC Morphology Acanthocytes (Spur) Smear Tech's Comments Smear Path Review PT INR APTT O2 Saturation ABG pH at Pt Temp ABG pH (Temp Correct) ABG pCO2 at Pt Temp ABG pCO2 (Temp Corrct ABG pO2 at Pt Temp ABG pO2 (Temp Correct ABG HCO3 ABG Base Excess (Actual) VBG pH VBG pCO2 VBG pO2 VBG HCO3 VBG O2 Saturation VBG Base Excess Sodium 143 Potassium 4.2 Chloride 99 Carbon Dioxide 37 H Anion Gap 11 L BUN 11 D Creatinine 0.52 Estim Creat Clear Calc 158.3 Estimated GFR > 60 POC Glucose 134 H 119 H Random Glucose Fasting Glucose 129 H Osmolality Lactic Acid Calcium 8.2 L Phosphorus Magnesium Total Bilirubin 0.7 Direct Bilirubin AST 14 ALT 9 Alkaline Phosphatase 92 Ammonia Troponin I High Sens B-Natriuretic Peptide Total Protein 5.3 L Albumin 2.5 L Procalcitonin TSH Random Cortisol Urine Color Urine Appearance Urine pH Ur Specific [place] Urine Protein Urine Glucose (UA) Urine Ketones Urine Blood Urine Nitrite Ur Leukocyte Esterase Urine RBC Urine WBC Ur Squamous Epith Cells Urine Bacteria Urine Mucus Urine Osmolality Ur Random Sodium Ur Random Potassium Ur Random Chloride Stool Occult Blood Stool Leukocytes, Qual Random Vancomycin Digoxin C. difficile Tox B Gene COVID-19 (JESSY) COVID-19 Clin Com Influenza Type A (PCR) Influenza Type B (PCR) RSV RNA Qual (PCR) SARS-CoV-2 RNA (RT-PCR) Blood Type Antibody Screen Crossmatch 12/28/21 12/28/21 12/29/21 16:57 19:49 06:01 WBC 12.9 H RBC 3.72 L Hgb 8.4 L Hct 29.7 L MCV 79.8 L MCH 22.6 L MCHC 28.3 L RDW 28.5 H Plt Count 281 MPV 10.4 Immature Gran % (Auto) 1.9 H Neut % (Auto) 79.7 H Lymph % (Auto) 8.8 L [place] % (Auto) 7.4 Eos % (Auto) 1.9 Baso % (Auto) 0.3 Lymph # (Auto) 1.1 L [place] # (Auto) 1.0 Eos # (Auto) 0.3 Baso # (Auto) 0.0 Abs Immat Gran (auto) 0.24 H Absolute Neuts (auto) 10.2 H Absolute Nucleated RBC 0.000 Nucleated RBC % (auto) 0.0 Neutrophils % (Manual) Band Neutrophils % Lymphocytes % (Manual) Monocytes % (Manual) Abs Neuts (Manual) Lymphocytes # (Manual) Monocytes # (Manual) Platelet Estimate Plt Morphology Comment RBC Morphology Acanthocytes (Spur) Smear Tech's Comments Smear Path Review PT INR APTT O2 Saturation ABG pH at Pt Temp ABG pH (Temp Correct) ABG pCO2 at Pt Temp ABG pCO2 (Temp Corrct ABG pO2 at Pt Temp ABG pO2 (Temp Correct ABG HCO3 ABG Base Excess (Actual) VBG pH VBG pCO2 VBG pO2 VBG HCO3 VBG O2 Saturation VBG Base Excess Sodium Potassium Chloride Carbon Dioxide Anion Gap BUN Creatinine Estim Creat Clear Calc Estimated GFR POC Glucose 125 H 121 H Random Glucose Fasting Glucose Osmolality Lactic Acid Calcium Phosphorus Magnesium Total Bilirubin Direct Bilirubin AST ALT Alkaline Phosphatase Ammonia Troponin I High Sens B-Natriuretic Peptide Total Protein Albumin Procalcitonin TSH Random Cortisol Urine Color Urine Appearance Urine pH Ur Specific [place] Urine Protein Urine Glucose (UA) Urine Ketones Urine Blood Urine Nitrite Ur Leukocyte Esterase Urine RBC Urine WBC Ur Squamous Epith Cells Urine Bacteria Urine Mucus Urine Osmolality Ur Random Sodium Ur Random Potassium Ur Random Chloride Stool Occult Blood Stool Leukocytes, Qual Random Vancomycin Digoxin C. difficile Tox B Gene COVID-19 (JESSY) COVID-19 Clin Com Influenza Type A (PCR) Influenza Type B (PCR) RSV RNA Qual (PCR) SARS-CoV-2 RNA (RT-PCR) Blood Type Antibody Screen Crossmatch 12/29/21 12/29/21 12/29/21 06:01 06:55 10:53 WBC RBC Hgb Hct MCV MCH MCHC RDW Plt Count MPV Immature Gran % (Auto) Neut % (Auto) Lymph % (Auto) [place] % (Auto) Eos % (Auto) Baso % (Auto) Lymph # (Auto) [place] # (Auto) Eos # (Auto) Baso # (Auto) Abs Immat Gran (auto) Absolute Neuts (auto) Absolute Nucleated RBC Nucleated RBC % (auto) Neutrophils % (Manual) Band Neutrophils % Lymphocytes % (Manual) Monocytes % (Manual) Abs Neuts (Manual) Lymphocytes # (Manual) Monocytes # (Manual) Platelet Estimate Plt Morphology Comment RBC Morphology Acanthocytes (Spur) Smear Tech's Comments Smear Path Review PT INR APTT O2 Saturation ABG pH at Pt Temp ABG pH (Temp Correct) ABG pCO2 at Pt Temp ABG pCO2 (Temp Corrct ABG pO2 at Pt Temp ABG pO2 (Temp Correct ABG HCO3 ABG Base Excess (Actual) VBG pH VBG pCO2 VBG pO2 VBG HCO3 VBG O2 Saturation VBG Base Excess Sodium 144 Potassium 3.9 Chloride 100 Carbon Dioxide 38 H Anion Gap 10 L BUN 8 L Creatinine 0.45 L Estim Creat Clear Calc 182.9 Estimated GFR > 60 POC Glucose 115 163 H Random Glucose Fasting Glucose 122 H Osmolality Lactic Acid Calcium 7.9 L Phosphorus Magnesium Total Bilirubin 0.4 Direct Bilirubin AST 17 ALT 10 Alkaline Phosphatase 77 Ammonia Troponin I High Sens B-Natriuretic Peptide Total Protein 5.0 L Albumin 2.3 L Procalcitonin TSH Random Cortisol Urine Color Urine Appearance Urine pH Ur Specific [place] Urine Protein Urine Glucose (UA) Urine Ketones Urine Blood Urine Nitrite Ur Leukocyte Esterase Urine RBC Urine WBC Ur Squamous Epith Cells Urine Bacteria Urine Mucus Urine Osmolality Ur Random Sodium Ur Random Potassium Ur Random Chloride Stool Occult Blood Stool Leukocytes, Qual Random Vancomycin Digoxin C. difficile Tox B Gene COVID-19 (JESSY) COVID-19 Clin Com Influenza Type A (PCR) Influenza Type B (PCR) RSV RNA Qual (PCR) SARS-CoV-2 RNA (RT-PCR) Blood Type Antibody Screen Crossmatch 12/29/21 12/29/21 12/29/21 11:30 16:12 20:26 WBC RBC Hgb Hct MCV MCH MCHC RDW Plt Count MPV Immature Gran % (Auto) Neut % (Auto) Lymph % (Auto) [place] % (Auto) Eos % (Auto) Baso % (Auto) Lymph # (Auto) [place] # (Auto) Eos # (Auto) Baso # (Auto) Abs Immat Gran (auto) Absolute Neuts (auto) Absolute Nucleated RBC Nucleated RBC % (auto) Neutrophils % (Manual) Band Neutrophils % Lymphocytes % (Manual) Monocytes % (Manual) Abs Neuts (Manual) Lymphocytes # (Manual) Monocytes # (Manual) Platelet Estimate Plt Morphology Comment RBC Morphology Acanthocytes (Spur) Smear Tech's Comments Smear Path Review PT INR APTT O2 Saturation ABG pH at Pt Temp ABG pH (Temp Correct) ABG pCO2 at Pt Temp ABG pCO2 (Temp Corrct ABG pO2 at Pt Temp ABG pO2 (Temp Correct ABG HCO3 ABG Base Excess (Actual) VBG pH VBG pCO2 VBG pO2 VBG HCO3 VBG O2 Saturation VBG Base Excess Sodium Potassium Chloride Carbon Dioxide Anion Gap BUN Creatinine Estim Creat Clear Calc Estimated GFR POC Glucose 158 H 107 Random Glucose Fasting Glucose Osmolality Lactic Acid Calcium Phosphorus Magnesium Total Bilirubin Direct Bilirubin AST ALT Alkaline Phosphatase Ammonia Troponin I High Sens B-Natriuretic Peptide Total Protein Albumin Procalcitonin TSH Random Cortisol Urine Color Urine Appearance Urine pH Ur Specific [place] Urine Protein Urine Glucose (UA) Urine Ketones Urine Blood Urine Nitrite Ur Leukocyte Esterase Urine RBC Urine WBC Ur Squamous Epith Cells Urine Bacteria Urine Mucus Urine Osmolality Ur Random Sodium Ur Random Potassium Ur Random Chloride Stool Occult Blood Stool Leukocytes, Qual Random Vancomycin Digoxin C. difficile Tox B Gene COVID-19 (JESSY) Negative COVID-19 Clin Com See Note Influenza Type A (PCR) Influenza Type B (PCR) RSV RNA Qual (PCR) SARS-CoV-2 RNA (RT-PCR) Blood Type Antibody Screen Crossmatch 12/30/21 12/30/21 12/30/21 06:23 06:23 07:32 WBC 13.6 H RBC 3.92 L Hgb 8.8 L Hct 30.8 L MCV 78.6 L MCH 22.4 L MCHC 28.6 L RDW 28.8 H Plt Count 303 MPV 9.8 Immature Gran % (Auto) 4.3 H Neut % (Auto) 75.9 H Lymph % (Auto) 10.8 L [place] % (Auto) 6.6 Eos % (Auto) 1.8 Baso % (Auto) 0.6 Lymph # (Auto) 1.5 [place] # (Auto) 0.9 Eos # (Auto) 0.3 Baso # (Auto) 0.1 Abs Immat Gran (auto) 0.58 H Absolute Neuts (auto) 10.3 H Absolute Nucleated RBC 0.000 Nucleated RBC % (auto) 0.0 Neutrophils % (Manual) Band Neutrophils % Lymphocytes % (Manual) Monocytes % (Manual) Abs Neuts (Manual) Lymphocytes # (Manual) Monocytes # (Manual) Platelet Estimate Plt Morphology Comment RBC Morphology Acanthocytes (Spur) Smear Tech's Comments Smear Path Review PT INR APTT O2 Saturation ABG pH at Pt Temp ABG pH (Temp Correct) ABG pCO2 at Pt Temp ABG pCO2 (Temp Corrct ABG pO2 at Pt Temp ABG pO2 (Temp Correct ABG HCO3 ABG Base Excess (Actual) VBG pH VBG pCO2 VBG pO2 VBG HCO3 VBG O2 Saturation VBG Base Excess Sodium 144 Potassium 3.6 Chloride 100 Carbon Dioxide 39 H Anion Gap 9 L BUN 7 L Creatinine 0.46 L Estim Creat Clear Calc 178.9 Estimated GFR > 60 POC Glucose 106 Random Glucose Fasting Glucose 109 H Osmolality Lactic Acid Calcium 8.2 L Phosphorus Magnesium Total Bilirubin 0.6 Direct Bilirubin AST 12 ALT 6 Alkaline Phosphatase 83 Ammonia Troponin I High Sens B-Natriuretic Peptide Total Protein 5.3 L Albumin 2.6 L Procalcitonin TSH Random Cortisol Urine Color Urine Appearance Urine pH Ur Specific [place] Urine Protein Urine Glucose (UA) Urine Ketones Urine Blood Urine Nitrite Ur Leukocyte Esterase Urine RBC Urine WBC Ur Squamous Epith Cells Urine Bacteria Urine Mucus Urine Osmolality Ur Random Sodium Ur Random Potassium Ur Random Chloride Stool Occult Blood Stool Leukocytes, Qual Random Vancomycin Digoxin C. difficile Tox B Gene COVID-19 (JESSY) COVID-19 Clin Com Influenza Type A (PCR) Influenza Type B (PCR) RSV RNA Qual (PCR) SARS-CoV-2 RNA (RT-PCR) Blood Type Antibody Screen Crossmatch 12/30/21 12/30/21 12/30/21 11:02 16:56 20:17 WBC RBC Hgb Hct MCV MCH MCHC RDW Plt Count MPV Immature Gran % (Auto) Neut % (Auto) Lymph % (Auto) [place] % (Auto) Eos % (Auto) Baso % (Auto) Lymph # (Auto) [place] # (Auto) Eos # (Auto) Baso # (Auto) Abs Immat Gran (auto) Absolute Neuts (auto) Absolute Nucleated RBC Nucleated RBC % (auto) Neutrophils % (Manual) Band Neutrophils % Lymphocytes % (Manual) Monocytes % (Manual) Abs Neuts (Manual) Lymphocytes # (Manual) Monocytes # (Manual) Platelet Estimate Plt Morphology Comment RBC Morphology Acanthocytes (Spur) Smear Tech's Comments Smear Path Review PT INR APTT O2 Saturation ABG pH at Pt Temp ABG pH (Temp Correct) ABG pCO2 at Pt Temp ABG pCO2 (Temp Corrct ABG pO2 at Pt Temp ABG pO2 (Temp Correct ABG HCO3 ABG Base Excess (Actual) VBG pH VBG pCO2 VBG pO2 VBG HCO3 VBG O2 Saturation VBG Base Excess Sodium Potassium Chloride Carbon Dioxide Anion Gap BUN Creatinine Estim Creat Clear Calc Estimated GFR POC Glucose 118 H 207 H 102 Random Glucose Fasting Glucose Osmolality Lactic Acid Calcium Phosphorus Magnesium Total Bilirubin Direct Bilirubin AST ALT Alkaline Phosphatase Ammonia Troponin I High Sens B-Natriuretic Peptide Total Protein Albumin Procalcitonin TSH Random Cortisol Urine Color Urine Appearance Urine pH Ur Specific [place] Urine Protein Urine Glucose (UA) Urine Ketones Urine Blood Urine Nitrite Ur Leukocyte Esterase Urine RBC Urine WBC Ur Squamous Epith Cells Urine Bacteria Urine Mucus Urine Osmolality Ur Random Sodium Ur Random Potassium Ur Random Chloride Stool Occult Blood Stool Leukocytes, Qual Random Vancomycin Digoxin C. difficile Tox B Gene COVID-19 (JESSY) COVID-19 Clin Com Influenza Type A (PCR) Influenza Type B (PCR) RSV RNA Qual (PCR) SARS-CoV-2 RNA (RT-PCR) Blood Type Antibody Screen Crossmatch 12/31/21 12/31/21 12/31/21 07:18 09:32 09:32 WBC 13.9 H RBC 4.09 L Hgb 9.0 L Hct 31.7 L MCV 77.5 L MCH 22.0 L MCHC 28.4 L RDW 28.2 H Plt Count 350 MPV 9.5 Immature Gran % (Auto) Neut % (Auto) Lymph % (Auto) [place] % (Auto) Eos % (Auto) Baso % (Auto) Lymph # (Auto) [place] # (Auto) Eos # (Auto) Baso # (Auto) Abs Immat Gran (auto) Absolute Neuts (auto) Absolute Nucleated RBC 0.040 H Nucleated RBC % (auto) 0.3 H Neutrophils % (Manual) Band Neutrophils % Lymphocytes % (Manual) Monocytes % (Manual) Abs Neuts (Manual) Lymphocytes # (Manual) Monocytes # (Manual) Platelet Estimate Plt Morphology Comment RBC Morphology Acanthocytes (Spur) Smear Tech's Comments Smear Path Review PT INR APTT O2 Saturation ABG pH at Pt Temp ABG pH (Temp Correct) ABG pCO2 at Pt Temp ABG pCO2 (Temp Corrct ABG pO2 at Pt Temp ABG pO2 (Temp Correct ABG HCO3 ABG Base Excess (Actual) VBG pH VBG pCO2 VBG pO2 VBG HCO3 VBG O2 Saturation VBG Base Excess Sodium 141 Potassium 4.1 Chloride 99 Carbon Dioxide 35 H Anion Gap 11 L BUN 7 L Creatinine 0.54 Estim Creat Clear Calc 152.4 Estimated GFR > 60 POC Glucose 153 H Random Glucose 148 H Fasting Glucose Osmolality Lactic Acid Calcium 8.1 L Phosphorus Magnesium Total Bilirubin Direct Bilirubin AST ALT Alkaline Phosphatase Ammonia Troponin I High Sens B-Natriuretic Peptide Total Protein Albumin Procalcitonin TSH Random Cortisol Urine Color Urine Appearance Urine pH Ur Specific [place] Urine Protein Urine Glucose (UA) Urine Ketones Urine Blood Urine Nitrite Ur Leukocyte Esterase Urine RBC Urine WBC Ur Squamous Epith Cells Urine Bacteria Urine Mucus Urine Osmolality Ur Random Sodium Ur Random Potassium Ur Random Chloride Stool Occult Blood Stool Leukocytes, Qual Random Vancomycin Digoxin C. difficile Tox B Gene COVID-19 (JESSY) COVID-19 Clin Com Influenza Type A (PCR) Influenza Type B (PCR) RSV RNA Qual (PCR) SARS-CoV-2 RNA (RT-PCR) Blood Type Antibody Screen Crossmatch 12/31/21 12/31/21 09:32 09:45 WBC RBC Hgb Hct MCV MCH MCHC RDW Plt Count MPV Immature Gran % (Auto) Neut % (Auto) Lymph % (Auto) [place] % (Auto) Eos % (Auto) Baso % (Auto) Lymph # (Auto) [place] # (Auto) Eos # (Auto) Baso # (Auto) Abs Immat Gran (auto) Absolute Neuts (auto) Absolute Nucleated RBC Nucleated RBC % (auto) Neutrophils % (Manual) Band Neutrophils % Lymphocytes % (Manual) Monocytes % (Manual) Abs Neuts (Manual) Lymphocytes # (Manual) Monocytes # (Manual) Platelet Estimate Plt Morphology Comment RBC Morphology Acanthocytes (Spur) Smear Tech's Comments Smear Path Review PT INR APTT O2 Saturation ABG pH at Pt Temp ABG pH (Temp Correct) ABG pCO2 at Pt Temp ABG pCO2 (Temp Corrct ABG pO2 at Pt Temp ABG pO2 (Temp Correct ABG HCO3 ABG Base Excess (Actual) VBG pH 7.42 VBG pCO2 63 VBG pO2 62 VBG HCO3 40 H VBG O2 Saturation 85.0 VBG Base Excess 14.0 Sodium Potassium Chloride Carbon Dioxide Anion Gap BUN Creatinine Estim Creat Clear Calc Estimated GFR POC Glucose Random Glucose Fasting Glucose Osmolality Lactic Acid Calcium Phosphorus Magnesium Total Bilirubin Direct Bilirubin AST ALT Alkaline Phosphatase Ammonia Troponin I High Sens B-Natriuretic Peptide 339 H Total Protein Albumin Procalcitonin TSH Random Cortisol Urine Color Urine Appearance Urine pH Ur Specific [place] Urine Protein Urine Glucose (UA) Urine Ketones Urine Blood Urine Nitrite Ur Leukocyte Esterase Urine RBC Urine WBC Ur Squamous Epith Cells Urine Bacteria Urine Mucus Urine Osmolality Ur Random Sodium Ur Random Potassium Ur Random Chloride Stool Occult Blood Stool Leukocytes, Qual Random Vancomycin Digoxin C. difficile Tox B Gene COVID-19 (JESSY) COVID-19 Clin Com Influenza Type A (PCR) Influenza Type B (PCR) RSV RNA Qual (PCR) SARS-CoV-2 RNA (RT-PCR) Blood Type Antibody Screen Crossmatch Airway Mallampati Class: III TM Dist: >3cm Neck ROM: Full Heart: irreg Lungs: diminished Assessment and Plan Assessment Anesthesia Assessment: Anesthesia Plan Discussed (Spoke to emergency room clinician, aware high risk) and Chart Reviewed Final Anesthetic Review Family History of Problems with Anesthesia: Unobtainable History of Problems with Anesthesia: No (Patient denies prior anesthesia ) NPO: Yes ASA Class: III Final Preanesthetic Review: No Changes in Pt Med Stat, Meds/Allgs Chart Reviewed and Consent Obtained/Reviewed Patient Risk: Intermediate Procedure Risk: Intermediate Anesthetic Plan Anesthetic Plan: MAC: Disposition: Standard PACU
--- NOTE | 2021-12-31 10:43 | MHC.SLORD ---
Speech Language Pathology Order Status: Pt is NPO for procedure. When eating only taking 2-3 bites
[2021-12-31] MEDS: Lactated Ringers 1,000 ML 50 ML IVCONT (11:14)
--- NOTE | 2021-12-31 12:26 | HO.PM.IMPN ---
Subjective Subjective Date of Service: 12/31/21 Interval History: Pulled off her BiPAP and now on O2 via NC, 10L. Pain from large coccygeal wound. Review of Systems Review of Systems: Yes all other systems are reviewed and are negative Physical Exam Vital Signs: Vital Signs: Last Vital Signs Temp 98.0 F 12/31/21 07:15 Pulse 98 12/31/21 07:44 Resp 19 12/31/21 07:15 BP 150/83 H 12/31/21 07:44 Pulse Ox 98 12/31/21 07:15 Oxygen Flow Rate 3 12/30/21 13:00 BMI result Body Mass Index 54.5 Gen: comfortable on BiPAP HEENT: sclera anicteric, moist mucus membranes Neck: supple Lungs: diminished bilaterally Heart: irregular, no murmurs Abd: soft, non-tender, non-distended, obese with pannus, rectal tube in place Ext: no edema Skin: warm/well-perfused, very large stage 4 sacral decubitus ulcer at least 15cm in diameter with some superior tunneling and necrosis Neuro: alert Psych: impaired insight Objective Data Active Medications Acetaminophen (Acetaminophen 325 Mg Tablet) 650 mg PO Q6H PRN PRN Reason: Fever Last Admin: 12/30/21 11:57 Dose: 650 mg Documented by: CHRISTIANO Amlodipine Besylate (Amlodipine Besylate 5 Mg Tablet) 5 mg PO DAILY [facility]; Protocol Apixaban (Apixaban 5 Mg Tablet) 5 mg PO BID [facility] Last Admin: 12/31/21 07:54 Dose: Not Given Documented by: DONTRELL Non-Admin Reason: NPO Atorvastatin Calcium (Atorvastatin Calcium 10 Mg Tablet) 10 mg PO DAILY [facility] Last Admin: 12/31/21 10:59 Dose: Not Given Documented by: DONTRELL Non-Admin Reason: NPO Digoxin (Digoxin 0.25 Mg Tablet) 0.25 mg PO DAILY [facility] Last Admin: 12/31/21 10:59 Dose: Not Given Documented by: DONTRELL Non-Admin Reason: NPO Fentanyl (Fentanyl Citrate/Pf 100 Mcg/2 Ml Vial) 25 mcg IVPUSH Q5M PRN; Protocol PRN Reason: Pain, Moderate (Pain Scale 4-6 Last Admin: 12/28/21 14:05 Dose: 25 mcg Documented by: TUAN Lactated Ringer's (Lr) 1,000 mls @ 50 mls/hr IVCONT .Q20H [facility] Last Admin: 12/31/21 11:14 Dose: 50 mls/hr Documented by: NATALIE Insulin Human Lispro (Insulin Lispro 100 Unit/Ml 3 Ml Vial) 0 unit SUBCUT QIDACHS [facility]; Protocol Last Admin: 12/31/21 07:54 Dose: Not Given Documented by: DONTRELL Non-Admin Reason: NPO Metoprolol Tartrate (Metoprolol Tartrate 25 Mg Tablet) 75 mg PO BID [facility]; Protocol Last Admin: 12/31/21 10:59 Dose: Not Given Documented by: DONTRELL Non-Admin Reason: NPO Morphine Sulfate (Morphine Sulfate 4 Mg/Ml Cartridge) 4 mg IVPUSH ONCE PRN; Protocol PRN Reason: Pain, Severe (Pain Scale 7-10) Last Admin: 12/27/21 09:38 Dose: 4 mg Documented by: AMANDA Morphine Sulfate (Morphine Sulfate 2 Mg/Ml Cartridge) 2 mg IVPUSH Q2H PRN; Protocol PRN Reason: severe pain Last Admin: 12/30/21 11:57 Dose: 2 mg Documented by: CHRISTIANO Multivitamins/Vitamin C (Multivitamin Tablet) 1 tab PO DAILY [facility] Last Admin: 12/31/21 10:59 Dose: Not Given Documented by: DONTRELL Non-Admin Reason: NPO Nystatin (Nystatin Powder 15 Gm Bottle) 1 appl TOPICAL TID [facility]; Protocol Last Admin: 12/30/21 21:46 Dose: 1 appl Documented by: SYL Ondansetron HCl (Ondansetron Hcl 4 Mg/2 Ml Vial) 4 mg IVPUSH Q8H PRN PRN Reason: Nausea Last Admin: 12/26/21 13:26 Dose: 4 mg Documented by: CHRISTIANO Oxycodone HCl (Oxycodone Hcl Immed Release 5 Mg Tablet) 5 mg PO Q6H PRN PRN Reason: moderate pain Pharmacy Consult (Consult Rx Perform Med Rec) 1 each MISCELLANE ONCE PRN PRN Reason: Consult order Sodium Chloride (0.9 % Sodium Chloride Flush 3 Ml Syringe) 3 ml IVFLUSH QSHIFT [facility] Last Admin: 12/31/21 10:59 Dose: Not Given Documented by: DONTRELL Non-Admin Reason: IV Running Spironolactone (Spironolactone 25 Mg Tablet) 25 mg PO DAILY [facility]; Protocol Last Admin: 12/31/21 10:59 Dose: Not Given Documented by: DONTRELL Non-Admin Reason: NPO Labs CBC & Chem 7: 12/31/21 09:32 12/31/21 09:32 Labs: Laboratory Results - last 24 hr 12/30/21 12/30/21 12/31/21 16:56 20:17 07:18 MCV MCH MCHC RDW Plt Count MPV Absolute Nucleated RBC Nucleated RBC % (auto) VBG pH VBG pCO2 VBG pO2 VBG HCO3 VBG O2 Saturation VBG Base Excess Anion Gap Estim Creat Clear Calc Estimated GFR POC Glucose 207 H 102 153 H Random Glucose Calcium B-Natriuretic Peptide 12/31/21 12/31/21 12/31/21 09:32 09:32 09:32 MCV 77.5 L MCH 22.0 L MCHC 28.4 L RDW 28.2 H Plt Count 350 MPV 9.5 Absolute Nucleated RBC 0.040 H Nucleated RBC % (auto) 0.3 H VBG pH VBG pCO2 VBG pO2 VBG HCO3 VBG O2 Saturation VBG Base Excess Anion Gap 11 L Estim Creat Clear Calc 152.4 Estimated GFR > 60 POC Glucose Random Glucose 148 H Calcium 8.1 L B-Natriuretic Peptide 339 H 12/31/21 09:45 MCV MCH MCHC RDW Plt Count MPV Absolute Nucleated RBC Nucleated RBC % (auto) VBG pH 7.42 VBG pCO2 63 VBG pO2 62 VBG HCO3 40 H VBG O2 Saturation 85.0 VBG Base Excess 14.0 Anion Gap Estim Creat Clear Calc Estimated GFR POC Glucose Random Glucose Calcium B-Natriuretic Peptide Assessment and Plan (1) Acute respiratory failure: Status: Acute (2) Sacral decubitus ulcer: Status: Acute (3) Atrial fibrillation with RVR: Status: Acute Plan hospital d#37 66-year-old F sent in from [facility], PMHx of alcoholic cirrhosis, dementia, schizoaffective disorder admitted for acute?exacerbation of underlying congestive heart failure further complicated by AF/RVR, COPD exacerbation and development of angioedema requiring intubation for ventilatory support on 11/27 extubated 11/29. 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 extubated 11/29/2021, reintubated on 12/06 and extubated 12/13 - multifactorial etiology including COPD, heart failure, and PNA on background of likely CPAP/OHS - respiratory acidosis metabolically compensated - overnight oximetry for likely CPAP need to be arranged at [facility] but for will place on BiPAP at night # Stage IV coccygeal decubitus ulcer - POD#3 operative debridement, to OR for repeat operative debridement today - pt placed on pulsating air mattress on her side, with wedge behind back - VAC placement, arrange VAC services at [facility], will need [facility] - Wound RN following - diverting colostomy offered but pt's guardian wishes to avoid this for now # AF - rate-controlled on metoprolol + digoxin - anticoagulated with apixaban # HTN, uncontrolled - add amlodipine to metoprolol + spironolactone # HFpEF, [id number] - continue metoprolol + spironolactone # COPD exacerbation - nebulizer treatments; weaned off steroids # DM2 - correction-dose lispro # schizoaffective disorder - restart haloperidol # VTE ppx - apixaban Quality Stroke Does the patient have a stroke diagnosis?: No VTE Prior VTE?: No VTE Risk Level:: Medical - moderate - high VTE Device Contraindication: Treatment Not Indicated VTE Drug Contraindication: N/A - Med Ordered
--- NOTE | 2021-12-31 12:44 | P.OP_ITS ---
Operative Note Operative Note Date of Service: 12/31/21 Narrative: Preoperative diagnosis: Sacral decubitus ulcer Postoperative diagnosis: sacral decubitus ulcer Procedure: debridement of sacral decubitus ulcer, wound VAC placement Surgeon: Julio Jiménez MD Senior Product Marketing Manager: Wanda Bah PA-C Anesthesia: monitored anesthesia care plus local Indications for procedure: 66-year-old female with multiple medical problems presenting with a large sacral decubitus ulcer. Wound has necrotic base she requires further debridement and wound VAC placement. Operative findings: necrotic subcutaneous tissue at the wound base with good granulation tissue at the margins. Wounds debrided down to viable tissue. Undermining noted at the superior margin. This was debrided down to healthy bleeding tissue. Debrided surface measured approximately 12 by 8 cm (see photo below). Specimen: None Estimated blood loss: 20 mL Complications: none Procedure details: Patient was brought to the OR and administered light anesthesia. She was then placed in a left lateral decubitus position. A surgical time-out was called the consent confirmed. Patient's lower back was prepped with Betadine and draped in a sterile fashion. Patient received preoperative antibiotics. Local anesthesia consisting of 1% lidocaine was infiltrated circumferentially around the wound. The nonviable tissue at the base of the wound was excised using Metzenbaum scissors and a 15 blade scalpel. Dissection was continued down to viable, bleeding tissue. Margins of the wound were also debrided further using a curette. An area measuring approximately 12 by 8 cm was debrided of subcutaneous tissue and muscle. The wounds do not enter into the anus and no bone is exposed. Wounds were then thoroughly irrigated with saline solution and suctioned dry. Wounds were checked for hemostasis. A wound VAC was then placed. The surrounding skin was with benzoin solution areas of inflammation on the lateral left buttock wall were covered with a DuoDerm patch. Skin around the posterior anus was bridged using an appliance ring cut in half. A medium-size sponge was then fashioned to fill the deepest p art of the wound and the more superficial cannulated wounds were covered with a thin and black sponge. The op-site dressing was then used to cover the black sponge. The suction tubing was then placed in the mid wound in the midline. This was connected to suction and an excellent seal obtained. The wound VAC was set get a continuous 125 mmHg suction. The patient tolerated the procedure well. She was transferred to PACU in stable condition.
--- NOTE | 2021-12-31 13:04 | MHC.CLN ---
RE: CONSULT TPN RECOMMEND DAY ONE: [id number]% AT 35ML/HR TO PROVIDE 596KCALS, 42G PROTEIN DAY TWO: INCREASE FORMULA TO 55ML/HR TO PROVIDE 937KCALS, 66G PROTEIN CHECK TRIGS; REPLETE LYTES NEEDED DAY THREE: INCREASE FORMULA TO 75ML/HR TO PROVIDE 1278KCALS, 90G PROTEIN (1.5G/KG) FOR WOUND HEALING IF TRIGS WNL; ADD 20ML OF 20% LIPIDS TO PROVIDE AN ADDITIONAL 480KCALS(1758TOTAL KCALS; 30KCALS/KG BASED ON IBW) REPLETE LYTES NEEDED CONSULT RD VIA TIGER TEXT IF NEEDED
--- NOTE | 2021-12-31 13:06 | MHC.CM.PN ---
pt to have debridement and will be transferred to icu dc plan for pt to return to [facility] when medically stable
--- NOTE | 2021-12-31 14:25 | P.CONCC_ITS ---
History of Present Illness Data of Consult Service Date: 12/31/21 Requesting physician: Janet Garcia Primary Care Provider: Rony Hogan, DO HPI I was called to see Mrs. Reddy at the bedside in the PACU bec of tachypnea. Briefly, I know the patient well from her most recent stay in the ICU.? I saw her in the PACU after she arrived there from the operating room after d ebridement of her sacral decubitus.? On 4L NC, she was breathing with a RR of 33, with a Sat of 99%, and ETCO2 37. I reviewed her chart at some length.? Between her two stays in our ICU here, she developed a sacral decubitus which has gotten worse.? She was debrided by Dr. Jiménez on Dec 28, and from what I can tell, there was ongoing discussion about whether she should have a diverting colostomy.? Today she went to the operating room and had a 2nd debridement of the decubitus ulcer. I went back to see her in the PACU, and after the 30+ minutes in the PACU, she looked much better.? She was lying on her side, actually smiling, tachypneic, but with no other work of breathing.? I suspect that she is always tachypneic, having to do with her weight and her other medical conditions, including her lung disease. Currently, I would simply give her 2 mg of morphine.? No need for intensive care. On another level, I did speak with Dr. Hogan and with Dr. Leslie in multiple converstations (along with mult visits to the PACU to see the patient, and mult d/w Dr. Garcia).? From my review of her chart, it seems to me that Valentine is in the ending phase of her life, which is more or less rapidly coming to a close, simply because of her medical conditions, and having nothing to do with this sacral decubitus.? The development of this sacral decubitus is just part of that phase.? And whereas in the usual situation, a diverting colostomy would be necessary to heal this kind of sacral decubitus, in this case there is absolutely no evidence that a diverting colostomy would be life saving. Furthermore, it would likely be a very difficult operation bec of her habitus, and would likely incur substantial morbidity, which itself might very likely bring on her demise. I would have substantial reservations about doing the procedure, even if she were to be transferred to a tertiary surgical center to have it done. [facility] Past Medical History Medical History Alcoholic cirrhosis of liver Anemia Asthma CKD (chronic kidney disease) Crohn's disease Diastolic CHF with preserved left ventricular function, NYHA class 2 Fever of unknown origin Hyponatremia Hyponatremia Schizoaffective disorder Family History Family history: reviewed and not pertinent Surgical History Surgical History No pertinent past surgical history Social History Social History Household Members: None Housing: House Patient Tobacco Use Status: Current everyday Tobacco user service: No Meds Allergies Allergy/AdvReac Type Severity Reaction Status Date / Time lisinopril Allergy Severe Angioedema Verified 12/02/21 16:07 Sulfa (Sulfonamide Allergy Intermediate HIVES Verified 11/24/21 20:49 Antibiotics) Active Medications: Current Medications Acetaminophen (Acetaminophen 325 Mg Tablet) 650 mg PO Q6H PRN PRN Reason: Fever Last Admin: 12/30/21 11:57 Dose: 650 mg Documented by: Amlodipine Besylate (Amlodipine Besylate 5 Mg Tablet) 5 mg PO DAILY REPLACED BY [facility]; Protocol Apixaban (Apixaban 5 Mg Tablet) 5 mg PO BID REPLACED BY [facility] Last Admin: 12/31/21 07:54 Dose: Not Given Documented by: Atorvastatin Calcium (Atorvastatin Calcium 10 Mg Tablet) 10 mg PO DAILY REPLACED BY [facility] Last Admin: 12/31/21 10:59 Dose: Not Given Documented by: Digoxin (Digoxin 0.25 Mg Tablet) 0.25 mg PO DAILY REPLACED BY [facility] Last Admin: 12/31/21 10:59 Dose: Not Given Documented by: Fentanyl (Fentanyl Citrate/Pf 100 Mcg/2 Ml Vial) 25 mcg IVPUSH Q5M PRN; Protocol PRN Reason: Pain, Moderate (Pain Scale 4-6 Last Admin: 12/28/21 14:05 Dose: 25 mcg Documented by: Haloperidol (Haloperidol 5 Mg Tablet) 5 mg PO BID REPLACED BY [facility] Lactated Ringer's (Lr) 1,000 mls @ 50 mls/hr IVCONT .Q20H REPLACED BY [facility] Last Admin: 12/31/21 11:14 Dose: 50 mls/hr Documented by: Insulin Human Lispro (Insulin Lispro 100 Unit/Ml 3 Ml Vial) 0 unit SUBCUT QIDACHS REPLACED BY [facility]; Protocol Last Admin: 12/31/21 07:54 Dose: Not Given Documented by: Metoprolol Tartrate (Metoprolol Tartrate 25 Mg Tablet) 75 mg PO BID REPLACED BY [facility]; Protocol Last Admin: 12/31/21 10:59 Dose: Not Given Documented by: Morphine Sulfate (Morphine Sulfate 4 Mg/Ml Cartridge) 4 mg IVPUSH ONCE PRN; Protocol PRN Reason: Pain, Severe (Pain Scale 7-10) Last Admin: 12/27/21 09:38 Dose: 4 mg Documented by: Morphine Sulfate (Morphine Sulfate 2 Mg/Ml Cartridge) 2 mg IVPUSH Q2H PRN; Protocol PRN Reason: severe pain Last Admin: 12/30/21 11:57 Dose: 2 mg Documented by: Morphine Sulfate (Morphine Sulfate 2 Mg/Ml Cartridge) 1 mg IVPUSH ONCE PRN PRN Reason: Pain, Severe (Pain Scale 7-10) Stop: 12/31/21 15:00 Multivitamins/Vitamin C (Multivitamin Tablet) 1 tab PO DAILY REPLACED BY [facility] Last Admin: 12/31/21 10:59 Dose: Not Given Documented by: Nystatin (Nystatin Powder 15 Gm Bottle) 1 appl TOPICAL TID REPLACED BY [facility]; Protocol Last Admin: 12/30/21 21:46 Dose: 1 appl Documented by: Ondansetron HCl (Ondansetron Hcl 4 Mg/2 Ml Vial) 4 mg IVPUSH Q8H PRN PRN Reason: Nausea Last Admin: 12/26/21 13:26 Dose: 4 mg Documented by: Oxycodone HCl (Oxycodone Hcl Immed Release 5 Mg Tablet) 5 mg PO Q6H PRN PRN Reason: moderate pain Pharmacy Consult (Consult Rx Perform Med Rec) 1 each MISCELLANE ONCE PRN PRN Reason: Consult order Sodium Chloride (0.9 % Sodium Chloride Flush 3 Ml Syringe) 3 ml IVFLUSH QSHIFT REPLACED BY [facility] Last Admin: 12/31/21 10:59 Dose: Not Given Documented by: Spironolactone (Spironolactone 25 Mg Tablet) 25 mg PO DAILY REPLACED BY [facility]; Protocol Last Admin: 12/31/21 10:59 Dose: Not Given Documented by: Home Medications Medication Instructions Recorded Confirmed Last Taken Type Saccharomyces boulardii 250 mg 250 mg PO BID 11/25/21 11/25/21 11/24/21 History capsule (Florastor) acetaminophen 325 mg tablet 650 mg PO Q4H PRN 11/25/21 11/25/21 11/23/21 History albuterol sulfate 90 mcg/actuation 2 puff INHALATION Q4H PRN 11/25/21 11/25/21 11/22/21 History aerosol inhaler (ProAir HFA) aluminum-mag hydroxide-simethicone 30 ml PO Q4H PRN 11/25/21 11/25/21 11/16/21 History 200 mg-200 mg-20 mg/5 mL oral susp (Morena-Lanta) atorvastatin 10 mg tablet 1 tab PO DAILY 11/25/21 11/25/21 11/24/21 History azathioprine 50 mg tablet 2 tab PO DAILY 11/25/21 11/25/21 11/24/21 History calcitonin (salmon) 200 1 spray INTRANASAL DAILY 11/25/21 11/25/21 11/24/21 History unit/actuation nasal spray calcium carbonate 600 mg-vitamin 1 tab PO DAILY 11/25/21 11/25/21 11/24/21 History D3 5 mcg (200 unit) tablet (Calcium 600 + D(3)) cranberry fruit 450 mg tablet 450 mg PO BID 11/25/21 11/25/21 11/24/21 History (cranberry) cyclobenzaprine 10 mg tablet 1 tab PO Q24H PRN 11/25/21 11/25/21 11/21/21 His tory docusate sodium 100 mg tablet 100 mg PO BID 11/25/21 11/25/21 11/24/21 History dulaglutide 1.5 mg/0.5 mL 1.5 mg SUBCUT TU 11/25/21 11/25/21 11/23/21 History subcutaneous pen injector (Trulicity) gabapentin 100 mg capsule 1 cap PO TID 11/25/21 11/25/21 11/24/21 History haloperidol 5 mg tablet 5 mg PO BID 11/25/21 11/25/21 11/24/21 History hydroxyzine HCl 25 mg tablet 25 mg PO QID 11/25/21 11/25/21 11/24/21 History insulin detemir U-100 100 unit/mL 110 unit SUBCUT BID@0630,1630 11/25/21 11/25/21 11/24/21 History (3 mL) subcutaneous pen insulin regular human 100 unit/mL 1 sliding scale dose SUBCUT 11/25/21 11/25/21 11/24/21 History injection solution (Novolin R USEASDIRECTD Regular U-100 Insulin) ipratropium 20 mcg-albuterol 100 1 puff INHALATION BID 11/25/21 11/25/21 11/24/21 History mcg/actuation mist for inhalation (Combivent Respimat) lanolin alcohols-mineral 1 appl TOPICAL DAILY 11/25/21 11/25/21 Unknown History oil-w.petrolatum-ceresin topical cream (Minerin Creme) lisinopril 5 mg tablet 5 mg PO DAILY 11/25/21 11/25/21 11/24/21 History menthol 5 % topical patch (Bengay 1 patch TOPICAL DAILY PRN 11/25/21 11/25/21 Unknown History Ultra Strength (menthol)) metformin 1,000 mg tablet 1,000 mg PO BID 11/25/21 11/25/21 11/24/21 History mirtazapine 15 mg tablet 1 tab PO BEDTIME 11/25/21 11/25/21 11/23/21 History multivitamin 1 tab PO DAILY 11/25/21 11/25/21 11/24/21 History nicotine 7 mg/24 hr daily 1 patch TRANSDERMAL Q24H PRN 11/25/21 11/25/21 Unknown History transdermal patch nitrofurantoin macrocrystal 50 mg 1 cap PO BEDTIME 11/25/21 11/25/21 11/23/21 History capsule nitroglycerin 0.4 mg sublingual 0.4 mg SUBLINGUAL Q5M PRN 11/25/21 11/25/21 Unknown History tablet nystatin 100,000 unit/gram topical 1 appl TOPICAL BID 11/25/21 11/25/21 Unknown History powder omeprazole 20 mg tablet,delayed 20 mg PO BID 11/25/21 11/25/21 11/24/21 History release oxycodone-acetaminophen 5 mg-325 1 tab PO QID 11/25/21 11/25/2111/24/22 History mg tablet sennosides 8.6 mg tablet (senna) 8.6 mg PO DAILY 11/25/21 11/25/21 11/24/21 History sennosides 8.6 mg tablet (senna) 17.2 mg PO BEDTIME 11/25/21 11/25/21 11/23/21 History sitagliptin 100 mg tablet (Januvia) 100 mg PO DAILY 11/25/21 11/25/21 11/24/21 History sodium chloride 0.65 % nasal spray 2 spray INTRANASAL Q4H PRN 11/25/21 11/25/21 11/24/21 History aerosol (Deep Sea Nasal) sodium chloride 1,000 mg soluble 1,000 mg PO TID 11/25/21 11/25/21 11/24/21 History tablet tolterodine 4 mg capsule,extended 4 mg PO DAILY 11/25/21 11/25/21 11/24/21 History release 24 hr Physical Exam Vital Signs: Vital Signs: Last Vital Signs Temp 98 F 12/31/21 14:09 Pulse 91 12/31/21 14:09 Resp 40 H 12/31/21 14:09 BP 180/82 H 12/31/21 14:09 Pulse Ox 95 12/31/21 14:09 Oxygen Flow Rate 3 12/30/21 13:00 BMI result Body Mass Index 54.5 Results Labs CBC & Chem 7: 12/31/21 09:32 12/31/21 09:32 Labs: Short CBC 12/31/21 Range/Units 09:32 WBC 13.9 H (4.8-10.8) X10*3/uL Hgb 9.0 L (12.0-16.0) g/dl Hct 31.7 L (37.0-47.0) % Plt Count 350 (160-400) X10*3/uL BMP 12/31/21 09:32 Sodium 141 Potassium 4.1 Chloride 99 Carbon Dioxide 35 H BUN 7 L Creatinine 0.54 Calcium 8.1 L Microbiology Microbiology Results: Microbiology 12/11/21 19:58 Blood - Venous Blood Culture - Final No growth after 5 days. 12/11/21 19:58 Blood - Venous Blood Culture - Final No growth after 5 days. 12/12/21 02:35 Urine Catheterized - Arias Catheter Urine Culture - Final No growth. 12/08/21 15:40 Bronch Lll Gram Stain - Final 12/08/21 15:40 Bronch Lll Routine Culture - Final No growth after 2 days 12/05/21 21:20 Blood - Venous Blood Culture - Final No growth after 5 days. 12/05/21 21:20 Blood - Venous Blood Culture - Final No growth after 5 days. 12/08/21 Unknown Buttock Right Gram Stain - Final 12/08/21 Unknown Buttock Right Routine Culture - Final 12/06/21 20:12 Sputum - Suctioned Gram Stain - Final 12/06/21 20:12 Sputum - Suctioned Sputum Culture - Final 12/06/21 18:16 Urine Catheterized - Arias Catheter Urine Culture - Final No growth. 11/28/21 09:32 Sputum - Suctioned Gram Stain - Final 11/28/21 09:32 Sputum - Suctioned Sputum Culture - Final Kimberly albicans 11/25/21 01:47 Blood - Venous Blood Culture - Final No growth after 5 days. 11/25/21 01:42 Blood - Venous Blood Culture - Final No growth after 5 days.
[2021-12-31] MEDS: Nystatin Powder 15 GM BOTTLE 1 APPL TOPICAL ×3 (14:50→21:28)
[2021-12-31] MEDS: amLODIPine Besylate 5 MG TABLET PO (14:51)
[2021-12-31] MEDS: HaloperidoL 5 MG TABLET PO ×2 (15:59→21:27)
[2021-12-31 16:21] LABS: Glucose, Whole Blood 124 mg/dL (60-115)
[2021-12-31] MEDS: 0.9 % Sodium Chloride Flush 3 ML SYRINGE IVFLUSH (16:21)
[2021-12-31] MEDS: Morphine Sulfate 2 MG/ML CARTRIDGE IVPUSH ×2 (18:21→21:27)
[2021-12-31] MEDS: Metoprolol Tartrate 25 MG TABLET 75 MG PO (18:24)
[2021-12-31] MEDS: Apixaban 5 MG TABLET PO (18:24)
[2021-12-31] MEDS: Metoprolol Tartrate 5 MG/5 ML VIAL IVPUSH (18:39)
--- NOTE | 2021-12-31 18:49 | PC.NURSE ---
rapid afib heart rate 150-160 after pt was repositioned. Medicated with metoprolol 5 mg IV ,morphine 2 mg IV given for sacral pain
[2021-12-31 20:28] LABS: Glucose, Whole Blood 256 mg/dL (60-115)
[2021-12-31] MEDS: Insulin Lispro 100 UNIT/ML 3 ML VIAL SUBCUT (21:27)
[2022-01-01] VITALS (8 sets, daily range): BP systolic 114–168; BP diastolic 59–78; PULSE 71–107; RESP 16–20; TEMP 36.2–36.6; O2SAT 87–99
[2022-01-01] MEDS: Morphine Sulfate 4 MG/ML CARTRIDGE IVPUSH (00:42)
[2022-01-01] MEDS: Metoprolol Tartrate 5 MG/5 ML VIAL IVPUSH (00:43)
--- NOTE | 2022-01-01 06:10 | HO.POSTANES ---
Post Anesthesia Evaluation Post Anesthesia Evaluation Vital Signs: Vital Signs Temp Pulse Resp BP Pulse Ox 01/01/22 03:18 97.8 F 100 18 127/59 L 97 12/31/21 23:51 97.7 F 107 H 18 115/57 L 97 12/31/21 19:50 98.1 F 120 H 20 118/81 96 Anesthesia: General Mental Status: Awake Pain Control: Satisfactory Nausea/Vomiting: None Hydration: Adequate Anesthesia-Related Issues: No Anes. Related Issues
[2022-01-01 06:27] LABS: Venous Blood Gas Refer to POC result
[2022-01-01 06:29] LABS: VBG Base Excess 14.2 mmol/L; VBG HCO3 41 mmol/L (22-26); VBG pCO2 65 mmHg; VBG pO2 57 mmHg
[2022-01-01 06:33] LABS: Hematocrit 32.2 % (37.0-47.0); Mean Corpuscular Volume 78.7 fL (80.0-98.0); Mean Platelet Volume 9.9 fL (9.4-12.3); NRBC Pct Auto 0.4 /100WBC (0.0-0.2); Platelet Count 394 X10*3/uL (160-400); Red Blood Count 4.09 X10*6/uL (4.20-5.50); Red Cell Distribution Width 28.6 % (11.0-16.0); White Blood Count 13.8 X10*3/uL (4.8-10.8)
[2022-01-01 06:44] LABS: Anion Gap 10 (12-20); Blood Urea Nitrogen 8 mg/dL (9-16); Calcium 8.3 mg/dL (8.4-10.2); Carbon Dioxide 37 mmol/L (22-29); Chloride 100 mmol/L (96-108); Creatinine Clr Calc Pharmacy 164.6; Estimated Glomerular Filt Rate > 60; Glucose Random 118 mg/dL (60-115); Sodium 143 mmol/L (135-145)
[2022-01-01 06:47] LABS: B Type Natriuretic Peptide 726 pg/mL (<100)
[2022-01-01 07:33] LABS: Glucose, Whole Blood 106 mg/dL (60-115)
[2022-01-01 08:45] LABS: Magnesium 1.6 mg/dL (1.6-2.6)
[2022-01-01] MEDS: Furosemide 40 MG/4 ML VIAL IVPUSH ×2 (09:10→18:00)
[2022-01-01] MEDS: Multivitamin TABLET 1 TAB PO (09:10)
[2022-01-01] MEDS: Spironolactone 25 MG TABLET PO (09:10)
[2022-01-01] MEDS: Atorvastatin Calcium 10 MG TABLET PO (09:10)
[2022-01-01] MEDS: Metoprolol Tartrate 25 MG TABLET 75 MG PO ×2 (09:10→20:37)
[2022-01-01] MEDS: Apixaban 5 MG TABLET PO ×2 (09:11→20:37)
[2022-01-01] MEDS: Nystatin Powder 15 GM BOTTLE 1 APPL TOPICAL ×3 (09:11→21:00)
[2022-01-01] MEDS: amLODIPine Besylate 10 MG TABLET PO (09:11)
[2022-01-01] MEDS: HaloperidoL 5 MG TABLET PO ×2 (09:11→20:37)
[2022-01-01] MEDS: Digoxin 0.25 MG TABLET PO (09:11)
[2022-01-01] MEDS: 0.9 % Sodium Chloride Flush 3 ML SYRINGE IVFLUSH ×3 (09:11→20:37)
--- NOTE | 2022-01-01 10:43 | P.PNGS_ITS ---
Subjective Subjective Date of Service: 01/01/22 Interval history: Patient is awake and alert, denies any pain from the decubitus ulcer. Physical Exam Vital Signs: Vital Signs: Last Vital Signs Temp 97.8 F 01/01/22 07:03 Pulse 89 01/01/22 07:03 Resp 20 01/01/22 07:03 BP 164/70 H 01/01/22 07:03 Pulse Ox 98 01/01/22 07:03 Oxygen Flow Rate 3 12/30/21 13:00 BMI result Body Mass Index 54.5 Const: General: alert and awake Nutritional Appearance: obese Orientation/consciousness: oriented to person and oriented to place Limitations: physical limitations Resp: Other: Breathing comfortably with nasal O2 Back/Spine/Pelvis: Other: Wound VAC remains in place with good suction and no evidence of fecal discharge. Surrounding skin is intact without new ulceration appreciated. Neuro: General: oriented to person and oriented to place Objective Data Active Medications Acetaminophen (Acetaminophen 325 Mg Tablet) 650 mg PO Q6H PRN PRN Reason: Fever Last Admin: 12/30/21 11:57 Dose: 650 mg Documented by: CHRISTIANO Amlodipine Besylate (Amlodipine Besylate 10 Mg Tablet) 10 mg PO DAILY [facility]; Protocol Last Admin: 01/01/22 09:11 Dose: 10 mg Documented by: DONTRELL Apixaban (Apixaban 5 Mg Tablet) 5 mg PO BID [facility] Last Admin: 01/01/22 09:11 Dose: 5 mg Documented by: DONTRELL Atorvastatin Calcium (Atorvastatin Calcium 10 Mg Tablet) 10 mg PO DAILY [facility] Last Admin: 01/01/22 09:10 Dose: 10 mg Documented by: DONTRELL Digoxin (Digoxin 0.25 Mg Tablet) 0.25 mg PO DAILY [facility] Last Admin: 01/01/22 09:11 Dose: 0.25 mg Documented by: DONTRELL Furosemide (Furosemide 40 Mg/4 Ml Vial) 40 mg IVPUSH BID@0900,1800 [facility]; Protocol Stop: 01/02/22 09:01 Last Admin: 01/01/22 09:10 Dose: 40 mg Documented by: DONTRELL Haloperidol (Haloperidol 5 Mg Tablet) 5 mg PO BID [facility] Last Admin: 01/01/22 09:11 Dose: 5 mg Documented by: DONTRELL Insulin Human Lispro (Insulin Lispro 100 Unit/Ml 3 Ml Vial) 0 unit SUBCUT QIDACHS [facility]; Protocol Last Admin: 01/01/22 07:51 Dose: Not Given Documented by: DONTRELL Non-Admin Reason: No Insulin Coverage Metoprolol Tartrate (Metoprolol Tartrate 25 Mg Tablet) 75 mg PO BID [facility]; Protocol Last Admin: 01/01/22 09:10 Dose: 75 mg Documented by: DONTRELL Metoprolol Tartrate (Metoprolol Tartrate 5 Mg/5 Ml Vial) 5 mg IVPUSH Q6H PRN PRN Reason: Heart Rate >100 Last Admin: 01/01/22 00:43 Dose: 5 mg Documented by: DOROTHY Morphine Sulfate (Morphine Sulfate 4 Mg/Ml Cartridge) 4 mg IVPUSH ONCE PRN; Protocol PRN Reason: Pain, Severe (Pain Scale 7-10) Last Admin: 01/01/22 00:42 Dose: 4 mg Documented by: DOROTHY Morphine Sulfate (Morphine Sulfate 2 Mg/Ml Cartridge) 2 mg IVPUSH Q2H PRN; Protocol PRN Reason: severe pain Last Admin: 12/31/21 21:27 Dose: 2 mg Documented by: LIZA Multivitamins/Vitamin C (Multivitamin Tablet) 1 tab PO DAILY [facility] Last Admin: 01/01/22 09:10 Dose: 1 tab Documented by: DONTRELL Nystatin (Nystatin Powder 15 Gm Bottle) 1 appl TOPICAL TID [facility]; Protocol Last Admin: 01/01/22 09:11 Dose: 1 appl Documented by: DONTRELL Ondansetron HCl (Ondansetron Hcl 4 Mg/2 Ml Vial) 4 mg IVPUSH Q8H PRN PRN Reason: Nausea Last Admin: 12/26/21 13:26 Dose: 4 mg Documented by: CHRISTIANO Oxycodone HCl (Oxycodone Hcl Immed Release 5 Mg Tablet) 5 mg PO Q6H PRN PRN Reason: moderate pain Pharmacy Consult (Consult Rx Perform Med Rec) 1 each MISCELLANE ONCE PRN PRN Reason: Consult order Sodium Chloride (0.9 % Sodium Chloride Flush 3 Ml Syringe) [facility] Last Admin: 01/01/22 09:11 Dose: 3 ml Documented by: DONTRELL Spironolactone (Spironolactone 25 Mg Tablet) 25 mg PO DAILY [facility]; Protocol Last Admin: 01/01/22 09:10 Dose: 25 mg Documented by: DONTRELL Labs CBC & Chem 7: 01/01/22 06:17 01/01/22 06:17 Labs: Laboratory Results - last 24 hr 12/31/21 12/31/21 01/01/22 15:14 20:14 06:17 MCV 78.7 L MCH 22.0 L MCHC 28.0 L RDW 28.6 H Plt Count 394 MPV 9.9 Absolute Nucleated RBC 0.050 H Nucleated RBC % (auto) 0.4 H VBG pH VBG pCO2 VBG pO2 VBG HCO3 VBG O2 Saturation VBG Base Excess Anion Gap Estim Creat Clear Calc Estimated GFR POC Glucose 124 H 256 H Random Glucose Calcium Magnesium B-Natriuretic Peptide 01/01/22 01/01/22 01/01/22 06:17 06:17 06:22 MCV MCH MCHC RDW Plt Count MPV Absolute Nucleated RBC Nucleated RBC % (auto) VBG pH 7.40 VBG pCO2 65 VBG pO2 57 VBG HCO3 41 H VBG O2 Saturation 82.0 VBG Base Excess 14.2 Anion Gap 10 L Estim Creat Clear Calc 164.6 Estimated GFR > 60 POC Glucose Random Glucose 118 H Calcium 8.3 L Magnesium 1.6 B-Natriuretic Peptide 726 H 01/01/22 07:05 MCV MCH MCHC RDW Plt Count MPV Absolute Nucleated RBC Nucleated RBC % (auto) VBG pH VBG pCO2 VBG pO2 VBG HCO3 VBG O2 Saturation VBG Base Excess Anion Gap Estim Creat Clear Calc Estimated GFR POC Glucose 106 Random Glucose Calcium Magnesium B-Natriuretic Peptide Procedures Date of Service Date of Service: 01/01/22 Progress Note: A&P Assessment and plan (1) Sacral decubitus ulcer: Status: Acute Plan Sacral decubitus ulcer, status post debridement yesterday with wound VAC placement. The patient tolerated the procedure well and is comfortable this morning. The wound VAC remains intact and is functioning properly. I would like to change the VAC tomorrow will need assistance from the nursing staff. Wound VAC supplies are in the room already. I discussed this with the patient and she agrees to wound VAC change tomorrow. This will be performed at the bedside. Fall Risk Details Current Medications: Current Medications Acetaminophen (Acetaminophen 325 Mg Tablet) 650 mg PO Q6H PRN PRN Reason: Fever Last Admin: 12/30/21 11:57 Dose: 650 mg Documented by: Amlodipine Besylate (Amlodipine Besylate 10 Mg Tablet) 10 mg PO DAILY [facility]; Protocol Last Admin: 01/01/22 09:11 Dose: 10 mg Documented by: Apixaban (Apixaban 5 Mg Tablet) 5 mg PO BID [facility] Last Admin: 01/01/22 09:11 Dose: 5 mg Documented by: Atorvastatin Calcium (Atorvastatin Calcium 10 Mg Tablet) 10 mg PO DAILY [facility] Last Admin: 01/01/22 09:10 Dose: 10 mg Documented by: Digoxin (Digoxin 0.25 Mg Tablet) 0.25 mg PO DAILY [facility] Last Admin: 01/01/22 09:11 Dose: 0.25 mg Documented by: Furosemide (Furosemide 40 Mg/4 Ml Vial) 40 mg IVPUSH BID@0900,1800 [facility]; Protocol Stop: 01/02/22 09:01 Last Admin: 01/01/22 09:10 Dose: 40 mg Documented by: Haloperidol (Haloperidol 5 Mg Tablet) 5 mg PO BID [facility] Last Admin: 01/01/22 09:11 Dose: 5 mg Documented by: Insulin Human Lispro (Insulin Lispro 100 Unit/Ml 3 Ml Vial) 0 unit SUBCUT QIDACHS [facility]; Protocol Last Admin: 01/01/22 07:51 Dose: Not Given Documented by: Metoprolol Tartrate (Metoprolol Tartrate 25 Mg Tablet) 75 mg PO BID [facility]; Protocol Last Admin: 01/01/22 09:10 Dose: 75 mg Documented by: Metoprolol Tartrate (Metoprolol Tartrate 5 Mg/5 Ml Vial) 5 mg IVPUSH Q6H PRN PRN Reason: Heart Rate >100 Last Admin: 01/01/22 00:43 Dose: 5 mg Documented by: Morphine Sulfate (Morphine Sulfate 4 Mg/Ml Cartridge) 4 mg IVPUSH ONCE PRN; Protocol PRN Reason: Pain, Severe (Pain Scale 7-10) Last Admin: 01/01/22 00:42 Dose: 4 mg Documented by: Morphine Sulfate (Morphine Sulfate 2 Mg/Ml Cartridge) 2 mg IVPUSH Q2H PRN; Protocol PRN Reason: severe pain Last Admin: 12/31/21 21:27 Dose: 2 mg Documented by: Multivitamins/Vitamin C (Multivitamin Tablet) 1 tab PO DAILY [facility] Last Admin: 01/01/22 09:10 Dose: 1 tab Documented by: Nystatin (Nystatin Powder 15 Gm Bottle) 1 appl TOPICAL TID [facility]; Protocol Last Admin: 01/01/22 09:11 Dose: 1 appl Documented by: Ondansetron HCl (Ondansetron Hcl 4 Mg/2 Ml Vial) 4 mg IVPUSH Q8H PRN PRN Reason: Nausea Last Admin: 12/26/21 13:26 Dose: 4 mg Documented by: Oxycodone HCl (Oxycodone Hcl Immed Release 5 Mg Tablet) 5 mg PO Q6H PRN PRN Reason: moderate pain Pharmacy Consult (Consult Rx Perform Med Rec) 1 each MISCELLANE ONCE PRN PRN Reason: Consult order Sodium Chloride (0.9 % Sodium Chloride Flush 3 Ml Syringe) 3 ml IVFLUSH QSHIFT [facility] Last Admin: 01/01/22 09:11 Dose: 3 ml Documented by: Spironolactone (Spironolactone 25 Mg Tablet) 25 mg PO DAILY [facility]; Protocol Last Admin: 01/01/22 09:10 Dose: 25 mg Documented by: Time Spent With Patient Time: Total time spent is greater than 50% in coordination of care (as documented) at patient's floor/unit and/or counseling patient: Time with patient: 15 - 24 minutes Quality Stroke Does the patient have a stroke diagnosis?: No VTE Prior VTE?: No VTE Risk Level:: Medical - moderate - high VTE Device Contraindication: Treatment Not Indicated VTE Drug Contraindication: N/A - Med Ordered
[2022-01-01 11:24] LABS: Glucose, Whole Blood 132 mg/dL (60-115)
--- NOTE | 2022-01-01 12:17 | HO.PM.IMPN ---
Subjective Subjective Date of Service: 01/01/22 Interval History: Operative debridement yesterday. Guardian decided against diverting colostomy. AF/RVR yesterday evening, got 1 dose IV metoprolol Converted to NSR this AM at 6:15 Pt has no compliants and is on 4L O2 via NC, lying on her side. Review of Systems Review of Systems: Yes all other systems are reviewed and are negative Physical Exam Vital Signs: Vital Signs: Last Vital Signs Temp 97.8 F 01/01/22 11:26 Pulse 71 01/01/22 11:26 Resp 18 01/01/22 11:26 BP 114/78 01/01/22 11:26 Pulse Ox 99 01/01/22 11:26 Oxygen Flow Rate 3 12/30/21 13:00 BMI result Body Mass Index 54.5 Gen: NAD HEENT: sclera anicteric, moist mucus membranes Neck: supple, RIJ without signs of infection Lungs: diminished bilaterally Heart: regular, no murmurs Abd: soft, non-tender, non-distended, obese with pannus Ext: 1+ lower extremity edema Skin: warm/well-perfused, very large stage 4 sacral decubitus ulcer at least 15cm in diameter with some superior tunneling and necrosis Neuro: alert Psych: impaired insight Objective Data Active Medications Acetaminophen (Acetaminophen 325 Mg Tablet) 650 mg PO Q6H PRN PRN Reason: Fever Last Admin: 12/30/21 11:57 Dose: 650 mg Documented by: CHRISTIANO Amlodipine Besylate (Amlodipine Besylate 10 Mg Tablet) 10 mg PO DAILY [facility]; Protocol Last Admin: 01/01/22 09:11 Dose: 10 mg Documented by: DONTRELL Apixaban (Apixaban 5 Mg Tablet) 5 mg PO BID [facility] Last Admin: 01/01/22 09:11 Dose: 5 mg Documented by: DONTRELL Atorvastatin Calcium (Atorvastatin Calcium 10 Mg Tablet) 10 mg PO DAILY [facility] Last Admin: 01/01/22 09:10 Dose: 10 mg Documented by: DONTRELL Digoxin (Digoxin 0.25 Mg Tablet) 0.25 mg PO DAILY [facility] Last Admin: 01/01/22 09:11 Dose: 0.25 mg Documented by: DONTRELL Furosemide (Furosemide 40 Mg/4 Ml Vial) 40 mg IVPUSH BID@0900,1800 [facility]; Protocol Stop: 01/02/22 09:01 Last Admin: 01/01/22 09:10 Dose: 40 mg Documented by: DONTRELL Haloperidol (Haloperidol 5 Mg Tablet) 5 mg PO BID [facility] Last Admin: 01/01/22 09:11 Dose: 5 mg Documented by: DONTRELL Insulin Human Lispro (Insulin Lispro 100 Unit/Ml 3 Ml Vial) 0 unit SUBCUT QIDACHS [facility]; Protocol Last Admin: 01/01/22 12:15 Dose: Not Given Documented by: DONTRELL Non-Admin Reason: No Insulin Coverage Metoprolol Tartrate (Metoprolol Tartrate 25 Mg Tablet) 75 mg PO BID [facility]; Protocol Last Admin: 01/01/22 09:10 Dose: 75 mg Documented by: DONTRELL Metoprolol Tartrate (Metoprolol Tartrate 5 Mg/5 Ml Vial) 5 mg IVPUSH Q6H PRN PRN Reason: Heart Rate >100 Last Admin: 01/01/22 00:43 Dose: 5 mg Documented by: DOROTHY Morphine Sulfate (Morphine Sulfate 4 Mg/Ml Cartridge) 4 mg IVPUSH ONCE PRN; Protocol PRN Reason: Pain, Severe (Pain Scale 7-10) Last Admin: 01/01/22 00:42 Dose: 4 mg Documented by: DOROTHY Morphine Sulfate (Morphine Sulfate 2 Mg/Ml Cartridge) 2 mg IVPUSH Q2H PRN; Protocol PRN Reason: severe pain Last Admin: 12/31/21 21:27 Dose: 2 mg Documented by: LIZA Multivitamins/Vitamin C (Multivitamin Tablet) 1 tab PO DAILY [facility] Last Admin: 01/01/22 09:10 Dose: 1 tab Documented by: DONTRELL Nystatin (Nystatin Powder 15 Gm Bottle) 1 appl TOPICAL TID [facility]; Protocol Last Admin: 01/01/22 09:11 Dose: 1 appl Documented by: DONTRELL Ondansetron HCl (Ondansetron Hcl 4 Mg/2 Ml Vial) 4 mg IVPUSH Q8H PRN PRN Reason: Nausea Last Admin: 12/26/21 13:26 Dose: 4 mg Documented by: CHRISTIANO Oxycodone HCl (Oxycodone Hcl Immed Release 5 Mg Tablet) 5 mg PO Q6H PRN PRN Reason: moderate pain Pharmacy Consult (Consult Rx Perform Med Rec) 1 each MISCELLANE ONCE PRN PRN Reason: Consult order Sodium Chloride (0.9 % Sodium Chloride Flush 3 Ml Syringe) 3 ml IVFLUSH QSHIFT [facility] Last Admin: 01/01/22 09:11 Dose: 3 ml Documented by: DONTRELL Spironolactone (Spironolactone 25 Mg Tablet) 25 mg PO DAILY [facility]; Protocol Last Admin: 01/01/22 09:10 Dose: 25 mg Documented by: DONTRELL Labs CBC & Chem 7: 01/01/22 06:17 01/01/22 06:17 Labs: Laboratory Results - last 24 hr 12/31/21 12/31/21 01/01/22 15:14 20:14 06:17 MCV 78.7 L MCH 22.0 L MCHC 28.0 L RDW 28.6 H Plt Count 394 MPV 9.9 Absolute Nucleated RBC 0.050 H Nucleated RBC % (auto) 0.4 H VBG pH VBG pCO2 VBG pO2 VBG HCO3 VBG O2 Saturation VBG Base Excess Anion Gap Estim Creat Clear Calc Estimated GFR POC Glucose 124 H 256 H Random Glucose Calcium Magnesium B-Natriuretic Peptide 01/01/22 01/01/22 01/01/22 06:17 06:17 06:22 MCV MCH MCHC RDW Plt Count MPV Absolute Nucleated RBC Nucleated RBC % (auto) VBG pH 7.40 VBG pCO2 65 VBG pO2 57 VBG HCO3 41 H VBG O2 Saturation 82.0 VBG Base Excess 14.2 Anion Gap 10 L Estim Creat Clear Calc 164.6 Estimated GFR > 60 POC Glucose Random Glucose 118 H Calcium 8.3 L Magnesium 1.6 B-Natriuretic Peptide 726 H 01/01/22 01/01/22 07:05 11:11 MCV MCH MCHC RDW Plt Count MPV Absolute Nucleated RBC Nucleated RBC % (auto) VBG pH VBG pCO2 VBG pO2 VBG HCO3 VBG O2 Saturation VBG Base Excess Anion Gap Estim Creat Clear Calc Estimated GFR POC Glucose 106 132 H Random Glucose Calcium Magnesium B-Natriuretic Peptide Impressions Chest X-Ray 12/31/21 10:10 IMPRESSION: Cardiomegaly with mild CHF. Right jugular central venous catheter is in proximal SVC. No change from previous exam 12/17/2021. Assessment and Plan (1) Acute respiratory failure: Status: Acute (2) Sacral decubitus ulcer: Status: Acute (3) Atrial fibrillation with RVR: Status: Acute Plan hospital d#38 66-year-old F sent in from [facility], PMHx of alcoholic cirrhosis, dementia, schizoaffective disorder admitted for acute?exacerbation of underlying congestive heart failure further complicated by AF/RVR, COPD exacerbation and development of angioedema requiring intubation for ventilatory support on 11/27 extubated 11/29. 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 extubated 11/29/2021, reintubated on 12/06 and extubated 12/13 - multifactorial etiology including COPD, heart failure, and PNA on background of likely CPAP/OHS - respiratory acidosis metabolically compensated - overnight oximetry for likely CPAP need to be arranged at [facility] but for will place on BiPAP at night while inpt # HFpEF, [id number] - continue metoprolol + spironolactone - will give 3 doses of IV furosemide as she appears somewhat overloaded # Stage IV coccygeal decubitus ulcer - had operative debridement 12/28 and 12/31/21 - pt placed on pulsating air mattress on her side, with wedge behind back - VAC to be replaced tomorrow by Dr Jiménez - arrange VAC services at [facility], will need [facility] - Wound RN following - diverting colostomy offered but pt's guardian wishes to avoid this for now # AF - converted to NSR this am - continue metoprolol + digoxin - anticoagulated with apixaban # HTN, uncontrolled - continue metoprolol + spironolactone, increase amlodipine # COPD exacerbation - nebulizer treatments; weaned off steroids # DM2 - correction-dose lispro # schizoaffective disorder - restarted haloperidol # VTE ppx - apixaban # dispo - plan return to [facility] once wound care plan in place Quality Stroke Does the patient have a stroke diagnosis?: No VTE Prior VTE?: No VTE Risk Level:: Medical - moderate - high VTE Device Contraindication: Treatment Not Indicated VTE Drug Contraindication: N/A - Med Ordered
[2022-01-01] MEDS: Morphine Sulfate 2 MG/ML CARTRIDGE IVPUSH ×3 (15:30→23:18)
[2022-01-01 17:21] LABS: Glucose, Whole Blood 157 mg/dL (60-115)
[2022-01-01] MEDS: Insulin Lispro 100 UNIT/ML 3 ML VIAL SUBCUT ×2 (17:59→20:37)
--- NOTE | 2022-01-01 19:38 | PC.NURSE ---
At 181 today patient ripped out Triple Lumen. Catheter intact. Occlusive dressing applied. Dr. Tabares made aware. Peripheral IV placed. Pt currently laying on left side. No further complains.
[2022-01-01 20:13] LABS: Glucose, Whole Blood 151 mg/dL (60-115)
[2022-01-02] VITALS (8 sets, daily range): BP systolic 126–148; BP diastolic 58–82; PULSE 73–90; RESP 18–22; TEMP 36.2–36.6; O2SAT 90–100
[2022-01-02 07:38] LABS: B Type Natriuretic Peptide 279 pg/mL (<100)
[2022-01-02 07:39] LABS: Anion Gap 17 (12-20); Blood Urea Nitrogen 6 mg/dL (9-16); Calcium 8.2 mg/dL (8.4-10.2); Carbon Dioxide 35 mmol/L (22-29); Chloride 91 mmol/L (96-108); Creatinine Clr Calc Pharmacy 158.3; Estimated Glomerular Filt Rate > 60; Glucose Random 111 mg/dL (60-115); Magnesium 1.7 mg/dL (1.6-2.6); Sodium 139 mmol/L (135-145)
[2022-01-02 07:46] LABS: Glucose, Whole Blood 117 mg/dL (60-115)
[2022-01-02] MEDS: Multivitamin TABLET 1 TAB PO (08:48)
[2022-01-02] MEDS: Spironolactone 25 MG TABLET PO (08:48)
[2022-01-02] MEDS: Atorvastatin Calcium 10 MG TABLET PO (08:48)
[2022-01-02] MEDS: Furosemide 40 MG/4 ML VIAL IVPUSH (08:48)
[2022-01-02] MEDS: Digoxin 0.25 MG TABLET PO (08:48)
[2022-01-02] MEDS: Apixaban 5 MG TABLET PO ×2 (08:48→20:44)
[2022-01-02] MEDS: 0.9 % Sodium Chloride Flush 3 ML SYRINGE IVFLUSH ×3 (08:48→20:44)
[2022-01-02] MEDS: HaloperidoL 5 MG TABLET PO ×2 (08:48→20:44)
[2022-01-02] MEDS: Metoprolol Tartrate 25 MG TABLET 75 MG PO ×2 (08:48→20:44)
[2022-01-02] MEDS: amLODIPine Besylate 10 MG TABLET PO (08:48)
[2022-01-02] MEDS: Nystatin Powder 15 GM BOTTLE 1 APPL TOPICAL ×3 (09:26→20:45)
--- NOTE | 2022-01-02 10:08 | P.PNGS_ITS ---
Subjective Subjective Date of Service: 01/02/22 Interval history: She denies any new complaints. Physical Exam Vital Signs: Vital Signs: Last Vital Signs Temp 97.8 F 01/02/22 07:12 Pulse 80 01/02/22 07:12 Resp 20 01/02/22 07:12 BP 138/61 01/02/22 07:12 Pulse Ox 97 01/02/22 07:12 Oxygen Flow Rate 3 12/30/21 13:00 BMI result Body Mass Index 54.5 Const: Other: Awake and alert, no acute distress Resp: Other: breathing comfortably on nasal O2 Back/Spine/Pelvis: Other: wound VAC in place with good suction noted. No fecal in soilage. Wound VAC was changed today. Some devitalized tissue noted at the base of the wound. This was debrided with a scissors. Debrided margins measured 3 x 3 cm by 1 cm deep. This was located at the upper portion of the wound. No necrotic skin was noted. Margins revealed excellent granulation tissue. A new wound VAC was applied and good seal was identified. Patient tolerated this well. Skin: Other: warm, dry, no rash Objective Data Active Medications Acetaminophen (Acetaminophen 325 Mg Tablet) 650 mg PO Q6H PRN PRN Reason: Fever Last Admin: 12/30/21 11:57 Dose: 650 mg Documented by: CHRISTIANO Amlodipine Besylate (Amlodipine Besylate 10 Mg Tablet) 10 mg PO DAILY [facility]; Protocol Last Admin: 01/02/22 08:48 Dose: 10 mg Documented by: DONTRELL Apixaban (Apixaban 5 Mg Tablet) 5 mg PO BID [facility] Last Admin: 01/02/22 08:48 Dose: 5 mg Documented by: DONTRELL Atorvastatin Calcium (Atorvastatin Calcium 10 Mg Tablet) 10 mg PO DAILY [facility] Last Admin: 01/02/22 08:48 Dose: 10 mg Documented by: DONTRELL Digoxin (Digoxin 0.25 Mg Tablet) 0.25 mg PO DAILY [facility] Last Admin: 01/02/22 08:48 Dose: 0.25 mg Documented by: DONTRELL Haloperidol (Haloperidol 5 Mg Tablet) 5 mg PO BID [facility] Last Admin: 01/02/22 08:48 Dose: 5 mg Documented by: DONTRELL Insulin Human Lispro (Insulin Lispro 100 Unit/Ml 3 Ml Vial) 0 unit SUBCUT QIDACHS [facility]; Protocol Last Admin: 01/02/22 07:48 Dose: Not Given Documented by: DONTRELL Non-Admin Reason: No Insulin Coverage Metoprolol Tartrate (Metoprolol Tartrate 25 Mg Tablet) 75 mg PO BID [facility]; Protocol Last Admin: 01/02/22 08:48 Dose: 75 mg Documented by: DONTRELL Metoprolol Tartrate (Metoprolol Tartrate 5 Mg/5 Ml Vial) 5 mg IVPUSH Q6H PRN PRN Reason: Heart Rate >100 Last Admin: 01/01/22 00:43 Dose: 5 mg Documented by: DOROTHY Morphine Sulfate (Morphine Sulfate 4 Mg/Ml Cartridge) 4 mg IVPUSH ONCE PRN; Protocol PRN Reason: Pain, Severe (Pain Scale 7-10) Last Admin: 01/01/22 00:42 Dose: 4 mg Documented by: DOROTHY Morphine Sulfate (Morphine Sulfate 2 Mg/Ml Cartridge) 2 mg IVPUSH Q2H PRN; Protocol PRN Reason: severe pain Last Admin: 01/01/22 23:18 Dose: 2 mg Documented by: JOE Multivitamins/Vitamin C (Multivitamin Tablet) 1 tab PO DAILY [facility] Last Admin: 01/02/22 08:48 Dose: 1 tab Documented by: DONTRELL Nystatin (Nystatin Powder 15 Gm Bottle) 1 appl TOPICAL TID [facility]; Protocol Last Admin: 01/02/22 09:26 Dose: 1 appl Documented by: DONTRELL Ondansetron HCl (Ondansetron Hcl 4 Mg/2 Ml Vial) 4 mg IVPUSH Q8H PRN PRN Reason: Nausea Last Admin: 12/26/21 13:26 Dose: 4 mg Documented by: CHRISTIANO Oxycodone HCl (Oxycodone Hcl Immed Release 5 Mg Tablet) 5 mg PO Q6H PRN PRN Reason: moderate pain Pharmacy Consult (Consult Rx Perform Med Rec) 1 each MISCELLANE ONCE PRN PRN Reason: Consult order Sodium Chloride (0.9 % Sodium Chloride Flush 3 Ml Syringe) 3 ml IVFLUSH QSHIFT [facility] Last Admin: 01/02/22 08:48 Dose: 3 ml Documented by: DONTRELL Spironolactone (Spironolactone 25 Mg Tablet) 25 mg PO DAILY [facility]; Protocol Last Admin: 01/02/22 08:48 Dose: 25 mg Documented by: DONTRELL Labs CBC & Chem 7: 01/01/22 06:17 01/02/22 06:25 Labs: Laboratory Results - last 24 hr 01/01/22 01/01/22 01/01/22 11:11 16:38 19:52 Anion Gap Estim Creat Clear Calc Estimated GFR POC Glucose 132 H 157 H 151 H Random Glucose Calcium Magnesium B-Natriuretic Peptide 01/02/22 01/02/22 01/02/22 06:25 06:25 07:12 Anion Gap 17 Estim Creat Clear Calc 158.3 Estimated GFR > 60 POC Glucose 117 H Random Glucose 111 Calcium 8.2 L Magnesium 1.7 B-Natriuretic Peptide 279 H Procedures Date of Service Date of Service: 01/02/22 Progress Note: A&P Assessment and plan (1) Sacral decubitus ulcer: Status: Acute Plan wound VAC dressing change today. Good granulation noted at the margins. Devitalized tissue at the base of the wound was debrided at the bedside and new VAC dressing applied. Patient tolerated the procedure well. Will plan on VAC change on Monday. Fall Risk Details Current Medications: Current Medications Acetaminophen (Acetaminophen 325 Mg Tablet) 650 mg PO Q6H PRN PRN Reason: Fever Last Admin: 12/30/21 11:57 Dose: 650 mg Documented by: Amlodipine Besylate (Amlodipine Besylate 10 Mg Tablet) 10 mg PO DAILY [facility]; Protocol Last Admin: 01/02/22 08:48 Dose: 10 mg Documented by: Apixaban (Apixaban 5 Mg Tablet) 5 mg PO BID [facility] Last Admin: 01/02/22 08:48 Dose: 5 mg Documented by: Atorvastatin Calcium (Atorvastatin Calcium 10 Mg Tablet) 10 mg PO DAILY [facility] Last Admin: 01/02/22 08:48 Dose: 10 mg Documented by: Digoxin (Digoxin 0.25 Mg Tablet) 0.25 mg PO DAILY [facility] Last Admin: 01/02/22 08:48 Dose: 0.25 mg Documented by: Haloperidol (Haloperidol 5 Mg Tablet) 5 mg PO BID [facility] Last Admin: 01/02/22 08:48 Dose: 5 mg Documented by: Insulin Human Lispro (Insulin Lispro 100 Unit/Ml 3 Ml Vial) 0 unit SUBCUT QIDACHS [facility]; Protocol Last Admin: 01/02/22 07:48 Dose: Not Given Documented by: Metoprolol Tartrate (Metoprolol Tartrate 25 Mg Tablet) 75 mg PO BID [facility]; Protocol Last Admin: 01/02/22 08:48 Dose: 75 mg Documented by: Metoprolol Tartrate (Metoprolol Tartrate 5 Mg/5 Ml Vial) 5 mg IVPUSH Q6H PRN PRN Reason: Heart Rate >100 Last Admin: 01/01/22 00:43 Dose: 5 mg Documented by: Morphine Sulfate (Morphine Sulfate 4 Mg/Ml Cartridge) 4 mg IVPUSH ONCE PRN; Protocol PRN Reason: Pain, Severe (Pain Scale 7-10) Last Admin: 01/01/22 00:42 Dose: 4 mg Documented by: Morphine Sulfate (Morphine Sulfate 2 Mg/Ml Cartridge) 2 mg IVPUSH Q2H PRN; Protocol PRN Reason: severe pain Last Admin: 01/01/22 23:18 Dose: 2 mg Documented by: Multivitamins/Vitamin C (Multivitamin Tablet) 1 tab PO DAILY [facility] Last Admin: 01/02/22 08:48 Dose: 1 tab Documented by: Nystatin (Nystatin Powder 15 Gm Bottle) 1 appl TOPICAL TID [facility]; Protocol Last Admin: 01/02/22 09:26 Dose: 1 appl Documented by: Ondansetron HCl (Ondansetron Hcl 4 Mg/2 Ml Vial) 4 mg IVPUSH Q8H PRN PRN Reason: Nausea Last Admin: 12/26/21 13:26 Dose: 4 mg Documented by: Oxycodone HCl (Oxycodone Hcl Immed Release 5 Mg Tablet) 5 mg PO Q6H PRN PRN Reason: moderate pain Pharmacy Consult (Consult Rx Perform Med Rec) 1 each MISCELLANE ONCE PRN PRN Reason: Consult order Sodium Chloride (0.9 % Sodium Chloride Flush 3 Ml Syringe) 3 ml IVFLUSH QSHIFT [facility] Last Admin: 01/02/22 08:48 Dose: 3 ml Documented by: Spironolactone (Spironolactone 25 Mg Tablet) 25 mg PO DAILY [facility]; Protocol Last Admin: 01/02/22 08:48 Dose: 25 mg Documented by: Time Spent With Patient Time: Total time spent is greater than 50% in coordination of care (as documented) at patient's floor/unit and/or counseling patient: Time with patient: 15 - 24 minutes Quality Stroke Does the patient have a stroke diagnosis?: No VTE Prior VTE?: No VTE Risk Level:: Medical - moderate - high VTE Device Contraindication: Treatment Not Indicated VTE Drug Contraindication: N/A - Med Ordered
[2022-01-02] MEDS: Morphine Sulfate 2 MG/ML CARTRIDGE IVPUSH ×2 (10:56→17:36)
[2022-01-02 11:48] LABS: Glucose, Whole Blood 115 mg/dL (60-115)
--- NOTE | 2022-01-02 12:26 | P.PNIM_ITS ---
Subjective Subjective Date of Service: 01/02/22 Interval History: no acute issues overnight Review of Systems denies chest pain Breathing improved ...still mild SOB Denies nausea vomiting diarrhea Physical Exam Vital Signs: Vital Signs: Last Vital Signs Temp 97.8 F 01/02/22 11:51 Pulse 75 01/02/22 11:51 Resp 20 01/02/22 11:51 BP 143/58 H 01/02/22 11:51 Pulse Ox 93 01/02/22 11:51 Oxygen Flow Rate 3 12/30/21 13:00 BMI result Body Mass Index 54.5 Const: Other: no acute distress Resp: Other: scattered expiratory wheezes all martinez Cardio: Other: irregularly irregular; no S4 positive S1-S2 no S3 without murmurs or gallops Skin: Other: stage III sacral decub Extrem: Other: no edema bilaterally Objective Data Active Medications Acetaminophen (Acetaminophen 325 Mg Tablet) 650 mg PO Q6H PRN PRN Reason: Fever Last Admin: 12/30/21 11:57 Dose: 650 mg Documented by: CHRISTIANO Amlodipine Besylate (Amlodipine Besylate 10 Mg Tablet) 10 mg PO DAILY [facility]; Protocol Last Admin: 01/02/22 08:48 Dose: 10 mg Documented by: DONTRELL Apixaban (Apixaban 5 Mg Tablet) 5 mg PO BID [facility] Last Admin: 01/02/22 08:48 Dose: 5 mg Documented by: DONTRELL Atorvastatin Calcium (Atorvastatin Calcium 10 Mg Tablet) 10 mg PO DAILY [facility] Last Admin: 01/02/22 08:48 Dose: 10 mg Documented by: DONTRELL Digoxin (Digoxin 0.25 Mg Tablet) 0.25 mg PO DAILY [facility] Last Admin: 01/02/22 08:48 Dose: 0.25 mg Documented by: DONTRELL Haloperidol (Haloperidol 5 Mg Tablet) 5 mg PO BID [facility] Last Admin: 01/02/22 08:48 Dose: 5 mg Documented by: DONTRELL Insulin Human Lispro (Insulin Lispro 100 Unit/Ml 3 Ml Vial) 0 unit SUBCUT QIDACHS [facility]; Protocol Last Admin: 01/02/22 07:48 Dose: Not Given Documented by: DONTRELL Non-Admin Reason: No Insulin Coverage Metoprolol Tartrate (Metoprolol Tartrate 25 Mg Tablet) 75 mg PO BID [facility]; Protocol Last Admin: 01/02/22 08:48 Dose: 75 mg Documented by: DONTRELL Metoprolol Tartrate (Metoprolol Tartrate 5 Mg/5 Ml Vial) 5 mg IVPUSH Q6H PRN PRN Reason: Heart Rate >100 Last Admin: 01/01/22 00:43 Dose: 5 mg Documented by: DOROTHY Morphine Sulfate (Morphine Sulfate 4 Mg/Ml Cartridge) 4 mg IVPUSH ONCE PRN; Protocol PRN Reason: Pain, Severe (Pain Scale 7-10) Last Admin: 01/01/22 00:42 Dose: 4 mg Documented by: DOROTHY Morphine Sulfate (Morphine Sulfate 2 Mg/Ml Cartridge) 2 mg IVPUSH Q2H PRN; Protocol PRN Reason: severe pain Last Admin: 01/02/22 10:56 Dose: 2 mg Documented by: DONTRELL Multivitamins/Vitamin C (Multivitamin Tablet) 1 tab PO DAILY [facility] Last Admin: 01/02/22 08:48 Dose: 1 tab Documented by: DONTRELL Nystatin (Nystatin Powder 15 Gm Bottle) 1 appl TOPICAL TID [facility]; Protocol Last Admin: 01/02/22 09:26 Dose: 1 appl Documented by: DONTRELL Ondansetron HCl (Ondansetron Hcl 4 Mg/2 Ml Vial) 4 mg IVPUSH Q8H PRN PRN Reason: Nausea Last Admin: 12/26/21 13:26 Dose: 4 mg Documented by: CHRISTIANO Oxycodone HCl (Oxycodone Hcl Immed Release 5 Mg Tablet) 5 mg PO Q6H PRN PRN Reason: moderate pain Pharmacy Consult (Consult Rx Perform Med Rec) 1 each MISCELLANE ONCE PRN PRN Reason: Consult order Sodium Chloride (0.9 % Sodium Chloride Flush 3 Ml Syringe) [facility] Last Admin: 01/02/22 08:48 Dose: 3 ml Documented by: DONTRELL Spironolactone (Spironolactone 25 Mg Tablet) 25 mg PO DAILY [facility]; Protocol Last Admin: 01/02/22 08:48 Dose: 25 mg Documented by: DONTRELL Labs CBC & Chem 7: 01/01/22 06:17 01/02/22 06:25 Labs: Laboratory Results - last 24 hr 01/01/22 01/01/22 01/02/22 16:38 19:52 06:25 Anion Gap 17 Estim Creat Clear Calc 158.3 Estimated GFR > 60 POC Glucose 157 H 151 H Random Glucose 111 Calcium 8.2 L Magnesium 1.7 B-Natriuretic Peptide 01/02/22 01/02/22 01/02/22 06:25 07:12 11:21 Anion Gap Estim Creat Clear Calc Estimated GFR POC Glucose 117 H 115 Random Glucose Calcium Magnesium B-Natriuretic Peptide 279 H Assessment and Plan (1) Acute respiratory failure: Status: Acute (2) Diastolic CHF with preserved left ventricular function, NYHA class 2: Status: Acute (3) Sacral decubitus ulcer: Status: Acute (4) Schizoaffective disorder: Status: Acute (5) PAF (paroxysmal atrial fibrillation): Status: Acute Plan 66-year-old F sent in from [facility], PMHx of alcoholic cirrhosis, dementia, schizoaffective disorder admitted for acute?exacerbation of underlying congestive heart failure further complicated by AF/RVR, COPD exacerbation and development of angioedema requiring intubation for ventilatory support on 11/27 extubated 11/29. 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 acute respiratory failure secondary to angioedema requiring intubation and ventilatory support for airway protection intubated on 11/27,? extubated 11/29/2021, reintubated on 12/06 and extubated 12/13 - multifactorial etiology including COPD, heart failure, and PNA on background of likely CPAP/OHS - respiratory acidosis metabolically compensated - overnight oximetry for likely CPAP need to be arranged at [facility] but for will place on BiPAP at night while inpt 2. HFpEF, [id number] - continue metoprolol + spironolactone - good response to diuresis; BNP [phone] 3.Stage IV coccygeal decubitus ulcer -operative debridement 12/28 and 12/31/21 - VACreplaced today by Dr Jiménez - arrange VAC services at [facility], will need [facility] 3.Paroxysmal Atrial FibriLATION - NSR this am - continue metoprolol/ digoxin - anticoagulated with apixaban 4. HTN -acceptable control on current therapies -metoprolol/spironolactone/amlodipine 5. DMII - acceptable control on current therapies - correction-dose lispro 6.Schizoaffective disorder - restarted haloperidol - add back Hydroxyzine # VTE ppx - apixaban # dispo - plan return to [facility] once wound care plan in place Quality Stroke Does the patient have a stroke diagnosis?: No VTE Prior VTE?: No VTE Risk Level:: Medical - moderate - high VTE Device Contraindication: Treatment Not Indicated VTE Drug Contraindication: N/A - Med Ordered
[2022-01-02] MEDS: hydrOXYzine HCL 25 MG TABLET PO ×3 (13:50→20:44)
[2022-01-02 16:44] LABS: Glucose, Whole Blood 121 mg/dL (60-115)
[2022-01-02 20:53] LABS: Glucose, Whole Blood 115 mg/dL (60-115)
[2022-01-03] VITALS (7 sets, daily range): BP systolic 90–140; BP diastolic 55–85; PULSE 74–81; RESP 16–22; TEMP 36.2–37.1; O2SAT 93–99
[2022-01-03 07:23] LABS: Glucose, Whole Blood 103 mg/dL (60-115)
[2022-01-03 07:38] LABS: Basophils Absolute Auto 0.1 X10*3/uL (0.0-0.2); Basophils Percent Auto 0.6 % (0-2); Eosinophils Absolute Auto 0.1 X10*3/uL (0.0-0.4); Eosinophils Percent Auto 0.9 % (0-4); Hematocrit 34.7 % (37.0-47.0); Hemoglobin 10.3 g/dl (12.0-16.0); Imm Gran Abs Auto 0.69 X10*3/uL (0.00-0.03); Imm Gran Pct Auto 4.6 % (0.0-0.4); Lymphocytes Absolute Auto 1.6 X10*3/uL (1.2-4.9); Lymphocytes Percent Auto 10.3 % (20-40); MANUAL DIFF FLAG SCAN; Mean Corpuscular HGB Conc 29.7 g/dl (31.0-35.0); Mean Corpuscular Hemoglobin 22.7 pg (27.0-33.0); Mean Corpuscular Volume 76.4 fL (80.0-98.0); Monocytes Percent Auto 6.9 % (2-11); NRBC Pct Auto 0.2 /100WBC (0.0-0.2); Neutrophils Absolute Auto 11.5 x10*3/uL (2.0-8.3); Neutrophils Percent Auto 76.7 % (45-73); PLT CLUMP 1; Red Blood Count 4.54 X10*6/uL (4.20-5.50); Red Cell Distribution Width 28.7 % (11.0-16.0); SCAN SMEAR FLAG 1
[2022-01-03 07:56] LABS: Alanine Aminotransferase 12 U/L (0-31); Albumin Level 2.4 g/dL (3.5-5.0); Alkaline Phosphatase 75 U/L (39-117); Anion Gap 17 (12-20); Aspartate Amino Transferase 46 U/L (5-31); Bilirubin Total 0.7 mg/dL (0.0-1.0); Blood Urea Nitrogen 4 mg/dL (9-16); Carbon Dioxide 29 mmol/L (22-29); Chloride 93 mmol/L (96-108); Creatinine Clr Calc Pharmacy 152.4; Estimated Glomerular Filt Rate > 60; Glucose Fasting 102 mg/dL (60-99); Potassium 4.9 mmol/L (3.3-5.1); Sodium 134 mmol/L (135-145)
[2022-01-03 08:14] LABS: Platelet Count 300 X10*3/uL (160-400); SLIDE REVIEW VERIFIED
--- NOTE | 2022-01-03 08:33 | PM.PNGS ---
Subjective Subjective Date of Service: 01/03/22 Interval history: Patient is comfortable with no new complaints Physical Exam Vital Signs: Vital Signs: Last Vital Signs Temp 97.9 F 01/03/22 03:24 Pulse 74 01/03/22 03:24 Resp 20 01/03/22 03:24 BP 140/85 H 01/03/22 03:24 Pulse Ox 94 01/03/22 03:24 Oxygen Flow Rate 3 12/30/21 13:00 BMI result Body Mass Index 54.5 Resp: Other: on nasal O2, breathing comfortably. Back/Spine/Pelvis: Other: Wound vac dressing is inplace with good suction. No erythema in the surrounding skin. Objective Data Active Medications Acetaminophen (Acetaminophen 325 Mg Tablet) 650 mg PO Q6H PRN PRN Reason: Fever Last Admin: 12/30/21 11:57 Dose: 650 mg Documented by: CHRISTIANO Amlodipine Besylate (Amlodipine Besylate 10 Mg Tablet) 10 mg PO DAILY [facility]; Protocol Last Admin: 01/02/22 08:48 Dose: 10 mg Documented by: DONTRELL Apixaban (Apixaban 5 Mg Tablet) 5 mg PO BID [facility] Last Admin: 01/02/22 20:44 Dose: 5 mg Documented by: SYL Atorvastatin Calcium (Atorvastatin Calcium 10 Mg Tablet) 10 mg PO DAILY [facility] Last Admin: 01/02/22 08:48 Dose: 10 mg Documented by: DONTRELL Digoxin (Digoxin 0.25 Mg Tablet) 0.25 mg PO DAILY [facility] Last Admin: 01/02/22 08:48 Dose: 0.25 mg Documented by: DONTRELL Haloperidol (Haloperidol 5 Mg Tablet) 5 mg PO BID [facility] Last Admin: 01/02/22 20:44 Dose: 5 mg Documented by: SYL Hydroxyzine HCl (Hydroxyzine Hcl 25 Mg Tablet) 25 mg PO QID [facility] Last Admin: 01/02/22 20:44 Dose: 25 mg Documented by: SYL Insulin Human Lispro (Insulin Lispro 100 Unit/Ml 3 Ml Vial) 0 unit SUBCUT QIDACHS [facility]; Protocol Last Admin: 01/03/22 07:26 Dose: Not Given Documented by: DONTRELL Non-Admin Reason: No Insulin Coverage Metoprolol Tartrate (Metoprolol Tartrate 25 Mg Tablet) 75 mg PO BID [facility]; Protocol Last Admin: 01/02/22 20:44 Dose: 75 mg Documented by: SYL Metoprolol Tartrate (Metoprolol Tartrate 5 Mg/5 Ml Vial) 5 mg IVPUSH Q6H PRN PRN Reason: Heart Rate >100 Last Admin: 01/01/22 00:43 Dose: 5 mg Documented by: DOROTHY Morphine Sulfate (Morphine Sulfate 4 Mg/Ml Cartridge) 4 mg IVPUSH ONCE PRN; Protocol PRN Reason: Pain, Severe (Pain Scale 7-10) Last Admin: 01/01/22 00:42 Dose: 4 mg Documented by: DOROTHY Morphine Sulfate (Morphine Sulfate 2 Mg/Ml Cartridge) 2 mg IVPUSH Q2H PRN; Protocol PRN Reason: severe pain Last Admin: 01/02/22 17:36 Dose: 2 mg Documented by: DONTRELL Multivitamins/Vitamin C (Multivitamin Tablet) 1 tab PO DAILY [facility] Last Admin: 01/02/22 08:48 Dose: 1 tab Documented by: DONTRELL Nystatin (Nystatin Powder 15 Gm Bottle) 1 appl TOPICAL TID [facility]; Protocol Last Admin: 01/02/22 20:45 Dose: 1 appl Documented by: SYL Ondansetron HCl (Ondansetron Hcl 4 Mg/2 Ml Vial) 4 mg IVPUSH Q8H PRN PRN Reason: Nausea Last Admin: 12/26/21 13:26 Dose: 4 mg Documented by: CHRISTIANO Oxycodone HCl (Oxycodone Hcl Immed Release 5 Mg Tablet) 5 mg PO Q6H PRN PRN Reason: moderate pain Pharmacy Consult (Consult Rx Perform Med Rec) 1 each MISCELLANE ONCE PRN PRN Reason: Consult order Sodium Chloride (0.9 % Sodium Chloride Flush 3 Ml Syringe) [facility] Last Admin: 01/02/22 20:44 Dose: 3 ml Documented by: SYL Spironolactone (Spironolactone 25 Mg Tablet) 25 mg PO DAILY [facility]; Protocol Last Admin: 01/02/22 08:48 Dose: 25 mg Documented by: DONTRELL Labs CBC & Chem 7: 01/03/22 06:58 01/03/22 06:58 Labs: Laboratory Results - last 24 hr 01/02/22 01/02/22 01/02/22 11:21 16:32 20:42 MCV MCH MCHC RDW Plt Count MPV Immature Gran % (Auto) Neut % (Auto) Lymph % (Auto) [place] % (Auto) Eos % (Auto) Baso % (Auto) Lymph # (Auto) [place] # (Auto) Eos # (Auto) Baso # (Auto) Abs Immat Gran (auto) Absolute Neuts (auto) Absolute Nucleated RBC Nucleated RBC % (auto) Smear Tech's Comments Anion Gap Estim Creat Clear Calc Estimated GFR POC Glucose 115 121 H 115 Fasting Glucose Calcium Total Bilirubin AST ALT Alkaline Phosphatase Total Protein Albumin 01/03/22 01/03/22 01/03/22 06:58 06:58 07:07 MCV 76.4 L MCH 22.7 L MCHC 29.7 L RDW 28.7 H Plt Count 300 MPV Not Reportable Immature Gran % (Auto) 4.6 H Neut % (Auto) 76.7 H Lymph % (Auto) 10.3 L [place] % (Auto) 6.9 Eos % (Auto) 0.9 Baso % (Auto) 0.6 Lymph # (Auto) 1.6 [place] # (Auto) 1.0 Eos # (Auto) 0.1 Baso # (Auto) 0.1 Abs Immat Gran (auto) 0.69 H Absolute Neuts (auto) 11.5 H Absolute Nucleated RBC 0.030 H Nucleated RBC % (auto) 0.2 Smear Tech's Comments VERIFIED Anion Gap 17 Estim Creat Clear Calc 152.4 Estimated GFR > 60 POC Glucose 103 Fasting Glucose 102 H Calcium 8.0 L Total Bilirubin 0.7 AST 46 H D ALT 12 Alkaline Phosphatase 75 Total Protein 6.0 L Albumin 2.4 L Procedures Date of Service Date of Service: 01/03/22 Progress Note: A&P Assessment and plan (1) Sacral decubitus ulcer: Status: Acute Plan Wound vac in place, plan dressing change on Monday as long as the current dressing remains intact. Further debridement as necessary. Fall Risk Details Current Medications: Current Medications Acetaminophen (Acetaminophen 325 Mg Tablet) 650 mg PO Q6H PRN PRN Reason: Fever Last Admin: 12/30/21 11:57 Dose: 650 mg Documented by: Amlodipine Besylate (Amlodipine Besylate 10 Mg Tablet) 10 mg PO DAILY [facility]; Protocol Last Admin: 01/02/22 08:48 Dose: 10 mg Documented by: Apixaban (Apixaban 5 Mg Tablet) 5 mg PO BID [facility] Last Admin: 01/02/22 20:44 Dose: 5 mg Documented by: Atorvastatin Calcium (Atorvastatin Calcium 10 Mg Tablet) 10 mg PO DAILY [facility] Last Admin: 01/02/22 08:48 Dose: 10 mg Documented by: Digoxin (Digoxin 0.25 Mg Tablet) 0.25 mg PO DAILY [facility] Last Admin: 01/02/22 08:48 Dose: 0.25 mg Documented by: Haloperidol (Haloperidol 5 Mg Tablet) 5 mg PO BID [facility] Last Admin: 01/02/22 20:44 Dose: 5 mg Documented by: Hydroxyzine HCl (Hydroxyzine Hcl 25 Mg Tablet) 25 mg PO QID [facility] Last Admin: 01/02/22 20:44 Dose: 25 mg Documented by: Insulin Human Lispro (Insulin Lispro 100 Unit/Ml 3 Ml Vial) 0 unit SUBCUT QIDACHS [facility]; Protocol Last Admin: 01/03/22 07:26 Dose: Not Given Documented by: Metoprolol Tartrate (Metoprolol Tartrate 25 Mg Tablet) 75 mg PO BID [facility]; Protocol Last Admin: 01/02/22 20:44 Dose: 75 mg Documented by: Metoprolol Tartrate (Metoprolol Tartrate 5 Mg/5 Ml Vial) 5 mg IVPUSH Q6H PRN PRN Reason: Heart Rate >100 Last Admin: 01/01/22 00:43 Dose: 5 mg Documented by: Morphine Sulfate (Morphine Sulfate 4 Mg/Ml Cartridge) 4 mg IVPUSH ONCE PRN; Protocol PRN Reason: Pain, Severe (Pain Scale 7-10) Last Admin: 01/01/22 00:42 Dose: 4 mg Documented by: Morphine Sulfate (Morphine Sulfate 2 Mg/Ml Cartridge) 2 mg IVPUSH Q2H PRN; Protocol PRN Reason: severe pain Last Admin: 01/02/22 17:36 Dose: 2 mg Documented by: Multivitamins/Vitamin C (Multivitamin Tablet) 1 tab PO DAILY [facility] Last Admin: 01/02/22 08:48 Dose: 1 tab Documented by: Nystatin (Nystatin Powder 15 Gm Bottle) 1 appl TOPICAL TID [facility]; Protocol Last Admin: 01/02/22 20:45 Dose: 1 appl Documented by: Ondansetron HCl (Ondansetron Hcl 4 Mg/2 Ml Vial) 4 mg IVPUSH Q8H PRN PRN Reason: Nausea Last Admin: 12/26/21 13:26 Dose: 4 mg Documented by: Oxycodone HCl (Oxycodone Hcl Immed Release 5 Mg Tablet) 5 mg PO Q6H PRN PRN Reason: moderate pain Pharmacy Consult (Consult Rx Perform Med Rec) 1 each MISCELLANE ONCE PRN PRN Reason: Consult order Sodium Chloride (0.9 % Sodium Chloride Flush 3 Ml Syringe) 3 ml IVFLUSH QSHIFT [facility] Last Admin: 01/02/22 20:44 Dose: 3 ml Documented by: Spironolactone (Spironolactone 25 Mg Tablet) 25 mg PO DAILY [facility]; Protocol Last Admin: 01/02/22 08:48 Dose: 25 mg Documented by: Time Spent With Patient Time: Total time spent is greater than 50% in coordination of care (as documented) at patient's floor/unit and/or counseling patient: Time with patient: less than 15 minutes Quality Stroke Does the patient have a stroke diagnosis?: No VTE Prior VTE?: No VTE Risk Level:: Medical - moderate - high VTE Device Contraindication: Treatment Not Indicated VTE Drug Contraindication: N/A - Med Ordered
--- NOTE | 2022-01-03 10:09 | MHC.CLN ---
F/U PO INTAKE REMAINS POOR DIET RX: GRD M/S-RECOMMEND LIBERALIZED TO REGULAR TO INCREASE VARIETY WILL RE-START ENSURE BID AND LELAND BID TO PROVIDE 860KCALS, 45G PROTEIN FOR INCREASE KCALS AND PROMOTE WOUND HEALING CONTINUE STRICT PO MONITORING
[2022-01-03] MEDS: HaloperidoL 5 MG TABLET PO ×2 (10:35→21:40)
[2022-01-03] MEDS: Metoprolol Tartrate 25 MG TABLET 75 MG PO ×2 (10:35→21:41)
[2022-01-03] MEDS: Digoxin 0.25 MG TABLET PO (10:35)
[2022-01-03] MEDS: amLODIPine Besylate 10 MG TABLET PO (10:35)
[2022-01-03] MEDS: Nystatin Powder 15 GM BOTTLE 1 APPL TOPICAL ×2 (10:36→17:38)
[2022-01-03] MEDS: Multivitamin TABLET 1 TAB PO (10:36)
[2022-01-03] MEDS: hydrOXYzine HCL 25 MG TABLET PO ×3 (10:36→21:40)
[2022-01-03] MEDS: Apixaban 5 MG TABLET PO ×2 (10:36→21:40)
[2022-01-03] MEDS: Spironolactone 25 MG TABLET PO (10:36)
[2022-01-03] MEDS: Atorvastatin Calcium 10 MG TABLET PO (10:36)
[2022-01-03] MEDS: 0.9 % Sodium Chloride Flush 3 ML SYRINGE IVFLUSH ×2 (10:36→17:38)
[2022-01-03] MEDS: Morphine Sulfate 2 MG/ML CARTRIDGE IVPUSH (10:42)
--- NOTE | 2022-01-03 10:59 | MHC.SLORD ---
Speech Language Pathology Order Status: PUMP AND BLOWER OPERATOR attempted to see patient for dysphagia treatment. Patient refused all PO offered by PUMP AND BLOWER OPERATOR- Patient is on [facility] (NDD2) solids and THIN liquids. PUMP AND BLOWER OPERATOR will continue to follow.
[2022-01-03 11:38] LABS: Glucose, Whole Blood 117 mg/dL (60-115)
--- NOTE | 2022-01-03 14:20 | HO.PM.IMPN ---
Subjective Subjective Date of Service: 01/03/22 Interval History: no acute issues overnight Review of Systems denies chest pain Breathing improved ...still mild SOB Denies nausea vomiting diarrhea Physical Exam Vital Signs: Vital Signs: Last Vital Signs Temp 97.8 F 01/03/22 12:00 Pulse 74 01/03/22 12:00 Resp 20 01/03/22 12:00 BP 134/65 01/03/22 12:00 Pulse Ox 93 01/03/22 12:00 Oxygen Flow Rate 3 12/30/21 13:00 BMI result Body Mass Index 54.5 Const: Other: no acute distress Resp: Other: scattered expiratory wheezes all martinez Cardio: Other: irregularly irregular; no S4 positive S1-S2 no S3 without murmurs or gallops Skin: Other: stage III sacral decub Extrem: Other: no edema bilaterally Objective Data Active Medications Acetaminophen (Acetaminophen 325 Mg Tablet) 650 mg PO Q6H PRN PRN Reason: Fever Last Admin: 12/30/21 11:57 Dose: 650 mg Documented by: CHRISTIANO Amlodipine Besylate (Amlodipine Besylate 10 Mg Tablet) 10 mg PO DAILY [facility]; Protocol Last Admin: 01/03/22 10:35 Dose: 10 mg Documented by: DONTRELL Apixaban (Apixaban 5 Mg Tablet) 5 mg PO BID [facility] Last Admin: 01/03/22 10:36 Dose: 5 mg Documented by: DONTRELL Atorvastatin Calcium (Atorvastatin Calcium 10 Mg Tablet) 10 mg PO DAILY [facility] Last Admin: 01/03/22 10:36 Dose: 10 mg Documented by: DONTRELL Digoxin (Digoxin 0.25 Mg Tablet) 0.25 mg PO DAILY [facility] Last Admin: 01/03/22 10:35 Dose: 0.25 mg Documented by: DONTRELL Haloperidol (Haloperidol 5 Mg Tablet) 5 mg PO BID [facility] Last Admin: 01/03/22 10:35 Dose: 5 mg Documented by: DONTRELL Hydroxyzine HCl (Hydroxyzine Hcl 25 Mg Tablet) 25 mg PO QID [facility] Last Admin: 01/03/22 10:36 Dose: 25 mg Documented by: DONTRELL Insulin Human Lispro (Insulin Lispro 100 Unit/Ml 3 Ml Vial) 0 unit SUBCUT QIDACHS [facility]; Protocol Last Admin: 01/03/22 11:47 Dose: Not Given Documented by: DONTRELL Non-Admin Reason: No Insulin Coverage Metoprolol Tartrate (Metoprolol Tartrate 25 Mg Tablet) 75 mg PO BID [facility]; Protocol Last Admin: 01/03/22 10:35 Dose: 75 mg Documented by: DONTRELL Metoprolol Tartrate (Metoprolol Tartrate 5 Mg/5 Ml Vial) 5 mg IVPUSH Q6H PRN PRN Reason: Heart Rate >100 Last Admin: 01/01/22 00:43 Dose: 5 mg Documented by: DOROTHY Morphine Sulfate (Morphine Sulfate 4 Mg/Ml Cartridge) 4 mg IVPUSH ONCE PRN; Protocol PRN Reason: Pain, Severe (Pain Scale 7-10) Last Admin: 01/01/22 00:42 Dose: 4 mg Documented by: DOROTHY Morphine Sulfate (Morphine Sulfate 2 Mg/Ml Cartridge) 2 mg IVPUSH Q2H PRN; Protocol PRN Reason: severe pain Last Admin: 01/03/22 10:42 Dose: 2 mg Documented by: DONTRELL Multivitamins/Vitamin C (Multivitamin Tablet) 1 tab PO DAILY [facility] Last Admin: 01/03/22 10:36 Dose: 1 tab Documented by: DONTRELL Nystatin (Nystatin Powder 15 Gm Bottle) 1 appl TOPICAL TID [facility]; Protocol Last Admin: 01/03/22 10:36 Dose: 1 appl Documented by: DONTRELL Ondansetron HCl (Ondansetron Hcl 4 Mg/2 Ml Vial) 4 mg IVPUSH Q8H PRN PRN Reason: Nausea Last Admin: 12/26/21 13:26 Dose: 4 mg Documented by: CHRISTIANO Oxycodone HCl (Oxycodone Hcl Immed Release 5 Mg Tablet) 5 mg PO Q6H PRN PRN Reason: moderate pain Pharmacy Consult (Consult Rx Perform Med Rec) 1 each MISCELLANE ONCE PRN PRN Reason: Consult order Sodium Chloride (0.9 % Sodium Chloride Flush 3 Ml Syringe) 3 ml IVFLUSH QSHIFT [facility] Last Admin: 01/03/22 10:36 Dose: 3 ml Documented by: DONTRELL Spironolactone (Spironolactone 25 Mg Tablet) 25 mg PO DAILY [facility]; Protocol Last Admin: 01/03/22 10:36 Dose: 25 mg Documented by: DONTRELL Labs CBC & Chem 7: 01/03/22 06:58 01/03/22 06:58 Labs: Laboratory Results - last 24 hr 01/02/22 01/02/22 01/03/22 16:32 20:42 06:58 MCV 76.4 L MCH 22.7 L MCHC 29.7 L RDW 28.7 H Plt Count 300 MPV Not Reportable Immature Gran % (Auto) 4.6 H Neut % (Auto) 76.7 H Lymph % (Auto) 10.3 L [place] % (Auto) 6.9 Eos % (Auto) 0.9 Baso % (Auto) 0.6 Lymph # (Auto) 1.6 [place] # (Auto) 1.0 Eos # (Auto) 0.1 Baso # (Auto) 0.1 Abs Immat Gran (auto) 0.69 H Absolute Neuts (auto) 11.5 H Absolute Nucleated RBC 0.030 H Nucleated RBC % (auto) 0.2 Smear Tech's Comments VERIFIED Anion Gap Estim Creat Clear Calc Estimated GFR POC Glucose 121 H 115 Fasting Glucose Calcium Total Bilirubin AST ALT Alkaline Phosphatase Total Protein Albumin 01/03/22 01/03/22 01/03/22 06:58 07:07 11:32 MCV MCH MCHC RDW Plt Count MPV Immature Gran % (Auto) Neut % (Auto) Lymph % (Auto) [place] % (Auto) Eos % (Auto) Baso % (Auto) Lymph # (Auto) [place] # (Auto) Eos # (Auto) Baso # (Auto) Abs Immat Gran (auto) Absolute Neuts (auto) Absolute Nucleated RBC Nucleated RBC % (auto) Smear Tech's Comments Anion Gap 17 Estim Creat Clear Calc 152.4 Estimated GFR > 60 POC Glucose 103 117 H Fasting Glucose 102 H Calcium 8.0 L Total Bilirubin 0.7 AST 46 H D ALT 12 Alkaline Phosphatase 75 Total Protein 6.0 L Albumin 2.4 L Assessment and Plan (1) Acute respiratory failure: Status: Acute (2) Diastolic CHF with preserved left ventricular function, NYHA class 2: Status: Acute (3) Sacral decubitus ulcer: Status: Acute (4) PAF (paroxysmal atrial fibrillation): Status: Acute Plan 66-year-old F sent in from [facility], PMHx of alcoholic cirrhosis, dementia, schizoaffective disorder admitted for acute?exacerbation of underlying congestive heart failure further complicated by AF/RVR, COPD exacerbation and development of angioedema requiring intubation for ventilatory support on 11/27 extubated 11/29. 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 HFpEF, [id number] - continue metoprolol + spironolactone - good response to diuresis; BNP [phone] 3.Stage IV coccygeal decubitus ulcer -operative debridement 12/28 and 12/31/21 - arrange VAC services at [facility], will need [facility] 3.Paroxysmal Atrial FibriLATION - NSR this am - continue metoprolol/ digoxin - anticoagulated with apixaban 4. HTN -acceptable control on current therapies -metoprolol/spironolactone/amlodipine 5. DMII - acceptable control on current therapies - correction-dose lispro 6.Schizoaffective disorder - restarted haloperidol - add back Hydroxyzine # VTE ppx - apixaban # dispo - plan return to [facility] once wound care plan in place Quality Stroke Does the patient have a stroke diagnosis?: No VTE Prior VTE?: No VTE Risk Level:: Medical - moderate - high VTE Device Contraindication: Treatment Not Indicated VTE Drug Contraindication: N/A - Med Ordered
[2022-01-03 16:26] LABS: Glucose, Whole Blood 132 mg/dL (60-115)
[2022-01-03] MEDS: Morphine Sulfate 4 MG/ML CARTRIDGE IVPUSH (19:25)
[2022-01-03 20:13] LABS: Glucose, Whole Blood 162 mg/dL (60-115)
[2022-01-03] MEDS: Insulin Lispro 100 UNIT/ML 3 ML VIAL SUBCUT (21:42)
[2022-01-04] MEDS: 0.9 % Sodium Chloride Flush 3 ML SYRINGE IVFLUSH ×2 (00:37→10:12)
[2022-01-04] MEDS: ondansetron HCL 4 MG/2 ML VIAL IVPUSH (02:38)
[2022-01-04 02:53] VITALS: BP 121/44; PULSE 74; RESP 20; TEMP 36.6; O2SAT 90
[2022-01-04 05:35] VITALS: BMI 41.3
[2022-01-04 06:20] LABS: MANUAL DIFF FLAG NO
[2022-01-04 06:34] LABS: Basophils Absolute Auto 0.1 X10*3/uL (0.0-0.2); Basophils Percent Auto 0.7 % (0-2); Eosinophils Absolute Auto 0.2 X10*3/uL (0.0-0.4); Eosinophils Percent Auto 1.5 % (0-4); Hematocrit 33.7 % (37.0-47.0); Hemoglobin 10.2 g/dl (12.0-16.0); Imm Gran Abs Auto 0.62 X10*3/uL (0.00-0.03); Imm Gran Pct Auto 4.1 % (0.0-0.4); Lymphocytes Absolute Auto 1.7 X10*3/uL (1.2-4.9); Lymphocytes Percent Auto 11.2 % (20-40); Mean Corpuscular HGB Conc 30.3 g/dl (31.0-35.0); Mean Corpuscular Hemoglobin 23.2 pg (27.0-33.0); Mean Corpuscular Volume 76.6 fL (80.0-98.0); Mean Platelet Volume 9.7 fL (9.4-12.3); Monocytes Absolute Auto 1.4 X10*3/uL (0.1-1.2); Monocytes Percent Auto 9.5 % (2-11); Neutrophils Absolute Auto 11.1 x10*3/uL (2.0-8.3); Platelet Count 460 X10*3/uL (160-400); Red Cell Distribution Width 28.1 % (11.0-16.0); White Blood Count 15.2 X10*3/uL (4.8-10.8)
[2022-01-04 06:56] LABS: Alanine Aminotransferase 8 U/L (0-31); Albumin Level 2.7 g/dL (3.5-5.0); Alkaline Phosphatase 78 U/L (39-117); Anion Gap 12 (12-20); Aspartate Amino Transferase 18 U/L (5-31); Bilirubin Total 0.6 mg/dL (0.0-1.0); Blood Urea Nitrogen 4 mg/dL (9-16); Calcium 8.3 mg/dL (8.4-10.2); Carbon Dioxide 35 mmol/L (22-29); Chloride 94 mmol/L (96-108); Creatinine Clr Calc Pharmacy 139.6; Estimated Glomerular Filt Rate > 60; Glucose Fasting 83 mg/dL (60-99); Potassium 3.8 mmol/L (3.3-5.1); Sodium 137 mmol/L (135-145); Total Protein 5.4 g/dL (6.5-8.0)
[2022-01-04 07:33] VITALS: BP 116/70; PULSE 72; RESP 18; TEMP 36.7; O2SAT 93
[2022-01-04 07:38] LABS: Glucose, Whole Blood 97 mg/dL (60-115)
--- NOTE | 2022-01-04 07:59 | PM.PNGS ---
Subjective Subjective Date of Service: 01/04/22 Patient reports: no new complaints Physical Exam Vital Signs: Vital Signs: Last Vital Signs Temp 98.0 F 01/04/22 07:33 Pulse 72 01/04/22 07:33 Resp 18 01/04/22 07:33 BP 116/70 01/04/22 07:33 Pulse Ox 93 01/04/22 07:33 Oxygen Flow Rate 3 12/30/21 13:00 BMI result Body Mass Index 41.3 Resp: Other: Breathing comfortably with nasal O2 Back/Spine/Pelvis: Other: Wound VAC in place, no surrounding erythema identified. No evidence of feculent output from VAC canister. Objective Data Active Medications Acetaminophen (Acetaminophen 325 Mg Tablet) 650 mg PO Q6H PRN PRN Reason: Fever Last Admin: 12/30/21 11:57 Dose: 650 mg Documented by: CHRISTIANO Amlodipine Besylate (Amlodipine Besylate 10 Mg Tablet) 10 mg PO DAILY [facility]; Protocol Last Admin: 01/03/22 10:35 Dose: 10 mg Documented by: DONTRELL Apixaban (Apixaban 5 Mg Tablet) 5 mg PO BID [facility] Last Admin: 01/03/22 21:40 Dose: 5 mg Documented by: LIZA Atorvastatin Calcium (Atorvastatin Calcium 10 Mg Tablet) 10 mg PO DAILY [facility] Last Admin: 01/03/22 10:36 Dose: 10 mg Documented by: DONTRELL Digoxin (Digoxin 0.25 Mg Tablet) 0.25 mg PO DAILY [facility] Last Admin: 01/03/22 10:35 Dose: 0.25 mg Documented by: DONTRELL Haloperidol (Haloperidol 5 Mg Tablet) 5 mg PO BID [facility] Last Admin: 01/03/22 21:40 Dose: 5 mg Documented by: LIZA Hydroxyzine HCl (Hydroxyzine Hcl 25 Mg Tablet) 25 mg PO QID [facility] Last Admin: 01/03/22 21:40 Dose: 25 mg Documented by: LIZA Insulin Human Lispro (Insulin Lispro 100 Unit/Ml 3 Ml Vial) 0 unit SUBCUT QIDACHS [facility]; Protocol Last Admin: 01/03/22 21:42 Dose: 4 unit Documented by: LIZA Metoprolol Tartrate (Metoprolol Tartrate 25 Mg Tablet) 75 mg PO BID [facility]; Protocol Last Admin: 01/03/22 21:41 Dose: 75 mg Documented by: LIZA Metoprolol Tartrate (Metoprolol Tartrate 5 Mg/5 Ml Vial) 5 mg IVPUSH Q6H PRN PRN Reason: Heart Rate >100 Last Admin: 01/01/22 00:43 Dose: 5 mg Documented by: DOROTHY Morphine Sulfate (Morphine Sulfate 4 Mg/Ml Cartridge) 4 mg IVPUSH ONCE PRN; Protocol PRN Reason: Pain, Severe (Pain Scale 7-10) Last Admin: 01/01/22 00:42 Dose: 4 mg Documented by: DOROTHY Morphine Sulfate (Morphine Sulfate 4 Mg/Ml Cartridge) 4 mg IVPUSH Q4H PRN; Protocol PRN Reason: Pain, Severe (Pain Scale 7-10) Last Admin: 01/03/22 19:25 Dose: 4 mg Documented by: LIZA Multivitamins/Vitamin C (Multivitamin Tablet) 1 tab PO DAILY [facility] Last Admin: 01/03/22 10:36 Dose: 1 tab Documented by: DONTRELL Nystatin (Nystatin Powder 15 Gm Bottle) 1 appl TOPICAL TID [facility]; Protocol Last Admin: 01/03/22 21:53 Dose: Not Given Documented by: LIZA Non-Admin Reason: Patient Refused Ondansetron HCl (Ondansetron Hcl 4 Mg/2 Ml Vial) 4 mg IVPUSH Q8H PRN PRN Reason: Nausea Last Admin: 01/04/22 02:38 Dose: 4 mg Documented by: JONATAN Pharmacy Consult (Consult Rx Perform Med Rec) 1 each MISCELLANE ONCE PRN PRN Reason: Consult order Sodium Chloride (0.9 % Sodium Chloride Flush 3 Ml Syringe) 3 ml IVFLUSH QSHIFT [facility] Last Admin: 01/04/22 00:37 Dose: 3 ml Documented by: JONATAN Spironolactone (Spironolactone 25 Mg Tablet) 25 mg PO DAILY [facility]; Protocol Last Admin: 01/03/22 10:36 Dose: 25 mg Documented by: DONTRELL Labs CBC & Chem 7: 01/04/22 05:42 01/04/22 05:42 Labs: Laboratory Results - last 24 hr 01/03/22 01/03/22 01/03/22 06:58 11:32 16:06 MCV 76.4 L MCH 22.7 L MCHC 29.7 L RDW 28.7 H Plt Count 300 MPV Immature Gran % (Auto) 4.6 H Neut % (Auto) 76.7 H Lymph % (Auto) 10.3 L [place] % (Auto) 6.9 Eos % (Auto) 0.9 Baso % (Auto) 0.6 Lymph # (Auto) 1.6 [place] # (Auto) 1.0 Eos # (Auto) 0.1 Baso # (Auto) 0.1 Abs Immat Gran (auto) 0.69 H Absolute Neuts (auto) 11.5 H Absolute Nucleated RBC 0.030 H Nucleated RBC % (auto) 0.2 Smear Tech's Comments VERIFIED Anion Gap Estim Creat Clear Calc Estimated GFR POC Glucose 117 H 132 H Fasting Glucose Calcium Total Bilirubin AST ALT Alkaline Phosphatase Total Protein Albumin 01/03/22 01/04/22 01/04/22 19:56 05:42 05:42 MCV 76.6 L MCH 23.2 L MCHC 30.3 L RDW 28.1 H Plt Count 460 H D MPV 9.7 Immature Gran % (Auto) 4.1 H Neut % (Auto) 73.0 Lymph % (Auto) 11.2 L [place] % (Auto) 9.5 Eos % (Auto) 1.5 Baso % (Auto) 0.7 Lymph # (Auto) 1.7 [place] # (Auto) 1.4 H Eos # (Auto) 0.2 Baso # (Auto) 0.1 Abs Immat Gran (auto) 0.62 H Absolute Neuts (auto) 11.1 H Absolute Nucleated RBC 0.000 Nucleated RBC % (auto) 0.0 Smear Tech's Comments Anion Gap 12 Estim Creat Clear Calc 139.6 Estimated GFR > 60 POC Glucose 162 H Fasting Glucose 83 Calcium 8.3 L Total Bilirubin 0.6 AST 18 D ALT 8 Alkaline Phosphatase 78 Total Protein 5.4 L Albumin 2.7 L 01/04/22 07:34 MCV MCH MCHC RDW Plt Count MPV Immature Gran % (Auto) Neut % (Auto) Lymph % (Auto) [place] % (Auto) Eos % (Auto) Baso % (Auto) Lymph # (Auto) [place] # (Auto) Eos # (Auto) Baso # (Auto) Abs Immat Gran (auto) Absolute Neuts (auto) Absolute Nucleated RBC Nucleated RBC % (auto) Smear Tech's Comments Anion Gap Estim Creat Clear Calc Estimated GFR POC Glucose 97 Fasting Glucose Calcium Total Bilirubin AST ALT Alkaline Phosphatase Total Protein Albumin Procedures Date of Service Date of Service: 01/04/22 Progress Note: A&P Assessment and plan (1) Sacral decubitus ulcer: Status: Acute Plan 66-year-old female patient with multiple medical problems with a large sacral decubitus ulcer currently managed with wound VAC. wound VAC appears to be holding nicely. Will plan on VAC change tomorrow with possible further debridement at the bedside as necessary. Continue pressure management and nutritional support. Fall Risk Details Current Medications: Current Medications Acetaminophen (Acetaminophen 325 Mg Tablet) 650 mg PO Q6H PRN PRN Reason: Fever Last Admin: 12/30/21 11:57 Dose: 650 mg Documented by: Amlodipine Besylate (Amlodipine Besylate 10 Mg Tablet) 10 mg PO DAILY [facility]; Protocol Last Admin: 01/03/22 10:35 Dose: 10 mg Documented by: Apixaban (Apixaban 5 Mg Tablet) 5 mg PO BID [facility] Last Admin: 01/03/22 21:40 Dose: 5 mg Documented by: Atorvastatin Calcium (Atorvastatin Calcium 10 Mg Tablet) 10 mg PO DAILY [facility] Last Admin: 01/03/22 10:36 Dose: 10 mg Documented by: Digoxin (Digoxin 0.25 Mg Tablet) 0.25 mg PO DAILY [facility] Last Admin: 01/03/22 10:35 Dose: 0.25 mg Documented by: Haloperidol (Haloperidol 5 Mg Tablet) 5 mg PO BID [facility] Last Admin: 01/03/22 21:40 Dose: 5 mg Documented by: Hydroxyzine HCl (Hydroxyzine Hcl 25 Mg Tablet) 25 mg PO QID [facility] Last Admin: 01/03/22 21:40 Dose: 25 mg Documented by: Insulin Human Lispro (Insulin Lispro 100 Unit/Ml 3 Ml Vial) 0 unit SUBCUT QIDACHS [facility]; Protocol Last Admin: 01/03/22 21:42 Dose: 4 unit Documented by: Metoprolol Tartrate (Metoprolol Tartrate 25 Mg Tablet) 75 mg PO BID [facility]; Protocol Last Admin: 01/03/22 21:41 Dose: 75 mg Documented by: Metoprolol Tartrate (Metoprolol Tartrate 5 Mg/5 Ml Vial) 5 mg IVPUSH Q6H PRN PRN Reason: Heart Rate >100 Last Admin: 01/01/22 00:43 Dose: 5 mg Documented by: Morphine Sulfate (Morphine Sulfate 4 Mg/Ml Cartridge) 4 mg IVPUSH ONCE PRN; Protocol PRN Reason: Pain, Severe (Pain Scale 7-10) Last Admin: 01/01/22 00:42 Dose: 4 mg Documented by: Morphine Sulfate (Morphine Sulfate 4 Mg/Ml Cartridge) 4 mg IVPUSH Q4H PRN; Protocol PRN Reason: Pain, Severe (Pain Scale 7-10) Last Admin: 01/03/22 19:25 Dose: 4 mg Documented by: Multivitamins/Vitamin C (Multivitamin Tablet) 1 tab PO DAILY [facility] Last Admin: 01/03/22 10:36 Dose: 1 tab Documented by: Nystatin (Nystatin Powder 15 Gm Bottle) 1 appl TOPICAL TID [facility]; Protocol Last Admin: 01/03/22 21:53 Dose: Not Given Documented by: Ondansetron HCl (Ondansetron Hcl 4 Mg/2 Ml Vial) 4 mg IVPUSH Q8H PRN PRN Reason: Nausea Last Admin: 01/04/22 02:38 Dose: 4 mg Documented by: Pharmacy Consult (Consult Rx Perform Med Rec) 1 each MISCELLANE ONCE PRN PRN Reason: Consult order Sodium Chloride (0.9 % Sodium Chloride Flush 3 Ml Syringe) [facility] Last Admin: 01/04/22 00:37 Dose: 3 ml Documented by: Spironolactone (Spironolactone 25 Mg Tablet) 25 mg PO DAILY [facility]; Protocol Last Admin: 01/03/22 10:36 Dose: 25 mg Documented by: Time Spent With Patient Time: Total time spent is greater than 50% in coordination of care (as documented) at patient's floor/unit and/or counseling patient: Time with patient: 15 - 24 minutes Quality Stroke Does the patient have a stroke diagnosis?: No VTE Prior VTE?: No VTE Risk Level:: Medical - moderate - high VTE Device Contraindication: Treatment Not Indicated VTE Drug Contraindication: N/A - Med Ordered
[2022-01-04] MEDS: Morphine Sulfate 4 MG/ML CARTRIDGE IVPUSH ×2 (08:38→17:11)
--- NOTE | 2022-01-04 10:08 | HO.PM.IMPN ---
Subjective Subjective Date of Service: 01/04/22 Interval History: no acute issues overnight Review of Systems denies chest pain Breathing improved ...still mild SOB Denies nausea vomiting diarrhea Physical Exam Vital Signs: Vital Signs: Last Vital Signs Temp 98.0 F 01/04/22 07:33 Pulse 72 01/04/22 07:33 Resp 18 01/04/22 07:33 BP 116/70 01/04/22 07:33 Pulse Ox 93 01/04/22 07:33 Oxygen Flow Rate 3 12/30/21 13:00 BMI result Body Mass Index 41.3 Const: Other: no acute distress Resp: Other: scattered expiratory wheezes all martinez Cardio: Other: irregularly irregular; no S4 positive S1-S2 no S3 without murmurs or gallops Skin: Other: stage III sacral decub Extrem: Other: no edema bilaterally Objective Data Active Medications Acetaminophen (Acetaminophen 325 Mg Tablet) 650 mg PO Q6H PRN PRN Reason: Fever Last Admin: 12/30/21 11:57 Dose: 650 mg Documented by: CHRISTIANO Amlodipine Besylate (Amlodipine Besylate 10 Mg Tablet) 10 mg PO DAILY [facility]; Protocol Last Admin: 01/03/22 10:35 Dose: 10 mg Documented by: DONTRELL Apixaban (Apixaban 5 Mg Tablet) 5 mg PO BID [facility] Last Admin: 01/03/22 21:40 Dose: 5 mg Documented by: LIZA Atorvastatin Calcium (Atorvastatin Calcium 10 Mg Tablet) 10 mg PO DAILY [facility] Last Admin: 01/03/22 10:36 Dose: 10 mg Documented by: DONTRELL Digoxin (Digoxin 0.25 Mg Tablet) 0.25 mg PO DAILY [facility] Last Admin: 01/03/22 10:35 Dose: 0.25 mg Documented by: DONTRELL Haloperidol (Haloperidol 5 Mg Tablet) 5 mg PO BID [facility] Last Admin: 01/03/22 21:40 Dose: 5 mg Documented by: LIZA Hydroxyzine HCl (Hydroxyzine Hcl 25 Mg Tablet) 25 mg PO QID [facility] Last Admin: 01/03/22 21:40 Dose: 25 mg Documented by: LIZA Insulin Human Lispro (Insulin Lispro 100 Unit/Ml 3 Ml Vial) 0 unit SUBCUT QIDACHS [facility]; Protocol Last Admin: 01/04/22 08:38 Dose: Not Given Documented by: CHRISTIANO Non-Admin Reason: No Insulin Coverage Metoprolol Tartrate (Metoprolol Tartrate 25 Mg Tablet) 75 mg PO BID [facility]; Protocol Last Admin: 01/03/22 21:41 Dose: 75 mg Documented by: LIZA Metoprolol Tartrate (Metoprolol Tartrate 5 Mg/5 Ml Vial) 5 mg IVPUSH Q6H PRN PRN Reason: Heart Rate >100 Last Admin: 01/01/22 00:43 Dose: 5 mg Documented by: DOROTHY Morphine Sulfate (Morphine Sulfate 4 Mg/Ml Cartridge) 4 mg IVPUSH ONCE PRN; Protocol PRN Reason: Pain, Severe (Pain Scale 7-10) Last Admin: 01/04/22 08:38 Dose: 4 mg Documented by: CHRISTIANO Morphine Sulfate (Morphine Sulfate 4 Mg/Ml Cartridge) 4 mg IVPUSH Q4H PRN; Protocol PRN Reason: Pain, Severe (Pain Scale 7-10) Last Admin: 01/03/22 19:25 Dose: 4 mg Documented by: LIZA Multivitamins/Vitamin C (Multivitamin Tablet) 1 tab PO DAILY [facility] Last Admin: 01/03/22 10:36 Dose: 1 tab Documented by: DONTRELL Nystatin (Nystatin Powder 15 Gm Bottle) 1 appl TOPICAL TID [facility]; Protocol Last Admin: 01/03/22 21:53 Dose: Not Given Documented by: LIZA Non-Admin Reason: Patient Refused Ondansetron HCl (Ondansetron Hcl 4 Mg/2 Ml Vial) 4 mg IVPUSH Q8H PRN PRN Reason: Nausea Last Admin: 01/04/22 02:38 Dose: 4 mg Documented by: JONATAN Pharmacy Consult (Consult Rx Perform Med Rec) 1 each MISCELLANE ONCE PRN PRN Reason: Consult order Sodium Chloride (0.9 % Sodium Chloride Flush 3 Ml Syringe) 3 ml IVFLUSH QSHIFT [facility] Last Admin: 01/04/22 00:37 Dose: 3 ml Documented by: JONATAN Spironolactone (Spironolactone 25 Mg Tablet) 25 mg PO DAILY [facility]; Protocol Last Admin: 01/03/22 10:36 Dose: 25 mg Documented by: DONTRELL Labs CBC & Chem 7: 01/04/22 05:42 01/04/22 05:42 Labs: Laboratory Results - last 24 hr 01/03/22 01/03/22 01/03/22 11:32 16:06 19:56 MCV MCH MCHC RDW Plt Count MPV Immature Gran % (Auto) Neut % (Auto) Lymph % (Auto) [place] % (Auto) Eos % (Auto) Baso % (Auto) Lymph # (Auto) [place] # (Auto) Eos # (Auto) Baso # (Auto) Abs Immat Gran (auto) Absolute Neuts (auto) Absolute Nucleated RBC Nucleated RBC % (auto) Anion Gap Estim Creat Clear Calc Estimated GFR POC Glucose 117 H 132 H 162 H Fasting Glucose Calcium Total Bilirubin AST ALT Alkaline Phosphatase Total Protein Albumin 01/04/22 01/04/22 01/04/22 05:42 05:42 07:34 MCV 76.6 L MCH 23.2 L MCHC 30.3 L RDW 28.1 H Plt Count 460 H D MPV 9.7 Immature Gran % (Auto) 4.1 H Neut % (Auto) 73.0 Lymph % (Auto) 11.2 L [place] % (Auto) 9.5 Eos % (Auto) 1.5 Baso % (Auto) 0.7 Lymph # (Auto) 1.7 [place] # (Auto) 1.4 H Eos # (Auto) 0.2 Baso # (Auto) 0.1 Abs Immat Gran (auto) 0.62 H Absolute Neuts (auto) 11.1 H Absolute Nucleated RBC 0.000 Nucleated RBC % (auto) 0.0 Anion Gap 12 Estim Creat Clear Calc 139.6 Estimated GFR > 60 POC Glucose 97 Fasting Glucose 83 Calcium 8.3 L Total Bilirubin 0.6 AST 18 D ALT 8 Alkaline Phosphatase 78 Total Protein 5.4 L Albumin 2.7 L Assessment and Plan (1) Sacral decubitus ulcer: Status: Acute (2) PAF (paroxysmal atrial fibrillation): Status: Acute (3) Schizoaffective disorder: Status: Acute Plan 66-year-old F sent in from [facility], PMHx of alcoholic cirrhosis, dementia, schizoaffective disorder admitted for acute?exacerbation of underlying congestive heart failure further complicated by AF/RVR, COPD exacerbation and development of angioedema requiring intubation for ventilatory support on 11/27 extubated 1/17. 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 HFpEF, [id number] - continue metoprolol + spironolactone - good response to diuresis; BNP [phone] 3.Stage IV coccygeal decubitus ulcer -operative debridement 12/28 and 12/31/21 -wound vac change planned for 01/05 by surgery -PICC line today - arrange VAC services at [facility], will need [facility] 3.Paroxysmal Atrial FibriLATION - NSR this am - continue metoprolol/ digoxin - anticoagulated with apixaban 4. HTN -acceptable control on current therapies -metoprolol/spironolactone/amlodipine 5. DMII - acceptable control on current therapies - correction-dose lispro 6.Schizoaffective disorder - restarted haloperidol - add back Hydroxyzine - moving back to baseline # VTE ppx - apixaban # dispo - plan return to [facility] once wound care plan in place Quality Stroke Does the patient have a stroke diagnosis?: No VTE Prior VTE?: No VTE Risk Level:: Medical - moderate - high VTE Device Contraindication: Treatment Not Indicated VTE Drug Contraindication: N/A - Med Ordered
[2022-01-04] MEDS: Metoprolol Tartrate 25 MG TABLET 75 MG PO ×2 (10:13→20:13)
[2022-01-04] MEDS: Apixaban 5 MG TABLET PO ×2 (10:13→20:13)
[2022-01-04] MEDS: Digoxin 0.25 MG TABLET PO (10:13)
[2022-01-04] MEDS: hydrOXYzine HCL 25 MG TABLET PO ×4 (10:13→20:13)
[2022-01-04] MEDS: Multivitamin TABLET 1 TAB PO (10:14)
[2022-01-04] MEDS: HaloperidoL 5 MG TABLET PO ×2 (10:14→20:13)
[2022-01-04] MEDS: Spironolactone 25 MG TABLET PO (10:14)
[2022-01-04] MEDS: Atorvastatin Calcium 10 MG TABLET PO (10:14)
[2022-01-04] MEDS: amLODIPine Besylate 10 MG TABLET PO (10:14)
[2022-01-04] MEDS: Nystatin Powder 15 GM BOTTLE 1 APPL TOPICAL ×3 (10:15→20:13)
[2022-01-04 11:36] LABS: Transferrin 156 mg/dL (188-341)
[2022-01-04 12:00] VITALS: PULSE 88; RESP 18; TEMP 36.5; O2SAT 93
[2022-01-04 12:38] LABS: Glucose, Whole Blood 159 mg/dL (60-115)
--- NOTE | 2022-01-04 14:57 | MHC.SLORD ---
Speech Language Pathology Order Status: Attempted to see Pt this a.m., Pt sleeping, lethargic when briefly roused, not appropriate for swallow trials at this time. Will continue to follow.
[2022-01-04 15:32] VITALS: BP 118/46; PULSE 70; RESP 14; TEMP 37.1; O2SAT 85
[2022-01-04 15:42] LABS: Glucose, Whole Blood 140 mg/dL (60-115)
[2022-01-04 19:37] VITALS: BP 132/48; PULSE 70; RESP 16; TEMP 37.1; O2SAT 90
[2022-01-04 19:41] LABS: Glucose, Whole Blood 133 mg/dL (60-115)
[2022-01-04] MEDS: Morphine Sulfate 4 MG/ML CARTRIDGE IM (23:12)
[2022-01-05] VITALS (7 sets, daily range): BP systolic 108–121; BP diastolic 44–58; PULSE 62–73; RESP 14–20; TEMP 36–37.1; O2SAT 81–99; BMI 41.3
[2022-01-05 06:09] LABS: MANUAL DIFF FLAG NO
[2022-01-05 06:13] LABS: Basophils Absolute Auto 0.1 X10*3/uL (0.0-0.2); Basophils Percent Auto 0.6 % (0-2); Eosinophils Absolute Auto 0.2 X10*3/uL (0.0-0.4); Eosinophils Percent Auto 1.3 % (0-4); Hematocrit 32.8 % (37.0-47.0); Hemoglobin 9.4 g/dl (12.0-16.0); Imm Gran Abs Auto 0.54 X10*3/uL (0.00-0.03); Imm Gran Pct Auto 3.4 % (0.0-0.4); Lymphocytes Absolute Auto 1.5 X10*3/uL (1.2-4.9); Lymphocytes Percent Auto 9.7 % (20-40); Mean Corpuscular HGB Conc 28.7 g/dl (31.0-35.0); Mean Corpuscular Hemoglobin 21.9 pg (27.0-33.0); Mean Corpuscular Volume 76.3 fL (80.0-98.0); Mean Platelet Volume 9.7 fL (9.4-12.3); Monocytes Absolute Auto 1.3 X10*3/uL (0.1-1.2); Monocytes Percent Auto 8.1 % (2-11); Neutrophils Absolute Auto 12.1 x10*3/uL (2.0-8.3); Neutrophils Percent Auto 76.9 % (45-73); Platelet Count 505 X10*3/uL (160-400); Red Cell Distribution Width 28.1 % (11.0-16.0); White Blood Count 15.7 X10*3/uL (4.8-10.8)
[2022-01-05 06:32] LABS: Alanine Aminotransferase 9 U/L (0-31); Albumin Level 2.5 g/dL (3.5-5.0); Alkaline Phosphatase 71 U/L (39-117); Anion Gap 10 (12-20); Aspartate Amino Transferase 12 U/L (5-31); Bilirubin Total 0.6 mg/dL (0.0-1.0); Blood Urea Nitrogen 8 mg/dL (9-16); Calcium 8.1 mg/dL (8.4-10.2); Carbon Dioxide 36 mmol/L (22-29); Chloride 95 mmol/L (96-108); Estimated Glomerular Filt Rate > 60; Glucose Fasting 108 mg/dL (60-99); Potassium 3.9 mmol/L (3.3-5.1); Sodium 137 mmol/L (135-145); Total Protein 5.1 g/dL (6.5-8.0)
[2022-01-05 07:20] LABS: Glucose, Whole Blood 121 mg/dL (60-115)
[2022-01-05] MEDS: LORazepam 2 MG/ML VIAL 1 MG IM (07:56)
[2022-01-05] MEDS: Haloperidol Lactate 5 MG/ML VIAL IM (07:57)
[2022-01-05] MEDS: Lidocaine HCl 1 % 20 ML VIAL 10 ML INFILTRATI (08:57)
[2022-01-05] MEDS: hydrOXYzine HCL 25 MG TABLET PO ×4 (09:12→21:19)
[2022-01-05] MEDS: Atorvastatin Calcium 10 MG TABLET PO (09:13)
[2022-01-05] MEDS: Metoprolol Tartrate 25 MG TABLET 75 MG PO ×2 (09:15→21:19)
[2022-01-05] MEDS: Spironolactone 25 MG TABLET PO (09:16)
[2022-01-05] MEDS: amLODIPine Besylate 10 MG TABLET PO (09:16)
[2022-01-05] MEDS: Multivitamin TABLET 1 TAB PO (09:16)
[2022-01-05] MEDS: Apixaban 5 MG TABLET PO ×2 (09:17→21:19)
[2022-01-05] MEDS: Digoxin 0.25 MG TABLET PO (09:17)
[2022-01-05] MEDS: Morphine Sulfate 4 MG/ML CARTRIDGE IVPUSH ×3 (09:25→23:16)
[2022-01-05] MEDS: Nystatin Powder 15 GM BOTTLE 1 APPL TOPICAL ×3 (09:29→21:19)
--- NOTE | 2022-01-05 10:29 | MHC.CLN ---
F/U PO INTAKE REMAINS POOR DIET RX: GRD M/S-PREVIOUSLY LIBERALIZED TO REGULAR DIET TO INCREASE VARIETY PT RECEIVING ENSURE BID AND LELAND BID TO PROVIDE 860KCALS, 45G PROTEIN FOR INCREASE KCALS AND PROMOTE WOUND HEALING CONTINUE STRICT PO MONITORING
[2022-01-05 11:15] LABS: Glucose, Whole Blood 143 mg/dL (60-115)
--- NOTE | 2022-01-05 11:15 | PC.NURSE ---
Addendum entered by Candace Robledo RN 01/06/22 08:47: Plan was to keep the vac in place until further discussion with care team. Addendum entered by Candace Robledo RN 01/05/22 12:41: This nurse made the attending and Dr. Jiménez informed of wound progress and is awaiting a plan from them. Original Note: Wound assessment completed. Patient has a stage 4 pressure ulcer to sacrum/coccyx with a wound vac. Wound vac changed today-very foul smelling with deep wound about 9 cm in depth with necrotic sheldon subcutaneous tissue. The bilateral buttock tissue is granulated. The wound has been debrided [address] Jiménez.
--- NOTE | 2022-01-05 11:21 | MHC.SLORD ---
Speech Language Pathology Order Status: Patient unavailable this morning, receiving wound care- Per RD note, PO intake is poor. She is on [facility] (NDD2) solids/THIN liquids. [employer] will continue to follow.
--- NOTE | 2022-01-05 13:29 | P.CONWO_ITS ---
History of Present Illness Data of Consult Service Date: 01/05/22 Requesting physician: Mike Barnhart Primary Care Provider: Rony Hogan DO HPI Reason for consult: stage iv pressure ulcer 66-year-old F from [facility], PMHx of alcoholic cirrhosis, dementia, schizoaffective disorder admitted for acute?exacerbation of underlying congestive heart failure further complicated by AF/RVR, COPD exacerbation and development of angioedema requiring intubation for ventilatory support on 11/27 extubated 11/29.? 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 Jiménez and taken to the operating room on 12/28 and 218 for surgical debridement. After the 12/31 visit, a wound VAC was placed and this has been changed frequently. The patient has been on a pressure relief bed, has been moving around more, shifting postition attempting to increase p.o. diet but still unfortunately the wound seems to worsen especially centrally. Despite all the care there is continuing necrotic material building up juxtaposed to nicer superficial granulation tissue. There was a concern that fecal contamination was preventing this wound from healing faster and causing the worsening of its depth and quality and a discussion was had with the patient's guardian to create a diverting colostomy. Guardian refused. Unsure exactly why his concerns. As result continued with antibiotics p.o. diet as well as the wound VAC. Wound care consultation formally requested. Review of Systems Review of Systems: Yes Unobtainable due to mental status Constitutional: Constitutional: Reports as per HPI [facility] Medical History Alcoholic cirrhosis of liver Anemia Asthma CKD (chronic kidney disease) Crohn's disease Diastolic CHF with preserved left ventricular function, NYHA class 2 Fever of unknown origin Hyponatremia Hyponatremia Schizoaffective disorder Functional capacity: bed bound Surgical History No pertinent past surgical history Social History Household Members: None Housing: House Patient Tobacco Use Status: Current everyday Tobacco user service: No Ebola Risk: Travel/Contact With Anyone From Affected Area/s: No Medical Treatment Received for Symptoms/Illness Related to Travel: No Meds Allergies Allergy/AdvReac Type Severity Reaction Status Date / Time lisinopril Allergy Severe Angioedema Verified 12/02/21 16:07 Sulfa (Sulfonamide Allergy Intermediate HIVES Verified 11/24/21 20:49 Antibiotics) Active Medications: Current Medications Acetaminophen (Acetaminophen 325 Mg Tablet) 650 mg PO Q6H PRN PRN Reason: Fever Last Admin: 12/30/21 11:57 Dose: 650 mg Documented by: Amlodipine Besylate (Amlodipine Besylate 10 Mg Tablet) 10 mg PO DAILY [facility]; Protocol Last Admin: 01/06/22 09:05 Dose: 10 mg Documented by: Apixaban (Apixaban 5 Mg Tablet) 5 mg PO BID [facility] Last Admin: 01/06/22 09:04 Dose: 5 mg Documented by: Atorvastatin Calcium (Atorvastatin Calcium 10 Mg Tablet) 10 mg PO DAILY [facility] Last Admin: 01/06/22 09:04 Dose: 10 mg Documented by: Digoxin (Digoxin 0.25 Mg Tablet) 0.25 mg PO DAILY [facility] Last Admin: 01/06/22 09:04 Dose: 0.25 mg Documented by: Haloperidol (Haloperidol 5 Mg Tablet) 5 mg PO BID [facility] Last Admin: 01/06/22 09:04 Dose: 5 mg Documented by: Hydroxyzine HCl (Hydroxyzine Hcl 25 Mg Tablet) 25 mg PO QID [facility] Last Admin: 01/06/22 09:04 Dose: 25 mg Documented by: Insulin Human Lispro (Insulin Lispro 100 Unit/Ml 3 Ml Vial) 0 unit SUBCUT QIDACHS [facility]; Protocol Last Admin: 01/06/22 09:11 Dose: Not Given Documented by: Metoprolol Tartrate (Metoprolol Tartrate 25 Mg Tablet) 75 mg PO BID [facility]; Protocol Last Admin: 01/06/22 09:01 Dose: 75 mg Documented by: Metoprolol Tartrate (Metoprolol Tartrate 5 Mg/5 Ml Vial) 5 mg IVPUSH Q6H PRN PRN Reason: Heart Rate >100 Last Admin: 01/01/22 00:43 Dose: 5 mg Documented by: Morphine Sulfate (Morphine Sulfate 4 Mg/Ml Cartridge) 4 mg IVPUSH Q4H PRN; Protocol PRN Reason: Pain, Moderate (Pain Scale 4-6 Last Admin: 01/06/22 05:14 Dose: 4 mg Documented by: Multivitamins/Vitamin C (Multivitamin Tablet) 1 tab PO DAILY [facility] Last Admin: 01/06/22 09:04 Dose: 1 tab Documented by: Nystatin (Nystatin Powder 15 Gm Bottle) 1 appl TOPICAL TID [facility]; Protocol Last Admin: 01/05/22 21:19 Dose: 1 appl Documented by: Ondansetron HCl (Ondansetron Hcl 4 Mg/2 Ml Vial) 4 mg IVPUSH Q8H PRN PRN Reason: Nausea Last Admin: 01/04/22 02:38 Dose: 4 mg Documented by: Pharmacy Consult (Consult Rx Perform Med Rec) 1 each MISCELLANE ONCE PRN PRN Reason: Consult order Sodium Chloride (0.9 % Sodium Chloride Flush 3 Ml Sy[facility]) [facility] Admin: 01/06/22 09:11 Dose: 3 ml Documented by: Spironolactone (Spironolactone 25 Mg Tablet) 25 mg PO DAILY [facility]; Protocol Last Admin: 01/06/22 09:03 Dose: 25 mg Documented by: Home Medications Medication Instructions Recorded Confirmed Last Taken Type Saccharomyces boulardii 250 mg 250 mg PO BID 11/25/21 11/25/21 11/24/21 History capsule (Florastor) acetaminophen 325 mg tablet 650 mg PO Q4H PRN 11/25/21 11/25/21 11/23/21 History albuterol sulfate 90 mcg/actuation 2 puff INHALATION Q4H PRN 11/25/21 11/25/21 11/22/21 History aerosol inhaler (ProAir HFA) aluminum-mag hydroxide-simethicone 30 ml PO Q4H PRN 11/25/21 11/25/21 11/16/21 History 200 mg-200 mg-20 mg/5 mL oral susp (Morena-L[place]) atorvastatin 10 mg tablet 1 tab PO DAILY 11/25/21 11/25/21 11/24/21 History azathioprine 50 mg tablet 2 tab PO DAILY 11/25/21 11/25/21 11/24/21 History calcitonin (salmon) 200 1 spray INTRANASAL DAILY 11/25/21 11/25/21 11/24/21 History unit/actuation nasal spray calcium carbonate 600 mg-vitamin 1 tab PO DAILY 11/25/21 11/25/21 11/24/21 History D3 5 mcg (200 unit) tablet (Calcium 600 + D(3)) cranberry fruit 450 mg tablet 450 mg PO BID 11/25/21 11/25/21 11/24/21 History (cranberry) cyclobenzaprine 10 mg tablet 1 tab PO Q24H PRN 11/25/21 11/25/21 11/21/21 History docusate sodium 100 mg tablet 100 mg PO BID 11/25/21 11/25/21 11/24/21 History dulaglutide 1.5 mg/0.5 mL 1.5 mg SUBCUT TU 11/25/21 11/25/21 11/23/21 History subcutaneous pen injector (Trulicity) gabapentin 100 mg capsule 1 cap PO TID 11/25/21 11/25/21 11/24/21 History haloperidol 5 mg tablet 5 mg PO BID 11/25/21 11/25/21 11/24/21 History hydroxyzine HCl 25 mg tablet 25 mg PO QID 11/25/21 11/25/21 11/24/21 History insulin detemir U-100 100 unit/mL 110 unit SUBCUT BID@0630,1630 11/25/21 11/25/21 11/24/21 History (3 mL) subcutaneous pen insulin regular human 100 unit/mL 1 sliding scale dose SUBCUT 11/25/21 11/25/21 11/24/21 History injection solution (Novolin R USEASDIRECTD Regular U-100 Insulin) ipratropium 20 mcg-albuterol 100 1 puff INHALATION BID 11/25/21 11/25/21 0 11/24/21 History mcg/actuation mist for inhalation (Combivent Respimat) lanolin alcohols-mineral 1 appl TOPICAL DAILY 11/25/21 11/25/21 Unknown History oil-w.petrolatum-ceresin topical cream (Minerin Creme) lisinopril 5 mg tablet 5 mg PO DAILY 11/25/21 11/25/21 11/24/21 History menthol 5 % topical patch (Bengay 1 patch TOPICAL DAILY PRN 11/25/21 11/25/21 Unknown History Ultra Strength (menthol)) metformin 1,000 mg tablet 1,000 mg PO BID 11/25/21 11/25/21 11/24/21 History mirtazapine 15 mg tablet 1 tab PO BEDTIME 11/25/21 11/25/21 11/23/21 History multivitamin 1 tab PO DAILY 11/25/21 11/25/21 11/24/21 History nicotine 7 mg/24 hr daily 1 patch TRANSDERMAL Q24H PRN 11/25/21 11/25/21 Unknown History transdermal patch nitrofurantoin macrocrystal 50 mg 1 cap PO BEDTIME 11/25/21 11/25/21 11/23/21 History capsule nitroglycerin 0.4 mg sublingual 0.4 mg SUBLINGUAL Q5M PRN 11/25/21 11/25/21 Unknown History tablet nystatin 100,000 unit/gram topical 1 appl TOPICAL BID 11/25/21 11/25/21 Unknown History powder omeprazole 20 mg tablet,delayed 20 mg PO BID 11/25/21 11/25/21 11/24/21 History release oxycodone-acetaminophen 5 mg-325 1 tab PO QID 11/25/21 11/25/21 11/24/21 History mg tablet sennosides 8.6 mg tablet (senna) 8.6 mg PO DAILY 11/25/21 11/25/21 11/24/21 History sennosides 8.6 mg tablet (senna) 17.2 mg PO BEDTIME 11/25/21 11/25/21 11/23/21 History sitagliptin 100 mg tablet (Januvia) 100 mg PO DAILY 11/25/21 11/25/21 11/24/21 History sodium chloride 0.65 % nasal spray 2 spray INTRANASAL Q4H PRN 11/25/21 11/25/21 11/24/21 History aerosol (Deep Sea Nasal) sodium chloride 1,000 mg soluble 1,000 mg PO TID 11/25/21 11/25/21 11/24/21 History tablet tolterodine 4 mg capsule,extended 4 mg PO DAILY 11/25/21 11/25/21 11/24/21 History release 24 hr Physical Exam Vital Signs and Narrative: Vital Signs: Last Vital Signs Temp 97.8 F 01/06/22 10:59 Pulse 63 01/06/22 10:59 Resp 19 01/06/22 10:59 BP 107/43 L 01/06/22 10:59 Pulse Ox 96 01/06/22 10:59 Oxygen Flow Rate 3 12/30/21 13:00 BMI result Body Mass Index 40.9 Const: Other: Patient is alert awake relatively cooperative a little confused a little disoriented Skin: Other: Patient has a very large sacral wound. Going towards the buttock cheeks it involves full thickness into the subcutaneous fatty tissue. This area extending about 15 cm both directions has good granulation tissue. Right over the bony spine E prominence and going deep there is necrotic tissue gangrenous tissue extending deep and fall are to wards the bone and going superiorly. This is the area that seems to be expanding and worsening unfortunately. The other area of her back and buttocks look fine. Results Labs CBC and Chem 7: 01/05/22 05:52 01/05/22 05:52 Labs: Laboratory Results - last 24 hr 01/05/22 01/05/22 01/06/22 15:25 19:30 07:01 POC Glucose 235 H 130 H 120 H 01/06/22 11:00 POC Glucose 167 H Imaging Radiologist's Impressions: Impressions PICC Line Insertion 01/05/22 08:54 IMPRESSION: Successful ultrasound and fluoroscopy-guided placement of right PICC catheter, 35 cm long, with its tip in proximal SVC, ready for use. Assessment and Plan (1) Sacral decubitus ulcer: Status: Acute Plan 66-year-old female with significant sacral decubitus ulcer stage for full- thickness tissue loss with exposed bone tendon necrotic muscle. The superficial surrounding edges actually have nice granulation tissue-- this looks healthy and encouraging. However the deeper area going towards the coccyx sacrum and higher up on the bony spine has terrible necrotic material. it needs to be debrided. It is unfortunate that the patient has continued breakdown of this deeper layer and there is probably visible as well as palpably exposed bone which then raises the complication of underlying osteomyelitis. This patient has multiple medical problems and any prevention maintenance and healing will be very difficult. Suggestions for things to do -- 1- continue with offloading with special air mattress etc.. This is imperative as the patient is a large lady with a BMI of 41 and does not move around very much. This jeopardizes any healing tissue from completely healing much less preventing new wounds from expanding. 2- patient needs further surgical debridement to remove the necrotic tissue and then continue with the wound VAC. I think that this is good with regular frequent VAC changes. If we can get the superficial granulation tissue to allow epithelialization and get rid of the necrotic central material treat underlying bone infection as possible then closing off the large defect may require plastic surgery consultation with some kind of gluteal flap and filling of this wound. Unfortunately risks to her airway and respiratory are real every time she needs to go to the operating room for procedure and I can understand why there is caution for every trip to the operating 3- osteomyelitis - ID following needs iv antibx - PICC line present 3- diversion is important in this patient because of the location and because of fecal contamination. There has been reports on and off that there has been stool in the wound and in the wound VAC. She does have a very large abdomen which would make any diverting loop colostomy difficult but may consider diverting transverse loop colostomy in the upper abdomen where there is less fatty tissue. This is not easy but it is another element to weighing the risks and benefits of trying to heal this wound. Once again another trip to the operating room and undergoing general anesthesia is concerning from an airway perspective 4. Lastly it is so important for good nutrition to be present allow for healing and soft tissue filling. High-protein supplemental vitamins and glutamine may be necessary in order to create new tissue. She has not been eating very well. There may be some benefit to doing a PEG tube and increase her intake this way. This could can be carried out on 1 of the operating room visits
--- NOTE | 2022-01-05 13:31 | HO.PM.IMPN ---
Subjective Subjective Date of Service: 01/05/22 Interval History: no acute issues overnight; dis well with PICC insertion this am Review of Systems denies chest pain Breathing improved ...still mild SOB Denies nausea vomiting diarrhea Physical Exam Vital Signs: Vital Signs: Last Vital Signs Temp 97.7 F 01/05/22 11:14 Pulse 66 01/05/22 11:14 Resp 20 01/05/22 11:14 BP 108/47 L 01/05/22 11:14 Pulse Ox 92 01/05/22 11:14 Oxygen Flow Rate 3 12/30/21 13:00 BMI result Body Mass Index 41.3 Const: Other: no acute distress Resp: Other: scattered expiratory wheezes all martinez Cardio: Other: irregularly irregular; no S4 positive S1-S2 no S3 without murmurs or gallops Skin: Other: stage III sacral decub Extrem: Other: no edema bilaterally Objective Data Active Medications Acetaminophen (Acetaminophen 325 Mg Tablet) 650 mg PO Q6H PRN PRN Reason: Fever Last Admin: 12/30/21 11:57 Dose: 650 mg Documented by: CHRISTIANO Amlodipine Besylate (Amlodipine Besylate 10 Mg Tablet) 10 mg PO DAILY [facility]; Protocol Last Admin: 01/05/22 09:16 Dose: 10 mg Documented by: LATOSHA Apixaban (Apixaban 5 Mg Tablet) 5 mg PO BID [facility] Last Admin: 01/05/22 09:17 Dose: 5 mg Documented by: LATOSHA Atorvastatin Calcium (Atorvastatin Calcium 10 Mg Tablet) 10 mg PO DAILY [facility] Last Admin: 01/05/22 09:13 Dose: 10 mg Documented by: LATOSHA Digoxin (Digoxin 0.25 Mg Tablet) 0.25 mg PO DAILY [facility] Last Admin: 01/05/22 09:17 Dose: 0.25 mg Documented by: LATOSHA Haloperidol (Haloperidol 5 Mg Tablet) 5 mg PO BID [facility] Last Admin: 01/05/22 09:30 Dose: Not Given Documented by: LATOSHA Non-Admin Reason: Previously Administered Hydroxyzine HCl (Hydroxyzine Hcl 25 Mg Tablet) 25 mg PO QID [facility] Last Admin: 01/05/22 09:12 Dose: 25 mg Documented by: LATOSHA Insulin Human Lispro (Insulin Lispro 100 Unit/Ml 3 Ml Vial) 0 unit SUBCUT QIDACHS [facility]; Protocol Last Admin: 01/05/22 13:18 Dose: Not Given Documented by: LATOSHA Non-Admin Reason: No Insulin Coverage Metoprolol Tartrate (Metoprolol Tartrate 25 Mg Tablet) 75 mg PO BID [facility]; Protocol Last Admin: 01/05/22 09:15 Dose: 75 mg Documented by: LATOSHA Metoprolol Tartrate (Metoprolol Tartrate 5 Mg/5 Ml Vial) 5 mg IVPUSH Q6H PRN PRN Reason: Heart Rate >100 Last Admin: 01/01/22 00:43 Dose: 5 mg Documented by: DOROTHY Morphine Sulfate (Morphine Sulfate 4 Mg/Ml Cartridge) 4 mg IVPUSH Q4H PRN; Protocol PRN Reason: Pain, Moderate (Pain Scale 4-6 Last Admin: 01/05/22 13:14 Dose: 4 mg Documented by: LATOSHA Multivitamins/Vitamin C (Multivitamin Tablet) 1 tab PO DAILY [facility] Last Admin: 01/05/22 09:16 Dose: 1 tab Documented by: LATOSHA Nystatin (Nystatin Powder 15 Gm Bottle) 1 appl TOPICAL TID [facility]; Protocol Last Admin: 01/05/22 09:29 Dose: 1 appl Documented by: LATOSHA Ondansetron HCl (Ondansetron Hcl 4 Mg/2 Ml Vial) 4 mg IVPUSH Q8H PRN PRN Reason: Nausea Last Admin: 01/04/22 02:38 Dose: 4 mg Documented by: JONATAN Pharmacy Consult (Consult Rx Perform Med Rec) 1 each MISCELLANE ONCE PRN PRN Reason: Consult order Sodium Chloride (0.9 % Sodium Chloride Flush 3 Ml Syringe) 3 ml IVFLUSH QSHIFT [facility] Last Admin: 01/05/22 09:21 Dose: Not Given Documented by: LATOSHA Non-Admin Reason: No Access Spironolactone (Spironolactone 25 Mg Tablet) 25 mg PO DAILY [facility]; Protocol Last Admin: 01/05/22 09:16 Dose: 25 mg Documented by: LATOSHA Labs CBC & Chem 7: 01/05/22 05:52 01/05/22 05:52 Labs: Laboratory Results - last 24 hr 11/24/21 11/25/21 11/26/21 20:38 08:24 06:32 WBC 17.9 H 16.6 H 15.7 H MCV MCH MCHC RDW Plt Count MPV Immature Gran % (Auto) Neut % (Auto) Lymph % (Auto) [place] % (Auto) Eos % (Auto) Baso % (Auto) Lymph # (Auto) [place] # (Auto) Eos # (Auto) Baso # (Auto) Abs Immat Gran (auto) Absolute Neuts (auto) Absolute Nucleated RBC Nucleated RBC % (auto) Anion Gap Estim Creat Clear Calc Estimated GFR POC Glucose Fasting Glucose Calcium Total Bilirubin AST ALT Alkaline Phosphatase Total Protein Albumin 11/27/21 11/27/21 11/28/21 08:14 21:31 05:30 WBC 10.3 9.9 10.8 MCV MCH MCHC RDW Plt Count MPV Immature Gran % (Auto) Neut % (Auto) Lymph % (Auto) [place] % (Auto) Eos % (Auto) Baso % (Auto) Lymph # (Auto) [place] # (Auto) Eos # (Auto) Baso # (Auto) Abs Immat Gran (auto) Absolute Neuts (auto) Absolute Nucleated RBC Nucleated RBC % (auto) Anion Gap Estim Creat Clear Calc Estimated GFR POC Glucose Fasting Glucose Calcium Total Bilirubin AST ALT Alkaline Phosphatase Total Protein Albumin 11/29/21 11/30/21 12/01/21 05:02 05:46 05:15 WBC 11.8 H 13.7 H 20.1 H MCV MCH MCHC RDW Plt Count MPV Immature Gran % (Auto) Neut % (Auto) Lymph % (Auto) [place] % (Auto) Eos % (Auto) Baso % (Auto) Lymph # (Auto) [place] # (Auto) Eos # (Auto) Baso # (Auto) Abs Immat Gran (auto) Absolute Neuts (auto) Absolute Nucleated RBC Nucleated RBC % (auto) Anion Gap Estim Creat Clear Calc Estimated GFR POC Glucose Fasting Glucose Calcium Total Bilirubin AST ALT Alkaline Phosphatase Total Protein Albumin 12/02/21 12/03/21 12/04/21 05:18 05:30 12:44 WBC 22.6 H 20.8 H 22.0 H MCV MCH MCHC RDW Plt Count MPV Immature Gran % (Auto) Neut % (Auto) Lymph % (Auto) [place] % (Auto) Eos % (Auto) Baso % (Auto) Lymph # (Auto) [place] # (Auto) Eos # (Auto) Baso # (Auto) Abs Immat Gran (auto) Absolute Neuts (auto) Absolute Nucleated RBC Nucleated RBC % (auto) Anion Gap Estim Creat Clear Calc Estimated GFR POC Glucose Fasting Glucose Calcium Total Bilirubin AST ALT Alkaline Phosphatase Total Protein Albumin 12/05/21 12/06/21 12/07/21 07:27 05:52 05:20 WBC 18.8 H 17.1 H 22.8 H MCV MCH MCHC RDW Plt Count MPV Immature Gran % (Auto) Neut % (Auto) Lymph % (Auto) [place] % (Auto) Eos % (Auto) Baso % (Auto) Lymph # (Auto) [place] # (Auto) Eos # (Auto) Baso # (Auto) Abs Immat Gran (auto) Absolute Neuts (auto) Absolute Nucleated RBC Nucleated RBC % (auto) Anion Gap Estim Creat Clear Calc Estimated GFR POC Glucose Fasting Glucose Calcium Total Bilirubin AST ALT Alkaline Phosphatase Total Protein Albumin 12/08/21 12/08/21 12/09/21 05:00 11:59 05:20 WBC Cancelled 19.2 H 16.5 H MCV MCH MCHC RDW Plt Count MPV Immature Gran % (Auto) Neut % (Auto) Lymph % (Auto) [place] % (Auto) Eos % (Auto) Baso % (Auto) Lymph # (Auto) [place] # (Auto) Eos # (Auto) Baso # (Auto) Abs Immat Gran (auto) Absolute Neuts (auto) Absolute Nucleated RBC Nucleated RBC % (auto) Anion Gap Estim Creat Clear Calc Estimated GFR POC Glucose Fasting Glucose Calcium Total Bilirubin AST ALT Alkaline Phosphatase Total Protein Albumin 12/10/21 12/11/21 12/12/21 05:30 06:30 05:20 WBC 16.6 H 13.4 H 17.2 H MCV MCH MCHC RDW Plt Count MPV Immature Gran % (Auto) Neut % (Auto) Lymph % (Auto) [place] % (Auto) Eos % (Auto) Baso % (Auto) Lymph # (Auto) [place] # (Auto) Eos # (Auto) Baso # (Auto) Abs Immat Gran (auto) Absolute Neuts (auto) Absolute Nucleated RBC Nucleated RBC % (auto) Anion Gap Estim Creat Clear Calc Estimated GFR POC Glucose Fasting Glucose Calcium Total Bilirubin AST ALT Alkaline Phosphatase Total Protein Albumin 12/13/21 12/14/21 12/15/21 05:20 04:48 05:20 WBC 14.9 H 10.3 9.7 MCV MCH MCHC RDW Plt Count MPV Immature Gran % (Auto) Neut % (Auto) Lymph % (Auto) [place] % (Auto) Eos % (Auto) Baso % (Auto) Lymph # (Auto) [place] # (Auto) Eos # (Auto) Baso # (Auto) Abs Immat Gran (auto) Absolute Neuts (auto) Absolute Nucleated RBC Nucleated RBC % (auto) Anion Gap Estim Creat Clear Calc Estimated GFR POC Glucose Fasting Glucose Calcium Total Bilirubin AST ALT Alkaline Phosphatase Total Protein Albumin 12/16/21 12/17/21 12/18/21 06:09 04:47 05:58 WBC 10.1 11.8 H 10.4 MCV MCH MCHC RDW Plt Count MPV Immature Gran % (Auto) Neut % (Auto) Lymph % (Auto) [place] % (Auto) Eos % (Auto) Baso % (Auto) Lymph # (Auto) [place] # (Auto) Eos # (Auto) Baso # (Auto) Abs Immat Gran (auto) Absolute Neuts (auto) Absolute Nucleated RBC Nucleated RBC % (auto) Anion Gap Estim Creat Clear Calc Estimated GFR POC Glucose Fasting Glucose Calcium Total Bilirubin AST ALT Alkaline Phosphatase Total Protein Albumin 12/19/21 12/19/21 12/20/21 05:53 05:53 06:10 WBC Cancelled 11.0 H 11.8 H MCV MCH MCHC RDW Plt Count MPV Immature Gran % (Auto) Neut % (Auto) Lymph % (Auto) [place] % (Auto) Eos % (Auto) Baso % (Auto) Lymph # (Auto) [place] # (Auto) Eos # (Auto) Baso # (Auto) Abs Immat Gran (auto) Absolute Neuts (auto) Absolute Nucleated RBC Nucleated RBC % (auto) Anion Gap Estim Creat Clear Calc Estimated GFR POC Glucose Fasting Glucose Calcium Total Bilirubin AST ALT Alkaline Phosphatase Total Protein Albumin 12/25/21 12/27/21 12/28/21 06:40 06:51 06:09 WBC 11.6 H 9.8 12.4 H MCV MCH MCHC RDW Plt Count MPV Immature Gran % (Auto) Neut % (Auto) Lymph % (Auto) [place] % (Auto) Eos % (Auto) Baso % (Auto) Lymph # (Auto) [place] # (Auto) Eos # (Auto) Baso # (Auto) Abs Immat Gran (auto) Absolute Neuts (auto) Absolute Nucleated RBC Nucleated RBC % (auto) Anion Gap Estim Creat Clear Calc Estimated GFR POC Glucose Fasting Glucose Calcium Total Bilirubin AST ALT Alkaline Phosphatase Total Protein Albumin 12/29/21 12/30/21 12/31/21 06:01 06:23 09:32 WBC 12.9 H 13.6 H 13.9 H MCV MCH MCHC RDW Plt Count MPV Immature Gran % (Auto) Neut % (Auto) Lymph % (Auto) [place] % (Auto) Eos % (Auto) Baso % (Auto) Lymph # (Auto) [place] # (Auto) Eos # (Auto) Baso # (Auto) Abs Immat Gran (auto) Absolute Neuts (auto) Absolute Nucleated RBC Nucleated RBC % (auto) Anion Gap Estim Creat Clear Calc Estimated GFR POC Glucose Fasting Glucose Calcium Total Bilirubin AST ALT Alkaline Phosphatase Total Protein Albumin 01/01/22 01/03/22 01/04/22 06:17 06:58 05:42 WBC 13.8 H 15.0 H 15.2 H MCV MCH MCHC RDW Plt Count MPV Immature Gran % (Auto) Neut % (Auto) Lymph % (Auto) [place] % (Auto) Eos % (Auto) Baso % (Auto) Lymph # (Auto) [place] # (Auto) Eos # (Auto) Baso # (Auto) Abs Immat Gran (auto) Absolute Neuts (auto) Absolute Nucleated RBC Nucleated RBC % (auto) Anion Gap Estim Creat Clear Calc Estimated GFR POC Glucose Fasting Glucose Calcium Total Bilirubin AST ALT Alkaline Phosphatase Total Protein Albumin 01/04/22 01/04/22 01/05/22 15:35 19:36 05:52 WBC 15.7 H MCV 76.3 L MCH 21.9 L MCHC 28.7 L RDW 28.1 H Plt Count 505 H MPV 9.7 Immature Gran % (Auto) 3.4 H Neut % (Auto) 76.9 H Lymph % (Auto) 9.7 L [place] % (Auto) 8.1 Eos % (Auto) 1.3 Baso % (Auto) 0.6 Lymph # (Auto) 1.5 [place] # (Auto) 1.3 H Eos # (Auto) 0.2 Baso # (Auto) 0.1 Abs Immat Gran (auto) 0.54 H Absolute Neuts (auto) 12.1 H Absolute Nucleated RBC 0.000 Nucleated RBC % (auto) 0.0 Anion Gap Estim Creat Clear Calc Estimated GFR POC Glucose 140 H 133 H Fasting Glucose Calcium Total Bilirubin AST ALT Alkaline Phosphatase Total Protein Albumin 01/05/22 01/05/22 01/05/22 05:52 07:14 11:02 WBC MCV MCH MCHC RDW Plt Count MPV Immature Gran % (Auto) Neut % (Auto) Lymph % (Auto) [place] % (Auto) Eos % (Auto) Baso % (Auto) Lymph # (Auto) [place] # (Auto) Eos # (Auto) Baso # (Auto) Abs Immat Gran (auto) Absolute Neuts (auto) Absolute Nucleated RBC Nucleated RBC % (auto) Anion Gap 10 L Estim Creat Clear Calc 129.0 Estimated GFR > 60 POC Glucose 121 H 143 H Fasting Glucose 108 H Calcium 8.1 L Total Bilirubin 0.6 AST 12 ALT 9 Alkaline Phosphatase 71 Total Protein 5.1 L Albumin 2.5 L Assessment and Plan (1) Sacral decubitus ulcer: Status: Acute (2) Diastolic CHF with preserved left ventricular function, NYHA class 2: Status: Acute (3) PAF (paroxysmal atrial fibrillation): Status: Acute Plan 66-year-old F sent in from [facility], PMHx of alcoholic cirrhosis, dementia, schizoaffective disorder admitted for acute?exacerbation of underlying congestive heart failure further complicated by AF/RVR, COPD exacerbation and development of angioedema requiring intubation for ventilatory support on 11/27 extubated 11/29. 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 HFpEF, [id number] - continue metoprolol + spironolactone - good response to diuresis; BNP [phone] 3.Paroxysmal Atrial FibriLATION - NSR this am - continue metoprolol/ digoxin - anticoagulated with apixaban 4. HTN -acceptable control on current therapies -metoprolol/spironolactone/amlodipine 5. DMII - acceptable control on current therapies - correction-dose lispro 6.Schizoaffective disorder - restarted haloperidol - add back Hydroxyzine - moving back to baseline # VTE ppx - apixaban # dispo [facility] once wound care plan in place Quality Stroke Does the patient have a stroke diagnosis?: No VTE Prior VTE?: No VTE Risk Level:: Medical - moderate - high VTE Device Contraindication: Treatment Not Indicated VTE Drug Contraindication: N/A - Med Ordered
[2022-01-05 15:53] LABS: Glucose, Whole Blood 235 mg/dL (60-115)
[2022-01-05] MEDS: Insulin Lispro 100 UNIT/ML 3 ML VIAL SUBCUT (17:12)
[2022-01-05] MEDS: 0.9 % Sodium Chloride Flush 3 ML SYRINGE IVFLUSH ×2 (17:15→21:19)
[2022-01-05 19:49] LABS: Glucose, Whole Blood 130 mg/dL (60-115)
[2022-01-05] MEDS: HaloperidoL 5 MG TABLET PO (21:19)
[2022-01-06] VITALS (9 sets, daily range): BP systolic 90–124; BP diastolic 40–55; PULSE 61–86; RESP 16–19; TEMP 36–37.3; O2SAT 88–97; BMI 40.9
[2022-01-06] MEDS: Morphine Sulfate 4 MG/ML CARTRIDGE IVPUSH ×3 (05:14→15:39)
[2022-01-06 07:38] LABS: Glucose, Whole Blood 120 mg/dL (60-115)
[2022-01-06] MEDS: Metoprolol Tartrate 25 MG TABLET 75 MG PO ×2 (09:01→22:37)
[2022-01-06] MEDS: Spironolactone 25 MG TABLET PO (09:03)
[2022-01-06] MEDS: Multivitamin TABLET 1 TAB PO (09:04)
[2022-01-06] MEDS: hydrOXYzine HCL 25 MG TABLET PO ×3 (09:04→22:48)
[2022-01-06] MEDS: Digoxin 0.25 MG TABLET PO (09:04)
[2022-01-06] MEDS: Apixaban 5 MG TABLET PO ×2 (09:04→22:36)
[2022-01-06] MEDS: HaloperidoL 5 MG TABLET PO ×2 (09:04→22:36)
[2022-01-06] MEDS: Atorvastatin Calcium 10 MG TABLET PO (09:04)
[2022-01-06] MEDS: amLODIPine Besylate 10 MG TABLET PO (09:05)
[2022-01-06] MEDS: 0.9 % Sodium Chloride Flush 3 ML SYRINGE IVFLUSH ×3 (09:11→22:48)
--- NOTE | 2022-01-06 10:48 | MHC.SL.SWA ---
Speech Pathologist Impression: Risk of Aspiration Oralpharyngeal Dysphagia Risk of Aspiration Due to: Poor PO Intake Hx of Recent Extubation Reduced Cognition Dysphasia Diet Status: No Change Liquid Consistency and Strategies for Safe Swallow: Liquid Intake Recommendation: Thin Liquid Intake Strategies: Small Sips No Straws Solid Food Consistency: Dietary Recommendations: Grnd/Mech Altered (NDD2) Oral Medication Intake: Crushed with Puree Please contact the pharmacy regarding appropriate crushable or liquid drug formulations that are available whenever modified delivery is recommended. Compensatory Strategies and Precautions to be Taken for Safe Swallow: Sitting Upright (90 deg) No Straw Small Bites and Sips Alternate Liquids/Solids Rate of Ingestion Change Oral Check Supervision While Eating and Drinking for Safe Swallow: Total Assistance (1:1) Swallowing Recommended Treatments: Compens. Strategy Educat. Recommendation for Speech: Inpatient Speech Therapy Comment: Pt will need full assist for all meals w/close supervision for signs of aspiration. Continue aspiration precautions. Pt may need more frequent smaller meals if endurance for eating continues to be limited. Artist'S Manager Clinican/Clinical Fellow: No Supervisory Statement: I have reviewed and agree with the student/clinical fellow's documentation: N/A Speech Language Pathologist: Lisa Bolton M.A., CCC-TOWER LOADER OPERATOR
[2022-01-06 11:30] LABS: Glucose, Whole Blood 167 mg/dL (60-115)
--- NOTE | 2022-01-06 11:37 | HO.PM.IMPN ---
Subjective Subjective Date of Service: 01/06/22 Interval History: no acute issues overnight. Noted to have what looks like stool and wound VAC Review of Systems unable to obtain Physical Exam Vital Signs: Vital Signs: Last Vital Signs Temp 97.8 F 01/06/22 10:59 Pulse 63 01/06/22 10:59 Resp 19 01/06/22 10:59 BP 107/43 L 01/06/22 10:59 Pulse Ox 96 01/06/22 10:59 Oxygen Flow Rate 3 12/30/21 13:00 BMI result Body Mass Index 40.9 Const: Other: confused no acute distress Resp: Other: clear to auscultation bilaterally no rales rhonchi wheezes Cardio: Other: no S4; positive S1-S2 no S3 murmur subcu gout GI: Other: soft nontender nondistended with normal bowel sounds Skin: Other: see wound care notes for sacral decubitus details Extrem: Other: no edema bilaterally Objective Data Active Medications Acetaminophen (Acetaminophen 325 Mg Tablet) 650 mg PO Q6H PRN PRN Reason: Fever Last Admin: 12/30/21 11:57 Dose: 650 mg Documented by: CHRISTIANO Amlodipine Besylate (Amlodipine Besylate 10 Mg Tablet) 10 mg PO DAILY [facility]; Protocol Last Admin: 01/06/22 09:05 Dose: 10 mg Documented by: LATOSHA Apixaban (Apixaban 5 Mg Tablet) 5 mg PO BID [facility] Last Admin: 01/06/22 09:04 Dose: 5 mg Documented by: LATOSHA Atorvastatin Calcium (Atorvastatin Calcium 10 Mg Tablet) 10 mg PO DAILY [facility] Last Admin: 01/06/22 09:04 Dose: 10 mg Documented by: LATOSHA Digoxin (Digoxin 0.25 Mg Tablet) 0.25 mg PO DAILY [facility] Last Admin: 01/06/22 09:04 Dose: 0.25 mg Documented by: LATOSHA Haloperidol (Haloperidol 5 Mg Tablet) 5 mg PO BID [facility] Last Admin: 01/06/22 09:04 Dose: 5 mg Documented by: LATOSHA Hydroxyzine HCl (Hydroxyzine Hcl 25 Mg Tablet) 25 mg PO QID [facility] Last Admin: 01/06/22 09:04 Dose: 25 mg Documented by: LATOSHA Insulin Human Lispro (Insulin Lispro 100 Unit/Ml 3 Ml Vial) 0 unit SUBCUT QIDACHS [facility]; Protocol Last Admin: 01/06/22 09:11 Dose: Not Given Documented by: LATOSHA Non-Admin Reason: No Insulin Coverage Metoprolol Tartrate (Metoprolol Tartrate 25 Mg Tablet) 75 mg PO BID [facility]; Protocol Last Admin: 01/06/22 09:01 Dose: 75 mg Documented by: LATOSHA Metoprolol Tartrate (Metoprolol Tartrate 5 Mg/5 Ml Vial) 5 mg IVPUSH Q6H PRN PRN Reason: Heart Rate >100 Last Admin: 01/01/22 00:43 Dose: 5 mg Documented by: DOROTHY Morphine Sulfate (Morphine Sulfate 4 Mg/Ml Cartridge) 4 mg IVPUSH Q4H PRN; Protocol PRN Reason: Pain, Moderate (Pain Scale 4-6 Last Admin: 01/06/22 05:14 Dose: 4 mg Documented by: LUANA Multivitamins/Vitamin C (Multivitamin Tablet) 1 tab PO DAILY [facility] Last Admin: 01/06/22 09:04 Dose: 1 tab Documented by: LATOSHA Nystatin (Nystatin Powder 15 Gm Bottle) 1 appl TOPICAL TID [facility]; Protocol Last Admin: 01/05/22 21:19 Dose: 1 appl Documented by: LUANA Ondansetron HCl (Ondansetron Hcl 4 Mg/2 Ml Vial) 4 mg IVPUSH Q8H PRN PRN Reason: Nausea Last Admin: 01/04/22 02:38 Dose: 4 mg Documented by: JONATAN Pharmacy Consult (Consult Rx Perform Med Rec) 1 each MISCELLANE ONCE PRN PRN Reason: Consult order Sodium Chloride (0.9 % Sodium Chloride Flush 3 Ml Syringe) 3 ml IVFLUSH QSHIFT [facility] Last Admin: 01/06/22 09:11 Dose: 3 ml Documented by: LATOSHA Spironolactone (Spironolactone 25 Mg Tablet) 25 mg PO DAILY [facility]; Protocol Last Admin: 01/06/22 09:03 Dose: 25 mg Documented by: LATOSHA Labs CBC & Chem 7: 01/05/22 05:52 01/05/22 05:52 Labs: Laboratory Results - last 24 hr 01/05/22 01/05/22 01/06/22 15:25 19:30 07:01 POC Glucose 235 H 130 H 120 H 01/06/22 11:00 POC Glucose 167 H Assessment and Plan (1) Sacral decubitus ulcer: Status: Acute (2) Acute on chronic diastolic (congestive) heart failure: Status: Acute (3) PAF (paroxysmal atrial fibrillation): Status: Acute Plan 66-year-old F sent in from [facility], PMHx of alcoholic cirrhosis, dementia, schizoaffective disorder admitted for acute?exacerbation of underlying congestive heart failure further complicated by AF/RVR, COPD exacerbation and development of angioedema requiring intubation for ventilatory support on 11/27 extubated 11/29.? 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 Results will dictate course of therapies 2. HFpEF, [id number] - continue metoprolol + spironolactone - good response to diuresis; BNP [phone] 3.Paroxysmal Atrial FibriLATION - NSR this am - continue metoprolol/ digoxin - anticoagulated with apixaban 4. HTN -acceptable control on current therapies -metoprolol/spironolactone/amlodipine 5. DMII - acceptable control on current therapies - correction-dose lispro 6.Schizoaffective disorder - restarted haloperidol - add back Hydroxyzine - moving back to baseline [facility] updated # VTE ppx - apixaban Quality Stroke Does the patient have a stroke diagnosis?: No VTE Prior VTE?: No VTE Risk Level:: Medical - moderate - high VTE Device Contraindication: Treatment Not Indicated VTE Drug Contraindication: N/A - Med Ordered
--- NOTE | 2022-01-06 14:33 | PC.NURSE ---
PRN morphine was removed from pyxis and administered this morning at 0841 however the vial was not scanned. At 1432 the pharmacist removed a vial for me to scan.
[2022-01-06] MEDS: Nystatin Powder 15 GM BOTTLE 1 APPL TOPICAL ×3 (15:43→22:38)
[2022-01-06 16:24] LABS: Glucose, Whole Blood 132 mg/dL (60-115)
[2022-01-06] MEDS: iohexoL 350 MG/ML 100 ML INFUS..BTL 85 ML IV (16:38)
[2022-01-06 20:21] LABS: Glucose, Whole Blood 126 mg/dL (60-115)
[2022-01-07] VITALS (7 sets, daily range): BP systolic 91–131; BP diastolic 34–52; PULSE 76–90; RESP 16–20; TEMP 37–37.7; O2SAT 86–98
[2022-01-07] MEDS: Morphine Sulfate 4 MG/ML CARTRIDGE IVPUSH ×4 (00:59→20:21)
[2022-01-07 07:35] LABS: Glucose, Whole Blood 112 mg/dL (60-115)
[2022-01-07] MEDS: Spironolactone 25 MG TABLET PO (11:06)
[2022-01-07] MEDS: Metoprolol Tartrate 25 MG TABLET 75 MG PO (11:06)
[2022-01-07] MEDS: Multivitamin TABLET 1 TAB PO (11:06)
[2022-01-07] MEDS: Digoxin 0.25 MG TABLET PO (11:06)
[2022-01-07] MEDS: 0.9 % Sodium Chloride Flush 3 ML SYRINGE IVFLUSH ×2 (11:07→16:44)
[2022-01-07] MEDS: Atorvastatin Calcium 10 MG TABLET PO (11:07)
[2022-01-07] MEDS: Apixaban 5 MG TABLET PO (11:07)
[2022-01-07] MEDS: HaloperidoL 5 MG TABLET PO ×2 (11:07→22:33)
[2022-01-07] MEDS: amLODIPine Besylate 10 MG TABLET PO (11:07)
--- NOTE | 2022-01-07 11:10 | MHC.CLN ---
F/U PO INTAKE REMAINS POOR DIET RX: GRD M/S-PREVIOUSLY LIBERALIZED TO REGULAR DIET TO INCREASE VARIETY PT RECEIVING ENSURE BID AND LELAND BID TO PROVIDE 860KCALS, 45G PROTEIN FOR INCREASE KCALS AND PROMOTE WOUND HEALING, HOWEVER PT DOES REFUSE MEALS AND SUPPLEMENTS FREQUENTLY CONTINUE STRICT PO MONITORING SPOKE WITH NSG/BLOOD BANK LABORATORY TECHNOLOGIST AND PHARMACY REGARDING PT NSG REPORTS PT CONTINUES WITH POOR PO AND POSSIBLE PPN TO START RECOMMEND DAY ONE PPN D10AA4.25 AT 45ML/HR TO PROVIDE 551KCALS, 46G PROTEIN DAY TWO ADVANCE PPN D10AA4.25 AT 65ML/HR TO PROVIDE 796KCALS, 66G PROTEIN REPLETE LYTES NEEDED, MONITOR FOR RE-FEEDING AND CHECK TRIG LEVEL DAY THREE PPN D10AA4.25 AT 85ML/HR TO PROVIDE 1040KCALS, 87G PROTEIN PHARMACY AWARE OF PLAN CONSULT RD IF NEEDED-CAN BE REACHED VIA TIGER TEXT OVER WEEKEND IF NEEDED
[2022-01-07 11:29] LABS: Glucose, Whole Blood 145 mg/dL (60-115)
[2022-01-07] MEDS: Nystatin Powder 15 GM BOTTLE 1 APPL TOPICAL ×3 (12:04→22:34)
--- NOTE | 2022-01-07 13:17 | MHC.SLORD ---
Speech Language Pathology Order Status: Patient laying on her side for wound care this morning- PO trials not given d/t positioning. Patient is on ground/[facility] altered (NDD2) solids and thin liquids. Will continue to follow.
[2022-01-07] MEDS: Acetaminophen 325 MG TABLET 650 MG PO (13:52)
[2022-01-07] MEDS: hydrOXYzine HCL 25 MG TABLET PO ×3 (13:53→22:32)
--- NOTE | 2022-01-07 15:53 | P.PNIM_ITS ---
Subjective Subjective Date of Service: 01/07/22 Interval History: no acute issues overnight. Noted to have what looks like stool and wound VAC Review of Systems unable to obtain Physical Exam Vital Signs: Vital Signs: Last Vital Signs Temp 98.6 F 01/07/22 15:21 Pulse 76 01/07/22 15:21 Resp 16 01/07/22 15:21 BP 113/34 L 01/07/22 15:21 Pulse Ox 86 L 01/07/22 15:21 Oxygen Flow Rate 3 12/30/21 13:00 BMI result Body Mass Index 40.9 Const: Other: confused no acute distress Resp: Other: clear to auscultation bilaterally no rales rhonchi wheezes Cardio: Other: no S4; positive S1-S2 no S3 murmur subcu gout GI: Other: soft nontender nondistended with normal bowel sounds Skin: Other: see wound care notes for sacral decubitus details Extrem: Other: no edema bilaterally Objective Data Active Medications Acetaminophen (Acetaminophen 325 Mg Tablet) 650 mg PO Q6H PRN PRN Reason: Fever Last Admin: 01/07/22 13:52 Dose: 650 mg Documented by: DEBBIE Amlodipine Besylate (Amlodipine Besylate 10 Mg Tablet) 10 mg PO DAILY [facility]; Protocol Last Admin: 01/07/22 11:07 Dose: 10 mg Documented by: DEBBIE Apixaban (Apixaban 5 Mg Tablet) 5 mg PO BID [facility] Last Admin: 01/07/22 11:07 Dose: 5 mg Documented by: DEBBIE Atorvastatin Calcium (Atorvastatin Calcium 10 Mg Tablet) 10 mg PO DAILY [facility] Last Admin: 01/07/22 11:07 Dose: 10 mg Documented by: DEBBIE Digoxin (Digoxin 0.25 Mg Tablet) 0.25 mg PO DAILY [facility] Last Admin: 01/07/22 11:06 Dose: 0.25 mg Documented by: DEBBIE Haloperidol (Haloperidol 5 Mg Tablet) 5 mg PO BID [facility] Last Admin: 01/07/22 11:07 Dose: 5 mg Documented by: DEBBIE Hydroxyzine HCl (Hydroxyzine Hcl 25 Mg Tablet) 25 mg PO QID [facility] Last Admin: 01/07/22 13:53 Dose: 25 mg Documented by: DEBBIE Insulin Human Lispro (Insulin Lispro 100 Unit/Ml 3 Ml Vial) 0 unit SUBCUT QIDACHS [facility]; Protocol Last Admin: 01/07/22 12:06 Dose: Not Given Documented by: DEBBIE Non-Admin Reason: IV Running Metoprolol Tartrate (Metoprolol Tartrate 25 Mg Tablet) 75 mg PO BID [facility]; Protocol Last Admin: 01/07/22 11:06 Dose: 75 mg Documented by: DEBBIE Metoprolol Tartrate (Metoprolol Tartrate 5 Mg/5 Ml Vial) 5 mg IVPUSH Q6H PRN PRN Reason: Heart Rate >100 Last Admin: 01/01/22 00:43 Dose: 5 mg Documented by: DOROTHY Morphine Sulfate (Morphine Sulfate 4 Mg/Ml Cartridge) 4 mg IVPUSH Q4H PRN; Protocol PRN Reason: Pain, Moderate (Pain Scale 4-6 Last Admin: 01/07/22 11:17 Dose: 4 mg Documented by: DEBBIE Multivitamins/Vitamin C (Multivitamin Tablet) 1 tab PO DAILY [facility] Last Admin: 01/07/22 11:06 Dose: 1 tab Documented by: DEBBIE Nystatin (Nystatin Powder 15 Gm Bottle) 1 appl TOPICAL TID [facility]; Protocol Last Admin: 01/07/22 12:04 Dose: 1 appl Documented by: DEBBIE Ondansetron HCl (Ondansetron Hcl 4 Mg/2 Ml Vial) 4 mg IVPUSH Q8H PRN PRN Reason: Nausea Last Admin: 01/04/22 02:38 Dose: 4 mg Documented by: JONATAN Pharmacy Consult (Consult Rx Perform Med Rec) 1 each MISCELLANE ONCE PRN PRN Reason: Consult order Sodium Chloride (0.9 % Sodium Chloride Flush 3 Ml Syringe) 3 ml IVFLUSH QSHIFT [facility] Last Admin: 01/07/22 11:07 Dose: 3 ml Documented by: DEBBIE Spironolactone (Spironolactone 25 Mg Tablet) 25 mg PO DAILY [facility]; Protocol Last Admin: 01/07/22 11:06 Dose: 25 mg Documented by: DEBBIE Labs CBC & Chem 7: 01/05/22 05:52 01/05/22 05:52 Labs: Laboratory Results - last 24 hr 01/06/22 01/06/22 01/07/22 15:53 20:05 07:15 POC Glucose 132 H 126 H 112 01/07/22 11:05 POC Glucose 145 H Assessment and Plan (1) Sacral decubitus ulcer: Status: Acute (2) Acute on chronic diastolic (congestive) heart failure: Status: Acute Plan 66-year-old F sent in from [facility], PMHx of alcoholic cirrhosis, dementia, schizoaffective disorder admitted for acute?exacerbation of underlying congestive heart failure further complicated by AF/RVR, COPD exacerbation and development of angioedema requiring intubation for ventilatory support on 11/27 extubated 11/29.? etiology of angiodema thought to be related to C1 esterase defi ciency on 12/06, again developed respiratory failure and nearly obtunded with no gag reflex and was transferred again to ICU and re-intubated extubated 12/13, stepped down to medical floor 12/15 hospitalization complicated by stage IV coccygeal decubitus ulcer 1.3.Stage IV coccygeal decubitus ulcer - CT scan done 01/06/2022 demonstrates tract of soft tissue with subtle gas tracking posteriorly from the rectum at 06:00 o'clock into the gluteal musculature left lateral to the sacrum suggestive of fistulous tract communicating with the gluteal defect. Discussed with team; options include transverse loop colostomy, PEG tube and wound VAC. Ultimately, patient will require a gluteal flap to seal ulcer. Given her ongoing history of schizoaffective disorder in the backdrop of longstanding alcohol abuse prior to admission to [facility], do not believe patient could tolerate or cooperate with this magnitude of treatment( Given her history of noncompliance with therapies). As such, I believe in the patient's best interest that she be made comfortable and return to care 1. I believe the formal course of action would just prolonged her suffering and would not end with resolution of the ulcer. Will discuss with team, and present a guardian. This was discussed with a director of nurses [facility] who agrees with this plan of care. 2. HFpEF, [id number] - continue metoprolol + spironolactone - good response to diuresis; BNP [phone] 3.Paroxysmal Atrial FibriLATION - NSR this am - continue metoprolol/ digoxin - anticoagulated with apixaban 4. HTN -acceptable control on current therapies -metoprolol/spironolactone/amlodipine 5. DMII - acceptable control on current therapies - correction-dose lispro 6.Schizoaffective disorder - restarted haloperidol - add back Hydroxyzine - moving back to [facility] updated # VTE ppx - apixaban Quality Stroke Does the patient have a stroke diagnosis?: No VTE Prior VTE?: No VTE Risk Level:: Medical - moderate - high VTE Device Contraindication: Treatment Not Indicated VTE Drug Contraindication: N/A - Med Ordered
[2022-01-07 16:11] LABS: Glucose, Whole Blood 281 mg/dL (60-115)
[2022-01-07] MEDS: Insulin Lispro 100 UNIT/ML 3 ML VIAL SUBCUT (16:43)
[2022-01-07 20:34] LABS: Glucose, Whole Blood 127 mg/dL (60-115)
[2022-01-07 20:35] LABS: Hematocrit 27.8 % (37.0-47.0); Hemoglobin 8.2 g/dl (12.0-16.0)
--- NOTE | 2022-01-07 22:48 | PM.EVENT ---
Event Note Date of Service: 01/07/22 Event Note: Pt is having active continuous bleeding from wound vac site. Pt Hgb drop from 9.4 to 8.2. Surgeon made aware. coming to take pt to OR to stop the bleeding I tried calling the guardian to discuss the case and get consent but noone answered. A vm was left. In my capacity as the covering physician, and given her full code status, it is in the pt's best clinical and medical interest to undergo surgical intervention to stop the bleeding and to prevent further deterioration and potential hemorrhagic shock 1 unit of pRBC will also be given
--- NOTE | 2022-01-07 23:27 | P.CONAN_ITS ---
[facility] Active Problems Active Problems: All Active Problems (Updated 01/02/22 @ 12:38 by Rony Hogan DO) PAF (paroxysmal atrial fibrillation) (Acute) Acute on chronic diastolic (congestive) heart failure (Acute) Hypernatremia (Acute) Sacral decubitus ulcer (Acute) Hyponatremia (Acute) Anemia (Acute) Diastolic CHF with preserved left ventricular function, NYHA class 2 (Acute) CHF exacerbation (Acute) Fever of unknown origin (Acute) Acute encephalopathy (Acute) Acute respiratory failure (Acute) Schizoaffective disorder (Acute) CKD (chronic kidney disease) (Acute) Alcoholic cirrhosis of liver (Acute) Angioedema (Acute) Acute anaphylaxis (Acute) Dyspnea (Acute) Hyponatremia (Acute) Atrial fibrillation with RVR (Acute) Pneumonia (Acute) Chronic hyponatremia (Acute) Acute hyperkalemia (Acute) Past Medical History Medical History Alcoholic cirrhosis of liver Anemia Asthma CKD (chronic kidney disease) Crohn's disease Diastolic CHF with preserved left ventricular function, NYHA class 2 Fever of unknown origin Hyponatremia Hyponatremia Schizoaffective disorder Functional capacity: bed bound Family History Family history of problems with anesthesia: Unobtainable Surgical History Surgical History No pertinent past surgical history History of Problems with Anesthesia: No (Patient denies prior anesthesia ) Social History Social History Household Members: None Housing: House Patient Tobacco Use Status: Current everyday Tobacco user service: No Meds Allergies Allergy/AdvReac Type Severity Reaction Status Date / Time lisinopril Allergy Severe Angioedema Verified 12/02/21 16:07 Sulfa (Sulfonamide Allergy Intermediate HIVES Verified 11/24/21 20:49 Antibiotics) Active Medications: Current Medications Acetaminophen (Acetaminophen 325 Mg Tablet) 650 mg PO Q6H PRN PRN Reason: Fever Last Admin: 01/07/22 13:52 Dose: 650 mg Documented by: Amlodipine Besylate (Amlodipine Besylate 10 Mg Tablet) 10 mg PO DAILY [facility]; Protocol Last Admin: 01/07/22 11:07 Dose: 10 mg Documented by: Apixaban (Apixaban 5 Mg Tablet) 5 mg PO BID [facility] Last Admin: 01/07/22 22:33 Dose: Not Given Documented by: Atorvastatin Calcium (Atorvastatin Calcium 10 Mg Tablet) 10 mg PO DAILY [facility] Last Admin: 01/07/22 11:07 Dose: 10 mg Documented by: Digoxin (Digoxin 0.25 Mg Tablet) 0.25 mg PO DAILY [facility] Last Admin: 01/07/22 11:06 Dose: 0.25 mg Documented by: Haloperidol (Haloperidol 5 Mg Tablet) 5 mg PO BID [facility] Last Admin: 01/07/22 22:33 Dose: 5 mg Documented by: Hydroxyzine HCl (Hydroxyzine Hcl 25 Mg Tablet) 25 mg PO QID [facility] Last Admin: 01/07/22 22:32 Dose: 25 mg Documented by: Insulin Human Lispro (Insulin Lispro 100 Unit/Ml 3 Ml Vial) 0 unit SUBCUT QIDACHS [facility]; Protocol Last Admin: 01/07/22 22:33 Dose: Not Given Documented by: Metoprolol Tartrate (Metoprolol Tartrate 25 Mg Tablet) 75 mg PO BID [facility]; Protocol Last Admin: 01/07/22 22:34 Dose: Not Given Documented by: Metoprolol Tartrate (Metoprolol Tartrate 5 Mg/5 Ml Vial) 5 mg IVPUSH Q6H PRN PRN Reason: Heart Rate >100 Last Admin: 01/01/22 00:43 Dose: 5 mg Documented by: Morphine Sulfate (Morphine Sulfate 4 Mg/Ml Cartridge) 4 mg IVPUSH Q4H PRN; Protocol PRN Reason: Pain, Moderate (Pain Scale 4-6 Last Admin: 01/07/22 20:21 Dose: 4 mg Documented by: Multivitamins/Vitamin C (Multivitamin Tablet) 1 tab PO DAILY [facility] Last Admin: 01/07/22 11:06 Dose: 1 tab Documented by: Nystatin (Nystatin Powder 15 Gm Bottle) 1 appl TOPICAL TID [facility]; Protocol Last Admin: 01/07/22 22:34 Dose: 1 appl Documented by: Ondansetron HCl (Ondansetron Hcl 4 Mg/2 Ml Vial) 4 mg IVPUSH Q8H PRN PRN Reason: Nausea Last Admin: 01/04/22 02:38 Dose: 4 mg Documented by: Pharmacy Consult (Consult Rx Perform Med Rec) 1 each MISCELLANE ONCE PRN PRN Reason: Consult order Sodium Chloride (0.9 % Sodium Chloride Flush 3 Ml Syringe) 3 ml IVFLUSH QSHIFT [facility] Last Admin: 01/07/22 16:44 Dose: 3 ml Documented by: Spironolactone (Spironolactone 25 Mg Tablet) 25 mg PO DAILY [facility]; Protocol Last Admin: 01/07/22 11:06 Dose: 25 mg Documented by: Home Medications Medication Instructions Recorded Confirmed Last Taken Type Saccharomyces boulardii 250 mg 250 mg PO BID 11/25/21 11/25/21 11/24/21 History capsule (Florastor) acetaminophen 325 mg tablet 650 mg PO Q4H PRN 11/25/21 11/25/21 11/23/21 History albuterol sulfate 90 mcg/actuation 2 puff INHALATION Q4H PRN 11/25/21 11/25/21 11/22/21 History aerosol inhaler (ProAir HFA) aluminum-mag hydroxide-simethicone 30 ml PO Q4H PRN 11/25/21 11/25/21 11/16/21 History 200 mg-200 mg-20 mg/5 mL oral susp ([place]) atorvastatin 10 mg tablet 1 tab PO DAILY 11/25/21 11/25/21 11/24/21 History azathioprine 50 mg tablet 2 tab PO DAILY 11/25/21 11/25/21 11/24/21 History calcitonin (salmon) 200 1 spray INTRANASAL DAILY 11/25/21 11/25/21 11/24/21 History unit/actuation nasal spray calcium carbonate 600 mg-vitamin 1 tab PO DAILY 11/25/21 11/25/21 11/24/21 History D3 5 mcg (200 unit) tablet (Calcium 600 + D(3)) cranberry fruit 450 mg tablet 450 mg PO BID 11/25/21 11/25/21 11/24/21 History (cranberry) cyclobenzaprine 10 mg tablet 1 tab PO Q24H PRN 11/25/21 11/25/21 11/21/21 History docusate sodium 100 mg tablet 100 mg PO BID 11/25/21 11/25/21 11/24/21 History dulaglutide 1.5 mg/0.5 mL 1.5 mg SUBCUT TU 11/25/21 11/25/21 11/23/21 History subcutaneous pen injector (Trulicity) gabapentin 100 mg capsule 1 cap PO TID 11/25/21 11/25/21 11/24/21 History haloperidol 5 mg tablet 5 mg PO BID 11/25/21 11/25/21 11/24/21 History hydroxyzine HCl 25 mg tablet 25 mg PO QID 11/25/21 11/25/21 11/24/21 History insulin detemir U-100 100 unit/mL 110 unit SUBCUT BID@0630,1630 11/25/21 11/25/21 11/24/21 History (3 mL) subcutaneous pen insulin regular human 100 unit/mL 1 sliding scale dose SUBCUT 11/25/21 11/25/21 11/24/21 History injection solution (Novolin R USEASDIRECTD Regular U-100 Insulin) ipratropium 20 mcg-albuterol 100 1 puff INHALATION BID 11/25/21 11/25/21 11/24/21 History mcg/actuation mist for inhalation (Combivent Respimat) lanolin alcohols-mineral 1 appl TOPICAL DAILY 11/25/21 11/25/21 Unknown History oil-w.petrolatum-ceresin topical cream (Minerin Creme) lisinopril 5 mg tablet 5 mg PO DAILY 11/25/21 11/25/21 11/24/21 History menthol 5 % topical patch (Bengay 1 patch TOPICAL DAILY PRN 11/25/21 11/25/21 Unknown History Ultra Strength (menthol)) metformin 1,000 mg tablet 1,000 mg PO BID 11/25/21 11/25/21 11/24/21 History mirtazapine 15 mg tablet 1 tab PO BEDTIME 11/25/21 11/25/21 11/23/21 History multivitamin 1 tab PO DAILY 11/25/21 11/25/21 11/24/21 History nicotine 7 mg/24 hr daily 1 patch TRANSDERMAL Q24H PRN 11/25/21 11/25/21 Unknown History transdermal patch nitrofurantoin macrocrystal 50 mg 1 cap PO BEDTIME 11/25/21 11/25/21 11/23/21 History capsule nitroglycerin 0.4 mg sublingual 0.4 mg SUBLINGUAL Q5M PRN 11/25/21 11/25/21 Unknown History tablet nystatin 100,000 unit/gram topical 1 appl TOPICAL BID 11/25/21 11/25/21 Unknown History powder omeprazole 20 mg tablet,delayed 20 mg PO BID 11/25/21 11/25/21 11/24/21 History release oxycodone-acetaminophen 5 mg-325 1 tab PO QID 11/25/21 11/25/21 11/24/21 History mg tablet sennosides 8.6 mg tablet (senna) 8.6 mg PO DAILY 11/25/21 11/25/21 11/24/21 History sennosides 8.6 mg tablet (senna) 17.2 mg PO BEDTIME 11/25/21 11/25/21 11/23/21 History sitagliptin 100 mg tablet (Januvia) 100 mg PO DAILY 11/25/21 11/25/21 11/24/21 History sodium chloride 0.65 % nasal spray 2 spray INTRANASAL Q4H PRN 11/25/21 11/25/21 11/24/21 History aerosol (Deep Sea Nasal) sodium chloride 1,000 mg soluble 1,000 mg PO TID 11/25/21 11/25/21 11/24/21 History tablet tolterodine 4 mg capsule,extended 4 mg PO DAILY 11/25/21 11/25/21 11/24/21 History release 24 hr Exam Exam Date and Time: January 07, [id number] Height,Weight and Vital Signs: Height 5 ft 6 in Weight 115 kg Last Vital Signs Temp 99.9 F 01/07/22 19:43 Pulse 85 01/07/22 19:43 Resp 16 01/07/22 19:43 BP 91/49 L 01/07/22 19:43 Pulse Ox 98 01/07/22 19:43 Oxygen Flow Rate 3 12/30/21 13:00 Pertinent Lab Results Pertinent Lab Results: Laboratory Tests 11/24/21 11/24/21 11/24/21 20:38 20:38 20:38 WBC 17.9 H RBC 5.14 Hgb 9.8 L Hct 33.7 L MCV 65.6 L MCH 19.1 L MCHC 29.1 L RDW 20.6 H Plt Count 395 MPV 8.8 L Immature Gran % (Auto) Cancelled Neut % (Auto) Cancelled Lymph % (Auto) Cancelled Grainger % (Auto) Cancelled Eos % (Auto) Cancelled Baso % (Auto) Cancelled Lymph # (Auto) Cancelled Grainger # (Auto) Cancelled Eos # (Auto) Cancelled Baso # (Auto) Cancelled Abs Immat Gran (auto) Cancelled Absolute Neuts (auto) Cancelled Absolute Nucleated RBC 0.140 H Nucleated RBC % (auto) 0.8 H Neutrophils % (Manual) 89 H Band Neutrophils % 2 L Lymphocytes % (Manual) 6 L Monocytes % (Manual) 3 Abs Neuts (Manual) 16.3 H Lymphocytes # (Manual) 1.1 L Monocytes # (Manual) 0.5 Platelet Estimate NORMAL Plt Morphology Comment NORMAL RBC Morphology NOTED Acanthocytes (Spur) 1+ (0-2) Smear Tech's Comments Smear Path Review PT INR APTT O2 Saturation ABG pH at Pt Temp ABG pH (Temp Correct) ABG pCO2 at Pt Temp ABG pCO2 (Temp Corrct ABG pO2 at Pt Temp ABG pO2 (Temp Correct ABG HCO3 ABG Base Excess (Actual) VBG pH VBG pCO2 VBG pO2 VBG HCO3 VBG O2 Saturation VBG Base Excess Sodium 122 L Potassium 6.5 H* Chloride 89 L Carbon Dioxide 27 Anion Gap 13 BUN 14 Creatinine 0.84 Estim Creat Clear Calc 81.9 Estimated GFR > 60 POC Glucose Random Glucose 90 Fasting Glucose Osmolality Lactic Acid Calcium 8.8 Phosphorus Magnesium 1.9 Transferrin Total Bilirubin Direct Bilirubin AST ALT Alkaline Phosphatase Ammonia Troponin I High Sens 4.1 B-Natriuretic Peptide 78 Total Protein Albumin Procalcitonin TSH 1.76 Random Cortisol Urine Color Urine Appearance Urine pH Ur Specific [place] Urine Protein Urine Glucose (UA) Urine Ketones Urine Blood Urine Nitrite Ur Leukocyte Esterase Urine RBC Urine WBC Ur Squamous Epith Cells Urine Bacteria Urine Mucus Urine Osmolality Ur Random Sodium Ur Random Potassium Ur Random Chloride Stool Occult Blood Stool Leukocytes, Qual Random Vancomycin Digoxin C. difficile Tox B Gene COVID-19 (JESSY) COVID-19 Clin Com Influenza Type A (PCR) Influenza Type B (PCR) RSV RNA Qual (PCR) SARS-CoV-2 RNA (RT-PCR) Blood Type Antibody Screen Crossmatch 11/24/21 11/24/21 11/24/21 20:38 20:38 20:38 WBC RBC Hgb Hct MCV MCH MCHC RDW Plt Count MPV Immature Gran % (Auto) Neut % (Auto) Lymph % (Auto) Grainger % (Auto) Eos % (Auto) Baso % (Auto) Lymph # (Auto) [place]inger # (Auto) Eos # (Auto) Baso # (Auto) Abs Immat Gran (auto) Absolute Neuts (auto) Absolute Nucleated RBC Nucleated RBC % (auto) Neutrophils % (Manual) Band Neutrophils % Lymphocytes % (Manual) Monocytes % (Manual) Abs Neuts (Manual) Lymphocytes # (Manual) Monocytes # (Manual) Platelet Estimate Plt Morphology Comment RBC Morphology Acanthocytes (Spur) Smear Tech's Comments Smear Path Review PT 14.7 H INR 1.3 H APTT 38.7 H O2 Saturation ABG pH at Pt Temp ABG pH (Temp Correct) ABG pCO2 at Pt Temp ABG pCO2 (Temp Corrct ABG pO2 at Pt Temp ABG pO2 (Temp Correct ABG HCO3 ABG Base Excess (Actual) VBG pH VBG pCO2 VBG pO2 VBG HCO3 VBG O2 Saturation VBG Base Excess Sodium Potassium Chloride Carbon Dioxide Anion Gap BUN Creatinine Estim Creat Clear Calc Estimated GFR POC Glucose Random Glucose Fasting Glucose Osmolality 256 L Lactic Acid Calcium Phosphorus Magnesium Transferrin Total Bilirubin Direct Bilirubin AST ALT Alkaline Phosphatase Ammonia Troponin I High Sens B-Natriuretic Peptide Total Protein Albumin Procalcitonin TSH Random Cortisol Urine Color Urine Appearance Urine pH Ur Specific [place] Urine Protein Urine Glucose (UA) Urine Ketones Urine Blood Urine Nitrite Ur Leukocyte Esterase Urine RBC Urine WBC Ur Squamous Epith Cells Urine Bacteria Urine Mucus Urine Osmolality Ur Random Sodium Ur Random Potassium Ur Random Chloride Stool Occult Blood Stool Leukocytes, Qual Random Vancomycin Digoxin C. difficile Tox B Gene COVID-19 (JESSY) Negative COVID-19 Clin Com See Note Influenza Type A (PCR) Influenza Type B (PCR) RSV RNA Qual (PCR) SARS-CoV-2 RNA (RT-PCR) Blood Type Antibody Screen Crossmatch 11/24/21 11/25/21 11/25/21 22:10 00:40 01:47 WBC RBC Hgb Hct MCV MCH MCHC RDW Plt Count MPV Immature Gran % (Auto) Neut % (Auto) Lymph % (Auto) Grainger % (Auto) Eos % (Auto) Baso % (Auto) Lymph # (Auto) Grainger # (Auto) Eos # (Auto) Baso # (Auto) Abs Immat Gran (auto) Absolute Neuts (auto) Absolute Nucleated RBC Nucleated RBC % (auto) Neutrophils % (Manual) Band Neutrophils % Lymphocytes % (Manual) Monocytes % (Manual) Abs Neuts (Manual) Lymphocytes # (Manual) Monocytes # (Manual) Platelet Estimate Plt Morphology Comment RBC Morphology Acanthocytes (Spur) Smear Tech's Comments Smear Path Review PT INR APTT O2 Saturation ABG pH at Pt Temp ABG pH (Temp Correct) ABG pCO2 at Pt Temp ABG pCO2 (Temp Corrct ABG pO2 at Pt Temp ABG pO2 (Temp Correct ABG HCO3 ABG Base Excess (Actual) VBG pH VBG pCO2 VBG pO2 VBG HCO3 VBG O2 Saturation VBG Base Excess Sodium 121 L Potassium 5.8 H Chloride 89 L Carbon Dioxide 27 Anion Gap 11 L BUN Creatinine Estim Creat Clear Calc Estimated GFR POC Glucose Random Glucose Fasting Glucose Osmolality Lactic Acid 1.2 Calcium Phosphorus Magnesium Transferrin Total Bilirubin Direct Bilirubin AST ALT Alkaline Phosphatase Ammonia Troponin I High Sens B-Natriuretic Peptide Total Protein Albumin Procalcitonin TSH Random Cortisol Urine Color DK YELLOW Urine Appearance HAZY Urine pH 5.5 Ur Specific [place] >= 1.030 H Urine Protein 2+ H Urine Glucose (UA) NEG Urine Ketones NEG Urine Blood NEG Urine Nitrite NEG Ur Leukocyte Esterase NEG Urine RBC 0 Urine WBC 10-14 H Ur Squamous Epith Cells 3+ Urine Bacteria 3+ Urine Mucus 2+ Urine Osmolality Ur Random Sodium Ur Random Potassium Ur Random Chloride Stool Occult Blood Stool Leukocytes, Qual Random Vancomycin Digoxin C. difficile Tox B Gene COVID-19 (JESSY) COVID-19 Clin Com Influenza Type A (PCR) Influenza Type B (PCR) RSV RNA Qual (PCR) SARS-CoV-2 RNA (RT-PCR) Blood Type Antibody Screen Crossmatch 11/25/21 11/25/21 11/25/21 02:24 03:34 05:46 WBC RBC Hgb Hct MCV MCH MCHC RDW Plt Count MPV Immature Gran % (Auto) Neut % (Auto) Lymph % (Auto) [place]inger % (Auto) Eos % (Auto) Baso % (Auto) Lymph # (Auto) [place] # (Auto) Eos # (Auto) Baso # (Auto) Abs Immat Gran (auto) Absolute Neuts (auto) Absolute Nucleated RBC Nucleated RBC % (auto) Neutrophils % (Manual) Band Neutrophils % Lymphocytes % (Manual) Monocytes % (Manual) Abs Neuts (Manual) Lymphocytes # (Manual) Monocytes # (Manual) Platelet Estimate Plt Morphology Comment RBC Morphology Acanthocytes (Spur) Smear Tech's Comments Smear Path Review PT INR APTT O2 Saturation ABG pH at Pt Temp ABG pH (Temp Correct) ABG pCO2 at Pt Temp ABG pCO2 (Temp Corrct ABG pO2 at Pt Temp ABG pO2 (Temp Correct ABG HCO3 ABG Base Excess (Actual) VBG pH VBG pCO2 VBG pO2 VBG HCO3 VBG O2 Saturation VBG Base Excess Sodium Potassium Chloride Carbon Dioxide Anion Gap BUN Creatinine Estim Creat Clear Calc Estimated GFR POC Glucose 30 L* 29 L* 72 Random Glucose Fasting Glucose Osmolality Lactic Acid Calcium Phosphorus Magnesium Transferrin Total Bilirubin Direct Bilirubin AST ALT Alkaline Phosphatase Ammonia Troponin I High Sens B-Natriuretic Peptide Total Protein Albumin Procalcitonin TSH Random Cortisol Urine Color Urine Appearance Urine pH Ur Specific [place] Urine Protein Urine Glucose (UA) Urine Ketones Urine Blood Urine Nitrite Ur Leukocyte Esterase Urine RBC Urine WBC Ur Squamous Epith Cells Urine Bacteria Urine Mucus Urine Osmolality Ur Random Sodium Ur Random Potassium Ur Random Chloride Stool Occult Blood Stool Leukocytes, Qual Random Vancomycin Digoxin C. difficile Tox B Gene COVID-19 (JESSY) COVID-19 Clin Com Influenza Type A (PCR) Influenza Type B (PCR) RSV RNA Qual (PCR) SARS-CoV-2 RNA (RT-PCR) Blood Type Antibody Screen Crossmatch 11/25/21 11/25/21 11/25/21 08:24 08:24 08:29 WBC 16.6 H RBC 4.86 Hgb 9.3 L Hct 32.4 L MCV 66.7 L MCH 19.1 L MCHC 28.7 L RDW 20.8 H Plt Count 372 MPV 9.6 Immature Gran % (Auto) 1.1 H Neut % (Auto) 83.4 H Lymph % (Auto) 8.6 L Grainger % (Auto) 6.4 Eos % (Auto) 0.3 Baso % (Auto) 0.2 Lymph # (Auto) 1.4 [place]inger # (Auto) 1.1 Eos # (Auto) 0.1 Baso # (Auto) 0.0 Abs Immat Gran (auto) 0.18 H Absolute Neuts (auto) 13.9 H Absolute Nucleated RBC 0.070 H Nucleated RBC % (auto) 0.4 H Neutrophils % (Manual) Band Neutrophils % Lymphocytes % (Manual) Monocytes % (Manual) Abs Neuts (Manual) Lymphocytes # (Manual) Monocytes # (Manual) Platelet Estimate Plt Morphology Comment RBC Morphology Acanthocytes (Spur) Smear Tech's Comments Smear Path Review PT INR APTT O2 Saturation ABG pH at Pt Temp ABG pH (Temp Correct) ABG pCO2 at Pt Temp ABG pCO2 (Temp Corrct ABG pO2 at Pt Temp ABG pO2 (Temp Correct ABG HCO3 ABG Base Excess (Actual) VBG pH VBG pCO2 VBG pO2 VBG HCO3 VBG O2 Saturation VBG Base Excess Sodium 120 L* Potassium 5.4 H Chloride 87 L Carbon Dioxide 26 Anion Gap 12 BUN 13 Creatinine 0.77 Estim Creat Clear Calc 89.3 Estimated GFR > 60 POC Glucose 107 Random Glucose 96 Fasting Glucose Osmolality Lactic Acid Calcium 9.1 Phosphorus Magnesium Transferrin Total Bilirubin Direct Bilirubin AST ALT Alkaline Phosphatase Ammonia Troponin I High Sens B-Natriuretic Peptide Total Protein Albumin Procalcitonin TSH Random Cortisol Urine Color Urine Appearance Urine pH Ur Specific [place] Urine Protein Urine Glucose (UA) Urine Ketones Urine Blood Urine Nitrite Ur Leukocyte Esterase Urine RBC Urine WBC Ur Squamous Epith Cells Urine Bacteria Urine Mucus Urine Osmolality Ur Random Sodium Ur Random Potassium Ur Random Chloride Stool Occult Blood Stool Leukocytes, Qual Random Vancomycin Digoxin C. difficile Tox B Gene COVID-19 (JESSY) COVID-19 Clin Com Influenza Type A (PCR) Influenza Type B (PCR) RSV RNA Qual (PCR) SARS-CoV-2 RNA (RT-PCR) Blood Type Antibody Screen Crossmatch 11/25/21 11/25/21 11/25/21 11:28 11:28 16:51 WBC RBC Hgb Hct MCV MCH MCHC RDW Plt Count MPV Immature Gran % (Auto) Neut % (Auto) Lymph % (Auto) [place] % (Auto) Eos % (Auto) Baso % (Auto) Lymph # (Auto) [place] # (Auto) Eos # (Auto) Baso # (Auto) Abs Immat Gran (auto) Absolute Neuts (auto) Absolute Nucleated RBC Nucleated RBC % (auto) Neutrophils % (Manual) Band Neutrophils % Lymphocytes % (Manual) Monocytes % (Manual) Abs Neuts (Manual) Lymphocytes # (Manual) Monocytes # (Manual) Platelet Estimate Plt Morphology Comment RBC Morphology Acanthocytes (Spur) Smear Tech's Comments Smear Path Review PT INR APTT O2 Saturation ABG pH at Pt Temp ABG pH (Temp Correct) ABG pCO2 at Pt Temp ABG pCO2 (Temp Corrct ABG pO2 at Pt Temp ABG pO2 (Temp Correct ABG HCO3 ABG Base Excess (Actual) VBG pH VBG pCO2 VBG pO2 VBG HCO3 VBG O2 Saturation VBG Base Excess Sodium Potassium Chloride Carbon Dioxide Anion Gap BUN Creatinine Estim Creat Clear Calc Estimated GFR POC Glucose Random Glucose Fasting Glucose Osmolality 255 L Lactic Acid Calcium Phosphorus Magnesium Transferrin Total Bilirubin Direct Bilirubin AST ALT Alkaline Phosphatase Ammonia Troponin I High Sens B-Natriuretic Peptide Total Protein Albumin Procalcitonin TSH Random Cortisol Urine Color Urine Appearance Urine pH Ur Specific [place] Urine Protein Urine Glucose (UA) Urine Ketones Urine Blood Urine Nitrite Ur Leukocyte Esterase Urine RBC Urine WBC Ur Squamous Epith Cells Urine Bacteria Urine Mucus Urine Osmolality 549 Ur Random Sodium < 20.0 Ur Random Potassium 79.7 Ur Random Chloride Stool Occult Blood Stool Leukocytes, Qual Random Vancomycin Digoxin C. difficile Tox B Gene COVID-19 (JESSY) COVID-19 Clin Com Influenza Type A (PCR) Influenza Type B (PCR) RSV RNA Qual (PCR) SARS-CoV-2 RNA (RT-PCR) Blood Type Antibody Screen Crossmatch 11/25/21 11/25/21 11/25/21 16:51 20:22 21:06 WBC RBC Hgb Hct MCV MCH MCHC RDW Plt Count MPV Immature Gran % (Auto) Neut % (Auto) Lymph % (Auto) [place] % (Auto) Eos % (Auto) Baso % (Auto) Lymph # (Auto) [place] # (Auto) Eos # (Auto) Baso # (Auto) Abs Immat Gran (auto) Absolute Neuts (auto) Absolute Nucleated RBC Nucleated RBC % (auto) Neutrophils % (Manual) Band Neutrophils % Lymphocytes % (Manual) Monocytes % (Manual) Abs Neuts (Manual) Lymphocytes # (Manual) Monocytes # (Manual) Platelet Estimate Plt Morphology Comment RBC Morphology Acanthocytes (Spur) Smear Tech's Comments Smear Path Review PT INR APTT O2 Saturation ABG pH at Pt Temp ABG pH (Temp Correct) ABG pCO2 at Pt Temp ABG pCO2 (Temp Corrct ABG pO2 at Pt Temp ABG pO2 (Temp Correct ABG HCO3 ABG Base Excess (Actual) VBG pH VBG pCO2 VBG pO2 VBG HCO3 VBG O2 Saturation VBG Base Excess Sodium Potassium Chloride Carbon Dioxide Anion Gap BUN Creatinine Estim Creat Clear Calc Estimated GFR POC Glucose 50 L* 75 Random Glucose Fasting Glucose Osmolality Lactic Acid Calcium Phosphorus Magnesium Transferrin Total Bilirubin Direct Bilirubin AST ALT Alkaline Phosphatase Ammonia Troponin I High Sens B-Natriuretic Peptide Total Protein Albumin Procalcitonin TSH 1.33 Random Cortisol Urine Color Urine Appearance Urine pH Ur Specific [place] Urine Protein Urine Glucose (UA) Urine Ketones Urine Blood Urine Nitrite Ur Leukocyte Esterase Urine RBC Urine WBC Ur Squamous Epith Cells Urine Bacteria Urine Mucus Urine Osmolality Ur Random Sodium Ur Random Potassium Ur Random Chloride Stool Occult Blood Stool Leukocytes, Qual Random Vancomycin Digoxin C. difficile Tox B Gene COVID-19 (JESSY) COVID-19 Clin Com Influenza Type A (PCR) Influenza Type B (PCR) RSV RNA Qual (PCR) SARS-CoV-2 RNA (RT-PCR) Blood Type Antibody Screen Crossmatch 11/25/21 11/26/21 11/26/21 22:36 00:18 06:32 WBC 15.7 H RBC 4.85 Hgb 9.2 L Hct 31.2 L MCV 64.3 L MCH 19.0 L MCHC 29.5 L RDW 20.1 H Plt Count 392 MPV 9.1 L Immature Gran % (Auto) 0.8 H Neut % (Auto) 83.6 H Lymph % (Auto) 7.0 L [place]inger % (Auto) 8.2 Eos % (Auto) 0.3 Baso % (Auto) 0.1 Lymph # (Auto) 1.1 L [place] # (Auto) 1.3 H Eos # (Auto) 0.0 Baso # (Auto) 0.0 Abs Immat Gran (auto) 0.13 H Absolute Neuts (auto) 13.1 H Absolute Nucleated RBC 0.100 H Nucleated RBC % (auto) 0.6 H Neutrophils % (Manual) Band Neutrophils % Lymphocytes % (Manual) Monocytes % (Manual) Abs Neuts (Manual) Lymphocytes # (Manual) Monocytes # (Manual) Platelet Estimate Plt Morphology Comment RBC Morphology Acanthocytes (Spur) Smear Tech's Comments Smear Path Review SEE NOTE PT INR APTT O2 Saturation ABG pH at Pt Temp ABG pH (Temp Correct) ABG pCO2 at Pt Temp ABG pCO2 (Temp Corrct ABG pO2 at Pt Temp ABG pO2 (Temp Correct ABG HCO3 ABG Base Excess (Actual) VBG pH VBG pCO2 VBG pO2 VBG HCO3 VBG O2 Saturation VBG Base Excess Sodium Potassium Chloride Carbon Dioxide Anion Gap BUN Creatinine Estim Creat Clear Calc Estimated GFR POC Glucose 99 116 H Random Glucose Fasting Glucose Osmolality Lactic Acid Calcium Phosphorus Magnesium Transferrin Total Bilirubin Direct Bilirubin AST ALT Alkaline Phosphatase Ammonia Troponin I High Sens B-Natriuretic Peptide Total Protein Albumin Procalcitonin TSH Random Cortisol Urine Color Urine Appearance Urine pH Ur Specific [place] Urine Protein Urine Glucose (UA) Urine Ketones Urine Blood Urine Nitrite Ur Leukocyte Esterase Urine RBC Urine WBC Ur Squamous Epith Cells Urine Bacteria Urine Mucus Urine Osmolality Ur Random Sodium Ur Random Potassium Ur Random Chloride Stool Occult Blood Stool Leukocytes, Qual Random Vancomycin Digoxin C. difficile Tox B Gene COVID-19 (JESSY) COVID-19 Clin Com Influenza Type A (PCR) Influenza Type B (PCR) RSV RNA Qual (PCR) SARS-CoV-2 RNA (RT-PCR) Blood Type Antibody Screen Crossmatch 11/26/21 11/26/21 11/27/21 06:32 06:32 08:14 WBC 10.3 RBC 5.13 Hgb 9.7 L Hct 32.8 L MCV 63.9 L MCH 18.9 L MCHC 29.6 L RDW 20.3 H Plt Count 401 H MPV 9.1 L Immature Gran % (Auto) 1.5 H Neut % (Auto) 94.9 H Lymph % (Auto) 2.7 L [place] % (Auto) 0.8 L Eos % (Auto) 0.0 Baso % (Auto) 0.1 Lymph # (Auto) 0.3 L [place] # (Auto) 0.1 Eos # (Auto) 0.0 Baso # (Auto) 0.0 Abs Immat Gran (auto) 0.15 H Absolute Neuts (auto) 9.8 H Absolute Nucleated RBC 0.070 H Nucleated RBC % (auto) 0.7 H Neutrophils % (Manual) Band Neutrophils % Lymphocytes % (Manual) Monocytes % (Manual) Abs Neuts (Manual) Lymphocytes # (Manual) Monocytes # (Manual) Platelet Estimate Plt Morphology Comment RBC Morphology Acanthocytes (Spur) Smear Tech's Comments VERIFIED Smear Path Review PT INR APTT O2 Saturation ABG pH at Pt Temp ABG pH (Temp Correct) ABG pCO2 at Pt Temp ABG pCO2 (Temp Corrct ABG pO2 at Pt Temp ABG pO2 (Temp Correct ABG HCO3 ABG Base Excess (Actual) VBG pH VBG pCO2 VBG pO2 VBG HCO3 VBG O2 Saturation VBG Base Excess Sodium 121 L Potassium 5.0 Chloride 87 L Carbon Dioxide 27 Anion Gap 12 BUN 15 Creatinine 0.78 Estim Creat Clear Calc 88.1 Estimated GFR > 60 POC Glucose Random Glucose Fasting Glucose 64 Osmolality Lactic Acid Calcium 8.7 Phosphorus Magnesium Transferrin Total Bilirubin 0.4 Direct Bilirubin AST 28 ALT 25 Alkaline Phosphatase 114 Ammonia Troponin I High Sens B-Natriuretic Peptide Total Protein 6.7 Albumin 3.7 Procalcitonin TSH Random Cortisol 19.8 Urine Color Urine Appearance Urine pH Ur Specific [place] Urine Protein Urine Glucose (UA) Urine Ketones Urine Blood Urine Nitrite Ur Leukocyte Esterase Urine RBC Urine WBC Ur Squamous Epith Cells Urine Bacteria Urine Mucus Urine Osmolality Ur Random Sodium Ur Random Potassium Ur Random Chloride Stool Occult Blood Stool Leukocytes, Qual Random Vancomycin Digoxin C. difficile Tox B Gene COVID-19 (JESSY) COVID-19 Clin Com Influenza Type A (PCR) Influenza Type B (PCR) RSV RNA Qual (PCR) SARS-CoV-2 RNA (RT-PCR) Blood Type Antibody Screen Crossmatch 11/27/21 11/27/21 11/27/21 08:14 21:21 21:31 WBC 9.9 RBC 4.52 Hgb 8.6 L Hct 29.0 L MCV 64.2 L MCH 19.0 L MCHC 29.7 L RDW 19.9 H Plt Count 341 MPV 9.3 L Immature Gran % (Auto) 0.7 H Neut % (Auto) 94.3 H Lymph % (Auto) 2.4 L [place] % (Auto) 2.6 Eos % (Auto) 0.0 Baso % (Auto) 0.0 Lymph # (Auto) 0.2 L [place] # (Auto) 0.3 Eos # (Auto) 0.0 Baso # (Auto) 0.0 Abs Immat Gran (auto) 0.07 H Absolute Neuts (auto) 9.3 H Absolute Nucleated RBC 0.100 H Nucleated RBC % (auto) 1.0 H Neutrophils % (Manual) Band Neutrophils % Lymphocytes % (Manual) Monocytes % (Manual) Abs Neuts (Manual) Lymphocytes # (Manual) Monocytes # (Manual) Platelet Estimate Plt Morphology Comment RBC Morphology Acanthocytes (Spur) Smear Tech's Comments VERIFIED Smear Path Review PT INR APTT O2 Saturation ABG pH at Pt Temp ABG pH (Temp Correct) ABG pCO2 at Pt Temp ABG pCO2 (Temp Corrct ABG pO2 at Pt Temp ABG pO2 (Temp Correct ABG HCO3 ABG Base Excess (Actual) VBG pH VBG pCO2 VBG pO2 VBG HCO3 VBG O2 Saturation VBG Base Excess Sodium 124 L Potassium 5.7 H Chloride 88 L Carbon Dioxide 25 Anion Gap 17 BUN 26 H D Creatinine 0.83 Estim Creat Clear Calc 92.7 Estimated GFR > 60 POC Glucose 215 H Random Glucose Fasting Glucose 193 H Osmolality Lactic Acid Calcium 9.0 Phosphorus Magnesium Transferrin Total Bilirubin 0.5 Direct Bilirubin AST 31 ALT 30 Alkaline Phosphatase 121 H Ammonia Troponin I High Sens B-Natriuretic Peptide Total Protein 6.8 Albumin 3.8 Procalcitonin TSH Random Cortisol Urine Color Urine Appearance Urine pH Ur Specific [place] Urine Protein Urine Glucose (UA) Urine Ketones Urine Blood Urine Nitrite Ur Leukocyte Esterase Urine RBC Urine WBC Ur Squamous Epith Cells Urine Bacteria Urine Mucus Urine Osmolality Ur Random Sodium Ur Random Potassium Ur Random Chloride Stool Occult Blood Stool Leukocytes, Qual Random Vancomycin Digoxin C. difficile Tox B Gene COVID-19 (JESSY) COVID-19 Clin Com Influenza Type A (PCR) Influenza Type B (PCR) RSV RNA Qual (PCR) SARS-CoV-2 RNA (RT-PCR) Blood Type Antibody Screen Crossmatch 11/27/21 11/27/21 11/28/21 21:31 21:31 00:19 WBC RBC Hgb Hct MCV MCH MCHC RDW Plt Count MPV Immature Gran % (Auto) Neut % (Auto) Lymph % (Auto) [place] % (Auto) Eos % (Auto) Baso % (Auto) Lymph # (Auto) [place] # (Auto) Eos # (Auto) Baso # (Auto) Abs Immat Gran (auto) Absolute Neuts (auto) Absolute Nucleated RBC Nucleated RBC % (auto) Neutrophils % (Manual) Band Neutrophils % Lymphocytes % (Manual) Monocytes % (Manual) Abs Neuts (Manual) Lymphocytes # (Manual) Monocytes # (Manual) Platelet Estimate Plt Morphology Comment RBC Morphology Acanthocytes (Spur) Smear Tech's Comments Smear Path Review PT 26.2 H INR 2.3 H APTT O2 Saturation ABG pH at Pt Temp ABG pH (Temp Correct) ABG pCO2 at Pt Temp ABG pCO2 (Temp Corrct ABG pO2 at Pt Temp ABG pO2 (Temp Correct ABG HCO3 ABG Base Excess (Actual) VBG pH VBG pCO2 VBG pO2 VBG HCO3 VBG O2 Saturation VBG Base Excess Sodium 123 L Potassium 5.0 Chloride 86 L Carbon Dioxide 26 Anion Gap 16 BUN 37 H Creatinine 1.00 Estim Creat Clear Calc 77.0 Estimated GFR 55 POC Glucose 225 H Random Glucose 269 H Fasting Glucose Osmolality Lactic Acid Calcium 8.7 Phosphorus 3.6 Magnesium 2.0 Transferrin Total Bilirubin 0.5 Direct Bilirubin 0.3 AST 27 ALT 26 Alkaline Phosphatase 99 Ammonia Troponin I High Sens B-Natriuretic Peptide Total Protein 5.9 L Albumin 3.3 L Procalcitonin TSH Random Cortisol Urine Color Urine Appearance Urine pH Ur Specific [place] Urine Protein Urine Glucose (UA) Urine Ketones Urine Blood Urine Nitrite Ur Leukocyte Esterase Urine RBC Urine WBC Ur Squamous Epith Cells Urine Bacteria Urine Mucus Urine Osmolality Ur Random Sodium Ur Random Potassium Ur Random Chloride Stool Occult Blood Stool Leukocytes, Qual Random Vancomycin Digoxin C. difficile Tox B Gene COVID-19 (JESSY) COVID-19 Clin Com Influenza Type A (PCR) Influenza Type B (PCR) RSV RNA Qual (PCR) SARS-CoV-2 RNA (RT-PCR) Blood Type Antibody Screen Crossmatch 11/28/21 11/28/21 11/28/21 01:02 03:36 03:37 WBC RBC Hgb Hct MCV MCH MCHC RDW Plt Count MPV Immature Gran % (Auto) Neut % (Auto) Lymph % (Auto) [place] % (Auto) Eos % (Auto) Baso % (Auto) Lymph # (Auto) [place] # (Auto) Eos # (Auto) Baso # (Auto) Abs Immat Gran (auto) Absolute Neuts (auto) Absolute Nucleated RBC Nucleated RBC % (auto) Neutrophils % (Manual) Band Neutrophils % Lymphocytes % (Manual) Monocytes % (Manual) Abs Neuts (Manual) Lymphocytes # (Manual) Monocytes # (Manual) Platelet Estimate Plt Morphology Comment RBC Morphology Acanthocytes (Spur) Smear Tech's Comments Smear Path Review PT INR APTT O2 Saturation ABG pH at Pt Temp ABG pH (Temp Correct) ABG pCO2 at Pt Temp ABG pCO2 (Temp Corrct ABG pO2 at Pt Temp ABG pO2 (Temp Correct ABG HCO3 ABG Base Excess (Actual) VBG pH 7.46 H VBG pCO2 35 VBG pO2 40 VBG HCO3 25 VBG O2 Saturation 58.0 VBG Base Excess 1.6 Sodium Potassium Chloride Carbon Dioxide Anion Gap BUN Creatinine Estim Creat Clear Calc Estimated GFR POC Glucose Random Glucose Fasting Glucose Osmolality Lactic Acid Calcium Phosphorus Magnesium Transferrin Total Bilirubin Direct Bilirubin AST ALT Alkaline Phosphatase Ammonia Troponin I High Sens B-Natriuretic Peptide Total Protein Albumin Procalcitonin TSH Random Cortisol Urine Color Urine Appearance Urine pH Ur Specific [place] Urine Protein Urine Glucose (UA) Urine Ketones Urine Blood Urine Nitrite Ur Leukocyte Esterase Urine RBC Urine WBC Ur Squamous Epith Cells Urine Bacteria Urine Mucus Urine Osmolality 539 Ur Random Sodium < 20.0 Ur Random Potassium Ur Random Chloride Stool Occult Blood Stool Leukocytes, Qual Random Vancomycin Digoxin C. difficile Tox B Gene COVID-19 (JESSY) COVID-19 Clin Com Influenza Type A (PCR) Influenza Type B (PCR) RSV RNA Qual (PCR) SARS-CoV-2 RNA (RT-PCR) Blood Type Antibody Screen Crossmatch 11/28/21 11/28/21 11/28/21 05:21 05:30 05:30 WBC 10.8 RBC 4.50 Hgb 8.5 L Hct 28.2 L MCV 62.7 L MCH 18.9 L MCHC 30.1 L RDW 19.6 H Plt Count 308 MPV 9.0 L Immature Gran % (Auto) 1.1 H Neut % (Auto) 90.0 H Lymph % (Auto) 4.0 L [place] % (Auto) 4.8 Eos % (Auto) 0.0 Baso % (Auto) 0.1 Lymph # (Auto) 0.4 L [place] # (Auto) 0.5 Eos # (Auto) 0.0 Baso # (Auto) 0.0 Abs Immat Gran (auto) 0.12 H Absolute Neuts (auto) 9.7 H Absolute Nucleated RBC 0.130 H Nucleated RBC % (auto) 1.2 H Neutrophils % (Manual) Band Neutrophils % Lymphocytes % (Manual) Monocytes % (Manual) Abs Neuts (Manual) Lymphocytes # (Manual) Monocytes # (Manual) Platelet Estimate Plt Morphology Comment RBC Morphology Acanthocytes (Spur) Smear Tech's Comments Smear Path Review PT INR APTT O2 Saturation ABG pH at Pt Temp ABG pH (Temp Correct) ABG pCO2 at Pt Temp ABG pCO2 (Temp Corrct ABG pO2 at Pt Temp ABG pO2 (Temp Correct ABG HCO3 ABG Base Excess (Actual) VBG pH 7.52 H VBG pCO2 29 VBG pO2 45 VBG HCO3 24 VBG O2 Saturation 71.0 VBG Base Excess 2.4 Sodium 123 L Potassium 5.0 Chloride 88 L Carbon Dioxide 24 Anion Gap 16 BUN 33 H Creatinine 0.82 Estim Creat Clear Calc 93.9 Estimated GFR > 60 POC Glucose Random Glucose 238 H Fasting Glucose Osmolality Lactic Acid Calcium 8.7 Phosphorus 2.6 L Magnesium 1.9 Transferrin Total Bilirubin Direct Bilirubin AST ALT Alkaline Phosphatase Ammonia Troponin I High Sens B-Natriuretic Peptide Total Protein Albumin Procalcitonin TSH Random Cortisol Urine Color Urine Appearance Urine pH Ur Specific [place] Urine Protein Urine Glucose (UA) Urine Ketones Urine Blood Urine Nitrite Ur Leukocyte Esterase Urine RBC Urine WBC Ur Squamous Epith Cells Urine Bacteria Urine Mucus Urine Osmolality Ur Random Sodium Ur Random Potassium Ur Random Chloride Stool Occult Blood Stool Leukocytes, Qual Random Vancomycin Digoxin C. difficile Tox B Gene COVID-19 (JESSY) COVID-19 Clin Com Influenza Type A (PCR) Influenza Type B (PCR) RSV RNA Qual (PCR) SARS-CoV-2 RNA (RT-PCR) Blood Type Antibody Screen Crossmatch 11/28/21 11/28/21 11/28/21 05:30 11:51 13:27 WBC RBC Hgb Hct MCV MCH MCHC RDW Plt Count MPV Immature Gran % (Auto) Neut % (Auto) Lymph % (Auto) [place] % (Auto) Eos % (Auto) Baso % (Auto) Lymph # (Auto) [place] # (Auto) Eos # (Auto) Baso # (Auto) Abs Immat Gran (auto) Absolute Neuts (auto) Absolute Nucleated RBC Nucleated RBC % (auto) Neutrophils % (Manual) Band Neutrophils % Lymphocytes % (Manual) Monocytes % (Manual) Abs Neuts (Manual) Lymphocytes # (Manual) Monocytes # (Manual) Platelet Estimate Plt Morphology Comment RBC Morphology Acanthocytes (Spur) Smear Tech's Comments Smear Path Review PT INR APTT O2 Saturation ABG pH at Pt Temp ABG pH (Temp Correct) ABG pCO2 at Pt Temp ABG pCO2 (Temp Corrct ABG pO2 at Pt Temp ABG pO2 (Temp Correct ABG HCO3 ABG Base Excess (Actual) VBG pH VBG pCO2 VBG pO2 VBG HCO3 VBG O2 Saturation VBG Base Excess Sodium Potassium Chloride Carbon Dioxide Anion Gap BUN Creatinine Estim Creat Clear Calc Estimated GFR POC Glucose 243 H Random Glucose Fasting Glucose Osmolality Lactic Acid Calcium Phosphorus Magnesium Transferrin Total Bilirubin Direct Bilirubin AST ALT Alkaline Phosphatase Ammonia Troponin I High Sens B-Natriuretic Peptide 170 H Total Protein Albumin Procalcitonin TSH Random Cortisol Urine Color Urine Appearance Urine pH Ur Specific [place] Urine Protein Urine Glucose (UA) Urine Ketones Urine Blood Urine Nitrite Ur Leukocyte Esterase Urine RBC Urine WBC Ur Squamous Epith Cells Urine Bacteria Urine Mucus Urine Osmolality Ur Random Sodium Ur Random Potassium Ur Random Chloride < 20.0 Stool Occult Blood Stool Leukocytes, Qual Random Vancomycin Digoxin C. difficile Tox B Gene COVID-19 (JESSY) COVID-19 Clin Com Influenza Type A (PCR) Influenza Type B (PCR) RSV RNA Qual (PCR) SARS-CoV-2 RNA (RT-PCR) Blood Type Antibody Screen Crossmatch 11/28/21 11/28/21 11/29/21 17:30 18:09 05:02 WBC 11.8 H RBC 4.53 Hgb 8.6 L Hct 27.9 L MCV 61.6 L MCH 19.0 L MCHC 30.8 L RDW 19.9 H Plt Count 313 MPV 9.6 Immature Gran % (Auto) 0.8 H Neut % (Auto) 92.8 H Lymph % (Auto) 1.3 L [place] % (Auto) 5.0 Eos % (Auto) 0.0 Baso % (Auto) 0.1 Lymph # (Auto) 0.2 L [place] # (Auto) 0.6 Eos # (Auto) 0.0 Baso # (Auto) 0.0 Abs Immat Gran (auto) 0.10 H Absolute Neuts (auto) 11.0 H Absolute Nucleated RBC 0.090 H Nucleated RBC % (auto) 0.8 H Neutrophils % (Manual) Band Neutrophils % Lymphocytes % (Manual) Monocytes % (Manual) Abs Neuts (Manual) Lymphocytes # (Manual) Monocytes # (Manual) Platelet Estimate Plt Morphology Comment RBC Morphology Acanthocytes (Spur) Smear Tech's Comments VERIFIED Smear Path Review PT INR APTT O2 Saturation ABG pH at Pt Temp ABG pH (Temp Correct) ABG pCO2 at Pt Temp ABG pCO2 (Temp Corrct ABG pO2 at Pt Temp ABG pO2 (Temp Correct ABG HCO3 ABG Base Excess (Actual) VBG pH VBG pCO2 VBG pO2 VBG HCO3 VBG O2 Saturation VBG Base Excess Sodium 126 L Potassium 4.4 Chloride 88 L Carbon Dioxide 29 Anion Gap 13 BUN 36 H Creatinine 0.85 Estim Creat Clear Calc 90.6 Estimated GFR > 60 POC Glucose 242 H Random Glucose 282 H Fasting Glucose Osmolality Lactic Acid Calcium 9.0 Phosphorus Magnesium Transferrin Total Bilirubin Direct Bilirubin AST ALT Alkaline Phosphatase Ammonia Troponin I High Sens B-Natriuretic Peptide Total Protein Albumin Procalcitonin TSH Random Cortisol Urine Color Urine Appearance Urine pH Ur Specific [place] Urine Protein Urine Glucose (UA) Urine Ketones Urine Blood Urine Nitrite Ur Leukocyte Esterase Urine RBC Urine WBC Ur Squamous Epith Cells Urine Bacteria Urine Mucus Urine Osmolality Ur Random Sodium Ur Random Potassium Ur Random Chloride Stool Occult Blood Stool Leukocytes, Qual Random Vancomycin Digoxin C. difficile Tox B Gene COVID-19 (JESSY) COVID-19 Clin Com Influenza Type A (PCR) Influenza Type B (PCR) RSV RNA Qual (PCR) SARS-CoV-2 RNA (RT-PCR) Blood Type Antibody Screen Crossmatch 11/29/21 11/29/21 11/29/21 05:02 05:02 05:03 WBC RBC Hgb Hct MCV MCH MCHC RDW Plt Count MPV Immature Gran % (Auto) Neut % (Auto) Lymph % (Auto) [place] % (Auto) Eos % (Auto) Baso % (Auto) Lymph # (Auto) [place] # (Auto) Eos # (Auto) Baso # (Auto) Abs Immat Gran (auto) Absolute Neuts (auto) Absolute Nucleated RBC Nucleated RBC % (auto) Neutrophils % (Manual) Band Neutrophils % Lymphocytes % (Manual) Monocytes % (Manual) Abs Neuts (Manual) Lymphocytes # (Manual) Monocytes # (Manual) Platelet Estimate Plt Morphology Comment RBC Morphology Acanthocytes (Spur) Smear Tech's Comments Smear Path Review PT INR APTT O2 Saturation ABG pH at Pt Temp ABG pH (Temp Correct) ABG pCO2 at Pt Temp ABG pCO2 (Temp Corrct ABG pO2 at Pt Temp ABG pO2 (Temp Correct ABG HCO3 ABG Base Excess (Actual) VBG pH 7.55 H VBG pCO2 29 VBG pO2 47 VBG HCO3 26 VBG O2 Saturation 77.0 VBG Base Excess 4.5 Sodium 128 L Potassium 4.7 Chloride 92 L Carbon Dioxide 28 Anion Gap 13 BUN 33 H Creatinine 0.87 Estim Creat Clear Calc 88.5 Estimated GFR > 60 POC Glucose Random Glucose 271 H Fasting Glucose Osmolality Lactic Acid Calcium 8.9 Phosphorus 2.7 Magnesium 2.1 Transferrin Total Bilirubin Direct Bilirubin AST ALT Alkaline Phosphatase Ammonia Troponin I High Sens B-Natriuretic Peptide 161 H Total Protein Albumin Procalcitonin TSH Random Cortisol Urine Color Urine Appearance Urine pH Ur Specific [place] Urine Protein Urine Glucose (UA) Urine Ketones Urine Blood Urine Nitrite Ur Leukocyte Esterase Urine RBC Urine WBC Ur Squamous Epith Cells Urine Bacteria Urine Mucus Urine Osmolality Ur Random Sodium Ur Random Potassium Ur Random Chloride Stool Occult Blood Stool Leukocytes, Qual Random Vancomycin Digoxin C. difficile Tox B Gene COVID-19 (JESSY) COVID-19 Clin Com Influenza Type A (PCR) Influenza Type B (PCR) RSV RNA Qual (PCR) SARS-CoV-2 RNA (RT-PCR) Blood Type Antibody Screen Crossmatch 11/30/21 11/30/21 11/30/21 05:46 05:46 05:57 WBC 13.7 H RBC 4.91 Hgb 9.2 L Hct 31.4 L MCV 64.0 L MCH 18.7 L MCHC 29.3 L RDW 20.5 H Plt Count 295 MPV 9.7 Immature Gran % (Auto) 0.9 H Neut % (Auto) 90.3 H Lymph % (Auto) 2.0 L [place] % (Auto) 6.7 Eos % (Auto) 0.0 Baso % (Auto) 0.1 Lymph # (Auto) 0.3 L [place] # (Auto) 0.9 Eos # (Auto) 0.0 Baso # (Auto) 0.0 Abs Immat Gran (auto) 0.12 H Absolute Neuts (auto) 12.3 H Absolute Nucleated RBC 0.040 H Nucleated RBC % (auto) 0.3 H Neutrophils % (Manual) Band Neutrophils % Lymphocytes % (Manual) Monocytes % (Manual) Abs Neuts (Manual) Lymphocytes # (Manual) Monocytes # (Manual) Platelet Estimate Plt Morphology Comment RBC Morphology Acanthocytes (Spur) Smear Tech's Comments VERIFIED Smear Path Review PT INR APTT O2 Saturation ABG pH at Pt Temp ABG pH (Temp Correct) ABG pCO2 at Pt Temp ABG pCO2 (Temp Corrct ABG pO2 at Pt Temp ABG pO2 (Temp Correct ABG HCO3 ABG Base Excess (Actual) VBG pH 7.40 VBG pCO2 45 VBG pO2 49 VBG HCO3 28 H VBG O2 Saturation 73.0 VBG Base Excess 3.7 Sodium 130 L Potassium 5.6 H Chloride 93 L Carbon Dioxide 30 H Anion Gap 13 BUN 43 H Creatinine 1.18 Estim Creat Clear Calc 65.2 Estimated GFR 46 POC Glucose Random Glucose 358 H* Fasting Glucose Osmolality Lactic Acid Calcium 8.7 Phosphorus 3.8 Magnesium 2.3 Transferrin Total Bilirubin Direct Bilirubin AST ALT Alkaline Phosphatase Ammonia Troponin I High Sens B-Natriuretic Peptide Total Protein Albumin 3.4 L Procalcitonin TSH Random Cortisol Urine Color Urine Appearance Urine pH Ur Specific [place] Urine Protein Urine Glucose (UA) Urine Ketones Urine Blood Urine Nitrite Ur Leukocyte Esterase Urine RBC Urine WBC Ur Squamous Epith Cells Urine Bacteria Urine Mucus Urine Osmolality Ur Random Sodium Ur Random Potassium Ur Random Chloride Stool Occult Blood Stool Leukocytes, Qual Random Vancomycin Digoxin C. difficile Tox B Gene COVID-19 (JESSY) COVID-19 Clin Com Influenza Type A (PCR) Influenza Type B (PCR) RSV RNA Qual (PCR) SARS-CoV-2 RNA (RT-PCR) Blood Type Antibody Screen Crossmatch 11/30/21 11/30/21 11/30/21 12:15 13:50 16:43 WBC RBC Hgb Hct MCV MCH MCHC RDW Plt Count MPV Immature Gran % (Auto) Neut % (Auto) Lymph % (Auto) [place] % (Auto) Eos % (Auto) Baso % (Auto) Lymph # (Auto) [place] # (Auto) Eos # (Auto) Baso # (Auto) Abs Immat Gran (auto) Absolute Neuts (auto) Absolute Nucleated RBC Nucleated RBC % (auto) Neutrophils % (Manual) Band Neutrophils % Lymphocytes % (Manual) Monocytes % (Manual) Abs Neuts (Manual) Lymphocytes # (Manual) Monocytes # (Manual) Platelet Estimate Plt Morphology Comment RBC Morphology Acanthocytes (Spur) Smear Tech's Comments Smear Path Review PT INR APTT O2 Saturation ABG pH at Pt Temp ABG pH (Temp Correct) ABG pCO2 at Pt Temp ABG pCO2 (Temp Corrct ABG pO2 at Pt Temp ABG pO2 (Temp Correct ABG HCO3 ABG Base Excess (Actual) VBG pH VBG pCO2 VBG pO2 VBG HCO3 VBG O2 Saturation VBG Base Excess Sodium 132 L Potassium 5.1 Chloride 93 L Carbon Dioxide 30 H Anion Gap 14 BUN 41 H Creatinine 1.16 Estim Creat Clear Calc 66.4 Estimated GFR 46 POC Glucose 260 H Random Glucose 351 H* Fasting Glucose Osmolality Lactic Acid Calcium 8.7 Phosphorus Magnesium Transferrin Total Bilirubin Direct Bilirubin AST ALT Alkaline Phosphatase Ammonia 29 Troponin I High Sens B-Natriuretic Peptide Total Protein Albumin Procalcitonin TSH Random Cortisol Urine Color Urine Appearance Urine pH Ur Specific [place] Urine Protein Urine Glucose (UA) Urine Ketones Urine Blood Urine Nitrite Ur Leukocyte Esterase Urine RBC Urine WBC Ur Squamous Epith Cells Urine Bacteria Urine Mucus Urine Osmolality Ur Random Sodium Ur Random Potassium Ur Random Chloride Stool Occult Blood Stool Leukocytes, Qual Random Vancomycin Digoxin C. difficile Tox B Gene COVID-19 (JESSY) COVID-19 Clin Com Influenza Type A (PCR) Influenza Type B (PCR) RSV RNA Qual (PCR) SARS-CoV-2 RNA (RT-PCR) Blood Type Antibody Screen Crossmatch 11/30/21 12/01/21 12/01/21 19:50 05:15 05:15 WBC 20.1 H RBC 5.09 Hgb 9.5 L Hct 32.9 L MCV 64.6 L MCH 18.7 L MCHC 28.9 L RDW 20.2 H Plt Count 325 MPV 9.1 L Immature Gran % (Auto) 0.8 H Neut % (Auto) 83.7 H Lymph % (Auto) 5.1 L [place] % (Auto) 10.2 Eos % (Auto) 0.1 Baso % (Auto) 0.1 Lymph # (Auto) 1.0 L [place] # (Auto) 2.1 H Eos # (Auto) 0.0 Baso # (Auto) 0.0 Abs Immat Gran (auto) 0.16 H Absolute Neuts (auto) 16.8 H Absolute Nucleated RBC 0.090 H Nucleated RBC % (auto) 0.4 H Neutrophils % (Manual) Band Neutrophils % Lymphocytes % (Manual) Monocytes % (Manual) Abs Neuts (Manual) Lymphocytes # (Manual) Monocytes # (Manual) Platelet Estimate Plt Morphology Comment RBC Morphology Acanthocytes (Spur) Smear Tech's Comments VERIFIED Smear Path Review PT INR APTT O2 Saturation ABG pH at Pt Temp ABG pH (Temp Correct) ABG pCO2 at Pt Temp ABG pCO2 (Temp Corrct ABG pO2 at Pt Temp ABG pO2 (Temp Correct ABG HCO3 ABG Base Excess (Actual) VBG pH VBG pCO2 VBG pO2 VBG HCO3 VBG O2 Saturation VBG Base Excess Sodium 138 Potassium 4.6 Chloride 98 Carbon Dioxide 31 H Anion Gap 14 BUN 32 H Creatinine 0.81 Estim Creat Clear Calc 95.0 Estimated GFR > 60 POC Glucose 175 H Random Glucose 110 Fasting Glucose Osmolality Lactic Acid Calcium 8.9 Phosphorus 3.0 Magnesium 2.2 Transferrin Total Bilirubin 1.0 Direct Bilirubin AST 32 H ALT 31 Alkaline Phosphatase 81 Ammonia Troponin I High Sens B-Natriuretic Peptide Total Protein 6.4 L Albumin 3.7 Procalcitonin TSH Random Cortisol Urine Color Urine Appearance Urine pH Ur Specific [place] Urine Protein Urine Glucose (UA) Urine Ketones Urine Blood Urine Nitrite Ur Leukocyte Esterase Urine RBC Urine WBC Ur Squamous Epith Cells Urine Bacteria Urine Mucus Urine Osmolality Ur Random Sodium Ur Random Potassium Ur Random Chloride Stool Occult Blood Stool Leukocytes, Qual Random Vancomycin Digoxin C. difficile Tox B Gene COVID-19 (JESSY) COVID-19 Clin Com Influenza Type A (PCR) Influenza Type B (PCR) RSV RNA Qual (PCR) SARS-CoV-2 RNA (RT-PCR) Blood Type Antibody Screen Crossmatch 12/01/21 12/01/21 12/01/21 05:29 07:29 11:39 WBC RBC Hgb Hct MCV MCH MCHC RDW Plt Count MPV Immature Gran % (Auto) Neut % (Auto) Lymph % (Auto) [place] % (Auto) Eos % (Auto) Baso % (Auto) Lymph # (Auto) [place] # (Auto) Eos # (Auto) Baso # (Auto) Abs Immat Gran (auto) Absolute Neuts (auto) Absolute Nucleated RBC Nucleated RBC % (auto) Neutrophils % (Manual) Band Neutrophils % Lymphocytes % (Manual) Monocytes % (Manual) Abs Neuts (Manual) Lymphocytes # (Manual) Monocytes # (Manual) Platelet Estimate Plt Morphology Comment RBC Morphology Acanthocytes (Spur) Smear Tech's Comments Smear Path Review PT INR APTT O2 Saturation ABG pH at Pt Temp ABG pH (Temp Correct) ABG pCO2 at Pt Temp ABG pCO2 (Temp Corrct ABG pO2 at Pt Temp ABG pO2 (Temp Correct ABG HCO3 ABG Base Excess (Actual) VBG pH 7.41 VBG pCO2 51 VBG pO2 55 VBG HCO3 33 H VBG O2 Saturation 81.0 VBG Base Excess 7.9 Sodium Potassium Chloride Carbon Dioxide Anion Gap BUN Creatinine Estim Creat Clear Calc Estimated GFR POC Glucose 119 H 150 H Random Glucose Fasting Glucose Osmolality Lactic Acid Calcium Phosphorus Magnesium Transferrin Total Bilirubin Direct Bilirubin AST ALT Alkaline Phosphatase Ammonia Troponin I High Sens B-Natriuretic Peptide Total Protein Albumin Procalcitonin TSH Random Cortisol Urine Color Urine Appearance Urine pH Ur Specific [place] Urine Protein Urine Glucose (UA) Urine Ketones Urine Blood Urine Nitrite Ur Leukocyte Esterase Urine RBC Urine WBC Ur Squamous Epith Cells Urine Bacteria Urine Mucus Urine Osmolality Ur Random Sodium Ur Random Potassium Ur Random Chloride Stool Occult Blood Stool Leukocytes, Qual Random Vancomycin Digoxin C. difficile Tox B Gene COVID-19 (JESSY) COVID-19 Clin Com Influenza Type A (PCR) Influenza Type B (PCR) RSV RNA Qual (PCR) SARS-CoV-2 RNA (RT-PCR) Blood Type Antibody Screen Crossmatch 12/01/21 12/01/21 12/02/21 16:33 20:59 05:18 WBC 22.6 H RBC 5.00 Hgb 9.5 L Hct 33.2 L MCV 66.4 L MCH 19.0 L MCHC 28.6 L RDW 21.2 H Plt Count 326 MPV 9.2 L Immature Gran % (Auto) 1.0 H Neut % (Auto) 86.5 H Lymph % (Auto) 2.2 L [place] % (Auto) 10.2 Eos % (Auto) 0.0 Baso % (Auto) 0.1 Lymph # (Auto) 0.5 L [place] # (Auto) 2.3 H Eos # (Auto) 0.0 Baso # (Auto) 0.0 Abs Immat Gran (auto) 0.23 H Absolute Neuts (auto) 19.5 H Absolute Nucleated RBC 0.090 H Nucleated RBC % (auto) 0.4 H Neutrophils % (Manual) Band Neutrophils % Lymphocytes % (Manual) Monocytes % (Manual) Abs Neuts (Manual) Lymphocytes # (Manual) Monocytes # (Manual) Platelet Estimate Plt Morphology Comment RBC Morphology Acanthocytes (Spur) Smear Tech's Comments VERIFIED Smear Path Review PT INR APTT O2 Saturation ABG pH at Pt Temp ABG pH (Temp Correct) ABG pCO2 at Pt Temp ABG pCO2 (Temp Corrct ABG pO2 at Pt Temp ABG pO2 (Temp Correct ABG HCO3 ABG Base Excess (Actual) VBG pH VBG pCO2 VBG pO2 VBG HCO3 VBG O2 Saturation VBG Base Excess Sodium Potassium Chloride Carbon Dioxide Anion Gap BUN Creatinine Estim Creat Clear Calc Estimated GFR POC Glucose 149 H 161 H Random Glucose Fasting Glucose Osmolality Lactic Acid Calcium Phosphorus Magnesium Transferrin Total Bilirubin Direct Bilirubin AST ALT Alkaline Phosphatase Ammonia Troponin I High Sens B-Natriuretic Peptide Total Protein Albumin Procalcitonin TSH Random Cortisol Urine Color Urine Appearance Urine pH Ur Specific [place] Urine Protein Urine Glucose (UA) Urine Ketones Urine Blood Urine Nitrite Ur Leukocyte Esterase Urine RBC Urine WBC Ur Squamous Epith Cells Urine Bacteria Urine Mucus Urine Osmolality Ur Random Sodium Ur Random Potassium Ur Random Chloride Stool Occult Blood Stool Leukocytes, Qual Random Vancomycin Digoxin C. difficile Tox B Gene COVID-19 (JESSY) COVID-19 Clin Com Influenza Type A (PCR) Influenza Type B (PCR) RSV RNA Qual (PCR) SARS-CoV-2 RNA (RT-PCR) Blood Type Antibody Screen Crossmatch 12/02/21 12/02/21 12/02/21 05:18 05:25 07:14 WBC RBC Hgb Hct MCV MCH MCHC RDW Plt Count MPV Immature Gran % (Auto) Neut % (Auto) Lymph % (Auto) [place] % (Auto) Eos % (Auto) Baso % (Auto) Lymph # (Auto) [place] # (Auto) Eos # (Auto) Baso # (Auto) Abs Immat Gran (auto) Absolute Neuts (auto) Absolute Nucleated RBC Nucleated RBC % (auto) Neutrophils % (Manual) Band Neutrophils % Lymphocytes % (Manual) Monocytes % (Manual) Abs Neuts (Manual) Lymphocytes # (Manual) Monocytes # (Manual) Platelet Estimate Plt Morphology Comment RBC Morphology Acanthocytes (Spur) Smear Tech's Comments Smear Path Review PT INR APTT O2 Saturation ABG pH at Pt Temp ABG pH (Temp Correct) ABG pCO2 at Pt Temp ABG pCO2 (Temp Corrct ABG pO2 at Pt Temp ABG pO2 (Temp Correct ABG HCO3 ABG Base Excess (Actual) VBG pH 7.38 VBG pCO2 61 VBG pO2 46 VBG HCO3 36 H VBG O2 Saturation 70.0 VBG Base Excess 9.9 Sodium 144 Potassium 4.6 Chloride 102 Carbon Dioxide 31 H Anion Gap 16 BUN 25 H Creatinine 0.78 Estim Creat Clear Calc 98.7 Estimated GFR > 60 POC Glucose 162 H Random Glucose 155 H Fasting Glucose Osmolality Lactic Acid Calcium 8.9 Phosphorus 3.2 Magnesium 2.4 Transferrin Total Bilirubin Direct Bilirubin AST ALT Alkaline Phosphatase Ammonia Troponin I High Sens B-Natriuretic Peptide Total Protein Albumin 3.7 Procalcitonin TSH Random Cortisol Urine Color Urine Appearance Urine pH Ur Specific [place] Urine Protein Urine Glucose (UA) Urine Ketones Urine Blood Urine Nitrite Ur Leukocyte Esterase Urine RBC Urine WBC Ur Squamous Epith Cells Urine Bacteria Urine Mucus Urine Osmolality Ur Random Sodium Ur Random Potassium Ur Random Chloride Stool Occult Blood Stool Leukocytes, Qual Random Vancomycin Digoxin C. difficile Tox B Gene COVID-19 (JESSY) COVID-19 Clin Com Influenza Type A (PCR) Influenza Type B (PCR) RSV RNA Qual (PCR) SARS-CoV-2 RNA (RT-PCR) Blood Type Antibody Screen Crossmatch 12/02/21 12/02/21 12/02/21 11:30 16:35 21:14 WBC RBC Hgb Hct MCV MCH MCHC RDW Plt Count MPV Immature Gran % (Auto) Neut % (Auto) Lymph % (Auto) [place] % (Auto) Eos % (Auto) Baso % (Auto) Lymph # (Auto) [place] # (Auto) Eos # (Auto) Baso # (Auto) Abs Immat Gran (auto) Absolute Neuts (auto) Absolute Nucleated RBC Nucleated RBC % (auto) Neutrophils % (Manual) Band Neutrophils % Lymphocytes % (Manual) Monocytes % (Manual) Abs Neuts (Manual) Lymphocytes # (Manual) Monocytes # (Manual) Platelet Estimate Plt Morphology Comment RBC Morphology Acanthocytes (Spur) Smear Tech's Comments Smear Path Review PT INR APTT O2 Saturation ABG pH at Pt Temp ABG pH (Temp Correct) ABG pCO2 at Pt Temp ABG pCO2 (Temp Corrct ABG pO2 at Pt Temp ABG pO2 (Temp Correct ABG HCO3 ABG Base Excess (Actual) VBG pH VBG pCO2 VBG pO2 VBG HCO3 VBG O2 Saturation VBG Base Excess Sodium Potassium Chloride Carbon Dioxide Anion Gap BUN Creatinine Estim Creat Clear Calc Estimated GFR POC Glucose 150 H 235 H 179 H Random Glucose Fasting Glucose Osmolality Lactic Acid Calcium Phosphorus Magnesium Transferrin Total Bilirubin Direct Bilirubin AST ALT Alkaline Phosphatase Ammonia Troponin I High Sens B-Natriuretic Peptide Total Protein Albumin Procalcitonin TSH Random Cortisol Urine Color Urine Appearance Urine pH Ur Specific [place] Urine Protein Urine Glucose (UA) Urine Ketones Urine Blood Urine Nitrite Ur Leukocyte Esterase Urine RBC Urine WBC Ur Squamous Epith Cells Urine Bacteria Urine Mucus Urine Osmolality Ur Random Sodium Ur Random Potassium Ur Random Chloride Stool Occult Blood Stool Leukocytes, Qual Random Vancomycin Digoxin C. difficile Tox B Gene COVID-19 (JESSY) COVID-19 Clin Com Influenza Type A (PCR) Influenza Type B (PCR) RSV RNA Qual (PCR) SARS-CoV-2 RNA (RT-PCR) Blood Type Antibody Screen Crossmatch 12/03/21 12/03/21 12/03/21 05:30 05:30 05:33 WBC 20.8 H RBC 4.75 Hgb 8.8 L Hct 31.7 L MCV 66.7 L MCH 18.5 L MCHC 27.8 L RDW 21.1 H Plt Count 299 MPV 9.3 L Immature Gran % (Auto) 0.8 H Neut % (Auto) 85.8 H Lymph % (Auto) 3.1 L [place] % (Auto) 10.1 Eos % (Auto) 0.1 Baso % (Auto) 0.1 Lymph # (Auto) 0.6 L [place] # (Auto) 2.1 H Eos # (Auto) 0.0 Baso # (Auto) 0.0 Abs Immat Gran (auto) 0.17 H Absolute Neuts (auto) 17.9 H Absolute Nucleated RBC 0.020 H Nucleated RBC % (auto) 0.1 Neutrophils % (Manual) Band Neutrophils % Lymphocytes % (Manual) Monocytes % (Manual) Abs Neuts (Manual) Lymphocytes # (Manual) Monocytes # (Manual) Platelet Estimate Plt Morphology Comment RBC Morphology Acanthocytes (Spur) Smear Tech's Comments VERIFIED Smear Path Review PT INR APTT O2 Saturation ABG pH at Pt Temp ABG pH (Temp Correct) ABG pCO2 at Pt Temp ABG pCO2 (Temp Corrct ABG pO2 at Pt Temp ABG pO2 (Temp Correct ABG HCO3 ABG Base Excess (Actual) VBG pH 7.47 H VBG pCO2 62 VBG pO2 53 VBG HCO3 45 H VBG O2 Saturation 83.0 VBG Base Excess 18.9 Sodium 150 H Potassium 4.2 Chloride 106 Carbon Dioxide 38 H Anion Gap 10 L BUN 21 H Creatinine 0.71 Estim Creat Clear Calc 108.5 Estimated GFR > 60 POC Glucose Random Glucose 151 H Fasting Glucose Osmolality Lactic Acid Calcium 9.0 Phosphorus 2.3 L Magnesium 2.4 Transferrin Total Bilirubin Direct Bilirubin AST ALT Alkaline Phosphatase Ammonia Troponin I High Sens B-Natriuretic Peptide Total Protein Albumin 3.2 L Procalcitonin TSH Random Cortisol Urine Color Urine Appearance Urine pH Ur Specific [place] Urine Protein Urine Glucose (UA) Urine Ketones Urine Blood Urine Nitrite Ur Leukocyte Esterase Urine RBC Urine WBC Ur Squamous Epith Cells Urine Bacteria Urine Mucus Urine Osmolality Ur Random Sodium Ur Random Potassium Ur Random Chloride Stool Occult Blood Stool Leukocytes, Qual Random Vancomycin Digoxin C. difficile Tox B Gene COVID-19 (JESSY) COVID-19 Clin Com Influenza Type A (PCR) Influenza Type B (PCR) RSV RNA Qual (PCR) SARS-CoV-2 RNA (RT-PCR) Blood Type Antibody Screen Crossmatch 12/03/21 12/03/21 12/03/21 07:05 11:42 15:25 WBC RBC Hgb Hct MCV MCH MCHC RDW Plt Count MPV Immature Gran % (Auto) Neut % (Auto) Lymph % (Auto) [place] % (Auto) Eos % (Auto) Baso % (Auto) Lymph # (Auto) [place] # (Auto) Eos # (Auto) Baso # (Auto) Abs Immat Gran (auto) Absolute Neuts (auto) Absolute Nucleated RBC Nucleated RBC % (auto) Neutrophils % (Manual) Band Neutrophils % Lymphocytes % (Manual) Monocytes % (Manual) Abs Neuts (Manual) Lymphocytes # (Manual) Monocytes # (Manual) Platelet Estimate Plt Morphology Comment RBC Morphology Acanthocytes (Spur) Smear Tech's Comments Smear Path Review PT INR APTT O2 Saturation ABG pH at Pt Temp ABG pH (Temp Correct) ABG pCO2 at Pt Temp ABG pCO2 (Temp Corrct ABG pO2 at Pt Temp ABG pO2 (Temp Correct ABG HCO3 ABG Base Excess (Actual) VBG pH VBG pCO2 VBG pO2 VBG HCO3 VBG O2 Saturation VBG Base Excess Sodium 151 H Potassium 3.9 Chloride 106 Carbon Dioxide 40 H* Anion Gap 9 L BUN Creatinine Estim Creat Clear Calc Estimated GFR POC Glucose 141 H 198 H Random Glucose Fasting Glucose Osmolality Lactic Acid Calcium Phosphorus Magnesium Transferrin Total Bilirubin Direct Bilirubin AST ALT Alkaline Phosphatase Ammonia Troponin I High Sens B-Natriuretic Peptide Total Protein Albumin Procalcitonin TSH Random Cortisol Urine Color Urine Appearance Urine pH Ur Specific [place] Urine Protein Urine Glucose (UA) Urine Ketones Urine Blood Urine Nitrite Ur Leukocyte Esterase Urine RBC Urine WBC Ur Squamous Epith Cells Urine Bacteria Urine Mucus Urine Osmolality Ur Random Sodium Ur Random Potassium Ur Random Chloride Stool Occult Blood Stool Leukocytes, Qual Random Vancomycin Digoxin C. difficile Tox B Gene COVID-19 (JESSY) COVID-19 Clin Com Influenza Type A (PCR) Influenza Type B (PCR) RSV RNA Qual (PCR) SARS-CoV-2 RNA (RT-PCR) Blood Type Antibody Screen Crossmatch 12/03/21 12/03/21 12/03/21 16:48 20:18 21:30 WBC RBC Hgb Hct MCV MCH MCHC RDW Plt Count MPV Immature Gran % (Auto) Neut % (Auto) Lymph % (Auto) [place] % (Auto) Eos % (Auto) Baso % (Auto) Lymph # (Auto) [place] # (Auto) Eos # (Auto) Baso # (Auto) Abs Immat Gran (auto) Absolute Neuts (auto) Absolute Nucleated RBC Nucleated RBC % (auto) Neutrophils % (Manual) Band Neutrophils % Lymphocytes % (Manual) Monocytes % (Manual) Abs Neuts (Manual) Lymphocytes # (Manual) Monocytes # (Manual) Platelet Estimate Plt Morphology Comment RBC Morphology Acanthocytes (Spur) Smear Tech's Comments Smear Path Review PT INR APTT O2 Saturation ABG pH at Pt Temp ABG pH (Temp Correct) ABG pCO2 at Pt Temp ABG pCO2 (Temp Corrct ABG pO2 at Pt Temp ABG pO2 (Temp Correct ABG HCO3 ABG Base Excess (Actual) VBG pH VBG pCO2 VBG pO2 VBG HCO3 VBG O2 Saturation VBG Base Excess Sodium Potassium Chloride Carbon Dioxide Anion Gap BUN Creatinine Estim Creat Clear Calc Estimated GFR POC Glucose 197 H 213 H Random Glucose Fasting Glucose Osmolality Lactic Acid Calcium Phosphorus Magnesium Transferrin Total Bilirubin Direct Bilirubin AST ALT Alkaline Phosphatase Ammonia Troponin I High Sens B-Natriuretic Peptide Total Protein Albumin Procalcitonin TSH Random Cortisol Urine Color Urine Appearance Urine pH Ur Specific [place] Urine Protein Urine Glucose (UA) Urine Ketones Urine Blood Urine Nitrite Ur Leukocyte Esterase Urine RBC Urine WBC Ur Squamous Epith Cells Urine Bacteria Urine Mucus Urine Osmolality Ur Random Sodium Ur Random Potassium Ur Random Chloride Stool Occult Blood Stool Leukocytes, Qual Random Vancomycin Digoxin C. difficile Tox B Gene COVID-19 (JESSY) Negative COVID-19 Clin Com See Note Influenza Type A (PCR) Influenza Type B (PCR) RSV RNA Qual (PCR) SARS-CoV-2 RNA (RT-PCR) Blood Type Antibody Screen Crossmatch 12/04/21 12/04/21 12/04/21 07:58 11:44 12:44 WBC RBC Hgb Hct MCV MCH MCHC RDW Plt Count MPV Immature Gran % (Auto) Neut % (Auto) Lymph % (Auto) [place] % (Auto) Eos % (Auto) Baso % (Auto) Lymph # (Auto) [place] # (Auto) Eos # (Auto) Baso # (Auto) Abs Immat Gran (auto) Absolute Neuts (auto) Absolute Nucleated RBC Nucleated RBC % (auto) Neutrophils % (Manual) Band Neutrophils % Lymphocytes % (Manual) Monocytes % (Manual) Abs Neuts (Manual) Lymphocytes # (Manual) Monocytes # (Manual) Platelet Estimate Plt Morphology Comment RBC Morphology Acanthocytes (Spur) Smear Tech's Comments Smear Path Review PT INR APTT O2 Saturation ABG pH at Pt Temp ABG pH (Temp Correct) ABG pCO2 at Pt Temp ABG pCO2 (Temp Corrct ABG pO2 at Pt Temp ABG pO2 (Temp Correct ABG HCO3 ABG Base Excess (Actual) VBG pH VBG pCO2 VBG pO2 VBG HCO3 VBG O2 Saturation VBG Base Excess Sodium 153 H Potassium 3.6 Chloride 107 Carbon Dioxide 40 H* Anion Gap 10 L BUN 19 H Creatinine 0.80 Estim Creat Clear Calc 96.2 Estimated GFR > 60 POC Glucose 168 H 168 H Random Glucose 175 H Fasting Glucose Osmolality Lactic Acid Calcium 8.6 Phosphorus Magnesium Transferrin Total Bilirubin Direct Bilirubin AST ALT Alkaline Phosphatase Ammonia Troponin I High Sens B-Natriuretic Peptide Total Protein Albumin Procalcitonin TSH Random Cortisol Urine Color Urine Appearance Urine pH Ur Specific [place] Urine Protein Urine Glucose (UA) Urine Ketones Urine Blood Urine Nitrite Ur Leukocyte Esterase Urine RBC Urine WBC Ur Squamous Epith Cells Urine Bacteria Urine Mucus Urine Osmolality Ur Random Sodium Ur Random Potassium Ur Random Chloride Stool Occult Blood Stool Leukocytes, Qual Random Vancomycin Digoxin C. difficile Tox B Gene COVID-19 (JESSY) COVID-19 Clin Com Influenza Type A (PCR) Influenza Type B (PCR) RSV RNA Qual (PCR) SARS-CoV-2 RNA (RT-PCR) Blood Type Antibody Screen Crossmatch 12/04/21 12/04/21 12/04/21 12:44 17:03 20:10 WBC 22.0 H RBC 4.83 Hgb 9.2 L Hct 33.7 L MCV 69.8 L MCH 19.0 L MCHC 27.3 L RDW 22.2 H Plt Count 314 MPV 9.3 L Immature Gran % (Auto) Neut % (Auto) Lymph % (Auto) [place] % (Auto) Eos % (Auto) Baso % (Auto) Lymph # (Auto) [place] # (Auto) Eos # (Auto) Baso # (Auto) Abs Immat Gran (auto) Absolute Neuts (auto) Absolute Nucleated RBC 0.020 H Nucleated RBC % (auto) 0.1 Neutrophils % (Manual) Band Neutrophils % Lymphocytes % (Manual) Monocytes % (Manual) Abs Neuts (Manual) Lymphocytes # (Manual) Monocytes # (Manual) Platelet Estimate Plt Morphology Comment RBC Morphology Acanthocytes (Spur) Smear Tech's Comments Smear Path Review PT INR APTT O2 Saturation ABG pH at Pt Temp ABG pH (Temp Correct) ABG pCO2 at Pt Temp ABG pCO2 (Temp Corrct ABG pO2 at Pt Temp ABG pO2 (Temp Correct ABG HCO3 ABG Base Excess (Actual) VBG pH VBG pCO2 VBG pO2 VBG HCO3 VBG O2 Saturation VBG Base Excess Sodium Potassium Chloride Carbon Dioxide Anion Gap BUN Creatinine Estim Creat Clear Calc Estimated GFR POC Glucose 168 H 138 H Random Glucose Fasting Glucose Osmolality Lactic Acid Calcium Phosphorus Magnesium Transferrin Total Bilirubin Direct Bilirubin AST ALT Alkaline Phosphatase Ammonia Troponin I High Sens B-Natriuretic Peptide Total Protein Albumin Procalcitonin TSH Random Cortisol Urine Color Urine Appearance Urine pH Ur Specific [place] Urine Protein Urine Glucose (UA) Urine Ketones Urine Blood Urine Nitrite Ur Leukocyte Esterase Urine RBC Urine WBC Ur Squamous Epith Cells Urine Bacteria Urine Mucus Urine Osmolality Ur Random Sodium Ur Random Potassium Ur Random Chloride Stool Occult Blood Stool Leukocytes, Qual Random Vancomycin Digoxin C. difficile Tox B Gene COVID-19 (JESSY) COVID-19 Clin Com Influenza Type A (PCR) Influenza Type B (PCR) RSV RNA Qual (PCR) SARS-CoV-2 RNA (RT-PCR) Blood Type Antibody Screen Crossmatch 12/04/21 12/05/21 12/05/21 21:30 07:27 07:27 WBC 18.8 H RBC 4.78 Hgb 8.9 L Hct 33.8 L MCV 70.7 L MCH 18.6 L MCHC 26.3 L RDW 22.1 H Plt Count 290 MPV 10.0 Immature Gran % (Auto) Neut % (Auto) Lymph % (Auto) [place] % (Auto) Eos % (Auto) Baso % (Auto) Lymph # (Auto) [place] # (Auto) Eos # (Auto) Baso # (Auto) Abs Immat Gran (auto) Absolute Neuts (auto) Absolute Nucleated RBC 0.000 Nucleated RBC % (auto) 0.0 Neutrophils % (Manual) Band Neutrophils % Lymphocytes % (Manual) Monocytes % (Manual) Abs Neuts (Manual) Lymphocytes # (Manual) Monocytes # (Manual) Platelet Estimate Plt Morphology Comment RBC Morphology Acanthocytes (Spur) Smear Tech's Comments Smear Path Review PT INR APTT O2 Saturation ABG pH at Pt Temp ABG pH (Temp Correct) ABG pCO2 at Pt Temp ABG pCO2 (Temp Corrct ABG pO2 at Pt Temp ABG pO2 (Temp Correct ABG HCO3 ABG Base Excess (Actual) VBG pH VBG pCO2 VBG pO2 VBG HCO3 VBG O2 Saturation VBG Base Excess Sodium 153 H 153 H Potassium 3.8 3.7 Chloride 109 H 109 H Carbon Dioxide 38 H 38 H Anion Gap 10 L 10 L BUN 24 H Creatinine 0.87 Estim Creat Clear Calc 88.5 Estimated GFR > 60 POC Glucose Random Glucose 131 H Fasting Glucose Osmolality Lactic Acid Calcium 8.4 Phosphorus Magnesium Transferrin Total Bilirubin Direct Bilirubin AST ALT Alkaline Phosphatase Ammonia Troponin I High Sens B-Natriuretic Peptide Total Protein Albumin Procalcitonin TSH Random Cortisol Urine Color Urine Appearance Urine pH Ur Specific [place] Urine Protein Urine Glucose (UA) Urine Ketones Urine Blood Urine Nitrite Ur Leukocyte Esterase Urine RBC Urine WBC Ur Squamous Epith Cells Urine Bacteria Urine Mucus Urine Osmolality Ur Random Sodium Ur Random Potassium Ur Random Chloride Stool Occult Blood Stool Leukocytes, Qual Random Vancomycin Digoxin C. difficile Tox B Gene COVID-19 (JESSY) COVID-19 Clin Com Influenza Type A (PCR) Influenza Type B (PCR) RSV RNA Qual (PCR) SARS-CoV-2 RNA (RT-PCR) Blood Type Antibody Screen Crossmatch 12/05/21 12/05/21 12/05/21 07:30 10:39 16:22 WBC RBC Hgb Hct MCV MCH MCHC RDW Plt Count MPV Immature Gran % (Auto) Neut % (Auto) Lymph % (Auto) [place] % (Auto) Eos % (Auto) Baso % (Auto) Lymph # (Auto) [place] # (Auto) Eos # (Auto) Baso # (Auto) Abs Immat Gran (auto) Absolute Neuts (auto) Absolute Nucleated RBC Nucleated RBC % (auto) Neutrophils % (Manual) Band Neutrophils % Lymphocytes % (Manual) Monocytes % (Manual) Abs Neuts (Manual) Lymphocytes # (Manual) Monocytes # (Manual) Platelet Estimate Plt Morphology Comment RBC Morphology Acanthocytes (Spur) Smear Tech's Comments Smear Path Review PT INR APTT O2 Saturation ABG pH at Pt Temp ABG pH (Temp Correct) ABG pCO2 at Pt Temp ABG pCO2 (Temp Corrct ABG pO2 at Pt Temp ABG pO2 (Temp Correct ABG HCO3 ABG Base Excess (Actual) VBG pH VBG pCO2 VBG pO2 VBG HCO3 VBG O2 Saturation VBG Base Excess Sodium Potassium Chloride Carbon Dioxide Anion Gap BUN Creatinine Estim Creat Clear Calc Estimated GFR POC Glucose 138 H 131 H 208 H Random Glucose Fasting Glucose Osmolality Lactic Acid Calcium Phosphorus Magnesium Transferrin Total Bilirubin Direct Bilirubin AST ALT Alkaline Phosphatase Ammonia Troponin I High Sens B-Natriuretic Peptide Total Protein Albumin Procalcitonin TSH Random Cortisol Urine Color Urine Appearance Urine pH Ur Specific [place] Urine Protein Urine Glucose (UA) Urine Ketones Urine Blood Urine Nitrite Ur Leukocyte Esterase Urine RBC Urine WBC Ur Squamous Epith Cells Urine Bacteria Urine Mucus Urine Osmolality Ur Random Sodium Ur Random Potassium Ur Random Chloride Stool Occult Blood Stool Leukocytes, Qual Random Vancomycin Digoxin C. difficile Tox B Gene COVID-19 (JESSY) COVID-19 Clin Com Influenza Type A (PCR) Influenza Type B (PCR) RSV RNA Qual (PCR) SARS-CoV-2 RNA (RT-PCR) Blood Type Antibody Screen Crossmatch 12/05/21 12/06/21 12/06/21 20:10 05:52 05:52 WBC 17.1 H RBC 4.58 Hgb 8.8 L Hct 33.2 L MCV 72.5 L MCH 19.2 L MCHC 26.5 L RDW 22.5 H Plt Count 249 MPV 9.8 Immature Gran % (Auto) Neut % (Auto) Lymph % (Auto) [place] % (Auto) Eos % (Auto) Baso % (Auto) Lymph # (Auto) [place] # (Auto) Eos # (Auto) Baso # (Auto) Abs Immat Gran (auto) Absolute Neuts (auto) Absolute Nucleated RBC 0.000 Nucleated RBC % (auto) 0.0 Neutrophils % (Manual) Band Neutrophils % Lymphocytes % (Manual) Monocytes % (Manual) Abs Neuts (Manual) Lymphocytes # (Manual) Monocytes # (Manual) Platelet Estimate Plt Morphology Comment RBC Morphology Acanthocytes (Spur) Smear Tech's Comments Smear Path Review PT INR APTT O2 Saturation ABG pH at Pt Temp ABG pH (Temp Correct) ABG pCO2 at Pt Temp ABG pCO2 (Temp Corrct ABG pO2 at Pt Temp ABG pO2 (Temp Correct ABG HCO3 ABG Base Excess (Actual) VBG pH VBG pCO2 VBG pO2 VBG HCO3 VBG O2 Saturation VBG Base Excess Sodium 152 H Potassium 3.9 Chloride 108 Carbon Dioxide 38 H Anion Gap 10 L BUN 33 H Creatinine 1.18 Estim Creat Clear Calc 65.2 Estimated GFR 46 POC Glucose 148 H Random Glucose 155 H Fasting Glucose Osmolality Lactic Acid Calcium 8.3 L Phosphorus Magnesium Transferrin Total Bilirubin Direct Bilirubin AST ALT Alkaline Phosphatase Ammonia Troponin I High Sens B-Natriuretic Peptide Total Protein Albumin Procalcitonin TSH Random Cortisol Urine Color Urine Appearance Urine pH Ur Specific [place] Urine Protein Urine Glucose (UA) Urine Ketones Urine Blood Urine Nitrite Ur Leukocyte Esterase Urine RBC Urine WBC Ur Squamous Epith Cells Urine Bacteria Urine Mucus Urine Osmolality Ur Random Sodium Ur Random Potassium Ur Random Chloride Stool Occult Blood Stool Leukocytes, Qual Random Vancomycin Digoxin C. difficile Tox B Gene COVID-19 (JESSY) COVID-19 Clin Com Influenza Type A (PCR) Influenza Type B (PCR) RSV RNA Qual (PCR) SARS-CoV-2 RNA (RT-PCR) Blood Type Antibody Screen Crossmatch 12/06/21 12/06/21 12/06/21 07:13 10:55 11:05 WBC RBC Hgb Hct MCV MCH MCHC RDW Plt Count MPV Immature Gran % (Auto) Neut % (Auto) Lymph % (Auto) [place] % (Auto) Eos % (Auto) Baso % (Auto) Lymph # (Auto) [place] # (Auto) Eos # (Auto) Baso # (Auto) Abs Immat Gran (auto) Absolute Neuts (auto) Absolute Nucleated RBC Nucleated RBC % (auto) Neutrophils % (Manual) Band Neutrophils % Lymphocytes % (Manual) Monocytes % (Manual) Abs Neuts (Manual) Lymphocytes # (Manual) Monocytes # (Manual) Platelet Estimate Plt Morphology Comment RBC Morphology Acanthocytes (Spur) Smear Tech's Comments Smear Path Review PT INR APTT O2 Saturation 95.0 ABG pH at Pt Temp 7.34 L ABG pH (Temp Correct) 7.34 L ABG pCO2 at Pt Temp 85 H* ABG pCO2 (Temp Corrct 84 H* ABG pO2 at Pt Temp 81 L ABG pO2 (Temp Correct 80 L ABG HCO3 46 H ABG Base Excess (Actual) 17.2 VBG pH VBG pCO2 VBG pO2 VBG HCO3 VBG O2 Saturation VBG Base Excess Sodium Potassium Chloride Carbon Dioxide Anion Gap BUN Creatinine Estim Creat Clear Calc Estimated GFR POC Glucose 157 H 180 H Random Glucose Fasting Glucose Osmolality Lactic Acid Calcium Phosphorus Magnesium Transferrin Total Bilirubin Direct Bilirubin AST ALT Alkaline Phosphatase Ammonia Troponin I High Sens B-Natriuretic Peptide Total Protein Albumin Procalcitonin TSH Random Cortisol Urine Color Urine Appearance Urine pH Ur Specific [place] Urine Protein Urine Glucose (UA) Urine Ketones Urine Blood Urine Nitrite Ur Leukocyte Esterase Urine RBC Urine WBC Ur Squamous Epith Cells Urine Bacteria Urine Mucus Urine Osmolality Ur Random Sodium Ur Random Potassium Ur Random Chloride Stool Occult Blood Stool Leukocytes, Qual Random Vancomycin Digoxin C. difficile Tox B Gene COVID-19 (JESSY) COVID-19 Clin Com Influenza Type A (PCR) Influenza Type B (PCR) RSV RNA Qual (PCR) SARS-CoV-2 RNA (RT-PCR) Blood Type Antibody Screen Crossmatch 12/06/21 12/06/21 12/06/21 16:28 18:10 18:16 WBC RBC Hgb Hct MCV MCH MCHC RDW Plt Count MPV Immature Gran % (Auto) Neut % (Auto) Lymph % (Auto) [place] % (Auto) Eos % (Auto) Baso % (Auto) Lymph # (Auto) [place] # (Auto) Eos # (Auto) Baso # (Auto) Abs Immat Gran (auto) Absolute Neuts (auto) Absolute Nucleated RBC Nucleated RBC % (auto) Neutrophils % (Manual) Band Neutrophils % Lymphocytes % (Manual) Monocytes % (Manual) Abs Neuts (Manual) Lymphocytes # (Manual) Monocytes # (Manual) Platelet Estimate Plt Morphology Comment RBC Morphology Acanthocytes (Spur) Smear Tech's Comments Smear Path Review PT INR APTT O2 Saturation ABG pH at Pt Temp ABG pH (Temp Correct) ABG pCO2 at Pt Temp ABG pCO2 (Temp Corrct ABG pO2 at Pt Temp ABG pO2 (Temp Correct ABG HCO3 ABG Base Excess (Actual) VBG pH 7.35 VBG pCO2 81 VBG pO2 39 VBG HCO3 46 H VBG O2 Saturation 62.0 VBG Base Excess 17.3 Sodium Potassium Chloride Carbon Dioxide Anion Gap BUN Creatinine Estim Creat Clear Calc Estimated GFR POC Glucose 92 Random Glucose Fasting Glucose Osmolality Lactic Acid Calcium Phosphorus Magnesium Transferrin Total Bilirubin Direct Bilirubin AST ALT Alkaline Phosphatase Ammonia Troponin I High Sens B-Natriuretic Peptide Total Protein Albumin Procalcitonin TSH Random Cortisol Urine Color YELLOW Urine Appearance HAZY Urine pH 6.0 Ur Specific [place] 1.015 Urine Protein TRACE Urine Glucose (UA) NEG Urine Ketones NEG Urine Blood 3+ H Urine Nitrite NEG Ur Leukocyte Esterase NEG Urine RBC 50-75 H Urine WBC 1-4 Ur Squamous Epith Cells TRACE Urine Bacteria TRACE Urine Mucus Urine Osmolality Ur Random Sodium Ur Random Potassium Ur Random Chloride Stool Occult Blood Stool Leukocytes, Qual Random Vancomycin Digoxin C. difficile Tox B Gene COVID-19 (JESSY) COVID-19 Clin Com Influenza Type A (PCR) Influenza Type B (PCR) RSV RNA Qual (PCR) SARS-CoV-2 RNA (RT-PCR) Blood Type Antibody Screen Crossmatch 12/06/21 12/06/21 12/06/21 18:17 21:19 22:01 WBC RBC Hgb Hct MCV MCH MCHC RDW Plt Count MPV Immature Gran % (Auto) Neut % (Auto) Lymph % (Auto) [place] % (Auto) Eos % (Auto) Baso % (Auto) Lymph # (Auto) [place] # (Auto) Eos # (Auto) Baso # (Auto) Abs Immat Gran (auto) Absolute Neuts (auto) Absolute Nucleated RBC Nucleated RBC % (auto) Neutrophils % (Manual) Band Neutrophils % Lymphocytes % (Manual) Monocytes % (Manual) Abs Neuts (Manual) Lymphocytes # (Manual) Monocytes # (Manual) Platelet Estimate Plt Morphology Comment RBC Morphology Acanthocytes (Spur) Smear Tech's Comments Smear Path Review PT INR APTT O2 Saturation ABG pH at Pt Temp ABG pH (Temp Correct) ABG pCO2 at Pt Temp ABG pCO2 (Temp Corrct ABG pO2 at Pt Temp ABG pO2 (Temp Correct ABG HCO3 ABG Base Excess (Actual) VBG pH 7.55 H VBG pCO2 43 VBG pO2 33 VBG HCO3 37 H VBG O2 Saturation 66.0 VBG Base Excess 14.2 Sodium Potassium Chloride Carbon Dioxide Anion Gap BUN Creatinine Estim Creat Clear Calc Estimated GFR POC Glucose 118 H Random Glucose Fasting Glucose Osmolality Lactic Acid 0.6 Calcium Phosphorus Magnesium Transferrin Total Bilirubin Direct Bilirubin AST ALT Alkaline Phosphatase Ammonia Troponin I High Sens B-Natriuretic Peptide Total Protein Albumin Procalcitonin TSH Random Cortisol Urine Color Urine Appearance Urine pH Ur Specific [place] Urine Protein Urine Glucose (UA) Urine Ketones Urine Blood Urine Nitrite Ur Leukocyte Esterase Urine RBC Urine WBC Ur Squamous Epith Cells Urine Bacteria Urine Mucus Urine Osmolality Ur Random Sodium Ur Random Potassium Ur Random Chloride Stool Occult Blood Stool Leukocytes, Qual Random Vancomycin Digoxin C. difficile Tox B Gene COVID-19 (JESSY) COVID-19 Clin Com Influenza Type A (PCR) Influenza Type B (PCR) RSV RNA Qual (PCR) SARS-CoV-2 RNA (RT-PCR) Blood Type Antibody Screen Crossmatch 12/07/21 12/07/21 12/07/21 05:20 05:20 05:20 WBC 22.8 H RBC 4.29 Hgb 8.1 L Hct 30.0 L MCV 69.9 L MCH 18.9 L MCHC 27.0 L RDW 22.6 H Plt Count 233 MPV 10.3 Immature Gran % (Auto) 0.9 H Neut % (Auto) 88.2 H Lymph % (Auto) 5.3 L [place] % (Auto) 5.4 Eos % (Auto) 0.1 Baso % (Auto) 0.1 Lymph # (Auto) 1.2 [place]inger # (Auto) 1.2 Eos # (Auto) 0.0 Baso # (Auto) 0.0 Abs Immat Gran (auto) 0.21 H Absolute Neuts (auto) 20.1 H Absolute Nucleated RBC 0.030 H Nucleated RBC % (auto) 0.1 Neutrophils % (Manual) Band Neutrophils % Lymphocytes % (Manual) Monocytes % (Manual) Abs Neuts (Manual) Lymphocytes # (Manual) Monocytes # (Manual) Platelet Estimate Plt Morphology Comment RBC Morphology Acanthocytes (Spur) Smear Tech's Comments VERIFIED Smear Path Review PT INR APTT O2 Saturation ABG pH at Pt Temp ABG pH (Temp Correct) ABG pCO2 at Pt Temp ABG pCO2 (Temp Corrct ABG pO2 at Pt Temp ABG pO2 (Temp Correct ABG HCO3 ABG Base Excess (Actual) VBG pH 7.59 H VBG pCO2 33 VBG pO2 41 VBG HCO3 32 H VBG O2 Saturation 79.0 VBG Base Excess 10.8 Sodium 154 H Potassium 2.8 L D Chloride 109 H Carbon Dioxide 32 H Anion Gap 16 BUN 38 H Creatinine 1.31 Estim Creat Clear Calc 54.5 Estimated GFR 40 POC Glucose Random Glucose 257 H Fasting Glucose Osmolality Lactic Acid Calcium 7.8 L D Phosphorus 1.4 L Magnesium 2.4 Transferrin Total Bilirubin 0.9 Direct Bilirubin AST 82 H ALT 23 Alkaline Phosphatase 54 D Ammonia Troponin I High Sens B-Natriuretic Peptide Total Protein 4.9 L D Albumin 2.5 L D Procalcitonin TSH Random Cortisol Urine Color Urine Appearance Urine pH Ur Specific [place] Urine Protein Urine Glucose (UA) Urine Ketones Urine Blood Urine Nitrite Ur Leukocyte Esterase Urine RBC Urine WBC Ur Squamous Epith Cells Urine Bacteria Urine Mucus Urine Osmolality Ur Random Sodium Ur Random Potassium Ur Random Chloride Stool Occult Blood Stool Leukocytes, Qual Random Vancomycin Digoxin C. difficile Tox B Gene COVID-19 (JESSY) COVID-19 Clin Com Influenza Type A (PCR) Influenza Type B (PCR) RSV RNA Qual (PCR) SARS-CoV-2 RNA (RT-PCR) Blood Type Antibody Screen Crossmatch 12/07/21 12/07/21 12/07/21 07:15 11:32 17:43 WBC RBC Hgb Hct MCV MCH MCHC RDW Plt Count MPV Immature Gran % (Auto) Neut % (Auto) Lymph % (Auto) [place] % (Auto) Eos % (Auto) Baso % (Auto) Lymph # (Auto) [place] # (Auto) Eos # (Auto) Baso # (Auto) Abs Immat Gran (auto) Absolute Neuts (auto) Absolute Nucleated RBC Nucleated RBC % (auto) Neutrophils % (Manual) Band Neutrophils % Lymphocytes % (Manual) Monocytes % (Manual) Abs Neuts (Manual) Lymphocytes # (Manual) Monocytes # (Manual) Platelet Estimate Plt Morphology Comment RBC Morphology Acanthocytes (Spur) Smear Tech's Comments Smear Path Review PT INR APTT O2 Saturation ABG pH at Pt Temp ABG pH (Temp Correct) ABG pCO2 at Pt Temp ABG pCO2 (Temp Corrct ABG pO2 at Pt Temp ABG pO2 (Temp Correct ABG HCO3 ABG Base Excess (Actual) VBG pH VBG pCO2 VBG pO2 VBG HCO3 VBG O2 Saturation VBG Base Excess Sodium Potassium Chloride Carbon Dioxide Anion Gap BUN Creatinine Estim Creat Clear Calc Estimated GFR POC Glucose 279 H 289 H 290 H Random Glucose Fasting Glucose Osmolality Lactic Acid Calcium Phosphorus Magnesium Transferrin Total Bilirubin Direct Bilirubin AST ALT Alkaline Phosphatase Ammonia Troponin I High Sens B-Natriuretic Peptide Total Protein Albumin Procalcitonin TSH Random Cortisol Urine Color Urine Appearance Urine pH Ur Specific [place] Urine Protein Urine Glucose (UA) Urine Ketones Urine Blood Urine Nitrite Ur Leukocyte Esterase Urine RBC Urine WBC Ur Squamous Epith Cells Urine Bacteria Urine Mucus Urine Osmolality Ur Random Sodium Ur Random Potassium Ur Random Chloride Stool Occult Blood Stool Leukocytes, Qual Random Vancomycin Digoxin C. difficile Tox B Gene COVID-19 (JESSY) COVID-19 Clin Com Influenza Type A (PCR) Influenza Type B (PCR) RSV RNA Qual (PCR) SARS-CoV-2 RNA (RT-PCR) Blood Type Antibody Screen Crossmatch 12/07/21 12/07/21 12/08/21 18:46 21:19 01:23 WBC RBC Hgb Hct MCV MCH MCHC RDW Plt Count MPV Immature Gran % (Auto) Neut % (Auto) Lymph % (Auto) [place] % (Auto) Eos % (Auto) Baso % (Auto) Lymph # (Auto) [place] # (Auto) Eos # (Auto) Baso # (Auto) Abs Immat Gran (auto) Absolute Neuts (auto) Absolute Nucleated RBC Nucleated RBC % (auto) Neutrophils % (Manual) Band Neutrophils % Lymphocytes % (Manual) Monocytes % (Manual) Abs Neuts (Manual) Lymphocytes # (Manual) Monocytes # (Manual) Platelet Estimate Plt Morphology Comment RBC Morphology Acanthocytes (Spur) Smear Tech's Comments Smear Path Review PT INR APTT O2 Saturation ABG pH at Pt Temp ABG pH (Temp Correct) ABG pCO2 at Pt Temp ABG pCO2 (Temp Corrct ABG pO2 at Pt Temp ABG pO2 (Temp Correct ABG HCO3 ABG Base Excess (Actual) VBG pH VBG pCO2 VBG pO2 VBG HCO3 VBG O2 Saturation VBG Base Excess Sodium 152 H Potassium 2.5 L* Chloride 111 H Carbon Dioxide 29 Anion Gap 15 BUN 32 H Creatinine 1.19 Estim Creat Clear Calc 60.0 Estimated GFR 45 POC Glucose 282 H 213 H Random Glucose 296 H Fasting Glucose Osmolality Lactic Acid Calcium 7.7 L Phosphorus 1.5 L Magnesium Transferrin Total Bilirubin Direct Bilirubin AST ALT Alkaline Phosphatase Ammonia Troponin I High Sens B-Natriuretic Peptide Total Protein Albumin Procalcitonin TSH Random Cortisol Urine Color Urine Appearance Urine pH Ur Specific [place] Urine Protein Urine Glucose (UA) Urine Ketones Urine Blood Urine Nitrite Ur Leukocyte Esterase Urine RBC Urine WBC Ur Squamous Epith Cells Urine Bacteria Urine Mucus Urine Osmolality Ur Random Sodium Ur Random Potassium Ur Random Chloride Stool Occult Blood Stool Leukocytes, Qual Random Vancomycin Digoxin C. difficile Tox B Gene COVID-19 (JESSY) COVID-19 Clin Com Influenza Type A (PCR) Influenza Type B (PCR) RSV RNA Qual (PCR) SARS-CoV-2 RNA (RT-PCR) Blood Type Antibody Screen Crossmatch 12/08/21 12/08/21 12/08/21 05:00 05:25 05:25 WBC Cancelled RBC Cancelled Hgb Cancelled Hct Cancelled MCV Cancelled MCH Cancelled MCHC Cancelled RDW Cancelled Plt Count Cancelled MPV Cancelled Immature Gran % (Auto) Neut % (Auto) Lymph % (Auto) [place] % (Auto) Eos % (Auto) Baso % (Auto) Lymph # (Auto) [place] # (Auto) Eos # (Auto) Baso # (Auto) Abs Immat Gran (auto) Absolute Neuts (auto) Absolute Nucleated RBC Cancelled Nucleated RBC % (auto) Cancelled Neutrophils % (Manual) Band Neutrophils % Lymphocytes % (Manual) Monocytes % (Manual) Abs Neuts (Manual) Lymphocytes # (Manual) Monocytes # (Manual) Platelet Estimate Plt Morphology Comment RBC Morphology Acanthocytes (Spur) Smear Tech's Comments Smear Path Review PT INR APTT O2 Saturation ABG pH at Pt Temp ABG pH (Temp Correct) ABG pCO2 at Pt Temp ABG pCO2 (Temp Corrct ABG pO2 at Pt Temp ABG pO2 (Temp Correct ABG HCO3 ABG Base Excess (Actual) VBG pH VBG pCO2 VBG pO2 VBG HCO3 VBG O2 Saturation VBG Base Excess Sodium 149 H Potassium 3.0 L Chloride 111 H Carbon Dioxide 29 Anion Gap 12 BUN 31 H Creatinine 1.21 Estim Creat Clear Calc 71.3 Estimated GFR 44 POC Glucose Random Glucose 268 H Fasting Glucose Osmolality Lactic Acid Calcium 7.3 L Phosphorus 3.1 Magnesium Transferrin Total Bilirubin 0.5 Direct Bilirubin AST 72 H ALT 23 Alkaline Phosphatase 49 Ammonia Troponin I High Sens B-Natriuretic Peptide 117 H Total Protein 5.0 L Albumin 2.8 L Procalcitonin TSH Random Cortisol Urine Color Urine Appearance Urine pH Ur Specific [place] Urine Protein Urine Glucose (UA) Urine Ketones Urine Blood Urine Nitrite Ur Leukocyte Esterase Urine RBC Urine WBC Ur Squamous Epith Cells Urine Bacteria Urine Mucus Urine Osmolality Ur Random Sodium Ur Random Potassium Ur Random Chloride Stool Occult Blood Stool Leukocytes, Qual Random Vancomycin Digoxin C. difficile Tox B Gene COVID-19 (JESSY) COVID-19 Clin Com Influenza Type A (PCR) Influenza Type B (PCR) RSV RNA Qual (PCR) SARS-CoV-2 RNA (RT-PCR) Blood Type Antibody Screen Crossmatch 12/08/21 12/08/21 12/08/21 05:27 06:37 07:32 WBC RBC Hgb Hct MCV MCH MCHC RDW Plt Count MPV Immature Gran % (Auto) Neut % (Auto) Lymph % (Auto) [place] % (Auto) Eos % (Auto) Baso % (Auto) Lymph # (Auto) [place] # (Auto) Eos # (Auto) Baso # (Auto) Abs Immat Gran (auto) Absolute Neuts (auto) Absolute Nucleated RBC Nucleated RBC % (auto) Neutrophils % (Manual) Band Neutrophils % Lymphocytes % (Manual) Monocytes % (Manual) Abs Neuts (Manual) Lymphocytes # (Manual) Monocytes # (Manual) Platelet Estimate Plt Morphology Comment RBC Morphology Acanthocytes (Spur) Smear Tech's Comments Smear Path Review PT INR APTT O2 Saturation ABG pH at Pt Temp ABG pH (Temp Correct) ABG pCO2 at Pt Temp ABG pCO2 (Temp Corrct ABG pO2 at Pt Temp ABG pO2 (Temp Correct ABG HCO3 ABG Base Excess (Actual) VBG pH 7.52 H VBG pCO2 38 VBG pO2 48 VBG HCO3 31 H VBG O2 Saturation 79.0 VBG Base Excess 8.3 Sodium Potassium Chloride Carbon Dioxide Anion Gap BUN Creatinine Estim Creat Clear Calc Estimated GFR POC Glucose 253 H 254 H Random Glucose Fasting Glucose Osmolality Lactic Acid Calcium Phosphorus Magnesium Transferrin Total Bilirubin Direct Bilirubin AST ALT Alkaline Phosphatase Ammonia Troponin I High Sens B-Natriuretic Peptide Total Protein Albumin Procalcitonin TSH Random Cortisol Urine Color Urine Appearance Urine pH Ur Specific [place] Urine Protein Urine Glucose (UA) Urine Ketones Urine Blood Urine Nitrite Ur Leukocyte Esterase Urine RBC Urine WBC Ur Squamous Epith Cells Urine Bacteria Urine Mucus Urine Osmolality Ur Random Sodium Ur Random Potassium Ur Random Chloride Stool Occult Blood Stool Leukocytes, Qual Random Vancomycin Digoxin C. difficile Tox B Gene COVID-19 (JESSY) COVID-19 Clin Com Influenza Type A (PCR) Influenza Type B (PCR) RSV RNA Qual (PCR) SARS-CoV-2 RNA (RT-PCR) Blood Type Antibody Screen Crossmatch 12/08/21 12/08/21 12/08/21 08:07 11:53 11:59 WBC 19.2 H RBC 3.92 L Hgb 7.4 L Hct 26.8 L MCV 68.4 L MCH 18.9 L MCHC 27.6 L RDW 22.9 H Plt Count 186 MPV Not Reportable Immature Gran % (Auto) Neut % (Auto) Lymph % (Auto) [place] % (Auto) Eos % (Auto) Baso % (Auto) Lymph # (Auto) [place] # (Auto) Eos # (Auto) Baso # (Auto) Abs Immat Gran (auto) Absolute Neuts (auto) Absolute Nucleated RBC 0.020 H Nucleated RBC % (auto) 0.1 Neutrophils % (Manual) Band Neutrophils % Lymphocytes % (Manual) Monocytes % (Manual) Abs Neuts (Manual) Lymphocytes # (Manual) Monocytes # (Manual) Platelet Estimate Plt Morphology Comment RBC Morphology Acanthocytes (Spur) Smear Tech's Comments Smear Path Review PT INR APTT O2 Saturation ABG pH at Pt Temp ABG pH (Temp Correct) ABG pCO2 at Pt Temp ABG pCO2 (Temp Corrct ABG pO2 at Pt Temp ABG pO2 (Temp Correct ABG HCO3 ABG Base Excess (Actual) VBG pH 7.49 H VBG pCO2 39 VBG pO2 51 VBG HCO3 30 H VBG O2 Saturation 84.0 VBG Base Excess 6.5 Sodium Potassium Chloride Carbon Dioxide Anion Gap BUN Creatinine Estim Creat Clear Calc Estimated GFR POC Glucose 208 H Random Glucose Fasting Glucose Osmolality Lactic Acid Calcium Phosphorus Magnesium Transferrin Total Bilirubin Direct Bilirubin AST ALT Alkaline Phosphatase Ammonia Troponin I High Sens B-Natriuretic Peptide Total Protein Albumin Procalcitonin TSH Random Cortisol Urine Color Urine Appearance Urine pH Ur Specific [place] Urine Protein Urine Glucose (UA) Urine Ketones Urine Blood Urine Nitrite Ur Leukocyte Esterase Urine RBC Urine WBC Ur Squamous Epith Cells Urine Bacteria Urine Mucus Urine Osmolality Ur Random Sodium Ur Random Potassium Ur Random Chloride Stool Occult Blood Stool Leukocytes, Qual Random Vancomycin Digoxin C. difficile Tox B Gene COVID-19 (JESSY) COVID-19 Clin Com Influenza Type A (PCR) Influenza Type B (PCR) RSV RNA Qual (PCR) SARS-CoV-2 RNA (RT-PCR) Blood Type Antibody Screen Crossmatch 12/08/21 12/08/21 12/08/21 15:41 16:31 16:31 WBC RBC Hgb Hct MCV MCH MCHC RDW Plt Count MPV Immature Gran % (Auto) Neut % (Auto) Lymph % (Auto) [place] % (Auto) Eos % (Auto) Baso % (Auto) Lymph # (Auto) [place] # (Auto) Eos # (Auto) Baso # (Auto) Abs Immat Gran (auto) Absolute Neuts (auto) Absolute Nucleated RBC Nucleated RBC % (auto) Neutrophils % (Manual) Band Neutrophils % Lymphocytes % (Manual) Monocytes % (Manual) Abs Neuts (Manual) Lymphocytes # (Manual) Monocytes # (Manual) Platelet Estimate Plt Morphology Comment RBC Morphology Acanthocytes (Spur) Smear Tech's Comments Smear Path Review PT INR APTT O2 Saturation ABG pH at Pt Temp ABG pH (Temp Correct) ABG pCO2 at Pt Temp ABG pCO2 (Temp Corrct ABG pO2 at Pt Temp ABG pO2 (Temp Correct ABG HCO3 ABG Base Excess (Actual) VBG pH VBG pCO2 VBG pO2 VBG HCO3 VBG O2 Saturation VBG Base Excess Sodium Potassium Chloride Carbon Dioxide Anion Gap BUN Creatinine Estim Creat Clear Calc Estimated GFR POC Glucose Random Glucose Fasting Glucose Osmolality Lactic Acid Calcium Phosphorus Magnesium Transferrin Total Bilirubin Direct Bilirubin AST ALT Alkaline Phosphatase Ammonia Troponin I High Sens B-Natriuretic Peptide Total Protein Albumin Procalcitonin TSH Random Cortisol Urine Color Urine Appearance Urine pH Ur Specific [place] Urine Protein Urine Glucose (UA) Urine Ketones Urine Blood Urine Nitrite Ur Leukocyte Esterase Urine RBC Urine WBC Ur Squamous Epith Cells Urine Bacteria Urine Mucus Urine Osmolality Ur Random Sodium Ur Random Potassium Ur Random Chloride Stool Occult Blood POSITIVE Stool Leukocytes, Qual NEGATIVE Random Vancomycin Digoxin C. difficile Tox B Gene NEGATIVE COVID-19 (JESSY) COVID-19 Clin Com Influenza Type A (PCR) Influenza Type B (PCR) RSV RNA Qual (PCR) SARS-CoV-2 RNA (RT-PCR) Blood Type Antibody Screen Crossmatch 12/08/21 12/08/21 12/09/21 16:37 20:32 05:18 WBC RBC Hgb Hct MCV MCH MCHC RDW Plt Count MPV Immature Gran % (Auto) Neut % (Auto) Lymph % (Auto) [place] % (Auto) Eos % (Auto) Baso % (Auto) Lymph # (Auto) [place] # (Auto) Eos # (Auto) Baso # (Auto) Abs Immat Gran (auto) Absolute Neuts (auto) Absolute Nucleated RBC Nucleated RBC % (auto) Neutrophils % (Manual) Band Neutrophils % Lymphocytes % (Manual) Monocytes % (Manual) Abs Neuts (Manual) Lymphocytes # (Manual) Monocytes # (Manual) Platelet Estimate Plt Morphology Comment RBC Morphology Acanthocytes (Spur) Smear Tech's Comments Smear Path Review PT INR APTT O2 Saturation ABG pH at Pt Temp ABG pH (Temp Correct) ABG pCO2 at Pt Temp ABG pCO2 (Temp Corrct ABG pO2 at Pt Temp ABG pO2 (Temp Correct ABG HCO3 ABG Base Excess (Actual) VBG pH 7.45 H VBG pCO2 40 VBG pO2 42 VBG HCO3 28 H VBG O2 Saturation 69.0 VBG Base Excess 4.3 Sodium Potassium Chloride Carbon Dioxide Anion Gap BUN Creatinine Estim Creat Clear Calc Estimated GFR POC Glucose 174 H 220 H Random Glucose Fasting Glucose Osmolality Lactic Acid Calcium Phosphorus Magnesium Transferrin Total Bilirubin Direct Bilirubin AST ALT Alkaline Phosphatase Ammonia Troponin I High Sens B-Natriuretic Peptide Total Protein Albumin Procalcitonin TSH Random Cortisol Urine Color Urine Appearance Urine pH Ur Specific [place] Urine Protein Urine Glucose (UA) Urine Ketones Urine Blood Urine Nitrite Ur Leukocyte Esterase Urine RBC Urine WBC Ur Squamous Epith Cells Urine Bacteria Urine Mucus Urine Osmolality Ur Random Sodium Ur Random Potassium Ur Random Chloride Stool Occult Blood Stool Leukocytes, Qual Random Vancomycin Digoxin C. difficile Tox B Gene COVID-19 (JESSY) COVID-19 Clin Com Influenza Type A (PCR) Influenza Type B (PCR) RSV RNA Qual (PCR) SARS-CoV-2 RNA (RT-PCR) Blood Type Antibody Screen Crossmatch 12/09/21 12/09/21 12/09/21 05:20 05:20 05:20 WBC 16.5 H RBC 3.73 L Hgb 7.0 L* Hct 25.2 L MCV 67.6 L MCH 18.8 L MCHC 27.8 L RDW 22.9 H Plt Count 164 MPV TNP Immature Gran % (Auto) Neut % (Auto) Lymph % (Auto) [place] % (Auto) Eos % (Auto) Baso % (Auto) Lymph # (Auto) [place] # (Auto) Eos # (Auto) Baso # (Auto) Abs Immat Gran (auto) Absolute Neuts (auto) Absolute Nucleated RBC 0.040 H Nucleated RBC % (auto) 0.2 Neutrophils % (Manual) Band Neutrophils % Lymphocytes % (Manual) Monocytes % (Manual) Abs Neuts (Manual) Lymphocytes # (Manual) Monocytes # (Manual) Platelet Estimate Plt Morphology Comment RBC Morphology Acanthocytes (Spur) Smear Tech's Comments Smear Path Review PT 22.5 H INR 2.0 H APTT O2 Saturation ABG pH at Pt Temp ABG pH (Temp Correct) ABG pCO2 at Pt Temp ABG pCO2 (Temp Corrct ABG pO2 at Pt Temp ABG pO2 (Temp Correct ABG HCO3 ABG Base Excess (Actual) VBG pH VBG pCO2 VBG pO2 VBG HCO3 VBG O2 Saturation VBG Base Excess Sodium 142 Potassium 3.1 L Chloride 106 Carbon Dioxide 29 Anion Gap 10 L BUN 29 H Creatinine 1.12 Estim Creat Clear Calc 76.2 Estimated GFR 48 POC Glucose Random Glucose 268 H Fasting Glucose Osmolality Lactic Acid Calcium 7.1 L Phosphorus 3.0 Magnesium 2.1 Transferrin Total Bilirubin Direct Bilirubin AST ALT Alkaline Phosphatase Ammonia Troponin I High Sens B-Natriuretic Peptide Total Protein Albumin Procalcitonin TSH Random Cortisol Urine Color Urine Appearance Urine pH Ur Specific [place] Urine Protein Urine Glucose (UA) Urine Ketones Urine Blood Urine Nitrite Ur Leukocyte Esterase Urine RBC Urine WBC Ur Squamous Epith Cells Urine Bacteria Urine Mucus Urine Osmolality Ur Random Sodium Ur Random Potassium Ur Random Chloride Stool Occult Blood Stool Leukocytes, Qual Random Vancomycin Digoxin C. difficile Tox B Gene COVID-19 (JESSY) COVID-19 Clin Com Influenza Type A (PCR) Influenza Type B (PCR) RSV RNA Qual (PCR) SARS-CoV-2 RNA (RT-PCR) Blood Type Antibody Screen Crossmatch 12/09/21 12/09/21 12/09/21 05:20 06:46 07:14 WBC RBC Hgb Hct MCV MCH MCHC RDW Plt Count MPV Immature Gran % (Auto) Neut % (Auto) Lymph % (Auto) [place] % (Auto) Eos % (Auto) Baso % (Auto) Lymph # (Auto) [place] # (Auto) Eos # (Auto) Baso # (Auto) Abs Immat Gran (auto) Absolute Neuts (auto) Absolute Nucleated RBC Nucleated RBC % (auto) Neutrophils % (Manual) Band Neutrophils % Lymphocytes % (Manual) Monocytes % (Manual) Abs Neuts (Manual) Lymphocytes # (Manual) Monocytes # (Manual) Platelet Estimate Plt Morphology Comment RBC Morphology Acanthocytes (Spur) Smear Tech's Comments Smear Path Review PT INR APTT O2 Saturation ABG pH at Pt Temp ABG pH (Temp Correct) ABG pCO2 at Pt Temp ABG pCO2 (Temp Corrct ABG pO2 at Pt Temp ABG pO2 (Temp Correct ABG HCO3 ABG Base Excess (Actual) VBG pH VBG pCO2 VBG pO2 VBG HCO3 VBG O2 Saturation VBG Base Excess Sodium Potassium Chloride Carbon Dioxide Anion Gap BUN Creatinine Estim Creat Clear Calc Estimated GFR POC Glucose 255 H Random Glucose Fasting Glucose Osmolality Lactic Acid Calcium Phosphorus Magnesium Transferrin Total Bilirubin Direct Bilirubin AST ALT Alkaline Phosphatase Ammonia Troponin I High Sens B-Natriuretic Peptide Total Protein Albumin Procalcitonin 0.15 TSH Random Cortisol Urine Color Urine Appearance Urine pH Ur Specific [place] Urine Protein Urine Glucose (UA) Urine Ketones Urine Blood Urine Nitrite Ur Leukocyte Esterase Urine RBC Urine WBC Ur Squamous Epith Cells Urine Bacteria Urine Mucus Urine Osmolality Ur Random Sodium Ur Random Potassium Ur Random Chloride Stool Occult Blood Stool Leukocytes, Qual Random Vancomycin Digoxin C. difficile Tox B Gene COVID-19 (JESSY) COVID-19 Clin Com Influenza Type A (PCR) Influenza Type B (PCR) RSV RNA Qual (PCR) SARS-CoV-2 RNA (RT-PCR) Blood Type A Positive Antibody Screen NEGATIVE Crossmatch See Detail 12/09/21 12/09/21 12/09/21 11:32 16:12 21:05 WBC RBC Hgb Hct MCV MCH MCHC RDW Plt Count MPV Immature Gran % (Auto) Neut % (Auto) Lymph % (Auto) [place] % (Auto) Eos % (Auto) Baso % (Auto) Lymph # (Auto) [place] # (Auto) Eos # (Auto) Baso # (Auto) Abs Immat Gran (auto) Absolute Neuts (auto) Absolute Nucleated RBC Nucleated RBC % (auto) Neutrophils % (Manual) Band Neutrophils % Lymphocytes % (Manual) Monocytes % (Manual) Abs Neuts (Manual) Lymphocytes # (Manual) Monocytes # (Manual) Platelet Estimate Plt Morphology Comment RBC Morphology Acanthocytes (Spur) Smear Tech's Comments Smear Path Review PT INR APTT O2 Saturation ABG pH at Pt Temp ABG pH (Temp Correct) ABG pCO2 at Pt Temp ABG pCO2 (Temp Corrct ABG pO2 at Pt Temp ABG pO2 (Temp Correct ABG HCO3 ABG Base Excess (Actual) VBG pH VBG pCO2 VBG pO2 VBG HCO3 VBG O2 Saturation VBG Base Excess Sodium Potassium Chloride Carbon Dioxide Anion Gap BUN Creatinine Estim Creat Clear Calc Estimated GFR POC Glucose 233 H 182 H 220 H Random Glucose Fasting Glucose Osmolality Lactic Acid Calcium Phosphorus Magnesium Transferrin Total Bilirubin Direct Bilirubin AST ALT Alkaline Phosphatase Ammonia Troponin I High Sens B-Natriuretic Peptide Total Protein Albumin Procalcitonin TSH Random Cortisol Urine Color Urine Appearance Urine pH Ur Specific [place] Urine Protein Urine Glucose (UA) Urine Ketones Urine Blood Urine Nitrite Ur Leukocyte Esterase Urine RBC Urine WBC Ur Squamous Epith Cells Urine Bacteria Urine Mucus Urine Osmolality Ur Random Sodium Ur Random Potassium Ur Random Chloride Stool Occult Blood Stool Leukocytes, Qual Random Vancomycin Digoxin C. difficile Tox B Gene COVID-19 (JESSY) COVID-19 Clin Com Influenza Type A (PCR) Influenza Type B (PCR) RSV RNA Qual (PCR) SARS-CoV-2 RNA (RT-PCR) Blood Type Antibody Screen Crossmatch 12/10/21 12/10/21 12/10/21 05:09 05:30 05:30 WBC 16.6 H RBC 4.61 D Hgb 9.6 L D Hct 32.2 L D MCV 69.8 L MCH 20.8 L MCHC 29.8 L RDW 25.6 H Plt Count 173 MPV TNP Immature Gran % (Auto) Neut % (Auto) Lymph % (Auto) [place] % (Auto) Eos % (Auto) Baso % (Auto) Lymph # (Auto) [place] # (Auto) Eos # (Auto) Baso # (Auto) Abs Immat Gran (auto) Absolute Neuts (auto) Absolute Nucleated RBC 0.090 H Nucleated RBC % (auto) 0.5 H Neutrophils % (Manual) Band Neutrophils % Lymphocytes % (Manual) Monocytes % (Manual) Abs Neuts (Manual) Lymphocytes # (Manual) Monocytes # (Manual) Platelet Estimate Plt Morphology Comment RBC Morphology Acanthocytes (Spur) Smear Tech's Comments Smear Path Review PT INR APTT O2 Saturation ABG pH at Pt Temp ABG pH (Temp Correct) ABG pCO2 at Pt Temp ABG pCO2 (Temp Corrct ABG pO2 at Pt Temp ABG pO2 (Temp Correct ABG HCO3 ABG Base Excess (Actual) VBG pH VBG pCO2 VBG pO2 VBG HCO3 VBG O2 Saturation VBG Base Excess Sodium 143 Potassium 3.0 L Chloride 109 H Carbon Dioxide 25 Anion Gap 12 BUN 18 H Creatinine 0.89 Estim Creat Clear Calc 98.6 Estimated GFR > 60 POC Glucose 193 H Random Glucose 195 H Fasting Glucose Osmolality Lactic Acid Calcium 7.6 L D Phosphorus 2.3 L Magnesium 2.0 Transferrin Total Bilirubin Direct Bilirubin AST ALT Alkaline Phosphatase Ammonia Troponin I High Sens B-Natriuretic Peptide Total Protein Albumin Procalcitonin TSH Random Cortisol Urine Color Urine Appearance Urine pH Ur Specific [place] Urine Protein Urine Glucose (UA) Urine Ketones Urine Blood Urine Nitrite Ur Leukocyte Esterase Urine RBC Urine WBC Ur Squamous Epith Cells Urine Bacteria Urine Mucus Urine Osmolality Ur Random Sodium Ur Random Potassium Ur Random Chloride Stool Occult Blood Stool Leukocytes, Qual Random Vancomycin Digoxin C. difficile Tox B Gene COVID-19 (JESSY) COVID-19 Clin Com Influenza Type A (PCR) Influenza Type B (PCR) RSV RNA Qual (PCR) SARS-CoV-2 RNA (RT-PCR) Blood Type Antibody Screen Crossmatch 12/10/21 12/10/21 12/10/21 05:37 07:23 11:22 WBC RBC Hgb Hct MCV MCH MCHC RDW Plt Count MPV Immature Gran % (Auto) Neut % (Auto) Lymph % (Auto) [place] % (Auto) Eos % (Auto) Baso % (Auto) Lymph # (Auto) [place] # (Auto) Eos # (Auto) Baso # (Auto) Abs Immat Gran (auto) Absolute Neuts (auto) Absolute Nucleated RBC Nucleated RBC % (auto) Neutrophils % (Manual) Band Neutrophils % Lymphocytes % (Manual) Monocytes % (Manual) Abs Neuts (Manual) Lymphocytes # (Manual) Monocytes # (Manual) Platelet Estimate Plt Morphology Comment RBC Morphology Acanthocytes (Spur) Smear Tech's Comments Smear Path Review PT INR APTT O2 Saturation ABG pH at Pt Temp ABG pH (Temp Correct) ABG pCO2 at Pt Temp ABG pCO2 (Temp Corrct ABG pO2 at Pt Temp ABG pO2 (Temp Correct ABG HCO3 ABG Base Excess (Actual) VBG pH 7.49 H VBG pCO2 34 VBG pO2 41 VBG HCO3 26 VBG O2 Saturation 70.0 VBG Base Excess 3.4 Sodium Potassium Chloride Carbon Dioxide Anion Gap BUN Creatinine Estim Creat Clear Calc Estimated GFR POC Glucose 194 H 173 H Random Glucose Fasting Glucose Osmolality Lactic Acid Calcium Phosphorus Magnesium Transferrin Total Bilirubin Direct Bilirubin AST ALT Alkaline Phosphatase Ammonia Troponin I High Sens B-Natriuretic Peptide Total Protein Albumin Procalcitonin TSH Random Cortisol Urine Color Urine Appearance Urine pH Ur Specific [place] Urine Protein Urine Glucose (UA) Urine Ketones Urine Blood Urine Nitrite Ur Leukocyte Esterase Urine RBC Urine WBC Ur Squamous Epith Cells Urine Bacteria Urine Mucus Urine Osmolality Ur Random Sodium Ur Random Potassium Ur Random Chloride Stool Occult Blood Stool Leukocytes, Qual Random Vancomycin Digoxin C. difficile Tox B Gene COVID-19 (JESSY) COVID-19 Clin Com Influenza Type A (PCR) Influenza Type B (PCR) RSV RNA Qual (PCR) SARS-CoV-2 RNA (RT-PCR) Blood Type Antibody Screen Crossmatch 12/10/21 12/10/21 12/10/21 15:53 16:14 17:46 WBC RBC Hgb Hct MCV MCH MCHC RDW Plt Count MPV Immature Gran % (Auto) Neut % (Auto) Lymph % (Auto) [place] % (Auto) Eos % (Auto) Baso % (Auto) Lymph # (Auto) [place] # (Auto) Eos # (Auto) Baso # (Auto) Abs Immat Gran (auto) Absolute Neuts (auto) Absolute Nucleated RBC Nucleated RBC % (auto) Neutrophils % (Manual) Band Neutrophils % Lymphocytes % (Manual) Monocytes % (Manual) Abs Neuts (Manual) Lymphocytes # (Manual) Monocytes # (Manual) Platelet Estimate Plt Morphology Comment RBC Morphology Acanthocytes (Spur) Smear Tech's Comments Smear Path Review PT INR APTT O2 Saturation ABG pH at Pt Temp ABG pH (Temp Correct) ABG pCO2 at Pt Temp ABG pCO2 (Temp Corrct ABG pO2 at Pt Temp ABG pO2 (Temp Correct ABG HCO3 ABG Base Excess (Actual) VBG pH VBG pCO2 VBG pO2 VBG HCO3 VBG O2 Saturation VBG Base Excess Sodium 144 Potassium 3.8 D Chloride 111 H Carbon Dioxide 26 Anion Gap 11 L BUN 17 H Creatinine 0.92 Estim Creat Clear Calc 95.4 Estimated GFR > 60 POC Glucose 140 H Random Glucose 134 H Fasting Glucose Osmolality Lactic Acid Calcium 7.6 L Phosphorus 2.3 L Magnesium 2.5 Transferrin Total Bilirubin Direct Bilirubin AST ALT Alkaline Phosphatase Ammonia Troponin I High Sens B-Natriuretic Peptide Total Protein Albumin Procalcitonin TSH Random Cortisol Urine Color Urine Appearance Urine pH Ur Specific [place] Urine Protein Urine Glucose (UA) Urine Ketones Urine Blood Urine Nitrite Ur Leukocyte Esterase Urine RBC Urine WBC Ur Squamous Epith Cells Urine Bacteria Urine Mucus Urine Osmolality Ur Random Sodium Ur Random Potassium Ur Random Chloride Stool Occult Blood Stool Leukocytes, Qual Random Vancomycin 10.1 L Digoxin C. difficile Tox B Gene COVID-19 (JESSY) COVID-19 Clin Com Influenza Type A (PCR) Influenza Type B (PCR) RSV RNA Qual (PCR) SARS-CoV-2 RNA (RT-PCR) Blood Type Antibody Screen Crossmatch 12/10/21 12/11/21 12/11/21 21:36 01:30 06:30 WBC 13.4 H RBC 4.14 L Hgb 8.6 L Hct 29.2 L MCV 70.5 L MCH 20.8 L MCHC 29.5 L RDW 26.3 H Plt Count 200 MPV Not Reportable Immature Gran % (Auto) 1.0 H Neut % (Auto) 82.8 H Lymph % (Auto) 9.7 L [place] % (Auto) 5.5 Eos % (Auto) 0.9 Baso % (Auto) 0.1 Lymph # (Auto) 1.3 [place] # (Auto) 0.7 Eos # (Auto) 0.1 Baso # (Auto) 0.0 Abs Immat Gran (auto) 0.13 H Absolute Neuts (auto) 11.1 H Absolute Nucleated RBC 0.020 H Nucleated RBC % (auto) 0.1 Neutrophils % (Manual) Band Neutrophils % Lymphocytes % (Manual) Monocytes % (Manual) Abs Neuts (Manual) Lymphocytes # (Manual) Monocytes # (Manual) Platelet Estimate Plt Morphology Comment RBC Morphology Acanthocytes (Spur) Smear Tech's Comments VERIFIED Smear Path Review PT INR APTT O2 Saturation ABG pH at Pt Temp ABG pH (Temp Correct) ABG pCO2 at Pt Temp ABG pCO2 (Temp Corrct ABG pO2 at Pt Temp ABG pO2 (Temp Correct ABG HCO3 ABG Base Excess (Actual) VBG pH VBG pCO2 VBG pO2 VBG HCO3 VBG O2 Saturation VBG Base Excess Sodium Potassium Chloride Carbon Dioxide Anion Gap BUN Creatinine Estim Creat Clear Calc Estimated GFR POC Glucose 117 H Random Glucose Fasting Glucose Osmolality Lactic Acid Calcium Phosphorus Magnesium Transferrin Total Bilirubin Direct Bilirubin AST ALT Alkaline Phosphatase Ammonia Troponin I High Sens B-Natriuretic Peptide Total Protein Albumin Procalcitonin TSH Random Cortisol Urine Color YELLOW Urine Appearance CLEAR Urine pH 6.0 Ur Specific [place] 1.015 Urine Protein NEG Urine Glucose (UA) NEG Urine Ketones NEG Urine Blood 1+ H Urine Nitrite NEG Ur Leukocyte Esterase NEG Urine RBC 5-9 H Urine WBC 1-4 Ur Squamous Epith Cells 1+ Urine Bacteria 1+ Urine Mucus Urine Osmolality Ur Random Sodium Ur Random Potassium Ur Random Chloride Stool Occult Blood Stool Leukocytes, Qual Random Vancomycin Digoxin C. difficile Tox B Gene COVID-19 (JESSY) COVID-19 Clin Com Influenza Type A (PCR) Influenza Type B (PCR) RSV RNA Qual (PCR) SARS-CoV-2 RNA (RT-PCR) Blood Type Antibody Screen Crossmatch 12/11/21 12/11/21 12/11/21 06:30 06:30 07:10 WBC RBC Hgb Hct MCV MCH MCHC RDW Plt Count MPV Immature Gran % (Auto) Neut % (Auto) Lymph % (Auto) [place] % (Auto) Eos % (Auto) Baso % (Auto) Lymph # (Auto) [place] # (Auto) Eos # (Auto) Baso # (Auto) Abs Immat Gran (auto) Absolute Neuts (auto) Absolute Nucleated RBC Nucleated RBC % (auto) Neutrophils % (Manual) Band Neutrophils % Lymphocytes % (Manual) Monocytes % (Manual) Abs Neuts (Manual) Lymphocytes # (Manual) Monocytes # (Manual) Platelet Estimate Plt Morphology Comment RBC Morphology Acanthocytes (Spur) Smear Tech's Comments Smear Path Review PT INR APTT O2 Saturation ABG pH at Pt Temp ABG pH (Temp Correct) ABG pCO2 at Pt Temp ABG pCO2 (Temp Corrct ABG pO2 at Pt Temp ABG pO2 (Temp Correct ABG HCO3 ABG Base Excess (Actual) VBG pH 7.46 H VBG pCO2 36 VBG pO2 34 VBG HCO3 26 VBG O2 Saturation 55.0 VBG Base Excess 2.9 Sodium 143 Potassium 3.6 Chloride 110 H Carbon Dioxide 26 Anion Gap 11 L BUN 17 H Creatinine 0.88 Estim Creat Clear Calc 98.8 Estimated GFR > 60 POC Glucose 91 Random Glucose 95 Fasting Glucose Osmolality Lactic Acid Calcium 7.4 L Phosphorus Magnesium Transferrin Total Bilirubin 0.8 Direct Bilirubin AST 29 D ALT 19 Alkaline Phosphatase 52 Ammonia Troponin I High Sens B-Natriuretic Peptide Total Protein 4.7 L Albumin 2.5 L Procalcitonin TSH Random Cortisol Urine Color Urine Appearance Urine pH Ur Specific [place] Urine Protein Urine Glucose (UA) Urine Ketones Urine Blood Urine Nitrite Ur Leukocyte Esterase Urine RBC Urine WBC Ur Squamous Epith Cells Urine Bacteria Urine Mucus Urine Osmolality Ur Random Sodium Ur Random Potassium Ur Random Chloride Stool Occult Blood Stool Leukocytes, Qual Random Vancomycin Digoxin C. difficile Tox B Gene COVID-19 (JESSY) COVID-19 Clin Com Influenza Type A (PCR) Influenza Type B (PCR) RSV RNA Qual (PCR) SARS-CoV-2 RNA (RT-PCR) Blood Type Antibody Screen Crossmatch 12/11/21 12/11/21 12/11/21 11:28 16:29 19:09 WBC RBC Hgb Hct MCV MCH MCHC RDW Plt Count MPV Immature Gran % (Auto) Neut % (Auto) Lymph % (Auto) [place] % (Auto) Eos % (Auto) Baso % (Auto) Lymph # (Auto) [place] # (Auto) Eos # (Auto) Baso # (Auto) Abs Immat Gran (auto) Absolute Neuts (auto) Absolute Nucleated RBC Nucleated RBC % (auto) Neutrophils % (Manual) Band Neutrophils % Lymphocytes % (Manual) Monocytes % (Manual) Abs Neuts (Manual) Lymphocytes # (Manual) Monocytes # (Manual) Platelet Estimate Plt Morphology Comment RBC Morphology Acanthocytes (Spur) Smear Tech's Comments Smear Path Review PT INR APTT O2 Saturation ABG pH at Pt Temp ABG pH (Temp Correct) ABG pCO2 at Pt Temp ABG pCO2 (Temp Corrct ABG pO2 at Pt Temp ABG pO2 (Temp Correct ABG HCO3 ABG Base Excess (Actual) VBG pH VBG pCO2 VBG pO2 VBG HCO3 VBG O2 Saturation VBG Base Excess Sodium Potassium Chloride Carbon Dioxide Anion Gap BUN Creatinine Estim Creat Clear Calc Estimated GFR POC Glucose 148 H 191 H Random Glucose Fasting Glucose Osmolality Lactic Acid Calcium Phosphorus Magnesium Transferrin Total Bilirubin Direct Bilirubin AST ALT Alkaline Phosphatase Ammonia Troponin I High Sens B-Natriuretic Peptide Total Protein Albumin Procalcitonin TSH Random Cortisol Urine Color Urine Appearance Urine pH Ur Specific [place] Urine Protein Urine Glucose (UA) Urine Ketones Urine Blood Urine Nitrite Ur Leukocyte Esterase Urine RBC Urine WBC Ur Squamous Epith Cells Urine Bacteria Urine Mucus Urine Osmolality Ur Random Sodium Ur Random Potassium Ur Random Chloride Stool Occult Blood Stool Leukocytes, Qual Random Vancomycin Digoxin C. difficile Tox B Gene COVID-19 (JESSY) COVID-19 Clin Com Influenza Type A (PCR) NEGATIVE Influenza Type B (PCR) NEGATIVE RSV RNA Qual (PCR) NEGATIVE SARS-CoV-2 RNA (RT-PCR) NEGATIVE Blood Type Antibody Screen Crossmatch 12/11/21 12/11/2122 19:58 21:37 02:35 WBC RBC Hgb Hct MCV MCH MCHC RDW Plt Count MPV Immature Gran % (Auto) Neut % (Auto) Lymph % (Auto) [place] % (Auto) Eos % (Auto) Baso % (Auto) Lymph # (Auto) [place] # (Auto) Eos # (Auto) Baso # (Auto) Abs Immat Gran (auto) Absolute Neuts (auto) Absolute Nucleated RBC Nucleated RBC % (auto) Neutrophils % (Manual) Band Neutrophils % Lymphocytes % (Manual) Monocytes % (Manual) Abs Neuts (Manual) Lymphocytes # (Manual) Monocytes # (Manual) Platelet Estimate Plt Morphology Comment RBC Morphology Acanthocytes (Spur) Smear Tech's Comments Smear Path Review PT INR APTT O2 Saturation ABG pH at Pt Temp ABG pH (Temp Correct) ABG pCO2 at Pt Temp ABG pCO2 (Temp Corrct ABG pO2 at Pt Temp ABG pO2 (Temp Correct ABG HCO3 ABG Base Excess (Actual) VBG pH VBG pCO2 VBG pO2 VBG HCO3 VBG O2 Saturation VBG Base Excess Sodium Potassium Chloride Carbon Dioxide Anion Gap BUN Creatinine Estim Creat Clear Calc Estimated GFR POC Glucose 184 H Random Glucose Fasting Glucose Osmolality Lactic Acid 0.9 Calcium Phosphorus Magnesium Transferrin Total Bilirubin Direct Bilirubin AST ALT Alkaline Phosphatase Ammonia Troponin I High Sens B-Natriuretic Peptide Total Protein Albumin Procalcitonin TSH Random Cortisol Urine Color Urine Appearance Urine pH Ur Specific [place] Urine Protein Urine Glucose (UA) Urine Ketones Urine Blood Urine Nitrite Ur Leukocyte Esterase Urine RBC Urine WBC Ur Squamous Epith Cells Urine Bacteria Urine Mucus Urine Osmolality Ur Random Sodium Ur Random Potassium Ur Random Chloride Stool Occult Blood POSITIVE Stool Leukocytes, Qual Random Vancomycin Digoxin C. difficile Tox B Gene COVID-19 (JESSY) COVID-19 Clin Com Influenza Type A (PCR) Influenza Type B (PCR) RSV RNA Qual (PCR) SARS-CoV-2 RNA (RT-PCR) Blood Type Antibody Screen Crossmatch 12/12/21 12/12/21 12/12/21 05:20 05:20 05:24 WBC 17.2 H RBC 4.37 Hgb 9.2 L Hct 30.9 L MCV 70.7 L MCH 21.1 L MCHC 29.8 L RDW 27.7 H Plt Count Not Reportable MPV Not Reportable Immature Gran % (Auto) 1.0 H Neut % (Auto) 86.2 H Lymph % (Auto) 6.9 L [place] % (Auto) 4.6 Eos % (Auto) 1.0 Baso % (Auto) 0.3 Lymph # (Auto) 1.2 [place] # (Auto) 0.8 Eos # (Auto) 0.2 Baso # (Auto) 0.1 Abs Immat Gran (auto) 0.17 H Absolute Neuts (auto) 14.8 H Absolute Nucleated RBC 0.030 H Nucleated RBC % (auto) 0.2 Neutrophils % (Manual) Band Neutrophils % Lymphocytes % (Manual) Monocytes % (Manual) Abs Neuts (Manual) Lymphocytes # (Manual) Monocytes # (Manual) Platelet Estimate Plt Morphology Comment RBC Morphology Acanthocytes (Spur) Smear Tech's Comments VERIFIED Smear Path Review PT INR APTT O2 Saturation ABG pH at Pt Temp ABG pH (Temp Correct) ABG pCO2 at Pt Temp ABG pCO2 (Temp Corrct ABG pO2 at Pt Temp ABG pO2 (Temp Correct ABG HCO3 ABG Base Excess (Actual) VBG pH 7.46 H VBG pCO2 36 VBG pO2 37 VBG HCO3 25 VBG O2 Saturation 59.0 VBG Base Excess 2.1 Sodium 137 Potassium 4.0 Chloride 102 Carbon Dioxide 25 Anion Gap 14 BUN 19 H Creatinine 0.96 Estim Creat Clear Calc 90.5 Estimated GFR 58 POC Glucose Random Glucose 233 H Fasting Glucose Osmolality Lactic Acid Calcium 7.8 L Phosphorus 3.5 Magnesium 2.0 Transferrin Total Bilirubin 0.8 Direct Bilirubin AST 25 ALT 23 Alkaline Phosphatase 60 Ammonia Troponin I High Sens B-Natriuretic Peptide Total Protein 5.3 L Albumin 2.7 L Procalcitonin TSH Random Cortisol Urine Color Urine Appearance Urine pH Ur Specific [place] Urine Protein Urine Glucose (UA) Urine Ketones Urine Blood Urine Nitrite Ur Leukocyte Esterase Urine RBC Urine WBC Ur Squamous Epith Cells Urine Bacteria Urine Mucus Urine Osmolality Ur Random Sodium Ur Random Potassium Ur Random Chloride Stool Occult Blood Stool Leukocytes, Qual Random Vancomycin Digoxin C. difficile Tox B Gene COVID-19 (JESSY) COVID-19 Clin Com Influenza Type A (PCR) Influenza Type B (PCR) RSV RNA Qual (PCR) SARS-CoV-2 RNA (RT-PCR) Blood Type Antibody Screen Crossmatch 12/12/21 12/12/21 12/12/21 07:28 11:11 16:17 WBC RBC Hgb Hct MCV MCH MCHC RDW Plt Count MPV Immature Gran % (Auto) Neut % (Auto) Lymph % (Auto) [place] % (Auto) Eos % (Auto) Baso % (Auto) Lymph # (Auto) [place] # (Auto) Eos # (Auto) Baso # (Auto) Abs Immat Gran (auto) Absolute Neuts (auto) Absolute Nucleated RBC Nucleated RBC % (auto) Neutrophils % (Manual) Band Neutrophils % Lymphocytes % (Manual) Monocytes % (Manual) Abs Neuts (Manual) Lymphocytes # (Manual) Monocytes # (Manual) Platelet Estimate Plt Morphology Comment RBC Morphology Acanthocytes (Spur) Smear Tech's Comments Smear Path Review PT INR APTT O2 Saturation ABG pH at Pt Temp ABG pH (Temp Correct) ABG pCO2 at Pt Temp ABG pCO2 (Temp Corrct ABG pO2 at Pt Temp ABG pO2 (Temp Correct ABG HCO3 ABG Base Excess (Actual) VBG pH VBG pCO2 VBG pO2 VBG HCO3 VBG O2 Saturation VBG Base Excess Sodium Potassium Chloride Carbon Dioxide Anion Gap BUN Creatinine Estim Creat Clear Calc Estimated GFR POC Glucose 219 H 211 H 126 H Random Glucose Fasting Glucose Osmolality Lactic Acid Calcium Phosphorus Magnesium Transferrin Total Bilirubin Direct Bilirubin AST ALT Alkaline Phosphatase Ammonia Troponin I High Sens B-Natriuretic Peptide Total Protein Albumin Procalcitonin TSH Random Cortisol Urine Color Urine Appearance Urine pH Ur Specific [place] Urine Protein Urine Glucose (UA) Urine Ketones Urine Blood Urine Nitrite Ur Leukocyte Esterase Urine RBC Urine WBC Ur Squamous Epith Cells Urine Bacteria Urine Mucus Urine Osmolality Ur Random Sodium Ur Random Potassium Ur Random Chloride Stool Occult Blood Stool Leukocytes, Qual Random Vancomycin Digoxin C. difficile Tox B Gene COVID-19 (JESSY) COVID-19 Clin Com Influenza Type A (PCR) Influenza Type B (PCR) RSV RNA Qual (PCR) SARS-CoV-2 RNA (RT-PCR) Blood Type Antibody Screen Crossmatch 12/12/21 12/13/21 12/13/21 20:46 05:20 05:20 WBC 14.9 H RBC 4.04 L Hgb 8.5 L Hct 29.1 L MCV 72.0 L MCH 21.0 L MCHC 29.2 L RDW 27.8 H Plt Count 325 D MPV 11.2 Immature Gran % (Auto) 0.7 H Neut % (Auto) 86.0 H Lymph % (Auto) 5.6 L [place] % (Auto) 6.3 Eos % (Auto) 1.1 Baso % (Auto) 0.3 Lymph # (Auto) 0.8 L [place] # (Auto) 0.9 Eos # (Auto) 0.2 Baso # (Auto) 0.0 Abs Immat Gran (auto) 0.11 H Absolute Neuts (auto) 12.8 H Absolute Nucleated RBC 0.000 Nucleated RBC % (auto) 0.0 Neutrophils % (Manual) Band Neutrophils % Lymphocytes % (Manual) Monocytes % (Manual) Abs Neuts (Manual) Lymphocytes # (Manual) Monocytes # (Manual) Platelet Estimate Plt Morphology Comment RBC Morphology Acanthocytes (Spur) Smear Tech's Comments Smear Path Review PT INR APTT O2 Saturation ABG pH at Pt Temp ABG pH (Temp Correct) ABG pCO2 at Pt Temp ABG pCO2 (Temp Corrct ABG pO2 at Pt Temp ABG pO2 (Temp Correct ABG HCO3 ABG Base Excess (Actual) VBG pH VBG pCO2 VBG pO2 VBG HCO3 VBG O2 Saturation VBG Base Excess Sodium 141 Potassium 3.1 L D Chloride 103 Carbon Dioxide 27 Anion Gap 14 BUN 18 H Creatinine 0.96 Estim Creat Clear Calc 88.3 Estimated GFR 58 POC Glucose 65 Random Glucose 60 Fasting Glucose Osmolality Lactic Acid Calcium 7.9 L Phosphorus 4.4 Magnesium Transferrin Total Bilirubin 0.7 Direct Bilirubin AST 36 H D ALT 25 Alkaline Phosphatase 60 Ammonia Troponin I High Sens B-Natriuretic Peptide Total Protein 5.2 L Albumin 2.7 L Procalcitonin TSH Random Cortisol Urine Color Urine Appearance Urine pH Ur Specific [place] Urine Protein Urine Glucose (UA) Urine Ketones Urine Blood Urine Nitrite Ur Leukocyte Esterase Urine RBC Urine WBC Ur Squamous Epith Cells Urine Bacteria Urine Mucus Urine Osmolality Ur Random Sodium Ur Random Potassium Ur Random Chloride Stool Occult Blood Stool Leukocytes, Qual Random Vancomycin Digoxin C. difficile Tox B Gene COVID-19 (JESSY) COVID-19 Clin Com Influenza Type A (PCR) Influenza Type B (PCR) RSV RNA Qual (PCR) SARS-CoV-2 RNA (RT-PCR) Blood Type Antibody Screen Crossmatch 12/13/21 12/13/21 12/13/21 05:23 07:40 08:30 WBC RBC Hgb Hct MCV MCH MCHC RDW Plt Count MPV Immature Gran % (Auto) Neut % (Auto) Lymph % (Auto) [place] % (Auto) Eos % (Auto) Baso % (Auto) Lymph # (Auto) [place] # (Auto) Eos # (Auto) Baso # (Auto) Abs Immat Gran (auto) Absolute Neuts (auto) Absolute Nucleated RBC Nucleated RBC % (auto) Neutrophils % (Manual) Band Neutrophils % Lymphocytes % (Manual) Monocytes % (Manual) Abs Neuts (Manual) Lymphocytes # (Manual) Monocytes # (Manual) Platelet Estimate Plt Morphology Comment RBC Morphology Acanthocytes (Spur) Smear Tech's Comments Smear Path Review PT INR APTT O2 Saturation ABG pH at Pt Temp ABG pH (Temp Correct) ABG pCO2 at Pt Temp ABG pCO2 (Temp Corrct ABG pO2 at Pt Temp ABG pO2 (Temp Correct ABG HCO3 ABG Base Excess (Actual) VBG pH 7.38 VBG pCO2 51 VBG pO2 42 VBG HCO3 30 H VBG O2 Saturation 66.0 VBG Base Excess 4.8 Sodium Potassium Chloride Carbon Dioxide Anion Gap BUN Creatinine Estim Creat Clear Calc Estimated GFR POC Glucose 57 L* 122 H Random Glucose Fasting Glucose Osmolality Lactic Acid Calcium Phosphorus Magnesium Transferrin Total Bilirubin Direct Bilirubin AST ALT Alkaline Phosphatase Ammonia Troponin I High Sens B-Natriuretic Peptide Total Protein Albumin Procalcitonin TSH Random Cortisol Urine Color Urine Appearance Urine pH Ur Specific [place] Urine Protein Urine Glucose (UA) Urine Ketones Urine Blood Urine Nitrite Ur Leukocyte Esterase Urine RBC Urine WBC Ur Squamous Epith Cells Urine Bacteria Urine Mucus Urine Osmolality Ur Random Sodium Ur Random Potassium Ur Random Chloride Stool Occult Blood Stool Leukocytes, Qual Random Vancomycin Digoxin C. difficile Tox B Gene COVID-19 (JESSY) COVID-19 Clin Com Influenza Type A (PCR) Influenza Type B (PCR) RSV RNA Qual (PCR) SARS-CoV-2 RNA (RT-PCR) Blood Type Antibody Screen Crossmatch 12/13/21 12/13/21 12/13/21 11:44 16:22 16:43 WBC RBC Hgb Hct MCV MCH MCHC RDW Plt Count MPV Immature Gran % (Auto) Neut % (Auto) Lymph % (Auto) [place] % (Auto) Eos % (Auto) Baso % (Auto) Lymph # (Auto) [place] # (Auto) Eos # (Auto) Baso # (Auto) Abs Immat Gran (auto) Absolute Neuts (auto) Absolute Nucleated RBC Nucleated RBC % (auto) Neutrophils % (Manual) Band Neutrophils % Lymphocytes % (Manual) Monocytes % (Manual) Abs Neuts (Manual) Lymphocytes # (Manual) Monocytes # (Manual) Platelet Estimate Plt Morphology Comment RBC Morphology Acanthocytes (Spur) Smear Tech's Comments Smear Path Review PT INR APTT O2 Saturation ABG pH at Pt Temp ABG pH (Temp Correct) ABG pCO2 at Pt Temp ABG pCO2 (Temp Corrct ABG pO2 at Pt Temp ABG pO2 (Temp Correct ABG HCO3 ABG Base Excess (Actual) VBG pH VBG pCO2 VBG pO2 VBG HCO3 VBG O2 Saturation VBG Base Excess Sodium Potassium Chloride Carbon Dioxide Anion Gap BUN Creatinine Estim Creat Clear Calc Estimated GFR POC Glucose 85 57 L* 82 Random Glucose Fasting Glucose Osmolality Lactic Acid Calcium Phosphorus Magnesium Transferrin Total Bilirubin Direct Bilirubin AST ALT Alkaline Phosphatase Ammonia Troponin I High Sens B-Natriuretic Peptide Total Protein Albumin Procalcitonin TSH Random Cortisol Urine Color Urine Appearance Urine pH Ur Specific [place] Urine Protein Urine Glucose (UA) Urine Ketones Urine Blood Urine Nitrite Ur Leukocyte Esterase Urine RBC Urine WBC Ur Squamous Epith Cells Urine Bacteria Urine Mucus Urine Osmolality Ur Random Sodium Ur Random Potassium Ur Random Chloride Stool Occult Blood Stool Leukocytes, Qual Random Vancomycin Digoxin C. difficile Tox B Gene COVID-19 (JESSY) COVID-19 Clin Com Influenza Type A (PCR) Influenza Type B (PCR) RSV RNA Qual (PCR) SARS-CoV-2 RNA (RT-PCR) Blood Type Antibody Screen Crossmatch 12/13/21 12/13/21 12/14/21 17:44 20:49 04:48 WBC 10.3 RBC 3.89 L Hgb 8.2 L Hct 28.0 L MCV 72.0 L MCH 21.1 L MCHC 29.3 L RDW 27.8 H Plt Count 420 H D MPV 10.8 Immature Gran % (Auto) 0.8 H Neut % (Auto) 83.2 H Lymph % (Auto) 6.7 L [place] % (Auto) 7.8 Eos % (Auto) 1.3 Baso % (Auto) 0.2 Lymph # (Auto) 0.7 L [place] # (Auto) 0.8 Eos # (Auto) 0.1 Baso # (Auto) 0.0 Abs Immat Gran (auto) 0.08 H Absolute Neuts (auto) 8.6 H Absolute Nucleated RBC 0.000 Nucleated RBC % (auto) 0.0 Neutrophils % (Manual) Band Neutrophils % Lymphocytes % (Manual) Monocytes % (Manual) Abs Neuts (Manual) Lymphocytes # (Manual) Monocytes # (Manual) Platelet Estimate Plt Morphology Comment RBC Morphology Acanthocytes (Spur) Smear Tech's Comments Smear Path Review PT INR APTT O2 Saturation ABG pH at Pt Temp ABG pH (Temp Correct) ABG pCO2 at Pt Temp ABG pCO2 (Temp Corrct ABG pO2 at Pt Temp ABG pO2 (Temp Correct ABG HCO3 ABG Base Excess (Actual) VBG pH VBG pCO2 VBG pO2 VBG HCO3 VBG O2 Saturation VBG Base Excess Sodium Potassium Chloride Carbon Dioxide Anion Gap BUN Creatinine Estim Creat Clear Calc Estimated GFR POC Glucose 108 79 Random Glucose Fasting Glucose Osmolality Lactic Acid Calcium Phosphorus Magnesium Transferrin Total Bilirubin Direct Bilirubin AST ALT Alkaline Phosphatase Ammonia Troponin I High Sens B-Natriuretic Peptide Total Protein Albumin Procalcitonin TSH Random Cortisol Urine Color Urine Appearance Urine pH Ur Specific [place] Urine Protein Urine Glucose (UA) Urine Ketones Urine Blood Urine Nitrite Ur Leukocyte Esterase Urine RBC Urine WBC Ur Squamous Epith Cells Urine Bacteria Urine Mucus Urine Osmolality Ur Random Sodium Ur Random Potassium Ur Random Chloride Stool Occult Blood Stool Leukocytes, Qual Random Vancomycin Digoxin C. difficile Tox B Gene COVID-19 (JESSY) COVID-19 Clin Com Influenza Type A (PCR) Influenza Type B (PCR) RSV RNA Qual (PCR) SARS-CoV-2 RNA (RT-PCR) Blood Type Antibody Screen Crossmatch 12/14/21 12/14/21 12/14/21 04:48 04:48 04:48 WBC RBC Hgb Hct MCV MCH MCHC RDW Plt Count MPV Immature Gran % (Auto) Neut % (Auto) Lymph % (Auto) [place] % (Auto) Eos % (Auto) Baso % (Auto) Lymph # (Auto) [place] # (Auto) Eos # (Auto) Baso # (Auto) Abs Immat Gran (auto) Absolute Neuts (auto) Absolute Nucleated RBC Nucleated RBC % (auto) Neutrophils % (Manual) Band Neutrophils % Lymphocytes % (Manual) Monocytes % (Manual) Abs Neuts (Manual) Lymphocytes # (Manual) Monocytes # (Manual) Platelet Estimate Plt Morphology Comment RBC Morphology Acanthocytes (Spur) Smear Tech's Comments Smear Path Review PT 22.4 H INR 1.9 H APTT 44.5 H O2 Saturation ABG pH at Pt Temp ABG pH (Temp Correct) ABG pCO2 at Pt Temp ABG pCO2 (Temp Corrct ABG pO2 at Pt Temp ABG pO2 (Temp Correct ABG HCO3 ABG Base Excess (Actual) VBG pH VBG pCO2 VBG pO2 VBG HCO3 VBG O2 Saturation VBG Base Excess Sodium 140 Potassium 3.0 L Chloride 105 Carbon Dioxide 30 H Anion Gap 8 L BUN 15 Creatinine 0.76 Estim Creat Clear Calc 111.5 Estimated GFR > 60 POC Glucose Random Glucose 66 Fasting Glucose Osmolality Lactic Acid Calcium 8.2 L Phosphorus 2.7 Magnesium 2.1 Transferrin Total Bilirubin 0.6 Direct Bilirubin 0.5 AST 30 ALT 25 Alkaline Phosphatase 61 Ammonia Troponin I High Sens B-Natriuretic Peptide 253 H Total Protein 5.0 L Albumin 2.6 L Procalcitonin TSH Random Cortisol Urine Color Urine Appearance Urine pH Ur Specific [place] Urine Protein Urine Glucose (UA) Urine Ketones Urine Blood Urine Nitrite Ur Leukocyte Esterase Urine RBC Urine WBC Ur Squamous Epith Cells Urine Bacteria Urine Mucus Urine Osmolality Ur Random Sodium Ur Random Potassium Ur Random Chloride Stool Occult Blood Stool Leukocytes, Qual Random Vancomycin Digoxin C. difficile Tox B Gene COVID-19 (JESSY) COVID-19 Clin Com Influenza Type A (PCR) Influenza Type B (PCR) RSV RNA Qual (PCR) SARS-CoV-2 RNA (RT-PCR) Blood Type Antibody Screen Crossmatch 12/14/21 12/14/21 12/14/21 04:57 07:13 11:20 WBC RBC Hgb Hct MCV MCH MCHC RDW Plt Count MPV Immature Gran % (Auto) Neut % (Auto) Lymph % (Auto) [place] % (Auto) Eos % (Auto) Baso % (Auto) Lymph # (Auto) [place] # (Auto) Eos # (Auto) Baso # (Auto) Abs Immat Gran (auto) Absolute Neuts (auto) Absolute Nucleated RBC Nucleated RBC % (auto) Neutrophils % (Manual) Band Neutrophils % Lymphocytes % (Manual) Monocytes % (Manual) Abs Neuts (Manual) Lymphocytes # (Manual) Monocytes # (Manual) Platelet Estimate Plt Morphology Comment RBC Morphology Acanthocytes (Spur) Smear Tech's Comments Smear Path Review PT INR APTT O2 Saturation ABG pH at Pt Temp ABG pH (Temp Correct) ABG pCO2 at Pt Temp ABG pCO2 (Temp Corrct ABG pO2 at Pt Temp ABG pO2 (Temp Correct ABG HCO3 ABG Base Excess (Actual) VBG pH 7.42 VBG pCO2 42 VBG pO2 41 VBG HCO3 28 H VBG O2 Saturation 61.0 VBG Base Excess 3.5 Sodium Potassium Chloride Carbon Dioxide Anion Gap BUN Creatinine Estim Creat Clear Calc Estimated GFR POC Glucose 72 71 Random Glucose Fasting Glucose Osmolality Lactic Acid Calcium Phosphorus Magnesium Transferrin Total Bilirubin Direct Bilirubin AST ALT Alkaline Phosphatase Ammonia Troponin I High Sens B-Natriuretic Peptide Total Protein Albumin Procalcitonin TSH Random Cortisol Urine Color Urine Appearance Urine pH Ur Specific [place] Urine Protein Urine Glucose (UA) Urine Ketones Urine Blood Urine Nitrite Ur Leukocyte Esterase Urine RBC Urine WBC Ur Squamous Epith Cells Urine Bacteria Urine Mucus Urine Osmolality Ur Random Sodium Ur Random Potassium Ur Random Chloride Stool Occult Blood Stool Leukocytes, Qual Random Vancomycin Digoxin C. difficile Tox B Gene COVID-19 (JESSY) COVID-19 Clin Com Influenza Type A (PCR) Influenza Type B (PCR) RSV RNA Qual (PCR) SARS-CoV-2 RNA (RT-PCR) Blood Type Antibody Screen Crossmatch 12/14/21 12/14/21 12/15/21 16:17 20:30 05:20 WBC 9.7 RBC 4.18 L Hgb 8.9 L Hct 30.6 L MCV 73.2 L MCH 21.3 L MCHC 29.1 L RDW 28.6 H Plt Count 562 H D MPV 9.8 Immature Gran % (Auto) 0.6 H Neut % (Auto) 82.8 H Lymph % (Auto) 7.3 L [place] % (Auto) 7.8 Eos % (Auto) 1.3 Baso % (Auto) 0.2 Lymph # (Auto) 0.7 L [place] # (Auto) 0.8 Eos # (Auto) 0.1 Baso # (Auto) 0.0 Abs Immat Gran (auto) 0.06 H Absolute Neuts (auto) 8.0 Absolute Nucleated RBC 0.000 Nucleated RBC % (auto) 0.0 Neutrophils % (Manual) Band Neutrophils % Lymphocytes % (Manual) Monocytes % (Manual) Abs Neuts (Manual) Lymphocytes # (Manual) Monocytes # (Manual) Platelet Estimate Plt Morphology Comment RBC Morphology Acanthocytes (Spur) Smear Tech's Comments Smear Path Review PT INR APTT O2 Saturation ABG pH at Pt Temp ABG pH (Temp Correct) ABG pCO2 at Pt Temp ABG pCO2 (Temp Corrct ABG pO2 at Pt Temp ABG pO2 (Temp Correct ABG HCO3 ABG Base Excess (Actual) VBG pH VBG pCO2 VBG pO2 VBG HCO3 VBG O2 Saturation VBG Base Excess Sodium Potassium Chloride Carbon Dioxide Anion Gap BUN Creatinine Estim Creat Clear Calc Estimated GFR POC Glucose 72 79 Random Glucose Fasting Glucose Osmolality Lactic Acid Calcium Phosphorus Magnesium Transferrin Total Bilirubin Direct Bilirubin AST ALT Alkaline Phosphatase Ammonia Troponin I High Sens B-Natriuretic Peptide Total Protein Albumin Procalcitonin TSH Random Cortisol Urine Color Urine Appearance Urine pH Ur Specific [place] Urine Protein Urine Glucose (UA) Urine Ketones Urine Blood Urine Nitrite Ur Leukocyte Esterase Urine RBC Urine WBC Ur Squamous Epith Cells Urine Bacteria Urine Mucus Urine Osmolality Ur Random Sodium Ur Random Potassium Ur Random Chloride Stool Occult Blood Stool Leukocytes, Qual Random Vancomycin Digoxin C. difficile Tox B Gene COVID-19 (JESSY) COVID-19 Clin Com Influenza Type A (PCR) Influenza Type B (PCR) RSV RNA Qual (PCR) SARS-CoV-2 RNA (RT-PCR) Blood Type Antibody Screen Crossmatch 12/15/21 12/15/21 12/15/21 05:20 05:20 05:20 WBC RBC Hgb Hct MCV MCH MCHC RDW Plt Count MPV Immature Gran % (Auto) Neut % (Auto) Lymph % (Auto) [place] % (Auto) Eos % (Auto) Baso % (Auto) Lymph # (Auto) [place] # (Auto) Eos # (Auto) Baso # (Auto) Abs Immat Gran (auto) Absolute Neuts (auto) Absolute Nucleated RBC Nucleated RBC % (auto) Neutrophils % (Manual) Band Neutrophils % Lymphocytes % (Manual) Monocytes % (Manual) Abs Neuts (Manual) Lymphocytes # (Manual) Monocytes # (Manual) Platelet Estimate Plt Morphology Comment RBC Morphology Acanthocytes (Spur) Smear Tech's Comments Smear Path Review PT 24.2 H INR 2.1 H APTT 39.5 H O2 Saturation ABG pH at Pt Temp ABG pH (Temp Correct) ABG pCO2 at Pt Temp ABG pCO2 (Temp Corrct ABG pO2 at Pt Temp ABG pO2 (Temp Correct ABG HCO3 ABG Base Excess (Actual) VBG pH VBG pCO2 VBG pO2 VBG HCO3 VBG O2 Saturation VBG Base Excess Sodium 143 Potassium 3.3 Chloride 109 H Carbon Dioxide 26 Anion Gap 11 L BUN 13 Creatinine 0.69 Estim Creat Clear Calc 122.2 Estimated GFR > 60 POC Glucose Random Glucose 78 Fasting Glucose Osmolality Lactic Acid Calcium 8.1 L Phosphorus 2.4 L Magnesium 2.2 Transferrin Total Bilirubin 0.7 Direct Bilirubin 0.4 AST 33 H ALT 31 Alkaline Phosphatase 65 Ammonia Troponin I High Sens B-Natriuretic Peptide 433 H Total Protein 5.2 L Albumin 2.7 L Procalcitonin TSH Random Cortisol Urine Color Urine Appearance Urine pH Ur Specific [place] Urine Protein Urine Glucose (UA) Urine Ketones Urine Blood Urine Nitrite Ur Leukocyte Esterase Urine RBC Urine WBC Ur Squamous Epith Cells Urine Bacteria Urine Mucus Urine Osmolality Ur Random Sodium Ur Random Potassium Ur Random Chloride Stool Occult Blood Stool Leukocytes, Qual Random Vancomycin Digoxin C. difficile Tox B Gene COVID-19 (JESSY) COVID-19 Clin Com Influenza Type A (PCR) Influenza Type B (PCR) RSV RNA Qual (PCR) SARS-CoV-2 RNA (RT-PCR) Blood Type Antibody Screen Crossmatch 12/15/21 12/15/21 12/15/21 07:28 09:41 11:24 WBC RBC Hgb Hct MCV MCH MCHC RDW Plt Count MPV Immature Gran % (Auto) Neut % (Auto) Lymph % (Auto) [place] % (Auto) Eos % (Auto) Baso % (Auto) Lymph # (Auto) [place] # (Auto) Eos # (Auto) Baso # (Auto) Abs Immat Gran (auto) Absolute Neuts (auto) Absolute Nucleated RBC Nucleated RBC % (auto) Neutrophils % (Manual) Band Neutrophils % Lymphocytes % (Manual) Monocytes % (Manual) Abs Neuts (Manual) Lymphocytes # (Manual) Monocytes # (Manual) Platelet Estimate Plt Morphology Comment RBC Morphology Acanthocytes (Spur) Smear Tech's Comments Smear Path Review PT INR APTT O2 Saturation ABG pH at Pt Temp ABG pH (Temp Correct) ABG pCO2 at Pt Temp ABG pCO2 (Temp Corrct ABG pO2 at Pt Temp ABG pO2 (Temp Correct ABG HCO3 ABG Base Excess (Actual) VBG pH 7.44 H VBG pCO2 34 VBG pO2 84 VBG HCO3 23 VBG O2 Saturation 96.0 VBG Base Excess 0.1 Sodium Potassium Chloride Carbon Dioxide Anion Gap BUN Creatinine Estim Creat Clear Calc Estimated GFR POC Glucose 82 86 Random Glucose Fasting Glucose Osmolality Lactic Acid Calcium Phosphorus Magnesium Transferrin Total Bilirubin Direct Bilirubin AST ALT Alkaline Phosphatase Ammonia Troponin I High Sens B-Natriuretic Peptide Total Protein Albumin Procalcitonin TSH Random Cortisol Urine Color Urine Appearance Urine pH Ur Specific [place] Urine Protein Urine Glucose (UA) Urine Ketones Urine Blood Urine Nitrite Ur Leukocyte Esterase Urine RBC Urine WBC Ur Squamous Epith Cells Urine Bacteria Urine Mucus Urine Osmolality Ur Random Sodium Ur Random Potassium Ur Random Chloride Stool Occult Blood Stool Leukocytes, Qual Random Vancomycin Digoxin C. difficile Tox B Gene COVID-19 (JESSY) COVID-19 Clin Com Influenza Type A (PCR) Influenza Type B (PCR) RSV RNA Qual (PCR) SARS-CoV-2 RNA (RT-PCR) Blood Type Antibody Screen Crossmatch 12/15/21 12/15/21 12/16/21 16:10 19:27 06:09 WBC 10.1 RBC 4.45 Hgb 9.4 L Hct 32.3 L MCV 72.6 L MCH 21.1 L MCHC 29.1 L RDW 29.2 H Plt Count 671 H MPV 9.6 Immature Gran % (Auto) 0.8 H Neut % (Auto) 81.8 H Lymph % (Auto) 8.0 L [place] % (Auto) 7.6 Eos % (Auto) 1.4 Baso % (Auto) 0.4 Lymph # (Auto) 0.8 L [place] # (Auto) 0.8 Eos # (Auto) 0.1 Baso # (Auto) 0.0 Abs Immat Gran (auto) 0.08 H Absolute Neuts (auto) 8.3 Absolute Nucleated RBC 0.000 Nucleated RBC % (auto) 0.0 Neutrophils % (Manual) Band Neutrophils % Lymphocytes % (Manual) Monocytes % (Manual) Abs Neuts (Manual) Lymphocytes # (Manual) Monocytes # (Manual) Platelet Estimate Plt Morphology Comment RBC Morphology Acanthocytes (Spur) Smear Tech's Comments Smear Path Review PT INR APTT O2 Saturation ABG pH at Pt Temp ABG pH (Temp Correct) ABG pCO2 at Pt Temp ABG pCO2 (Temp Corrct ABG pO2 at Pt Temp ABG pO2 (Temp Correct ABG HCO3 ABG Base Excess (Actual) VBG pH VBG pCO2 VBG pO2 VBG HCO3 VBG O2 Saturation VBG Base Excess Sodium Potassium Chloride Carbon Dioxide Anion Gap BUN Creatinine Estim Creat Clear Calc Estimated GFR POC Glucose 79 107 Random Glucose Fasting Glucose Osmolality Lactic Acid Calcium Phosphorus Magnesium Transferrin Total Bilirubin Direct Bilirubin AST ALT Alkaline Phosphatase Ammonia Troponin I High Sens B-Natriuretic Peptide Total Protein Albumin Procalcitonin TSH Random Cortisol Urine Color Urine Appearance Urine pH Ur Specific [place] Urine Protein Urine Glucose (UA) Urine Ketones Urine Blood Urine Nitrite Ur Leukocyte Esterase Urine RBC Urine WBC Ur Squamous Epith Cells Urine Bacteria Urine Mucus Urine Osmolality Ur Random Sodium Ur Random Potassium Ur Random Chloride Stool Occult Blood Stool Leukocytes, Qual Random Vancomycin Digoxin C. difficile Tox B Gene COVID-19 (JESSY) COVID-19 Clin Com Influenza Type A (PCR) Influenza Type B (PCR) RSV RNA Qual (PCR) SARS-CoV-2 RNA (RT-PCR) Blood Type Antibody Screen Crossmatch 12/16/21 12/16/21 12/16/21 06:09 06:09 06:09 WBC RBC Hgb Hct MCV MCH MCHC RDW Plt Count MPV Immature Gran % (Auto) Neut % (Auto) Lymph % (Auto) [place] % (Auto) Eos % (Auto) Baso % (Auto) Lymph # (Auto) [place] # (Auto) Eos # (Auto) Baso # (Auto) Abs Immat Gran (auto) Absolute Neuts (auto) Absolute Nucleated RBC Nucleated RBC % (auto) Neutrophils % (Manual) Band Neutrophils % Lymphocytes % (Manual) Monocytes % (Manual) Abs Neuts (Manual) Lymphocytes # (Manual) Monocytes # (Manual) Platelet Estimate Plt Morphology Comment RBC Morphology Acanthocytes (Spur) Smear Tech's Comments Smear Path Review PT 24.2 H INR 2.1 H APTT 41.5 H O2 Saturation ABG pH at Pt Temp ABG pH (Temp Correct) ABG pCO2 at Pt Temp ABG pCO2 (Temp Corrct ABG pO2 at Pt Temp ABG pO2 (Temp Correct ABG HCO3 ABG Base Excess (Actual) VBG pH VBG pCO2 VBG pO2 VBG HCO3 VBG O2 Saturation VBG Base Excess Sodium 147 H Potassium 3.6 Chloride 110 H Carbon Dioxide 28 Anion Gap 13 BUN 12 Creatinine 0.68 Estim Creat Clear Calc 122.1 Estimated GFR > 60 POC Glucose Random Glucose 118 H Fasting Glucose Osmolality Lactic Acid Calcium 8.3 L Phosphorus 2.5 L Magnesium 2.3 Transferrin Total Bilirubin 0.8 Direct Bilirubin 0.5 AST 34 H ALT 37 H Alkaline Phosphatase 70 Ammonia Troponin I High Sens B-Natriuretic Peptide 407 H Total Protein 5.6 L Albumin 2.9 L Procalcitonin TSH Random Cortisol Urine Color Urine Appearance Urine pH Ur Specific [place] Urine Protein Urine Glucose (UA) Urine Ketones Urine Blood Urine Nitrite Ur Leukocyte Esterase Urine RBC Urine WBC Ur Squamous Epith Cells Urine Bacteria Urine Mucus Urine Osmolality Ur Random Sodium Ur Random Potassium Ur Random Chloride Stool Occult Blood Stool Leukocytes, Qual Random Vancomycin Digoxin C. difficile Tox B Gene COVID-19 (JESSY) COVID-19 Clin Com Influenza Type A (PCR) Influenza Type B (PCR) RSV RNA Qual (PCR) SARS-CoV-2 RNA (RT-PCR) Blood Type Antibody Screen Crossmatch 12/16/21 12/16/21 12/16/21 06:15 07:13 10:58 WBC RBC Hgb Hct MCV MCH MCHC RDW Plt Count MPV Immature Gran % (Auto) Neut % (Auto) Lymph % (Auto) [place] % (Auto) Eos % (Auto) Baso % (Auto) Lymph # (Auto) [place] # (Auto) Eos # (Auto) Baso # (Auto) Abs Immat Gran (auto) Absolute Neuts (auto) Absolute Nucleated RBC Nucleated RBC % (auto) Neutrophils % (Manual) Band Neutrophils % Lymphocytes % (Manual) Monocytes % (Manual) Abs Neuts (Manual) Lymphocytes # (Manual) Monocytes # (Manual) Platelet Estimate Plt Morphology Comment RBC Morphology Acanthocytes (Spur) Smear Tech's Comments Smear Path Review PT INR APTT O2 Saturation ABG pH at Pt Temp ABG pH (Temp Correct) ABG pCO2 at Pt Temp ABG pCO2 (Temp Corrct ABG pO2 at Pt Temp ABG pO2 (Temp Correct ABG HCO3 ABG Base Excess (Actual) VBG pH 7.45 H VBG pCO2 36 VBG pO2 53 VBG HCO3 25 VBG O2 Saturation 83.0 VBG Base Excess 1.8 Sodium Potassium Chloride Carbon Dioxide Anion Gap BUN Creatinine Estim Creat Clear Calc Estimated GFR POC Glucose 117 H 223 H Random Glucose Fasting Glucose Osmolality Lactic Acid Calcium Phosphorus Magnesium Transferrin Total Bilirubin Direct Bilirubin AST ALT Alkaline Phosphatase Ammonia Troponin I High Sens B-Natriuretic Peptide Total Protein Albumin Procalcitonin TSH Random Cortisol Urine Color Urine Appearance Urine pH Ur Specific [place] Urine Protein Urine Glucose (UA) Urine Ketones Urine Blood Urine Nitrite Ur Leukocyte Esterase Urine RBC Urine WBC Ur Squamous Epith Cells Urine Bacteria Urine Mucus Urine Osmolality Ur Random Sodium Ur Random Potassium Ur Random Chloride Stool Occult Blood Stool Leukocytes, Qual Random Vancomycin Digoxin C. difficile Tox B Gene COVID-19 (JESSY) COVID-19 Clin Com Influenza Type A (PCR) Influenza Type B (PCR) RSV RNA Qual (PCR) SARS-CoV-2 RNA (RT-PCR) Blood Type Antibody Screen Crossmatch 12/16/21 12/16/21 12/17/21 15:45 20:11 04:47 WBC 11.8 H RBC 4.53 Hgb 9.6 L Hct 33.5 L MCV 74.0 L MCH 21.2 L MCHC 28.7 L RDW 29.8 H Plt Count 664 H MPV 9.2 L Immature Gran % (Auto) 0.5 H Neut % (Auto) 84.0 H Lymph % (Auto) 7.6 L [place] % (Auto) 6.4 Eos % (Auto) 1.2 Baso % (Auto) 0.3 Lymph # (Auto) 0.9 L [place] # (Auto) 0.8 Eos # (Auto) 0.1 Baso # (Auto) 0.0 Abs Immat Gran (auto) 0.06 H Absolute Neuts (auto) 9.9 H Absolute Nucleated RBC 0.000 Nucleated RBC % (auto) 0.0 Neutrophils % (Manual) Band Neutrophils % Lymphocytes % (Manual) Monocytes % (Manual) Abs Neuts (Manual) Lymphocytes # (Manual) Monocytes # (Manual) Platelet Estimate Plt Morphology Comment RBC Morphology Acanthocytes (Spur) Smear Tech's Comments Smear Path Review PT INR APTT O2 Saturation ABG pH at Pt Temp ABG pH (Temp Correct) ABG pCO2 at Pt Temp ABG pCO2 (Temp Corrct ABG pO2 at Pt Temp ABG pO2 (Temp Correct ABG HCO3 ABG Base Excess (Actual) VBG pH VBG pCO2 VBG pO2 VBG HCO3 VBG O2 Saturation VBG Base Excess Sodium Potassium Chloride Carbon Dioxide Anion Gap BUN Creatinine Estim Creat Clear Calc Estimated GFR POC Glucose 182 H 171 H Random Glucose Fasting Glucose Osmolality Lactic Acid Calcium Phosphorus Magnesium Transferrin Total Bilirubin Direct Bilirubin AST ALT Alkaline Phosphatase Ammonia Troponin I High Sens B-Natriuretic Peptide Total Protein Albumin Procalcitonin TSH Random Cortisol Urine Color Urine Appearance Urine pH Ur Specific [place] Urine Protein Urine Glucose (UA) Urine Ketones Urine Blood Urine Nitrite Ur Leukocyte Esterase Urine RBC Urine WBC Ur Squamous Epith Cells Urine Bacteria Urine Mucus Urine Osmolality Ur Random Sodium Ur Random Potassium Ur Random Chloride Stool Occult Blood Stool Leukocytes, Qual Random Vancomycin Digoxin C. difficile Tox B Gene COVID-19 (JESSY) COVID-19 Clin Com Influenza Type A (PCR) Influenza Type B (PCR) RSV RNA Qual (PCR) SARS-CoV-2 RNA (RT-PCR) Blood Type Antibody Screen Crossmatch 12/17/21 12/17/21 12/17/21 04:47 04:47 04:47 WBC RBC Hgb Hct MCV MCH MCHC RDW Plt Count MPV Immature Gran % (Auto) Neut % (Auto) Lymph % (Auto) [place] % (Auto) Eos % (Auto) Baso % (Auto) Lymph # (Auto) [place] # (Auto) Eos # (Auto) Baso # (Auto) Abs Immat Gran (auto) Absolute Neuts (auto) Absolute Nucleated RBC Nucleated RBC % (auto) Neutrophils % (Manual) Band Neutrophils % Lymphocytes % (Manual) Monocytes % (Manual) Abs Neuts (Manual) Lymphocytes # (Manual) Monocytes # (Manual) Platelet Estimate Plt Morphology Comment RBC Morphology Acanthocytes (Spur) Smear Tech's Comments Smear Path Review PT 27.6 H INR 2.4 H APTT 44.9 H O2 Saturation ABG pH at Pt Temp ABG pH (Temp Correct) ABG pCO2 at Pt Temp ABG pCO2 (Temp Corrct ABG pO2 at Pt Temp ABG pO2 (Temp Correct ABG HCO3 ABG Base Excess (Actual) VBG pH VBG pCO2 VBG pO2 VBG HCO3 VBG O2 Saturation VBG Base Excess Sodium Cancelled Potassium Cancelled Chloride Cancelled Carbon Dioxide Cancelled Anion Gap Cancelled BUN Cancelled Creatinine Cancelled Estim Creat Clear Calc Cancelled Estimated GFR Cancelled POC Glucose Random Glucose Cancelled Fasting Glucose Osmolality Lactic Acid Calcium Cancelled Phosphorus Magnesium Transferrin Total Bilirubin Direct Bilirubin AST ALT Alkaline Phosphatase Ammonia Troponin I High Sens B-Natriuretic Peptide 376 H Total Protein Albumin Procalcitonin TSH Random Cortisol Urine Color Urine Appearance Urine pH Ur Specific [place] Urine Protein Urine Glucose (UA) Urine Ketones Urine Blood Urine Nitrite Ur Leukocyte Esterase Urine RBC Urine WBC Ur Squamous Epith Cells Urine Bacteria Urine Mucus Urine Osmolality Ur Random Sodium Ur Random Potassium Ur Random Chloride Stool Occult Blood Stool Leukocytes, Qual Random Vancomycin Digoxin C. difficile Tox B Gene COVID-19 (JESSY) COVID-19 Clin Com Influenza Type A (PCR) Influenza Type B (PCR) RSV RNA Qual (PCR) SARS-CoV-2 RNA (RT-PCR) Blood Type Antibody Screen Crossmatch 12/17/21 12/17/21 12/17/21 04:48 04:52 04:57 WBC RBC Hgb Hct MCV MCH MCHC RDW Plt Count MPV Immature Gran % (Auto) Neut % (Auto) Lymph % (Auto) [place] % (Auto) Eos % (Auto) Baso % (Auto) Lymph # (Auto) [place] # (Auto) Eos # (Auto) Baso # (Auto) Abs Immat Gran (auto) Absolute Neuts (auto) Absolute Nucleated RBC Nucleated RBC % (auto) Neutrophils % (Manual) Band Neutrophils % Lymphocytes % (Manual) Monocytes % (Manual) Abs Neuts (Manual) Lymphocytes # (Manual) Monocytes # (Manual) Platelet Estimate Plt Morphology Comment RBC Morphology Acanthocytes (Spur) Smear Tech's Comments Smear Path Review PT INR APTT O2 Saturation 90.0 ABG pH at Pt Temp 7.49 H ABG pH (Temp Correct) ABG pCO2 at Pt Temp 38 ABG pCO2 (Temp Corrct ABG pO2 at Pt Temp 63 L ABG pO2 (Temp Correct ABG HCO3 29 H ABG Base Excess (Actual) 6.4 VBG pH 7.48 H VBG pCO2 37 VBG pO2 53 VBG HCO3 28 H VBG O2 Saturation 83.0 VBG Base Excess 4.4 Sodium 150 H Potassium 3.8 Chloride 113 H Carbon Dioxide 28 Anion Gap 13 BUN 9 Creatinine 0.66 Estim Creat Clear Calc 125.7 Estimated GFR > 60 POC Glucose Random Glucose 185 H Fasting Glucose Osmolality Lactic Acid Calcium 8.2 L Phosphorus 2.4 L Magnesium 2.2 Transferrin Total Bilirubin 0.7 Direct Bilirubin 0.4 AST 31 ALT 34 H Alkaline Phosphatase 69 Ammonia Troponin I High Sens B-Natriuretic Peptide Total Protein 5.7 L Albumin 2.9 L Procalcitonin TSH Random Cortisol Urine Color Urine Appearance Urine pH Ur Specific [place] Urine Protein Urine Glucose (UA) Urine Ketones Urine Blood Urine Nitrite Ur Leukocyte Esterase Urine RBC Urine WBC Ur Squamous Epith Cells Urine Bacteria Urine Mucus Urine Osmolality Ur Random Sodium Ur Random Potassium Ur Random Chloride Stool Occult Blood Stool Leukocytes, Qual Random Vancomycin Digoxin C. difficile Tox B Gene COVID-19 (JESSY) COVID-19 Clin Com Influenza Type A (PCR) Influenza Type B (PCR) RSV RNA Qual (PCR) SARS-CoV-2 RNA (RT-PCR) Blood Type Antibody Screen Crossmatch 12/17/21 12/17/21 12/17/21 07:16 10:47 16:22 WBC RBC Hgb Hct MCV MCH MCHC RDW Plt Count MPV Immature Gran % (Auto) Neut % (Auto) Lymph % (Auto) [place] % (Auto) Eos % (Auto) Baso % (Auto) Lymph # (Auto) [place] # (Auto) Eos # (Auto) Baso # (Auto) Abs Immat Gran (auto) Absolute Neuts (auto) Absolute Nucleated RBC Nucleated RBC % (auto) Neutrophils % (Manual) Band Neutrophils % Lymphocytes % (Manual) Monocytes % (Manual) Abs Neuts (Manual) Lymphocytes # (Manual) Monocytes # (Manual) Platelet Estimate Plt Morphology Comment RBC Morphology Acanthocytes (Spur) Smear Tech's Comments Smear Path Review PT INR APTT O2 Saturation ABG pH at Pt Temp ABG pH (Temp Correct) ABG pCO2 at Pt Temp ABG pCO2 (Temp Corrct ABG pO2 at Pt Temp ABG pO2 (Temp Correct ABG HCO3 ABG Base Excess (Actual) VBG pH VBG pCO2 VBG pO2 VBG HCO3 VBG O2 Saturation VBG Base Excess Sodium Potassium Chloride Carbon Dioxide Anion Gap BUN Creatinine Estim Creat Clear Calc Estimated GFR POC Glucose 178 H 274 H 171 H Random Glucose Fasting Glucose Osmolality Lactic Acid Calcium Phosphorus Magnesium Transferrin Total Bilirubin Direct Bilirubin AST ALT Alkaline Phosphatase Ammonia Troponin I High Sens B-Natriuretic Peptide Total Protein Albumin Procalcitonin TSH Random Cortisol Urine Color Urine Appearance Urine pH Ur Specific [place] Urine Protein Urine Glucose (UA) Urine Ketones Urine Blood Urine Nitrite Ur Leukocyte Esterase Urine RBC Urine WBC Ur Squamous Epith Cells Urine Bacteria Urine Mucus Urine Osmolality Ur Random Sodium Ur Random Potassium Ur Random Chloride Stool Occult Blood Stool Leukocytes, Qual Random Vancomycin Digoxin C. difficile Tox B Gene COVID-19 (JESSY) COVID-19 Clin Com Influenza Type A (PCR) Influenza Type B (PCR) RSV RNA Qual (PCR) SARS-CoV-2 RNA (RT-PCR) Blood Type Antibody Screen Crossmatch 12/17/21 12/18/21 12/18/21 20:01 00:14 03:58 WBC RBC Hgb Hct MCV MCH MCHC RDW Plt Count MPV Immature Gran % (Auto) Neut % (Auto) Lymph % (Auto) [place] % (Auto) Eos % (Auto) Baso % (Auto) Lymph # (Auto) [place] # (Auto) Eos # (Auto) Baso # (Auto) Abs Immat Gran (auto) Absolute Neuts (auto) Absolute Nucleated RBC Nucleated RBC % (auto) Neutrophils % (Manual) Band Neutrophils % Lymphocytes % (Manual) Monocytes % (Manual) Abs Neuts (Manual) Lymphocytes # (Manual) Monocytes # (Manual) Platelet Estimate Plt Morphology Comment RBC Morphology Acanthocytes (Spur) Smear Tech's Comments Smear Path Review PT INR APTT O2 Saturation ABG pH at Pt Temp ABG pH (Temp Correct) ABG pCO2 at Pt Temp ABG pCO2 (Temp Corrct ABG pO2 at Pt Temp ABG pO2 (Temp Correct ABG HCO3 ABG Base Excess (Actual) VBG pH 7.46 H VBG pCO2 47 VBG pO2 50 VBG HCO3 34 H VBG O2 Saturation 78.0 VBG Base Excess 9.6 Sodium 151 H Potassium 3.6 Chloride 114 H Carbon Dioxide 31 H Anion Gap 10 L BUN 8 L Creatinine 0.65 Estim Creat Clear Calc 127.3 Estimated GFR > 60 POC Glucose 197 H Random Glucose 168 H Fasting Glucose Osmolality Lactic Acid Calcium 8.3 L Phosphorus Magnesium Transferrin Total Bilirubin Direct Bilirubin AST ALT Alkaline Phosphatase Ammonia Troponin I High Sens B-Natriuretic Peptide Total Protein Albumin Procalcitonin TSH Random Cortisol Urine Color Urine Appearance Urine pH Ur Specific [place] Urine Protein Urine Glucose (UA) Urine Ketones Urine Blood Urine Nitrite Ur Leukocyte Esterase Urine RBC Urine WBC Ur Squamous Epith Cells Urine Bacteria Urine Mucus Urine Osmolality Ur Random Sodium Ur Random Potassium Ur Random Chloride Stool Occult Blood Stool Leukocytes, Qual Random Vancomycin Digoxin C. difficile Tox B Gene COVID-19 (JESSY) COVID-19 Clin Com Influenza Type A (PCR) Influenza Type B (PCR) RSV RNA Qual (PCR) SARS-CoV-2 RNA (RT-PCR) Blood Type Antibody Screen Crossmatch 12/18/21 12/18/21 12/18/21 04:44 04:46 05:58 WBC 10.4 RBC 4.42 Hgb 9.4 L Hct 33.3 L MCV 75.3 L MCH 21.3 L MCHC 28.2 L RDW 29.4 H Plt Count 593 H MPV 9.4 Immature Gran % (Auto) 0.6 H Neut % (Auto) 80.7 H Lymph % (Auto) 11.0 L [place] % (Auto) 5.4 Eos % (Auto) 1.7 Baso % (Auto) 0.6 Lymph # (Auto) 1.1 L [place] # (Auto) 0.6 Eos # (Auto) 0.2 Baso # (Auto) 0.1 Abs Immat Gran (auto) 0.06 H Absolute Neuts (auto) 8.4 H Absolute Nucleated RBC 0.000 Nucleated RBC % (auto) 0.0 Neutrophils % (Manual) Band Neutrophils % Lymphocytes % (Manual) Monocytes % (Manual) Abs Neuts (Manual) Lymphocytes # (Manual) Monocytes # (Manual) Platelet Estimate Plt Morphology Comment RBC Morphology Acanthocytes (Spur) Smear Tech's Comments Smear Path Review PT INR APTT O2 Saturation ABG pH at Pt Temp ABG pH (Temp Correct) ABG pCO2 at Pt Temp ABG pCO2 (Temp Corrct ABG pO2 at Pt Temp ABG pO2 (Temp Correct ABG HCO3 ABG Base Excess (Actual) VBG pH 7.43 VBG pCO2 55 VBG pO2 53 VBG HCO3 37 H VBG O2 Saturation 79.0 VBG Base Excess 11.4 Sodium 152 H Potassium 3.6 Chloride 111 H Carbon Dioxide 33 H Anion Gap 12 BUN 9 Creatinine 0.69 Estim Creat Clear Calc 119.9 Estimated GFR > 60 POC Glucose Random Glucose 198 H Fasting Glucose Osmolality Lactic Acid Calcium 8.2 L Phosphorus Magnesium Transferrin Total Bilirubin Direct Bilirubin AST ALT Alkaline Phosphatase Ammonia Troponin I High Sens B-Natriuretic Peptide Total Protein Albumin Procalcitonin TSH Random Cortisol Urine Color Urine Appearance Urine pH Ur Specific [place] Urine Protein Urine Glucose (UA) Urine Ketones Urine Blood Urine Nitrite Ur Leukocyte Esterase Urine RBC Urine WBC Ur Squamous Epith Cells Urine Bacteria Urine Mucus Urine Osmolality Ur Random Sodium Ur Random Potassium Ur Random Chloride Stool Occult Blood Stool Leukocytes, Qual Random Vancomycin Digoxin C. difficile Tox B Gene COVID-19 (JESSY) COVID-19 Clin Com Influenza Type A (PCR) Influenza Type B (PCR) RSV RNA Qual (PCR) SARS-CoV-2 RNA (RT-PCR) Blood Type Antibody Screen Crossmatch 12/18/21 12/18/21 12/18/21 05:58 05:58 05:58 WBC RBC Hgb Hct MCV MCH MCHC RDW Plt Count MPV Immature Gran % (Auto) Neut % (Auto) Lymph % (Auto) [place] % (Auto) Eos % (Auto) Baso % (Auto) Lymph # (Auto) [place] # (Auto) Eos # (Auto) Baso # (Auto) Abs Immat Gran (auto) Absolute Neuts (auto) Absolute Nucleated RBC Nucleated RBC % (auto) Neutrophils % (Manual) Band Neutrophils % Lymphocytes % (Manual) Monocytes % (Manual) Abs Neuts (Manual) Lymphocytes # (Manual) Monocytes # (Manual) Platelet Estimate Plt Morphology Comment RBC Morphology Acanthocytes (Spur) Smear Tech's Comments Smear Path Review PT 31.6 H INR 2.7 H APTT 46.4 H O2 Saturation ABG pH at Pt Temp ABG pH (Temp Correct) ABG pCO2 at Pt Temp ABG pCO2 (Temp Corrct ABG pO2 at Pt Temp ABG pO2 (Temp Correct ABG HCO3 ABG Base Excess (Actual) VBG pH VBG pCO2 VBG pO2 VBG HCO3 VBG O2 Saturation VBG Base Excess Sodium 151 H Potassium 3.6 Chloride 111 H Carbon Dioxide 33 H Anion Gap 11 L BUN 9 Creatinine 0.69 Estim Creat Clear Calc 119.6 Estimated GFR > 60 POC Glucose Random Glucose 187 H Fasting Glucose Osmolality Lactic Acid Calcium 8.1 L Phosphorus 3.0 Magnesium 2.1 Transferrin Total Bilirubin 0.7 Direct Bilirubin 0.4 AST 21 ALT 27 Alkaline Phosphatase 65 Ammonia Troponin I High Sens B-Natriuretic Peptide 185 H Total Protein 5.5 L Albumin 2.8 L Procalcitonin TSH Random Cortisol Urine Color Urine Appearance Urine pH Ur Specific [place] Urine Protein Urine Glucose (UA) Urine Ketones Urine Blood Urine Nitrite Ur Leukocyte Esterase Urine RBC Urine WBC Ur Squamous Epith Cells Urine Bacteria Urine Mucus Urine Osmolality Ur Random Sodium Ur Random Potassium Ur Random Chloride Stool Occult Blood Stool Leukocytes, Qual Random Vancomycin Digoxin C. difficile Tox B Gene COVID-19 (JESSY) COVID-19 Clin Com Influenza Type A (PCR) Influenza Type B (PCR) RSV RNA Qual (PCR) SARS-CoV-2 RNA (RT-PCR) Blood Type Antibody Screen Crossmatch 12/18/21 12/18/21 12/18/21 06:02 07:17 09:23 WBC RBC Hgb Hct MCV MCH MCHC RDW Plt Count MPV Immature Gran % (Auto) Neut % (Auto) Lymph % (Auto) [place] % (Auto) Eos % (Auto) Baso % (Auto) Lymph # (Auto) [place] # (Auto) Eos # (Auto) Baso # (Auto) Abs Immat Gran (auto) Absolute Neuts (auto) Absolute Nucleated RBC Nucleated RBC % (auto) Neutrophils % (Manual) Band Neutrophils % Lymphocytes % (Manual) Monocytes % (Manual) Abs Neuts (Manual) Lymphocytes # (Manual) Monocytes # (Manual) Platelet Estimate Plt Morphology Comment RBC Morphology Acanthocytes (Spur) Smear Tech's Comments Smear Path Review PT INR APTT O2 Saturation 90.0 ABG pH at Pt Temp 7.49 H ABG pH (Temp Correct) ABG pCO2 at Pt Temp 48 H ABG pCO2 (Temp Corrct ABG pO2 at Pt Temp 63 L ABG pO2 (Temp Correct ABG HCO3 37 H ABG Base Excess (Actual) 13.1 VBG pH 7.45 H VBG pCO2 54 VBG pO2 71 VBG HCO3 38 H VBG O2 Saturation 93.0 VBG Base Excess 12.2 Sodium Potassium Chloride Carbon Dioxide Anion Gap BUN Creatinine Estim Creat Clear Calc Estimated GFR POC Glucose 162 H Random Glucose Fasting Glucose Osmolality Lactic Acid Calcium Phosphorus Magnesium Transferrin Total Bilirubin Direct Bilirubin AST ALT Alkaline Phosphatase Ammonia Troponin I High Sens B-Natriuretic Peptide Total Protein Albumin Procalcitonin TSH Random Cortisol Urine Color Urine Appearance Urine pH Ur Specific [place] Urine Protein Urine Glucose (UA) Urine Ketones Urine Blood Urine Nitrite Ur Leukocyte Esterase Urine RBC Urine WBC Ur Squamous Epith Cells Urine Bacteria Urine Mucus Urine Osmolality Ur Random Sodium Ur Random Potassium Ur Random Chloride Stool Occult Blood Stool Leukocytes, Qual Random Vancomycin Digoxin C. difficile Tox B Gene COVID-19 (JESSY) COVID-19 Clin Com Influenza Type A (PCR) Influenza Type B (PCR) RSV RNA Qual (PCR) SARS-CoV-2 RNA (RT-PCR) Blood Type Antibody Screen Crossmatch 12/18/21 12/18/21 12/18/21 10:57 16:25 20:16 WBC RBC Hgb Hct MCV MCH MCHC RDW Plt Count MPV Immature Gran % (Auto) Neut % (Auto) Lymph % (Auto) [place] % (Auto) Eos % (Auto) Baso % (Auto) Lymph # (Auto) [place] # (Auto) Eos # (Auto) Baso # (Auto) Abs Immat Gran (auto) Absolute Neuts (auto) Absolute Nucleated RBC Nucleated RBC % (auto) Neutrophils % (Manual) Band Neutrophils % Lymphocytes % (Manual) Monocytes % (Manual) Abs Neuts (Manual) Lymphocytes # (Manual) Monocytes # (Manual) Platelet Estimate Plt Morphology Comment RBC Morphology Acanthocytes (Spur) Smear Tech's Comments Smear Path Review PT INR APTT O2 Saturation ABG pH at Pt Temp ABG pH (Temp Correct) ABG pCO2 at Pt Temp ABG pCO2 (Temp Corrct ABG pO2 at Pt Temp ABG pO2 (Temp Correct ABG HCO3 ABG Base Excess (Actual) VBG pH VBG pCO2 VBG pO2 VBG HCO3 VBG O2 Saturation VBG Base Excess Sodium Potassium Chloride Carbon Dioxide Anion Gap BUN Creatinine Estim Creat Clear Calc Estimated GFR POC Glucose 217 H 208 H 153 H Random Glucose Fasting Glucose Osmolality Lactic Acid Calcium Phosphorus Magnesium Transferrin Total Bilirubin Direct Bilirubin AST ALT Alkaline Phosphatase Ammonia Troponin I High Sens B-Natriuretic Peptide Total Protein Albumin Procalcitonin TSH Random Cortisol Urine Color Urine Appearance Urine pH Ur Specific [place] Urine Protein Urine Glucose (UA) Urine Ketones Urine Blood Urine Nitrite Ur Leukocyte Esterase Urine RBC Urine WBC Ur Squamous Epith Cells Urine Bacteria Urine Mucus Urine Osmolality Ur Random Sodium Ur Random Potassium Ur Random Chloride Stool Occult Blood Stool Leukocytes, Qual Random Vancomycin Digoxin C. difficile Tox B Gene COVID-19 (JESSY) COVID-19 Clin Com Influenza Type A (PCR) Influenza Type B (PCR) RSV RNA Qual (PCR) SARS-CoV-2 RNA (RT-PCR) Blood Type Antibody Screen Crossmatch 12/19/21 12/19/21 12/19/21 05:53 05:53 05:53 WBC Cancelled 11.0 H RBC Cancelled 4.26 Hgb Cancelled 9.0 L Hct Cancelled 32.4 L MCV Cancelled 76.1 L MCH Cancelled 21.1 L MCHC Cancelled 27.8 L RDW Cancelled 29.3 H Plt Count Cancelled 488 H MPV Cancelled 9.4 Immature Gran % (Auto) 0.6 H Neut % (Auto) 79.9 H Lymph % (Auto) 11.5 L [place] % (Auto) 4.4 Eos % (Auto) 3.1 Baso % (Auto) 0.5 Lymph # (Auto) 1.3 [place] # (Auto) 0.5 Eos # (Auto) 0.3 Baso # (Auto) 0.1 Abs Immat Gran (auto) 0.07 H Absolute Neuts (auto) 8.8 H Absolute Nucleated RBC Cancelled 0.000 Nucleated RBC % (auto) Cancelled 0.0 Neutrophils % (Manual) Band Neutrophils % Lymphocytes % (Manual) Monocytes % (Manual) Abs Neuts (Manual) Lymphocytes # (Manual) Monocytes # (Manual) Platelet Estimate Plt Morphology Comment RBC Morphology Acanthocytes (Spur) Smear Tech's Comments Smear Path Review PT INR APTT O2 Saturation ABG pH at Pt Temp ABG pH (Temp Correct) ABG pCO2 at Pt Temp ABG pCO2 (Temp Corrct ABG pO2 at Pt Temp ABG pO2 (Temp Correct ABG HCO3 ABG Base Excess (Actual) VBG pH VBG pCO2 VBG pO2 VBG HCO3 VBG O2 Saturation VBG Base Excess Sodium Cancelled Potassium Cancelled Chloride Cancelled Carbon Dioxide Cancelled Anion Gap Cancelled BUN Cancelled Creatinine Cancelled Estim Creat Clear Calc Cancelled Estimated GFR Cancelled POC Glucose Random Glucose Cancelled Fasting Glucose Osmolality Lactic Acid Calcium Cancelled Phosphorus Magnesium Transferrin Total Bilirubin Direct Bilirubin AST ALT Alkaline Phosphatase Ammonia Troponin I High Sens B-Natriuretic Peptide Total Protein Albumin Procalcitonin TSH Random Cortisol Urine Color Urine Appearance Urine pH Ur Specific [place] Urine Protein Urine Glucose (UA) Urine Ketones Urine Blood Urine Nitrite Ur Leukocyte Esterase Urine RBC Urine WBC Ur Squamous Epith Cells Urine Bacteria Urine Mucus Urine Osmolality Ur Random Sodium Ur Random Potassium Ur Random Chloride Stool Occult Blood Stool Leukocytes, Qual Random Vancomycin Digoxin C. difficile Tox B Gene COVID-19 (JESSY) COVID-19 Clin Com Influenza Type A (PCR) Influenza Type B (PCR) RSV RNA Qual (PCR) SARS-CoV-2 RNA (RT-PCR) Blood Type Antibody Screen Crossmatch 12/19/21 12/19/21 12/19/21 05:53 05:53 05:53 WBC RBC Hgb Hct MCV MCH MCHC RDW Plt Count MPV Immature Gran % (Auto) Neut % (Auto) Lymph % (Auto) [place] % (Auto) Eos % (Auto) Baso % (Auto) Lymph # (Auto) [place] # (Auto) Eos # (Auto) Baso # (Auto) Abs Immat Gran (auto) Absolute Neuts (auto) Absolute Nucleated RBC Nucleated RBC % (auto) Neutrophils % (Manual) Band Neutrophils % Lymphocytes % (Manual) Monocytes % (Manual) Abs Neuts (Manual) Lymphocytes # (Manual) Monocytes # (Manual) Platelet Estimate Plt Morphology Comment RBC Morphology Acanthocytes (Spur) Smear Tech's Comments Smear Path Review PT 26.6 H INR 2.3 H APTT 41.3 H O2 Saturation ABG pH at Pt Temp ABG pH (Temp Correct) ABG pCO2 at Pt Temp ABG pCO2 (Temp Corrct ABG pO2 at Pt Temp ABG pO2 (Temp Correct ABG HCO3 ABG Base Excess (Actual) VBG pH VBG pCO2 VBG pO2 VBG HCO3 VBG O2 Saturation VBG Base Excess Sodium 147 H Potassium 3.4 Chloride 106 Carbon Dioxide 36 H Anion Gap 8 L BUN 9 Creatinine 0.61 Estim Creat Clear Calc 134.8 Estimated GFR > 60 POC Glucose Random Glucose 174 H Fasting Glucose Osmolality Lactic Acid Calcium 8.2 L Phosphorus 2.7 Magnesium 2.1 Transferrin Total Bilirubin 0.7 Direct Bilirubin 0.4 AST 21 ALT 24 Alkaline Phosphatase 60 Ammonia Troponin I High Sens B-Natriuretic Peptide 112 H Total Protein 5.2 L Albumin 2.7 L Procalcitonin TSH Random Cortisol Urine Color Urine Appearance Urine pH Ur Specific [place] Urine Protein Urine Glucose (UA) Urine Ketones Urine Blood Urine Nitrite Ur Leukocyte Esterase Urine RBC Urine WBC Ur Squamous Epith Cells Urine Bacteria Urine Mucus Urine Osmolality Ur Random Sodium Ur Random Potassium Ur Random Chloride Stool Occult Blood Stool Leukocytes, Qual Random Vancomycin Digoxin C. difficile Tox B Gene COVID-19 (JESSY) COVID-19 Clin Com Influenza Type A (PCR) Influenza Type B (PCR) RSV RNA Qual (PCR) SARS-CoV-2 RNA (RT-PCR) Blood Type Antibody Screen Crossmatch 12/19/21 12/19/21 12/19/21 06:00 07:14 10:52 WBC RBC Hgb Hct MCV MCH MCHC RDW Plt Count MPV Immature Gran % (Auto) Neut % (Auto) Lymph % (Auto) [place] % (Auto) Eos % (Auto) Baso % (Auto) Lymph # (Auto) [place] # (Auto) Eos # (Auto) Baso # (Auto) Abs Immat Gran (auto) Absolute Neuts (auto) Absolute Nucleated RBC Nucleated RBC % (auto) Neutrophils % (Manual) Band Neutrophils % Lymphocytes % (Manual) Monocytes % (Manual) Abs Neuts (Manual) Lymphocytes # (Manual) Monocytes # (Manual) Platelet Estimate Plt Morphology Comment RBC Morphology Acanthocytes (Spur) Smear Tech's Comments Smear Path Review PT INR APTT O2 Saturation ABG pH at Pt Temp ABG pH (Temp Correct) ABG pCO2 at Pt Temp ABG pCO2 (Temp Corrct ABG pO2 at Pt Temp ABG pO2 (Temp Correct ABG HCO3 ABG Base Excess (Actual) VBG pH 7.45 H VBG pCO2 58 VBG pO2 62 VBG HCO3 41 H VBG O2 Saturation 88.0 VBG Base Excess 15.2 Sodium Potassium Chloride Carbon Dioxide Anion Gap BUN Creatinine Estim Creat Clear Calc Estimated GFR POC Glucose 154 H 163 H Random Glucose Fasting Glucose Osmolality Lactic Acid Calcium Phosphorus Magnesium Transferrin Total Bilirubin Direct Bilirubin AST ALT Alkaline Phosphatase Ammonia Troponin I High Sens B-Natriuretic Peptide Total Protein Albumin Procalcitonin TSH Random Cortisol Urine Color Urine Appearance Urine pH Ur Specific [place] Urine Protein Urine Glucose (UA) Urine Ketones Urine Blood Urine Nitrite Ur Leukocyte Esterase Urine RBC Urine WBC Ur Squamous Epith Cells Urine Bacteria Urine Mucus Urine Osmolality Ur Random Sodium Ur Random Potassium Ur Random Chloride Stool Occult Blood Stool Leukocytes, Qual Random Vancomycin Digoxin C. difficile Tox B Gene COVID-19 (JESSY) COVID-19 Clin Com Influenza Type A (PCR) Influenza Type B (PCR) RSV RNA Qual (PCR) SARS-CoV-2 RNA (RT-PCR) Blood Type Antibody Screen Crossmatch 12/19/21 12/19/21 12/20/21 15:57 19:48 06:10 WBC 11.8 H RBC 4.54 Hgb 9.7 L Hct 34.1 L MCV 75.1 L MCH 21.4 L MCHC 28.4 L RDW 28.9 H Plt Count 317 D MPV 10.0 Immature Gran % (Auto) 0.5 H Neut % (Auto) 78.8 H Lymph % (Auto) 11.7 L [place] % (Auto) 4.9 Eos % (Auto) 3.6 Baso % (Auto) 0.5 Lymph # (Auto) 1.4 [place] # (Auto) 0.6 Eos # (Auto) 0.4 Baso # (Auto) 0.1 Abs Immat Gran (auto) 0.06 H Absolute Neuts (auto) 9.3 H Absolute Nucleated RBC 0.000 Nucleated RBC % (auto) 0.0 Neutrophils % (Manual) Band Neutrophils % Lymphocytes % (Manual) Monocytes % (Manual) Abs Neuts (Manual) Lymphocytes # (Manual) Monocytes # (Manual) Platelet Estimate Plt Morphology Comment RBC Morphology Acanthocytes (Spur) Smear Tech's Comments Smear Path Review PT INR APTT O2 Saturation ABG pH at Pt Temp ABG pH (Temp Correct) ABG pCO2 at Pt Temp ABG pCO2 (Temp Corrct ABG pO2 at Pt Temp ABG pO2 (Temp Correct ABG HCO3 ABG Base Excess (Actual) VBG pH VBG pCO2 VBG pO2 VBG HCO3 VBG O2 Saturation VBG Base Excess Sodium Potassium Chloride Carbon Dioxide Anion Gap BUN Creatinine Estim Creat Clear Calc Estimated GFR POC Glucose 146 H 243 H Random Glucose Fasting Glucose Osmolality Lactic Acid Calcium Phosphorus Magnesium Transferrin Total Bilirubin Direct Bilirubin AST ALT Alkaline Phosphatase Ammonia Troponin I High Sens B-Natriuretic Peptide Total Protein Albumin Procalcitonin TSH Random Cortisol Urine Color Urine Appearance Urine pH Ur Specific [place] Urine Protein Urine Glucose (UA) Urine Ketones Urine Blood Urine Nitrite Ur Leukocyte Esterase Urine RBC Urine WBC Ur Squamous Epith Cells Urine Bacteria Urine Mucus Urine Osmolality Ur Random Sodium Ur Random Potassium Ur Random Chloride Stool Occult Blood Stool Leukocytes, Qual Random Vancomycin Digoxin C. difficile Tox B Gene COVID-19 (JESSY) COVID-19 Clin Com Influenza Type A (PCR) Influenza Type B (PCR) RSV RNA Qual (PCR) SARS-CoV-2 RNA (RT-PCR) Blood Type Antibody Screen Crossmatch 12/20/21 12/20/21 12/20/21 06:10 06:10 06:10 WBC RBC Hgb Hct MCV MCH MCHC RDW Plt Count MPV Immature Gran % (Auto) Neut % (Auto) Lymph % (Auto) [place] % (Auto) Eos % (Auto) Baso % (Auto) Lymph # (Auto) [place] # (Auto) Eos # (Auto) Baso # (Auto) Abs Immat Gran (auto) Absolute Neuts (auto) Absolute Nucleated RBC Nucleated RBC % (auto) Neutrophils % (Manual) Band Neutrophils % Lymphocytes % (Manual) Monocytes % (Manual) Abs Neuts (Manual) Lymphocytes # (Manual) Monocytes # (Manual) Platelet Estimate Plt Morphology Comment RBC Morphology Acanthocytes (Spur) Smear Tech's Comments Smear Path Review PT 24.9 H INR 2.2 H APTT 38.2 H O2 Saturation ABG pH at Pt Temp ABG pH (Temp Correct) ABG pCO2 at Pt Temp ABG pCO2 (Temp Corrct ABG pO2 at Pt Temp ABG pO2 (Temp Correct ABG HCO3 ABG Base Excess (Actual) VBG pH VBG pCO2 VBG pO2 VBG HCO3 VBG O2 Saturation VBG Base Excess Sodium 142 Potassium 3.3 Chloride 99 Carbon Dioxide 37 H Anion Gap 9 L BUN 10 Creatinine 0.55 Estim Creat Clear Calc 149.5 Estimated GFR > 60 POC Glucose Random Glucose 169 H Fasting Glucose Osmolality Lactic Acid Calcium 8.4 Phosphorus 2.9 Magnesium Transferrin Total Bilirubin 0.8 Direct Bilirubin 0.4 AST 16 ALT 20 Alkaline Phosphatase 64 Ammonia Troponin I High Sens B-Natriuretic Peptide 124 H Total Protein 5.1 L Albumin 2.6 L Procalcitonin TSH Random Cortisol Urine Color Urine Appearance Urine pH Ur Specific [place] Urine Protein Urine Glucose (UA) Urine Ketones Urine Blood Urine Nitrite Ur Leukocyte Esterase Urine RBC Urine WBC Ur Squamous Epith Cells Urine Bacteria Urine Mucus Urine Osmolality Ur Random Sodium Ur Random Potassium Ur Random Chloride Stool Occult Blood Stool Leukocytes, Qual Random Vancomycin Digoxin C. difficile Tox B Gene COVID-19 (JESSY) COVID-19 Clin Com Influenza Type A (PCR) Influenza Type B (PCR) RSV RNA Qual (PCR) SARS-CoV-2 RNA (RT-PCR) Blood Type Antibody Screen Crossmatch 12/20/21 12/20/21 12/20/21 06:14 06:18 07:14 WBC RBC Hgb Hct MCV MCH MCHC RDW Plt Count MPV Immature Gran % (Auto) Neut % (Auto) Lymph % (Auto) [place] % (Auto) Eos % (Auto) Baso % (Auto) Lymph # (Auto) [place] # (Auto) Eos # (Auto) Baso # (Auto) Abs Immat Gran (auto) Absolute Neuts (auto) Absolute Nucleated RBC Nucleated RBC % (auto) Neutrophils % (Manual) Band Neutrophils % Lymphocytes % (Manual) Monocytes % (Manual) Abs Neuts (Manual) Lymphocytes # (Manual) Monocytes # (Manual) Platelet Estimate Plt Morphology Comment RBC Morphology Acanthocytes (Spur) Smear Tech's Comments Smear Path Review PT INR APTT O2 Saturation ABG pH at Pt Temp ABG pH (Temp Correct) ABG pCO2 at Pt Temp ABG pCO2 (Temp Corrct ABG pO2 at Pt Temp ABG pO2 (Temp Correct ABG HCO3 ABG Base Excess (Actual) VBG pH 7.49 H VBG pCO2 53 VBG pO2 56 VBG HCO3 41 H VBG O2 Saturation 85.0 VBG Base Excess 15.5 Sodium Potassium Chloride Carbon Dioxide Anion Gap BUN Creatinine Estim Creat Clear Calc Estimated GFR POC Glucose 172 H Random Glucose Fasting Glucose Osmolality Lactic Acid Calcium Phosphorus Magnesium Transferrin Total Bilirubin Direct Bilirubin AST ALT Alkaline Phosphatase Ammonia Troponin I High Sens B-Natriuretic Peptide Total Protein Albumin Procalcitonin TSH Random Cortisol Urine Color Urine Appearance Urine pH Ur Specific [place] Urine Protein Urine Glucose (UA) Urine Ketones Urine Blood Urine Nitrite Ur Leukocyte Esterase Urine RBC Urine WBC Ur Squamous Epith Cells Urine Bacteria Urine Mucus Urine Osmolality Ur Random Sodium Ur Random Potassium Ur Random Chloride Stool Occult Blood Stool Leukocytes, Qual Random Vancomycin Digoxin 0.6 L C. difficile Tox B Gene COVID-19 (JESSY) COVID-19 Clin Com Influenza Type A (PCR) Influenza Type B (PCR) RSV RNA Qual (PCR) SARS-CoV-2 RNA (RT-PCR) Blood Type Antibody Screen Crossmatch 12/20/21 12/20/21 12/20/21 10:51 10:56 12:21 WBC RBC Hgb Hct MCV MCH MCHC RDW Plt Count MPV Immature Gran % (Auto) Neut % (Auto) Lymph % (Auto) [place] % (Auto) Eos % (Auto) Baso % (Auto) Lymph # (Auto) [place] # (Auto) Eos # (Auto) Baso # (Auto) Abs Immat Gran (auto) Absolute Neuts (auto) Absolute Nucleated RBC Nucleated RBC % (auto) Neutrophils % (Manual) Band Neutrophils % Lymphocytes % (Manual) Monocytes % (Manual) Abs Neuts (Manual) Lymphocytes # (Manual) Monocytes # (Manual) Platelet Estimate Plt Morphology Comment RBC Morphology Acanthocytes (Spur) Smear Tech's Comments Smear Path Review PT INR APTT O2 Saturation ABG pH at Pt Temp ABG pH (Temp Correct) ABG pCO2 at Pt Temp ABG pCO2 (Temp Corrct ABG pO2 at Pt Temp ABG pO2 (Temp Correct ABG HCO3 ABG Base Excess (Actual) VBG pH 7.47 H VBG pCO2 59 VBG pO2 47 VBG HCO3 44 H VBG O2 Saturation 75.0 VBG Base Excess 17.8 Sodium Potassium Chloride Carbon Dioxide Anion Gap BUN Creatinine Estim Creat Clear Calc Estimated GFR POC Glucose 152 H 152 H Random Glucose Fasting Glucose Osmolality Lactic Acid Calcium Phosphorus Magnesium Transferrin Total Bilirubin Direct Bilirubin AST ALT Alkaline Phosphatase Ammonia Troponin I High Sens B-Natriuretic Peptide Total Protein Albumin Procalcitonin TSH Random Cortisol Urine Color Urine Appearance Urine pH Ur Specific [place] Urine Protein Urine Glucose (UA) Urine Ketones Urine Blood Urine Nitrite Ur Leukocyte Esterase Urine RBC Urine WBC Ur Squamous Epith Cells Urine Bacteria Urine Mucus Urine Osmolality Ur Random Sodium Ur Random Potassium Ur Random Chloride Stool Occult Blood Stool Leukocytes, Qual Random Vancomycin Digoxin C. difficile Tox B Gene COVID-19 (JESSY) COVID-19 Clin Com Influenza Type A (PCR) Influenza Type B (PCR) RSV RNA Qual (PCR) SARS-CoV-2 RNA (RT-PCR) Blood Type Antibody Screen Crossmatch 12/20/21 12/20/21 12/21/21 16:02 19:28 07:18 WBC RBC Hgb Hct MCV MCH MCHC RDW Plt Count MPV Immature Gran % (Auto) Neut % (Auto) Lymph % (Auto) [place] % (Auto) Eos % (Auto) Baso % (Auto) Lymph # (Auto) [place] # (Auto) Eos # (Auto) Baso # (Auto) Abs Immat Gran (auto) Absolute Neuts (auto) Absolute Nucleated RBC Nucleated RBC % (auto) Neutrophils % (Manual) Band Neutrophils % Lymphocytes % (Manual) Monocytes % (Manual) Abs Neuts (Manual) Lymphocytes # (Manual) Monocytes # (Manual) Platelet Estimate Plt Morphology Comment RBC Morphology Acanthocytes (Spur) Smear Tech's Comments Smear Path Review PT INR APTT O2 Saturation ABG pH at Pt Temp ABG pH (Temp Correct) ABG pCO2 at Pt Temp ABG pCO2 (Temp Corrct ABG pO2 at Pt Temp ABG pO2 (Temp Correct ABG HCO3 ABG Base Excess (Actual) VBG pH VBG pCO2 VBG pO2 VBG HCO3 VBG O2 Saturation VBG Base Excess Sodium Potassium Chloride Carbon Dioxide Anion Gap BUN Creatinine Estim Creat Clear Calc Estimated GFR POC Glucose 111 145 H 140 H Random Glucose Fasting Glucose Osmolality Lactic Acid Calcium Phosphorus Magnesium Transferrin Total Bilirubin Direct Bilirubin AST ALT Alkaline Phosphatase Ammonia Troponin I High Sens B-Natriuretic Peptide Total Protein Albumin Procalcitonin TSH Random Cortisol Urine Color Urine Appearance Urine pH Ur Specific [place] Urine Protein Urine Glucose (UA) Urine Ketones Urine Blood Urine Nitrite Ur Leukocyte Esterase Urine RBC Urine WBC Ur Squamous Epith Cells Urine Bacteria Urine Mucus Urine Osmolality Ur Random Sodium Ur Random Potassium Ur Random Chloride Stool Occult Blood Stool Leukocytes, Qual Random Vancomycin Digoxin C. difficile Tox B Gene COVID-19 (JESSY) COVID-19 Clin Com Influenza Type A (PCR) Influenza Type B (PCR) RSV RNA Qual (PCR) SARS-CoV-2 RNA (RT-PCR) Blood Type Antibody Screen Crossmatch 12/21/21 12/21/21 12/21/21 10:52 16:11 16:54 WBC RBC Hgb Hct MCV MCH MCHC RDW Plt Count MPV Immature Gran % (Auto) Neut % (Auto) Lymph % (Auto) [place] % (Auto) Eos % (Auto) Baso % (Auto) Lymph # (Auto) [place] # (Auto) Eos # (Auto) Baso # (Auto) Abs Immat Gran (auto) Absolute Neuts (auto) Absolute Nucleated RBC Nucleated RBC % (auto) Neutrophils % (Manual) Band Neutrophils % Lymphocytes % (Manual) Monocytes % (Manual) Abs Neuts (Manual) Lymphocytes # (Manual) Monocytes # (Manual) Platelet Estimate Plt Morphology Comment RBC Morphology Acanthocytes (Spur) Smear Tech's Comments Smear Path Review PT INR APTT O2 Saturation ABG pH at Pt Temp ABG pH (Temp Correct) ABG pCO2 at Pt Temp ABG pCO2 (Temp Corrct ABG pO2 at Pt Temp ABG pO2 (Temp Correct ABG HCO3 ABG Base Excess (Actual) VBG pH VBG pCO2 VBG pO2 VBG HCO3 VBG O2 Saturation VBG Base Excess Sodium Potassium Chloride Carbon Dioxide Anion Gap BUN Creatinine Estim Creat Clear Calc Estimated GFR POC Glucose 277 H 153 H Random Glucose Fasting Glucose Osmolality Lactic Acid Calcium Phosphorus Magnesium Transferrin Total Bilirubin Direct Bilirubin AST ALT Alkaline Phosphatase Ammonia Troponin I High Sens B-Natriuretic Peptide Total Protein Albumin Procalcitonin TSH Random Cortisol Urine Color Urine Appearance Urine pH Ur Specific [place] Urine Protein Urine Glucose (UA) Urine Ketones Urine Blood Urine Nitrite Ur Leukocyte Esterase Urine RBC Urine WBC Ur Squamous Epith Cells Urine Bacteria Urine Mucus Urine Osmolality Ur Random Sodium Ur Random Potassium Ur Random Chloride Stool Occult Blood Stool Leukocytes, Qual Random Vancomycin Digoxin C. difficile Tox B Gene COVID-19 (JESSY) Negative COVID-19 Clin Com See Note Influenza Type A (PCR) Influenza Type B (PCR) RSV RNA Qual (PCR) SARS-CoV-2 RNA (RT-PCR) Blood Type Antibody Screen Crossmatch 0212/22/21 12/22/21 19:20 06:17 07:03 WBC RBC Hgb Hct MCV MCH MCHC RDW Plt Count MPV Immature Gran % (Auto) Neut % (Auto) Lymph % (Auto) [place] % (Auto) Eos % (Auto) Baso % (Auto) Lymph # (Auto) [place] # (Auto) Eos # (Auto) Baso # (Auto) Abs Immat Gran (auto) Absolute Neuts (auto) Absolute Nucleated RBC Nucleated RBC % (auto) Neutrophils % (Manual) Band Neutrophils % Lymphocytes % (Manual) Monocytes % (Manual) Abs Neuts (Manual) Lymphocytes # (Manual) Monocytes # (Manual) Platelet Estimate Plt Morphology Comment RBC Morphology Acanthocytes (Spur) Smear Tech's Comments Smear Path Review PT INR APTT O2 Saturation ABG pH at Pt Temp ABG pH (Temp Correct) ABG pCO2 at Pt Temp ABG pCO2 (Temp Corrct ABG pO2 at Pt Temp ABG pO2 (Temp Correct ABG HCO3 ABG Base Excess (Actual) VBG pH VBG pCO2 VBG pO2 VBG HCO3 VBG O2 Saturation VBG Base Excess Sodium 135 Potassium 4.1 D Chloride 95 L Carbon Dioxide 32 H Anion Gap 12 BUN 8 L Creatinine 0.53 Estim Creat Clear Calc 155.5 Estimated GFR > 60 POC Glucose 139 H 118 H Random Glucose Fasting Glucose Osmolality Lactic Acid Calcium Phosphorus Magnesium Transferrin Total Bilirubin Direct Bilirubin AST ALT Alkaline Phosphatase Ammonia Troponin I High Sens B-Natriuretic Peptide Total Protein Albumin Procalcitonin TSH Random Cortisol Urine Color Urine Appearance Urine pH Ur Specific [place] Urine Protein Urine Glucose (UA) Urine Ketones Urine Blood Urine Nitrite Ur Leukocyte Esterase Urine RBC Urine WBC Ur Squamous Epith Cells Urine Bacteria Urine Mucus Urine Osmolality Ur Random Sodium Ur Random Potassium Ur Random Chloride Stool Occult Blood Stool Leukocytes, Qual Random Vancomycin Digoxin C. difficile Tox B Gene COVID-19 (JESSY) COVID-19 Clin Com Influenza Type A (PCR) Influenza Type B (PCR) RSV RNA Qual (PCR) SARS-CoV-2 RNA (RT-PCR) Blood Type Antibody Screen Crossmatch 12/22/21 12/22/21 12/22/21 10:59 15:50 19:45 WBC RBC Hgb Hct MCV MCH MCHC RDW Plt Count MPV Immature Gran % (Auto) Neut % (Auto) Lymph % (Auto) [place] % (Auto) Eos % (Auto) Baso % (Auto) Lymph # (Auto) [place] # (Auto) Eos # (Auto) Baso # (Auto) Abs Immat Gran (auto) Absolute Neuts (auto) Absolute Nucleated RBC Nucleated RBC % (auto) Neutrophils % (Manual) Band Neutrophils % Lymphocytes % (Manual) Monocytes % (Manual) Abs Neuts (Manual) Lymphocytes # (Manual) Monocytes # (Manual) Platelet Estimate Plt Morphology Comment RBC Morphology Acanthocytes (Spur) Smear Tech's Comments Smear Path Review PT INR APTT O2 Saturation ABG pH at Pt Temp ABG pH (Temp Correct) ABG pCO2 at Pt Temp ABG pCO2 (Temp Corrct ABG pO2 at Pt Temp ABG pO2 (Temp Correct ABG HCO3 ABG Base Excess (Actual) VBG pH 7.42 VBG pCO2 65 VBG pO2 61 VBG HCO3 43 H VBG O2 Saturation 87.0 VBG Base Excess 16.1 Sodium Potassium Chloride Carbon Dioxide Anion Gap BUN Creatinine Estim Creat Clear Calc Estimated GFR POC Glucose 133 H 136 H Random Glucose Fasting Glucose Osmolality Lactic Acid Calcium Phosphorus Magnesium Transferrin Total Bilirubin Direct Bilirubin AST ALT Alkaline Phosphatase Ammonia Troponin I High Sens B-Natriuretic Peptide Total Protein Albumin Procalcitonin TSH Random Cortisol Urine Color Urine Appearance Urine pH Ur Specific [place] Urine Protein Urine Glucose (UA) Urine Ketones Urine Blood Urine Nitrite Ur Leukocyte Esterase Urine RBC Urine WBC Ur Squamous Epith Cells Urine Bacteria Urine Mucus Urine Osmolality Ur Random Sodium Ur Random Potassium Ur Random Chloride Stool Occult Blood Stool Leukocytes, Qual Random Vancomycin Digoxin C. difficile Tox B Gene COVID-19 (JESSY) COVID-19 Clin Com Influenza Type A (PCR) Influenza Type B (PCR) RSV RNA Qual (PCR) SARS-CoV-2 RNA (RT-PCR) Blood Type Antibody Screen Crossmatch 12/22/21 12/23/21 12/23/21 19:50 06:57 11:02 WBC RBC Hgb Hct MCV MCH MCHC RDW Plt Count MPV Immature Gran % (Auto) Neut % (Auto) Lymph % (Auto) [place] % (Auto) Eos % (Auto) Baso % (Auto) Lymph # (Auto) [place] # (Auto) Eos # (Auto) Baso # (Auto) Abs Immat Gran (auto) Absolute Neuts (auto) Absolute Nucleated RBC Nucleated RBC % (auto) Neutrophils % (Manual) Band Neutrophils % Lymphocytes % (Manual) Monocytes % (Manual) Abs Neuts (Manual) Lymphocytes # (Manual) Monocytes # (Manual) Platelet Estimate Plt Morphology Comment RBC Morphology Acanthocytes (Spur) Smear Tech's Comments Smear Path Review PT INR APTT O2 Saturation ABG pH at Pt Temp ABG pH (Temp Correct) ABG pCO2 at Pt Temp ABG pCO2 (Temp Corrct ABG pO2 at Pt Temp ABG pO2 (Temp Correct ABG HCO3 ABG Base Excess (Actual) VBG pH VBG pCO2 VBG pO2 VBG HCO3 VBG O2 Saturation VBG Base Excess Sodium Potassium Chloride Carbon Dioxide Anion Gap BUN Creatinine Estim Creat Clear Calc Estimated GFR POC Glucose 138 H 120 H 182 H Random Glucose Fasting Glucose Osmolality Lactic Acid Calcium Phosphorus Magnesium Transferrin Total Bilirubin Direct Bilirubin AST ALT Alkaline Phosphatase Ammonia Troponin I High Sens B-Natriuretic Peptide Total Protein Albumin Procalcitonin TSH Random Cortisol Urine Color Urine Appearance Urine pH Ur Specific [place] Urine Protein Urine Glucose (UA) Urine Ketones Urine Blood Urine Nitrite Ur Leukocyte Esterase Urine RBC Urine WBC Ur Squamous Epith Cells Urine Bacteria Urine Mucus Urine Osmolality Ur Random Sodium Ur Random Potassium Ur Random Chloride Stool Occult Blood Stool Leukocytes, Qual Random Vancomycin Digoxin C. difficile Tox B Gene COVID-19 (JESSY) COVID-19 Clin Com Influenza Type A (PCR) Influenza Type B (PCR) RSV RNA Qual (PCR) SARS-CoV-2 RNA (RT-PCR) Blood Type Antibody Screen Crossmatch 12/23/21 12/23/21 12/24/21 16:13 19:40 07:14 WBC RBC Hgb Hct MCV MCH MCHC RDW Plt Count MPV Immature Gran % (Auto) Neut % (Auto) Lymph % (Auto) [place] % (Auto) Eos % (Auto) Baso % (Auto) Lymph # (Auto) [place] # (Auto) Eos # (Auto) Baso # (Auto) Abs Immat Gran (auto) Absolute Neuts (auto) Absolute Nucleated RBC Nucleated RBC % (auto) Neutrophils % (Manual) Band Neutrophils % Lymphocytes % (Manual) Monocytes % (Manual) Abs Neuts (Manual) Lymphocytes # (Manual) Monocytes # (Manual) Platelet Estimate Plt Morphology Comment RBC Morphology Acanthocytes (Spur) Smear Tech's Comments Smear Path Review PT INR APTT O2 Saturation ABG pH at Pt Temp ABG pH (Temp Correct) ABG pCO2 at Pt Temp ABG pCO2 (Temp Corrct ABG pO2 at Pt Temp ABG pO2 (Temp Correct ABG HCO3 ABG Base Excess (Actual) VBG pH VBG pCO2 VBG pO2 VBG HCO3 VBG O2 Saturation VBG Base Excess Sodium Potassium Chloride Carbon Dioxide Anion Gap BUN Creatinine Estim Creat Clear Calc Estimated GFR POC Glucose 117 H 119 H 124 H Random Glucose Fasting Glucose Osmolality Lactic Acid Calcium Phosphorus Magnesium Transferrin Total Bilirubin Direct Bilirubin AST ALT Alkaline Phosphatase Ammonia Troponin I High Sens B-Natriuretic Peptide Total Protein Albumin Procalcitonin TSH Random Cortisol Urine Color Urine Appearance Urine pH Ur Specific [place] Urine Protein Urine Glucose (UA) Urine Ketones Urine Blood Urine Nitrite Ur Leukocyte Esterase Urine RBC Urine WBC Ur Squamous Epith Cells Urine Bacteria Urine Mucus Urine Osmolality Ur Random Sodium Ur Random Potassium Ur Random Chloride Stool Occult Blood Stool Leukocytes, Qual Random Vancomycin Digoxin C. difficile Tox B Gene COVID-19 (JESSY) COVID-19 Clin Com Influenza Type A (PCR) Influenza Type B (PCR) RSV RNA Qual (PCR) SARS-CoV-2 RNA (RT-PCR) Blood Type Antibody Screen Crossmatch 12/24/21 12/24/21 12/24/21 11:40 16:49 20:24 WBC RBC Hgb Hct MCV MCH MCHC RDW Plt Count MPV Immature Gran % (Auto) Neut % (Auto) Lymph % (Auto) [place] % (Auto) Eos % (Auto) Baso % (Auto) Lymph # (Auto) [place] # (Auto) Eos # (Auto) Baso # (Auto) Abs Immat Gran (auto) Absolute Neuts (auto) Absolute Nucleated RBC Nucleated RBC % (auto) Neutrophils % (Manual) Band Neutrophils % Lymphocytes % (Manual) Monocytes % (Manual) Abs Neuts (Manual) Lymphocytes # (Manual) Monocytes # (Manual) Platelet Estimate Plt Morphology Comment RBC Morphology Acanthocytes (Spur) Smear Tech's Comments Smear Path Review PT INR APTT O2 Saturation ABG pH at Pt Temp ABG pH (Temp Correct) ABG pCO2 at Pt Temp ABG pCO2 (Temp Corrct ABG pO2 at Pt Temp ABG pO2 (Temp Correct ABG HCO3 ABG Base Excess (Actual) VBG pH VBG pCO2 VBG pO2 VBG HCO3 VBG O2 Saturation VBG Base Excess Sodium Potassium Chloride Carbon Dioxide Anion Gap BUN Creatinine Estim Creat Clear Calc Estimated GFR POC Glucose 133 H 135 H 112 Random Glucose Fasting Glucose Osmolality Lactic Acid Calcium Phosphorus Magnesium Transferrin Total Bilirubin Direct Bilirubin AST ALT Alkaline Phosphatase Ammonia Troponin I High Sens B-Natriuretic Peptide Total Protein Albumin Procalcitonin TSH Random Cortisol Urine Color Urine Appearance Urine pH Ur Specific [place] Urine Protein Urine Glucose (UA) Urine Ketones Urine Blood Urine Nitrite Ur Leukocyte Esterase Urine RBC Urine WBC Ur Squamous Epith Cells Urine Bacteria Urine Mucus Urine Osmolality Ur Random Sodium Ur Random Potassium Ur Random Chloride Stool Occult Blood Stool Leukocytes, Qual Random Vancomycin Digoxin C. difficile Tox B Gene COVID-19 (JESSY) COVID-19 Clin Com Influenza Type A (PCR) Influenza Type B (PCR) RSV RNA Qual (PCR) SARS-CoV-2 RNA (RT-PCR) Blood Type Antibody Screen Crossmatch 12/25/21 12/25/21 12/25/21 06:40 06:40 07:30 WBC 11.6 H RBC 4.05 L Hgb 9.0 L Hct 30.8 L MCV 76.0 L MCH 22.2 L MCHC 29.2 L RDW 28.9 H Plt Count 245 MPV 10.0 Immature Gran % (Auto) 2.0 H Neut % (Auto) 76.6 H Lymph % (Auto) 9.8 L [place] % (Auto) 9.6 Eos % (Auto) 1.6 Baso % (Auto) 0.4 Lymph # (Auto) 1.1 L [place] # (Auto) 1.1 Eos # (Auto) 0.2 Baso # (Auto) 0.1 Abs Immat Gran (auto) 0.23 H Absolute Neuts (auto) 8.9 H Absolute Nucleated RBC 0.020 H Nucleated RBC % (auto) 0.2 Neutrophils % (Manual) Band Neutrophils % Lymphocytes % (Manual) Monocytes % (Manual) Abs Neuts (Manual) Lymphocytes # (Manual) Monocytes # (Manual) Platelet Estimate Plt Morphology Comment RBC Morphology Acanthocytes (Spur) Smear Tech's Comments Smear Path Review PT INR APTT O2 Saturation ABG pH at Pt Temp ABG pH (Temp Correct) ABG pCO2 at Pt Temp ABG pCO2 (Temp Corrct ABG pO2 at Pt Temp ABG pO2 (Temp Correct ABG HCO3 ABG Base Excess (Actual) VBG pH VBG pCO2 VBG pO2 VBG HCO3 VBG O2 Saturation VBG Base Excess Sodium 137 Potassium 3.6 Chloride 95 L Carbon Dioxide 35 H Anion Gap 11 L BUN 6 L Creatinine 0.50 Estim Creat Clear Calc 164.6 Estimated GFR > 60 POC Glucose 133 H Random Glucose Fasting Glucose 129 H Osmolality Lactic Acid Calcium 8.0 L Phosphorus Magnesium Transferrin Total Bilirubin 0.8 Direct Bilirubin AST 14 ALT 11 Alkaline Phosphatase 85 D Ammonia Troponin I High Sens B-Natriuretic Peptide Total Protein 5.2 L Albumin 2.6 L Procalcitonin TSH Random Cortisol Urine Color Urine Appearance Urine pH Ur Specific [place] Urine Protein Urine Glucose (UA) Urine Ketones Urine Blood Urine Nitrite Ur Leukocyte Esterase Urine RBC Urine WBC Ur Squamous Epith Cells Urine Bacteria Urine Mucus Urine Osmolality Ur Random Sodium Ur Random Potassium Ur Random Chloride Stool Occult Blood Stool Leukocytes, Qual Random Vancomycin Digoxin C. difficile Tox B Gene COVID-19 (JESSY) COVID-19 Clin Com Influenza Type A (PCR) Influenza Type B (PCR) RSV RNA Qual (PCR) SARS-CoV-2 RNA (RT-PCR) Blood Type Antibody Screen Crossmatch 12/25/21 12/25/21 12/25/21 12:47 15:55 19:57 WBC RBC Hgb Hct MCV MCH MCHC RDW Plt Count MPV Immature Gran % (Auto) Neut % (Auto) Lymph % (Auto) [place] % (Auto) Eos % (Auto) Baso % (Auto) Lymph # (Auto) [place] # (Auto) Eos # (Auto) Baso # (Auto) Abs Immat Gran (auto) Absolute Neuts (auto) Absolute Nucleated RBC Nucleated RBC % (auto) Neutrophils % (Manual) Band Neutrophils % Lymphocytes % (Manual) Monocytes % (Manual) Abs Neuts (Manual) Lymphocytes # (Manual) Monocytes # (Manual) Platelet Estimate Plt Morphology Comment RBC Morphology Acanthocytes (Spur) Smear Tech's Comments Smear Path Review PT INR APTT O2 Saturation ABG pH at Pt Temp ABG pH (Temp Correct) ABG pCO2 at Pt Temp ABG pCO2 (Temp Corrct ABG pO2 at Pt Temp ABG pO2 (Temp Correct ABG HCO3 ABG Base Excess (Actual) VBG pH VBG pCO2 VBG pO2 VBG HCO3 VBG O2 Saturation VBG Base Excess Sodium Potassium Chloride Carbon Dioxide Anion Gap BUN Creatinine Estim Creat Clear Calc Estimated GFR POC Glucose 119 H 144 H 151 H Random Glucose Fasting Glucose Osmolality Lactic Acid Calcium Phosphorus Magnesium Transferrin Total Bilirubin Direct Bilirubin AST ALT Alkaline Phosphatase Ammonia Troponin I High Sens B-Natriuretic Peptide Total Protein Albumin Procalcitonin TSH Random Cortisol Urine Color Urine Appearance Urine pH Ur Specific [place] Urine Protein Urine Glucose (UA) Urine Ketones Urine Blood Urine Nitrite Ur Leukocyte Esterase Urine RBC Urine WBC Ur Squamous Epith Cells Urine Bacteria Urine Mucus Urine Osmolality Ur Random Sodium Ur Random Potassium Ur Random Chloride Stool Occult Blood Stool Leukocytes, Qual Random Vancomycin Digoxin C. difficile Tox B Gene COVID-19 (JESSY) COVID-19 Clin Com Influenza Type A (PCR) Influenza Type B (PCR) RSV RNA Qual (PCR) SARS-CoV-2 RNA (RT-PCR) Blood Type Antibody Screen Crossmatch 12/26/21 12/26/21 12/26/21 06:05 07:21 11:24 WBC RBC Hgb Hct MCV MCH MCHC RDW Plt Count MPV Immature Gran % (Auto) Neut % (Auto) Lymph % (Auto) [place] % (Auto) Eos % (Auto) Baso % (Auto) Lymph # (Auto) [place] # (Auto) Eos # (Auto) Baso # (Auto) Abs Immat Gran (auto) Absolute Neuts (auto) Absolute Nucleated RBC Nucleated RBC % (auto) Neutrophils % (Manual) Band Neutrophils % Lymphocytes % (Manual) Monocytes % (Manual) Abs Neuts (Manual) Lymphocytes # (Manual) Monocytes # (Manual) Platelet Estimate Plt Morphology Comment RBC Morphology Acanthocytes (Spur) Smear Tech's Comments Smear Path Review PT INR APTT O2 Saturation ABG pH at Pt Temp ABG pH (Temp Correct) ABG pCO2 at Pt Temp ABG pCO2 (Temp Corrct ABG pO2 at Pt Temp ABG pO2 (Temp Correct ABG HCO3 ABG Base Excess (Actual) VBG pH VBG pCO2 VBG pO2 VBG HCO3 VBG O2 Saturation VBG Base Excess Sodium 138 Potassium 3.9 Chloride 95 L Carbon Dioxide 36 H Anion Gap 11 L BUN 6 L Creatinine 0.51 Estim Creat Clear Calc 161.3 Estimated GFR > 60 POC Glucose 138 H 140 H Random Glucose Fasting Glucose 141 H Osmolality Lactic Acid Calcium 8.3 L Phosphorus Magnesium Transferrin Total Bilirubin 0.9 Direct Bilirubin AST 12 ALT 9 Alkaline Phosphatase 86 Ammonia Troponin I High Sens B-Natriuretic Peptide Total Protein 5.3 L Albumin 2.7 L Procalcitonin TSH Random Cortisol Urine Color Urine Appearance Urine pH Ur Specific [place] Urine Protein Urine Glucose (UA) Urine Ketones Urine Blood Urine Nitrite Ur Leukocyte Esterase Urine RBC Urine WBC Ur Squamous Epith Cells Urine Bacteria Urine Mucus Urine Osmolality Ur Random Sodium Ur Random Potassium Ur Random Chloride Stool Occult Blood Stool Leukocytes, Qual Random Vancomycin Digoxin C. difficile Tox B Gene COVID-19 (JESSY) COVID-19 Clin Com Influenza Type A (PCR) Influenza Type B (PCR) RSV RNA Qual (PCR) SARS-CoV-2 RNA (RT-PCR) Blood Type Antibody Screen Crossmatch 12/26/21 12/26/21 12/27/21 15:43 19:58 06:51 WBC RBC Hgb Hct MCV MCH MCHC RDW Plt Count MPV Immature Gran % (Auto) Neut % (Auto) Lymph % (Auto) [place] % (Auto) Eos % (Auto) Baso % (Auto) Lymph # (Auto) [place] # (Auto) Eos # (Auto) Baso # (Auto) Abs Immat Gran (auto) Absolute Neuts (auto) Absolute Nucleated RBC Nucleated RBC % (auto) Neutrophils % (Manual) Band Neutrophils % Lymphocytes % (Manual) Monocytes % (Manual) Abs Neuts (Manual) Lymphocytes # (Manual) Monocytes # (Manual) Platelet Estimate Plt Morphology Comment RBC Morphology Acanthocytes (Spur) Smear Tech's Comments Smear Path Review PT INR APTT O2 Saturation ABG pH at Pt Temp ABG pH (Temp Correct) ABG pCO2 at Pt Temp ABG pCO2 (Temp Corrct ABG pO2 at Pt Temp ABG pO2 (Temp Correct ABG HCO3 ABG Base Excess (Actual) VBG pH VBG pCO2 VBG pO2 VBG HCO3 VBG O2 Saturation VBG Base Excess Sodium 142 Potassium 4.0 Chloride 97 Carbon Dioxide 37 H Anion Gap 12 BUN 7 L Creatinine 0.50 Estim Creat Clear Calc 164.6 Estimated GFR > 60 POC Glucose 139 H 116 H Random Glucose Fasting Glucose 123 H Osmolality Lactic Acid Calcium 8.5 Phosphorus Magnesium Transferrin Total Bilirubin 0.8 Direct Bilirubin AST 12 ALT 9 Alkaline Phosphatase 86 Ammonia Troponin I High Sens B-Natriuretic Peptide Total Protein 5.4 L Albumin 2.6 L Procalcitonin TSH Random Cortisol Urine Color Urine Appearance Urine pH Ur Specific [place] Urine Protein Urine Glucose (UA) Urine Ketones Urine Blood Urine Nitrite Ur Leukocyte Esterase Urine RBC Urine WBC Ur Squamous Epith Cells Urine Bacteria Urine Mucus Urine Osmolality Ur Random Sodium Ur Random Potassium Ur Random Chloride Stool Occult Blood Stool Leukocytes, Qual Random Vancomycin Digoxin C. difficile Tox B Gene COVID-19 (JESSY) COVID-19 Clin Com Influenza Type A (PCR) Influenza Type B (PCR) RSV RNA Qual (PCR) SARS-CoV-2 RNA (RT-PCR) Blood Type Antibody Screen Crossmatch 12/27/21 12/27/21 12/27/21 06:51 07:05 11:10 WBC 9.8 RBC 3.99 L Hgb 8.9 L Hct 31.4 L MCV 78.7 L MCH 22.3 L MCHC 28.3 L RDW 28.9 H Plt Count 248 MPV 10.3 Immature Gran % (Auto) 2.6 H Neut % (Auto) 75.0 H Lymph % (Auto) 8.9 L [place] % (Auto) 10.2 Eos % (Auto) 2.9 Baso % (Auto) 0.4 Lymph # (Auto) 0.9 L [place] # (Auto) 1.0 Eos # (Auto) 0.3 Baso # (Auto) 0.0 Abs Immat Gran (auto) 0.25 H Absolute Neuts (auto) 7.3 Absolute Nucleated RBC 0.020 H Nucleated RBC % (auto) 0.2 Neutrophils % (Manual) Band Neutrophils % Lymphocytes % (Manual) Monocytes % (Manual) Abs Neuts (Manual) Lymphocytes # (Manual) Monocytes # (Manual) Platelet Estimate Plt Morphology Comment RBC Morphology Acanthocytes (Spur) Smear Tech's Comments Smear Path Review PT INR APTT O2 Saturation ABG pH at Pt Temp ABG pH (Temp Correct) ABG pCO2 at Pt Temp ABG pCO2 (Temp Corrct ABG pO2 at Pt Temp ABG pO2 (Temp Correct ABG HCO3 ABG Base Excess (Actual) VBG pH VBG pCO2 VBG pO2 VBG HCO3 VBG O2 Saturation VBG Base Excess Sodium Potassium Chloride Carbon Dioxide Anion Gap BUN Creatinine Estim Creat Clear Calc Estimated GFR POC Glucose 120 H 154 H Random Glucose Fasting Glucose Osmolality Lactic Acid Calcium Phosphorus Magnesium Transferrin Total Bilirubin Direct Bilirubin AST ALT Alkaline Phosphatase Ammonia Troponin I High Sens B-Natriuretic Peptide Total Protein Albumin Procalcitonin TSH Random Cortisol Urine Color Urine Appearance Urine pH Ur Specific [place] Urine Protein Urine Glucose (UA) Urine Ketones Urine Blood Urine Nitrite Ur Leukocyte Esterase Urine RBC Urine WBC Ur Squamous Epith Cells Urine Bacteria Urine Mucus Urine Osmolality Ur Random Sodium Ur Random Potassium Ur Random Chloride Stool Occult Blood Stool Leukocytes, Qual Random Vancomycin Digoxin C. difficile Tox B Gene COVID-19 (JESSY) COVID-19 Clin Com Influenza Type A (PCR) Influenza Type B (PCR) RSV RNA Qual (PCR) SARS-CoV-2 RNA (RT-PCR) Blood Type Antibody Screen Crossmatch 12/27/21 12/27/21 12/28/21 15:58 20:00 06:09 WBC 12.4 H RBC 4.36 Hgb 9.7 L Hct 34.3 L MCV 78.7 L MCH 22.2 L MCHC 28.3 L RDW 28.9 H Plt Count 256 MPV 10.0 Immature Gran % (Auto) 2.4 H Neut % (Auto) 78.4 H Lymph % (Auto) 7.9 L [place] % (Auto) 9.0 Eos % (Auto) 1.9 Baso % (Auto) 0.4 Lymph # (Auto) 1.0 L [place] # (Auto) 1.1 Eos # (Auto) 0.2 Baso # (Auto) 0.1 Abs Immat Gran (auto) 0.30 H Absolute Neuts (auto) 9.7 H Absolute Nucleated RBC 0.020 H Nucleated RBC % (auto) 0.2 Neutrophils % (Manual) Band Neutrophils % Lymphocytes % (Manual) Monocytes % (Manual) Abs Neuts (Manual) Lymphocytes # (Manual) Monocytes # (Manual) Platelet Estimate Plt Morphology Comment RBC Morphology Acanthocytes (Spur) Smear Tech's Comments Smear Path Review PT INR APTT O2 Saturation ABG pH at Pt Temp ABG pH (Temp Correct) ABG pCO2 at Pt Temp ABG pCO2 (Temp Corrct ABG pO2 at Pt Temp ABG pO2 (Temp Correct ABG HCO3 ABG Base Excess (Actual) VBG pH VBG pCO2 VBG pO2 VBG HCO3 VBG O2 Saturation VBG Base Excess Sodium Potassium Chloride Carbon Dioxide Anion Gap BUN Creatinine Estim Creat Clear Calc Estimated GFR POC Glucose 214 H 131 H Random Glucose Fasting Glucose Osmolality Lactic Acid Calcium Phosphorus Magnesium Transferrin Total Bilirubin Direct Bilirubin AST ALT Alkaline Phosphatase Ammonia Troponin I High Sens B-Natriuretic Peptide Total Protein Albumin Procalcitonin TSH Random Cortisol Urine Color Urine Appearance Urine pH Ur Specific [place] Urine Protein Urine Glucose (UA) Urine Ketones Urine Blood Urine Nitrite Ur Leukocyte Esterase Urine RBC Urine WBC Ur Squamous Epith Cells Urine Bacteria Urine Mucus Urine Osmolality Ur Random Sodium Ur Random Potassium Ur Random Chloride Stool Occult Blood Stool Leukocytes, Qual Random Vancomycin Digoxin C. difficile Tox B Gene COVID-19 (JESSY) COVID-19 Clin Com Influenza Type A (PCR) Influenza Type B (PCR) RSV RNA Qual (PCR) SARS-CoV-2 RNA (RT-PCR) Blood Type Antibody Screen Crossmatch 12/28/21 12/28/21 12/28/21 06:09 07:17 10:48 WBC RBC Hgb Hct MCV MCH MCHC RDW Plt Count MPV Immature Gran % (Auto) Neut % (Auto) Lymph % (Auto) [place] % (Auto) Eos % (Auto) Baso % (Auto) Lymph # (Auto) [place] # (Auto) Eos # (Auto) Baso # (Auto) Abs Immat Gran (auto) Absolute Neuts (auto) Absolute Nucleated RBC Nucleated RBC % (auto) Neutrophils % (Manual) Band Neutrophils % Lymphocytes % (Manual) Monocytes % (Manual) Abs Neuts (Manual) Lymphocytes # (Manual) Monocytes # (Manual) Platelet Estimate Plt Morphology Comment RBC Morphology Acanthocytes (Spur) Smear Tech's Comments Smear Path Review PT INR APTT O2 Saturation ABG pH at Pt Temp ABG pH (Temp Correct) ABG pCO2 at Pt Temp ABG pCO2 (Temp Corrct ABG pO2 at Pt Temp ABG pO2 (Temp Correct ABG HCO3 ABG Base Excess (Actual) VBG pH VBG pCO2 VBG pO2 VBG HCO3 VBG O2 Saturation VBG Base Excess Sodium 143 Potassium 4.2 Chloride 99 Carbon Dioxide 37 H Anion Gap 11 L BUN 11 D Creatinine 0.52 Estim Creat Clear Calc 158.3 Estimated GFR > 60 POC Glucose 134 H 119 H Random Glucose Fasting Glucose 129 H Osmolality Lactic Acid Calcium 8.2 L Phosphorus Magnesium Transferrin Total Bilirubin 0.7 Direct Bilirubin AST 14 ALT 9 Alkaline Phosphatase 92 Ammonia Troponin I High Sens B-Natriuretic Peptide Total Protein 5.3 L Albumin 2.5 L Procalcitonin TSH Random Cortisol Urine Color Urine Appearance Urine pH Ur Specific [place] Urine Protein Urine Glucose (UA) Urine Ketones Urine Blood Urine Nitrite Ur Leukocyte Esterase Urine RBC Urine WBC Ur Squamous Epith Cells Urine Bacteria Urine Mucus Urine Osmolality Ur Random Sodium Ur Random Potassium Ur Random Chloride Stool Occult Blood Stool Leukocytes, Qual Random Vancomycin Digoxin C. difficile Tox B Gene COVID-19 (JESSY) COVID-19 Clin Com Influenza Type A (PCR) Influenza Type B (PCR) RSV RNA Qual (PCR) SARS-CoV-2 RNA (RT-PCR) Blood Type Antibody Screen Crossmatch 12/28/21 12/28/21 12/29/21 16:57 19:49 06:01 WBC 12.9 H RBC 3.72 L Hgb 8.4 L Hct 29.7 L MCV 79.8 L MCH 22.6 L MCHC 28.3 L RDW 28.5 H Plt Count 281 MPV 10.4 Immature Gran % (Auto) 1.9 H Neut % (Auto) 79.7 H Lymph % (Auto) 8.8 L [place] % (Auto) 7.4 Eos % (Auto) 1.9 Baso % (Auto) 0.3 Lymph # (Auto) 1.1 L [place] # (Auto) 1.0 Eos # (Auto) 0.3 Baso # (Auto) 0.0 Abs Immat Gran (auto) 0.24 H Absolute Neuts (auto) 10.2 H Absolute Nucleated RBC 0.000 Nucleated RBC % (auto) 0.0 Neutrophils % (Manual) Band Neutrophils % Lymphocytes % (Manual) Monocytes % (Manual) Abs Neuts (Manual) Lymphocytes # (Manual) Monocytes # (Manual) Platelet Estimate Plt Morphology Comment RBC Morphology Acanthocytes (Spur) Smear Tech's Comments Smear Path Review PT INR APTT O2 Saturation ABG pH at Pt Temp ABG pH (Temp Correct) ABG pCO2 at Pt Temp ABG pCO2 (Temp Corrct ABG pO2 at Pt Temp ABG pO2 (Temp Correct ABG HCO3 ABG Base Excess (Actual) VBG pH VBG pCO2 VBG pO2 VBG HCO3 VBG O2 Saturation VBG Base Excess Sodium Potassium Chloride Carbon Dioxide Anion Gap BUN Creatinine Estim Creat Clear Calc Estimated GFR POC Glucose 125 H 121 H Random Glucose Fasting Glucose Osmolality Lactic Acid Calcium Phosphorus Magnesium Transferrin Total Bilirubin Direct Bilirubin AST ALT Alkaline Phosphatase Ammonia Troponin I High Sens B-Natriuretic Peptide Total Protein Albumin Procalcitonin TSH Random Cortisol Urine Color Urine Appearance Urine pH Ur Specific [place] Urine Protein Urine Glucose (UA) Urine Ketones Urine Blood Urine Nitrite Ur Leukocyte Esterase Urine RBC Urine WBC Ur Squamous Epith Cells Urine Bacteria Urine Mucus Urine Osmolality Ur Random Sodium Ur Random Potassium Ur Random Chloride Stool Occult Blood Stool Leukocytes, Qual Random Vancomycin Digoxin C. difficile Tox B Gene COVID-19 (JESSY) COVID-19 Clin Com Influenza Type A (PCR) Influenza Type B (PCR) RSV RNA Qual (PCR) SARS-CoV-2 RNA (RT-PCR) Blood Type Antibody Screen Crossmatch 12/29/21 12/29/21 12/29/21 06:01 06:55 10:53 WBC RBC Hgb Hct MCV MCH MCHC RDW Plt Count MPV Immature Gran % (Auto) Neut % (Auto) Lymph % (Auto) [place] % (Auto) Eos % (Auto) Baso % (Auto) Lymph # (Auto) [place] # (Auto) Eos # (Auto) Baso # (Auto) Abs Immat Gran (auto) Absolute Neuts (auto) Absolute Nucleated RBC Nucleated RBC % (auto) Neutrophils % (Manual) Band Neutrophils % Lymphocytes % (Manual) Monocytes % (Manual) Abs Neuts (Manual) Lymphocytes # (Manual) Monocytes # (Manual) Platelet Estimate Plt Morphology Comment RBC Morphology Acanthocytes (Spur) Smear Tech's Comments Smear Path Review PT INR APTT O2 Saturation ABG pH at Pt Temp ABG pH (Temp Correct) ABG pCO2 at Pt Temp ABG pCO2 (Temp Corrct ABG pO2 at Pt Temp ABG pO2 (Temp Correct ABG HCO3 ABG Base Excess (Actual) VBG pH VBG pCO2 VBG pO2 VBG HCO3 VBG O2 Saturation VBG Base Excess Sodium 144 Potassium 3.9 Chloride 100 Carbon Dioxide 38 H Anion Gap 10 L BUN 8 L Creatinine 0.45 L Estim Creat Clear Calc 182.9 Estimated GFR > 60 POC Glucose 115 163 H Random Glucose Fasting Glucose 122 H Osmolality Lactic Acid Calcium 7.9 L Phosphorus Magnesium Transferrin Total Bilirubin 0.4 Direct Bilirubin AST 17 ALT 10 Alkaline Phosphatase 77 Ammonia Troponin I High Sens B-Natriuretic Peptide Total Protein 5.0 L Albumin 2.3 L Procalcitonin TSH Random Cortisol Urine Color Urine Appearance Urine pH Ur Specific [place] Urine Protein Urine Glucose (UA) Urine Ketones Urine Blood Urine Nitrite Ur Leukocyte Esterase Urine RBC Urine WBC Ur Squamous Epith Cells Urine Bacteria Urine Mucus Urine Osmolality Ur Random Sodium Ur Random Potassium Ur Random Chloride Stool Occult Blood Stool Leukocytes, Qual Random Vancomycin Digoxin C. difficile Tox B Gene COVID-19 (JESSY) COVID-19 Clin Com Influenza Type A (PCR) Influenza Type B (PCR) RSV RNA Qual (PCR) SARS-CoV-2 RNA (RT-PCR) Blood Type Antibody Screen Crossmatch 12/29/21 12/29/21 12/29/21 11:30 16:12 20:26 WBC RBC Hgb Hct MCV MCH MCHC RDW Plt Count MPV Immature Gran % (Auto) Neut % (Auto) Lymph % (Auto) [place] % (Auto) Eos % (Auto) Baso % (Auto) Lymph # (Auto) [place] # (Auto) Eos # (Auto) Baso # (Auto) Abs Immat Gran (auto) Absolute Neuts (auto) Absolute Nucleated RBC Nucleated RBC % (auto) Neutrophils % (Manual) Band Neutrophils % Lymphocytes % (Manual) Monocytes % (Manual) Abs Neuts (Manual) Lymphocytes # (Manual) Monocytes # (Manual) Platelet Estimate Plt Morphology Comment RBC Morphology Acanthocytes (Spur) Smear Tech's Comments Smear Path Review PT INR APTT O2 Saturation ABG pH at Pt Temp ABG pH (Temp Correct) ABG pCO2 at Pt Temp ABG pCO2 (Temp Corrct ABG pO2 at Pt Temp ABG pO2 (Temp Correct ABG HCO3 ABG Base Excess (Actual) VBG pH VBG pCO2 VBG pO2 VBG HCO3 VBG O2 Saturation VBG Base Excess Sodium Potassium Chloride Carbon Dioxide Anion Gap BUN Creatinine Estim Creat Clear Calc Estimated GFR POC Glucose 158 H 107 Random Glucose Fasting Glucose Osmolality Lactic Acid Calcium Phosphorus Magnesium Transferrin Total Bilirubin Direct Bilirubin AST ALT Alkaline Phosphatase Ammonia Troponin I High Sens B-Natriuretic Peptide Total Protein Albumin Procalcitonin TSH Random Cortisol Urine Color Urine Appearance Urine pH Ur Specific [place] Urine Protein Urine Glucose (UA) Urine Ketones Urine Blood Urine Nitrite Ur Leukocyte Esterase Urine RBC Urine WBC Ur Squamous Epith Cells Urine Bacteria Urine Mucus Urine Osmolality Ur Random Sodium Ur Random Potassium Ur Random Chloride Stool Occult Blood Stool Leukocytes, Qual Random Vancomycin Digoxin C. difficile Tox B Gene COVID-19 (JESSY) Negative COVID-19 Clin Com See Note Influenza Type A (PCR) Influenza Type B (PCR) RSV RNA Qual (PCR) SARS-CoV-2 RNA (RT-PCR) Blood Type Antibody Screen Crossmatch 12/30/21 12/30/21 12/30/21 06:23 06:23 07:32 WBC 13.6 H RBC 3.92 L Hgb 8.8 L Hct 30.8 L MCV 78.6 L MCH 22.4 L MCHC 28.6 L RDW 28.8 H Plt Count 303 MPV 9.8 Immature Gran % (Auto) 4.3 H Neut % (Auto) 75.9 H Lymph % (Auto) 10.8 L [place] % (Auto) 6.6 Eos % (Auto) 1.8 Baso % (Auto) 0.6 Lymph # (Auto) 1.5 [place] # (Auto) 0.9 Eos # (Auto) 0.3 Baso # (Auto) 0.1 Abs Immat Gran (auto) 0.58 H Absolute Neuts (auto) 10.3 H Absolute Nucleated RBC 0.000 Nucleated RBC % (auto) 0.0 Neutrophils % (Manual) Band Neutrophils % Lymphocytes % (Manual) Monocytes % (Manual) Abs Neuts (Manual) Lymphocytes # (Manual) Monocytes # (Manual) Platelet Estimate Plt Morphology Comment RBC Morphology Acanthocytes (Spur) Smear Tech's Comments Smear Path Review PT INR APTT O2 Saturation ABG pH at Pt Temp ABG pH (Temp Correct) ABG pCO2 at Pt Temp ABG pCO2 (Temp Corrct ABG pO2 at Pt Temp ABG pO2 (Temp Correct ABG HCO3 ABG Base Excess (Actual) VBG pH VBG pCO2 VBG pO2 VBG HCO3 VBG O2 Saturation VBG Base Excess Sodium 144 Potassium 3.6 Chloride 100 Carbon Dioxide 39 H Anion Gap 9 L BUN 7 L Creatinine 0.46 L Estim Creat Clear Calc 178.9 Estimated GFR > 60 POC Glucose 106 Random Glucose Fasting Glucose 109 H Osmolality Lactic Acid Calcium 8.2 L Phosphorus Magnesium Transferrin Total Bilirubin 0.6 Direct Bilirubin AST 12 ALT 6 Alkaline Phosphatase 83 Ammonia Troponin I High Sens B-Natriuretic Peptide Total Protein 5.3 L Albumin 2.6 L Procalcitonin TSH Random Cortisol Urine Color Urine Appearance Urine pH Ur Specific [place] Urine Protein Urine Glucose (UA) Urine Ketones Urine Blood Urine Nitrite Ur Leukocyte Esterase Urine RBC Urine WBC Ur Squamous Epith Cells Urine Bacteria Urine Mucus Urine Osmolality Ur Random Sodium Ur Random Potassium Ur Random Chloride Stool Occult Blood Stool Leukocytes, Qual Random Vancomycin Digoxin C. difficile Tox B Gene COVID-19 (JESSY) COVID-19 Clin Com Influenza Type A (PCR) Influenza Type B (PCR) RSV RNA Qual (PCR) SARS-CoV-2 RNA (RT-PCR) Blood Type Antibody Screen Crossmatch 12/30/21 12/30/21 12/30/21 11:02 16:56 20:17 WBC RBC Hgb Hct MCV MCH MCHC RDW Plt Count MPV Immature Gran % (Auto) Neut % (Auto) Lymph % (Auto) [place] % (Auto) Eos % (Auto) Baso % (Auto) Lymph # (Auto) [place] # (Auto) Eos # (Auto) Baso # (Auto) Abs Immat Gran (auto) Absolute Neuts (auto) Absolute Nucleated RBC Nucleated RBC % (auto) Neutrophils % (Manual) Band Neutrophils % Lymphocytes % (Manual) Monocytes % (Manual) Abs Neuts (Manual) Lymphocytes # (Manual) Monocytes # (Manual) Platelet Estimate Plt Morphology Comment RBC Morphology Acanthocytes (Spur) Smear Tech's Comments Smear Path Review PT INR APTT O2 Saturation ABG pH at Pt Temp ABG pH (Temp Correct) ABG pCO2 at Pt Temp ABG pCO2 (Temp Corrct ABG pO2 at Pt Temp ABG pO2 (Temp Correct ABG HCO3 ABG Base Excess (Actual) VBG pH VBG pCO2 VBG pO2 VBG HCO3 VBG O2 Saturation VBG Base Excess Sodium Potassium Chloride Carbon Dioxide Anion Gap BUN Creatinine Estim Creat Clear Calc Estimated GFR POC Glucose 118 H 207 H 102 Random Glucose Fasting Glucose Osmolality Lactic Acid Calcium Phosphorus Magnesium Transferrin Total Bilirubin Direct Bilirubin AST ALT Alkaline Phosphatase Ammonia Troponin I High Sens B-Natriuretic Peptide Total Protein Albumin Procalcitonin TSH Random Cortisol Urine Color Urine Appearance Urine pH Ur Specific [place] Urine Protein Urine Glucose (UA) Urine Ketones Urine Blood Urine Nitrite Ur Leukocyte Esterase Urine RBC Urine WBC Ur Squamous Epith Cells Urine Bacteria Urine Mucus Urine Osmolality Ur Random Sodium Ur Random Potassium Ur Random Chloride Stool Occult Blood Stool Leukocytes, Qual Random Vancomycin Digoxin C. difficile Tox B Gene COVID-19 (JESSY) COVID-19 Clin Com Influenza Type A (PCR) Influenza Type B (PCR) RSV RNA Qual (PCR) SARS-CoV-2 RNA (RT-PCR) Blood Type Antibody Screen Crossmatch 12/31/21 12/31/21 12/31/21 07:18 09:32 09:32 WBC 13.9 H RBC 4.09 L Hgb 9.0 L Hct 31.7 L MCV 77.5 L MCH 22.0 L MCHC 28.4 L RDW 28.2 H Plt Count 350 MPV 9.5 Immature Gran % (Auto) Neut % (Auto) Lymph % (Auto) [place] % (Auto) Eos % (Auto) Baso % (Auto) Lymph # (Auto) [place] # (Auto) Eos # (Auto) Baso # (Auto) Abs Immat Gran (auto) Absolute Neuts (auto) Absolute Nucleated RBC 0.040 H Nucleated RBC % (auto) 0.3 H Neutrophils % (Manual) Band Neutrophils % Lymphocytes % (Manual) Monocytes % (Manual) Abs Neuts (Manual) Lymphocytes # (Manual) Monocytes # (Manual) Platelet Estimate Plt Morphology Comment RBC Morphology Acanthocytes (Spur) Smear Tech's Comments Smear Path Review PT INR APTT O2 Saturation ABG pH at Pt Temp ABG pH (Temp Correct) ABG pCO2 at Pt Temp ABG pCO2 (Temp Corrct ABG pO2 at Pt Temp ABG pO2 (Temp Correct ABG HCO3 ABG Base Excess (Actual) VBG pH VBG pCO2 VBG pO2 VBG HCO3 VBG O2 Saturation VBG Base Excess Sodium 141 Potassium 4.1 Chloride 99 Carbon Dioxide 35 H Anion Gap 11 L BUN 7 L Creatinine 0.54 Estim Creat Clear Calc 152.4 Estimated GFR > 60 POC Glucose 153 H Random Glucose 148 H Fasting Glucose Osmolality Lactic Acid Calcium 8.1 L Phosphorus Magnesium Transferrin Total Bilirubin Direct Bilirubin AST ALT Alkaline Phosphatase Ammonia Troponin I High Sens B-Natriuretic Peptide Total Protein Albumin Procalcitonin TSH Random Cortisol Urine Color Urine Appearance Urine pH Ur Specific [place] Urine Protein Urine Glucose (UA) Urine Ketones Urine Blood Urine Nitrite Ur Leukocyte Esterase Urine RBC Urine WBC Ur Squamous Epith Cells Urine Bacteria Urine Mucus Urine Osmolality Ur Random Sodium Ur Random Potassium Ur Random Chloride Stool Occult Blood Stool Leukocytes, Qual Random Vancomycin Digoxin C. difficile Tox B Gene COVID-19 (JESSY) COVID-19 Clin Com Influenza Type A (PCR) Influenza Type B (PCR) RSV RNA Qual (PCR) SARS-CoV-2 RNA (RT-PCR) Blood Type Antibody Screen Crossmatch 12/31/21 12/31/21 12/31/21 09:32 09:32 09:45 WBC RBC Hgb Hct MCV MCH MCHC RDW Plt Count MPV Immature Gran % (Auto) Neut % (Auto) Lymph % (Auto) [place] % (Auto) Eos % (Auto) Baso % (Auto) Lymph # (Auto) [place] # (Auto) Eos # (Auto) Baso # (Auto) Abs Immat Gran (auto) Absolute Neuts (auto) Absolute Nucleated RBC Nucleated RBC % (auto) Neutrophils % (Manual) Band Neutrophils % Lymphocytes % (Manual) Monocytes % (Manual) Abs Neuts (Manual) Lymphocytes # (Manual) Monocytes # (Manual) Platelet Estimate Plt Morphology Comment RBC Morphology Acanthocytes (Spur) Smear Tech's Comments Smear Path Review PT INR APTT O2 Saturation ABG pH at Pt Temp ABG pH (Temp Correct) ABG pCO2 at Pt Temp ABG pCO2 (Temp Corrct ABG pO2 at Pt Temp ABG pO2 (Temp Correct ABG HCO3 ABG Base Excess (Actual) VBG pH 7.42 VBG pCO2 63 VBG pO2 62 VBG HCO3 40 H VBG O2 Saturation 85.0 VBG Base Excess 14.0 Sodium Potassium Chloride Carbon Dioxide Anion Gap BUN Creatinine Estim Creat Clear Calc Estimated GFR POC Glucose Random Glucose Fasting Glucose Osmolality Lactic Acid Calcium Phosphorus Magnesium Transferrin 156 L Total Bilirubin Direct Bilirubin AST ALT Alkaline Phosphatase Ammonia Troponin I High Sens B-Natriuretic Peptide 339 H Total Protein Albumin Procalcitonin TSH Random Cortisol Urine Color Urine Appearance Urine pH Ur Specific [place] Urine Protein Urine Glucose (UA) Urine Ketones Urine Blood Urine Nitrite Ur Leukocyte Esterase Urine RBC Urine WBC Ur Squamous Epith Cells Urine Bacteria Urine Mucus Urine Osmolality Ur Random Sodium Ur Random Potassium Ur Random Chloride Stool Occult Blood Stool Leukocytes, Qual Random Vancomycin Digoxin C. difficile Tox B Gene COVID-19 (JESSY) COVID-19 Clin Com Influenza Type A (PCR) Influenza Type B (PCR) RSV RNA Qual (PCR) SARS-CoV-2 RNA (RT-PCR) Blood Type Antibody Screen Crossmatch 12/31/21 12/31/21 01/01/22 15:14 20:14 06:17 WBC 13.8 H RBC 4.09 L Hgb 9.0 L Hct 32.2 L MCV 78.7 L MCH 22.0 L MCHC 28.0 L RDW 28.6 H Plt Count 394 MPV 9.9 Immature Gran % (Auto) Neut % (Auto) Lymph % (Auto) [place] % (Auto) Eos % (Auto) Baso % (Auto) Lymph # (Auto) [place] # (Auto) Eos # (Auto) Baso # (Auto) Abs Immat Gran (auto) Absolute Neuts (auto) Absolute Nucleated RBC 0.050 H Nucleated RBC % (auto) 0.4 H Neutrophils % (Manual) Band Neutrophils % Lymphocytes % (Manual) Monocytes % (Manual) Abs Neuts (Manual) Lymphocytes # (Manual) Monocytes # (Manual) Platelet Estimate Plt Morphology Comment RBC Morphology Acanthocytes (Spur) Smear Tech's Comments Smear Path Review PT INR APTT O2 Saturation ABG pH at Pt Temp ABG pH (Temp Correct) ABG pCO2 at Pt Temp ABG pCO2 (Temp Corrct ABG pO2 at Pt Temp ABG pO2 (Temp Correct ABG HCO3 ABG Base Excess (Actual) VBG pH VBG pCO2 VBG pO2 VBG HCO3 VBG O2 Saturation VBG Base Excess Sodium Potassium Chloride Carbon Dioxide Anion Gap BUN Creatinine Estim Creat Clear Calc Estimated GFR POC Glucose 124 H 256 H Random Glucose Fasting Glucose Osmolality Lactic Acid Calcium Phosphorus Magnesium Transferrin Total Bilirubin Direct Bilirubin AST ALT Alkaline Phosphatase Ammonia Troponin I High Sens B-Natriuretic Peptide Total Protein Albumin Procalcitonin TSH Random Cortisol Urine Color Urine Appearance Urine pH Ur Specific [place] Urine Protein Urine Glucose (UA) Urine Ketones Urine Blood Urine Nitrite Ur Leukocyte Esterase Urine RBC Urine WBC Ur Squamous Epith Cells Urine Bacteria Urine Mucus Urine Osmolality Ur Random Sodium Ur Random Potassium Ur Random Chloride Stool Occult Blood Stool Leukocytes, Qual Random Vancomycin Digoxin C. difficile Tox B Gene COVID-19 (JESSY) COVID-19 Clin Com Influenza Type A (PCR) Influenza Type B (PCR) RSV RNA Qual (PCR) SARS-CoV-2 RNA (RT-PCR) Blood Type Antibody Screen Crossmatch 01/01/22 01/01/22 01/01/22 06:17 06:17 06:22 WBC RBC Hgb Hct MCV MCH MCHC RDW Plt Count MPV Immature Gran % (Auto) Neut % (Auto) Lymph % (Auto) [place] % (Auto) Eos % (Auto) Baso % (Auto) Lymph # (Auto) [place] # (Auto) Eos # (Auto) Baso # (Auto) Abs Immat Gran (auto) Absolute Neuts (auto) Absolute Nucleated RBC Nucleated RBC % (auto) Neutrophils % (Manual) Band Neutrophils % Lymphocytes % (Manual) Monocytes % (Manual) Abs Neuts (Manual) Lymphocytes # (Manual) Monocytes # (Manual) Platelet Estimate Plt Morphology Comment RBC Morphology Acanthocytes (Spur) Smear Tech's Comments Smear Path Review PT INR APTT O2 Saturation ABG pH at Pt Temp ABG pH (Temp Correct) ABG pCO2 at Pt Temp ABG pCO2 (Temp Corrct ABG pO2 at Pt Temp ABG pO2 (Temp Correct ABG HCO3 ABG Base Excess (Actual) VBG pH 7.40 VBG pCO2 65 VBG pO2 57 VBG HCO3 41 H VBG O2 Saturation 82.0 VBG Base Excess 14.2 Sodium 143 Potassium 4.0 Chloride 100 Carbon Dioxide 37 H Anion Gap 10 L BUN 8 L Creatinine 0.50 Estim Creat Clear Calc 164.6 Estimated GFR > 60 POC Glucose Random Glucose 118 H Fasting Glucose Osmolality Lactic Acid Calcium 8.3 L Phosphorus Magnesium 1.6 Transferrin Total Bilirubin Direct Bilirubin AST ALT Alkaline Phosphatase Ammonia Troponin I High Sens B-Natriuretic Peptide 726 H Total Protein Albumin Procalcitonin TSH Random Cortisol Urine Color Urine Appearance Urine pH Ur Specific [place] Urine Protein Urine Glucose (UA) Urine Ketones Urine Blood Urine Nitrite Ur Leukocyte Esterase Urine RBC Urine WBC Ur Squamous Epith Cells Urine Bacteria Urine Mucus Urine Osmolality Ur Random Sodium Ur Random Potassium Ur Random Chloride Stool Occult Blood Stool Leukocytes, Qual Random Vancomycin Digoxin C. difficile Tox B Gene COVID-19 (JESSY) COVID-19 Clin Com Influenza Type A (PCR) Influenza Type B (PCR) RSV RNA Qual (PCR) SARS-CoV-2 RNA (RT-PCR) Blood Type Antibody Screen Crossmatch 01/01/22 01/01/22 01/01/22 07:05 11:11 16:38 WBC RBC Hgb Hct MCV MCH MCHC RDW Plt Count MPV Immature Gran % (Auto) Neut % (Auto) Lymph % (Auto) [place] % (Auto) Eos % (Auto) Baso % (Auto) Lymph # (Auto) [place] # (Auto) Eos # (Auto) Baso # (Auto) Abs Immat Gran (auto) Absolute Neuts (auto) Absolute Nucleated RBC Nucleated RBC % (auto) Neutrophils % (Manual) Band Neutrophils % Lymphocytes % (Manual) Monocytes % (Manual) Abs Neuts (Manual) Lymphocytes # (Manual) Monocytes # (Manual) Platelet Estimate Plt Morphology Comment RBC Morphology Acanthocytes (Spur) Smear Tech's Comments Smear Path Review PT INR APTT O2 Saturation ABG pH at Pt Temp ABG pH (Temp Correct) ABG pCO2 at Pt Temp ABG pCO2 (Temp Corrct ABG pO2 at Pt Temp ABG pO2 (Temp Correct ABG HCO3 ABG Base Excess (Actual) VBG pH VBG pCO2 VBG pO2 VBG HCO3 VBG O2 Saturation VBG Base Excess Sodium Potassium Chloride Carbon Dioxide Anion Gap BUN Creatinine Estim Creat Clear Calc Estimated GFR POC Glucose 106 132 H 157 H Random Glucose Fasting Glucose Osmolality Lactic Acid Calcium Phosphorus Magnesium Transferrin Total Bilirubin Direct Bilirubin AST ALT Alkaline Phosphatase Ammonia Troponin I High Sens B-Natriuretic Peptide Total Protein Albumin Procalcitonin TSH Random Cortisol Urine Color Urine Appearance Urine pH Ur Specific [place] Urine Protein Urine Glucose (UA) Urine Ketones Urine Blood Urine Nitrite Ur Leukocyte Esterase Urine RBC Urine WBC Ur Squamous Epith Cells Urine Bacteria Urine Mucus Urine Osmolality Ur Random Sodium Ur Random Potassium Ur Random Chloride Stool Occult Blood Stool Leukocytes, Qual Random Vancomycin Digoxin C. difficile Tox B Gene COVID-19 (JESSY) COVID-19 Clin Com Influenza Type A (PCR) Influenza Type B (PCR) RSV RNA Qual (PCR) SARS-CoV-2 RNA (RT-PCR) Blood Type Antibody Screen Crossmatch 01/01/22 01/02/22 01/02/22 19:52 06:25 06:25 WBC RBC Hgb Hct MCV MCH MCHC RDW Plt Count MPV Immature Gran % (Auto) Neut % (Auto) Lymph % (Auto) [place] % (Auto) Eos % (Auto) Baso % (Auto) Lymph # (Auto) [place] # (Auto) Eos # (Auto) Baso # (Auto) Abs Immat Gran (auto) Absolute Neuts (auto) Absolute Nucleated RBC Nucleated RBC % (auto) Neutrophils % (Manual) Band Neutrophils % Lymphocytes % (Manual) Monocytes % (Manual) Abs Neuts (Manual) Lymphocytes # (Manual) Monocytes # (Manual) Platelet Estimate Plt Morphology Comment RBC Morphology Acanthocytes (Spur) Smear Tech's Comments Smear Path Review PT INR APTT O2 Saturation ABG pH at Pt Temp ABG pH (Temp Correct) ABG pCO2 at Pt Temp ABG pCO2 (Temp Corrct ABG pO2 at Pt Temp ABG pO2 (Temp Correct ABG HCO3 ABG Base Excess (Actual) VBG pH VBG pCO2 VBG pO2 VBG HCO3 VBG O2 Saturation VBG Base Excess Sodium 139 Potassium 4.0 Chloride 91 L Carbon Dioxide 35 H Anion Gap 17 BUN 6 L Creatinine 0.52 Estim Creat Clear Calc 158.3 Estimated GFR > 60 POC Glucose 151 H Random Glucose 111 Fasting Glucose Osmolality Lactic Acid Calcium 8.2 L Phosphorus Magnesium 1.7 Transferrin Total Bilirubin Direct Bilirubin AST ALT Alkaline Phosphatase Ammonia Troponin I High Sens B-Natriuretic Peptide 279 H Total Protein Albumin Procalcitonin TSH Random Cortisol Urine Color Urine Appearance Urine pH Ur Specific [place] Urine Protein Urine Glucose (UA) Urine Ketones Urine Blood Urine Nitrite Ur Leukocyte Esterase Urine RBC Urine WBC Ur Squamous Epith Cells Urine Bacteria Urine Mucus Urine Osmolality Ur Random Sodium Ur Random Potassium Ur Random Chloride Stool Occult Blood Stool Leukocytes, Qual Random Vancomycin Digoxin C. difficile Tox B Gene COVID-19 (JESSY) COVID-19 Clin Com Influenza Type A (PCR) Influenza Type B (PCR) RSV RNA Qual (PCR) SARS-CoV-2 RNA (RT-PCR) Blood Type Antibody Screen Crossmatch 01/02/22 01/02/22 01/02/22 07:12 11:21 16:32 WBC RBC Hgb Hct MCV MCH MCHC RDW Plt Count MPV Immature Gran % (Auto) Neut % (Auto) Lymph % (Auto) [place] % (Auto) Eos % (Auto) Baso % (Auto) Lymph # (Auto) [place] # (Auto) Eos # (Auto) Baso # (Auto) Abs Immat Gran (auto) Absolute Neuts (auto) Absolute Nucleated RBC Nucleated RBC % (auto) Neutrophils % (Manual) Band Neutrophils % Lymphocytes % (Manual) Monocytes % (Manual) Abs Neuts (Manual) Lymphocytes # (Manual) Monocytes # (Manual) Platelet Estimate Plt Morphology Comment RBC Morphology Acanthocytes (Spur) Smear Tech's Comments Smear Path Review PT INR APTT O2 Saturation ABG pH at Pt Temp ABG pH (Temp Correct) ABG pCO2 at Pt Temp ABG pCO2 (Temp Corrct ABG pO2 at Pt Temp ABG pO2 (Temp Correct ABG HCO3 ABG Base Excess (Actual) VBG pH VBG pCO2 VBG pO2 VBG HCO3 VBG O2 Saturation VBG Base Excess Sodium Potassium Chloride Carbon Dioxide Anion Gap BUN Creatinine Estim Creat Clear Calc Estimated GFR POC Glucose 117 H 115 121 H Random Glucose Fasting Glucose Osmolality Lactic Acid Calcium Phosphorus Magnesium Transferrin Total Bilirubin Direct Bilirubin AST ALT Alkaline Phosphatase Ammonia Troponin I High Sens B-Natriuretic Peptide Total Protein Albumin Procalcitonin TSH Random Cortisol Urine Color Urine Appearance Urine pH Ur Specific [place] Urine Protein Urine Glucose (UA) Urine Ketones Urine Blood Urine Nitrite Ur Leukocyte Esterase Urine RBC Urine WBC Ur Squamous Epith Cells Urine Bacteria Urine Mucus Urine Osmolality Ur Random Sodium Ur Random Potassium Ur Random Chloride Stool Occult Blood Stool Leukocytes, Qual Random Vancomycin Digoxin C. difficile Tox B Gene COVID-19 (JESSY) COVID-19 Clin Com Influenza Type A (PCR) Influenza Type B (PCR) RSV RNA Qual (PCR) SARS-CoV-2 RNA (RT-PCR) Blood Type Antibody Screen Crossmatch 01/02/22 01/03/22 01/03/22 20:42 06:58 06:58 WBC 15.0 H RBC 4.54 Hgb 10.3 L Hct 34.7 L MCV 76.4 L MCH 22.7 L MCHC 29.7 L RDW 28.7 H Plt Count 300 MPV Not Reportable Immature Gran % (Auto) 4.6 H Neut % (Auto) 76.7 H Lymph % (Auto) 10.3 L [place] % (Auto) 6.9 Eos % (Auto) 0.9 Baso % (Auto) 0.6 Lymph # (Auto) 1.6 [place] # (Auto) 1.0 Eos # (Auto) 0.1 Baso # (Auto) 0.1 Abs Immat Gran (auto) 0.69 H Absolute Neuts (auto) 11.5 H Absolute Nucleated RBC 0.030 H Nucleated RBC % (auto) 0.2 Neutrophils % (Manual) Band Neutrophils % Lymphocytes % (Manual) Monocytes % (Manual) Abs Neuts (Manual) Lymphocytes # (Manual) Monocytes # (Manual) Platelet Estimate Plt Morphology Comment RBC Morphology Acanthocytes (Spur) Smear Tech's Comments VERIFIED Smear Path Review PT INR APTT O2 Saturation ABG pH at Pt Temp ABG pH (Temp Correct) ABG pCO2 at Pt Temp ABG pCO2 (Temp Corrct ABG pO2 at Pt Temp ABG pO2 (Temp Correct ABG HCO3 ABG Base Excess (Actual) VBG pH VBG pCO2 VBG pO2 VBG HCO3 VBG O2 Saturation VBG Base Excess Sodium 134 L Potassium 4.9 D Chloride 93 L Carbon Dioxide 29 Anion Gap 17 BUN 4 L Creatinine 0.54 Estim Creat Clear Calc 152.4 Estimated GFR > 60 POC Glucose 115 Random Glucose Fasting Glucose 102 H Osmolality Lactic Acid Calcium 8.0 L Phosphorus Magnesium Transferrin Total Bilirubin 0.7 Direct Bilirubin AST 46 H D ALT 12 Alkaline Phosphatase 75 Ammonia Troponin I High Sens B-Natriuretic Peptide Total Protein 6.0 L Albumin 2.4 L Procalcitonin TSH Random Cortisol Urine Color Urine Appearance Urine pH Ur Specific [place] Urine Protein Urine Glucose (UA) Urine Ketones Urine Blood Urine Nitrite Ur Leukocyte Esterase Urine RBC Urine WBC Ur Squamous Epith Cells Urine Bacteria Urine Mucus Urine Osmolality Ur Random Sodium Ur Random Potassium Ur Random Chloride Stool Occult Blood Stool Leukocytes, Qual Random Vancomycin Digoxin C. difficile Tox B Gene COVID-19 (JESSY) COVID-19 Clin Com Influenza Type A (PCR) Influenza Type B (PCR) RSV RNA Qual (PCR) SARS-CoV-2 RNA (RT-PCR) Blood Type Antibody Screen Crossmatch 01/03/22 01/03/22 01/03/22 07:07 11:32 16:06 WBC RBC Hgb Hct MCV MCH MCHC RDW Plt Count MPV Immature Gran % (Auto) Neut % (Auto) Lymph % (Auto) [place] % (Auto) Eos % (Auto) Baso % (Auto) Lymph # (Auto) [place] # (Auto) Eos # (Auto) Baso # (Auto) Abs Immat Gran (auto) Absolute Neuts (auto) Absolute Nucleated RBC Nucleated RBC % (auto) Neutrophils % (Manual) Band Neutrophils % Lymphocytes % (Manual) Monocytes % (Manual) Abs Neuts (Manual) Lymphocytes # (Manual) Monocytes # (Manual) Platelet Estimate Plt Morphology Comment RBC Morphology Acanthocytes (Spur) Smear Tech's Comments Smear Path Review PT INR APTT O2 Saturation ABG pH at Pt Temp ABG pH (Temp Correct) ABG pCO2 at Pt Temp ABG pCO2 (Temp Corrct ABG pO2 at Pt Temp ABG pO2 (Temp Correct ABG HCO3 ABG Base Excess (Actual) VBG pH VBG pCO2 VBG pO2 VBG HCO3 VBG O2 Saturation VBG Base Excess Sodium Potassium Chloride Carbon Dioxide Anion Gap BUN Creatinine Estim Creat Clear Calc Estimated GFR POC Glucose 103 117 H 132 H Random Glucose Fasting Glucose Osmolality Lactic Acid Calcium Phosphorus Magnesium Transferrin Total Bilirubin Direct Bilirubin AST ALT Alkaline Phosphatase Ammonia Troponin I High Sens B-Natriuretic Peptide Total Protein Albumin Procalcitonin TSH Random Cortisol Urine Color Urine Appearance Urine pH Ur Specific [place] Urine Protein Urine Glucose (UA) Urine Ketones Urine Blood Urine Nitrite Ur Leukocyte Esterase Urine RBC Urine WBC Ur Squamous Epith Cells Urine Bacteria Urine Mucus Urine Osmolality Ur Random Sodium Ur Random Potassium Ur Random Chloride Stool Occult Blood Stool Leukocytes, Qual Random Vancomycin Digoxin C. difficile Tox B Gene COVID-19 (JESSY) COVID-19 Clin Com Influenza Type A (PCR) Influenza Type B (PCR) RSV RNA Qual (PCR) SARS-CoV-2 RNA (RT-PCR) Blood Type Antibody Screen Crossmatch 01/03/22 01/04/22 01/04/22 19:56 05:42 05:42 WBC 15.2 H RBC 4.40 Hgb 10.2 L Hct 33.7 L MCV 76.6 L MCH 23.2 L MCHC 30.3 L RDW 28.1 H Plt Count 460 H D MPV 9.7 Immature Gran % (Auto) 4.1 H Neut % (Auto) 73.0 Lymph % (Auto) 11.2 L Grainger % (Auto) 9.5 Eos % (Auto) 1.5 Baso % (Auto) 0.7 Lymph # (Auto) 1.7 Grainger # (Auto) 1.4 H Eos # (Auto) 0.2 Baso # (Auto) 0.1 Abs Immat Gran (auto) 0.62 H Absolute Neuts (auto) 11.1 H Absolute Nucleated RBC 0.000 Nucleated RBC % (auto) 0.0 Neutrophils % (Manual) Band Neutrophils % Lymphocytes % (Manual) Monocytes % (Manual) Abs Neuts (Manual) Lymphocytes # (Manual) Monocytes # (Manual) Platelet Estimate Plt Morphology Comment RBC Morphology Acanthocytes (Spur) Smear Tech's Comments Smear Path Review PT INR APTT O2 Saturation ABG pH at Pt Temp ABG pH (Temp Correct) ABG pCO2 at Pt Temp ABG pCO2 (Temp Corrct ABG pO2 at Pt Temp ABG pO2 (Temp Correct ABG HCO3 ABG Base Excess (Actual) VBG pH VBG pCO2 VBG pO2 VBG HCO3 VBG O2 Saturation VBG Base Excess Sodium 137 Potassium 3.8 D Chloride 94 L Carbon Dioxide 35 H Anion Gap 12 BUN 4 L Creatinine 0.50 Estim Creat Clear Calc 139.6 Estimated GFR > 60 POC Glucose 162 H Random Glucose Fasting Glucose 83 Osmolality Lactic Acid Calcium 8.3 L Phosphorus Magnesium Transferrin Total Bilirubin 0.6 Direct Bilirubin AST 18 D ALT 8 Alkaline Phosphatase 78 Ammonia Troponin I High Sens B-Natriuretic Peptide Total Protein 5.4 L Albumin 2.7 L Procalcitonin TSH Random Cortisol Urine Color Urine Appearance Urine pH Ur Specific [place] Urine Protein Urine Glucose (UA) Urine Ketones Urine Blood Urine Nitrite Ur Leukocyte Esterase Urine RBC Urine WBC Ur Squamous Epith Cells Urine Bacteria Urine Mucus Urine Osmolality Ur Random Sodium Ur Random Potassium Ur Random Chloride Stool Occult Blood Stool Leukocytes, Qual Random Vancomycin Digoxin C. difficile Tox B Gene COVID-19 (JESSY) COVID-19 Clin Com Influenza Type A (PCR) Influenza Type B (PCR) RSV RNA Qual (PCR) SARS-CoV-2 RNA (RT-PCR) Blood Type Antibody Screen Crossmatch 01/04/22 01/04/22 01/04/22 07:34 12:35 15:35 WBC RBC Hgb Hct MCV MCH MCHC RDW Plt Count MPV Immature Gran % (Auto) Neut % (Auto) Lymph % (Auto) Grainger % (Auto) Eos % (Auto) Baso % (Auto) Lymph # (Auto) Grainger # (Auto) Eos # (Auto) Baso # (Auto) Abs Immat Gran (auto) Absolute Neuts (auto) Absolute Nucleated RBC Nucleated RBC % (auto) Neutrophils % (Manual) Band Neutrophils % Lymphocytes % (Manual) Monocytes % (Manual) Abs Neuts (Manual) Lymphocytes # (Manual) Monocytes # (Manual) Platelet Estimate Plt Morphology Comment RBC Morphology Acanthocytes (Spur) Smear Tech's Comments Smear Path Review PT INR APTT O2 Saturation ABG pH at Pt Temp ABG pH (Temp Correct) ABG pCO2 at Pt Temp ABG pCO2 (Temp Corrct ABG pO2 at Pt Temp ABG pO2 (Temp Correct ABG HCO3 ABG Base Excess (Actual) VBG pH VBG pCO2 VBG pO2 VBG HCO3 VBG O2 Saturation VBG Base Excess Sodium Potassium Chloride Carbon Dioxide Anion Gap BUN Creatinine Estim Creat Clear Calc Estimated GFR POC Glucose 97 159 H 140 H Random Glucose Fasting Glucose Osmolality Lactic Acid Calcium Phosphorus Magnesium Transferrin Total Bilirubin Direct Bilirubin AST ALT Alkaline Phosphatase Ammonia Troponin I High Sens B-Natriuretic Peptide Total Protein Albumin Procalcitonin TSH Random Cortisol Urine Color Urine Appearance Urine pH Ur Specific [place] Urine Protein Urine Glucose (UA) Urine Ketones Urine Blood Urine Nitrite Ur Leukocyte Esterase Urine RBC Urine WBC Ur Squamous Epith Cells Urine Bacteria Urine Mucus Urine Osmolality Ur Random Sodium Ur Random Potassium Ur Random Chloride Stool Occult Blood Stool Leukocytes, Qual Random Vancomycin Digoxin C. difficile Tox B Gene COVID-19 (JESSY) COVID-19 Clin Com Influenza Type A (PCR) Influenza Type B (PCR) RSV RNA Qual (PCR) SARS-CoV-2 RNA (RT-PCR) Blood Type Antibody Screen Crossmatch 01/04/22 01/05/22 01/05/22 19:36 05:52 05:52 WBC 15.7 H RBC 4.30 Hgb 9.4 L Hct 32.8 L MCV 76.3 L MCH 21.9 L MCHC 28.7 L RDW 28.1 H Plt Count 505 H MPV 9.7 Immature Gran % (Auto) 3.4 H Neut % (Auto) 76.9 H Lymph % (Auto) 9.7 L Grainger % (Auto) 8.1 Eos % (Auto) 1.3 Baso % (Auto) 0.6 Lymph # (Auto) 1.5 Grainger # (Auto) 1.3 H Eos # (Auto) 0.2 Baso # (Auto) 0.1 Abs Immat Gran (auto) 0.54 H Absolute Neuts (auto) 12.1 H Absolute Nucleated RBC 0.000 Nucleated RBC % (auto) 0.0 Neutrophils % (Manual) Band Neutrophils % Lymphocytes % (Manual) Monocytes % (Manual) Abs Neuts (Manual) Lymphocytes # (Manual) Monocytes # (Manual) Platelet Estimate Plt Morphology Comment RBC Morphology Acanthocytes (Spur) Smear Tech's Comments Smear Path Review PT INR APTT O2 Saturation ABG pH at Pt Temp ABG pH (Temp Correct) ABG pCO2 at Pt Temp ABG pCO2 (Temp Corrct ABG pO2 at Pt Temp ABG pO2 (Temp Correct ABG HCO3 ABG Base Excess (Actual) VBG pH VBG pCO2 VBG pO2 VBG HCO3 VBG O2 Saturation VBG Base Excess Sodium 137 Potassium 3.9 Chloride 95 L Carbon Dioxide 36 H Anion Gap 10 L BUN 8 L D Creatinine 0.54 Estim Creat Clear Calc 129.0 Estimated GFR > 60 POC Glucose 133 H Random Glucose Fasting Glucose 108 H Osmolality Lactic Acid Calcium 8.1 L Phosphorus Magnesium Transferrin Total Bilirubin 0.6 Direct Bilirubin AST 12 ALT 9 Alkaline Phosphatase 71 Ammonia Troponin I High Sens B-Natriuretic Peptide Total Protein 5.1 L Albumin 2.5 L Procalcitonin TSH Random Cortisol Urine Color Urine Appearance Urine pH Ur Specific [place] Urine Protein Urine Glucose (UA) Urine Ketones Urine Blood Urine Nitrite Ur Leukocyte Esterase Urine RBC Urine WBC Ur Squamous Epith Cells Urine Bacteria Urine Mucus Urine Osmolality Ur Random Sodium Ur Random Potassium Ur Random Chloride Stool Occult Blood Stool Leukocytes, Qual Random Vancomycin Digoxin C. difficile Tox B Gene COVID-19 (JESSY) COVID-19 Clin Com Influenza Type A (PCR) Influenza Type B (PCR) RSV RNA Qual (PCR) SARS-CoV-2 RNA (RT-PCR) Blood Type Antibody Screen Crossmatch 01/05/22 01/05/22 01/05/22 07:14 11:02 15:25 WBC RBC Hgb Hct MCV MCH MCHC RDW Plt Count MPV Immature Gran % (Auto) Neut % (Auto) Lymph % (Auto) [place] % (Auto) Eos % (Auto) Baso % (Auto) Lymph # (Auto) [place] # (Auto) Eos # (Auto) Baso # (Auto) Abs Immat Gran (auto) Absolute Neuts (auto) Absolute Nucleated RBC Nucleated RBC % (auto) Neutrophils % (Manual) Band Neutrophils % Lymphocytes % (Manual) Monocytes % (Manual) Abs Neuts (Manual) Lymphocytes # (Manual) Monocytes # (Manual) Platelet Estimate Plt Morphology Comment RBC Morphology Acanthocytes (Spur) Smear Tech's Comments Smear Path Review PT INR APTT O2 Saturation ABG pH at Pt Temp ABG pH (Temp Correct) ABG pCO2 at Pt Temp ABG pCO2 (Temp Corrct ABG pO2 at Pt Temp ABG pO2 (Temp Correct ABG HCO3 ABG Base Excess (Actual) VBG pH VBG pCO2 VBG pO2 VBG HCO3 VBG O2 Saturation VBG Base Excess Sodium Potassium Chloride Carbon Dioxide Anion Gap BUN Creatinine Estim Creat Clear Calc Estimated GFR POC Glucose 121 H 143 H 235 H Random Glucose Fasting Glucose Osmolality Lactic Acid Calcium Phosphorus Magnesium Transferrin Total Bilirubin Direct Bilirubin AST ALT Alkaline Phosphatase Ammonia Troponin I High Sens B-Natriuretic Peptide Total Protein Albumin Procalcitonin TSH Random Cortisol Urine Color Urine Appearance Urine pH Ur Specific [place] Urine Protein Urine Glucose (UA) Urine Ketones Urine Blood Urine Nitrite Ur Leukocyte Esterase Urine RBC Urine WBC Ur Squamous Epith Cells Urine Bacteria Urine Mucus Urine Osmolality Ur Random Sodium Ur Random Potassium Ur Random Chloride Stool Occult Blood Stool Leukocytes, Qual Random Vancomycin Digoxin C. difficile Tox B Gene COVID-19 (JESSY) COVID-19 Clin Com Influenza Type A (PCR) Influenza Type B (PCR) RSV RNA Qual (PCR) SARS-CoV-2 RNA (RT-PCR) Blood Type Antibody Screen Crossmatch 01/05/22 01/06/22 01/06/22 19:30 07:01 11:00 WBC RBC Hgb Hct MCV MCH MCHC RDW Plt Count MPV Immature Gran % (Auto) Neut % (Auto) Lymph % (Auto) [place] % (Auto) Eos % (Auto) Baso % (Auto) Lymph # (Auto) [place] # (Auto) Eos # (Auto) Baso # (Auto) Abs Immat Gran (auto) Absolute Neuts (auto) Absolute Nucleated RBC Nucleated RBC % (auto) Neutrophils % (Manual) Band Neutrophils % Lymphocytes % (Manual) Monocytes % (Manual) Abs Neuts (Manual) Lymphocytes # (Manual) Monocytes # (Manual) Platelet Estimate Plt Morphology Comment RBC Morphology Acanthocytes (Spur) Smear Tech's Comments Smear Path Review PT INR APTT O2 Saturation ABG pH at Pt Temp ABG pH (Temp Correct) ABG pCO2 at Pt Temp ABG pCO2 (Temp Corrct ABG pO2 at Pt Temp ABG pO2 (Temp Correct ABG HCO3 ABG Base Excess (Actual) VBG pH VBG pCO2 VBG pO2 VBG HCO3 VBG O2 Saturation VBG Base Excess Sodium Potassium Chloride Carbon Dioxide Anion Gap BUN Creatinine Estim Creat Clear Calc Estimated GFR POC Glucose 130 H 120 H 167 H Random Glucose Fasting Glucose Osmolality Lactic Acid Calcium Phosphorus Magnesium Transferrin Total Bilirubin Direct Bilirubin AST ALT Alkaline Phosphatase Ammonia Troponin I High Sens B-Natriuretic Peptide Total Protein Albumin Procalcitonin TSH Random Cortisol Urine Color Urine Appearance Urine pH Ur Specific [place] Urine Protein Urine Glucose (UA) Urine Ketones Urine Blood Urine Nitrite Ur Leukocyte Esterase Urine RBC Urine WBC Ur Squamous Epith Cells Urine Bacteria Urine Mucus Urine Osmolality Ur Random Sodium Ur Random Potassium Ur Random Chloride Stool Occult Blood Stool Leukocytes, Qual Random Vancomycin Digoxin C. difficile Tox B Gene COVID-19 (JESSY) COVID-19 Clin Com Influenza Type A (PCR) Influenza Type B (PCR) RSV RNA Qual (PCR) SARS-CoV-2 RNA (RT-PCR) Blood Type Antibody Screen Crossmatch 01/06/22 01/06/22 01/07/22 15:53 20:05 07:15 WBC RBC Hgb Hct MCV MCH MCHC RDW Plt Count MPV Immature Gran % (Auto) Neut % (Auto) Lymph % (Auto) [place] % (Auto) Eos % (Auto) Baso % (Auto) Lymph # (Auto) [place] # (Auto) Eos # (Auto) Baso # (Auto) Abs Immat Gran (auto) Absolute Neuts (auto) Absolute Nucleated RBC Nucleated RBC % (auto) Neutrophils % (Manual) Band Neutrophils % Lymphocytes % (Manual) Monocytes % (Manual) Abs Neuts (Manual) Lymphocytes # (Manual) Monocytes # (Manual) Platelet Estimate Plt Morphology Comment RBC Morphology Acanthocytes (Spur) Smear Tech's Comments Smear Path Review PT INR APTT O2 Saturation ABG pH at Pt Temp ABG pH (Temp Correct) ABG pCO2 at Pt Temp ABG pCO2 (Temp Corrct ABG pO2 at Pt Temp ABG pO2 (Temp Correct ABG HCO3 ABG Base Excess (Actual) VBG pH VBG pCO2 VBG pO2 VBG HCO3 VBG O2 Saturation VBG Base Excess Sodium Potassium Chloride Carbon Dioxide Anion Gap BUN Creatinine Estim Creat Clear Calc Estimated GFR POC Glucose 132 H 126 H 112 Random Glucose Fasting Glucose Osmolality Lactic Acid Calcium Phosphorus Magnesium Transferrin Total Bilirubin Direct Bilirubin AST ALT Alkaline Phosphatase Ammonia Troponin I High Sens B-Natriuretic Peptide Total Protein Albumin Procalcitonin TSH Random Cortisol Urine Color Urine Appearance Urine pH Ur Specific [place] Urine Protein Urine Glucose (UA) Urine Ketones Urine Blood Urine Nitrite Ur Leukocyte Esterase Urine RBC Urine WBC Ur Squamous Epith Cells Urine Bacteria Urine Mucus Urine Osmolality Ur Random Sodium Ur Random Potassium Ur Random Chloride Stool Occult Blood Stool Leukocytes, Qual Random Vancomycin Digoxin C. difficile Tox B Gene COVID-19 (JESSY) COVID-19 Clin Com Influenza Type A (PCR) Influenza Type B (PCR) RSV RNA Qual (PCR) SARS-CoV-2 RNA (RT-PCR) Blood Type Antibody Screen Crossmatch 01/07/22 01/07/22 01/07/22 11:05 15:46 20:27 WBC RBC Hgb 8.2 L Hct 27.8 L MCV MCH MCHC RDW Plt Count MPV Immature Gran % (Auto) Neut % (Auto) Lymph % (Auto) [place] % (Auto) Eos % (Auto) Baso % (Auto) Lymph # (Auto) [place] # (Auto) Eos # (Auto) Baso # (Auto) Abs Immat Gran (auto) Absolute Neuts (auto) Absolute Nucleated RBC Nucleated RBC % (auto) Neutrophils % (Manual) Band Neutrophils % Lymphocytes % (Manual) Monocytes % (Manual) Abs Neuts (Manual) Lymphocytes # (Manual) Monocytes # (Manual) Platelet Estimate Plt Morphology Comment RBC Morphology Acanthocytes (Spur) Smear Tech's Comments Smear Path Review PT INR APTT O2 Saturation ABG pH at Pt Temp ABG pH (Temp Correct) ABG pCO2 at Pt Temp ABG pCO2 (Temp Corrct ABG pO2 at Pt Temp ABG pO2 (Temp Correct ABG HCO3 ABG Base Excess (Actual) VBG pH VBG pCO2 VBG pO2 VBG HCO3 VBG O2 Saturation VBG Base Excess Sodium Potassium Chloride Carbon Dioxide Anion Gap BUN Creatinine Estim Creat Clear Calc Estimated GFR POC Glucose 145 H 281 H Random Glucose Fasting Glucose Osmolality Lactic Acid Calcium Phosphorus Magnesium Transferrin Total Bilirubin Direct Bilirubin AST ALT Alkaline Phosphatase Ammonia Troponin I High Sens B-Natriuretic Peptide Total Protein Albumin Procalcitonin TSH Random Cortisol Urine Color Urine Appearance Urine pH Ur Specific [place] Urine Protein Urine Glucose (UA) Urine Ketones Urine Blood Urine Nitrite Ur Leukocyte Esterase Urine RBC Urine WBC Ur Squamous Epith Cells Urine Bacteria Urine Mucus Urine Osmolality Ur Random Sodium Ur Random Potassium Ur Random Chloride Stool Occult Blood Stool Leukocytes, Qual Random Vancomycin Digoxin C. difficile Tox B Gene COVID-19 (JESSY) COVID-19 Clin Com Influenza Type A (PCR) Influenza Type B (PCR) RSV RNA Qual (PCR) SARS-CoV-2 RNA (RT-PCR) Blood Type Antibody Screen Crossmatch 01/07/22 01/07/22 20:27 20:30 WBC RBC Hgb Hct MCV MCH MCHC RDW Plt Count MPV Immature Gran % (Auto) Neut % (Auto) Lymph % (Auto) [place] % (Auto) Eos % (Auto) Baso % (Auto) Lymph # (Auto) [place] # (Auto) Eos # (Auto) Baso # (Auto) Abs Immat Gran (auto) Absolute Neuts (auto) Absolute Nucleated RBC Nucleated RBC % (auto) Neutrophils % (Manual) Band Neutrophils % Lymphocytes % (Manual) Monocytes % (Manual) Abs Neuts (Manual) Lymphocytes # (Manual) Monocytes # (Manual) Platelet Estimate Plt Morphology Comment RBC Morphology Acanthocytes (Spur) Smear Tech's Comments Smear Path Review PT INR APTT O2 Saturation ABG pH at Pt Temp ABG pH (Temp Correct) ABG pCO2 at Pt Temp ABG pCO2 (Temp Corrct ABG pO2 at Pt Temp ABG pO2 (Temp Correct ABG HCO3 ABG Base Excess (Actual) VBG pH VBG pCO2 VBG pO2 VBG HCO3 VBG O2 Saturation VBG Base Excess Sodium Potassium Chloride Carbon Dioxide Anion Gap BUN Creatinine Estim Creat Clear Calc Estimated GFR POC Glucose 127 H Random Glucose Fasting Glucose Osmolality Lactic Acid Calcium Phosphorus Magnesium Transferrin Total Bilirubin Direct Bilirubin AST ALT Alkaline Phosphatase Ammonia Troponin I High Sens B-Natriuretic Peptide Total Protein Albumin Procalcitonin TSH Random Cortisol Urine Color Urine Appearance Urine pH Ur Specific [place] Urine Protein Urine Glucose (UA) Urine Ketones Urine Blood Urine Nitrite Ur Leukocyte Esterase Urine RBC Urine WBC Ur Squamous Epith Cells Urine Bacteria Urine Mucus Urine Osmolality Ur Random Sodium Ur Random Potassium Ur Random Chloride Stool Occult Blood Stool Leukocytes, Qual Random Vancomycin Digoxin C. difficile Tox B Gene COVID-19 (JESSY) COVID-19 Clin Com Influenza Type A (PCR) Influenza Type B (PCR) RSV RNA Qual (PCR) SARS-CoV-2 RNA (RT-PCR) Blood Type A Positive Antibody Screen NEGATIVE Crossmatch See Detail Airway Mallampati Class: III TM Dist: >3cm Neck ROM: Limited Loose/Missing/Broken Teeth: Yes, Upper and Lower Assessment and Plan Assessment Anesthesia Assessment: Chart Reviewed Final Anesthetic Review Family History of Problems with Anesthesia: Unobtainable History of Problems with Anesthesia: No (Patient denies prior anesthesia ) NPO: Yes ASA Class: IV and Emergency Final Preanesthetic Review: No Changes in Pt Med Stat, Meds/Allgs Chart Reviewed and Anes Risks/Benef Reviewed Patient Risk: High Procedure Risk: Low Anesthetic Plan Anesthetic Plan: MAC: Disposition: Inp. Admit - [facility]
--- NOTE | 2022-01-07 23:33 | P.PNGS_ITS ---
Subjective Subjective Date of Service: 01/07/22 Physical Exam Vital Signs: Vital Signs: Last Vital Signs Temp 99.9 F 01/07/22 19:43 Pulse 85 01/07/22 19:43 Resp 16 01/07/22 19:43 BP 91/49 L 01/07/22 19:43 Pulse Ox 98 01/07/22 19:43 Oxygen Flow Rate 3 12/30/21 13:00 BMI result Body Mass Index 40.9 Objective Data Active Medications Acetaminophen (Acetaminophen 325 Mg Tablet) 650 mg PO Q6H PRN PRN Reason: Fever Last Admin: 01/07/22 13:52 Dose: 650 mg Documented by: BROGilmer Amlodipine Besylate (Amlodipine Besylate 10 Mg Tablet) 10 mg PO DAILY [facility]; Protocol Last Admin: 01/07/22 11:07 Dose: 10 mg Documented by: DEBBIE Apixaban (Apixaban 5 Mg Tablet) 5 mg PO BID [facility] Last Admin: 01/07/22 22:33 Dose: Not Given Documented by: JONATAN Non-Admin Reason: possible or Atorvastatin Calcium (Atorvastatin Calcium 10 Mg Tablet) 10 mg PO DAILY [facility] Last Admin: 01/07/22 11:07 Dose: 10 mg Documented by: DEBBIE Digoxin (Digoxin 0.25 Mg Tablet) 0.25 mg PO DAILY [facility] Last Admin: 01/07/22 11:06 Dose: 0.25 mg Documented by: DEBBIE Haloperidol (Haloperidol 5 Mg Tablet) 5 mg PO BID [facility] Last Admin: 01/07/22 22:33 Dose: 5 mg Documented by: JONATAN Hydroxyzine HCl (Hydroxyzine Hcl 25 Mg Tablet) 25 mg PO QID [facility] Last Admin: 01/07/22 22:32 Dose: 25 mg Documented by: JONATAN Insulin Human Lispro (Insulin Lispro 100 Unit/Ml 3 Ml Vial) 0 unit SUBCUT QIDACHS [facility]; Protocol Last Admin: 01/07/22 22:33 Dose: Not Given Documented by: JONATAN Non-Admin Reason: No Insulin Coverage Metoprolol Tartrate (Metoprolol Tartrate 25 Mg Tablet) 75 mg PO BID [facility]; Protocol Last Admin: 01/07/22 22:34 Dose: Not Given Documented by: JONATAN Non-Admin Reason: low bp Metoprolol Tartrate (Metoprolol Tartrate 5 Mg/5 Ml Vial) 5 mg IVPUSH Q6H PRN PRN Reason: Heart Rate >100 Last Admin: 01/01/22 00:43 Dose: 5 mg Documented by: DOROTHY Morphine Sulfate (Morphine Sulfate 4 Mg/Ml Cartridge) 4 mg IVPUSH Q4H PRN; Protocol PRN Reason: Pain, Moderate (Pain Scale 4-6 Last Admin: 01/07/22 20:21 Dose: 4 mg Documented by: JONATAN Multivitamins/Vitamin C (Multivitamin Tablet) 1 tab PO DAILY [facility] Last Admin: 01/07/22 11:06 Dose: 1 tab Documented by: DEBBIE Nystatin (Nystatin Powder 15 Gm Bottle) 1 appl TOPICAL TID [facility]; Protocol Last Admin: 01/07/22 22:34 Dose: 1 appl Documented by: JONATAN Ondansetron HCl (Ondansetron Hcl 4 Mg/2 Ml Vial) 4 mg IVPUSH Q8H PRN PRN Reason: Nausea Last Admin: 01/04/22 02:38 Dose: 4 mg Documented by: JONATAN Pharmacy Consult (Consult Rx Perform Med Rec) 1 each MISCELLANE ONCE PRN PRN Reason: Consult order Sodium Chloride (0.9 % Sodium Chloride Flush 3 Ml Syringe) 3 ml IVFLUSH QSHIFT [facility] Last Admin: 01/07/22 16:44 Dose: 3 ml Documented by: DEBBIE Spironolactone (Spironolactone 25 Mg Tablet) 25 mg PO DAILY [facility]; Protocol Last Admin: 01/07/22 11:06 Dose: 25 mg Documented by: DEBBIE Labs CBC & Chem 7: 01/07/22 20:27 01/05/22 05:52 Labs: Laboratory Results - last 24 hr 01/07/22 01/07/22 01/07/22 07:15 11:05 15:46 POC Glucose 112 145 H 281 H Blood Type Antibody Screen Crossmatch 01/07/22 01/07/22 20:27 20:30 POC Glucose 127 H Blood Type A Positive Antibody Screen NEGATIVE Crossmatch See Detail Procedures Date of Service Date of Service: 01/07/22 Progress Note: A&P Assessment and plan (1) Sacral decubitus ulcer: Status: Acute Assessment and Plan: pt with large decubitus sacral wound - today had bedside debridement and wound vac changed. Since earlier it seems like she is bleeding from the vac area - significant amount of blood in the canister and leaking around. Pt also becoming a little more hypotensive. hand h done and a little lower but hgb still at 8 we discussed taking down the dressing and being prepared to deal with whatever is bleeding and after extensive discussion with nursing team, excavating supervisor, and administrators parking control officer it was decided we would urgently take her to the OR to take down the dressing and deal with bleeder and redress the wound as sary ropriate. OR allows for better visualization as well as equipment to address the issues. hospitalist on also agrees with plan to take pt to OR for evaluation and treatment. we will hold on any airway manipulation and just do some sedation as needed. all in agreement. Fall Risk Details Current Medications: Current Medications Acetaminophen (Acetaminophen 325 Mg Tablet) 650 mg PO Q6H PRN PRN Reason: Fever Last Admin: 01/07/22 13:52 Dose: 650 mg Documented by: Amlodipine Besylate (Amlodipine Besylate 10 Mg Tablet) 10 mg PO DAILY [facility]; Protocol Last Admin: 01/07/22 11:07 Dose: 10 mg Documented by: Apixaban (Apixaban 5 Mg Tablet) 5 mg PO BID [facility] Last Admin: 01/07/22 22:33 Dose: Not Given Documented by: Atorvastatin Calcium (Atorvastatin Calcium 10 Mg Tablet) 10 mg PO DAILY [facility] Last Admin: 01/07/22 11:07 Dose: 10 mg Documented by: Digoxin (Digoxin 0.25 Mg Tablet) 0.25 mg PO DAILY [facility] Last Admin: 01/07/22 11:06 Dose: 0.25 mg Documented by: Haloperidol (Haloperidol 5 Mg Tablet) 5 mg PO BID [facility] Last Admin: 01/07/22 22:33 Dose: 5 mg Documented by: Hydroxyzine HCl (Hydroxyzine Hcl 25 Mg Tablet) 25 mg PO QID [facility] Last Admin: 01/07/22 22:32 Dose: 25 mg Documented by: Insulin Human Lispro (Insulin Lispro 100 Unit/Ml 3 Ml Vial) 0 unit SUBCUT QIDACHS [facility]; Protocol Last Admin: 01/07/22 22:33 Dose: Not Given Documented by: Metoprolol Tartrate (Metoprolol Tartrate 25 Mg Tablet) 75 mg PO BID [facility]; Protocol Last Admin: 01/07/22 22:34 Dose: Not Given Documented by: Metoprolol Tartrate (Metoprolol Tartrate 5 Mg/5 Ml Vial) 5 mg IVPUSH Q6H PRN PRN Reason: Heart Rate >100 Last Admin: 01/01/22 00:43 Dose: 5 mg Documented by: Morphine Sulfate (Morphine Sulfate 4 Mg/Ml Cartridge) 4 mg IVPUSH Q4H PRN; Protocol PRN Reason: Pain, Moderate (Pain Scale 4-6 Last Admin: 01/07/22 20:21 Dose: 4 mg Documented by: Multivitamins/Vitamin C (Multivitamin Tablet) 1 tab PO DAILY [facility] Last Admin: 01/07/22 11:06 Dose: 1 tab Documented by: Nystatin (Nystatin Powder 15 Gm Bottle) 1 appl TOPICAL TID [facility]; Protocol Last Admin: 01/07/22 22:34 Dose: 1 appl Documented by: Ondansetron HCl (Ondansetron Hcl 4 Mg/2 Ml Vial) 4 mg IVPUSH Q8H PRN PRN Reason: Nausea Last Admin: 01/04/22 02:38 Dose: 4 mg Documented by: Pharmacy Consult (Consult Rx Perform Med Rec) 1 each MISCELLANE ONCE PRN PRN Reason: Consult order Sodium Chloride (0.9 % Sodium Chloride Flush 3 Ml [facility]) [facility] Admin: 01/07/22 16:44 Dose: 3 ml Documented by: Spironolactone (Spironolactone 25 Mg Tablet) 25 mg PO DAILY [facility]; Protocol Last Admin: 01/07/22 11:06 Dose: 25 mg Documented by: Time Spent With Patient Time: Total time spent is greater than 50% in coordination of care (as documented) at patient's floor/unit and/or counseling patient: Time with patient: Greater than 35 minutes Quality Stroke Does the patient have a stroke diagnosis?: No VTE Prior VTE?: No VTE Risk Level:: Medical - moderate - high VTE Device Contraindication: Treatment Not Indicated VTE Drug Contraindication: N/A - Med Ordered
[2022-01-08] VITALS (12 sets, daily range): BP systolic 89–104; BP diastolic 30–69; PULSE 78–102; RESP 18–20; TEMP 36.6–37.4; O2SAT 94–100; BMI 42.0
--- NOTE | 2022-01-08 00:48 | W.PM.OPN ---
Operative Note Operative Note Date of Service: 01/07/22 Narrative: pt went to the OR for dressing change. had bedside debridement and wound vac placed earlier in the day but then nursing noted cannister full of blood and bleeding through the sponge and onto the bed. decided to explore in the OR preop - wound bleeding postop - bleeding vesse procedure - removal of wound vac, evacuation of hematoma and clipped blood vessel findings - pt rolled on side the dressigns were taken down and a large amount of blood clot removed and on the right side it was noted an actively bleeding vessel which was clipped with metal clipper x2. there was still some moderate necrotic tissue but also healthier granulation tissue superficially. pt received no significant annesthesia for the procedure. wet dressing then applied and secured with tape and mesh panties. plan to reeval tomorrow at bedside
--- NOTE | 2022-01-08 00:50 | PM.PROC ---
Brief Operative Note Date of procedure: 01/08/22 Pre-op diagnosis: bleeding wound Procedure: evacuation of hematoma, clipping of blood vessel and repack with gauze Surgeon: Mell Jain Estimated blood loss (mL): 5 Pathology: none sent Condition: stable Disposition: PACU
[2022-01-08] MEDS: Morphine Sulfate 4 MG/ML CARTRIDGE IVPUSH ×2 (03:27→20:43)
[2022-01-08] MEDS: Lactated Ringers 1,000 ML 999 ML IV (05:44)
[2022-01-08 07:31] LABS: Glucose, Whole Blood 156 mg/dL (60-115)
--- NOTE | 2022-01-08 07:42 | PC.NURSE ---
On initial assessment, patient had excessive bloody drainage at wound vac site. Surgeon notified and decision was made to take patient to OR. Patient c/o pain at site, wound vac reinforced pressure dressing applied.Administered Morphine 4 mg IV for pain relief. VSS , BP trending down. H/H and type and screen ordered. Patient went to OR reported to have hematoma with bleeding vessel that was clipped. When pt returned from OR dressing without wound vac covering wound. Patient's BP continued to run low. Hgb 8.2, Hct 27.8. Hospitalist ordered 1 unit of PRBC S , and 1L bolus of LR . Patient received and following and BP is now 93/33. Resting comfortably at present, 1:1 sitter at bedside for safety. Will continue to monitor and report any changes.
[2022-01-08] MEDS: Digoxin 0.25 MG TABLET PO (07:49)
[2022-01-08] MEDS: Nystatin Powder 15 GM BOTTLE 1 APPL TOPICAL ×3 (07:49→20:45)
[2022-01-08] MEDS: hydrOXYzine HCL 25 MG TABLET PO ×4 (07:49→20:43)
[2022-01-08] MEDS: Insulin Lispro 100 UNIT/ML 3 ML VIAL SUBCUT ×4 (07:49→20:44)
[2022-01-08] MEDS: 0.9 % Sodium Chloride Flush 3 ML SYRINGE IVFLUSH ×3 (07:50→20:43)
[2022-01-08] MEDS: Atorvastatin Calcium 10 MG TABLET PO (07:50)
[2022-01-08] MEDS: Multivitamin TABLET 1 TAB PO (07:50)
[2022-01-08] MEDS: HaloperidoL 5 MG TABLET PO ×2 (07:50→20:44)
[2022-01-08 07:53] LABS: Basophils Absolute Auto 0.1 X10*3/uL (0.0-0.2); Basophils Percent Auto 0.3 % (0-2); Eosinophils Percent Auto 0.1 % (0-4); Hematocrit 24.8 % (37.0-47.0); Hemoglobin 7.6 g/dl (12.0-16.0); Imm Gran Abs Auto 0.93 X10*3/uL (0.00-0.03); Imm Gran Pct Auto 3.2 % (0.0-0.4); Lymphocytes Absolute Auto 2.3 X10*3/uL (1.2-4.9); Lymphocytes Percent Auto 7.8 % (20-40); MANUAL DIFF FLAG SCAN; Mean Corpuscular HGB Conc 30.6 g/dl (31.0-35.0); Mean Corpuscular Hemoglobin 24.6 pg (27.0-33.0); Mean Corpuscular Volume 80.3 fL (80.0-98.0); Mean Platelet Volume 9.8 fL (9.4-12.3); Monocytes Percent Auto 6.7 % (2-11); NRBC Pct Auto 0.1 /100WBC (0.0-0.2); Neutrophils Percent Auto 81.9 % (45-73); Platelet Count 399 X10*3/uL (160-400); Red Blood Count 3.09 X10*6/uL (4.20-5.50); Red Cell Distribution Width 25.7 % (11.0-16.0); SCAN SMEAR FLAG 1; White Blood Count 29.3 X10*3/uL (4.8-10.8)
[2022-01-08 08:24] LABS: Alanine Aminotransferase 29 U/L (0-31); Alkaline Phosphatase 68 U/L (39-117); Anion Gap 14 (12-20); Aspartate Amino Transferase 48 U/L (5-31); Bilirubin Total 1.1 mg/dL (0.0-1.0); Blood Urea Nitrogen 17 mg/dL (9-16); Calcium 7.7 mg/dL (8.4-10.2); Carbon Dioxide 32 mmol/L (22-29); Chloride 96 mmol/L (96-108); Estimated Glomerular Filt Rate 58; Glucose Fasting 167 mg/dL (60-99); Potassium 4.4 mmol/L (3.3-5.1); Sodium 138 mmol/L (135-145); Total Protein 4.2 g/dL (6.5-8.0)
[2022-01-08 08:31] LABS: SLIDE REVIEW VERIFIED
[2022-01-08 11:06] LABS: Glucose, Whole Blood 175 mg/dL (60-115)
--- NOTE | 2022-01-08 15:27 | HO.PM.IMPN ---
Subjective Subjective Date of Service: 01/08/22 Interval History: no acute issues overnight. Noted to have what looks like stool and wound VAC Review of Systems unable to obtain Physical Exam Vital Signs: Vital Signs: Last Vital Signs Temp 98.6 F 01/08/22 10:47 Pulse 84 01/08/22 10:47 Resp 20 01/08/22 10:47 BP 104/53 L 01/08/22 10:47 Pulse Ox 98 01/08/22 10:47 Oxygen Flow Rate 3 12/30/21 13:00 BMI result Body Mass Index 42.0 Const: Other: confused no acute distress Resp: Other: clear to auscultation bilaterally no rales rhonchi wheezes Cardio: Other: no S4; positive S1-S2 no S3 murmur subcu gout GI: Other: soft nontender nondistended with normal bowel sounds Skin: Other: see wound care notes for sacral decubitus details Extrem: Other: no edema bilaterally Objective Data Active Medications Acetaminophen (Acetaminophen 325 Mg Tablet) 650 mg PO Q6H PRN PRN Reason: Fever Last Admin: 01/07/22 13:52 Dose: 650 mg Documented by: DEBBIE Amlodipine Besylate (Amlodipine Besylate 10 Mg Tablet) 10 mg PO DAILY [facility]; Protocol Last Admin: 01/08/22 07:50 Dose: Not Given Documented by: NOREEN Non-Admin Reason: BP SOFT Apixaban (Apixaban 5 Mg Tablet) 5 mg PO BID [facility] Last Admin: 01/08/22 07:51 Dose: Not Given Documented by: NOREEN Non-Admin Reason: BLEEDING Atorvastatin Calcium (Atorvastatin Calcium 10 Mg Tablet) 10 mg PO DAILY [facility] Last Admin: 01/08/22 07:50 Dose: 10 mg Documented by: NOREEN Digoxin (Digoxin 0.25 Mg Tablet) 0.25 mg PO DAILY [facility] Last Admin: 01/08/22 07:49 Dose: 0.25 mg Documented by: NOREEN Haloperidol (Haloperidol 5 Mg Tablet) 5 mg PO BID [facility] Last Admin: 01/08/22 07:50 Dose: 5 mg Documented by: NOREEN Hydroxyzine HCl (Hydroxyzine Hcl 25 Mg Tablet) 25 mg PO QID [facility] Last Admin: 01/08/22 12:15 Dose: 25 mg Documented by: NOREEN Insulin Human Lispro (Insulin Lispro 100 Unit/Ml 3 Ml Vial) 0 unit SUBCUT QIDACHS [facility]; Protocol Last Admin: 01/08/22 11:19 Dose: 4 unit Documented by: NOREEN Metoprolol Tartrate (Metoprolol Tartrate 25 Mg Tablet) 75 mg PO BID [facility]; Protocol Last Admin: 01/08/22 07:50 Dose: Not Given Documented by: NOREEN Non-Admin Reason: BP SOFT Metoprolol Tartrate (Metoprolol Tartrate 5 Mg/5 Ml Vial) 5 mg IVPUSH Q6H PRN PRN Reason: Heart Rate >100 Last Admin: 01/01/22 00:43 Dose: 5 mg Documented by: DOROTHY Morphine Sulfate (Morphine Sulfate 4 Mg/Ml Cartridge) 4 mg IVPUSH Q4H PRN; Protocol PRN Reason: Pain, Moderate (Pain Scale 4-6 Last Admin: 01/08/22 03:27 Dose: 4 mg Documented by: JONATAN Multivitamins/Vitamin C (Multivitamin Tablet) 1 tab PO DAILY [facility] Last Admin: 01/08/22 07:50 Dose: 1 tab Documented by: NOREEN Nystatin (Nystatin Powder 15 Gm Bottle) 1 appl TOPICAL TID [facility]; Protocol Last Admin: 01/08/22 12:15 Dose: 1 appl Documented by: NOREEN Ondansetron HCl (Ondansetron Hcl 4 Mg/2 Ml Vial) 4 mg IVPUSH Q8H PRN PRN Reason: Nausea Last Admin: 01/04/22 02:38 Dose: 4 mg Documented by: JONATAN Pharmacy Consult (Consult Rx Perform Med Rec) 1 each MISCELLANE ONCE PRN PRN Reason: Consult order Sodium Chloride (0.9 % Sodium Chloride Flush 3 Ml Syringe) 3 ml IVFLUSH QSHIFT [facility] Last Admin: 01/08/22 14:02 Dose: 3 ml Documented by: NOREEN Spironolactone (Spironolactone 25 Mg Tablet) 25 mg PO DAILY [facility]; Protocol Last Admin: 01/08/22 07:51 Dose: Not Given Documented by: NOREEN Non-Admin Reason: BP SOFT Labs CBC & Chem 7: 01/08/22 07:00 01/08/22 07:00 Labs: Laboratory Results - last 24 hr 01/07/22 01/07/22 01/07/22 15:46 20:27 20:30 MCV MCH MCHC RDW Plt Count MPV Immature Gran % (Auto) Neut % (Auto) Lymph % (Auto) [place] % (Auto) Eos % (Auto) Baso % (Auto) Lymph # (Auto) [place] # (Auto) Eos # (Auto) Baso # (Auto) Abs Immat Gran (auto) Absolute Neuts (auto) Absolute Nucleated RBC Nucleated RBC % (auto) Smear Tech's Comments Anion Gap Estim Creat Clear Calc Estimated GFR POC Glucose 281 H 127 H Fasting Glucose Calcium Total Bilirubin AST ALT Alkaline Phosphatase Total Protein Albumin Blood Type A Positive Antibody Screen NEGATIVE Crossmatch See Detail 01/08/22 01/08/22 01/08/22 07:00 07:00 07:03 MCV 80.3 MCH 24.6 L MCHC 30.6 L RDW 25.7 H Plt Count 399 MPV 9.8 Immature Gran % (Auto) 3.2 H Neut % (Auto) 81.9 H Lymph % (Auto) 7.8 L [place] % (Auto) 6.7 Eos % (Auto) 0.1 Baso % (Auto) 0.3 Lymph # (Auto) 2.3 [place] # (Auto) 2.0 H Eos # (Auto) 0.0 Baso # (Auto) 0.1 Abs Immat Gran (auto) 0.93 H Absolute Neuts (auto) 24.0 H Absolute Nucleated RBC 0.020 H Nucleated RBC % (auto) 0.1 Smear Tech's Comments VERIFIED Anion Gap 14 Estim Creat Clear Calc 74.0 Estimated GFR 58 POC Glucose 156 H Fasting Glucose 167 H Calcium 7.7 L Total Bilirubin 1.1 H AST 48 H D ALT 29 Alkaline Phosphatase 68 Total Protein 4.2 L Albumin 2.0 L Blood Type Antibody Screen Crossmatch 01/08/22 10:59 MCV MCH MCHC RDW Plt Count MPV Immature Gran % (Auto) Neut % (Auto) Lymph % (Auto) [place] % (Auto) Eos % (Auto) Baso % (Auto) Lymph # (Auto) [place] # (Auto) Eos # (Auto) Baso # (Auto) Abs Immat Gran (auto) Absolute Neuts (auto) Absolute Nucleated RBC Nucleated RBC % (auto) Smear Tech's Comments Anion Gap Estim Creat Clear Calc Estimated GFR POC Glucose 175 H Fasting Glucose Calcium Total Bilirubin AST ALT Alkaline Phosphatase Total Protein Albumin Blood Type Antibody Screen Crossmatch Assessment and Plan (1) Sacral decubitus ulcer: Status: Acute (2) Acute on chronic diastolic (congestive) heart failure: Status: Acute Plan 66-year-old F sent in from [facility], PMHx of alcoholic cirrhosis, dementia, schizoaffective disorder admitted for acute?exacerbation of underlying congestive heart failure further complicated by AF/RVR, COPD exacerbation and development of angioedema requiring intubation for ventilatory support on 11/27 extubated 11/29.? 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 Discussed with surgeon this a.m.; wishes to present plan to team. Will continue current therapies as ordered - pending discussion pain meds as ordered 2. HFpEF, [id number] - continue metoprolol + spironolactone - good response to diuresis; BNP [phone] 3.Paroxysmal Atrial FibriLATION - NSR this am - continue metoprolol/ digoxin - anticoagulated with apixaban 4. HTN -acceptable control on current therapies -metoprolol/spironolactone/amlodipine 5. DMII - acceptable control on current therapies - correction-dose lispro 6.Schizoaffective disorder - restarted haloperidol - add back Hydroxyzine - moving back to baseline [facility] updated # VTE ppx - apixaban Quality Stroke Does the patient have a stroke diagnosis?: No VTE Prior VTE?: No VTE Risk Level:: Medical - moderate - high VTE Device Contraindication: Treatment Not Indicated VTE Drug Contraindication: N/A - Med Ordered
[2022-01-08 15:52] LABS: Glucose, Whole Blood 247 mg/dL (60-115)
--- NOTE | 2022-01-08 16:20 | P.PNGS_ITS ---
Subjective Subjective Date of Service: 01/08/22 Patient reports: still having pain Physical Exam Vital Signs: Vital Signs: Last Vital Signs Temp 98.7 F 01/08/22 15:26 Pulse 89 01/08/22 15:26 Resp 19 01/08/22 15:26 BP 104/53 L 01/08/22 10:47 Pulse Ox 98 01/08/22 15:26 Oxygen Flow Rate 3 12/30/21 13:00 BMI result Body Mass Index 42.0 Objective Data Active Medications Acetaminophen (Acetaminophen 325 Mg Tablet) 650 mg PO Q6H PRN PRN Reason: Fever Last Admin: 01/07/22 13:52 Dose: 650 mg Documented by: DOBROGilmer Amlodipine Besylate (Amlodipine Besylate 10 Mg Tablet) 10 mg PO DAILY [facility]; Protocol Last Admin: 01/08/22 07:50 Dose: Not Given Documented by: NOREEN Non-Admin Reason: BP SOFT Apixaban (Apixaban 5 Mg Tablet) 5 mg PO BID [facility] Last Admin: 01/08/22 07:51 Dose: Not Given Documented by: NOREEN Non-Admin Reason: BLEEDING Atorvastatin Calcium (Atorvastatin Calcium 10 Mg Tablet) 10 mg PO DAILY [facility] Last Admin: 01/08/22 07:50 Dose: 10 mg Documented by: NOREEN Digoxin (Digoxin 0.25 Mg Tablet) 0.25 mg PO DAILY [facility] Last Admin: 01/08/22 07:49 Dose: 0.25 mg Documented by: NOREEN Haloperidol (Haloperidol 5 Mg Tablet) 5 mg PO BID [facility] Last Admin: 01/08/22 07:50 Dose: 5 mg Documented by: NOREEN Hydroxyzine HCl (Hydroxyzine Hcl 25 Mg Tablet) 25 mg PO QID [facility] Last Admin: 01/08/22 16:18 Dose: 25 mg Documented by: NOREEN Insulin Human Lispro (Insulin Lispro 100 Unit/Ml 3 Ml Vial) 0 unit SUBCUT QIDACHS [facility]; Protocol Last Admin: 01/08/22 16:18 Dose: 8 unit Documented by: NOREEN Metoprolol Tartrate (Metoprolol Tartrate 25 Mg Tablet) 75 mg PO BID [facility]; Protocol Last Admin: 01/08/22 07:50 Dose: Not Given Documented by: NOREEN Non-Admin Reason: BP SOFT Metoprolol Tartrate (Metoprolol Tartrate 5 Mg/5 Ml Vial) 5 mg IVPUSH Q6H PRN PRN Reason: Heart Rate >100 Last Admin: 01/01/22 00:43 Dose: 5 mg Documented by: DOROTHY Morphine Sulfate (Morphine Sulfate 4 Mg/Ml Cartridge) 4 mg IVPUSH Q4H PRN; Prot ocol PRN Reason: Pain, Moderate (Pain Scale 4-6 Last Admin: 01/08/22 03:27 Dose: 4 mg Documented by: JONATAN Multivitamins/Vitamin C (Multivitamin Tablet) 1 tab PO DAILY [facility] Last Admin: 01/08/22 07:50 Dose: 1 tab Documented by: NOREEN Nystatin (Nystatin Powder 15 Gm Bottle) 1 appl TOPICAL TID [facility]; Protocol Last Admin: 01/08/22 12:15 Dose: 1 appl Documented by: NOREEN Ondansetron HCl (Ondansetron Hcl 4 Mg/2 Ml Vial) 4 mg IVPUSH Q8H PRN PRN Reason: Nausea Last Admin: 01/04/22 02:38 Dose: 4 mg Documented by: JONATAN Pharmacy Consult (Consult Rx Perform Med Rec) 1 each MISCELLANE ONCE PRN PRN Reason: Consult order Sodium Chloride (0.9 % Sodium Chloride Flush 3 Ml Syringe) 3 ml IVFLUSH QSHIFT [facility] Last Admin: 01/08/22 14:02 Dose: 3 ml Documented by: NOREEN Spironolactone (Spironolactone 25 Mg Tablet) 25 mg PO DAILY [facility]; Protocol Last Admin: 01/08/22 07:51 Dose: Not Given Documented by: NOREEN Non-Admin Reason: BP SOFT Labs CBC & Chem 7: 01/08/22 07:00 01/08/22 07:00 Labs: Laboratory Results - last 24 hr 01/07/22 01/07/22 01/08/22 20:27 20:30 07:00 MCV 80.3 MCH 24.6 L MCHC 30.6 L RDW 25.7 H Plt Count 399 MPV 9.8 Immature Gran % (Auto) 3.2 H Neut % (Auto) 81.9 H Lymph % (Auto) 7.8 L [place] % (Auto) 6.7 Eos % (Auto) 0.1 Baso % (Auto) 0.3 Lymph # (Auto) 2.3 [place] # (Auto) 2.0 H Eos # (Auto) 0.0 Baso # (Auto) 0.1 Abs Immat Gran (auto) 0.93 H Absolute Neuts (auto) 24.0 H Absolute Nucleated RBC 0.020 H Nucleated RBC % (auto) 0.1 Smear Tech's Comments VERIFIED Anion Gap Estim Creat Clear Calc Estimated GFR POC Glucose 127 H Fasting Glucose Calcium Total Bilirubin AST ALT Alkaline Phosphatase Total Protein Albumin Blood Type A Positive Antibody Screen NEGATIVE Crossmatch See Detail 01/08/22 01/08/22 01/08/22 07:00 07:03 10:59 MCV MCH MCHC RDW Plt Count MPV Immature Gran % (Auto) Neut % (Auto) Lymph % (Auto) [place] % (Auto) Eos % (Auto) Baso % (Auto) Lymph # (Auto) [place] # (Auto) Eos # (Auto) Baso # (Auto) Abs Immat Gran (auto) Absolute Neuts (auto) Absolute Nucleated RBC Nucleated RBC % (auto) Smear Tech's Comments Anion Gap 14 Estim Creat Clear Calc 74.0 Estimated GFR 58 POC Glucose 156 H 175 H Fasting Glucose 167 H Calcium 7.7 L Total Bilirubin 1.1 H AST 48 H D ALT 29 Alkaline Phosphatase 68 Total Protein 4.2 L Albumin 2.0 L Blood Type Antibody Screen Crossmatch 01/08/22 15:30 MCV MCH MCHC RDW Plt Count MPV Immature Gran % (Auto) Neut % (Auto) Lymph % (Auto) [place] % (Auto) Eos % (Auto) Baso % (Auto) Lymph # (Auto) [place] # (Auto) Eos # (Auto) Baso # (Auto) Abs Immat Gran (auto) Absolute Neuts (auto) Absolute Nucleated RBC Nucleated RBC % (auto) Smear Tech's Comments Anion Gap Estim Creat Clear Calc Estimated GFR POC Glucose 247 H Fasting Glucose Calcium Total Bilirubin AST ALT Alkaline Phosphatase Total Protein Albumin Blood Type Antibody Screen Crossmatch Progress Note: A&P Fall Risk Details Current Medications: Current Medications Acetaminophen (Acetaminophen 325 Mg Tablet) 650 mg PO Q6H PRN PRN Reason: Fever Last Admin: 01/07/22 13:52 Dose: 650 mg Documented by: Amlodipine Besylate (Amlodipine Besylate 10 Mg Tablet) 10 mg PO DAILY [facility]; Protocol Last Admin: 01/08/22 07:50 Dose: Not Given Documented by: Apixaban (Apixaban 5 Mg Tablet) 5 mg PO BID [facility] Last Admin: 01/08/22 07:51 Dose: Not Given Documented by: Atorvastatin Calcium (Atorvastatin Calcium 10 Mg Tablet) 10 mg PO DAILY [facility] Last Admin: 01/08/22 07:50 Dose: 10 mg Documented by: Digoxin (Digoxin 0.25 Mg Tablet) 0.25 mg PO DAILY [facility] Last Admin: 01/08/22 07:49 Dose: 0.25 mg Documented by: Haloperidol (Haloperidol 5 Mg Tablet) 5 mg PO BID [facility] Last Admin: 01/08/22 07:50 Dose: 5 mg Documented by: Hydroxyzine HCl (Hydroxyzine Hcl 25 Mg Tablet) 25 mg PO QID [facility] Last Admin: 01/08/22 16:18 Dose: 25 mg Documented by: Insulin Human Lispro (Insulin Lispro 100 Unit/Ml 3 Ml Vial) 0 unit SUBCUT QIDACHS [facility]; Protocol Last Admin: 01/08/22 16:18 Dose: 8 unit Documented by: Metoprolol Tartrate (Metoprolol Tartrate 25 Mg Tablet) 75 mg PO BID [facility]; Protocol Last Admin: 01/08/22 07:50 Dose: Not Given Documented by: Metoprolol Tartrate (Metoprolol Tartrate 5 Mg/5 Ml Vial) 5 mg IVPUSH Q6H PRN PRN Reason: Heart Rate >100 Last Admin: 01/01/22 00:43 Dose: 5 mg Documented by: Morphine Sulfate (Morphine Sulfate 4 Mg/Ml Cartridge) 4 mg IVPUSH Q4H PRN; Protocol PRN Reason: Pain, Moderate (Pain Scale 4-6 Last Admin: 01/08/22 03:27 Dose: 4 mg Documented by: Multivitamins/Vitamin C (Multivitamin Tablet) 1 tab PO DAILY [facility] Last Admin: 01/08/22 07:50 Dose: 1 tab Documented by: Nystatin (Nystatin Powder 15 Gm Bottle) 1 appl TOPICAL TID [facility]; Protocol Last Admin: 01/08/22 12:15 Dose: 1 appl Documented by: Ondansetron HCl (Ondansetron Hcl 4 Mg/2 Ml Vial) 4 mg IVPUSH Q8H PRN PRN Reason: Nausea Last Admin: 01/04/22 02:38 Dose: 4 mg Documented by: Pharmacy Consult (Consult Rx Perform Med Rec) 1 each MISCELLANE ONCE PRN PRN Reason: Consult order Sodium Chloride (0.9 % Sodium Chloride Flush 3 Ml Syringe) 3 ml IVFLUSH QSHIFT [facility] Last Admin: 01/08/22 14:02 Dose: 3 ml Documented by: Spironolactone (Spironolactone 25 Mg Tablet) 25 mg PO DAILY [facility]; Protocol Last Admin: 01/08/22 07:51 Dose: Not Given Documented by: Time Spent With Patient Time: Total time spent is greater than 50% in coordination of care (as documented) at patient's floor/unit and/or counseling patient: Quality Stroke Does the patient have a stroke diagnosis?: No VTE Prior VTE?: No VTE Risk Level:: Medical - moderate - high VTE Device Contraindication: Treatment Not Indicated VTE Drug Contraindication: N/A - Med Ordered
[2022-01-08 20:13] LABS: Glucose, Whole Blood 161 mg/dL (60-115)
[2022-01-08] MEDS: Metoprolol Tartrate 25 MG TABLET 75 MG PO (20:43)
[2022-01-08] MEDS: Apixaban 5 MG TABLET PO (20:44)
[2022-01-09] VITALS (13 sets, daily range): BP systolic 88–115; BP diastolic 30–68; PULSE 57–76; RESP 17–20; TEMP 36.5–37.1; O2SAT 92–100
[2022-01-09] MEDS: Morphine Sulfate 4 MG/ML CARTRIDGE IVPUSH ×4 (03:29→23:14)
[2022-01-09] MEDS: 0.9 % Sodium Chloride 1,000 ML 999 ML IV (04:39)
[2022-01-09 04:40] LABS: Basophils Absolute Auto 0.1 X10*3/uL (0.0-0.2); Basophils Percent Auto 0.4 % (0-2); Eosinophils Absolute Auto 0.2 X10*3/uL (0.0-0.4); Eosinophils Percent Auto 0.6 % (0-4); Imm Gran Abs Auto 0.78 X10*3/uL (0.00-0.03); Imm Gran Pct Auto 3.1 % (0.0-0.4); Lymphocytes Absolute Auto 2.4 X10*3/uL (1.2-4.9); Lymphocytes Percent Auto 9.4 % (20-40); MANUAL DIFF FLAG SCAN; Mean Corpuscular HGB Conc 30.4 g/dl (31.0-35.0); Mean Corpuscular Hemoglobin 24.2 pg (27.0-33.0); Mean Corpuscular Volume 79.7 fL (80.0-98.0); Mean Platelet Volume 9.6 fL (9.4-12.3); Monocytes Absolute Auto 2.3 X10*3/uL (0.1-1.2); Monocytes Percent Auto 9.2 % (2-11); NRBC Pct Auto 0.1 /100WBC (0.0-0.2); Neutrophils Absolute Auto 19.7 x10*3/uL (2.0-8.3); Neutrophils Percent Auto 77.3 % (45-73); Platelet Count 378 X10*3/uL (160-400); Red Blood Count 2.81 X10*6/uL (4.20-5.50); Red Cell Distribution Width 26.5 % (11.0-16.0); SCAN SMEAR FLAG 1; White Blood Count 25.5 X10*3/uL (4.8-10.8)
[2022-01-09 04:46] LABS: Hematocrit 22.4 % (37.0-47.0); Hemoglobin 6.8 g/dl (12.0-16.0)
--- NOTE | 2022-01-09 04:49 | PM.EVENT ---
Event Note Date of Service: 01/09/22 Event Note: Patient hypotensive with no other abnormal vitals. H&H checked showed hemoglobin of 6.8. Patient receiving 1 unit of PRBC as well as 1 unit of LR. Evidence of active bleed Hypotension likely secondary to acute anemia
[2022-01-09 05:01] LABS: SLIDE REVIEW VERIFIED
[2022-01-09] MEDS: Lactated Ringers 1,000 ML 999 ML IV (05:40)
--- NOTE | 2022-01-09 06:03 | PC.NURSE ---
Around 03:50 it was noted that patient's blood pressure was low 68/41byu machine and 57/35 manually. Overnight hospitalist was notified and ordered Normal saline to be bolused along with a CBC blood draw. A critical hemoglobin came back at 6.8 and a low hematocrit at 22.4.Once again hospitalist notified and an order for 1 unit RBC was placed. Because blood band wasn't on patient a new cross and type screen had to be done so 1L Lacerated ringers was ordered. Blood pressures taken every 15 minutes and 91/53 was most recent bp.
[2022-01-09 07:12] LABS: Basophils Absolute Auto 0.1 X10*3/uL (0.0-0.2); Basophils Percent Auto 0.3 % (0-2); Eosinophils Absolute Auto 0.2 X10*3/uL (0.0-0.4); Eosinophils Percent Auto 0.9 % (0-4); Imm Gran Pct Auto 3.8 % (0.0-0.4); Lymphocytes Absolute Auto 2.6 X10*3/uL (1.2-4.9); Lymphocytes Percent Auto 10.9 % (20-40); MANUAL DIFF FLAG SCAN; Mean Corpuscular HGB Conc 31.1 g/dl (31.0-35.0); Mean Corpuscular Hemoglobin 24.7 pg (27.0-33.0); Mean Corpuscular Volume 79.5 fL (80.0-98.0); Mean Platelet Volume 9.5 fL (9.4-12.3); Monocytes Absolute Auto 2.1 X10*3/uL (0.1-1.2); Monocytes Percent Auto 8.8 % (2-11); NRBC Pct Auto 0.1 /100WBC (0.0-0.2); Neutrophils Percent Auto 75.3 % (45-73); Platelet Count 354 X10*3/uL (160-400); Red Blood Count 2.63 X10*6/uL (4.20-5.50); Red Cell Distribution Width 27.1 % (11.0-16.0); SCAN SMEAR FLAG 1; White Blood Count 23.9 X10*3/uL (4.8-10.8)
[2022-01-09 07:21] LABS: Glucose, Whole Blood 120 mg/dL (60-115)
[2022-01-09 07:22] LABS: Alanine Aminotransferase 55 U/L (0-31); Albumin Level 1.8 g/dL (3.5-5.0); Alkaline Phosphatase 70 U/L (39-117); Aspartate Amino Transferase 57 U/L (5-31); Bilirubin Total 0.9 mg/dL (0.0-1.0); Blood Urea Nitrogen 20 mg/dL (9-16); Creatinine Clr Calc Pharmacy 113.5; Estimated Glomerular Filt Rate > 60; Glucose Fasting 119 mg/dL (60-99)
[2022-01-09 07:33] LABS: Anion Gap 10 (12-20); Calcium 7.3 mg/dL (8.4-10.2); Carbon Dioxide 30 mmol/L (22-29); Chloride 99 mmol/L (96-108); Potassium 4.1 mmol/L (3.3-5.1); Sodium 135 mmol/L (135-145)
[2022-01-09 07:59] LABS: Hematocrit 20.9 % (37.0-47.0); Hemoglobin 6.5 g/dl (12.0-16.0)
[2022-01-09] MEDS: 0.9 % Sodium Chloride 500 ML IV (09:27)
[2022-01-09] MEDS: 0.9 % Sodium Chloride Flush 3 ML SYRINGE IVFLUSH ×2 (09:30→21:07)
[2022-01-09 10:59] LABS: Glucose, Whole Blood 136 mg/dL (60-115)
[2022-01-09] MEDS: Piperacillin Sodium/Tazobactam 4.5 GM in 0.9 % Sodium Chloride 100 ML IV ×2 (12:10→17:41)
[2022-01-09] MEDS: Metoprolol Tartrate 25 MG TABLET 75 MG PO ×2 (12:13→21:05)
[2022-01-09] MEDS: Atorvastatin Calcium 10 MG TABLET PO (12:13)
[2022-01-09] MEDS: Spironolactone 25 MG TABLET PO (12:13)
[2022-01-09] MEDS: amLODIPine Besylate 10 MG TABLET PO (12:13)
[2022-01-09] MEDS: Multivitamin TABLET 1 TAB PO (12:13)
[2022-01-09] MEDS: Digoxin 0.25 MG TABLET PO (12:13)
[2022-01-09] MEDS: hydrOXYzine HCL 25 MG TABLET PO ×2 (12:13→21:05)
[2022-01-09] MEDS: Apixaban 5 MG TABLET PO ×2 (12:13→21:05)
[2022-01-09] MEDS: HaloperidoL 5 MG TABLET PO ×2 (12:13→21:05)
[2022-01-09] MEDS: Nystatin Powder 15 GM BOTTLE 1 APPL TOPICAL ×3 (12:18→21:07)
[2022-01-09] MEDS: Albumin Human 25 % 100 ML IV ×3 (12:20→21:05)
--- NOTE | 2022-01-09 12:36 | P.PNIM_ITS ---
Subjective Subjective Date of Service: 01/09/22 Interval History: relative hypotension overnight; less responsive today Review of Systems unable to obtain Physical Exam Vital Signs: Vital Signs: Last Vital Signs Temp 98.1 F 01/09/22 11:11 Pulse 70 01/09/22 10:55 Resp 18 01/09/22 11:11 BP 102/33 L 01/09/22 11:11 Pulse Ox 98 01/09/22 07:30 Oxygen Flow Rate 3 12/30/21 13:00 BMI result Body Mass Index 42.0 Const: Other: confused no acute distress Resp: Other: clear to auscultation bilaterally no rales rhonchi wheezes Cardio: Other: no S4; positive S1-S2 no S3 murmur subcu gout GI: Other: soft nontender nondistended with normal bowel sounds Skin: Other: see wound care notes for sacral decubitus details Extrem: Other: no edema bilaterally Objective Data Active Medications Acetaminophen (Acetaminophen 325 Mg Tablet) 650 mg PO Q6H PRN PRN Reason: Fever Last Admin: 01/07/22 13:52 Dose: 650 mg Documented by: DEBBIE Amlodipine Besylate (Amlodipine Besylate 10 Mg Tablet) 10 mg PO DAILY [facility]; Protocol Last Admin: 01/09/22 12:13 Dose: 10 mg Documented by: VERONICA Apixaban (Apixaban 5 Mg Tablet) 5 mg PO BID [facility] Last Admin: 01/09/22 12:13 Dose: 5 mg Documented by: VERONICA Atorvastatin Calcium (Atorvastatin Calcium 10 Mg Tablet) 10 mg PO DAILY [facility] Last Admin: 01/09/22 12:13 Dose: 10 mg Documented by: VERONICA Digoxin (Digoxin 0.25 Mg Tablet) 0.25 mg PO DAILY [facility] Last Admin: 01/09/22 12:13 Dose: 0.25 mg Documented by: VERONICA Haloperidol (Haloperidol 5 Mg Tablet) 5 mg PO BID [facility] Last Admin: 01/09/22 12:13 Dose: 5 mg Documented by: VERONICA Hydroxyzine HCl (Hydroxyzine Hcl 25 Mg Tablet) 25 mg PO QID [facility] Last Admin: 01/09/22 12:20 Dose: Not Given Documented by: VERONICA Non-Admin Reason: too close to previous dose, patient taken lat Piperacillin Sod/Tazobactam (Sod 4.5 gm/ Sodium Chloride) 100 mls @ 200 mls/hr IV Q6H [facility] Last Admin: 01/09/22 12:10 Dose: 200 mls/hr Documented by: VERONICA Albumin Human (Kedbumin 25 %) 100 mls @ 100 mls/hr IV Q6H [facility] Stop: 01/10/22 03:59 Last Admin: 01/09/22 12:20 Dose: 100 mls/hr Documented by: VERONICA Insulin Human Lispro (Insulin Lispro 100 Unit/Ml 3 Ml Vial) 0 unit SUBCUT QIDACHS [facility]; Protocol Last Admin: 01/09/22 11:20 Dose: Not Given Documented by: VERONICA Non-Admin Reason: No Insulin Coverage Metoprolol Tartrate (Metoprolol Tartrate 25 Mg Tablet) 75 mg PO BID [facility]; Protocol Last Admin: 01/09/22 12:13 Dose: 75 mg Documented by: VERONCIA Metoprolol Tartrate (Metoprolol Tartrate 5 Mg/5 Ml Vial) 5 mg IVPUSH Q6H PRN PRN Reason: Heart Rate >100 Last Admin: 01/01/22 00:43 Dose: 5 mg Documented by: DOROTHY Morphine Sulfate (Morphine Sulfate 4 Mg/Ml Cartridge) 4 mg IVPUSH Q4H PRN; Protocol PRN Reason: Pain, Moderate (Pain Scale 4-6 Last Admin: 01/09/22 03:29 Dose: 4 mg Documented by: GORAN Multivitamins/Vitamin C (Multivitamin Tablet) 1 tab PO DAILY [facility] Last Admin: 01/09/22 12:13 Dose: 1 tab Documented by: VERONICA Nystatin (Nystatin Powder 15 Gm Bottle) 1 appl TOPICAL TID [facility]; Protocol Last Admin: 01/09/22 12:18 Dose: 1 appl Documented by: VERONICA Ondansetron HCl (Ondansetron Hcl 4 Mg/2 Ml Vial) 4 mg IVPUSH Q8H PRN PRN Reason: Nausea Last Admin: 01/04/22 02:38 Dose: 4 mg Documented by: JONATAN Pharmacy Consult (Consult Rx Perform Med Rec) 1 each MISCELLANE ONCE PRN PRN Reason: Consult order Sodium Chloride (0.9 % Sodium Chloride Flush 3 Ml Syringe) 3 ml IVFLUSH QSHIFT [facility] Last Admin: 01/09/22 09:30 Dose: 3 ml Documented by: VERONICA Sodium Hypochlorite (Sodium Hypochlorite 0.5% 473 Ml Solution) 1 appl TOPICAL DAILY [facility] Last Admin: 01/09/22 12:19 Dose: Not Given Documented by: VERONICA Non-Admin Reason: unavailable, need to obtain more Spironolactone (Spironolactone 25 Mg Tablet) 25 mg PO DAILY [facility]; Protocol Last Admin: 01/09/22 12:13 Dose: 25 mg Documented by: VERONICA Labs CBC & Chem 7: 01/09/22 06:37 01/09/22 06:37 Labs: Laboratory Results - last 24 hr 01/07/22 01/08/22 01/08/22 20:27 15:30 19:26 MCV MCH MCHC RDW Plt Count MPV Immature Gran % (Auto) Neut % (Auto) Lymph % (Auto) [place] % (Auto) Eos % (Auto) Baso % (Auto) Lymph # (Auto) [place] # (Auto) Eos # (Auto) Baso # (Auto) Abs Immat Gran (auto) Absolute Neuts (auto) Absolute Nucleated RBC Nucleated RBC % (auto) Smear Tech's Comments Anion Gap Estim Creat Clear Calc Estimated GFR POC Glucose 247 H 161 H Fasting Glucose Lactic Acid Calcium Total Bilirubin AST ALT Alkaline Phosphatase Total Protein Albumin Blood Type A Positive Antibody Screen NEGATIVE Crossmatch See Detail 01/09/22 01/09/22 01/09/22 04:15 04:31 06:37 MCV 79.7 L 79.5 L MCH 24.2 L 24.7 L MCHC 30.4 L 31.1 RDW 26.5 H 27.1 H Plt Count 378 354 MPV 9.6 9.5 Immature Gran % (Auto) 3.1 H 3.8 H Neut % (Auto) 77.3 H 75.3 H Lymph % (Auto) 9.4 L 10.9 L [place] % (Auto) 9.2 8.8 Eos % (Auto) 0.6 0.9 Baso % (Auto) 0.4 0.3 Lymph # (Auto) 2.4 2.6 [place] # (Auto) 2.3 H 2.1 H Eos # (Auto) 0.2 0.2 Baso # (Auto) 0.1 0.1 Abs Immat Gran (auto) 0.78 H 0.90 H Absolute Neuts (auto) 19.7 H 18.0 H Absolute Nucleated RBC 0.030 H 0.020 H Nucleated RBC % (auto) 0.1 0.1 Smear Tech's Comments VERIFIED Anion Gap Estim Creat Clear Calc Estimated GFR POC Glucose Fasting Glucose Lactic Acid 1.0 Calcium Total Bilirubin AST ALT Alkaline Phosphatase Total Protein Albumin Blood Type Antibody Screen Crossmatch 01/09/22 01/09/22 01/09/22 06:37 07:16 08:01 MCV MCH MCHC RDW Plt Count MPV Immature Gran % (Auto) Neut % (Auto) Lymph % (Auto) [place] % (Auto) Eos % (Auto) Baso % (Auto) Lymph # (Auto) [place] # (Auto) Eos # (Auto) Baso # (Auto) Abs Immat Gran (auto) Absolute Neuts (auto) Absolute Nucleated RBC Nucleated RBC % (auto) Smear Tech's Comments Anion Gap 10 L Estim Creat Clear Calc 113.5 Estimated GFR > 60 POC Glucose 120 H Fasting Glucose 119 H Lactic Acid Calcium 7.3 L Total Bilirubin 0.9 AST 57 H ALT 55 H Alkaline Phosphatase 70 Total Protein 4.0 L Albumin 1.8 L Blood Type A Positive Antibody Screen NEGATIVE Crossmatch See Detail 01/09/22 10:42 MCV MCH MCHC RDW Plt Count MPV Immature Gran % (Auto) Neut % (Auto) Lymph % (Auto) [place] % (Auto) Eos % (Auto) Baso % (Auto) Lymph # (Auto) [place] # (Auto) Eos # (Auto) Baso # (Auto) Abs Immat Gran (auto) Absolute Neuts (auto) Absolute Nucleated RBC Nucleated RBC % (auto) Smear Tech's Comments Anion Gap Estim Creat Clear Calc Estimated GFR POC Glucose 136 H Fasting Glucose Lactic Acid Calcium Total Bilirubin AST ALT Alkaline Phosphatase Total Protein Albumin Blood Type Antibody Screen Crossmatch Assessment and Plan (1) Sacral decubitus ulcer: Status: Acute (2) Fistula: Status: Acute Plan 66-year-old F sent in from [facility], PMHx of alcoholic cirrhosis, dementia, schizoaffective disorder admitted for acute?exacerbation of underlying congestive heart failure further complicated by AF/RVR, COPD exacerbation and development of angioedema requiring intubation for ventilatory support on 11/27 extubated 11/29.? 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 New finding of fistula....episode of bleeding requiring surgical intervention 01/08. Now with hypotension and profund anemia 1.3.Stage IV coccygeal decubitus ulcer - events of overnight noted. patient prognosis remains extremely poor. - Will transfuse 2 units of packed red cells and check hemoglobin response later this afternoon - albumin x4 doses - if further deterioration, believe it would be futile to resuscitate 2. HFpEF, [id number] - continue metoprolol + spironolactone - good response to diuresis; BNP 726-279 3.Paroxysmal Atrial FibriLATION - NSR this am - continue metoprolol/ digoxin - anticoagulated with apixaban 4. HTN -acceptable control on current therapies -metoprolol/spironolactone/amlodipine 5. DMII - acceptable control on current therapies - correction-dose lispro 6.Schizoaffective disorder - restarted haloperidol - add back Hydroxyzine - moving back to baseline [facility] updated # VTE ppx - apixaban Quality Stroke Does the patient have a stroke diagnosis?: No VTE Prior VTE?: No VTE Risk Level:: Medical - moderate - high VTE Device Contraindication: Treatment Not Indicated VTE Drug Contraindication: N/A - Med Ordered
[2022-01-09] MEDS: ondansetron HCL 4 MG/2 ML VIAL IVPUSH (13:00)
[2022-01-09] MEDS: Haloperidol Lactate 5 MG/ML VIAL IM (13:39)
--- NOTE | 2022-01-09 13:45 | P.EN_ITS ---
Event Note Date of Service: 01/09/22 Event Note: pt not doing well - already with staff and care givers discussion and plan to progress with [employer] MANAGER. In regards to the significance of her decubitus wound and her poor nutrition and obese body habitus - doing all the necessary steps to attempt healing would be difficult and she doesnt want to put in the effort . agree with comfort care plan and support at this point with no further interventions for the wound. discussed with hospitalst team
[2022-01-09 15:52] LABS: Glucose, Whole Blood 150 mg/dL (60-115)
[2022-01-09 19:43] LABS: Glucose, Whole Blood 133 mg/dL (60-115)
[2022-01-10] VITALS (11 sets, daily range): BP systolic 100–151; BP diastolic 37–71; PULSE 66–80; RESP 15–20; TEMP 36.3–37.1; O2SAT 90–94; BMI 44.1
[2022-01-10] MEDS: Piperacillin Sodium/Tazobactam 4.5 GM in 0.9 % Sodium Chloride 100 ML IV ×4 (00:05→17:35)
[2022-01-10] MEDS: Morphine Sulfate 4 MG/ML CARTRIDGE IVPUSH ×8 (02:09→23:17)
[2022-01-10] MEDS: Albumin Human 25 % 100 ML IV (02:30)
[2022-01-10 06:05] LABS: MANUAL DIFF FLAG NO
[2022-01-10 06:13] LABS: Mean Corpuscular Volume 88.3 fL (80.0-98.0); Mean Platelet Volume 10.2 fL (9.4-12.3); Neutrophils Percent Auto 68.9 % (45-73); PLT CLUMP 1; SCAN SMEAR FLAG 1
[2022-01-10 06:15] LABS: Basophils Absolute Auto 0.1 X10*3/uL (0.0-0.2); Basophils Percent Auto 0.5 % (0-2); Eosinophils Absolute Auto 0.3 X10*3/uL (0.0-0.4); Eosinophils Percent Auto 2.5 % (0-4); Hematocrit 28.6 % (37.0-47.0); Hemoglobin 9.1 g/dl (12.0-16.0); Imm Gran Abs Auto 0.36 X10*3/uL (0.00-0.03); Imm Gran Pct Auto 3.6 % (0.0-0.4); Lymphocytes Absolute Auto 1.5 X10*3/uL (1.2-4.9); Lymphocytes Percent Auto 14.4 % (20-40); Mean Corpuscular HGB Conc 31.8 g/dl (31.0-35.0); Mean Corpuscular Hemoglobin 28.1 pg (27.0-33.0); Monocytes Percent Auto 10.1 % (2-11); NRBC Pct Auto 0.3 /100WBC (0.0-0.2); Red Blood Count 3.24 X10*6/uL (4.20-5.50); Red Cell Distribution Width 23.8 % (11.0-16.0)
[2022-01-10 06:17] LABS: Platelet Count 254 X10*3/uL (160-400); White Blood Count 10.1 X10*3/uL (4.8-10.8)
[2022-01-10 06:29] LABS: Alanine Aminotransferase 55 U/L (0-31); Albumin Level 3.1 g/dL (3.5-5.0); Alkaline Phosphatase 75 U/L (39-117); Anion Gap 13 (12-20); Aspartate Amino Transferase 45 U/L (5-31); Bilirubin Total 1.1 mg/dL (0.0-1.0); Blood Urea Nitrogen 14 mg/dL (9-16); Calcium 8.1 mg/dL (8.4-10.2); Carbon Dioxide 29 mmol/L (22-29); Chloride 100 mmol/L (96-108); Creatinine Clr Calc Pharmacy 109.9; Estimated Glomerular Filt Rate > 60; Glucose Fasting 118 mg/dL (60-99); Potassium 4.4 mmol/L (3.3-5.1); Sodium 138 mmol/L (135-145); Total Protein 5.2 g/dL (6.5-8.0)
[2022-01-10 07:56] LABS: Glucose, Whole Blood 118 mg/dL (60-115)
[2022-01-10] MEDS: Digoxin 0.25 MG TABLET PO (08:02)
[2022-01-10] MEDS: Atorvastatin Calcium 10 MG TABLET PO (08:02)
[2022-01-10] MEDS: HaloperidoL 5 MG TABLET PO ×2 (08:02→20:19)
[2022-01-10] MEDS: hydrOXYzine HCL 25 MG TABLET PO ×4 (08:02→20:19)
[2022-01-10] MEDS: Metoprolol Tartrate 25 MG TABLET 75 MG PO ×2 (08:02→20:19)
[2022-01-10] MEDS: amLODIPine Besylate 10 MG TABLET PO (08:02)
[2022-01-10] MEDS: Multivitamin TABLET 1 TAB PO (08:02)
[2022-01-10] MEDS: Apixaban 5 MG TABLET PO ×2 (08:02→20:19)
[2022-01-10] MEDS: Nystatin Powder 15 GM BOTTLE 1 APPL TOPICAL ×3 (08:03→20:20)
[2022-01-10] MEDS: 0.9 % Sodium Chloride Flush 3 ML SYRINGE IVFLUSH ×3 (08:03→20:20)
[2022-01-10] MEDS: Spironolactone 25 MG TABLET PO (08:03)
--- NOTE | 2022-01-10 10:40 | MHC.SLORD ---
Speech Language Pathology Order Status: RN reports patient is full code. Per RN, patient has not been eating much, but does tolerate recommended consistencies. She is on [facility] (NDD2) solids and THIN liquids. Patient is now sleeping. No PO trials given this date. EXT JS DEVELOPER will continue to follow.
--- NOTE | 2022-01-10 11:07 | MHC.CLN ---
F/U PO INTAKE REMAINS POOR 0-25% DIET RX: GRD M/S-APPROPRIATE PT RECEIVING ENSURE BID AND LELAND BID TO PROVIDE 860KCALS, 45G PROTEIN FOR INCREASE KCALS AND PROMOTE WOUND HEALING, HOWEVER PT DOES REFUSE MEALS AND SUPPLEMENTS FREQUENTLY MD NOTED PT MOVING TO AUTOMATION AND CONTROL ENGINEER WILL CONTINUE TO FOLLOW AND PROVIDE SUPPORT NEEDED
[2022-01-10 11:37] LABS: Glucose, Whole Blood 188 mg/dL (60-115)
--- NOTE | 2022-01-10 11:46 | MHC.CM.PN ---
Per ROUNDS discussion, Wound vac will be required when Patient returns to [facility]. Patient has scheduled IV Morphine Q 3 hours and BP has been low. CM will follow for medical clearance for dc.
[2022-01-10] MEDS: Insulin Lispro 100 UNIT/ML 3 ML VIAL SUBCUT (12:20)
--- NOTE | 2022-01-10 14:31 | P.PNIM_ITS ---
Subjective Subjective Date of Service: 01/10/22 Interval History: BP and Hb improved after transfusion Denies any complaints other than pain at the site of her large sacral wound/fistual Review of Systems Review of Systems: Yes all other systems are reviewed and are negative Physical Exam Vital Signs: Vital Signs: Last Vital Signs Temp 97.3 F 01/10/22 10:51 Pulse 67 01/10/22 10:51 Resp 20 01/10/22 10:51 BP 107/47 L 01/10/22 10:51 Pulse Ox 90 L 01/10/22 10:51 Oxygen Flow Rate 3 12/30/21 13:00 BMI result Body Mass Index 44.1 Gen: NAD HEENT: sclera anicteric, moist mucus membranes Neck: supple Lungs: diminished bilaterally Heart: regular, no murmurs Abd: soft, non-tender, non-distended, obese with pannus Ext: 1+ lower extremity edema, RUE PICC Skin: warm/well-perfused, very large stage 4 sacral decubitus ulcer Neuro: alert Psych: impaired insight Objective Data Active Medications Acetaminophen (Acetaminophen 325 Mg Tablet) 650 mg PO Q6H PRN PRN Reason: Fever Last Admin: 01/07/22 13:52 Dose: 650 mg Documented by: DOBROGilmer Amlodipine Besylate (Amlodipine Besylate 10 Mg Tablet) 10 mg PO DAILY [facility]; Protocol Last Admin: 01/10/22 08:02 Dose: 10 mg Documented by: DONTRELL Apixaban (Apixaban 5 Mg Tablet) 5 mg PO BID [facility] Last Admin: 01/10/22 08:02 Dose: 5 mg Documented by: DONTRELL Atorvastatin Calcium (Atorvastatin Calcium 10 Mg Tablet) 10 mg PO DAILY [facility] Last Admin: 01/10/22 08:02 Dose: 10 mg Documented by: DONTRELL Digoxin (Digoxin 0.25 Mg Tablet) 0.25 mg PO DAILY [facility] Last Admin: 01/10/22 08:02 Dose: 0.25 mg Documented by: DONTRELL Haloperidol (Haloperidol 5 Mg Tablet) 5 mg PO BID [facility] Last Admin: 01/10/22 08:02 Dose: 5 mg Documented by: DONTRELL Hydroxyzine HCl (Hydroxyzine Hcl 25 Mg Tablet) 25 mg PO QID [facility] Last Admin: 01/10/22 08:02 Dose: 25 mg Documented by: DONTRELL Piperacillin Sod/Tazobactam (Sod 4.5 gm/ Sodium Chloride) 100 mls @ 200 mls/hr IV Q6H [facility] Last Infusion: 01/10/22 13:01 Dose: 0 mls/hr Documented by: DONTRELL Insulin Human Lispro (Insulin Lispro 100 Unit/Ml 3 Ml Vial) 0 unit SUBCUT QIDACHS [facility]; Protocol Last Admin: 01/10/22 12:20 Dose: 4 unit Documented by: DONTRELL Metoprolol Tartrate (Metoprolol Tartrate 25 Mg Tablet) 75 mg PO BID [facility]; Protocol Last Admin: 01/10/22 08:02 Dose: 75 mg Documented by: DONTRELL Metoprolol Tartrate (Metoprolol Tartrate 5 Mg/5 Ml Vial) 5 mg IVPUSH Q6H PRN PRN Reason: Heart Rate >100 Last Admin: 01/01/22 00:43 Dose: 5 mg Documented by: DOROTHY Morphine Sulfate (Morphine Sulfate 4 Mg/Ml Cartridge) 4 mg IVPUSH Q3H [facility]; Protocol Last Admin: 01/10/22 12:05 Dose: 4 mg Documented by: DONTRELL Multivitamins/Vitamin C (Multivitamin Tablet) 1 tab PO DAILY [facility] Last Admin: 01/10/22 08:02 Dose: 1 tab Documented by: DONTRELL Nystatin (Nystatin Powder 15 Gm Bottle) 1 appl TOPICAL TID [facility]; Protocol Last Admin: 01/10/22 08:03 Dose: 1 appl Documented by: DONTRELL Ondansetron HCl (Ondansetron Hcl 4 Mg/2 Ml Vial) 4 mg IVPUSH Q8H PRN PRN Reason: Nausea Last Admin: 01/09/22 13:00 Dose: 4 mg Documented by: VERONICA Pharmacy Consult (Consult Rx Perform Med Rec) 1 each MISCELLANE ONCE PRN PRN Reason: Consult order Sodium Chloride (0.9 % Sodium Chloride Flush 3 Ml Syringe) 3 ml IVFLUSH QSHIFT [facility] Last Admin: 01/10/22 08:03 Dose: 3 ml Documented by: DONTRELL Sodium Hypochlorite (Sodium Hypochlorite 0.5% 473 Ml Solution) 1 appl TOPICAL DAILY [facility] Last Admin: 01/09/22 12:19 Dose: Not Given Documented by: VERONICA Non-Admin Reason: unavailable, need to obtain more Spironolactone (Spironolactone 25 Mg Tablet) 25 mg PO DAILY [facility]; Protocol Last Admin: 01/10/22 08:03 Dose: 25 mg Documented by: DONTRELL Labs CBC & Chem 7: 01/10/22 05:21 01/10/22 05:21 Labs: Laboratory Results - last 24 hr 01/09/22 01/09/22 01/10/22 15:06 19:37 05:21 MCV 88.3 D MCH 28.1 MCHC 31.8 RDW 23.8 H Plt Count 254 D MPV 10.2 Immature Gran % (Auto) 3.6 H Neut % (Auto) 68.9 Lymph % (Auto) 14.4 L [facility] % (Auto) 10.1 Eos % (Auto) 2.5 Baso % (Auto) 0.5 Lymph # (Auto) 1.5 [facility] # (Auto) 1.0 Eos # (Auto) 0.3 Baso # (Auto) 0.1 Abs Immat Gran (auto) 0.36 H Absolute Neuts (auto) 7.0 Absolute Nucleated RBC 0.030 H Nucleated RBC % (auto) 0.3 H Anion Gap Estim Creat Clear Calc Estimated GFR POC Glucose 150 H 133 H Fasting Glucose Calcium Total Bilirubin AST ALT Alkaline Phosphatase Total Protein Albumin 01/10/22 01/10/22 01/10/22 05:21 07:16 10:50 MCV MCH MCHC RDW Plt Count MPV Immature Gran % (Auto) Neut % (Auto) Lymph % (Auto) [facility] % (Auto) Eos % (Auto) Baso % (Auto) Lymph # (Auto) [facility] # (Auto) Eos # (Auto) Baso # (Auto) Abs Immat Gran (auto) Absolute Neuts (auto) Absolute Nucleated RBC Nucleated RBC % (auto) Anion Gap 13 Estim Creat Clear Calc 109.9 Estimated GFR > 60 POC Glucose 118 H 188 H Fasting Glucose 118 H Calcium 8.1 L D Total Bilirubin 1.1 H AST 45 H ALT 55 H Alkaline Phosphatase 75 Total Protein 5.2 L D Albumin 3.1 L D Microbiology Microbiology Results: Microbiology 01/09/22 08:01 Blood Culture - Preliminary Blood - Venous No growth after 24 hours. 01/09/22 07:51 Blood Culture - Preliminary Blood - Venous No growth after 24 hours. Assessment and Plan (1) Sacral decubitus ulcer: Status: Acute (2) Fistula: Status: Acute Plan hospital d#46 66-year-old F sent in from [facility], PMHx of alcoholic cirrhosis, dementia, schizoaffective disorder admitted for acute?exacerbation of underlying congestive heart failure further complicated by AF/RVR, COPD exacerbation and development of angioedema requiring intubation for ventilatory support on 11/27 extubated 11/29.? 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 on 12/06, again developed respiratory failure and nearly obtunded with no gag reflex and was transferred again to ICU and re-intubated;extubated 12/13, stepped down to medical floor 12/15 hospitalization complicated by stage IV coccygeal decubitus ulcer then found to have fistula episode of bleeding from wound requiring surgical intervention 01/08 and causing hypotension/anemia # acute blood loss anemia superimposed on chronic anemia - good response to transfusion - iron supplementation # hypotension - related to anemia; resolved after transfusion + colloid replacement # Stage IV coccygeal decubitus ulcer - s/p multiple operative debridements/cauterization of bleeding - Dakins, wound VAC, pulsating air mattress, wedge, avoid lying on back - pip/rose d#2 # HFpEF, [id number] - continue metoprolol + spironolactone - good response to diuresis; BNP 726->279 # pAF - continue metoprolol/ digoxin - anticoagulated with apixaban # HTN -acceptable control on current therapies: metoprolol, spironolactone, and amlodipine # DM2 - acceptable control on current therapies: correction-dose lispro # schizoaffective disorder - haloperidol, hydroxyzine # VTE ppx - apixaban Quality Stroke Does the patient have a stroke diagnosis?: No VTE Prior VTE?: No VTE Risk Level:: Medical - moderate - high VTE Device Contraindication: Treatment Not Indicated VTE Drug Contraindication: N/A - Med Ordered
[2022-01-10] MEDS: Sodium Hypochlorite 0.5% 473 ML SOLUTION 1 APPL TOPICAL (15:22)
[2022-01-10] MEDS: Ferrous Sulfate 324 MG TABLET.DR PO (17:35)
[2022-01-10 17:37] LABS: Glucose, Whole Blood 109 mg/dL (60-115)
[2022-01-10 20:34] LABS: Glucose, Whole Blood 132 mg/dL (60-115)
[2022-01-11] VITALS (10 sets, daily range): BP systolic 98–136; BP diastolic 42–66; PULSE 63–73; RESP 14–20; TEMP 36.2–36.8; O2SAT 87–91; BMI 42.3
[2022-01-11] MEDS: Piperacillin Sodium/Tazobactam 4.5 GM in 0.9 % Sodium Chloride 100 ML IV ×5 (01:38→23:03)
[2022-01-11] MEDS: Morphine Sulfate 4 MG/ML CARTRIDGE IVPUSH ×7 (02:35→22:55)
[2022-01-11 06:46] LABS: Basophils Absolute Auto 0.1 X10*3/uL (0.0-0.2); Basophils Percent Auto 0.8 % (0-2); Eosinophils Absolute Auto 0.3 X10*3/uL (0.0-0.4); Eosinophils Percent Auto 2.2 % (0-4); Hematocrit 27.8 % (37.0-47.0); Hemoglobin 8.6 g/dl (12.0-16.0); Imm Gran Abs Auto 0.43 X10*3/uL (0.00-0.03); Imm Gran Pct Auto 3.4 % (0.0-0.4); Lymphocytes Absolute Auto 1.9 X10*3/uL (1.2-4.9); Lymphocytes Percent Auto 14.7 % (20-40); MANUAL DIFF FLAG SCAN; Mean Corpuscular HGB Conc 30.9 g/dl (31.0-35.0); Mean Corpuscular Hemoglobin 27.2 pg (27.0-33.0); Mean Platelet Volume 9.7 fL (9.4-12.3); Monocytes Absolute Auto 1.9 X10*3/uL (0.1-1.2); Monocytes Percent Auto 14.6 % (2-11); NRBC Pct Auto 0.4 /100WBC (0.0-0.2); Neutrophils Absolute Auto 8.3 x10*3/uL (2.0-8.3); Neutrophils Percent Auto 64.3 % (45-73); Platelet Count 312 X10*3/uL (160-400); Red Blood Count 3.16 X10*6/uL (4.20-5.50); Red Cell Distribution Width 23.7 % (11.0-16.0); SCAN SMEAR FLAG 1; White Blood Count 12.8 X10*3/uL (4.8-10.8)
[2022-01-11 06:55] LABS: Alanine Aminotransferase 49 U/L (0-31); Albumin Level 2.8 g/dL (3.5-5.0); Alkaline Phosphatase 89 U/L (39-117); Anion Gap 11 (12-20); Aspartate Amino Transferase 30 U/L (5-31); Bilirubin Total 0.9 mg/dL (0.0-1.0); Blood Urea Nitrogen 10 mg/dL (9-16); Calcium 8.2 mg/dL (8.4-10.2); Carbon Dioxide 33 mmol/L (22-29); Chloride 100 mmol/L (96-108); Creatinine Clr Calc Pharmacy 116.7; Estimated Glomerular Filt Rate > 60; Glucose Fasting 129 mg/dL (60-99); Potassium 3.8 mmol/L (3.3-5.1); Sodium 140 mmol/L (135-145); Total Protein 4.9 g/dL (6.5-8.0)
[2022-01-11 07:21] LABS: SLIDE REVIEW VERIFIED
[2022-01-11 07:41] LABS: Glucose, Whole Blood 124 mg/dL (60-115)
[2022-01-11] MEDS: Atorvastatin Calcium 10 MG TABLET PO (08:36)
[2022-01-11] MEDS: Multivitamin TABLET 1 TAB PO (08:36)
[2022-01-11] MEDS: HaloperidoL 5 MG TABLET PO ×2 (08:36→20:40)
[2022-01-11] MEDS: Ferrous Sulfate 324 MG TABLET.DR PO ×2 (08:36→18:43)
[2022-01-11] MEDS: hydrOXYzine HCL 25 MG TABLET PO ×3 (08:36→20:39)
[2022-01-11] MEDS: Digoxin 0.25 MG TABLET PO (08:36)
[2022-01-11] MEDS: amLODIPine Besylate 10 MG TABLET PO (08:36)
[2022-01-11] MEDS: Spironolactone 25 MG TABLET PO (08:36)
[2022-01-11] MEDS: 0.9 % Sodium Chloride Flush 3 ML SYRINGE IVFLUSH ×3 (08:37→20:40)
[2022-01-11] MEDS: Sodium Hypochlorite 0.5% 473 ML SOLUTION 1 APPL TOPICAL (08:37)
[2022-01-11] MEDS: Nystatin Powder 15 GM BOTTLE 1 APPL TOPICAL ×3 (08:37→20:49)
[2022-01-11] MEDS: Apixaban 5 MG TABLET PO ×2 (08:37→20:39)
[2022-01-11] MEDS: Metoprolol Tartrate 25 MG TABLET 75 MG PO ×2 (08:37→20:40)
--- NOTE | 2022-01-11 10:12 | PC.NURSE ---
Wound assessment completed. Patient has a stage 4 to sacrum/buttocks. There is granulation tissue on the buttock and granulation tissue at the deep base of the wound. There is some necrotic tissue present. Dakins solution applied to gauze and placed in deepest part of wound to the surface covered with gauze and ABD pads, taped down.
--- NOTE | 2022-01-11 11:12 | HO.PM.IMPN ---
Subjective Subjective Date of Service: 01/11/22 Interval History: BP + Hb improved No complaints though slightly hypoxic Review of Systems Review of Systems: Yes all other systems are reviewed and are negative Physical Exam Vital Signs: Vital Signs: Last Vital Signs Temp 97.1 F 01/11/22 07:46 Pulse 71 01/11/22 07:46 Resp 20 01/11/22 07:46 BP 136/62 01/11/22 07:46 Pulse Ox 89 L 01/11/22 07:46 Oxygen Flow Rate 3 12/30/21 13:00 BMI result Body Mass Index 42.3 Gen: NAD HEENT: sclera anicteric, moist mucus membranes Neck: supple Lungs: diminished bilaterally Heart: regular, no murmurs Abd: soft, non-tender, non-distended, obese with pannus Ext: 1+ lower extremity edema, RUE PICC Skin: warm/well-perfused, very large stage 4 sacral decubitus ulcer Neuro: alert Psych: impaired insight Objective Data Active Medications Acetaminophen (Acetaminophen 325 Mg Tablet) 650 mg PO Q6H PRN PRN Reason: Fever Last Admin: 01/07/22 13:52 Dose: 650 mg Documented by: DOBROGilmer Amlodipine Besylate (Amlodipine Besylate 10 Mg Tablet) 10 mg PO DAILY [facility]; Protocol Last Admin: 01/11/22 08:36 Dose: 10 mg Documented by: LISSA Apixaban (Apixaban 5 Mg Tablet) 5 mg PO BID [facility] Last Admin: 01/11/22 08:37 Dose: 5 mg Documented by: LISSA Atorvastatin Calcium (Atorvastatin Calcium 10 Mg Tablet) 10 mg PO DAILY [facility] Last Admin: 01/11/22 08:36 Dose: 10 mg Documented by: LISSA Digoxin (Digoxin 0.25 Mg Tablet) 0.25 mg PO DAILY [facility] Last Admin: 01/11/22 08:36 Dose: 0.25 mg Documented by: LISSA Ferrous Sulfate (Ferrous Sulfate 324 Mg Tablet.) 324 mg PO BIDWM [facility] Last Admin: 01/11/22 08:36 Dose: 324 mg Documented by: LISSA Haloperidol (Haloperidol 5 Mg Tablet) 5 mg PO BID [facility] Last Admin: 01/11/22 08:36 Dose: 5 mg Documented by: LISSA Hydroxyzine HCl (Hydroxyzine Hcl 25 Mg Tablet) 25 mg PO QID [facility] Last Admin: 01/11/22 08:36 Dose: 25 mg Documented by: LISSA Piperacillin Sod/Tazobactam (Sod 4.5 gm/ Sodium Chloride) 100 mls @ 200 mls/hr IV Q6H [facility] Last Infusion: 01/11/22 06:06 Dose: 0 mls/hr Documented by: LUANA Insulin Human Lispro (Insulin Lispro 100 Unit/Ml 3 Ml Vial) 0 unit SUBCUT QIDACHS [facility]; Protocol Last Admin: 01/11/22 07:56 Dose: Not Given Documented by: LISSA Non-Admin Reason: No Insulin Coverage Metoprolol Tartrate (Metoprolol Tartrate 25 Mg Tablet) 75 mg PO BID [facility]; Protocol Last Admin: 01/11/22 08:37 Dose: 75 mg Documented by: LISSA Metoprolol Tartrate (Metoprolol Tartrate 5 Mg/5 Ml Vial) 5 mg IVPUSH Q6H PRN PRN Reason: Heart Rate >100 Last Admin: 01/01/22 00:43 Dose: 5 mg Documented by: DOROTHY Morphine Sulfate (Morphine Sulfate 4 Mg/Ml Cartridge) 4 mg IVPUSH Q3H [facility]; Protocol Last Admin: 01/11/22 08:36 Dose: 4 mg Documented by: LISSA Multivitamins/Vitamin C (Multivitamin Tablet) 1 tab PO DAILY [facility] Last Admin: 01/11/22 08:36 Dose: 1 tab Documented by: LISSA Nystatin (Nystatin Powder 15 Gm Bottle) 1 appl TOPICAL TID [facility]; Protocol Last Admin: 01/11/22 08:37 Dose: 1 appl Documented by: LISSA Ondansetron HCl (Ondansetron Hcl 4 Mg/2 Ml Vial) 4 mg IVPUSH Q8H PRN PRN Reason: Nausea Last Admin: 01/09/22 13:00 Dose: 4 mg Documented by: VERONICA Pharmacy Consult (Consult Rx Perform Med Rec) 1 each MISCELLANE ONCE PRN PRN Reason: Consult order Sodium Chloride (0.9 % Sodium Chloride Flush 3 Ml Syringe) 3 ml IVFLUSH QSHIFT [facility] Last Admin: 01/11/22 08:37 Dose: 3 ml Documented by: LISSA Sodium Hypochlorite (Sodium Hypochlorite 0.5% 473 Ml Solution) 1 appl TOPICAL DAILY [facility] Last Admin: 01/11/22 08:37 Dose: 1 appl Documented by: LISSA Spironolactone (Spironolactone 25 Mg Tablet) 25 mg PO DAILY [facility]; Protocol Last Admin: 01/11/22 08:36 Dose: 25 mg Documented by: LISSA Labs CBC & Chem 7: 01/11/22 06:18 01/11/22 06:18 Labs: Laboratory Results - last 24 hr 01/10/22 01/10/22 01/10/22 10:50 16:51 20:22 MCV MCH MCHC RDW Plt Count MPV Immature Gran % (Auto) Neut % (Auto) Lymph % (Auto) [place] % (Auto) Eos % (Auto) Baso % (Auto) Lymph # (Auto) [place] # (Auto) Eos # (Auto) Baso # (Auto) Abs Immat Gran (auto) Absolute Neuts (auto) Absolute Nucleated RBC Nucleated RBC % (auto) Smear Tech's Comments Anion Gap Estim Creat Clear Calc Estimated GFR POC Glucose 188 H 109 132 H Fasting Glucose Calcium Total Bilirubin AST ALT Alkaline Phosphatase Total Protein Albumin 01/11/22 01/11/22 01/11/22 06:18 06:18 07:25 MCV 88.0 MCH 27.2 MCHC 30.9 L RDW 23.7 H Plt Count 312 MPV 9.7 Immature Gran % (Auto) 3.4 H Neut % (Auto) 64.3 Lymph % (Auto) 14.7 L [place] % (Auto) 14.6 H Eos % (Auto) 2.2 Baso % (Auto) 0.8 Lymph # (Auto) 1.9 [place] # (Auto) 1.9 H Eos # (Auto) 0.3 Baso # (Auto) 0.1 Abs Immat Gran (auto) 0.43 H Absolute Neuts (auto) 8.3 Absolute Nucleated RBC 0.050 H Nucleated RBC % (auto) 0.4 H Smear Tech's Comments VERIFIED Anion Gap 11 L Estim Creat Clear Calc 116.7 Estimated GFR > 60 POC Glucose 124 H Fasting Glucose 129 H Calcium 8.2 L Total Bilirubin 0.9 AST 30 ALT 49 H Alkaline Phosphatase 89 Total Protein 4.9 L Albumin 2.8 L Microbiology Microbiology Results: Microbiology 01/09/22 08:01 Blood Culture - Preliminary Blood - Venous No growth after 48 hours. 01/09/22 07:51 Blood Culture - Preliminary Blood - Venous No growth after 48 hours. Assessment and Plan (1) Sacral decubitus ulcer: Status: Acute (2) Fistula: Status: Acute Plan hospital d#48 66-year-old F sent in from [facility], PMHx of alcoholic cirrhosis, dementia, schizoaffective disorder admitted for acute?exacerbation of underlying congestive heart failure further complicated by AF/RVR, COPD exacerbation and development of angioedema requiring intubation for ventilatory support on 11/27 extubated 11/29.? 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 on 12/06, again developed respiratory failure and nearly obtunded with no gag reflex and was transferred again to ICU and re-intubated;extubated 12/13, stepped down to medical floor 12/15 hospitalization complicated by stage IV coccygeal decubitus ulcer then found to have fistula episode of bleeding from wound requiring surgical intervention 01/08 and causing hypotension/anemia # acute blood loss anemia superimposed on chronic anemia - good response to transfusion - oral iron supplementation # hypotension - related to anemia; resolved after transfusion + colloid replacement # hypoxia, mild - check CXR, BNP # Stage IV coccygeal decubitus ulcer - s/p multiple operative debridements/cauterization of bleeding - Dakins, gauze, pulsating air mattress, wedge, avoid lying on back. VAC not helping per Surg - pip/rose d#3 # HFpEF, [id number] - continue metoprolol + spironolactone - good response to diuresis; BNP 726->279; may need further diuresis- check CXR + BNP # pAF - continue metoprolol + digoxin - anticoagulated with apixaban # HTN - acceptable control on current therapies: metoprolol, spironolactone, and amlodipine # DM2 - acceptable control on current therapies: correction-dose lispro # schizoaffective disorder - haloperidol, hydroxyzine # VTE ppx - apixaban # dispo - plan return to [facility] eventually Quality Stroke Does the patient have a stroke diagnosis?: No VTE Prior VTE?: No VTE Risk Level:: Medical - moderate - high VTE Device Contraindication: Treatment Not Indicated VTE Drug Contraindication: N/A - Med Ordered
[2022-01-11 11:16] LABS: Glucose, Whole Blood 178 mg/dL (60-115)
[2022-01-11] MEDS: Insulin Lispro 100 UNIT/ML 3 ML VIAL SUBCUT ×3 (12:08→20:49)
[2022-01-11 13:56] LABS: B Type Natriuretic Peptide 446 pg/mL (<100)
[2022-01-11] MEDS: Furosemide 40 MG/4 ML VIAL IVPUSH (15:25)
[2022-01-11 15:49] LABS: Glucose, Whole Blood 153 mg/dL (60-115)
--- NOTE | 2022-01-11 16:42 | MHC.SLORD ---
Speech Language Pathology Order Status: Attempted to see pt this a.m., Pt sleeping, when roused refused trials of food, liquid.
[2022-01-11 20:11] LABS: Glucose, Whole Blood 166 mg/dL (60-115)
[2022-01-12] VITALS (13 sets, daily range): BP systolic 97–140; BP diastolic 46–85; PULSE 64–107; RESP 16–22; TEMP 36.2–37.4; O2SAT 80–99; BMI 41.3
[2022-01-12] MEDS: Morphine Sulfate 4 MG/ML CARTRIDGE IVPUSH ×3 (02:05→09:11)
--- NOTE | 2022-01-12 05:24 | PC.RT ---
pt. has not worn Bipap in over 2 weeks due to not wanting it. Can the Hospitalist/Provider please DC this order. If she may need it in the future, then the provider can re-order it.
[2022-01-12] MEDS: Piperacillin Sodium/Tazobactam 4.5 GM in 0.9 % Sodium Chloride 100 ML IV (05:47)
[2022-01-12] MEDS: Furosemide 40 MG/4 ML VIAL IVPUSH ×3 (05:47→17:55)
[2022-01-12 06:47] LABS: Glucose, Whole Blood 94 mg/dL (60-115)
[2022-01-12 06:48] LABS: Basophils Absolute Auto 0.1 X10*3/uL (0.0-0.2); Eosinophils Absolute Auto 0.4 X10*3/uL (0.0-0.4); Eosinophils Percent Auto 2.6 % (0-4); Hematocrit 31.8 % (37.0-47.0); Hemoglobin 9.8 g/dl (12.0-16.0); Imm Gran Abs Auto 0.52 X10*3/uL (0.00-0.03); Imm Gran Pct Auto 3.9 % (0.0-0.4); Lymphocytes Absolute Auto 2.5 X10*3/uL (1.2-4.9); Lymphocytes Percent Auto 18.7 % (20-40); MANUAL DIFF FLAG SCAN; Mean Corpuscular HGB Conc 30.8 g/dl (31.0-35.0); Mean Corpuscular Hemoglobin 26.9 pg (27.0-33.0); Mean Corpuscular Volume 87.4 fL (80.0-98.0); Mean Platelet Volume 9.9 fL (9.4-12.3); Monocytes Absolute Auto 1.5 X10*3/uL (0.1-1.2); Monocytes Percent Auto 11.5 % (2-11); NRBC Pct Auto 0.5 /100WBC (0.0-0.2); Neutrophils Absolute Auto 8.2 x10*3/uL (2.0-8.3); Neutrophils Percent Auto 62.3 % (45-73); Platelet Count 416 X10*3/uL (160-400); Red Blood Count 3.64 X10*6/uL (4.20-5.50); Red Cell Distribution Width 23.5 % (11.0-16.0); SCAN SMEAR FLAG 1; White Blood Count 13.2 X10*3/uL (4.8-10.8)
[2022-01-12 07:10] LABS: B Type Natriuretic Peptide 342 pg/mL (<100)
[2022-01-12 07:12] LABS: Alanine Aminotransferase 40 U/L (0-31); Albumin Level 2.9 g/dL (3.5-5.0); Alkaline Phosphatase 87 U/L (39-117); Anion Gap 12 (12-20); Aspartate Amino Transferase 18 U/L (5-31); Bilirubin Total 0.9 mg/dL (0.0-1.0); Blood Urea Nitrogen 16 mg/dL (9-16); Calcium 8.4 mg/dL (8.4-10.2); Carbon Dioxide 35 mmol/L (22-29); Chloride 97 mmol/L (96-108); Estimated Glomerular Filt Rate > 60; Glucose Fasting 86 mg/dL (60-99); Potassium 4.1 mmol/L (3.3-5.1); Sodium 140 mmol/L (135-145); Total Protein 5.5 g/dL (6.5-8.0)
--- NOTE | 2022-01-12 07:42 | PC.NURSE ---
At 0500 pt yelled out I cant breathe , this RN immediately entered the pts room. O2 sat was 80% on RA, pt appeared very anxious with rambling speech. Pt did not appear in any respiratory distress, breathing was even and unlabored, dim bases, RR 18. 2L NC was applied and HOB was raised, O2 increased to 94%. Other vitals WNL, HR 64, BP 103/51. Pt denied any SOB after O2 was applied. made aware, no new orders at this time. Pt educated on importance of keeping O2 on. Telesitter in place for pt safety.
[2022-01-12 07:48] LABS: SLIDE REVIEW VERIFIED
[2022-01-12 07:52] LABS: Glucose, Whole Blood 93 mg/dL (60-115)
--- NOTE | 2022-01-12 08:08 | HE.PHANOTE ---
BROAD SPECTRUM ANTIBIOTIC DE-ESCALATION: Spoke to Dr. Tabares about de-escalating the Zosyn to another antibiotic seeing as how the patient is improving and does not need pseudomonas coverage. We decided on Unasyn, which I dosed appropriately based on indication and renal function. New regimen is Unasyn 3G Q6H.
--- NOTE | 2022-01-12 08:58 | P.PNGS_ITS ---
Subjective Subjective Date of Service: 01/12/22 Physical Exam Vital Signs: Vital Signs: Last Vital Signs Temp 97.1 F 01/12/22 07:14 Pulse 65 01/12/22 07:14 Resp 19 01/12/22 07:14 BP 110/46 L 01/12/22 07:14 Pulse Ox 95 01/12/22 07:14 Oxygen Flow Rate 3 12/30/21 13:00 BMI result Body Mass Index 41.3 Objective Data Active Medications Acetaminophen (Acetaminophen 325 Mg Tablet) 650 mg PO Q6H PRN PRN Reason: Fever Last Admin: 01/07/22 13:52 Dose: 650 mg Documented by: DOBROB Amlodipine Besylate (Amlodipine Besylate 10 Mg Tablet) 10 mg PO DAILY [facility]S [facility]; Protocol Last Admin: 01/11/22 08:36 Dose: 10 mg Documented by: LISAS Apixaban (Apixaban 5 Mg Tablet) 5 mg PO BID [facility] 234 BEDS AT [facility] Last Admin: 01/11/22 20:39 Dose: 5 mg Documented by: LUANA Atorvastatin Calcium (Atorvastatin Calcium 10 Mg Tablet) 10 mg PO DAILY [facility] 234 BEDS AT [facility] Last Admin: 01/11/22 08:36 Dose: 10 mg Documented by: LISSA Digoxin (Digoxin 0.25 Mg Tablet) 0.25 mg PO DAILY [facility] 234 BEDS AT [facility] Last Admin: 01/11/22 08:36 Dose: 0.25 mg Documented by: LISSA Ferrous Sulfate (Ferrous Sulfate 324 Mg Tablet.Dr) 324 mg PO BIDWM COUNTS INCLUDE 234 BEDS AT THE [facility] Last Admin: 01/11/22 18:43 Dose: 324 mg Documented by: LISSA Furosemide (Furosemide 40 Mg/4 Ml Vial) 40 mg IVPUSH BID@0900,1800 COUNTS INCLUDE 234 BEDS AT THE [facility]; Pro tocol Last Admin: 01/12/22 05:47 Dose: 40 mg Documented by: LUANA Haloperidol (Haloperidol 5 Mg Tablet) 5 mg PO BID [facility]CLUDE 234 BEDS AT [facility] Last Admin: 01/11/22 20:40 Dose: 5 mg Documented by: LUANA Hydroxyzine HCl (Hydroxyzine Hcl 25 Mg Tablet) 25 mg PO QID [facility] 234 BEDS AT [facility] Last Admin: 01/11/22 20:39 Dose: 25 mg Documented by: LUANA Ampicillin Sodium/Sulbactam (Sodium 3 gm/ Sodium Chloride) 100 mls @ 200 mls/hr IV Q6H [facility]S [facility]CLUDE 234 BEDS AT THE [facility] Insulin Human Lispro (Insulin Lispro 100 Unit/Ml 3 Ml Vial) 0 unit SUBCUT QIDACHS [facility]CLUDE 234 BEDS AT [facility]; Protocol Last Admin: 01/12/22 07:54 Dose: Not Given Documented by: LISSA Non-Admin Reason: No Insulin Coverage Metoprolol Tartrate (Metoprolol Tartrate 25 Mg Tablet) 75 mg PO BID [facility] 234 BEDS AT [facility]; Protocol Last Admin: 01/11/22 20:40 Dose: 75 mg Documented by: LUANA Metoprolol Tartrate (Metoprolol Tartrate 5 Mg/5 Ml Vial) 5 mg IVPUSH Q6H PRN PRN Reason: Heart Rate >100 Last Admin: 01/01/22 00:43 Dose: 5 mg Documented by: DOROTHY Morphine Sulfate (Morphine Sulfate 4 Mg/Ml Cartridge) 4 mg IVPUSH Q3H [facility]CLUDE 234 BEDS AT [facility]; Protocol Last Admin: 01/12/22 05:04 Dose: 4 mg Documented by: LUANA Multivitamins/Vitamin C (Multivitamin Tablet) 1 tab PO DAILY [facility] 234 BEDS AT [facility] Last Admin: 01/11/22 08:36 Dose: 1 tab Documented by: LISSA Nystatin (Nystatin Powder 15 Gm Bottle) 1 appl TOPICAL TID [facility]CLUDE 234 BEDS AT [facility]; Protocol Last Admin: 01/11/22 20:49 Dose: 1 appl Documented by: LUANA Ondansetron HCl (Ondansetron Hcl 4 Mg/2 Ml Vial) 4 mg IVPUSH Q8H PRN PRN Reason: Nausea Last Admin: 01/09/22 13:00 Dose: 4 mg Documented by: VERONICA Pharmacy Consult (Consult Rx Perform Med Rec) 1 each MISCELLANE ONCE PRN PRN Reason: Consult order Sodium Chloride (0.9 % Sodium Chloride Flush 3 Ml Syringe) 3 ml IVFLUSH QSHIFT [facility]S [facility]CLUDE 234 BEDS AT [facility] Last Admin: 01/11/22 20:40 Dose: 3 ml Documented by: LUANA Sodium Hypochlorite (Sodium Hypochlorite 0.5% 473 Ml Solution) 1 appl TOPICAL DAILY [facility]CLUDE 234 BEDS AT [facility] Last Admin: 01/11/22 08:37 Dose: 1 appl Documented by: LISSA Spironolactone (Spironolactone 25 Mg Tablet) 25 mg PO DAILY [facility]CLUDE 234 BEDS AT [facility]; Protocol Last Admin: 01/11/22 08:36 Dose: 25 mg Documented by: LISSA Labs CBC & Chem 7: 01/12/22 06:16 01/12/22 06:16 Labs: Laboratory Results - last 24 hr 01/11/22 01/11/22 01/11/22 11:11 13:07 15:32 MCV MCH MCHC RDW Plt Count MPV Immature Gran % (Auto) Neut % (Auto) Lymph % (Auto) [place] % (Auto) Eos % (Auto) Baso % (Auto) Lymph # (Auto) [place] # (Auto) Eos # (Auto) Baso # (Auto) Abs Immat Gran (auto) Absolute Neuts (auto) Absolute Nucleated RBC Nucleated RBC % (auto) Smear Tech's Comments Anion Gap Estim Creat Clear Calc Estimated GFR POC Glucose 178 H 153 H Random Glucose Fasting Glucose Calcium Total Bilirubin AST ALT Alkaline Phosphatase B-Natriuretic Peptide 446 H Total Protein Albumin 01/11/22 01/11/22 01/12/22 19:54 23:24 06:16 MCV 87.4 MCH 26.9 L MCHC 30.8 L RDW 23.5 H Plt Count 416 H D MPV 9.9 Immature Gran % (Auto) 3.9 H Neut % (Auto) 62.3 Lymph % (Auto) 18.7 L [place] % (Auto) 11.5 H Eos % (Auto) 2.6 Baso % (Auto) 1.0 Lymph # (Auto) 2.5 [place] # (Auto) 1.5 H Eos # (Auto) 0.4 Baso # (Auto) 0.1 Abs Immat Gran (auto) 0.52 H Absolute Neuts (auto) 8.2 Absolute Nucleated RBC 0.060 H Nucleated RBC % (auto) 0.5 H Smear Tech's Comments VERIFIED Anion Gap Estim Creat Clear Calc Estimated GFR POC Glucose 166 H 94 Random Glucose Fasting Glucose Calcium Total Bilirubin AST ALT Alkaline Phosphatase B-Natriuretic Peptide Total Protein Albumin 01/12/22 01/12/22 01/12/22 06:16 06:16 07:18 MCV MCH MCHC RDW Plt Count MPV Immature Gran % (Auto) Neut % (Auto) Lymph % (Auto) [place] % (Auto) Eos % (Auto) Baso % (Auto) Lymph # (Auto) [place] # (Auto) Eos # (Auto) Baso # (Auto) Abs Immat Gran (auto) Absolute Neuts (auto) Absolute Nucleated RBC Nucleated RBC % (auto) Smear Tech's Comments Anion Gap 12 Estim Creat Clear Calc 101.0 Estimated GFR > 60 POC Glucose 93 Random Glucose TNP Fasting Glucose 86 Calcium 8.4 Total Bilirubin 0.9 AST 18 ALT 40 H Alkaline Phosphatase 87 B-Natriuretic Peptide 342 H Total Protein 5.5 L Albumin 2.9 L Microbiology Microbiology Results: Microbiology 01/09/22 08:01 Blood Culture - Preliminary Blood - Venous No growth after 48 hours. 01/09/22 07:51 Blood Culture - Preliminary Blood - Venous No growth after 48 hours. Procedures Date of Service Date of Service: 01/12/22 Progress Note: A&P Assessment and plan (1) Fistula: Status: Acute (2) Sacral decubitus ulcer: Status: Acute Plan 66-year-old female patient multiple medical problems including diabetes, COPD, PAF, anemia, and CKD with a persistent sacral decubitus ulcer. She has undergone multiple debridements down to viable tissue only to have progression of the necrosis deeper. 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 Patient has had maximal treatment including wound VAC placement without significant improvement. Patient is at high risk for anesthesia due to her medical problems leaving limited options for management. I am unable to adequately debride the wound under local anesthesia and Wounds appear unlikely to heal given the patient's overall condition. Recommend local management with Dakin solution and consideration of comfort measures. Fall Risk Details Current Medications: Current Medications Acetaminophen (Acetaminophen 325 Mg Tablet) 650 mg PO Q6H PRN PRN Reason: Fever Last Admin: 01/07/22 13:52 Dose: 650 mg Documented by: Amlodipine Besylate (Amlodipine Besylate 10 Mg Tablet) 10 mg PO DAILY [facility]S INCLUDE 234 BEDS AT THE [facility]; Protocol Last Admin: 01/11/22 08:36 Dose: 10 mg Documented by: Apixaban (Apixaban 5 Mg Tablet) 5 mg PO BID COUNTS INCLUDE 234 BEDS AT THE [facility] Last Admin: 01/11/22 20:39 Dose: 5 mg Documented by: Atorvastatin Calcium (Atorvastatin Calcium 10 Mg Tablet) 10 mg PO DAILY [facility]S INCLUDE 234 BEDS AT THE [facility] Last Admin: 01/11/22 08:36 Dose: 10 mg Documented by: Digoxin (Digoxin 0.25 Mg Tablet) 0.25 mg PO DAILY COUNTS INCLUDE 234 BEDS AT THE [facility] Last Admin: 01/11/22 08:36 Dose: 0.25 mg Documented by: Ferrous Sulfate (Ferrous Sulfate 324 Mg Tablet.) 324 mg PO BIDWM COUNTS INCLUDE 234 BEDS AT THE [facility] Last Admin: 01/11/22 18:43 Dose: 324 mg Documented by: Furosemide (Furosemide 40 Mg/4 Ml Vial) 40 mg IVPUSH BID@0900,1800 COUNTS INCLUDE 234 BEDS AT [facility]; Protocol Last Admin: 01/12/22 05:47 Dose: 40 mg Documented by: Haloperidol (Haloperidol 5 Mg Tablet) 5 mg PO BID COUNTS INCLUDE 234 BEDS AT THE [facility] Last Admin: 01/11/22 20:40 Dose: 5 mg Documented by: Hydroxyzine HCl (Hydroxyzine Hcl 25 Mg Tablet) 25 mg PO QID COUNTS INCLUDE 234 BEDS AT THE [facility] Last Admin: 01/11/22 20:39 Dose: 25 mg Documented by: Ampicillin Sodium/Sulbactam (Sodium 3 gm/ Sodium Chloride) 100 mls @ 200 mls/hr IV Q6H COUNTS INCLUDE 234 BEDS AT THE [facility] Insulin Human Lispro (Insulin Lispro 100 Unit/Ml 3 Ml Vial) 0 unit SUBCUT QIDACHS COUNTS INCLUDE 234 BEDS AT THE [facility]; Protocol Last Admin: 01/12/22 07:54 Dose: Not Given Documented by: Metoprolol Tartrate (Metoprolol Tartrate 25 Mg Tablet) 75 mg PO BID COUNTS INCLUDE 234 BEDS AT THE [facility]; Protocol Last Admin: 01/11/22 20:40 Dose: 75 mg Documented by: Metoprolol Tartrate (Metoprolol Tartrate 5 Mg/5 Ml Vial) 5 mg IVPUSH Q6H PRN PRN Reason: Heart Rate >100 Last Admin: 01/01/22 00:43 Dose: 5 mg Documented by: Morphine Sulfate (Morphine Sulfate 4 Mg/Ml Cartridge) 4 mg IVPUSH Q3H COUNTS INCLUDE 234 BEDS AT THE [facility]; Protocol Last Admin: 01/12/22 05:04 Dose: 4 mg Documented by: Multivitamins/Vitamin C (Multivitamin Tablet) 1 tab PO DAILY COUNTS INCLUDE 234 BEDS AT THE [facility] Last Admin: 01/11/22 08:36 Dose: 1 tab Documented by: Nystatin (Nystatin Powder 15 Gm Bottle) 1 appl TOPICAL TID COUNTS INCLUDE 234 BEDS AT THE [facility]; Protocol Last Admin: 01/11/22 20:49 Dose: 1 appl Documented by: Ondansetron HCl (Ondansetron Hcl 4 Mg/2 Ml Vial) 4 mg IVPUSH Q8H PRN PRN Reason: Nausea Last Admin: 01/09/22 13:00 Dose: 4 mg Documented by: Pharmacy Consult (Consult Rx Perform Med Rec) 1 each MISCELLANE ONCE PRN PRN Reason: Consult order Sodium Chloride (0.9 % Sodium Chloride Flush 3 Ml Syringe) 3 ml IVFLUSH QSHIFT COUNTS INCLUDE 234 BEDS AT THE [facility] Last Admin: 01/11/22 20:40 Dose: 3 ml Documented by: Sodium Hypochlorite (Sodium Hypochlorite 0.5% 473 Ml Solution) 1 appl TOPICAL DAILY COUNTS INCLUDE 234 BEDS AT THE [facility] Last Admin: 01/11/22 08:37 Dose: 1 appl Documented by: Spironolactone (Spironolactone 25 Mg Tablet) 25 mg PO DAILY COUNTS INCLUDE 234 BEDS AT THE [facility]; Protocol Last Admin: 01/11/22 08:36 Dose: 25 mg Documented by: Time Spent With Patient Time: Total time spent is greater than 50% in coordination of care (as documented) at patient's floor/unit and/or counseling patient: Time with patient: 15 - 24 minutes Quality Stroke Does the patient have a stroke diagnosis?: No VTE Prior VTE?: No VTE Risk Level:: Medical - moderate - high VTE Device Contraindication: Treatment Not Indicated VTE Drug Contraindication: N/A - Med Ordered
[2022-01-12] MEDS: Metoprolol Tartrate 25 MG TABLET 75 MG PO ×2 (09:12→20:17)
[2022-01-12] MEDS: Multivitamin TABLET 1 TAB PO (09:12)
[2022-01-12] MEDS: Apixaban 5 MG TABLET PO ×2 (09:12→20:17)
[2022-01-12] MEDS: amLODIPine Besylate 10 MG TABLET PO (09:12)
[2022-01-12] MEDS: 0.9 % Sodium Chloride Flush 3 ML SYRINGE IVFLUSH ×3 (09:12→20:20)
[2022-01-12] MEDS: HaloperidoL 5 MG TABLET PO ×2 (09:12→20:17)
[2022-01-12] MEDS: Digoxin 0.25 MG TABLET PO (09:12)
[2022-01-12] MEDS: Nystatin Powder 15 GM BOTTLE 1 APPL TOPICAL ×3 (09:13→20:19)
[2022-01-12] MEDS: Sodium Hypochlorite 0.5% 473 ML SOLUTION 1 APPL TOPICAL (09:13)
[2022-01-12] MEDS: Spironolactone 25 MG TABLET PO (09:13)
[2022-01-12] MEDS: Ferrous Sulfate 324 MG TABLET.DR PO ×2 (09:13→17:40)
[2022-01-12] MEDS: Atorvastatin Calcium 10 MG TABLET PO (09:13)
[2022-01-12] MEDS: hydrOXYzine HCL 25 MG TABLET PO ×4 (09:13→20:17)
--- NOTE | 2022-01-12 10:03 | HO.PM.IMPN ---
Subjective Subjective Date of Service: 01/12/22 Interval History: Placed on supplemental oxygen for mild hypoxia Diuresing On IV morphine for pain- standing Review of Systems Review of Systems: Yes all other systems are reviewed and are negative Physical Exam Vital Signs: Vital Signs: Last Vital Signs Temp 97.1 F 01/12/22 07:14 Pulse 65 01/12/22 07:14 Resp 19 01/12/22 07:14 BP 110/46 L 01/12/22 07:14 Pulse Ox 95 01/12/22 07:14 Oxygen Flow Rate 3 12/30/21 13:00 BMI result Body Mass Index 41.3 Gen: NAD HEENT: sclera anicteric, moist mucus membranes Neck: supple Lungs: diminished bilaterally Heart: regular, no murmurs Abd: soft, non-tender, non-distended, obese with pannus Ext: 1+ lower extremity edema, RUE PICC Skin: warm/well-perfused, very large stage 4 sacral decubitus ulcer Neuro: alert Psych: impaired insight Objective Data Active Medications Acetaminophen (Acetaminophen 325 Mg Tablet) 650 mg PO Q6H PRN PRN Reason: Fever Last Admin: 01/07/22 13:52 Dose: 650 mg Documented by: DOBROGilmer Amlodipine Besylate (Amlodipine Besylate 10 Mg Tablet) 10 mg PO DAILY [facility]; Protocol Last Admin: 01/12/22 09:12 Dose: 10 mg Documented by: LISSA Apixaban (Apixaban 5 Mg Tablet) 5 mg PO BID [facility] Last Admin: 01/12/22 09:12 Dose: 5 mg Documented by: LISSA Atorvastatin Calcium (Atorvastatin Calcium 10 Mg Tablet) 10 mg PO DAILY [facility] Last Admin: 01/12/22 09:13 Dose: 10 mg Documented by: LISSA Digoxin (Digoxin 0.25 Mg Tablet) 0.25 mg PO DAILY [facility] Last Admin: 01/12/22 09:12 Dose: 0.25 mg Documented by: LISSA Ferrous Sulfate (Ferrous Sulfate 324 Mg Tablet.) 324 mg PO BIDWM [facility] Last Admin: 01/12/22 09:13 Dose: 324 mg Documented by: LISSA Furosemide (Furosemide 40 Mg/4 Ml Vial) 40 mg IVPUSH BID@0900,1800 [facility]; Protocol Last Admin: 01/12/22 09:11 Dose: 40 mg Documented by: LISSA Haloperidol (Haloperidol 5 Mg Tablet) 5 mg PO BID [facility] Last Admin: 01/12/22 09:12 Dose: 5 mg Documented by: LISSA Hydroxyzine HCl (Hydroxyzine Hcl 25 Mg Tablet) 25 mg PO QID [facility] Last Admin: 01/12/22 09:13 Dose: 25 mg Documented by: LISSA Ampicillin Sodium/Sulbactam (Sodium 3 gm/ Sodium Chloride) 100 mls @ 200 mls/hr IV Q6H [facility] Insulin Human Lispro (Insulin Lispro 100 Unit/Ml 3 Ml Vial) 0 unit SUBCUT QIDACHS [facility]; Protocol Last Admin: 01/12/22 07:54 Dose: Not Given Documented by: LISSA Non-Admin Reason: No Insulin Coverage Metoprolol Tartrate (Metoprolol Tartrate 25 Mg Tablet) 75 mg PO BID [facility]; Protocol Last Admin: 01/12/22 09:12 Dose: 75 mg Documented by: LISSA Metoprolol Tartrate (Metoprolol Tartrate 5 Mg/5 Ml Vial) 5 mg IVPUSH Q6H PRN PRN Reason: Heart Rate >100 Last Admin: 01/01/22 00:43 Dose: 5 mg Documented by: DOROTHY Morphine Sulfate (Morphine Sulfate Er 30 Mg Tablet.Er) 30 mg PO Q12H [facility] Morphine Sulfate (Morphine Sulfate Immed Release 15 Mg Tablet) 15 mg PO Q8H PRN PRN Reason: Breakthrough Pain Multivitamins/Vitamin C (Multivitamin Tablet) 1 tab PO DAILY [facility] Last Admin: 01/12/22 09:12 Dose: 1 tab Documented by: LISSA Nystatin (Nystatin Powder 15 Gm Bottle) 1 appl TOPICAL TID [facility]; Protocol Last Admin: 01/12/22 09:13 Dose: 1 appl Documented by: LISSA Ondansetron HCl (Ondansetron Hcl 4 Mg/2 Ml Vial) 4 mg IVPUSH Q8H PRN PRN Reason: Nausea Last Admin: 01/09/22 13:00 Dose: 4 mg Documented by: VERONICA Pharmacy Consult (Consult Rx Perform Med Rec) 1 each MISCELLANE ONCE PRN PRN Reason: Consult order Sodium Chloride (0.9 % Sodium Chloride Flush 3 Ml Syringe) 3 ml IVFLUSH QSHIFT [facility] Last Admin: 01/12/22 09:12 Dose: 3 ml Documented by: LISSA Sodium Hypochlorite (Sodium Hypochlorite 0.5% 473 Ml Solution) 1 appl TOPICAL DAILY [facility] Last Admin: 01/12/22 09:13 Dose: 1 appl Documented by: LISSA Spironolactone (Spironolactone 25 Mg Tablet) 25 mg PO DAILY [facility]; Protocol Last Admin: 01/12/22 09:13 Dose: 25 mg Documented by: LISSA Labs CBC & Chem 7: 01/12/22 06:16 01/12/22 06:16 Labs: Laboratory Results - last 24 hr 01/11/22 01/11/22 01/11/22 11:11 13:07 15:32 MCV MCH MCHC RDW Plt Count MPV Immature Gran % (Auto) Neut % (Auto) Lymph % (Auto) [place] % (Auto) Eos % (Auto) Baso % (Auto) Lymph # (Auto) [place] # (Auto) Eos # (Auto) Baso # (Auto) Abs Immat Gran (auto) Absolute Neuts (auto) Absolute Nucleated RBC Nucleated RBC % (auto) Smear Tech's Comments Anion Gap Estim Creat Clear Calc Estimated GFR POC Glucose 178 H 153 H Random Glucose Fasting Glucose Calcium Total Bilirubin AST ALT Alkaline Phosphatase B-Natriuretic Peptide 446 H Total Protein Albumin 01/11/22 01/11/22 01/12/22 19:54 23:24 06:16 MCV 87.4 MCH 26.9 L MCHC 30.8 L RDW 23.5 H Plt Count 416 H D MPV 9.9 Immature Gran % (Auto) 3.9 H Neut % (Auto) 62.3 Lymph % (Auto) 18.7 L [place] % (Auto) 11.5 H Eos % (Auto) 2.6 Baso % (Auto) 1.0 Lymph # (Auto) 2.5 [place] # (Auto) 1.5 H Eos # (Auto) 0.4 Baso # (Auto) 0.1 Abs Immat Gran (auto) 0.52 H Absolute Neuts (auto) 8.2 Absolute Nucleated RBC 0.060 H Nucleated RBC % (auto) 0.5 H Smear Tech's Comments VERIFIED Anion Gap Estim Creat Clear Calc Estimated GFR POC Glucose 166 H 94 Random Glucose Fasting Glucose Calcium Total Bilirubin AST ALT Alkaline Phosphatase B-Natriuretic Peptide Total Protein Albumin 01/12/22 01/12/22 01/12/22 06:16 06:16 07:18 MCV MCH MCHC RDW Plt Count MPV Immature Gran % (Auto) Neut % (Auto) Lymph % (Auto) [place] % (Auto) Eos % (Auto) Baso % (Auto) Lymph # (Auto) [place] # (Auto) Eos # (Auto) Baso # (Auto) Abs Immat Gran (auto) Absolute Neuts (auto) Absolute Nucleated RBC Nucleated RBC % (auto) Smear Tech's Comments Anion Gap 12 Estim Creat Clear Calc 101.0 Estimated GFR > 60 POC Glucose 93 Random Glucose TNP Fasting Glucose 86 Calcium 8.4 Total Bilirubin 0.9 AST 18 ALT 40 H Alkaline Phosphatase 87 B-Natriuretic Peptide 342 H Total Protein 5.5 L Albumin 2.9 L Impressions Chest X-Ray 01/11/22 11:40 IMPRESSION: Volume loss to the left hemithorax. Improving left lower lobe pneumonia. Stable enlargement of the cardiac silhouette. Right perihilar airspace disease. Differential would include pulmonary edema and pneumonia. Microbiology Microbiology Results: Microbiology 01/09/22 08:01 Blood Culture - Preliminary Blood - Venous No growth after 48 hours. 01/09/22 07:51 Blood Culture - Preliminary Blood - Venous No growth after 48 hours. Assessment and Plan (1) Sacral decubitus ulcer: Status: Acute (2) Fistula: Status: Acute Plan hospital d#49 66-year-old F sent in from [facility], PMHx of alcoholic cirrhosis, dementia, schizoaffective disorder admitted for acute?exacerbation of underlying congestive heart failure further complicated by AF/RVR, COPD exacerbation and development of angioedema requiring intubation for ventilatory support on 11/27 extubated 11/29.? 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 on 12/06, again developed respiratory failure and nearly obtunded with no gag reflex and was transferred again to ICU and re-intubated;extubated 12/13, stepped down to medical floor 2/2 hospitalization complicated by stage IV coccygeal decubitus ulcer then found to have fistula episode of bleeding from wound requiring surgical intervention 01/08 and causing hypotension/anemia # HFpEF, [id number] - likely due to recent volume repletion - will continue IV diuresis for 1 more day - continue metoprolol + spironolactone # acute hypoxic respiratory failure - due to CHF exacerbation, wean O2 as she diureses # acute blood loss anemia superimposed on chronic anemia - good response to transfusion, Hb now stable - continue oral iron supplementation # hypotension - related to anemia; resolved after transfusion + colloid replacement # Stage IV coccygeal decubitus ulcer - s/p multiple operative debridements/cauterization of bleeding. - Dakins, gauze, pulsating air mattress, wedge, avoid lying on back. VAC not helping per Surg given fistula - pip/rose d#4 -> amp/sul, change to amox/clav upon discharge - transition IV to PO morphine for pain control- MSSR + MSIR # pAF - continue metoprolol + digoxin - anticoagulated with apixaban # HTN - acceptable control on current therapies: metoprolol, spironolactone, and amlodipine # DM2 - acceptable control on current therapies: correction-dose lispro # schizoaffective disorder - haloperidol, hydroxyzine # VTE ppx - apixaban # dispo - plan return to [facility] possibly tomorrow Quality Stroke Does the patient have a stroke diagnosis?: No VTE Prior VTE?: No VTE Risk Level:: Medical - moderate - high VTE Device Contraindication: Treatment Not Indicated VTE Drug Contraindication: N/A - Med Ordered
--- NOTE | 2022-01-12 11:39 | MHC.SLORD ---
Speech Language Pathology Order Status: DOG OR HORSE RACING OFFICIAL attempted to see patient for PO trials. Patient refused dysphagia treatment this morning. She is on [facility] (NDD2) solids and THIN liquids.
[2022-01-12 11:45] LABS: Glucose, Whole Blood 184 mg/dL (60-115)
--- NOTE | 2022-01-12 11:58 | MHC.CLN ---
F/U PO INTAKE REMAINS POOR 25% DIET RX: GRD M/S-APPROPRIATE PT RECEIVING ENSURE BID AND LELAND BID TO PROVIDE 860KCALS, 45G PROTEIN FOR INCREASE KCALS AND PROMOTE WOUND HEALING, HOWEVER PT DOES REFUSE MEALS AND SUPPLEMENTS FREQUENTLY MD NOTED PT MOVING TO DIRECTOR COUNCIL ON AGING; NO INVASIVE MEASURES AT THIS TIME WILL CONTINUE TO FOLLOW X 7 DAYS AND PROVIDE SUPPORT NEEDED
[2022-01-12] MEDS: Insulin Lispro 100 UNIT/ML 3 ML VIAL SUBCUT (12:10)
[2022-01-12] MEDS: Ampicillin Sodium/Sulbactam Na 3 GM in 0.9 % Sodium Chloride 100 ML IV ×2 (12:11→17:41)
--- NOTE | 2022-01-12 13:29 | MHC.CM.PN ---
Per ROUNDS discussion, Patient will need another day of dieresis; Returning to SNF/LTC continues to be the goal for dc. CM will follow.
[2022-01-12] MEDS: Morphine Sulfate Oral Sol 10 MG/5 ML SOLUTION 15 MG PO ×3 (13:38→20:18)
[2022-01-12 16:10] LABS: Glucose, Whole Blood 129 mg/dL (60-115)
[2022-01-12 20:17] LABS: Glucose, Whole Blood 130 mg/dL (60-115)
[2022-01-13] MEDS: Ampicillin Sodium/Sulbactam Na 3 GM in 0.9 % Sodium Chloride 100 ML IV ×3 (00:39→11:19)
[2022-01-13 03:54] VITALS: BP 101/61; PULSE 75; RESP 18; TEMP 36.5; O2SAT 86
[2022-01-13] MEDS: Morphine Sulfate Oral Sol 10 MG/5 ML SOLUTION 5 MG PO (04:14)
[2022-01-13] MEDS: Melatonin 3 MG TABLET 6 MG PO (04:15)
[2022-01-13 06:35] LABS: B Type Natriuretic Peptide 397 pg/mL (<100)
[2022-01-13 07:01] LABS: Anion Gap 13 (12-20); Blood Urea Nitrogen 17 mg/dL (9-16); Calcium 7.9 mg/dL (8.4-10.2); Carbon Dioxide 41 mmol/L (22-29); Chloride 90 mmol/L (96-108); Creatinine Clr Calc Pharmacy 112.4; Estimated Glomerular Filt Rate > 60; Glucose Random 151 mg/dL (60-115); Potassium 3.5 mmol/L (3.3-5.1); Sodium 140 mmol/L (135-145)
[2022-01-13 07:31] LABS: Glucose, Whole Blood 131 mg/dL (60-115)
[2022-01-13 07:38] VITALS: BP 104/36; PULSE 82; RESP 19; TEMP 37.6; O2SAT 95
--- NOTE | 2022-01-13 07:52 | SUR.OPER ---
Wound assessment completed. Patient continues to have necrotic tissue in stage 4 sacral decubitis ulcer-gauze soaked with Dakins solution placed inside wound covered with ABD pads and tape. Patient is obese and her nutrition is poor-refuses to eat-pushes food away.
[2022-01-13 08:58] LABS: Magnesium 1.4 mg/dL (1.6-2.6)
[2022-01-13 09:08] VITALS: BP 106/52; PULSE 78
[2022-01-13] MEDS: Morphine Sulfate Oral Sol 10 MG/5 ML SOLUTION 15 MG PO (09:28)
[2022-01-13] MEDS: Magnesium Sulfate/H2O 2 GM/50 ML PIGGYBACK IV (09:28)
[2022-01-13] MEDS: hydrOXYzine HCL 25 MG TABLET PO (09:29)
[2022-01-13] MEDS: Multivitamin TABLET 1 TAB PO (09:29)
[2022-01-13] MEDS: Furosemide 40 MG TABLET PO (09:29)
[2022-01-13] MEDS: Ferrous Sulfate 324 MG TABLET.DR PO (09:29)
[2022-01-13] MEDS: Atorvastatin Calcium 10 MG TABLET PO (09:29)
[2022-01-13] MEDS: HaloperidoL 5 MG TABLET PO (09:29)
[2022-01-13] MEDS: Magnesium Oxide 400 MG TABLET 800 MG PO (09:29)
[2022-01-13] MEDS: 0.9 % Sodium Chloride Flush 3 ML SYRINGE IVFLUSH (09:29)
[2022-01-13] MEDS: Metoprolol Tartrate 25 MG TABLET 75 MG PO (09:29)
[2022-01-13] MEDS: Digoxin 0.25 MG TABLET PO (09:29)
[2022-01-13] MEDS: Apixaban 5 MG TABLET PO (09:29)
[2022-01-13] MEDS: Sodium Hypochlorite 0.5% 473 ML SOLUTION 1 APPL TOPICAL (09:30)
[2022-01-13] MEDS: Nystatin Powder 15 GM BOTTLE 1 APPL TOPICAL (09:30)
[2022-01-13 10:01] LABS: VBG Base Excess 25.8 mmol/L; VBG HCO3 52 mmol/L (22-26); VBG pCO2 60 mmHg; VBG pH 7.54 (7.32-7.43); VBG pO2 52 mmHg
[2022-01-13 10:01] LABS: Venous Blood Gas Refer to POC result
--- NOTE | 2022-01-13 10:14 | PC.NURSE ---
Wound care completed today. Patient's stage 4 pressure ulcer appears to be slowly healing. There is granulation tissue at base of deep section of wound with some necrotic tissue and slough present. The buttocks have pink granulation with good blood flow. Kerlix gauze roll soak with Dakin's solution packed into wound bed to surface covered with ABD pads and tape. All other small abrasions on body and face have healed.
[2022-01-13 11:02] LABS: Glucose, Whole Blood 204 mg/dL (60-115)
[2022-01-13 11:05] VITALS: PULSE 59; RESP 18; TEMP 36.7; O2SAT 92
[2022-01-13] MEDS: Insulin Lispro 100 UNIT/ML 3 ML VIAL SUBCUT (11:19)
[2022-01-13 12:00] VITALS: BP 102/54
--- NOTE | 2022-01-13 12:00 | PM.DS ---
DS: Providers Provider Date of Service: 01/13/22 Date of admission: 11/25/21 02:13 Primary care physician: Rony Hogan DO Consults: 11/25/21 03:56 Consult to Cardiology Routine Consulting Provider: Ibrahima Brown Reason for consultation: a fib new onset Has provider been notified: No Consult to Nephrology Routine Consulting Provider: [facility] Reason for consultation: hyponatremia Has provider been notified: No 12/06/21 11:07 Consult to Critical Care Routine Consulting Provider: Ralph Wilson Reason for consultation: Acute respiratory failure with hypercarbia Has provider been notified: Yes 12/08/21 11:50 Consult to Infectious Diseases Routine Consulting Provider: Sabi Desai Reason for consultation: Fever and WBC, no source Has provider been notified: Yes 12/15/21 10:34 Consult to General Surgery Routine Consulting Provider: Julio Jiménez Reason for consultation: Patient has necrotic tissue to bilateral buttocks to coccyx- ?debridement 12/31/21 14:03 Consult to Critical Care Stat Consulting Provider: Ralph Wilson Reason for consultation: Increase RR, chronic resp failure Has provider been notified: Yes DS: Diagnosis Discharge Diagnosis (1) Sacral decubitus ulcer: Status: Acute (2) Fistula: Status: Acute (3) PAF (paroxysmal atrial fibrillation): Status: Acute (4) Acute on chronic diastolic (congestive) heart failure: Status: Acute (5) CHF exacerbation: Status: Acute (6) Acute respiratory failure: Status: Acute (7) Angioedema: Status: Acute (8) Pneumonia: Status: Acute (9) Acute blood loss anemia: Status: Acute (10) Hypotension: Status: Acute (11) Morbid obesity: Status: Acute (12) ANGEL (obstructive sleep apnea): Status: Acute (13) Obesity hypoventilation syndrome: Status: Acute DS: Summary Hospital Course Hospital Course: From admission History and Physical by hospitalist Tia Clay MD, 11/25/21: this is a 58-year-old female past medical history of alcoholic cirrhosis, dementia, hyponatremia, chronic renal disease, schizoaffective disorder, asthma who presents to the hospital from group home with complaints of palpitations and shortness of breath.? Patient? is also complaining back and abdominal pain that started today. she is vague about her symptoms but reports chronic back pain that is causing her a lot of pain now. She reports dyspnea on minimal exertion, lower extremity swelling for the past few days, denies any orthopnea or PND. She denies any cough, no fever or chills. no nausea or vomiting. no diarhea or constipation. No urinary symptoms/ On arrival of EMS at group home pt found to have HR ranging from 90-150s in A fib with RVR. No hx of such On arrival to ED pt found to have HR of 149, no other abnormal vitals. labs are significant? for WBC count of 17.9, hemoglobin of 9.8 with dropped from 11.2, no problem INR of 1.3, potassium of 6.8, sodium of 121, potassium of 6.5 that improved to 5.8 see if no EKG changes glucose of 30 had, asthma of 256, UA positive for WBC with no nitrites or leukocyte Estrace. ? Abdominal CT shows no acute finding within the abdomen or pelvis, cholelithiasis, anasarca and small ascites.? Small right pleural effusion with accompanying atelectasis. pt given one dose of Lovenox as well as diltiazem and will be admitted for further managemen This 66-year old woman sent in from [facility] with PMHx of alcoholic cirrhosis, dementia, schizoaffective disorder was admitted for acute?exacerbation of underlying congestive heart failure further complicated by AF/RVR, COPD exacerbation and development of angioedema requiring intubation for ventilatory support on 11/27. She was extubated 11/29.? 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 On 12/06, she again developed respiratory failure and was nearly obtunded with no gag reflex and was transferred again to ICU and re-intubated. She was again extubated 12/13 and then stepped down to the [facility] on 12/15. 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 She also had an episode of bleeding from the wound requiring surgical cauterization due to hypotension and anemia. Post-ICU hospital course by problem: # Acute on chronic respiratory failure with hypoxia and hypercapnea Multifactorial etiology including COPD, heart failure, and PNA on background of likely CPAP/OHS. She has chronic, metabolically compensated respiratory acidosis. She needs BiPAP at night or while asleep but refused it consistently. This can be revisited as an outpatient. In the meanwhile, she is on 2L O2 via nasal cannula. # HFpEF, [id number] She underwent several rounds of diuresis. She was placed on maintenance furosemide. She is on a beta-geovanny for AF rate control and hypertension. # Stage IV coccygeal decubitus ulcer She underwent operative debridement 12/28 and 12/31/21 and cauterization 01/07/22. Wound VAC was placed but then it was discovered that she had a fistula and the VAC caused further fecal contamination of the wound. She was placed on pulsating air mattress on her side, with wedge behind back. Wound care was done with Dakins and gauze. A diverting colostomy offered but this was declined by the patient's guardian; this was eminently reasonably given the patient's extremely high anesthesia risk. She was given antibiotic treatment with piperacillin/tazobactam, then ampicillin/sulbactam, transitioned to ertapenem upon discharge. # AF She was placed on digoxin and metoprolol for rate control and anticoagulated with apixaban. # Acute blood loss anemia superimposed on chronic anemia She had a good response to transfusion of pRBCs and was started on oral iron repletion. # Hypotension This was related to anemia; resolved after transfusion + colloid replacement. She was discharged back to [facility] after communicating with the physician there, Rony Hogan. Time Spent with Patient Time attestation: Total time spent providing and/or coordinating discharge services: Discharge coordination time: Greater than 30 minutes Quality: Stroke Does the patient have a stroke diagnosis?: No Physical Exam Vital Signs: Vital Signs: Last Vital Signs Temp 98.0 F 01/13/22 11:05 Pulse 59 01/13/22 11:05 Resp 18 01/13/22 11:05 BP 106/52 L 01/13/22 09:08 Pulse Ox 92 01/13/22 11:05 Oxygen Flow Rate 3 12/30/21 13:00 BMI result Body Mass Index 41.3 Gen: NAD HEENT: sclera anicteric, moist mucus membranes Neck: supple Lungs: diminished bilaterally Heart: regular, no murmurs Abd: soft, non-tender, non-distended, obese with pannus Ext: no lower extremity edema, RUE PICC Skin: warm/well-perfused, very large stage 4 sacral decubitus ulcer Neuro: alert Psych: impaired insight DS: Data Data Completed and Pending Completed studies during hospitalization [Text1]: Laboratory Results WBC 13.2 X10*3/uL (4.8-10.8) H 01/12/22 06:16 RBC 3.64 X10*6/uL (4.20-5.50) L 01/12/22 06:16 Hgb 9.8 g/dl (12.0-16.0) L 01/12/22 06:16 Hct 31.8 % (37.0-47.0) L 01/12/22 06:16 MCV 87.4 fL (80.0-98.0) 01/12/22 06:16 MCH 26.9 pg (27.0-33.0) L 01/12/22 06:16 MCHC 30.8 g/dl (31.0-35.0) L 01/12/22 06:16 RDW 23.5 % (11.0-16.0) H 01/12/22 06:16 Plt Count 416 X10*3/uL (160-400) H D 01/12/22 06:16 MPV 9.9 fL (9.4-12.3) 01/12/22 06:16 Immature Gran % (Auto) 3.9 % (0.0-0.4) H 01/12/22 06:16 Neut % (Auto) 62.3 % (45-73) 01/12/22 06:16 Lymph % (Auto) 18.7 % (20-40) L 01/12/22 06:16 Isabela % (Auto) 11.5 % (2-11) H 01/12/22 06:16 Eos % (Auto) 2.6 % (0-4) 01/12/22 06:16 Baso % (Auto) 1.0 % (0-2) 01/12/22 06:16 Lymph # (Auto) 2.5 X10*3/uL (1.2-4.9) 01/12/22 06:16 Isabela # (Auto) 1.5 X10*3/uL (0.1-1.2) H 01/12/22 06:16 Eos # (Auto) 0.4 X10*3/uL (0.0-0.4) 01/12/22 06:16 Baso # (Auto) 0.1 X10*3/uL (0.0-0.2) 01/12/22 06:16 Abs Immat Gran (auto) 0.52 X10*3/uL (0.00-0.03) H 01/12/22 06:16 Absolute Neuts (auto) 8.2 x10*3/uL (2.0-8.3) 01/12/22 06:16 Absolute Nucleated RBC 0.060 X10*3/uL (0.0-0.012) H 01/12/22 06:16 Nucleated RBC % (auto) 0.5 /100WBC (0.0-0.2) H 01/12/22 06:16 Neutrophils % (Manual) 89 % (45-73) H 11/24/21 20:38 Band Neutrophils % 2 % (3-5) L 11/24/21 20:38 Lymphocytes % (Manual) 6 % (20-40) L 11/24/21 20:38 Monocytes % (Manual) 3 % (2-11) 11/24/21 20:38 Abs Neuts (Manual) 16.3 X10*3/uL (2.0-8.3) H 11/24/21 20:38 Lymphocytes # (Manual) 1.1 X10*3/uL (1.2-4.9) L 11/24/21 20:38 Monocytes # (Manual) 0.5 X10*3/uL (0.1-1.2) 11/24/21 20:38 Platelet Estimate NORMAL (NORMAL) 11/24/21 20:38 Plt Morphology Comment NORMAL 11/24/21 20:38 RBC Morphology NOTED 11/24/21 20:38 Acanthocytes (Spur) 1+ (0-2) /OIF 11/24/21 20:38 Smear Tech's Comments VERIFIED 01/12/22 06:16 Smear Path Review SEE NOTE 11/26/21 06:32 PT 24.9 SEC (9.9-13.0) H 12/20/21 06:10 INR 2.2 (0.9-1.1) H 12/20/21 06:10 APTT 38.2 SEC (24.1-38.0) H 12/20/21 06:10 O2 Saturation 90.0 % 12/18/21 09:23 ABG pH at Pt Temp 7.49 (7.35-7.45) H 12/18/21 09:23 ABG pH (Temp Correct) 7.34 (7.35-7.45) L 12/06/21 10:55 ABG pCO2 at Pt Temp 48 mmHg (32-45) H 12/18/21 09:23 ABG pCO2 (Temp Corrct 84 mmHg (32-45) H* 12/06/21 10:55 ABG pO2 at Pt Temp 63 mmHg (83-108) L 12/18/21 09:23 ABG pO2 (Temp Correct 80 (83-108) L 12/06/21 10:55 ABG HCO3 37 mmol/L (22-26) H 12/18/21 09:23 ABG Base Excess (Actual) 13.1 mmol/L 12/18/21 09:23 VBG pH 7.54 (7.32-7.43) H 01/13/22 09:55 VBG pCO2 60 mmHg 01/13/22 09:55 VBG pO2 52 mmHg 01/13/22 09:55 VBG HCO3 52 mmol/L (22-26) H 01/13/22 09:55 VBG O2 Saturation 80.0 % 01/13/22 09:55 VBG Base Excess 25.8 mmol/L 01/13/22 09:55 Sodium 140 mmol/L (135-145) 01/13/22 06:00 Potassium 3.5 mmol/L (3.3-5.1) 01/13/22 06:00 Chloride 90 mmol/L (96-108) L 01/13/22 06:00 Carbon Dioxide 41 mmol/L (22-29) H* 01/13/22 06:00 Anion Gap 13 (12-20) 01/13/22 06:00 BUN 17 mg/dL (9-16) H 01/13/22 06:00 Creatinine 0.62 mg/dL (0.5-1.4) 01/13/22 06:00 Estim Creat Clear Calc 112.4 01/13/22 06:00 Estimated GFR > 60 01/13/22 06:00 POC Glucose 204 mg/dL (60-115) H 01/13/22 10:50 Random Glucose 151 mg/dL (60-115) H 01/13/22 06:00 Fasting Glucose 86 mg/dL (60-99) 01/12/22 06:16 Osmolality 255 mosm/kg (281-305) L 11/25/21 16:51 Lactic Acid 1.0 mmol/L (0.5-2.0) 01/09/22 04:31 Calcium 7.9 mg/dL (8.4-10.2) L 01/13/22 06:00 Phosphorus 2.9 mg/dL (2.7-4.5) 12/20/21 06:10 Magnesium 1.4 mg/dL (1.6-2.6) L* 01/13/22 06:00 Transferrin 156 mg/dL (188-341) L 12/31/21 09:32 Total Bilirubin 0.9 mg/dL (0.0-1.0) 01/12/22 06:16 Direct Bilirubin 0.4 mg/dL (0.0-0.5) 12/20/21 06:10 AST 18 U/L (5-31) 01/12/22 06:16 ALT 40 U/L (0-31) H 01/12/22 06:16 Alkaline Phosphatase 87 U/L (39-117) 01/12/22 06:16 Ammonia 29 umol/L (13-55) 11/30/21 13:50 Troponin I High Sens 4.1 ng/L (<3.5-17.0) 11/24/21 20:38 B-Natriuretic Peptide 397 pg/mL (<100) H 01/13/22 06:00 Total Protein 5.5 g/dL (6.5-8.0) L 01/12/22 06:16 Albumin 2.9 g/dL (3.5-5.0) L 01/12/22 06:16 Procalcitonin 0.15 ng/mL 12/09/21 05:20 TSH 1.33 uIU/mL (0.32-4.0) 11/25/21 16:51 Random Cortisol 19.8 ug/dL 11/26/21 06:32 Urine Color YELLOW 12/11/21 01:30 Urine Appearance CLEAR 12/11/21 01:30 Urine pH 6.0 (5.0-8.0) 12/11/21 01:30 Ur Specific [place] 1.015 (1.005-1.025) 12/11/21 01:30 Urine Protein NEG MG/DL (NEG-TRACE) 12/11/21 01:30 Urine Glucose (UA) NEG MG/DL (NEG) 12/11/21 01:30 Urine Ketones NEG MG/DL (NEG) 12/11/21 01:30 Urine Blood 1+ (NEG) H 12/11/21 01:30 Urine Nitrite NEG (NEG) 12/11/21 01:30 Ur Leukocyte Esterase NEG (NEG) 12/11/21 01:30 Urine RBC 5-9 /HPF (0) H 12/11/21 01:30 Urine WBC 1-4 /HPF (0-4) 12/11/21 01:30 Ur Squamous Epith Cells 1+ /LPF 12/11/21 01:30 Urine Bacteria 1+ /LPF 12/11/21 01:30 Urine Mucus 2+ /LPF 11/25/21 00:40 Urine Osmolality 539 mosm/kg (373-1093) 11/28/21 03:36 Ur Random Sodium < 20.0 mmol/L 11/28/21 03:37 Ur Random Potassium 79.7 mmol/L 11/25/21 11:28 Ur Random Chloride < 20.0 mmol/L 11/28/21 13:27 Stool Occult Blood POSITIVE (NEGATIVE) 12/12/21 02:35 Stool Leukocytes, Qual NEGATIVE (NEGATIVE) 12/08/21 16:31 Random Vancomycin 10.1 mcg/mL (15-20) L 12/10/21 15:53 Digoxin 0.6 ng/mL (0.8-2.0) L 12/20/21 06:14 C. difficile Tox B Gene NEGATIVE (Negative) 12/08/21 15:41 COVID-19 (JESSY) Negative (Negative) 12/29/21 11:30 COVID-19 Clin Com See Note 12/29/21 11:30 Influenza Type A (PCR) NEGATIVE (Negative) 12/11/21 19:09 Influenza Type B (PCR) NEGATIVE (Negative) 12/11/21 19:09 RSV RNA Qual (PCR) NEGATIVE (Negative) 12/11/21 19:09 SARS-CoV-2 RNA (RT-PCR) NEGATIVE (Negative) 12/11/21 19:09 Blood Type A Positive 01/09/22 08:01 Antibody Screen NEGATIVE 01/09/22 08:01 Crossmatch See Detail 01/09/22 08:[address] 12/08/21 00:19 IMPRESSION: * ET tube protrudes into the right mainstem bronchus slightly and should be pulled back at least 3 cm. * Bilateral multifocal infiltrates with small left effusion and trace right effusion. Collapse/consolidation left lower lobe. * Cholelithiasis. * Dilated fluid-filled colon and some mildly dilated. Small is small bowel. Focal point of obstruction is not seen. Findings may represent an ileus. This critical result was discussed with Dr. Mehta, at 12:45 AM on 12/08/2021 and it was ascertained that the content and urgency of the report was understood at the time of direct communication. Head CT 12/08/21 00:19 IMPRESSION: No acute intracranial pathology. Paranasal sinus opacification. PICC Line Insertion 01/05/22 08:54 IMPRESSION: Successful ultrasound and fluoroscopy-guided placement of right PICC catheter, 35 cm long, with its tip in proximal SVC, ready for use. Abdomen/Pelvis CT 01/06/22 16:38 IMPRESSION: Subcutaneous defect with surgical drain and presumed packing material noted in the gluteal cleft soft tissues overlying the sacrum with multiple foci of subcutaneous gas, without sai underlying fluid collection. A tract of soft tissue with subtle gas is noted tracking posteriorly from the rectum at 6:00 into the gluteal musculature, left lateral to the sacrum suggestive of a fistulous track, communicating with the gluteal defect. Skin thickening over the ventral abdominal and pelvic wall with infiltration of the underlying subcutaneous fat, recommend correlation with direct visualization to exclude soft tissue infection. Cholelithiasis. Motion degradation somewhat limits evaluation of the gallbladder, making wall thickening or subtle inflammatory change difficult to exclude on the basis of this exam and if any clinical concern an ultrasound could be obtained. A 4.7 cm unilocular simple appearing right adnexal cyst. Recommend follow-up ultrasound in 6-12 months. Trace right pleural effusion decreased from prior. Chest X-Ray 01/11/22 11:40 IMPRESSION: Volume loss to the left hemithorax. Improving left lower lobe pneumonia. Stable enlargement of the cardiac silhouette. Right perihilar airspace disease. Differential would include pulmonary edema and pneumonia. TTE 12/07/21 1. Limited study performed without any valvular Dopplers? ? ? 2.? Normal left ventricular systolic function as well as normal? RV systolic function by normal TAPSE ? 3. Small circumferential pericardial effusion? Discharge Plan Discharge Patient Disposition: [facility] Discharge Diagnosis: stage 4 coccygeal decubitus ulcer, s/p multiple operative debridements and cauterization of bleeding; with perirectal fistula acute blood loss anemia superimposed on chronic anemia [id number] HFpEF/CHF atrial fibrillation acute hypoxic respiratory failure chronic hypercarbic respiratory failure due to likely ANGEL/OHS Referrals: [facility] [Other] - 1 [place] [facility] [place]Provider Group[place] - 1 Week Rony Hogan DO [Primary Care Provider] - 1 Week Ibrahima Brown MD [Physician] - 1 Week Discharge Medications: New Eliquis 5 mg Tablet 5 mg PO BID Qty: 60 0RF furosemide 40 mg Tablet 40 mg PO DAILY Qty: 30 0RF Protocol: Hold for SBP< HOLD for SBP < : 90 digoxin 250 mcg (0.25 mg) Tablet 0.25 mg PO DAILY Qty: 30 0RF morphine 10 mg/5 mL Solution 20 mg PO QID Qty: 300 0RF morphine 10 mg/5 mL Solution 5 mg PO Q8H PRN (Reason: Breakthrough Pain) Qty: 300 0RF Dakin's Solution 0.5 % Solution 1 appl topical DAILY Qty: 500 0RF sodium chloride 0.9 % (flush) [BD PosiFlush Normal Saline 0.9] Syringe 3 ml IVFLUSH QSHIFT Qty: 300 0RF metoprolol tartrate 25 mg Tablet 75 mg PO BID Qty: 180 0RF Protocol: Hold for SBP/HR < HOLD for SBP < : 90 HOLD for HR < : 60 ferrous sulfate 324 mg (65 mg iron) Tablet,Delayed Release (Dr/Ec) 324 mg PO BIDWM Qty: 60 0RF ertapenem 1 gram recon soln 1 g IV Q24H Qty: 10 0RF Continued multivitamin Tablet 1 tab PO DAILY 0RF acetaminophen 325 mg Tablet 650 mg PO Q4H PRN (Reason: Pain) 0RF haloperidol 5 mg Tablet 5 mg PO BID 0RF atorvastatin 10 mg tablet 1 tab PO DAILY 0RF metformin 1,000 mg Tablet 1,000 mg PO BID 0RF Novolin R Regular U-100 Insuln 100 unit/mL Solution 1 sliding scale dose SUBCUT USEASDIRECTD 0RF hydroxyzine HCl 25 mg Tablet 25 mg PO QID 0RF nystatin 100,000 unit/gram Powder 1 appl TOPICAL BID 0RF albuterol sulfate [ProAir HFA] 90 mcg/actuation Hfa Aerosol Inhaler 2 puff INHALATION Q4H PRN (Reason: Wheezing) 0RF Deep Sea Nasal 0.65 % Aerosol,Whitney 2 spray INTRANASAL Q4H PRN (Reason: dryness) 0RF Combivent Respimat 20-100 mcg/actuation mist 1 puff inhalation BID 0RF Discontinued cyclobenzaprine 10 mg tablet 1 tab PO Q24H PRN (Reason: Muscle Spasm) 0RF sennosides [senna] 8.6 mg Tablet 8.6 mg PO DAILY 0RF sennosides [senna] 8.6 mg Tablet 17.2 mg PO BEDTIME 0RF nitrofurantoin macrocrystal 50 mg capsule 1 cap PO BEDTIME 0RF tolterodine 4 mg Capsule,Extended Release 24hr 4 mg PO DAILY 0RF azathioprine 50 mg tablet 2 tab PO DAILY 0RF calcium carbonate-vitamin D3 [Calcium 600 + D(3)] 600 mg-5 mcg (200 unit) Tablet 1 tab PO DAILY 0RF oxycodone-acetaminophen 5-325 mg Tablet 1 tab PO QID 0RF calcitonin (salmon) 200 unit/actuation spray,non-aerosol 1 spray intranasal DAILY 0RF nitroglycerin 0.4 mg Tablet, Sublingual 0.4 mg SUBLINGUAL Q5M PRN (Reason: Chest Pain) 0RF lisinopril 5 mg Tablet 5 mg PO DAILY 0RF mirtazapine 15 mg tablet 1 tab PO BEDTIME 0RF gabapentin 100 mg capsule 1 cap PO TID 0RF alum-mag hydroxide-simeth [[place]-Lanta] 200-200-20 mg/5 mL Suspension 30 ml PO Q4H PRN (Reason: gi upset) 0RF docusate sodium 100 mg Tablet 100 mg PO BID 0RF nicotine 7 mg/24 hr Patch 24 Hour 1 patch TRANSDERMAL Q24H PRN (Reason: Nicotine Cravings) 0RF Bengay Ultra Strength(menthol) 5 % Adhesive Patch,Medicated 1 patch TOPICAL DAILY PRN (Reason: Pain) 0RF Saccharomyces boulardii [Florastor] 250 mg Capsule 250 mg PO BID 0RF Levemir Flexpen 100 unit/mL (3 mL) Insulin Pen 110 unit SUBCUT BID@0630,1630 0RF sodium chloride 1,000 mg Tablet,Soluble 1,000 mg PO TID 0RF Januvia 100 mg Tablet 100 mg PO DAILY 0RF omeprazole 20 mg Tablet,Delayed Release (Dr/Ec) 20 mg PO BID 0RF Minerin Creme Cream 1 appl TOPICAL DAILY 0RF cranberry 450 mg Tablet 450 mg PO BID 0RF Trulicity 1.5 mg/0.5 mL Pen Injector 1.5 mg SUBCUT TU 0RF Discharge Orders: Discharge Order (Routine); Ordered 01/13/22 Ordered By: Andres Tabares Diet: diabetic diet and other Activity on Discharge: As tolerated Stand Alone Forms: Patient Portal Discharge page Activity Restrictions/Additional Instructions: Wound care instructions: Apply Ulta wound vac to coccyx/bilateral buttocks pressure ulcer, to be changed every . Would be best if followed by the wound care center once a week. The number is [phone]. Care Plan Goals: cardiovascular health Health Concerns: stage 4 coccygeal decubitus ulcer, s/p multiple operative debridements and cauterization of bleeding; with perirectal fistula acute blood loss anemia superimposed on chronic anemia [id number] HFpEF/CHF atrial fibrillation angioedema acute hypoxic respiratory failure chronic hypercarbic respiratory failure due to likely ANGEL/OHS Plan of Treatment: ertapenem 1 gm IV daily [via PICC] for 10 days wound care: Dakins + gauze daily. Pulsating air mattress. Foam wedge to keep patient on side; avoid lying on back. Nutritional supplements: Glucerna 1 can tid. ferrous sulfate 324 mg twice daily furosemide 40 mg once daily apixaban 5 mg twice daily metoprolol tartrate 75 mg twice daily digoxin 250 mcg once daily avoid lisinopril and other HILLARY inhibitors oxygen 2L via nasal cannula; wean as tolerated; goal SaO2 88-92% encourage BiPAP use at night and for naps though pt has been refusing Assessment: see Discharge Summary
[2022-01-13] MEDS: Ertapenem Sodium 1 GM in 0.9 % Sodium Chloride 50 ML IV (12:12)
[2022-01-13 12:16] LABS: COVID-19 Test Negative (Negative)
--- NOTE | 2022-01-13 12:43 | MHC.CM.PN ---
Patient has been medically cleared for dc to SNf today. Patient will return to LTC @ [facility] today at 2:30, via [facility]. CM has left a detailed message for Guardian, Akil Lizarraga Jr. @ [phone], informing him of the dc plan and addressing the IMM. Original IMM will be mailed certified letter to Guardian and a copy has been placed on the chart.
--- NOTE | 2022-01-13 12:45 | MHC.SLORD ---
Speech Language Pathology Order Status: Patient consistently refused dysphagia treatment- She is on appropriate consistencies GROUND/MECH ALTERED (NDD2) solids/ THIN liquids. Further ST intervention is no longer warranted. Please re-refer if there are any concerns or if we can be of further assistance.
[2022-01-13 14:47] LABS: Influenza A PCR NEGATIVE (Negative); Influenza B PCR NEGATIVE (Negative); Resp Syncy Virus RNA Qual PCR NEGATIVE (Negative); SARS COV2 PCR INHOUSE NEGATIVE (Negative)
[2022-01-13 15:03] VITALS: PULSE 59; RESP 20; TEMP 36.2; O2SAT 95
== END 2022-01-13 16:52 | disposition skilled nursing facility (03) | DRG 264 ==
LOC: HO.ED 11-25 01:47 → HO.EDOVER 11-25 02:27 → HO.S3 11-26 18:14 → HO.ICU 11-27 19:52 → HO.S3 12-02 13:39 → HO.ICU 12-02 16:03 → HO.IMC 12-03 17:21 → HO.ICU 12-06 16:52 → HO.IMC 12-15 13:43
PROVIDERS: Anesthesiology; Hospitalist; Internal Medicine; Internal Medicine Cardiovascular Disease; Internal Medicine Hypertension Specialist; Internal Medicine Nephrology; Internal Medicine Pulmonary Disease; Physician Assistant; Physician Assistant Medical; Radiology Diagnostic Radiology; Surgery; Admitting Provider Internal Medicine; Emergency Provider Internal Medicine; PCP Hospitalist; Visit Provider Family Medicine
PROC: 0KBP0ZZ Excision of Left Hip Muscle, Open Approach (ICD-10-PCS; principal; 2021-12-31 11:40)
PROC: 02HV33Z Insertion of Infusion Device into Superior Vena Cava, Percutaneous Approach (ICD-10-PCS; principal; 2022-01-05 08:00)
PROC: 0JC90ZZ Extirpation of Matter from Buttock Subcutaneous Tissue and Fascia, Open Approach (ICD-10-PCS; principal; 2022-01-07 23:30)
DX: I48.0 Paroxysmal atrial fibrillation (principal); L89.154 Pressure ulcer of sacral region, stage 4; J18.9 Pneumonia, unspecified organism; I50.33 Acute on chronic diastolic (congestive) heart failure; J96.01 Acute respiratory failure with hypoxia; G92.8 Other toxic encephalopathy; L89.153 Pressure ulcer of sacral region, stage 3; E87.1 Hypo-osmolality and hyponatremia; J44.0 Chronic obstructive pulmonary disease with (acute) lower respiratory infection; J44.1 Chronic obstructive pulmonary disease with (acute) exacerbation; I13.0 Hypertensive heart and chronic kidney disease with heart failure and stage 1 through stage 4 chronic kidney disease, or unspecified chronic kidney disease; T78.2XXA Anaphylactic shock, unspecified, initial encounter; N17.9 Acute kidney failure, unspecified; J98.19 Other pulmonary collapse; M86.9 Osteomyelitis, unspecified; K56.7 Ileus, unspecified; E87.3 Alkalosis; T82.534A Leakage of infusion catheter, initial encounter; E44.1 Mild protein-calorie malnutrition; Z68.43 Body mass index [BMI] 50.0-59.9, adult; E66.2 Morbid (severe) obesity with alveolar hypoventilation; D62 Acute posthemorrhagic anemia; J91.8 Pleural effusion in other conditions classified elsewhere; F03.90 Unspecified dementia, unspecified severity, without behavioral disturbance, psychotic disturbance, mood disturbance, and anxiety; F25.9 Schizoaffective disorder, unspecified; E87.6 Hypokalemia; T78.3XXA Angioneurotic edema, initial encounter; E78.5 Hyperlipidemia, unspecified; K70.30 Alcoholic cirrhosis of liver without ascites; I27.20 Pulmonary hypertension, unspecified; N18.9 Chronic kidney disease, unspecified; D63.1 Anemia in chronic kidney disease; E11.65 Type 2 diabetes mellitus with hyperglycemia; T88.4XXA Failed or difficult intubation, initial encounter; Z20.822 Contact with and (suspected) exposure to COVID-19; I95.9 Hypotension, unspecified; E11.69 Type 2 diabetes mellitus with other specified complication; Z87.891 Personal history of nicotine dependence; Z88.2 Allergy status to sulfonamides; Z79.4 Long term (current) use of insulin; Z79.01 Long term (current) use of anticoagulants; Z79.84 Long term (current) use of oral hypoglycemic drugs; Z79.899 Other long term (current) drug therapy; Z51.5 Encounter for palliative care
CPT/HCPCS: 0241U; 36415; 36430; 36573; 36600; 70450; 71045; 71250; 74176; 74177; 80048; 80051; 80053; 80076; 80162; 80202; 81001; 82040; 82140; 82272; 82436; 82533; 82565; 82803; 82947; 83605; 83735; 83880; 83930; 83935; 84100; 84133; 84145; 84300; 84443; 84466; 84484; 84520; 85007; 85014; 85018; 85025; 85027; 85610; 85730; 86850; 86900; 86901; 86923; 87040; 87070; 87071; 87077; 87086; 87205; 87493; 87635; 88304; 89055; 92526; 92610; 93005; 93308; 94002; 94003; 94640; 94660; 94762; 94799; 96365; 96366; 96367; 96375; 96376; 97110; 97163; 97167; 99024; 99285; 99291; C1751; C1758; J0171; J0282; J0295; J0456; J0610; J0690; J0696; J1160; J1170; J1335; J1940; J2060; J2250; J2270; J2405; J2543; J2930; J2997; J3010; J3370; J3475; P9016; P9047; Q9967

== ENCOUNTER 2022-03-29 10:43 | Inpatient (IN) | payer MEDICARE, MEDICAID, SELFPAY ==
[2022-03-29 11:08] VITALS: BP 101/65; BP 130/78; PULSE 72; PULSE 82; RESP 20; TEMP 36.9; O2SAT 96; BMI 45.2
--- NOTE | 2022-03-29 11:14 | ECG_ITS ---
Test Reason : chest pain Blood Pressure : / mmHG Vent. Rate : 065 BPM Atrial Rate : 000 BPM P-R Int : 000 ms QRS Dur : 066 ms QT Int : 374 ms P-R-T Axes : 000 147 -43 degrees QTc Int : 388 ms Suspect limb lead reversal, interpretation assumes no reversal Atrial fibrillation Low voltage QRS Lateral infarct , age undetermined Abnormal ECG When compared with ECG of 25-DEC-2021 21:37, Atrial fibrillation has replaced Sinus rhythm Lateral infarct is now Present Nonspecific T wave abnormality has replaced inverted T waves in Anterolateral leads Referred By: Generic ED Physician Electronically Signed By:
--- NOTE | 2022-03-29 11:45 | PC.NURSE ---
pt is alert and oriented, skin pwd, respirations even and unlabored, pt reports midsternal chest pain, n/v/d for a couple of days, pt is in a-fib on the monitor ranging from 50-70's, pt also has a large decubitus ulcer on the coccyx area with tunneling and visible packing, pt also has a mehta in place
--- NOTE | 2022-03-29 11:59 | ED_ITS ---
HPI - Chest Pain General Chief Complaint: Chest Pain Stated Complaint: ABN LAB,NAUSEA,VOMITING FROM SNF Time Seen by Provider: 03/29/22 11:54 Source: patient Mode of arrival: EMS Limitations: no limitations History of Present Illness HPI narrative: this is a 66 years old female care home resident with multiple medical problems including paroxysmal atrial fibrillation, diabetes, asthma,, schizoaffective disorder was sent here for evaluation because noted eating and drinking also complaining of chest pain MD complaint: chest pain Onset (ago): day(s) (1) Timing of current episode: constant Onset: during rest Pain location: substernal Quality: aching Relieving factors: nothing Risk Factors Coronary artery disease risk factors: diabetes and hypertension Related Data Home Medications Medication Instructions Recorded Confirmed acetaminophen 325 mg tablet 650 mg PO Q4H PRN 11/25/21 03/29/22 albuterol sulfate 90 mcg/actuation 2 puff INHALATION Q4H PRN 11/25/21 03/29/22 aerosol inhaler (ProAir HFA) atorvastatin 10 mg tablet 1 tab PO DAILY 11/25/21 03/29/22 haloperidol 5 mg tablet 5 mg PO BID 11/25/21 03/29/22 hydroxyzine HCl 25 mg tablet 25 mg PO TID 11/25/21 03/29/22 insulin regular human 100 unit/mL 1 sliding scale dose SUBCUT 11/25/21 03/29/22 injection solution (Novolin R USEASDIRECTD Regular U-100 Insulin) ipratropium 20 mcg-albuterol 100 1 puff INHALATION BID 11/25/21 03/29/22 mcg/actuation mist for inhalation (Combivent Respimat) metformin 1,000 mg tablet 1,000 mg PO BID 11/25/21 03/29/22 multivitamin 1 tab PO DAILY 11/25/21 03/29/22 nystatin 100,000 unit/gram topical 1 appl TOPICAL BID 11/25/21 03/29/22 powder sodium chloride 0.65 % nasal spray 2 spray INTRANASAL Q4H PRN 11/25/21 03/29/22 aerosol (Deep Sea Nasal) arginine 7 gram-glutamine 7 1 ea PO BID 03/29/22 03/29/22 gram-calcium HMB 1.5 gram oral powder pack (Edy) calcium carbonate 500 mg calcium 1,000 mg PO TIDWM 03/29/22 03/29/22 (1,250 mg) chewable tablet digoxin 250 mcg (0.25 mg) tablet 250 mcg PO DAILY 03/29/22 03/29/22 ferrous sulfate 300 mg (60 mg 324 mg PO BID 03/29/22 03/29/22 iron)/5 mL oral liquid lanolin alcohols-mineral 1 appl TOPICAL QSHIFT 03/29/22 03/29/22 oil-w.petrolatum-ceresin topical cream (Minerin Creme) metoclopramide HCl 10 mg tablet 10 mg PO TIDAC 03/29/22 03/29/22 metoprolol tartrate 75 mg tablet 75 mg PO BID 03/29/22 03/29/22 mirtazapine 15 mg tablet 1 tab PO BEDTIME 03/29/22 03/29/22 omeprazole 40 mg capsule,delayed 40 mg PO BID 03/29/22 03/29/22 release ondansetron HCl 8 mg tablet 8 mg PO Q8H PRN 03/29/22 03/29/22 oxycodone 10 mg tablet 10 mg PO Q6H PRN 03/29/22 03/29/22 prochlorperazine maleate 10 mg 10 mg PO Q8H PRN 03/29/22 03/29/22 tablet sennosides 8.6 mg tablet (senna) 8.6 mg PO DAILY PRN 03/29/22 03/29/22 zinc oxide-vitamin B5-vit E 11.3% 1 appl TOPICAL QSHIFT 03/29/22 03/29/22 topical cream (Balmex Adult Care) Previous Rx's Medication Instructions Recorded apixaban 5 mg tablet (Eliquis) 5 mg PO BID #60 tab 01/13/22 furosemide 40 mg tablet 40 mg PO DAILY #30 tab 01/13/22 Allergies Allergy/AdvReac Type Severity Reaction Status Date / Time lisinopril Allergy Severe Angioedema Verified 12/02/21 16:07 Sulfa (Sulfonamide Allergy Intermediate HIVES Verified 11/24/21 20:49 Antibiotics) Review of Systems Constitutional: Constitutional: Reports no additional constitutional complaints Eyes: Eyes: Reports no additional eye complaints ENT: Reports system reviewed and no additional complaints, except as documente d Cardiovascular: Cardiovascular: Reports no additional cardiovascular complaints Neurologic: Reports system reviewed and no additional complaints, except as documented PMFSH Past Medical History Medical History Acute anaphylaxis Acute encephalopathy Acute hyperkalemia Acute respiratory failure Alcoholic cirrhosis of liver Anemia Angioedema Asthma Atrial fibrillation with RVR CHF exacerbation Chronic hyponatremia CKD (chronic kidney disease) Crohn's disease Diastolic CHF with preserved left ventricular function, NYHA class 2 Dyspnea Fever of unknown origin Hyponatremia Hyponatremia Hyponatremia PAF (paroxysmal atrial fibrillation) Pneumonia Schizoaffective disorder Surgical History No pertinent past surgical history Social History Social History Household Members: None Housing: House Patient Tobacco Use Status: Former Tobacco user Use of substances other than those prescribed or required for medical reasons: No Advance Directives: No Advance Directives Information Provided: No service: No Physical Exam Vital Signs: Vital Signs: Last Vital Signs Temp 98.5 F 03/29/22 12:25 Pulse 69 03/29/22 12:25 Resp 15 03/29/22 12:25 BP 105/42 L 03/29/22 12:25 Pulse Ox 94 03/29/22 12:25 BMI result Body Mass Index 45.2 Const: General: cooperative Nutritional Appearance: average body habitus Orientation/consciousness: patient oriented x3 HEENT: Head: Yes normal to inspection Face and sinus: Yes normal facial exam Mouth: Normal oral and palatal mucosa present Throat: Yes posterior oropharynx normal Neck: Neck: Yes full ROM Chest: Chest palpation & inspection: normal inspection of the chest Resp: Effort & Inspection: normal respiratory effort and able to speak in complete sentences Auscultation: clear to auscultation bilaterally Cardio: Jugular venous distension: no JVD Rate: regular rate GI: Inspection: Yes normal to inspection Palpation (GI): Soft to palpation, no guarding and not rigid Skin: General skin exam: no rashes or lesions noted Neuro: General: patient oriented x3 Course Reevaluation(s) Reevaluation #1: I discussed the case with Dr Hogan who accept the pt MDM - Chest Pain Lab Data Result diagrams: 03/29/22 12:18 03/29/22 12:18 Labs: Lab Results 05/17/22 05/17/22 05/17/22 Range/Units 12:18 12:18 12:18 WBC 10.9 H (4.8-10.8) X10*3/uL RBC 4.59 D (4.20-5.50) X10*6/uL Hgb 12.2 D (12.0-16.0) g/dl Hct 36.3 L (37.0-47.0) % MCV 79.1 L (80.0-98.0) fL MCH 26.6 L (27.0-33.0) pg MCHC 33.6 (31.0-35.0) g/dl RDW 18.1 H (11.0-16.0) % Plt Count 407 H (160-400) X10*3/uL MPV 9.8 (9.4-12.3) fL Immature Gran % (Auto) 1.6 H (0.0-0.4) % Neut % (Auto) 81.7 H (45-73) % Lymph % (Auto) 8.8 L (20-40) % Bollinger % (Auto) 7.7 (2-11) % Eos % (Auto) 0.1 (0-4) % Baso % (Auto) 0.1 (0-2) % Lymph # (Auto) 1.0 L (1.2-4.9) X10*3/uL Bollinger # (Auto) 0.8 (0.1-1.2) X10*3/uL Eos # (Auto) 0.0 (0.0-0.4) X10*3/uL Baso # (Auto) 0.0 (0.0-0.2) X10*3/uL Abs Immat Gran (auto) 0.17 H (0.00-0.03) X10*3/uL Absolute Neuts (auto) 8.9 H (2.0-8.3) x10*3/uL Absolute Nucleated RBC 0.000 (0.0-0.012) X10*3/uL Nucleated RBC % (auto) 0.0 (0.0-0.2) /100WBC Sodium 132 L (135-145) mmol/L Potassium 5.4 H D (3.3-5.1) mmol/L Chloride 98 (96-108) mmol/L Carbon Dioxide 22 (22-29) mmol/L Anion Gap 17 (12-20) BUN 46 H D (9-16) mg/dL Creatinine 3.28 H (0.5-1.4) mg/dL Estim Creat Clear Calc 17.2 Estimated GFR 14 Random Glucose 131 H (60-115) mg/dL Calcium 6.2 L D (8.4-10.2) mg/dL Total Bilirubin 0.5 (0.0-1.0) mg/dL AST 21 (5-31) U/L ALT 16 (0-31) U/L Alkaline Phosphatase 134 H D (39-117) U/L Troponin I High Sens 29.8 H D (<3.5-17.0) ng/L Total Protein 5.7 L (6.5-8.0) g/dL Albumin 2.6 L (3.5-5.0) g/dL ECG Data ECG #1: Pacemaker model: EKG shows normal sinus rhythm rate [address]-T changes Discharge Plan Discharge Clinical Impression: Acute renal failure Patient Disposition: Admitted As Inpatient
[2022-03-29 12:21] LABS: MANUAL DIFF FLAG NO
[2022-03-29] MEDS: 0.9 % Sodium Chloride 1,000 ML 999 ML IVCONT ×2 (12:22→16:58)
[2022-03-29] MEDS: ondansetron HCL 4 MG/2 ML VIAL IVPUSH (12:22)
[2022-03-29 12:24] LABS: Basophils Percent Auto 0.1 % (0-2); Eosinophils Percent Auto 0.1 % (0-4); Hematocrit 36.3 % (37.0-47.0); Hemoglobin 12.2 g/dl (12.0-16.0); Imm Gran Abs Auto 0.17 X10*3/uL (0.00-0.03); Imm Gran Pct Auto 1.6 % (0.0-0.4); Lymphocytes Percent Auto 8.8 % (20-40); Mean Corpuscular HGB Conc 33.6 g/dl (31.0-35.0); Mean Corpuscular Hemoglobin 26.6 pg (27.0-33.0); Mean Corpuscular Volume 79.1 fL (80.0-98.0); Mean Platelet Volume 9.8 fL (9.4-12.3); Monocytes Absolute Auto 0.8 X10*3/uL (0.1-1.2); Monocytes Percent Auto 7.7 % (2-11); Neutrophils Absolute Auto 8.9 x10*3/uL (2.0-8.3); Neutrophils Percent Auto 81.7 % (45-73); Platelet Count 407 X10*3/uL (160-400); Red Blood Count 4.59 X10*6/uL (4.20-5.50); Red Cell Distribution Width 18.1 % (11.0-16.0); White Blood Count 10.9 X10*3/uL (4.8-10.8)
[2022-03-29 12:25] VITALS: BP 105/42; PULSE 69; RESP 15; TEMP 36.9; O2SAT 94
[2022-03-29 12:41] LABS: Troponin-I High Sensitivity 29.8 ng/L (<3.5-17.0)
[2022-03-29 12:46] LABS: Alanine Aminotransferase 16 U/L (0-31); Albumin Level 2.6 g/dL (3.5-5.0); Alkaline Phosphatase 134 U/L (39-117); Anion Gap 17 (12-20); Aspartate Amino Transferase 21 U/L (5-31); Bilirubin Total 0.5 mg/dL (0.0-1.0); Blood Urea Nitrogen 46 mg/dL (9-16); Carbon Dioxide 22 mmol/L (22-29); Chloride 98 mmol/L (96-108); Creatinine Clr Calc Pharmacy 17.2; Estimated Glomerular Filt Rate 14; Glucose Random 131 mg/dL (60-115); Potassium 5.4 mmol/L (3.3-5.1); Sodium 132 mmol/L (135-145); Total Protein 5.7 g/dL (6.5-8.0)
--- NOTE | 2022-03-29 12:54 | PHA.MEDREC ---
Pharmacy Consult ? Medication Reconciliation Pharmacy has completed the medication reconciliation. Patient came from [facility] with a medication list. Wendy Weir, AvD
[2022-03-29 13:14] LABS: Calcium 6.2 mg/dL (8.4-10.2)
[2022-03-29] MEDS: 0.9 % Sodium Chloride 1,000 ML 100 ML IVCONT (13:45)
[2022-03-29 15:19] VITALS: BP 75/42; PULSE 77; RESP 16; TEMP 36.6; O2SAT 99
--- NOTE | 2022-03-29 15:52 | P.HPHOSP_ITS ---
History of Present Illness Date of Service: 03/29/22 Chief Complaint: Intractable vomiting 66-year-old female well known to me from [facility] presents with approximately 7- 10 days of nausea and very limited p.o. intake. She did complain of stomach burning and reflux at [facility] for which she was started on a PPI in the a.m. and H2 RA in the HS. She did not tolerate IV volume repletion at [facility] and continue to to vomit bilious material. In ER, workup significant for acute kidney injury and relative hypotension. She received saline volume repletion Zofran and will be admitted for GI evaluation Review of Systems Review of Systems: Unable to obtain secondary to schizoaffective disorder [facility] Medical History (Updated 03/29/22 @ 15:56 by Rony Hogan DO) Acute anaphylaxis Acute encephalopathy Acute hyperkalemia Acute respiratory failure Alcoholic cirrhosis of liver Anemia Angioedema Asthma Atrial fibrillation with RVR CHF exacerbation Chronic hyponatremia CKD (chronic kidney disease) Crohn's disease Diastolic CHF with preserved left ventricular function, NYHA class 2 Dyspnea Fever of unknown origin Hyponatremia Hyponatremia Hyponatremia PAF (paroxysmal atrial fibrillation) Pneumonia Schizoaffective disorder Surgical History No pertinent past surgical history Social History Household Members: None Housing: House Patient Tobacco Use Status: Former Tobacco user Use of substances other than those prescribed or required for medical reasons: No Advance Directives: No Advance Directives Information Provided: No service: No Meds Allergies Allergy/AdvReac Type Severity Reaction Status Date / Time lisinopril Allergy Severe Angioedema Verified 12/02/21 16:07 Sulfa (Sulfonamide Allergy Intermediate HIVES Verified 11/24/21 20:49 Antibiotics) Active Medications: Current Medications Acetaminophen (Acetaminophen 325 Mg Tablet) 650 mg PO Q6H PRN PRN Reason: Pain, Mild (Pain Scale 1-3) Albuterol Sulfate (Albuterol Sulfate 90 Mcg 8 Gm Inhaler) 2 puff INHALE Q4H PRN PRN Reason: Wheezing Albuterol/Ipratropium (Albuterol/Iprat 2.5/0.5mg 3 Ml Ampul.Neb) 3 ml INHALE RBID GINGER Apixaban (Apixaban 5 Mg Tablet) 5 mg PO BID GINGER Atorvastatin Calcium (Atorvastatin Calcium 10 Mg Tablet) 10 mg PO DAILY [facility] Digoxin (Digoxin 0.25 Mg Tablet) 0.25 mg PO DAILY [facility] Ferrous Sulfate (Ferrous Sulfate 300 Mg/5 Ml Liquid) 324 mg PO BID [facility] Haloperidol (Haloperidol 5 Mg Tablet) 5 mg PO BID [facility] Hydroxyzine HCl (Hydroxyzine Hcl 25 Mg Tablet) 25 mg PO TID [facility] Sodium Chloride (Ns) 1,000 mls @ 100 mls/hr IVCONT .Q10H [facility] Last Admin: 03/29/22 13:45 Dose: 100 mls/hr Documented by: Sodium Chloride (Ns) 1,000 mls @ 999 mls/hr IVCONT .Q1H1M [facility] Stop: 03/29/22 17:00 Insulin Human Lispro (Insulin Lispro 100 Unit/Ml 3 Ml Vial) 0 unit SUBCUT QIDACHS [facility]; Protocol Mirtazapine (Mirtazapine 15 Mg Tablet) 15 mg PO BEDTIME [facility] Multivitamins/Vitamin C (Multivitamin Tablet) 1 tab PO DAILY [facility] Omeprazole (Omeprazole 40 Mg Capsule.Dr) 40 mg PO BID@0630,1630 [facility] Ondansetron HCl (Ondansetron Hcl 4 Mg/2 Ml Vial) 4 mg IVPUSH Q6H PRN PRN Reason: Nausea and Vomiting Sodium Chloride (0.9 % Sodium Chloride Flush 3 Ml Syringe) 3 ml IVFLUSH QSHIFT [facility] Home Medications Medication Instructions Recorded Confirmed Last Taken Type acetaminophen 325 mg tablet 650 mg PO Q4H PRN 11/25/21 03/29/22 11/23/21 History albuterol sulfate 90 mcg/actuation 2 puff INHALATION Q4H PRN 11/25/21 03/29/22 11/22/21 History aerosol inhaler (ProAir HFA) atorvastatin 10 mg tablet 1 tab PO DAILY 11/25/21 03/29/22 11/24/21 History haloperidol 5 mg tablet 5 mg PO BID 11/25/21 03/29/22 11/24/21 History hydroxyzine HCl 25 mg tablet 25 mg PO TID 11/25/21 03/29/22 11/24/21 History insulin regular human 100 unit/mL 1 sliding scale dose SUBCUT 11/25/21 03/29/22 11/24/21 History injection solution (Novolin R USEASDIRECTD Regular U-100 Insulin) ipratropium 20 mcg-albuterol 100 1 puff INHALATION BID 11/25/21 03/29/22 11/24/21 History mcg/actuation mist for inhalation (Combivent Respimat) metformin 1,000 mg tablet 1,000 mg PO BID 11/25/21 03/29/22 11/24/21 History multivitamin 1 tab PO DAILY 11/25/21 03/29/22 11/24/21 History nystatin 100,000 unit/gram topical 1 appl TOPICAL BID 11/25/21 03/29/22 Unknown History powder sodium chloride 0.65 % nasal spray 2 spray INTRANASAL Q4H PRN 11/25/21 03/29/22 11/24/21 History aerosol (Deep Sea Nasal) arginine 7 gram-glutamine 7 1 ea PO BID 03/29/22 03/29/22 Unknown History gram-calcium HMB 1.5 gram oral powder pack (Edy) calcium carbonate 500 mg calcium 1,000 mg PO TIDWM 03/29/22 03/29/22 Unknown History (1,250 mg) chewable tablet digoxin 250 mcg (0.25 mg) tablet 250 mcg PO DAILY 03/29/22 03/29/22 Unknown History ferrous sulfate 300 mg (60 mg 324 mg PO BID 03/29/22 03/29/22 Unknown History iron)/5 mL oral liquid lanolin alcohols-mineral 1 appl TOPICAL QSHIFT 03/29/22 03/29/22 Unknown History oil-w.petrolatum-ceresin topical cream (Minerin Creme) metoclopramide HCl 10 mg tablet 10 mg PO TIDAC 03/29/22 03/29/22 Unknown History metoprolol tartrate 75 mg tablet 75 mg PO BID 03/29/22 03/29/22 Unknown History mirtazapine 15 mg tablet 1 tab PO BEDTIME 03/29/22 03/29/22 Unknown History omeprazole 40 mg capsule,delayed 40 mg PO BID 03/29/22 03/29/22 Unknown History release ondansetron HCl 8 mg tablet 8 mg PO Q8H PRN 03/29/22 03/29/22 Unknown History oxycodone 10 mg tablet 10 mg PO Q6H PRN 03/29/22 03/29/22 Unknown History prochlorperazine maleate 10 mg 10 mg PO Q8H PRN 03/29/22 03/29/22 Unknown History tablet sennosides 8.6 mg tablet (senna) 8.6 mg PO DAILY PRN 03/29/22 03/29/22 Unknown History zinc oxide-vitamin B5-vit E 11.3% 1 appl TOPICAL QSHIFT 03/29/22 03/29/22 Un known History topical cream (Balmex Adult Care) Physical Exam Vital Signs and Narrative: Vital Signs: Last Vital Signs Temp 97.8 F 03/29/22 15:19 Pulse 77 03/29/22 15:19 Resp 16 03/29/22 15:19 BP 75/42 L 03/29/22 15:19 Pulse Ox 99 03/29/22 15:19 BMI result Body Mass Index 45.2 Const: Other: Awake alert confused HEENT: Other: Membranes dry Resp: Other: Clear to auscultation bilaterally no rales rhonchi or wheezes Cardio: Other: No S4; positive S1-S2; no S3 murmurs rubs or gallops GI: Other: Soft minimally tender diffusely with quiet bowel sounds. There are no acute peritoneal signs Extrem: Other: No edema bilaterally Results Labs CBC and Chem 7: 03/29/22 12:18 03/29/22 12:18 Labs: Laboratory Results - last 24 hr 03/29/22 03/29/22 03/29/22 12:18 12:18 12:18 MCV 79.1 L MCH 26.6 L MCHC 33.6 RDW 18.1 H Plt Count 407 H MPV 9.8 Immature Gran % (Auto) 1.6 H Neut % (Auto) 81.7 H Lymph % (Auto) 8.8 L Payne % (Auto) 7.7 Eos % (Auto) 0.1 Baso % (Auto) 0.1 Lymph # (Auto) 1.0 L Payne # (Auto) 0.8 Eos # (Auto) 0.0 Baso # (Auto) 0.0 Abs Immat Gran (auto) 0.17 H Absolute Neuts (auto) 8.9 H Absolute Nucleated RBC 0.000 Nucleated RBC % (auto) 0.0 Anion Gap 17 Estim Creat Clear Calc 17.2 Estimated GFR 14 Random Glucose 131 H Calcium 6.2 L D Total Bilirubin 0.5 AST 21 ALT 16 Alkaline Phosphatase 134 H D Troponin I High Sens 29.8 H D Total Protein 5.7 L Albumin 2.6 L Assessment and Plan (1) Acute renal failure: Status: Acute (2) ANGEL (obstructive sleep apnea): Status: Acute (3) Hyponatremia: Status: Acute (4) PAF (paroxysmal atrial fibrillation): Status: Acute Plan 58-year-old female with a history of paroxysmal AFib obesity hypoventilation syndrome and schizophrenia presents with approximately 7 in 10 days of poor p.o. intake in the backdrop of persistent nausea and vomiting. In the emergency room found to be hyponatremic and hypotensive. Received initial bolus of 2 L of saline and will be admitted for workup of presenting complaint 1. Nausea/vomiting -volume repletion with IV saline -GI consult -IV Zofran alternating with Compazine 2. Acute renal failure -likely from hypovolemia -replete volume with normal saline --follow renals/divalent 3. Hyponatremia -follow response to IVF -follow renals/divalents 4.PAF -acceptable control on current therapies -metoprolol held secondary to hypotension will add back when appropriate -continue Eliquis Full code Eliquis Patient will require at least 2 midnights going forward for volume repletion and normalization of sodium along with GI workup. This cannot be accomplished at a lesser acute facility Quality Stroke Does the patient have a stroke diagnosis?: No VTE Prior VTE?: No VTE Risk Level:: Medical - moderate - high VTE Device Contraindication: Treatment Not Indicated VTE Drug Contraindication: N/A - Med Ordered
[2022-03-29] MEDS: Omeprazole 40 MG CAPSULE.DR PO (16:57)
[2022-03-29] MEDS: hydrOXYzine HCL 25 MG TABLET PO (16:57)
[2022-03-29 16:58] VITALS: BP 98/56; PULSE 77; RESP 20; O2SAT 98
[2022-03-29 17:15] LABS: COVID-19 Test Negative (Negative); IDNOW Serial# 08D9AD1C
[2022-03-29 18:35] LABS: Glucose, Whole Blood 105 mg/dL (60-115)
[2022-03-29 19:16] VITALS: BP 96/25; PULSE 75; RESP 14; O2SAT 98
--- NOTE | 2022-03-29 19:17 | PC.NURSE ---
Danny mejía MD made aware.
--- NOTE | 2022-03-29 19:25 | MHC.CM.PN ---
IMM 03/29. Message left with Guardian Brand Attendant Akil Lizarraga ([phone]) on 03/29@ [phone]. Will send via certified mail. Guardianship on file. Met with patient. Poor historian. Knows she has been ill, hasn't eaten, lives a [facility] in [place], uses a walker and needs help with ADL's. No COVID vaccination information on record from [facility]. Per record, pt needs assistance with all ADL's. Pt is a full code. No MOLST on file. D/C plan: Return to [facility]. Return request placed in [facility]. Pt will need BLS transportation at D/C. CM to follow for d/c needs.
[2022-03-29 23:42] VITALS: BP 94/28; PULSE 77; RESP 14; O2SAT 92
[2022-03-30] VITALS (7 sets, daily range): BP systolic 100–124; BP diastolic 35–89; PULSE 68–85; RESP 12–21; TEMP 36.1–36.4; O2SAT 91–97
[2022-03-30] MEDS: 0.9 % Sodium Chloride 1,000 ML 100 ML IVCONT ×2 (01:00→09:17)
[2022-03-30 02:41] LABS: Glucose, Whole Blood 117 mg/dL (60-115)
[2022-03-30] MEDS: Acetaminophen 325 MG TABLET 650 MG PO (04:17)
--- NOTE | 2022-03-30 06:24 | PC.NURSE ---
Patient pulled out her IV. She stated that it got stuck on something.
[2022-03-30] MEDS: Omeprazole 40 MG CAPSULE.DR PO ×2 (06:29→17:44)
[2022-03-30 08:18] LABS: Glucose, Whole Blood 114 mg/dL (60-115)
[2022-03-30] MEDS: Albuterol/Iprat 2.5/0.5MG 3 ML AMPUL.NEB INHALE (08:48)
[2022-03-30] MEDS: Digoxin 0.25 MG TABLET PO (09:22)
[2022-03-30] MEDS: Ferrous Sulfate 300 MG/5 ML LIQUID 324 MG PO (09:22)
[2022-03-30] MEDS: hydrOXYzine HCL 25 MG TABLET PO ×2 (09:23→16:15)
[2022-03-30] MEDS: Apixaban 5 MG TABLET PO (09:23)
[2022-03-30] MEDS: HaloperidoL 5 MG TABLET PO (09:23)
[2022-03-30] MEDS: Atorvastatin Calcium 10 MG TABLET PO (09:23)
[2022-03-30] MEDS: Multivitamin TABLET 1 TAB PO (09:23)
--- NOTE | 2022-03-30 09:33 | PC.NURSE ---
pts BP low, 87/40 - pt refusing to reposition onto her back. Dr. Hogan made aware of low BP and plan to come down to see pt.
[2022-03-30 09:54] LABS: MANUAL DIFF FLAG NO
[2022-03-30 09:55] LABS: Basophils Percent Auto 0.2 % (0-2); Eosinophils Percent Auto 0.3 % (0-4); Hematocrit 37.2 % (37.0-47.0); Hemoglobin 12.6 g/dl (12.0-16.0); Imm Gran Abs Auto 0.13 X10*3/uL (0.00-0.03); Imm Gran Pct Auto 1.2 % (0.0-0.4); Lymphocytes Absolute Auto 1.1 X10*3/uL (1.2-4.9); Lymphocytes Percent Auto 10.6 % (20-40); Mean Corpuscular HGB Conc 33.9 g/dl (31.0-35.0); Mean Corpuscular Volume 79.8 fL (80.0-98.0); Mean Platelet Volume 9.5 fL (9.4-12.3); Monocytes Absolute Auto 1.2 X10*3/uL (0.1-1.2); Monocytes Percent Auto 11.2 % (2-11); Neutrophils Absolute Auto 8.2 x10*3/uL (2.0-8.3); Neutrophils Percent Auto 76.5 % (45-73); Platelet Count 393 X10*3/uL (160-400); Red Blood Count 4.66 X10*6/uL (4.20-5.50); Red Cell Distribution Width 18.4 % (11.0-16.0); White Blood Count 10.7 X10*3/uL (4.8-10.8)
[2022-03-30 10:20] LABS: Alanine Aminotransferase 22 U/L (0-31); Albumin Level 2.7 g/dL (3.5-5.0); Alkaline Phosphatase 136 U/L (39-117); Anion Gap 19 (12-20); Aspartate Amino Transferase 26 U/L (5-31); Bilirubin Total 0.5 mg/dL (0.0-1.0); Blood Urea Nitrogen 44 mg/dL (9-16); Calcium 5.9 mg/dL (8.4-10.2); Carbon Dioxide 18 mmol/L (22-29); Chloride 104 mmol/L (96-108); Creatinine Clr Calc Pharmacy 20.1; Estimated Glomerular Filt Rate 17; Glucose Random 129 mg/dL (60-115); Potassium 5.1 mmol/L (3.3-5.1); Sodium 136 mmol/L (135-145); Total Protein 5.9 g/dL (6.5-8.0)
--- NOTE | 2022-03-30 11:35 | PC.NURSE ---
informed dr. morrow of pts heart rate dropping to high 30 low 40s then bouncing right back up to 70s-80s. no new orders at this time.
[2022-03-30] MEDS: Calcium Gluconate/NaCl,Iso-Osm 2 GM/100 ML PLAST..BAG IV (13:28)
[2022-03-30] MEDS: oxyCODONE HCl Immed Release 5 MG TABLET 10 MG PO (13:35)
[2022-03-30 13:58] LABS: Glucose, Whole Blood 126 mg/dL (60-115)
--- NOTE | 2022-03-30 15:10 | HO.PM.IMPN ---
Subjective Subjective Date of Service: 03/30/22 Review of Systems Unable to obtain secondary to schizoaffective disorder Physical Exam Vital Signs: Vital Signs: Last Vital Signs Temp 97.0 F 03/30/22 04:00 Pulse 76 03/30/22 08:51 Resp 21 H 03/30/22 08:51 BP 100/35 L 03/30/22 06:24 Pulse Ox 97 03/30/22 06:24 BMI result Body Mass Index 45.2 Const: Other: Awake alert confused HEENT: Other: Membranes dry Resp: Other: Clear to auscultation bilaterally no rales rhonchi or wheezes Cardio: Other: No S4; positive S1-S2; no S3 murmurs rubs or gallops GI: Other: Soft minimally tender diffusely with quiet bowel sounds. There are no acute peritoneal signs Extrem: Other: No edema bilaterally Objective Data Active Medications Acetaminophen (Acetaminophen 325 Mg Tablet) 650 mg PO Q6H PRN PRN Reason: Pain, Mild (Pain Scale 1-3) Last Admin: 03/30/22 04:17 Dose: 650 mg Documented by: NISREEN Albuterol Sulfate (Albuterol Sulfate 90 Mcg 8 Gm Inhaler) 2 puff INHALE Q4H PRN PRN Reason: Wheezing Albuterol/Ipratropium (Albuterol/Iprat 2.5/0.5mg 3 Ml Ampul.Neb) 3 ml INHALE RBID [facility] Last Admin: 03/30/22 08:48 Dose: 3 ml Documented by: TERRY Apixaban (Apixaban 5 Mg Tablet) 5 mg PO BID [facility] Last Admin: 03/30/22 09:23 Dose: 5 mg Documented by: ANDREW Atorvastatin Calcium (Atorvastatin Calcium 10 Mg Tablet) 10 mg PO DAILY [facility] Last Admin: 03/30/22 09:23 Dose: 10 mg Documented by: ANDREW Digoxin (Digoxin 0.25 Mg Tablet) 0.25 mg PO DAILY [facility] Last Admin: 03/30/22 09:22 Dose: 0.25 mg Documented by: ANDREW Ferrous Sulfate (Ferrous Sulfate 300 Mg/5 Ml Liquid) 324 mg PO BID [facility] Last Admin: 03/30/22 09:22 Dose: 324 mg Documented by: ANDREW Haloperidol (Haloperidol 5 Mg Tablet) 5 mg PO BID [facility] Last Admin: 03/30/22 09:23 Dose: 5 mg Documented by: ANDREW Hydroxyzine HCl (Hydroxyzine Hcl 25 Mg Tablet) 25 mg PO TID [facility] Last Admin: 03/30/22 09:23 Dose: 25 mg Documented by: ANDREW Sodium Chloride (Ns) 1,000 mls @ 100 mls/hr IVCONT .Q10H [facility] Last Admin: 03/30/22 09:17 Dose: 100 mls/hr Documented by: ANDREW Insulin Human Lispro (Insulin Lispro 100 Unit/Ml 3 Ml Vial) 0 unit SUBCUT QIDACHS [facility]; Protocol Last Admin: 03/30/22 14:18 Dose: Not Given Documented by: ANDREW Non-Admin Reason: No Insulin Coverage Mirtazapine (Mirtazapine 15 Mg Tablet) 15 mg PO BEDTIME [facility] Last Admin: 03/30/22 03:45 Dose: Not Given Documented by: NICOLASA Non-Admin Reason: Med Not Available Multivitamins/Vitamin C (Multivitamin Tablet) 1 tab PO DAILY [facility] Last Admin: 03/30/22 09:23 Dose: 1 tab Documented by: ANDREW Omeprazole (Omeprazole 40 Mg Capsule.) 40 mg PO BID@0630,1630 [facility] Last Admin: 03/30/22 06:29 Dose: 40 mg Documented by: MARISELA Ondansetron HCl (Ondansetron Hcl 4 Mg/2 Ml Vial) 4 mg IVPUSH Q6H PRN PRN Reason: Nausea and Vomiting Oxycodone HCl (Oxycodone Hcl Immed Release 5 Mg Tablet) 10 mg PO Q6H PRN PRN Reason: Pain, Moderate (Pain Scale 4-6 Last Admin: 03/30/22 13:35 Dose: 10 mg Documented by: ANDREW Sodium Chloride (0.9 % Sodium Chloride Flush 3 Ml Syringe) 3 ml IVFLUSH QSHIFT [facility] Last Admin: 03/30/22 08:38 Dose: Not Given Documented by: ANDREW Non-Admin Reason: IV Running Labs CBC & Chem 7: 03/30/22 09:50 03/30/22 09:50 Labs: Laboratory Results - last 24 hr 03/29/22 03/29/22 03/30/22 16:55 18:30 02:34 MCV MCH MCHC RDW Plt Count MPV Immature Gran % (Auto) Neut % (Auto) Lymph % (Auto) [place] % (Auto) Eos % (Auto) Baso % (Auto) Lymph # (Auto) [place] # (Auto) Eos # (Auto) Baso # (Auto) Abs Immat Gran (auto) Absolute Neuts (auto) Absolute Nucleated RBC Nucleated RBC % (auto) Anion Gap Estim Creat Clear Calc Estimated GFR POC Glucose 105 117 H Random Glucose Calcium Total Bilirubin AST ALT Alkaline Phosphatase Total Protein Albumin COVID-19 (JESSY) Negative COVID-19 Clin Com See Note 03/30/22 03/30/22 03/30/22 08:15 09:50 09:50 MCV 79.8 L MCH 27.0 MCHC 33.9 RDW 18.4 H Plt Count 393 MPV 9.5 Immature Gran % (Auto) 1.2 H Neut % (Auto) 76.5 H Lymph % (Auto) 10.6 L [place] % (Auto) 11.2 H Eos % (Auto) 0.3 Baso % (Auto) 0.2 Lymph # (Auto) 1.1 L [place] # (Auto) 1.2 Eos # (Auto) 0.0 Baso # (Auto) 0.0 Abs Immat Gran (auto) 0.13 H Absolute Neuts (auto) 8.2 Absolute Nucleated RBC 0.000 Nucleated RBC % (auto) 0.0 Anion Gap 19 Estim Creat Clear Calc 20.1 Estimated GFR 17 POC Glucose 114 Random Glucose 129 H Calcium 5.9 L* Total Bilirubin 0.5 AST 26 ALT 22 Alkaline Phosphatase 136 H Total Protein 5.9 L Albumin 2.7 L COVID-19 (JESSY) COVID-19 Clin Com 03/30/22 13:56 MCV MCH MCHC RDW Plt Count MPV Immature Gran % (Auto) Neut % (Auto) Lymph % (Auto) [place] % (Auto) Eos % (Auto) Baso % (Auto) Lymph # (Auto) [place] # (Auto) Eos # (Auto) Baso # (Auto) Abs Immat Gran (auto) Absolute Neuts (auto) Absolute Nucleated RBC Nucleated RBC % (auto) Anion Gap Estim Creat Clear Calc Estimated GFR POC Glucose 126 H Random Glucose Calcium Total Bilirubin AST ALT Alkaline Phosphatase Total Protein Albumin COVID-19 (JESSY) COVID-19 Clin Com Assessment and Plan (1) Acute renal failure: Status: Acute (2) Hyponatremia: Status: Acute (3) PAF (paroxysmal atrial fibrillation): Status: Acute (4) Nausea & vomiting: Status: Acute Plan 58-year-old female with a history of paroxysmal AFib obesity hypoventilation syndrome and schizophrenia presents with approximately 7 in 10 days of poor p.o. intake in the backdrop of persistent nausea and vomiting. In the emergency room found to be hyponatremic and hypotensive. Received initial bolus of 2 L of saline and will be admitted for workup of presenting complaint 1. Nausea/vomiting -volume repletion with IV saline -GI consult -IV Zofran alternating with Compazine 2. Acute renal failure -likely from hypovolemia -replete volume with normal saline --follow renals/divalent 3. Hyponatremia/hypocalcemia -CaGluconate...renal consult -follow response to IVF -follow renals/divalents 4.PAF -acceptable control on current therapies -metoprolol held secondary to hypotension will add back when appropriate -continue Eliquis Full code Caren Patient will require continued hospitalization for volume repletion and normalization of sodium/calcium along with GI workup. Quality Stroke Does the patient have a stroke diagnosis?: No VTE Prior VTE?: No VTE Risk Level:: Medical - moderate - high VTE Device Contraindication: Treatment Not Indicated VTE Drug Contraindication: N/A - Med Ordered
--- NOTE | 2022-03-30 15:22 | PC.NURSE ---
pt incontinent of a large amount of stool. pt cleaned up, linens changed.
--- NOTE | 2022-03-30 15:51 | PC.NURSE ---
pt unable to tolerate 20G IV in LAC. new 22G placed in the R forarm
[2022-03-30] MEDS: Calcium Carbonate 750 MG TAB.CHEW 1500 MG PO (16:15)
[2022-03-30 16:29] LABS: Troponin-I High Sensitivity 25.2 ng/L (<3.5-17.0)
--- NOTE | 2022-03-30 17:53 | PC.NURSE ---
Addendum entered by Gayathri Barber RN 03/30/22 19:12: per dr. hogan - plan for cardiology consult in the AM Original Note: pt having longer and more frequent episodes of bradycardia, dropping as low at 33bpm. Dr. Hogan made aware via [facility]
[2022-03-30 19:22] LABS: Glucose, Whole Blood 86 mg/dL (60-115)
--- NOTE | 2022-03-30 21:01 | PC.NURSE ---
pt grossly incontinent of stool. incontinent care given by this RN and finishing lab technician. mehta cath care given. pt has a tunneling wound on coccyx, flushed with NS since there was fecal matter and packed with absorbant gauze. pt resting in bed at this time
[2022-03-31 00:29] LABS: Glucose, Whole Blood 64 mg/dL (60-115)
[2022-03-31] MEDS: Ferrous Sulfate 300 MG/5 ML LIQUID 324 MG PO ×2 (00:38→10:53)
[2022-03-31] MEDS: hydrOXYzine HCL 25 MG TABLET PO ×2 (00:39→10:53)
[2022-03-31] MEDS: HaloperidoL 5 MG TABLET PO ×2 (00:39→10:52)
[2022-03-31] MEDS: Mirtazapine 15 MG TABLET PO (00:39)
[2022-03-31] MEDS: Apixaban 5 MG TABLET PO ×2 (00:39→10:53)
[2022-03-31] MEDS: Calcium Carbonate 750 MG TAB.CHEW 1500 MG PO ×2 (00:39→10:52)
[2022-03-31] MEDS: oxyCODONE HCl Immed Release 5 MG TABLET 10 MG PO ×2 (00:46→10:53)
[2022-03-31] MEDS: 0.9 % Sodium Chloride Flush 3 ML SYRINGE IVFLUSH (01:27)
[2022-03-31 02:59] VITALS: BP 127/60; PULSE 83; RESP 18; TEMP 36.7; O2SAT 97
[2022-03-31] MEDS: Omeprazole 40 MG CAPSULE.DR PO (05:42)
[2022-03-31 05:53] LABS: MANUAL DIFF FLAG NO
[2022-03-31 05:56] LABS: Basophils Percent Auto 0.3 % (0-2); Eosinophils Absolute Auto 0.1 X10*3/uL (0.0-0.4); Eosinophils Percent Auto 0.9 % (0-4); Hemoglobin 11.8 g/dl (12.0-16.0); Imm Gran Abs Auto 0.11 X10*3/uL (0.00-0.03); Lymphocytes Absolute Auto 1.7 X10*3/uL (1.2-4.9); Lymphocytes Percent Auto 15.9 % (20-40); Mean Corpuscular HGB Conc 32.8 g/dl (31.0-35.0); Mean Corpuscular Hemoglobin 26.5 pg (27.0-33.0); Mean Corpuscular Volume 80.7 fL (80.0-98.0); Mean Platelet Volume 9.5 fL (9.4-12.3); Monocytes Absolute Auto 1.3 X10*3/uL (0.1-1.2); Monocytes Percent Auto 12.1 % (2-11); Neutrophils Absolute Auto 7.4 x10*3/uL (2.0-8.3); Neutrophils Percent Auto 69.8 % (45-73); Platelet Count 340 X10*3/uL (160-400); Red Blood Count 4.46 X10*6/uL (4.20-5.50); Red Cell Distribution Width 18.4 % (11.0-16.0); White Blood Count 10.6 X10*3/uL (4.8-10.8)
[2022-03-31 06:45] LABS: Alanine Aminotransferase 19 U/L (0-31); Albumin Level 2.6 g/dL (3.5-5.0); Alkaline Phosphatase 128 U/L (39-117); Anion Gap 15 (12-20); Aspartate Amino Transferase 22 U/L (5-31); Bilirubin Total 0.4 mg/dL (0.0-1.0); Blood Urea Nitrogen 49 mg/dL (9-16); Calcium 5.9 mg/dL (8.4-10.2); Carbon Dioxide 22 mmol/L (22-29); Chloride 102 mmol/L (96-108); Creatinine Clr Calc Pharmacy 21.4; Estimated Glomerular Filt Rate 18; Glucose Fasting 79 mg/dL (60-99); Potassium 4.4 mmol/L (3.3-5.1); Sodium 135 mmol/L (135-145); Total Protein 5.4 g/dL (6.5-8.0)
[2022-03-31 07:09] VITALS: BP 118/54; PULSE 84; RESP 20; TEMP 36.4; O2SAT 96
[2022-03-31 08:11] LABS: Glucose, Whole Blood 68 mg/dL (60-115)
[2022-03-31] MEDS: Albuterol/Iprat 2.5/0.5MG 3 ML AMPUL.NEB INHALE (08:23)
[2022-03-31 08:24] VITALS: PULSE 96; RESP 18; O2SAT 98
--- NOTE | 2022-03-31 09:02 | PC.NURSE ---
Assumed care of patient at approx 2130 when received from ER into room 446. Patient alert, cooperative. Vitals stable. Patient swallowing pills, able to answer questions. At approx 2300, upon assessment, patient noted to have pulled out IV. This RN attempted to obtain IV access with no success. Nursing carpenter supervisor wooden ship called, Igor RN attempted US IV access with no success as well. Dr James made aware of patient not being able to receive IV fluids r/t access issue at this time. 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 Wound edges pink/granulated. Tunnelling noted, at least 3-4 cm. Picture taken - Dr James made aware of wound and shown picture documentation. Wound redressed during repositioning with wet to dry dressing at approx midnight. Patient tolerating PO fluids, but needs to be encouraged. Chronic mehta in place from facility. Patient in air loss bed for impaired skin integrity.
--- NOTE | 2022-03-31 09:05 | P.CDIC_ITS ---
CDI Concurrent Query Documentation Clarification: PHYSICIAN'S DOCUMENTATION REQUEST Date of Query: 03/31/2205 Patient Name: Valentine Reddy Admit Date: 03/29/22 Dear Doctor, A review of the medical record indicates additional documentation may be needed. Please review below and update the documentation accordingly. Clinical Indicators: The following clinical information was noted in the record: Risk Factors/Clinical Indicators/Treatments PMH: CKD PN: KIARA, likely from hypovolemia replete with normal saline Cr. 3.28 Gfr 14 Bun 46 Please clarify which of the following accurately represents the patient's renal status: CKD: * Acute renal failure * Acute renal failure on Chronic Kidney Disease (CKD) - Stage 1-5 * CKD, please provide stage - 1-5 * Other (please specify) * Unable to determine Criteria for KIARA* Stages of Chronic Kidney Disease* 1. Increase in serum creatinine by ? 0.3 mg/dL Level Description GFR (?26.5 micromol/L) within 48 hours, or G1 Normal or High > 90 2. Increase in serum creatinine to ?1.5 times baseline, G2 Mildly decreased 60 ? 89 which is known or presumed to have occurred within 7 days, or G3a Mildly to moderately decreased 45 ? 59 3. Urine volume <0.5 mL/kg/hour for six hours G3b Moderately to severely decreased 30 - 44 G4 Severely decreased 15 ? 29 G5 Kidney failure < 15 *Source: Kidney Disease: Improving Global Outcomes (KDIGO) 2012 Use of terms such as suspected, likely, concern for, or probable (associated with a specific diagnosis that is being evaluated, monitored, or treated as if it exists) are acceptable and can be coded in the inpatient setting, when documented at the time of discharge. Thank you, Claudia Franklin [facility], CDIS Extension: [phone] Please use your independent medical judgment in providing your response. THIS QUERY IS PART OF THE PERMANENT MEDICAL RECORD Provider Response: Other Other Diagnosis: Acute renal failure secondary to dehydration
--- NOTE | 2022-03-31 10:14 | P.CONNP_ITS ---
History of Present Illness Reason for Consult Consult date: 03/30/22 Chief Complaint Chief complaint: KIARA History of Present Illness Narrative: 66-year-old female from [facility] presented with 7-10 days of nausea and very limited p.o. intake.? She did complain of stomach burning and reflux at [facility] for which she was started on a PPI in the a.m. and H2 RA .? She did not tolerate IV volume repletion at [facility] and continue to to vomit bilious material. In ER, workup significant for acute kidney injury and relative hypotension.? She re ceived? saline volume repletion Zofran and will be admitted for further management. Nephrology has been consulted to assist in her clinical care Review of Systems Review of Systems Yes Unobtainable due to mental condition PMF Past Medical History Medical History (Updated 03/30/22 @ 15:12 by Rony Hogan DO) Acute anaphylaxis Acute encephalopathy Acute hyperkalemia Acute respiratory failure Alcoholic cirrhosis of liver Anemia Angioedema Asthma Atrial fibrillation with RVR CHF exacerbation Chronic hyponatremia CKD (chronic kidney disease) Crohn's disease Diastolic CHF with preserved left ventricular function, NYHA class 2 Dyspnea Fever of unknown origin Hyponatremia Hyponatremia Hyponatremia PAF (paroxysmal atrial fibrillation) Pneumonia Schizoaffective disorder Surgical History Surgical History No pertinent past surgical history Social History Social History Household Members: None Housing: Long-Term Do you presently have visiting nurse or other home services: No Patient Tobacco Use Status: Former Tobacco user service: No Current occupational status: disabled Meds Allergies Allergy/AdvReac Type Severity Reaction Status Date / Time lisinopril Allergy Severe Angioedema Verified 12/02/21 16:07 Sulfa (Sulfonamide Allergy Intermediate HIVES Verified 11/24/21 20:49 Antibiotics) Active Medications: Current Medications Acetaminophen (Acetaminophen 325 Mg Tablet) 650 mg PO Q6H PRN PRN Reason: Pain, Mild (Pain Scale 1-3) Last Admin: 03/30/22 04:17 Dose: 650 mg Documented by: Albuterol Sulfate (Albuterol Sulfate 90 Mcg 8 Gm Inhaler) 2 puff INHALE Q4H PRN PRN Reason: Wheezing Albuterol/Ipratropium (Albuterol/Iprat 2.5/0.5mg 3 Ml Ampul.Neb) 3 ml INHALE RBID [facility] Last Admin: 03/31/22 08:23 Dose: 3 ml Documented by: Apixaban (Apixaban 5 Mg Tablet) 5 mg PO BID [facility] Last Admin: 03/31/22 00:39 Dose: 5 mg Documented by: Atorvastatin Calcium (Atorvastatin Calcium 10 Mg Tablet) 10 mg PO DAILY [facility] Last Admin: 03/30/22 09:23 Dose: 10 mg Documented by: Calcium Carbonate (Calcium Carbonate 750 Mg Tab.Chew) 1,500 mg PO TID [facility] Last Admin: 03/31/22 00:39 Dose: 1,500 mg Documented by: Digoxin (Digoxin 0.25 Mg Tablet) 0.25 mg PO DAILY [facility] Last Admin: 03/30/22 09:22 Dose: 0.25 mg Documented by: Ferrous Sulfate (Ferrous Sulfate 300 Mg/5 Ml Liquid) 324 mg PO BID [facility] Last Admin: 03/31/22 00:38 Dose: 324 mg Documented by: Haloperidol (Haloperidol 5 Mg Tablet) 5 mg PO BID [facility] Last Admin: 03/31/22 00:39 Dose: 5 mg Documented by: Hydroxyzine HCl (Hydroxyzine Hcl 25 Mg Tablet) 25 mg PO TID [facility] Last Admin: 03/31/22 00:39 Dose: 25 mg Documented by: Sodium Chloride (Ns) 1,000 mls @ 100 mls/hr IVCONT .Q10H [facility] Last Admin: 03/31/22 04:54 Dose: Not Given Documented by: Insulin Human Lispro (Insulin Lispro 100 Unit/Ml 3 Ml Vial) 0 unit SUBCUT QIDACHS [facility]; Protocol Last Admin: 03/31/22 09:42 Dose: Not Given Documented by: Mirtazapine (Mirtazapine 15 Mg Tablet) 15 mg PO BEDTIME [facility] Last Admin: 03/31/22 00:39 Dose: 15 mg Documented by: Multivitamins/Vitamin C (Multivitamin Tablet) 1 tab PO DAILY [facility] Last Admin: 03/30/22 09:23 Dose: 1 tab Documented by: Omeprazole (Omeprazole 40 Mg Capsule.) 40 mg PO BID@0630,1630 [facility] Last Admin: 03/31/22 05:42 Dose: 40 mg Documented by: Ondansetron HCl (Ondansetron Hcl 4 Mg/2 Ml Vial) 4 mg IVPUSH Q6H PRN PRN Reason: Nausea and Vomiting Oxycodone HCl (Oxycodone Hcl Immed Release 5 Mg Tablet) 10 mg PO Q6H PRN PRN Reason: Pain, Moderate (Pain Scale 4-6 Last Admin: 03/31/22 00:46 Dose: 10 mg Documented by: Sodium Chloride (0.9 % Sodium Chloride Flush 3 Ml Syringe) 3 ml IVFLUSH QSHIFT [facility] Last Admin: 03/31/22 01:27 Dose: 3 ml Documented by: Home Medications Medication Instructions Recorded Confirmed Last Taken Type acetaminophen 325 mg tablet 650 mg PO Q4H PRN 11/25/21 03/29/22 11/23/21 History albuterol sulfate 90 mcg/actuation 2 puff INHALATION Q4H PRN 11/25/21 03/29/22 11/22/21 History aerosol inhaler (ProAir HFA) atorvastatin 10 mg tablet 1 tab PO DAILY 11/25/21 03/29/22 11/24/21 History haloperidol 5 mg tablet 5 mg PO BID 11/25/21 03/29/22 11/24/21 History hydroxyzine HCl 25 mg tablet 25 mg PO TID 11/25/21 03/29/22 11/24/21 History insulin regular human 100 unit/mL 1 sliding scale dose SUBCUT 11/25/21 03/29/22 11/24/21 History injection solution (Novolin R USEASDIRECTD Regular U-100 Insulin) ipratropium 20 mcg-albuterol 100 1 puff INHALATION BID 11/25/21 03/29/22 11/24/21 History mcg/actuation mist for inhalation (Combivent Respimat) metformin 1,000 mg tablet 1,000 mg PO BID 11/25/21 03/29/22 11/24/21 History multivitamin 1 tab PO DAILY 11/25/21 03/29/22 11/24/21 History nystatin 100,000 unit/gram topical 1 appl TOPICAL BID 11/25/21 03/29/22 Unknown History powder sodium chloride 0.65 % nasal spray 2 spray INTRANASAL Q4H PRN 11/25/21 03/29/22 11/24/21 History aerosol (Deep Sea Nasal) arginine 7 gram-glutamine 7 1 ea PO BID 03/29/22 03/29/22 Unknown History gram-calcium HMB 1.5 gram oral powder pack (Edy) calcium carbonate 500 mg calcium 1,000 mg PO TIDWM 03/29/22 03/29/22 Unknown History (1,250 mg) chewable tablet digoxin 250 mcg (0.25 mg) tablet 250 mcg PO DAILY 03/29/22 03/29/22 Unknown History ferrous sulfate 300 mg (60 mg 324 mg PO BID 03/29/22 03/29/22 Unknown History iron)/5 mL oral liquid lanolin alcohols-mineral 1 appl TOPICAL QSHIFT 03/29/22 03/29/22 Unknown History oil-w.petrolatum-ceresin topical cream (Minerin Creme) metoclopramide HCl 10 mg tablet 10 mg PO TIDAC 03/29/22 03/29/22 Unknown History metoprolol tartrate 75 mg tablet 75 mg PO BID 03/29/22 03/29/22 Unknown History mirtazapine 15 mg tablet 1 tab PO BEDTIME 03/29/22 03/29/22 Unknown History omeprazole 40 mg capsule,delayed 40 mg PO BID 03/29/22 03/29/22 Unknown History release ondansetron HCl 8 mg tablet 8 mg PO Q8H PRN 03/29/22 03/29/22 Unknown History oxycodone 10 mg tablet 10 mg PO Q6H PRN 03/29/22 03/29/22 Unknown History prochlorperazine maleate 10 mg 10 mg PO Q8H PRN 03/29/22 03/29/22 Unknown History tablet sennosides 8.6 mg tablet (senna) 8.6 mg PO DAILY PRN 03/29/22 03/29/22 Unknown History zinc oxide-vitamin B5-vit E 11.3% 1 appl TOPICAL QSHIFT 03/29/22 03/29/22 Unknown History topical cream (Balmex Adult [facility]) Physical Exam Vital Signs: Last Vital Signs Temp 97.5 F 03/31/22 07:09 Pulse 96 03/31/22 08:24 Resp 18 03/31/22 08:24 BP 118/54 L 03/31/22 07:09 Pulse Ox 96 03/31/22 07:09 BMI result Body Mass Index 45.2 Const General: no acute distress Neck Neck: Yes supple Resp Auscultation: diminished lung sounds Cardio Rate: regular rate GI Palpation (GI): Soft to palpation Neuro General: moves all extremities Results Lab Results Result Diagrams: 03/31/22 05:42 03/31/22 05:42 Lab results: Chemistry 03/29/22 03/30/22 03/31/22 12:18 09:50 05:42 Sodium 132 L 136 135 Potassium 5.4 H D 5.1 4.4 Carbon Dioxide 22 18 L 22 BUN 46 H D 44 H 49 H Creatinine 3.28 H 2.80 H 2.64 H Calcium 6.2 L D 5.9 L* 5.9 L* Hematology 03/29/22 03/30/22 03/31/22 12:18 09:50 05:42 WBC 10.9 H 10.7 10.6 Hgb 12.2 D 12.6 11.8 L Plt Count 407 H 393 340 Assessment and Plan (1) Acute renal failure: Status: Acute Plan KIARA due to tubular injury No reason to suspect GN/AIN Needs renal USS Hypocalcemic- W/U ordered Renal functions marginally better No indication for renal replacement All medn should be dosed for GFR No NSAID's; C/W rest of current supp care for now Procedures Date of Service Date of Service: 03/30/22
--- NOTE | 2022-03-31 10:39 | P.CDIC_ITS ---
CDI Concurrent Query Documentation Clarification: PHYSICIAN'S DOCUMENTATION REQUEST Date of Query: 03/31/22 1039 Patient Name: Valentine Reddy Admit Date: 03/29/22 Dear Doctor, A review of the medical record indicates additional documentation may be needed. Please review below and update the documentation accordingly. Risk Factors/Clinical Indicators/Treatments BMI: 45.2 4' 11 in height noted obesity hypoventilation syndrome If possible, please provide an associated diagnosis related to the abnormal BMI, such as: For a BMI >= 40: * Obesity * Due to excess calories * Drug induced * Due to other cause * Severe or Morbid Obesity * With alveolar hypoventilation Or: * BMI is not significant * Other (please specify) * Unable to determine Use of terms such as suspected, likely, concern for, or probable (associated with a specific diagnosis that is being evaluated, monitored, or treated as if it exists) are acceptable and can be coded in the inpatient setting, when documented at the time of discharge. Thank you, Claudia Franklin [facility], CDIS Extension: [phone] Please use your independent medical judgment in providing your response. THIS QUERY IS PART OF THE PERMANENT MEDICAL RECORD
--- NOTE | 2022-03-31 10:39 | MHC.CDI.CONC ---
CDI Concurrent Query Documentation Clarification: PHYSICIAN'S DOCUMENTATION REQUEST Date of Query: 03/31/22 1039 Patient Name: Valentine Reddy Admit Date: 03/29/22 Dear Doctor, A review of the medical record indicates additional documentation may be needed. Please review below and update the documentation accordingly. Risk Factors/Clinical Indicators/Treatments BMI: 45.2 4' 11 in height noted obesity hypoventilation syndrome If possible, please provide an associated diagnosis related to the abnormal BMI, such as: For a BMI >= 40: Obesity Due to excess calories Drug induced Due to other cause Severe or Morbid Obesity With alveolar hypoventilation Or: BMI is not significant Other (please specify) Unable to determine Use of terms such as suspected, likely, concern for, or probable (associated with a specific diagnosis that is being evaluated, monitored, or treated as if it exists) are acceptable and can be coded in the inpatient setting, when documented at the time of discharge. Thank you, Claudia Franklin [facility], CDIS Extension: [phone] Please use your independent medical judgment in providing your response. THIS QUERY IS PART OF THE PERMANENT MEDICAL RECORD
--- NOTE | 2022-03-31 10:40 | PM.PNNEP ---
Subjective Subjective Date of Service: 03/31/22 Interval history: Events noted. All recent data reviewed Physical Exam Vital Signs: Vital Signs: Last Vital Signs Temp 97.5 F 03/31/22 07:09 Pulse 96 03/31/22 08:24 Resp 18 03/31/22 08:24 BP 118/54 L 03/31/22 07:09 Pulse Ox 96 03/31/22 07:09 BMI result Body Mass Index 45.2 Const: General: no acute distress Neck: Neck: Yes supple Resp: Auscultation: diminished lung sounds Cardio: Rate: regular rate GI: Palpation (GI): Soft to palpation Neuro: General: moves all extremities Objective Data Labs CBC & Chem 7: 03/31/22 05:42 03/31/22 05:42 Labs: Laboratory Results - last 24 hr 03/30/22 03/30/22 03/30/22 13:56 15:57 19:19 WBC RBC Hgb Hct MCV MCH MCHC RDW Plt Count MPV Immature Gran % (Auto) Neut % (Auto) Lymph % (Auto) [facility] % (Auto) Eos % (Auto) Baso % (Auto) Lymph # (Auto) [facility] # (Auto) Eos # (Auto) Baso # (Auto) Abs Immat Gran (auto) Absolute Neuts (auto) Absolute Nucleated RBC Nucleated RBC % (auto) Sodium Potassium Chloride Carbon Dioxide Anion Gap BUN Creatinine Estim Creat Clear Calc Estimated GFR POC Glucose 126 H 86 Fasting Glucose Calcium Total Bilirubin AST ALT Alkaline Phosphatase Troponin I High Sens 25.2 H Total Protein Albumin 03/31/22 03/31/22 03/31/22 00:26 05:42 05:42 WBC 10.6 RBC 4.46 Hgb 11.8 L Hct 36.0 L MCV 80.7 MCH 26.5 L MCHC 32.8 RDW 18.4 H Plt Count 340 MPV 9.5 Immature Gran % (Auto) 1.0 H Neut % (Auto) 69.8 Lymph % (Auto) 15.[address] [facility] % (Auto) 12.1 H Eos % (Auto) 0.9 Baso % (Auto) 0.3 Lymph # (Auto) 1.7 [facility] # (Auto) 1.3 H Eos # (Auto) 0.1 Baso # (Auto) 0.0 Abs Immat Gran (auto) 0.11 H Absolute Neuts (auto) 7.4 Absolute Nucleated RBC 0.000 Nucleated RBC % (auto) 0.0 Sodium 135 Potassium 4.4 Chloride 102 Carbon Dioxide 22 Anion Gap 15 BUN 49 H Creatinine 2.64 H Estim Creat Clear Calc 21.4 Estimated GFR 18 POC Glucose 64 Fasting Glucose 79 Calcium 5.9 L* Total Bilirubin 0.4 AST 22 ALT 19 Alkaline Phosphatase 128 H Troponin I High Sens Total Protein 5.4 L Albumin 2.6 L 03/31/22 08:09 WBC RBC Hgb Hct MCV MCH MCHC RDW Plt Count MPV Immature Gran % (Auto) Neut % (Auto) Lymph % (Auto) [facility] % (Auto) Eos % (Auto) Baso % (Auto) Lymph # (Auto) [facility] # (Auto) Eos # (Auto) Baso # (Auto) Abs Immat Gran (auto) Absolute Neuts (auto) Absolute Nucleated RBC Nucleated RBC % (auto) Sodium Potassium Chloride Carbon Dioxide Anion Gap BUN Creatinine Estim Creat Clear Calc Estimated GFR POC Glucose 68 Fasting Glucose Calcium Total Bilirubin AST ALT Alkaline Phosphatase Troponin I High Sens Total Protein Albumin Procedures Date of Service Date of Service: 03/31/22 Assessment & Plan Assessment and plan (1) Acute renal failure: Status: Acute Assessment and Plan: KIARA due to tubular injury No reason to suspect GN/AIN Needs renal USS Hypocalcemic- W/U ordered Renal functions marginally better No indication for renal replacement All medn should be dosed for GFR No NSAID's; C/W rest of current supp care for now Time Spent With Patient Time: Total time spent is greater than 50% in coordination of care (as documented) at patient's floor/unit and/or counseling patient: Progress Note: Quality Stroke Does the patient have a stroke diagnosis?: No
--- NOTE | 2022-03-31 10:43 | P.CDIC_ITS ---
CDI Concurrent Query Documentation Clarification: PHYSICIAN'S DOCUMENTATION REQUEST Date of Query: 03/31/22 1043 Patient Name: Valentine Reddy Admit Date: 03/29/22 Dear Doctor, A review of the medical record indicates additional documentation may be indicated. Please review below and update the documentation accordingly. Clinical Indicators: Risk Factors/Clinical Indicators/Treatments Nursing - Skin assessment noted a pressure ulcer Stage 4 mid coccyx. Tunnelling noted, wound redressed and pictures taken. Airloss bed, repositioning. l Based on the above, could you please provide, in the Progress Notes, further information regarding the ulcer/wound: * Location of the ulcer/wound, including laterality * If a pressure ulcer, please also include the stage* of the ulcer: * Stage 1 - Skin intact, non-blanchable redness * Stage 2 - Partial thickness loss of dermis, includes intact or open blister * Stage 3 - Full thickness tissue not including bone, tendon, or muscle * Stage 4 - Full thickness tissue loss, including exposed bones, tendon, or muscle * Unstageable - Full thickness tissue loss in which the base of the ulcer is covered by slough (yellow, villegas, adkins, green or brown) and/or eschar (villegas, brown, or black) in the wound bed. * Suspected deep tissue injury - Purple or maroon localized area of discolored intact skin or blood-filled blister due to damage of underlying soft tissues from pressure and/or shear. The area may be preceded by tissue that is painful, firm, mushy, boggy, warmer, or cooler as compare to adjacent tissue. * Unable to determine *Source: National Pressure Ulcer Advisory Panel (NPUAP) Use of terms such as suspected, likely, concern for, or probable (associated with a specific diagnosis that is being evaluated, monitored, or treated as if it exists) are acceptable and can be coded in the inpatient setting, when documented at the time of discharge. Thank you, Claudia Franklin [facility], CDIS Extension: [phone] Please use your independent medical judgment in providing your response. THIS QUERY IS PART OF THE PERMANENT MEDICAL RECORD Provider Response: Other Other Diagnosis: Stage 3 coccyx ulcer
--- NOTE | 2022-03-31 10:45 | PM.GICN ---
History of Present Illness Data of Consult Service Date: 03/31/22 Requesting physician: Rony Hogan Primary Care Provider: Rony Hogan DO HPI Reason for consult: Nausea and vomiting Chief Complaint: Intractable vomiting 66-year-old female well known to me from [facility] presents with approximately 7-10 days of nausea and very limited p.o. intake.? She did complain of stomach burning and reflux at [facility] for which she was started on a PPI in the a.m. and H2 RA in the HS.? She did not tolerate IV volume repletion at [facility] and continue to to vomit bilious material. In ER, workup significant for acute kidney injury and relative hypotension.? She received? saline volume repletion Zofran and will be admitted for GI evaluation PMFSH Past Medical History Medical History (Updated 03/30/22 @ 15:12 by Rony Hogan DO) Acute anaphylaxis Acute encephalopathy Acute hyperkalemia Acute respiratory failure Alcoholic cirrhosis of liver Anemia Angioedema Asthma Atrial fibrillation with RVR CHF exacerbation Chronic hyponatremia CKD (chronic kidney disease) Crohn's disease Diastolic CHF with preserved left ventricular function, NYHA class 2 Dyspnea Fever of unknown origin Hyponatremia Hyponatremia Hyponatremia PAF (paroxysmal atrial fibrillation) Pneumonia Schizoaffective disorder Surgical History Surgical History No pertinent past surgical history Social History Social History Household Members: None Housing: Fdc Do you presently have visiting nurse or other home services: No Patient Tobacco Use Status: Former Tobacco user service: No Current occupational status: disabled Meds Allergies Allergy/AdvReac Type Severity Reaction Status Date / Time lisinopril Allergy Severe Angioedema Verified 12/02/21 16:07 Sulfa (Sulfonamide Allergy Intermediate HIVES Verified 11/24/21 20:49 Antibiotics) Active Medications: Current Medications Acetaminophen (Acetaminophen 325 Mg Tablet) 650 mg PO Q6H PRN PRN Reason: Pain, Mild (Pain Scale 1-3) Last Admin: 03/30/22 04:17 Dose: 650 mg Documented by: Albuterol Sulfate (Albuterol Sulfate 90 Mcg 8 Gm Inhaler) 2 puff INHALE Q4H PRN PRN Reason: Wheezing Albuterol/Ipratropium (Albuterol/Iprat 2.5/0.5mg 3 Ml Ampul.Neb) 3 ml INHALE RBID [facility] Last Admin: 03/31/22 08:23 Dose: 3 ml Documented by: Apixaban (Apixaban 5 Mg Tablet) 5 mg PO BID [facility] Last Admin: 03/31/22 00:39 Dose: 5 mg Documented by: Atorvastatin Calcium (Atorvastatin Calcium 10 Mg Tablet) 10 mg PO DAILY [facility] Last Admin: 03/30/22 09:23 Dose: 10 mg Documented by: Calcium Carbonate (Calcium Carbonate 750 Mg Tab.Chew) 1,500 mg PO TID [facility] Last Admin: 03/31/22 00:39 Dose: 1,500 mg Documented by: Digoxin (Digoxin 0.25 Mg Tablet) 0.25 mg PO DAILY [facility] Last Admin: 03/30/22 09:22 Dose: 0.25 mg Documented by: Ferrous Sulfate (Ferrous Sulfate 300 Mg/5 Ml Liquid) 324 mg PO BID [facility] Last Admin: 03/31/22 00:38 Dose: 324 mg Documented by: Haloperidol (Haloperidol 5 Mg Tablet) 5 mg PO BID [facility] Last Admin: 03/31/22 00:39 Dose: 5 mg Documented by: Hydroxyzine HCl (Hydroxyzine Hcl 25 Mg Tablet) 25 mg PO TID [facility] Last Admin: 03/31/22 00:39 Dose: 25 mg Documented by: Sodium Chloride (Ns) 1,000 mls @ 100 mls/hr IVCONT .Q10H [facility] Last Admin: 03/31/22 04:54 Dose: Not Given Documented by: Insulin Human Lispro (Insulin Lispro 100 Unit/Ml 3 Ml Vial) 0 unit SUBCUT QIDACHS [facility]; Protocol Last Admin: 03/31/22 09:42 Dose: Not Given Documented by: Mirtazapine (Mirtazapine 15 Mg Tablet) 15 mg PO BEDTIME [facility] Last Admin: 03/31/22 00:39 Dose: 15 mg Documented by: Multivitamins/Vitamin C (Multivitamin Tablet) 1 tab PO DAILY [facility] Last Admin: 03/30/22 09:23 Dose: 1 tab Documented by: Omeprazole (Omeprazole 40 Mg Capsule.) 40 mg PO BID@0630,1630 [facility] Last Admin: 03/31/22 05:42 Dose: 40 mg Documented by: Ondansetron HCl (Ondansetron Hcl 4 Mg/2 Ml Vial) 4 mg IVPUSH Q6H PRN PRN Reason: Nausea and Vomiting Oxycodone HCl (Oxycodone Hcl Immed Release 5 Mg Tablet) 10 mg PO Q6H PRN PRN Reason: Pain, Moderate (Pain Scale 4-6 Last Admin: 03/31/22 00:46 Dose: 10 mg Documented by: Sodium Chloride (0.9 % Sodium Chloride Flush 3 Ml Syringe) 3 ml IVFLUSH QSHIFT [facility] Last Admin: 03/31/22 01:27 Dose: 3 ml Documented by: Home Medications Medication Instructions Recorded Confirmed Last Taken Type acetaminophen 325 mg tablet 650 mg PO Q4H PRN 11/25/21 03/29/22 11/23/21 History albuterol sulfate 90 mcg/actuation 2 puff INHALATION Q4H PRN 11/25/21 03/29/22 11/22/21 History aerosol inhaler (ProAir HFA) atorvastatin 10 mg tablet 1 tab PO DAILY 11/25/21 03/29/22 11/24/21 History haloperidol 5 mg tablet 5 mg PO BID 11/25/21 03/29/22 11/24/21 History hydroxyzine HCl 25 mg tablet 25 mg PO TID 11/25/21 03/29/22 11/24/21 History insulin regular human 100 unit/mL 1 sliding scale dose SUBCUT 11/25/21 03/29/22 11/24/21 History injection solution (Novolin R USEASDIRECTD Regular U-100 Insulin) ipratropium 20 mcg-albuterol 100 1 puff INHALATION BID 11/25/21 03/29/22 11/24/21 History mcg/actuation mist for inhalation (Combivent Respimat) metformin 1,000 mg tablet 1,000 mg PO BID 11/25/21 03/29/22 11/24/21 History multivitamin 1 tab PO DAILY 11/25/21 03/29/22 11/24/21 History nystatin 100,000 unit/gram topical 1 appl TOPICAL BID 11/25/21 03/29/22 Unknown History powder sodium chloride 0.65 % nasal spray 2 spray INTRANASAL Q4H PRN 11/25/21 03/29/22 11/24/21 History aerosol (Deep Sea Nasal) arginine 7 gram-glutamine 7 1 ea PO BID 03/29/22 03/29/22 Unknown History gram-calcium HMB 1.5 gram oral powder pack (Edy) calcium carbonate 500 mg calcium 1,000 mg PO TIDWM 03/29/22 03/29/22 Unknown History (1,250 mg) chewable tablet digoxin 250 mcg (0.25 mg) tablet 250 mcg PO DAILY 03/29/22 03/29/22 Unknown History ferrous sulfate 300 mg (60 mg 324 mg PO BID 03/29/22 03/29/22 Unknown History iron)/5 mL oral liquid lanolin alcohols-mineral 1 appl TOPICAL QSHIFT 03/29/22 03/29/22 Unknown History oil-w.petrolatum-ceresin topical cream (Minerin Creme) metoclopramide HCl 10 mg tablet 10 mg PO TIDAC 03/29/22 03/29/22 Unknown History metoprolol tartrate 75 mg tablet 75 mg PO BID 03/29/22 03/29/22 Unknown History mirtazapine 15 mg tablet 1 tab PO BEDTIME 03/29/22 03/29/22 Unknown History omeprazole 40 mg capsule,delayed 40 mg PO BID 03/29/22 03/29/22 Unknown History release ondansetron HCl 8 mg tablet 8 mg PO Q8H PRN 03/29/22 03/29/22 Unknown History oxycodone 10 mg tablet 10 mg PO Q6H PRN 03/29/22 03/29/22 Unknown History prochlorperazine maleate 10 mg 10 mg PO Q8H PRN 03/29/22 03/29/22 Unknown History tablet sennosides 8.6 mg tablet (senna) 8.6 mg PO DAILY PRN 03/29/22 03/29/22 Unknown History zinc oxide-vitamin B5-vit E 11.3% 1 appl TOPICAL QSHIFT 03/29/22 03/29/22 Unknown History topical cream (Balmex Adult Care) Physical Exam Vital Signs: Vital Signs: Last Vital Signs Temp 97.5 F 03/31/22 07:09 Pulse 96 03/31/22 08:24 Resp 18 03/31/22 08:24 BP 118/54 L 03/31/22 07:09 Pulse Ox 96 03/31/22 07:09 BMI result Body Mass Index 45.2 Results Labs CBC & Chem 7: 03/31/22 05:42 03/31/22 05:42 Labs: Short CBC 03/31/22 Range/Units 05:42 WBC 10.6 (4.8-10.8) X10*3/uL Hgb 11.8 L (12.0-16.0) g/dl Hct 36.0 L (37.0-47.0) % Plt Count 340 (160-400) X10*3/uL BMP 03/31/22 05:42 Sodium 135 Potassium 4.4 Chloride 102 Carbon Dioxide 22 BUN 49 H Creatinine 2.64 H Calcium 5.9 L* Liver Function 03/31/22 Range/Units 05:42 Total Bilirubin 0.4 (0.0-1.0) mg/dL AST 22 (5-31) U/L ALT 19 (0-31) U/L Alkaline Phosphatase 128 H (39-117) U/L Albumin 2.6 L (3.5-5.0) g/dL
[2022-03-31 10:46] VITALS: BMI 45.2
[2022-03-31] MEDS: Digoxin 0.25 MG TABLET PO (10:52)
[2022-03-31] MEDS: Multivitamin TABLET 1 TAB PO (10:53)
[2022-03-31] MEDS: Atorvastatin Calcium 10 MG TABLET PO (10:53)
--- NOTE | 2022-03-31 10:53 | MHC.CLN ---
RE: CONSULT PT IS SEVERELY MALNOURISHED PT WITH 13% SIGNIFICANT WT LOSS X 90DAYS WITH POOR PO INTAKE X>7DAYS WITH STAGE 4 PRESSURE INJURY PREVIOUS WT HX REVEALS 116.3KG (01/04/22) TRIGGERS FOR 13% SIGNIFICANT WT LOSS X 90DAYS DIET RX: 2000DM-APPROPRIATE RECOMMEND ADDING ENSURE MAX BID TO INCREASE KCALS AND PROMOTE WOUND HEALING SUPP TO PROVIDE 300KCALS, 60G PROTEIN MONITOR PO INTAKE CLOSELY SEE ALSO FULL CLINICAL NUTRITION ASSESSMENT
[2022-03-31 11:34] LABS: Glucose, Whole Blood 56 mg/dL (60-115)
[2022-03-31 12:00] VITALS: BP 138/57; PULSE 87; RESP 20; TEMP 36; O2SAT 97
[2022-03-31 12:09] LABS: Glucose, Whole Blood 31 mg/dL (60-115)
--- NOTE | 2022-03-31 12:27 | P.DS_ITS ---
DS: Providers Provider Date of Service: 03/31/22 Date of admission: 03/29/22 12:51 Date of discharge: 03/31/22 Primary care physician: Rony Hogan DO Consults: 03/30/22 11:02 Consult to Nephrology Routine Consulting Provider: Isaías Cutler Reason for consultation: ARF Has provider been notified: Yes 03/31/22 08:22 Consult to Gastroenterology Routine Consulting Provider: Maren Correa Reason for consultation: intractable n/v Has provider been notified: No DS: Diagnosis Discharge Diagnosis (1) Acute renal failure: Status: Acute DS: Summary Hospital Course Hospital Course: 66-year-old female well known for me from [facility] presents with 7-10 days of vomiting preceded by approximately 2-3 weeks of poor intake. Multiple IVs have been attempted and pulled out by patient at [facility]. Patient was brought to [facility] for evaluation and possible PICC line placement/GI evaluation. On admission found to be in acute renal failure for which GI consultation was put on hold and Nephrology was consulted. Nephrology set in motion workup for hypocalcemia and felt that the rise in the creatinine was due to volume depletion. Discussed with GI, will not be able to scope until Eliquis is clear. Discussed at length with nursing at [facility] who was in contact with family in all in agreement at this point in time will not pursue aggressive workup. 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 At this point in time she return to care 1 to resume therapies as best as tolerated. Time Spent with Patient Time attestation: Total time spent providing and/or coordinating discharge services: Discharge coordination time: Greater than 30 minutes Quality: Safe Use of Opioids Does Pt have an Active Cancer Diagnosis on the Problem List?: No Quality: Stroke Does the patient have a stroke diagnosis?: No Physical Exam Vital Signs: Vital Signs: Last Vital Signs Temp 96.8 F 03/31/22 12:00 Pulse 87 03/31/22 12:00 Resp 20 03/31/22 12:00 BP 138/57 L 03/31/22 12:00 Pulse Ox 97 03/31/22 12:00 BMI result Body Mass Index 45.2 Const: Other: Awake alert confused HEENT: Other: Membranes dry Resp: Other: Clear to auscultation bilaterally no rales rhonchi or wheezes Cardio: Other: No S4; positive S1-S2; no S3 murmurs rubs or gallops GI: Other: Soft minimally tender diffusely with quiet bowel sounds. There are no acute peritoneal signs Extrem: Other: No edema bilaterally DS: Data Data Completed and Pending Completed studies during hospitalization [Text1]: Procedures Change Other Device in Head and Neck Subcutaneous Tissue and Fascia, External Approach (11/25/21) Compression of Back using Pressure Dressing (11/25/21) Control Bleeding in Lower Back, Open Approach (11/25/21) Excision of Back Subcutaneous Tissue and Fascia, Open Approach (11/25/21) Excision of Left Hip Muscle, Open Approach (11/25/21) Extirpation of Matter from Buttock Subcutaneous Tissue and Fascia, Open Approach (11/25/21) Extirpation of Matter from Left Lower Lobe Bronchus, Via Natural or Artificial Opening Endoscopic (11/25/21) Extirpation of Matter from Left Main Bronchus, Via Natural or Artificial Opening Endoscopic (11/25/21) Extirpation of Matter from Right Main Bronchus, Via Natural or Artificial Opening Endoscopic (11/25/21) Extraction of Back Skin, External Approach (11/25/21) Insertion of Endotracheal Airway into Trachea, Via Natural or Artificial Opening (11/25/21) Insertion of Infusion Device into Superior Vena Cava, Percutaneous Approach (11/25/21) Respiratory Ventilation, 24-96 Consecutive Hours (11/25/21) Respiratory Ventilation, Greater than 96 Consecutive Hours (11/25/21) Transfusion of Nonautologous Red Blood Cells into Peripheral Vein, Percutaneous Approach (11/25/21) Labs on day of discharge: Laboratory Results - last 24 hr 03/30/22 03/30/22 03/30/22 13:56 15:57 19:19 WBC RBC Hgb Hct MCV MCH MCHC RDW Plt Count MPV Immature Gran % (Auto) Neut % (Auto) Lymph % (Auto) [facility] % (Auto) Eos % (Auto) Baso % (Auto) Lymph # (Auto) [facility] # (Auto) Eos # (Auto) Baso # (Auto) Abs Immat Gran (auto) Absolute Neuts (auto) Absolute Nucleated RBC Nucleated RBC % (auto) Sodium Potassium Chloride Carbon Dioxide Anion Gap BUN Creatinine Estim Creat Clear Calc Estimated GFR POC Glucose 126 H 86 Fasting Glucose Calcium Total Bilirubin AST ALT Alkaline Phosphatase Troponin I High Sens 25.2 H Total Protein Albumin 03/31/22 03/31/22 03/31/22 00:26 05:42 05:42 WBC 10.6 RBC 4.46 Hgb 11.8 L Hct 36.0 L MCV 80.7 MCH 26.5 L MCHC 32.8 RDW 18.4 H Plt Count 340 MPV 9.5 Immature Gran % (Auto) 1.0 H Neut % (Auto) 69.8 Lymph % (Auto) 15.[address] [facility] % (Auto) 12.1 H Eos % (Auto) 0.9 Baso % (Auto) 0.3 Lymph # (Auto) 1.7 [facility] # (Auto) 1.3 H Eos # (Auto) 0.1 Baso # (Auto) 0.0 Abs Immat Gran (auto) 0.11 H Absolute Neuts (auto) 7.4 Absolute Nucleated RBC 0.000 Nucleated RBC % (auto) 0.0 Sodium 135 Potassium 4.4 Chloride 102 Carbon Dioxide 22 Anion Gap 15 BUN 49 H Creatinine 2.64 H Estim Creat Clear Calc 21.4 Estimated GFR 18 POC Glucose 64 Fasting Glucose 79 Calcium 5.9 L* Total Bilirubin 0.4 AST 22 ALT 19 Alkaline Phosphatase 128 H Troponin I High Sens Total Protein 5.4 L Albumin 2.6 L 03/31/22 03/31/22 03/31/22 08:09 11:28 12:07 WBC RBC Hgb Hct MCV MCH MCHC RDW Plt Count MPV Immature Gran % (Auto) Neut % (Auto) Lymph % (Auto) [facility] % (Auto) Eos % (Auto) Baso % (Auto) Lymph # (Auto) [facility] # (Auto) Eos # (Auto) Baso # (Auto) Abs Immat Gran (auto) Absolute Neuts (auto) Absolute Nucleated RBC Nucleated RBC % (auto) Sodium Potassium Chloride Carbon Dioxide Anion Gap BUN Creatinine Estim Creat Clear Calc Estimated GFR POC Glucose 68 56 L* 31 L* Fasting Glucose Calcium Total Bilirubin AST ALT Alkaline Phosphatase Troponin I High Sens Total Protein Albumin Discharge Plan Discharge Patient Disposition: Xfer [facility] Discharge Diagnosis: Acute Kidney Injury Referrals: Rony Hogan DO [Primary Care Provider] - 1 Week Discharge Medications: Continued multivitamin Tablet 1 tab PO DAILY 0RF acetaminophen 325 mg Tablet 650 mg PO Q4H PRN (Reason: Pain) 0RF haloperidol 5 mg Tablet 5 mg PO BID 0RF atorvastatin 10 mg tablet 1 tab PO DAILY 0RF hydroxyzine HCl 25 mg Tablet 25 mg PO TID 0RF nystatin 100,000 unit/gram Powder 1 appl TOPICAL BID 0RF albuterol sulfate [ProAir HFA] 90 mcg/actuation Hfa Aerosol Inhaler 2 puff INHALATION Q4H PRN (Reason: Wheezing) 0RF Deep Sea Nasal 0.65 % Aerosol,[place] 2 spray INTRANASAL Q4H PRN (Reason: dryness) 0RF Combivent Respimat 20-100 mcg/actuation mist 1 puff inhalation BID 0RF Eliquis 5 mg Tablet 5 mg PO BID Qty: 60 0RF furosemide 40 mg Tablet 40 mg PO DAILY Qty: 30 0RF Protocol: Hold for SBP< HOLD for SBP < : 90 ferrous sulfate 300 mg (60 mg iron)/5 mL Liquid 324 mg PO BID 0RF mirtazapine 15 mg tablet 1 tab PO BEDTIME 0RF Balmex Adult Care 11.3 % Cream 1 appl TOPICAL QSHIFT 0RF Minerin Creme Cream 1 appl TOPICAL QSHIFT 0RF Rx Instructions: BILATERAL LOWER EXTREMITY Edy 7-7-1.5 gram Powder In Packet 1 ea PO BID 0RF metoprolol tartrate 75 mg Tablet 75 mg PO BID 0RF sennosides [senna] 8.6 mg Tablet 8.6 mg PO DAILY PRN (Reason: Constipation) 0RF ondansetron HCl 8 mg Tablet 8 mg PO Q8H PRN (Reason: Nausea) 0RF prochlorperazine maleate 10 mg Tablet 10 mg PO Q8H PRN (Reason: Nausea) 0RF omeprazole 40 mg Capsule,Delayed Release(Dr/Ec) 40 mg PO BID 0RF calcium carbonate 500 mg calcium (1,250 mg) Tablet,Chewable 1,000 mg PO TIDWM 0RF metoclopramide HCl 10 mg Tablet 10 mg PO TIDAC 0RF oxycodone 10 mg Tablet 10 mg PO Q6H PRN (Reason: Pain) 0RF digoxin 250 mcg (0.25 mg) tablet 250 mcg PO DAILY 0RF Discontinued metformin 1,000 mg Tablet 1,000 mg PO BID 0RF Novolin R Regular U-100 Insuln 100 unit/mL Solution 1 sliding scale dose SUBCUT USEASDIRECTD 0RF Protocol: Insulin Correction Scale Less than or equal to 110 ---- Give (units): 0 111 to 150 Give (units): 0 151 to 200 Give (units): 2 201 to 250 Give (units): 4 251 to 300 Give (units): 6 301 to 350 Give (units): 8 Greater than 350 Give (units): 10 Call MD if Blood Glucose > : 350 Discharge Orders: Discharge Order (Routine); Ordered 03/31/22 Ordered By: Rony Hogan Diet: advance to usual diet Activity on Discharge: As tolerated Stand Alone Forms: Patient Portal Discharge page Care Plan Goals: Moving towards comfort care will follow at [facility] Concerns: As outlined in discharge summary Plan of Treatment: Continue current therapies with moved to change code status to DNR DNI/BATHHOUSE KEEPER of Assessment: As per discharge summary
[2022-03-31 12:57] LABS: Glucose, Whole Blood 71 mg/dL (60-115)
--- NOTE | 2022-03-31 13:22 | MHC.CM.PN ---
Patient has been medically cleared for dc today to return to LTC at [facility]. Patient will dc today at 3PM, via [facility]. CM has left a detailed message explaining the dc plan to Patient's Guardian/Akil @ [phone].
[2022-03-31 14:57] VITALS: BP 120/93; PULSE 70; RESP 18; TEMP 36.6; O2SAT 95
== END 2022-03-31 15:34 | DRG 682 ==
LOC: HO.ED 13:45 → HO.EDOVER 14:14 → HO.IMC 03-30 20:00
PROVIDERS: Admitting Provider Hospitalist; Emergency Provider Emergency Medicine; PCP Hospitalist; Visit Provider Hospitalist
DX: N17.9 Acute kidney failure, unspecified (principal); L89.153 Pressure ulcer of sacral region, stage 3; E87.1 Hypo-osmolality and hyponatremia; I48.0 Paroxysmal atrial fibrillation; G47.33 Obstructive sleep apnea (adult) (pediatric); E86.1 Hypovolemia; E83.51 Hypocalcemia; Z88.2 Allergy status to sulfonamides; Z88.8 Allergy status to other drugs, medicaments and biological substances; Z79.01 Long term (current) use of anticoagulants; Z79.899 Other long term (current) drug therapy
CPT/HCPCS: 36415; 80053; 82947; 84484; 85025; 87635; 93005; 96361; 96374; 99285; J0610; J2405